=== PATIENT | female | born 1985 | race Caucasian/White ===

== ENCOUNTER 2022-12-10 06:38 | Day surgery (SDC) | payer MEDICAID, SELFPAY ==
[2022-12-10 07:00] VITALS: BMI 22.2
[2022-12-10 07:10] VITALS: BP 101/70; PULSE 63; RESP 16; TEMP 36.3; O2SAT 100
[2022-12-10] MEDS: 0.9 % SODIUM CHLORIDE 500 ML 50 ML IV (07:18)
--- NOTE | 2022-12-10 08:01 | W.PM.PROCNOT ---
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 Post lesioning injection of 2 mL each of 0.25% Marcaine and 2% lidocaine with Depo-Medrol 40mg. 0.5 to 1 mL injected at each site IV in place yes If Intravenous fluids: NS at KVO Anesthesia local 2% lidocaine Anesthesia Other: MAC Timeout process compliant After informed consent obtained. Patient brought to the procedure room placed in the prone position skin overlying the area was prepped and draped in a sterile fashion using betadine. 25 gauge needle was used to create a skin wheal over each of the targeted areas utilizing 2% lidocaine. A rhizotomy needle with a 10 mm active tip was inserted over each of the anesthetized areas and directed towards four different areas in the distribution of the lateral cutaneous branches of the iliohypogastric nerve, accomplished under fluoroscopic guidance. After encountering the same we had positive sensory stimulation, negative motor stimulation was noted. lesions were then created. Post lesioning, steroid solution was injected needles removed. Patient was transferred to recovery room in stable condition to be discharged home after meeting criteria. Anesthesia: MAC Surgeon: Sharona Thompson Condition: stable
[2022-12-10] MEDS: METHYLPREDNISOLONE ACETATE 40 MG/ML VIAL INJ (08:07)
[2022-12-10] MEDS: LIDOCAINE HCL 2% 400 MG/20 ML MDV 15 ML INJ (08:08)
[2022-12-10] MEDS: BUPIVACAINE HCL 0.25% PF 25 MG/10 ML VIAL INJ (08:09)
[2022-12-10 08:18] VITALS: BP 94/66; PULSE 65; RESP 20; TEMP 36.3; O2SAT 99
[2022-12-10 08:22] VITALS: BP 103/67; PULSE 54; RESP 20; O2SAT 100
== END 2022-12-10 08:54 | disposition home or self-care (01) ==
PROVIDERS: Visit Provider Anesthesiology Pain Medicine
DX: G57.81 Other specified mononeuropathies of right lower limb (principal)
CPT/HCPCS: 64640; 77002; J1030; J2704

== ENCOUNTER 2023-01-16 08:56 | Outpatient (OUT) | payer MEDICAID, SELFPAY ==
--- NOTE | 2023-01-16 09:41 | PM.CN ---
Consult Note: HPI Data of Consult Patient: known to practice within the last 3 years Consult date: 01/16/23 Requesting Physician: LOYD FORTUNE NP Primary Care Provider: Non-Staff Physician, MD Consult Narrative Narrative: Patient is here for f/u of right [facility] RFA done on 12/10/22. She had 80% relief of pain with increased fx for after procedure and continued through today. Pain is in SI area. Still has nerve pain right leg, but states it is much improved. No new sensorimotor sx or bowel or bladder issues. No adverse medication SE. Medications assist patient with better ability to perform ADLs. cc:: CC: LOYD FORTUNE NP Review of Systems ROS Status of ROS 10 or more systems reviewed and unremarkable except as noted in history and below Musculoskeletal Reports: back pain PFSH PFS Medical History (Updated 01/16/23 @ 09:57 by LOYD FORTUNE NP) Surgical History Meds Home Medications and Allergies Home Medications Medication Instructions Recorded Confirmed Type baclofen 10 mg tablet 10 mg PO BID 12/04/22 12/10/22 History erenumab-aooe 70 mg/mL mg subcut .MONTH 12/04/22 History subcutaneous auto-injector (Aimovig Autoinjector) gabapentin 600 mg tablet 600 mg PO TID 12/04/22 12/10/22 History oxcarbazepine 300 mg tablet 150 mg PO .HS 12/04/22 12/10/22 History tizanidine 4 mg tablet 4 mg PO .HS 12/04/22 12/10/22 History tramadol 50 mg tablet 50 mg PO TID PRN pain 12/04/22 12/10/22 History Allergies Allergy/AdvReac Type Severity Reaction Status Date / Time adhesive Allergy Verified 12/10/22 07:03 Exam Constitutional Documenting provider has reviewed patient's vital signs: yes Common normals: no apparent distress, average body habitus, oriented x3, no limitations, healthy appearing, alert and well nourished General appearance: cooperative, comfortable and well developed Orientation/consciousness: Yes awake, Yes oriented to person, Yes oriented to place and Yes oriented to time HENMT Common normals: normocephalic and moist oral mucous membranes Respiratory Common normals: normal respiratory effort, no retractions and no use of accessory muscles Effort & inspection: able to speak in complete sentences and symmetric chest movement Back & Pelvis Lumbar spine/lower back: ROM limited, paraspinal muscle tenderness and paraspinal muscle spasm Other: negative vinicio mild facet loading pain lumbar area muscle strength 4/5 bilat with intact sensation, right side sensation slightly decreased Assessment and Plan Assessment and Plan (1) Lumbar radiculopathy: (2) Muscle spasm: Plan f/u in 3 months refill gabapentin narcan rx
== END 2023-01-16 08:57 | disposition home or self-care (01) ==
LOC: PM 08:57
PROVIDERS: Visit Provider Nurse Practitioner
DX: M54.16 Radiculopathy, lumbar region (principal); M62.838 Other muscle spasm
CPT/HCPCS: G0463

== ENCOUNTER 2023-04-17 07:54 | Outpatient (OUT) | payer MEDICAID, SELFPAY ==
--- NOTE | 2023-04-17 08:16 | PM.CN ---
Consult Note: HPI Data of Consult Patient: known to practice within the last 3 years Requesting Physician: Randi Potts NP Primary Care Provider: Non-Staff Physician, MD Consult Narrative Reason for consult: F/u Narrative: Emily Valiente a pleasant 37 year old female presents for evaluation and management of chronic pain. Today neck pain is 5/10 and experiencing numbness/tingling/weakness in right arm. Patient has been following with Dr Arambula post lumbar fusion and has PT ordered through him, is going to try massage and dry needling. Patient has not been able to tolerate daytime 300mg gabapentin due to brain fog and it interferes with work. Patient follows with neurology. cc:: CC: Randi Potts NP Review of Systems ROS Status of ROS 10 or more systems reviewed and unremarkable except as noted in history and below Musculoskeletal Reports: back pain and neck pain PFSH PFSH Medical History Low back pain ?M54.50 - Low back pain, unspecified (ICD-10) Neck pain ?M54.2 - Cervicalgia (ICD-10) Numbness and tingling ?R20.0 - Anesthesia of skin (ICD-10) ?R20.2 - Paresthesia of skin (ICD-10) Surgical History H/O breast augmentation ?Z98.82 - Breast implant status (ICD-10) H/O: hysterectomy ?Z90.710 - Acquired absence of both cervix and uterus (ICD-10) Hx of laparoscopy ?Z98.890 - Other specified postprocedural states (ICD-10) S/P T&A (status post tonsillectomy and adenoidectomy) ?Z90.89 - Acquired absence of other organs (ICD-10) Status post lumbar surgery ?Z98.890 - Other specified postprocedural states (ICD-10) Meds Home Medications and Allergies Home Medications Medication Instructions Recorded Confirmed Type baclofen 10 mg tablet 10 mg PO BID 12/04/22 12/10/22 History erenumab-aooe 70 mg/mL mg subcut .MONTH 12/04/22 History subcutaneous auto-injector (Aimovig Autoinjector) gabapentin 600 mg tablet 600 mg PO TID 12/04/22 12/10/22 History oxcarbazepine 300 mg tablet 150 mg PO .HS 12/04/22 12/10/22 History tizanidine 4 mg tablet 4 mg PO .HS 12/04/22 12/10/22 History tramadol 50 mg tablet 50 mg PO TID PRN pain 12/04/22 12/10/22 History Allergies Allergy/AdvReac Type Severity Reaction Status Date / Time adhesive Allergy Verified 12/10/22 07:03 Exam Constitutional Documenting provider has reviewed patient's vital signs: yes Common normals: no apparent distress, oriented x3, healthy appearing, alert and well nourished General appearance: cooperative HENMT Common normals: normocephalic, hearing grossly normal bilaterally and moist oral mucous membranes Head and scalp: normocephalic Eye Common normals: PERRL Pupil: PERRL Neck & C-Spine Common normals: full ROM General: normal visual inspection Cervical spine: paracervical muscle tenderness and trapezius muscle tenderness Other: right arm intermittent radiculopathy and numbness tingling Chest Common normals: inspection of chest normal Respiratory Common normals: normal respiratory effort, no retractions and no use of accessory muscles Back & Pelvis Lumbar spine/lower back: ROM limited, pain with ROM and straight leg raise negative bilaterally Sacroiliac joints: SI joint(s) abnormal Extremity Common normals: normal to inspection and full ROM Other: negative bilateral fabers, gaenslens, thigh thrust Extremity image (back): 1. muscle tightness and pain 2. muscle tightness and pain Neuro Common normals: oriented x3, CN's II-XII intact bilaterally, moves all extremities, no focal motor deficits, no sensory deficits noted and deep tendon reflexes 2+ bilaterally Sensorium/orientation: alert Motor exam: strength 5/5 throughout and no movement abnormalities noted Psych Common normals: mental status grossly normal, thought process normal, cooperative, affect normal, speech normal and activity/motor behavior normal Speech: normal speech Thought process: normal thought process Results Additional Findings Additional findings: I have checked an [facility] report on this patient today and there are no aberrancies noted in the prescribing history.?? A drug screen was completed and reviewed within the last year, and if there has not been a drug screen completed we ordered one today to monitor higher risk, state monitored pain medication use. As part of providing excellent, safe, comprehensive care, the following was completed at our patient's visit: 1. A medication reconciliation and review to ensure accurate knowledge of current/active medications, including asking our patients to inform us about any [id number] medications or herbal remedies/nutritional supplements/alternative remedies. 2. A review to specifically ensure our patients have had annual screening for: elevated body mass index (BMI), tobacco use, screening for depression, and screening for unhealthy alcohol use. When screening is concerning, patients are provided with education and the specific recommendation to discuss the concerning health issue and treatment options with their primary care provider. Assessment and Plan Assessment and Plan (1) Cervical radiculopathy: (2) Cervical spondylosis: (3) Cervical paraspinal muscle spasm: (4) Lumbar radiculopathy: (5) Muscle spasm: (6) Numbness and tingling: Plan change gabapenting to 100-200mg during the day, 300mg causes brain fog continue gabapentin 600mg HS cervical xray ordered continue PT through Dr Arambula f/u with Dr Thompson for cervical TPIs and discuss cervical injection therapy
== END 2023-04-17 07:55 | disposition home or self-care (01) ==
PROVIDERS: Visit Provider Nurse Practitioner
DX: M47.22 Other spondylosis with radiculopathy, cervical region (principal); M62.838 Other muscle spasm; M54.16 Radiculopathy, lumbar region; R20.0 Anesthesia of skin; R20.2 Paresthesia of skin
CPT/HCPCS: G0463

== ENCOUNTER 2023-04-29 13:50 | Outpatient (OUT) | payer MEDICAID, SELFPAY ==
--- NOTE | 2023-04-29 | CONS_ITS ---
CONSULTATION DATE: ??04/29/2023 HISTORY:? She returns today complaining of severe pain in her neck and shoulder area on the right side with pain radiating to her right upper extremity.? She reports this occurred initially approximately six months, but it has gradually increased to the point where it has altered her quality life, level of functioning and, at times, her sleep pattern.? She describes at least 7/10 pain, sharp in character, increased with activities such as lifting maneuvers, pushing, pulling maneuvers.? She reports progressive weakness of her right upper extremity, difficulty in opening jars of food and describes pain that wakes her up at night frequently.? She denies any change in her bowel and bladder habits and does report progressive numbness in her right upper extremity. EXAM:? Her examination is notable for patient having 3/5 strength involving the right deltoid, biceps and brachioradialis.? She has diminished right side reflex.? She had a positive Spurling?s sign.? She has no signs consistent with myelopathy involving the upper extremities.? This is also associated with myofascial spasm of the right trapezius and cervical paravertebral muscles.? IMPRESSION:? Our impression is patient appears to have pain secondary to right C5-C6 radiculopathy, unclear etiology.? RECOMMENDATIONS:? I recommend she undergo a cervical ARSEN without contrast to determine if there is a mechanical source for her signs and symptoms consistent with radiculopathy. As part of providing excellent, safe, comprehensive care, the following was completed at our patient's visit: 1. A medication reconciliation and review to ensure accurate knowledge of current/active medications, including asking our patients to inform us about any [id number] medications or herbal remedies/nutritional supplements/alternative remedies. 2. A review to specifically ensure our patients have had annual screening for: elevated body mass index (BMI, see intake chart for exact total), tobacco use, screening for depression, and screening for unhealthy alcohol use.? When screening is concerning, patients are provided with education and the specific recommendation to discuss the concerning health issue and treatment options with their primary care provider. PATRICK
--- NOTE | 2023-04-29 | CONS_ITS ---
PROCEDURE DATE: ??04/29/2023 PROCEDURE:? Trigger point injection right trapezius C5 and 6 level, in the office. PREOPERATIVE DIAGNOSIS:? Pain secondary to spasm right trapezius. POSTOPERATIVE DIAGNOSIS:? ?Pain secondary to spasm right trapezius. SOLUTION USED FOR INJECTION:? 2 mL of 2% lidocaine, 2 mL of 0.25% Marcaine and 10 mg of Kenalog, total of 5 mL, and 2 mL used for the injection at the site. IMMEDIATE COMPLICATIONS:? None. PROCEDURE:? After informed consent was obtained from the patient, placed in the sitting position.? Skin overlying the area was prepped with alcohol.? A 25 gauge 1 ?? needle was inserted over the most tender area, partially helped being identified by the patient, coinciding with the area of most severe spasm, at approximately C5 and C6 level.? Needle was inserted in this area, directed toward the same.? After having a positive twitch response, we injected a total of 2 mL of solution.? No indication of intravascular or intraneural or intrathecal needle tip placement or injection was noted throughout the procedure.? Patient reports reduction in pain symptoms post procedurally, once the needle was removed.? Transferred and discharged after meeting criteria. PATRICK
== END 2023-04-29 13:51 | disposition home or self-care (01) ==
LOC: PM 13:50
PROVIDERS: Visit Provider Anesthesiology Pain Medicine
DX: M62.838 Other muscle spasm (principal); M54.89 Other dorsalgia
CPT/HCPCS: 20552

== ENCOUNTER 2023-07-01 14:06 | Outpatient (OUT) | payer MEDICAID, SELFPAY ==
--- NOTE | 2023-07-01 | CONS_ITS ---
CONSULTATION DATE: 07/01/2023 TO: Dr. Ruben Barrientos CHIEF COMPLAINT: Includes bilateral lower back pain, leg pain worse on the right side. HISTORY: She reports the pain as being 5-7/10 pain, sharp in character, with a deep aching component, increased with activities such as standing, walking and performing transitioning maneuvers. She feels most comfortable in the semi- recumbent position. CURRENT MEDICATION: Includes gabapentin 300 mg in the morning and 600 mg at h.s., tizanidine 4 mg at h.s., baclofen 10 mg b.i.d., tramadol 50 mg t.i.d. and Trileptal 150 at h.s. She reports these medicines do improve her quality of life, level of functioning and sleep pattern, and she denies any significant side effects with the use of the same. EXAM: Notable for patient having hypoesthesia along the right L5 dermatome, weakness of the right EHL. Straight leg raise was equivocally positive at approximately 90 degrees. No clinical signs consistent with myelopathy with no involvement of the lower extremities. IMPRESSION: Our impression is patient with chronic pain secondary to post laminectomy syndrome, lumbar area, with right L5 radiculopathy. RECOMMENDATIONS: I recommend lumbar spine films with flexion/extension views. Will see the patient back in the office after she undergoes the imaging study. May consider possibly a lumbar epidural steroid injection versus possible consideration for spinal column stimulation. As part of providing excellent, safe, comprehensive care, the following was completed at our patient's visit: 1. A medication reconciliation and review to ensure accurate knowledge of current/active medications, including asking our patients to inform us about any [id number] medications or herbal remedies/nutritional supplements/alternative remedies. 2. A review to specifically ensure our patients have had annual screening for: elevated body mass index (BMI, see intake chart for exact total), tobacco use, screening for depression, and screening for unhealthy alcohol use. When screening is concerning, patients are provided with education and the specific recommendation to discuss the concerning health issue and treatment options with their primary care provider. PATRICK
== END 2023-07-01 14:07 | disposition home or self-care (01) ==
LOC: PM 14:06
PROVIDERS: Visit Provider Anesthesiology Pain Medicine
DX: M54.50 Low back pain, unspecified (principal); Z98.1 Arthrodesis status; M96.1 Postlaminectomy syndrome, not elsewhere classified; M54.16 Radiculopathy, lumbar region
CPT/HCPCS: 72114; G0463

== ENCOUNTER 2023-07-01 15:18 | Outpatient (OUT) | payer MEDICAID, SELFPAY ==
--- OUTSIDE RECORDS SUMMARY | 2023-07-01 15:25 | XMS_ITS | CCD ---
Author Name Unknown Address [address] [place] [address] Organization [facility] Care Team Providers Care Engineering Faculty Name Role Phone UNKNOWN, PROVIDER Admitting Unavailable UNKNOWN, PROVIDER Attending Unavailable UNKNOWN, PHYSICIAN Referring Unavailable UNKNOWN, PHYSICIAN Primary Care Unavailable Nancy Barrientos Primary Care Provider KATHY GHOSH Attending Unavailable NANCY BARRIENTOS Primary Care Unavailable Nancy BARRIENTOS Primary Care Physician [phone] Ric Tinoco Unavailable JOSEFA ., DR HERB Melgar Attending Unavailable RIVERO ., DR HERB Melgar Admitting Unavailable RIVERO ., DR HERB Melgar Consulting Unavailable MISC, DR MURRIETA Primary Care Unavailable LAKSHMIPATHY ., SHARONA Consulting Fide vailable MISC, DR MURRIETA Primary Care Unavailable LAKSHMIPATHY ., SHARONA Admitting Fide vailable LAKSHMIPATHY ., SHARONA Attending Fide vailable HALKER .LOYD Consulting Unavailable KELLY ., ISAURA Consulting Unavailable RIVERO ., DR HERB Melgar Attending Unavailable MISC, DR MURRIETA Primary Care Unavailable RIVERO ., DR HERB Melgar Admitting Unavailable LAKSHMIPATHY ., SHARONA Consulting Fide vailable MISC, DR MURRIETA Primary Care Unavailable LAKSHMIPATHY ., NARAMAYAATH Admitting Fide vailable LAKSHMIPATHY ., NARSIERRA Attending Fide vailable LAKSHMIPATHY ., SHARONA Consulting Fide vailable RIVERO ., DR HERB Melgar Admitting Unavailable MISC, DR MURRIETA Primary Care Unavailable KELLY ., ISAURA Consulting Unavailable RIVERO ., DR HERB Melgar Attending Unavailable RIVERO ., DR HERB Melgar Attending Unavailable RIVERO ., DR HERB Melgar Admitting Unavailable MISC, DR MURRIETA Consulting Unavailable MISC, DR MURRIETA Primary Care Unavailable RIVERO ., DR HERB Melgar Consulting Unavailable JOSEFA ., DR HERB Melgar Attending Unavailable MISShantel, DR MURRIETA Primary Care Unavailable JOSEFA ., DR HERB Melgar Consulting Unavailable JOSEFA ., DR HERB Melgar Admitting Unavailable ROBIN .ISAURA Consulting Unavailable ALYSIA PARK Attending Unavailable Filiberto Cramer Attending Unavailable Gudimella, Matt Attending Unavailable Gurick, Matt Attending Unavailable Nancy BARRIENTOS Attending Unavailable Anitra BARRIENTOS Attending Unavailable Gudimella, Matt Admitting Unavailable Gudimella, Matt Attending Unavailable Gudimella, Matt Referring Unavailable LEONEL, EBER JOSE Admitting Unavailable LEONEL EBER JOSE Attending Unavailable Lakshmipathy, Narendranath Admitting Unava ilable Lakshmipathy, Narendranath Attending Unava ilable Lakshmipathy, Narendranath Referring Unava ilable Filiberto Cramer Admitting Unavailable Filiberto Cramer Attending Unavailable Allergies Allergy Classification Reported Allergen(s) Allergy Type Date of Onset Reaction(s) Facility (1 source) Adhesive agent; Translations: [Unknown] Propensity to adverse reactions (disorder) [address] [facility] Repository (9 sources) Adhesive Tape; Translations: [Tape] Drug allergy Eruption of skin (disorder) [facility] (12 sources) Latex; Translations: [Latex] Drug allergy Unknown [facility] [employer] Other (3 sources) adhesive bandages Propensity to adverse reactions rash [facility] [employer] Other (1 source) Adhesive agent Drug allergy (disorder) 6 [facility] Repository Medications Current Medications Medication Drug Class(es) Dates Sig (Normalized) Sig (Original) Aimovig 140 MG/ML (2 sources) Aimovig 140 MG/M L as directed Subcutaneous Active Aimovig SureClick 70 mg/mL subcutaneous solution (1 source) Start: 02-01-2019 inject 140 mg by subcutaneous injection every month Aimovig SureClick 70 mg/mL subcutaneous solution 140 mg, SubCutaneous, qMonth, Refills(s) 0 Start Date: 02/01/19 Status: Ordered baclofen 10 mg oral tablet (7 sources) gamma-Aminobutyr ic Acid-ergic Agonist Start: 10-18-2021 take 0.5-1 tablets by mouth once daily baclofen 10 mg Tab See Instructions, take 1/2 - 1 tab po during the day, Refills(s) 0 Start Date: 10/18/21 Status: Ordered bifidobacterium infantis 4 mg oral capsule (4 sources) Start: 07-11-2020 take 1 capsule by mouth once daily Align 4 mg oral capsule 4 mg = 1 cap(s), Oral, Daily, Take after completing the Antibiotics course, # 28 cap(s), Refills(s) 0, Pharmacy: [id number], 168, cm, 07/11/20 8:27:00 EST, Height/Length Dosing, 64.1, kg, 07/11/20 8:27:00 EST, Weight Dosing Start Date: 07/11/20 Status: Ordered cetirizine hydrochloride 10 mg oral tablet (4 sources) Histamine-1 Receptor Antagonist Start: 11-23-2020 take 1 tablet by mouth once daily cetirizine 10 mg Tab 10 mg = 1 tab(s), Oral, Daily, # 90 tab(s), Refills(s) 1, Pharmacy: [id number], 168, cm, 07/11/20 8:27:00 EST, Height/Length Dosing, 64.1, kg, 07/11/20 8:27:00 EST, Weight Dosing Start Date: 11/23/20 Status: Ordered cyclobenzaprine hydrochloride 10 mg oral tablet (2 sources) Muscle Relaxant Start: 06-19-2018 take 1 tablet by mouth three times daily as needed for muscle spasms cyclobenzaprine 10 mg Tab 10 mg = 1 tab(s), Oral, TID, PRN for spasm, # 30 tab(s), Refills(s) 0, Muscle pain Start Date: 06/19/18 Status: Ordered 1 ml erenumab-aooe 70 mg/ml auto-injector (8 sources) Start: 02-01-2019 inject 140 mg by subcutaneous injection every month Aimovig SureClick 70 mg/mL subcutaneous solution 140 mg, SubCutaneous, qMonth, Refills(s) 0 Start Date: 02/01/19 Status: Ordered Aimovig 140 MG/M L as directed Subcutaneous Active Erenumab-aooe (AIMOVIG) 140 MG/ML SOAJ (1 source) Erenumab-aooe (AIMOVIG) 140 MG/ML SOAJ every 30 days 0 Active estradiol 1 mg oral tablet (12 sources) Estrogen Start: 06-19-20 take 1 tablet by mouth once daily Estrace 1 mg Tab 1 mg = 1 tab(s), Oral, Daily Start Date: 06/19/18 Status: Ordered fluticasone propionate 0.05 mg/actuat metered dose nasal spray (3 sources) Corticosteroid Start: 06-20-20 End: 06-27-19 take 2 spray(s) nasal route once daily Flonase 0.05 mg/inh Capulin 2 spray(s), Nasal, Daily for 7 day(s), 16 gm, Refill(s) 0, each nostril, [facility], 168, cm, 06/20/23 18:45:00 EST, Height/Length Dosing, 58.4, kg, 06/20/23 18:45:00 EST, Weight Dosing Start Date: 06/20/23 Stop Date: 06/27/23 Status: Ordered gabapentin 600 mg oral tablet (12 sources) Anti-epileptic Agent Start: 11-09-19 gabapentin 600 mg Tab Refills(s) 0 Start Date: 11/08/21 Status: Ordered Gabapentin 600 m g TAKE 2 TABLETS THREE TIMES A DAY Active take 4 capsules by m outh three times daily gabapentin (NEURONTIN) 300 MG capsule Ta ke 1,200 mg by mouth 3 times daily. 0 Active lamoTRIgine 25 mg oral tablet (2 sources) Mood Stabilizer, Anti-epileptic Agent Start: 08-22-2020 take 1 tablet by mouth twice daily Lamictal 25 mg Tab 25 mg = 1 tab(s), Oral, BID, # 180 tab(s), Refills(s) 1, Pharmacy: [employer] [facility], 168, cm, 07/11/20 8:27:00 EST, Height/Length Dosing, 64.1, kg, 07/11/20 8:27:00 EST, Weight Dosing Start Date: 08/22/20 Status: Ordered Start: 11-30-2019 take 1 tablet by jaden once daily lamoTRIgine (LAMICTAL) 25 MG tablet Take 25 mg by mouth daily 0 11/30/2019 Active loratadine 10 mg oral tablet (2 sources) Start: 02-23-2020 take 1 tablet by mouth once daily loratadine 10 mg Tab 10 mg = 1 tab(s), Oral, Daily, # 90 tab(s), Refills(s) 1, Pharmacy: [facility], 168, cm, 02/23/20 10:40:00 EDT, Height/Length Dosing, 65, kg, 02/23/20 10:40:00 EDT, Weight Dosing Start Date: 02/23/20 Status: Ordered Start: 11-30-2019 take 1 capsule by mo [facility] once daily loratadine (CLARITIN) 10 MG capsule Take 10 mg by mouth daily 0 11/30/2019 Active omeprazole 20 mg delayed release oral capsule (3 sources) Proton Pump Inhibitor take 1 capsule by mouth every twenty-four hours Omeprazole 20 MG 1 capsule Orally Once a day Active ondansetron 4 mg oral tablet (1 source) Serotonin-3 Receptor Antagonist Start: 07-10-19 21 take 1 tablet by mouth every six hours as needed for nausea ondansetron 4 mg Tab 4 mg = 1 tab(s), Oral, q6hr, PRN Nausea/Vomiting, # 10 tab(s), Refills(s) 0, Pharmacy: [facility], 168, cm, 07/10/20 13:24:00 EST, Height/Length Dosing, 62.1, kg, 07/10/20 13:24:00 EST, Weight Dosing Start Date: 07/10/20 Status: Ordered OXcarbazepine 300 mg oral tablet (12 sources) Anti-epileptic Agent Start: 11-25-19 21 take 1-2 tablets by mouth once daily at bedtime Trileptal 300 mg Tab See Instructions, take 1-2 tabs po qhs, Refills(s) 0 Start Date: 11/24/20 Status: Ordered Start: 02-22-2020 take 2 tablets by [facility] every twelve hours Trileptal 300 MG 2 tablet Orally Twice a day for 14 day(s) Feb, Active take 300 mg by mouth twice daily OXcarbazepine (TRILEPTAL PO) Take 300 mg by mouth 2 times daily 0 Active oxybutynin chloride 5 mg oral tablet (8 sources) Cholinergic Muscarinic Antagonist Start: 05-26-2020 take 1 tablet by mouth twice daily as needed oxybutynin 5 mg Tab 5 mg = 1 tab(s), Oral, BID, PRN for urinary discomfort, # 60 tab(s), Refills(s) 2, Pharmacy: [facility], 168, cm, 05/26/20 16:32:00 EST, Height/Length Dosing, 64, kg, 05/26/20 16:32:00 EST, Weight Dosing Start Date: 05/26/20 Status: Ordered take 1 tablet by mouth once jayce y oxybutynin (DITROPAN-XL) 5 MG extended release tablet Take 5 mg by mouth daily 0 Active pantoprazole 40 mg delayed release oral tablet (1 source) Proton Pump Inhibitor Start: 02-06-2021 take 1 tablet by mouth once daily 30 minutes before breakfast Protonix 40 mg Tab-EC 40 mg = 1 tab(s), Oral, Daily, Take 30 minutes before breakfast, # 30 tab(s), Refills(s) 5, Pharmacy: [facility], 168, cm, 07/11/20 8:27:00 EST, Height/Length Dosing, 64.1, kg, 07/11/20 8:27:00 EST, Weight Dosing Start Date: 02/06/21 Status: Ordered pregabalin 150 mg oral capsule (1 source) Start: 11-24-2020 take 1 capsule by mouth three times daily Lyrica 150 mg Cap 150 mg = 1 cap(s), Oral, TID, # 60 cap(s), Refills(s) 0 Start Date: 11/24/20 Status: Ordered Protonix 40 mg Tab-EC (3 sources) Start: 02-06-2021 take 1 tablet by mouth once daily 30 minutes before breakfast Protonix 40 mg Tab-EC 40 mg = 1 tab(s), Oral, Daily, Take 30 minutes before breakfast, # 30 tab(s), Refills(s) 5, Pharmacy: [facility], 168, cm, 07/11/20 8:27:00 EST, Height/Length Dosing, 64.1, kg, 07/11/20 8:27:00 EST, Weight Dosing Start Date: 02/06/21 Status: Ordered rimegepant 75 mg disintegrating oral tablet (1 source) Start: 01-25-2021 take 1 tablet under the tongue every other day Nurtec ODT 75 mg oral tablet, disintegrating 75 mg = 1 tab(s), SubLingual, Every other day, Refills(s) 0 Start Date: 01/25/21 Status: Ordered SUMAtriptan 100 mg oral tablet (4 sources) Serotonin-1b and Serotonin-1d Receptor Agonist Start: 11-24-2020 Imitrex 100 mg Tab See Instructions, 1 tab(s) at onset of migraine, may repeat in 2hrs, no more than 2 times a day and 2 times a wk prn migraine, Refills(s) 0 Start Date: 11/24/20 Status: Ordered tiZANidine 4 mg oral capsule (7 sources) Central alpha-2 Adrenergic Agonist Start: 10-18-2021 take 0.5-1 tablets by mouth once daily at bedtime Zanaflex 4 mg oral capsule See Instructions, take 1/2 - 1 tab po qhs, Refills(s) 0 Start Date: 10/18/21 Status: Ordered traMADol hydrochloride 50 mg oral tablet (3 sources) Opioid Agonist Start: 06-24-2023 take 1 tablet by mouth three times daily traMADOL 50 mg Tab 50 mg = 1 tab(s), Oral, TID, Refills(s) 0 Start Date: 06/24/23 Status: Ordered take 1 tablet by mouth three nereyda es daily traMADol (ULTRAM) 50 MG tablet Take 50 mg by mouth 3 times daily. 0 Active Completed/Discontinued Medications Medication Drug Class(es) Dates Sig (Normalized) Sig (Original) valACYclovir 1000 mg oral tablet (4 sources) Herpesvirus Nucleoside Analog DNA Polymerase Inhibitor, Herpes Simplex Virus Nucleoside Analog DNA Polymerase Inhibitor, Herpes Zoster Virus Nucleoside Analog DNA Polymerase Inhibitor Start: 01-18-2022 take 1 tablet by mouth twice daily valacyclovir 1 g Tab 1 gram = 1 tab(s), Oral, BID, # 60 tab(s), Refills(s) 2, Pharmacy: [facility], 168, cm, 11/08/21 9:50:00 EDT, Height/Length Dosing, 65.4, kg, 11/08/21 9:50:00 EDT, Weight Dosing Start Date: 01/18/22 Status: Ordered Start: 11-23-2020 take 1 tablet by jaden th twice daily valacyclovir 1 g Tab 1 gram = 1 tab(s), Oral, BID, # 60 tab(s), Refills(s) 2, Pharmacy: [facility], 168, cm, 07/11/20 8:27:00 EST, Height/Length Dosing, 64.1, kg, 07/11/20 8:27:00 EST, Weight Dosing Start Date: 11/23/20 Status: Ordered Start: 11-23-2020 take 1 tablet by jaden th twice daily valacyclovir 1 g Tab 1 gram = 1 tab(s), Oral, BID, # 60 tab(s), Refills(s) 2, Pharmacy: [facility], 168, cm, 07/11/20 8:27:00 EST, Height/Length Dosing, 64.1, kg, 07/11/20 8:27:00 EST, Weight Dosing Start Date: 11/23/20 Status: Ordered Problems Active Problems Problem Classification Problem Date Documented Da te Episodic/Chronic Esophageal disorders (18 sources) Gastroesophageal reflux disease; Translations: [Gastroesophageal reflux disease without esophagitis] 02-01-2019 Chronic Headache; including migraine (16 sources) Migraine; Translations: [Migraine variants] 03-31-2020 Chronic Intestinal infection (8 sources) Bacterial overgrowth syndrome 08-07-2020 Episodic Miscellaneous mental health disorders (8 sources) Chronic insomnia 08-17-2019 Chronic Nausea and vomiting (2 sources) Nausea 07-10-2020 Episodic Nonmalignant breast conditions (3 sources) Fibrocystic disease of breast; Translations: [Diffuse cystic mastopathy of right breast] Chronic Nonspecific chest pain (9 sources) Chest wall pain; Translations: [Atypical chest pain] 07-06-2019 Episodic Other acquired deformities (3 sources) Spondylolisthesis L5/S1 level; Translations: [Spondylolisthesis, lumbosacral region] Episodic Other acquired deformities (3 sources) Lumbar spondylolisthesis; Translations: [Spondylolisthesis, lumbar region] Episodic Other diseases of bladder and urethra (8 sources) 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 Other female genital disorders (3 sources) Dyspareunia due to non-psychogenic cause in the female; Translations: [Other specified dyspareunia] Chronic Other gastrointestinal disorders (2 sources) Abdominal bloating 07-11-2020 Episodic Other gastrointestinal disorders (16 sources) Alteration in bowel elimination 06-27-2020 Episodic Other gastrointestinal disorders (8 sources) Chronic constipation with overflow 08-07-2020 Episodic Other gastrointestinal disorders (2 sources) Diarrhea 07-10-2020 Episodic Other gastrointestinal disorders (8 sources) Fecal soiling co-occurrent and due to fecal incontinence 06-27-2020 Episodic Other gastrointestinal disorders (2 sources) Incontinence of feces 07-11-2020 Episodic Other nervous system disorders (3 sources) Chronic pain; Translations: [Other chronic pain] Chronic Other nervous system disorders (4 sources) Other specified mononeuropathies of right lower limb; Translations: [OTH SPEC MONONEUROPATH RT LOW LIMB] Onset: 3 Chronic Other nervous system disorders (5 sources) Other chronic pain; Translations: [OTHER CHRONIC PAIN] Onset: 2 Chronic Other nervous system disorders (8 sources) Sensory disorder of smell and/or taste 03-31-2020 Episodic Other nutritional; endocrine; and metabolic disorders (8 sources) 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 Other screening for suspected conditions (not mental disorders or infectious disease) (5 sources) Thyroid function tests abnormal; Translations: [Abnormal results of thyroid function studies] Onset: 3 Episodic Other skin disorders (7 sources) Foot callus 11-08-2021 Episodic Other upper respiratory disease (3 sources) Allergic rhinitis; Translations: [Allergic rhinitis, unspecified] Onset: 4 Chronic Other upper respiratory infections (16 sources) Acute frontal sinusitis 05-26-2020 Episodic Otitis media and related conditions (1 source) Acute secretory otitis media; Translations: [Other acute nonsuppurative otitis media, left ear] Onset: 3 Episodic Prolapse of female genital organs (3 sources) Uterine prolapse; Translations: [Uterovaginal prolapse, unspecified] Chronic Residual codes; unclassified (3 sources) History of elective breast augmentation; Translations: [Breast implant status] Chronic Residual codes; unclassified (8 sources) Chill 03-31-2020 Episodic Residual codes; unclassified (3 sources) History of hysterectomy for benign disease; Translations: [Acquired absence of both cervix and uterus] Episodic Residual codes; unclassified (3 sources) Family history of breast cancer; Translations: [Family history of malignant neoplasm of breast] Episodic Residual codes; unclassified (3 sources) Family history of malignant neoplasm of gastrointestinal tract; Translations: [Family history of malignant neoplasm of digestive organs] Episodic Residual codes; unclassified (3 sources) History of lumbar discectomy; Translations: [Other specified postprocedural states] Episodic Residual codes; unclassified (1 source) Other specified postprocedural states; Translations: [OTH SPECIFIED POSTPROCEDURAL STATES] Onset: 3 Episodic Residual codes; unclassified (1 source) Patient encounter status; Translations: [Other specified health status] Onset: 4 Episodic Residual codes; unclassified (1 source) Body mass index 20-24 - normal; Translations: [Body mass index (BMI) 21.0-21.9, adult] Onset: 4 Episodic Spondylosis; intervertebral disc disorders; other back problems (20 sources) Displacement of lumbar intervertebral disc without myelopathy; Translations: [Degeneration of lumbosacral intervertebral disc] Onset: 2 06-27-2020 Chronic Spondylosis; intervertebral disc disorders; other back problems (20 sources) Lumbar disc prolapse with radiculopathy; Translations: [Spinal stenosis of lumbar region] Onset: 1 Resolved: 2 06-27-2020 Episodic Thyroid disorders (3 sources) Thyrotoxicosis, unspecified without thyrotoxic crisis or storm; Translations: [Hyperthyroidism] Onset: 4 Chronic Unclassified (6 sources) Body mass index 20-24 - normal 05-26-2020 Unclassified (4 sources) LOW BACK PAIN, UNSPECIFIED; Translations: [LOW BACK PAIN, UNSPECIFIED] Onset: 2 Unclassified (2 sources) Patient encounter status 06-24-2023 Urinary tract infections (8 sources) Urinary tract infectious disease 05-26-2020 Episodic Viral infection (8 sources) Herpes simplex 02-01-2019 Episodic Past or Other Problems Problem Classification Problem Date Documented Da te Episodic/Chronic Other acquired deformities (2 sources) Spondylolisthesis, lumbosacral region; Translations: [Spondylolisthesis at L5-S1 level M43.17] Onset: 04-17-2021 Resolved: 12-28-2021 Episodic Pathological fracture (1 source) Pathological fracture, other site, initial encounter for fracture; Translations: [PATH FX OTH SITE INITIAL ENCOUNTER] Onset: 03-10-2022 Episodic Unclassified (1 source) Exposure to 2019 novel coronavirus; Translations: [Contact with and (suspected) exposure to COVID19] Unclassified (8 sources) None (qualifier value) 12-11-2012 Unclassified (16 sources) Onset: 09-23-2004 Resolved: 03-09-2013 12-29-2014 Comment on above: pi Unclassified (1 source) LOW BACK PAIN, UNSPECIFIED; Translations: [LOW BACK PAIN, UNSPECIFIED] Onset: 06-11-2022 Results Test Name Value Interpretation Reference Range Facility Physician Referralon 024 Physician Referral [id number] [facility] Consent for Treatmenton Consent for Treatment [id number]#[id number] [facility] US Thyroidon 06-27-2023 US Thyroid Exam Date/Time: 06/27/2023 07:55 EST Reason for Exam: Thyrotoxicosis, unspecified without thyrotoxic crisis or storm;Hyperthyroidi sm Report IMPRESSION: 6 X 3 X 4 MM RIGHT LOBE ANTERIOR UPPER POLE NODULE. 3 X 2 X 4 MM RIGHT LOBE POSTERIOR UPPER POLE NODULE. 3.9 X 2.4 X 2.1 CM LEFT LOBE POLE NODULE. CLINICAL HISTORY: Hyperthyroidism, Thyrotoxicosis, unspecified without thyrotoxic crisis or storm COMPARISONS: None available. FINDINGS: Biplanar images were obtained. The right lobe measures 5.3 cm x 1.4 cm x 1.8 cm with a volume of 6.8 cm3. The left lobe measures 5.2 cm x 2.1 cm x 2.4 cm with a volume of 13.6 cm3. The isthmus measures 0.5 cm. In the right lobe, anterior lower pole, a 6 x 3 x 4 mm mixed cystic and solid, anechoic, wider than tall, smoothly marginated, noncalcified nodule is identified (TR 2). In the right lobe, posterior upper pole a 3 x 2 x 4 mm mixed cystic and solid, anechoic, wider than tall, smoothly marginated, noncalcified nodule is identified (TR 2). In the left lobe, mid pole, a 3.9 x 2.4 x 2.1 cm mixed cystic and solid, isoechoic, taller than wide, ill-defined, noncalcified nodule is identified (TR 4). Ordering Provider: Matt Bass FINAL REPORT Dictated: 06/27/2023 11:42 am Cassius Ernst MD Signed (Electronic Signature): 06/27/2023 11:42 am Signed by: Cassius Ernst MD Transcribed by: YAMINI Technologist: FAISAL Price [facility] Family Medicine Office/Clini c Noteon 06-24-2023 Family Medicine Office/Clinic Note Chief Complaint Discuss thyroid HPI Staff Patient here today to discuss thyroid. Patient seen in convenient care 06/20/2023 for feeling of lump in throat, ear pain and had a abnormal thyroid exam. TSH: 0.07 mcIU/mL Low (06/21/23 08:25:00) Concerns: no new concerns Health Maintenance: Colonoscopy: 07/21/2020 Pap: hx of hysterectomy, pelvic exam utd Last Labs: 06/21/2023 History of Present Illness Jessica Griffiths is a 37-year-old female presenting today to discuss her thyroid. She was seen in convenient care on 06/20/2023 for feeling a lump in the throat, also experiencing ear pain. She had an abnormal thyroid exam. Her TSH was low at 0.07 mIU/L. She has no new concerns. The patient reports an earache, sore throat, and dental pain. She went to the dentist to rule out a tooth infection on 06/17/2023 She had a cavity filled today. The sore throat has been intermittent for weeks. She feels pain when she swallows. The pain radiates to her neck and underneath her ear. She has post nasal drip and a constant cough throughout the day. She denies sinus congestion, ear congestion, fullness, or crackling in her ears. She has a history of seasonal allergies. She has itchy eyes, runny eyes, and runny nose when there is temperature change. She denies changes in her hearing. She denies pain on swallowing both solids and liquids. She denies mumbling in her voice. She denies fever or chills. She experiences being dizzy while driving. She has neck and back issues. The dizzy spell was a week ago. She has hot flashes. She denies diarrhea or loose stools. She denies excessive sweating. She has a history of anxiety. She has heart palpitations. She denies burning in her chest or deep to the breast bone or in the upper abdomen. She was taking a magnesium supplement to help with her anxiety. She only took it for a week because she started getting a metallic taste in her mouth. She is not on any medication for acid reflux. She has tried ibuprofen for her back but discontinued due to GI tract issues while taking it. She was prescribed Flonase at urgent care. Review of Systems PHQ Score Initial Depression Screen Score: 1 SCORE Negative except as stated in HPI. Physical Exam Vitals & Measurements HR: 89(Peripheral) BP: 98/72 SpO2: 97% HT: 66 in HT: 168 cm WT: 59.4 kg WT: 130.68 lb BMI: 21.05 General: Alert. Not in acute cardiopulmonary distress. Well hydrated, well developed, well nourished. Respiratory: Spontaneous non-labored respirations. Symmetric chest expansion. Equal bilateral aeration. Clear to auscultation. No wheezing, rales or rhonchi. Cardiovascular: Heart sounds normal. No thrills. Regular rate and rhythm, no murmurs, rubs or gallops. Radial pulse 2+ bilaterally. Posterior tibial pulse 2+ bilaterally. Dorsalis pedis pulse 2+ bilaterally. Ear, Nose and Throat: There is a lump noted in the left inferior portion of the neck and it is tender and soft. Skin: Hands are slightly depigmented. Assessment/Plan 1. Hyperthyroidism (E05.90: Thyrotoxicosis, unspecified without thyrotoxic crisis or storm) I have ordered an EKG, an ultrasound of the thyroid, and a lipid panel. 2. Screening for endocrine, nutritional, metabolic and immunity disorder (Z13.29: Encounter for screening for other suspected endocrine disorder) I have ordered urinalysis. 3. Allergic rhinitis (J30.9: Allergic rhinitis, unspecified) I advised the patient to use Flonase 1 spray each nostril, 2 times a day. I have educated her on the proper use. 4. Non-smoker (Z78.9: Other specified health status) I advised to continue to refrain from smoking. 5. BMI 21.0-21.9, adult (Z68.21: Body mass index [BMI] 21.0-21.9, adult) I advised to follow healthy nutrition and lifestyle practices. I encourage to hold on physical activity at this time. Encounter for screening for diseases of the blood and blood-forming organs and certain disorders involving the immune mechanism (Z13.0: Encounter for screening for diseases of the blood and blood-forming organs and certain disorders involving the immune mechanism) Encounter for screening for nutritional disorder (Z13.21: Encounter for screening for nutritional disorder) Encounter for screening for other metabolic disorders (Z13.228: Encounter for screening for other metabolic disorders) Palpitations (R00.2: Palpitations) 37 minutes were spent reviewing the chart, talking to patient, face to face, dictating a note, placing orders and reviewing the chart. Portions of this record may have been created with voice recognition artificial intelligence software, specifically [employer]Span, KOWN and or Im[employer]. Substitutions may have occurred due to the inherent limitations of voice recognition and artificial intelligence software. Documentation services were performed after patient or guardian consented to allow [employer] to record this visit. D (more content not included)... Normal [facility] Comment on above: Result Comment: Elec tronically Signed By: Matt Bass MD\.br\Date and Time Signed: 06/24/23 18:25 EST\.br\Electronically Co-Signed By: Jaja Alex\.br\Date and Time Co-Signed: 06/24/23 18:04 EST T3 Freeon 06-22-2023 Free T3 [Mass/Vol] 4.2 pg/mL Invalid Interpretation Code 2.0-4.4 [facility] Comment on above: Result Comment: Perf ormed at: [facility] [address] [id number] PhD Mahnaz Conklin Performed By: #### 2 484167, 13368438, 3233604, 5437029 ####[address] [place] [address] Auto Diffon 06-21-2023 Basophils/100 WBC (Bld) 0.3 % Normal 0.0-2.0 [facility] Comment on above: Order Comment: Order Added by Discern Expert. Performed By: #### 2 846984, 6549522, 1864955, 25747505, 7255963 ####[facility] [address] [place] [address] Basophils/Leukocytes Auto (Bld) [Pure # fraction] 0.0 E9/L Normal 0.0-0.2 [facility] Comment on above: Order Comment: Order Added by Discern Expert. Performed By: #### 2 067101, 6783748, 8284072, 19171886, 5823548 ####[address] [address] Eosinophils/100 WBC (Bld) 0.6 % Normal 0.0-8.0 [facility] Comment on above: Order Comment: Order Added by Jay Expert. Performed By: #### 2 226942, 8494303, 5790407, 43965080, 3302047 ####[address] [address] Eosinophils/Leukocytes Auto (Bld) [Pure # fraction] 0.0 E9/L Normal 0.0-0.5 [facility] Comment on above: Order Comment: Order Added by Discern Expert. Performed By: #### 2 540101, 5033984, 0379270, 87533954, 7949069 ####[address] [address] Lymphocytes/100 WBC (Bld) 20.6 % Normal 14.0-50.0 [facility] Comment on above: Order Comment: Order Added by Discern Expert. Performed By: #### 2 534710, 6048823, 1370643, 18940361, 8581046 ####[address] [address] Lymphocytes/Leukocytes Auto (Bld) [Pure # fraction] 1.7 E9/L Normal 1.0-4.0 [facility] Comment on above: Order Comment: Order Added by Discern Expert. Performed By: #### 2 084655, 8136334, 8222297, 54495368, 7358259 ####[facility] [address] [place] [address] Monocytes/100 WBC (Bld) 6.6 % Normal 4.0-14.0 [facility] Comment on above: Order Comment: Order Added by Discern Expert. Performed By: #### 2 009361, 9501346, 2432321, 38825615, 8330795 ####[address] [place] [address] Monocytes/Leukocytes Auto (Bld) [Pure # fraction] 0.5 E9/L Normal 0.2-1.0 [facility] Comment on above: Order Comment: Order Added by Discern Expert. Performed By: #### 2 464053, 8365570, 0382174, 67421834, 4867926 ####[address] [address] Neutrophils/100 WBC (Bld) 71.9 % Normal 36.0-75.0 [facility] Comment on above: Order Comment: Order Added by Discern Expert. Performed By: #### 2 071558, 5330987, 1833159, 38432870, 9478731 ####[address] [address] Neutrophils/Leukocytes Auto (Bld) [Pure # fraction] 5.8 E9/L Normal 2.0-7.5 [facility] Comment on above: Order Comment: Order Added by Discern Expert. Performed By: #### 2 402773, 2899310, 3114907, 14646904, 8124639 ####[address] [place] [address] CBC w/ Auto Diffon 3 Erythrocyte distribution width (RBC) [Ratio] 12.6 % Normal 10.9-14.2 [facility] Comment on above: Performed By: #### 2 444254, 6642527, 6315187, 78385001, 8519752 ####[address] [address] Hematocrit (Bld) [Volume fraction] 37.8 % Normal 34.0-46.0 [facility] Comment on above: Performed By: #### 2 059600, 9938811, 0982767, 59406848, 8892096 ####[facility] [address] [place] [address] Hemoglobin (Bld) [Mass/Vol] 12.7 g/dL Normal 12.0-16.0 [facility] Comment on above: Performed By: #### 2 717249, 3207689, 8434207, 52405699, 8175244 ####[address] [address] MCH (RBC) [Entitic mass] 32.2 pg Normal 27.0-34.0 [facility] Comment on above: Performed By: #### 2 657787, 5979669, 8488999, 87474881, 3102694 ####[address] MCHC (RBC) [Mass/Vol] 33.8 g/dL Normal 31.4-36.0 [facility] Comment on above: Performed By: #### 2 923239, 0606885, 4272307, 60259355, 3207657 ####[address] [address] MCV (RBC) [Entitic vol] 95.5 fL Normal 80.0-100.0 [facility] Comment on above: Performed By: #### 2 831309, 3185010, 0832814, 83474150, 0874773 ####[address] [place] [address] Platelet mean volume (Bld) [Entitic vol] 8.5 fL Normal 6.4-10.8 [facility] Comment on above: Performed By: #### 2 816721, 3068536, 8832359, 95167063, 5296396 ####[address] [address] Platelets (Bld) [#/Vol] 303.0 E9/L Normal 150.0-500.0 [facility] Comment on above: Performed By: #### 2 391424, 5077497, 1801144, 02483085, 9559171 ####[facility] [address] [place] [address] RBC (Bld) [#/Vol] 4.0 E12/L Low 4.3-5.9 [facility] Comment on above: Performed By: #### 2 601263, 5759906, 9912109, 35942522, 4485018 ####[facility] [address] [place] [address] WBC corrected for nucl RBC Auto (Bld) [#/Vol] 8.1 E9/L Normal 4.0-11.0 [facility] Comment on above: Performed By: #### 2 369922, 0103251, 5839590, 09145981, 7412244 ####[facility] [address] [place] [address] CHEMISTRYOrdered By: SYSTEM SYSTEM on 06-21-2023 Albumin [Mass/Vol] 3.8 g/dL Normal 3.3 - 5.0 gm/dL Remisol Chem Albumin/Globulin [Mass ratio] 1.3 {ratio} Normal 1.1 - 2.2 Remisol Chem Alk Phos 83 [iU]/d Normal 21 - 98 Int._Unit/L Remisol Chem ALT 10 [iU]/d Normal 6 - 46 Int._Unit/L Remisol Chem Anion gap [Moles/Vol] 10 mmol/L Normal 6 - 16 mEq/L R emisol Chem AST 15 [iU]/d Normal 5 - 43 Int._Unit/L Remisol Chem Bili Total 0.5 mg/dL Normal 0.0 - 1.1 mg/dL Remisol Chem Calcium [Mass/Vol] 8.7 mg/dL Low 8.9 - 11. 1 mg/dL Remisol Chem Chloride [Moles/Vol] 103 mmol/L Normal 101 - 1 11 mmol/L Remisol Chem CO2 [Moles/Vol] 29 mmol/L Normal 21 - 31 mmol/L Remisol Chem Creatinine [Mass/Vol] 0.6 mg/dL Normal 0.5 - 1.3 mg/dL Remisol Chem eGFR mL/min/1.73 m2 Normal >=59mL/min/1. 73 m2 Remisol Chem Free T4 [Mass/Vol] 1.37 ng/dL Normal 0.58 - 1. 64 ng/dL Remisol Chem Globulin (S) [Mass/Vol] 3.0 g/dL Normal 1.4 - 4.0 gm/dL Remisol Chem Glucose [Mass/Vol] 84 mg/dL Normal 55 - 199 mg/dL Remisol Chem Potassium [Moles/Vol] 3.9 mmol/L Normal 3.5 - 5.3 mmol/L Remisol Chem Protein [Mass/Vol] 6.8 g/dL Normal 6.0 - 7.8 gm/dL Remisol Chem Sodium [Moles/Vol] 138 mmol/L Normal 135 - 145 mmol/L Remisol Chem T3 Uptake 46.6 % Normal 32.0 - 48.4 % Remisol Cori m T4 [Mass/Vol] 18.8 ug/dL High 4.6 - 9.1 mcg/dL Remisol Chem TSH Qn 0.07 m[IU]/L Low 0.34 - 5.60 mcIU/mL Remisol Chem Urea nitrogen [Mass/Vol] 13 mg/dL Normal 5 - 21 mg/dL Remisol Chem Urea nitrogen/Creatinine [Mass ratio] 22 mg/mg High 10 - 20 Remisol Chem CMPon 06-21-2023 Albumin [Mass/Vol] 3.8 g/dL Normal 3.3-5.0 [facility] Comment on above: Performed By: #### 2 547400, 6253985, 5577402, 53525869, 2262601 ####[facility] [address] [place] [address] Albumin/Globulin [Mass ratio] 1.3 {ratio} Normal 1.1-2.2 [facility] Comment on above: Performed By: #### 2 041216, 3179862, 0920750, 88823012, 9568507 ####[facility] [address] [place] [address] Alk Phos 83 Int._Unit/L Normal 21-[address] [facility] Comment on above: Performed By: #### 2 372871, 5922466, 6696967, 96470942, 5083317 ####[facility] [address] [place] [address] ALT 10 Int._Unit/L Normal 6-[address] [facility] Comment on above: Performed By: #### 2 316618, 8405684, 9485954, 39469882, 1781336 ####[facility] [address] [place] [address] Anion gap [Moles/Vol] 10 mmol/L Normal 6-16 [facility] Comment on above: Performed By: #### 2 997648, 1999842, 9868542, 17883651, 5167739 ####[facility] [address] [place] [address] AST 15 Int._Unit/L Normal 5-[address] [facility] Comment on above: Performed By: #### 2 510145, 7906160, 4277982, 73641161, 7106698 ####[facility] [address] [place] [address] Bili Total 0.5 mg/dL Normal 0.0-1.1 [facility] Comment on above: Performed By: #### 2 857581, 0920744, 8389465, 44147488, 7249310 ####[facility] [address] [place] [address] BUN/Creat Ratio 22 No Units High 10-20 [facility] Comment on above: Performed By: #### 2 761282, 5219761, 8634005, 26183504, 9841290 ####[facility] [address] [place] [address] Calcium [Mass/Vol] 8.7 mg/dL Low 8.9-11.1 [facility] Comment on above: Performed By: #### 2 414583, 1971639, 0880513, 99627231, 5266372 ####[facility] [address] [place] [address] Chloride [Moles/Vol] 103 mmol/L Normal 101-111 [facility] Comment on above: Performed By: #### 2 973675, 6910310, 2494686, 90084002, 1581641 ####[facility] [address] [place] [address] CO2 [Moles/Vol] 29 mmol/L Normal 21-31 [facility] Comment on above: Performed By: #### 2 869417, 6226875, 5394409, 73554565, 0564520 ####[facility] [address] [place] [address] Creatinine [Mass/Vol] 0.6 mg/dL Normal 0.5-1.3 [facility] Comment on above: Performed By: #### 2 952239, 4770228, 2644723, 09515364, 0534693 ####[facility] [address] [place] [address] Globulin (S) [Mass/Vol] 3.0 g/dL Normal 1.4-4.0 [facility] Comment on above: Performed By: #### 2 282525, 5691701, 5160063, 30053904, 6041068 ####[facility] [address] [place] [address] Glucose [Mass/Vol] 84 mg/dL Normal 55-199 [facility] Comment on above: Performed By: #### 2 661564, 1181041, 8844357, 88741713, 7502767 ####[facility] [address] [place] [address] Potassium [Moles/Vol] 3.9 mmol/L Normal 3.5-5.3 [facility] Comment on above: Performed By: #### 2 686214, 2355803, 3110926, 14338956, 2028599 ####[facility] [address] [place] [address] Protein [Mass/Vol] 6.8 g/dL Normal 6.0-7.8 [facility] Comment on above: Performed By: #### 2 836956, 9797055, 6858655, 36703133, 7320980 ####[facility] [address] [place] [address] Sodium [Moles/Vol] 138 mmol/L Normal 135-145 [facility] Comment on above: Performed By: #### 2 803916, 1956999, 7385744, 85105589, 5140252 ####[facility] [address] [place] [address] Urea nitrogen [Mass/Vol] 13 mg/dL Normal 5-21 [facility] Comment on above: Performed By: #### 2 380288, 1122823, 7348415, 76024623, 0297112 ####[facility] [address] [place] [address] Consent for Treatmenton 05-25 Consent for Treatment [id number]#[id number] Normal [facility] Free T4on 06-21-2023 Free T4 [Mass/Vol] 1.37 ng/dL Normal 0.58-1.64 [facility] Comment on above: Performed By: #### 2 998058, 8215099, 3038866, 00141199, 9222171 ####[facility] [address] [place] [address] HEMATOLOGYOrdered By: SYSTEM SYSTEM on 06-21-2023 Basophils/100 WBC (Bld) 0.3 % Normal 0.0 - 2.0 % [facility] HemeAutoSS Basophils/Leukocytes Auto (Bld) [Pure # fraction] 0.0 E9/L Normal 0.0 - 0.2 E9/L [facility]eAuto[facility] Eosinophils/100 WBC (Bld) 0.6 % Normal 0.0 - 8.0 % [facility] HemeAuto[facility] Eosinophils/Leukocytes Auto (Bld) [Pure # fraction] 0.0 E9/L Normal 0.0 - 0.5 E9/L [facility] Lymphocytes/100 WBC (Bld) 20.6 % Normal 14.0 - 50.0 % [facility] HemeAutoSS Lymphocytes/Leukocytes Auto (Bld) [Pure # fraction] 1.7 E9/L Normal 1.0 - 4.0 E9/L [facility]eAuto[facility] Monocytes/100 WBC (Bld) 6.6 % Normal 4.0 - 14.0 % [facility] HemeAutoSS Monocytes/Leukocytes Auto (Bld) [Pure # fraction] 0.5 E9/L Normal 0.2 - 1.0 E9/L [facility] Neutrophils/100 WBC (Bld) 71.9 % Normal 36.0 - 75.0 % [facility]eAuto[facility] Neutrophils/Leukocytes Auto (Bld) [Pure # fraction] 5.8 E9/L Normal 2.0 - 7.5 E9/L [facility] Heme[facility] HEMATOLOGYOrdered By: Petra Rowan on 06-21-2023 Erythrocyte distribution width (RBC) [Ratio] 12.6 % Normal 10.9 - 14.2 % [facility] Hematocrit (Bld) [Volume fraction] 37.8 % Normal 34.0 - 46.0 % [facility] Hemoglobin (Bld) [Mass/Vol] 12.7 g/dL Normal 12.0 - 16.0 gm/dL [facility] MCH (RBC) [Entitic mass] 32.2 pg Normal 27.0 - 34.0 pg [facility] MCHC (RBC) [Mass/Vol] 33.8 g/dL Normal 31.4 - 36.0 gm/dL [facility] MCV (RBC) [Entitic vol] 95.5 fL Normal 80.0 - 100.0 fL [facility] Platelet mean volume (Bld) [Entitic vol] 8.5 fL Normal 6.4 - 10.8 fL [facility] Platelets (Bld) [#/Vol] 303.0 E9/L Normal 150.0 - 500.0 E9/L [facility] RBC (Bld) [#/Vol] 4.0 E12/L Low 4.3 - 5.9 E12/L [facility] WBC corrected for nucl RBC Auto (Bld) [#/Vol] 8.1 E9/L Normal 4.0 - 11.0 E9/L [facility] Physician Orderon 06-21-2023 Physician Order [id number]#1.00TIFF Normal [facility] T3 Uptakeon 06-21-2023 T3 Uptake 46.6 % Normal 32.0-48.4 [facility] Comment on above: Performed By: #### 2 157005, 11401341, 3058665, 8378716 ####[facility] [address] [place] [address] T4 Totalon 06-21-2023 T4 18.8 microgram/dL High 4.6-9.1 [facility] Comment on above: Performed By: #### 2 956195, 39362097, 0702466, 1248331 ####[facility] [address] [place] [address] TSHon 06-21-2023 TSH Qn 0.07 m[IU]/L Low 0.34-5.60 [facility] Comment on above: Performed By: #### 2 949495, 52788065, 8473530, 4673289 ####[facility] [address] [place] [address] eGFRon 06-21-2023 GFR/1.73 sq M.predicted among non-blacks MDRD (S/P/Bld) [Vol rate/Area] mL/min/{1.73_m2} Normal >=59 [facility] Comment on above: Order Comment: Order added by Discern Expert. Performed By: #### 2 306320, 2258303, 7317937, 70302374, 3713124 ####[facility] [address] [place] [address] Family Medicine Office/Clini c Noteon 06-20-2023 Family Medicine Office/Clinic Note Chief Complaint left ear pain, swollen cheeks, facial pain, sore throat, lump in throat HPI Staff Jessica is a 37 year old female here for left ear pain that radiates into jaw and lump in throat, sore throat, cheeks are swollen, dizzy symptoms for a few weeks, getting worse was seen at the dentist for a tooth infection and they did not find anything History of Present Illness I have reviewed and verified the staff HPI to be accurate for this encounter. Portions of this record have been created with voice recognition software. Occasional wrong-word or ?dwhej-j-sglt? substitutions may have occurred due to the inherent limitations of voice recognition software. 37 yo female presents today with cc of left-sided ear pain. Patient states she has had intermittent left-sided ear pain which will radiate into the left side of her jaw. States this has been intermittent and ongoing for about 1 month. States it has been at least a month. States on occasion her cheeks seem to be swollen. She does note that she has noticed also a lump of the left side of the anterior throat. She states she was seen by her dentist earlier this week and they did not find anything as she was concerned maybe she had a dental infection. States that everything checked out okay there. She states she has not follow-up with primary care provider in regards to the symptoms in the last month as she states has been very difficult to get into see her primary care provider. Patient does know she has been working with her [employer] in regards to blood test and lab work related to fluctuations in hormones in regards to seeing if she is premenopausal or postmenopausal. States she has not had any recent lab work otherwise. She denies any sore throat or throat pain but states the lump of the left anterior throat states the left-sided ear pain and discomfort which she states has been more constant especially more irritating in the last 4 days. She denies any drainage from the left ear denies any runny stuffy nose cough or cold-like symptoms or recent illness. She denies any abdominal pain nausea vomiting or diarrhea. She did note an episode of dizziness in which she was wondering if is related to her ear discomfort and she states she felt her equilibrium was off. States it felt like she was almost drunk with room spinning dizziness. States that it only lasted a few seconds and resolved she denies any chest pain shortness of breath or difficulty breathing with dizziness denies any blurred vision double vision change in vision slurred speech weakness numbness or tingling of the extremities. She denies any fluctuations in regards to hot cold or weight loss states maybe she has lost some weight. But again is seeing [employer] in regards to these fluctuations denies any history of thyroid disease and does not believe she has ever had her thyroid checked. Denies any fever or chills with her onset of symptoms in the last several weeks. She has no other concerns at this time Review of Systems PHQ Score Initial Depression Screen Score: 0 SCORE ROS negative unless otherwise stated in HPI. Physical Exam Vitals & Measurements T: 36.7 ?C(Oral) HR: 96(Peripheral) BP: 122/76 SpO2: 98% HT: 66 in HT: 168 cm WT: 58.4 kg WT: 128.48 lb BMI: 20.69 General: Well developed, well nourished, in no acute distress Eyes: Bilateral conjunctiva within normal limits no injection Ears: Bilateral TMs are within normal limits no erythema or bulging. There is clear fluid behind bilateral TMs. Bilateral external auditory canals are within normal limits no erythema or edema Nose: No deformity, discharge, inflammation, or lesions Mouth: Moist mucous membranes. Uvula is midline. No tonsillar erythema or exudate. No signs of peritonsillar abscess. No trismus or drooling. Neck: Neck is supple. No palpable cervical lymphadenopathy. Trachea is midline. Concern for thyroid nodule of the left anterior neck with palpation of the thyroid. No acute tenderness. Area of concern is soft to touch seems to be freely movable. No overlying redness no red streaking or concern for cellulitis or infection. Lungs: Lung sounds are clear bilaterally. No wheezing rhonchi or crackles on exam Cardio: S1, S2, regular rhythm. No murmurs gallops or rubs Abdomen: not assessed Musculoskeletal: not assessed Extremity: not assessed Neurologic: not assessed Skin: No rashes, ulcerations, or suspicious lesions Mental Status: Alert and oriented x3. Normal mood and affect Assessment/Plan 1. Acute effusion of left ear (H65.192: Other acute nonsuppurative otitis media, left ear) Discussed with patient that there is no acute infection in regards to appearance of left eardrum. There is clear fluid behind the left TM and which may try something such as Flonase twice daily over the next 7 days to see if this helps eustachian tube dysfunction and fluid within the ears. Patient not have any acute viral like syndrome recently which I would like for her to follow closely with prim (more content not included)... Normal [facility] Comment on above: Result Comment: Elec tronically Signed By: Shoaib BRADSHAW, Filiberto Pete.br\Date and Time Signed: 06/20/23 21:08 EST Patient Educationon 06-20-20 Patient Education ENT Otitis Media With Effusion, Adult Otitis media with effusion (OME) is inflammation and fluid (effusion) in the middle ear without having an ear infection. The middle ear is the space behind the eardrum. The middle ear is connected to the back of the throat by a narrow tube (eustachian tube). Normally the eustachian tube drains fluid out of the middle ear. A swollen eustachian tube can become blocked and cause fluid to collect in the middle ear. OME often goes away without treatment. Sometimes OME can lead to hearing problems and recurrent acute ear infections (acute otitis media). These conditions may require treatment. What are the causes? OME is caused by a blocked eustachian tube. This can result from: ? Allergies. ? Upper respiratory infections. ? Enlarged adenoids. The adenoids are areas of soft tissue located high in the back of the throat, behind the nose and the roof of the mouth. They are part of the body's natural defense system (immune system). ? Rapid changes in pressure, like when an airplane is descending or during scuba diving. In some cases, the cause of this condition is not known. What are the signs or symptoms? Common symptoms of this condition include: ? A feeling of fullness in your ear. ? Decreased hearing in the affected ear. ? Fluid draining into the ear canal. ? Pain in the ear. In some cases, there are no symptoms. How is this diagnosed? A health care provider can diagnose OME based on signs and symptoms of the condition. Your provider will also do a physical exam to check for fluid behind the eardrum. During the exam, your health care provider will use an instrument called an otoscope to look in your ear. Your health care provider may do other tests, such as: ? A hearing test. ? A tympanogram. This is a test that shows how well the eardrum moves in response to air pressure in the ear canal. It provides a graph for your health care provider to review. ? A pneumatic otoscopy. This is a test to check how your eardrum moves in response to changes in pressure. It is done by squeezing a small amount of air into the ear. How is this treated? Treatment for OME depends on the cause of the condition and the severity of symptoms. The first step is often waiting to see if the fluid drains on its own in a few weeks. Home care treatment may include: ? Wmog-yrd-wqwsznd pain relievers. ? A warm, moist cloth placed over the ear. Severe cases may require a procedure to insert tubes in the ears (tympanostomy tubes) to drain the fluid. Follow these instructions at home: ? Take jhhw-ppu-gofqxpk and prescription medicines only as told by your health care provider. ? Keep all follow-up visits. Contact a health care provider if: ? You have pain that gets worse. ? Hearing in your affected ear gets worse. ? You have fluid draining from your ear canal. ? You have dizziness. ? You develop a fever. Get help right away if: ? You develop a severe headache. ? You completely lose hearing in the affected ear. ? You have bleeding from your ear canal. ? You have sudden and severe pain in your ear. These symptoms may represent a serious problem that is an emergency. Do not wait to see if the symptoms will go away. Get medical help right away. Call your local emergency services (911 in the [place] Do not drive yourself to the hospital. Summary ? Otitis media with effusion (OME) is inflammation and fluid (effusion) in the middle ear without having an ear infection. ? A swollen eustachian tube can become blocked and cause fluid to collect in the middle ear. ? Treatment for OME depends on the cause of the condition and the severity of symptoms. ? Many times, treatment is not needed because the fluid drains on its own in a few weeks. ? Sometimes OME can lead to hearing problems and recurrent acute ear infections (acute otitis media), which may require treatment. This information is not intended to replace advice given to you by your health care provider. Make sure you discuss any questions you have with your health care provider. Document Revised: 10/04/2021 Document Reviewed: 10/04/2021 [employer] Patient Education ? 2022 [employer] Endocrinology Thyroid Nodule A thyroid nodule is an isolated growth of thyroid cells that forms a lump in the thyroid gland. The thyroid gland is a butterfly-shaped gland found in the lower front of the neck. It sends chemical messengers (hormones) through the blood to all parts of the body. These hormones are important in regulating body temperature and helping the body use energy. Thyroid nodules are common. Most are not cancerous (are benign). You may have one nodule or several nodules. There are different types of thyroid nodules. They include nodules that: ? Grow and fill with fluid (thyroid cysts). ? Produce too much thyroid hormone (hot nodules or hyperthy (more content not included)... Normal [facility] MRI Spine Cervical w/o Contr elvira 06-10-2023 MRI Spine Cervical w/o Contrast Exam Date/Time: 06/09/2023 08:41 EST Reason for Exam: CERVICAL RADICULOPATHY Report IMPRESSION: THERE ARE MILD DEGENERATIVE CHANGES OF THE CERVICAL SPINE. EXAM: MRI Spine Cervical w/o Contrast DATE: 06/09/2023 7:58 AM CLINICAL HISTORY: CERVICAL RADICULOPATHY. CERVICAL RADICULOPATHY TECHNIQUE: Multiplanar multisequence images of cervical spine were obtained without IV contrast. COMPARISON: Cervical spine x-rays from 04/28/2023 FINDINGS: There is straightening of the lordotic curvature of the cervical spine which may be secondary to positioning versus muscle spasm. There is no acute fracture. There is preservation of the vertebral body heights. There is intervertebral disc desiccation and disc space narrowing at every level. The bone marrow signal is within normal limits. The cervical cord is normal in course and caliber without signal abnormality. The visualized portions of the posterior fossa are within normal limits There is no prevertebral soft tissue swelling. C2-C3: There is no disc herniation, central canal narrowing or neural foraminal narrowing. C3-C4: There is no disc herniation, central canal narrowing or neural foraminal narrowing. C4-C5: There is no disc herniation, central canal narrowing or neural foraminal narrowing. C5-C6: There is a less than 2 mm disc bulge flattening the thecal sac without significant narrowing of central canal. There is no neural foraminal narrowing C6-C7: There is a 2 mm disc bulge flattening the thecal sac without central canal. There is mild bilateral facet arthrosis and mild bilateral neural foraminal narrowing. Report C7-T1: There is no disc herniation, central canal narrowing or neural foraminal narrowing. Ordering Provider: Sharona Vasquez FINAL REPORT Dictated: 06/10/2023 10:16 am Jose Tatum MD, V. Signed (Electronic Signature): 06/10/2023 10:16 am Signed by: Jose Tatum MD, V. Transcribed by: YAMINI Technologist: CAPRI Technical Comments None Normal [facility] Consent for Treatmenton 05-23 Consent for Treatment [id number] B3#1.00TIFF Normal [facility] RAD - MRI Screening Formon 1 08-10-2022 RAD - MRI Screening Form [id number] 607#1.00TIFF [facility] Physician Orderon 06-03-2023 Physician Order [id number] 97#1.00TIFF [facility] Consent for Treatmenton Consent for Treatment [id number] 29#1.00TIFF [facility] Physician Orderon 04-28-2023 Physician Order [id number] 45#1.00TIFF [facility] XR Spine Cervical 4 or 5 Vie wson 04-28-2023 XR Spine Cervical 4 or 5 Views Exam Date/Time: 04/28/2023 10:01 EST Reason for Exam: Neck pain Report IMPRESSION: Mild to moderate degenerative change, cervical spine. Loss of cervical lordosis May BE secondary to degenerative change, patient positioning, or muscle spasm. CLINICAL HISTORY: Neck pain COMPARISON: NONE AVAILABLE FINDINGS: Routine five views of the cervical spine spine. Loss cervical lordosis with mild reversal, apex at C4-C5. Diffuse disc space narrowing C6-C7. No prevertebral soft tissue swelling. Neuroforamina are maintained bilaterally. No fracture, dislocation, bone lesion. Ordering Provider: , FINAL REPORT Dictated: 04/28/2023 4:28 pm Signer Cassius REES Signed (Electronic Signature): 04/28/2023 4:28 pm Signed by: Cassius Ernst MD Transcribed by: YAMINI Technologist: DIPTI Technical Comments Radiation Dose: Ka,r in mGy = na DAP = na Normal [facility] EMG Electromyographyon 01-21 EMG Electromyography [id number] 629#1.00CD:127 Normal [facility] Consultation Noteon 01-16-20 Consultation Note [id number] 77#1.00CD:127 Normal [facility] Auth for Release of Medical Recordson 12-17-2022 Auth for Release of Medical Records [id number] EC#1.00CD:127 Normal [facility] Consultation Noteon 11-16-19 Consultation Note [id number] EB#1.00CD:127 Normal [facility] EMG Electromyographyon 10-17 EMG Electromyography [id number] 24#1.00CD:127 Normal [facility] Consultation Noteon 10-08-19 Consultation Note [id number] 45#1.00CD:127 Normal [facility] Consultation Noteon 07-31-19 Consultation Note [id number] D9#1.00CD:127 [facility] XR lumbar spine AP/LAT/FLX/E XTon 12-28-2021 XR lumbar spine AP/LAT/FLX/EXT [facility] [place] [address] XRay Report Signed Patient: Jessica Griffiths MR#: [id number] : 1985 Acct:[id number] Age/Sex: 36 / F ADM Date: 12/28/21 Loc: XD Room: Type: [facility] Attending Dr: Ric Tinoco MD Copies to: Ric Tinoco MD Ordering Provider: Ric Tinoco MD Date of Service: 12/28/21 XR/XR lumbar spine AP/LAT/FLX/EXT: M43.17 Lumbar spine 4 views Reason for exam: Low back pain with left-sided sciatica. COMPARISON: Lumbar spine 04/17/2021. FINDINGS: Hardware fixation involving the lumbosacral junction without change in alignment or hardware complication. Vertebral body and remaining disc space heights appear maintained. No pathological motion on flexion or extension views. XR/XR lumbar spine AP/LAT/FLX/EXT IMPRESSION: No evidence of hardware complication. Impression dictated by: Malik Jenkins Jr., D.OJanie12/28/2021 1:49 PM Dictation Location: [place] [address] Transcribed By: [facility] 12/28/21 1349 Dictated By: Malik Jenkins Jr, DO 12/28/21 1347 Signed By: 12/28/21 1349 [facility] CHEMISTRYOrdered By: SYSTEM SYSTEM on 12-03-2021 Free T4 [Mass/Vol] 0.66 ng/dL Normal 0.58 - 1. 64 ng/dL FT Remisol Glucose post fast [Mass/Vol] 90 mg/dL Normal 55 - 99 mg/dL [facility] Remisol TSH Qn 2.54 m[IU]/L Normal 0.34 - 5.60 mcIU/mL [facility] Remisol Reference Laboratory Testing Ordered By: Generated DomainUser on 07-13-2021 SARS-CoV-2 (COVID-19) RNA KEITH+probe Ql (Resp) Not detected Invalid Interpretation Code Not Detected [facility] [employer] Comment on above: Result Comment: This nucleic acid amplification test was developed and its performance characteristics determined by [employer]. Nucleic acid amplification tests include RT-PCR and TMA. This test has not been FDA cleared or approved. This test has been authorized by FDA under an Emergency Use Authorization (EUA). This test is only authorized for the duration of time the declaration that circumstances exist justifying the authorization of the emergency use of in vitro diagnostic tests for detection of SARS-CoV-2 virus and/or diagnosis of COVID-19 infection under section 564(b)(1) of the Act, 21 U.S.C. 360bbb-3(b) (1), unless the authorization is terminated or revoked sooner. When diagnostic testing is negative, the possibility of a false negative result should be considered in the context of a patient's recent exposures and the presence of clinical signs and symptoms consistent with COVID-19. An individual without symptoms of COVID-19 and who is not shedding SARS-CoV-2 virus would expect to have a negative (not detected) result in this assay. Performed at: [facility] [id number] PhD aMhnaz Conklin XR lumbar spine AP/LAT/FLX/E XTon 04-17-2021 XR lumbar spine AP/LAT/FLX/EXT [facility] [place] [address] [place] [address] XRay Report Signed Patient: Jessica Griffiths MR#: [id number] : 1985 Acct:[id number] Age/Sex: 35 / F ADM Date: 04/17/21 Loc: XD Room: Type: [facility] Attending Dr: Ric Tinoco MD Ordering Provider: Ric Tinoco MD Date of Service: 04/17/21 XR/XR lumbar spine AP/LAT/FLX/EXT: M43.16 Copies to: Ric Tinoco MD XR lumbar spine AP/LAT/FLX/EXT 04/17/2021 2:01 PM SIGNS AND SYMPTOMS: Follow-up lumbar fusion. Numbness in right foot. PROTOCOLS: Frontal, lateral, and flexion-extension views of the lumbar spine COMPARISON: 11/14/2020 FINDINGS: The alignment, development and bony structures are normal. There is posterior fusion hardware at L5-S1. There is no fracture or destructive lesion. Flexion and extension view show no pathologic movement. There is mild intervertebral disc height loss at T12-L1 and L1-L2. The sacrum and sacroiliac joints are normal. XR/XR lumbar spine AP/LAT/FLX/EXT IMPRESSION: Posterior fusion hardware is noted at L5-S1 without hardware complications or malalignment. Mild disc degenerative changes are noted at the thoracic lumbar junction. No fracture, subluxation, or pathologic movement. Impression dictated by: Low Payne M.D.04/17/2021 5:07 PM Dictation Location: [facility]IO[facility]-11 Transcribed By: ERIC 04/17/211706 Dictated By: Low Payne II, MD 04/17/211705 Signed By: 04/17/211706 [facility] Vital Signs Date Time Vital Sign Value Performing Clinician Facility 06-24-2023 13:49-0500 Blood Pressure Location Matt Gudimella [facility] 06-24-2023 13:49-0500 Diastolic blood pressure 72 mm[Hg] Matt Gudimella [facility] 06-24-2023 13:49-0500 Heart rate 89 /min Matt Gudimella [facility] 06-24-2023 13:49-0500 SaO2% (BldA) [Mass fraction] 97 % Matt Gudimella [facility] 06-24-2023 13:49-0500 Systolic blood pressure 98 mm[Hg] Matt Gudimella [facility] 06-20-2023 18:43-0500 Blood Pressure Location Filiberto Shoaib [facility] 06-20-2023 18:43-0500 Body temperature 98.06 [degF] Filiberto Cramer [facility] 06-20-2023 18:43-0500 Diastolic blood pressure 76 mm[Hg] Filiberto Cramer [facility] 06-20-2023 18:43-0500 Heart rate 96 /min Filiberto Cramer [facility] 06-20-2023 18:43-0500 SaO2% (BldA) [Mass fraction] 98 % Filiberto Cramer [facility] 06-20-2023 18:43-0500 Systolic blood pressure 122 mm[Hg] Filiberto Cramer [facility] 12-28-2021 11:20-0400 Body height 167.64 cm Ric Tinoco Other [employer] Other 12-28-2021 11:20-0400 Body mass index (BMI) [Ratio] 21.14 kg/m2 Ric Tinoco Other [employer] Other 12-28-2021 11:20-0400 Body weight 59.42 kg Ric Tinoco Other [employer] Other 04-17-2021 15:40-0400 Body height 167.64 cm Ric Tinoco Other [employer] Other 04-17-2021 15:40-0400 Body mass index (BMI) [Ratio] 21.14 kg/m2 Ric Tinoco Other [employer] Other 04-17-2021 15:40-0400 Body weight 59.42 kg Ric Tinoco Other [employer] Other 05-31-2020 15:50-0500 Body weight 63.96 kg [facility] [place] 05-31-2020 15:50-0500 BP Diastolic 79 mm[Hg] [facility] [place] 05-31-2020 15:50-0500 BP Systolic 107 mm[Hg] [facility] [place] 05-31-2020 15:50-0500 Pulse (Heart Rate) 67 /min [facility] [place] 05-31-2020 15:50-0500 Pulse Oximetry 100 % [facility] , [place] 05-31-2020 15:50-0500 Respiratory Rate 20 /min [facility] [place] Encounters Encounter Date Encounter Type Care Provider Facility Start: 07-29-2023 ambulatory Nancy BARRIENTOS Facil ity: [place] Start: 06-27-2023 ambulatory [facility] Start: 06-27-2023 End: 06-28-2023 ambulatory Matt Gudimella Facility[facility] Start: 06-27-2023 End: 06-27-2023 Patient encounter procedure Matt Gudimella [facility] Start: 06-24-2023 End: 06-25-2023 ambulatory Matt Gudimella Facility:[facility] Start: 06-24-2023 End: 06-24-2023 Patient encounter procedure Matt Gudimella [facility] Start: 06-21-2023 End: 06-22-2023 ambulatory Filiberto Cramer Facility[facility] Start: 06-21-2023 End: 06-21-2023 Patient encounter procedure Filiberto Cramer [facility] Start: 06-20-2023 End: 06-21-2023 ambulatory Filiberto Cramer Facility: [place] Start: 06-20-2023 End: 06-20-2023 Patient encounter procedure Filiberto Cramer [facility] Start: 06-09-2023 End: 06-10-2023 ambulatory Narendranath Lakshmipathy Facility:[facility] Start: 06-09-2023 End: 06-09-2023 Patient encounter procedure Narendranath Lakshmipathy [facility] Start: 05-07-2023 End: 05-07-2023 ambulatory ALYSIA PARK Not Available Start: 04-28-2023 ambulatory Anitra BARRIENTOS Facility: [facility] Start: 04-28-2023 End: 04-29-2023 ambulatory EBER CASTANEDA Facility:[facility] Start: 04-28-2023 End: 04-28-2023 Patient encounter procedure EBER BLACKWELLDerek CASTANEDA [facility] Start: 11-05-2022 End: 11-06-2022 ambulatory SHARONA VASQUEZ . Facility:[facility] Start: 10-22-2022 End: 10-22-[address] DOCTOR ALEJANDRE Facility:[facility] Start: 10-01-2022 End: 10-02-2022 ambulatory ISAURA KELLY . Facility:[facility] Start: 08-27-2022 End: 08-27-2022 ambulatory Ric Tinoco Other [facility] [employer] Other Start: 08-27-2022 Telephone encounter Ric Tinoco [facility] Start: 06-11-2022 End: 06-12-[address] HERB RIVERO . Facility:[facility] Start: 05-28-2022 End: 05-28-[address] HERB RIVERO . Facility:[facility] Start: 03-05-2022 End: 03-06-[address] HERB RIVERO . Facility:[facility] Start: 12-28-2021 End: 12-28-2021 ambulatory Ric Tinoco Other [employer] Other Start: 12-28-2021 Office outpatient visit 15 minutes Ric Tinoco [facility] Start: 12-03-2021 End: 12-03-2021 Patient encounter procedure Alysia Park [facility] Start: 11-08-2021 End: 11-09-[address] HERB RIVERO . Facility:[facility] Start: 07-13-2021 End: 10-11-2021 Patient encounter procedure Nancy BARRIENTOS [facility] Start: 04-17-2021 Office outpatient visit 15 minutes Ric GRIMES [facility] Start: 05-31-2020 End: 05-31-2020 Emergency department patient visit KATHY GHOSH [facility] Start: 05-31-2020 End: 05-31-2020 Emergency department patient visit Kathy Ghosh Work Phone: [facility] ED Comment on above: Chest wall pain (Brunilda michelet Dx) Start: 12-30-2018 End: 01-07-2019 Patient encounter procedure PROVIDER UNKNOWN Facility:[facility] Procedures Date Procedure Procedure Detail Performing Clinician Start: 06-12-2020 Local anesthetic sac ral epidural block Nancy BARRIENTOS Comment on above: @ [facility] per pain mgmt Start: 05-31-2020 Ecg routine ecg w/le ast 12 lds w/i&r KATHY GHOSH Start: 05-31-2020 Ecg routine ecg w/le ast 12 lds w/i&r Kathy Ghosh Work Phone: Start: 12-06-2019 Interbody fusion of lumbar spine by anterior approach Nancy BARRIENTOS Comment on above: [facility] Start: 06-19-2018 Removal of sebaceous cyst Nancy BARRIENTOS Comment on above: Right inner thigh Start: 06-23-2006 Augmentation mammoplasty Nancy BARRIENTOS laparoscopy 4 Nancy HYDE Comment on above: 2014 Dr. Redd- endo metriosis lumbar microdisectomy 5 Chrmaria c BARRIENTOS Comment on above: 10/2017 Dr. Barnes @ [facility] 6 Nancy BIRCH Comment on above: per Dr. Glez 8 wisdom teeth extracted Ruben BARRIENTOS Plan of Treatment Date Care Activity Detail Author Start: 02-22-2020 [facility]enza [facility] 12 Lead ECG STAT 05/31/2020 4:01 PM EST [facility] Immunizations Immunization Date Immunization Notes Care Provider Fa ciliravinder 10-28-2020 COVID-19, mRNA, LNP-S, PF, 30 mcg/0.3 mL dose; Translations: [Pfizer-BioNTech COVID-19 Vaccine] Nancy BARRIENTOS [facility] Comment on above: Reason for Medicatio n: Prophylaxis 10-07-2020 COVID-19, mRNA, LNP-S, PF, 30 mcg/0.3 mL dose; Translations: [Pfizer-BioNTech COVID-19 Vaccine] [employer] Alliance[employer] BARRIENTOS [facility] Comment on above: Reason for Medicatio n: Prophylaxis 04-15-2020 influenza, injectable, quadrivalent, contains preservative Nancy BARRIENTOS [facility] 03-23-2018 influenza virus vaccine, unspecified formulation Nancy BARRIENTOS [facility] 03-10-2013 tetanus toxoid, reduced diphtheria toxoid, and acellular pertussis vaccine, adsorbed [employer] Alliance[employer] BARRIENTOS [facility] Comment on above: Reason for Medicatio n: Other (see comment) 10-13-2007 tetanus toxoid, reduced diphtheria toxoid, and acellular pertussis vaccine, adsorbed Filiberto Cramer [facility] 10-24-1999 hepatitis A and hepatitis B vaccine Filiberto Cramer [facility] 01-25-1998 measles, mumps and rubella virus vaccine Filiberto Cramer [facility] NEGATED: Highlighted row has not occurred!06-20-2023 influenza virus vaccine, unspecified formulation Filiberto Cramer [facility] Care Payers Date Payer Category Payer Medicaid [id number] 2006 Private Health Insurance [id number] 1985 Unknown [id number] 2.16.8 40.1.283405.3.579.2.647 1985 Unknown [id number] 2.16.84 0.1.404922.3.579.2.174 1985 Unknown [id number] 2.16.84 0.1.690498.3.579.2.593 1985 Unknown [id number] 2.16.84 0.1.749472.3.579.2.593 1984 Unknown [id number] 2.16.84 0.1.438066.3.579.2.593 1984 Unknown [id number] 2.16.84 0.1.413441.3.579.2.593 1984 Unknown [id number] 2.16.84 0.1.935343.3.579.2.593 1984 Unknown [id number] 2.16.84 0.1.170127.3.579.2.593 1984 Unknown [id number] 2.16.84 0.1.604641.3.579.2.593 1984 Unknown [id number] 2.16.840 .1.418476.3.579.2.1259 1984 Unknown [id number] 2.16.8 40.1.167732.3.579.2.727 1984 Unknown [id number] 2.16.8 40.1.354237.3.579.2.727 1984 Unknown [id number] 2.16.8 40.1.752366.3.579.2.727 1984 Unknown [id number] 2.16.8 40.1.990376.3.579.2.727 1984 Unknown [id number] 2.16.8 40.1.326315.3.579.2.727 1984 Unknown [id number] 2.16.8 40.1.503674.3.579.2.727 1984 Unknown [id number] 2.16.8 40.1.452699.3.579.2.727 1984 Unknown [id number] 2.16.8 40.1.932460.3.579.2.727 1984 Unknown [id number] 2.16.8 40.1.107946.3.579.2.727 1959 Private Health Insurance [id number] Social History Date Type Detail Facility Start: 05-31-2020 End: 06-24-2023 Tobacco smoking status NHIS Never smoker [facility] [place] Start: 05-31-2020 Tobacco use and exposure Never used [facility] [place] [facility] [place] Sex Assigned At Not on file [place], [place] Exposure to SARS-CoV -2 (event) Not sure [place], [place] Tobacco smoking status Never [facility] Sex Assigned At Female [employer] Other Functional Status Date Assessment Result Facility 06-24-2023 Functional Status N/A [facility] [place] 06-20-2023 Functional Status N/A [facility] Care Clinical Notes 04-17-2021 to 06-21-2023 LaboratoryLaboratory Note Date & Type Note Facility 06-21-2023 Evaluation + Plan note Diagnostic Tests PendingT3 Free 06/21/23 Future Scheduled TestsCBC w/ Auto Diff 06/20/23Comprehensive Metabolic Panel 06/20/23Free T4 06/20/23 [facility] 06-20-2023 Hospital Discharge instructions Patient Education 06/20/2023 21:07:29 Otitis Media With Effusion, Adult Otitis Media With Effusion, Adult Otitis media with effusion (OME) is inflammation and fluid (effusion) in the middle ear without having an ear infection. The middle ear is the space behind the eardrum. The middle ear is connected to the back of the throat by a narrow tube (eustachian tube). Normally the eustachian tube drains fluid out of the middle ear. A swollen eustachian tube can become blocked and cause fluid to collect in the middle ear. OME often goes away without treatment. Sometimes OME can lead to hearing problems and recurrent acute ear infections (acute otitis media). These conditions may require treatment. What are the causes? OME is caused by a blocked eustachian tube. This can result from: Allergies. Upper respiratory infections. Enlarged adenoids. The adenoids are areas of soft tissue located high in the back of the throat, behind the nose and the roof of the mouth. They are part of the body's natural defense system (immune system). Rapid changes in pressure, like when an airplane is descending or during scuba diving. In some cases, the cause of this condition is not known. What are the signs or symptoms? Common symptoms of this condition include: A feeling of fullness in your ear. Decreased hearing in the affected ear. Fluid draining into the ear canal. Pain in the ear. In some cases, there are no symptoms. How is this diagnosed? A health care provider can diagnose OME based on signs and symptoms of the condition. Your provider will also do a physical exam to check for fluid behind the eardrum. During the exam, your health care provider will use an instrument called an otoscope to look in your ear. Your health care provider may do other tests, such as: A hearing test. A tympanogram. This is a test that shows how well the eardrum moves in response to air pressure in the ear canal. It provides a graph for your health care provider to review. A pneumatic otoscopy. This is a test to check how your eardrum moves in response to changes in pressure. It is done by squeezing a small amount of air into the ear. How is this treated? Treatment for OME depends on the cause of the condition and the severity of symptoms. The first step is often waiting to see if the fluid drains on its own in a few weeks. Home care treatment may include: Txul-rwx-srsnkzl pain relievers. A warm, moist cloth placed over the ear. Severe cases may require a procedure to insert tubes in the ears (tympanostomy tubes) to drain the fluid. Follow these instructions at home: Take dbuh-xaf-owhbcgc and prescription medicines only as told by your health care provider. Keep all follow-up visits. Contact a health care provider if: You have pain that gets worse. Hearing in your affected ear gets worse. You have fluid draining from your ear canal. You have dizziness. You develop a fever. Get help right away if: You develop a severe headache. You completely lose hearing in the affected ear. You have bleeding from your ear canal. You have sudden and severe pain in your ear. These symptoms may represent a serious problem that is an emergency. Do not wait to see if the symptoms will go away. Get medical help right away. Call your local emergency services (911 in the [place] Do not drive yourself to the hospital. Summary Otitis media with effusion (OME) is inflammation and fluid (effusion) in the middle ear without having an ear infection. A swollen eustachian tube can become blocked and cause fluid to collect in the middle ear. Treatment for OME depends on the cause of the condition and the severity of symptoms. Many times, treatment is not needed because the fluid drains on its own in a few weeks. Sometimes OME can lead to hearing problems and recurrent acute ear infections (acute otitis media), which may require treatment. This information is not intended to replace advice given to you by your health care provider. Make sure you discuss any questions you have with your health care provider. Document Revised: 10/04/2021 Document Reviewed: 10/04/2021 [employer] Patient Education 2022 [employer]. 06/20/2023 19:03:16 Thyroid Nodule Thyroid Nodule A thyroid nodule is an isolated growth of thyroid cells that forms a lump in the thyroid gland. The thyroid gland is a butterfly-shaped gland found in the lower front of the neck. It sends chemical messengers (hormones) through the blood to all parts of the body. These hormones are important in regulating body temperature and helping the body use energy. Thyroid nodules are common. Most are not cancerous (are benign). You may have one nodule or several nodules. There are different types of thyroid nodules. They include nodules that: Grow and fill with fluid (thyroid cysts). Produce too much thyroid hormone (hot nodules or hyperthyroid). Produce no thyroid hormone (cold nodules or hypothyroid). Form from cancer cells (thyroid cancers). What are the causes? In most cases, the cause of thyroid nodules is not known. What increases the risk? The following factors may make you more likely to develop thyroid nodules: Age. Thyroid nodules are more common in people who are older than 45 years. Female gender. A family history that includes: ?Thyroid nodules. ?Pheochromocytoma. ?Thyroid carcinoma. ?Hyperparathyroidism. Certain thyroid diseases, such as Apolinar's thyroiditis. Lack of iodine in your diet. A history of head and neck radiation, such as from cancer treatments. Type 2 diabetes. What are the signs or symptoms? In many cases, there are no symptoms. If you have symptoms, they may include: A lump in your lower neck. Feeling pressure, fullness, or a tickle in your throat. Pain in your neck, jaw, or ear. Having trouble swallowing or breathing. Hot nodules may cause: Weight loss. Warm, flushed skin. Feeling hot. Feeling nervous. A rapid or irregular heartbeat. Cold nodules may cause: Weight gain. Dry skin. Hair loss, brittle hair, or both. Feeling cold. Fatigue. Thyroid cancer nodules may cause: Hard nodules that can be felt along the thyroid gland. Hoarseness. Lumps in the tissue (lymph nodes) near your thyroid gland. How is this diagnosed? A thyroid nodule may be felt by your health care provider during a physical exam. This condition may also be diagnosed based on your symptoms. You may also have tests, including: Blood tests to check how well your thyroid is working. An ultrasound. This may be done to confirm the diagnosis. A biopsy. This involves taking a sample from the nodule and looking at it under a microscope. A thyroid scan. This test creates an image of the thyroid gland using a radioactive tracer. Imaging tests such as an MRI or CT scan. These may be done if: ?A nodule is large. ?A nodule is blocking your airway. ?Cancer is suspected. How is this treated? Treatment depends on the cause and size of your nodule or nodules. If a nodule is benign, treatment may not be necessary. Your health care provider may monitor the nodule to see if it goes away without treatment. If a nodule continues to grow, is cancerous, or does not go away, treatment may be needed. Treatment may include: Having a cystic nodule drained with a needle. Ablation therapy. In this treatment, alcohol is injected into the area of the nodule to destroy the cells. Ablation with heat may also be used. This is called thermal ablation. Radioactive iodine. In this treatment, radioactive iodine is given as a pill or liquid that you drink. This substance causes the thyroid nodule to shrink. Surgery to remove the nodule or nodules. Part or all of your thyroid gland may also need to be removed. Medicines to treat hyperthyroidism. Follow these instructions at home: Pay attention to any changes in your thyroid nodule or nodules. Take drba-vct-ngdcyse and prescription medicines only as told by your health care provider. Keep all follow-up visits. This is important. Contact a health care provider if: You have trouble sleeping. You have muscle weakness. You have significant weight loss without changing your eating habits. You feel nervous. You have trouble swallowing. You have increased swelling. You have a rapid or irregular heartbeat. Get help right away if: You have chest pain. You faint or lose consciousness. Your nodule makes it hard for you to breathe. These symptoms may be an emergency. Get help right away. Call 911. Do not wait to see if the symptoms will go away. Do not drive yourself to the hospital. Summary A thyroid nodule is an isolated growth of thyroid cells that forms a lump in your thyroid gland. Thyroid nodules are common. Most are not cancerous. Your health care provider may monitor the nodule to see if it goes away without treatment. If a nodule continues to grow, is cancerous, or does not go away, treatment may be needed. Treatment depends on the cause and size of your nodule or nodules. This information is not intended to replace advice given to you by your health care provider. Make sure you discuss any questions you have with your health care provider. Document Revised: 04/22/2022 Document Reviewed: 04/22/2022 [employer] Patient Education 2022 [employer]. Follow Up Care 06/20/2023 07:23:01 With:Nancy BARRIENTOS MD, FAM Address: [address] [place] [id number] When: Unknown [facility] 06-20-2023 Evaluation + Plan note Future Scheduled TestsT4 Total 06/20/23CBC w/ Auto Diff 06/20/23Comprehensive Metabolic Panel 06/20/23T3 Free 06/20/23T3 Uptake 06/20/23Thyroid Stimulating Hormone 06/20/23Free T4 06/20/23 [facility] 10-01-2022 Note CONSULTATION CONSULTATION DATE: 10/01/2022 TO: Ruben Barrientos M.D. HISTORY: Patient presents today complaining of pain in her right hip area, described as a burning, sharp pain, rated 5-7/10 in severity, increased with activity such as light touch. She also reports standing, walking and performing transitioning maneuvers are quite uncomfortable. She feels most comfortable in the semi-recumbent position. She denies any change in bowel and bladder habits or new sensorimotor changes in the lower extremities. EXAM: Her examination is notable for the patient having dysesthesia and hyperesthesia long the distribution of the lateral cutaneous branch of the iliohypogastric nerve on the right side. She has associated myofascial spasm of the right gluteus medius. IMPRESSION: Patient appears to have chronic pain status post successful lumbar decompression stabilization at L5-S1 with residual myofascial dysfunction involving the right gluteus medius and possible neuritis involving the lateral cutaneous branch of the iliohypogastric nerve on the right side. RECOMMENDATIONS: I have recommended she undergo an EMG nerve conduction velocity study of her lower extremities bilaterally. I have asked her to consider a diagnostic nerve injection on the right side of the lateral cutaneous branch of the iliohypogastric nerve under fluoroscopic guidance. We did discuss her use of gabapentin and Trileptal as well as baclofen and tizanidine. At some point in the future, we will and streamline some of these medications. She is in agreement with the plan. As part of providing excellent, safe, comprehensive care, the following was completed at our patient's visit: 1. A medication reconciliation and review to ensure accurate knowledge of current/active medications, including asking our patients to inform us about any nsoc-ckq-wuzmhec medications or herbal remedies/nutritional supplements/alternative remedies. 2. A review to specifically ensure our patients have had annual screening for: elevated body mass index (BMI, see intake chart for exact total), tobacco use, screening for depression, and screening for unhealthy alcohol use. When screening is concerning, patients are provided with education and the specific recommendation to discuss the concerning health issue and treatment options with their primary care provider. [facility] 06-11-2022 Note CONSULTATION CONSULTATION DATE: 06/11/2022 CHIEF COMPLAINT: Low back pain, right leg tingling/numbness. HISTORY OF PRESENT ILLNESS: This is a 36-year-old female who is known to the Pain Clinic. We performed a diagnostic lumbar medial branch block on the right hand side, at the level of L4, L5, S1, where the patient has had a fusion. The patient continued to have low back pain. Physical examination at that time was the patient was extremely tender. She rates the pain as a 5/10, a dull, throbbing ache. She also describes a numbness sensation in the anterior region of her right leg. Sitting mitigates the pain. Standing, walking, housework, activities, bending, ADLs aggravate the pain. The patient takes baclofen 10 mg b.i.d., tizanidine 2-4 mg q.h.s., gabapentin 600 mg b.i.d., tramadol 50 mg t.i.d., Trileptal 300 mg q.h.s. The patient has been getting increased baclofen and tizanidine from Dr. Ruben Barrientos. The patient's PAST MEDICAL HISTORY / SURGICAL HISTORY / REVIEW OF SYSTEMS are noted on the chart, along with the MEDICATION LIST / ALLERGIES and RADIOLOGICAL IMAGES. PHYSICAL EXAM: Upon physical examination, this is a pleasant, cooperative female, who does not appear to be in any acute distress. VITAL SIGNS: Stable at 114/77, with a heart rate of 82. At a height of 5'6 , the patient weighs 62 kg. FOCUSED EVALUATION - HEAD: Atraumatic, normocephalic.. NECK: No guarding is noted. HEART: Negative orthopnea. LUNGS: Negative dyspnea. ABDOMEN: Soft, non-distended. BACK: Improvement in the patient's lumbar lordosis was noted. Gentle palpation along the posterior elements at the level of L5-S1, L4-L5 were not algogenic in and of themselves, where the patient in the previous visit had a significant jump response. EXTREMITIES: No pedal edema. MUSCULOSKELETAL: Intact in the lower extremities at 5/5 bilaterally. NEUROLOGICALLY: Hypoesthesia along the L5 distribution. PSYCHIATRICALLY: Affect is appropriate. IMPRESSION: Chronic low back pain, status post lumbar fusion, post surgical lumbar neuritis, radiculitis along L5. No motor dysfunction noted. PLAN: Education was done with regards to the risks/benefits, including options were given where intervention along the scar tissue could be done; however, would not recommend this to the patient, given the risk/benefit ratio. In addition to this, the patient is not a good a candidate for a dorsal column stimulator at this time. The patient is functioning very well. We maintained that the patient maintain a gentle stretching methodology with an inversion table, approximately 10-15 degrees. The patient understands and concurs. CC: Nancy Barrientos M.D. [facility] 03-05-2022 Note PAIN MANAGEMENT CONS ULTATION CONSULTATION DATE: 03/05/2022 HISTORY OF PRESENT ILLNESS: This is a 36-year-old female who is known to the Pain Clinic. The patient had undergone a lumbar fusion for anterolisthesis of L5 on S1. The patient has L5-S1 fused with posterior hardware. The patient also, in the past, had a radiculopathy with a clear cut deficit along the nerve. The patient post surgically states that she continues to have pain along her right lower extremity along the L5 distribution. Of note is the fact that the patient had an MRI performed on 10/09/2020, which shows a mildly displaced fracture of the right S1 posterior articular process. However, no overt extreme edema was seen along the surgical site. The patient states activities such as twisting, pushing, riding in a car for any length of time aggravates the pain, as does housework, lifting, bending, climbing stairs. Lying down on her side or sitting in her recliner mitigates the patient's pain symptomatology. The patient takes baclofen 10 mg on a daily to b.i.d. basis and tizanidine 4 mg h.s., gabapentin 600 mg on a b.i.d. basis, tramadol 50 mg t.i.d. The patient also takes Trileptal 300 mg h.s. as prescribed by LISBETH. The patient's PAST MEDICAL HISTORY / SURGICAL HISTORY / REVIEW OF SYSTEMS are noted on the chart, along with the MEDICATION LIST, ALLERGIES and RADIOLOGICAL IMAGES, including the x-ray that was reviewed in office today. The MRI was not available. PHYSICAL EXAMINATION: GENERAL APPEARANCE: Upon physical examination, this is a pleasant, cooperative female, who does not appear to be in any acute distress. She is endomorphic in structure. VITAL SIGNS: 115/82 with a heart rate of 70. At a height of 5'6 , the patient weighs 141 kg. FOCUSED EVALUATION - EXTREMITIES: Decreased tonus of the muscles is present; however, this is to baseline. No pedal edema. MUSCULOSKELETAL: Intact in the lower extremities at 4+/5. NEUROLOGICALLY: Hypoesthesia is present along the L5 distribution on the right hand side. PSYCHIATRICALLY: Affect is appropriate; however, the patient appears to be tired of the chronicity of the pain. BACK: With regards to her low back, no overt paravertebral spasming is present; however, significant jump response was noted by the patient upon mild extension, compression and palpation along the L5-S1 articular process. IMPRESSION: Current working diagnosis on the patient is post surgical lumbar radiculitis, neuritis L5 on the right hand side, lumbar spondylosis. MRI defined mildly displaced fracture along the S1 superior articular process. PLAN: Given the chronicity of this pathology, I would like to perform a diagnostic lumbar posterior element block at the level of the L5-S1. To cover the complete region, I would like to include the medial branch of L4 on the right hand side. Once again, this would be for the diagnostic purposes. The architecture will have been modified, given the fact that the patient has had a lumbar fusion at this site. However, the patient's physical examination was severe and her focus was intense at that site. Should we find the diagnostic block helpful, the patient would be a candidate for a rhizotomy along this region. CC: Dr. Barrientos [facility] 12-28-2021 Evaluation note Encounter Date Diagnosis Assessment Notes Dec, Spinal stenosis of lumbar region with neurogenic claudication (ICD-10 - M48.062) Dec, Spondylolisthesis at L5-S1 level (ICD-10 - M43.17) This is a patient who initially presented with chronic low back and leg pain for several years with no benefit with microdiscectomy and had moderate degenerative disc disease and some narrowing and retrolisthesis at L5-S1. She underwent an anterior lumbar interbody fusion. Placement of the right L5 screw resulted in a possible injury to the L5 nerve. The patient woke with unusual numbness of the right foot and slight weakness; the weakness improved over time, but the numbness has persisted. Patient's been quite functional but unfortunately she still has bilateral leg symptoms and chronic low back pain. She is on gabapentin 600mg 3 times daily which tends to help with the symptomatology as well as Trileptal. I suggested to the patient today who remains quite stable that she #1 she get a back x-ray so we could review it and consider placement of a dorsal column stimulator for helping her chronic right radicular discomfort and some of her low back pain. Showed the patient on a cell phone how to look up information on this subject. I have given her a referral to Dr. Summers.for further discussion of this I will follow her up on an as-needed basis [employer] Other 06-13-2022 Evaluation + Plan note Diagnostic Tests Pending * Insulin Level Total 12/03/21 * T3 Free 12/03/21 * FSH Level 12/03/21 Future Scheduled Tests Laboratory* [place] [place] [facility]05-19[facility]2022 NoteCONSULTATION CONSULTATION DATE: 11/08/2021 This is a pleasant 36-year-old female who returns to the clinic for a 3-month follow-up for her chronic neck pain. She does see Dr. Arambula in [facility] and she did receive right-sided neck and trigger points three weeks ago. She stated she had some relief that was not long-lasting. She does have a history of chronic lower back pain as well which she does plan on seeing Dr. Damon in [place] for. Activities that aggravate her neck are twisting, pulling, sitting, lifting and housework. She does use heat which decreases the pain. Current medications are Baclofen 10 mg q.h.s., gabapentin 600 mg t.i.d., Tramadol and Trileptal. Today she is not in need of refills. Her neck pain is worse with lateral rotation. She does have radicular pain to right arm to the level of the thumb. REVIEW OF SYSTEMS, PAST MEDICAL HISTORY, ALLERGIES AND IMAGES: Have been reviewed and noted in the chart. PHYSICAL EXAM: VITAL SIGNS: Blood pressure 109/80, heart rate is 82, temperature is 97.5. Height is 170 cm, weighs 65 kg. GENERAL APPEARANCE: Pleasant, appropriate and in no acute distress sitting in the chair. FOCUSED EXAM: NECK: Range of motion is guarded in right lateral rotation. The patient is functional in flexion and extension but with increased pain symptomatology. Reproduction of spinoaxial pain to direct compression along the cervical facets of C3, C4 and C5, C6 that radiate to the right shoulder. MUSCULOSKELETAL: Motor is intact to upper extremities, 4 out of 5 bilaterally. Gross and fine motor movement is intact. NEUROLOGICAL: Patchy hypesthesia noted along the C6 dermatome to the right. Plus 1 brachioradialis bilaterally. DIAGNOSIS: Cervical degenerative, cervical spondylosis, cervicalgia, cervical neuritis. PLAN: We will gain authorization to move forward with #1 bilateral MBB to C3, C4 and C5, C6 pending insurance authorization. The patient has experienced insurance difficulties in the past and will only move forward if pain is confirmed. She was encouraged to add magnesium gluconate 400 mg q. day to her regimen as well as using a heat rub mixed with Voltaren gel. She will be followed in the office post injection. The patient agrees with plan of care and would like to proceed. [facility] Signed and Approved by: ISAURA KELLY . 11/12/2021 15:05:00[facility]01-21-2022 Evaluation + Plan note Future Scheduled Tests Laboratory* [place] [place]21 [facility]10-26-2021 Evaluation note* Encounter Date Diagnosis Assessment Notes Treatment Notes Treatment Clinical Notes Mar, Spondylolisthesis at L5-S1 level (ICD-10 - M43.17) I answered a number of questions for the patient. I think a transforaminal injection may be beneficial. I also believe that she could potentially benefit from a dorsal column stimulator. She is seeing a another neurologist at [facility] and I am interested in what medication changes are made. I will see the patient again in 3 months and review this with her. I looked at the picture of the spine today she has good bone formation and her SKYE hardware is intact. Because of the persistent back pain and some right leg pain I did bring up the possibility of removing hardware. I am ambivalent about the overall possibility of improvement; it may help but then again it may not. The patient will think it over and we will discuss it again in 3 months. Mar, Spinal stenosis of lumbar region with neurogenic claudication (ICD-10 - M48.062) [employer] Other evaluation + Plan note Future Appointments Appointment Date:06/27/2023 07:30:00 AM Scheduled Provider: [facility] Appointment Type:US Thyroid/Neck/Chest () Appointment Date:06/27/2023 08:00:00 AM Scheduled Provider: [facility] Appointment Type:CV EKG () Appointment Date:07/29/2023 12:40:00 PM Scheduled Provider:[facility]OS [facility]: Open Future Scheduled Tests Laboratory* UA With Cult Reflex 06/24/23 * CBC w/ Auto Diff 06/20/23 * Comprehensive Metabolic Panel 06/20/23 * Lipid Panel 06/24/23 * Free T4 06/20/23 Radiology* US Thyroid 06/27/23 [facility] Evaluation + Plan note Future Appointments Appointment Date:07/29/2023 12:40:00 PM Scheduled Provider:Nancy BARRIENTOS MD Location:[facility] Appointment Type: Open Future Scheduled Tests Laboratory* UA With Cult Reflex 06/24/23 * CBC w/ Auto Diff 06/20/23 * Comprehensive Metabolic Panel 06/20/23 * Lipid Panel 06/24/23 * Free T4 06/20/23 Radiology* US FNA w/ Guidance, first lesion 06/27/23 * NM Thyroid Imaging w/ Uptk Multiple [facility]27[facility]23 [facility] InformationNort [facility] Other History general Narrative - Reported* Type Description Date Medical History Breast augmentation Surgical History Laproscopic SAMAN removal of Endo metriosis Dr. Rosales 2014 Surgical History Laproscopic removal of endometr iosis 2014 Surgical History Cortisone injection and nerve a blations in back 2015 Surgical History steroid injection/nerve ablatio n (back) 2015 Surgical History breast augmentation Surgical History breast implants replaced 2016 Surgical History LAVH/BSO 09-11-17 Surgical History Micro discectomy L5-S1 2017 Surgical History Hysterectomy; total 08/2017 Surgical History Micro discectomy L5-S1 10/2017 Surgical History [facility] Hospitalization History see surgical hx [employer] Other Hospital course Narrative No data available for this section [facility] No data available for this section [facility] No data available for this section [facility] Summary Purpose Family History No Family History Records FoundNo Family History Records FoundNo Family History Records FoundNo Family History Records Found No data available for this section No Family History Records Found No data available for this section No data available for this section No data available for this section No data available for this section No data available for this section No Family History Records Found Advance Directives No Advanced Directives Records FoundDocuments on File Type Date Recorded 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 * Chest Pain: Musculoskeletal (Hungarian) documented in this encounter Assessments Diagnosis Chest wall pain Painful respiration Reason for Referral Reason Evaluate and Treat C onsider for Dorsal Column Stimulator Diagnosis 1 Spondylolisthesis at L5-S1 level (M43.17) Referral Organization [facility] urosurgery Referring Provider First Name Ric Referring Provider Last Name Alejandrina Referring Provider Specialty Neurologica l Surgery Referred Organization Unknown Facility Referred Provider Mansoor Summers Referred Provider Specialty Pain Medicin e Referral Priority Routine Additional Source Comments INFORMATION SOURCE (unrecogn ized section and content) DATE CREATED AUTHOR 01/14/2020 [facility] DATE CREATED AUTHOR AUTHOR'S ORGANIZ ATION 06/01/2020 [facility] DATE CREATED AUTHOR AUTHOR'S ORGANIZ ATION 01/11/2022 [facility] DATE CREATED AUTHOR AUTHOR'S ORGANIZ ATION 11/06/[address] [facility] DATE CREATED AUTHOR AUTHOR'S ORGANIZ ATION 05/09/2023 [facility] EPIC DATE CREATED AUTHOR AUTHOR'S ORGANIZ ATION 06/28/2023 [facility] Reason for Visit (unrecogniz ed section and content) Reason Comments Chest Pain intermittent chest p ain under left breast started last night, few episodes today, lasting approx 30 seconds, reports feeling more tired today Care Team (unrecognized sect ion and content) Personnel Name: Nancy BARRIENTOS MD Address: [address] [place] [address] Personnel Name: Nancy BARRIENTOS MD Address: Address: [address] [place] [address] Personnel Name: Nancy BARRIENTOS MD Address: Address: [address] [place] [address] Personnel Name: Nancy BARRIENTOS MD Address: Address: [address] [place] [address] Personnel Name: Nancy BARRIENTOS MD Address: Address: [address] [place] [address] Personnel Name: Nancy BARRIENTOS MD Address: Address: [address] [place] [address] Personnel Name: Nancy BARRIENTOS MD Address: Address: [address] [place] [address] FOR RECORDS PERTAINING TO PATIENTS WHO ARE OR HAVE BEEN ENROLLED IN A CHEMICAL DEPENDENCY/SUBSTANCEABUSE PROGRAM, SOME INFORMATION MAY BE OMITTED. This clinical summary was aggregated from multiple sources. Caution should be exercised in using it in the provision of clinical care. This summary normalizes information from multiple sources, and as a consequence, information in this document may materially change the coding, format and clinical context of patient data. In addition, data may be omitted in some cases. CLINICAL DECISIONS SHOULD BE BASED ON THE PRIMARY CLINICAL RECORDS. [facility] [employer] [facility]. provides no warranty or guarantee of the accuracy or completeness of information in this document.
--- NOTE | 2023-07-01 15:29 | XR_ITS ---
The [place] [id number] Patient Name: JESSICA GRIFFITHS MRN: [id number] date: 1985 Sex: F Assigned Patient Location: [facility] Current Patient Location: [facility] Accession/Order Number: [id number] Exam Date: 07/01/2023 15:40 Report Date: 07/01/2023 16:05 At the request of: MYRNA VASQUEZ Procedure: XR lumbar spine 6V w bending EXAMINATION: XR lumbar spine 6V w bending HISTORY: low sciatica pain COMPARISON: 12/28/21 FINDINGS: BONES: Normal alignment on neutral projection with no acute fracture or spondylolisthesis. Posterior decompression bilateral transpedicular fusion L5-S1. No mechanical failure DISC SPACES: Interbody spacer L5-S1 PARASPINOUS: Negative. No paraspinous abnormality is seen. OTHER: No transient spondylolisthesis with flexion or extension XR/XR lumbar spine 6V w bending IMPRESSION: Stable lumbosacral fusion with no dynamic instability Electronically authenticated by: GIOVANNA VASQUEZ Date: 07/01/2023 16:05
== END 2023-07-01 15:19 | disposition home or self-care (01) ==
PROVIDERS: Visit Provider Anesthesiology Pain Medicine
DX: M54.50 Low back pain, unspecified (principal); Z98.1 Arthrodesis status
CPT/HCPCS: 72114

== ENCOUNTER 2023-07-14 11:59 | Day surgery (SDC) | payer MEDICAID, SELFPAY ==
--- NOTE | 2023-07-14 | US_ITS ---
The [address] [address] Patient Name: JESSICA GRIFFITHS MRN: [id number] date: 1985 Sex: F Assigned Patient Location: [place] Current Patient Location: [place] Accession/Order Number: [id number] Exam Date: 07/14/2023 13:00 Report Date: 07/14/2023 13:34 At the request of: MARTA PUENTE Procedure: US biopsy thyroid EXAMINATION: US biopsy thyroid HISTORY: Left thyroid nodule COMPARISON: No relevant comparison available. TECHNIQUE: After obtaining informed consent, an ultrasound-guided biopsy was performed in the usual sterile manner. FINDINGS: IMAGING: Ultrasound BIOPSY NEEDLE: 25-gauge, 2 and SPECIMEN TYPE, #, LOCATION: 4 fine-needle aspirates, 3.8 cm left thyroid nodule MEDICATION: 3 cc 1% buffered lidocaine without epinephrine COMPLICATIONS: None. LABORATORY: Samples sent for pathology and genetic analysis OTHER: Negative. US/US biopsy thyroid IMPRESSION: Uneventful ultrasound guided biopsy. The patient was instructed to obtain follow up care and biopsy results from the referring physician. Electronically authenticated by: GIOVANNA VASQUEZ Date: 07/14/2023 13:34
--- OUTSIDE RECORDS SUMMARY | 2023-07-14 12:03 | XMS_ITS | CCD ---
Author Name Unknown Address [address] [place] [address] Organization [facility] Care Team Providers Care Script Developer Name Role Phone UNKNOWN, PROVIDER Admitting Unavailable UNKNOWN, PROVIDER Attending Unavailable UNKNOWN, PHYSICIAN Referring Unavailable UNKNOWN, PHYSICIAN Primary Care Unavailable Nancy Barrientos Primary Care Provider KATHY GHOSH Attending Unavailable NANCY BARRIENTOS Primary Care Unavailable Nancy BARRIENTOS Primary Care Physician Ric Tinoco Unavailable JOSEFA .DR HERB Attending Unavailable RIVERO ., DR HERB Melgar [...] DR MURRIETA Primary Care Unavailable LAKSHMIPATHY ., NARENDGINOATH Admitting Fide vailable LAKSHMIPATHY ., SHARONA Attending Fide vailable LAKSHMIPATHY ., SHARONA Consulting Fide vailable RIVERO ., DR HERB Melgar Admitting Unavailable MISC, DR MURRIETA Primary Care Unavailable KELLY ., ISAURA Consulting Unavailable RIVERO ., DR HERB Melgar Attending Unavailable RIVERO ., DR HERB Melgar Attending Unavailable RIVERO ., DR HERB Melgar Admitting Unavailable MISC, DR MURRIETA Consulting Unavailable MISC, DR MURRIETA Primary Care Unavailable JOSEFA ., DR HERB Melgar Consulting Unavailable JOSEFA ., DR HERB Melgar Attending Unavailable MISC, DR MURRIETA Primary Care Unavailable JOSEFA ., DR HERB Melgar Consulting Unavailable JOSEFA ., DR HERB Melgar Admitting Unavailable KELLY .ISAURA Consulting Unavailable Filiberto Cramer Attending Unavailable Gudimella, Paul Attending Unavailable Gudimella, Paul Attending Unavailable Nancy BARRIENTOS Attending Unavailable Anitra BARRIENTOS Attending Unavailable Gudimella, Paul Admitting Unavailable Gudimella, Paul Attending Unavailable Gudimella, Paul Referring Unavailable LEONEL, EBER JOSE Admitting Unavailable LEONEL, EBER JOSE Attending Unavailable Lakshmipathy, Narendranath Admitting Unava ilable Lakshmipathy, Narendranath Attending Unava ilable Lakshmipathy, Narendranath Referring Unava ilable Filiberto Cramer Admitting Unavailable Filiberto Cramer Attending Unavailable MARTA PUENTE Attending Unavailable GUDIMELLA, PAUL Referring Unavailable ALYSIA PARK Attending Unavailable Allergies Allergy Classification Reported Allergen(s) Allergy Type Date of Onset Reaction(s) Facility (1 source) Adhesive agent; Translations: [Unknown] Propensity to adverse reactions (disorder) 9 [facility] (9 sources) Adhesive Tape; Translations: [Tape] Drug allergy Eruption of skin (disorder) [facility] (12 sources) Latex; Translations: [Latex] Drug allergy Unknown [facility] Other (3 sources) adhesive bandages Propensity to adverse reactions rash [facility] Other (1 source) Adhesive agent Drug allergy (disorder) 6 [facility] Repository Medications Current Medications Medication Drug Class(es) [...] course, # 28 cap(s), Refills(s) 0, Pharmacy: [facility], 168, cm, 07/11/20 8:27:00 EST, Height/Length Dosing, 64.1, kg, 07/11/20 8:27:00 EST, Weight Dosing Start Date: 07/11/20 Status: Ordered cetirizine hydrochloride 10 mg oral tablet (4 sources) Histamine-1 Receptor Antagonist Start: 11-23-2020 take 1 tablet by mouth once daily cetirizine 10 mg Tab 10 mg = 1 tab(s), Oral, Daily, # 90 tab(s), Refills(s) 1, Pharmacy: [facility], 168, cm, 07/11/20 8:27:00 [...] nasal route once daily Flonase 0.05 mg/inh [place] 2 spray(s), Nasal, Daily for 7 day(s), 16 gm, Refill(s) 0, each nostril, [facility], 168, cm, 06/20/23 18:45:00 [...] BID, # 180 tab(s), Refills(s) 1, Pharmacy: [facility], 168, cm, 07/11/20 8:27:00 EST, Height/Length Dosing, 64.1, kg, 07/11/20 8:27:00 EST, Weight Dosing Start Date: 08/22/20 Status: Ordered Start: 11-30-2019 take 1 tablet by jaden th once daily lamoTRIgine (LAMICTAL) 25 MG tablet Take 25 mg by mouth daily 0 11/30/2019 Active loratadine 10 mg oral tablet (2 sources) Start: 02-23-2020 take 1 tablet by mouth once daily loratadine 10 mg Tab 10 mg = 1 tab(s), Oral, Daily, # 90 tab(s), Refills(s) 1, Pharmacy: [facility], 168, cm, 02/23/20 10:40:00 EDT, Height/Length Dosing, 65, kg, 02/23/20 10:40:00 EDT, Weight Dosing Start Date: 02/23/20 Status: Ordered Start: 11-30-2019 take 1 capsule by mo uth once daily loratadine (CLARITIN) 10 MG capsule [...] Nausea/Vomiting, # 10 tab(s), Refills(s) 0, Pharmacy: [facility], 168, cm, 07/10/20 [...] Ordered Start: 02-22-2020 take 2 tablets by mo ut every twelve hours Trileptal 300 MG 2 [...] discomfort, # 60 tab(s), Refills(s) 2, Pharmacy: [facility], 168, cm, 05/26/20 16:32:00 [...] breakfast, # 30 tab(s), Refills(s) 5, Pharmacy: [facility], 168, cm, 07/11/20 8:27:00 [...] breakfast, # 30 tab(s), Refills(s) 5, Pharmacy: [facility], 168, cm, 07/11/20 8:27:00 [...] BID, # 60 tab(s), Refills(s) 2, Pharmacy: [facility], 168, cm, 11/08/21 9:50:00 EDT, Height/Length Dosing, 65.4, kg, 11/08/21 9:50:00 EDT, Weight Dosing Start Date: 01/18/22 Status: Ordered Start: 11-23-2020 take 1 tablet by jaden th twice daily valacyclovir 1 g Tab 1 gram = 1 tab(s), Oral, BID, # 60 tab(s), Refills(s) 2, Pharmacy: [facility], 168, cm, 07/11/20 8:27:00 EST, Height/Length Dosing, 64.1, kg, 07/11/20 8:27:00 EST, Weight Dosing Start Date: 11/23/20 Status: Ordered Start: 11-23-2020 take 1 tablet by jaden th twice daily valacyclovir 1 g Tab 1 gram = 1 tab(s), Oral, BID, # 60 tab(s), Refills(s) 2, Pharmacy: [facility], 168, cm, 07/11/20 8:27:00 [...] Range Facility Physician Referralon 024 Physician Referral [id number] 593#1.00TIFF Normal [facility] Consent for Treatmenton Consent for Treatment [id number] 2F#1.00TIFF Normal [facility] US Thyroidon 06-27-2023 US Thyroid Exam Date/Time: 06/27/2023 07:55 EST Reason for Exam: Thyrotoxicosis, unspecified without thyrotoxic crisis or storm;Hyperthyroidi Report IMPRESSION: 6 X 3 X 4 [...] nodule is identified (TR 4). Ordering Provider: Paul Bass FINAL REPORT Dictated: 06/27/2023 11:42 am Cassius Ernst MD Signed (Electronic Signature): 06/27/2023 11:42 am Signed by: Cassius Ernst MD Transcribed by: YAMINI Technologist: FAISAL Price [facility] Family Medicine Office/Clini c Noteon 06-24-2023 Family [...] Last Labs: 06/21/2023 History of Present Illness Emily Valiente is a 37-year-old female presenting today to [...] with voice recognition artificial intelligence software, specifically [employer], [employer] and or [employer]. Substitutions may have occurred due to the inherent limitations of voice recognition and artificial intelligence software. Documentation services were performed after patient or guardian consented to allow [employer] to record this visit. D (more content not included)... Normal [facility] Comment on above: Result Comment: Elec tronically Signed By: Paul Bass MD\.br\Date and Time Signed: 06/24/23 18:25 EST\.br\Electronically Co-Signed By: Jaja Alex\.br\Date and Time Co-Signed: 06/24/23 18:04 EST T3 Freeon 06-22-2023 Free T3 [Mass/Vol] 4.2 pg/mL Invalid Interpretation Code 2.0-4.[address] [facility] Comment on above: Result Comment: Perf ormed at: [facility] [address] [id number] PhD Mahnaz Conklin Performed By: #### 2 918068, [id number], 5406449, 8195584 ####[address] [place] [address] Auto Diffon 06-21-2023 Basophils/100 WBC (Bld) 0.3 % Normal 0.0-2.[address] [facility] Comment on above: Order Comment: Order Added by Discern Expert. Performed By: #### 2 060975, 7586753, 0866528, 63558523, 8116131 ####[address] [address] Basophils/Leukocytes Auto (Bld) [Pure # fraction] 0.0 E9/L Normal 0.0-0.[address] [facility] Comment on above: Order Comment: Order Added by Jay Expert. Performed By: #### 2 455601, 5665567, 6978360, 60301814, 8613687 ####[address] [address] Eosinophils/100 WBC (Bld) 0.6 % Normal 0.0-8.[address] [facility] Comment on above: Order Comment: Order Added by Jay Expert. Performed By: #### 2 169329, 0152281, 8281337, 22930793, 9511849 ####[address] [address] Eosinophils/Leukocytes Auto (Bld) [Pure # fraction] 0.0 E9/L Normal 0.0-0.[address] [facility] Comment on above: Order Comment: Order Added by Jay Expert. Performed By: #### 2 740908, 2308668, 2316319, 59856797, 5848093 ####[address] [address] Lymphocytes/100 WBC (Bld) 20.6 % Normal 14.0-50.[address] [facility] Comment on above: Order Comment: Order Added by Jay Expert. Performed By: #### 2 686489, 5871436, 1853063, 90338327, 1765541 ####[address] [address] Lymphocytes/Leukocytes Auto (Bld) [Pure # fraction] 1.7 E9/L Normal 1.0-4.[address] [facility] Comment on above: Order Comment: Order Added by Discern Expert. Performed By: #### 2 697872, 9763539, 8811884, 36417378, 7136065 ####[address] [place] [address] Monocytes/100 WBC (Bld) 6.6 % Normal 4.0-14.[address] [facility] Comment on above: Order Comment: Order Added by Discern Expert. Performed By: #### 2 284549, 7265077, 7539245, 21296444, 6921904 ####[address] [place] [address] Monocytes/Leukocytes Auto (Bld) [Pure # fraction] 0.5 E9/L Normal 0.2-1.[address] [facility] Comment on above: Order Comment: Order Added by Jay Expert. Performed By: #### 2 178973, 8868688, 0592031, 16860734, 5878052 ####[address] [address] Neutrophils/100 WBC (Bld) 71.9 % Normal 36.0-75.[address] [facility] Comment on above: Order Comment: Order Added by Jay Expert. Performed By: #### 2 984705, 1730170, 8180511, 47215936, 5742014 ####[address] [address] Neutrophils/Leukocytes Auto (Bld) [Pure # fraction] 5.8 E9/L Normal 2.0-7.[address] [facility] Comment on above: Order Comment: Order Added by Discern Expert. Performed By: #### 2 024809, 7138164, 6330162, 27945428, 8388676 ####[address] [address] CBC w/ Auto Diffon 3 Erythrocyte distribution width (RBC) [Ratio] 12.6 % Normal 10.9-14.[address] [facility] Comment on above: Performed By: #### 2 187257, 4729199, 7125244, 34585284, 7046631 ####[facility] [address] [place] [address] Hematocrit (Bld) [Volume fraction] 37.8 % Normal 34.0-46.[address] [facility] Comment on above: Performed By: #### 2 319951, 4063422, 4515698, 35729692, 6686446 ####[address] [address] Hemoglobin (Bld) [Mass/Vol] 12.7 g/dL Normal 12.0-16.[address] [facility] Comment on above: Performed By: #### 2 058913, 6799349, 0406503, 08859608, 1221372 ####[address] [address] MCH (RBC) [Entitic mass] 32.2 pg Normal 27.0-34.[address] [facility] Comment on above: Performed By: #### 2 270326, 0794147, 7385589, 85223674, 8427338 ####[address] [address] MCHC (RBC) [Mass/Vol] 33.8 g/dL Normal 31.4-36.0 [facility] Comment on above: Performed By: #### 2 668785, 6269271, 0179215, 68058372, 1182854 ####[address] [address] MCV (RBC) [Entitic vol] 95.5 fL Normal 80.0-100.[address] [facility] Comment on above: Performed By: #### 2 091440, 5206379, 0315338, 82810678, 1432694 ####[address] [address] Platelet mean volume (Bld) [Entitic vol] 8.5 fL Normal 6.4-10.[address] [facility] Comment on above: Performed By: #### 2 394728, 4517908, 1059513, 97630591, 9034495 ####[facility] [address] [place] [address] Platelets (Bld) [#/Vol] 303.0 E9/L Normal 150.0-500.[address] [facility] Comment on above: Performed By: #### 2 048595, 5212963, 5119083, 92628002, 9635492 ####[facility] [address] [place] [address] RBC (Bld) [#/Vol] 4.0 E12/L Low 4.3-5.[address] [facility] Comment on above: Performed By: #### 2 657517, 2010501, 6308228, 67031332, 7302365 ####[facility] [address] [place] [address] WBC corrected for nucl RBC Auto (Bld) [#/Vol] 8.1 E9/L Normal 4.0-11.0 [facility] Comment on above: Performed By: #### 2 750441, 1366290, 0730173, 46509653, 9286275 ####[facility] [address] [place] [address] CHEMISTRYOrdered By: SYSTEM SYSTEM on 06-21-2023 Albumin [...] 06-21-2023 Albumin [Mass/Vol] 3.8 g/dL Normal 3.3-5.[address] [facility] Comment on above: Performed By: #### 2 413200, 4018026, 8788584, 29215132, 8997628 ####[facility] [address] [place] [address] Albumin/Globulin [Mass ratio] 1.3 {ratio} Normal 1.1-2.[address] [facility] Comment on above: Performed By: #### 2 527737, 6618242, 0905929, 46064473, 9081903 ####[facility] [address] [place] [address] Alk Phos 83 Int._Unit/L Normal 21-98 [facility] Comment on above: Performed By: #### 2 637785, 8826331, 2224504, 99455821, 8834832 ####[facility] [address] [place] [address] ALT 10 Int._Unit/L Normal 6-46 [facility] Comment on above: Performed By: #### 2 020928, 3895181, 1269668, 31489185, 3091162 ####[facility] [address] [place] [address] Anion gap [Moles/Vol] 10 mmol/L Normal 6-16 [facility] Comment on above: Performed By: #### 2 459842, 4352333, 3176535, 59421186, 8003013 ####[facility] [address] [place] [address] AST 15 Int._Unit/L Normal 5-43 [facility] Comment on above: Performed By: #### 2 915079, 1692175, 9492957, 26840880, 0170944 ####[facility] [address] [place] [address] Bili Total 0.5 mg/dL Normal 0.0-1.[address] [facility] Comment on above: Performed By: #### 2 436021, 3529066, 4732445, 42654454, 4838476 ####[facility] [address] [place] [address] BUN/Creat Ratio 22 No Units High 10-20 [facility] Comment on above: Performed By: #### 2 928152, 6861686, 6583260, 54196760, 0874297 ####[facility] [address] [place] [address] Calcium [Mass/Vol] 8.7 mg/dL Low 8.9-11.[address] [facility] Comment on above: Performed By: #### 2 507848, 8067379, 9052373, 59883426, 1074234 ####[facility] [address] [place] [address] Chloride [Moles/Vol] 103 mmol/L Normal 101-[address] [facility] Comment on above: Performed By: #### 2 153683, 2643840, 1766658, 21590274, 4010191 ####[facility] [address] [place] [address] CO2 [Moles/Vol] 29 mmol/L Normal 21-31 [facility] Comment on above: Performed By: #### 2 646428, 3656280, 0160180, 38976682, 0646729 ####[facility] [address] [place] [address] Creatinine [Mass/Vol] 0.6 mg/dL Normal 0.5-1.3 [facility] Comment on above: Performed By: #### 2 945788, 1068523, 6129782, 73362260, 2393589 ####[facility] [address] [facility] [place] [address] Globulin (S) [Mass/Vol] 3.0 g/dL Normal 1.4-4.[address] [facility] Comment on above: Performed By: #### 2 605032, 8485521, 6397338, 85361371, 4920130 ####[facility] [address] [place] [address] Glucose [Mass/Vol] 84 mg/dL Normal 55-[address] [facility] Comment on above: Performed By: #### 2 023751, 4924676, 5152198, 50252262, 0218763 ####[facility] [address] [place] [address] Potassium [Moles/Vol] 3.9 mmol/L Normal 3.5-5.3 [facility] Comment on above: Performed By: #### 2 453605, 2372854, 7159380, 45996577, 8568268 ####[facility] [address] [place] [address] Protein [Mass/Vol] 6.8 g/dL Normal 6.0-7.[address] [facility] Comment on above: Performed By: #### 2 581217, 2546787, 0053424, 70330217, 2125851 ####[facility] [address] [place] [address] Sodium [Moles/Vol] 138 mmol/L Normal 135-[address] [facility] Comment on above: Performed By: #### 2 500950, 6228250, 2047777, 29667501, 2462239 ####[address] [place] [address] Urea nitrogen [Mass/Vol] 13 mg/dL Normal 5-[address] [facility] Comment on above: Performed By: #### 2 133264, 0879734, 1065019, 84434122, 4698840 ####[address] [address] Consent for Treatmenton 05-25 Consent for Treatment [id number] E8#1.00TIFF Normal [facility] Free T4on 06-21-2023 Free T4 [Mass/Vol] 1.37 ng/dL Normal 0.58-1.[address] [facility] Comment on above: Performed By: #### 2 220070, 0571604, 0236606, 99461591, 3525487 ####[facility] [address] [place] [address] HEMATOLOGYOrdered By: SYSTEM SYSTEM on 06-21-2023 Basophils/100 [...] 8.1 E9/L Normal 4.0 - 11.0 E9/L [facility] Physician Orderon 06-21-2023 Physician Order [id number] 911#1.00TIFF Normal [facility] T3 Uptakeon 06-21-2023 T3 Uptake 46.6 % Normal 32.0-48.[address] [facility] Comment on above: Performed By: #### 2 449565, 81752118, 2873479, 4325514 ####[facility] [address] [place] [address] T4 Totalon 06-21-2023 T4 18.8 microgram/dL High 4.6-9.[address] [facility] Comment on above: Performed By: #### 2 316441, 65268666, 9191794, 8491186 ####[facility] [address] [place] [address] TSHon 06-21-2023 TSH Qn 0.07 m[IU]/L Low 0.34-5.[address] [facility] Comment on above: Performed By: #### 2 287326, 00498103, 5367569, 2970377 ####[facility] [address] [place] [address] eGFRon 06-21-2023 GFR/1.73 sq M.predicted among non-blacks MDRD (S/P/Bld) [Vol rate/Area] mL/min/{1.73_m2} Normal >=[address] [facility] Comment on above: Order Comment: Order added by Discern Expert. Performed By: #### 2 825142, 1185581, 6308399, 21420575, 6215325 ####[facility] [address] [place] [address] Family Medicine Office/Clini c Noteon 06-20-2023 Family Medicine Office/Clinic Note Chief Complaint left ear pain, swollen cheeks, facial pain, sore throat, lump in throat HPI Staff Emily is a 37 year old female here [...] with voice recognition software. Occasional wrong-word or ?fnbat-x-ootj? substitutions may have occurred due to the [...] know she has been working with her FINANCIAL REPORTING ADVISOR in regards to blood test and lab [...] lost some weight. But again is seeing FINANCIAL REPORTING ADVISOR in regards to these fluctuations denies any [...] with prim (more content not included)... Normal [facility] Comment on above: Result Comment: Elec tronically Signed By: Shoaib BRADSHAW, Filiberto Pulliam\.br\Date and Time Signed: 06/20/23 21:08 EST Patient [...] weeks. Home care treatment may include: ? Ajfj-ihf-fxbirgi pain relievers. ? A warm, moist cloth placed over the ear. Severe cases may require a procedure to insert tubes in the ears (tympanostomy tubes) to drain the fluid. Follow these instructions at home: ? Take cabo-jsw-nabqgwy and prescription medicines only as told by [...] provider. Document Revised: 10/04/2021 Document Reviewed: 10/04/2021 [employer] Patient Education ? 2022 [employer] Endocrinology Thyroid Nodule A thyroid nodule [...] hyperthy (more content not included)... Normal [facility] MRI Spine Cervical w/o Contr elvira 06-10-2023 [...] or neural foraminal narrowing. Ordering Provider: Sharona Thompson FINAL REPORT Dictated: 06/10/2023 10:16 am Jose Tatum MD, V. Signed (Electronic Signature): 06/10/2023 10:16 am Signed by: Jose Tatum MD, V. Transcribed by: YAMINI Technologist: CAPRI Technical Comments None Normal [facility] Consent for Treatmenton 05-23 Consent for Treatment [id number] B3#1.00TIFF Normal [facility] RAD - MRI Screening Formon 1 08-10-2022 RAD - MRI Screening Form [id number] 607#1.00TIFF Normal [facility] Physician Orderon 06-03-2023 Physician Order [id number] 97#1.00TIFF Normal [facility] Consent for Treatmenton 0 Consent for Treatment [id number] 29#1.00TIFF [facility] Physician Orderon 04-28-2023 Physician Order [id number] 45#1.00TIFF [facility] XR Spine Cervical 4 or 5 Vie [...] , FINAL REPORT Dictated: 04/28/2023 4:28 pm SignCassius pace MD Signed (Electronic Signature): 04/28/2023 4:28 pm Signed by: SignCassius pace MD Transcribed by: YAMINI Technologist: DIPTI Technical Comments Radiation Dose: Ka,r in mGy = na DAP = na Normal [facility] EMG Electromyographyon 01-21 EMG Electromyography [id number] 629#1.00CD:[address] [facility] Consultation Noteon 01-16-20 Consultation Note [id number] 77#1.00CD:[address] [facility] Auth for Release of Medical Recordson 12-17-2022 Auth for Release of Medical Records [id number] EC#1.00CD:[address] [facility] Consultation Noteon 11-16-19 Consultation Note [id number] EB#1.00CD:[address] [facility] EMG Electromyographyon 10-17 EMG Electromyography [id number] 24#1.00CD:[address] [facility] Consultation Noteon 10-08-19 Consultation Note [id number] 45#1.00CD:[address] [facility] Consultation Noteon 07-31-19 Consultation Note [id number] D9#1.00CD:[address] [facility] XR lumbar spine AP/LAT/FLX/E XTon 12-28-2021 XR lumbar spine AP/LAT/FLX/EXT [address] [address] XRay Report Signed Patient: Emily Valiente MR#: [id number] : 1985 Acct:[id number] Age/Sex: 36 / F ADM Date: 12/28/21 Loc: XD Room: Type: REG CLI Attending Dr: Ric Tinoco MD Copies to: [...] complication. Impression dictated by: Malik Jenkins Jr., D.O.12/28/2021 1:49 PM Dictation Location: [place] [address] Transcribed By: [facility] 12/28/21 1349 Dictated By: Malik Jenkins Jr, DO 12/28/21 1347 Signed By: 12/28/21 1349 [facility] CHEMISTRYOrdered By: SYSTEM SYSTEM on 12-03-2021 Free [...] Not detected Invalid Interpretation Code Not Detected [facility] SendOutsSS Comment on above: Result Comment: This nucleic acid amplification test was developed and its performance characteristics determined by [email or web address]. Nucleic acid amplification tests include RT-PCR and [...] detected) result in this assay. Performed at: [facility] [id number] PhD Mhanaz Conklin XR lumbar spine AP/LAT/FLX/E XTon 04-17-2021 XR lumbar spine AP/LAT/FLX/EXT [facility] Main Maria Stein [address] [place] [address] XRay Report Signed Patient: Emily Valiente MR#: [id number] : 1985 Acct:[id number] Age/Sex: 35 / F ADM Date: 04/17/21 Loc: XD Room: Type: [facility] Attending Dr: Ric Tinoco MD Ordering Provider: [...] Payne II, MD 04/17/211705 Signed By: 04/17/211706 [facility] Vital Signs Date Time Vital Sign Value Performing Clinician Facility 06-24-2023 13:49-0500 Blood Pressure Location Paul Gudimella [facility] 06-24-2023 13:49-0500 Diastolic blood pressure 72 mm[Hg] Paul Gudimella [facility] 06-24-2023 13:49-0500 Heart rate 89 /min Paul Gudimella [facility] 06-24-2023 13:49-0500 SaO2% (BldA) [Mass fraction] 97 % Paul Gudimella [facility] 06-24-2023 13:49-0500 Systolic blood pressure 98 mm[Hg] Paul Gudimella [facility] 06-20-2023 18:43-0500 Blood Pressure Location Filiberto Cramer [facility] 06-20-2023 18:43-0500 Body temperature 98.06 [degF] Filiberto Cramer [facility] 06-20-2023 18:43-0500 Diastolic blood pressure 76 mm[Hg] Filiberto Cramer [facility] 06-20-2023 18:43-0500 Heart rate 96 /min Filiberto Cramer [facility] 06-20-2023 18:43-0500 SaO2% (BldA) [Mass fraction] 98 % Filiberto Cramer [facility] 06-20-2023 18:43-0500 Systolic blood pressure 122 mm[Hg] Filiberto Cramer [facility] [facility] 12-28-2021 11:20-0400 Body height 167.64 cm Ric Tinoco Other [facility] Other 12-28-2021 11:20-0400 Body mass index (BMI) [Ratio] 21.14 kg/m2 Ric Tinoco Other [facility] Other 12-28-2021 11:20-0400 Body weight 59.42 kg Ric Tinoco Other [facility] Other 04-17-2021 15:40-0400 Body height 167.64 cm Ric Tinoco Other [facility] Other 04-17-2021 15:40-0400 Body mass index (BMI) [Ratio] 21.14 kg/m2 Ric Tinoco Other [facility] Other 04-17-2021 15:40-0400 Body weight 59.42 kg Ric Tinoco Other [facility] Other 05-31-2020 15:50-0500 Body weight 63.96 kg [facility] [place] 05-31-2020 15:50-0500 BP Diastolic 79 mm[Hg] [facility] [place] 05-31-2020 15:50-0500 BP Systolic 107 mm[Hg] [facility] [place] 05-31-2020 15:50-0500 Pulse (Heart Rate) 67 /min [facility] 05-31-2020 15:50-0500 Pulse Oximetry 100 % Kathy [facility] , [place] 05-31-2020 15:50-0500 Respiratory Rate 20 /min Kathy [facility] [place] Encounters Encounter Date Encounter Type Care Provider Facility Start: 07-29-2023 ambulatory Nancy Russell ity: [facility] Start: 07-04-2023 End: 07-04-2023 ambulatory MARTA PUENTE Not Available Start: 06-27-2023 ambulatory Paul Gudimella Facilit y:[facility] Start: 06-27-2023 End: 06-28-2023 ambulatory Paul Gudimella [place] Start: 06-27-2023 End: 06-27-2023 Patient encounter procedure Paul Gudimella [facility] Start: 06-24-2023 End: 06-25-2023 ambulatory Paul Gudimella Facility:[facility] Start: 06-24-2023 End: 06-24-2023 Patient encounter procedure Paul Gudimella [facility] Start: 06-21-2023 End: 06-22-2023 ambulatory Filiberto Cramer Facility[facility] Start: 06-21-2023 End: 06-21-2023 Patient encounter procedure Filiberto Cramer [facility] Start: 06-20-2023 End: 06-21-2023 ambulatory Filiberto Cramer Facility: [facility] Start: 06-20-2023 End: 06-20-2023 Patient encounter procedure Filiberto Cramer [facility] Start: 06-09-2023 End: 06-10-2023 ambulatory Narguerita Lakshmipathy Facility[facility] Start: 06-09-2023 End: 06-09-2023 Patient encounter procedure Narendranath Concepciónmipathy [facility] Start: 05-07-2023 End: 05-07-2023 ambulatory ALYSIA PARK Not Available Start: 04-28-2023 ambulatory Anitra BARRIENTOS Facility: [facility] Start: 04-28-2023 End: 04-29-2023 ambulatory EBER GARCIA LEONEL Facility[facility] Start: 04-28-2023 End: 04-28-2023 Patient encounter procedure EBER BLACKWELLDerek CASTANEDA [facility] Start: 11-05-2022 End: 11-06-2022 ambulatory SHARONA WILKINSMIPATHY . Facility: Start: 10-22-2022 End: 10-22-[address] DOCTOR ALEJANDRE Facility:[facility] Start: 10-01-2022 End: 10-02-2022 ambulatory ISAURA KELLY . Facility:[facility] Start: 08-27-2022 End: 08-27-2022 ambulatory Ric Tinoco Other [facility] Other Start: 08-27-2022 Telephone encounter Ric Tinoco [facility] Start: 06-11-2022 End: 06-12-[address] HERB RIVERO . Facility: Start: 05-28-2022 End: 05-28-[address] HERB RIVERO . Facility:[facility] Start: 03-05-2022 End: 03-06-[address] HERB RIVERO . Facility:[facility] Start: 12-28-2021 End: 12-28-2021 ambulatory Ric Tinoco Other [facility] Other Start: 12-28-2021 Office outpatient visit 15 minutes Ric Tinoco [facility] Start: 12-03-2021 End: 12-03-2021 Patient encounter procedure Alysia Park [facility] Start: 11-08-2021 End: 11-09-[address] HERB RIVERO . Facility: Start: 07-13-2021 End: 10-11-2021 Patient encounter procedure Nancy BARRIENTOS [facility] Start: 04-17-2021 Office outpatient visit 15 minutes Ric Tinoco [facility] Start: 05-31-2020 End: 05-31-2020 Emergency department patient visit KATHY GHOSH [facility] Start: 05-31-2020 End: 05-31-2020 [facility] ED Comment on above: Chest wall pain (Brunilda michelet Dx) Start: 12-30-2018 End: 01-07-2019 Patient encounter procedure PROVIDER UNKNOWN Facility:[facility] Procedures Date Procedure Procedure Detail Performing Clinician Start: 06-12-2020 Local anesthetic sac ral epidural block Nancy BARRIENTOS Comment on above: @ [facility] per [facility] mgmt Start: 05-31-2020 Ecg routine ecg w/le ast 12 lds w/i&r KATHY GHOSH Start: 05-31-2020 Ecg routine ecg w/le ast 12 lds w/i&r Kathy Ghosh Work Phone: Start: 12-06-2019 Interbody fusion of lumbar spine by anterior approach Nancy BARRIENTOS Comment on above: [facility] Start: 06-19-2018 Removal of sebaceous cyst Nancy BARRIENTOS Comment on above: Right inner thigh Start: 06-23-2006 Augmentation mammoplasty Nancy BARRIENTOS laparoscopy 4 Nancy HYDE Comment on above: 2014 Dr. Redd- endo metriosis lumbar microdisectomy 5 Rex BARRIENTOS Comment on above: 10/2017 Dr. Barnes @ [facility] 6 Nancy BIRCH Comment on above: per Dr. Glez 8 wisdom teeth extracted Ruben BARRIENTOS Plan of Treatment Date Care Activity Detail Author Start: 02-22-2020 Influenza vaccination Flu vaccine (# 1) [place], [place] EKG 12 Lead EKG 12 Lead ECG STAT 05/31/2020 4:01 PM EST [place] Immunizations Immunization Date Immunization Notes Care Provider Fa cility 10-28-2020 COVID-19, mRNA, LNP-S, PF, 30 mcg/0.3 mL dose; Translations: [Pfizer-BioNTech COVID-19 Vaccine] Nancy BARRIENTOS [facility] Comment on above: Reason for Medicatio n: Prophylaxis 10-07-2020 COVID-19, mRNA, LNP-S, PF, 30 mcg/0.3 mL dose; Translations: [Pfizer-BioNTech COVID-19 Vaccine] Nancy BARRIENTOS [facility] Comment on above: Reason for Medicatio n: Prophylaxis 04-15-2020 influenza, injectable, quadrivalent, contains preservative Nancy BARRIENTOS [facility] 03-23-2018 influenza virus vaccine, unspecified formulation Nancy BARRIENTOS [facility] 03-10-2013 tetanus toxoid, reduced diphtheria toxoid, and acellular pertussis vaccine, adsorbed Nancy BARRIENTOS [facility] Comment on above: Reason for Medicatio n: Other (see comment) 10-13-2007 tetanus toxoid, reduced diphtheria toxoid, and acellular pertussis vaccine, adsorbed Filiberto Cramer [facility] 10-24-1999 hepatitis A and hepatitis B vaccine Filiberto Cramer [facility] 01-25-1998 measles, mumps and rubella virus vaccine Filiberto Cramer [facility] NEGATED: Highlighted row has not occurred!06-20-2023 influenza virus vaccine, unspecified formulation Filiberto Cramer [facility] Payers Date Payer Category Payer Medicaid [id number] 2006 Private Health Insurance [id number] 1984 Unknown [id number] 2.16.8 [id number] 1984 Unknown [id number] 2.16.84 0.1.069387.3.579.2.174 1984 Unknown [id number] 2.16.84 0.1.629987.3.579.2.593 1984 Unknown [id number] 2.16.84 0.1.288488.3.579.2.593 1984 Unknown [id number] 2.16.84 0.1.333920.3.579.2.593 1984 Unknown [id number] 2.16.84 0.1.679449.3.579.2.593 1984 Unknown [id number] 2.16.84 0.1.695064.3.579.2.593 1984 Unknown [id number] 2.16.84 0.1.284834.3.579.2.593 1984 Unknown [id number] 2.16.84 0.1.067728.3.579.2.593 1984 Unknown [id number] 2.16.8 40.1.033269.3.579.2.727 1984 Unknown [id number] 2.16.8 40.1.758833.3.579.2.727 1984 Unknown [id number] 2.16.8 40.1.673897.3.579.2.727 1984 Unknown [id number] 2.16.8 40.1.281315.3.579.2.727 1984 Unknown [id number] 2.16.8 40.1.682288.3.579.2.727 1984 Unknown [id number] 2.16.8 40.1.071719.3.579.2.727 1984 Unknown [id number] 2.16.8 40.1.874895.3.579.2.727 1984 Unknown [id number] 2.16.8 40.1.932386.3.579.2.727 1984 Unknown [id number] 2.16.8 40.1.416661.3.579.2.727 1984 Unknown [id number] 2.16.84 0.1.991808.3.579.2.1259 1984 Unknown [id number] 2.16.840 .1.555641.3.579.2.1259 1959 Private Health Insurance [id number] Social History Date Type Detail Facility Start: 05-31-2020 End: 06-24-2023 Tobacco smoking status MEIS Never smoker [place] Start: 05-31-2020 Tobacco use and exposure Never used [place] Sex Assigned At Not on file [place] Exposure to SARS-CoV -2 (event) Not sure [place] Tobacco smoking status Never [facility] Sex Assigned At Female [facility] Other Functional Status Date Assessment Result Facility 06-24-2023 Functional Status N/A [facility] [place] 06-20-2023 Functional Status N/A [facility] Clinical Notes 04-17-2021 to 06-21-2023 LaboratoryLaboratory Note Date & Type Note Facility 06-21-2023 Evaluation + Plan note Diagnostic Tests PendingT3 Free 06/21/23 Future Scheduled TestsCBC w/ Auto Diff 06/20/23Comprehensive Metabolic Panel 06/20/23Free T4 06/20/23 [facility] 06-20-2023 Hospital Discharge instructions Patient Education 06/20/2023 [...] few weeks. Home care treatment may include: Tttb-yth-eehmgyc pain relievers. A warm, moist cloth placed over the ear. Severe cases may require a procedure to insert tubes in the ears (tympanostomy tubes) to drain the fluid. Follow these instructions at home: Take lmbg-qoj-pbcxapk and prescription medicines only as told by [...] provider. Document Revised: 10/04/2021 Document Reviewed: 10/04/2021 [employer] Patient Education 2022 [employer] 06/20/2023 19:03:16 Thyroid Nodule Thyroid Nodule A [...] in your thyroid nodule or nodules. Take ezcf-pmd-bhasxhz and prescription medicines only as told by [...] provider. Document Revised: 04/22/2022 Document Reviewed: 04/22/2022 [employer] Patient Education 2022 [employer] Follow Up Care 06/20/2023 07:23:01 With:JUAN LUIS REES, SAMIR [place] Address: [address] [place] [id number] When: Unknown [facility] 06-20-2023 Evaluation + Plan note Future Scheduled TestsT4 Total 06/20/23CBC w/ Auto Diff 06/20/23Comprehensive Metabolic Panel 06/20/23T3 Free 06/20/23T3 Uptake 06/20/23Thyroid Stimulating Hormone 06/20/23Free T4 06/20/23 [facility] 10-01-2022 Note CONSULTATION CONSULTATION [...] our patients to inform us about any umjt-prs-rqpdrdv medications or herbal remedies/nutritional supplements/alternative remedies. 2. [...] options with their primary care provider. [facility] 06-11-2022 Note CONSULTATION CONSULTATION DATE: 06/11/2022 [...] and concurs. CC: Nancy Barrientos M.D. [facility] 03-05-2022 Note PAIN MANAGEMENT CONS ULTATION [...] along this region. CC: Dr. Barrientos [facility] 12-28-2021 Evaluation note Encounter Date Diagnosis [...] follow her up on an as-needed basis [facility] Other 06-13-2022 Evaluation + Plan note Diagnostic Tests Pending * Insulin Level Total 12/03/21 * T3 Free 12/03/21 * FSH Level 12/03/21 Future Scheduled Tests Laboratory* COVID-19 [place] 07/13/21 [facility]05-19-2022 NoteCONSULTATION CONSULTATION DATE: 11/08/2021 This is a [...] does plan on seeing Dr. Damon in [place] for. Activities that aggravate her neck are [...] of care and would like to proceed. [facility] Signed and Approved by: ISAURA KELLY . 11/12/2021 15:05:00[facility]01-21-2022 Evaluation + Plan note Future Scheduled Tests Laboratory* COVID-19 ([facility] 07/13/21 [facility]10-26-2021 Evaluation note* Encounter Date Diagnosis Assessment Notes Treatment Notes Treatment Clinical Notes Mar, Spondylolisthesis at L5-S1 level (ICD-10 - M43.17) I answered a number of questions for the patient. I think a transforaminal injection may be beneficial. I also believe that she could potentially benefit from a dorsal column stimulator. She is seeing a another neurologist at [facility] and I am interested in what medication changes are made. I will see the patient again in 3 months and review this with her. I looked at the picture of the spine today she has good bone formation and her [employer]IV[employer] hardware is intact. Because of the persistent [...] region with neurogenic claudication (ICD-10 - M48.062) [facility] Other evaluation + Plan note Future Appointments Appointment Date:06/27/2023 07:30:00 AM Scheduled Provider: Location:.[facility] Appointment Type:US Thyroid/Neck/Chest () Appointment Date:06/27/2023 08:00:00 AM Scheduled Provider: Location:.CARDIO Appointment Type:CV EKG () Appointment Date:07/29/2023 12:40:00 PM Scheduled Provider:Nancy BARRIENTOS MD Location:[facility] Appointment Type: Open Future Scheduled Tests Laboratory* UA With Cult Reflex 06/24/23 * CBC w/ Auto Diff 06/20/23 * Comprehensive Metabolic Panel 06/20/23 * Lipid Panel 06/24/23 * Free T4 06/20/23 Radiology* US Thyroid 06/27/23 [facility] [place] Evaluation + Plan note Future Appointments Appointment Date:07/29/2023 12:40:00 PM Scheduled Provider:Nancy BARRIENTOS MD Location:[facility] Appointment Type: Open Future Scheduled Tests Laboratory* UA With Cult Reflex 06/24/23 * CBC w/ Auto Diff 06/20/23 * Comprehensive Metabolic Panel 06/20/23 * Lipid Panel 06/24/23 * Free T4 06/20/23 Radiology* US FNA w/ Guidance, first lesion 06/27/23 * NM Thyroid Imaging w/ Uptk Multiple 06/27/23 [facility] Other History general Narrative - Reported* Type Description Date Medical History Breast augmentation Surgical History Laproscopic SAMAN removal of Endo metriosis Dr. Rosales 2014 Surgical History Laproscopic removal of endometr iosis 2014 Surgical History Cortisone injection and nerve a blations in back 2016 Surgical History steroid injection/nerve ablatio n (back) 2015 Surgical History breast augmentation Surgical History breast implants replaced 2017 Surgical History LAVH/BSO 09-11-17 Surgical History Micro discectomy L5-S1 2017 Surgical History Hysterectomy; total 08/2017 Surgical History Micro discectomy L5-S1 10/2017 Surgical History ALIF-Doctor Alejandrina Hospitalization History see surgical hx [facility] Other Hospital course Narrative No data available for this section [facility] No data available for this section [facility] No data available for this section [facility] Summary Purpose Family History No Family History Records FoundNo Family History Records FoundNo Family History Records FoundNo Family History Records Found No data available for this section No data available for this section No data available for this section No data available for this section No data available for this section No data available for this section No Family History Records FoundNo Family History Records Found Advance Directives No Advanced Directives Records FoundDocuments on File Type Date Recorded 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 * Chest Pain: Musculoskeletal (Taiwanese) documented in this encounter Assessments Diagnosis Chest wall pain Painful respiration Reason for Referral Reason Evaluate and Treat C onsider for Dorsal Column Stimulator Diagnosis 1 Spondylolisthesis at L5-S1 level (M43.17) Referral Organization [facility] Ne urosurgery Referring Provider First Name Ric Referring Provider Last Name Alejandrina Referring Provider Specialty Neurologica l Surgery Referred Organization Unknown Facility Referred Provider Mansoor Summers Referred Provider Specialty Pain Medicin e Referral Priority Routine Additional Source Comments INFORMATION SOURCE (unrecogn ized section and content) DATE CREATED AUTHOR 01/14/2020 [facility] DATE CREATED AUTHOR AUTHOR'S ORGANIZ ATION 06/01/2020 Kelli rosales DATE CREATED AUTHOR AUTHOR'S ORGANIZ ATION 01/11/2022 [facility] DATE CREATED AUTHOR AUTHOR'S ORGANIZ ATION 11/06/2022 [facility] DATE CREATED AUTHOR AUTHOR'S ORGANIZ ATION 06/28/[address] [facility] DATE CREATED AUTHOR AUTHOR'S ORGANMARCIA ATION 07/05/2023 [facility] EPIC Reason for Visit (unrecogniz ed section and content) Reason Comments Chest Pain intermittent chest p ain under left breast started last night, few episodes today, lasting approx 30 seconds, reports feeling more tired today Care Team (unrecognized sect ion and content) Personnel Name: Nancy BARRIENTOS MD Address: [address] [place] [address] Personnel Name: Nancy BARRIENTOS MD Address: Address: [address] [place] [address] Personnel Name: Nancy BARRIENTOS MD Address: Address: [address] [place] [address] Personnel Name: Nancy BARRIENTOS MD Address: Address: [address] [place] [address] Personnel Name: Nancy BARRIENTOS MD Address: Address: [address] [place] [address] Personnel Name: Nancy BARRIENTOS MD Address: Address: [address] [place] [address] Personnel Name: Nancy BARRIENTOS MD Address: Address: [address] [place] [address] FOR RECORDS PERTAINING TO PATIENTS WHO ARE [...] BE BASED ON THE PRIMARY CLINICAL RECORDS. [employer] [facility]. provides no warranty or guarantee of the accuracy or completeness of information in this document.
[2023-07-14 12:30] VITALS: BP 95/66; PULSE 89; O2SAT 97
[2023-07-14] MEDS: LIDOCAINE HCL 10 ML, SODIUM BICARBONATE 1 MEQ INJ (13:10)
--- NOTE | 2023-07-14 14:19 | SUR.PREOP ---
07/10/23 Pt instructed on date, time, prep, and procedure.
== END 2023-07-14 13:30 | disposition home or self-care (01) ==
LOC: US 11:59
PROVIDERS: Radiology Diagnostic Radiology; Visit Provider Otolaryngology
DX: E04.1 Nontoxic single thyroid nodule (principal)
CPT/HCPCS: 10005; 88173

== ENCOUNTER 2023-07-29 10:36 | Outpatient (OUT) | payer MEDICAID, SELFPAY ==
--- NOTE | 2023-07-29 | CONS_ITS ---
CONSULTATION DATE: 07/29/2023 TO: Dr. Wanda Barrientos CHIEF COMPLAINT: Includes bilateral lower back pain, bilateral leg pain, mainly in the thigh area. HISTORY: She describes the pain above being 6/10, deep aching in character with an occasional sharp component. Seems to increase and decrease with activities such as standing, walking and performing transitioning maneuvers. She feels most comfortable in the semi-recumbent position. She denies any change in bowel and bladder habits or new sensorimotor change in the lower extremities. CURRENT MEDICATION: Includes ibuprofen 800 mg t.i.d. p.r.n., gabapentin she takes approximately 100-200 mg in the late morning and 600 mg at bedtime, baclofen 10 mg b.i.d. during the daytime, tizanidine 4 mg at h.s., tramadol 50 mg t.i.d. She reports the medicines do improve her quality of life, level of functioning and sleep pattern at times. She reports the tramadol is effective in controlling her pain symptoms, and she denies any side effects of the same. EXAMINATION: Patient has no clinical radiculopathy or myelopathy involving the lower extremities. Patient continues to have hypoesthesia along the right L5 dermatome with distal right extensor hallucis, straight leg raise equivocally positive at approximately 90 degrees, depressed right Achilles reflex. She had nothing on examination to suggest myelopathy involving her lower extremities. She does have dysesthesia and hyperesthesia along the distribution of the superior gluteal nerve, worse on the left than the right side, with associated myofascial spasm of the gluteus medius muscle bilaterally, worse on the left than the right as well. She appears to have generalized tenderness of multiple muscle groups, includes tenderness involving flexors and extensors of her upper extremities, trapezius, deltoid, erector spinae, quadriceps, gluteus sari and quadriceps and hamstrings. IMPRESSION: Our impression is: 1. 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 2. 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 3. General malaise and tenderness involving multiple muscle groups. Patient attributes this to her thyroid issues. RECOMMENDATIONS: I have recommended the patient continue with the gabapentin. We have refilled the gabapentin 100 mg pills. Two pills are taken in the late morning or early afternoon, and 600 mg are taken at bedtimes. We have also recommended aquatic therapy. She refuses to do the same. Thus, she will continue with the current regimen otherwise, and see the patient back in the office in six weeks? time or sooner if needed. As part of providing excellent, safe, comprehensive care, the following was completed at our patient's visit: 1. A medication reconciliation and review to ensure accurate knowledge of current/active medications, including asking our patients to inform us about any xpbi-ihk-uocutdz medications or herbal remedies/nutritional supplements/alternative remedies. 2. A review to specifically ensure our patients have had annual screening for: elevated body mass index (BMI, see intake chart for exact total), tobacco use, screening for depression, and screening for unhealthy alcohol use. When screening is concerning, patients are provided with education and the specific recommendation to discuss the concerning health issue and treatment options with their primary care provider. PATRICK
--- OUTSIDE RECORDS SUMMARY | 2023-07-29 10:40 | XMS_ITS | CCD ---
Author Name Unknown Address [address] [place] [address] Organization [facility] Care Team Providers Care Personal Consultant Name Role Phone UNKNOWN, PROVIDER Admitting Unavailable UNKNOWN, PROVIDER Attending Unavailable UNKNOWN, PHYSICIAN Referring Unavailable UNKNOWN, PHYSICIAN Primary Care Unavailable Nancy Barrientos Primary Care Provider KATHY GHOSH Attending Unavailable NANCY BARRIENTOS Primary Care Unavailable Nancy BARRIENTOS Primary Care Physician [phone] Ric Tinoco Unavailable JOSEFA ., DR HERB [...] JOSEFA ., DR HERB Melgar Attending Unavailable HILL, DR MURRIETA Primary Care Unavailable JOSEFA ., DR HERB Melgar Consulting Unavailable JOSEFA ., DR HERB Melgar Admitting Unavailable ROBIN .ISAURA Consulting Unavailable MARTA PUENTE Attending Unavailable KALI PAUL Referring Unavailable KRAIG PARK Attending Unavailable MD Ruben Barrientos Primary Care Provider [phone] MD Marta Puente Jr Attending Provider UnaMarta Killian Jr Attending Unavailable Marta Puente Jr Admitting Unavailable Ruben Barrientos Primary Care Unavailable Filiberto Cramer Admitting Unavailable Filiberto Cramer Attending Unavailable MD Kali Paul Attending Unavailable MD Kali Paul Admitting Unavailable MD Kali Paul Admitting Unavailable MD Kali Paul Attending Unavailable MD Kali Paul Referring Unavailable Filiberto Cramer Attending Unavailable MD Kali Paul Attending Unavailable MD Kali Paul Attending Unavailable MD Kali Paul Attending Unavailable Nancy BARRIENTOS Attending Unavailable Anitra BARRIENTOS Attending Unavailable Nancy BARRIENTOS Attending Unavailable MD Kali Paul Admitting Unavailable MD Kali Paul Attending Unavailable MD Kali Paul Referring Unavailable Lakshmipathy, Narendranath Admitting Unava ilable Lakshmipathy, Narendranath Attending Unava ilable Lakshmipathy, Narendranath Referring Unava ilable EBER CASTANEDA Admitting Unavailable EBER CASTANEDA Attending Unavailable Allergies Allergy Classification Reported Allergen(s) Allergy Type Date of Onset Reaction(s) Facility (1 source) Adhesive agent; Translations: [Unknown] Propensity to adverse reactions (disorder) 9 [facility]ository (12 sources) Adhesive Tape; Translations: [Tape] Drug allergy Eruption of skin (disorder) [facility] (15 sources) Latex; Translations: [Latex] Drug allergy Unknown [facility] Other (3 sources) adhesive bandages Propensity to adverse reactions rash Dynamighty Other (1 source) Adhesive agent Drug allergy (disorder) 6 [facility] Repository (1 source) Adhesive Tape Drug allergy (disorder) 0 [facility] Repository Medications Current Medications Medication Drug [...] Status: Ordered baclofen 10 mg oral tablet (10 sources) gamma-Aminobutyric Acid-ergic Agonist Start: 10-18-2021 take 0.5-1 tablets [...] course, # 28 cap(s), Refills(s) 0, Pharmacy: [id number], 168, cm, 07/11/20 8:27:00 EST, Height/Length Dosing, 64.1, kg, 07/11/20 8:27:00 EST, Weight Dosing Start Date: 07/11/20 Status: Ordered cephalexin 500 mg oral capsule (1 source) Cephalosporin Antibacterial Start: 12-08-2019 take 1 capsule by mouth every eight hours Cephalexin (Keflex) 500 mg capsule Active 500 MG PO Q8H December 07, 2019 11:00pm cetirizine hydrochloride 10 mg oral tablet (4 sources) Histamine-1 Receptor Antagonist Start: 11-23-2020 take 1 tablet by mouth once daily cetirizine 10 mg Tab 10 mg = 1 tab(s), Oral, Daily, # 90 tab(s), Refills(s) 1, Pharmacy: [id number], 168, cm, 07/11/20 8:27:00 EST, Height/Length Dosing, 64.1, kg, 07/11/20 8:27:00 EST, Weight Dosing Start Date: 11/23/20 Status: Ordered cyclobenzaprine hydrochloride 10 mg oral tablet (4 sources) Muscle Relaxant Start: 09-04-2017 End: 12-08-2019 take 10 mg by mouth three times daily Cyclobenzaprine Active 10 MG PO Three times daily 50 December 07, 2019 11:00pm 1 ml erenumab-aooe 140 mg/ml auto-injector (12 sources) Start: 11-30-2019 inject 140 mg by subcutaneous injection every month Erenumab-Aooe (Aimovig Autoinjector) 140 mg/mL Auto-Injector Active 140 MG SUBCUT every month November 29, 2019 11:00pm Start: 02-01-2019 inject 140 mg by sub cutaneous injection every month Aimovig SureClick 70 mg/mL subcutaneous solution 140 mg, SubCutaneous, qMonth, Refills(s) 0 Start Date: 02/01/19 Status: Ordered Erenumab-aooe (AIMOVIG) 140 MG/ML SOAJ (1 source) Erenumab-aooe (AIMOVIG) 140 MG/ML SOAJ every 30 days 0 Active estradiol 1 mg oral tablet (16 sources) Estrogen Start: 06-19-20 take 1 tablet by mouth once daily Estrace 1 mg Tab 1 mg = 1 tab(s), Oral, Daily Start Date: 06/19/18 Status: Ordered fluticasone propionate 0.05 mg/actuat metered dose nasal spray (3 sources) Corticosteroid Start: 06-20-20 End: 06-27-19 24 take 2 spray(s) nasal route once daily Flonase 0.05 mg/inh [place] 2 spray(s), Nasal, Daily for 7 day(s), 16 gm, Refill(s) 0, each nostril, [facility], 168, cm, 06/20/23 18:45:00 EST, Height/Length Dosing, 58.4, kg, 06/20/23 18:45:00 EST, Weight Dosing Start Date: 06/20/23 Stop Date: 06/27/23 Status: Ordered gabapentin 600 mg oral tablet (16 sources) Anti-epileptic Agent Start: 11-09-19 gabapentin 600 mg Tab Refills(s) 0 Start Date: 11/08/21 Status: Ordered Start: 09-04-2017 take 300 mg by mouth three times daily Gabapentin Active 300 MG PO Three times daily September 03, 2017 11:00pm Gabapentin 600 m g TAKE 2 TABLETS THREE TIMES A DAY Active take 4 capsules by m outh three times daily gabapentin (NEURONTIN) 300 MG capsule Take 1,200 mg by mouth 3 times daily. 0 Active lamoTRIgine 25 mg oral tablet (3 sources) Mood Stabilizer, Anti-epileptic Agent Start: 11-30-2019 take 1 tablet by mouth once daily lamoTRIgine (LAMICTAL) 25 MG tablet Take 25 mg by mouth daily 0 11/30/2019 Active Start: 11-30-2019 take 1 tablet by jaden twice daily Lamictal 25 mg Tab 25 mg = 1 tab(s), Oral, BID, # 180 tab(s), Refills(s) 1, Pharmacy: [facility], 168, cm, 07/11/20 8:27:00 EST, Height/Length Dosing, 64.1, kg, 07/11/20 8:27:00 EST, Weight Dosing Start Date: 08/22/20 Status: Ordered loratadine 10 mg oral tablet (3 sources) Start: 02-23-2020 take 1 tablet by mouth once daily loratadine 10 mg Tab 10 mg = 1 tab(s), Oral, Daily, # 90 tab(s), Refills(s) 1, Pharmacy: [facility], 168, cm, 02/23/20 10:40:00 EDT, Height/Length Dosing, 65, kg, 02/23/20 10:40:00 EDT, Weight Dosing Start Date: 02/23/20 Status: Ordered Start: 11-30-2019 take 1 capsule by mo wah once daily loratadine (CLARITIN) 10 MG capsule Take 10 mg by mouth daily 0 11/30/2019 Active omeprazole 20 mg delayed release oral capsule (3 sources) Proton Pump Inhibitor take 1 capsule by mouth every twenty-four hours Omeprazole 20 MG 1 capsule Orally Once a day Active ondansetron 4 mg oral tablet (1 source) Serotonin-3 Receptor Antagonist Start: 07-10-19 take 1 tablet by mouth every six hours as needed for nausea ondansetron 4 mg Tab 4 mg = 1 tab(s), Oral, q6hr, PRN Nausea/Vomiting, # 10 tab(s), Refills(s) 0, Pharmacy: [id number], 168, cm, 07/10/20 13:24:00 EST, Height/Length Dosing, 62.1, kg, 07/10/20 13:24:00 EST, Weight Dosing Start Date: 07/10/20 Status: Ordered OXcarbazepine 300 mg oral tablet (15 sources) Anti-epileptic Agent Start: 11-25-19 21 take 1-2 tablets by mouth once daily at bedtime Trileptal 300 mg Tab See Instructions, take 1-2 tabs po qhs, Refills(s) 0 Start Date: 11/24/20 Status: Ordered Start: 02-22-2020 take 2 tablets by mo uth every twelve hours Trileptal 300 MG 2 [...] discomfort, # 60 tab(s), Refills(s) 2, Pharmacy: [id number], 168, cm, 05/26/20 16:32:00 EST, Height/Length Dosing, 64, kg, 05/26/20 16:32:00 EST, Weight Dosing Start Date: 05/26/20 Status: Ordered take 1 tablet by mouth once jayce y oxybutynin (DITROPAN-XL) 5 MG extended release tablet Take 5 mg by mouth daily 0 Active oxyCODONE hydrochloride 5 mg oral capsule (1 source) Opioid Agonist Start: 12-08-2019 take 5-10 mg by mouth every six hours Oxycodone Active 5 - 10 MG PO Q6H 60 8 December 08, 2019 pantoprazole 40 mg delayed release oral tablet (1 source) Proton Pump Inhibitor Start: 02-06-2021 take 1 tablet by mouth once daily 30 minutes before breakfast Protonix 40 mg Tab-EC 40 mg = 1 tab(s), Oral, Daily, Take 30 minutes before breakfast, # 30 tab(s), Refills(s) 5, Pharmacy: [id number], 168, cm, 07/11/20 8:27:00 EST, Height/Length Dosing, 64.1, kg, 07/11/20 8:27:00 EST, Weight Dosing Start Date: 02/06/21 Status: Ordered Prednisone (1 source) Start: 12-08-2019 Prednisone Active 1 dose pk PO per package directions December 07, 2019 11:00pm take 4 tabs for 3 days then take 3 tabs for 3 days then take 2 tabs for 3 days then take 1 tab for 3 days pregabalin 150 mg oral capsule (1 source) Start: 11-24-2020 take 1 capsule by mouth three times daily Lyrica 150 mg Cap 150 mg = 1 cap(s), Oral, TID, # 60 cap(s), Refills(s) 0 Start Date: 11/24/20 Status: Ordered propranolol hydrochloride 10 mg oral tablet (1 source) beta-Adrenergic Nat Start: 07-24-2023 take 1 tablet by mouth once propranolol 10 mg Tab 10 mg = 1 tab(s), Oral, Once, # 1 tab(s), Refills(s) 0, Pharmacy: [id number], 168, cm, 07/24/23 13:48:00 EST, Height/Length Dosing, 61, kg, 07/24/23 13:48:00 EST, Weight Dosing Start Date: 07/24/23 Status: Ordered Protonix 40 mg Tab-EC (3 sources) Start: 02-06-2021 take 1 tablet by mouth once daily 30 minutes before breakfast Protonix 40 mg Tab-EC 40 mg = 1 tab(s), Oral, Daily, Take 30 minutes before breakfast, # 30 tab(s), Refills(s) 5, Pharmacy: [id number], 168, cm, 07/11/20 8:27:00 [...] Status: Ordered tiZANidine 4 mg oral capsule (10 sources) Central alpha-2 Adrenergic Agonist Start: 10-18-2021 take 0.5-1 tablets by mouth once daily at bedtime Zanaflex 4 mg oral capsule See Instructions, take 1/2 - 1 tab po qhs, Refills(s) 0 Start Date: 10/18/21 Status: Ordered traMADol hydrochloride 50 mg oral tablet (8 sources) Opioid Agonist Start: 06-24-2023 take 1 tablet by mouth three times daily traMADOL 50 mg Tab 50 mg = 1 tab(s), Oral, TID, Refills(s) 0 Start Date: 06/24/23 Status: Ordered Start: 11-30-2019 End: 12-08-2019 take 50 mg by mouth three times daily Tramadol Discontinued 50 MG PO Three times daily November 29, 2019 11:00pm December 08, 2019 1:35pm Start: 09-04-2017 End: 09-12-2017 take 50 mg by mouth once daily in the morning Tramadol Discontinued 50 MG PO Every morning September 03, 2017 11:00pm September 12, 2017 7:12am Completed/Discontinued Medications Medication Drug Class(es) Dates Sig (Normalized) Sig (Original) acetaminophen 325 mg / HYDROcodone bitartrate 5 mg oral tablet (2 sources) Opioid Agonist Start: 09-12-2017 End: 11-30-2019 take 1 tablet by mouth every four to six hours Hydrocodone-Acetami nophen (Higgins) 5-325 mg tablet Discontinued 1 TAB PO EVERY 4-6 HOURS September 12, 2017 November 30, 2019 9:37am Start: 09-04-2017 End: 09-12-2017 take 1 tablet by mouth once daily at bedtime Hydrocodone-Acetaminophen (Higgins) 5-325 mg Tablet Discontinued 1 TAB PO Daily at bedtime September 03, 2017 11:00pm September 12, 2017 7:11am docusate sodium 100 mg oral capsule (1 source) Start: 09-12-2017 End: 11-30-2019 take 1 capsule by mouth twice daily Docusate Sodium (Colace) 100 mg capsule Discontinued 100 MG PO Twice daily 60 September 12, 2017 7:12am November 30, 2019 9:37am Norethindrone-E. Estradiol-Iron (1 source) Estrogen Start: 09-04-2017 End: 09-12-2017 Norethindrone-E.Est radiol-Iron (Junel Fe 07/12 (28)) 1 mg-20 mcg (21)/75 mg (7) tablet Discontinued 1 TAB PO Daily September 03, 2017 11:00pm September 12, 2017 7:11am ibuprofen 800 mg oral tablet (3 sources) Nonsteroidal Anti-inflammatory Drug Start: 09-12-2017 End: 11-30-2019 take 600 mg by mouth every six hours Ibuprofen Discontinued 600 MG PO Q6H 30 September 11, 2017 11:00pm November 30, 2019 9:38am Start: 09-04-2017 End: 11-30-2019 Ibuprofen Discontinued TABLE T November 29, 2019 11:00pm November 30, 2019 10:39am Multivitamin (Multiple Vitamins) Tablet (1 source) Start: 09-04-2017 End: 11-30-2019 take 1 tablet by mouth once daily Multivitamin (Multiple Vitamins) Tablet Discontinued 1 TAB PO Daily September 03, 2017 11:00pm November 30, 2019 9:38am Uses a chewable form valACYclovir 1000 mg oral tablet (4 sources) Herpesvirus Nucleoside Analog DNA Polymerase Inhibitor, Herpes Simplex Virus Nucleoside Analog DNA Polymerase Inhibitor, Herpes Zoster Virus Nucleoside Analog DNA Polymerase Inhibitor Start: 01-18-2022 take 1 tablet by mouth twice daily valacyclovir 1 g Tab 1 gram = 1 tab(s), Oral, BID, # 60 tab(s), Refills(s) 2, Pharmacy: [id number], 168, cm, 11/08/21 9:50:00 EDT, Height/Length Dosing, 65.4, kg, 11/08/21 9:50:00 EDT, Weight Dosing Start Date: 01/18/22 Status: Ordered Start: 11-23-2020 take 1 tablet by jaden th twice daily valacyclovir 1 g Tab 1 gram = 1 tab(s), Oral, BID, # 60 tab(s), Refills(s) 2, Pharmacy: [facility], 168, cm, 07/11/20 8:27:00 EST, Height/Length Dosing, 64.1, kg, 07/11/20 8:27:00 EST, Weight Dosing Start Date: 11/23/20 Status: Ordered Start: 11-23-2020 take 1 tablet by jaden th twice daily valacyclovir 1 g Tab 1 gram = 1 tab(s), Oral, BID, # 60 tab(s), Refills(s) 2, Pharmacy: [id number], 168, cm, 07/11/20 8:27:00 EST, Height/Length Dosing, 64.1, kg, 07/11/20 8:27:00 EST, Weight Dosing Start Date: 11/23/20 Status: Ordered Problems Active Problems Problem Classification Problem Date Documented Da te Episodic/Chronic Cardiac dysrhythmias (2 sources) Palpitations; Translations: [Palpitations] Onset: 4 Episodic Esophageal disorders (20 sources) Gastroesophageal reflux disease; Translations: [Gastroesophageal reflux disease without esophagitis] Onset: 4 02-01-2019 Chronic Headache; including migraine (20 sources) Migraine; Translations: [Migraine variants] 03-31-2020 Chronic Heart valve disorders (2 sources) Heart murmur; Translations: [Cardiac murmur, unspecified] Onset: 4 Episodic Intestinal infection (11 sources) Bacterial overgrowth syndrome 08-07-2020 Episodic Miscellaneous mental health disorders (11 sources) Chronic insomnia 08-17-2019 Chronic Nausea and vomiting (2 sources) Nausea 07-10-2020 Episodic Nonmalignant breast conditions (3 sources) Fibrocystic disease of breast; Translations: [Diffuse cystic mastopathy of right breast] Chronic Nonspecific chest pain (12 sources) Chest wall pain; Translations: [Atypical chest pain] 07-06-2019 Episodic Other acquired deformities (3 sources) Spondylolisthesis L5/S1 level; Translations: [Spondylolisthesis, lumbosacral region] Episodic Other acquired deformities (4 sources) Lumbar spondylolisthesis; Translations: [Spondylolisthesis, lumbar region] 06-04-2023 Episodic Other diseases of bladder and urethra (11 sources) 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 Other female genital disorders (3 sources) Dyspareunia due to non-psychogenic cause in the female; Translations: [Other specified dyspareunia] Chronic Other gastrointestinal disorders (2 sources) Abdominal bloating 07-11-2020 Episodic Other gastrointestinal disorders (19 sources) Alteration in bowel elimination 06-27-2020 Episodic Other gastrointestinal disorders (11 sources) Chronic constipation with overflow 08-07-2020 Episodic Other gastrointestinal disorders (2 sources) Diarrhea 07-10-2020 Episodic Other gastrointestinal disorders (11 sources) Fecal soiling co-occurrent and due to fecal incontinence 06-27-2020 Episodic Other gastrointestinal disorders (2 sources) Incontinence of feces 07-11-2020 Episodic Other gastrointestinal disorders (1 source) Dysphagia; Translations: [Dysphagia, unspecified] Onset: 4 Episodic Other gastrointestinal disorders (3 sources) Swallowing painful 07-18-2023 Episodic Other nervous system disorders (3 sources) Chronic pain; Translations: [Other chronic pain] Chronic Other nervous system disorders (4 sources) Other specified mononeuropathies of right lower limb; Translations: [OTH SPEC MONONEUROPATH RT LOW LIMB] Onset: 3 Chronic Other nervous system disorders (5 sources) Other chronic pain; Translations: [OTHER CHRONIC PAIN] Onset: 2 Chronic Other nervous system disorders (11 sources) Sensory disorder of smell and/or taste 03-31-2020 Episodic Other nutritional; endocrine; and metabolic disorders (11 sources) 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 Other screening for suspected conditions (not mental disorders or infectious disease) (7 sources) Thyroid function tests abnormal; Translations: [Abnormal results of thyroid function studies] Onset: 3 Episodic Other skin disorders (7 sources) Foot callus 11-08-2021 Episodic Other upper respiratory disease (6 sources) Allergic rhinitis; Translations: [Allergic rhinitis, unspecified] Onset: 4 Chronic Other upper respiratory infections (20 sources) Acute frontal sinusitis 05-26-2020 Episodic Otitis media and related conditions (1 source) Acute secretory otitis media; Translations: [Other acute nonsuppurative otitis media, left ear] Onset: 3 Episodic Prolapse of female genital organs (3 sources) Uterine prolapse; Translations: [Uterovaginal prolapse, unspecified] Chronic Residual codes; unclassified (3 sources) History of elective breast augmentation; Translations: [Breast implant status] Chronic Residual codes; unclassified (11 sources) Chill 03-31-2020 Episodic Residual codes; unclassified [...] STATES] Onset: 3 Episodic Residual codes; unclassified (2 sources) Patient encounter status; Translations: [Other specified health status] Onset: 4 Episodic Residual codes; unclassified (2 sources) Body mass index 20-24 - normal; Translations: [...] 1 Resolved: 2 06-27-2020 Episodic Thyroid disorders (17 sources) Thyrotoxicosis, unspecified without thyrotoxic crisis or storm; Translations: [Hyperthyroidism] Onset: 4 Chronic Unclassified (8 sources) Body mass index 20-24 - normal 05-26-2020 Unclassified (4 sources) LOW BACK PAIN, UNSPECIFIED; Translations: [LOW BACK PAIN, UNSPECIFIED] Onset: 2 Unclassified (5 sources) Patient encounter status 06-24-2023 Urinary tract infections (11 sources) Urinary tract infectious disease 05-26-2020 Episodic Viral infection (11 sources) Herpes simplex 02-01-2019 Episodic Past or [...] with and (suspected) exposure to COVID19] Unclassified (11 sources) None (qualifier value) 12-11-2012 Unclassified (20 sources) Onset: 09-23-2004 Resolved: 03-09-2013 12-29-2014 Comment on above: pi Unclassified (1 source) LOW BACK PAIN, UNSPECIFIED; Translations: [LOW BACK PAIN, UNSPECIFIED] Onset: 06-11-2022 Results Test Name Value Interpretation Reference Range Facil ity Ambulatory Visit Summaryon 0 07-24-2023 Ambulatory Visit Summary JESSICA GRIFFITHS :1985 Visit Date:07/24/2023 Ambulatory Visit Instructions Your Diagnosis Palpitations Nodule of left lobe of thyroid gland Abnormal thyroid stimulating hormone level Thyroiditis, subacute Heart murmur BMI 21.0-21.9, adult Non-smoker Your Care Team Attending Physician - Paul Bass MD Primary Care Physician - Nancy BARRIENTOS MD This Is Your Medications List propranolol (propranolol 10 mg Tab) Contact prescribing physician if questions or concerns baclofen (baclofen 10 mg Tab) erenumab (Aimovig SureClick 70 mg/mL subcutaneous solution) estradiol (Estrace 1 mg Tab) gabapentin (gabapentin 600 mg Tab) oxcarbazepine (Trileptal 300 mg Tab) tizanidine (Zanaflex 4 mg oral capsule) tramadol (traMADOL 50 mg Tab) Procedures Performed Fine biopsy needle, device (07/14/2023), Caudal epidural (06/12/2020), ALIF - Anterior lumbar interbody fusion (12/06/2019), Removal of sebaceous cyst (06/19/2018), Breast augmentation (2006), laparoscopy, lumbar microdisectomy, wisdom teeth extracted. Discharge Vitals Heart Rate (Peripheral) 86 Blood Pressure 106/70 Height 168 cm Height 66 in Weight 61.0 kg Weight 134.2 lb BMI 21.61 What to do next You Need to Complete the Following Lab Miscellaneous-LC, Not Specified, Routine collect, Urine iodine, 07/24/23, Order for future visit, Lab Collect, Palpitations Normal Abnormal thyroid stimulating hormone level, Print Label By Order Location, [id number]\.br\ Echo Transthoracic Complete, 07/24/23, Routine, Order for future visit, Transport Mode: Ambulatory, Reason: Other (please specify), Reason: murmur, Heart murmur, pp_set_radiology_ subspecialty, [facility], [place] [facility] [place]\.br\ Medications\.br\ What How Much When Instructions\.br\ New propranolol (propranolol 10 mg Tab) 1 Tablets By Mouth Once Pickup at [facility]\.br\ Unchanged baclofen (baclofen 10 mg Tab) See instructions take 1/ 2 - 1 tab po during the day Contact prescribing physician if questions or concerns \.br\ Unchanged erenumab (Aimovig SureClick 70 mg/ mL subcutaneous solution) 140 Milligram Subcutaneous Once a month Contact prescribing physician if questions or concerns \.br\ Unchanged estradiol (Estrace 1 mg Tab) 1 Tablets By Mouth Every day Contact prescribing physician if questions or concerns \.br\ Unchanged gabapentin (gabapentin 600 mg Tab) Contact prescribing physician if questions or concerns \.br\ Unchanged oxcarbazepine (Trileptal 300 mg Tab) See instructions take 1-2 tabs po qhs Contact prescribing physician if questions or concerns \.br\ Unchanged tizanidine (Zanaflex 4 mg oral capsule) See instructions take 1/ 2 - 1 tab po qhs Contact prescribing physician if questions or concerns \.br\ Unchanged tramadol (traMADOL 50 mg Tab) 1 Tablets By Mouth 3 times a day Contact prescribing physician if questions or concerns \.br\ Pharmacy Information\.br\ [facility]: [id number] [id number] [phone]\.br\ Allergies\.br\ Latex\.br\ Tape (Rash)\.br\ Problems\.br\ Ongoing - Any problem that you are currently receiving treatment for.\.br\ Abnormal thyroid stimulating hormone level\.br\ Acid reflux\.br\ Allergic rhinitis\.br\ Chronic constipation with overflow\.br\ Chronic insomnia\.br\ Detrusor instability of bladder\.br\ Fecal soiling due to fecal incontinence\.br\ GERD without esophagitis\.br\ Heart murmur\.br\ HSV infection\.br\ Hyperthyroidism\. br\ Intestinal bacterial overgrowth\.br\ Lactose intolerance\.br\ Lumbar disc herniation with radiculopathy\.br \ Migraine headache\.br\ Nodule of left lobe of thyroid gland\.br\ Odynophagia\.br\ Palpitations\.br\ Prolapsed lumbosacral intervertebral disc\.br\ Screening for endocrine, nutritional, metabolic and immunity disorder\.br\ Thyroiditis, subacute\.br\ Variants of migraine\.br\ Historical - Any problem that you are no longer receiving treatment for.\.br\ Acute frontal sinusitis\.br\ Change in bowel habits\.br\ Chest pain, atypical\.br\ Chills\.br\ Disturbance of smell and taste\.br\ None\.br\ \.br\ \.br\ Sinusitis, acute frontal\.br\ Urinary tract infection\.br\ Patient Survey\.br\ You may receive a survey via text or e-mail asking about your office visit. Please share your experience with us by completing your survey. We appreciate your feedback and thank you for choosing us for your care.\.br\ \.br\ [facility] Ambulatory Visit Summaryon 0 07-18-2023 Ambulatory Visit Summary JESSICA GRIFFITHS :1985 Visit Date:07/18/2023 Ambulatory Visit Instructions Your Diagnosis Thyroiditis, subacute Nodule of left lobe of thyroid gland Hyperthyroidism Odynophagia Acid reflux Your Care Team Attending Physician - Nancy BARRIENTOS MD Primary Care Physician - Nancy BARRIENTOS MD This Is Your Medications List Contact prescribing physician if questions or concerns baclofen (baclofen 10 mg Tab) erenumab (Aimovig SureClick 70 mg/mL subcutaneous solution) estradiol (Estrace 1 mg Tab) gabapentin (gabapentin 600 mg Tab) oxcarbazepine (Trileptal 300 mg Tab) tizanidine (Zanaflex 4 mg oral capsule) tramadol (traMADOL 50 mg Tab) Procedures Performed Fine biopsy needle, device (07/14/2023), Caudal epidural (06/12/2020), ALIF - Anterior lumbar interbody fusion (12/06/2019), Removal of sebaceous cyst (06/19/2018), Breast augmentation (2006), laparoscopy, lumbar microdisectomy, wisdom teeth extracted. Discharge Vitals Heart Rate (Peripheral) 92 Respiratory Rate 16 Blood Pressure 90/60 Height 168 cm Height 66 in Weight 58.6 kg Weight 128.92 lb BMI 20.76 What to do next You Need to Schedule the Following Appointments Follow Up with Nancy BARRIENTOS MD, FAM When: Only if needed Where: Medications What How Much When Instructions Unchanged baclofen (baclofen 10 mg Tab) See instructions take 1/ 2 - 1 tab po during the day Contact prescribing physician if questions or concerns Unchanged erenumab (Aimovig SureClick 70 mg/ mL subcutaneous solution) 140 Milligram Subcutaneous Once a month Contact prescribing physician if questions or concerns Unchanged estradiol (Estrace 1 mg Tab) 1 Tablets By Mouth Every day Contact prescribing physician if questions or concerns Unchanged gabapentin (gabapentin 600 mg Tab) Contact prescribing physician if questions or concerns Unchanged oxcarbazepine (Trileptal 300 mg Tab) See instructions take 1-2 tabs po qhs Contact prescribing physician if questions or concerns Unchanged tizanidine (Zanaflex 4 mg oral capsule) See instructions take 1/ 2 - 1 tab po qhs Contact prescribing physician if questions or concerns Unchanged tramadol (traMADOL 50 mg Tab) 1 Tablets By Mouth 3 times a day Contact prescribing physician if questions or concerns Medications and Immunizations Administered Not Given influenza virus vaccine, inactivated, Postpone due to refusal Allergies Latex Tape (Rash) Problems Ongoing - Any problem that you are currently receiving treatment for. Acid reflux Allergic rhinitis BMI 20.0-20.9, adult Chronic constipation with overflow Chronic insomnia Detrusor instability of bladder Fecal soiling due to fecal incontinence GERD without esophagitis HSV infection Hyperthyroidism Intestinal bacterial overgrowth Lactose intolerance Lumbar disc herniation with radiculopathy Migraine headache Nodule of left lobe of thyroid gland Odynophagia Prolapsed lumbosacral intervertebral disc Screening for endocrine, nutritional, metabolic and immunity disorder Thyroiditis, subacute Variants of migraine Historical - Any problem that you are no longer receiving treatment for. Acute frontal sinusitis Change in bowel habits Chest pain, atypical Chills Disturbance of smell and taste None Sinusitis, acute frontal Urinary tract infection Patient Survey You may receive a survey via text or e-mail asking about your office visit. Please share your experience with us by completing your survey. We appreciate your feedback and thank you for choosing us for your care. Education Materials Hyperthyroidism Hyperthyroidism refers to a thyroid gland that is too active or overactive. The thyroid gland is a small gland located in the lower front part of the neck, just in front of the windpipe (trachea). This gland makes hormones that: ? Help control how the body uses food for energy (metabolism). ? Help the heart and brain work well. ? Keep your bones strong. When the thyroid is overactive, it produces too much of a hormone called thyroxine. What are the causes? This condition may be caused by: ? Graves' disease. This is a disorder in which the body's disease-fighting system (immune system) attacks the thyroid gland. This is the most common cause. ? Inflammation of the thyroid gland. ? A tumor in the thyroid gland. ? Use of certain medicines, including: ? Prescription thyroid hormone replacement. ? Herbal supplements that mimic thyroid hormones. ? Amiodarone therapy. ? Solid or fluid-filled lumps within your thyroid gland (thyroid nodules). ? Taking in a large amount of iodine from foods or medicines. What increases the risk? You are more likely to develop this condition if: ? You are female. ? You have a family history of thyroid conditions. ? You smoke (more content not included)... Normal [facility] CHEMISTRYOrdered By: SYSTEM SYSTEM on 07-18-2023 Free T4 [Mass/Vol] 2.22 ng/dL High 0.58 - 1.64 ng/dL Remisol Chem TSH Qn 0.01 m[IU]/L Low 0.34 - 5.60 mcIU/mL Remisol Chem Clipboard Summaryon 07-18-19 24 Clipboard Summary {[id number] -[id number]}XML Normal [facility] Consent for Treatmenton 06-24 Consent for Treatment [id number] Normal [facility] Family Medicine Office/Clini c Noteon 07-18-2023 Family Medicine Office/Clinic Note Chief Complaint pt presents today c/o neck swelling, pressure in throat and ears after needle bx of thyroid nodule 07/14/[address] puente orders, no rfs History of Present Illness The patient is here with concerns of hyperthyroidism. Extensive documentation in the chart has been reviewed as well as discussion with patient regarding recent consultations. She has seen Dr. Puente of ENT and had a biopsy on Friday at [facility], carried out by the radiology department interventional specialist. She reviewed documented pathology report with me which appears to be benign but there is question of whether adequate cellularity was obtained. She has a follow-up scheduled with Dr. Puente on 08/04/2023. She had a nuclear medicine thyroid test recently, which came back equivocal. Really was not showing any significant uptake versus the background. She asked Dr Paul Jeronimoif he could order a thyroid antibody test because the full panel was not done the first time. Apparently these were drawn today but she does not know exactly what was ordered. She has been reading a lot about Apolinar's and Graves' disease. Developing significant bilateral ear pressure and pain just this week on Friday night or Friday morning. Her whole R side is swollen and it is radiating up to her ear. It hurts to swallow. Interestingly biopsy was done on the left side. Over the past several months she has felt weak, her blood pressure has been low, sweating, and heart flutters. She has been getting them a lot this week. She has trouble swallowing but no outright choking.. Her right side is more tender than the left. She started getting issues on the left side when she first started with the earache in 04/2023. She takes tramadol 3 times a day for her back from pain management.. She has not taken any anti-inflammatorie s daily. She was put on amoxicillin 875/[address] Puente for an infection in the back of her nose/sinuses. This was started on the and should have been completed on the . Admittedly did not take it for a couple of days because it upset her stomach. Denies any redness on the neck. Has not had any measured fevers. Review of Systems PHQ Score Initial Depression Screen Score: 2 SCORE See HPI otherwise negative Physical Exam Vitals & Measurements HR: 92(Peripheral) RR: 16 BP: 90/60 SpO2: 98% HT: 66 in HT: 168 cm WT: 58.6 kg WT: 128.92 lb BMI: 20.76 The patient is adequately hydrated, reasonably groomed. She looks uncomfortable, very fatigued. Normocephalic, atraumatic. TMs are both retracted, but no erythema. Nares with pale yellow rhinorrhea. No septal deviation. Conjunctiva are clear. Nonicteric sclera. Oropharynx pink and moist. Adequate [place] dentition. Anterior neck, there is a fullness throughout both sides consistent with her thyromegaly. She is exquisitely tender on the right-hand side more so than the left where the biopsy was completed. I do not appreciate any adenopathy. She has no dysphonia or hoarseness to voice. Clear bilaterally. Regular rate and rhythm. No murmur, gallop, or rub. Abdomen is thin, nontender. Skin is warm and dry. I do not appreciate any jaundice or rash. She is somewhat diaphoretic. She has a bland affect, but cooperative. Assessment/Plan 1. Thyroiditis, subacute (E06.1: Subacute thyroiditis) Lengthy discussion had with patient. Her hyperthyroidism based on laboratories will be further evaluated through labs that have been sent out early this morning from the hospital hopefully thyroid peroxidase antibodies and thyroglobulin antibody. I am uncertain if her thyrotropin receptor antibody TRAb was drawn. She understands that these may take several days to come back and would expect Dr. Huynh to call her with these as he ordered them. I will also keep an eye out for it. She is just now finishing oral antibiotic for sinusitis that she is not taking consistently today but it is Augmentin and therefore I think it would be adequate coverage for potential bacterial infection of the thyroid although not likely. There certainly could be inflammatory change because of the hypothyroid activity or because of the fine-needle aspirate. She is instructed to begin ibuprofen 800 mg 3 times daily with meals warm compresses or cool and seek emergent care for any acute worsening. 2. Nodule of left lobe of thyroid gland (E04.1: Nontoxic single thyroid nodule) We did review the pathology report on her phone from [facility] which indicates benign cellularity although admittedly may be an adequate specimen. She should keep follow-up with Dr. Puente of ENT as planned for further discussion and management 3. Hyperthyroidism (E05.90: Thyrotoxicosis, unspecified without thyrotoxic crisis or storm) Problems #1 and 2. Awaiting thyroid antibodies to determine management. She does have an appointment scheduled to see Dr. Mcghee cardiology early July. He will determine if methimazole or radiation are necessary. 4. Odynophagia (R13.10: Dysphagia, unspecified) (more content not included)... Normal [facility] Comment on above: Result Comment: Elec tronically Signed By: JUAN LUIS REES, Nancy\.br\Date and Time Signed: 07/18/23 19:02 EST Free T4on 07-18-2023 Free T4 [Mass/Vol] 2.22 ng/dL High 0.58-1.64 [facility] Comment on above: Performed By: #### 2 [id number], [id number] #### [facility] [address] [place] [address] Patient Educationon 07-18-19 24 Patient Education Endocrinology Hyperthyroidism Hyperthyroidism refers to a thyroid gland that is too active or overactive. The thyroid gland is a small gland located in the lower front part of the neck, just in front of the windpipe (trachea). This gland makes hormones that: ? Help control how the body uses food for energy (metabolism). ? Help the heart and brain work well. ? Keep your bones strong. When the thyroid is overactive, it produces too much of a hormone called thyroxine. What are the causes? This condition may be caused by: ? Graves' disease. This is a disorder in which the body's disease-fighting system (immune system) attacks the thyroid gland. This is the most common cause. ? Inflammation of the thyroid gland. ? A tumor in the thyroid gland. ? Use of certain medicines, including: ? Prescription thyroid hormone replacement. ? Herbal supplements that mimic thyroid hormones. ? Amiodarone therapy. ? Solid or fluid-filled lumps within your thyroid gland (thyroid nodules). ? Taking in a large amount of iodine from foods or medicines. What increases the risk? You are more likely to develop this condition if: ? You are female. ? You have a family history of thyroid conditions. ? You smoke tobacco. ? You use a medicine called lithium. ? You take medicines that affect the immune system (immunosuppressant s). What are the signs or symptoms? Symptoms of this condition include: ? Nervousness. ? Inability to tolerate heat. ? Diarrhea. ? Rapid heart rate. ? Shaky hands. ? Restlessness. ? Sleep problems. Other symptoms may include: ? Heart skipping beats or making extra beats. ? Unexplained weight loss. ? Change in the texture of hair or skin. ? Loss of menstruation. ? Fatigue. ? Enlarged thyroid gland or a lump in the thyroid (nodule). You may also have symptoms of Graves' disease, which may include: ? Protruding eyes. ? Dry eyes. ? Red or swollen eyes. ? Problems with vision. How is this diagnosed? This condition may be diagnosed based on: ? Your symptoms and medical history. ? A physical exam. ? Blood tests. ? Thyroid ultrasound. This test involves using sound waves to produce images of the thyroid gland. ? A thyroid scan. A radioactive substance is injected into a vein, and images show how much iodine is present in the thyroid. ? Radioactive iodine uptake test (RAIU). A small amount of radioactive iodine is given by mouth to see how much iodine the thyroid absorbs after a certain amount of time. How is this treated? Treatment depends on the cause and severity of the condition. Treatment may include: ? Medicines to reduce the amount of thyroid hormone your body makes. ? Medicines to help manage your symptoms. ? Radioactive iodine treatment (radioiodine therapy). This involves swallowing a small dose of radioactive iodine, in capsule or liquid form, to kill thyroid cells. ? Surgery to remove part or all of your thyroid gland. You may need to take thyroid hormone replacement medicine for the rest of your life after thyroid surgery. Follow these instructions at home: ? Take ytxs-xdl-dcdmbfr and prescription medicines only as told by your health care provider. ? Do not use any products that contain nicotine or tobacco. These products include cigarettes, chewing tobacco, and vaping devices, such as e-cigarettes. If you need help quitting, ask your health care provider. ? Follow any instructions from your health care provider about diet. You may be instructed to limit foods that contain iodine. ? Keep all follow-up visits. You will need to have blood tests regularly so that your health care provider can monitor your condition. Where to find more information ? National [place] of Diabetes and Digestive and Kidney Diseases: niddk.nih.gov Contact a health care provider if: ? Your symptoms do not get better with treatment. ? You have a fever. ? You have abdominal pain. ? You feel dizzy. ? You are taking thyroid hormone replacement medicine and: ? You have symptoms of depression. ? You feel like you are tired all the time. ? You gain weight. Get help right away if: ? You have sudden, unexplained confusion or other mental changes. ? You have chest pain. ? You have fast or irregular heartbeats (palpitations). ? You have difficulty breathing. These symptoms may be an emergency. Get help right away. Call 911. ? Do not wait to see if the symptoms will go away. ? Do not drive yourself to the hospital. Summary ? The thyroid gland is a small gland located in the lower front part of the neck, just in front of the windpipe. ? Hyperthyroidism is when the thyroid gland is too active and produces too much of a hormone called thyroxine. ? The most common cause is Graves' disease, a disorder in which your immune system attacks the thyroid gland. ? Hyperthyroidism can cause various symptoms, such as u (more content not included)... Normal [facility] TSHon 07-18-2023 TSH Qn 0.01 m[IU]/L Low 0.34-5.60 [facility] Comment on above: Performed By: #### 2 [id number], [id number] #### [facility] [address] [place] [address] Mata 07-14-2023 L Specimen: [id number] Received: 07/15/23-1303 Status: DENA Sifuentes Num: [id number] Spec Type: Cytology Subm Dr: MARTA PUENTE MD Tissues: A FNA SLIDES NOPATH (LT THYROID NOD) Procedures: Cyto Int and Re, PAPSTN/5 Age/ Patient Sex Location Account Attending Physician Jessica Griffiths 37/F [place] [id number] MARTA PUENTE MD SPEC NUM: [id number] RECD: 07/15/23 STATUS: DENA REQ NUM: [id number] KANCHAN: 07/14/23- SUBM DR: MARTA PUENTE MD ENTERED: 07/15/[address] [facility] [address]: Richie,Lab SPEC TYPE: Cytology DEPT: [facility] ENTERED BY: [id number] RECV BY: [id number] ORDERED: Cyto Int and Re, PAPSTN/5 ORDERED: Cyto Int and Re, PAPSTN/5 Pathological Diagnosis Left thyroid mid lobe nodule, FNA cytology: - Adequate but slightly limited for assessment - The [facility] is category 2: Benign - A few but slightly dispersed follicular cells in at least 1 smear, otherwise also with mild smear artifact without adequate grouping - The ThinPrep smear showing a few tiny to small groups of follicular cells with uniform benign cytomorphology, compatible with sampling of the benign thyroid nodule, otherwise are also slightly limited for overall assessment due to the lack of adequate architectural arrangement for morphological assessment of these small obtained groups Gross Description Received is 16 ml very pale pink clear fixed fluid said to have been obtained as US Guided FNA. Thin prep is prepared for microscopic examination. Also received are 4 smeared slides for microscopic examination.(CC/nh ) -- Specimen: [id number] Received: 07/15/23 Status: DENA Req Num: [id number] Spec Type: Cytology Subm Dr: MARTA PUENTE MD Tissues: A FNA SLIDES NOPATH (LT THYROID NOD) Procedures: Cyto Int and Re, PAPSTN/5 -- Patient: Jessica Griffiths [id number] (Continued) -- Specimen: [id number] Received: 07/15/23 (Continued) Signed (signatu re on file) Alfonso Correa MD 07/16/231122 -- Specimen: [id number] Received: 07/15/23 Status: DENA Sifuentes Num: [id number] Spec Type: Cytology Subm Dr: MARTA PUENTE MD Tissues: A FNA SLIDES NOPATH (LT THYROID NOD) Procedures: Cyto Int and Re, PAPSTN/5 -- Patient: Jerald Griffithsra Holt [id number] (Continued) -- Specimen: [id number] Received: 07/15/23 (Continued) CPT Codes 42854 -- -- Specimen: [id number] Received: 07/15/23 Status: DENA Sifuentes Num: [id number] Spec Type: Cytology Subm Dr: MARTA PUENTE MD Tissues: A FNA SLIDES NOPATH (LT THYROID NOD) Procedures: Cyto Int and Re, PAPSTN/5 -- Patient: Jessica Griffiths [id number] (Continued) -- Signed (signatu re on file) Alfonso Correa MD 07/16/23 1[facility] [place] Thyroid Imaging w/ Uptk Angelito joaquinabigailla 07-09-2023 NM Thyroid Imaging w/ Uptk Multiple Exam Date/Time: 07/09/2023 09:00 EST Reason for Exam: Nodule Report IMPRESSION: 24 HOUR RAIU IS IN THE HYPOTHYROID RANGE. THYROID GLAND ACTIVITY IS BARELY GREATER THAN BACKGROUND ACTIVITY, LIMITING ASSESSMENT ON THE THYROID SCAN. CLINICAL HISTORY: Nodule. COMMENT: A total of 203.5 uCi of 123-Iodine in the capsule were administered orally. The 2 hour thyroid uptake is 1.8% (normal 1-9%) and the 24-hour thyroid uptake is 0.8% (normal is 10-30%). Thyroid 24 hour thyroid uptake value is in the hypothyroid range. For the thyroid scan, images were obtained at 24 hours post radionuclide injection. Faint activity is visualized in the right and left thyroid lobes, barely greater than background activity. Consequently, assessment of the thyroid is limited on the thyroid scan images. Ordering Provider: Paul Bass FINAL REPORT Dictated: 07/09/2023 3:40 pm Armen Royal M.D. Signed (Electronic Signature): 07/09/2023 3:40 pm Signed by: Armen Royal M.D. Transcribed by: YAMINI Technologist: MALCOLM Technical Comments 2 Hour Uptake (Normal 1 - 9%): 1.8 24 Hour Uptake (Normal 10 - 30%): 0.8 Radiopharmaceutica l Administration Dose (microcuries I-123 Diagnostic Capsule): 203.5 Imaging Post Administration (hrs): 24 Normal [facility] Consent for Treatmenton 06-23 Consent for Treatment [id number]#[id number] Normal [facility] Lipid Panelon 07-08-2023 Cholesterol [Mass/Vol] 145 mg/dL Normal 120-200 [facility] Comment on above: Performed By: #### 2 570369, [id number], 1260298, [id number], [id number] #### [facility] [address] [place] [address] Cholesterol in HDL [Mass/Vol] 62 mg/dL Invalid Interpretation Code [facility] Comment on above: Result Comment: '>= 60 LOW RISK' '<= 40 HIGH RISK' Performed By: #### 2 771869, 8283476, 6229039, 2843785, [id number] #### [facility] [address] [place] [address] Cholesterol in LDL [Mass/Vol] 76 mg/dL Normal <=129 [facility] Comment on above: Performed By: #### 2 613546, 4270899, 1808544, [id number], [id number] #### [facility] [address] [place] [address] Cholesterol in VLDL [Mass/Vol] 10 mg/dL Normal 7-40 [facility] Comment on above: Performed By: #### 2 721689, 6091831, 3809238, 1800612, [id number] #### [facility] [address] [place] [address] Triglyceride [Mass/Vol] 52 mg/dL Normal <=149 [facility] Comment on above: Performed By: #### 2 431958, [id number], 4149679, 0482353, [id number] #### [facility] [address] [place] [address] UA With Cult Reflexon 2023 Bacteria LM Ql (Urine sed) 1+ /HPF Abnormal Trace [facility] Comment on above: Performed By: #### 2 600394, [id number] #### [facility] [address] [place] [address] Bilirubin Ql (U) Negative Normal Negative [facility] Comment on above: Performed By: #### 2 467892, [id number] #### [facility] [address] [place] [address] Clarity (U) CLEAR Normal Clear [facility] Comment on above: Performed By: #### 2 621882, [id number] #### [facility] [address] [place] [address] Color (U) YELLOW Normal Yellow [facility] Comment on above: Performed By: #### 2 102882, [id number] #### [facility] [address] [place] [address] Epithelial cells.squamous LM.HPF (Urine sed) [#/Area] /[HPF] Normal 0-2 [facility] Comment on above: Performed By: #### 2 619532, [id number] #### [facility] [address] [place] [address] Glucose Test strip (U) [Mass/Vol] Negative Normal Negative [facility] Comment on above: Performed By: #### 2 362714, [id number] #### [facility] [address] [place] [address] Hemoglobin Ql (U) Negative Normal Negative [facility] Comment on above: Performed By: #### 2 303779, 4603611 #### [facility] [address] [place] [address] Ketones (U) [Mass/Vol] TRACE Abnormal Negative [facility] Comment on above: Performed By: #### 2 406414, [id number] #### [facility] [address] [place] [address] [place].plasma/Lithiu m.RBC (Bld) [Mass ratio] 0-3 Normal 0-3 [facility] Comment on above: Performed By: #### 2 420382, 6541132 #### [facility] [address] [place] [address] Mucus Ql (Urine sed) 2+ Normal Fish er [facility] Comment on above: Performed By: #### 2 789286, [id number] #### [facility] [address] [place] [address] Nitrite Ql (U) Negative Normal Negative [facility] Comment on above: Performed By: #### 2 061802, [id number] #### [facility] [address] [place] [address] pH (U) 6.5 [pH] Invalid Interpretation Code 5.0-9.0 [facility] Comment on above: Performed By: #### 2 181818, [id number] #### [facility] [address] [place] [address] Protein (U) [Mass/Vol] Negative Normal Negative [facility] Comment on above: Performed By: #### 2 563992, [id number] #### [facility] [address] [place] [address] Specific gravity (U) [Rel density] 1.015 Invalid Interpretation Code 1.005-1.030 [facility] Comment on above: Performed By: #### 2 141902, [id number] #### [facility] [address] [place] [address] Type of Urine collection method Clean Catch Normal [facility] Comment on above: Performed By: #### 2 766761, 8453492 #### [facility] [address] [place] [address] Urobilinogen Qn (U) 0.2 {Ydlan'U}/dL Normal 0.0-1.0 [facility] Comment on above: Performed By: #### 2 779600, 8596512 #### [facility] [address] [place] [address] WBC Auto Ql (U) Negative Normal Negative [facility] Comment on above: Performed By: #### 2 440997, 9538337 #### [facility] [address] [place] [address] WBC LM.HPF (Urine sed) [#/Area] 0-5 Normal 0-5 [facility] Comment on above: Performed By: #### 2 371222, [id number] #### [facility] [address] [place] [address] Insurance Correspondenceon 0 07-01-2023 Insurance Correspondence [id number]#1.00TIFF Normal [facility] Physician Referralon 024 Physician Referral [id number]#[id number] Normal [facility] Consent for Treatmenton Consent for Treatment [id number]#[id number] Normal [facility] [place] Thyroidon 06-27-2023 [place] Thyroid Exam Date/Time: 06/27/2023 07:55 EST Reason for Exam: Thyrotoxicosis, unspecified without thyrotoxic crisis or storm;Hyperthyroid ism Report IMPRESSION: 6 X 3 X 4 [...] MD Transcribed by: YAMINI Technologist: FAISAL Price [facility] [place] [facility] Noteon 06-24-2023 [facility] Medicine Office/Clinic Note Chief Complaint Discuss thyroid [...] with voice recognition artificial intelligence software, specifically [employer], [employer] and or [employer]. Substitutions may have occurred due to the inherent limitations of voice recognition and artificial intelligence software. Documentation services were performed after patient or guardian consented to allow [email or web address] to record this visit. D (more content not included)... Normal [facility] Comment on above: Result Comment: Elec tronically Signed By: Paul Bass MD\.br\Date and Time Signed: 06/24/23 18:25 EST\.br\Electronically Co-Signed By: Jaja Alex\.br\Date and Time Co-Signed: 06/24/23 18:04 EST T3 Freeon 06-22-2023 Free T3 [Mass/Vol] 4.2 pg/mL Invalid Interpretation Code 2.0-4.4 [facility] Comment on above: Result Comment: Perf ormed at: [facility] [address] [id number] PhD Mahnaz Conklin Performed By: #### 2 666730, 4999067, 0473681, 1674441, [id number] #### [facility] [address] [place] [address] 44992 Auto Diffon 06-21-2023 Basophils/100 WBC (Bld) 0.3 % Normal 0.0-2.0 [facility] Comment on above: Order Comment: Order Added by Discern Expert. Performed By: #### 2 815593, 4156652, 5934662, 0326629, 50227916 #### [facility] [address] [place] [address] 75082 Basophils/Leukocytes Auto (Bld) [Pure # fraction] 0.0 E9/L Normal 0.0-0.2 [facility] Comment on above: Order Comment: Order Added by Discern Expert. Performed By: #### 2 220007, 2018943, 7582388, 8769923, 33689697 #### [facility] [address] [place] [address] 17455 Eosinophils/100 WBC (Bld) 0.6 % Normal 0.0-8.0 [facility] Comment on above: Order Comment: Order Added by Discern Expert. Performed By: #### 2 776589, 1749693, 9051946, 7682753, 09368519 #### [facility] [address] [place] [address] 40765 Eosinophils/Leukocyte s Auto (Bld) [Pure # fraction] 0.0 E9/L Normal 0.0-0.5 [facility] Comment on above: Order Comment: Order Added by Discern Expert. Performed By: #### 2 609682, 7844874, 7967278, 9098735, 66358108 #### [facility] [address] [place] [address] 33171 Lymphocytes/100 WBC (Bld) 20.6 % Normal 14.0-50.0 [facility] Comment on above: Order Comment: Order Added by Discern Expert. Performed By: #### 2 941380, 7755095, 0612401, 8777910, 44644783 #### [facility] [address] [place] [address] 91965 Lymphocytes/Leukocyte s Auto (Bld) [Pure # fraction] 1.7 E9/L Normal 1.0-4.0 [facility] Comment on above: Order Comment: Order Added by Discern Expert. Performed By: #### 2 352182, 5060785, 8987813, 3633309, 05417406 #### [facility] [address] [place] [address] 87852 Monocytes/100 WBC (Bld) 6.6 % Normal 4.0-14.0 [facility] Comment on above: Order Comment: Order Added by Discern Expert. Performed By: #### 2 220384, 0568107, 2170409, 5041258, 15898550 #### [facility] [address] [place] [address] 96850 Monocytes/Leukocytes Auto (Bld) [Pure # fraction] 0.5 E9/L Normal 0.2-1.0 [facility] Comment on above: Order Comment: Order Added by Discern Expert. Performed By: #### 2 814019, 2023733, 6065924, 3347527, 07858204 #### [facility] [address] [place] [address] 40490 Neutrophils/100 WBC (Bld) 71.9 % Normal 36.0-75.0 [facility] Comment on above: Order Comment: Order Added by Discern Expert. Performed By: #### 2 482797, 4716655, 6407305, 0202124, 41663939 #### [facility] [address] [place] [address] 87539 Neutrophils/Leukocyte s Auto (Bld) [Pure # fraction] 5.8 E9/L Normal 2.0-7.5 [facility] Comment on above: Order Comment: Order Added by Discern Expert. Performed By: #### 2 279195, 3448069, 0289497, 3359109, 19574398 #### [facility] [address] [place] [address] 28796 CBC w/ Auto Diffon 3 Erythrocyte distribution width (RBC) [Ratio] 12.6 % Normal 10.9-14.2 [facility] Comment on above: Performed By: #### 2 796996, 8297429, 3792270, 1496582, 03780266 #### [facility] [address] [place] [address] 14695 Hematocrit (Bld) [Volume fraction] 37.8 % Normal 34.0-46.0 [facility] Comment on above: Performed By: #### 2 060130, 7307175, 1320858, 2932947, 45993944 #### [facility] [address] [place] [address] 81003 Hemoglobin (Bld) [Mass/Vol] 12.7 g/dL Normal 12.0-16.0 [facility] Comment on above: Performed By: #### 2 884558, 7412238, 3568692, 7447457, 93421767 #### [facility] [address] [place] [address] 80740 MCH (RBC) [Entitic mass] 32.2 pg Normal 27.0-34.0 [facility] Comment on above: Performed By: #### 2 570929, 2915960, 0130964, 4921235, 87167119 #### [facility] [address] [place] [address] 43992 MCHC (RBC) [Mass/Vol] 33.8 g/dL Normal 31.4-36.0 [facility] Comment on above: Performed By: #### 2 937082, 2839640, 1399082, 2599420, 64336306 #### [facility] [address] [place] [address] 58070 MCV (RBC) [Entitic vol] 95.5 fL Normal 80.0-100.0 [facility] Comment on above: Performed By: #### 2 979333, 9119029, 5268252, 7318186, 68616136 #### [facility] [address] [place] [address] 06177 Platelet mean volume (Bld) [Entitic vol] 8.5 fL Normal 6.4-10.8 [facility] Comment on above: Performed By: #### 2 936099, 6158574, 4048962, 9530611, 39769091 #### [facility] [address] [place] [address] 25857 Platelets (Bld) [#/Vol] 303.0 E9/L Normal 150.0-500.0 [facility] Comment on above: Performed By: #### 2 071989, 9126594, 3165856, 8261734, 47196919 #### [facility] [address] [place] [address] RBC (Bld) [#/Vol] 4.0 E12/L Low 4.3-5.9 [facility] Comment on above: Performed By: #### 2 805894, 9517137, 5831945, 3639834, 22408815 #### [facility] [address] [place] [address] WBC corrected for nucl RBC Auto (Bld) [#/Vol] 8.1 E9/L Normal 4.0-11.0 [facility] Comment on above: Performed By: #### 2 007286, 5508339, 8581027, 1386691, 50094903 #### [facility] [address] [place] [address] CHEMISTRYOrdered By: SYSTEM SYSTEM on 06-21-2023 Albumin [Mass/Vol] 3.8 g/dL Normal 3.3 - 5.0 gm/dL R emisol Chem Albumin/Globulin [Mass ratio] 1.3 {ratio} Normal [...] mg/dL Normal 0.0 - 1.1 mg/dL Remisol C hem Calcium [Mass/Vol] 8.7 mg/dL Low 8.9 - 11.1 mg/dL Remisol Chem Chloride [Moles/Vol] 103 mmol/L Normal 101 - 111 mmol/ L Remisol Chem CO2 [Moles/Vol] 29 mmol/L Normal 21 - 31 mmol/L Remis ol Chem Creatinine [Mass/Vol] 0.6 mg/dL Normal 0.5 - 1.3 mg/d L Remisol Chem eGFR mL/min/1.73 m2 Normal >=59mL/min/1. 73 m2 Remisol Chem Free T4 [Mass/Vol] 1.37 ng/dL Normal 0.58 - 1.64 ng/dL Remisol Chem Globulin (S) [Mass/Vol] 3.0 g/dL Normal 1.4 - 4.0 gm/dL Remisol Chem Glucose [Mass/Vol] 84 mg/dL Normal 55 - 199 mg/dL Re misol Chem Potassium [Moles/Vol] 3.9 mmol/L Normal 3.5 - 5.3 mmol /L Remisol Chem Protein [Mass/Vol] 6.8 g/dL Normal 6.0 - 7.8 gm/dL R emisol Chem Sodium [Moles/Vol] 138 mmol/L Normal 135 - 145 mmol/L Remisol Chem T3 Uptake 46.6 % Normal 32.0 - 48.4 % Remisol Cori m T4 [Mass/Vol] 18.8 ug/dL High 4.6 - 9.1 mcg/dL Remis ol Chem TSH Qn 0.07 m[IU]/L Low 0.34 - 5.60 mcIU/mL Remisol Chem Urea nitrogen [Mass/Vol] 13 mg/dL Normal 5 - 21 mg/dL Remisol Chem Urea nitrogen/Creatinine [Mass ratio] 22 mg/mg High 10 - 20 Remisol Chem CMPon 06-21-2023 Albumin [Mass/Vol] 3.8 g/dL Normal 3.3-5.0 [facility] Comment on above: Performed By: #### 2 920014, 1346935, 6542065, 0573652, 03115010 #### [facility] [address] [place] [address] Albumin/Globulin [Mass ratio] 1.3 {ratio} Normal 1.1-2.2 [facility] Comment on above: Performed By: #### 2 277456, 5570142, 2586037, 0620451, 89477012 #### [facility] [address] [place] [address] Alk Phos 83 Int._Unit/L Normal 21-98 [facility] Comment on above: Performed By: #### 2 900785, 1261683, 0120301, 6815655, 17537965 #### [facility] [address] [place] [address] ALT 10 Int._Unit/L Normal 6-46 [facility] Comment on above: Performed By: #### 2 102917, 7109525, 0593371, 4645340, 87175317 #### [facility] [address] [place] [address] Anion gap [Moles/Vol] 10 mmol/L Normal 6-16 [facility] Comment on above: Performed By: #### 2 143310, 2625585, 1857096, 3065481, 07832264 #### [facility] [address] [place] [address] AST 15 Int._Unit/L Normal 5-43 [facility] Comment on above: Performed By: #### 2 184537, 7961801, 0800177, 4020884, 13785572 #### [facility] [address] [place] [address] Bili Total 0.5 mg/dL Normal 0.0-1.1 [facility] Comment on above: Performed By: #### 2 082671, 9700137, 8457689, 0999307, 53943374 #### [facility] [address] [place] [address] BUN/Creat Ratio 22 No Units High 10-20 [facility] Comment on above: Performed By: #### 2 250733, 7865358, 4063617, 4507881, 95595661 #### [facility] [address] [place] [address] Calcium [Mass/Vol] 8.7 mg/dL Low 8.9-11.1 [facility] Comment on above: Performed By: #### 2 395977, 3059932, 2031459, 0642092, 02933725 #### [facility] [address] [place] [address] Chloride [Moles/Vol] 103 mmol/L Normal 101-111 [facility] Comment on above: Performed By: #### 2 873991, 9885986, 8531464, 4956400, 38847754 #### [facility] [address] [place] [address] CO2 [Moles/Vol] 29 mmol/L Normal 21-31 [facility] Comment on above: Performed By: #### 2 169262, 9231006, 8971464, 7241529, 29030379 #### [facility] [address] [place] [address] Creatinine [Mass/Vol] 0.6 mg/dL Normal 0.5-1.3 [facility] Comment on above: Performed By: #### 2 249528, 5611133, 7074998, 3238581, 73215236 #### [facility] [address] [place] [address] Globulin (S) [Mass/Vol] 3.0 g/dL Normal 1.4-4.0 [facility] Comment on above: Performed By: #### 2 269540, 9267608, 8848540, 9988313, 09499165 #### [facility] [address] [place] [address] Glucose [Mass/Vol] 84 mg/dL Normal 55-199 [facility] Comment on above: Performed By: #### 2 053550, 4839695, 0738889, 0233558, 15113023 #### [facility] [address] [place] [address] Potassium [Moles/Vol] 3.9 mmol/L Normal 3.5-5.3 [facility] Comment on above: Performed By: #### 2 889689, 6492054, 8368333, 8158046, 04015794 #### [facility] [address] [place] [address] Protein [Mass/Vol] 6.8 g/dL Normal 6.0-7.8 [facility] Comment on above: Performed By: #### 2 350059, 0999100, 5614377, 4095254, 22512598 #### [facility] [address] [place] [address] Sodium [Moles/Vol] 138 mmol/L Normal 135-145 [facility] Comment on above: Performed By: #### 2 751533, 2191401, 8694331, 9016186, 68115934 #### [facility] [address] [place] [address] Urea nitrogen [Mass/Vol] 13 mg/dL Normal 5-21 [facility] Comment on above: Performed By: #### 2 149092, 3397249, 0451420, 5564942, 04673990 #### [facility] [address] [place] [address] Consent for Treatmenton 05-25 Consent for Treatment [id number]#1.00TIFF Normal [facility] Free T4on 06-21-2023 Free T4 [Mass/Vol] 1.37 ng/dL Normal 0.58-1.64 [facility] Comment on above: Performed By: #### 2 402832, 3001768, 2751232, 4335298, 14760418 #### [facility] [address] [place] [address] HEMATOLOGYOrdered By: SYSTEM SYSTEM on 06-21-2023 Basophils/100 WBC (Bld) 0.3 % Normal 0.0 - 2.0 % [facility] Basophils/Leukocytes Auto (Bld) [Pure # fraction] 0.0 E9/L Normal 0.0 - 0.2 E9/L [facility] Eosinophils/100 WBC (Bld) 0.6 % Normal 0.0 - 8.0 % [facility] Eosinophils/Leukocyte s Auto (Bld) [Pure # fraction] 0.0 E9/L Normal 0.0 - 0.5 E9/L [facility] Lymphocytes/100 WBC (Bld) 20.6 % Normal 14.0 - 50.0 % [facility] Lymphocytes/Leukocyte s Auto (Bld) [Pure # fraction] 1.7 E9/L Normal 1.0 - 4.0 E9/L [facility] Monocytes/100 WBC (Bld) 6.6 % Normal 4.0 - 14.0 % [facility] Monocytes/Leukocytes Auto (Bld) [Pure # fraction] 0.5 E9/L Normal 0.2 - 1.0 E9/L [facility] Neutrophils/100 WBC (Bld) 71.9 % Normal 36.0 - 75.0 % [facility] Neutrophils/Leukocyte s Auto (Bld) [Pure # fraction] 5.8 E9/L [...] [Mass/Vol] 33.8 g/dL Normal 31.4 - 36.0 gm /dL [facility] MCV (RBC) [Entitic vol] 95.5 fL Normal 80.0 - 100.0 fL [facility] Platelet mean volume (Bld) [Entitic vol] 8.5 fL Normal 6.4 - 10.8 fL [facility] Platelets (Bld) [#/Vol] 303.0 E9/L Normal 150.0 - 500.0 E9/L [facility] RBC (Bld) [#/Vol] 4.0 E12/L Low 4.3 - 5.9 E12/L [facility] WBC corrected for nucl RBC Auto (Bld) [#/Vol] 8.1 E9/L Normal 4.0 - 11.0 E9/L [facility] Physician Orderon 06-21-2023 Physician Order [id number]#1.00TIFF Normal [facility] T3 Uptakeon 06-21-2023 T3 Uptake 46.6 % Normal 32.0-48.4 [facility] Comment on above: Performed By: #### 2 108331, 3493359 #### [facility] [address] [place] [address] T4 Totalon 06-21-2023 T4 18.8 microgram/dL High 4.6-9.1 [facility] Comment on above: Performed By: #### 2 686831, 0653534 #### [facility] [address] [place] [address] TSHon 06-21-2023 TSH Qn 0.07 m[IU]/L Low 0.34-5.60 [facility] Comment on above: Performed By: #### 2 460162, 0409391, 5867171, 3363575, 31016680 #### [facility] [address] [place] [address] eGFRon 06-21-2023 GFR/1.73 sq M.predicted among non-blacks MDRD (S/P/Bld) [Vol rate/Area] mL/min/{1.73_m2} Normal >=59 [facility] Comment on above: Order Comment: Order added by Discern Expert. Performed By: #### 2 544364, 9748292, 5172225, 5979951, 81248633 #### [facility] [address] [place] [address] Family Medicine Office/Clini c Noteon 06-20-2023 Family [...] with voice recognition software. Occasional wrong-word or ?cwfkz-p-khnx? substitutions may have occurred due to the [...] know she has been working with her RETAIL TRAINING MANAGER in regards to blood test and lab [...] lost some weight. But again is seeing RETAIL TRAINING MANAGER in regards to these fluctuations denies any [...] with prim (more content not included)... Normal [facility] Comment on above: Result Comment: Elec tronically Signed By: Shoaib BRADSHAW, Filiberto Pulliam\.br\Date and Time Signed: 06/20/23 21:08 EST Patient Educationon 06-20-20 23 Patient Education ENT Otitis Media With Effusion, [...] weeks. Home care treatment may include: ? Njaj-zhi-anuppni pain relievers. ? A warm, moist cloth placed over the ear. Severe cases may require a procedure to insert tubes in the ears (tympanostomy tubes) to drain the fluid. Follow these instructions at home: ? Take kceh-zdn-qfswjgs and prescription medicines only as told by [...] provider. Document Revised: 10/04/2021 Document Reviewed: 10/04/2021 [employer] Patient Education ? 2022 [employer] Endocrinology Thyroid Nodule A thyroid nodule [...] hyperthy (more content not included)... Normal [facility] MRI Spine Cervical w/o Contr elviar 06-10-2023 MRI Spine Cervical w/o Contrast Exam [...] Thompson FINAL REPORT Dictated: 06/10/2023 10:16 am Tatum MD, Jose V. Signed (Electronic Signature): 06/10/2023 10:16 am Signed by: Jose Tatum MD, V. Transcribed by: YAMINI Technologist: CAPRI Technical Comments None Normal [facility] Consent for Treatmenton 05-23 Consent for Treatment [id number]#1.00TIFF Normal [facility] RAD - MRI Screening Formon 1 08-10-2022 RAD - MRI Screening Form [id number]#1.00TIFF Normal [facility] Physician Orderon 06-03-2023 Physician Order [id number]#1.00TIFF [facility] Consent for Treatmenton Consent for Treatment [id number]#1.00TIFF [facility] Physician Orderon 04-28-2023 Physician Order [id number]#1.00TIFF Normal [facility] XR Spine Cervical 4 or 5 Vie [...] , FINAL REPORT Dictated: 04/28/2023 4:28 pm Cassius Ernst MD Signed (Electronic Signature): 04/28/2023 4:28 pm Signed by: Cassius Ernst MD Transcribed by: YAMINI Technologist: DIPTI Technical Comments Radiation Dose: Kar in mGy = na DAP = na Normal [facility] EMG Electromyographyon 01-21 EMG Electromyography [id number]#1.00CD:127 Normal [facility] Consultation Noteon 01-16-20 Consultation Note [id number]#1.00CD:127 Normal [facility] Auth for Release of Medical Recordson 12-17-2022 Auth for Release of Medical Records [id number]#1.00CD:127 Normal [facility] Consultation Noteon 11-16-19 Consultation Note [id number]#1.00CD:127 Normal [facility] EMG Electromyographyon 10-17 EMG Electromyography [id number]#1.00CD:127 Normal [facility] Consultation Noteon 10-08-19 Consultation Note [id number]#1.00CD:127 Normal [facility] Consultation Noteon 07-31-19 Consultation Note [id number]#1.00CD:127 Normal [facility] CHEMISTRYOrdered By: SYSTEM SYSTEM on 12-03-2021 Free T4 [Mass/Vol] 0.66 ng/dL Normal 0.58 - 1.64 ng/dL FT Remisol Glucose post fast [Mass/Vol] 90 mg/dL Normal 55 - 99 mg/dL FT Remisol TSH Qn 2.54 m[IU]/L Normal 0.34 - 5.60 mcIU/mL FT Remisol Reference Laboratory Testing Ordered By: Generated DomainUser on 07-13-2021 SARS-CoV-2 (COVID-19) RNA KEITH+probe Ql (Resp) Not detected Invalid Interpretation Code Not Detected [facility] Comment on above: Result Comment: This nucleic acid amplification test was developed and its performance characteristics determined by [facility]. Nucleic acid amplification tests include RT-PCR and [...] detected) result in this assay. Performed at: [address] [id number] PhD Mahnaz Conklin Vital Signs Date Time Vital Sign Value Performing Clinician Facility 07-24-2023 13:41-0500 [facility] 07-24-2023 13:41-0500 Diastolic blood pressure 70 mm[Hg] [facility] 07-24-2023 13:41-0500 Heart rate 86 /min [facility] 07-24-2023 13:41-0500 SaO2% (BldA) [Mass fraction] 98 % [facility] 07-24-2023 13:41-0500 Systolic blood pressure 106 mm[Hg] Paul itsDapperdimella [facility] 07-18-2023 16:16-0500 Blood Pressure Location Nancy BARRIENTOS [facility] 07-18-2023 16:16-0500 Diastolic blood pressure 60 mm[Hg] Nancy BARRIENTOS [facility] 07-18-2023 16:16-0500 Heart rate 92 /min Nancy BARRIENTOS [facility] 07-18-2023 16:16-0500 Respiratory rate 16 /min Nancy BARRIENTOS [facility] 07-18-2023 16:16-0500 SaO2% (BldA) [Mass fraction] 98 % Nancy BARRIENTOS [facility] 07-18-2023 16:16-0500 Systolic blood pressure 90 mm[Hg] Nancy BARRIENTOS [facility] 06-24-2023 13:49-0500 Blood Pressure Location Paul Gudimella [facility] 06-24-2023 13:49-0500 Diastolic blood pressure 72 mm[Hg] Paul Gudimella [facility] 06-24-2023 13:49-0500 Heart rate 89 /min Paul Gudimella [facility] 06-24-2023 13:49-0500 SaO2% (BldA) [Mass fraction] 97 % Paul Gudimella [facility] 06-24-2023 13:49-0500 Systolic blood pressure 98 mm[Hg] Paul Gudimella [facility] 06-20-2023 18:43-0500 Blood Pressure Location Filiberto Cramer [facility] 06-20-2023 18:43-0500 Body temperature 98.06 [degF] Filiberto Cramer [facility] 06-20-2023 18:43-0500 Diastolic blood pressure 76 mm[Hg] Filiberto Cramer [facility] 06-20-2023 18:43-0500 Heart rate 96 /min Filiberto Cramer [facility] 06-20-2023 18:43-0500 SaO2% (BldA) [Mass fraction] 98 % Filiberto Cramer [facility] 06-20-2023 18:43-0500 Systolic blood pressure 122 mm[Hg] Filiberto Cramer [facility] 12-28-2021 11:20-0400 Body height 167.64 cm Ric Tinoco Other [facility] Other 12-28-2021 11:20-0400 Body mass index (BMI) [Ratio] 21.14 kg/m2 Ric Tinoco Other [facility] Other 12-28-2021 11:20-0400 Body weight 59.42 kg Ric Tinoco Other [facility] Other 04-17-2021 15:40-0400 Body height 167.64 cm Ric Tinoco Other [facility] Other 04-17-2021 15:40-0400 Body mass index (BMI) [Ratio] 21.14 kg/m2 Ric Tinoco Other [facility] Other 04-17-2021 15:40-0400 Body weight 59.42 kg Ric Tinoco Other [facility] Other 05-31-2020 15:50-0500 Body weight 63.96 kg [facility] [place] [facility] [place] 05-31-2020 15:50-0500 BP Diastolic 79 mm[Hg] [facility] [place] [facility] [place] 05-31-2020 15:50-0500 BP Systolic 107 mm[Hg] [facility] [place] [facility] [place] 05-31-2020 15:50-0500 Pulse (Heart Rate) 67 /min [facility] [place] [place] 05-31-2020 15:50-0500 Pulse Oximetry 100 % [facility] [place] [facility] [place] 05-31-2020 15:50-0500 Respiratory Rate 20 /min [facility] [place] Encounters Encounter Date Encounter Type Care Provider Facility Start: 07-24-2023 End: 07-25-2023 ambulatory MD Paul Bass Facility:[facility] Start: 07-24-2023 End: 07-24-2023 Patient encounter procedure Paul Kali [facility] Start: 07-18-2023 End: 07-19-2023 ambulatory Nancy BARRIENTOS Facility:[facility] Start: 07-18-2023 End: 07-18-2023 Patient encounter procedure Nancy BARRIENTOS [facility] Start: 07-18-2023 End: 07-19-2023 ambulatory MD Paul Bass Facility:[facility] Start: 07-18-2023 End: 07-18-2023 Patient encounter procedure Paul Bass [facility] Start: 07-14-2023 End: 07-14-2023 ambulatory MD Ruben Barrientos Work Phone: [facility] Work Phone: Start: 07-14-2023 End: 07-14-2023 Departed Referred MD Ruben Barrientos Work Phone: [facility] Start: 07-08-2023 ambulatory MD Paul Oseguera lity:[facility] Start: 07-04-2023 End: 07-04-2023 ambulatory MARTA PUENTE Not Available Start: 06-27-2023 ambulatory MD Paul Oseguera lity:[facility] Start: 06-27-2023 End: 06-28-2023 ambulatory MD Paul Bass Facility:[facility] Start: 06-27-2023 End: 06-27-2023 Patient encounter procedure Paul Bass [facility] Start: 06-24-2023 End: 06-25-2023 ambulatory MD Paul Bass Facility:[facility] Start: 06-24-2023 End: 06-24-2023 Patient encounter procedure Paul Bass [facility] Start: 06-21-2023 End: 06-22-2023 ambulatory Filiberto Cramer Facility:[facility] Start: 06-21-2023 End: 06-21-2023 Patient encounter procedure Filiberto Cramer [facility] Start: 06-20-2023 End: 06-21-2023 ambulatory Filiberto Cramer Facility:[facility] Start: 06-20-2023 End: 06-20-2023 Patient encounter procedure Filiberto Cramer [facility] Start: 06-09-2023 End: 06-10-2023 ambulatory Narendranath Lakshmipathy Facility:[facility] Start: 06-09-2023 End: 06-09-2023 Patient encounter procedure Narendranath Lakshmipathy [facility] Start: 05-07-2023 End: 05-07-2023 ambulatory KRAIG PARK Not Available Start: 04-28-2023 ambulatory Anitra BARRIENTOS Facility: [facility] Start: 04-28-2023 End: 04-29-2023 ambulatory EBER CASTANEDA Facility:[facility] Start: 04-28-2023 End: 04-28-2023 Patient encounter procedure EBER CASTANEDA [facility] Start: 11-05-2022 End: 11-06-2022 ambulatory VOLODYMYRDOROTHEA CHRISTINA . Facility: Start: 10-22-2022 End: 10-22-[address] DOCTOR ALEJANDRE Facility: Start: 10-01-2022 End: 10-02-2022 ambulatory ISAURA KELLY . Facility:[facility] Start: 08-27-2022 End: 08-27-2022 ambulatory Ric Tinoco Other [facility] [employer] Other Start: 08-27-2022 Telephone encounter Ric Tinoco [facility] Start: 06-11-2022 End: 06-12-[address] HEBR RIVERO . Facility: Start: 05-28-2022 End: 05-28-[address] HERB RIVERO . Facility: Start: 03-05-2022 End: 03-06-[address] HERB RIVERO . Facility: Start: 12-28-2021 End: 12-28-2021 ambulatory Ric Tinoco Other [facility] [employer] Other Start: 12-28-2021 Office outpatient visit 15 minutes Ric Tinoco [facility] Start: 12-03-2021 End: 12-03-2021 Patient encounter procedure Kraig Park [facility] Start: 11-08-2021 End: 11-09-[address] HERB RIVERO . Facility: Start: 07-13-2021 End: 10-11-2021 Patient encounter procedure Nancy BARRIENTOS [facility] Start: 04-17-2021 Office outpatient visit 15 minutes Ric Tinoco CORNELIO [facility] Neurosurgery Start: 05-31-2020 End: 05-31-2020 Emergency department patient visit KATHY GHOSH [facility] Start: 05-31-2020 End: 05-31-2020 Emergency department patient visit Kathy Ghosh Work Phone: [facility] ED Comment on above: Chest wall pain (Brunilda michelet Dx) Start: 12-30-2018 End: 01-07-2019 Patient encounter procedure PROVIDER UNKNOWN Facility:[facility] Procedures Date Procedure Procedure Detail Performing Clinician Start: 07-14-2023 Fine biopsy needle, device (physical object) Nancy BARRIENTOS Comment on above: thyroid nodule Start: 06-12-2020 Local anesthetic sac ral epidural block Nancy BARRIENTOS Comment on above: [facility] per pain mgmt Start: 05-31-2020 Ecg routine ecg w/le ast 12 lds w/i&r KATHY GHOSH Start: 05-31-2020 Ecg routine ecg w/le ast 12 lds w/i&r Kathy Ghosh Work Phone: Start: 12-06-2019 Interbody fusion of lumbar spine by anterior approach Nancy BARRIENTOS Comment on above: [facility] Start: 06-19-2018 Removal of sebaceous cyst Nancy BARRIENTOS Comment on above: Right inner thigh Start: 06-23-2006 Augmentation mammoplasty Nancy BARRIENTOS H/O: hysterectomy S/P laparoscop ic hysterectomy MD Ruben Barrientos Work Phone: laparoscopy 4 Nancy [place] [facility] Comment on above: 2014 Dr. Redd- [place] metriosis laparoscopy 5 Christopher [facility] Comment on above: 2014 Dr. Chantel narvaez metriocliff lumbar microdisectomy 5 Rex BARRIENTOS Comment on above: 10/2017 Dr. Barnes @ [facility] lumbar microdisectomy 6 Rex BARRIENTOS Comment on above: 10/2017 Dr. Barnes @ [facility] 6 Rosendoeduardo GIUSEPPE BIRCH Comment on above: per Dr. Glez 8 wisdom teeth extracted Ruben BARRIENTOS Plan of Treatment Date Care Activity Detail Author Start: 07-29-2023 ambulatory Ambulatory Facility:[facility] Start: 02-22-2020 Influenza vaccination Flu vaccine (# 1) [place], [place] EKG 12 Lead EKG 12 Lead ECG STAT 05/31/2020 4:01 PM EST [place], [place] Immunizations Immunization Date Immunization Notes Care Provider Fa cility 10-28-2020 COVID-19, mRNA, LNP-S, PF, 30 mcg/0.3 mL dose; Translations: [Pfizer-BioNTech COVID-19 Vaccine] Nancy BARRIENTOS [facility] Comment on above: Reason for Medicatio n: Prophylaxis 10-07-2020 COVID-19, mRNA, LNP-S, PF, 30 mcg/0.3 mL dose; Translations: [Pfizer-BioNTech COVID-19 Vaccine] Nancy BARRIENTOS [facility] Comment on above: Reason for Medicatio n: Prophylaxis 04-15-2020 influenza, injectable, quadrivalent, contains preservative Nancy BARRIENTOS [facility] 03-23-2018 influenza virus vaccine, unspecified formulation Nancy BARRIENTOS [facility] 03-10-2013 tetanus toxoid, reduced diphtheria toxoid, and acellular pertussis vaccine, adsorbed Nancy BARRIENTOS [facility] Comment on above: Reason for Medicatio n: Other (see comment) 10-13-2007 tetanus toxoid, reduced diphtheria toxoid, and acellular pertussis vaccine, adsorbed Filiberto Cramer [facility] 10-24-1999 hepatitis A and hepatitis B vaccine Filiberto Cramer [facility] 01-25-1998 measles, mumps and rubella virus vaccine Filiberto Cramer [facility] NEGATED: Highlighted row has not occurred!07-18-2023 influenza virus vaccine, unspecified formulation Rosendodeandrasanjeev BARRIENTOS [facility] NEGATED: Highlighted row has not occurred!06-20-2023 influenza virus vaccine, unspecified formulation Filiberto Cramer [facility] Payers Date Payer Category Payer Self-pay [id number] 2022 Medicaid [id number] 2006 Private Health Insurance [id number] 1984 Unknown [id number] 2.16.8 40.1.846608.3.579.2.647 1984 Unknown [id number] 2.16.84 0.1.433445.3.579.2.174 1984 Unknown [id number] 2.16.84 0.1.823646.3.579.2.593 1984 Unknown [id number] 2.16.84 0.1.352323.3.579.2.593 1984 Unknown [id number] 2.16.84 0.1.663500.3.579.2.593 1984 Unknown [id number] 2.16.84 0.1.504662.3.579.2.593 1984 Unknown [id number] 2.16.84 0.1.863205.3.579.2.593 1984 Unknown [id number] 2.16.84 0.1.217281.3.579.2.593 1984 Unknown [id number] 2.16.84 0.1.995666.3.579.2.593 1984 Unknown [id number] 2.16.84 0.1.880309.3.579.2.1259 1984 Unknown [id number] 2.16.840 .1.678720.3.579.2.1259 1984 Unknown [id number] 2.16.8 40.1.586145.3.579.2 1984 Unknown [id number] 2.16.8 40.1.384795.3.579.272 1984 Unknown [id number] 2.16.8 40.1.146656.3.579.272 1984 Unknown [id number] 2.16.8 40.1.946465.3.579.272 1984 Unknown [id number] 2.16.8 40.1.406615.3.579.2 1984 Unknown [id number] 2.16.8 40.1.967354.3.579.2.727 1984 Unknown [id number] 2.16.8 40.1.083903.3.579.272 1984 Unknown [id number] 2.16.8 40.1.299487.3.579.2727 1984 Unknown [id number] 2.16.8 40.1.142054.3.579.272 1984 Unknown [id number] 2.16.8 40.1.036302.3.579.272 1984 Unknown [id number] 2.16.8 40.1.960491.3.579.272 1984 Unknown [id number] 2.16.8 40.1.572840.3.579.2.727 1984 Unknown [id number] 2.16.8 40.1.693069.3.579.2.727 1959 Private Health Insurance [id number] 1.2.840.6986[id number] Unknown [id number] 2.16.8 40.1.608938.3.579.2.531 Social History Date Type Detail Facility Start: 05-31-2020 End: 07-24-2023 Tobacco smoking status NHIS Never smoker Path.To Start: 05-31-2020 Tobacco use and exposure Never used Path.To Sex Assigned At [facility] [place] Exposure to SARS-CoV -2 (event) Not sure [facility] [place] Tobacco smoking status Never [facility] Sex Assigned At Female [employer] Other Start: 1985 Sex Assigned At Female F [facility] Medical Equipment Procedure Code Equipment Code Equipment Origin al Text Equipment Identifier Dates Anterior lumbar interbody fusion (ALIF) STRATOFUSE DBM [id number] FDA Start: 12-06-2019 Anterior lumbar interbody fusion (ALIF) Orthopaedic bone screw, non-bioabsorbable, non-sterile [id number] FDA Start: 12-06-2019 Anterior lumbar interbody fusion (ALIF) Orthopaedic bone screw, non-bioabsorbable, non-sterile [id number] FDA Start: 12-06-2019 Anterior lumbar interbody fusion (ALIF) Bone-screw internal spinal fixation system, non-sterile +[id number] FDA Start: 12-06-2019 Anterior lumbar interbody fusion (ALIF) Bone-screw internal spinal fixation system, non-sterile +[id number] FDA Start: 12-06-2019 Anterior lumbar interbody fusion (ALIF) Spinal fusion graft kit [id number] FDA Start: 12-06-2019 Anterior lumbar interbody fusion (ALIF) Spinal bone screw, non-bioabsorbable ()[id number] FDA Start: 12-06-2019 Anterior lumbar interbody fusion (ALIF) Metallic spinal fusion cage, non-sterile ()[id number] FDA Start: 12-06-2019 Anterior lumbar interbody fusion (ALIF) Bone-screw internal spinal fixation system, non-sterile [id number] FDA Start: 12-06-2019 Functional Status Date Assessment Result Facility 07-24-2023 Functional Status N/A [facility] 07-18-2023 Functional Status N/A [facility] 06-24-2023 Functional Status N/A [facility] 06-20-2023 Functional Status N/A [facility] Care Clinical Notes 04-17-2021 to 07-24-2023 LaboratoryRadiologyLaboratoryLaboratory Note Date & Type Note Facility 07-24-2023 Evaluation + Plan note Future Scheduled TestsLab Miscellaneous-LC 07/24/23Echo Transthoracic Complete 07/24/23 [facility] 07-18-2023 Evaluation + Plan note Diagnostic Tests PendingT3 Reverse, Serum 07/18/23Thyroid Perox.tpo Ab 07/18/23TgAb+Thyroglobulin,NIGEL or KELVIN 07/18/23 [facility] 07-18-2023 Hospital Discharge instructions Patient Education 07/18/2023 08:07:09 Hyperthyroidism Hyperthyroidism Hyperthyroidism refers to a thyroid gland that is too active or overactive. The thyroid gland is a small gland located in the lower front part of the neck, just in front of the windpipe (trachea). This gland makes hormones that: Help control how the body uses food for energy (metabolism). Help the heart and brain work well. Keep your bones strong. When the thyroid is overactive, it produces too much of a hormone called thyroxine. What are the causes? This condition may be caused by: Graves' disease. This is a disorder in which the body's disease-fighting system (immune system) attacks the thyroid gland. This is the most common cause. Inflammation of the thyroid gland. A tumor in the thyroid gland. Use of certain medicines, including: ?Prescription thyroid hormone replacement. ?Herbal supplements that mimic thyroid hormones. ?Amiodarone therapy. Solid or fluid-filled lumps within your thyroid gland (thyroid nodules). Taking in a large amount of iodine from foods or medicines. What increases the risk? You are more likely to develop this condition if: You are female. You have a family history of thyroid conditions. You smoke tobacco. You use a medicine called lithium. You take medicines that affect the immune system (immunosuppressants). What are the signs or symptoms? Symptoms of this condition include: Nervousness. Inability to tolerate heat. Diarrhea. Rapid heart rate. Shaky hands. Restlessness. Sleep problems. Other symptoms may include: Heart skipping beats or making extra beats. Unexplained weight loss. Change in the texture of hair or skin. Loss of menstruation. Fatigue. Enlarged thyroid gland or a lump in the thyroid (nodule). You may also have symptoms of Graves' disease, which may include: Protruding eyes. Dry eyes. Red or swollen eyes. Problems with vision. How is this diagnosed? This condition may be diagnosed based on: Your symptoms and medical history. A physical exam. Blood tests. Thyroid ultrasound. This test involves using sound waves to produce images of the thyroid gland. A thyroid scan. A radioactive substance is injected into a vein, and images show how much iodine is present in the thyroid. Radioactive iodine uptake test (RAIU). A small amount of radioactive iodine is given by mouth to see how much iodine the thyroid absorbs after a certain amount of time. How is this treated? Treatment depends on the cause and severity of the condition. Treatment may include: Medicines to reduce the amount of thyroid hormone your body makes. Medicines to help manage your symptoms. Radioactive iodine treatment (radioiodine therapy). This involves swallowing a small dose of radioactive iodine, in capsule or liquid form, to kill thyroid cells. Surgery to remove part or all of your thyroid gland. You may need to take thyroid hormone replacement medicine for the rest of your life after thyroid surgery. Follow these instructions at home: Take yjoo-oip-wxplcju and prescription medicines only as told by your health care provider. Do not use any products that contain nicotine or tobacco. These products include cigarettes, chewing tobacco, and vaping devices, such as e-cigarettes. If you need help quitting, ask your health care provider. Follow any instructions from your health care provider about diet. You may be instructed to limit foods that contain iodine. Keep all follow-up visits. You will need to have blood tests regularly so that your health care provider can monitor your condition. Where to find more information National [place] of Diabetes and Digestive and Kidney Diseases: niddk.nih.gov Contact a health care provider if: Your symptoms do not get better with treatment. You have a fever. You have abdominal pain. You feel dizzy. You are taking thyroid hormone replacement medicine and: ?You have symptoms of depression. ?You feel like you are tired all the time. ?You gain weight. Get help right away if: You have sudden, unexplained confusion or other mental changes. You have chest pain. You have fast or irregular heartbeats (palpitations). You have difficulty breathing. These symptoms may be an emergency. Get help right away. Call 911. Do not wait to see if the symptoms will go away. Do not drive yourself to the hospital. Summary The thyroid gland is a small gland located in the lower front part of the neck, just in front of the windpipe. Hyperthyroidism is when the thyroid gland is too active and produces too much of a hormone called thyroxine. The most common cause is Graves' disease, a disorder in which your immune system attacks the thyroid gland. Hyperthyroidism can cause various symptoms, such as unexplained weight loss, nervousness, inability to tolerate heat, or changes in your heartbeat. Treatment may include medicine to reduce the amount of thyroid hormone your body makes, radioiodine therapy, surgery, or medicines to manage symptoms. This information is not intended to replace advice given to you by your health care provider. Make sure you discuss any questions you have with your health care provider. Document Revised: 08/02/2022 Document Reviewed: 08/02/2022 [employer] Patient Education 2022 [employer]. Follow Up Care 07/18/2023 07:34:13 With:Nancy BARRIENTOS MD, FAM Address: When: only if needed [facility] 06-21-2023 Evaluation + Plan note Diagnostic Tests PendingT3 Free 06/21/23 Future Scheduled TestsCBC w/ Auto Diff 06/20/23Comprehensive Metabolic Panel 06/20/23Free T4 06/20/23 [facility] 06-20-2023 Hospital Discharge instructions Patient Education 06/20/2023 [...] few weeks. Home care treatment may include: Krwf-brn-mducfth pain relievers. A warm, moist cloth placed over the ear. Severe cases may require a procedure to insert tubes in the ears (tympanostomy tubes) to drain the fluid. Follow these instructions at home: Take xusn-xfp-mulfwco and prescription medicines only as told by [...] provider. Document Revised: 10/04/2021 Document Reviewed: 10/04/2021 [employer] Patient Education 2022 [employer] 06/20/2023 19:03:16 Thyroid Nodule Thyroid Nodule [...] in your thyroid nodule or nodules. Take nvxz-jry-nymcodi and prescription medicines only as told by [...] provider. Document Revised: 04/22/2022 Document Reviewed: 04/22/2022 [employer] Patient Education 2022 [employer] Follow Up Care 06/20/2023 07:23:01 With:Nancy BARRIENTOS MD, FAM Address: [address] [place], [place] [id number]- When: Unknown [facility] 06-20-2023 Evaluation + Plan note Future Scheduled TestsT4 Total 06/20/23CBC w/ Auto Diff 06/20/23Comprehensive Metabolic Panel 06/20/23T3 Free 06/20/23T3 Uptake 06/20/23Thyroid Stimulating Hormone 06/20/23Free T4 06/20/23 [facility] 10-01-2022 Note CONSULTATION CONSULTATION [...] our patients to inform us about any jksb-tqq-madysmk medications or herbal remedies/nutritional supplements/alternative remedies. 2. [...] options with their primary care provider. [facility] 06-11-2022 Note CONSULTATION CONSULTATION DATE: 06/11/2022 [...] and concurs. CC: Nancy Barrientos M.D. [facility] 03-05-2022 Note PAIN MANAGEMENT CONS ULTATION [...] along this region. CC: Dr. Barrientos [facility] 12-28-2021 Evaluation note Encounter Date Diagnosis [...] follow her up on an as-needed basis [employer] Other 06-13-2022 Evaluation + Plan note Diagnostic Tests Pending * Insulin Level Total 12/03/21 * T3 Free 12/03/21 * FSH Level 12/03/21 Future Scheduled Tests Laboratory* COVID-19 ([facility] 07/13/21 [facility]05-19-2022 NoteCONSULTATION CONSULTATION DATE: 11/08/2021 This is a [...] does plan on seeing Dr. Damon in [place] for. Activities that aggravate her neck are [...] of care and would like to proceed. [facility] Signed and Approved by: ISAURA KELLY . 11/12/2021 15:05:00[facility]01-21-2022 Evaluation + Plan note Future Scheduled Tests Laboratory* COVID-19 ([facility]) 07/13/21 [facility]10-26-2021 Evaluation note* Encounter Date Diagnosis Assessment Notes Treatment Notes Treatment Clinical Notes Mar, Spondylolisthesis at L5-S1 level (ICD-10 - M43.17) I answered a number of questions for the patient. I think a transforaminal injection may be beneficial. I also believe that she could potentially benefit from a dorsal column stimulator. She is seeing a another neurologist at [facility] and I am interested in what medication changes are made. I will see the patient again in 3 months and review this with her. I looked at the picture of the spine today she has good bone formation and her FPC hardware is intact. Because of the persistent [...] region with neurogenic claudication (ICD-10 - M48.062) [place] [employer] Other evaluation + Plan note Future Appointments Appointment Date:06/27/2023 07:30:00 AM Scheduled Provider: Location:.[facility] Appointment Type:US Thyroid/Neck/Chest () Appointment Date:06/27/2023 08:00:00 AM Scheduled Provider: Location:.CARDIO Appointment Type:CV EKG () Appointment Date:07/29/2023 12:40:00 PM Scheduled Provider:Nancy BARRIENTOS MD Location:[facility] Appointment Type: Open Future Scheduled Tests Laboratory* UA With Cult Reflex 06/24/23 * CBC w/ Auto Diff 06/20/23 * Comprehensive Metabolic Panel 06/20/23 * Lipid Panel 06/24/23 * Free T4 06/20/23 Radiology* US Thyroid 06/27/23 [facility] Evaluation + Plan note Future Appointments Appointment Date:07/29/2023 12:40:00 PM Scheduled Provider:Nancy BARRIENTOS [facility] Type: Open Future Scheduled Tests Laboratory* UA With Cult Reflex 06/24/23 * CBC w/ Auto Diff 06/20/23 * Comprehensive Metabolic Panel 06/20/23 * Lipid Panel 06/24/23 * Free T4 06/20/23 Radiology* US FNA w/ Guidance, first lesion 06/27/23 * NM Thyroid Imaging w/ Uptk Multiple [facility] [employer] Other evaluation noteNo assessment information available [facility] Work Phone: History general Narrative - Reported* Type Description Date Medical History Breast augmentation Surgical History Laproscopic SAMAN removal of Endo metriosis Dr. Rosales 2014 Surgical History Laproscopic removal of endometr iosis 2014 Surgical History Cortisone injection and nerve a blations in back 2016 Surgical History steroid injection/nerve ablatio n (back) 2016 Surgical History breast augmentation Surgical History breast implants replaced 2016 Surgical History LAVH/BSO 09-11-17 Surgical History Micro discectomy L5-S1 2017 Surgical History Hysterectomy; total 08/2017 Surgical History Micro discectomy L5-S1 10/2017 Surgical History ALIF-Doctor Alejandrina Hospitalization History see surgical hx [facility] [employer] Other Hospital course Narrative No data available for this section [facility] No data available for this section [facility] No data available for this section [facility] Summary Purpose Family History No Family History Records Found Relationship Condition Age at Onset Recorded Date/T rody Not Specified Healthy female adult Unknown father Osteoarthritis Unknown Degeneration of intervertebral disc Unkno wn Advance Directives No Advanced Directives Records FoundDocuments on File Type Date Recorded 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 * Chest Pain: Musculoskeletal (Belarusian) documented in this encounter Assessments Diagnosis Chest wall pain Painful respiration Reason for Referral Reason Evaluate and Treat C onsider for Dorsal Column Stimulator Diagnosis 1 Spondylolisthesis at L5-S1 level (M43.17) Referral Organization [facility] Ne urosurgery Referring Provider First Name Ric Referring Provider Last Name Alejandrina Referring Provider Specialty Neurologica l Surgery Referred Organization Unknown Facility Referred Provider Mansoor Summers Referred Provider Specialty Pain Medicin e Referral Priority Routine Additional Source Comments INFORMATION SOURCE (unrecogn ized section and content) DATE CREATED AUTHOR 01/14/2020 [facility] DATE CREATED AUTHOR AUTHOR'S ORGANIZ ATION 06/01/2020 [facility] DATE CREATED AUTHOR AUTHOR'S ORGANIZ ATION 11/06/2022 [facility] DATE CREATED AUTHOR AUTHOR'S ORGANIZ ATION 07/05/2023 [facility] DATE CREATED AUTHOR AUTHOR'S ORGANIZ ATION 07/17/2023 [facility] DATE CREATED AUTHOR AUTHOR'S ORGANMARCIA ATION 07/26/2023 [facility] Reason for Visit (unrecogniz ed section and content) Reason Comments Chest Pain intermittent chest p ain under left breast started last night, few episodes today, lasting approx 30 seconds, reports feeling more tired today Care Team (unrecognized sect ion and content) Team Status: Active Member Role Status Dates Ruben Barrientos MD Primary Care Provider Active Team Status: Inactive Member Role Status Dates Ruben Barrientos MD Primary Care Provider Active Start: July 14, 2023 End: July 14, 2023 Marta Puente Jr, MD Attending Provider Active Start: July 14, 2023 End: July 14, 2023 Goals (unrecognized section and content) Goals may be documented in a n alternate section FOR RECORDS PERTAINING TO PATIENTS WHO ARE [...] BE BASED ON THE PRIMARY CLINICAL RECORDS. [employer] provides no warranty or guarantee of the accuracy or completeness of information in this document.
== END 2023-07-29 10:37 | disposition home or self-care (01) ==
LOC: PM 10:36
PROVIDERS: Visit Provider Anesthesiology Pain Medicine
DX: M96.1 Postlaminectomy syndrome, not elsewhere classified (principal); M54.16 Radiculopathy, lumbar region; G58.8 Other specified mononeuropathies; R53.81 Other malaise
CPT/HCPCS: G0463

== ENCOUNTER 2023-09-03 10:05 | Outpatient (OUT) | payer MEDICAID, SELFPAY ==
--- OUTSIDE RECORDS SUMMARY | 2023-09-03 10:17 | XMS_ITS | CCD ---
Author Name Unknown Address [id number] [place] [address] Organization [facility] Care Team Providers Care Drafter Geological Name Role Phone UNKNOWN, PROVIDER Admitting Unavailable UNKNOWN, PROVIDER Attending Unavailable UNKNOWN, PHYSICIAN Referring Unavailable UNKNOWN, PHYSICIAN Primary Care Unavailable Nancy Barrientos Primary Care Provider [phone] KATHY GHOSH Attending Unavailable NANCY BARRIENTOS Primary Care Unavailable Nancy BARRIENTOS Primary Care Physician Ric Tinoco Unavailable JOSEFA .DR HERB Attending Unavailable RIVERO ., DR HERB Melgar Admitting Unavailable RIVERO ., DR HREB Melgar Consulting Unavailable MISC, DR MURRIETA Primary Care Unavailable LAKSHMIPATHY ., SHARONA Consulting Fide vailable MISC, DR MURRIETA Primary Care Unavailable LAKSHMIPATHY ., SHARONA Admitting Fide vailable LAKSHMIPATHY ., SHARONA Attending Fide vailable HALCHANDAN .LOYD Consulting Unavailable KELLY ., ISAURA Consulting Unavailable RIVERO ., DR HERB Melgar Attending Unavailable MISC, DR MURRIETA Primary Care Unavailable RIVERO ., DR HERB Melgar Admitting Unavailable LAKSHMIPATHY ., SHARONA Consulting Fide vailable MISC, DR MURRIETA Primary Care Unavailable LAKSHMIPATHY ., NARENDGINOATH Admitting Fide vailable LAKSHMIPATHY ., NARENDGINOATH Attending Fide vailable LAKSHMIPATHY ., SHARONA Consulting [...] RIVERO ., DR HERB Melgar Consulting Unavailable RIVERO ., DR HERB Melgar Attending Unavailable MISC, DR MURRIETA Primary Care Unavailable RIVERO ., DR HERB Melgar Consulting Unavailable RIVERO ., DR HERB Melgar Admitting Unavailable KELLY .ISAURA Consulting Unavailable MD Ruben Barrientos Primary Care Provider MD Marta Puente Jr Attending Provider Marta Duncan Jr Attending Unavailable Marta Puente Jr Admitting Unavailable Ruben Barrientos Primary Care Unavailable Nancy Barrientos MD Primary Care Provider MARTA PUENTE Attending Unavailable GUMYRAMELSAMANTHA, PAUL Referring Unavailable KRAIG PARK Attending Unavailable MARTA PUENTE Attending Unavailable NANCY BARRIENTOS Referring Unavailable Filiberto Cramer Admitting Unavailable Filiberto Cramer Attending Unavailable Gudimella, Paul Attending Unavailable Gudimella, Paul Admitting Unavailable Gudimella, Paul Admitting Unavailable Gudimella, Paul Attending Unavailable Gudimella, Paul Referring Unavailable Filiberto Cramer Attending Unavailable Andredimella, Paul Attending Unavailable Gudimella, Paul Attending Unavailable Gudimella, Paul Attending Unavailable Nancy BARRIENTOS Attending Unavailable Anitra BARRIENTOS Attending Unavailable Nancy BARRIENTOS Attending Unavailable Bethmella, Paul Admitting Unavailable Gudimella, Paul Attending Unavailable Gudimella, Paul Referring Unavailable Lakshmipathy, Narendranath Admitting Unava ilable Lakshmipathy, Narendranath Attending Unava ilable Lakshmipathy, Narendranath Referring Unava ilable LEONEL, EBER JOSE Admitting Unavailable LEONEL, EBER JOSE Attending Unavailable Allergies Allergy Classification Reported Allergen(s) Allergy Type Date of Onset Reaction(s) Facility (1 source) Adhesive agent; Translations: [Unknown] Propensity to adverse reactions (disorder) 9 [facility] Repository (12 sources) Adhesive Tape; Translations: [Tape] Drug allergy Eruption of skin (disorder) [facility] (19 sources) Latex; Translations: [Latex] Drug allergy 5 Rash [email or web address] Other (3 sources) adhesive bandages Propensity to adverse reactions rash [email or web address] Other (1 source) Adhesive agent Drug allergy (disorder) 6 [facility] Repository (1 source) Adhesive agent Drug allergy (disorder) 2 [facility] Repository (1 source) Adhesive Tape Drug allergy (disorder) 0 [facility] Repository (3 sources) Wound Dressing Adhesive Drug Allergy 5 Rash [facility] Medications Current Medications Medication Drug Class(es) Dates [...] Status: Ordered baclofen 10 mg oral tablet (13 sources) gamma-Aminobutyr ic Acid-ergic Agonist Start: 03-23-2023 take 0.5-1 tablets by mouth twice daily baclofen (Lioresal) 10 MG tablet TAKE 1/2 TO 1 (ONE-HALF TO ONE) TABLET BY MOUTH TWICE DAILY 0 03/23/2023 Active Start: 10-18-2021 take 0.5-1 tablets b y mouth once daily baclofen 10 mg Tab [...] course, # 28 cap(s), Refills(s) 0, Pharmacy: [facility], 168, cm, 07/11/20 8:27:00 EST, [...] Daily, # 90 tab(s), Refills(s) 1, Pharmacy: [facility], 168, cm, 07/11/20 8:27:00 EST, Height/Length Dosing, 64.1, kg, 07/11/20 8:27:00 EST, Weight Dosing Start Date: 11/23/20 Status: Ordered cyclobenzaprine hydrochloride 10 mg oral tablet (4 sources) Muscle Relaxant Start: 09-04-2017 End: 12-08-2019 take 10 mg by mouth three times daily Cyclobenzaprine Active 10 MG PO Three times daily December 07, 2019 11:00pm 1 ml erenumab-aooe 140 mg/ml auto-injector (15 sources) Start: 11-30-2019 Aimovig 140 MG/ML injection INJECT 1 SYRINGE SUBCUTANEOUSLY ONCE EVERY MONTH 0 06/21/2022 Active Start: 02-01-2019 inject 140 mg by sub cutaneous injection every month Aimovig SureClick 70 mg/mL subcutaneous solution 140 mg, SubCutaneous, qMonth, Refills(s) 0 Start Date: 02/01/19 Status: Ordered Erenumab-aooe (AIMOVIG) 140 MG/ML SOAJ (1 source) Erenumab-aooe (A IMOVIG) 140 MG/ML SOAJ every 30 days 0 Active estradiol 2 mg oral tablet (19 sources) Estrogen Start: 05-07-2023 End: 05-06-2024 take 1 tablet by mouth in the morning estradiol (Estrace) 2 MG tablet Indications: Menopausal symptoms Take 1 tablet (2 mg) by mouth in the morning. 30 tablet 11 05/07/2023 05/06/2024 Active Start: 06-19-2018 take 1 tablet by mouth once da rosibel Estrace 1 mg Tab 1 mg = 1 tab(s), Oral, Daily Start Date: 06/19/18 Status: Ordered fluticasone propionate 0.05 mg/actuat metered dose nasal spray (3 sources) Corticosteroid Start: 06-20-2023 End: 06-27-2023 take 2 spray(s) nasal route once daily Flonase 0.05 mg/inh Joice 2 spray(s), Nasal, Daily for 7 day(s), 16 gm, Refill(s) 0, each nostril, [facility], 168, cm, 06/20/23 18:45:00 EST, Height/Length Dosing, 58.4, kg, 06/20/23 18:45:00 EST, Weight Dosing Start Date: 06/20/23 Stop Date: 06/27/23 Status: Ordered gabapentin 600 mg oral tablet (19 sources) Anti-epileptic Agent Start: 11-08-2021 gabapentin 600 mg Tab Refills(s) 0 Start [...] BID, # 180 tab(s), Refills(s) 1, Pharmacy: [facility], 168, cm, 07/11/20 8:27:00 EST, Height/Length Dosing, 64.1, kg, 07/11/20 8:27:00 EST, Weight Dosing Start Date: 08/22/20 Status: Ordered loratadine 10 mg oral tablet (3 sources) Start: 02-23-2020 take 1 tablet by mouth once daily loratadine 10 mg Tab 10 mg = 1 tab(s), Oral, Daily, # 90 tab(s), Refills(s) 1, Pharmacy: [facility], 168, cm, 02/23/20 10:40:00 EDT, Height/Length Dosing, 65, kg, 02/23/20 10:40:00 EDT, Weight Dosing Start Date: 02/23/20 Status: Ordered Start: 11-30-2019 take 1 capsule by mo [facility] once daily loratadine (CLARITIN) 10 MG capsule Take 10 mg by mouth daily 0 11/30/2019 Active methIMAzole 10 mg oral tablet (2 sources) Thyroid Hormone Synthesis Inhibitor Start: 08-01-2023 methIMAzole (Tapazole) 10 MG tablet Take 10 mg by mouth 0 08/01/2023 Active omeprazole 20 mg delayed release oral capsule (3 sources) Proton Pump Inhibitor take 1 capsule by mouth every twenty-four hours Omeprazole 20 MG 1 capsule Orally Once a day Active ondansetron 4 mg oral tablet (1 source) Serotonin-3 Receptor Antagonist Start: 07-10-2020 take 1 tablet by mouth every six hours as needed for nausea ondansetron 4 mg Tab 4 mg = 1 tab(s), Oral, q6hr, PRN Nausea/Vomiting, # 10 tab(s), Refills(s) 0, Pharmacy: [facility], 168, cm, 07/10/20 13:24:00 EST, Height/Length Dosing, 62.1, kg, 07/10/20 13:24:00 EST, Weight Dosing Start Date: 07/10/20 Status: Ordered OXcarbazepine 300 mg oral tablet (18 sources) Anti-epileptic Agent Start: 03-10-2023 take 0.5 tablet by mouth in the morning, then take 1-2 tablets by mouth at bedtime OXcarbazepine (Trileptal) 300 MG tablet TAKE 1/2 (ONE-HALF) TABLET BY MOUTH IN THE MORNING AND 1 TO 2 TABLETS AT BEDTIME 0 03/10/2023 Active Start: 11-24-2020 take 1-2 tablets by mouth once daily at bedtime Trileptal 300 mg Tab See Instructions, take 1-2 tabs po qhs, Refills(s) 0 Start Date: 11/24/20 Status: Ordered Start: 02-22-2020 take 2 tablets by mo [facility] every twelve hours Trileptal 300 MG 2 tablet Orally Twice a day for 14 day(s) Feb, Active take 300 mg by mouth twice daily OXcarbazepine (TRILEPTAL PO) Take 300 mg by mouth 2 times daily 0 Active oxybutynin chloride 5 mg oral tablet (11 sources) Cholinergic Muscarinic Antagonist Start: 05-26-2020 take 1 tablet by mouth twice daily as needed oxybutynin 5 mg Tab 5 mg = 1 tab(s), Oral, BID, PRN for urinary discomfort, # 60 tab(s), Refills(s) 2, Pharmacy: [facility], 168, cm, 05/26/20 16:32:00 EST, Height/Length Dosing, 64, kg, 05/26/20 16:32:00 EST, Weight Dosing Start Date: 05/26/20 Status: Ordered take 1 tablet by [facility] every twenty-four hours in the morning oxybutynin XL (Ditropan-XL) 5 MG 24 hr tablet Take 5 mg by mouth in the morning. 0 Active take 1 tablet by mouth once jayce [...] breakfast, # 30 tab(s), Refills(s) 5, Pharmacy: [facility], 168, cm, 07/11/20 8:27:00 EST, Height/Length Dosing, 64.1, kg, 07/11/20 8:27:00 EST, Weight Dosing Start Date: 02/06/21 Status: Ordered predniSONE 20 mg oral tablet (3 sources) Start: 07-31-2023 take 1 tablet by mouth in the morning predniSONE (Deltasone) 20 MG tablet Take 20 mg by mouth in the morning. X 14 days. 0 07/31/2023 Active Start: 12-08-2019 Prednisone Act love 1 dose pk PO per package directions [...] Once, # 1 tab(s), Refills(s) 0, Pharmacy: [facility], 168, cm, 07/24/23 13:48:00 EST, Height/Length Dosing, 61, kg, 07/24/23 13:48:00 EST, Weight Dosing Start Date: 07/24/23 Status: Ordered Protonix 40 mg Tab-EC (3 sources) Start: 02-06-2021 take 1 tablet by mouth once daily 30 minutes before breakfast Protonix 40 mg Tab-EC 40 mg = 1 tab(s), Oral, Daily, Take 30 minutes before breakfast, # 30 tab(s), Refills(s) 5, Pharmacy: [facility], 168, cm, 07/11/20 8:27:00 EST, [...] 11/24/20 Status: Ordered tiZANidine 4 mg oral tablet (13 sources) Central alpha-2 Adrenergic Agonist Start: 03-24-2023 take 1 tablet by mouth once daily at bedtime tiZANidine (Zanaflex) 4 MG tablet TAKE 1/2 TO 1 (ONE-HALF TO ONE) TABLET BY MOUTH ONCE DAILY AT BEDTIME 0 03/24/2023 Active Start: 10-18-2021 take 0.5-1 tablets b y mouth once daily at bedtime Zanaflex 4 mg oral capsule See Instructions, take 1/2 - 1 tab po qhs, Refills(s) 0 Start Date: 10/18/21 Status: Ordered traMADol hydrochloride 50 mg oral tablet (11 sources) Opioid Agonist Start: 03-26-2023 take 1 tablet by mouth three times daily as needed traMADol (Ultram) 50 MG tablet TAKE 1 TABLET BY MOUTH THREE TIMES DAILY NEEDED. MUST LAST 30 DAYS. 0 03/26/2023 Active Start: 11-30-2019 End: 12-08-2019 take 50 mg by mouth three times daily Tramadol Discontinued 50 MG PO Three times daily November 29, 2019 11:00pm December 08, 2019 1:35pm Start: 09-04-2017 End: 09-12-2017 take 50 mg by mouth once daily in the morning Tramadol Discontinued 50 MG PO Every morning September 03, 2017 11:00pm September 12, 2017 7:12am valACYclovir 1000 mg oral tablet (7 sources) Herpesvirus Nucleoside Analog DNA Polymerase Inhibitor, Herpes Simplex Virus Nucleoside Analog DNA Polymerase Inhibitor, Herpes Zoster Virus Nucleoside Analog DNA Polymerase Inhibitor Start: 12-02-2022 valACYclovir (Valtr ex) 1 g tablet Take 1,000 mg by mouth in the morning and 1,000 mg before bedtime. 0 12/02/2022 Active Start: 01-18-2022 take 1 tablet by jaden th twice daily valacyclovir 1 g Tab 1 gram = 1 tab(s), Oral, BID, # 60 tab(s), Refills(s) 2, Pharmacy: [facility], 168, cm, 11/08/21 9:50:00 EDT, Height/Length Dosing, 65.4, kg, 11/08/21 9:50:00 EDT, Weight Dosing Start Date: 01/18/22 Status: Ordered Start: 11-23-2020 take 1 tablet by jaden th twice daily valacyclovir 1 g Tab 1 gram = 1 tab(s), Oral, BID, # 60 tab(s), Refills(s) 2, Pharmacy: [facility], 168, cm, 07/11/20 8:27:00 EST, Height/Length Dosing, 64.1, kg, 07/11/20 8:27:00 EST, Weight Dosing Start Date: 11/23/20 Status: Ordered Start: 11-23-2020 take 1 tablet by jaden twice daily valacyclovir 1 g Tab 1 gram = 1 tab(s), Oral, BID, # 60 tab(s), Refills(s) 2, Pharmacy: [facility], 168, cm, 07/11/20 8:27:00 EST, Height/Length Dosing, 64.1, kg, 07/11/20 8:27:00 EST, Weight Dosing Start Date: 11/23/20 Status: Ordered Completed/Discontinued Medications Medication Drug Class(es) Dates Sig (Normalized) Sig (Original) acetaminophen 325 mg / HYDROcodone bitartrate 5 mg oral tablet (2 sources) Opioid Agonist Start: 09-12-2017 End: 11-30-2019 take 1 tablet by mouth every four to six hours Hydrocodone-Acetami nophen ([place]) 5-325 mg tablet Discontinued 1 TAB PO EVERY 4-6 HOURS 30 September 12, 2017 November 30, 2019 9:37am Start: 09-04-2017 End: 09-12-2017 take 1 tablet by mouth once daily at bedtime Hydrocodone-Acetaminophen ([place]) 5-325 mg Tablet Discontinued 1 TAB PO [...] Estrogen Start: 09-04-2017 End: 09-12-2017 Norethindrone-E.Est radiol-Iron (June Fe 07/12 (28)) 1 mg-20 mcg (21)/75 [...] 30, 2019 9:38am Uses a chewable form Problems Active Problems Problem Classification Problem Date [...] (7 sources) Foot callus 11-08-2021 Episodic Other skin disorders (5 sources) Mass of neck; Translations: [Localized swelling, mass and lump, neck] Onset: 4 07-04-2023 Episodic Other upper respiratory disease (6 sources) Allergic rhinitis; Translations: [Allergic rhinitis, unspecified] Onset: 4 Chronic Other upper respiratory disease (3 sources) Chronic pharyngitis; Translations: [Chronic pharyngitis] Onset: 4 07-04-2023 Chronic Other upper respiratory infections (20 sources) [...] 1 Resolved: 2 06-27-2020 Episodic Thyroid disorders (20 sources) Thyrotoxicosis, unspecified without thyrotoxic crisis or [...] Name Value Interpretation Reference Range Facil ity Consultation Noteon 08-12-19 Consultation Note [id number]#[id number] Normal [facility] Insurance Correspondenceon 0 08-05-2023 Insurance Correspondence [id number]#[id number] Normal [facility] Consultation Noteon 08-04-19 Consultation Note [id number]#1.00TIFF Normal [facility] .Thyroglobulin by RIAon 07-24 Thyroglobulin [Mass/Vol] 159 ng/mL High [facility] Comment on above: Result Comment: Conf irmed by dilution. This test was developed and its performance characteristics determined by [facility]. It has not been cleared or approved by the Food and Drug Administration. Reference Range: Pubertal Children and Adults: <40 According to the National Academy of Clinical Biochemistry, the reference interval for Thyroglobulin (TG) should be related to euthyroid patients and not for patients who underwent thyroidectomy. TG reference intervals for these patients depend on the residual mass of the thyroid tissue left after surgery. Establishing a post-operative baseline is recommended. The assay quantitation limit is 2.0 ng/mL. Performed at: [facility] [address] [place] [address] [id number] MD Yadiel Cornell Performed By: #### 1 [id number] ####[facility] [address] [place] [address] T3 Reverseon 08-02-2023 T3.reverse [Mass/Vol] 31.2 ng/dL High 9.2-24.1 [facility] Comment on above: Result Comment: This test was developed and its performance characteristics determined by [facility]. It has not been cleared or approved by the Food and Drug Administration. Performed at: [address] [id number] MD Enrico Dean Performed By: #### 1 [id number] #### [facility] [address] [place] [address] TgAb+Thyroglobulinon 024 Thyroglobulin Ab Qn 2.7 International_Unit /mL High 0.0-0.9 [facility] Comment on above: Result Comment: Thyr oglobulin Antibody measured by [employer] Method[employer] Performed at: [address] [place] [id number] PhD Mahnaz Conklin Performed By: #### 1 [id number] #### [facility] [address] [place] [address] Thyroid Perox.tpo Abon 08-02 TPO Ab Qn [IU]/mL Invalid Interpretation Code 0-34 [facility] Comment on above: Result Comment: Perf ormed at: [facility] [address] [id number] PhD Mahnaz Conklin Performed By: #### 1 [id number] #### [facility] [address] [place] [address] Family Medicine Office/Clini c Noteon 07-29-2023 Family Medicine Office/Clinic Note Chief Complaint irregular heart rate HPI Staff Patient here today for irregular heart rate Onset: 2 weeks ago Characteristics: episodes of rapid heart rate Aggravated by: nothing patient can pinpoint Relieved by: Associated Symptoms:fatigue Health Maintenance: Colonoscopy: 07/21/2020 Mammo: Pap: hx hysterectomy, pelvic exam utd Last Labs: 06/21/2023 History of Present Illness Jessica Griffiths is a 37-year-old female presenting today for an irregular heart rate that started 2 weeks ago. She has a fast heart rate. She is unable to pinpoint what causes this. Nodule of left lobe of the thyroid gland The patient reported that on Friday07/16/2023 she had developed swelling on the side of her thyroid. The swelling radiated up her neck, into her jaw, and into her ear. The patient reported undergoing a fine needle aspiration biopsy on 07/14/2023. Dr. Funes, radiologist, ordered the aspiration. The patient did follow up with Dr. Funes, radiologist, on 07/16/2023. The patient mentioned that her next appointment with Dr. Puente is scheduled for 08/04/2023. The patient also added that the results came back inconclusive, indicating that they were sufficient and benign. Palpitations The patient mentioned experiencing extreme fatigue and getting easily winded even with simple activities like walking. The patient's heart rate is 86 bpm today. The patient reports fluctuations in her heart rate, with sudden increases and decreases. She will then develop a hard heartbeat. The patient experiences coughing episodes when her heart rat is irregular. The patient has had atrial fibrillation in the past. The patient is not currently taking any medication for this. The patient did have an EKG on 06/27/2023. The patient did not feel the funny sensation at that time. The patient's hair has been breaking more. The patient's stools have been more frequent and looser. The patient expressed experiencing internal sensations of melting several times during the day. She describes alternating between feeling of extremely cold and then suddenly experiencing a sensation of intense heat. The patient does sweat often. The patient's hands have been shaky. The patient's legs hurt in the morning and around supper time. The patient states her muscles hurt. The patient does experience dizziness and lightheadedness. The patient reports no recent exposure to contrast or use amiodarone Results: NM 24-hour DEXA scan is the same test. The labs show hyper elevated thyroid hormone and decreased TSH but low uptake of the thyroid on radio uptake scan. Review of Systems PHQ Score Initial Depression Screen Score: 5 SCORE Detailed Depression Screen Score: 12 Total Depression Screen Score: 17 Negative except as stated in HPI. Physical Exam Vitals & Measurements HR: 86(Peripheral) BP: 106/70 SpO2: 98% HT: 66 in HT: 168 cm WT: 61.0 kg WT: 134.2 lb BMI: 21.61 General: Alert. Not in acute cardiopulmonary distress. Well hydrated, well developed, well nourished. Mental Status: Awake and Oriented to person, place, time, and situation. Normal affect. Normal mood. Normal interaction. Good eye contact. Head: Normocephalic, atraumatic, the hair is a little thinner. Eyes: Conjunctiva pink. Sclera white. Pupils are equal, round and reactive to light. Extraocular muscles intact. Ear, Nose and Throat: Oropharynx clear, mucous membranes moist. Ears and nose without masses, lesions or deformities. Tympanic membranes clear bilaterally. Trachea midline. Neck: Supple, Full range of motion. Respiratory: Spontaneous non-labored respirations. Symmetric chest expansion. Equal bilateral aeration. Clear to auscultation. No wheezing, rales or rhonchi. Cardiovascular: She has a systolic murmur. No thrills. Regular rate and rhythm, no murmurs, rubs or gallops. Radial pulse 2+ bilaterally. Posterior tibial pulse 2+ bilaterally. Dorsalis pedis pulse 2+ bilaterally. Skin: Warm, not moist, no dry scaling. No rashes or lesions. No petechiae or purpura. No edema. She has no moistness of her skin at this time. Musculoskeletal: No cyanosis or clubbing. No gross deformities. Normal range of motion. Patient has no tremors at this moment Lymphatics: Palpation of neck reveals no swelling or tenderness of neck nodes. Assessment/Plan Patient's vitals are within normal limits. 1. Palpitations (R00.2: Palpitations) I have ordered an EKG in the clinic which had no abnormal findings and the rate slightly elevated at around 85 bpm. I have given her a prescription for her tremors, anxiety, and palpitations. I have given her propranolol low dose at 10 mg but only to take it if her blood pressure is over 110/70 mmHg. Her blood pressure presently was 90/60 mmHg. Repeat was 106/70 mmHg. 2. 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 She had a biopsy, fine needle aspiration done as well and imagi (more content not included)... [facility] Comment on above: Result Comment: Elec tronically Signed By: Paul Bass MD\.br\Date and Time Signed: 07/29/23 18:15 EST\.br\Electronically Co-Signed By: Jaja Alex\.br\Date and Time Co-Signed: 07/24/23 18:17 EST Interdisciplinary Note - Soc zenaida Marina 07-28-2023 Interdisciplinary Note - [employer] Manager This SW made a tc to patient today to discuss her positive depression screen. She states that her anxiety and depression are directly related to the issues she has going on with her thyroid at this time. She denies any need for resources related to these feelings. Patient will be seeing a specialist for her thyroid later this week and is hoping to get answers. ABDOULAYE encouraged her to contact the office should needs arise. SW will remain available. [facility] Ambulatory Visit Summaryon 0 07-24-2023 Ambulatory Visit [...] hormone level, Print Label By Order Location, [id number]\.br\ Echo Transthoracic Complete, 07/24/23, Routine, Order for future visit, Transport Mode: Ambulatory, Reason: Other (please specify), Reason: murmur, Heart murmur, pp_set_radiology_ subspecialty, [facility], [facility]\.br\ Medications\.br\ What How Much When Instructions\.br\ New propranolol (propranolol 10 mg Tab) 1 Tablets By Mouth Once Pickup at [facility]\.br\ Unchanged baclofen (baclofen 10 mg Tab) See [...] if questions or concerns \.br\ Pharmacy Information\.br\ [facility]: [id number] [phone]\.br\ Allergies\.br\ Latex\.br\ Tape (Rash)\.br\ Problems\.br\ Ongoing - [...] for choosing us for your care.\.br\ \.br\ [facility] Ambulatory Visit Summaryon 0 07-18-2023 Ambulatory Visit [...] You smoke (more content not included)... Normal [facility] CHEMISTRYOrdered By: SYSTEM SYSTEM on 07-18-2023 Free T4 [Mass/Vol] 2.22 ng/dL High 0.58 - 1.64 ng/dL Remisol Chem TSH Qn 0.01 m[IU]/L Low 0.34 - 5.60 mcIU/mL Remisol Chem Clipboard Summaryon 07-18-19 24 Clipboard Summary {[id number]}XML Normal [facility] Consent for Treatmenton 06-24 Consent for Treatment [id number]#[id number] Normal [facility] Family Medicine Office/Clini c Noteon 07-18-2023 Family [...] and had a biopsy on Friday at [place], carried out by the radiology department interventional [...] Nonicteric sclera. Oropharynx pink and moist. Adequate cherokee dentition. Anterior neck, there is a fullness [...] the pathology report on her phone from [facility] which indicates benign cellularity although admittedly may [...] Dysphagia, unspecified) (more content not included)... Normal [facility] Comment on above: Result Comment: Elec tronically Signed By: Nancy BARRIENTOS MD\.tarah\Date and Time Signed: 07/18/23 19:02 EST Free T4on 07-18-2023 Free T4 [Mass/Vol] 2.22 ng/dL High 0.58-1.64 [facility] Comment on above: Performed By: #### 1 [id number], 7626931, 726938221, 921937925, 13975367, 2840513 #### [facility] [address] [place] [address] Patient Educationon 07-18-19 Patient Education Endocrinology Hyperthyroidism Hyperthyroidism refers to [...] Follow these instructions at home: ? Take scva-pzd-nbmamml and prescription medicines only as told by [...] Where to find more information ? National [place] of Diabetes and Digestive and Kidney Diseases: [...] as u (more content not included)... Normal [facility] TSHon 07-18-2023 TSH Qn 0.01 m[IU]/L Low 0.34-5.60 [facility] Comment on above: Performed By: #### 1 8536883, 7727409, 401502268, 136974525, 18152570, 1661354 #### [facility] [address] [place] [address] Mata 07-14-2023 L Specimen: BC Received: 07/15/23 Status: DENA Sifuentes Num: [id number] Spec Type: Cytology Subm Dr: MARTA PUENTE MD Tissues: A FNA SLIDES NOPATH (LT THYROID NOD) Procedures: Cyto Int and Re, PAPSTN/5 Age/ Patient Sex Location Account Attending Physician Jessica Griffiths 37/F [facility]ELL [id number] MARTA PUENTE MD SPEC NUM: [id number] RECD: 07/15/23 STATUS: DENA SIFUENTES NUM: [id number] KANCHAN: 07/14/23- SUBM DR: MARTA PUENTE MD ENTERED: 07/15/[address] [facility] [address]: Neno Quiroz SPEC TYPE: Cytology DEPT: ROYER MDADRY ENTERED BY: [id number] RECV BY: [id number] ORDERED: Cyto Int and Re, PAPSTN/5 ORDERED: Cyto Int and Re, PAPSTN/5 Pathological Diagnosis Left thyroid mid lobe nodule, FNA cytology: - Adequate but slightly limited for assessment - The [place] system is category 2: Benign - A [...] slides for microscopic examination.(CC/nh ) -- Specimen: [id number] Received: 07/15/23 Status: ADELEJake Sifuentes Num: [id number] Spec Type: Cytology Subm Dr: MARTA PUENTE MD Tissues: A FNA SLIDES NOPATH (LT THYROID NOD) Procedures: Cyto Int and Re, PAPSTN/5 -- Patient: Jessica Griffiths [id number] (Continued) -- Specimen: [id number]- Received: 07/15/23 (Continued) Signed (signatu re on file) Alfonso Correa MD 07/16/231122 -- Specimen: [id number]- Received: 07/15/23 Status: DEAN Sifuentes Num: [id number] Spec Type: Cytology Subm Dr: MARTA PUENTE MD Tissues: A FNA SLIDES NOPATH (LT THYROID NOD) Procedures: Cyto Int and Re, PAPSTN/5 -- Patient: Jessica Griffiths [id number] (Continued) -- Specimen: [id number] Received: 07/15/23 (Continued) CPT Codes 47494 -- -- Specimen: [id number] Received: 07/15/23-1303 Status: DENA Sifuentes Num: [id number] Spec Type: Cytology Subm Dr: MARTA PUENTE MD Tissues: A FNA SLIDES NOPATH (LT THYROID NOD) Procedures: Cyto Int and Re, PAPSTN/5 -- Patient: Jessica Griffiths [id number] (Continued) -- Signed (signatu re on file) Alfonso Correa MD 07/16/23 1123 [facility] [place] Thyroid Imaging w/ Uptk Angelito ortega 07-09-2023 [place] Thyroid Imaging w/ Uptk Multiple [...] 203.5 Imaging Post Administration (hrs): 24 Normal [facility] Consent for Treatmenton 06-23 Consent for Treatment [id number]#1.00TIFF Normal [facility] Lipid Panelon 07-08-2023 Cholesterol [Mass/Vol] 145 mg/dL Normal 120-200 [facility] Comment on above: Performed By: #### 2 749982 ####[facility] [address] [place] [address] Cholesterol in HDL [Mass/Vol] 62 mg/dL Invalid Interpretation Code [facility] Comment on above: Result Comment: '>= 60 LOW RISK' '<= 40 HIGH RISK' Performed By: #### 2 416624 ####[facility] [address] [place] [address] Cholesterol in LDL [Mass/Vol] 76 mg/dL Normal <=129 [facility] Comment on above: Performed By: #### 2 123528 ####[facility] [address] [place] [address] Cholesterol in VLDL [Mass/Vol] 10 mg/dL Normal 7-40 [facility] Comment on above: Performed By: #### 2 508299 ####[facility] [address] [place] [address] Triglyceride [Mass/Vol] 52 mg/dL Normal <=149 [facility] Comment on above: Performed By: #### 2 636347 ####[facility] [address] [place] [address] UA With Cult Reflexon 2023 Bacteria LM Ql (Urine sed) 1+ /HPF Abnormal Trace [facility] Comment on above: Performed By: #### 1 5601708 ####[facility] [address] [place] [address] Bilirubin Ql (U) Negative Normal Negative [facility] Comment on above: Performed By: #### 1 9002251 ####[address] [address] Clarity (U) CLEAR Normal Clear [facility] Comment on above: Performed By: #### 1 3717166 ####[facility] [address] [place] [address] Color (U) YELLOW Normal Yellow [facility] Comment on above: Performed By: #### 1 1113237 ####[facility] [address] [place] [address] Epithelial cells.squamous LM.HPF (Urine sed) [#/Area] /[HPF] Normal 0-2 [facility] Comment on above: Performed By: #### 1 4343141 ####[facility] [address] [place] [address] Glucose Test strip (U) [Mass/Vol] Negative Normal Negative [facility] Comment on above: Performed By: #### 1 1534175 ####[facility] [address] [place] [address] Hemoglobin Ql (U) Negative Normal Negative [facility] Comment on above: Performed By: #### 1 4767021 ####[facility] [address] [place] [address] Ketones (U) [Mass/Vol] TRACE Abnormal Negative [facility] Comment on above: Performed By: #### 1 7542160 ####[address] [address] [place].plasma/Lithiu m.RBC (Bld) [Mass ratio] 0-3 Normal 0-3 [facility] Comment on above: Performed By: #### 1 6812090 ####[address] [address] Mucus Ql (Urine sed) 2+ Normal [facility] Comment on above: Performed By: #### 1 8922023 ####[address] [address] Nitrite Ql (U) Negative Normal Negative [facility] Comment on above: Performed By: #### 1 1082702 ####[address] [address] pH (U) 6.5 [pH] Invalid Interpretation Code 5.0-9.0 [facility] Comment on above: Performed By: #### 1 2983424 ####[address] [address] Protein (U) [Mass/Vol] Negative Normal Negative [facility] Comment on above: Performed By: #### 1 7450659 ####[address] [address] Specific gravity (U) [Rel density] 1.015 Invalid Interpretation Code 1.005-1.030 [facility] Comment on above: Performed By: #### 1 7350202 ####[address] [address] Type of Urine collection method Clean Catch Normal [facility] Comment on above: Performed By: #### 1 8847823 ####[address] [address] Urobilinogen Qn (U) 0.2 {Dylan'U}/dL Normal 0.0-1.0 [facility] Comment on above: Performed By: #### 1 4900275 ####[facility] [address] [place] [address] WBC Auto Ql (U) Negative Normal Negative [facility] Comment on above: Performed By: #### 1 5755736 ####[facility] [address] [place] [address] WBC LM.HPF (Urine sed) [#/Area] 0-5 Normal 0-5 [facility] Comment on above: Performed By: #### 1 4809537 ####[facility] [address] [place] [address] Insurance Correspondenceon 0 07-01-2023 Insurance Correspondence [id number]#1.00TIFF Normal [facility] Physician Referralon 024 Physician Referral [id number]#1.00TIFF Normal [facility] Consent for Treatmenton Consent for Treatment [id number]#1.00TIFF Normal [facility] US Thyroidon 06-27-2023 US Thyroid Exam [...] MD Transcribed by: YAMINI Technologist: FAISAL [facility] Office/Clini c Noteon 06-24-2023 Family [...] with voice recognition artificial intelligence software, specifically [employer], [employer] and or Anipipo. Substitutions may have occurred due to the inherent limitations of voice recognition and artificial intelligence software. Documentation services were performed after patient or guardian consented to allow [employer] to record this visit. D (more content not included)... Normal [facility] Comment on above: Result Comment: Elec tronically Signed By: Paul Bass MD\.br\Date and Time Signed: 06/24/23 18:25 EST\.br\Electronically Co-Signed By: Jaja Alex\.br\Date and Time Co-Signed: 06/24/23 18:04 EST T3 Freeon 06-22-2023 Free T3 [Mass/Vol] 4.2 pg/mL Invalid Interpretation Code 2.0-4.4 [facility] Comment on above: Result Comment: Perf ormed at: [facility] [address] [id number] PhD Mahnaz Conklin Performed By: #### 2 743570, 5346714, 51997230, 3858186 ####[facility] [address] [address] Auto Diffon 06-21-2023 Basophils/100 WBC (Bld) 0.3 % Normal 0.0-2.0 [facility] Comment on above: Order Comment: Order Added by Discern Expert. Performed By: #### 1 6087874, 5238881, 5594358, 8272762, 0613351 ####[address] [address] Basophils/Leukocytes Auto (Bld) [Pure # fraction] 0.0 E9/L Normal 0.0-0.2 [facility] Comment on above: Order Comment: Order Added by Discern Expert. Performed By: #### 1 9216857, 5061809, 7350586, 0431469, 4031116 ####[address] [address] Eosinophils/100 WBC (Bld) 0.6 % Normal 0.0-8.0 [facility] Comment on above: Order Comment: Order Added by Discern Expert. Performed By: #### 1 9190281, 2198415, 0697796, 0952991, 9471056 ####[address] [address] Eosinophils/Leukocyte s Auto (Bld) [Pure # fraction] 0.0 E9/L Normal 0.0-0.5 [facility] Comment on above: Order Comment: Order Added by Discern Expert. Performed By: #### 1 1214046, 3727030, 0563429, 3380077, 8216355 ####[address] [address] Lymphocytes/100 WBC (Bld) 20.6 % Normal 14.0-50.0 [facility] Comment on above: Order Comment: Order Added by Discern Expert. Performed By: #### 1 7067885, 4645650, 7195553, 4866002, 8676109 ####[address] [address] Lymphocytes/Leukocyte s Auto (Bld) [Pure # fraction] 1.7 E9/L Normal 1.0-4.0 [facility] Comment on above: Order Comment: Order Added by Discern Expert. Performed By: #### 1 2474798, 3561420, 2876631, 5304022, 0263716 ####[facility] [address] [place] [address] Monocytes/100 WBC (Bld) 6.6 % Normal 4.0-14.0 [facility] Comment on above: Order Comment: Order Added by Discern Expert. Performed By: #### 1 9591431, 7195632, 7354492, 8953990, 6517666 ####[address] [place] [address] Monocytes/Leukocytes Auto (Bld) [Pure # fraction] 0.5 E9/L Normal 0.2-1.0 [facility] Comment on above: Order Comment: Order Added by Jay Expert. Performed By: #### 1 9124218, 0890490, 4911577, 1977130, 2153014 ####[address] [address] Neutrophils/100 WBC (Bld) 71.9 % Normal 36.0-75.0 [facility] Comment on above: Order Comment: Order Added by Jay Expert. Performed By: #### 1 7582633, 6290721, 4591968, 6736464, 3163368 ####[address] [place] [address] Neutrophils/Leukocyte s Auto (Bld) [Pure # fraction] 5.8 E9/L Normal 2.0-7.5 [facility] Comment on above: Order Comment: Order Added by Jay Expert. Performed By: #### 1 0884056, 5899262, 2622554, 6393940, 1271953 ####[address] [place] [address] CBC w/ Auto Diffon 3 Erythrocyte distribution width (RBC) [Ratio] 12.6 % Normal 10.9-14.2 [facility] Comment on above: Performed By: #### 1 5026244, 6257957, 0854716, 5771057, 4442280 ####[facility] [address] [place] [address] Hematocrit (Bld) [Volume fraction] 37.8 % Normal 34.0-46.0 [facility] Comment on above: Performed By: #### 1 1647491, 9187767, 0912575, 7144844, 8666877 ####[address] [place] [address] Hemoglobin (Bld) [Mass/Vol] 12.7 g/dL Normal 12.0-16.0 [facility] Comment on above: Performed By: #### 1 7945205, 4483147, 9492985, 2785274, 7377780 ####[place] [address] MCH (RBC) [Entitic mass] 32.2 pg Normal 27.0-34.0 [facility] Comment on above: Performed By: #### 1 9034467, 2287241, 8718018, 2954468, 9497474 ####[address] [address] MCHC (RBC) [Mass/Vol] 33.8 g/dL Normal 31.4-36.0 [facility] Comment on above: Performed By: #### 1 8438594, 8769956, 6382269, 7189252, 9227983 ####[address] [address] MCV (RBC) [Entitic vol] 95.5 fL Normal 80.0-100.0 [facility] Comment on above: Performed By: #### 1 6458283, 7135818, 7765949, 6372126, 0201273 ####[address] [place] [address] Platelet mean volume (Bld) [Entitic vol] 8.5 fL Normal 6.4-10.8 [facility] Comment on above: Performed By: #### 1 9557031, 9781591, 2208018, 1070780, 8685963 ####[facility] [address] [place] [address] Platelets (Bld) [#/Vol] 303.0 E9/L Normal 150.0-500.0 [facility] Comment on above: Performed By: #### 1 3899357, 9928602, 8827710, 9800635, 7598197 ####[facility] [address] [place] [address] RBC (Bld) [#/Vol] 4.0 E12/L Low 4.3-5.9 [facility] Comment on above: Performed By: #### 1 0219342, 5121824, 9074970, 5434018, 7972764 ####[facility] [address] [place] [address] WBC corrected for nucl RBC Auto (Bld) [#/Vol] 8.1 E9/L Normal 4.0-11.0 [facility] Comment on above: Performed By: #### 1 6147001, 0715896, 4211466, 3091538, 1646158 ####[facility] [address] [place] [address] CHEMISTRYOrdered By: SYSTEM SYSTEM on 06-21-2023 Albumin [...] 06-21-2023 Albumin [Mass/Vol] 3.8 g/dL Normal 3.3-5.0 [facility] Comment on above: Performed By: #### 1 4780540, 9980605, 1735828, 5632725, 0519857 ####[facility] [address] [place] [address] Albumin/Globulin [Mass ratio] 1.3 {ratio} Normal 1.1-2.2 [facility] Comment on above: Performed By: #### 1 5045047, 9049356, 5299385, 1140194, 7149140 ####[facility] [address] [place] [address] Alk Phos 83 Int._Unit/L Normal 21-98 [facility] Comment on above: Performed By: #### 1 4839946, 5817164, 3930210, 3374108, 6573183 ####[facility] [address] [place] [address] ALT 10 Int._Unit/L Normal 6-46 [facility] Comment on above: Performed By: #### 1 1837580, 5120566, 7548083, 1470704, 1810483 ####[facility] [address] [place] [address] Anion gap [Moles/Vol] 10 mmol/L Normal 6-16 [facility] Comment on above: Performed By: #### 1 4928605, 6662747, 9400733, 5102824, 3339684 ####[facility] [address] [place] [address] AST 15 Int._Unit/L Normal 5-43 [facility] Comment on above: Performed By: #### 1 8862771, 7483484, 2753509, 9786657, 3196672 ####[facility] [address] [place] [address] Bili Total 0.5 mg/dL Normal 0.0-1.1 [facility] Comment on above: Performed By: #### 1 8674306, 3962909, 4813480, 9340734, 9913200 ####[facility] [address] [place] [address] BUN/Creat Ratio 22 No Units High 10-20 [facility] Comment on above: Performed By: #### 1 3788814, 4670989, 4948669, 9222742, 7483271 ####[facility] [address] [place] [address] Calcium [Mass/Vol] 8.7 mg/dL Low 8.9-11.1 [facility] Comment on above: Performed By: #### 1 9011324, 1661208, 2835186, 9608218, 9860276 ####[facility] [address] [place] [address] Chloride [Moles/Vol] 103 mmol/L Normal 101-111 [facility] Comment on above: Performed By: #### 1 2902384, 8522982, 4957747, 5667116, 7067933 ####[facility] [address] [place] [address] CO2 [Moles/Vol] 29 mmol/L Normal 21-[address] [facility] Comment on above: Performed By: #### 1 9187137, 0769786, 0139566, 0856644, 4069083 ####[facility] [address] [place] [address] Creatinine [Mass/Vol] 0.6 mg/dL Normal 0.5-1.3 [facility] Comment on above: Performed By: #### 1 1632128, 5580751, 9357691, 5224158, 2212750 ####[facility] [address] [place] [address] Globulin (S) [Mass/Vol] 3.0 g/dL Normal 1.4-4.0 [facility] Comment on above: Performed By: #### 1 5379781, 8748005, 5429284, 8571356, 9679102 ####[facility] [address] [place] [address] Glucose [Mass/Vol] 84 mg/dL Normal 55-199 [facility] Comment on above: Performed By: #### 1 7394928, 3843794, 2537234, 3864334, 4717656 ####[facility] [address] [place] [address] Potassium [Moles/Vol] 3.9 mmol/L Normal 3.5-5.3 [facility] Comment on above: Performed By: #### 1 7484670, 5413098, 0023284, 4595430, 8882428 ####[facility] [address] [place] [address] Protein [Mass/Vol] 6.8 g/dL Normal 6.0-7.8 [facility] Comment on above: Performed By: #### 1 9850110, 7199835, 3107747, 0139106, 8220312 ####[facility] [address] [place] [address] Sodium [Moles/Vol] 138 mmol/L Normal 135-145 [facility] Comment on above: Performed By: #### 1 3248922, 9414899, 6352034, 3432664, 5578401 ####[facility] [address] [place] [address] Urea nitrogen [Mass/Vol] 13 mg/dL Normal 5-21 [facility] Comment on above: Performed By: #### 1 5767258, 2332507, 5565076, 5490822, 8619043 ####[facility] [address] [place] [address] Consent for Treatmenton 05-25 Consent for Treatment [id number]#1.00TIFF Normal [facility] Free T4on 06-21-2023 Free T4 [Mass/Vol] 1.37 ng/dL Normal 0.58-1.64 [facility] Comment on above: Performed By: #### 1 8299053, 9760139, 5923629, 3301221, 9829617 ####[facility] [address] [place] [address] HEMATOLOGYOrdered By: SYSTEM SYSTEM on 06-21-2023 Basophils/100 [...] 5.8 E9/L Normal 2.0 - 7.5 E9/L FT HemeAutoSS HEMATOLOGYOrdered By: Petra Rowan on 06-21-2023 Erythrocyte distribution width (RBC) [Ratio] 12.6 % Normal 10.9 - 14.2 % [facility] HemeAutoSS Hematocrit (Bld) [Volume fraction] 37.8 % Normal 34.0 - 46.0 % [facility] HemeAutoSS Hemoglobin (Bld) [Mass/Vol] 12.7 g/dL Normal 12.0 - 16.0 gm/dL [facility] HemeAutoSS MCH (RBC) [Entitic mass] 32.2 pg [...] E12/L Low 4.3 - 5.9 E12/L [facility] HemeAutoSS WBC corrected for nucl RBC Auto (Bld) [#/Vol] 8.1 E9/L Normal 4.0 - 11.0 E9/L [facility] HemeAutoSS Physician Orderon 06-21-2023 Physician Order [id number]#1.00TIFF Normal [facility] T3 Uptakeon 06-21-2023 T3 Uptake 46.6 % Normal 32.0-48.4 [facility] Comment on above: Performed By: #### 2 397874, 5350641, 53847403, 4084157 ####[facility] [address] [place] [address] T4 Totalon 06-21-2023 T4 18.8 microgram/dL High 4.6-9.1 [facility] Comment on above: Performed By: #### 2 475584, 4816159, 54293042, 7898499 ####[facility] [address] [place] [address] TSHon 06-21-2023 TSH Qn 0.07 m[IU]/L Low 0.34-5.60 [facility] Comment on above: Performed By: #### 2 129983, 1496599, 80784552, 5952005 ####[facility] [address] [place] [address] eGFRon 06-21-2023 GFR/1.73 sq M.predicted among non-blacks MDRD (S/P/Bld) [Vol rate/Area] mL/min/{1.73_m2} Normal >=59 [facility] Comment on above: Order Comment: Order added by Discern Expert. Performed By: #### 1 7841940, 1165821, 5631596, 0858568, 8978281 ####[facility] [address] [place] [address] Family Medicine Office/Clini c Noteon 06-20-2023 Family [...] with voice recognition software. Occasional wrong-word or ?zopte-r-lltc? substitutions may have occurred due to the [...] know she has been working with her SENIOR CENTER DIRECTOR in regards to blood test and lab [...] lost some weight. But again is seeing SENIOR CENTER DIRECTOR in regards to these fluctuations denies any [...] with prim (more content not included)... Normal [facility] Comment on above: Result Comment: [...] weeks. Home care treatment may include: ? Jctp-ulm-veqkijs pain relievers. ? A warm, moist cloth placed over the ear. Severe cases may require a procedure to insert tubes in the ears (tympanostomy tubes) to drain the fluid. Follow these instructions at home: ? Take zznh-kxx-cldxtyg and prescription medicines only as told by [...] provider. Document Revised: 10/04/2021 Document Reviewed: 10/04/2021 [employer] Patient Education ? 2022 [employer] Endocrinology Thyroid Nodule A thyroid nodule [...] hyperthy (more content not included)... Normal [facility] MRI Spine Cervical w/o Contr elvira 06-10-2023 [...] YAMINI Technologist: CAPRI Technical Comments None Normal [facility] Consent for Treatmenton 05-23 Consent for Treatment [id number]#1.00TIFF Normal [facility] RAD - MRI Screening Formon 1 08-10-2022 RAD - MRI Screening Form [id number]#1.00TIFF Normal [facility] Physician Orderon 06-03-2023 Physician Order [id number]#1.00TIFF Normal [facility] Consent for Treatmenton Consent for Treatment [id number]#1.00TIFF Normal [facility] Physician Orderon 04-28-2023 Physician Order [id number]#1.00TIFF Normal [facility] XR Spine Cervical 4 or 5 [...] (Electronic Signature): 04/28/2023 4:28 pm Signed by: Signer Cassius REES Transcribed by: YAMINI Technologist: DIPTI Technical Comments Radiation Dose: Kar in mGy = na DAP = na Normal [facility] EMG Electromyographyon 01-21 EMG Electromyography [id number]#1.00CD:127 Normal [facility] Consultation Noteon 01-16-20 Consultation Note [id number]#1.00CD:127 Normal [facility] Auth for Release of Medical Recordson 12-17-2022 Auth for Release of Medical Records [id number] E2EC#1.00CD:127 Normal [facility] Consultation Noteon 11-16-19 Consultation Note [id number]#1.00CD:127 Normal [facility] EMG Electromyographyon 10-17 EMG Electromyography [id number]#1.00CD:127 Normal [facility] Consultation Noteon 10-08-19 Consultation Note [id number]#1.00CD:127 [facility] CHEMISTRYOrdered By: SYSTEM SYSTEM on 12-03-2021 Free [...] Not detected Invalid Interpretation Code Not Detected [facility] SendOutsSS Comment on above: Result Comment: This nucleic acid amplification test was developed and its performance characteristics determined by [facility]. Nucleic acid amplification tests include RT-PCR and [...] detected) result in this assay. Performed at: [address] [id number] PhD Mahnaz Conklin Vital Signs Date Time Vital Sign Value Performing Clinician Facility 08-04-2023 11:27-0500 Body height 167.6 cm Marta Puente MD Work Phone: [facility] 08-04-2023 11:27-0500 Body mass index (BMI) [Ratio] 21.14 kg/m2 Marta Puente MD Work Phone: [facility] 08-04-2023 11:27-0500 Body weight 59.42 kg Marta Puente MD Work Phone: [facility] 08-04-2023 11:27-0500 Diastolic blood pressure 81 mm[Hg] Marta Puente MD Work Phone: [facility] 08-04-2023 11:27-0500 Systolic blood pressure 111 mm[Hg] Marta Puente MD Work Phone: [facility] 07-24-2023 13:41-0500 Blood Pressure [facility] [place] 07-24-2023 13:41-0500 Diastolic blood pressure 70 mm[Hg] [facility] 07-24-2023 13:41-0500 Heart rate 86 /min Paul [facility] 07-24-2023 13:41-0500 SaO2% (BldA) [Mass fraction] 98 % Paul [facility] 07-24-2023 13:41-0500 Systolic blood pressure 106 mm[Hg] Paul [facility] 07-18-2023 16:16-0500 Blood Pressure Location [facility] 07-18-2023 16:16-0500 Diastolic blood pressure 60 mm[Hg] Christopher BROWN [facility] 07-18-2023 16:16-0500 Heart rate 92 /min Christopher BROWN [facility] 07-18-2023 16:16-0500 Respiratory rate 16 /min Christopher BROWN [facility] 07-18-2023 16:16-0500 SaO2% (BldA) [Mass fraction] 98 % Christopher BROWN [facility] 07-18-2023 16:16-0500 Systolic blood pressure 90 mm[Hg] Christopher BROWN [facility] 06-24-2023 13:49-0500 Blood Pressure Location Paul Gudimella [facility] 06-24-2023 13:49-0500 Diastolic blood pressure 72 mm[Hg] Paul Gudimella [facility] 06-24-2023 13:49-0500 Heart rate 89 /min Paul Gudimella [facility] 06-24-2023 13:49-0500 SaO2% (BldA) [Mass fraction] 97 % Paul Gudimella [facility] 06-24-2023 13:49-0500 Systolic blood pressure 98 mm[Hg] Paul Gudimella [facility] 06-20-2023 18:43-0500 Blood Pressure Location Filiberto Manuelpsey [facility] 06-20-2023 18:43-0500 Body temperature 98.06 [degF] Filiberto Manuelpsey [facility] 06-20-2023 18:43-0500 Diastolic blood pressure 76 mm[Hg] Filiberto Manuelpsey [facility] 06-20-2023 18:43-0500 Heart rate 96 /min Filiberto Cramer [facility] 06-20-2023 18:43-0500 SaO2% (BldA) [Mass fraction] 98 % Filiberto Cramer [facility] 06-20-2023 18:43-0500 Systolic blood pressure 122 mm[Hg] Filiberto Manuelpsey [facility] 12-28-2021 11:20-0400 Body height 167.64 cm Ric Tinoco Other [email or web address] Other 12-28-2021 11:20-0400 Body mass index (BMI) [Ratio] 21.14 kg/m2 Ric Tinoco Other [email or web address] Other 12-28-2021 11:20-0400 Body weight 59.42 kg Ric Tinoco Other [email or web address] Other 04-17-2021 15:40-0400 Body height 167.64 cm Ric Tinoco Other [email or web address] Other 04-17-2021 15:40-0400 Body mass index (BMI) [Ratio] 21.14 kg/m2 Ric Tinoco Other [email or web address] Other 04-17-2021 15:40-0400 Body weight 59.42 kg Ric Tinoco Other [email or web address] Other 05-31-2020 15:50-0500 Body weight 63.96 kg [facility] [place] 05-31-2020 15:50-0500 BP Diastolic 79 mm[Hg] [facility] [place] 05-31-2020 15:50-0500 BP Systolic 107 mm[Hg] Kathy Joongel [facility] [place] 05-31-2020 15:50-0500 Pulse (Heart Rate) 67 /min [facility] [place] 05-31-2020 15:50-0500 Pulse Oximetry 100 % [facility] [place] 05-31-2020 15:50-0500 Respiratory Rate 20 /min [facility] [place] Encounters Encounter Date Encounter Type Care Provider Facility Start: 08-04-2023 Bamboo godwin Carballo is Work Phone: [facility] Start: 08-04-2023 Bamboo flowsheet Marta Carballo is Work Phone: [facility] Start: 08-04-2023 End: 08-04-2023 ambulatory MARTA H TIMMIS Not Available Start: 08-04-2023 End: 08-04-2023 Office outpatient visit 15 minutes Marta Puente MD Work Phone: [facility] Comment on above: Mass of thyroid nadir on (Primary Dx); Hyperthyroidism (CMS/HCC) Start: 07-29-2023 ambulatory [facility] Facil ity:[facility] Start: 07-24-2023 End: 07-25-2023 ambulatory Paul Gudimella Facility:[facility] Start: 07-24-2023 End: 07-24-2023 Patient encounter procedure Paul Gudimella [facility] Start: 07-18-2023 End: 07-19-2023 ambulatory Nancy [facility] Facility:[facility] Start: 07-18-2023 End: 07-18-2023 Patient encounter procedure Nancy BARRIENTOS [facility] Start: 07-18-2023 End: 07-19-2023 ambulatory Paul Gudimella Facility:[facility] Start: 07-18-2023 End: 07-18-2023 Patient encounter procedure Paul Gudimella [facility] Start: 07-14-2023 End: 07-14-2023 ambulatory MD Ruben Barrientos Work Phone: [facility] Work Phone: Start: 07-14-2023 End: 07-14-2023 Departed Referred MD Ruben Barrientos Work Phone: [facility] Start: 07-08-2023 ambulatory Paul Gudimella Facilit y:[facility] Start: 07-04-2023 End: 07-04-2023 ambulatory MARTA PUENTE Not Available Start: 06-27-2023 ambulatory Paul Gudimella Facilit y:[facility] Start: 06-27-2023 End: 06-28-2023 ambulatory Paul Gudimella Facility:[facility] Start: 06-27-2023 End: 06-27-2023 Patient encounter procedure Paul Gudimella [facility] Start: 06-24-2023 End: 06-25-2023 ambulatory Paul Gudimella Facility:[facility] Start: 06-24-2023 End: 06-24-2023 Patient encounter procedure Paul Gudimella [facility] Start: 06-21-2023 End: 06-22-2023 ambulatory Filiberto Cramer Facility:[facility] Start: 06-21-2023 End: 06-21-2023 Patient encounter procedure Filiberto Cramer [facility] Start: 06-20-2023 End: 06-21-2023 ambulatory Filiberto Cramer Facility:[facility] Start: 06-20-2023 End: 06-20-2023 Patient encounter procedure Filiberto Cramer [facility] Start: 06-09-2023 End: 06-10-2023 ambulatory Narendranath Lakshmipathy Facility:[facility] Start: 06-09-2023 End: 06-09-2023 Patient encounter procedure Narendranath Lakshmipathy [facility] Start: 05-07-2023 End: 05-07-2023 ambulatory KRAIG PARK Not Available Start: 04-28-2023 ambulatory Anitra BARRIENTOS Facility: [facility] Start: 04-28-2023 End: 04-29-2023 ambulatory EBER CASTANEDA Facility:[facility] Start: 04-28-2023 End: 04-28-2023 Patient encounter procedure EBER GARCIA LEONEL [facility] Start: 11-05-2022 End: 11-06-2022 ambulatory VOLODYMYRDOROTHEA LEWISAMIRATRAYSERAY . Facility:[facility] Start: 10-22-2022 End: 10-22-[address] DOCTOR ALEJANDRE Facility:[facility] Start: 10-01-2022 End: 10-02-2022 ambulatory ISAURA KELLY . Facility:[facility] Start: 08-27-2022 End: 08-27-2022 ambulatory Ric Tinoco Other [facility] [employer] Other Start: 08-27-2022 Telephone encounter Ric Tinoco [facility] Start: 06-11-2022 End: 06-12-[address] HERB RIVERO . Facility:[facility] Start: 05-28-2022 End: 05-28-[address] HERB RIVERO . Facility:[facility] Start: 03-05-2022 End: 03-06-[address] HERB RIVERO . Facility:[facility] Start: 12-28-2021 End: 12-28-2021 ambulatory Ric Tinoco Other [email or web address] Other Start: 12-28-2021 Office outpatient visit 15 minutes Ric Tinoco [facility] Start: 12-03-2021 End: 12-03-2021 Patient encounter procedure Kraig Park [facility] Start: 11-08-2021 End: 11-09-[address] HERB RIVERO . Facility:[facility] Start: 07-13-2021 End: 10-11-2021 Patient encounter procedure Nancy BARRIENTOS [facility] Start: 04-17-2021 Office outpatient visit 15 minutes Ric Tinoco [facility] Start: 05-31-2020 End: 05-31-2020 Emergency department patient visit [facility] Start: 05-31-2020 End: 05-31-2020 Emergency department patient visit Kathy Ghosh Work Phone: [facility] Comment on above: Chest wall pain (Brunilda tafoya Dx) Start: 12-30-2018 End: 01-07-2019 Patient encounter procedure PROVIDER UNKNOWN Facility:[facility] Procedures Date Procedure Procedure Detail Performing [...] anterior approach Nancy BARRIENTOS Comment on above: [facility] Start: 06-19-2018 Removal of sebaceous cyst Nancy BARRIENTOS Comment on above: Right inner thigh Start: 06-23-2006 Augmentation mammoplasty Nacny BARRIENTOS H/O: hysterectomy S/P laparoscop ic hysterectomy MD Ruben Barrientos Work Phone: laparoscopy 4 Christopher TARAH [facility] Comment on above: 2014 Dr. Chantel narvaez metriosis laparoscopy 5 Christopher BR OWN Comment on above: 2014 Dr. Chantel narvaez metsofíasis lumbar microdisectomy 5 Rex BARRIENTOS Comment on above: 10/2017 Dr. Barnes @ [facility] lumbar microdisectomy 6 Rex BARRIENTOS Comment on above: 10/2017 Dr. Barnes @ [facility] TVH 6 Nancy CHIN [facility] Comment on above: per Dr. Glez 8 wisdom teeth extracted Ruben BARRIENTOS Plan of Treatment Date Care Activity Detail Author Start: 05-31-2026 Screening for malign ant neoplasm of cervix [facility] Start: 08-04-2023 End: 08-04-2023 Patient encounter procedure 08/04/2023 11:20 AM EST Office Visit [facility] [address] [facility] [address] [place] [address] Marta Puente MD [address] [facility] [address] [place] [address] Arrived [facility] Comment on above: Arrived Start: 02-21-2023 Influenza vaccination Influenza Vacc ine (#1) [facility] Start: 02-22-2020 Influenza vaccination Flu vaccine (# 1) [place] Start: 2005 Screening for malign ant neoplasm of cervix Pap Smear [facility] EKG 12 Lead EKG 12 Lead ECG STAT 05/31/2020 4:01 PM EST [place] Immunizations Immunization Date Immunization Notes Care Provider Fa cility 10-28-2020 COVID-19, mRNA, LNP-S, PF, 30 mcg/0.3 mL dose; Translations: [Pfizer-BioNTech COVID-19 Vaccine] Rosendoeduardo JUAN LUIS [facility] Comment on above: Reason for Medicatio n: Prophylaxis 10-07-2020 COVID-19, mRNA, LNP-S, PF, 30 mcg/0.3 mL dose; Translations: [Pfizer-BioNTech COVID-19 Vaccine] Rosendodeandrasanjeev BARRIENTOS [facility] Comment on above: Reason for Medicatio n: Prophylaxis 04-15-2020 influenza, injectable, quadrivalent, contains preservative Nancy BARRIENTOS [facility] 04-15-2020 influenza virus vaccine, unspecified formulation Marta Puente MD Work Phone: [facility] 03-23-2018 influenza virus vaccine, unspecified formulation Nancy BARRIENTOS [facility] 03-10-2013 tetanus toxoid, reduced diphtheria toxoid, and acellular pertussis vaccine, adsorbed Nancy BARRIENTOS [facility] Comment on above: Reason for Medicatio n: Other (see comment) 10-13-2007 tetanus toxoid, reduced diphtheria toxoid, and acellular pertussis vaccine, adsorbed Filiberto Cramer [facility] 10-24-1999 hepatitis A and hepatitis B vaccine Filiberto Cramer [facility] 01-25-1998 measles, mumps and rubella virus vaccine Filiberto Cramer [facility] NEGATED: Highlighted row has not occurred!07-18-2023 influenza virus vaccine, unspecified formulation Nancy BARRIENTOS [facility] NEGATED: Highlighted row has not occurred!06-20-2023 influenza virus vaccine, unspecified formulation Filiberto Cramer [facility] Payers Date Payer Category Payer Self-pay [id number] 2022 Medicaid [place] [id number] 2022-Present [address] [place] [address] [id number] 2022 Medicaid [id number] 2006 Private Health Insurance [id number] 1984 Unknown [id number] 2.16.840.1.209455.3.579.2.6 47 1984 Unknown [id number] 2.16.840.1.290442.3.579.2.1 74 1984 Unknown [id number] 2.16.840.1.028253.3.579.2.5 93 1984 Unknown [id number] 2.16.840.1.668048.3.579.2.5 93 1984 Unknown [id number] 2.16.840.1.455709.3.579.2.5 93 1984 Unknown [id number] 2.16.840.1.728293.3.579.2.5 93 1984 Unknown [id number] 2.16.840.1.613266.3.579.2.5 93 1984 Unknown [id number] 2.16.840.1.755662.3.579.2.5 93 1984 Unknown [id number] 2.16.840.1.939783.3.579.2.5 93 1984 Unknown [id number] 2.16.840.1.779649.3.579.2.1 259 1984 Unknown [id number] 2.16.840.1.931052.3.579.2.1 259 1984 Unknown [id number] 2.16.840.1.716225.3.579.2.1 259 1984 Unknown [id number] 2.16.840.1.149984.3.579.2.7 27 1984 Unknown [id number] 2.16.840.1.431632.3.579.2.7 27 1984 Unknown [id number] 2.16.840.1.809099.3.579.2.7 27 1984 Unknown [id number] 2.16.840.1.502781.3.579.2.7 27 1984 Unknown [id number] 2.16.840.1.071583.3.579.2.7 27 1984 Unknown [id number] 2.16.840.1.872942.3.579.2.7 27 1984 Unknown [id number] 2.16.840.1.380248.3.579.2.7 27 1984 Unknown [id number] 2.16.840.1.509832.3.579.2.7 27 1984 Unknown [id number] 2.16.840.1.277431.3.579.2.7 27 1984 Unknown [id number] 2.16.840.1.060568.3.579.2.7 27 1984 Unknown [id number] 2.16.840.1.135243.3.579.2.7 27 1984 Unknown [id number] 2.16.840.1.925317.3.579.2.7 27 1984 Unknown [id number] 2.16.840.1.762054.3.579.2.7 27 1959 Private Health Insurance [id number] 1.2.840.325441.1.13.239.2.7 .3.214451.315 Unknown [id number] 2.16.840.1.304037.3.579.2.5 31 Social History Date Type Detail Facility Start: 05-31-2020 End: 05-06-2023 Tobacco smoking status FLIS Never smoker [place] Start: 05-31-2020 End: 05-06-2023 Tobacco use and exposure Never used [place] Sex Assigned At Not on file [place] Exposure to SARS-CoV -2 (event) Not sure [place] Tobacco smoking status Never [facility] Start: 07-03-2023 End: 07-04-2023 Sex Assigned At Female [email or web address] Other Start: 1985 Sex Assigned At Female [facility] Start: 07-31-2023 End: 08-04-2023 Alcohol intake Ex-drinker (finding) [facility] Start: 07-03-2023 End: 07-04-2023 History of Social function [facility] How often to you hav e a drink containing alcohol? 2-3 time sa week [facility] How many standard drinks containing alcohol do you have on a typical day? 1 or 2 [facility] How often do you hav e 6 or more drinks on 1 occasion? Never [facility] Start: 07-03-2023 Alcohol Comment caffeine intake: 1-2 cups per day coffee [facility] Start: 05-06-2023 Gender identity Identifies as female gender (finding) [facility] Start: 05-06-2023 Sexual orientation Heterosexual (finding) [facility] Medical Equipment Procedure Code Equipment Code Equipment Origin al Text Equipment Identifier Dates Anterior lumbar interbody fusion (ALIF) STRATOFUSE [id number] FDA Start: 12-06-2019 Anterior lumbar interbody fusion (ALIF) Orthopaedic bone screw, non-bioabsorbable, non-sterile [id number] FDA Start: 12-06-2019 Anterior lumbar interbody fusion (ALIF) Orthopaedic bone screw, non-bioabsorbable, non-sterile +[id number] FDA Start: 12-06-2019 Anterior lumbar interbody fusion (ALIF) Bone-screw internal spinal fixation system, non-sterile +[id number] FDA Start: 12-06-2019 Anterior lumbar interbody fusion (ALIF) Bone-screw internal spinal fixation system, non-sterile +[id number] FDA Start: 12-06-2019 Anterior lumbar interbody fusion (ALIF) Spinal fusion graft kit [id number] FDA Start: 12-06-2019 Anterior lumbar interbody fusion (ALIF) Spinal bone screw, non-bioabsorbable ()[id number] FDA Start: 12-06-2019 Anterior lumbar interbody fusion (ALIF) Metallic spinal fusion cage, non-sterile ()[id number] FDA Start: 12-06-2019 Anterior lumbar interbody fusion (ALIF) Bone-screw internal spinal fixation system, non-sterile +[id number] FDA Start: 12-06-2019 Functional Status Date Assessment Result Facility 07-24-2023 Functional Status N/A [facility] 07-18-2023 Functional Status N/A [facility] 06-24-2023 Functional Status N/A [facility] [place] 06-20-2023 Functional Status N/A [facility] Care Clinical Notes 04-17-2021 to 08-04-2023 Marta Puente MD - 08/04/2023 11:20 AM ESTLaboratoryRadiologyLaboratoryLaboratory Note Date & Type Note Facility 08-04-2023 History of Present illness Narrative Subjective Patient ID: Jessica Griffiths is a 37 y.o. female who presents for Thyroid Nodule (Follow up biopsy 07/14/23). Pt saw Dr Mcghee and was started on methimazole. Getting repeat labs in 4 weeks. Thyroid FNA benign. Repeat TFTs c/w hyperthyroidism and anti-thyroid Ab elevated. No hot nodule on thyroid scan Review of Systems All other systems reviewed and are negative. Family History Problem Relation Name Age of Onset Breast cancer Maternal Grandmother Gerri Cancer Maternal Grandmother Gerri Colon cancer Maternal Grandfather Yoav Cancer Maternal Grandfather Yoav Migraines Paternal Grandmother Deanna Active Ambulatory Problems Diagnosis Date Noted Mass of thyroid region 07/04/2023 Hyperthyroidism (CMS/HCC) 07/04/2023 Chronic pharyngitis 07/04/2023 Resolved Ambulatory Problems Diagnosis Date Noted No Resolved Ambulatory Problems Past Medical History: Diagnosis Date Dizziness 05/15 Endometriosis Had in the past Fatigue 05/15 H/O breast augmentation 2006 Hormone disorder Unknown Menopause ovarian failure 2021 Migraine (CMS/HCC) 2016 Urinary tract infection Had in the past Past Surgical History: Procedure Laterality Date ABDOMINAL SURGERY 2020 back surgery ADENOIDECTOMY COSMETIC SURGERY FEMINIZING AUGMENTATION MAMMOPLASTY FNA W IMAGING GUIDANCE 07/14/2023 thyroid FNA HYSTERECTOMY LAV, BSO-2018 OTHER SURGICAL HISTORY Breast implant replacement OTHER SURGICAL HISTORY Micro discectomy PELVIC LAPAROSCOPY TONSILLECTOMY Allergies Allergen Reactions Latex Rash Latex gloves. Wound Dressing Adhesive Rash Rash from bandaids and tape. Current Outpatient Medications on File Prior to Visit Medication Sig Dispense Refill Aimovig 140 MG/ML injection INJECT 1 SYRINGE SUBCUTANEOUSLY ONCE EVERY MONTH baclofen (Lioresal) 10 MG tablet TAKE 1/2 TO 1 (ONE-HALF TO ONE) TABLET BY MOUTH TWICE DAILY estradiol (Estrace) 2 MG tablet Take 1 tablet (2 mg) by mouth in the morning. 30 tablet 11 gabapentin (Neurontin) 600 MG tablet 600 mg. methIMAzole (Tapazole) 10 MG tablet Take 10 mg by mouth OXcarbazepine (Trileptal) 300 MG tablet TAKE 1/2 (ONE-HALF) TABLET BY MOUTH IN THE MORNING AND 1 TO 2 TABLETS AT BEDTIME oxybutynin XL (Ditropan-XL) 5 MG 24 hr tablet Take 5 mg by mouth in the morning. predniSONE (Deltasone) 20 MG tablet Take 20 mg by mouth in the morning. X 14 days. tiZANidine (Zanaflex) 4 MG tablet TAKE 1/2 TO 1 (ONE-HALF TO ONE) TABLET BY MOUTH ONCE DAILY AT BEDTIME traMADol (Ultram) 50 MG tablet TAKE 1 TABLET BY MOUTH THREE TIMES DAILY NEEDED. MUST LAST 30 DAYS. valACYclovir (Valtrex) 1 g tablet Take 1,000 mg by mouth in the morning and 1,000 mg before bedtime. No current facility-administered medications on file prior to visit. Objective Last Recorded Vitals Vitals: 08/04/23 1127 BP: 111/81 ENT Physical Exam Constitutional Appearance: patient appears well-developed, well-nourished and well-groomed, Communication/Voice: communication appropriate for developmental age; vocal quality normal; Assessment/Plan Diagnoses and all orders for this visit: Mass of thyroid region Very reassuring FNA. Start periodic US starting in 5 mo Hyperthyroidism (CMS/HCC) Management per Dr Mcghee documented in this encounter [facility] 07-24-2023 Evaluation + Plan note Future Scheduled TestsLab Miscellaneous-LC 07/24/23Echo Transthoracic Complete 07/24/23 [facility] [place] 07-18-2023 Evaluation + Plan note Diagnostic Tests PendingT3 Reverse, Serum 07/18/23Thyroid Perox.tpo Ab 07/18/23TgAb+Thyroglobulin,NIGEL or KELVIN 07/18/23 [facility] 07-18-2023 Hospital Discharge instructions Patient Education 07/18/2023 [...] surgery. Follow these instructions at home: Take fpex-esy-jphxqgb and prescription medicines only as told by [...] condition. Where to find more information National [place] of Diabetes and Digestive and Kidney Diseases: [...] provider. Document Revised: 08/02/2022 Document Reviewed: 08/02/2022 Elsevier Patient Education 2022 [employer] Follow Up Care 07/18/2023 07:34:13 With:Nancy BARRINETOS MD, FAM Address: When: only if needed [facility] 06-21-2023 Evaluation + Plan note Diagnostic Tests PendingT3 Free 06/21/23 Future Scheduled TestsCBC w/ Auto Diff 06/20/23Comprehensive Metabolic Panel 06/20/23Free T4 06/20/23 [facility] 06-20-2023 Hospital Discharge instructions Patient Education 06/20/2023 [...] few weeks. Home care treatment may include: Sirx-mwm-wdrzhyc pain relievers. A warm, moist cloth placed over the ear. Severe cases may require a procedure to insert tubes in the ears (tympanostomy tubes) to drain the fluid. Follow these instructions at home: Take bdkv-sbd-vsriydo and prescription medicines only as told by [...] provider. Document Revised: 10/04/2021 Document Reviewed: 10/04/2021 [employer] Patient Education 2022 [employer] 06/20/2023 19:03:16 Thyroid Nodule Thyroid Nodule A [...] in your thyroid nodule or nodules. Take nmtd-jgo-btyokpd and prescription medicines only as told by [...] provider. Document Revised: 04/22/2022 Document Reviewed: 04/22/2022 [employer] Patient Education 2022 [employer] Follow Up Care 06/20/2023 07:23:01 With:Nancy BARRIENTOS MD, FAM Address: [address] [place], [place] [id number]- When: Unknown [facility] 06-20-2023 Evaluation + Plan note Future Scheduled TestsT4 Total 06/20/23CBC w/ Auto Diff 06/20/23Comprehensive Metabolic Panel 06/20/23T3 Free 06/20/23T3 Uptake 06/20/23Thyroid Stimulating Hormone 06/20/23Free T4 06/20/23 [facility] 10-01-2022 Note CONSULTATION CONSULTATION [...] our patients to inform us about any qqgm-gfv-ltkxpff medications or herbal remedies/nutritional supplements/alternative remedies. 2. [...] options with their primary care provider. [facility] 06-11-2022 Note CONSULTATION CONSULTATION DATE: 06/11/2022 CHIEF [...] and concurs. CC: Nancy Barrientos M.D. [facility] 03-05-2022 Note PAIN MANAGEMENT CONS ULTATION CONSULTATION [...] along this region. CC: Dr. Barrientos [facility] 12-28-2021 Evaluation note Encounter Date Diagnosis Assessment [...] follow her up on an as-needed basis [email or web address] Other 06-13-2022 Evaluation + Plan note Diagnostic Tests Pending * Insulin Level Total 12/03/21 * T3 Free 12/03/21 * FSH Level 12/03/21 Future Scheduled Tests Laboratory* COVID-19 ([facility]) 07/13/21 [facility]05-19-2022 NoteCONSULTATION CONSULTATION DATE: 11/08/2021 This is a [...] does plan on seeing Dr. Damon in [facility]. Activities that aggravate her neck are twisting, [...] of care and would like to proceed. [facility] Signed and Approved by: ISAURA KELLY . 11/12/2021 15:05:00[facility]01-21-2022 Evaluation + Plan note Future Scheduled Tests Laboratory* COVID-19 ([facility]) 07/13/21 [facility]10-26-2021 Evaluation note* Encounter Date Diagnosis Assessment Notes Treatment Notes Treatment Clinical Notes Mar, Spondylolisthesis at L5-S1 level (ICD-10 - M43.17) I answered a number of questions for the patient. I think a transforaminal injection may be beneficial. I also believe that she could potentially benefit from a dorsal column stimulator. She is seeing a another neurologist at [facility] and I am interested in what medication changes are made. I will see the patient again in 3 months and review this with her. I looked at the picture of the spine today she has good bone formation and her FDC hardware is intact. Because of the persistent [...] region with neurogenic claudication (ICD-10 - M48.062) [email or web address] Other evaluation + Plan note Future Appointments Appointment Date:06/27/2023 07:30:00 AM Scheduled Provider: Location:.[facility] Appointment Type:US Thyroid/Neck/Chest () Appointment Date:06/27/2023 08:00:00 AM Scheduled Provider: Location:.CARDIO Appointment Type:CV EKG () Appointment Date:07/29/2023 12:40:00 PM Scheduled Provider:Nancy BARRIENTOS MD Location:[facility] Appointment Type: Open Future Scheduled Tests Laboratory* UA With Cult Reflex 06/24/23 * CBC w/ Auto Diff 06/20/23 * Comprehensive Metabolic Panel 06/20/23 * Lipid Panel 06/24/23 * Free T4 06/20/23 Radiology* US Thyroid 06/27/23 [facility] [place] Evaluation + Plan note Future Appointments Appointment Date:07/29/2023 12:40:00 PM Scheduled Provider:Nancy BARRIENTOS MD Location:[facility] Po Appointment Type: Open Future Scheduled Tests Laboratory* UA With Cult Reflex 06/24/23 * CBC w/ Auto Diff 06/20/23 * Comprehensive Metabolic Panel 06/20/23 * Lipid Panel 06/24/23 * Free T4 06/20/23 Radiology* US FNA w/ Guidance, first lesion 06/27/23 * NM Thyroid Imaging w/ Uptk Multiple 06/27/23 [facility]No Information[facility] Gig[facility] Other evaluation noteNo assessment information available [facility] Work Phone: Evaluation note* Diagnosis Mass of thyroid region- Primary Hyperthyroidism (CMS/HCC) Thyrotoxicosis without mention of goiter or other cause, without mention of thyrotoxic crisis or storm documented in this encounter [facility] Narrative - Reported* Type Description Date [...] Micro discectomy L5-S1 10/2017 Surgical History ALIF-Doctor Tinoco Hospitalization History see surgical hx [facility] [employer] Other Hospital course Narrative No data available for this section [facility] Dis[facility] instructions No data available for this section [facility] HealthcareProgress note No data available for this section [facility] Summary Purpose Family History No Family History Records Found Relationship Condition Age at Onset Recorded Date/T rody Not Specified Healthy female adult Unknown father Osteoarthritis Unknown Degeneration of intervertebral disc Unkno wn Advance Directives No Advanced Directives Records FoundDocuments on File Type Date Recorded 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 * Chest Pain: Musculoskeletal (Uzbek) documented in this encounter Assessments Diagnosis Chest wall pain Painful respiration Reason for Referral Reason Evaluate and Treat C onsider for Dorsal Column Stimulator Diagnosis 1 Spondylolisthesis at L5-S1 level (M43.17) Referral Organization [facility] Ne urosurgery Referring Provider First Name Ric Referring Provider Last Name Tinoco Referring Provider Specialty Neurologica l Surgery Referred Organization Unknown Facility Referred Provider KristopherMansoor M Referred Provider Specialty Pain Medicin e Referral Priority Routine Additional Source Comments INFORMATION SOURCE (unrecogn ized section and content) DATE CREATED AUTHOR 01/14/2020 [facility] DATE CREATED AUTHOR AUTHOR'S ORGANIZ ATION 06/01/2020 [facility] DATE CREATED AUTHOR AUTHOR'S ORGANIZ ATION 11/06/2022 [facility] DATE CREATED AUTHOR AUTHOR'S ORGANIZ ATION 08/01/2023 [facility] DATE CREATED AUTHOR AUTHOR'S ORGANIZ ATION 08/05/2023 [facility] EPIC DATE CREATED AUTHOR AUTHOR'S ORGANIZ ATION 08/13/2023 [facility] Reason for Visit (unrecogniz ed section and content) Reason Comments Chest Pain intermittent chest p ain under left breast started last night, few episodes today, lasting approx 30 seconds, reports feeling more tired today Reason Comments Thyroid Nodule Follow up biopsy 06/24 08/16 Care Team (unrecognized sect ion and content) Team Status: Active Member Role Status Dates Ruben Barrientos MD Primary Care Provider Active Team Status: Inactive Member Role Status Dates Ruben Barrientos MD Primary Care Provider Active Start: July 14, 2023 End: July 14, 2023 Marta Puente Jr, MD Attending Provider Active Start: July 14, 2023 End: July 14, 2023 Drafter Geological Relationship Specialty Start Date End Date Nancy Barrientos MD [address] [place] [id number] PCP - General 05/07/23 Drafter Geological Relationship Specialty Start Date End Date Nancy Barrientos MD [address] [place] [id number] PCP - General 11/15/23 Goals (unrecognized section and content) Goals may [...] BE BASED ON THE PRIMARY CLINICAL RECORDS. [facility] [employer] [facility]. provides no warranty or guarantee of the accuracy or completeness of information in this document.
--- NOTE | 2023-09-03 10:33 | PM.CN ---
Consult Note: HPI Data of Consult Patient: known to practice within the last 3 years Requesting Physician: Randi Potts NP Primary Care Provider: Non-Staff Physician, MD Consult Narrative Reason for consult: F/u Narrative: Emily Valiente a pleasant 38 year old female presents for evaluation and management of chronic pain. Today neck pain is 4/10 and experiencing numbness/tingling/weakness in right arm. Pain increases with bending and activity. Patient reporting increase in right trapezius muscle pain and tightness, previously had significant benefit to TPI with Dr Thompson and would like to discuss repeating. Patient finds benefit with current medication regimen, no side effects. Active in HEP and aquatherapy. cc:: CC: Randi Potts NP Review of Systems ROS Status of ROS 10 or more systems reviewed and unremarkable except as noted in history and below Musculoskeletal Reports: back pain and neck pain [facility] Medical History (Updated 07/11/23 @ 08:42 by Consuelo Sweet) Migraines ?G43.909 - Migraine, unspecified, not intractable, without status migrainosus (ICD-10) Chronic pharyngitis ?J31.2 - Chronic pharyngitis (ICD-10) Endometriosis determined by laparoscopy ?N80.9 - Endometriosis, unspecified (ICD-10) Hyperthyroidism ?E05.90 - Thyrotoxicosis, unspecified without thyrotoxic crisis or storm (ICD-10) Neck pain ?M54.2 - Cervicalgia (ICD-10) Low back pain ?M54.50 - Low back pain, unspecified (ICD-10) Numbness and tingling ?R20.0 - Anesthesia of skin (ICD-10) ?R20.2 - Paresthesia of skin (ICD-10) Surgical History S/P fine needle aspiration ?Z98.890 - Other specified postprocedural states (ICD-10) History of lumbar fusion ?Z98.1 - Arthrodesis status (ICD-10) H/O breast implant ?Z98.82 - Breast implant status (ICD-10) Hx of breast implants, bilateral ?Z98.82 - Breast implant status (ICD-10) Status post lumbar surgery ?Z98.890 - Other specified postprocedural states (ICD-10) H/O: hysterectomy ?Z90.710 - Acquired absence of both cervix and uterus (ICD-10) S/P T&A (status post tonsillectomy and adenoidectomy) ?Z90.89 - Acquired absence of other organs (ICD-10) Hx of laparoscopy ?Z98.890 - Other specified postprocedural states (ICD-10) H/O breast augmentation ?Z98.82 - Breast implant status (ICD-10) Meds Home Medications and Allergies Home Medications Medication Instructions Recorded Confirmed Type baclofen 10 mg tablet 10 mg PO BID 12/04/22 07/14/23 History erenumab-aooe 70 mg/mL 140 mg subcut .MONTH 12/04/22 07/14/23 History subcutaneous auto-injector (Aimovig Autoinjector) oxcarbazepine 300 mg tablet 300 mg PO .HS 12/04/22 07/14/23 History tizanidine 4 mg tablet 4 mg PO .HS 12/04/22 07/14/23 History gabapentin 600 mg tablet 600 mg PO BEDTIME #30 tabs 04/17/23 07/14/23 Rx amoxicillin 875 mg-potassium 1 tab PO Q12H 07/11/23 07/14/23 History clavulanate 125 mg tablet biotin 1 tab PO DAILY 07/11/23 07/14/23 History collagen liquid 0.5 drp PO DAILY 07/11/23 07/14/23 History estradiol 2 mg tablet 2 mg PO DAILY 07/11/23 07/14/23 History gabapentin 100 mg capsule 150 mg PO .every morning 07/11/23 07/14/23 History oxcarbazepine 150 mg tablet 150 mg PO DAILY 07/11/23 07/14/23 History tramadol 50 mg tablet 50 mg PO TID PRN pain 07/14/23 07/14/23 History tramadol 50 mg tablet 50 mg PO TID PRN pain #90 tabs 07/23/23 Rx Allergies Allergy/AdvReac Type Severity Reaction Status Date / Time adhesive Allergy Rash Verified 07/14/23 13:50 latex Allergy Rash Uncoded 07/14/23 13:50 Exam Constitutional Documenting provider has reviewed patient's vital signs: yes Common normals: no apparent distress, oriented x3, healthy appearing, alert and well nourished General appearance: cooperative HENMT Common normals: normocephalic, hearing grossly normal bilaterally and moist oral mucous membranes Head and scalp: normocephalic Eye Common normals: PERRL Pupil: PERRL Neck & C-Spine Common normals: full ROM General: normal visual inspection Cervical spine: paracervical muscle tenderness and trapezius muscle tenderness Other: right arm intermittent radiculopathy and numbness tingling RUE 4/5 strength 4/5 in LUE Chest Common normals: inspection of chest normal Respiratory Common normals: normal respiratory effort, no retractions and no use of accessory muscles Back & Pelvis Lumbar spine/lower back: ROM limited, pain with ROM and straight leg raise negative bilaterally Extremity Common normals: normal to inspection and full ROM Other: negative bilateral fabers, gaenslens, thigh thrust Neuro Common normals: oriented x3, CN's II-XII intact bilaterally, moves all extremities, no focal motor deficits, no sensory deficits noted and deep tendon reflexes 2+ bilaterally Sensorium/orientation: alert Motor exam: strength 5/5 throughout and no movement abnormalities noted Psych Common normals: mental status grossly normal, thought process normal, cooperative, affect normal, speech normal and activity/motor behavior normal Speech: normal speech Thought process: normal thought process Results Additional Findings Additional findings: If on a controlled substance or opioids, I have checked an [place] report on this patient today and there are no aberrancies noted in the prescribing history.?? A drug screen was completed and reviewed within the last year, and if there has not been a drug screen completed we ordered one today to monitor higher risk, state monitored pain medication use. As part of providing excellent, safe, comprehensive care, the following was completed at our patient's visit: Reviewed patients? medication reconciliation. An annual review has been completed for the following: screening for depression, screening for tobacco use, and screening for unhealthy alcohol use. For concerning screenings had a discussion with the patient, provided patient education, and recommended follow-up with primary care provider when appropriate. If patient noted with a risk of falling, they received education on strength, gait, and balance training to prevent future risk of falling. Assessment and Plan Assessment and Plan (1) Cervical paraspinal muscle spasm: (2) Cervical spondylosis: (3) Cervical radiculopathy: (4) Muscle spasm: (5) Lumbar radiculopathy: Plan right trapezius TPI with Dr Thompson continue current medication regimen continue aquatherapy and HEP f/u with Dr Thompson
== END 2023-09-03 10:06 | disposition home or self-care (01) ==
LOC: PM 10:06
PROVIDERS: Visit Provider Nurse Practitioner
DX: M62.838 Other muscle spasm (principal); M47.812 Spondylosis without myelopathy or radiculopathy, cervical region; M54.12 Radiculopathy, cervical region; M54.16 Radiculopathy, lumbar region
CPT/HCPCS: G0463

== ENCOUNTER 2023-09-23 12:25 | Outpatient (OUT) | payer MEDICAID, SELFPAY ==
--- NOTE | 2023-09-23 | CONS_ITS ---
PROCEDURE DATE: 09/23/2023 PROCEDURE: Trigger point injection right trapezius at the C3 level. PREOPERATIVE DIAGNOSIS: 1. Pain secondary to myofascial spasm of the right trapezius. 2. Cervical spondylosis. POSTOPERATIVE DIAGNOSIS: 1. Pain secondary to myofascial spasm of the right trapezius. 2. Cervical spondylosis. SOLUTION USED FOR INJECTION: 2 mL of 2% lidocaine, 2 mL of 0.25% Marcaine and 10 mg of Kenalog, a total of 5 mL, and 3.5 mL used for injection at the site. IMMEDIATE COMPLICATIONS: None. PROCEDURE: After informed consent was obtained from the patient, placed in the sitting position. Skin overlying the area was prepped with alcohol. A 25 gauge, 1 ?? needle was inserted into the right trapezius at the level of C4. Needle tip was advanced until there was a mild twitch response. At which point we injected 3.5 mL of solution. No indication of intravascular or intraneural needle tip placement or injection. Patient reports reduction in pain post procedurally. She will be discharged after meeting criteria. PATRICK
--- OUTSIDE RECORDS SUMMARY | 2023-09-23 12:49 | XMS_ITS | CCD ---
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 Name Role Phone UNKNOWN, PROVIDER Admitting Unavailable UNKNOWN, PROVIDER Attending Unavailable UNKNOWN, PHYSICIAN Referring Unavailable UNKNOWN, PHYSICIAN Primary Care Unavailable Nancy Barrientos Primary Care Provider KATHY GHOSH Attending Unavailable NANCY BARRIENTOS Primary Care Unavailable Nancy BARRIENTOS Primary Care Physician [phone] Ric Tinoco Unavailable JOSEFA ., DR HERB Melgar Attending Unavailable RIVERO ., DR HERB Melgar Admitting Unavailable RIVERO ., DR HERB Melgar Consulting Unavailable MISC, DR MURRIETA Primary Care Unavailable LAKSHMIPATHY ., SHAORNA Consulting Fide vailable MISC, DR MURRIETA Primary [...] DR MURRIETA Primary Care Unavailable LAKSHMIPATHY ., NARENDRANATH Admitting Fide vailable LAKSHMIPATHY ., NARENDGINOATH Attending [...] RIVERO ., DR HERB Melgar Attending Unavailable HILL, DR MURRIETA Primary Care Unavailable JOSEFA ., DR HERB Melgar Consulting Unavailable JOSEFA ., DR HERB Melgar Admitting Unavailable ISAURA JADE Consulting Unavailable MD Ruben Barrientos Primary Care Provider MD Marta Puente Jr Attending Provider Marta Duncan Jr Attending Unavailable Matra Puente Jr Admitting Unavailable Ruben Barrientos Primary Care Unavailable Nancy Barrientos MD Primary Care Provider [phone] MARTA UPENTE Attending Unavailable KALI PAUL Referring Unavailable KRAIG PARK Attending Unavailable MARTA PUENTE Attending Unavailable NANCY BARRIENTOS Referring Unavailable Nancy BARRIENTOS Primary Care Physician MD Kali Paul Attending Unavailable MD Kali Paul Admitting Unavailable MD Kali Paul Referring Unavailable MD Kali Paul Admitting Unavailable MD Kali Paul Referring Unavailable MD Kali Paul Attending Unavailable Filiberto Cramer Attending Unavailable MD Kali Paul Attending Unavailable MD Kali Paul Attending Unavailable MD Kali Paul Attending Unavailable Nancy BARRIENTOS Attending Unavailable Anitra BARRIENTOS Attending Unavailable Nancy BARRIENTOS Attending Unavailable Lakshmipathy, Narendranath Referring Unava ilable Lakshmipathy, Narendranath Attending Unava ilable Lakshmipathy, Narendranath Admitting Unava ilable EBER CASTANEDA Attending Unavailable EBER CASTANEDA Admitting Unavailable Filiberto Cramer Attending Unavailable Filiberto Cramer Admitting Unavailable AMAIRANI JONAS Attending Unavailable AMAIRANI JONAS Admitting Unavailable MD Kali Paul Attending Unavailable MD Kali Paul Admitting Unavailable Allergies Allergy Classification Reported Allergen(s) Allergy Type Date of Onset Reaction(s) Facility (1 source) Adhesive agent; Translations: [Unknown] Propensity to adverse reactions (disorder) 9 [facility] Repository (13 sources) Adhesive Tape; Translations: [Tape] Drug allergy Eruption of skin (disorder) [facility] (20 sources) Latex; Translations: [Latex] Drug allergy 5 Rash [facility] Other (3 sources) adhesive bandages Propensity to adverse reactions rash [facility] Other (1 source) Adhesive agent Drug allergy (disorder) 6 [facility] Repository (1 source) Adhesive agent Drug allergy (disorder) 2 [facility] Repository (1 source) Adhesive Tape Drug allergy (disorder) 0 [facility] Repository (3 sources) Wound Dressing Adhesive Drug [...] Status: Ordered baclofen 10 mg oral tablet (14 sources) gamma-Aminobutyr ic Acid-ergic Agonist Start: 03-23-2023 [...] course, # 28 cap(s), Refills(s) 0, Pharmacy: [facility], 168, cm, 07/11/20 [...] Daily, # 90 tab(s), Refills(s) 1, Pharmacy: [facility], 168, cm, 07/11/20 8:27:00 EST, Height/Length Dosing, 64.1, kg, 07/11/20 8:27:00 EST, Weight Dosing Start Date: 11/23/20 Status: Ordered cyclobenzaprine hydrochloride 10 mg oral tablet (4 sources) Muscle Relaxant Start: 09-04-2017 End: 12-08-2019 take 10 mg by mouth three times daily Cyclobenzaprine Active 10 MG PO Three times daily December 07, 2019 11:00pm 1 ml erenumab-aooe 140 mg/ml auto-injector (16 sources) Start: 11-30-2019 Aimovig 140 MG/ML injection [...] 0 Active estradiol 2 mg oral tablet (20 sources) Estrogen Start: 05-07-2023 End: 05-06-2024 take [...] nasal route once daily Flonase 0.05 mg/inh [place] 2 spray(s), Nasal, Daily for 7 day(s), 16 gm, Refill(s) 0, each nostril, [facility], 168, cm, 06/20/23 18:45:00 EST, Height/Length Dosing, 58.4, kg, 06/20/23 18:45:00 EST, Weight Dosing Start Date: 06/20/23 Stop Date: 06/27/23 Status: Ordered gabapentin 600 mg oral tablet (20 sources) Anti-epileptic Agent Start: 11-08-2021 gabapentin 600 [...] 11-30-2019 take 1 tablet by jaden th twice daily Lamictal 25 mg Tab 25 mg = 1 tab(s), Oral, BID, # 180 tab(s), Refills(s) 1, Pharmacy: [facility], 168, cm, 07/11/20 8:27:00 EST, Height/Length Dosing, 64.1, kg, 07/11/20 8:27:00 EST, Weight Dosing Start Date: 08/22/20 Status: Ordered loratadine 10 mg oral tablet (3 sources) Start: 02-23-2020 take 1 tablet by mouth once daily loratadine 10 mg Tab 10 mg = 1 tab(s), Oral, Daily, # 90 tab(s), Refills(s) 1, Pharmacy: [facility], 168, cm, 02/23/20 10:40:00 EDT, Height/Length Dosing, 65, kg, 02/23/20 10:40:00 EDT, Weight Dosing Start Date: 02/23/20 Status: Ordered Start: 11-30-2019 take 1 capsule by [facility] once daily loratadine (CLARITIN) 10 [...] Nausea/Vomiting, # 10 tab(s), Refills(s) 0, Pharmacy: [facility], 168, cm, 07/10/20 13:24:00 EST, Height/Length Dosing, 62.1, kg, 07/10/20 13:24:00 EST, Weight Dosing Start Date: 07/10/20 Status: Ordered OXcarbazepine 300 mg oral tablet (19 sources) Anti-epileptic Agent Start: 03-10-2023 take 0.5 [...] Start: 02-22-2020 take 2 tablets by mo [facility] every twelve hours Trileptal 300 MG [...] discomfort, # 60 tab(s), Refills(s) 2, Pharmacy: [facility], 168, cm, 05/26/20 16:32:00 EST, Height/Length Dosing, 64, kg, 05/26/20 16:32:00 EST, Weight Dosing Start Date: 05/26/20 Status: Ordered take 1 tablet by [facility] every twenty-four hours in the morning oxybutynin [...] breakfast, # 30 tab(s), Refills(s) 5, Pharmacy: [facility], 168, cm, 07/11/20 [...] Ordered propranolol hydrochloride 10 mg oral tablet (2 sources) beta-Adrenergic Nat Start: 07-24-2023 take 1 tablet by mouth once propranolol 10 mg Tab 10 mg = 1 tab(s), Oral, Once, # 1 tab(s), Refills(s) 0, Pharmacy: [facility], 168, cm, 07/24/23 [...] breakfast, # 30 tab(s), Refills(s) 5, Pharmacy: [facility], 168, cm, 07/11/20 [...] Status: Ordered tiZANidine 4 mg oral tablet (14 sources) Central alpha-2 Adrenergic Agonist Start: 03-24-2023 [...] Ordered traMADol hydrochloride 50 mg oral tablet (12 sources) Opioid Agonist Start: 03-26-2023 take 1 [...] BID, # 60 tab(s), Refills(s) 2, Pharmacy: [facility], 168, cm, 11/08/21 9:50:00 EDT, Height/Length Dosing, 65.4, kg, 11/08/21 9:50:00 EDT, Weight Dosing Start Date: 01/18/22 Status: Ordered Start: 11-23-2020 take 1 tablet by jaden th twice daily valacyclovir 1 g Tab 1 gram = 1 tab(s), Oral, BID, # 60 tab(s), Refills(s) 2, Pharmacy: [facility], 168, cm, 07/11/20 8:27:00 EST, Height/Length Dosing, 64.1, kg, 07/11/20 8:27:00 EST, Weight Dosing Start Date: 11/23/20 Status: Ordered Start: 11-23-2020 take 1 tablet by jaden th twice daily valacyclovir 1 g Tab 1 gram = 1 tab(s), Oral, BID, # 60 tab(s), Refills(s) 2, Pharmacy: [facility], 168, cm, 07/11/20 8:27:00 EST, Height/Length Dosing, 64.1, kg, 07/11/20 8:27:00 EST, Weight Dosing Start Date: 11/23/20 Status: Ordered Completed/Discontinued Medications Medication Drug Class(es) Dates Sig (Normalized) Sig (Original) acetaminophen 325 mg / HYDROcodone bitartrate 5 mg oral tablet (2 sources) Opioid Agonist Start: 09-12-2017 End: 11-30-2019 take 1 tablet by mouth every four to six hours Hydrocodone-Acetami nophen ([place]) 5-325 mg tablet Discontinued 1 TAB PO EVERY 4-6 HOURS September 12, 2017 November 30, 2019 9:37am Start: 09-04-2017 End: 09-12-2017 take 1 tablet by mouth once daily at bedtime Hydrocodone-Acetaminophen ([place]) 5-325 mg Tablet Discontinued 1 TAB PO [...] Date Documented Da te Episodic/Chronic Cardiac dysrhythmias (3 sources) Palpitations; Translations: [Palpitations] Onset: 4 Episodic Esophageal disorders (20 sources) Gastroesophageal reflux disease; Translations: [Gastroesophageal reflux disease without esophagitis] Onset: 4 02-01-2019 Chronic Headache; including migraine (20 sources) Migraine; Translations: [Migraine variants] 03-31-2020 Chronic Heart valve disorders (3 sources) Heart murmur; Translations: [Cardiac murmur, unspecified] Onset: 4 Episodic Intestinal infection (12 sources) Bacterial overgrowth syndrome 08-07-2020 Episodic Miscellaneous mental health disorders (12 sources) Chronic insomnia 08-17-2019 Chronic Nausea and vomiting (2 sources) Nausea 07-10-2020 Episodic Nonmalignant breast conditions (3 sources) Fibrocystic disease of breast; Translations: [Diffuse cystic mastopathy of right breast] Chronic Nonspecific chest pain (13 sources) Chest wall pain; Translations: [Atypical chest pain] 07-06-2019 Episodic Other acquired deformities (3 sources) Spondylolisthesis L5/S1 level; Translations: [Spondylolisthesis, lumbosacral region] Episodic Other acquired deformities (4 sources) Lumbar spondylolisthesis; Translations: [Spondylolisthesis, lumbar region] 06-04-2023 Episodic Other diseases of bladder and urethra (12 sources) 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 Other female genital disorders (3 sources) Dyspareunia due to non-psychogenic cause in the female; Translations: [Other specified dyspareunia] Chronic Other gastrointestinal disorders (2 sources) Abdominal bloating 07-11-2020 Episodic Other gastrointestinal disorders (20 sources) Alteration in bowel elimination 06-27-2020 Episodic Other gastrointestinal disorders (12 sources) Chronic constipation with overflow 08-07-2020 Episodic Other gastrointestinal disorders (2 sources) Diarrhea 07-10-2020 Episodic Other gastrointestinal disorders (12 sources) Fecal soiling co-occurrent and due to fecal incontinence 06-27-2020 Episodic Other gastrointestinal disorders (2 sources) Incontinence of feces 07-11-2020 Episodic Other gastrointestinal disorders (1 source) Dysphagia; Translations: [Dysphagia, unspecified] Onset: 4 Episodic Other gastrointestinal disorders (4 sources) Swallowing painful 07-18-2023 Episodic Other nervous system disorders (3 sources) Chronic pain; Translations: [Other chronic pain] Chronic Other nervous system disorders (4 sources) Other specified mononeuropathies of right lower limb; Translations: [OTH SPEC MONONEUROPATH RT LOW LIMB] Onset: 3 Chronic Other nervous system disorders (5 sources) Other chronic pain; Translations: [OTHER CHRONIC PAIN] Onset: 2 Chronic Other nervous system disorders (12 sources) Sensory disorder of smell and/or taste 03-31-2020 Episodic Other nutritional; endocrine; and metabolic disorders (12 sources) 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 Other screening for suspected conditions (not mental disorders or infectious disease) (8 sources) Thyroid function tests abnormal; Translations: [Abnormal results of thyroid function studies] Onset: 3 Episodic Other skin disorders (7 sources) Foot callus 11-08-2021 Episodic Other skin disorders (5 sources) Mass of neck; Translations: [Localized swelling, mass and lump, neck] Onset: 4 07-04-2023 Episodic Other upper respiratory disease (7 sources) Allergic rhinitis; Translations: [Allergic rhinitis, unspecified] [...] [Breast implant status] Chronic Residual codes; unclassified (12 sources) Chill 03-31-2020 Episodic Residual codes; unclassified [...] [LOW BACK PAIN, UNSPECIFIED] Onset: 2 Unclassified (6 sources) Patient encounter status 06-24-2023 Urinary tract infections (12 sources) Urinary tract infectious disease 05-26-2020 Episodic Viral infection (12 sources) Herpes simplex 02-01-2019 Episodic Past or [...] with and (suspected) exposure to COVID19] Unclassified (12 sources) None (qualifier value) 12-11-2012 Unclassified (20 sources) Onset: 09-23-2004 Resolved: 03-09-2013 12-29-2014 Comment on above: pi Unclassified (1 source) LOW BACK PAIN, UNSPECIFIED; Translations: [LOW BACK PAIN, UNSPECIFIED] Onset: 06-11-2022 Results Test Name Value Interpretation Reference Range Facil ity T3 Freeon 09-13-2023 Free T3 [Mass/Vol] 1.5 pg/mL Low 2.0-4.4 [facility] Comment on above: Result Comment: Perf ormed at: [facility] [address] [id number] PhD Mahnaz Conklin Performed By: #### 2 321292, 4710365, 7629494, [id number], [id number] ####[facility] [address] [place] [address] Thyrotropin Receptor Antibod y, Serumon 09-13-2023 TSH receptor Ab Qn (S) <1.10 Invalid Interpretation Code 0.00-1.75 [facility] Comment on above: Result Comment: Perf ormed at: [facility] [address] [id number] MD Enrico Dean Performed By: #### 2 392009, 7065043, 5347548, [id number], [id number] ####[facility] [address] [place] [address] CHEMISTRYOrdered By: SYSTEM SYSTEM on 09-10-2023 Albumin [Mass/Vol] 4.2 g/dL Normal 3.3 - 5.0 gm/dL R emisol Chem Albumin/Globulin [Mass ratio] 1.4 {ratio} Normal 1.1 - 2.2 Remisol Chem ALP [Catalytic activity/Vol] 66 [iU]/d Normal 21 - 98 Int._Unit/L Remisol Chem ALT No additional P-5'-P [Catalytic activity/Vol] 14 [iU]/d Normal 6 - 46 Int._Unit/L Remisol Chem AST [Catalytic activity/Vol] 22 [iU]/d Normal 5 - 43 Int._Unit/L Remisol Chem Bilirubin [Mass/Vol] 0.5 mg/dL Normal 0.0 - 1.1 mg/dL Remisol Chem Bilirubin.direct [Mass/Vol] 0.1 mg/dL Normal 0.0 - 0.4 mg/dL Remisol Chem Bilirubin.indirect [Mass or moles/Vol] 0.4 mg/dL Normal 0.1 - 0.9 mg/dL Remisol Chem Free T4 [Mass/Vol] ng/dL Low 0.58 - 1.64 ng/dL Remisol Chem Globulin (S) [Mass/Vol] 3.0 g/dL Normal 1.4 - 4.0 gm/dL Remisol Chem Protein [Mass/Vol] 7.2 g/dL Normal 6.0 - 7.8 gm/dL R emisol Chem TSH Qn 68.80 m[IU]/L High 0.34 - 5.60 mcIU/mL Remisol Chem Consent for Treatmenton 08-22 Consent for Treatment [id number]#1.00TIFF Normal [facility] Free T4on 09-10-2023 Free T4 [Mass/Vol] ng/dL Low 0.58-1.64 [facility] Comment on above: Performed By: #### 2 987454, 9991801, 5672073, [id number], 0874965 ####[facility] [address] [place] [address] Hep Func Panelon 09-10-2023 Albumin [Mass/Vol] 4.2 g/dL Normal 3.3-5.0 [facility] Comment on above: Performed By: #### 2 210216, 0557344, 1300768, [id number], 0070633 ####[facility] [address] [place] [address] Albumin/Globulin (S) [Mass conc ratio] 1.4 Normal 1.1-2.2 [facility] Comment on above: Performed By: #### 2 845681, 4745571, 3699197, [id number], 8749567 ####[facility] [address] [place] [address] ALP [Catalytic activity/Vol] 66 Int._Unit/L Normal 21-98 [facility] Comment on above: Performed By: #### 2 068141, 5174578, 6057165, [id number], 9783586 ####[facility] [address] [place] [address] ALT No additional P-5'-P [Catalytic activity/Vol] 14 Int._Unit/L Normal 6-46 [facility] Comment on above: Performed By: #### 2 266951, 0712387, 6047308, [id number], 4049950 ####[facility] [address] [place] [address] AST [Catalytic activity/Vol] 22 Int._Unit/L Normal 5-43 [facility] Comment on above: Performed By: #### 2 008390, 7687953, 4931794, [id number], 1696069 ####[facility] [address] [place] [address] Bilirubin [Mass/Vol] 0.5 mg/dL Normal 0.0-1.1 [facility] Comment on above: Performed By: #### 2 947049, 4256981, 2463177, [id number], 6247023 ####[place] [address] Bilirubin.direct [Mass/Vol] 0.1 mg/dL Normal 0.0-0.4 [facility] Comment on above: Performed By: #### 2 076298, 6250611, 4090930, [id number], 3362338 ####[facility] [address] [place], [place] [address] Bilirubin.indirect [Mass or moles/Vol] 0.4 mg/dL Normal 0.1-0.9 [facility] Comment on above: Performed By: #### 2 003696, 5535889, 8942213, [id number], 9338936 ####[place] [address] [place] [address] Globulin (S) [Mass/Vol] 3.0 g/dL Normal 1.4-4.0 [facility] Comment on above: Performed By: #### 2 779557, 8617699, 7617068, 0150892649, 4888238 ####[facility] [address] [place] [address] Protein [Mass/Vol] 7.2 g/dL Normal 6.0-7.8 [facility] Comment on above: Performed By: #### 2 670972, 6075101, 8526548, [id number], 0285083 ####[address] [address] Physician Orderon 09-10-2023 Physician Order [id number]#1.00TIFF Normal [facility] TSHon 09-10-2023 TSH Qn 68.80 m[IU]/L High 0.34-5.60 [facility] Comment on above: Performed By: #### 2 424040, 4699310, 5773145, [id number], 6583582 ####[facility] [address] [place] [address] Consultation Noteon 08-12-19 Consultation Note [id number]#1.00TIFF Normal [facility] Insurance Correspondenceon 0 08-05-2023 Insurance Correspondence [id number]#1.00TIFF Normal [facility] Consultation Noteon 08-04-19 Consultation Note [id number]#1.00TIFF Normal [facility] .Thyroglobulin by RIAon 07-24 Thyroglobulin [Mass/Vol] 159 ng/mL High [facility] Comment on above: Result Comment: Conf irmed by dilution. This test was developed and its performance characteristics determined by [employer]. It has not been cleared or approved [...] quantitation limit is 2.0 ng/mL. Performed at: [facility] [address] [place] [id number] MD Yadiel Cornell Performed By: #### 2 816111, 8806516, 44483847, 83908851, 783772020, [id number] ####[facility] [address] [place] [address] T3 Reverseon 08-02-2023 T3.reverse [Mass/Vol] 31.2 ng/dL High 9.2-24.1 [facility] Comment on above: Result Comment: This test was developed and its performance characteristics determined by [facility]. It has not been cleared or approved by the Food and Drug Administration. Performed at: [address] [id number] MD Enrico Dean Performed By: #### 2 597155, 2887312, 03992010, 41847505, 457087531, [id number] ####[facility] [address] [place] [address] TgAb+Thyroglobulinon 024 Thyroglobulin Ab Qn 2.7 International_Unit /mL High 0.0-0.9 [facility] Comment on above: Result Comment: Thyr oglobulin Antibody measured by [employer] Performed at: [address] [id number] PhD Mahnaz Conklin Performed By: #### 2 254178, 7422724, 67555053, 41765269, 570483304, [id number] ####[address] [place] [address] Thyroid Perox.tpo Abon 08-02 TPO Ab Qn [IU]/mL Invalid Interpretation Code 0-34 [facility] Comment on above: Result Comment: Perf ormed at: [address] [id number] PhD Mahnaz Conklin Performed By: #### 2 660523, 3944399, 14380747, 14488431, [id number], [id number] ####[address] [place] [address] Family Medicine Office/Clini c Noteon 07-29-2023 Family [...] well and imagi (more content not included)... Normal [facility] Comment on above: Result Comment: Elec tronically Signed By: Paul Bass MD\.br\Date and Time Signed: 07/29/23 18:15 EST\.br\Electronically Co-Signed By: Jaja Alex\.br\Date and Time Co-Signed: 07/24/23 18:17 EST Interdisciplinary Note - Soc ial Workeron 07-28-2023 Interdisciplinary Note - Can Closing Machine Operator This SW made a tc to patient [...] week and is hoping to get answers. SW encouraged her to contact the office should needs arise. SW will remain available. Normal [facility] Ambulatory Visit Summaryon 0 07-24-2023 Ambulatory Visit [...] hormone level, Print Label By Order Location, 739189\.br\ Echo Transthoracic Complete, 07/24/23, Routine, Order for future visit, Transport Mode: Ambulatory, Reason: Other (please specify), Reason: murmur, Heart murmur, pp_set_radiology_ subspecialty, [facility], [place] [facility] [place]\.br\ Medications\.br\ What How Much When Instructions\.br\ New propranolol (propranolol 10 mg Tab) 1 Tablets By Mouth Once Pickup at [facility]\.br\ Unchanged baclofen (baclofen 10 mg Tab) See [...] if questions or concerns \.br\ Pharmacy Information\.br\ [facility]: [address] [phone]\.br\ Allergies\.br\ Latex\.br\ Tape (Rash)\.br\ Problems\.br\ Ongoing - [...] for choosing us for your care.\.br\ \.br\ [facility] Ambulatory Visit Summaryon 0 07-18-2023 Ambulatory [...] Schedule the Following Appointments Follow Up with JUAN LUIS REES, ASMIR [place] When: Only if needed Where: Medications What [...] You smoke (more content not included)... Normal [facility] CHEMISTRYOrdered By: SYSTEM SYSTEM on 07-18-2023 Free T4 [Mass/Vol] 2.22 ng/dL High 0.58 - 1.64 ng/dL Remisol Chem TSH Qn 0.01 m[IU]/L Low 0.34 - 5.60 mcIU/mL Remisol Chem Clipboard Summaryon 07-18-19 24 Clipboard Summary {[id number] -[id number] -[id number]}XML Normal [facility] Consent for Treatmenton 06-24 Consent for Treatment [id number]#1.00TIFF Normal [facility] Family Medicine Office/Clini c Noteon 07-18-2023 [...] and had a biopsy on Friday at [facility], carried out by the radiology department interventional [...] Nonicteric sclera. Oropharynx pink and moist. Adequate torres martinez dentition. Anterior neck, there is a fullness [...] the pathology report on her phone from [facility] which indicates benign cellularity although admittedly may be an adequate specimen. She should keep follow-up with Dr. Puente of ENT as planned for further discussion and management 3. Hyperthyroidism (E05.90: Thyrotoxicosis, unspecified without thyrotoxic crisis or storm) Problems #1 and 2. Awaiting thyroid antibodies to determine management. She does have an appointment scheduled to see Dr. Jonas cardiology early July. He will determine if methimazole or radiation are necessary. 4. Odynophagia (R13.10: Dysphagia, unspecified) (more content not included)... Normal [facility] Comment on above: Result Comment: Elec tronically Signed By: JUAN LUIS REES, Nancy\.br\Date and Time Signed: 07/18/23 19:02 EST Free T4on 07-18-2023 Free T4 [Mass/Vol] 2.22 ng/dL High 0.58-1.64 [facility] Comment on above: Performed By: #### 2 877799, 4136134, 12755366, 43636592, [id number], [id number] ####[facility] [address] [place] [address] Patient Educationon 07-18-19 Patient Education Endocrinology Hyperthyroidism [...] Follow these instructions at home: ? Take vurw-hin-ztwdcaf and prescription medicines only as told by [...] Where to find more information ? National [employer] of Diabetes and Digestive and Kidney Diseases: [...] as u (more content not included)... Normal [facility] TSHon 07-18-2023 TSH Qn 0.01 m[IU]/L Low 0.34-5.60 [facility] Comment on above: Performed By: #### 2 593296, 5699628, 69083696, 91133482, [id number], [id number] ####[facility] [address] [place] [address] Mata 07-14-2023 L Specimen: [id number] Received: 07/15/23-1303 Status: SOUT Req Num: [id number] Spec Type: Cytology Subm Dr: MARTA PUENTE MD Tissues: A FNA SLIDES NOPATH (LT THYROID NOD) Procedures: Cyto Int and Re, PAPSTN/5 Age/ Patient Sex Location Account Attending Physician Jessica Griffiths 37/F [facility] [id number] MARTA PUENTE MD SPEC NUM: [id number] RECD: 07/15/23 STATUS: DENA SIFUENTES NUM: [id number] KANCHAN: 07/14/23- SUBM DR: MARTA PUENTE MD ENTERED: 07/15/23 [facility] DR: Richie,Lab SPEC TYPE: Cytology DEPT: [facility] PENDING SALE TO [facility] ENTERED BY: [id number] RECV BY: [id number] ORDERED: Cyto Int and Re, PAPSTN/5 ORDERED: Cyto Int and Re, PAPSTN/5 Pathological Diagnosis Left thyroid mid lobe nodule, FNA cytology: - Adequate but slightly limited for assessment - The Barlow system is category 2: Benign - A [...] slides for microscopic examination.(CC/nh ) -- Specimen: Received: 07/15/23 Status: DENA Elliottgaurav Num: [id number] Spec Type: Cytology Subm Dr: MARTA PUENTE MD Tissues: A FNA SLIDES NOPATH (LT THYROID NOD) Procedures: Cyto Int and Re, PAPSTN/5 -- Patient: Jessica Griffiths [id number] (Continued) -- Specimen: [id number] Received: 07/15/23 (Continued) Signed (signatu re on file) Alfonso Correa MD 07/16/231122 -- Specimen: [id number] Received: 07/15/23 Status: DENA Sifuentes Num: [id number] Spec Type: Cytology Subm Dr: MARTA PUENTE MD Tissues: A FNA SLIDES NOPATH (LT THYROID NOD) Procedures: Cyto Int and Re, PAPSTN/5 -- Patient: Jessica Griffiths [id number] (Continued) -- Specimen: [id number] Received: 07/15/23 (Continued) CPT Codes 27524 -- -- Specimen: [id number] Received: 07/15/23 Status: DENA Sifuentes Num: [id number] Spec Type: Cytology Subm Dr: MARTA PUENTE MD Tissues: A FNA SLIDES NOPATH (LT THYROID NOD) Procedures: Cyto Int and Re, PAPSTN/5 -- Patient: Jessica Griffiths [id number] (Continued) -- Signed (signatu re on file) Alfonso Correa MD 07/16/23 1123 [facility] NM Thyroid Imaging w/ Uptk Angelito ortega [...] 203.5 Imaging Post Administration (hrs): 24 Normal [facility] Consent for Treatmenton 06-23 Consent for Treatment [id number]#1.00TIFF Normal [facility] Lipid Panelon 07-08-2023 Cholesterol [Mass/Vol] 145 mg/dL Normal 120-200 [facility] Comment on above: Performed By: #### 2 160889 ####[facility] [address] [place] [address] Cholesterol in HDL [Mass/Vol] 62 mg/dL Invalid Interpretation Code [facility] Comment on above: Result Comment: '>= 60 LOW RISK' '<= 40 HIGH RISK' Performed By: #### 2 981935 ####[facility] [address] [place] [address] Cholesterol in LDL [Mass/Vol] 76 mg/dL Normal <=129 [facility] Comment on above: Performed By: #### 2 402536 ####[facility] [address] [place] [address] Cholesterol in VLDL [Mass/Vol] 10 mg/dL Normal 7-40 [facility] Comment on above: Performed By: #### 2 426684 ####[facility] [address] [place] [address] Triglyceride [Mass/Vol] 52 mg/dL Normal <=149 [facility] Comment on above: Performed By: #### 2 629568 ####[facility] [address] [place] [address] UA With Cult Reflexon 2023 Bacteria LM Ql (Urine sed) 1+ /HPF Abnormal Trace [facility] Comment on above: Performed By: #### 1 9171933 ####[facility] [address] [place] [address] Bilirubin Ql (U) Negative Normal Negative [facility] Comment on above: Performed By: #### 1 3676178 ####[facility] [address] [place] [address] Clarity (U) CLEAR Normal Clear [facility] Comment on above: Performed By: #### 1 9410039 ####[facility] [address] [place] [address] Color (U) YELLOW Normal Yellow [facility] Comment on above: Performed By: #### 1 5316942 ####[facility] [address] [place] [address] Epithelial cells.squamous LM.HPF (Urine sed) [#/Area] /[HPF] Normal 0-2 [facility] Comment on above: Performed By: #### 1 9320619 ####[facility] [address] [place] [address] Glucose Test strip (U) [Mass/Vol] Negative Normal Negative [facility] Comment on above: Performed By: #### 1 8078724 ####[address] [address] Hemoglobin Ql (U) Negative Normal Negative [facility] Comment on above: Performed By: #### 1 5273895 ####[address] [address] Ketones (U) [Mass/Vol] TRACE Abnormal Negative [facility] Comment on above: Performed By: #### 1 3411669 ####[address] [address] Mccord.plasma/Lithiu m.RBC (Bld) [Mass ratio] 0-3 Normal 0-3 [facility] Comment on above: Performed By: #### 1 1427363 ####[address] [address] Mucus Ql (Urine sed) 2+ Normal [facility] Comment on above: Performed By: #### 1 4685857 ####[facility] [address] [place] [address] Nitrite Ql (U) Negative Normal Negative [facility] Comment on above: Performed By: #### 1 4834522 ####[address] [address] pH (U) 6.5 [pH] Invalid Interpretation Code 5.0-9.0 [facility] Comment on above: Performed By: #### 1 9877564 ####[facility] [address] [place] [address] Protein (U) [Mass/Vol] Negative Normal Negative [facility] Comment on above: Performed By: #### 1 5981955 ####[address] [address] Specific gravity (U) [Rel density] 1.015 Invalid Interpretation Code 1.005-1.030 [facility] Comment on above: Performed By: #### 1 9219553 ####[address] [address] Type of Urine collection method Clean Catch Normal [facility] Comment on above: Performed By: #### 1 1429452 ####[address] [address] Urobilinogen Qn (U) 0.2 {Dylan'U}/dL Normal 0.0-1.0 [facility] Comment on above: Performed By: #### 1 6574214 ####[address] [address] WBC Auto Ql (U) Negative Normal Negative [facility] Comment on above: Performed By: #### 1 4509867 ####[address] [address] WBC LM.HPF (Urine sed) [#/Area] 0-5 Normal 0-5 [facility] Comment on above: Performed By: #### 1 2950868 ####[address] [address] Insurance Correspondenceon 0 07-01-2023 Insurance Correspondence [id number]#1.00TIFF Normal [facility] Physician Referralon 024 Physician Referral [id number]#1.00TIFF Normal [facility] Consent for Treatmenton Consent for Treatment [id number]#1.00TIFF Normal [facility] US Thyroidon 06-27-2023 US Thyroid Exam [...] Ernst MD Transcribed by: YAMINI Technologist: FAISAL Normal [facility] Family Medicine Office/Clini c Noteon 06-24-2023 [...] discuss her thyroid. She was seen in [facility] on 06/20/2023 for feeling a lump [...] with voice recognition artificial intelligence software, specifically [employer], [employer] and or [employer]. Substitutions may have occurred due to the inherent limitations of voice recognition and artificial intelligence software. Documentation services were performed after patient or guardian consented to allow Jalen Producteev Isra to record this visit. D (more content not included)... Normal [facility] Comment on above: Result Comment: Elec tronically Signed By: Paul Bass MD\.br\Date and Time Signed: 06/24/23 18:25 EST\.br\Electronically Co-Signed By: Jaja Alex\.br\Date and Time Co-Signed: 06/24/23 18:04 EST T3 Freeon 06-22-2023 Free T3 [Mass/Vol] 4.2 pg/mL Invalid Interpretation Code 2.0-4.4 [facility] Comment on above: Result Comment: Perf ormed at: [facility] [address] [id number] PhD Mahnaz Conklin Performed By: #### 2 994042, 6389082, 32543121, 0531437 ####[facility] [address] [place] [address] Auto Diffon 06-21-2023 Basophils/100 WBC (Bld) 0.3 % Normal 0.0-2.0 [facility] Comment on above: Order Comment: Order Added by Discern Expert. Performed By: #### 2 173797, 8883506, 4353549, 5411622, 50830667 ####[facility] [address] [place] [address] Basophils/Leukocytes Auto (Bld) [Pure # fraction] 0.0 E9/L Normal 0.0-0.2 [facility] Comment on above: Order Comment: Order Added by Discern Expert. Performed By: #### 2 725345, 4569295, 9648167, 2259737, 13743714 ####[place] [place] [address] Eosinophils/100 WBC (Bld) 0.6 % Normal 0.0-8.0 [facility] Comment on above: Order Comment: Order Added by Discern Expert. Performed By: #### 2 505699, 9284565, 9337867, 6960186, 80918327 ####[address] [place] [address] Eosinophils/Leukocyte s Auto (Bld) [Pure # fraction] 0.0 E9/L Normal 0.0-0.5 [facility] Comment on above: Order Comment: Order Added by Discern Expert. Performed By: #### 2 738346, 8988156, 3936657, 7260058, 82649716 ####[address] [address] Lymphocytes/100 WBC (Bld) 20.6 % Normal 14.0-50.0 [facility] Comment on above: Order Comment: Order Added by Discern Expert. Performed By: #### 2 744273, 6692216, 8371583, 5474586, 10623297 ####[address] [address] Lymphocytes/Leukocyte s Auto (Bld) [Pure # fraction] 1.7 E9/L Normal 1.0-4.0 [facility] Comment on above: Order Comment: Order Added by Discern Expert. Performed By: #### 2 985686, 4399722, 3828667, 2225455, 32855047 ####[address] [address] Monocytes/100 WBC (Bld) 6.6 % Normal 4.0-14.0 [facility] Comment on above: Order Comment: Order Added by Discern Expert. Performed By: #### 2 670067, 9770353, 5167953, 8115321, 82073057 ####[address] [place] [address] Monocytes/Leukocytes Auto (Bld) [Pure # fraction] 0.5 E9/L Normal 0.2-1.0 [facility] Comment on above: Order Comment: Order Added by Discern Expert. Performed By: #### 2 979738, 6717514, 1915727, 9049692, 96033254 ####[address] [address] Neutrophils/100 WBC (Bld) 71.9 % Normal 36.0-75.0 [facility] Comment on above: Order Comment: Order Added by Discern Expert. Performed By: #### 2 072989, 7426518, 0687550, 9753037, 23295228 ####[address] [place] [address] Neutrophils/Leukocyte s Auto (Bld) [Pure # fraction] 5.8 E9/L Normal 2.0-7.5 [facility] Comment on above: Order Comment: Order Added by Discern Expert. Performed By: #### 2 814885, 2003413, 2234374, 7771892, 48704761 ####[address] [address] CBC w/ Auto Diffon Erythrocyte distribution width (RBC) [Ratio] 12.6 % Normal 10.9-14.2 [facility] Comment on above: Performed By: #### 2 495025, 2430689, 6011357, 1046900, 02693545 ####[address] [address] Hematocrit (Bld) [Volume fraction] 37.8 % Normal 34.0-46.0 [facility] Comment on above: Performed By: #### 2 917909, 0598135, 7636856, 5511857, 39382505 ####[address] [address] Hemoglobin (Bld) [Mass/Vol] 12.7 g/dL Normal 12.0-16.0 [facility] Comment on above: Performed By: #### 2 132345, 1035904, 6547472, 8852449, 20093481 ####[address] [address] MCH (RBC) [Entitic mass] 32.2 pg Normal 27.0-34.0 [facility] Comment on above: Performed By: #### 2 797100, 3951060, 5428465, 2847045, 73422431 ####[facility] [address] [place] [address] MCHC (RBC) [Mass/Vol] 33.8 g/dL Normal 31.4-36.0 [facility] Comment on above: Performed By: #### 2 731324, 9564438, 9138775, 7932553, 12204769 ####[place] [address] MCV (RBC) [Entitic vol] 95.5 fL Normal 80.0-100.0 [facility] Comment on above: Performed By: #### 2 430814, 6612677, 5648980, 0460089, 53145048 ####[place] [address] Platelet mean volume (Bld) [Entitic vol] 8.5 fL Normal 6.4-10.8 [facility] Comment on above: Performed By: #### 2 652536, 0902203, 5343801, 7658261, 85038710 ####[address] [address] Platelets (Bld) [#/Vol] 303.0 E9/L Normal 150.0-500.0 [facility] Comment on above: Performed By: #### 2 005685, 1419359, 6967674, 4093663, 33781732 ####[place] [address] RBC (Bld) [#/Vol] 4.0 E12/L Low 4.3-5.9 [facility] Comment on above: Performed By: #### 2 592060, 6504895, 3055699, 0840636, 81314504 ####[address] [address] WBC corrected for nucl RBC Auto (Bld) [#/Vol] 8.1 E9/L Normal 4.0-11.0 [facility] Comment on above: Performed By: #### 2 528184, 8823937, 5804803, 3172065, 38777739 ####[facility] [address] [place] [address] CHEMISTRYOrdered By: SYSTEM SYSTEM on 06-21-2023 Albumin [...] 06-21-2023 Albumin [Mass/Vol] 3.8 g/dL Normal 3.3-5.0 [facility] Comment on above: Performed By: #### 2 990755, 3519903, 3069045, 3851328, 76534083 ####[facility] [address] [place] [address] Albumin/Globulin [Mass ratio] 1.3 {ratio} Normal 1.1-2.2 [facility] Comment on above: Performed By: #### 2 166752, 0661830, 3117605, 4024491, 24790072 ####[facility] [address] [place] [address] Alk Phos 83 Int._Unit/L Normal 21-98 [facility] Comment on above: Performed By: #### 2 754456, 4946923, 6549989, 1115459, 66317225 ####[facility] [address] [place] [address] ALT 10 Int._Unit/L Normal 6-46 [facility] Comment on above: Performed By: #### 2 185697, 8806876, 3463501, 2138386, 01416019 ####[facility] [address] [place] [address] Anion gap [Moles/Vol] 10 mmol/L Normal 6-16 [facility] Comment on above: Performed By: #### 2 423681, 2851895, 9703242, 1445514, 74286269 ####[facility] [address] [place] [address] AST 15 Int._Unit/L Normal 5-43 [facility] Comment on above: Performed By: #### 2 471111, 8792793, 7077417, 4130037, 19977759 ####[facility] [address] [place] [address] Bili Total 0.5 mg/dL Normal 0.0-1.1 [facility] Comment on above: Performed By: #### 2 426886, 7934148, 3264894, 8253240, 39908413 ####[facility] [address] [place] [address] BUN/Creat Ratio 22 No Units High 10-20 [facility] Comment on above: Performed By: #### 2 737021, 8952383, 0416706, 7028232, 95207533 ####[facility] [address] [place] [address] Calcium [Mass/Vol] 8.7 mg/dL Low 8.9-11.1 [facility] Comment on above: Performed By: #### 2 450883, 9111405, 4975022, 4322981, 13997954 ####[facility] [address] [place] [address] Chloride [Moles/Vol] 103 mmol/L Normal 101-111 [facility] Comment on above: Performed By: #### 2 804719, 5237539, 1660451, 6343363, 31514620 ####[facility] [address] [place] [address] CO2 [Moles/Vol] 29 mmol/L Normal 21-31 [facility] Comment on above: Performed By: #### 2 015444, 5429284, 0822513, 9369215, 44922407 ####[facility] [address] [place] [address] Creatinine [Mass/Vol] 0.6 mg/dL Normal 0.5-1.3 [facility] Comment on above: Performed By: #### 2 591812, 2030816, 2811405, 7084479, 36790772 ####[facility] [address] [place] [address] Globulin (S) [Mass/Vol] 3.0 g/dL Normal 1.4-4.0 [facility] Comment on above: Performed By: #### 2 155272, 5879767, 1573581, 3209900, 42839989 ####[facility] [address] [place] [address] Glucose [Mass/Vol] 84 mg/dL Normal 55-199 [facility] Comment on above: Performed By: #### 2 206825, 1090969, 4469755, 7605677, 20547185 ####[facility] [address] [place] [address] Potassium [Moles/Vol] 3.9 mmol/L Normal 3.5-5.3 [facility] Comment on above: Performed By: #### 2 582131, 1636316, 9942462, 8374595, 85675537 ####[facility] [address] [place] [address] Protein [Mass/Vol] 6.8 g/dL Normal 6.0-7.8 [facility] Comment on above: Performed By: #### 2 241462, 5107622, 7352207, 8577198, 79129802 ####[facility] [address] [place] [address] Sodium [Moles/Vol] 138 mmol/L Normal 135-145 [facility] Comment on above: Performed By: #### 2 559534, 7932856, 4525483, 7002806, 46576519 ####[facility] [address] [place] [address] Urea nitrogen [Mass/Vol] 13 mg/dL Normal 5-21 [facility] Comment on above: Performed By: #### 2 152677, 4982160, 1692450, 1660939, 05401811 ####[facility] [address] [place] [address] Consent for Treatmenton 05-25 Consent for Treatment [id number]#1.00TIFF Normal [facility] Free T4on 06-21-2023 Free T4 [Mass/Vol] 1.37 ng/dL Normal 0.58-1.64 [facility] Comment on above: Performed By: #### 2 601436, 6976815, 8499107, 2879372, 02775670 ####[facility] [address] [place] [address] HEMATOLOGYOrdered By: SYSTEM SYSTEM on 06-21-2023 Basophils/100 [...] 12.6 % Normal 10.9 - 14.2 % FT HemeAutoSS Hematocrit (Bld) [Volume fraction] 37.8 % Normal 34.0 - 46.0 % FT HemeAutoSS Hemoglobin (Bld) [Mass/Vol] 12.7 g/dL Normal 12.0 - 16.0 gm/dL FT HemeAutoSS MCH (RBC) [Entitic mass] 32.2 pg Normal 27.0 - 34.0 pg FT HemeAutoSS MCHC (RBC) [Mass/Vol] 33.8 g/dL Normal 31.4 - 36.0 gm /dL FT HemeAutoSS MCV (RBC) [Entitic vol] 95.5 fL Normal 80.0 - 100.0 fL FT [facility]eAuto[facility] Platelet mean volume (Bld) [Entitic vol] 8.5 fL Normal 6.4 - 10.8 fL FT HemeAuto[facility] Platelets (Bld) [#/Vol] 303.0 E9/L Normal 150.0 - 500.0 E9/L FT [facility] RBC (Bld) [#/Vol] 4.0 E12/L Low 4.3 - 5.9 E12/L FT HemeAuto[facility] WBC corrected for nucl RBC Auto (Bld) [#/Vol] 8.1 E9/L Normal 4.0 - 11.0 E9/L [facility] Physician Orderon 06-21-2023 Physician Order [id number]#1.00TIFF Normal [facility] T3 Uptakeon 06-21-2023 T3 Uptake 46.6 % Normal 32.0-48.4 [facility] Comment on above: Performed By: #### 2 788382, 7823160, 19631537, 2784633 ####[facility] [address] [place] [address] T4 Totalon 06-21-2023 T4 18.8 microgram/dL High 4.6-9.1 [facility] Comment on above: Performed By: #### 2 748439, 6696764, 99662311, 1936662 ####[facility] [address] [place] [address] TSHon 06-21-2023 TSH Qn 0.07 m[IU]/L Low 0.34-5.60 [facility] Comment on above: Performed By: #### 2 438026, 8384880, 03685017, 5940910 ####[facility] [address] [place] [address] eGFRon 06-21-2023 GFR/1.73 sq M.predicted among non-blacks MDRD (S/P/Bld) [Vol rate/Area] mL/min/{1.73_m2} Normal >=59 [facility] Comment on above: Order Comment: Order added by Discern Expert. Performed By: #### 2 817519, 1198936, 9111981, 7137403, 00138625 ####[facility] [address] [place] [address] Family Medicine Office/Clini c Noteon 06-20-2023 Family [...] with voice recognition software. Occasional wrong-word or ?llowy-t-lpso? substitutions may have occurred due to the [...] know she has been working with her FIELD CONTRACTOR in regards to blood test and lab [...] lost some weight. But again is seeing FIELD CONTRACTOR in regards to these fluctuations denies any [...] with prim (more content not included)... Normal [facility] Comment on above: Result Comment: Elec [...] weeks. Home care treatment may include: ? Uhog-egb-lpjjlcz pain relievers. ? A warm, moist cloth placed over the ear. Severe cases may require a procedure to insert tubes in the ears (tympanostomy tubes) to drain the fluid. Follow these instructions at home: ? Take lulm-vhw-tvzqqbj and prescription medicines only as told by [...] provider. Document Revised: 10/04/2021 Document Reviewed: 10/04/2021 [employer] Patient Education ? 2022 [employer]. Endocrinology Thyroid Nodule A thyroid nodule is [...] not included)... Normal [facility] MRI Spine Cervical w/o Contr elvira [...] YAMINI Technologist: CAPRI Technical Comments None Normal [facility] Consent for Treatmenton 05-23 Consent for Treatment [id number]#1.00TIFF Normal [facility] RAD - MRI Screening Formon 1 08-10-2022 RAD - MRI Screening Form [id number]#1.00TIFF Normal [facility] Physician Orderon 06-03-2023 Physician Order [id number]#1.00TIFF [facility] Consent for Treatmenton Consent for Treatment [id number]#1.00TIFF [facility] Physician Orderon 04-28-2023 Physician Order [id number]#1.00TIFF [facility] XR Spine Cervical 4 or 5 [...] mGy = na DAP = na Normal [facility] EMG Electromyographyon 01-21 EMG Electromyography [id number]#1.00CD:127 Normal [facility] Consultation Noteon 01-16-20 Consultation Note [id number]#1.00CD:127 Normal [facility] Auth for Release of Medical Recordson 12-17-2022 Auth for Release of Medical Records [id number] [id number]#1.00CD:127 Normal [facility] Consultation Noteon 11-16-19 Consultation Note [id number]#1.00CD:127 Normal [facility] EMG Electromyographyon 10-17 EMG Electromyography [id number]#1.00CD:127 Normal [facility] Consultation Noteon 10-08-19 Consultation Note [id number]#1.00CD:127 Normal [facility] CHEMISTRYOrdered By: SYSTEM SYSTEM on 12-03-2021 Free T4 [Mass/Vol] 0.66 ng/dL Normal 0.58 - 1.64 ng/dL [facility] Remisol Glucose post fast [Mass/Vol] 90 mg/dL [...] developed and its performance characteristics determined by [employer]. Nucleic acid amplification tests include RT-PCR and [...] detected) result in this assay. Performed at: [address] [id number] PhD Mahnaz Conklin Vital Signs Date Time Vital Sign Value Performing Clinician Facility 08-04-2023 11:27-0500 Body height 167.6 cm Marta Puente MD Work Phone: [facility] 08-04-2023 11:27-0500 Body mass index (BMI) [Ratio] 21.14 kg/m2 Marta Puente MD Work Phone: [facility] 08-04-2023 11:27-0500 Body weight 59.42 kg Marta Puente MD Work Phone: [facility] 08-04-2023 11:27-0500 Diastolic blood pressure 81 mm[Hg] Marta Puente MD Work Phone: [facility] 08-04-2023 11:27-0500 Systolic blood pressure 111 mm[Hg] Marta Puente MD Work Phone: [facility] 07-24-2023 13:41-0500 Blood Pressure Location Paul Gudimella [facility] 07-24-2023 13:41-0500 Diastolic blood pressure 70 mm[Hg] Paul Gudimella [facility] 07-24-2023 13:41-0500 Heart rate 86 /min Paul Gudimella [facility] 07-24-2023 13:41-0500 SaO2% (BldA) [Mass fraction] 98 % Paul Gudimella [facility] 07-24-2023 13:41-0500 Systolic blood pressure 106 mm[Hg] Paul Gudimella [facility] 07-18-2023 16:16-0500 Blood Pressure Location Nancy BARRIENTOS [facility] 07-18-2023 16:16-0500 Diastolic blood pressure 60 mm[Hg] Nancy BARRIENTOS [facility] 07-18-2023 16:16-0500 Heart rate 92 /min Nancy BARRIENTOS [facility] 07-18-2023 16:16-0500 Respiratory rate 16 /min Nancy BARRIENTOS [facility] 07-18-2023 16:16-0500 SaO2% (BldA) [Mass fraction] 98 % Nancy [facility]ENT[facility] [facility] 07[facility]2023 16:16-0500 Systolic blood pressure 90 mm[Hg] Nancy BARRIENTOS [facility] 06-24-2023 13:49-0500 Blood Pressure Location Paul Gudimella [facility] 06-24-2023 13:49-0500 Diastolic blood pressure 72 mm[Hg] Paul Gudimella [facility] 06-24-2023 13:49-0500 Heart rate 89 /min Paul Gudimella [facility] 06-24-2023 13:49-0500 SaO2% (BldA) [Mass fraction] 97 % Paul Gudimella [facility] 06-24-2023 13:49-0500 Systolic blood pressure 98 mm[Hg] Paul Gudimella [facility] 06-20-2023 18:43-0500 Blood Pressure Location Filiberto Shoaib [facility] 12-29-2023 18:43-0500 Body temperature 98.06 [degF] Filiberto Cramer [facility] 06-20-2023 18:43-0500 Diastolic blood pressure 76 mm[Hg] Filiberto Cramer [facility] 06-20-2023 18:43-0500 Heart rate 96 /min Filiberto Cramer [facility] 06-20-2023 18:43-0500 SaO2% (BldA) [Mass fraction] 98 % Filiberto Cramer [facility] 06-20-2023 18:43-0500 Systolic blood pressure 122 mm[Hg] Filiberto Cramer [facility] 12-28-2021 11:20-0400 Body height 167.64 cm Ric Tnioco Other [employer] Other 12-28-2021 11:20-0400 Body mass index (BMI) [Ratio] 21.14 kg/m2 Ric Tinoco Other [employer] Other 12-28-2021 11:20-0400 Body weight 59.42 kg Ric Tinoco Other [employer] Other 04-17-2021 15:40-0400 Body height 167.64 cm Ric Tinoco Other [employer] Other 04-17-2021 15:40-0400 Body mass index (BMI) [Ratio] 21.14 kg/m2 Ric Tinoco Other [employer] Other 04-17-2021 15:40-0400 Body weight 59.42 kg Ric Tinoco Other [employer] Other 05-31-2020 15:50-0500 Body weight 63.96 kg [facility] [place] [facility] [place] 05-31-2020 15:50-0500 BP Diastolic 79 mm[Hg] [facility] [place] [facility] [place] 05-31-2020 15:50-0500 BP Systolic 107 mm[Hg] [facility] [place] [facility] [place] 05-31-2020 15:50-0500 Pulse (Heart Rate) 67 /min [facility] [place] 05-31-2020 15:50-0500 Pulse Oximetry 100 % [facility] [place] [facility] [place] 05-31-2020 15:50-0500 Respiratory Rate 20 /min [facility] [place] Encounters Encounter Date Encounter Type Care Provider Facility Start: 09-10-2023 End: 09-11-2023 ambulatory AMAIRANI JONAS Facility[facility] Start: 09-10-2023 End: 09-10-2023 Patient encounter procedure AMAIRANI JONAS [facility] Start: 08-04-2023 Bamboo flowsheet Marta rubio MD Work Phone: [facility] Start: 08-04-2023 Bamboo flowsheet Marta rubio MD Work Phone: [facility] Start: 08-04-2023 End: 08-04-2023 ambulatory MARTA PUENTE Not Available Start: 08-04-2023 End: 08-04-2023 Office outpatient visit 15 minutes Marta Puente MD Work Phone: [facility] Comment on above: Mass of thyroid nadir on (Primary Dx); Hyperthyroidism (CMS/HCC) Start: 07-29-2023 ambulatory Nancy Russell ity:HELEN [facility] Start: 07-24-2023 End: 07-25-2023 ambulatory MD Paul Bass Facility: [facility] Start: 07-24-2023 End: 07-24-2023 Patient encounter procedure Paul Bass [facility] Start: 07-18-2023 End: 07-19-2023 ambulatory Nancy BARRIENTOS Facility:[facility] Start: 07-18-2023 End: 07-18-2023 Patient encounter procedure Nancy BARRIENTOS [facility] Start: 07-18-2023 End: 07-19-2023 ambulatory MD Paul Bass Facility[facility] Start: 07-18-2023 End: 07-18-2023 Patient encounter procedure Paul Bass [facility] Start: 07-14-2023 End: 07-14-2023 ambulatory MD Ruben Barrientos Work Phone: [facility] Work Phone: Start: 07-14-2023 End: 07-14-2023 Departed Referred MD Ruben Barrientos Work Phone: [facility] Start: 07-08-2023 ambulatory MD Paul Oseguera lity:[facility] Start: 07-04-2023 End: 07-04-2023 ambulatory MARTA PUENTE Not Available Start: 06-27-2023 ambulatory MD Paul Oseguera lity:[facility] Start: 06-27-2023 End: 06-28-2023 ambulatory MD Paul Bass Facility:[facility] Start: 06-27-2023 End: 06-27-2023 Patient encounter procedure Paul Bass [facility] Start: 06-24-2023 End: 06-25-2023 ambulatory MD Paul Bass Facility:[facility] Start: 06-24-2023 End: 06-24-2023 Patient encounter procedure Paul Bass [facility] Start: 06-21-2023 End: 06-22-2023 ambulatory Filiberto Cramer Facility:[facility] Start: 06-21-2023 End: 06-21-2023 Patient encounter procedure Filiberto Cramer [facility] Start: 06-20-2023 End: 06-21-2023 ambulatory Filiberto Cramer Facility: [place] Start: 06-20-2023 End: 06-20-2023 Patient encounter procedure Filiberto Cramer [facility] Start: 06-09-2023 End: 06-10-2023 ambulatory Narendranath Lakshmipathy Facility[facility] Start: 06-09-2023 End: 06-09-2023 Patient encounter procedure Narendranath Lakshmipathy [facility] Start: 05-07-2023 End: 05-07-2023 ambulatory KRAIG PARK Not Available Start: 04-28-2023 ambulatory Anitra BARRIENTOS Facility: [place] Start: 04-28-2023 End: 04-29-2023 ambulatory EBER CASTANEDA Facility:[facility] Start: 04-28-2023 End: 04-28-2023 Patient encounter procedure EBER CASTANEDA [facility] Start: 11-05-2022 End: 11-06-2022 ambulatory NARENDRANATH LAKSHMIPATHY . Facility: Start: 10-22-2022 End: 10-22-[address] DOCTOR ALEJANDRE Facility: Start: 10-01-2022 End: 10-02-2022 ambulatory ISAURA Lima Facility:[facility] Start: 08-27-2022 End: 08-27-2022 ambulatory Ric Tinoco Other [employer] Other Start: 08-27-2022 Telephone encounter Ric Tinoco [facility] Start: 06-11-2022 End: 06-12-[address] HERB RIVERO . Facility:[facility] Start: 05-28-2022 End: 05-28-[address] HERB RIVERO . Facility:[facility] Start: 03-05-2022 End: 03-06-[address] HERB RIVERO . Facility:[facility] Start: 12-28-2021 End: 12-28-2021 ambulatory Ric Tinoco Other [employer] Other Start: 12-28-2021 Office outpatient visit 15 minutes Ric Tinoco [facility] Start: 12-03-2021 End: 12-03-2021 Patient encounter procedure Kraig Park [facility] Start: 11-08-2021 End: 11-09-[address] HERB RIVERO . Facility:[facility] Start: 07-13-2021 End: 10-11-2021 Patient encounter procedure Nancy BARRIENTOS [facility] Start: 04-17-2021 Office outpatient visit 15 minutes Ric Tinoco [facility] Start: 05-31-2020 End: 05-31-2020 [facility]: 05-31-2020 End: 05-31-2020 Emergency department patient visit Kathy Eaton [facility] Work Phone: [facility] Comment on above: Chest wall pain (Brunilda michelet Dx) Start: 12-30-2018 End: 01-07-2019 Patient encounter procedure PROVIDER UNKNOWN Facility:[facility] Procedures Date Procedure Procedure Detail Performing Clinician [...] anterior approach Nancy BARRIENTOS Comment on above: [facility] Start: 06-19-2018 Removal of sebaceous cyst Nancy BARRIENTOS Comment on above: Right inner thigh Start: 06-23-2006 Augmentation mammoplasty Nancy BARRIENTOS H/O: hysterectomy S/P laparoscop ic hysterectomy MD Ruben Barrientos Work Phone: laparoscopy 4 Umangsanjeev [facility] Comment on above: 2014 Dr. Chantel landeros laparoscopy 5 Rosendoeduardo [facility] Comment on above: 2014 Dr. Chantel landeros lumbar microdisectomy 5 Rex escobarher BARRIENTOS Comment on above: 10/2017 Dr. Barnes @ [facility] lumbar microdisectomy 6 Rex tejada JUAN LUIS Comment on above: 10/2017 Dr. Barnes @ [facility] 6 Nancy GIUSEPPE BIRCH Comment on above: per Dr. Glez 8 wisdom teeth extracted Ruben yonatan BARRIENTOS Plan of Treatment Date Care Activity Detail Author Start: 05-31-2026 [facility] Start: 08-04-2023 End: 08-04-2023 Patient encounter procedure 08/04/2023 11:20 AM EST Office Visit [facility] [address] [address] Marta Puente MD [address] [place] [address] [address] [place] [address] Arrived [facility] Comment on above: Arrived Start: 02-21-2023 Influenza vaccination Influenza Vacc ine (#1) [facility] Start: 02-22-2020 Influenza vaccination Flu vaccine (# 1) [place], [place] Start: 2005 Screening for malign ant neoplasm of cervix Pap Smear [facility] EKG 12 Lead EKG 12 Lead ECG STAT 05/31/2020 4:01 PM EST [place] Immunizations Immunization Date Immunization Notes Care Provider Fa cility 10-28-2020 COVID-19, mRNA, LNP-S, PF, 30 mcg/0.3 mL dose; Translations: [Pfizer-BioNTech COVID-19 Vaccine] Nancy BARRIENTOS [facility] Comment on above: Reason for Medicatio n: Prophylaxis 10-07-2020 COVID-19, mRNA, LNP-S, PF, 30 mcg/0.3 mL dose; Translations: [Pfizer-BioNTech COVID-19 Vaccine] Nancy BARRIENTOS [facility] Comment on above: Reason for Medicatio n: Prophylaxis 04-15-2020 influenza, injectable, quadrivalent, contains preservative Nancy BARRIENTOS [facility] 04-15-2020 influenza virus vaccine, unspecified formulation Marta Puente MD Work Phone: [facility] 03-23-2018 influenza virus vaccine, unspecified formulation Nancy BARRIENTOS [facility] 03-10-2013 tetanus toxoid, reduced diphtheria toxoid, and acellular pertussis vaccine, adsorbed Nancy BARRIENTOS [facility] Comment on above: Reason for Medicatio n: Other (see comment) 10-13-2007 tetanus toxoid, reduced diphtheria toxoid, and acellular pertussis vaccine, adsorbed Filiberto Cramer [facility] 10-24-1999 hepatitis A and hepatitis B vaccine Filiberto Cramer [facility] 01-25-1998 measles, mumps and rubella virus vaccine Filiberto Cramer [facility] NEGATED: Highlighted row has not occurred!07-18-2023 influenza virus vaccine, unspecified formulation Nancy BARRIENTOS [facility] [place] NEGATED: Highlighted row has not occurred!06-20-2023 influenza virus vaccine, unspecified formulation Filiberto Cramer [facility] Payers Date Payer Category Payer Self-pay [id number] 2022 Medicaid [place] [id number] 2022-Present [address] [place] [address] [id number] 2022 Medicaid [id number] 2006 Private Health Insurance [id number] 1984 Unknown [id number] 2.840.1.985651.3.579.2.6 47 1984 Unknown [id number] 2.840.1.829430.3.579.2.1 74 1984 Unknown [id number] 216.840.1.695205.3.579.2.5 93 1984 Unknown [id number] 216.840.1.770675.3.579.2.5 93 1984 Unknown [id number] 2.16.840.1.723182.3.579.2.5 93 1984 Unknown [id number] 2.16.840.1.252378.3.579.2.5 93 1984 Unknown [id number] 2.16.840.1.671688.3.579.2.5 93 1984 Unknown [id number] 2.16.840.1.614333.3.579.2.5 93 1984 Unknown [id number] 2.16.840.1.015691.3.579.2.5 93 1984 Unknown [id number] 2.16.840.1.702458.3.579.2.1 259 1984 Unknown [id number] 2.16.840.1.736805.3.579.2.1 259 1984 Unknown [id number] 2.16.840.1.880500.3.579.2.1 259 1984 Unknown [id number] 2.16.840.1.841586.3.579.2.7 27 1984 Unknown [id number] 2.16.840.1.019619.3.579.2.7 27 1984 Unknown [id number] 2.16.840.1.609242.3.579.2.7 27 1984 Unknown [id number] 2.16.840.1.101818.3.579.2.7 27 1984 Unknown [id number] 2.16.840.1.828510.3.579.2.7 27 1984 Unknown [id number] 2.16.840.1.178712.3.579.2.7 27 1984 Unknown [id number] 2.16.840.1.069158.3.579.2.7 27 1984 Unknown [id number] 2.16.840.1.410076.3.579.2.7 27 1984 Unknown [id number] 2.16.840.1.261274.3.579.2.7 27 1984 Unknown [id number] 2.16.840.1.184568.3.579.2.7 27 1984 Unknown [id number] 2.16.840.1.620928.3.579.2.7 27 1984 Unknown [id number] 2.16.840.1.926808.3.579.2.7 27 1984 Unknown [id number] 2.16.840.1.978131.3.579.2.7 27 1984 Unknown [id number] 2.16.840.1.855774.3.579.2.7 27 1959 Private Health Insurance [id number] 1.2.840.792803.1.13.239.2.7 .3.789040.315 Unknown [id number] 2.16.840.1.866554.3.579.2.5 31 Social History Date Type Detail Facility Start: 05-31-2020 End: 07-24-2023 Tobacco smoking status [facility] Never smoker [facility] Start: 05-31-2020 End: 05-06-2023 Tobacco use and exposure Never used [place] Sex Assigned At Not on file [employer] [facility] Exposure to SARS-CoV -2 (event) [facility] [place] Tobacco smoking status Never [facility] Start: 07-03-2023 End: 07-04-2023 Sex Assigned At Female [employer] Other Start: 1985 Sex Assigned At Female [facility] Start: 07-31-2023 End: 08-04-2023 Alcohol intake Ex-drinker (finding) [facility] Start: 07-03-2023 End: 07-04-2023 History of Social [...] Gender identity Identifies as female gender (finding) [facility] Start: 05-06-2023 Sexual orientation Heterosexual (finding) [facility] Medical Equipment Procedure Code Equipment Code Equipment Origin al Text Equipment Identifier Dates Anterior lumbar interbody fusion (ALIF) STRATOFUSE [id number] FDA Start: 12-06-2019 Anterior lumbar interbody fusion (ALIF) Orthopaedic bone screw, non-bioabsorbable, non-sterile +[id number] FDA Start: 12-06-2019 Anterior lumbar interbody fusion (ALIF) Orthopaedic bone screw, non-bioabsorbable, non-sterile +[id number] FDA Start: 12-06-2019 Anterior lumbar interbody fusion (ALIF) Bone-screw internal spinal fixation system, non-sterile +[id number] FDA Start: 12-06-2019 Anterior lumbar interbody fusion (ALIF) Bone-screw internal spinal fixation system, non-sterile +[id number] FDA Start: 12-06-2019 Anterior lumbar interbody fusion (ALIF) Spinal fusion graft kit ()[id number]( 15) [id number] FDA Start: 12-06-2019 Anterior lumbar interbody fusion (ALIF) Spinal bone screw, non-bioabsorbable ()[id number] FDA Start: 12-06-2019 Anterior lumbar interbody fusion (ALIF) Metallic spinal fusion cage, non-sterile ()[id number] FDA Start: 12-06-2019 Anterior lumbar interbody fusion (ALIF) Bone-screw internal spinal fixation system, non-sterile +[id number] FDA Start: 12-06-2019 Functional Status Date Assessment Result Facility 07-24-2023 Functional Status N/A [facility] 07-18-2023 [facility] Functional Status N/A [facility] 06-20-2023 Functional Status N/A [facility] Care Clinical Notes 04-17-2021 to 08-04-2023 Marta Puente MD - 08/04/2023 11:20 AM ESTLaboratoryRadiologyLaboratoryLaboratory Note Date & Type Note Facility 08-04-2023 History of Present illness Narrative Subjective Patient ID: Jessica Griffiths is a 37 y.o. female who presents for Thyroid Nodule (Follow up biopsy 07/14/23). Pt saw Dr Jonas and was started on methimazole. Getting repeat [...] 5 mo Hyperthyroidism (CMS/HCC) Management per Dr Jonas documented in this encounter [facility] 07-24-2023 Evaluation + Plan note Future Scheduled TestsLab Miscellaneous-LC 07/24/23Echo Transthoracic Complete 07/24/23 [facility] [place] 07-18-2023 Evaluation + Plan note Diagnostic Tests PendingT3 Reverse, Serum 07/18/23Thyroid Perox.tpo Ab 07/18/23TgAb+Thyroglobulin,NIGEL or KELVIN 07/18/23 [facility] 07-18-2023 Hospital Discharge instructions Patient Education 07/18/2023 [...] surgery. Follow these instructions at home: Take brnn-qic-hzimran and prescription medicines only as told by [...] condition. Where to find more information National [place] of Diabetes and Digestive and Kidney Diseases: [...] Document Reviewed: 08/02/2022 Elsevier Patient Education 2022 [employer] Follow Up Care 07/18/2023 07:34:13 With:Nancy BARRIENTOS MD, FAM Address: When: only if needed [facility] 06-21-2023 Evaluation + Plan note Diagnostic Tests PendingT3 Free 06/21/23 Future Scheduled TestsCBC w/ Auto Diff 06/20/23Comprehensive Metabolic Panel 06/20/23Free T4 06/20/23 [facility] 06-20-2023 Hospital Discharge instructions Patient [...] few weeks. Home care treatment may include: Whyt-zyj-hclmckk pain relievers. A warm, moist cloth placed over the ear. Severe cases may require a procedure to insert tubes in the ears (tympanostomy tubes) to drain the fluid. Follow these instructions at home: Take idqd-xnw-myjvpye and prescription medicines only as told by [...] provider. Document Revised: 10/04/2021 Document Reviewed: 10/04/2021 [employer] Patient Education 2022 [employer] 06/20/2023 19:03:16 Thyroid Nodule Thyroid Nodule [...] in your thyroid nodule or nodules. Take wcig-grr-jdzchlh and prescription medicines only as told by [...] provider. Document Revised: 04/22/2022 Document Reviewed: 04/22/2022 [employer] Patient Education 2022 [employer]. Follow Up Care 06/20/2023 07:23:01 With:Nancy BARRIENTOS MD, FAM Address: [address] [place], [place] [id number]- When: Unknown [facility] 06-20-2023 Evaluation + Plan note Future Scheduled TestsT4 Total 06/20/23CBC w/ Auto Diff 06/20/23Comprehensive Metabolic Panel 06/20/23T3 Free 06/20/23T3 Uptake 06/20/23Thyroid Stimulating Hormone 06/20/23Free T4 06/20/23 [facility] 10-01-2022 Note CONSULTATION CONSULTATION DATE: [...] our patients to inform us about any zegl-emr-dckanvh medications or herbal remedies/nutritional supplements/alternative remedies. 2. [...] options with their primary care provider. [facility] 06-11-2022 Note CONSULTATION CONSULTATION DATE: 06/11/2022 [...] and concurs. CC: Nancy Barrientos M.D. [facility] 03-05-2022 Note PAIN MANAGEMENT CONS ULTATION [...] along this region. CC: Dr. Barrientos [facility] 12-28-2021 Evaluation note Encounter Date Diagnosis [...] follow her up on an as-needed basis [employer] [facility] 06-13-2022 Evaluation + Plan note Diagnostic Tests Pending * Insulin Level Total 12/03/21 * T3 Free 12/03/21 * FSH Level 12/03/21 Future Scheduled Tests Laboratory* COVID-19 [facility] 07/13/21 [facility]05-19-2022 NoteCONSULTATION CONSULTATION DATE: 11/08/2021 This [...] does plan on seeing Dr. Damon in [place] for. Activities that aggravate her neck are [...] of care and would like to proceed. [facility] Signed and Approved by: ISAURA KELLY . 11/12/2021 15:05:00[facility]01-21-2022 Evaluation + Plan note Future Scheduled Tests Laboratory* COVID-19 ([facility] 07/13/21 [facility]10-26-2021 Evaluation note* Encounter Date Diagnosis Assessment Notes Treatment Notes Treatment Clinical Notes Mar, Spondylolisthesis at L5-S1 level (ICD-10 - M43.17) I answered a number of questions for the patient. I think a transforaminal injection may be beneficial. I also believe that she could potentially benefit from a dorsal column stimulator. She is seeing a another neurologist at [facility] and I am interested in what medication changes are made. I will see the patient again in 3 months and review this with her. I looked at the picture of the spine today she has good bone formation and her MCFP hardware is intact. Because of the persistent [...] region with neurogenic claudication (ICD-10 - M48.062) [employer] Other evaluation + Plan note Future Appointments Appointment Date:06/27/2023 07:30:00 AM Scheduled Provider: Location:.[facility] Appointment Type:US Thyroid/Neck/Chest (FT) Appointment Date:06/27/2023 08:00:00 AM Scheduled [facility]: [facility] Type:CV EKG (FT) Appointment Date:07/29/2023 12:40:00 PM Scheduled Provider:Nancy BAR[facility]ENTOS MD [facility] Type: Open Future Scheduled Tests Laboratory* UA With Cult Reflex 06/24/23 * CBC w/ Auto Diff 06/20/23 * Comprehensive Metabolic Panel 06/20/23 * Lipid Panel 06/24/23 * Free T4 06/20/23 Radiology* US Thyroid 06/27/23 [facility] [place] Evaluation + Plan note Future Appointments Appointment Date:07/29/2023 12:40:00 PM Scheduled Provider:Nancy BARRIENTOS MD [facility] Type: Open Future Scheduled Tests Laboratory* UA With Cult Reflex 06/24/23 * CBC w/ Auto Diff 06/20/23 * Comprehensive Metabolic Panel 06/20/23 * Lipid Panel 06/24/23 * Free T4 06/20/23 Radiology* US FNA w/ Guidance, first lesion 06/27/23 * NM Thyroid Imaging w/ Uptk Multiple 06/27/23 [facility] Future Appointments Appointment Date:09/11/2023 08:00:00 AM Scheduled Provider: Location:.[facility] Appointment Type:CV Echo (FT) Diagnostic Tests Pending * T3 Free 09/10/23 * Thyrotropin Receptor Antibody, Serum 09/10/23 Future Scheduled Tests Laboratory* Lab Miscellaneous-LC 07/24/23 Radiology* Echo Transthoracic Complete 09/11/23 [facility] noteNo InformationNortP[facility] Other evaluation noteNo assessment information available [facility] Work Phone: Evaluation note* [...] ALIF-Doctor Tinoco Hospitalization History see surgical hx [facility] Other Hospital course Narrative No data available for this section [facility] No data available for this section [facility] No data available for this section [facility] Summary Purpose Family History No Family History Records Found Relationship Condition Age at Onset Recorded Date/T rody Not Specified Healthy female adult Unknown father Osteoarthritis Unknown Degeneration of intervertebral disc Unkno wn Advance Directives No Advanced Directives Records FoundDocuments on File Type Date Recorded Patient Supervisor Correspondence Section Expl anation ACP-Advance Directive ACP-Power of Street And Building Decorator Advance Directive Response Recorded Date/ Time Advance Directives No September 02 018 11:39am Discharge Instructions * Instructions* Kathy Ghosh MD - 05/31/2020 Ibuprofen or Aleve as directed * Attachments The following attachments cannot be sent through Care Everywhere. * Chest Pain: Musculoskeletal (Monegasque) documented in this encounter Assessments Diagnosis Chest wall pain Painful respiration Reason for Referral Reason Evaluate and Treat C onsider for Dorsal Column Stimulator Diagnosis 1 Spondylolisthesis at L5-S1 level (M43.17) Referral Organization [facility] Ne urosurgery Referring Provider First Name Ric Referring Provider Last Name Tinoco Referring Provider Specialty Neurologica l Surgery Referred Organization Unknown Facility Referred Provider Mansoor Summers Referred Provider Specialty Pain Medicin e Referral Priority Routine Additional Source Comments INFORMATION SOURCE (unrecogn ized section and content) DATE CREATED AUTHOR 01/14/2020 [facility] DATE CREATED AUTHOR AUTHOR'S ORGANIZ ATION 06/01/2020 [facility] DATE CREATED AUTHOR AUTHOR'S ORGANIZ ATION 11/06/2022 [facility] DATE CREATED AUTHOR AUTHOR'S ORGANIZ ATION 08/01/2023 [facility] DATE CREATED AUTHOR AUTHOR'S ORGANIZ ATION 08/05/2023 [facility] EPIC DATE CREATED AUTHOR AUTHOR'S ORGANIZ ATION 09/14/2023 [facility] [place] Reason for Visit (unrecogniz ed section and [...] July 14, 2023 End: July 14, 2023 [employer] Relationship Specialty Start Date End Date Nancy Barrientos MD [address] [place] [address] PCP - General 05/07/23 [employer] Operator [employer] T[employer] Relationship Specialty Start Date End Date Nancy Barrientos MD [address] [place] [address] PCP - General 05/07/23 Goals (unrecognized section and content) Goals may [...] THE PRIMARY CLINICAL RECORDS. [facility] [place] [employer] [facility]. provides no warranty or guarantee of the accuracy or completeness of information in this document.
== END 2023-09-23 12:26 | disposition home or self-care (01) ==
LOC: PM 12:25
PROVIDERS: Visit Provider Anesthesiology Pain Medicine
DX: M47.812 Spondylosis without myelopathy or radiculopathy, cervical region (principal); M62.838 Other muscle spasm
CPT/HCPCS: 20552

== ENCOUNTER 2023-10-23 09:54 | Outpatient (OUT) | payer MEDICAID, SELFPAY ==
--- OUTSIDE RECORDS SUMMARY | 2023-10-23 10:08 | XMS_ITS | CCD ---
Author Organization [facility] Care Team Providers Care Proced Tech Name Role Phone UNKNOWN, PROVIDER Admitting Unavailable UNKNOWN, PROVIDER Attending Unavailable UNKNOWN, PHYSICIAN Referring Unavailable UNKNOWN, PHYSICIAN Primary Care Unavailable Nancy Barrientos Primary Care Provider [phone] KATHY GHOSH Attending Unavailable NANCY BARRIENTOS Primary Care Unavailable Nancy BARRIENTOS Primary Care Physician [phone] Ric Tinoco Unavailable JOSEFA ., DR HERB [...] RIVERO ., DR HERB Melgar Attending Unavailable MISShantel, DR MURRIETA Primary Care Unavailable JOSEFA ., DR HERB Melgar Consulting Unavailable JOSEFA ., DR HERB Melgar Admitting Unavailable ROBIN .ISAURA Consulting Unavailable MD Ruben Barrientos Primary Care Provider MD Marta Puente Jr Attending Provider UnaMarta Killian Jr Attending Unavailable Marta Puente Jr Admitting Unavailable Ruben Barrientos Primary Care Unavailable Nancy Barrientos MD Primary Care Provider Nancy BARRIENTOS Primary Care Physician MARTA PUENTE Attending Unavailable GUMYRAMELKEYSHA, PAUL Referring Unavailable KRAIG PARK Attending Unavailable MARTA PUENTE Attending Unavailable NANCY BARRIENTOS Referring Unavailable PETRA MORELAND Attending Unavailable Filiberto Cramer Attending Unavailable Gudimella, Paul Attending Unavailable Bethmelkeysha, Paul Attending Unavailable Bethmelkeysha, Paul Attending Unavailable Anitra BARRIENTOS Attending Unavailable Nancy BARRIENTOS Attending Unavailable aNncy BARRIENTOS Attending Unavailable Nancy BARRIENTOS Attending Unavailable EBER CASTANEDA JOSE Admitting Unavailable EBER CASTANEDA Attending Unavailable SUMI, AHMAD F Attending Unavailable SUMI, AHMAD F Admitting Unavailable Filiberto Cramer Admitting Unavailable Filiberto Cramer Attending Unavailable Andredimella, Paul Attending Unavailable Gudimella, Paul Admitting Unavailable SUMI, AHMAD F Admitting Unavailable SUMI, AHMAD F Attending Unavailable Gudimella, Paul Admitting Unavailable Gudimella, Paul Attending Unavailable Gudimella, Paul Referring Unavailable Lakshmipathy, Narendranath Admitting Unava ilable Lakshmipathy, Narendranath Attending Unava ilable Lakshmipathy, Narendranath Referring Unava ilable Gudimella, Paul Admitting Unavailable Gudimella, Paul Attending Unavailable Gudimella, Paul Referring Unavailable Allergies Allergy Classification Reported Allergen(s) Allergy Type Date of Onset Reaction(s) Facility (1 source) Adhesive agent; Translations: [Unknown] Propensity to adverse reactions (disorder) 9 [facility] Repository (16 sources) Adhesive Tape; Translations: [Tape] Drug allergy Eruption of skin (disorder) [facility] (20 sources) Latex; Translations: [Latex] Drug allergy 5 Rash [facility] Other (3 sources) adhesive bandages Propensity to adverse reactions rash [facility] Other (1 source) Adhesive agent Drug allergy (disorder) 6 [facility] Repository (1 source) Adhesive agent Drug allergy (disorder) 2 [facility] Repository (1 source) Adhesive Tape Drug allergy (disorder) 0 [facility] Repository (3 sources) Wound Dressing Adhesive Drug [...] Status: Ordered baclofen 10 mg oral tablet (17 sources) gamma-Aminobutyr ic Acid-ergic Agonist Start: 03-23-2023 [...] course, # 28 cap(s), Refills(s) 0, Pharmacy: [facility], 168, cm, 07/11/20 8:27:00 EST, [...] Daily, # 90 tab(s), Refills(s) 1, Pharmacy: [facility], 168, cm, 07/11/20 8:27:00 EST, Height/Length Dosing, 64.1, kg, 07/11/20 8:27:00 EST, Weight Dosing Start Date: 11/23/20 Status: Ordered cyclobenzaprine hydrochloride 10 mg oral tablet (4 sources) Muscle Relaxant Start: 09-04-2017 End: 12-08-2019 take 10 mg by mouth three times daily Cyclobenzaprine Active 10 MG PO Three times daily December 07, 2019 11:00pm 1 ml erenumab-aooe 140 mg/ml auto-injector (19 sources) Start: 11-30-2019 Aimovig 140 MG/ML injection [...] nasal route once daily Flonase 0.05 mg/inh Sweeny 2 spray(s), Nasal, Daily for 7 day(s), 16 gm, Refill(s) 0, each nostril, [facility], 168, cm, 06/20/23 18:45:00 EST, Height/Length Dosing, 58.4, kg, 06/20/23 18:45:00 EST, Weight Dosing Start Date: 06/20/23 Stop Date: 06/27/23 Status: Ordered gabapentin 100 mg oral capsule (20 sources) Anti-epileptic Agent Start: 10-07-2023 take 1 capsule by mouth once daily gabapentin 100 mg Cap 100 mg = 1 cap(s), Oral, Daily, Refills(s) 0 Start Date: 10/07/23 Status: Ordered Start: 11-08-2021 gabapentin 600 mg Tab Refills(s) [...] BID, # 180 tab(s), Refills(s) 1, Pharmacy: [facility], 168, cm, 07/11/20 8:27:00 EST, Height/Length Dosing, 64.1, kg, 07/11/20 8:27:00 EST, Weight Dosing Start Date: 08/22/20 Status: Ordered loratadine 10 mg oral tablet (3 sources) Start: 02-23-2020 take 1 tablet by mouth once daily loratadine 10 mg Tab 10 mg = 1 tab(s), Oral, Daily, # 90 tab(s), Refills(s) 1, Pharmacy: [facility], 168, cm, 02/23/20 10:40:00 EDT, Height/Length Dosing, 65, kg, 02/23/20 10:40:00 EDT, Weight Dosing Start Date: 02/23/20 Status: Ordered Start: 11-30-2019 take 1 capsule by [facility] once daily loratadine (CLARITIN) 10 MG [...] Nausea/Vomiting, # 10 tab(s), Refills(s) 0, Pharmacy: [facility], 168, cm, 07/10/20 13:24:00 EST, Height/Length Dosing, 62.1, kg, 07/10/20 13:24:00 EST, Weight Dosing Start Date: 07/10/20 Status: Ordered OXcarbazepine 300 mg oral tablet (20 sources) Anti-epileptic Agent Start: 03-10-2023 take 0.5 [...] Active oxybutynin chloride 5 mg oral tablet (14 sources) Cholinergic Muscarinic Antagonist Start: 10-07-2023 take 1 tablet by mouth three times daily as needed oxybutynin 5 mg Tab 5 mg = 1 tab(s), Oral, TID, PRN for urinary discomfort, for bladder symptoms, # 30 tab(s), Refills(s) 0, Pharmacy: [facility], 168, cm, 10/07/23 10:32:00 EDT, Height/Length Dosing, 61, kg, 10/07/23 10:32:00 EDT, Weight Dosing Start Date: 10/07/23 Status: Ordered Start: 05-26-2020 take 1 tablet by jaden th twice daily as needed oxybutynin 5 mg Tab 5 mg = 1 tab(s), Oral, BID, PRN for urinary discomfort, # 60 tab(s), Refills(s) 2, Pharmacy: [facility], 168, cm, 05/26/20 16:32:00 EST, Height/Length Dosing, 64, kg, 05/26/20 16:32:00 EST, Weight Dosing Start Date: 05/26/20 Status: Ordered take 1 tablet by jaden th every twenty-four hours in the morning oxybutynin XL (Ditropan-XL) 5 MG 24 hr tablet Take 5 mg by mouth in the morning. 0 Active take 1 tablet by jaden th once daily oxybutynin (DITROPAN-XL) 5 MG extended release tablet Take 5 mg by mouth daily 0 Active oxyCODONE hydrochloride 5 mg oral capsule (1 source) Opioid Agonist Start: 12-08-2019 take 5-10 mg by mouth every six hours Oxycodone Active 5 - 10 MG PO Q6H 60 December 08, 2019 pantoprazole 40 mg delayed release oral tablet (1 source) Proton Pump Inhibitor Start: 02-06-2021 take 1 tablet by mouth once daily 30 minutes before breakfast Protonix 40 mg Tab-EC 40 mg = 1 tab(s), Oral, Daily, Take 30 minutes before breakfast, # 30 tab(s), Refills(s) 5, Pharmacy: [facility], 168, cm, 07/11/20 8:27:00 [...] hydrochloride 10 mg oral tablet (2 sources) beta-Adrenerg ic Nat Start: 07-24-2023 take 1 tablet by mouth once propranolol 10 mg Tab 10 mg = 1 tab(s), Oral, Once, # 1 tab(s), Refills(s) 0, Pharmacy: [facility], 168, cm, 07/24/23 13:48:00 EST, Height/Length Dosing, 61, kg, 07/24/23 13:48:00 EST, Weight Dosing Start Date: 07/24/23 Status: Ordered Protonix 40 mg Tab-EC (3 sources) Start: 02-06-2021 take 1 tablet by mouth once daily 30 minutes before breakfast Protonix 40 mg Tab-EC 40 mg = 1 tab(s), Oral, Daily, Take 30 minutes before breakfast, # 30 tab(s), Refills(s) 5, Pharmacy: [facility], 168, cm, 07/11/20 8:27:00 EST, Height/Length Dosing, 64.1, kg, 07/11/20 8:27:00 EST, Weight Dosing Start Date: 02/06/21 Status: Ordered rimegepant 75 mg disintegrating oral tablet (4 sources) Start: 10-07-2023 take 1 tablet by mouth every week as needed Nurtec ODT 75 mg oral tablet, disintegrating TAKE ONE TABLET BY MOUTH NEEDED FOR MIGRAINE. MAX OF TWO DAYS PER WEEK. Start Date: 10/07/23 Status: Ordered Start: 01-25-2021 take 1 tablet under the [...] Status: Ordered tiZANidine 4 mg oral tablet (17 sources) Central alpha-2 Adrenergic Agonist Start: 03-24-2023 [...] Ordered traMADol hydrochloride 50 mg oral tablet (15 sources) Opioid Agonist Start: 03-26-2023 take 1 [...] Start: 01-18-2022 take 1 tablet by jaden twice daily valacyclovir 1 g Tab 1 gram = 1 tab(s), Oral, BID, # 60 tab(s), Refills(s) 2, Pharmacy: [facility], 168, cm, 11/08/21 9:50:00 EDT, Height/Length Dosing, 65.4, kg, 11/08/21 9:50:00 EDT, Weight Dosing Start Date: 01/18/22 Status: Ordered Start: 11-23-2020 take 1 tablet by jaden twice daily valacyclovir 1 g Tab 1 gram = 1 tab(s), Oral, BID, # 60 tab(s), Refills(s) 2, Pharmacy: [facility], 168, cm, 07/11/20 8:27:00 EST, Height/Length Dosing, 64.1, kg, 07/11/20 8:27:00 EST, Weight Dosing Start Date: 11/23/20 Status: Ordered Start: 11-23-2020 take 1 tablet by jaden twice daily valacyclovir 1 g Tab 1 gram = 1 tab(s), Oral, BID, # 60 tab(s), Refills(s) 2, Pharmacy: [facility], 168, cm, 07/11/20 8:27:00 EST, Height/Length Dosing, 64.1, kg, 07/11/20 8:27:00 EST, Weight Dosing Start Date: 11/23/20 Status: Ordered Completed/Discontinued Medications Medication Drug Class(es) Dates Sig (Normalized) Sig (Original) acetaminophen 325 mg / HYDROcodone bitartrate 5 mg oral tablet (2 sources) Opioid Agonist Start: 09-12-2017 End: 11-30-2019 take 1 tablet by mouth every four to six hours Hydrocodone-Acetami nophen ([place]) 5-325 mg tablet Discontinued 1 TAB PO EVERY 4-6 HOURS September 12, 2017 November 30, 2019 9:37am Start: 09-04-2017 End: 09-12-2017 take 1 tablet by mouth once daily at bedtime Hydrocodone-Acetaminophen ([place]) 5-325 mg Tablet Discontinued 1 TAB PO [...] hours Ibuprofen Discontinued 600 MG PO Q6H September 11, 2017 11:00pm November 30, 2019 [...] Date Documented Da te Episodic/Chronic Cardiac dysrhythmias (6 sources) Palpitations; Translations: [Palpitations] Onset: 4 Episodic Esophageal disorders (20 sources) Gastroesophageal reflux disease; Translations: [Gastroesophageal reflux disease without esophagitis] Onset: 4 02-01-2019 Chronic Headache; including migraine (20 sources) Migraine; Translations: [Migraine variants] 03-31-2020 Chronic Heart valve disorders (6 sources) Heart murmur; Translations: [Cardiac murmur, unspecified] Onset: 4 Episodic Intestinal infection (15 sources) Bacterial overgrowth syndrome 08-07-2020 Episodic Miscellaneous mental health disorders (15 sources) Chronic insomnia 08-17-2019 Chronic Nausea and vomiting (2 sources) Nausea 07-10-2020 Episodic Nonmalignant breast conditions (3 sources) Fibrocystic disease of breast; Translations: [Diffuse cystic mastopathy of right breast] Chronic Nonspecific chest pain (16 sources) Chest wall pain; Translations: [Atypical chest pain] 07-06-2019 Episodic Other acquired deformities (3 sources) Spondylolisthesis L5/S1 level; Translations: [Spondylolisthesis, lumbosacral region] Episodic Other acquired deformities (4 sources) Lumbar spondylolisthesis; Translations: [Spondylolisthesis, lumbar region] 06-04-2023 Episodic Other diseases of bladder and urethra (16 sources) Detrusor overactivity; Translations: [Overactive bladder] Onset: 4 07-10-2020 Chronic Other female genital disorders (3 sources) Dyspareunia due to non-psychogenic cause in the female; Translations: [Other specified dyspareunia] Chronic Other gastrointestinal disorders (2 sources) Abdominal bloating 07-11-2020 Episodic Other gastrointestinal disorders (20 sources) Alteration in bowel elimination 06-27-2020 Episodic Other gastrointestinal disorders (15 sources) Chronic constipation with overflow 08-07-2020 Episodic Other gastrointestinal disorders (2 sources) Diarrhea 07-10-2020 Episodic Other gastrointestinal disorders (15 sources) Fecal soiling co-occurrent and due to fecal incontinence 06-27-2020 Episodic Other gastrointestinal disorders (2 sources) Incontinence of feces 07-11-2020 Episodic Other gastrointestinal disorders (1 source) Dysphagia; Translations: [Dysphagia, unspecified] Onset: 4 Episodic Other gastrointestinal disorders (7 sources) Swallowing painful 07-18-2023 Episodic Other nervous system disorders (3 sources) Chronic pain; Translations: [Other chronic pain] Chronic Other nervous system disorders (4 sources) Other specified mononeuropathies of right lower limb; Translations: [OTH SPEC MONONEUROPATH RT LOW LIMB] Onset: 3 Chronic Other nervous system disorders (5 sources) Other chronic pain; Translations: [OTHER CHRONIC PAIN] Onset: 2 Chronic Other nervous system disorders (15 sources) Sensory disorder of smell and/or taste 03-31-2020 Episodic Other nutritional; endocrine; and metabolic disorders (15 sources) 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 Other screening for suspected conditions (not mental disorders or infectious disease) (15 sources) Thyroid function tests abnormal; Translations: [Abnormal results of thyroid function studies] Onset: 3 Episodic Other skin disorders (7 sources) Foot callus 11-08-2021 Episodic Other skin disorders (5 sources) Mass of neck; Translations: [Localized swelling, mass and lump, neck] Onset: 4 07-04-2023 Episodic Other upper respiratory disease (10 sources) Allergic rhinitis; Translations: [Allergic rhinitis, unspecified] [...] [Breast implant status] Chronic Residual codes; unclassified (15 sources) Chill 03-31-2020 Episodic Residual codes; unclassified [...] storm; Translations: [Hyperthyroidism] Onset: 4 Chronic Unclassified (11 sources) Body mass index 20-24 - normal 05-26-2020 Unclassified (4 sources) LOW BACK PAIN, UNSPECIFIED; Translations: [LOW BACK PAIN, UNSPECIFIED] Onset: 2 Unclassified (6 sources) Patient encounter status 06-24-2023 Urinary tract infections (15 sources) Urinary tract infectious disease 05-26-2020 Episodic Viral infection (15 sources) Herpes simplex 02-01-2019 Episodic Past or [...] with and (suspected) exposure to COVID19] Unclassified (15 sources) None (qualifier value) 12-11-2012 Unclassified (20 sources) Onset: 09-23-2004 Resolved: 03-09-2013 12-29-2014 Comment on above: pi Unclassified (1 source) LOW BACK PAIN, UNSPECIFIED; Translations: [LOW BACK PAIN, UNSPECIFIED] Onset: 06-11-2022 Results Test Name Value Interpretation Reference Range Facil ity T3 Freeon 10-22-2023 Free T3 [Mass/Vol] 2.9 pg/mL Invalid Interpretation Code 2.0-4.4 [facility] Comment on above: Result Comment: Perf ormed at: [facility] [address] [id number] PhD Mahnaz Conklin Performed By: #### 2 [id number] ####[facility] [id number] [place] [address] CHEMISTRYOrdered By: SYSTEM SYSTEM on 10-21-2023 Free T4 [Mass/Vol] 0.65 ng/dL Normal 0.58 - 1.64 ng/dL Remisol Chem TSH Qn 4.41 m[IU]/L Normal 0.34 - 5.60 mcIU/mL Remisol Chem Consent for Treatmenton 09-23 Consent for Treatment [id number] Normal [facility] Free T4on 10-21-2023 Free T4 [Mass/Vol] 0.65 ng/dL Normal 0.58-1.64 [facility] Comment on above: Performed By: #### 2 [id number] ####[facility] [id number] [place] [address] Physician Orderon 10-21-2023 Physician Order [id number] Normal [facility] TSHon 10-21-2023 TSH Qn 4.41 m[IU]/L Normal 0.34-5.60 [facility] Comment on above: Performed By: #### 2 [id number] ####[facility] [id number] [place] [address] Ambulatory Visit Summaryon 0 10-07-2023 Ambulatory Visit Summary JESSICA GRIFFITHS :1985 Visit Date:10/07/2023 Ambulatory Visit Instructions Your Diagnosis Detrusor instability of bladder Thyroiditis, subacute Your Care Team Attending Physician - Nancy BARRIENTOS MD Primary Care Physician - Nancy BARRIENTOS MD This Is Your Medications List oxybutynin (oxybutynin 5 mg Tab) Contact prescribing physician if questions or concerns baclofen (baclofen 10 mg Tab) erenumab (Aimovig SureClick 70 mg/mL subcutaneous solution) estradiol (Estrace 1 mg Tab) gabapentin (gabapentin 100 mg Cap) gabapentin (gabapentin 600 mg Tab) oxcarbazepine (Trileptal 300 mg Tab) rimegepant (Nurtec ODT 75 mg oral tablet, disintegrating) tizanidine (Zanaflex 4 mg oral capsule) tramadol (traMADOL 50 mg Tab) Procedures Performed Fine biopsy needle, device (07/14/2023), Caudal epidural (06/12/2020), ALIF - Anterior lumbar interbody fusion (12/06/2019), Removal of sebaceous cyst (06/19/2018), Breast augmentation (2006), laparoscopy, lumbar microdisectomy, wisdom teeth extracted. Discharge Vitals Temperature (Temporal Artery) 36.6 ?C Heart Rate (Peripheral) 66 Respiratory Rate 16 Blood Pressure 116/76 Height 168 cm Height 66 in Weight 61 kg Weight 134.2 lb BMI 21.61 What to do next You Need to Schedule the Following Appointments Follow Up with Nancy BARRIENTOS MD [facility] When: Only if needed Where: Medications What How Much When Instructions New oxybutynin (oxybutynin 5 mg Tab) 1 Tablets By Mouth 3 times a day as needed for for urinary discomfort for bladder symptoms Pickup at [facility] Unchanged baclofen (baclofen 10 mg Tab) See [...] if questions or concerns Unchanged gabapentin (gabapentin 100 mg Cap) 1 Capsules By Mouth Every day Contact prescribing physician if questions or concerns Unchanged gabapentin (gabapentin 600 mg Tab) Contact prescribing physician if questions or concerns Unchanged oxcarbazepine (Trileptal 300 mg Tab) See instructions take 1-2 tabs po qhs Contact prescribing physician if questions or concerns Unchanged rimegepant (Nurtec ODT 75 mg oral tablet, disintegrating) TAKE ONE TABLET BY MOUTH NEEDED FOR MIGRAINE. MAX OF TWO DAYS PER WEEK. Contact prescribing physician if questions or concerns Unchanged tizanidine (Zanaflex 4 mg oral capsule) See instructions take 1/ 2 - 1 tab po qhs Contact prescribing physician if questions or concerns Unchanged tramadol (traMADOL 50 mg Tab) 1 Tablets By Mouth 3 times a day Contact prescribing physician if questions or concerns Pharmacy Information [facility]: [id number] [phone] Allergies Latex Tape (Rash) Problems Ongoing - Any problem that you are currently receiving treatment for. Abnormal thyroid stimulating hormone level Acid reflux Allergic rhinitis BMI 21.0-21.9, adult Chronic constipation with overflow Chronic insomnia Detrusor instability of bladder Fecal soiling due to fecal incontinence GERD without esophagitis Heart murmur HSV infection Hyperthyroidism Intestinal bacterial overgrowth Lactose intolerance Lumbar disc herniation with radiculopathy Migraine headache Nodule of left lobe of thyroid gland Odynophagia Palpitations Prolapsed lumbosacral intervertebral disc Thyroiditis, subacute Variants of migraine Historical - [...] choosing us for your care. Education Materials Urinary Tract Infection, Adult A urinary tract infection (UTI) is an infection of any part of the urinary tract. The urinary tract includes the kidneys, ureters, bladder, and urethra. These organs make, store, and get rid of urine in the body. An upper UTI affects the ureters and kidneys. A lower UTI affects the bladder and urethra. What are the causes? Most urinary tract infections are caused by bacteria in your genital area around your urethra, where urine leaves your body. These bacteria grow and cause inflammation of your urinary tract. What increases the risk? You are more likely to develop this condition if: ? You have a (more content not included)... Normal [facility] Family Medicine Office/Clini c Noteon 10-07-2023 Family Medicine Office/Clinic Note Chief Complaint pt presents today c/o urinary urgency, frequency and dysuria x 1wk. denies fevers or n/v. needs tetanus History of Present Illness The patient is a 38-year-old female who is here with UTI symptomatology. The patient has been experiencing dysuria for approximately two weeks, accompanied by a persistent urge to urinate. She denies the presence of systemic symptoms such as fever or chills. Over the past two weeks, she has not utilized any wkmu-esu-jrrwpca or old antibiotics, nor has she utilized any prescription medications for bladder spasms or dysuria. Her caffeine intake is minimal, although she occasionally consumes an afternoon cup of coffee. She acknowledges a history of urinary tract infections (UTIs) with consumption of soda, although she does not consume it frequently. She has previously been prescribed oxybutynin. Currently, she reports no vaginal discharge or yeast infection, but describes a sensation of irritation. Supplemental Information With her hypothyroidism, she was taken off of methimazole because her levels went very low. She is due to have lab work in another week. She is seeing Dr. Jonas in [place] for her thyroid. She has been trying to get disability for her back and migraines, but her pain management doctor does not fill them out. She has multiple files from pain management. She has been having issues with her neck. Review of Systems PHQ Score Initial Depression Screen Score: 2 SCORE See HPI otherwise negative Physical Exam Vitals & Measurements T: 36.6 ?C(Temporal Artery) HR: 66(Peripheral) RR: 16 BP: 116/76 SpO2: 100% HT: 66 in HT: 168 cm WT: 61 kg WT: 134.2 lb BMI: 21.61 The patient appears well groomed and adequately hydrated. The patient's head is normocephalic and atraumatic. Her conjunctivae are clear. Her pupils are symmetric. The patient's neck is very thin. I do not appreciate any thyromegaly. The patient's abdomen is soft and flat with hyperactive bowel sounds. No organomegaly. A vaginal exam is deferred. Palpation of the paraspinal musculature, flank, and lumbar spine is mildly tender, but seems to be more related to her chronic low back issues. She is relatively stiff with her posture, but has a normal gait. No discrete limp. The patient's skin is warm, dry, and moderately tanned. The patient is cooperative with good insight. No psychomotor agitation. Assessment/Plan 1. Detrusor instability of bladder (N32.81: Overactive bladder) Reviewed that the urinalysis is unremarkable in the office. Offering patient oxybutynin reduction in caffeine scheduled voiding and avoid baths or excess soap/feminine deodorant sprays etc. If this does not improve would need to reassess urinalysis. Ordered: Urnls Dip Stick Auto w/o Microscopy POC [id number] 2. Thyroiditis, subacute (E06.1: Subacute thyroiditis) Continue following with Dr. Jonas in [place] for management of the methimazole. 3. Lumbar disc herniation with radiculopathy (M51.16: Intervertebral disc disorders with radiculopathy, lumbar region) Chronic history of low back disability. I do not feel confident filling out paperwork at this time as I have not been part of her management team for this. I encouraged her to discuss this further with her neurologist. Orders: oxybutynin, 5 mg = 1 tab(s), Oral, TID, PRN for urinary discomfort, for bladder symptoms, # 30 tab(s), Refills(s) 0, Pharmacy: [facility], 168, cm, 10/07/23 10:32:00 EDT, Height/Length Dosing, 61, kg, 10/07/23 10:32:00 EDT, Weight Dosing Portions of this record may have been created with voice recognition artificial intelligence software, specifically [employer] and or [employer]. Substitutions may have occurred due to the inherent limitations of voice recognition and artificial intelligence software. Follow-up With When Contact Information Nancy BARRIENTOS MD, [facility] Only if needed Additional Instructions: Patient Education Urinary Tract Infection, Adult Problem List/Past Medical History Ongoing Abnormal thyroid stimulating hormone level Acid reflux Allergic rhinitis BMI 21.0-21.9, adult Chronic constipation with overflow Chronic insomnia Detrusor instability of bladder Fecal soiling due to fecal incontinence GERD without esophagitis Heart murmur HSV infection Hyperthyroidism Intestinal bacterial overgrowth Lactose intolerance Lumbar disc herniation with radiculopathy Migraine headache Nodule of left lobe of thyroid gland Odynophagia Palpitations Prolapsed lumbosacral intervertebral disc Thyroiditis, subacute Variants of migraine Historical Acute frontal sinusitis Change in bowel habits Chest pain, atypical Chills Disturbance of smell and taste None Sinusitis, acute frontal Urinary tract infection Procedure/Surgical History Fine biopsy needle, device (07/14/2023), Caudal epidural (06/12/2020), ALIF - Anterior lumba (more content not included)... Normal [facility] Comment on above: Result Comment: Elec tronically Signed By: Nancy BARRIENTOS MD\.br\Date and Time Signed: 10/07/23 10:56 EDT Patient Educationon 10-07-19 Patient Education Obstetrics and Gynecology Urinary Tract Infection, Adult A urinary tract infection (UTI) is an infection of any part of the urinary tract. The urinary tract includes the kidneys, ureters, bladder, and urethra. These organs make, store, and get rid of urine in the body. An upper UTI affects the ureters and kidneys. A lower UTI affects the bladder and urethra. What are the causes? Most urinary tract infections are caused by bacteria in your genital area around your urethra, where urine leaves your body. These bacteria grow and cause inflammation of your urinary tract. What increases the risk? You are more likely to develop this condition if: ? You have a urinary catheter that stays in place. ? You are not able to control when you urinate or have a bowel movement (incontinence). ? You are female and you: ? Use a spermicide or diaphragm for control. ? Have low estrogen levels. ? Are . ? You have certain genes that increase your risk. ? You are sexually active. ? You take antibiotic medicines. ? You have a condition that causes your flow of urine to slow down, such as: ? An enlarged prostate, if you are male. ? Blockage in your urethra. ? A kidney stone. ? A nerve condition that affects your bladder control (neurogenic bladder). ? Not getting enough to drink, or not urinating often. ? You have certain medical conditions, such as: ? Diabetes. ? A weak disease-fighting system (immunesystem). ? Sickle cell disease. ? Gout. ? Spinal cord injury. What are the signs or symptoms? Symptoms of this condition include: ? Needing to urinate right away (urgency). ? Frequent urination. This may include small amounts of urine each time you urinate. ? Pain or burning with urination. ? Blood in the urine. ? Urine that smells bad or unusual. ? Trouble urinating. ? Cloudy urine. ? Vaginal discharge, if you are female. ? Pain in the abdomen or the lower back. You may also have: ? Vomiting or a decreased appetite. ? Confusion. ? Irritability or tiredness. ? A fever or chills. ? Diarrhea. The first symptom in older adults may be confusion. In some cases, they may not have any symptoms until the infection has worsened. How is this diagnosed? This condition is diagnosed based on your medical history and a physical exam. You may also have other tests, including: ? Urine tests. ? Blood tests. ? Tests for STIs (sexually transmitted infections). If you have had more than one UTI, a cystoscopy or imaging studies may be done to determine the cause of the infections. How is this treated? Treatment for this condition includes: ? Antibiotic medicine. ? Pafl-rwu-vvxywpf medicines to treat discomfort. ? Drinking enough water to stay hydrated. If you have frequent infections or have other conditions such as a kidney stone, you may need to see a health care provider who specializes in the urinary tract (urologist). In rare cases, urinary tract infections can cause sepsis. Sepsis is a life-threatening condition that occurs when the body responds to an infection. Sepsis is treated in the hospital with IV antibiotics, fluids, and other medicines. Follow these instructions at home: Medicines ? Take fvop-nve-cjosere and prescription medicines only as told by your health care provider. ? If you were prescribed an antibiotic medicine, take it as told by your health care provider. Do not stop using the antibiotic even if you start to feel better. General instructions ? Make sure you: ? Empty your bladder often and completely. Do not hold urine for long periods of time. ? Empty your bladder after sex. ? Wipe from front to back after urinating or having a bowel movement if you are female. Use each tissue only one time when you wipe. ? Drink enough fluid to keep your urine pale yellow. ? Keep all follow-up visits. This is important. Contact a health care provider if: ? Your symptoms do not get better after 1?2 days. ? Your symptoms go away and then return. Get help right away if: ? You have severe pain in your back or your lower abdomen. ? You have a fever or chills. ? You have nausea or vomiting. Summary ? A urinary tract infection (UTI) is an infection of any part of the urinary tract, which includes the kidneys, ureters, bladder, and urethra. ? Most urinary tract infections are caused by bacteria in your genital area. ? Treatment for this condition often includes antibiotic medicines. ? If you were prescribed an antibiotic medicine, take it as told by your health care provider. Do not stop using the antibiotic even if you start to feel better. ? Keep all follow-up visits. This is important. This information is not intended to replace advice given to you by your health care provider. Make sure you discuss any questions you have with your health care provider. Document Revised: 01/19/2021 Document Revie (more content not included)... Normal [facility] T3 Freeon 09-13-2023 Free T3 [Mass/Vol] 1.5 pg/mL Low 2.0-4.4 [facility] Comment on above: Result Comment: Perf ormed at: [facility] [place] [address] [place], [place] [id number] PhD Mahnaz Conklin Performed By: #### 2 530333, [id number], 8297140, 7844941, 3287854 ####[facility] [address] [place] [address] Thyrotropin Receptor Antibod y, Serumon 09-13-2023 TSH receptor Ab Qn (S) <1.10 Invalid Interpretation Code 0.00-1.75 [facility] Comment on above: Result Comment: Perf ormed at: [facility] [address] [id number] MD Enrico Dean Performed By: #### 2 318987, [id number], 6092743, 0794348, 8357143 ####[facility] [address] [place] [address] CHEMISTRYOrdered By: SYSTEM SYSTEM on 09-10-2023 Albumin [...] for Treatmenton 08-22 Consent for Treatment [id number]#1.00TIFF Normal [facility] Free T4on 09-10-2023 Free T4 [Mass/Vol] ng/dL Low 0.58-1.64 [facility] Comment on above: Performed By: #### 2 111188, [id number], 1053998, 0943295, 8263402 ####[facility] [address] [place] [address] Hep Func Panelon 09-10-2023 Albumin [Mass/Vol] 4.2 g/dL Normal 3.3-5.0 [facility] Comment on above: Performed By: #### 2 939006, [id number], 4745427, 5625894, 3761768 ####[facility] [address] [place] [address] Albumin/Globulin (S) [Mass conc ratio] 1.4 Normal 1.1-2.2 [facility] Comment on above: Performed By: #### 2 570357, [id number], 7873568, 1763874, 9872468 ####[facility] [address] [place] [address] ALP [Catalytic activity/Vol] 66 Int._Unit/L Normal 21-98 [facility] Comment on above: Performed By: #### 2 166004, [id number], 6753321, 0077613, 2199244 ####[facility] [address] [place] [address] ALT No additional P-5'-P [Catalytic activity/Vol] 14 Int._Unit/L Normal 6-46 [facility] Comment on above: Performed By: #### 2 439813, [id number], 0049346, 8782851, 1721707 ####[facility] [address] [place] [address] AST [Catalytic activity/Vol] 22 Int._Unit/L Normal 5-43 [facility] Comment on above: Performed By: #### 2 968905, [id number], 2299622, 2799729, 2868214 ####[facility] [address] [place] [address] Bilirubin [Mass/Vol] 0.5 mg/dL Normal 0.0-1.1 [facility] Comment on above: Performed By: #### 2 736133, [id number], 1771391, 5535835, 0632882 ####[address] [address] Bilirubin.direct [Mass/Vol] 0.1 mg/dL Normal 0.0-0.4 [facility] Comment on above: Performed By: #### 2 615953, [id number], 4516732, 0429376, 3321767 ####[address] [address] Bilirubin.indirect [Mass or moles/Vol] 0.4 mg/dL Normal 0.1-0.9 [facility] Comment on above: Performed By: #### 2 626331, 5106574904, 8559655, 3401221, 4725215 ####[address] [place] [address] Globulin (S) [Mass/Vol] 3.0 g/dL Normal 1.4-4.0 [facility] Comment on above: Performed By: #### 2 408244, 9857979920, 3291411, 1384403, 2435615 ####[address] [place] [address] Protein [Mass/Vol] 7.2 g/dL Normal 6.0-7.8 [facility] Comment on above: Performed By: #### 2 246065, 4966035738, 6042622, 3795678, 3842664 ####[address] [place] [address] Physician Orderon 09-10-2023 Physician Order [id number]#1.00TIFF Normal [facility] TSHon 09-10-2023 TSH Qn 68.80 m[IU]/L High 0.34-5.60 [facility] Comment on above: Performed By: #### 2 603690, 9619334472, 4522972, 8757685, 3145801 ####[facility] [address] [place] [address] Consultation Noteon 08-12-19 Consultation Note [id number]#1.00TIFF Normal [facility] Insurance Correspondenceon 0 08-05-2023 Insurance Correspondence [id number]#1.00TIFF Normal [facility] Consultation Noteon 08-04-19 Consultation Note [id number]#1.00TIFF Normal [facility] .Thyroglobulin by RIAon 07-24 Thyroglobulin [Mass/Vol] 159 ng/mL High [facility] Comment on above: Result Comment: Conf irmed by dilution. This test was developed and its performance characteristics determined by [employer]. It has not been cleared or approved [...] quantitation limit is 2.0 ng/mL. Performed at: [facility] [address] [place] [id number] MD Yadiel Cornell Performed By: #### 7 [id number], 6459424, 49529057, 2388704, 281602802, 70928489 ####[facility] [address] [place] [address] T3 Reverseon 08-02-2023 T3.reverse [Mass/Vol] 31.2 ng/dL High 9.2-24.1 [facility] Comment on above: Result Comment: This test was developed and its performance characteristics determined by [facility]. It has not been cleared or approved by the Food and Drug Administration. Performed at: [address] [id number] MD Enrico Dean Performed By: #### 7 [id number], 7337431, 70238597, 3339655, 119171098, 86152522 ####[facility] [address] [place] [address] TgAb+Thyroglobulinon 024 Thyroglobulin Ab Qn 2.7 International_Unit /mL High 0.0-0.9 [facility] Comment on above: Result Comment: Thyr oglobulin Antibody measured by [employer] Performed at: [address] [id number] PhD Mahnaz Conklin Performed By: #### 7 00317985, 9883521, 14550980, 9451309, 182284704, 48432592 ####[facility] [address] [place] [address] Thyroid Perox.tpo Abon 08-02 TPO Ab Qn [IU]/mL Invalid Interpretation Code 0-34 [facility] Comment on above: Result Comment: Perf ormed at: [address] [id number] PhD Mahnaz Conklin Performed By: #### 7 [id number], 2744638, 12646063, 3495662, 542193037, 70802909 ####[facility] [address] [place] [address] Family Medicine Office/Clini c Noteon 07-29-2023 Family [...] and imagi (more content not included)... Normal [facility] Comment on above: Result Comment: Elec tronically Signed By: Paul Bass MD\.br\Date and Time Signed: 07/29/23 18:15 EST\.br\Electronically Co-Signed By: Jaja Alex\.br\Date and Time Co-Signed: 07/24/23 18:17 EST Interdisciplinary Note - Soc ial Workeron 07-28-2023 Interdisciplinary Note - Processing Manager This SW made a tc to [...] needs arise. SW will remain available. Normal [facility] Ambulatory Visit Summaryon 0 07-24-2023 Ambulatory [...] hormone level, Print Label By Order Location, 982642\.br\ Echo Transthoracic Complete, 07/24/23, Routine, Order for future visit, Transport Mode: Ambulatory, Reason: Other (please specify), Reason: murmur, Heart murmur, pp_set_radiology_ subspecialty, [facility], [place] - [place]\.br\ Medications\.br\ What How Much When Instructions\.br\ New propranolol (propranolol 10 mg Tab) 1 Tablets By Mouth Once Pickup at [facility]\.br\ Unchanged baclofen (baclofen 10 mg Tab) See [...] if questions or concerns \.br\ Pharmacy Information\.br\ [facility]: [address] [phone]\.br\ Allergies\.br\ Latex\.br\ Tape (Rash)\.br\ Problems\.br\ Ongoing - [...] for choosing us for your care.\.br\ \.br\ [facility] Ambulatory Visit Summaryon 0 07-18-2023 Ambulatory [...] Appointments Follow Up with JUAN LUIS REES, SAMIR [place] When: Only if needed Where: Medications [...] You smoke (more content not included)... Normal [facility] CHEMISTRYOrdered By: SYSTEM SYSTEM on 07-18-2023 Free T4 [Mass/Vol] 2.22 ng/dL High 0.58 - 1.64 ng/dL Remisol Chem TSH Qn 0.01 m[IU]/L Low 0.34 - 5.60 mcIU/mL Remisol Chem Clipboard Summaryon 07-18-19 24 Clipboard Summary {79-hq-o0-2d-15-1c -35-1p-h3-9a-b9-6d -cb-25-c2-ac}XML Normal [facility] Consent for Treatmenton 06-24 Consent for Treatment [id number]#1.00TIFF Normal [facility] Family Medicine Office/Clini c Noteon [...] and had a biopsy on Friday at [place], carried out by the radiology department interventional [...] Nonicteric sclera. Oropharynx pink and moist. Adequate [place] dentition. Anterior neck, there is a fullness [...] the pathology report on her phone from [facility] which indicates benign cellularity although admittedly [...] Dysphagia, unspecified) (more content not included)... Normal [facility] Comment on above: Result Comment: Elec tronically Signed By: JUAN LUIS REES, Nancy\.br\Date and Time Signed: 07/18/23 19:02 EST Free T4on 07-18-2023 Free T4 [Mass/Vol] 2.22 ng/dL High 0.58-1.64 [facility] Comment on above: Performed By: #### 7 [id number], 1901553, 56937411, 2120034, 637639332, 48026406 #### [facility] [address] [place] [address] Patient Educationon 07-18-19 Patient Education Endocrinology Hyperthyroidism [...] Follow these instructions at home: ? Take zscx-bdq-baudjle and prescription medicines only as told by [...] Where to find more information ? National [place] of Diabetes and Digestive and Kidney Diseases: [...] as u (more content not included)... Normal [facility] TSHon 07-18-2023 TSH Qn 0.01 m[IU]/L Low 0.34-5.60 [facility] Comment on above: Performed By: #### 7 [id number], 9466914, 59291992, 9464533, 663423915, 27791401 #### [facility] [address] [place] [address] Mata 07-14-2023 L Specimen: [id number] Received: 07/15/23-1303 Status: DENA Bear Num: [id number] Spec Type: Cytology Subm Dr: MARTA PUENTE MD Tissues: A FNA SLIDES NOPATH (LT THYROID NOD) Procedures: Cyto Int and Re, PAPSTN/5 Age/ Patient Sex Location Account Attending Physician Jessica Griffiths 37/F [facility] [id number] MARTA PUENTE MD SPEC NUM: [id number] RECD: 07/15/23 STATUS: DENA REEDQ NUM: [id number] KANCHAN: 07/14/23- SUBM DR: MARTA PUENTE MD ENTERED: 07/15/23 [facility] DR: Richie,Lab SPEC TYPE: Cytology DEPT: [facility] ENTERED BY: [id number] RECV BY: [id number] ORDERED: Cyto Int and Re, PAPSTN/5 ORDERED: Cyto Int and Re, PAPSTN/5 Pathological Diagnosis Left thyroid mid lobe nodule, FNA cytology: - Adequate but slightly limited for assessment - The [place] system is category 2: Benign - A [...] ) -- Specimen: [id number] Received: 07/15/23 Status: DENA Sifuentes Num: [id number] Spec Type: Cytology Subm Dr: MARTA PUENTE MD Tissues: A FNA SLIDES NOPATH (LT THYROID NOD) Procedures: Cyto Int and Re, PAPSTN/5 -- Patient: Jessica Griffiths [id number] (Continued) -- Specimen: [id number] Received: 07/15/23 (Continued) Signed (signatu re on file) Alfonso Correa MD 07/16/231122 -- Specimen: [id number] Received: 07/15/23 Status: DENA Sifuentes Num: [id number] Spec Type: Cytology Subm Dr: MARTA PUENTE MD Tissues: A FNA SLIDES NOPATH (LT THYROID NOD) Procedures: Cyto Int and Re, PAPSTN/5 -- Patient: Jessica Griffiths [id number] (Continued) -- Specimen: [id number] Received: 07/15/23 (Continued) CPT Codes 38063 -- -- Specimen: [id number] Received: 07/15/23 Status: DENA Sifuentes Num: [id number] Spec Type: Cytology Subm Dr: MARTA PUENTE MD Tissues: A FNA SLIDES NOPATH (LT THYROID NOD) Procedures: Cyto Int and Re PAPN/5 -- Patient: Jessica Griffiths [id number] (Continued) -- Signed (signatu re on file) Alfonso Correa MD 07/16/23 1123 [facility] [place] Thyroid Imaging w/ Uptk Angelito [...] 203.5 Imaging Post Administration (hrs): 24 Normal [facility] CHEMISTRYOrdered By: SYSTEM SYSTEM on 07-08-2023 Cholesterol [Mass/Vol] 145 mg/dL Normal 120 - 200 mg/dL Remisol Chem Cholesterol in HDL [Mass/Vol] 62 mg/dL Invalid Interpretation Code Remisol Chem Comment on above: Result Comment: '>= 60 LOW RISK' '<= 40 HIGH RISK' Cholesterol in LDL [Mass/Vol] 76 mg/dL Normal <=129mg/dL [facility] Chem Cholesterol in VLDL [Mass/Vol] 10 mg/dL Normal 7 - 40 mg/dL [facility] Triglyceride [Mass/Vol] 52 mg/dL Normal <=149mg/dL Remisol Chem Consent for Treatmenton 06-23 Consent for Treatment [id number]#1.00TIFF Normal [facility] Lipid Panelon 07-08-2023 Cholesterol [Mass/Vol] 145 mg/dL Normal 120-200 [facility] Comment on above: Performed By: #### 2 779543 ####[facility] [address] [place] [address] Cholesterol in HDL [Mass/Vol] 62 mg/dL Invalid Interpretation Code [facility] Comment on above: Result Comment: '>= 60 LOW RISK' '<= 40 HIGH RISK' Performed By: #### 2 816624 ####[facility] [address] [place] [address] Cholesterol in LDL [Mass/Vol] 76 mg/dL Normal <=129 [facility] Comment on above: Performed By: #### 2 094946 ####[facility] [address] [facility] [place] [place] [address] Cholesterol in VLDL [Mass/Vol] 10 mg/dL Normal 7-40 [facility] Comment on above: Performed By: #### 2 708788 ####[facility] [address] [facility] [address] Triglyceride [Mass/Vol] 52 mg/dL Normal <=149 [facility] Comment on above: Performed By: #### 2 729129 ####[facility] [address] [place] [address] UA With Cult Reflexon 2023 Bacteria LM Ql (Urine sed) 1+ /HPF Abnormal Trace [facility] Comment on above: Performed By: #### 1 9267431 ####[facility] [address] [place] [address] Bilirubin Ql (U) Negative Normal Negative [facility] Comment on above: Performed By: #### 1 [id number] ####[facility] [address] [place] [address] Clarity (U) CLEAR Normal Clear [facility] Comment on above: Performed By: #### 1 4325300 ####[address] [place] [address] Color (U) YELLOW Normal Yellow [facility] Comment on above: Performed By: #### 1 1727978 ####[address] [place] [address] Epithelial cells.squamous LM.HPF (Urine sed) [#/Area] /[HPF] Normal 0-2 [facility] Comment on above: Performed By: #### 1 1271096 ####[address] [address] Glucose Test strip (U) [Mass/Vol] Negative Normal Negative [facility] Comment on above: Performed By: #### 1 6389562 ####[facility] [address] [place] [address] Hemoglobin Ql (U) Negative Normal Negative [facility] Comment on above: Performed By: #### 1 3406243 ####[address] [address] Ketones (U) [Mass/Vol] TRACE Abnormal Negative [facility] Comment on above: Performed By: #### 1 2211398 ####[facility] [address] [place] [address] [place].plasma/Lithiu m.RBC (Bld) [Mass ratio] 0-3 Normal 0-3 [facility] Comment on above: Performed By: #### 1 4664881 ####[facility] [address] [place] [address] Mucus Ql (Urine sed) 2+ Normal [facility] Comment on above: Performed By: #### 1 6076431 ####[address] [address] Nitrite Ql (U) Negative Normal Negative [facility] Comment on above: Performed By: #### 1 0099565 ####[address] [place] [address] pH (U) 6.5 [pH] Invalid Interpretation Code 5.0-9.0 [facility] Comment on above: Performed By: #### 1 9997447 ####[address] [address] Protein (U) [Mass/Vol] Negative Normal Negative [facility] Comment on above: Performed By: #### 1 2628355 ####[address] [address] Specific gravity (U) [Rel density] 1.015 Invalid Interpretation Code 1.005-1.030 [facility] Comment on above: Performed By: #### 1 2039771 ####[address] [address] Type of Urine collection method Clean Catch Normal [facility] Comment on above: Performed By: #### 1 6390891 ####[address] [address] Urobilinogen Qn (U) 0.2 {Dylan'U}/dL Normal 0.0-1.0 [facility] Comment on above: Performed By: #### 1 6860103 ####[address] [address] WBC Auto Ql (U) Negative Normal Negative [facility] Comment on above: Performed By: #### 1 2673514 ####[address] [address] WBC LM.HPF (Urine sed) [#/Area] 0-5 Normal 0-5 [facility] Comment on above: Performed By: #### 1 2133404 ####[address] [address] URINALYSISOrdered By: Jennifer morris on 07-08-2023 Bacteria LM Ql (Urine sed) 1+ /HPF Invalid Interpretation Code Trace/HPF [facility] UA Auto SS Bilirubin Ql (U) Negative (07/08/23 7:42 AM) Normal Negative [facility] UA Auto SS Clarity (U) Clear (07/08/23 7:42 AM) Normal Clear [facility] UA Auto SS Color (U) Yellow (07/08/23 7:42 AM) Normal Yellow [facility] UA Auto SS Epithelial cells.squamous LM.HPF (Urine sed) [#/Area] /[HPF] Normal 0-2/HPF [facility] UA Aut o SS Glucose Test strip (U) [Mass/Vol] Negative (07/08/23 7:42 AM) Normal Negative [facility] UA Auto SS Hemoglobin Ql (U) Negative (07/08/23 7:42 AM) Normal Negative [facility] UA Auto SS Ketones (U) [Mass/Vol] Trace *ABN* (07/08/23 7:42 AM) Invalid Interpretation Code Negative [facility] UA Auto SS [place].plasma/Lith[place] m.RBC (Bld) [Mass ratio] 0-3 /HPF Normal 0-3/HPF [facility] UA Auto SS Mucus Ql (Urine sed) 2+ (07/08/23 7:42 AM) Normal [facility] UA Auto SS Nitrite Ql (U) Negative (07/08/23 7:42 AM) Normal Negative [facility] UA Auto SS pH (U) 6.5 *NA* (07/08/23 7:42 AM) Invalid Interpretation Code 5.0 - 9.0 [facility] UA Auto SS Protein (U) [Mass/Vol] Negative (07/08/23 7:42 AM) Normal Negative [facility] UA Auto SS Specific gravity (U) [Rel density] 1.015 *NA* (07/08/23 7:42 AM) Invalid Interpretation Code 1.005 - 1.030 [facility] UA Auto SS UA Spec Desc Clean Catch (07/08/23 7:42 AM) Normal [facility] UA Auto SS Urobilinogen Qn (U) 0.5963955 {Dylan'U}/dL Normal 0.0 - 1.0 EU/dL [facility] UA Auto SS WBC Auto Ql (U) Negative (07/08/23 7:42 AM) Normal Negative [facility] UA Auto SS WBC LM.HPF (Urine sed) [#/Area] 0-5 /HPF Normal 0-5/HPF [facility] UA Auto SS Insurance Correspondenceon 0 07-01-2023 Insurance Correspondence [id number]#1.00TIFF Normal [facility] Physician Referralon 024 Physician Referral [id number]#1.00TIFF Normal [facility] Consent for Treatmenton Consent for Treatment [id number]#1.00TIFF Normal [facility] US Thyroidon 06-27-2023 US Thyroid Exam [...] MD Transcribed by: YAMINI Technologist: FAISAL [facility] Medicine Office/Clini c Noteon 06-24-2023 Family Medicine [...] with voice recognition artificial intelligence software, specifically [employer] and or [employer]. Substitutions may have occurred due to the inherent limitations of voice recognition and artificial intelligence software. Documentation services were performed after patient or guardian consented to allow [employer] to record this visit. D (more content not included)... Normal [facility] Comment on above: Result Comment: Elec tronically Signed By: Paul Bass MD\.br\Date and Time Signed: 06/24/23 18:25 EST\.br\Electronically Co-Signed By: Jaja Alex\.br\Date and Time Co-Signed: 06/24/23 18:04 EST T3 Freeon 06-22-2023 Free T3 [Mass/Vol] 4.2 pg/mL Invalid Interpretation Code 2.0-4.4 [facility] Comment on above: Result Comment: Perf ormed at: [facility] [address] [id number] PhD Mahnaz Conklin Performed By: #### 2 [id number], 7164958, 6370992, [id number] ####[facility] [address] [place] [address] Auto Diffon 06-21-2023 Basophils/100 WBC (Bld) 0.3 % Normal 0.0-2.0 [facility] Comment on above: Order Comment: Order Added by Discern Expert. Performed By: #### 1 [id number], 2087037, 0451377, 2318351, 6344433 #### [facility] Laboratory [address] [place] [address] Basophils/Leukocytes Auto (Bld) [Pure # fraction] 0.0 E9/L Normal 0.0-0.2 [facility] Comment on above: Order Comment: Order Added by Discern Expert. Performed By: #### 1 [id number], 0554572, 6406854, 2065176, 9856841 #### [facility] [address] [place] [address] Eosinophils/100 WBC (Bld) 0.6 % Normal 0.0-8.0 [facility] Comment on above: Order Comment: Order Added by Discern Expert. Performed By: #### 1 0227684, 5251801, 6978971, 7623913, 4590363 #### [facility] [address] [place] [address] Eosinophils/Leukocyte s Auto (Bld) [Pure # fraction] 0.0 E9/L Normal 0.0-0.5 [facility] Comment on above: Order Comment: Order Added by Jay Expert. Performed By: #### 1 3151798, 2800207, 6463320, 6341272, 4731735 #### [facility] [address] [place] [address] Lymphocytes/100 WBC (Bld) 20.6 % Normal 14.0-50.0 [facility] Comment on above: Order Comment: Order Added by Jay Expert. Performed By: #### 1 3041137, 5308289, 6833454, 5521099, 5441013 #### [facility] [address] [place] [address] Lymphocytes/Leukocyte s Auto (Bld) [Pure # fraction] 1.7 E9/L Normal 1.0-4.0 [facility] Comment on above: Order Comment: Order Added by Jay Expert. Performed By: #### 1 5449409, 5780466, 0101805, 5333730, 0551415 #### [facility] [address] [place] [address] Monocytes/100 WBC (Bld) 6.6 % Normal 4.0-14.0 [facility] Comment on above: Order Comment: Order Added by Jay Expert. Performed By: #### 1 6037222, 9742884, 7751470, 2544115, 1982099 #### [facility] [address] [place] [address] Monocytes/Leukocytes Auto (Bld) [Pure # fraction] 0.5 E9/L Normal 0.2-1.0 [facility] Comment on above: Order Comment: Order Added by Discern Expert. Performed By: #### 1 6761168, 6888285, 9989186, 8657647, 5582423 #### [facility] [address] [place] [address] Neutrophils/100 WBC (Bld) 71.9 % Normal 36.0-75.0 [facility] Comment on above: Order Comment: Order Added by Discern Expert. Performed By: #### 1 0714288, 7862043, 0365657, 4501977, 3186641 #### [facility] [address] [place] [address] Neutrophils/Leukocyte s Auto (Bld) [Pure # fraction] 5.8 E9/L Normal 2.0-7.5 [facility] Comment on above: Order Comment: Order Added by Discern Expert. Performed By: #### 1 0229397, 1390440, 8380258, 5424589, 3117085 #### [facility] [address] [place] [address] CBC w/ Auto Diffon 3 Erythrocyte distribution width (RBC) [Ratio] 12.6 % Normal 10.9-14.2 [facility] Comment on above: Performed By: #### 1 7699711, 2328686, 3366688, 7452256, 3957338 #### [facility] [address] [place] [address] Hematocrit (Bld) [Volume fraction] 37.8 % Normal 34.0-46.0 [facility] Comment on above: Performed By: #### 1 0999089, 1101932, 2086020, 3468357, 9044939 #### [facility] [address] [place] [address] Hemoglobin (Bld) [Mass/Vol] 12.7 g/dL Normal 12.0-16.0 [facility] Comment on above: Performed By: #### 1 1290599, 6196513, 6019321, 7413932, 0851034 #### [facility] [address] [place] [address] MCH (RBC) [Entitic mass] 32.2 pg Normal 27.0-34.0 [facility] Comment on above: Performed By: #### 1 2857790, 8026834, 3430488, 7286947, 9100698 #### [facility] [address] [place] [address] MCHC (RBC) [Mass/Vol] 33.8 g/dL Normal 31.4-36.0 [facility] Comment on above: Performed By: #### 1 2125865, 9436000, 9784502, 7070150, 3539643 #### [facility] [address] [place] [address] MCV (RBC) [Entitic vol] 95.5 fL Normal 80.0-100.0 [facility] Comment on above: Performed By: #### 1 1481096, 2935184, 6322776, 8533644, 1634624 #### [facility] [address] [place] [address] Platelet mean volume (Bld) [Entitic vol] 8.5 fL Normal 6.4-10.8 [facility] Comment on above: Performed By: #### 1 5609767, 2778961, 3133671, 1712151, 8025613 #### [facility] [address] [place] [address] Platelets (Bld) [#/Vol] 303.0 E9/L Normal 150.0-500.0 [facility] Comment on above: Performed By: #### 1 4168330, 6398048, 2971810, 7493306, 9937473 #### [facility] [address] [place] [address] RBC (Bld) [#/Vol] 4.0 E12/L Low 4.3-5.9 [facility] Comment on above: Performed By: #### 1 8536078, 3541379, 5942294, 5990891, 4895091 #### [facility] [address] [place] [address] WBC corrected for nucl RBC Auto (Bld) [#/Vol] 8.1 E9/L Normal 4.0-11.0 [facility] Comment on above: Performed By: #### 1 4164999, 4951356, 3010538, 5971597, 1362605 #### [facility] [address] [place] [address] CHEMISTRYOrdered By: SYSTEM SYSTEM on 06-21-2023 Albumin [...] 06-21-2023 Albumin [Mass/Vol] 3.8 g/dL Normal 3.3-5.0 [facility] Comment on above: Performed By: #### 1 3673817, 8374447, 7257230, 8941998, 1607601 #### [facility] [address] [place] [address] Albumin/Globulin [Mass ratio] 1.3 {ratio} Normal 1.1-2.2 [facility] Comment on above: Performed By: #### 1 8338313, 4606468, 2723019, 2016127, 5597289 #### [facility] [address] [place] [address] Alk Phos 83 Int._Unit/L Normal 21-98 [facility] Comment on above: Performed By: #### 1 0913890, 2614597, 5095418, 2332091, 0509301 #### [facility] [address] [place] [address] ALT 10 Int._Unit/L Normal 6-46 [facility] Comment on above: Performed By: #### 1 2104337, 7707434, 3686668, 3387586, 9249357 #### [facility] [address] [place] [address] Anion gap [Moles/Vol] 10 mmol/L Normal 6-16 [facility] Comment on above: Performed By: #### 1 5990626, 6413555, 9668231, 1254956, 2675151 #### [facility] [address] [place] [address] AST 15 Int._Unit/L Normal 5-43 [facility] Comment on above: Performed By: #### 1 3095759, 4262295, 2475037, 4535864, 7389956 #### [facility] [address] [place] [address] Bili Total 0.5 mg/dL Normal 0.0-1.1 [facility] Comment on above: Performed By: #### 1 1108762, 3075662, 7539953, 9761953, 7067898 #### [facility] [address] [place] [address] BUN/Creat Ratio 22 No Units High 10-20 [facility] Comment on above: Performed By: #### 1 8809218, 9627296, 1225838, 5403579, 7168115 #### [facility] [address] [place] [address] Calcium [Mass/Vol] 8.7 mg/dL Low 8.9-11.1 [facility] Comment on above: Performed By: #### 1 0810590, 6884624, 2903635, 2790220, 8654344 #### [facility] [address] [place] [address] Chloride [Moles/Vol] 103 mmol/L Normal 101-111 [facility] Comment on above: Performed By: #### 1 8882762, 1854133, 5833704, 7089648, 9159262 #### [facility] [address] [place] [address] CO2 [Moles/Vol] 29 mmol/L Normal 21-31 [facility] Comment on above: Performed By: #### 1 6741638, 0449997, 3433134, 5983023, 4731521 #### [facility] [address] [place] [address] Creatinine [Mass/Vol] 0.6 mg/dL Normal 0.5-1.3 [facility] Comment on above: Performed By: #### 1 7317010, 4545989, 9840604, 7463812, 9964864 #### [facility] [address] [place] [address] Globulin (S) [Mass/Vol] 3.0 g/dL Normal 1.4-4.0 [facility] Comment on above: Performed By: #### 1 3367520, 5997870, 7660443, 5387846, 5124045 #### [facility] [address] [place] [address] Glucose [Mass/Vol] 84 mg/dL Normal 55-199 [facility] Comment on above: Performed By: #### 1 7985938, 8291125, 4375481, 1141134, 2945718 #### [facility] [address] [place] [address] Potassium [Moles/Vol] 3.9 mmol/L Normal 3.5-5.3 [facility] Comment on above: Performed By: #### 1 1179550, 3596580, 0053947, 5203909, 5911812 #### [facility] [address] [place] [address] Protein [Mass/Vol] 6.8 g/dL Normal 6.0-7.8 [facility] Comment on above: Performed By: #### 1 2045608, 7854950, 3255699, 8128818, 2684794 #### [facility] [address] [place] [address] Sodium [Moles/Vol] 138 mmol/L Normal 135-145 [facility] Comment on above: Performed By: #### 1 3950065, 3032717, 9555014, 4903926, 9105470 #### [facility] [address] [place] [address] Urea nitrogen [Mass/Vol] 13 mg/dL Normal 5-21 [facility] Comment on above: Performed By: #### 1 4758214, 4945909, 5034360, 3253373, 5752987 #### [facility] [address] [place] [address] Consent for Treatmenton 05-25 Consent for Treatment [id number]#1.00TIFF Normal [facility] Free T4on 06-21-2023 Free T4 [Mass/Vol] 1.37 ng/dL Normal 0.58-1.64 [facility] Comment on above: Performed By: #### 1 7575607, 9522580, 3179730, 2819187, 9288173 #### [facility] [address] [place] [address] HEMATOLOGYOrdered By: SYSTEM SYSTEM on 06-21-2023 Basophils/100 [...] 71.9 % Normal 36.0 - 75.0 % [facility] HemeAutoSS Neutrophils/Leukocyte s Auto (Bld) [Pure # [...] 32.2 pg Normal 27.0 - 34.0 pg [facility] HemeAutoSS MCHC (RBC) [Mass/Vol] 33.8 g/dL Normal [...] 8.1 E9/L Normal 4.0 - 11.0 E9/L FT HemeAutoSS Physician Orderon 06-21-2023 Physician Order [id number]#1.00TIFF Normal [facility] T3 Uptakeon 06-21-2023 T3 Uptake 46.6 % Normal 32.0-48.4 [facility] Comment on above: Performed By: #### 2 014499, 3618344, 6224200, 95920371 ####[facility] [address] [place] [address] T4 Totalon 06-21-2023 T4 18.8 microgram/dL High 4.6-9.1 [facility] Comment on above: Performed By: #### 2 170502, 7596849, 7746767, 32882843 ####[facility] [address] [place] [address] TSHon 06-21-2023 TSH Qn 0.07 m[IU]/L Low 0.34-5.60 [facility] Comment on above: Performed By: #### 2 610003, 2475461, 2556281, 20789054 ####[facility] [address] [place] [address] eGFRon 06-21-2023 GFR/1.73 sq M.predicted among non-blacks MDRD (S/P/Bld) [Vol rate/Area] mL/min/{1.73_m2} Normal >=59 [facility] Comment on above: Order Comment: Order added by Discern Expert. Performed By: #### 1 2128383, 6208905, 1287493, 8868500, 9827566 #### [facility] [address] [place] [address] Family Medicine Office/Clini c Noteon 06-20-2023 Family [...] with voice recognition software. Occasional wrong-word or ?migkk-l-jaoc? substitutions may have occurred due to the [...] know she has been working with her [employer] TECHNICAL SALES CONSULTANT in regards to blood test and lab [...] lost some weight. But again is seeing [employer] TECH[employer]ICAL SALES CONSULTANT in regards to these fluctuations denies any [...] with prim (more content not included)... Normal [facility] Comment on above: Result Comment: Elec [...] weeks. Home care treatment may include: ? Arwn-cjb-nokfwvr pain relievers. ? A warm, moist cloth placed over the ear. Severe cases may require a procedure to insert tubes in the ears (tympanostomy tubes) to drain the fluid. Follow these instructions at home: ? Take bsty-wze-jmjmpgq and prescription medicines only as told by [...] provider. Document Revised: 10/04/2021 Document Reviewed: 10/04/2021 [employer] Patient Education ? 2022 [employer]. Endocrinology Thyroid Nodule A thyroid nodule is [...] or hyperthy (more content not included)... Normal [facility] MRI Spine Cervical w/o Contr elvira [...] YAMINI Technologist: CAPRI Technical Comments None Normal [facility] Consent for Treatmenton 05-23 Consent for Treatment [id number]#1.00TIFF Normal [facility] RAD - MRI Screening Formon 1 08-10-2022 RAD - MRI Screening Form [id number]#1.00TIFF Normal [facility] Physician Orderon 06-03-2023 Physician Order [id number]#1.00TIFF [facility] Consent for Treatmenton Consent for Treatment [id number]#1.00TIFF [facility] Physician Orderon 04-28-2023 Physician Order [id number]#1.00TIFF [facility] XR Spine Cervical 4 or 5 Vie [...] in mGy = na DAP = na [facility] EMG Electromyographyon 01-21 EMG Electromyography [id number]#1.00CD:127 Normal [facility] Consultation Noteon 01-16-20 Consultation Note [id number]#1.00CD:127 Normal [facility] Auth for Release of Medical Recordson 12-17-2022 Auth for Release of Medical Records [id number]#1.00CD:127 Normal [facility] Consultation Noteon 11-16-19 Consultation Note [id number]#1.00CD:127 Normal [facility] CHEMISTRYOrdered By: SYSTEM SYSTEM on 12-03-2021 [...] developed and its performance characteristics determined by [employer]. Nucleic acid amplification tests include RT-PCR and [...] detected) result in this assay. Performed at: [place] [id number] PhD Mahnaz Conklin Vital Signs Date Time Vital Sign Value Performing Clinician Facility 10-07-2023 10:22-0400 Blood Pressure Location Nancy JUAN LUIS [facility] 10-07-2023 10:22-0400 Body temperature 97.88 [degF] Nancy JUAN LUIS [facility] 10-07-2023 10:22-0400 Diastolic blood pressure 76 mm[Hg] Rosendoeduardo BARRIENTOS [facility] 10-07-2023 10:22-0400 Heart rate 66 /min Nancy JUAN LUIS [facility] 10-07-2023 10:22-0400 Respiratory rate 16 /min Nancy BARRIENTOS [facility] 10-07-2023 10:22-0400 SaO2% (BldA) [Mass fraction] 100 % Nancy JUAN LUIS [facility] 10-07-2023 10:22-0400 Systolic blood pressure 116 mm[Hg] Nancy JUAN LUIS [facility] 08-04-2023 11:27-0500 Body height 167.6 cm Marta Puente MD Work Phone: [facility] 08-04-2023 11:27-0500 Body mass index (BMI) [Ratio] 21.14 kg/m2 Marta Puente MD Work Phone: [facility] 08-04-2023 11:27-0500 Body weight 59.42 kg Marta Puente MD Work Phone: [facility] 08-04-2023 11:27-0500 Diastolic blood pressure 81 mm[Hg] Marta Puente MD Work Phone: [facility] 08-04-2023 11:27-0500 Systolic blood pressure 111 mm[Hg] Marta Puente MD Work Phone: [facility] 07-24-2023 13:41-0500 Blood Pressure Location Paul Gudimella [facility] 07-24-2023 13:41-0500 Diastolic blood pressure 70 mm[Hg] Paul Gudimella [facility] 07-24-2023 13:41-0500 Heart rate 86 /min Paul Gudimella [facility] 07-24-2023 13:41-0500 SaO2% (BldA) [Mass fraction] 98 % Paul Gudimella [facility] 07-24-2023 13:41-0500 Systolic blood pressure 106 mm[Hg] Paul Gudimella [facility] 07-18-2023 16:16-0500 Blood Pressure Location Christopher BROWN [facility] 07-18-2023 16:16-0500 Diastolic blood pressure 60 mm[Hg] Christopher BROWN [facility] 07-18-2023 16:16-0500 Heart rate 92 /min Christopher BROWN [facility] 07-18-2023 16:16-0500 Respiratory rate 16 /min Christopher BROWN [facility] 07-18-2023 16:16-0500 SaO2% (BldA) [Mass fraction] 98 % Christopher BROWN [facility] 07-18-2023 16:16-0500 Systolic blood pressure 90 mm[Hg] Nancy BARRIENTOS [facility] 06-24-2023 13:49-0500 Blood Pressure Location Paul Gudimella [facility] 06-24-2023 13:49-0500 Diastolic blood pressure 72 mm[Hg] Paul Gudimella [facility] 06-24-2023 13:49-0500 Heart rate 89 /min Paul Gudimella [facility] 06-24-2023 13:49-0500 SaO2% (BldA) [Mass fraction] 97 % Paul Gudimella [facility] 06-24-2023 13:49-0500 Systolic blood pressure 98 mm[Hg] Paul Gudimella [facility] 06-20-2023 18:43-0500 Blood Pressure Location Filiberto Shoaib [facility] 06-20-2023 18:43-0500 Body temperature 98.06 [degF] Filiberto Cramer [facility] 06-20-2023 18:43-0500 Diastolic blood pressure 76 mm[Hg] Filiberto Cramer [facility] 06-20-2023 18:43-0500 Heart rate 96 /min Filiberto Cramer [facility] 06-20-2023 18:43-0500 SaO2% (BldA) [Mass fraction] 98 % Filiberto Cramer [facility] 06-20-2023 18:43-0500 Systolic blood pressure 122 mm[Hg] Filiberto Cramer [facility] 12-28-2021 11:20-0400 Body height 167.64 cm Ric Tinoco Other [employer] Other 12-28-2021 11:20-0400 Body mass index (BMI) [Ratio] 21.14 kg/m2 Ric Tinoco Other [employer] Other 12-28-2021 11:20-0400 Body weight 59.42 kg Ric Tinoco Other [employer] Other 04-17-2021 15:40-0400 Body height 167.64 cm Ric Tinoco Other [employer] Other 04-17-2021 15:40-0400 Body mass index (BMI) [Ratio] 21.14 kg/m2 Ric Tinoco Other [employer] Other 04-17-2021 15:40-0400 Body weight 59.42 kg Ric Tinoco Other [employer] Other 05-31-2020 15:50-0500 Body weight 63.96 kg [facility] [place] [facility]-31-2020 15:50-0500 BP Diastolic 79 mm[Hg] [facility] [facility] [place] 05-31-2020 15:50-0500 BP Systolic 107 mm[Hg] [facility] [facility] [place] 05-31-2020 15:50-0500 Pulse (Heart Rate) 67 /min [facility] [place] 05-31-2020 15:50-0500 Pulse Oximetry 100 % [facility] [place] 05-31-2020 15:50-0500 Respiratory Rate 20 /min [facility] [place] [place] Encounters Encounter Date Encounter Type Care Provider Facility Start: 10-21-2023 End: 10-22-2023 ambulatory PETRA MORELAND Not Available Start: 10-21-2023 End: 10-21-2023 Patient encounter procedure AMAIRANI JONAS [facility] Start: 10-07-2023 End: 10-08-2023 ambulatory Nancy BARRIENTOS Facility:[facility] Start: 10-07-2023 End: 10-07-2023 Patient encounter procedure Umangsanjeev JUAN LUIS [facility] Start: 09-10-2023 End: 09-11-2023 ambulatory AMAIRANI JONAS Facility:[facility] Start: 09-10-2023 End: 09-10-2023 Patient encounter procedure AMAIRANI JONAS [facility] [facility] Start: 08-04-2023 Bamboo flowsheet Marta rubio MD Work Phone: [facility] Start: 08-04-2023 Bamcesar flowsalexandre rubio MD Work Phone: [facility] Start: 08-04-2023 End: 08-04-2023 ambulatory MARTA PUENTE Not Available Start: 08-04-2023 End: 08-04-2023 Office outpatient visit 15 minutes Marta Puente MD Work Phone: [facility] Comment on above: Mass of thyroid nadir on (Primary Dx); Hyperthyroidism (CMS/HCC) Start: 07-29-2023 ambulatory Umangsanjeev BARRIENTOS [facility] ity: Po Start: 07-24-2023 End: 07-25-2023 ambulatory Paul Kali Facility:[facility] Start: 07-24-2023 End: 07-24-2023 Patient encounter procedure Paul Kali [facility] Start: 07-18-2023 End: 07-19-2023 ambulatory Nancy BARRIENTOS Facility:[facility] Start: 07-18-2023 End: 07-18-2023 Patient encounter procedure Nancy BARRIENTOS [facility] Start: 07-18-2023 End: 07-19-2023 ambulatory Paul Gudimella Facility:[facility] Start: 07-18-2023 End: 07-18-2023 Patient encounter procedure Paul Gudimella [facility] Start: 07-14-2023 End: 07-14-2023 ambulatory MD Ruben Barrientos Work Phone: [facility] Work Phone: Start: 07-14-2023 End: 07-14-2023 Departed Referred MD Ruben Barrientos Work Phone: [facility] Start: 07-08-2023 End: 10-08-2023 ambulatory Paul Gudimella Facility:[facility] Start: 07-08-2023 End: 10-07-2023 Recurring Paul Gudimella [facility] Start: 07-04-2023 End: 07-04-2023 ambulatory MARTA PUENTE Not Available Start: 06-27-2023 ambulatory Paul Gudimella Facilit y:HELEN Pagan Start: 06-27-2023 End: 06-28-2023 ambulatory Paul Gudimella Facility:[facility] Start: 06-27-2023 End: 06-27-2023 Patient encounter procedure Paul Gudimella [facility] Start: 06-24-2023 End: 06-25-2023 ambulatory Paul Gudimella Facility:[facility] Start: 06-24-2023 End: 06-24-2023 Patient encounter procedure Paul Kali [facility] Start: 06-21-2023 End: 06-22-2023 ambulatory Filiberto Cramer Facility:[facility] Start: 06-21-2023 End: 06-21-2023 Patient encounter procedure Filiberto Manuelpsey [facility] Start: 06-20-2023 End: 06-21-2023 ambulatory Filiberto MJanie Henryey Facility: [place] Start: 06-20-2023 End: 06-20-2023 Patient encounter procedure Filiberto Cramer [facility] Start: 06-09-2023 End: 06-10-2023 ambulatory Narendranath Lakshmipathy Facility:[facility] Start: 06-09-2023 End: 06-09-2023 Patient encounter procedure Narendranath Lakshmipathy [facility] Start: 05-07-2023 End: 05-07-2023 ambulatory KRAIG PARK Not Available Start: 04-28-2023 ambulatory Anitra BARRIENTOS Facility: [facility] Start: 04-28-2023 End: 04-29-2023 ambulatory EBER CASTANEDA Facility:[facility] Start: 04-28-2023 End: 04-28-2023 Patient encounter procedure EBER CASTANEDA [facility] Start: 11-05-2022 End: 11-06-2022 ambulatory NARENDRANATH LAKSHMIPATHY . Facility: Start: 10-22-2022 End: 10-22-[address] DOCTOR ALEJANDRE Facility: Start: 10-01-2022 End: 10-02-2022 ambulatory ISAURA KELLY . Facility:[facility] Start: 08-27-2022 End: 08-27-2022 ambulatory Ric Alejandrina Other [employer] Other Start: 08-27-2022 Telephone encounter Ric Tinoco [facility] Start: 06-11-2022 End: 06-12-[address] HERB RIVERO . Facility:[facility] Start: 05-28-2022 End: 05-28-[address] HERB RIVERO . Facility:[facility] Start: 03-05-2022 End: 03-06-[address] HERB RIVERO . Facility:[facility] Start: 12-28-2021 End: 12-28-2021 ambulatory Ric Tinoco Other [employer] Other Start: 12-28-2021 Office outpatient visit 15 minutes Ric Tinoco [facility] Start: 12-03-2021 End: 12-03-2021 Patient encounter procedure Kraig [place] [facility] Start: 11-08-2021 End: 11-09-[address] HERB RIVERO . Facility:[facility] Start: 07-13-2021 End: 10-11-2021 Patient encounter procedure Nancy BARRIENTOS [facility] Start: 04-17-2021 Office outpatient visit 15 minutes Ric Tinoco [facility] Start: 05-31-2020 End: 05-31-2020 Emergency department patient visit KATHY GHOSH [facility] Start: 05-31-2020 End: 05-31-2020 Emergency department patient visit Kathy Ghosh Work Phone: [facility] ED Comment on above: Chest wall pain (Brunilda michelet Dx) Start: 12-30-2018 End: 01-07-2019 Patient encounter procedure PROVIDER UNKNOWN Facility:[facility] Procedures Date Procedure Procedure Detail Performing Clinician Start: 07-14-2023 Fine biopsy needle, device (physical object) Nancy BARRIENTOS Comment on above: thyroid nodule Start: 06-12-2020 Local anesthetic sac ral epidural block Nancy BARRIENTOS Comment on above: @ [facility] per [facility] mgmt Start: 05-31-2020 Ecg routine ecg w/le ast 12 lds w/i&r KATHY JAQUEZCHER Start: 05-31-2020 Ecg routine ecg w/le ast [...] [facility] Comment on above: 2014 Dr. Golden endo metriocliff laparoscopy 5 Rosendoeduardo [facility] Comment on above: 2014 Dr. Golden endo metriosis lumbar microdisectomy 5 Rex BARRIENTOS Comment on above: 10/2017 Dr. Barnes @ [facility] lumbar microdisectomy 6 Rex BARRIENTOS Comment on above: 10/2017 Dr. Barnes @ [facility] TV 6 Nancy BIRCH Comment on above: per Dr. Glez 8 wisdom teeth extracted Ruben BARRIENTOS Plan of Treatment Date Care Activity Detail Author Start: 05-31-2026 Screening for malign ant neoplasm of cervix [facility] Start: 08-04-2023 End: 08-04-2023 Patient encounter procedure 08/04/2023 11:20 AM EST Office Visit [facility] [address] [place] [address] Marta Puente MD [address] [facility] [address] [place] [address] [facility] Comment on above: Arrived Start: 02-21-2023 Influenza vaccination Influenza Vacc ine (#1) [facility] Start: 02-22-2020 Influenza vaccination Flu vaccine (# 1) [place], [place] Start: 2005 Screening for malign ant neoplasm of cervix Pap Smear [facility] EKG 12 Lead EKG 12 Lead ECG STAT 05/31/2020 4:01 PM EST [place] Immunizations Immunization Date Immunization Notes Care Provider Fa cility 10-28-2020 COVID-19, mRNA, LNP-S, PF, 30 mcg/0.3 mL dose; Translations: [Pfizer-BioNTech COVID-19 Vaccine] Nancy BARRIENTOS [facility] Comment on above: Reason for Medicatio n: Prophylaxis 10-07-2020 COVID-19, mRNA, LNP-S, PF, 30 mcg/0.3 mL dose; Translations: [Pfizer-BioNTech COVID-19 Vaccine] Nancy BARRIENTOS [facility] Comment on above: Reason for Medicatio n: Prophylaxis 04-15-2020 influenza, injectable, quadrivalent, contains preservative Nancy BARRIENTOS [facility] 04-15-2020 influenza virus vaccine, unspecified formulation Marta Puente MD Work Phone: [facility] 03-23-2018 influenza virus vaccine, unspecified formulation Nancy BARRIENTOS [facility] 03-10-2013 tetanus toxoid, reduced diphtheria toxoid, and acellular pertussis vaccine, adsorbed Nancy BARRIENTOS [facility] Comment on above: Reason for Medicatio n: Other (see comment) 10-13-2007 tetanus toxoid, reduced diphtheria toxoid, and acellular pertussis vaccine, adsorbed Filiberto Cramer [facility] 10-24-1999 hepatitis A and hepatitis B vaccine Filiberto Cramer [facility] 01-25-1998 measles, mumps and rubella virus vaccine Filiberto Cramer [facility] NEGATED: Highlighted row has not occurred!07-18-2023 influenza virus vaccine, unspecified formulation Nancy BARRIENTOS [facility] NEGATED: Highlighted row has not occurred!06-20-2023 influenza virus vaccine, unspecified formulation Filiberto Cramer [facility] Payers Date Payer Category Payer Self-pay [id number] 2022 Medicaid [place] [id number] 2022-Present [address] [place] [address] [id number] 2022 Medicaid [id number] 2006 Private Health Insurance [id number] 1984 Unknown [id number] 47 1984 Unknown [id number] 2.840.1.217644.3.579.2.1 74 1984 Unknown [id number] 216.840.1.890083.3.579.2.5 93 1984 Unknown [id number] 216.840.1.865077.3.579.2.5 93 1984 Unknown [id number] 216.840.1.023627.3.579.2.5 93 1984 Unknown [id number] 2.16.840.1.681590.3.579.2.5 93 1984 Unknown [id number] 2.16.840.1.117639.3.579.2.5 93 1984 Unknown [id number] 2.16.840.1.317191.3.579.2.5 93 1984 Unknown [id number] 2.16.840.1.450659.3.579.2.5 93 1984 Unknown [id number] 2.16.840.1.712101.3.579.2.1 259 1984 Unknown [id number] 2.16.840.1.318294.3.579.2.1 259 1984 Unknown [id number] 2.16.840.1.326743.3.579.2.1 259 1984 Unknown [id number] 2.16.840.1.005965.3.579.2.1 259 1984 Unknown [id number] 2.16.840.1.960519.3.579.2.7 27 1984 Unknown [id number] 2.16.840.1.570957.3.579.2.7 27 1984 Unknown [id number] 2.16.840.1.665582.3.579.2.7 27 1984 Unknown [id number] 2.16.840.1.771769.3.579.2.7 27 1984 Unknown [id number] 2.16.840.1.712411.3.579.2.7 27 1984 Unknown [id number] 2.16.840.1.176987.3.579.2.7 27 1984 Unknown [id number] 2.16.840.1.762136.3.579.2.7 27 1984 Unknown [id number] 2.16.840.1.686422.3.579.2.7 27 1984 Unknown [id number] 2.16.840.1.762516.3.579.2.7 27 1984 Unknown [id number] 2.16.840.1.613057.3.579.2.7 27 1984 Unknown [id number] 2.16.840.1.870521.3.579.2.7 27 1984 Unknown [id number] 2.16.840.1.866859.3.579.2.7 27 1984 Unknown [id number] 2.16.840.1.796635.3.579.2.7 27 1984 Unknown [id number] 2.16.840.1.689162.3.579.2.7 27 1984 Unknown [id number] 2.16.840.1.140737.3.579.2.7 27 1984 Unknown [id number] 2.16.840.1.758891.3.579.2.7 27 1959 Private Health Insurance [id number] 1.2.840.392637.1.13.239.2.7 .3.144190.315 Unknown [id number] 2.16.840.1.395190.3.579.2.5 31 Social History Date Type Detail Facility Start: 05-31-2020 End: 10-07-2023 Tobacco smoking status MDIS Never smoker [place] Start: 05-31-2020 End: 05-06-2023 Tobacco use and exposure Never used [place] Sex Assigned At Not on file [place] Exposure to SARS-CoV -2 (event) Not sure [place] Tobacco smoking status Never [facility] Start: 07-03-2023 End: 07-04-2023 Sex Assigned At Female [employer] Other Start: 1985 Sex Assigned At Female [facility] Start: 07-31-2023 End: 08-04-2023 Alcohol intake Ex-drinker [...] fusion (ALIF) Orthopaedic bone screw, non-bioabsorbable, non-sterile +[id number] FDA Start: 12-06-2019 Anterior lumbar interbody fusion (ALIF) Orthopaedic bone screw, non-bioabsorbable, non-sterile +[id number] FDA Start: 12-06-2019 Anterior lumbar interbody fusion (ALIF) Bone-screw internal spinal fixation system, non-sterile +[id number] FDA Start: 12-06-2019 Anterior lumbar interbody fusion (ALIF) Bone-screw internal spinal fixation system, non-sterile +[id number] FDA Start: 12-06-2019 Anterior lumbar interbody fusion (ALIF) Spinal fusion graft kit ()[id number] 13) [id number] FDA Start: 12-06-2019 Anterior lumbar interbody fusion (ALIF) Spinal bone screw, non-bioabsorbable ()[id number] FDA Start: 12-06-2019 Anterior lumbar interbody fusion (ALIF) Metallic spinal fusion cage, non-sterile ()[id number] FDA Start: 12-06-2019 Anterior lumbar interbody fusion (ALIF) Bone-screw internal spinal fixation system, non-sterile +[id number] FDA Start: 12-06-2019 Functional Status Date Assessment Result Facility 10-07-2023 Functional Status N/A [facility] 07-24-2023 Functional Status N/A [facility] 07-18-2023 Functional Status N/A [facility] 06-24-2023 Functional Status N/A [facility] 06-20-2023 Functional Status N/A [facility] Clinical Notes 04-17-2021 to 10-21-2023 LaboratoryHidenis Puente MD - 08/04/2023 11:20 AM ESTLaboratoryRadiologyLaboratoryLaboratoryLaboratory Note Date & Type Note Facility 10-21-2023 Evaluation + Plan note Diagnostic Tests PendingT3 Free 10/21/23 Future Scheduled TestsLab Miscellaneous-LC 07/24/23 [facility] 10-07-2023 Hospital Discharge instructions Patient Education 10/07/2023 08:01:29 Urinary Tract Infection, Adult Urinary Tract Infection, Adult A urinary tract infection (UTI) is an infection of any part of the urinary tract. The urinary tract includes the kidneys, ureters, bladder, and urethra. These organs make, store, and get rid of urine in the body. An upper UTI affects the ureters and kidneys. A lower UTI affects the bladder and urethra. What are the causes? Most urinary tract infections are caused by bacteria in your genital area around your urethra, where urine leaves your body. These bacteria grow and cause inflammation of your urinary tract. What increases the risk? You are more likely to develop this condition if: You have a urinary catheter that stays in place. You are not able to control when you urinate or have a bowel movement (incontinence). You are female and you: ?Use a spermicide or diaphragm for control. ?Have low estrogen levels. ?Are . You have certain genes that increase your risk. You are sexually active. You take antibiotic medicines. You have a condition that causes your flow of urine to slow down, such as: ?An enlarged prostate, if you are male. ?Blockage in your urethra. ?A kidney stone. ?A nerve condition that affects your bladder control (neurogenic bladder). ?Not getting enough to drink, or not urinating often. You have certain medical conditions, such as: ?Diabetes. ?A weak disease-fighting system (immunesystem). ?Sickle cell disease. ?Gout. ?Spinal cord injury. What are the signs or symptoms? Symptoms of this condition include: Needing to urinate right away (urgency). Frequent urination. This may include small amounts of urine each time you urinate. Pain or burning with urination. Blood in the urine. Urine that smells bad or unusual. Trouble urinating. Cloudy urine. Vaginal discharge, if you are female. Pain in the abdomen or the lower back. You may also have: Vomiting or a decreased appetite. Confusion. Irritability or tiredness. A fever or chills. Diarrhea. The first symptom in older adults may be confusion. In some cases, they may not have any symptoms until the infection has worsened. How is this diagnosed? This condition is diagnosed based on your medical history and a physical exam. You may also have other tests, including: Urine tests. Blood tests. Tests for STIs (sexually transmitted infections). If you have had more than one UTI, a cystoscopy or imaging studies may be done to determine the cause of the infections. How is this treated? Treatment for this condition includes: Antibiotic medicine. Fdwb-vrz-ucfbeum medicines to treat discomfort. Drinking enough water to stay hydrated. If you have frequent infections or have other conditions such as a kidney stone, you may need to see a health care provider who specializes in the urinary tract (urologist). In rare cases, urinary tract infections can cause sepsis. Sepsis is a life-threatening condition that occurs when the body responds to an infection. Sepsis is treated in the hospital with IV antibiotics, fluids, and other medicines. Follow these instructions at home: Medicines Take xiie-uen-tttpcsb and prescription medicines only as told by your health care provider. If you were prescribed an antibiotic medicine, take it as told by your health care provider. Do not stop using the antibiotic even if you start to feel better. General instructions Make sure you: ?Empty your bladder often and completely. Do not hold urine for long periods of time. ?Empty your bladder after sex. ?Wipe from front to back after urinating or having a bowel movement if you are female. Use each tissue only one time when you wipe. Drink enough fluid to keep your urine pale yellow. Keep all follow-up visits. This is important. Contact a health care provider if: Your symptoms do not get better after 1 2 days. Your symptoms go away and then return. Get help right away if: You have severe pain in your back or your lower abdomen. You have a fever or chills. You have nausea or vomiting. Summary A urinary tract infection (UTI) is an infection of any part of the urinary tract, which includes the kidneys, ureters, bladder, and urethra. Most urinary tract infections are caused by bacteria in your genital area. Treatment for this condition often includes antibiotic medicines. If you were prescribed an antibiotic medicine, take it as told by your health care provider. Do not stop using the antibiotic even if you start to feel better. Keep all follow-up visits. This is important. This information is not intended to replace advice given to you by your health care provider. Make sure you discuss any questions you have with your health care provider. Document Revised: 01/19/2021 Document Reviewed: 01/19/2021 [employer] Patient Education 2022 [employer]. Follow Up Care 10/07/2023 07:28:28 With:JUAN LUIS REES, SAMIR [place] Address: When: only if needed [facility] [place] 08-04-2023 History of Present illness Narrative Subjective [...] Unknown Menopause ovarian failure 2021 Migraine (CMS/HCC) 2017 Urinary tract infection Had in the past Past Surgical History: Procedure Laterality Date ABDOMINAL SURGERY 2020 back surgery ADENOIDECTOMY COSMETIC SURGERY FEMINIZING AUGMENTATION MAMMOPLASTY FNA W IMAGING GUIDANCE 07/14/2023 thyroid FNA HYSTERECTOMY [facility], [facility]-2018 OTHER SURGICAL HISTORY Breast implant replacement [...] periodic US starting in 5 mo Hyperthyroidism (CMS/[facility]) Management per Dr Jonas documented in this encounter [facility] 07-24-2023 Evaluation + Plan note Future Scheduled TestsLab Miscellaneous-LC 07/24/23Echo Transthoracic Complete 07/24/23 [facility] [place] 07-24-2023 Evaluation + Plan note Future Scheduled TestsLab Miscellaneous-LC 07/24/23 [facility] 07-18-2023 Evaluation + Plan note Diagnostic Tests PendingT3 Reverse, Serum 07/18/23Thyroid Perox.tpo Ab 07/18/23TgAb+Thyroglobulin,NIGEL or KELVIN 07/18/23 [facility] 07-18-2023 Hospital Discharge instructions Patient Education 07/18/2023 [...] surgery. Follow these instructions at home: Take qwpm-dxd-gpwvabi and prescription medicines only as told by [...] condition. Where to find more information National [place] of Diabetes and Digestive and Kidney Diseases: [...] provider. Document Revised: 08/02/2022 Document Reviewed: 08/02/2022 [employer] Patient Education 2022 [employer]. Follow Up Care 07/18/2023 07:34:13 With:Nancy BARRIENTOS MD, FAM Address: When: only if needed [facility] 06-21-2023 Evaluation + Plan note Diagnostic Tests PendingT3 Free 06/21/23 Future Scheduled TestsCBC w/ Auto Diff 06/20/23Comprehensive Metabolic Panel 06/20/23Free T4 06/20/23 [facility] 06-20-2023 Hospital Discharge instructions Patient Education 06/20/2023 [...] few weeks. Home care treatment may include: Lupv-yyp-icfgydm pain relievers. A warm, moist cloth placed over the ear. Severe cases may require a procedure to insert tubes in the ears (tympanostomy tubes) to drain the fluid. Follow these instructions at home: Take zmsd-kms-ljbrdhg and prescription medicines only as told by [...] provider. Document Revised: 10/04/2021 Document Reviewed: 10/04/2021 [employer] Patient Education 2022 [employer]. 06/20/2023 19:03:16 Thyroid Nodule Thyroid Nodule A [...] in your thyroid nodule or nodules. Take ttmd-wfo-xcuglxz and prescription medicines only as told by [...] provider. Document Revised: 04/22/2022 Document Reviewed: 04/22/2022 [employer] Patient Education 2022 [employer]. Follow Up Care 06/20/2023 07:23:01 With:Nancy BARRIENTOS MD [facility] Address: [address] [place], [place] [address]- When: Unknown [facility] 06-20-2023 Evaluation + Plan note Future Scheduled TestsT4 Total 06/20/23CBC w/ Auto Diff 06/20/23Comprehensive Metabolic Panel 06/20/23T3 Free 06/20/23T3 Uptake 06/20/23Thyroid Stimulating Hormone 06/20/23Free T4 06/20/23 [facility] 10-01-2022 Note CONSULTATION CONSULTATION [...] our patients to inform us about any ekaq-fkk-tlyuigc medications or herbal remedies/nutritional supplements/alternative remedies. 2. [...] options with their primary care provider. [facility] 06-11-2022 Note CONSULTATION CONSULTATION DATE: 06/11/2022 [...] and concurs. CC: Nancy Barrientos M.D. [facility] 03-05-2022 Note PAIN MANAGEMENT CONS ULTATION [...] along this region. CC: Dr. Barrientos [facility] 12-28-2021 Evaluation note Encounter Date Diagnosis [...] follow her up on an as-needed basis [employer] [facility] 06-13-2022 Evaluation + Plan note Diagnostic Tests Pending * Insulin Level Total 12/03/21 * T3 Free 12/03/21 * FSH Level 12/03/21 Future Scheduled Tests Laboratory* COVID-19 ([facility]) 07/13/21 [facility]05-19-2022 NoteCONSULTATION CONSULTATION DATE: 11/08/2021 This is a [...] does plan on seeing Dr. Damon in [facility]. Activities that aggravate her neck are [...] of care and would like to proceed. [facility] Signed and Approved by: ISAURA KELLY . 11/12/2021 15:05:00[facility]01-21-2022 Evaluation + Plan note Future Scheduled Tests Laboratory* COVID-19 ([facility]) 07/13/21 [facility]10-26-2021 Evaluation note* Encounter Date Diagnosis Assessment Notes Treatment Notes Treatment Clinical Notes Mar, Spondylolisthesis at L5-S1 level (ICD-10 - M43.17) I answered a number of questions for the patient. I think a transforaminal injection may be beneficial. I also believe that she could potentially benefit from a dorsal column stimulator. She is seeing a another neurologist at [facility] and I am interested in what medication [...] region with neurogenic claudication (ICD-10 - M48.062) [employer] Other evaluation + Plan note Future Appointments Appointment Date:06/27/2023 07:30:00 AM Scheduled Provider: Location:FT.ULTRASOUND Appointment Type:US Thyroid/Neck/Chest (FT) Appointment Date:06/27/2023 08:00:00 AM Scheduled Provider: Location:FT.CARDIO Appointment Type:CV EKG (FT) Appointment Date:07/29/2023 12:40:00 PM Scheduled Provider:Nancy BARRIENTOS MD Location:[facility] Appointment Type: Open Future Scheduled Tests Laboratory* UA With Cult Reflex 06/24/23 * CBC w/ Auto Diff 06/20/23 * Comprehensive Metabolic Panel 06/20/23 * Lipid Panel 06/24/23 * Free T4 06/20/23 Radiology* US Thyroid 06/27/23 [facility] [place] Evaluation + Plan note Future Appointments Appointment Date:07/29/2023 12:40:00 PM Scheduled Provider:[facility]OS [facility] Type: Open Future Scheduled Tests Laboratory* UA With Cult Reflex 06/24/23 * CBC w/ Auto Diff 06/20/23 * Comprehensive Metabolic Panel 06/20/23 * Lipid Panel 06/24/23 * Free T4 06/20/23 Radiology* US FNA w/ Guidance, first lesion 06/27/23 * NM Thyroid Imaging w/ Uptk Multiple [facility]27/23 [facility]ments Appointment Date:09/11/2023 08:00:00 AM Scheduled Provider: [facility] Type:CV Echo () Diagnostic Tests Pending * T3 Free 09/10/23 * Thyrotropin Receptor Antibody, Serum 09/10/23 Future Scheduled Tests Laboratory* Lab Miscellaneous-LC 07/24/23 Radiology* Echo Transthoracic Complete 09/11/23 [facility] note[facility] InformationNocox branson App Partner Other evaluation noteNo assessment information available [facility] Work Phone: Evaluation note* Diagnosis Mass of [...] ALIF-Doctor Alejandrina Hospitalization History see surgical hx [facility] Other Hospital course Narrative No data available for this section [facility] No data available for this section [facility] No data available for this section [facility] Summary Purpose Family History No Family History Records Found Relationship Condition Age at Onset Recorded Date/T rody Not Specified Healthy female adult Unknown father Osteoarthritis Unknown Degeneration of intervertebral disc Unkno wn Advance Directives No Advanced Directives Records FoundDocuments on File Type Date Recorded 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 * Chest Pain: Musculoskeletal (Sami) documented in this encounter Assessments Diagnosis Chest wall pain Painful respiration Reason for Referral Reason Evaluate and Treat C onsider for Dorsal Column Stimulator Diagnosis 1 Spondylolisthesis at L5-S1 level (M43.17) Referral Organization [facility] Referring Provider First Name Ric Referring Provider Last Name Alejandrina Referring Provider Specialty Neurologica l Surgery Referred Organization Unknown Facility Referred Provider Mansoor Summers Referred Provider Specialty Pain Medicin e Referral Priority Routine Additional Source Comments INFORMATION SOURCE (unrecogn ized section and content) DATE CREATED AUTHOR 01/14/2020 [facility] DATE CREATED AUTHOR AUTHOR'S ORGANIZ ATION 06/01/2020 [facility] DATE CREATED AUTHOR AUTHOR'S ORGANIZ ATION 11/06/2022 [facility] DATE CREATED AUTHOR AUTHOR'S ORGANIZ ATION 08/01/2023 [facility] DATE CREATED AUTHOR AUTHOR'S ORGANIZ ATION 10/22/2023 [facility] EPIC DATE CREATED AUTHOR AUTHOR'S ORGANIZ ATION 10/22/2023 [facility] Reason for Visit (unrecogniz ed section and [...] July 14, 2023 End: July 14, 2023 Proced Tech Relationship Specialty Start Date End Date Nancy Barrientos MD [address] [place] [id number] PCP - General 05/07/23 Proced Tech Relationship Specialty Start Date End Date Nancy Barrientos MD [address] [place] [id number] PCP - General 05/07/23 Goals (unrecognized section [...] BE BASED ON THE PRIMARY CLINICAL RECORDS. [facility] [employer] provides no warranty or guarantee of the accuracy or completeness of information in this document.
--- NOTE | 2023-10-23 10:19 | P.CN_ITS ---
Consult Note: HPI Data of Consult Patient: known to practice within the last 3 years Requesting Physician: Randi Potts NP Primary Care Provider: Non-Staff Physician, MD Consult Narrative Reason for consult: F/u Narrative: Emily Valiente a pleasant 38 year old female presents for evaluation and management of chronic pain. Today neck pain is 4/10 increasing to 8/10. Pain increases with bending and activity. Patient reporting increase in right trapezius muscle pain and tightness, previously had significant benefit to TPI with Dr Thompson for 2 weeks, no ongoing improvement. Patient finds benefit with current medication regimen, no side effects. Active in HEP and aquatherapy. cc:: CC: Randi Potts NP Review of Systems ROS Status of ROS 10 or more systems reviewed and unremark able except as noted in history and below Musculoskeletal Reports: neck pain PFSH PFSH Medical History Migraines ?G43.909 - Migraine, unspecified, not intractable, without status migrainosus (ICD-10) Chronic pharyngitis ?J31.2 - Chronic pharyngitis (ICD-10) Endometriosis determined by laparoscopy ?N80.9 - Endometriosis, unspecified (ICD-10) Hyperthyroidism ?E05.90 - Thyrotoxicosis, unspecified without thyrotoxic crisis or storm (ICD-10) Neck pain ?M54.2 - Cervicalgia (ICD-10) Low back pain ?M54.50 - Low back pain, unspecified (ICD-10) Numbness and tingling ?R20.0 - Anesthesia of skin (ICD-10) ?R20.2 - Paresthesia of skin (ICD-10) Surgical History S/P fine needle aspiration ?Z98.890 - Other specified postprocedural states (ICD-10) History of lumbar fusion ?Z98.1 - Arthrodesis status (ICD-10) H/O breast implant ?Z98.82 - Breast implant status (ICD-10) Hx of breast implants, bilateral ?Z98.82 - Breast implant status (ICD-10) Status post lumbar surgery ?Z98.890 - Other specified postprocedural states (ICD-10) H/O: hysterectomy ?Z90.710 - Acquired absence of both cervix and uterus (ICD-10) S/P T&A (status post tonsillectomy and adenoidectomy) ?Z90.89 - Acquired absence of other organs (ICD-10) Hx of laparoscopy ?Z98.890 - Other specified postprocedural states (ICD-10) H/O breast augmentation ?Z98.82 - Breast implant status (ICD-10) Meds Home Medications and Allergies Home Medications ?Medication ?Instructions ?Recorded ?Confirmed ?Type baclofen 10 mg tablet 10 mg PO BID 12/04/22 07/14/23 History erenumab-aooe 70 mg/mL 140 mg subcut .MONTH 12/04/22 07/14/23 History subcutaneous auto-injector (Aimovig Autoinjector) oxcarbazepine 300 mg tablet 300 mg PO .HS 12/04/22 07/14/23 History tizanidine 4 mg tablet 4 mg PO .HS 12/04/22 07/14/23 History gabapentin 600 mg tablet 600 mg PO BEDTIME #30 tabs 04/17/23 07/14/23 Rx amoxicillin 875 mg-potassium 1 tab PO Q12H 07/11/23 07/14/23 History clavulanate 125 mg tablet biotin 1 tab PO DAILY 07/11/23 07/14/23 History collagen liquid 0.5 drp PO DAILY 07/11/23 07/14/23 History estradiol 2 mg tablet 2 mg PO DAILY 07/11/23 07/14/23 History gabapentin 100 mg capsule 150 mg PO .every morning 07/11/23 07/14/23 History oxcarbazepine 150 mg tablet 150 mg PO DAILY 07/11/23 07/14/23 History tramadol 50 mg tablet 50 mg PO TID PRN pain 07/14/23 07/14/23 History tramadol 50 mg tablet 50 mg PO TID PRN pain #90 tabs 07/23/23 Rx Allergies Allergy/AdvReac Type Severity Reaction Status Date / Time adhesive Allergy Rash Verified 07/14/23 13:50 latex Allergy Rash Uncoded 07/14/23 13:50 Exam Constitutional Documenting provider has reviewed patient's vital signs: yes Common normals: no apparent distress, oriented x3, healthy appearing, alert and well nourished General appearance: cooperative HENMT Common normals: normocephalic, hearing grossly normal bilaterally and moist oral mucous membranes Head and scalp: normocephalic Eye Common normals: PERRL Pupil: PERRL Neck & C-Spine Common normals: full ROM General: normal visual inspection Cervical spine: cervical ROM abnormal, pain with cervical ROM, paracervical muscle tenderness and trapezius muscle tenderness Other: negative sprulings strength 4/5 in RUE 5/5 in LUE Chest Common normals: inspection of chest normal Respiratory Common normals: normal respiratory effort, no retractions and no use of accessory muscles Back & Pelvis Lumbar spine/lower back: ROM limited, pain with ROM and straight leg raise negative bilaterally Extremity Common normals: normal to inspection and full ROM Other: negative bilateral fabers, gaenslens, thigh thrust Neuro Common normals: oriented x3, CN's II-XII intact bilaterally, moves all extremit ies, no focal motor deficits, no sensory deficits noted and deep tendon reflexes 2+ bilaterally Sensorium/orientation: alert Motor exam: strength 5/5 throughout and no movement abnormalities noted Psych Common normals: mental status grossly normal, thought process normal, cooperative, affect normal, speech normal and activity/motor behavior normal Speech: normal speech Thought process: normal thought process Results Additional Findings Additional findings: If on a controlled substance or opioids, I have checked an [place] report on this patient and there are no aberrancies noted in the prescribing history.??If on a controlled substance or opioid a drug screen was completed and reviewed within the last year, and if there has not been a drug screen completed we ordered one today to monitor higher risk, state monitored pain medication use. As part of providing excellent, safe, comprehensive care, the following was completed at our patient's visit: 1. A medication reconciliation and review to ensure accurate knowledge of current/active medications, including asking our patients to inform us about any [id number] medications or herbal remedies/nutritional supplements/alternative remedies. 2. A review to specifically ensure our patients have had annual screening for screening for depression, screening for tobacco use, and screening for unhealthy alcohol use. For concerning screenings had a discussion with the patient, provided patient education, and recommended follow-up with primary care provider when appropriate. If patient noted with a risk of falling, they received education on strength, gait, and balance training to prevent future risk of falling. Assessment and Plan Assessment and Plan (1) Cervical spondylosis: Assessment and Plan: The patient has had over 3 months of moderate to severe cervical spine pain with functional impairment and inadequate response to conservative care including NSAIDS (unless there are contraindication such as concurrent blood thinners), multiple oral or topical pain medications, and home exercise program/physical therapy.? Patient has completed >6 weeks of guided home exercise program and/or formal physical therapy program without relief of their symptoms.? I have reviewed the imaging of the cervical spine and no red flags were identified.? We discussed the risks and benefits of the procedure with the patient, and we are NOT planning on using sedation as outlined in the guidelines from Medicare unless there is a documented reason that sedation would be strongly recommended.?? ?The procedure will be completed with fluoroscopic guidance.? (2) Muscle spasm: (3) Cervical paraspinal muscle spasm: Assessment and Plan: improvement from prior TPI for 2 weeks, no ongoing improvement Plan right C3-4 C4-5 medial branch block x2 working towards RFA continue current medication regimen continue HEP and aquatherapy f/u 1 week after each injection
== END 2023-10-23 09:55 | disposition home or self-care (01) ==
LOC: PM 09:55
PROVIDERS: Visit Provider Nurse Practitioner
DX: M47.816 Spondylosis without myelopathy or radiculopathy, lumbar region (principal); M62.838 Other muscle spasm
CPT/HCPCS: G0463

== ENCOUNTER 2023-11-25 08:06 | Day surgery (SDC) | payer MEDICAID, SELFPAY ==
--- OUTSIDE RECORDS SUMMARY | 2023-11-25 08:13 | XMS_ITS | CCD ---
Author Organization [facility] Care Team Providers Care Monotype Keyboard Operator Name Role Phone UNKNOWN, PROVIDER Admitting Unavailable UNKNOWN, PROVIDER Attending Unavailable UNKNOWN, PHYSICIAN Referring Unavailable UNKNOWN, PHYSICIAN Primary Care Unavailable Nancy Barrientos Primary Care Provider KATHY GHOSH Attending Unavailable NANCY BARRIENTOS Primary Care Unavailable Nancy BARRIENTOS Primary Care Physician [phone] Ric Tinoco Unavailable JOSEFA ., DR HERB Melgar Attending Unavailable RIVERO ., DR HERB Melgar Admitting Unavailable RIVERO ., DR HERB Melgar Consulting Unavailable MISC, DR MURRIETA Primary Care Unavailable LAKSHMIPATHY ., SHARONA Consulting Fide vailable MISC, DR MURRIETA Primary Care Unavailable LAKSHMIPATHY ., NARSIERRA Admitting Fide vailable LAKSHMIPATHY ., SHARONA Attending Fide vailable HALKER .LOYD Consulting Unavailable KELLY ., ISAURA Consulting Unavailable RIVERO ., DR HERB Melgar Attending Unavailable MISC, DR MURRIETA Primary Care Unavailable RIVERO ., DR HERB Melgar Admitting Unavailable LAKSHMIPATHY ., SHARONA Consulting Fide vailable MISC, DR MURRIETA Primary Care Unavailable LAKSHMIPATHY ., NARENDRANATH Admitting Fide vailable LAKSHMIPATHY ., NARAMAYAATH Attending Fide vailable LAKSHMIPATHY ., SHARONA Consulting [...] JOSEFA ., DR HERB Melgar Attending Unavailable MIS, DR MURRIETA Primary Care Unavailable JOSEFA ., DR HERB Melgar Consulting Unavailable JOSEFA ., DR HERB Melgar Admitting Unavailable KELLY .ISAURA Consulting Unavailable MD Ruben Barrientos Primary Care Provider [phone] MD Marta Puente Jr Attending Provider UnavaMarta Bhatia Jr Attending Unavailable Marta Puente Jr Admitting Unavailable Ruben Barrientos Primary Care Unavailable Nancy Barrientos MD Primary Care Provider Nancy BARRIENTOS Primary Care Physician [phone] MARTA PUENTE Attending Unavailable GUMYRAMELKEYSHA, PAUL Referring Unavailable KRAIG PARK Attending Unavailable MARTA PUENTE Attending Unavailable NANCY BARRIENTOS Referring Unavailable PETRA MORELAND Attending Unavailable Gudimella, Paul Attending Unavailable Gudimella, Paul Attending Unavailable Bethmella, Paul Attending Unavailable Nancy BARRIENTOS Attending Unavailable Nancy BARRIENTOS Attending Unavailable Nancy BARRIENTOS Attending Unavailable Anitra BARRIENTOS Attending Unavailable Lakshmipathy, Narendranath Admitting Unava ilable Lakshmipathy, Narendranath Attending Unava ilable Lakshmipathy, Narendranath Referring Unava ilable Filiberto Cramer Admitting Unavailable Filiberto Cramer Attending Unavailable Andredimella, Paul Attending Unavailable Gudimella, Paul Admitting Unavailable SUMI, AHMAD F Attending Unavailable SUIM, AHMAD F Admitting Unavailable SUMI, AHMAD F Attending Unavailable SUMI, AHMAD F Admitting Unavailable Gudimella, Paul Admitting Unavailable Gudimella, Paul Attending Unavailable Gudimella, Paul Referring Unavailable Gudimella, Paul Attending Unavailable Gudimella, Paul Referring Unavailable Gudimella, Paul Admitting Unavailable EBER CASTANEDA Admitting Unavailable EBER CASTANEDA Attending Unavailable Filiberto Cramer Attending Unavailable Gudimella, Paul Attending Unavailable Allergies Allergy Classification Reported Allergen(s) Allergy Type Date of Onset Reaction(s) Facility (1 source) Adhesive agent; Translations: [Unknown] Propensity to adverse reactions (disorder) 9 [facility] Repository (17 sources) Adhesive Tape; Translations: [Tape] Drug allergy Eruption of skin (disorder) [facility] (20 sources) Latex; Translations: [Latex] Drug allergy [address] [facility] Other (3 sources) adhesive bandages Propensity to adverse reactions rash [facility] Other (1 source) Adhesive agent Drug allergy (disorder) 6 [facility] Repository (1 source) Adhesive agent Drug allergy (disorder) 2 [facility] Repository (1 source) Adhesive Tape Drug allergy (disorder) 0 [facility] Repository (3 sources) Wound Dressing Adhesive [...] Status: Ordered baclofen 10 mg oral tablet (18 sources) gamma-Aminobutyr ic Acid-ergic Agonist Start: 03-23-2023 [...] course, # 28 cap(s), Refills(s) 0, Pharmacy: [facility], 168, cm, 07/11/20 8:27:00 EST, [...] Daily, # 90 tab(s), Refills(s) 1, Pharmacy: [facility], 168, cm, 07/11/20 8:27:00 EST, Height/Length Dosing, 64.1, kg, 07/11/20 8:27:00 EST, Weight Dosing Start Date: 11/23/20 Status: Ordered cyclobenzaprine hydrochloride 10 mg oral tablet (4 sources) Muscle Relaxant Start: 09-04-2017 End: 12-08-2019 take 10 mg by mouth three times daily Cyclobenzaprine Active 10 MG PO Three times daily December 07, 2019 11:00pm 1 ml erenumab-aooe 140 mg/ml auto-injector (20 sources) Start: 11-30-2019 Aimovig 140 MG/ML injection [...] nasal route once daily Flonase 0.05 mg/inh [place] 2 spray(s), Nasal, Daily for 7 day(s), 16 gm, Refill(s) 0, each nostril, [facility], 168, cm, 06/20/23 18:45:00 EST, [...] BID, # 180 tab(s), Refills(s) 1, Pharmacy: [email or web address], 168, cm, 07/11/20 8:27:00 EST, Height/Length Dosing, 64.1, kg, 07/11/20 8:27:00 EST, Weight Dosing Start Date: 08/22/20 Status: Ordered loratadine 10 mg oral tablet (3 sources) Start: 02-23-2020 take 1 tablet by mouth once daily loratadine 10 mg Tab 10 mg = 1 tab(s), Oral, Daily, # 90 tab(s), Refills(s) 1, Pharmacy: [facility], 168, cm, 02/23/20 10:40:00 EDT, Height/Length Dosing, 65, kg, 02/23/20 10:40:00 EDT, Weight Dosing Start Date: 02/23/20 Status: Ordered Start: 11-30-2019 take 1 capsule by [facility] once daily loratadine (CLARITIN) 10 MG [...] Nausea/Vomiting, # 10 tab(s), Refills(s) 0, Pharmacy: [facility], 168, cm, 07/10/20 13:24:00 EST, [...] Active oxybutynin chloride 5 mg oral tablet (15 sources) Cholinergic Muscarinic Antagonist Start: 10-07-2023 take 1 tablet by mouth three times daily as needed oxybutynin 5 mg Tab 5 mg = 1 tab(s), Oral, TID, PRN for urinary discomfort, for bladder symptoms, # 30 tab(s), Refills(s) 0, Pharmacy: [facility], 168, cm, 10/07/23 10:32:00 EDT, Height/Length Dosing, 61, kg, 10/07/23 10:32:00 EDT, Weight Dosing Start Date: 10/07/23 Status: Ordered Start: 05-26-2020 take 1 tablet by jaden th twice daily as needed oxybutynin 5 mg Tab 5 mg = 1 tab(s), Oral, BID, PRN for urinary discomfort, # 60 tab(s), Refills(s) 2, Pharmacy: [facility], 168, cm, 05/26/20 16:32:00 EST, [...] breakfast, # 30 tab(s), Refills(s) 5, Pharmacy: [facility], 168, cm, 07/11/20 8:27:00 EST, [...] Once, # 1 tab(s), Refills(s) 0, Pharmacy: [facility], 168, cm, 07/24/23 13:48:00 EST, Height/Length Dosing, 61, kg, 07/24/23 13:48:00 EST, Weight Dosing Start Date: 07/24/23 Status: Ordered Protonix 40 mg Tab-EC (3 sources) Start: 02-06-2021 take 1 tablet by mouth once daily 30 minutes before breakfast Protonix 40 mg Tab-EC 40 mg = 1 tab(s), Oral, Daily, Take 30 minutes before breakfast, # 30 tab(s), Refills(s) 5, Pharmacy: [facility], 168, cm, 07/11/20 8:27:00 EST, Height/Length Dosing, 64.1, kg, 07/11/20 8:27:00 EST, Weight Dosing Start Date: 02/06/21 Status: Ordered rimegepant 75 mg disintegrating oral tablet (5 sources) Start: 10-07-2023 take 1 tablet by [...] Status: Ordered tiZANidine 4 mg oral tablet (18 sources) Central alpha-2 Adrenergic Agonist Start: 03-24-2023 [...] Ordered traMADol hydrochloride 50 mg oral tablet (16 sources) Opioid Agonist Start: 03-26-2023 take 1 [...] BID, # 60 tab(s), Refills(s) 2, Pharmacy: [facility], 168, cm, 11/08/21 9:50:00 EDT, Height/Length Dosing, 65.4, kg, 11/08/21 9:50:00 EDT, Weight Dosing Start Date: 01/18/22 Status: Ordered Start: 11-23-2020 take 1 tablet by jaden twice daily valacyclovir 1 g Tab 1 gram = 1 tab(s), Oral, BID, # 60 tab(s), Refills(s) 2, Pharmacy: [facility], 168, cm, 07/11/20 8:27:00 EST, Height/Length Dosing, 64.1, kg, 07/11/20 8:27:00 EST, Weight Dosing Start Date: 11/23/20 Status: Ordered Start: 11-23-2020 take 1 tablet by jaden twice daily valacyclovir 1 g Tab 1 gram = 1 tab(s), Oral, BID, # 60 tab(s), Refills(s) 2, Pharmacy: [facility], 168, cm, 07/11/20 8:27:00 EST, Height/Length Dosing, 64.1, kg, 07/11/20 8:27:00 EST, Weight Dosing Start Date: 11/23/20 Status: Ordered Completed/Discontinued Medications Medication Drug Class(es) Dates Sig (Normalized) Sig (Original) acetaminophen 325 mg / HYDROcodone bitartrate 5 mg oral tablet (2 sources) Opioid Agonist Start: 09-12-2017 End: 11-30-2019 take 1 tablet by mouth every four to six hours Hydrocodone-Acetami nophen ([place]) 5-325 mg tablet Discontinued 1 TAB PO EVERY 4-6 HOURS September 12, 2017 November 30, 2019 9:37am Start: 09-04-2017 End: 09-12-2017 take 1 tablet by mouth once daily at bedtime Hydrocodone-Acetaminophen ([place]) 5-325 mg Tablet Discontinued 1 TAB PO [...] End: 09-12-2017 Norethindrone-E.Est radiol-Iron ([place] 07/12 ()) 1 mg-20 mcg (21)/75 mg (7) tablet [...] Date Documented Da te Episodic/Chronic Cardiac dysrhythmias (7 sources) Palpitations; Translations: [Palpitations] Onset: 4 Episodic Esophageal disorders (20 sources) Gastroesophageal reflux disease; Translations: [Gastroesophageal reflux disease without esophagitis] Onset: 4 02-01-2019 Chronic Headache; including migraine (20 sources) Migraine; Translations: [Migraine variants] 03-31-2020 Chronic Heart valve disorders (7 sources) Heart murmur; Translations: [Cardiac murmur, unspecified] Onset: 4 Episodic Intestinal infection (16 sources) Bacterial overgrowth syndrome 08-07-2020 Episodic Miscellaneous mental health disorders (16 sources) Chronic insomnia 08-17-2019 Chronic Nausea and vomiting (2 sources) Nausea 07-10-2020 Episodic Nonmalignant breast conditions (3 sources) Fibrocystic disease of breast; Translations: [Diffuse cystic mastopathy of right breast] Chronic Nonspecific chest pain (17 sources) Chest wall pain; Translations: [Atypical chest pain] 07-06-2019 Episodic Other acquired deformities (3 sources) Spondylolisthesis L5/S1 level; Translations: [Spondylolisthesis, lumbosacral region] Episodic Other acquired deformities (4 sources) Lumbar spondylolisthesis; Translations: [Spondylolisthesis, lumbar region] 06-04-2023 Episodic Other diseases of bladder and urethra (17 sources) Detrusor overactivity; Translations: [Overactive bladder] Onset: 4 07-10-2020 Chronic Other female genital disorders (3 sources) Dyspareunia due to non-psychogenic cause in the female; Translations: [Other specified dyspareunia] Chronic Other gastrointestinal disorders (2 sources) Abdominal bloating 07-11-2020 Episodic Other gastrointestinal disorders (20 sources) Alteration in bowel elimination 06-27-2020 Episodic Other gastrointestinal disorders (16 sources) Chronic constipation with overflow 08-07-2020 Episodic Other gastrointestinal disorders (2 sources) Diarrhea 07-10-2020 Episodic Other gastrointestinal disorders (16 sources) Fecal soiling co-occurrent and due to fecal incontinence 06-27-2020 Episodic Other gastrointestinal disorders (2 sources) Incontinence of feces 07-11-2020 Episodic Other gastrointestinal disorders (1 source) Dysphagia; Translations: [Dysphagia, unspecified] Onset: 4 Episodic Other gastrointestinal disorders (8 sources) Swallowing painful 07-18-2023 Episodic Other nervous system disorders (3 sources) Chronic pain; Translations: [Other chronic pain] Chronic Other nervous system disorders (4 sources) Other specified mononeuropathies of right lower limb; Translations: [OTH SPEC MONONEUROPATH RT LOW LIMB] Onset: 3 Chronic Other nervous system disorders (5 sources) Other chronic pain; Translations: [OTHER CHRONIC PAIN] Onset: 2 Chronic Other nervous system disorders (16 sources) Sensory disorder of smell and/or taste 03-31-2020 Episodic Other nutritional; endocrine; and metabolic disorders (16 sources) 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 Other screening for suspected conditions (not mental disorders or infectious disease) (16 sources) Thyroid function tests abnormal; Translations: [Abnormal results of thyroid function studies] Onset: 3 Episodic Other skin disorders (7 sources) Foot callus 11-08-2021 Episodic Other skin disorders (5 sources) Mass of neck; Translations: [Localized swelling, mass and lump, neck] Onset: 4 07-04-2023 Episodic Other skin disorders (2 sources) Eruption; Translations: [Rash and other nonspecific skin eruption] Onset: 4 Episodic Other upper respiratory disease (11 sources) Allergic rhinitis; Translations: [Allergic rhinitis, unspecified] [...] [Breast implant status] Chronic Residual codes; unclassified (16 sources) Chill 03-31-2020 Episodic Residual codes; unclassified [...] STATES] Onset: 3 Episodic Residual codes; unclassified (3 sources) Patient encounter status; Translations: [Other specified health status] Onset: 4 Episodic Residual codes; unclassified (3 sources) Body mass index 20-24 - normal; [...] storm; Translations: [Hyperthyroidism] Onset: 4 Chronic Unclassified (12 sources) Body mass index 20-24 - normal 05-26-2020 Unclassified (4 sources) LOW BACK PAIN, UNSPECIFIED; Translations: [LOW BACK PAIN, UNSPECIFIED] Onset: 2 Unclassified (6 sources) Patient encounter status 06-24-2023 Urinary tract infections (16 sources) Urinary tract infectious disease 05-26-2020 Episodic Viral infection (16 sources) Herpes simplex 02-01-2019 Episodic Past or [...] with and (suspected) exposure to COVID19] Unclassified (16 sources) None (qualifier value) 12-11-2012 Unclassified (20 sources) Onset: 09-23-2004 Resolved: 03-09-2013 12-29-2014 Comment on above: pi Unclassified (1 source) LOW BACK PAIN, UNSPECIFIED; Translations: [LOW BACK PAIN, UNSPECIFIED] Onset: 06-11-2022 Results Test Name Value Interpretation Reference Range Facil ity Consenton 11-12-2023 Consent [id number]#1.00TIFF Normal [facility] Consent [id number]#1.00TIFF Normal [facility] Family Medicine Office/Clini c Noteon 11-12-2023 Family Medicine Office/Clinic Note Chief Complaint rash HPI Staff Patient here today for hives. Onset: 2 days ago, patient believes related to using tecnu topical to skin to prevent getting poison eleni New or Recurrent: new Location: bilateral extremities, abdomen and neck Description: small red scattered lesions to the skin Rash symptoms: burning and itching Health Maintenance: Colonoscopy: 07/21/2020 Mammo: 06/18/2021 Pap: Last Labs: 09/10/2023 History of Present Illness Jessica Griffiths is a 38-year-old female who is presenting today for hives. Staff HPI reviewed. Hives: The patient has been experiencing hives approximately 2 days ago, which she attributes to the use of Tecnu topical. She has been utilizing to prevent exposure to poison eleni. In 2022 she used Tecnu once, during which she experienced minor bumps, which she attributed to grass exposure due to associated pruritus. The hives are localized to her arms, legs, and stomach. Review of Systems PHQ Score Initial Depression Screen Score: 0 SCORE Negative except as stated in HPI. Physical Exam Vitals & Measurements HR: 72(Peripheral) BP: 116/76 SpO2: 99% HT: 66 in HT: 168 cm WT: 60.3 kg WT: 132.66 lb BMI: 21.36 General: Alert and oriented x4. She answers all questions, maintains eye contact. Skin: A pinpoint rash over her abdomen, chest portion of her neck, arms, and the proximal portion of her legs. Assessment/Plan The patients vital signs are within normal limits. 1. Skin rash (R21: Rash and other nonspecific skin eruption) The patient can continue taking 1 to 2 tablets of Benadryl every 6 hours as needed. She may consider using Aveeno colloidal oatmeal 2 to 4 times daily with a few drops of water to help increase absorption. A Kenalog injection of 40 mg, 1 cc, was administered by the nurse. 2. Non-smoker (Z78.9: Other specified health status) The patient is advised to continue to refrain from smoking. 3. BMI 21.0-21.9, adult (Z68.21: Body mass index [BMI] 21.0-21.9, adult) The patient is advised to adhere to healthy physical activity, nutrition, and lifestyle practices. Portions of this record may have been created with voice recognition artificial intelligence software, specifically InformedDNA, Art.com and or Mint. Substitutions may have occurred due to the inherent limitations of voice recognition and artificial intelligence software. Documentation services were performed after patient or guardian consented to allow [employer] to record this visit. DEX service desk specialist Perlita Dominguez and provider reviewed before signing. Pasted by: Tyrone Garcia. Follow-up No qualifying data available Problem List/Past Medical History Ongoing Abnormal thyroid [...] gland Odynophagia Palpitations Prolapsed lumbosacral intervertebral disc Skin rash Thyroiditis, subacute Variants of migraine Historical Acute frontal sinusitis Change in bowel habits Chest pain, atypical Chills Disturbance of smell and taste None Sinusitis, acute frontal Urinary tract infection Procedure/Surgical History Fine biopsy needle, device (07/14/2023), Caudal epidural (06/12/2020), ALIF - Anterior lumbar interbody fusion (12/06/2019), Removal of sebaceous cyst (06/19/2018), Breast augmentation (2006), laparoscopy, lumbar microdisectomy, wisdom teeth extracted. Medications Aimovig SureClick 70 mg/mL subcutaneous solution, 140 mg, SubCutaneous, qMonth baclofen 10 mg Tab, See Instructions Estrace 1 mg Tab, 1 mg= 1 tab(s), Oral, Daily gabapentin 100 mg Cap, 100 mg= 1 cap(s), Oral, Daily gabapentin 600 mg Tab Nurtec ODT 75 mg oral tablet, disintegrating oxybutynin 5 mg Tab, 5 mg= 1 tab(s), Oral, TID, PRN traMADOL 50 mg Tab, 50 mg= 1 tab(s), Oral, TID Trileptal 300 mg Tab, See Instructions Zanaflex 4 mg oral capsule, See Instructions Allergies Latex Tape (Rash) Social History Alcohol 1-2 times per year, 06/24/2023 Employment/School Employed, Work/School description: [employer]., 02/01/2019 Home/Environment Lives with Children, Spouse., 02/01/2019 Substance Abuse - Denies Substance Abuse, 12/11/2012 Household substance abuse concerns: No., 06/24/2023 Tobacco - Denies Tobacco Use, 12/11/2012 Never (less than 100 in lifetime) Tobacco Use:. Never Smokeless Tobacco Use:. Household tobacco concerns: No., 11/12/2023 Family History Depression: Mother. Hepatitis C: Sister. Immunizations Vaccine Date Status Comments influenza viru (more content not included)... Normal [facility] Comment on above: Result Comment: Elec tronically Signed By: Paul Bass MD\.br\Date and Time Signed: 11/12/23 14:07 EDT\.br\Electronically Co-Signed By: Tyrone Garciabr\Date and Time Co-Signed: 11/12/23 13:40 EDT T3 Freeon 10-22-2023 Free T3 [Mass/Vol] 2.9 pg/mL Invalid Interpretation Code 2.0-4.4 [facility] Comment on above: Result Comment: Perf ormed at: [facility] [address] [id number] PhD Mahnaz Conklin Performed By: #### 2 [id number], [id number] ####[facility] [address] [place] [address] CHEMISTRYOrdered By: SYSTEM SYSTEM on 10-21-2023 Free T4 [Mass/Vol] 0.65 ng/dL Normal 0.58 - 1.64 ng/dL Remisol Chem TSH Qn 4.41 m[IU]/L Normal 0.34 - 5.60 mcIU/mL Remisol Chem Consent for Treatmenton 09-23 Consent for Treatment [id number]#1.00TIFF Normal [facility] Free T4on 10-21-2023 Free T4 [Mass/Vol] 0.65 ng/dL Normal 0.58-1.64 [facility] Comment on above: Performed By: #### 2 [id number], [id number], [id number] ####[facility] [address] [place] [address] Physician Orderon 10-21-2023 Physician Order [id number]#1.00TIFF Normal [facility] TSHon 10-21-2023 TSH Qn 4.41 m[IU]/L Normal 0.34-5.60 [facility] Comment on above: Performed By: #### 2 [id number], [id number] ####[facility] [address] [place] [address] Ambulatory Visit Summaryon 0 10-07-2023 Ambulatory Visit [...] urinary discomfort for bladder symptoms Pickup at [facility] 7980 Unchanged baclofen (baclofen 10 mg Tab) See [...] physician if questions or concerns Pharmacy Information [facility]: [id number] [phone] Allergies Latex Tape (Rash) Problems Ongoing - [...] have a (more content not included)... Normal [facility] Family Medicine Office/Clini c Noteon 10-07-2023 [...] two weeks, she has not utilized any apkj-akh-jyezbkq or old antibiotics, nor has she utilized [...] in another week. She is seeing Dr. Mcghee in [place] for her thyroid. She has been trying [...] Urnls Dip Stick Auto w/o Microscopy POC 36649 2. Thyroiditis, subacute (E06.1: Subacute thyroiditis) Continue following with Dr. Mcghee in [place] for management of the methimazole. 3. Lumbar [...] symptoms, # 30 tab(s), Refills(s) 0, Pharmacy: [facility], 168, cm, 10/07/23 10:32:00 EDT, Height/Length Dosing, 61, kg, 10/07/23 10:32:00 EDT, Weight Dosing Portions of this record may have been created with voice recognition artificial intelligence software, specifically InformedDNA, Art.com and or Mint. Substitutions may have occurred due to the inherent limitations of voice recognition and artificial intelligence software. Follow-up With When Contact Information Nancy BARRIENTOS MD, FAM Only if needed Additional Instructions: Patient Education [...] Anterior lumba (more content not included)... Normal [facility] Comment on above: Result Comment: Elec tronically Signed By: JUAN LUIS REES, Nancy\.br\Date and Time Signed: 10/07/23 10:56 EDT Patient [...] this condition includes: ? Antibiotic medicine. ? Gcbm-ner-chozske medicines to treat discomfort. ? Drinking enough [...] these instructions at home: Medicines ? Take ozpi-xsf-uimnnaw and prescription medicines only as told by [...] Document Revie (more content not included)... Normal [facility] T3 Freeon 09-13-2023 Free T3 [Mass/Vol] 1.5 pg/mL Low 2.0-4.4 [facility] Comment on above: Result Comment: Perf ormed at: [facility] [address] [id number] PhD Mahnaz Conklin Performed By: #### 2 [id number], [id number] ####[facility] [address] [place] [address] Thyrotropin Receptor Antibod y, Serumon 09-13-2023 TSH receptor Ab Qn (S) <1.10 Invalid Interpretation Code 0.00-1.75 [facility] Comment on above: Result Comment: Perf ormed at: [facility] [address] [id number] MD Enrico Dean Performed By: #### 2 [id number], [id number], [id number], [id number] ####[facility] [address] [place] [address] CHEMISTRYOrdered By: SYSTEM SYSTEM on 09-10-2023 Albumin [...] for Treatmenton 08-22 Consent for Treatment [id number] Normal [facility] Free T4on 09-10-2023 Free T4 [Mass/Vol] ng/dL Low 0.58-1.64 [facility] Comment on above: Performed By: #### 2 [id number], [id number], [id number], [id number] ####[facility] [address] [place] [address] Hep Func Panelon 09-10-2023 Albumin [Mass/Vol] 4.2 g/dL Normal 3.3-5.0 [facility] Comment on above: Performed By: #### 2 [id number], [id number], [id number] ####[facility] [address] [place] [address] Albumin/Globulin (S) [Mass conc ratio] 1.4 Normal 1.1-2.2 [facility] Comment on above: Performed By: #### 2 [id number], [id number], [id number], [id number], [id number] ####[facility] [address] [place] [address] ALP [Catalytic activity/Vol] 66 Int._Unit/L Normal 21-98 [facility] Comment on above: Performed By: #### 2 [id number], [id number], [id number], [id number], [id number] ####[facility] [address] [place] [address] ALT No additional P-5'-P [Catalytic activity/Vol] 14 Int._Unit/L Normal 6-46 [facility] Comment on above: Performed By: #### 2 621358, 5858134, 2360608, [id number], 5372455 ####[facility] [address] [place] [address] AST [Catalytic activity/Vol] 22 Int._Unit/L Normal 5-43 [facility] Comment on above: Performed By: #### 2 421545, 4855433, 3081386, [id number], 5648395 ####[facility] [address] [place] [address] Bilirubin [Mass/Vol] 0.5 mg/dL Normal 0.0-1.1 [facility] Comment on above: Performed By: #### 2 226513, 8265600, 8763202, 4714769159, 5244366 ####[facility] [address] [place] [address] Bilirubin.direct [Mass/Vol] 0.1 mg/dL Normal 0.0-0.4 [facility] Comment on above: Performed By: #### 2 922690, 2209327, 3862441, 7772518098, 4678731 ####[facility] [address] [place] [address] Bilirubin.indirect [Mass or moles/Vol] 0.4 mg/dL Normal 0.1-0.9 [facility] Comment on above: Performed By: #### 2 984212, 4103116, 9199748, 7833071228, 8083039 ####[facility] [address] [place] [address] Globulin (S) [Mass/Vol] 3.0 g/dL Normal 1.4-4.0 [facility] Comment on above: Performed By: #### 2 246809, 3272693, 5140263, 2815354072, 5636881 ####[address] [place] [address] Protein [Mass/Vol] 7.2 g/dL Normal 6.0-7.8 [facility] Comment on above: Performed By: #### 2 145770, 6635489, 2076346, 0422175984, 3218916 ####[address] [place] [address] Physician Orderon 09-10-2023 Physician Order [id number]#1.00TIFF Normal [facility] TSHon 09-10-2023 TSH Qn 68.80 m[IU]/L High 0.34-5.60 [facility] Comment on above: Performed By: #### 2 029446, 5089287, 6893242, 8727496643, 4028463 ####[address] [place] [address] Consultation Noteon 08-12-19 24 Consultation Note [id number]#1.00TIFF Normal [facility] Insurance Correspondenceon 0 08-05-2023 Insurance Correspondence [id number]#1.00TIFF Normal [facility] Consultation Noteon 08-04-19 Consultation Note [id number]#1.00TIFF Normal [facility] .Thyroglobulin by RIAon 07-24 Thyroglobulin [Mass/Vol] 159 ng/mL High [facility] Comment on above: Result Comment: Conf irmed by dilution. This test was developed and its performance characteristics determined by [facility]. It has not been cleared or approved [...] quantitation limit is 2.0 ng/mL. Performed at: [facility] [address] [place] [address] [id number] MD Yadiel Cornell Performed By: #### 2 753703, 9065122, 54743402, 80566872, 867729833, 046855089 ####[facility] [address] [place] [address] T3 Reverseon 08-02-2023 T3.reverse [Mass/Vol] 31.2 ng/dL High 9.2-24.1 [facility] Comment on above: Result Comment: This test was developed and its performance characteristics determined by [facility]. It has not been cleared or approved by the Food and Drug Administration. Performed at: [address] [id number] MD Enrico Dean Performed By: #### 2 046446, 7898275, 43352379, 52678447, 974788489, 966843608 ####[facility] [address] [place] [address] TgAb+Thyroglobulinon 024 Thyroglobulin Ab Qn 2.7 International_Unit /mL High 0.0-0.9 [facility] Comment on above: Result Comment: Thyr oglobulin Antibody measured by Nakul [place]on Methodology Performed at: [facility] [address] [place], [place] [id number] PhD Mahnaz Conklin Performed By: #### 2 465620, 6981043, 05148511, 29364977, 087820356, 279818129 ####[facility] [address] [place] [address] Thyroid Perox.tpo Abon 08-02 TPO Ab Qn [IU]/mL Invalid Interpretation Code 0-34 [facility] Comment on above: Result Comment: Perf ormed at: [facility] [address] [place], [place] [id number] PhD Mahnaz Conklin Performed By: #### 2 912128, 7749867, 51195184, 56011215, 931543414, 524736402 ####[facility] [address] [place] [address] Family Medicine Office/Clini c Noteon 07-29-2023 Family [...] and imagi (more content not included)... Normal [facility] Comment on above: Result Comment: Elec tronically Signed By: Paul Bass MD\.br\Date and Time Signed: 07/29/23 18:15 EST\.br\Electronically Co-Signed By: Jaja Alex\.br\Date and Time Co-Signed: 07/24/23 18:17 EST Interdisciplinary Note - Soc zenaida Marina 07-28-2023 Interdisciplinary Note - [place] This SW made a tc to patient [...] needs arise. SW will remain available. Normal [facility] Ambulatory Visit Summaryon 0 07-24-2023 Ambulatory [...] hormone level, Print Label By Order Location, 207039\.br\ Echo Transthoracic Complete, 07/24/23, Routine, Order for future visit, Transport Mode: Ambulatory, Reason: Other (please specify), Reason: murmur, Heart murmur, pp_set_radiology_ subspecialty, [facility]\.br\ Medications\.br\ What How Much When Instructions\.br\ New propranolol (propranolol 10 mg Tab) 1 Tablets By Mouth Once Pickup at [facility]\.br\ Unchanged baclofen (baclofen 10 mg Tab) See [...] if questions or concerns \.br\ Pharmacy Information\.br\ [facility]: [address] [phone]\.br\ Allergies\.br\ Latex\.br\ Tape (Rash)\.br\ Problems\.br\ Ongoing - [...] for choosing us for your care.\.br\ \.br\ [facility] Ambulatory Visit Summaryon 0 07-18-2023 Ambulatory [...] You smoke (more content not included)... Normal [facility] CHEMISTRYOrdered By: SYSTEM SYSTEM on 07-18-2023 Free T4 [Mass/Vol] 2.22 ng/dL High 0.58 - 1.64 ng/dL Remisol Chem TSH Qn 0.01 m[IU]/L Low 0.34 - 5.60 mcIU/mL Remisol Chem Clipboard Summaryon 07-18-19 24 Clipboard Summary {05-ta-e6-2d-15-1c -12-3a-f8-9a-b9-6d -cb-25-c2-ac}XML Normal [facility] Consent for Treatmenton 06-24 Consent for Treatment [id number]#1.00TIFF Normal [facility] Family Medicine Office/Clini c Noteon 07-18-2023 [...] and had a biopsy on Friday at [place], carried out by the radiology department interventional [...] Nonicteric sclera. Oropharynx pink and moist. Adequate ho-chunk dentition. Anterior neck, there is a fullness [...] the pathology report on her phone from [facility] which indicates benign cellularity although admittedly [...] Dysphagia, unspecified) (more content not included)... Normal [facility] Comment on above: Result Comment: Elec tronically Signed By: JUAN LUIS REES, Nancy\.tarah\Date and Time Signed: 07/18/23 19:02 EST Free T4on 07-18-2023 Free T4 [Mass/Vol] 2.22 ng/dL High 0.58-1.64 [facility] Comment on above: Performed By: #### 2 325754, 4339951, 72403731, 32209820, 766121568, 174064503 ####[facility] [address] [place] [address] Patient Educationon 07-18-19 Patient Education Endocrinology Hyperthyroidism [...] Follow these instructions at home: ? Take uenn-pys-ftqzvsv and prescription medicines only as told by [...] Where to find more information ? National [place] of Diabetes and Digestive and Kidney Diseases: [...] as u (more content not included)... Normal [facility] TSHon 07-18-2023 TSH Qn 0.01 m[IU]/L Low 0.34-5.60 [facility] Comment on above: Performed By: #### 2 316414, 6904311, 56629677, 37199782, 401137432, 261774013 ####[facility] [address] [place] [address] Mata 07-14-2023 L Specimen: Received: 07/15/23 Status: DENA Sifuentes Num: [id number] Spec Type: Cytology Subm Dr: MARTA PUENTE MD Tissues: A FNA SLIDES NOPATH (LT THYROID NOD) Procedures: Cyto Int and Re, PAPSTN/5 Age/ Patient Sex Location Account Attending Physician Jessica Griffiths 37/F [facility] [id number] MARTA PUENTE MD SPEC NUM: [id number] RECD: 07/15/23 STATUS: DENA REQ NUM: [id number] KANCHAN: 07/14/23- SUBM DR: MARTA PUENTE MD ENTERED: 07/15/23 [facility] DR: Neno Quiroz SPEC TYPE: Cytology DEPT: ROYER ENGEL ENTERED BY: [id number] RECV BY: [id number] ORDERED: Cyto Int and Re, PAPSTN/5 ORDERED: Cyto Int and Re, PAPSTN/5 Pathological Diagnosis Left thyroid mid lobe nodule, FNA cytology: - Adequate but slightly limited for assessment - The [facility] system is category 2: Benign - A [...] [id number] Received: 07/15/23 Status: DENA Sifuentes Num: [id number] Spec Type: Cytology Subm Dr: MARTA PUENTE MD Tissues: A FNA SLIDES NOPATH (LT THYROID NOD) Procedures: Cyto Int and Re, PAPSTN/5 -- Patient: Jessica Griffiths [id number] (Continued) -- Specimen: [id number] Received: 07/15/23 (Continued) Signed (signatu re on file) Alfonso Correa MD 07/16/23 1123 -- Specimen: [id number] Received: 07/15/23 Status: DENA Sifuentes Num: [id number] Spec Type: Cytology Subm Dr: MARTA PUENTE MD Tissues: A FNA SLIDES NOPATH (LT THYROID NOD) Procedures: Cyto Int and Re, PAPSTN/5 -- Patient: Jesscia Griffiths [id number] (Continued) -- Specimen: [id number] Received: 07/15/23 (Continued) CPT Codes 83213 -- -- Specimen: [id number] Received: 07/15/23-1303 Status: DENA Bear Num: [id number] Spec Type: Cytology Subm Dr: MARTA PUENTE MD Tissues: A FNA SLIDES NOPATH (LT THYROID NOD) Procedures: Cyto Int and Re, PAPSTN/5 -- Patient: Jessica Griffiths [id number] (Continued) -- Signed (signatu re on file) Alfonso Correa MD 07/16/23 1123 [facility] NM Thyroid Imaging w/ Uptsyed ortega 07-09-2023 NM Thyroid Imaging w/ Uptk [...] 203.5 Imaging Post Administration (hrs): 24 Normal [facility] CHEMISTRYOrdered By: SYSTEM SYSTEM on 07-08-2023 [...] for Treatmenton 06-23 Consent for Treatment [id number]#1.00TIFF Normal [facility] Lipid Panelon 07-08-2023 Cholesterol [Mass/Vol] 145 mg/dL Normal 120-200 [facility] Comment on above: Performed By: #### 2 216901 ####[facility] [address] [place] [address] Cholesterol in HDL [Mass/Vol] 62 mg/dL Invalid Interpretation Code [facility] Comment on above: Result Comment: '>= 60 LOW RISK' '<= 40 HIGH RISK' Performed By: #### 2 863520 ####[facility] [address] [place] [address] Cholesterol in LDL [Mass/Vol] 76 mg/dL Normal <=129 [facility] Comment on above: Performed By: #### 2 756288 ####[facility] [address] [place] [place] [address] Cholesterol in VLDL [Mass/Vol] 10 mg/dL Normal 7-40 [facility] Comment on above: Performed By: #### 2 200078 ####[facility] [address] [place] [place] [address] Triglyceride [Mass/Vol] 52 mg/dL Normal <=149 [facility] Comment on above: Performed By: #### 2 889181 ####[facility] [address] [place] [address] UA With Cult Reflexon 2023 Bacteria LM Ql (Urine sed) 1+ /HPF Abnormal Trace [facility] Comment on above: Performed By: #### 1 3461537 ####[facility] [address] [place] [place] [address] Bilirubin Ql (U) Negative Normal Negative [facility] Comment on above: Performed By: #### 1 0833913 ####[facility] [address] [place] [place] [address] Clarity (U) CLEAR Normal Clear [facility] Comment on above: Performed By: #### 1 5461589 ####[facility] [address] [place] [place] [address] Color (U) YELLOW Normal Yellow [facility] Comment on above: Performed By: #### 1 0866121 ####[facility] [address] [place] [address] Epithelial cells.squamous LM.HPF (Urine sed) [#/Area] /[HPF] Normal 0-2 [facility] Comment on above: Performed By: #### 1 9681873 ####[facility] [address] [place] [address] Glucose Test strip (U) [Mass/Vol] Negative Normal Negative [facility] Comment on above: Performed By: #### 1 2455442 ####[facility] [address] [place] [address] Hemoglobin Ql (U) Negative Normal Negative [facility] Comment on above: Performed By: #### 1 7138937 ####[address] [place] [address] Ketones (U) [Mass/Vol] TRACE Abnormal Negative [facility] Comment on above: Performed By: #### 1 4422949 ####[address] [address] Fleming.plasma/Lithiu m.RBC (Bld) [Mass ratio] 0-3 Normal 0-3 [facility] Comment on above: Performed By: #### 1 0984543 ####[facility] [address] [place] [address] Mucus Ql (Urine sed) 2+ Normal [facility] Comment on above: Performed By: #### 1 6737971 ####[address] [address] Nitrite Ql (U) Negative Normal Negative [facility] Comment on above: Performed By: #### 1 5845003 ####[facility] [address] [place] [address] pH (U) 6.5 [pH] Invalid Interpretation Code 5.0-9.0 [facility] Comment on above: Performed By: #### 1 9092112 ####[address] [place] [address] Protein (U) [Mass/Vol] Negative Normal Negative [facility] Comment on above: Performed By: #### 1 8549551 ####[address] [place] [address] Specific gravity (U) [Rel density] 1.015 Invalid Interpretation Code 1.005-1.030 [facility] Comment on above: Performed By: #### 1 6938551 ####[place] [address] Type of Urine collection method Clean Catch Normal [facility] Comment on above: Performed By: #### 1 7378434 ####[address] Urobilinogen Qn (U) 0.2 {Dylan'U}/dL Normal 0.0-1.0 [facility] Comment on above: Performed By: #### 1 4348789 ####[place] [address] WBC Auto Ql (U) Negative Normal Negative [facility] Comment on above: Performed By: #### 1 2517553 ####[address] WBC LM.HPF (Urine sed) [#/Area] 0-5 Normal 0-5 [facility] Comment on above: Performed By: #### 1 5893683 ####[place] [address] URINALYSISOrdered By: Jennifer morris on 07-08-2023 Bacteria LM Ql (Urine sed) 1+ /HPF Invalid Interpretation Code Trace/HPF FT UA Auto SS Bilirubin Ql (U) Negative (07/08/23 7:42 AM) Normal Negative [facility] UA Auto SS Clarity (U) Clear (07/08/23 7:42 AM) Normal Clear [facility] UA Auto SS Color (U) Yellow (07/08/23 7:42 AM) Normal Yellow [facility] UA Auto SS Epithelial cells.squamous LM.HPF (Urine sed) [#/Area] /[HPF] Normal 0-2/HPF [facility] UA Aut o SS Glucose Test strip (U) [Mass/Vol] Negative (07/08/23 7:42 AM) Normal Negative [facility] UA Auto SS Hemoglobin Ql (U) Negative (07/08/23 7:42 AM) Normal Negative [facility] UA Auto SS Ketones (U) [Mass/Vol] Trace *ABN* (07/08/23 7:42 AM) Invalid Interpretation Code Negative [facility] UA Auto SS Fleming.plasma/Lithiu m.RBC (Bld) [Mass ratio] 0-3 /HPF Normal [...] [facility] UA Auto SS Urobilinogen Qn (U) 0.9820298 {Dylan'U}/dL Normal 0.0 - 1.0 EU/dL [facility] UA Auto SS WBC Auto Ql (U) Negative (07/08/23 7:42 AM) Normal Negative [facility] UA Auto SS WBC LM.HPF (Urine sed) [#/Area] 0-5 /HPF Normal 0-5/HPF [facility] UA Auto SS Insurance Correspondenceon 0 07-01-2023 Insurance Correspondence [id number]#1.00TIFF Normal [facility] Physician Referralon 024 Physician Referral [id number]#1.00TIFF Normal [facility] Consent for Treatmenton Consent for Treatment [id number]#1.00TIFF Normal [facility] US Thyroidon 06-27-2023 US Thyroid Exam [...] Transcribed by: YAMINI Technologist: FAISAL Price [facility] Family Medicine Office/Clini c Noteon 06-24-2023 [...] Labs: 06/21/2023 History of Present Illness Jessica Rocco is a 37-year-old female presenting today to [...] with voice recognition artificial intelligence software, specifically Informed[employer], Art.com and or Mint. Substitutions may have occurred due to the inherent limitations of voice recognition and artificial intelligence software. Documentation services were performed after patient or guardian consented to allow [employer] to record this visit. D (more content not included)... Normal [facility] Comment on above: Result Comment: Elec tronically Signed By: Paul Bass MD\.br\Date and Time Signed: 06/24/23 18:25 EST\.br\Electronically Co-Signed By: Jaja Alex\.br\Date and Time Co-Signed: 06/24/23 18:04 EST T3 Freeon 06-22-2023 Free T3 [Mass/Vol] 4.2 pg/mL Invalid Interpretation Code 2.0-4.4 [facility] Comment on above: Result Comment: Perf ormed at: [facility] [address] [id number] PhD Mahnaz Conklin Performed By: #### 2 147658, 1163216, 14521919, 6106743 ####[facility] [address] [place] [address] Auto Diffon 06-21-2023 Basophils/100 WBC (Bld) 0.3 % Normal 0.0-2.0 [facility] Comment on above: Order Comment: Order Added by Discern Expert. Performed By: #### 2 710543, 0339581, 8463254, 2764802, 32492441 ####[facility] [address] [place] [address] Basophils/Leukocytes Auto (Bld) [Pure # fraction] 0.0 E9/L Normal 0.0-0.2 [facility] Comment on above: Order Comment: Order Added by Discern Expert. Performed By: #### 2 380594, 9803786, 6973972, 4398453, 02084019 ####[facility] [address] [place] [address] Eosinophils/100 WBC (Bld) 0.6 % Normal 0.0-8.0 [facility] Comment on above: Order Comment: Order Added by Discern Expert. Performed By: #### 2 041705, 0733224, 3482763, 5787381, 36962130 ####[facility] [address] [place] [address] Eosinophils/Leukocyte s Auto (Bld) [Pure # fraction] 0.0 E9/L Normal 0.0-0.5 [facility] Comment on above: Order Comment: Order Added by Discern Expert. Performed By: #### 2 262850, 7300898, 4200120, 7997441, 41624349 ####[address] [place] [address] Lymphocytes/100 WBC (Bld) 20.6 % Normal 14.0-50.0 [facility] Comment on above: Order Comment: Order Added by Discern Expert. Performed By: #### 2 005804, 0967341, 4257058, 8405443, 24949501 ####[address] [place] [address] Lymphocytes/Leukocyte s Auto (Bld) [Pure # fraction] 1.7 E9/L Normal 1.0-4.0 [facility] Comment on above: Order Comment: Order Added by Jay Expert. Performed By: #### 2 000786, 9540423, 0825197, 4038604, 48211791 ####[address] [address] Monocytes/100 WBC (Bld) 6.6 % Normal 4.0-14.0 [facility] Comment on above: Order Comment: Order Added by Jay Expert. Performed By: #### 2 627756, 9596572, 5573481, 5910035, 06798892 ####[address] [place] [address] Monocytes/Leukocytes Auto (Bld) [Pure # fraction] 0.5 E9/L Normal 0.2-1.0 [facility] Comment on above: Order Comment: Order Added by Jay Expert. Performed By: #### 2 223097, 7497049, 1501887, 7329999, 14304277 ####[address] [place] [address] Neutrophils/100 WBC (Bld) 71.9 % Normal 36.0-75.0 [facility] Comment on above: Order Comment: Order Added by Discern Expert. Performed By: #### 2 747539, 1042214, 8227699, 4748576, 25617885 ####[address] [place] [address] Neutrophils/Leukocyte s Auto (Bld) [Pure # fraction] 5.8 E9/L Normal 2.0-7.5 [facility] Comment on above: Order Comment: Order Added by Discern Expert. Performed By: #### 2 123881, 8785185, 2025495, 6046011, 24186532 ####[address] [address] CBC w/ Auto Diffon Erythrocyte distribution width (RBC) [Ratio] 12.6 % Normal 10.9-14.2 [facility] Comment on above: Performed By: #### 2 710273, 6713139, 6732971, 9236448, 21395274 ####[address] [address] Hematocrit (Bld) [Volume fraction] 37.8 % Normal 34.0-46.0 [facility] Comment on above: Performed By: #### 2 166061, 5900605, 3784158, 9835142, 89103463 ####[address] [address] Hemoglobin (Bld) [Mass/Vol] 12.7 g/dL Normal 12.0-16.0 [facility] Comment on above: Performed By: #### 2 334710, 4777006, 2368825, 3556801, 32046580 ####[address] [address] MCH (RBC) [Entitic mass] 32.2 pg Normal 27.0-34.0 [facility] Comment on above: Performed By: #### 2 036562, 0049784, 3955281, 0004685, 21237773 ####[address] [address] MCHC (RBC) [Mass/Vol] 33.8 g/dL Normal 31.4-36.0 [facility] Comment on above: Performed By: #### 2 328804, 1468568, 8794212, 0636460, 93514997 ####[facility] [address] [place] [address] MCV (RBC) [Entitic vol] 95.5 fL Normal 80.0-100.0 [facility] Comment on above: Performed By: #### 2 540327, 6745586, 2713968, 3486141, 05083055 ####[address] [address] Platelet mean volume (Bld) [Entitic vol] 8.5 fL Normal 6.4-10.8 [facility] Comment on above: Performed By: #### 2 750691, 3415052, 7671774, 2611396, 67144274 ####[address] [address] Platelets (Bld) [#/Vol] 303.0 E9/L Normal 150.0-500.0 [facility] Comment on above: Performed By: #### 2 005197, 4577622, 7193907, 2237562, 63136810 ####[address] [address] RBC (Bld) [#/Vol] 4.0 E12/L Low 4.3-5.9 [facility] Comment on above: Performed By: #### 2 605618, 3211270, 6829738, 5468730, 00369333 ####[address] [place] [address] WBC corrected for nucl RBC Auto (Bld) [#/Vol] 8.1 E9/L Normal 4.0-11.0 [facility] Comment on above: Performed By: #### 2 065702, 1119813, 6450062, 2625891, 98037767 ####[address] [address] CHEMISTRYOrdered By: SYSTEM SYSTEM on 06-21-2023 Albumin [...] 06-21-2023 Albumin [Mass/Vol] 3.8 g/dL Normal 3.3-5.0 [facility] Comment on above: Performed By: #### 2 768868, 7767361, 5861381, 2478465, 02472442 ####[facility] [address] [place] [address] Albumin/Globulin [Mass ratio] 1.3 {ratio} Normal 1.1-2.2 [facility] Comment on above: Performed By: #### 2 155704, 4232606, 0079983, 3248938, 36836857 ####[facility] [address] [place] [address] Alk Phos 83 Int._Unit/L Normal 21-98 [facility] Comment on above: Performed By: #### 2 723761, 2062461, 9515506, 1796518, 23177065 ####[facility] [address] [place] [address] ALT 10 Int._Unit/L Normal 6-46 [facility] Comment on above: Performed By: #### 2 801853, 5417516, 5934965, 5271337, 07166510 ####[facility] [address] [place] [address] Anion gap [Moles/Vol] 10 mmol/L Normal 6-16 [facility] Comment on above: Performed By: #### 2 465205, 8198200, 9174058, 9559921, 67342518 ####[facility] [address] [place] [address] AST 15 Int._Unit/L Normal 5-43 [facility] Comment on above: Performed By: #### 2 512921, 2069612, 2237670, 6056458, 87240806 ####[facility] [address] [place] [address] Bili Total 0.5 mg/dL Normal 0.0-1.1 [facility] Comment on above: Performed By: #### 2 770896, 9361509, 3373708, 3263154, 82599547 ####[facility] [address] [place] [address] BUN/Creat Ratio 22 No Units High 10-20 [facility] Comment on above: Performed By: #### 2 864075, 3109071, 7110796, 3683777, 76835735 ####[facility] [address] [place] [address] Calcium [Mass/Vol] 8.7 mg/dL Low 8.9-11.1 [facility] Comment on above: Performed By: #### 2 276725, 4198181, 7822227, 0981685, 18437152 ####[facility] [address] [place] [address] Chloride [Moles/Vol] 103 mmol/L Normal 101-111 [facility] Comment on above: Performed By: #### 2 758268, 6318430, 5782138, 2652663, 94175639 ####[facility] [address] [place] [address] CO2 [Moles/Vol] 29 mmol/L Normal 21-31 [facility] Comment on above: Performed By: #### 2 439174, 0550431, 9462841, 0383506, 27625828 ####[facility] [address] [place] [address] Creatinine [Mass/Vol] 0.6 mg/dL Normal 0.5-1.3 [facility] Comment on above: Performed By: #### 2 [id number], [id number], 4368737, [id number], [id number] ####[facility] [address] [place] [address] Globulin (S) [Mass/Vol] 3.0 g/dL Normal 1.4-4.0 [facility] Comment on above: Performed By: #### 2 [id number], 3834139, 5224681, 6128258, [id number] ####[facility] [address] [place] [address] Glucose [Mass/Vol] 84 mg/dL Normal 55-199 [facility] Comment on above: Performed By: #### 2 920324, 0713501, 0821907, 8378649, [id number] ####[facility] [address] [place] [address] Potassium [Moles/Vol] 3.9 mmol/L Normal 3.5-5.3 [facility] Comment on above: Performed By: #### 2 158308, 6106146, 5561627, 0413991, [id number] ####[facility] [address] [place] [address] Protein [Mass/Vol] 6.8 g/dL Normal 6.0-7.8 [facility] Comment on above: Performed By: #### 2 162054, 2382642, 1101073, 1929732, [id number] ####[facility] [address] [place] [address] Sodium [Moles/Vol] 138 mmol/L Normal 135-145 [facility] Comment on above: Performed By: #### 2 926274, 0569779, 1021317, 1519367, [id number] ####[facility] [address] [place] [address] Urea nitrogen [Mass/Vol] 13 mg/dL Normal 5-21 [facility] Comment on above: Performed By: #### 2 559265, 4991507, 0877333, 8270921, [id number] ####[facility] [address] [place] [address] Consent for Treatmenton 123 Consent for Treatment [id number]#1.00TIFF Normal [facility] Free T4on 06-21-2023 Free T4 [Mass/Vol] 1.37 ng/dL Normal 0.58-1.64 [facility] Comment on above: Performed By: #### 2 182176, 6944384, 8897566, 9542357, [id number] ####[facility] [address] [place] [address] HEMATOLOGYOrdered By: SYSTEM SYSTEM on 06-21-2023 Basophils/100 [...] 8.1 E9/L Normal 4.0 - 11.0 E9/L [facility] HemeAutoSS Physician Orderon 06-21-2023 Physician Order [id number]#1.00TIFF Normal [facility] T3 Uptakeon 06-21-2023 T3 Uptake 46.6 % Normal 32.0-48.4 [facility] Comment on above: Performed By: #### 2 802109, 6995412, [id number], [id number] ####[facility] [address] [place] [address] T4 Totalon 06-21-2023 T4 18.8 microgram/dL High 4.6-9.1 [facility] Comment on above: Performed By: #### 2 023141, 9947776, [id number], 0819658 ####[facility] [address] [place] [address] TSHon 06-21-2023 TSH Qn 0.07 m[IU]/L Low 0.34-5.60 [facility] Comment on above: Performed By: #### 2 698731, 1387716, 38045759, [id number] ####[facility] [address] [place] [address] eGFRon 06-21-2023 GFR/1.73 sq M.predicted among non-blacks MDRD (S/P/Bld) [Vol rate/Area] mL/min/{1.73_m2} Normal >=59 [facility] Comment on above: Order Comment: Order added by Discern Expert. Performed By: #### 2 920487, 7002592, 6427097, 9807112, [id number] ####[facility] [address] [place] [address] Family Medicine Office/Clini c Noteon 06-20-2023 Family [...] with voice recognition software. Occasional wrong-word or ?spnro-a-jvvi? substitutions may have occurred due to the [...] know she has been working with her AUTOMATED ACCESS SYSTEMS TECHNICIAN in regards to blood test and lab [...] lost some weight. 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 Normal [facility] Comment on above: Result Comment: Elec [...] weeks. Home care treatment may include: ? Hkfx-mzc-uspjtyg pain relievers. ? A warm, moist cloth placed over the ear. Severe cases may require a procedure to insert tubes in the ears (tympanostomy tubes) to drain the fluid. Follow these instructions at home: ? Take rmzx-grv-yfhohwj and prescription medicines only as told by [...] provider. Document Revised: 10/04/2021 Document Reviewed: 10/04/2021 [employer] Patient Education ? 2022 [employer]. Endocrinology Thyroid Nodule A thyroid nodule is [...] (more content not included)... Normal [facility] MRI Spine Cervical w/o Contr elvira [...] YAMINI Technologist: CAPRI Technical Comments None Normal [facility] Consent for Treatmenton 05-23 Consent for Treatment [id number]#1.00TIFF Normal [facility] RAD - MRI Screening Formon 1 08-10-2022 RAD - MRI Screening Form [id number]#1.00TIFF Normal [facility] Physician Orderon 06-03-2023 Physician Order [id number]#1.00TIFF Normal [facility] Consent for Treatmenton Consent for Treatment [id number]#1.00TIFF [facility] Physician Orderon 04-28-2023 Physician Order [id number]#1.00TIFF [facility] XR Spine Cervical 4 or [...] Signed by: Cassius Ernst MD Transcribed by: AYMINI Technologist: DIPTI Technical Comments Radiation Dose: Ka,r in mGy = na DAP = na [facility] EMG Electromyographyon 01-21 EMG Electromyography [id number]#1.00CD:127 Normal [facility] Consultation Noteon 01-16-20 Consultation Note [id number]#1.00CD:127 Normal [facility] Auth for Release of Medical Recordson 12-17-2022 Auth for Release of Medical Records [id number]#1.00CD:127 Normal [facility] CHEMISTRYOrdered By: SYSTEM SYSTEM on 12-03-2021 Free T4 [Mass/Vol] 0.66 ng/dL Normal 0.58 - 1.64 ng/dL [facility] Remisol Glucose post fast [Mass/Vol] 90 mg/dL Normal 55 - 99 mg/dL [facility] Remisol TSH Qn 2.54 m[IU]/L Normal 0.34 - 5.60 mcIU/mL FT Remisol Reference Laboratory Testing Ordered By: [facility] DomainUser on 07-13-2021 SARS-CoV-2 (COVID-19) RNA KEITH+probe Ql (Resp) Not detected Invalid Interpretation Code Not Detected [facility] [employer]OutsSS Comment on above: Result Comment: This nucleic acid amplification test was developed and its performance characteristics determined by [employer]. Nucleic acid amplification tests include RT-PCR and [...] detected) result in this assay. Performed at: [address] [id number] PhD Mahnaz Conklin Vital Signs Date Time Vital Sign Value Performing Clinician Facility 11-12-2023 12:45-0400 Blood Pressure Location [facility] Bethira [facility] 11-12-2023 12:45-0400 Diastolic blood pressure 76 mm[Hg] [facility] Andremyraira [facility] 11-12-2023 12:45-0400 Heart rate 72 /min [facility] 11-12-2023 12:45-0400 SaO2% (BldA) [Mass fraction] 99 % Paul Gudimella [facility] 11-12-2023 12:45-0400 Systolic blood pressure 116 mm[Hg] Paul Gudimella [facility] 10-07-2023 10:22-0400 Blood Pressure Location Nancy BARRIENTOS [facility] 10-07-2023 10:22-0400 Body temperature 97.88 [degF] Nancy BARRIENTOS [facility] 10-07-2023 10:22-0400 Diastolic blood pressure 76 mm[Hg] Umanger BROWN [facility] 10-07-2023 10:22-0400 Heart rate 66 /min Nancy BARRIENTOS [facility] 10-07-2023 10:22-0400 Respiratory rate 16 /min Nancy BARRIENTOS [facility] 10-07-2023 10:22-0400 SaO2% (BldA) [Mass fraction] 100 % Nancy BARRIENTOS [facility] 10-07-2023 10:22-0400 Systolic blood pressure 116 mm[Hg] Christdeandraer BROWN [facility] 08-04-2023 11:27-0500 Body height 167.6 cm Marta Puente MD Work Phone: [facility] 08-04-2023 11:27-0500 Body mass index (BMI) [Ratio] 21.14 kg/m2 Marta Peunte MD Work Phone: [facility] 08-04-2023 11:27-0500 Body weight 59.42 kg Marta Puente MD Work Phone: [facility] 08-04-2023 11:27-0500 Diastolic blood pressure 81 mm[Hg] Marta Puente MD Work Phone: [facility] 08-04-2023 11:27-0500 Systolic blood pressure 111 mm[Hg] Marta Puente MD Work Phone: [facility] 07-24-2023 13:41-0500 Blood Pressure Location Paul Gudimella [facility] 07-24-2023 13:41-0500 Diastolic blood pressure 70 mm[Hg] Paul Gudimella [facility] 07-24-2023 13:41-0500 Heart rate 86 /min Paul Gudimella [facility] 07-24-2023 13:41-0500 SaO2% (BldA) [Mass fraction] 98 % Paul Gudimella [facility] 07-24-2023 13:41-0500 Systolic blood pressure 106 mm[Hg] Paul Gudimella [facility] 07-18-2023 16:16-0500 Blood Pressure Location Christopher BROWN [facility] 07-18-2023 16:16-0500 Diastolic blood pressure 60 mm[Hg] Christopher BROWN [facility] 07-18-2023 16:16-0500 Heart rate 92 /min Christopher BROWN [facility] 07-18-2023 16:16-0500 Respiratory rate 16 /min Christopher BROWN [facility] 07-18-2023 16:16-0500 SaO2% (BldA) [Mass fraction] 98 % Nancy BARRIENTOS [facility] 07-18-2023 16:16-0500 Systolic blood pressure 90 mm[Hg] Nancy BARRIENTOS [facility] 06-24-2023 13:49-0500 Blood Pressure Location Paul Gudimella [facility] 06-24-2023 13:49-0500 Diastolic blood pressure 72 mm[Hg] Paul Gudimella [facility] 06-24-2023 13:49-0500 Heart rate 89 /min Paul Gudimella [facility] 06-24-2023 13:49-0500 SaO2% (BldA) [Mass fraction] 97 % Paul Gudimella [facility] 06-24-2023 13:49-0500 Systolic blood pressure 98 mm[Hg] Paul Gudimella [facility] 06-20-2023 18:43-0500 Blood Pressure Location Filiberto Cramer [facility] 06-20-2023 18:43-0500 Body temperature 98.06 [degF] Filiberto Cramer [facility] 06-20-2023 18:43-0500 Diastolic blood pressure 76 mm[Hg] Filiberto Cramer [facility] 06-20-2023 18:43-0500 Heart rate 96 /min Filiberto Cramer [facility] 06-20-2023 18:43-0500 SaO2% (BldA) [Mass fraction] 98 % Filiberto Cramer [facility] 06-20-2023 18:43-0500 Systolic blood pressure 122 mm[Hg] Filiberto Cramer [facility] 12-28-2021 11:20-0400 Body height 167.64 cm Ric Tinoco Other [facility] Other 12-28-2021 11:20-0400 Body mass index (BMI) [Ratio] 21.14 kg/m2 Ric Tinoco Other [facility] Other 12-28-2021 11:20-0400 Body weight 59.42 kg Ric Tinoco Other [facility] Other 04-17-2021 15:40-0400 Body height 167.64 cm Ric Tinoco Other [facility] Other 04-17-2021 15:40-0400 Body mass index (BMI) [Ratio] 21.14 kg/m2 Richalle Tinoco Other [facility] Other 04-17-2021 15:40-0400 Body weight 59.42 kg Ric Alejandrina Other [facility] Other 05-31-2020 15:50-0500 Body weight 63.96 kg [employer] , [place] 05-31-2020 15:50-0500 BP Diastolic 79 mm[Hg] [facility] [place] 05-31-2020 15:50-0500 BP Systolic 107 mm[Hg] [facility] [place] 05-31-2020 15:50-0500 Pulse (Heart Rate) 67 /min [facility] [place] 05-31-2020 15:50-0500 Pulse Oximetry 100 % [facility] , [place] 05-31-2020 15:50-0500 Respiratory Rate 20 /min Kathy Pereira [facility] [place] Encounters Encounter Date Encounter Type Care Provider Facility Start: 11-12-2023 End: 11-13-2023 ambulatory Paul Camposerikakeysha Facility:[facility] Start: 11-12-2023 End: 11-12-2023 Patient encounter procedure Paul Bass [facility] Start: 10-21-2023 End: 10-22-2023 ambulatory PETRA MORELAND Not Available Start: 10-21-2023 End: 10-21-2023 Patient encounter procedure AMAIRANI Charley SUMI [facility] Start: 10-07-2023 End: 10-08-2023 ambulatory Nancy BARRIENTOS Facility:[facility] Start: 10-07-2023 End: 10-07-2023 Patient encounter procedure Nancy BARRIENTOS [facility] Start: 09-10-2023 End: 09-11-2023 ambulatory AMAIRANI Charley SUMI Facility:[facility] Start: 09-10-2023 End: 09-10-2023 Patient encounter procedure JOSEFINATAMIKO Charley SUMI [facility] Start: 08-04-2023 Bamboo flowsheet Marta Carballo is Work Phone: [facility] Start: 08-04-2023 Scoobyo flowsheet Marta Carballo is Work Phone: [facility] Start: 08-04-2023 End: 08-04-2023 ambulatory MARTA WEBBS Not Available Start: 08-04-2023 End: 08-04-2023 Office outpatient visit 15 minutes Marta Puente MD Work Phone: [facility] Comment on above: Mass of thyroid nadir on (Primary Dx); Hyperthyroidism (CMS/HCC) Start: 07-29-2023 ambulatory Umangsanjeev BARRIENTOS [facility] ity:[facility] Start: 07-24-2023 End: 07-25-2023 ambulatory Paul Gudimella Facility:[facility] Start: 07-24-2023 End: 07-24-2023 Patient encounter procedure Paul Gudimella [facility] Start: 07-18-2023 End: 07-19-2023 ambulatory Rosendoeduardo [facility] Facility:[facility] Start: 07-18-2023 End: 07-18-2023 Patient encounter procedure Nancy BARRIENTOS [facility] Start: 07-18-2023 End: 07-19-2023 ambulatory Paul Gudimella Facility:[facility] Start: 07-18-2023 End: 07-18-2023 Patient encounter procedure Paul Gudimella [facility] Start: 07-14-2023 End: 07-14-2023 ambulatory MD Ruben Barrientos Work Phone: [facility] Work Phone: Start: 07-14-2023 End: 07-14-2023 Departed Referred MD Ruben Barrientos Work Phone: [facility] Start: 07-08-2023 End: 10-08-2023 ambulatory Paul Gudimella Facility:[facility] Start: 07-08-2023 End: 10-07-2023 Recurring Paul Gudimella [facility] Start: 07-04-2023 End: 07-04-2023 ambulatory MARTA PUENTE Not Available Start: 06-27-2023 ambulatory Paul Gudimella Facilit y:[facility] Start: 06-27-2023 End: 06-28-2023 ambulatory Paul Gudimella Facility:[facility] Start: 06-27-2023 End: 06-27-2023 Patient encounter procedure Paul Gudimella [facility] Start: 06-24-2023 End: 06-25-2023 ambulatory Apul Gudimella Facility:[facility] Start: 06-24-2023 End: 06-24-2023 Patient encounter procedure Paul Gudimella [facility] Start: 06-21-2023 End: 06-22-2023 ambulatory Filiberto Cramer Facility:[facility] Start: 06-21-2023 End: 06-21-2023 Patient encounter procedure Filiberto Cramer [facility] Start: 06-20-2023 End: 06-21-2023 ambulatory Filiberto Cramer Facility:[facility] Start: 06-20-2023 End: 06-20-2023 Patient encounter procedure Filiberto Cramer [facility] Start: 06-09-2023 End: 06-10-2023 ambulatory Narendranath Lakshmipathy Facility:[facility] Start: 06-09-2023 End: 06-09-2023 Patient encounter procedure Narendranath Lakshmipathy [facility] Start: 05-07-2023 End: 05-07-2023 ambulatory KRAIG PARK Not Available Start: 04-28-2023 ambulatory Anitra BARRIENTOS Facility: [facility] Start: 04-28-2023 End: 04-29-2023 ambulatory EBER CASTANEDA Facility:[facility] Start: 04-28-2023 End: 04-28-2023 Patient encounter procedure EBER CASTANEDA [facility] Start: 11-05-2022 End: 11-06-2022 ambulatory SHARONA WILKINSTRAYMICHELLE . Facility:[facility] Start: 10-22-2022 End: 10-22-[address] DOCTOR ALEJANDRE Facility:[facility] Start: 10-01-2022 End: 10-02-2022 ambulatory ISAURA KELLY . Facility:[facility] Start: 08-27-2022 End: 08-27-2022 ambulatory Ric Tinoco Other [place] [employer] Other Start: 08-27-2022 Telephone encounter Ric Tinoco [facility] Start: 06-11-2022 End: 06-12-[address] HERB RIVERO . Facility:[facility] Start: 05-28-2022 End: 05-28-[address] HERB RIVERO . Facility:[facility] Start: 03-05-2022 End: 03-06-[address] HERB RIVERO . Facility: Start: 12-28-2021 End: 12-28-2021 ambulatory Ric Tinoco Other [facility] Other Start: 12-28-2021 Office outpatient visit 15 minutes Ric Tinoco [facility] Start: 12-03-2021 End: 12-03-2021 Patient encounter procedure Kraig Park [facility] Start: 11-08-2021 End: 11-09-[address] HERB RIVERO . Facility: Start: 07-13-2021 End: 10-11-2021 Patient encounter procedure Nancy BARRIENTOS [facility] Start: 04-17-2021 Office outpatient visit [address] [facility] Start: 05-31-2020 End: 05-31-2020 Emergency department patient visit KATHY GHOSH [facility] Start: 05-31-2020 End: 05-31-2020 Emergency department patient visit Kathy Ghosh Work Phone: [facility] ED Comment on above: Chest wall pain (Brunilda michelet Dx) Start: 12-30-2018 End: 01-07-2019 Patient encounter procedure PROVIDER UNKNOWN Facility:[facility] Procedures Date Procedure Procedure Detail Performing [...] anterior approach Nancy BARRIENTOS Comment on above: [facility] Start: 06-19-2018 Removal of sebaceous cyst Nancy BARRIENTOS Comment on above: Right inner thigh Start: 06-23-2006 Augmentation mammoplasty Nancy BARRIENTOS H/O: hysterectomy S/P laparoscop ic hysterectomy MD Ruben Barrientos Work Phone: laparoscopy 4 Nancy [facility] Comment on above: 2014 Dr. Redd- endo metriosis laparoscopy 5 Christopher [facility] Comment on above: 2014 Dr. Chantel narvaez metriosis lumbar microdisectomy 5 Rex BARRIENTOS Comment on above: 10/2017 Dr. Barnes @ [facility] lumbar microdisectomy 6 Rex BARRIENTOS Comment on above: 10/2017 Dr. Barnes @ [facility] 6 Nancy BIRCH Comment on above: per Dr. Glez 8 wisdom teeth extracted Ruben BARRIENTOS Plan of Treatment Date Care Activity Detail Author Start: 05-31-2026 Screening for malign ant neoplasm of cervix [facility] Start: 08-04-2023 End: 08-04-2023 Patient encounter procedure 08/04/2023 11:20 AM EST Office Visit [facility] [address] [facility] [address] [place] [address] Marat Puente MD [address] [facility] [address] [place] [address] Arrived [facility] Comment on above: Arrived Start: 02-21-2023 Influenza vaccination Influenza Vacc ine (#1) [facility] Start: 02-22-2020 Influenza vaccination Flu vaccine (# 1) [place], [place] Start: 2005 Screening for malign ant neoplasm of cervix Pap Smear [facility] EKG 12 Lead EKG 12 Lead ECG STAT 05/31/2020 4:01 PM EST [place] Immunizations Immunization Date Immunization Notes Care Provider Fa cility 10-28-2020 COVID-19, mRNA, LNP-S, PF, 30 mcg/0.3 mL dose; Translations: [Pfizer-BioNTech COVID-19 Vaccine] Nancy BARRIENTOS [facility] Comment on above: Reason for Medicatio n: Prophylaxis 10-07-2020 COVID-19, mRNA, LNP-S, PF, 30 mcg/0.3 mL dose; Translations: [Pfizer-BioNTech COVID-19 Vaccine] Nancy BARRIENTOS [facility] Comment on above: Reason for Medicatio n: Prophylaxis 04-15-2020 influenza, injectable, quadrivalent, contains preservative Nancy BARRIENTOS [facility] 04-15-2020 influenza virus vaccine, unspecified formulation Marta Puente MD Work Phone: [facility] 03-23-2018 influenza virus vaccine, unspecified formulation Nancy BARRIENTOS [facility] 03-10-2013 tetanus toxoid, reduced diphtheria toxoid, and acellular pertussis vaccine, adsorbed Rosendoeduardo BARRIENTOS [facility] Comment on above: Reason for Medicatio n: Other (see comment) 10-13-2007 tetanus toxoid, reduced diphtheria toxoid, and acellular pertussis vaccine, adsorbed Filiberto Cramer [facility] 10-24-1999 hepatitis A and hepatitis B vaccine Filiberto Cramer [facility] 01-25-1998 measles, mumps and rubella virus vaccine Filiberto Cramer [facility] NEGATED: Highlighted row has not occurred!07-18-2023 influenza virus vaccine, unspecified formulation Rosendoeduardo BARRIENTOS [facility] [place] NEGATED: Highlighted row has not occurred!06-20-2023 influenza virus vaccine, unspecified formulation Filiberto Cramer [facility] Payers Date Payer Category Payer Self-pay [id number] 2022 Medicaid [place] [employer] [id number] 2022-Present [address] [place] [address] [id number] 2022 Medicaid [id number] 2006 Private Health Insurance [id number] 1984 Unknown [id number] 2.16.840.1.700421.3.579.2.6 47 1984 Unknown [id number] 2.16.840.1.475677.3.579.2.1 74 1984 Unknown [id number] 2.16.840.1.213963.3.579.2.5 93 1984 Unknown [id number] 2.16.840.1.896623.3.579.2.5 93 1984 Unknown [id number] 2.16.840.1.945255.3.579.2.5 93 1984 Unknown [id number] 2.16.840.1.778336.3.579.2.5 93 1984 Unknown [id number] 2.16.840.1.359443.3.579.2.5 93 1984 Unknown [id number] 2.840.1.529055.3.579.2.5 93 1984 Unknown [id number] 2.16.840.1.710583.3.579.2.5 93 1984 Unknown [id number] 2.16.840.1.079248.3.579.2.1 259 1984 Unknown [id number] 2.16.840.1.408689.3.579.2.1 259 1984 Unknown [id number] 2.16.840.1.209427.3.579.2.1 259 1984 Unknown [id number] 2.16.840.1.747609.3.579.2.1 259 1984 Unknown [id number] 2.16.840.1.381356.3.579.2.7 27 1984 Unknown [id number] 2.16.840.1.181070.3.579.2.7 27 1984 Unknown [id number] 2.16.840.1.580345.3.579.2.7 27 1984 Unknown [id number] 2.16.840.1.727308.3.579.2.7 1984 Unknown [id number] 2.16.840.1.468217.3.579.2.7 1984 Unknown [id number] 2.16.840.1.832189.3.579.2.7 1984 Unknown [id number] 2.16.840.1.379058.3.579.2.7 1984 Unknown [id number] 2.16.840.1.105333.3.579.2.7 1984 Unknown [id number] 2.16.840.1.284101.3.579.2.7 1984 Unknown [id number] 2.16.840.1.916552.3.579.2.7 1984 Unknown [id number] 2.16.840.1.870768.3.579.2.7 1984 Unknown [id number] 2.16.840.1.280669.3.579.2.7 1984 Unknown [id number] 2.16.840.1.355507.3.579.2.7 1984 Unknown [id number] 2.16.840.1.653431.3.579.2.7 1984 Unknown [id number] 2.16.840.1.532768.3.579.2.7 1984 Unknown [id number] 2.16.840.1.808065.3.579.2.7 1984 Unknown [id number] 2.16.840.1.935089.3.579.2.7 1959 Private Health Insurance [id number] 1.2.840.764016.1.13.239.2.7 .3.906400.315 Unknown [id number] 2.16.840.1.810074.3.579.2.5 31 Social History Date Type Detail Facility Start: 05-31-2020 End: 11-12-2023 Tobacco smoking status NHIS Never smoker [employer] Start: 05-31-2020 End: 05-06-2023 Tobacco use and exposure Never used Twitter, [place] Sex Assigned At Not [facility] file [facility] Exposure to SARS-CoV -2 (event) Not sure [facility] [place] Tobacco smoking status Never [facility] Start: 07-03-2023 End: 07-04-2023 Sex Assigned At Female [facility] Other Start: 1985 Sex Assigned At Female [facility] Start: 07-31-2023 End: 08-04-2023 Alcohol intake [...] Gender identity Identifies as female gender (finding) [facility] Start: 05-06-2023 Sexual orientation Heterosexual (finding) [facility] Medical Equipment Procedure Code Equipment Code Equipment Origin al Text Equipment Identifier Dates Anterior lumbar interbody fusion (ALIF) STRATOFUSE DBM [id number] FDA Start: 12-06-2019 Anterior lumbar interbody fusion (ALIF) Orthopaedic bone screw, non-bioabsorbable, non-sterile +[id number] FDA Start: 12-06-2019 Anterior lumbar interbody fusion (ALIF) Orthopaedic bone screw, non-bioabsorbable, non-sterile +[id number] FDA Start: 12-06-2019 Anterior lumbar interbody fusion (ALIF) Bone-screw internal spinal fixation system, non-sterile +[id number] FDA Start: 12-06-2019 Anterior lumbar interbody fusion (ALIF) Bone-screw internal spinal fixation system, non-sterile +[id number] FDA Start: 12-06-2019 Anterior lumbar interbody fusion (ALIF) Spinal fusion graft kit ()[id number] FDA Start: 12-06-2019 Anterior lumbar interbody fusion (ALIF) Spinal bone screw, non-bioabsorbable ()[id number] FDA Start: 12-06-2019 Anterior lumbar interbody fusion (ALIF) Metallic spinal fusion cage, non-sterile ()[id number] FDA Start: 12-06-2019 Anterior lumbar interbody fusion (ALIF) Bone-screw internal spinal fixation system, non-sterile +[id number] FDA Start: 12-06-2019 Functional Status Date Assessment Result Facility 11-12-2023 Functional Status N/A [facility] 10-07-2023 Functional Status N/A [facility] 07-24-2023 Functional Status N/A [facility] 07-18-2023 Functional Status N/A [facility] 06-24-2023 Functional Status N/A [facility] 06-20-2023 Functional Status N/A [facility] Clinical Notes 04-17-2021 to 10-21-2023 LaboratoryHidenis Puente MD - 08/04/2023 11:20 AM ESTLaboratoryRadiologyLaboratoryLaboratoryLaboratory Note Date & Type Note Facility 10-21-2023 Evaluation + Plan note Diagnostic Tests PendingT3 Free 10/21/23 Future Scheduled TestsLab Miscellaneous-LC 07/24/23 [facility] 10-07-2023 Hospital Discharge instructions Patient Education 10/07/2023 [...] Treatment for this condition includes: Antibiotic medicine. Hhsd-qdk-tsylota medicines to treat discomfort. Drinking enough water [...] Follow these instructions at home: Medicines Take dxyb-omk-hgjutwn and prescription medicines only as told by [...] provider. Document Revised: 01/19/2021 Document Reviewed: 01/19/2021 [employer] Patient Education 2022 [employer]. Follow Up Care 10/07/2023 07:28:28 With:Nancy BARRIENTOS MD, FAM Address: When: only if needed [facility] [place] 08-04-2023 History of Present illness Narrative Subjective [...] per Dr Mcghee documented in this encounter [facility] 07-24-2023 Evaluation + Plan note Future Scheduled TestsLab Miscellaneous-LC 07/24/23Echo Transthoracic Complete 07/24/23 [facility] [place] 07-24-2023 Evaluation + Plan note Future Scheduled TestsLab Miscellaneous-LC 07/24/23 [facility] 07-18-2023 Evaluation + Plan note Diagnostic Tests PendingT3 Reverse, Serum 07/18/23Thyroid Perox.tpo Ab 07/18/23TgAb+Thyroglobulin,NIGEL or KELVIN 07/18/23 [facility] 07-18-2023 Hospital Discharge instructions Patient Education [...] surgery. Follow these instructions at home: Take pizf-ric-wworook and prescription medicines only as told by [...] condition. Where to find more information [employer] [place] of Diabetes and Digestive and Kidney Diseases: [...] provider. Document Revised: 08/02/2022 Document Reviewed: 08/02/2022 [employer] Patient Education 2022 [employer] Follow Up Care 07/18/2023 07:34:13 With:Nancy BARRIENTOS MD, FAM Address: When: only if needed [facility] [place] 06-21-2023 Evaluation + Plan note Diagnostic Tests PendingT3 Free 06/21/23 Future Scheduled TestsCBC w/ Auto Diff 06/20/23Comprehensive Metabolic Panel 06/20/23Free T4 06/20/23 [facility] 06-20-2023 Hospital Discharge instructions Patient Education [...] few weeks. Home care treatment may include: Xmjj-rvd-khzdnlb pain relievers. A warm, moist cloth placed over the ear. Severe cases may require a procedure to insert tubes in the ears (tympanostomy tubes) to drain the fluid. Follow these instructions at home: Take gwyn-uis-lzrzfhx and prescription medicines only as told by [...] provider. Document Revised: 10/04/2021 Document Reviewed: 10/04/2021 [employer] Patient Education 2022 [employer] 06/20/2023 19:03:16 Thyroid Nodule Thyroid Nodule [...] in your thyroid nodule or nodules. Take rnwl-qpy-uqzgppq and prescription medicines only as told by [...] provider. Document Revised: 04/22/2022 Document Reviewed: 04/22/2022 [employer] Patient Education 2022 [employer]. Follow Up Care 06/20/2023 07:23:01 With:Nancy BARRIENTOS MD, FAM Address: [address] [place], [place] [id number]- When: Unknown [facility] 06-20-2023 Evaluation + Plan note Future Scheduled TestsT4 Total 06/20/23CBC w/ Auto Diff 06/20/23Comprehensive Metabolic Panel 06/20/23T3 Free 06/20/23T3 Uptake 06/20/23Thyroid Stimulating Hormone 06/20/23Free T4 06/20/23 [facility] 10-01-2022 Note CONSULTATION CONSULTATION [...] our patients to inform us about any gypj-ajc-srkyymy medications or herbal remedies/nutritional supplements/alternative remedies. 2. [...] options with their primary care provider. [facility] 06-11-2022 Note CONSULTATION CONSULTATION DATE: 06/11/2022 [...] and concurs. CC: Nancy Barrientos M.D. [facility] 03-05-2022 Note PAIN MANAGEMENT CONS ULTATION [...] along this region. CC: Dr. Barrientos [facility] 12-28-2021 Evaluation note Encounter Date Diagnosis Assessment Notes Dec, Spinal stenosis of lumbar region with neurogenic claudication (ICD-10 - M48.062) 08 Len, 2022 Spondylolisthesis at L5-S1 level (ICD-10 - M43.17) [...] follow her up on an as-needed basis [facility] 06-13-2022 Evaluation + Plan note Diagnostic Tests Pending * Insulin Level Total 12/03/21 * T3 Free 12/03/21 * FSH Level 12/03/21 Future Scheduled Tests Laboratory* COVID-19 ([facility]) 07/13/21 [facility]05-19-2022 NoteCONSULTATION CONSULTATION DATE: 11/08/2021 This is [...] does plan on seeing Dr. Damon in [place] for. Activities that aggravate her neck are [...] and would like to proceed. [facility] Signed and Approved by: ISAURA KELLY . 11/12/2021 15:05:00[facility]01-21-2022 Evaluation + Plan note Future Scheduled Tests Laboratory* COVID-19 ([facility]) 07/13/21 [facility]10-26-2021 Evaluation note* Encounter Date Diagnosis Assessment Notes Treatment Notes Treatment Clinical Notes Mar, Spondylolisthesis at L5-S1 level (ICD-10 - M43.17) I answered a number of questions for the patient. I think a transforaminal injection may be beneficial. I also believe that she could potentially benefit from a dorsal column stimulator. She is seeing a another neurologist at [facility] and I am interested in what [...] region with neurogenic claudication (ICD-10 - M48.062) [facility] Other evaluation + Plan note Future Appointments Appointment Date:06/27/2023 07:30:00 AM Scheduled Provider: [facility] Appointment Type:US Thyroid/Neck/Chest (FT) Appointment Date:06/27/2023 08:00:00 AM Scheduled Provider: [facility] Appointment Type:CV EKG () Appointment Date:07/29/2023 12:40:00 PM Scheduled Provider:Nancy BARRIENTOS MD Location:[facility] Appointment Type: Open Future Scheduled Tests Laboratory* UA With Cult Reflex 06/24/23 * CBC w/ Auto Diff 06/20/23 * Comprehensive Metabolic Panel 06/20/23 * Lipid Panel 06/24/23 * Free T4 06/20/23 Radiology* US Thyroid 06/27/23 [facility] [place] Evaluation + Plan note Future Appointments Appointment Date:07/29/2023 12:40:00 PM Scheduled Provider:Nancy BARRIENTOS MD Location:[facility] Appointment Type: Open Future Scheduled Tests Laboratory* UA With Cult Reflex 06/24/23 * CBC w/ Auto Diff 06/20/23 * Comprehensive Metabolic Panel 06/20/23 * Lipid Panel 06/24/23 * Free T4 06/20/23 Radiology* US FNA w/ Guidance, first lesion 06/27/23 * NM Thyroid Imaging w/ Uptk Multiple 06/27/23 [facility] Future Appointments Appointment Date:09/11/2023 08:00:00 AM Scheduled Provider: [facility] Appointment Type:CV Echo () Diagnostic Tests Pending * T3 Free 09/10/23 * Thyrotropin Receptor Antibody, Serum 09/10/23 Future Scheduled Tests Laboratory* Lab Miscellaneous-LC 07/24/23 Radiology* Echo Transthoracic Complete 09/11/23 [facility] noteNo InformationNortWV[facility] Other evaluation noteNo assessment information available [facility] Work Phone: Evaluation note* Diagnosis Mass of [...] ALIF-Doctor Tinoco Hospitalization History see surgical hx [facility] Other Hospital course Narrative No data available for this section [facility] No data available for this section [facility] No data available for this section [facility] Summary Purpose Family History No Family History Records Found Relationship Condition Age at Onset Recorded Date/T rody Not Specified Healthy female adult Unknown father Osteoarthritis Unknown Degeneration of intervertebral disc Unkno wn Advance Directives No Advanced Directives Records FoundDocuments on File Type Date Recorded Patient Precision Lens Technician Expl anation ACP-Advance Directive ACP-Power of Yarder Puncher Advance 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 * Chest Pain: Musculoskeletal (Divehi) documented in this encounter Assessments Diagnosis Chest wall pain Painful respiration Reason for Referral Reason Evaluate and Treat C onsider for Dorsal Column Stimulator Diagnosis 1 Spondylolisthesis at L5-S1 level (M43.17) Referral Organization [facility] Ne urosurgery Referring Provider First Name Ric Referring Provider Last Name Alejandrina Referring Provider Specialty Neurologica l Surgery Referred Organization Unknown Facility Referred Provider Mansoor Summers Referred Provider Specialty Pain Medicin e Referral Priority Routine Additional Source Comments INFORMATION SOURCE (unrecogn ized section and content) DATE CREATED AUTHOR 01/14/2020 [facility] DATE CREATED AUTHOR AUTHOR'S ORGANIZ ATION 06/01/2020 [facility] DATE CREATED AUTHOR AUTHOR'S ORGANIZ ATION 11/06/2022 [facility] DATE CREATED AUTHOR AUTHOR'S ORGANIZ ATION 08/01/2023 [facility] DATE CREATED AUTHOR AUTHOR'S ORGANIZ ATION 10/22/2023 [facility] EP[facility] DATE CREATED AUTHOR AUTHOR'S ORGANIZ ATION 11/14/2023 [facility] Reason for Visit (unrecogniz ed section and [...] July 14, 2023 End: July 14, 2023 Monotype Keyboard Operator Relationship Specialty Start Date End Date Nancy Barrientos MD [address] [place] [address] PCP - General 05/07/23 Monotype Keyboard Operator Relationship Specialty Start Date End Date Nancy Barrientos MD [address] [place] [id number] PCP - General 05/07/23 Goals (unrecognized section [...] BE BASED ON THE PRIMARY CLINICAL RECORDS. [facility] [employer] [facility]. provides no warranty or guarantee of the accuracy or completeness of information in this document.
[2023-11-25 08:16] VITALS: BP 103/79; PULSE 63; TEMP 36.6; O2SAT 98
[2023-11-25 09:18] VITALS: BP 105/73; PULSE 58; O2SAT 95
[2023-11-25] MEDS: BUPIVACAINE HCL 0.25% PF 25 MG/10 ML VIAL 4 ML INJ (09:19)
[2023-11-25 09:20] VITALS: BP 106/72; PULSE 57; O2SAT 95
--- NOTE | 2023-11-25 09:50 | P.ON_ITS ---
Date of procedure: 11/25/23 Pre-op diagnosis: cervical spondylosis Post-op diagnosis: same as pre-op Procedure: Right cervical 3/4, 4/5 medial branch block Under fluoroscopic guidance Solution injected: 2millilitersMarcaine 0.25% Anesthesia :none Immediate complications none Time out process compliant After informed consent obtained from the patient placed in the Prone proposition. area was prepped and draped in a sterile fashion using Cloraprep .25 gauge spinal needle inserted over each of the above mentioned target areas. [place] were directed towards the target under fluoroscopic guidance. after encountering each of the targets , no indication of intravascular intraneuronal or intrathecal needle tip placement. Then 0 .5 to 1 Milliliter was injected at each level. [place] removed postoperatively. patient transferred to recovery in stable condition to be discharged home after meeting criteria Anesthesia: Local Surgeon: Sharona Thompson Condition: stable Disposition: PACU
== END 2023-11-25 09:28 | disposition home or self-care (01) ==
PROVIDERS: Visit Provider Anesthesiology Pain Medicine
DX: M47.812 Spondylosis without myelopathy or radiculopathy, cervical region (principal)
CPT/HCPCS: 64490; 64491

== ENCOUNTER 2023-12-03 08:05 | Outpatient (OUT) | payer MEDICAID, SELFPAY ==
--- NOTE | 2023-12-03 08:02 | P.CN_ITS ---
Consult Note: HPI Data of Consult Patient: known to practice within the last 3 years Requesting Physician: Radni Potts NP Primary Care Provider: Non-Staff Physician, MD Consult Narrative Reason for consult: F/u Narrative: Emily Valiente a pleasant 38 year old female presents for evaluation and management of chronic pain. Today neck pain is 6/10 increasing to 8/10. Pain increases with bending and activity. Patient reporting increase in right trapezius muscle pain and tightness, previously had significant benefit to TPI with Dr Thompson for 2 weeks, no ongoing improvement. Patient finds benefit with current medication regimen, no side effects. Active in HEP and aquatherapy. Recently underwent right C3/4 C4/5 facet medial branch block #1 with >80% improvement in pain and functional ability greater than 2 hours. cc:: CC: Randi Potts NP Review of Systems 2 ROS0 Status of ROS 10 or more systems reviewed and unremark able except as noted in history and below Musculoskeletal Reports: neck pain PFSH PFSH Medical History Migraines ?G43.909 - Migraine, unspecified, not intractable, without status migrainosus (ICD-10) Chronic pharyngitis ?J31.2 - Chronic pharyngitis (ICD-10) Endometriosis determined by laparoscopy ?N80.9 - Endometriosis, unspecified (ICD-10) Hyperthyroidism ?E05.90 - Thyrotoxicosis, unspecified without thyrotoxic crisis or storm (ICD-10) Neck pain ?M54.2 - Cervicalgia (ICD-10) Low back pain ?M54.50 - Low back pain, unspecified (ICD-10) Numbness and tingling ?R20.0 - Anesthesia of skin (ICD-10) ?R20.2 - Paresthesia of skin (ICD-10) Surgical History S/P fine needle aspiration ?Z98.890 - Other specified postprocedural states (ICD-10) History of lumbar fusion ?Z98.1 - Arthrodesis status (ICD-10) H/O breast implant ?Z98.82 - Breast implant status (ICD-10) Hx of breast implants, bilateral ?Z98.82 - Breast implant status (ICD-10) Status post lumbar surgery ?Z98.890 - Other specified postprocedural states (ICD-10) H/O: hysterectomy ?Z90.710 - Acquired absence of both cervix and uterus (ICD-10) S/P T&A (status post tonsillectomy and adenoidectomy) ?Z90.89 - Acquired absence of other organs (ICD-10) Hx of laparoscopy ?Z98.890 - Other specified postprocedural states (ICD-10) H/O breast augmentation ?Z98.82 - Breast implant status (ICD-10) Meds Home Medications and Allergies Home Medications ?Medication ?Instructions ?Recorded ?Confirmed ?Type baclofen 10 mg tablet 10 mg PO BID 12/04/22 11/25/23 History erenumab-aooe 70 mg/mL 140 mg subcut .MONTH 12/04/22 11/25/23 History subcutaneous auto-injector (Aimovig Autoinjector) oxcarbazepine 300 mg tablet 300 mg PO . 12/04/22 11/25/23 History tizanidine 4 mg tablet 4 mg PO . 12/04/22 11/25/23 History gabapentin 600 mg tablet 600 mg PO BEDTIME #30 tabs 04/17/23 11/25/23 Rx biotin 1 tab PO DAILY 07/11/23 11/25/23 History collagen liquid 0.5 drp PO DAILY 07/11/23 11/25/23 History estradiol 2 mg tablet 2 mg PO DAILY 07/11/23 11/25/23 History gabapentin 100 mg capsule 150 mg PO .every morning 07/11/23 11/25/23 History oxcarbazepine 150 mg tablet 150 mg PO DAILY 07/11/23 11/25/23 History tramadol 50 mg tablet 50 mg PO TID PRN pain #90 tabs 10/27/23 11/25/23 Rx Allergies Allergy/AdvReac Type Severity Reaction Status Date / Time adhesive Allergy Rash Verified 11/25/23 08:20 latex Allergy Rash Verified 11/25/23 08:24 Exam Constitutional Documenting provider has reviewed patient's vital signs: yes Common normals: no apparent distress, oriented x3, healthy appearing, alert and well nourished General appearance: cooperative HENMT Common normals: normocephalic, hearing grossly normal bilaterally and moist oral mucous membranes Head and scalp: normocephalic Eye Common normals: PERRL Pupil: PERRL Neck & C-Spine Common normals: full ROM General: normal visual inspection Cervical spine: cervical ROM abnormal, pain with cervical ROM, paracervical muscle tenderness and trapezius muscle tenderness Other: negative spurlings, sensation intact BUE Chest Common normals: inspection of chest normal Respiratory Common normals: normal respiratory effort, no retractions and no use of accessory muscles Back & Pelvis Lumbar spine/lower back: ROM limited, pain with ROM and straight leg raise negative bilaterally Other: significant myofascial pain/tenderness and myofascial trigger points noted in below areas. no tenderness over suprascapular nerve and with deep palpation. Back image (female): 2 1. Extremity Common normals: normal to inspection and full ROM Right upper extremity: shoulder joint Other: right shoulder: strength 5/5, ROM intact, mild pain with overhead motions and posterior liftoff Extremity image (back): 2 1. Neuro Common normals: oriented x3, CN's II-XII intact bilaterally, moves all extremities, no focal motor deficits, no sensory deficits noted and deep tendon reflexes 2+ bilaterally Sensorium/orientation: alert Motor exam: strength 5/5 throughout and no movement abnormalities noted Psych Common normals: mental status grossly normal, thought process normal, cooperative, affect normal, speech normal and activity/motor behavior normal Speech: normal speech Thought process: normal thought process Results Additional Findings Additional findings: If on a controlled substance or opioids, I have checked an [place]AR[place] report on this patient and there are no aberrancies noted in the prescribing history.??If on a controlled substance or opioid a drug screen was completed and reviewed within the last year, and if there has not been a drug screen completed we ordered one today to monitor higher risk, state monitored pain medication use. As part of providing excellent, safe, comprehensive care, the following was completed at our patient's visit: 1. A medication reconciliation and review to ensure accurate knowledge of current/active medications, including asking our patients to inform us about any kvsd-fyw-lavadow medications or herbal remedies/nutritional supplements/alternative remedies. 2. A review to specifically ensure our patients have had annual screening for screening for depression, screening for tobacco use, and screening for unhealthy alcohol use. For concerning screenings had a discussion with the patient, provided patient education, and recommended follow-up with primary care provider when appropriate. If patient noted with a risk of falling, they received education on strength, gait, and balance training to prevent future risk of falling. Assessment and Plan Assessment and Plan (1) Cervical spondylosis: Assessment and Plan: The patient has had over 3 months of moderate to severe cervical spine pain with functional impairment and inadequate response to conservative care including NSAIDS (unless there are contraindication such as concurrent blood thinners), multiple oral or topical pain medications, and home exercise program/physical therapy.? Patient has completed >6 weeks of guided home exercise program and/or formal physical therapy program without relief of their symptoms.? I have reviewed the imaging of the cervical spine and no red flags were identified.? We discussed the risks and benefits of the procedure with the patient, and we are NOT planning on using sedation as outlined in the guidelines from Medicare unless there is a documented reason that sedation would be strongly recommended.?? ?The procedure will be completed with fluoroscopic guidance.? (2) Muscle spasm: (3) Cervical paraspinal muscle spasm: Assessment and Plan: improvement from prior TPI for 2 weeks, no ongoing improvement (4) Spasm of right trapezius muscle: (5) Chronic right shoulder pain: Plan right C3-4 C4-5 medial branch block x2 working towards RFA continue current medication regimen continue HEP and aquatherapy refer to Dr Thompson to assess and treat right trapezius muscle spasm and pain, likely myofascial and patient could benefit from series of TPI and PT. encouraged TENS use f/u 1 week after each injection
--- OUTSIDE RECORDS SUMMARY | 2023-12-03 08:15 | XMS_ITS | CCD ---
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] [Tape] Drug allergy Eruption of skin (disorder) [facility] (20 sources) Latex; Translations: [Latex] Drug allergy 5 Rash [facility] Other (3 sources) adhesive bandages Propensity to adverse reactions rash [facility] Other (1 source) Adhesive agent Drug allergy (disorder) 6 [facility]ository (1 source) Adhesive agent Drug allergy (disorder) 2 [facility] Repository (1 source) Adhesive Tape Drug allergy (disorder) 0 [facility] Repository (3 sources) Wound Dressing [...] course, # 28 cap(s), Refills(s) 0, Pharmacy: [facility], 168, cm, 07/11/20 8:27:00 EST, [...] Daily, # 90 tab(s), Refills(s) 1, Pharmacy: [facility], 168, cm, 07/11/20 8:27:00 EST, [...] nasal route once daily Flonase 0.05 mg/inh Clyde 2 spray(s), Nasal, Daily for 7 day(s), 16 gm, Refill(s) 0, each nostril, [facility], 168, cm, 06/20/23 18:45:00 EST, [...] BID, # 180 tab(s), Refills(s) 1, Pharmacy: [facility], 168, cm, 07/11/20 8:27:00 EST, Height/Length Dosing, 64.1, kg, 07/11/20 8:27:00 EST, Weight Dosing Start Date: 08/22/20 Status: Ordered loratadine 10 mg oral tablet (3 sources) Start: 02-23-2020 take 1 tablet by mouth once daily loratadine 10 mg Tab 10 mg = 1 tab(s), Oral, Daily, # 90 tab(s), Refills(s) 1, Pharmacy: [facility], 168, cm, 02/23/20 10:40:00 EDT, Height/Length Dosing, 65, kg, 02/23/20 10:40:00 EDT, Weight Dosing Start Date: 02/23/20 Status: Ordered Start: 11-30-2019 take 1 capsule by [facility] once daily loratadine (CLARITIN) 10 MG [...] Nausea/Vomiting, # 10 tab(s), Refills(s) 0, Pharmacy: [facility], 168, cm, 07/10/20 13:24:00 EST, [...] symptoms, # 30 tab(s), Refills(s) 0, Pharmacy: [facility], 168, cm, 10/07/23 10:32:00 EDT, Height/Length Dosing, 61, kg, 10/07/23 10:32:00 EDT, Weight Dosing Start Date: 10/07/23 Status: Ordered Start: 05-26-2020 take 1 tablet by jaden th twice daily as needed oxybutynin 5 mg Tab 5 mg = 1 tab(s), Oral, BID, PRN for urinary discomfort, # 60 tab(s), Refills(s) 2, Pharmacy: [facility], 168, cm, 05/26/20 16:32:00 EST, [...] breakfast, # 30 tab(s), Refills(s) 5, Pharmacy: [facility], 168, cm, 07/11/20 8:27:00 EST, [...] Once, # 1 tab(s), Refills(s) 0, Pharmacy: [facility], 168, cm, 07/24/23 13:48:00 EST, Height/Length Dosing, 61, kg, 07/24/23 13:48:00 EST, Weight Dosing Start Date: 07/24/23 Status: Ordered Protonix 40 mg Tab-EC (3 sources) Start: 02-06-2021 take 1 tablet by mouth once daily 30 minutes before breakfast Protonix 40 mg Tab-EC 40 mg = 1 tab(s), Oral, Daily, Take 30 minutes before breakfast, # 30 tab(s), Refills(s) 5, Pharmacy: [facility], 168, cm, 07/11/20 8:27:00 EST, [...] BID, # 60 tab(s), Refills(s) 2, Pharmacy: [facility], 168, cm, 11/08/21 9:50:00 EDT, Height/Length Dosing, 65.4, kg, 11/08/21 9:50:00 EDT, Weight Dosing Start Date: 01/18/22 Status: Ordered Start: 11-23-2020 take 1 tablet by jaden twice daily valacyclovir 1 g Tab 1 gram = 1 tab(s), Oral, BID, # 60 tab(s), Refills(s) 2, Pharmacy: [facility], 168, cm, 07/11/20 8:27:00 EST, Height/Length Dosing, 64.1, kg, 07/11/20 8:27:00 EST, Weight Dosing Start Date: 11/23/20 Status: Ordered Start: 11-23-2020 take 1 tablet by jaden twice daily valacyclovir 1 g Tab 1 gram = 1 tab(s), Oral, BID, # 60 tab(s), Refills(s) 2, Pharmacy: [facility], 168, cm, 07/11/20 8:27:00 EST, Height/Length Dosing, 64.1, kg, 07/11/20 8:27:00 EST, Weight Dosing Start Date: 11/23/20 Status: Ordered Completed/Discontinued Medications Medication Drug Class(es) Dates Sig (Normalized) Sig (Original) acetaminophen 325 mg / HYDROcodone bitartrate 5 mg oral tablet (2 sources) Opioid Agonist Start: 09-12-2017 End: 11-30-2019 take 1 tablet by mouth every four to six hours Hydrocodone-Acetami nophen ([place]) 5-325 mg tablet Discontinued 1 TAB PO EVERY 4-6 HOURS September 12, 2017 November 30, 2019 9:37am Start: 09-04-2017 End: 09-12-2017 take 1 tablet by mouth once daily at bedtime Hydrocodone-Acetaminophen ([place]) 5-325 mg Tablet Discontinued 1 TAB PO [...] Range Facil ity Consenton 11-12-2023 Consent [id number]#1.00TIFF Normal [facility] Consent [id number] E25#1.00TIFF Normal [facility] Family Medicine Office/Clini c Noteon 11-12-2023 [...] with voice recognition artificial intelligence software, specifically SimpliVT, ThinkSmart and or Silversky. Substitutions may have occurred due to the inherent limitations of voice recognition and artificial intelligence software. Documentation services were performed after patient or guardian consented to allow [employer] to record this visit. DEX patient resource specialist Perlita Dominguez and provider reviewed before [...] per year, 06/24/2023 Employment/School Employed, Work/School description: [employer]., 02/01/2019 Home/Environment Lives with Children, Spouse., [...] viru (more content not included)... Normal [facility] Comment on above: Result Comment: Elec tronically Signed By: Paul Bass MD\.br\Date and Time Signed: 11/12/23 14:07 EDT\.br\Electronically Co-Signed By: Tyrone Garciabr\Date and Time Co-Signed: 11/12/23 13:40 EDT T3 Freeon 10-22-2023 Free T3 [Mass/Vol] 2.9 pg/mL Invalid Interpretation Code 2.0-4.4 [facility] Comment on above: Result Comment: Perf ormed at: [facility] [address] [id number] PhD Mahnaz Conklin Performed By: #### 2 009320, [id number], [id number] ####[facility] [address] [place] [address] CHEMISTRYOrdered By: SYSTEM SYSTEM on 10-21-2023 Free T4 [Mass/Vol] 0.65 ng/dL Normal 0.58 - 1.64 ng/dL Remisol Chem TSH Qn 4.41 m[IU]/L Normal 0.34 - 5.60 mcIU/mL Remisol Chem Consent for Treatmenton 09-23 Consent for Treatment [id number]#1.00TIFF Normal [facility] Free T4on 10-21-2023 Free T4 [Mass/Vol] 0.65 ng/dL Normal 0.58-1.64 [facility] Comment on above: Performed By: #### 2 556078, 8864645, 0924875 ####[facility] [address] [place] [address] Physician Orderon 10-21-2023 Physician Order [id number]#1.00TIFF Normal [facility] TSHon 10-21-2023 TSH Qn 4.41 m[IU]/L Normal 0.34-5.60 [facility] Comment on above: Performed By: #### 2 994797, 5285485, 6646070 ####[facility] [address] [place] [address] Ambulatory Visit Summaryon 0 10-07-2023 Ambulatory Visit [...] urinary discomfort for bladder symptoms Pickup at [facility] 2452 Unchanged baclofen (baclofen 10 mg Tab) See [...] physician if questions or concerns Pharmacy Information [facility]: [id number] [phone] Allergies Latex Tape (Rash) Problems Ongoing - [...] a (more content not included)... Normal [facility] Family Medicine Office/Clini c Noteon 10-07-2023 [...] two weeks, she has not utilized any wqoc-yxp-jvrwuzt or old antibiotics, nor has she utilized [...] week. She is seeing Dr. Mcghee in [place] for her thyroid. She has been trying [...] Urnls Dip Stick Auto w/o Microscopy POC 96428 2. Thyroiditis, subacute (E06.1: Subacute thyroiditis) Continue following with Dr. Mcghee in [place] for management of the methimazole. 3. Lumbar [...] symptoms, # 30 tab(s), Refills(s) 0, Pharmacy: [facility], 168, cm, 10/07/23 10:32:00 EDT, Height/Length Dosing, 61, kg, 10/07/23 10:32:00 EDT, Weight Dosing Portions of this record may have been created with voice recognition artificial intelligence software, specifically SimpliVT, ThinkSmart and or Silversky. Substitutions may have occurred due to the [...] lumba (more content not included)... Normal [facility] Comment on above: Result Comment: Elec [...] this condition includes: ? Antibiotic medicine. ? Mfyf-bmf-oyorgmv medicines to treat discomfort. ? Drinking enough [...] these instructions at home: Medicines ? Take mrnt-rxb-cdzkona and prescription medicines only as told by [...] Document Revie (more content not included)... Normal [facility] T3 Freeon 09-13-2023 Free T3 [Mass/Vol] 1.5 pg/mL Low 2.0-4.4 [facility] Comment on above: Result Comment: Perf ormed at: [facility] [address] [id number] PhD Mahnaz Conklin Performed By: #### 2 277828, 5104668, 5752322, [id number], 6842176 ####[facility] [address] [place] [address] Thyrotropin Receptor Antibod y, Serumon 09-13-2023 TSH receptor Ab Qn (S) <1.10 Invalid Interpretation Code 0.00-1.75 [facility] Comment on above: Result Comment: Perf ormed at: [facility] [address] [id number] MD Enrico Dean Performed By: #### 2 193242, 4058970, 0533785, [id number], 3785826 ####[facility] [address] [place] [address] CHEMISTRYOrdered By: SYSTEM SYSTEM on 09-10-2023 Albumin [...] for Treatmenton 08-22 Consent for Treatment [id number]#1.00TIFF Normal [facility] Free T4on 09-10-2023 Free T4 [Mass/Vol] ng/dL Low 0.58-1.64 [facility] Comment on above: Performed By: #### 2 565894, 9043501, 4378178, 8157904391, 3693492 ####[facility] [address] [place] [place] [address] Hep Func Panelon 09-10-2023 Albumin [Mass/Vol] 4.2 g/dL Normal 3.3-5.0 [facility] Comment on above: Performed By: #### 2 701059, 5612510, 0390833, 0734989428, 1911402 ####[facility] [address] [place] [address] Albumin/Globulin (S) [Mass conc ratio] 1.4 Normal 1.1-2.2 [facility] Comment on above: Performed By: #### 2 244071, 3977597, 9571234, 1176803534, 7222300 ####[facility] [address] [place] [address] ALP [Catalytic activity/Vol] 66 Int._Unit/L Normal 21-98 [facility] Comment on above: Performed By: #### 2 574183, 0921060, 8287795, 6660884260, 4302586 ####[facility] [address] [place] [address] ALT No additional P-5'-P [Catalytic activity/Vol] 14 Int._Unit/L Normal 6-46 [facility] Comment on above: Performed By: #### 2 551290, 4760868, 3985593, 7095263224, 5906019 ####[facility] [address] [place] [address] AST [Catalytic activity/Vol] 22 Int._Unit/L Normal 5-43 [facility] Comment on above: Performed By: #### 2 810800, 3457275, 1579839, 2911423991, 2659257 ####[facility] [address] [place] [address] Bilirubin [Mass/Vol] 0.5 mg/dL Normal 0.0-1.1 [facility] Comment on above: Performed By: #### 2 406925, 3250362, 9013551, 2791759601, 5168593 ####[facility] [address] [place] [address] Bilirubin.direct [Mass/Vol] 0.1 mg/dL Normal 0.0-0.4 [facility] Comment on above: Performed By: #### 2 832793, 2784059, 6533229, 5237046355, 4821585 ####[facility] [address] [place] [address] Bilirubin.indirect [Mass or moles/Vol] 0.4 mg/dL Normal 0.1-0.9 [facility] Comment on above: Performed By: #### 2 405764, 5145678, 8938676, 6094688458, 8440843 ####[facility] [address] [place] [address] Globulin (S) [Mass/Vol] 3.0 g/dL Normal 1.4-4.0 [facility] Comment on above: Performed By: #### 2 348961, 4412950, 1933194, 4595414186, 7086489 ####[address] [place] [address] Protein [Mass/Vol] 7.2 g/dL Normal 6.0-7.8 [facility] Comment on above: Performed By: #### 2 316200, 4487998, 8617267, 6270720450, 0562425 ####[address] [place] [address] Physician Orderon 09-10-2023 Physician Order [id number]#1.00TIFF Normal [facility] TSHon 09-10-2023 TSH Qn 68.80 m[IU]/L High 0.34-5.60 [facility] Comment on above: Performed By: #### 2 523048, 2832383, 9283443, 8658523659, 6827920 ####[address] [place] [address] Consultation Noteon 08-12-19 24 Consultation Note [id number]#1.00TIFF Normal [facility] Insurance Correspondenceon 0 08-05-2023 Insurance Correspondence [id number]#1.00TIFF Normal [facility] Consultation Noteon 08-04-19 Consultation Note [id number]#1.00TIFF Normal [facility] .Thyroglobulin by RIAon 07-24 Thyroglobulin [Mass/Vol] 159 ng/mL High [facility] Comment on above: Result Comment: Conf irmed by dilution. This test was developed and its performance characteristics determined by [employer]. It has not been cleared or approved [...] quantitation limit is 2.0 ng/mL. Performed at: [facility] [address] [place] [address] [id number] MD Yadiel Cornell Performed By: #### 2 946059, 0876575, 02971271, 81499278, 328233841, 711158897 ####[facility] [address] [place] [address] T3 Reverseon 08-02-2023 T3.reverse [Mass/Vol] 31.2 ng/dL High 9.2-24.1 [facility] Comment on above: Result Comment: This test was developed and its performance characteristics determined by [facility]. It has not been cleared or approved by the Food and Drug Administration. Performed at: [address] [id number] MD Enrico Dean Performed By: #### 2 588564, 5751678, 71323729, 62591621, 624875891, 886674245 ####[facility] [address] [place] [address] TgAb+Thyroglobulinon 024 Thyroglobulin Ab Qn 2.7 International_Unit /mL High 0.0-0.9 [facility] Comment on above: Result Comment: Thyr oglobulin Antibody measured by Nakul Leslie Methodology Performed at: [facility] [address] [place], [place] [id number] PhD Mahnaz Conklin Performed By: #### 2 283215, 2931117, 51357069, 34584530, 796040868, 314284226 ####[facility] [address] [place] [address] Thyroid Perox.tpo Abon 08-02 TPO Ab Qn [IU]/mL Invalid Interpretation Code 0-34 [facility] Comment on above: Result Comment: Perf ormed at: [facility] [address] [place], [place] [id number] PhD Mahnaz Conklin Performed By: #### 2 966874, 7169669, 56099967, 65396314, 095790967, 339895021 ####[facility] [address] [place] [address] Family Medicine Office/Clini c Noteon 07-29-2023 Family [...] and imagi (more content not included)... Normal 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 SW will remain available. Normal [facility] Ambulatory Visit Summaryon 0 07-24-2023 Ambulatory [...] hormone level, Print Label By Order Location, [id number]\.br\ Echo Transthoracic Complete, 07/24/23, Routine, Order for future visit, Transport Mode: Ambulatory, Reason: Other (please specify), Reason: murmur, Heart murmur, pp_set_radiology_ subspecialty, [facility], [facility]\.br\ Medications\.br\ What How Much When Instructions\.br\ New propranolol (propranolol 10 mg Tab) 1 Tablets By Mouth Once Pickup at [facility]\.br\ Unchanged baclofen (baclofen 10 mg [...] if questions or concerns \.br\ Pharmacy Information\.br\ [facility]: [address] [phone]\.br\ Allergies\.br\ Latex\.br\ Tape (Rash)\.br\ Problems\.br\ Ongoing - [...] for choosing us for your care.\.br\ \.br\ [facility] Ambulatory Visit Summaryon 0 07-18-2023 Ambulatory [...] You smoke (more content not included)... Normal [facility] CHEMISTRYOrdered By: SYSTEM SYSTEM on 07-18-2023 Free T4 [Mass/Vol] 2.22 ng/dL High 0.58 - 1.64 ng/dL Remisol Chem TSH Qn 0.01 m[IU]/L Low 0.34 - 5.60 mcIU/mL Remisol Chem Clipboard Summaryon 07-18-19 24 Clipboard Summary {69-dr-o8-2d-15-1c -97-6d-p7-9a-b9-6d -cb-25-c2-ac}XML Normal [facility] Consent for Treatmenton 06-24 Consent for Treatment [id number]#1.00TIFF Normal [facility] Family Medicine Office/Clini c Noteon 07-18-2023 [...] and had a biopsy on Friday at [facility], carried out by the radiology department interventional [...] Nonicteric sclera. Oropharynx pink and moist. Adequate chemehuevi dentition. Anterior neck, there is a fullness [...] the pathology report on her phone from [facility] which indicates benign cellularity although admittedly [...] Dysphagia, unspecified) (more content not included)... Normal [facility] Comment on above: Result Comment: Elec tronically Signed By: JUAN LUIS REES, Nancy\.tarah\Date and Time Signed: 07/18/23 19:02 EST Free T4on 07-18-2023 Free T4 [Mass/Vol] 2.22 ng/dL High 0.58-1.64 [facility] Comment on above: Performed By: #### 2 373031, 8619551, 45134919, 46899857, 532116317, 541368005 ####[facility] [address] [place] [address] Patient Educationon 07-18-19 Patient Education Endocrinology Hyperthyroidism [...] Follow these instructions at home: ? Take xzfi-bww-ccehjjv and prescription medicines only as told by [...] Where to find more information ? National [employer] of Diabetes and Digestive and Kidney Diseases: [...] as u (more content not included)... Normal [facility] TSHon 07-18-2023 TSH Qn 0.01 m[IU]/L Low 0.34-5.60 [facility] Comment on above: Performed By: #### 2 674884, 0190733, 15644208, 19622881, 243216212, 024418294 ####[facility] [address] [place] [address] Mata 07-14-2023 L Specimen: Received: 07/15/23 Status: DENA Sifuentes Num: [id number] Spec Type: Cytology Subm Dr: MARTA PUENTE MD Tissues: A FNA SLIDES NOPATH (LT THYROID NOD) Procedures: Cyto Int and Re, PAPSTN/5 Age/ Patient Sex Location Account Attending Physician Jessica Griffiths 37/F [facility] [id number] MARTA PUENTE MD SPEC NUM: [id number] RECD: 07/15/23 STATUS: DENA REQ NUM: [id number] KANCHAN: 07/14/23- SUBM DR: MARTA PUENTE MD ENTERED: 07/15/[address]: Neno Quiroz SPEC TYPE: Cytology DEPT: ROYER ENGEL ENTERED BY: [id number] RECV BY: [id number] ORDERED: Cyto Int and Re, PAPSTN/5 ORDERED: Cyto Int and Re, PAPSTN/5 Pathological Diagnosis Left thyroid mid lobe nodule, FNA cytology: - Adequate but slightly limited for assessment - The Dolliver system is category 2: Benign - A [...] [id number] Received: 07/15/23 Status: DENA Sifuentes Num: [id number] Spec Type: Cytology Subm Dr: MARTA PUENTE MD Tissues: A FNA SLIDES NOPATH (LT THYROID NOD) Procedures: Cyto Int and Re, PAPSTN/5 -- Patient: Jessica Griffiths [id number] (Continued) -- Specimen: [id number] Received: 07/15/23 (Continued) Signed (signatu re on file) Alfonso Correa MD 07/16/23 1123 -- Specimen: [id number] Received: 07/15/23 Status: DENA Sifuentes Num: [id number] Spec Type: Cytology Subm Dr: MARTA PUENTE MD Tissues: A FNA SLIDES NOPATH (LT THYROID NOD) Procedures: Cyto Int and Re, PAPSTN/5 -- Patient: Jessica Griffiths [id number] (Continued) -- Specimen: [id number] Received: 07/15/23 (Continued) CPT Codes 94400 -- -- Specimen: [id number] Received: 07/15/23-1303 Status: DENA Bear Num: [id number] Spec Type: Cytology Subm Dr: MARTA PUENTE MD Tissues: A FNA SLIDES NOPATH (LT THYROID NOD) Procedures: Cyto Int and Re, PAPSTN/5 -- Patient: Jessica Griffiths [id number] (Continued) -- Signed (signatu re on file) Alfonso Correa MD 07/16/23 1123 [facility] [place] Thyroid Imaging w/ Uptsyed ortega 07-09-2023 [...] 203.5 Imaging Post Administration (hrs): [address] [facility] CHEMISTRYOrdered By: SYSTEM SYSTEM on 07-08-2023 [...] for Treatmenton 06-23 Consent for Treatment [id number]#1.00TIFF Normal [facility] Lipid Panelon 07-08-2023 Cholesterol [Mass/Vol] 145 mg/dL Normal 120-200 [facility] Comment on above: Performed By: #### 2 216181 ####[facility] [address] [place] [address] Cholesterol in HDL [Mass/Vol] 62 mg/dL Invalid Interpretation Code [facility] Comment on above: Result Comment: '>= 60 LOW RISK' '<= 40 HIGH RISK' Performed By: #### 2 193874 ####[facility] [address] [place] [address] Cholesterol in LDL [Mass/Vol] 76 mg/dL Normal <=129 [facility] Comment on above: Performed By: #### 2 382011 ####[facility] [address] [place] [address] Cholesterol in VLDL [Mass/Vol] 10 mg/dL Normal 7-40 [facility] Comment on above: Performed By: #### 2 250320 ####[facility] [address] [place] [address] Triglyceride [Mass/Vol] 52 mg/dL Normal <=149 [facility] Comment on above: Performed By: #### 2 212231 ####[facility] [address] [place] [address] UA With Cult Reflexon 2023 Bacteria LM Ql (Urine sed) 1+ /HPF Abnormal Trace [facility] Comment on above: Performed By: #### 1 6773307 ####[facility] [address] [place] [address] Bilirubin Ql (U) Negative Normal Negative [facility] Comment on above: Performed By: #### 1 6790325 ####[facility] [address] [place] [address] Clarity (U) CLEAR Normal Clear [facility] Comment on above: Performed By: #### 1 7679856 ####[facility] [address] [place] [address] Color (U) YELLOW Normal Yellow [facility] Comment on above: Performed By: #### 1 6366758 ####[facility] [address] [place] [address] Epithelial cells.squamous LM.HPF (Urine sed) [#/Area] /[HPF] Normal 0-2 [facility] Comment on above: Performed By: #### 1 2440142 ####[facility] [address] [place] [address] Glucose Test strip (U) [Mass/Vol] Negative Normal Negative [facility] Comment on above: Performed By: #### 1 5268050 ####[facility] [address] [place] [address] Hemoglobin Ql (U) Negative Normal Negative [facility] Comment on above: Performed By: #### 1 8049098 ####[address] [place] [address] Ketones (U) [Mass/Vol] TRACE Abnormal Negative [facility] Comment on above: Performed By: #### 1 0302123 ####[address] [address] [place].plasma/Lithiu m.RBC (Bld) [Mass ratio] 0-3 Normal 0-3 [facility] Comment on above: Performed By: #### 1 9019724 ####[facility] [address] [place] [address] Mucus Ql (Urine sed) 2+ Normal Fish [facility] Comment on above: Performed By: #### 1 9865452 ####[address] [address] Nitrite Ql (U) Negative Normal Negative [facility] Comment on above: Performed By: #### 1 3812865 ####[facility] [address] [place] [address] pH (U) 6.5 [pH] Invalid Interpretation Code 5.0-9.0 [facility] Comment on above: Performed By: #### 1 7588759 ####[address] [place] [id number] Protein (U) [Mass/Vol] Negative Normal Negative [facility] Comment on above: Performed By: #### 1 [id number] ####[address] [place] [address] Specific gravity (U) [Rel density] 1.015 Invalid Interpretation Code 1.005-1.030 [facility] Comment on above: Performed By: #### 1 [id number] ####[place] [address] Type of Urine collection method Clean Catch Normal [facility] Comment on above: Performed By: #### 1 [id number] ####[place] [id number] Urobilinogen Qn (U) 0.2 {Dylan'U}/dL Normal 0.0-1.0 [facility] Comment on above: Performed By: #### 1 [id number] ####[place] [address] WBC Auto Ql (U) Negative Normal Negative [facility] Comment on above: Performed By: #### 1 [id number] ####[place] [id number] WBC LM.HPF (Urine sed) [#/Area] 0-5 Normal 0-5 [facility] Comment on above: Performed By: #### 1 [id number] ####[place] [address] URINALYSISOrdered By: Jennifer morris on 07-08-2023 Bacteria [...] Interpretation Code Negative [facility] UA Auto SS [place].plasma/Lithiu m.RBC (Bld) [Mass ratio] 0-3 /HPF Normal [...] [facility] UA Auto SS Urobilinogen Qn (U) 0.5981159 {Dylan'U}/dL Normal 0.0 - 1.0 EU/dL [facility] UA Auto SS WBC Auto Ql (U) Negative (07/08/23 7:42 AM) Normal Negative [facility] UA Auto SS WBC LM.HPF (Urine sed) [#/Area] 0-5 /HPF Normal 0-5/HPF [facility] UA Auto SS Insurance Correspondenceon 0 07-01-2023 Insurance Correspondence [id number]#1.00TIFF Normal [facility] Physician Referralon 024 Physician Referral [id number]#1.00TIFF Normal [facility] Consent for Treatmenton Consent for Treatment [id number]#1.00TIFF Normal [facility] US Thyroidon 06-27-2023 US Thyroid Exam [...] MD Transcribed by: YAMINI Technologist: FAISAL [facility] Family Medicine Office/Clini c Noteon 06-24-2023 [...] with voice recognition artificial intelligence software, specifically SimpliVT, ThinkSmart and or Silversky. Substitutions may have occurred due to the inherent limitations of voice recognition and artificial intelligence software. Documentation services were performed after patient or guardian consented to allow [employer] to record this visit. D (more content not included)... Normal [facility] Comment on above: Result Comment: Elec tronically Signed By: Paul Bass MD\.br\Date and Time Signed: 06/24/23 18:25 EST\.br\Electronically Co-Signed By: Jaja Alex\.br\Date and Time Co-Signed: 06/24/23 18:04 EST T3 Freeon 06-22-2023 Free T3 [Mass/Vol] 4.2 pg/mL Invalid Interpretation Code 2.0-4.4 [facility] Comment on above: Result Comment: Perf ormed at: [facility] [address] [id number] PhD Mahnaz Conklin Performed By: #### 2 118291, 8539644, [id number], [id number] ####[facility] [address] [place] [address] Auto Diffon 06-21-2023 Basophils/100 WBC (Bld) 0.3 % Normal 0.0-2.0 [facility] Comment on above: Order Comment: Order Added by Discern Expert. Performed By: #### 2 106106, 9093465, 8077821, 2846474, 87666885 ####[facility] [address] [place] [address] Basophils/Leukocytes Auto (Bld) [Pure # fraction] 0.0 E9/L Normal 0.0-0.2 [facility] Comment on above: Order Comment: Order Added by Discern Expert. Performed By: #### 2 704634, 5686939, 0856617, 0101385, 29782548 ####[facility] [address] [place] [address] Eosinophils/100 WBC (Bld) 0.6 % Normal 0.0-8.0 [facility] Comment on above: Order Comment: Order Added by Discern Expert. Performed By: #### 2 475652, 1002095, 4394941, 1554695, 99221990 ####[facility] [address] [place] [address] Eosinophils/Leukocyte s Auto (Bld) [Pure # fraction] 0.0 E9/L Normal 0.0-0.5 [facility] Comment on above: Order Comment: Order Added by Discern Expert. Performed By: #### 2 644938, 6866106, 5882703, 8190330, 87451040 ####[place] [address] [place] [address] Lymphocytes/100 WBC (Bld) 20.6 % Normal 14.0-50.0 [facility] Comment on above: Order Comment: Order Added by Discern Expert. Performed By: #### 2 458934, 3524804, 8452151, 7133707, 18282536 ####[place] [address] [place] [address] Lymphocytes/Leukocyte s Auto (Bld) [Pure # fraction] 1.7 E9/L Normal 1.0-4.0 [facility] Comment on above: Order Comment: Order Added by Jay Expert. Performed By: #### 2 297177, 3654191, 4358273, 7978983, 83600256 ####[address] [address] Monocytes/100 WBC (Bld) 6.6 % Normal 4.0-14.0 [facility] Comment on above: Order Comment: Order Added by Jay Expert. Performed By: #### 2 544827, 1195939, 4632013, 1310778, 74857853 ####[place] [address] [place] [address] Monocytes/Leukocytes Auto (Bld) [Pure # fraction] 0.5 E9/L Normal 0.2-1.0 [facility] Comment on above: Order Comment: Order Added by Jay Expert. Performed By: #### 2 026046, 1958070, 9164771, 9039709, 91777040 ####[place] [address] [place] [address] Neutrophils/100 WBC (Bld) 71.9 % Normal 36.0-75.0 [facility] Comment on above: Order Comment: Order Added by Discern Expert. Performed By: #### 2 815329, 5761478, 1781568, 1520339, 71849880 ####[place] [address] [place] [address] Neutrophils/Leukocyte s Auto (Bld) [Pure # fraction] 5.8 E9/L Normal 2.0-7.5 [facility] Comment on above: Order Comment: Order Added by Discern Expert. Performed By: #### 2 946145, 7943300, 6455870, 2320385, 55055400 ####[address] [address] CBC w/ Auto Diffon Erythrocyte distribution width (RBC) [Ratio] 12.6 % Normal 10.9-14.2 [facility] Comment on above: Performed By: #### 2 505099, 7220499, 9934155, 2627216, 07017807 ####[address] [address] Hematocrit (Bld) [Volume fraction] 37.8 % Normal 34.0-46.0 [facility] Comment on above: Performed By: #### 2 451438, 9825208, 2082033, 3671678, 39678491 ####[address] [address] Hemoglobin (Bld) [Mass/Vol] 12.7 g/dL Normal 12.0-16.0 [facility] Comment on above: Performed By: #### 2 177715, 3979617, 8281679, 9970077, 57130681 ####[address] [address] MCH (RBC) [Entitic mass] 32.2 pg Normal 27.0-34.0 [facility] Comment on above: Performed By: #### 2 860423, 5380836, 5177583, 0434596, 74974110 ####[address] [address] MCHC (RBC) [Mass/Vol] 33.8 g/dL Normal 31.4-36.0 [facility] Comment on above: Performed By: #### 2 496085, 7544713, 6040082, 1034919, 75542595 ####[facility] [address] [place] [address] MCV (RBC) [Entitic vol] 95.5 fL Normal 80.0-100.0 [facility] Comment on above: Performed By: #### 2 787653, 2860346, 2068608, 4598280, 14770461 ####[address] [address] Platelet mean volume (Bld) [Entitic vol] 8.5 fL Normal 6.4-10.8 [facility] Comment on above: Performed By: #### 2 940575, 9133050, 2452769, 7455950, 91686949 ####[address] [address] Platelets (Bld) [#/Vol] 303.0 E9/L Normal 150.0-500.0 [facility] Comment on above: Performed By: #### 2 963402, 5925756, 8744193, 2125571, 54704756 ####[address] [address] RBC (Bld) [#/Vol] 4.0 E12/L Low 4.3-5.9 [facility] Comment on above: Performed By: #### 2 625639, 5613475, 4759967, 7266968, 54734086 ####[place] [address] [place] [address] WBC corrected for nucl RBC Auto (Bld) [#/Vol] 8.1 E9/L Normal 4.0-11.0 [facility] Comment on above: Performed By: #### 2 086369, 2172586, 4708648, 6059630, 81119721 ####[address] [address] CHEMISTRYOrdered By: SYSTEM SYSTEM on 06-21-2023 Albumin [...] 06-21-2023 Albumin [Mass/Vol] 3.8 g/dL Normal 3.3-5.0 [facility] Comment on above: Performed By: #### 2 025001, 3735587, 5055035, 2275388, 02675465 ####[facility] [address] [place] [address] Albumin/Globulin [Mass ratio] 1.3 {ratio} Normal 1.1-2.2 [facility] Comment on above: Performed By: #### 2 711700, 5792351, 5402118, 3170157, 49032732 ####[facility] [address] [place] [address] Alk Phos 83 Int._Unit/L Normal 21-98 [facility] Comment on above: Performed By: #### 2 133346, 8590680, 0903036, 2124678, 04695791 ####[facility] [address] [place] [address] ALT 10 Int._Unit/L Normal 6-46 [facility] Comment on above: Performed By: #### 2 278723, 7818669, 8713009, 3691674, 04171545 ####[facility] [address] [place] [address] Anion gap [Moles/Vol] 10 mmol/L Normal 6-16 [facility] Comment on above: Performed By: #### 2 985707, 5414873, 6800004, 4319873, 29176468 ####[facility] [address] [place] [address] AST 15 Int._Unit/L Normal 5-43 [facility] Comment on above: Performed By: #### 2 221533, 7868403, 7642143, 6324951, 28152871 ####[facility] [address] [place] [address] Bili Total 0.5 mg/dL Normal 0.0-1.1 [facility] Comment on above: Performed By: #### 2 230355, 3210664, 3759183, 3573051, 44869626 ####[facility] [address] [place] [address] BUN/Creat Ratio 22 No Units High 10-20 [facility] Comment on above: Performed By: #### 2 068433, 9443451, 3827686, 7044671, 39329918 ####[facility] [address] [place] [address] Calcium [Mass/Vol] 8.7 mg/dL Low 8.9-11.1 [facility] Comment on above: Performed By: #### 2 779249, 7278466, 9709615, 9932717, 93475317 ####[facility] [address] [place] [address] Chloride [Moles/Vol] 103 mmol/L Normal 101-111 [facility] Comment on above: Performed By: #### 2 786701, 1731939, 0074294, 3701680, 45632590 ####[facility] [address] [place] [address] CO2 [Moles/Vol] 29 mmol/L Normal 21-31 [facility] Comment on above: Performed By: #### 2 316284, 5221085, 4157369, 6005006, 75922830 ####[facility] [address] [place] [address] Creatinine [Mass/Vol] 0.6 mg/dL Normal 0.5-1.3 [facility] Comment on above: Performed By: #### 2 116833, 4899464, 0918437, 0000983, 77605200 ####[facility] [address] [place] [address] Globulin (S) [Mass/Vol] 3.0 g/dL Normal 1.4-4.0 [facility] Comment on above: Performed By: #### 2 273912, 4565506, 0972170, 0559734, 31664040 ####[facility] [address] [place] [address] Glucose [Mass/Vol] 84 mg/dL Normal 55-199 [facility] Comment on above: Performed By: #### 2 064859, 7227806, 5431803, 9926886, 83935390 ####[facility] [address] [place] [address] Potassium [Moles/Vol] 3.9 mmol/L Normal 3.5-5.3 [facility] Comment on above: Performed By: #### 2 731963, 3966447, 5509006, 3801893, 53592800 ####[facility] [address] [place] [address] Protein [Mass/Vol] 6.8 g/dL Normal 6.0-7.8 [facility] Comment on above: Performed By: #### 2 269716, 3403024, 9847427, 2579384, 94650098 ####[facility] [address] [place] [address] Sodium [Moles/Vol] 138 mmol/L Normal 135-145 [facility] Comment on above: Performed By: #### 2 910914, 6700781, 7134391, 3930278, 04024771 ####[facility] [address] [place] [address] Urea nitrogen [Mass/Vol] 13 mg/dL Normal 5-21 [facility] Comment on above: Performed By: #### 2 539938, 4364015, 2302400, 2475293, 52518295 ####[facility] [address] [place] [address] Consent for Treatmenton 123 Consent for Treatment [id number]#1.00TIFF Normal [facility] Free T4on 06-21-2023 Free T4 [Mass/Vol] 1.37 ng/dL Normal 0.58-1.64 [facility] Comment on above: Performed By: #### 2 766927, 7832762, 3579670, 3760317, 76726706 ####[facility] [address] [place] [address] HEMATOLOGYOrdered By: SYSTEM SYSTEM on 06-21-2023 Basophils/100 [...] 8.1 E9/L Normal 4.0 - 11.0 E9/L [facility] HemeAutoSS Physician Orderon 06-21-2023 Physician Order [id number]#1.00TIFF Normal [facility] T3 Uptakeon 06-21-2023 T3 Uptake 46.6 % Normal 32.0-48.4 [facility] Comment on above: Performed By: #### 2 544142, 8279228, 85258379, 3717317 ####[facility] [address] [place] [address] T4 Totalon 06-21-2023 T4 18.8 microgram/dL High 4.6-9.1 [facility] Comment on above: Performed By: #### 2 134161, 0936342, 59872372, 0652705 ####[facility] [address] [place] [address] TSHon 06-21-2023 TSH Qn 0.07 m[IU]/L Low 0.34-5.60 [facility] Comment on above: Performed By: #### 2 479530, 5221215, 83533992, 2526196 ####[facility] [address] [place] [address] eGFRon 06-21-2023 GFR/1.73 sq M.predicted among non-blacks MDRD (S/P/Bld) [Vol rate/Area] mL/min/{1.73_m2} Normal >=59 [facility] Comment on above: Order Comment: Order added by Discern Expert. Performed By: #### 2 071804, 1777552, 3348223, 4463670, 91689818 ####[facility] [address] [place] [address] Family Medicine Office/Clini c Noteon 06-20-2023 Family [...] with voice recognition software. Occasional wrong-word or ?ipdnz-v-hdnj? substitutions may have occurred due to the [...] know she has been working with her BID MANAGER in regards to blood test and [...] lost some weight. But again is seeing BID MANAGER in regards to these fluctuations denies [...] with prim (more content not included)... Normal [facility] Comment on above: Result Comment: Elec [...] weeks. Home care treatment may include: ? Rmao-xlg-uljntih pain relievers. ? A warm, moist cloth placed over the ear. Severe cases may require a procedure to insert tubes in the ears (tympanostomy tubes) to drain the fluid. Follow these instructions at home: ? Take okzj-rgt-lhjndkl and prescription medicines only as told by [...] provider. Document Revised: 10/04/2021 Document Reviewed: 10/04/2021 [employer] Patient Education ? 2022 [employer]. Endocrinology Thyroid Nodule A thyroid nodule is [...] hyperthy (more content not included)... Normal [facility] MRI Spine Cervical w/o Contr elvira [...] YAMINI Technologist: CAPRI Technical Comments None Normal [facility] Consent for Treatmenton 05-23 Consent for Treatment [id number]#1.00TIFF Normal [facility] RAD - MRI Screening Formon 1 08-10-2022 RAD - MRI Screening Form [id number]#1.00TIFF Normal [facility] Physician Orderon 06-03-2023 Physician Order [id number]#1.00TIFF Normal [facility] Consent for Treatmenton Consent for Treatment [id number]#1.00TIFF [facility] Physician Orderon 04-28-2023 Physician Order [id number]#1.00TIFF [facility] XR Spine Cervical 4 or [...] Signature): 04/28/2023 4:28 pm Signed by: Cassius Ersnt MD Transcribed by: YAMINI Technologist: DIPTI Technical Comments Radiation Dose: Ka,r in mGy = na DAP = na [facility] EMG Electromyographyon 01-21 EMG Electromyography [id number]#1.00CD:[address] [facility] Consultation Noteon 01-16-20 Consultation Note [id number]#1.00CD:[address] [facility] Auth for Release of Medical Recordson 12-17-2022 Auth for Release of Medical Records [id number]#1.00CD:[address] [facility] CHEMISTRYOrdered By: SYSTEM SYSTEM on 12-03-2021 Free T4 [Mass/Vol] 0.66 ng/dL Normal 0.58 - 1.64 ng/dL [facility] Remisol Glucose post fast [Mass/Vol] 90 mg/dL Normal 55 - 99 mg/dL [facility] Remisol TSH Qn 2.54 m[IU]/L Normal 0.34 - 5.60 mcIU/mL FT Remisol Reference Laboratory Testing Ordered By: [facility] DomainUser on 07-13-2021 SARS-CoV-2 (COVID-19) RNA KEITH+probe Ql (Resp) Not detected Invalid Interpretation Code Not Detected [facility] [employer] Comment on above: Result Comment: This nucleic acid amplification test was developed and its performance characteristics determined by [employer]. Nucleic acid amplification tests include RT-PCR and [...] detected) result in this assay. Performed at: [address] [id number] PhD Mahnaz Conklin Vital Signs Date Time Vital Sign Value Performing Clinician Facility 11-12-2023 12:45-0400 Blood Pressure Location [facility] 11-12-2023 12:45-0400 Diastolic blood pressure 76 mm[Hg] [facility] 11-12-2023 12:45-0400 Heart rate 72 /min [facility] 11-12-2023 12:45-0400 SaO2% (BldA) [Mass fraction] 99 % Paul Gudimella [facility] 11-12-2023 12:45-0400 Systolic blood pressure 116 mm[Hg] Paul Gudimella [facility] 10-07-2023 10:22-0400 Blood Pressure Location Nancy BARRIENTOS [facility] 10-07-2023 10:22-0400 Body temperature 97.88 [degF] Nancy BARRIENTOS [facility] 10-07-2023 10:22-0400 Diastolic blood pressure 76 mm[Hg] Umanger BROWN [facility] 10-07-2023 10:22-0400 Heart rate 66 /min Nancy BARIRENTOS [facility] 10-07-2023 10:22-0400 Respiratory rate 16 /min Nancy BARRIENTOS [facility] 10-07-2023 10:22-0400 SaO2% (BldA) [Mass fraction] 100 % Nancy BARRIENTOS [facility] 10-07-2023 10:22-0400 Systolic blood pressure 116 mm[Hg] Christdeandraer BROWN [facility] 08-04-2023 11:27-0500 Body height 167.6 cm Marta Puente MD Work Phone: [facility] 08-04-2023 11:27-0500 Body mass index (BMI) [Ratio] 21.14 kg/m2 Marta Puente MD Work Phone: [facility] 08-04-2023 11:27-0500 Body weight 59.42 kg Marta Puente MD Work Phone: [facility] 08-04-2023 11:27-0500 Diastolic blood pressure 81 mm[Hg] Marta Puente MD Work Phone: [facility] 08-04-2023 11:27-0500 Systolic blood pressure 111 mm[Hg] Marta Puente MD Work Phone: [facility] 07-24-2023 13:41-0500 Blood Pressure Location Paul Gudimella [facility] 07-24-2023 13:41-0500 Diastolic blood pressure 70 mm[Hg] Paul Gudimella [facility] 07-24-2023 13:41-0500 Heart rate 86 /min Paul Gudimella [facility] 07-24-2023 13:41-0500 SaO2% (BldA) [Mass fraction] 98 % Paul Gudimella [facility] 07-24-2023 13:41-0500 Systolic blood pressure 106 mm[Hg] Paul Gudimella [facility] 07-18-2023 16:16-0500 Blood Pressure Location Christopher BROWN [facility] 07-18-2023 16:16-0500 Diastolic blood pressure 60 mm[Hg] Christopher BROWN [facility] 07-18-2023 16:16-0500 Heart rate 92 /min Christopher BROWN [facility] 07-18-2023 16:16-0500 Respiratory rate 16 /min Christopher BROWN [facility] 07-18-2023 16:16-0500 SaO2% (BldA) [Mass fraction] 98 % Nancy BARRIENTOS [facility] 07-18-2023 16:16-0500 Systolic blood pressure 90 mm[Hg] Nancy BARRIENTOS [facility] 06-24-2023 13:49-0500 Blood Pressure Location Paul Gudimella [facility] 06-24-2023 13:49-0500 Diastolic blood pressure 72 mm[Hg] Paul Gudimella [facility] 06-24-2023 13:49-0500 Heart rate 89 /min Paul Gudimella [facility] 06-24-2023 13:49-0500 SaO2% (BldA) [Mass fraction] 97 % Paul Gudimella [facility] 06-24-2023 13:49-0500 Systolic blood pressure 98 mm[Hg] Paul Gudimella [facility] 06-20-2023 18:43-0500 Blood Pressure Location Filiberto Cramer [facility] 06-20-2023 18:43-0500 Body temperature 98.06 [degF] Filiberto C[facility] 06-20-2023 18:43-0500 Diastolic blood pressure 76 mm[Hg] Filiberto Cramer [facility] 06-20-2023 18:43-0500 Heart rate 96 /min Filiberto Cramer [facility] 06-20-2023 18:43-0500 SaO2% (BldA) [Mass fraction] 98 % Filiberto Cramer [facility] 06-20-2023 18:43-0500 Systolic blood pressure 122 mm[Hg] Filiberto Cramer [facility] 12-28-2021 11:20-0400 Body height 167.64 cm Ric Tinoco Other [employer] Other 12-28-2021 11:20-0400 Body mass index (BMI) [Ratio] 21.14 kg/m2 Ric Tinoco Other [employer] Other 12-28-2021 11:20-0400 Body weight 59.42 kg Ric Tinoco Other [employer] Other 04-17-2021 15:40-0400 Body height 167.64 cm Ric Tinoco Other [employer] Other 04-17-2021 15:40-0400 Body mass index (BMI) [Ratio] 21.14 kg/m2 Richalle Tinoco Other [employer] Other 04-17-2021 15:40-0400 Body weight 59.42 kg Ric Alejandrina Other [employer] Other 05-31-2020 15:50-0500 Body weight 63.96 kg [employer] , [place] 05-31-2020 15:50-0500 BP Diastolic 79 mm[Hg] [facility] [place] 05-31-2020 15:50-0500 BP Systolic 107 mm[Hg] [facility] [place] 05-31-2020 15:50-0500 Pulse (Heart Rate) 67 /min [facility] [place] 05-31-2020 15:50-0500 Pulse Oximetry 100 % [facility] , [place] 05-31-2020 15:50-0500 Respiratory Rate 20 /min Kathy Pereira [facility] [place] Encounters Encounter Date Encounter Type Care Provider Facility Start: 11-12-2023 End: 11-13-2023 ambulatory Paul Camposerikakeysha Facility:[facility] Start: 11-12-2023 End: 11-12-2023 Patient encounter procedure Paul Bass [facility] Start: 10-21-2023 End: 10-22-2023 ambulatory PETRA MORELAND Not Available Start: 10-21-2023 End: 10-21-2023 Patient encounter procedure AMAIRANI Charley [facility] Start: 10-07-2023 End: 10-08-2023 ambulatory Nancy BARRIENTOS Facility:[facility] Start: 10-07-2023 End: 10-07-2023 Patient encounter procedure Nancy BARRIENTOS [facility] Start: 09-10-2023 End: 09-11-2023 ambulatory AMAIRANI Charley SUMI Facility[facility] Start: 09-10-2023 End: 09-10-2023 Patient encounter procedure JOSEFINATAMIKO Charley [facility] Start: 08-04-2023 Bamboo flowsheet Marta Carballo [...] Hyperthyroidism (CMS/HCC) Start: 07-29-2023 ambulatory Umangsanjeev BARRIENTOS [facility] ity:[facility] Start: 07-24-2023 End: 07-25-2023 ambulatory Paul Gudimella Facility:[facility] Start: 07-24-2023 End: 07-24-2023 Patient encounter procedure Paul Gudimella [facility] Start: 07-18-2023 End: 07-19-2023 ambulatory Rosendoeduardo [facility] Facility:[facility] Start: 07-18-2023 End: 07-18-2023 Patient encounter procedure Nancy BARRIENTOS [facility] Start: 07-18-2023 End: 07-19-2023 ambulatory Paul Gudimella Facility:[facility] Start: 07-18-2023 End: 07-18-2023 Patient encounter procedure Paul Gudimella [facility] Start: 07-14-2023 End: 07-14-2023 ambulatory MD Ruben Barrientos Work Phone: [facility] Work Phone: Start: 07-14-2023 End: 07-14-2023 Departed Referred MD Ruben Barrientos Work Phone: [facility] Start: 07-08-2023 End: 10-08-2023 ambulatory Paul Gudimella Facility:[facility] Start: 07-08-2023 End: 10-07-2023 Recurring Paul Gudimella [facility] Start: 07-04-2023 End: 07-04-2023 ambulatory MARTA PUENTE Not Available Start: 06-27-2023 ambulatory Paul Gudimella Facilit y:[facility] Start: 06-27-2023 End: 06-28-2023 ambulatory Paul Gudimella Facility:[facility] Start: 06-27-2023 End: 06-27-2023 Patient encounter procedure Paul Gudimella [facility] Start: 06-24-2023 End: 06-25-2023 ambulatory Paul Gudimella Facility:[facility] Start: 06-24-2023 End: 06-24-2023 Patient encounter procedure Paul Gudimella [facility] Start: 06-21-2023 End: 06-22-2023 ambulatory Filiberto Cramer [facility] Start: 06-21-2023 End: 06-21-2023 Patient encounter procedure Filiberto Cramer [facility] Start: 06-20-2023 End: 06-21-2023 ambulatory Filiberto Cramer Facility:[facility] Start: 06-20-2023 End: 06-20-2023 Patient encounter procedure Filiberto Cramer [facility] Start: 06-09-2023 End: 06-10-2023 ambulatory Narendranath Lakshmipathy Facility[facility] Start: 06-09-2023 End: 06-09-2023 Patient encounter procedure Narendranath Lakshmipathy [facility] Start: 05-07-2023 End: 05-07-2023 ambulatory KRAIG PARK Not Available Start: 04-28-2023 ambulatory Anitra BARRIENTOS Facility: [facility] Start: 04-28-2023 End: 04-29-2023 ambulatory EBER CASTANEDA Facility[facility] Start: 04-28-2023 End: 04-28-2023 Patient encounter procedure EBER CASTANEDA [facility] Start: 11-05-2022 End: 11-06-2022 ambulatory SHARONA WILKINSTRAYMICHELLE . Facility:[facility] Start: 10-22-2022 End: 10-22-[address] DOCTOR ALEJANDRE Facility:[facility] Start: 10-01-2022 End: 10-02-2022 ambulatory ISAURA KELLY . Facility:[facility] Start: 08-27-2022 End: 08-27-2022 ambulatory Ric Tinoco Other [facility] Other Start: 08-27-2022 Telephone encounter Ric Tinoco [facility] Start: 06-11-2022 End: 06-12-[address] HERB RIVERO . Facility:[facility] Start: 05-28-2022 End: 05-28-[address] HERB RIVERO . Facility:[facility] Start: 03-05-2022 End: 03-06-[address] HERB RIVERO . Facility: Start: 12-28-2021 End: 12-28-2021 ambulatory Ric Tinoco Other [employer] Other Start: 12-28-2021 Office outpatient visit 15 minutes Ric Tinoco [facility] Start: 12-03-2021 End: 12-03-2021 Patient encounter procedure Kraig Park [facility] Start: 11-08-2021 End: 11-09-[address] HERB RIVERO . Facility: Start: 07-13-2021 End: 10-11-2021 Patient encounter procedure Nancy BARRIENTOS [facility] Start: 04-17-2021 Office outpatient visit 15 minutes Ric GRIMES [facility] Start: 05-31-2020 End: 05-31-2020 Emergency department patient visit KATHY GHOSH [facility] Start: 05-31-2020 End: 05-31-2020 Emergency department patient visit Kathy Ghosh Work Phone: [facility] ED Comment on above: Chest wall pain (Brunilda michelet Dx) Start: 12-30-2018 End: 01-07-2019 Patient encounter procedure PROVIDER UNKNOWN Facility:[facility] Procedures Date Procedure Procedure Detail Performing Clinician [...] anterior approach Nancy BARRIENTOS Comment on above: [facility] Start: 06-19-2018 Removal of sebaceous cyst Nancy [...] Comment on above: 10/2017 Dr. Barnes @ [facility] lumbar microdisectomy 6 Rex BARRIENTOS Comment on above: 10/2017 Dr. Barnes @ [facility] 6 Nancy BIRCH Comment on above: per Dr. Glez 8 wisdom teeth extracted Ruben BARRIENTOS Plan of Treatment Date Care Activity Detail Author Start: 05-31-2026 Screening for malign ant neoplasm of cervix [facility] Start: 08-04-2023 End: 08-04-2023 Patient encounter procedure 08/04/2023 11:20 AM EST Office Visit [facility] [address] [facility] [address] [place] [address] Mrata Puente MD [address] [facility] [address] [place] [address] Arrived [facility] Comment on above: Arrived Start: 02-21-2023 Influenza vaccination Influenza Vacc ine (#1) [facility] Start: 02-22-2020 Influenza vaccination Flu vaccine (# 1) [place], [place] Start: 2005 Screening for malign ant neoplasm of cervix Pap Smear [facility] EKG 12 Lead EKG 12 Lead ECG STAT 05/31/2020 4:01 PM EST [place], [place] Immunizations Immunization Date Immunization Notes Care Provider Fa cility 10-28-2020 COVID-19, mRNA, LNP-S, PF, 30 mcg/0.3 mL dose; Translations: [Pfizer-BioNTech COVID-19 Vaccine] Nancy BARRIENTOS [facility] Comment on above: Reason for Medicatio n: Prophylaxis 10-07-2020 COVID-19, mRNA, LNP-S, PF, 30 mcg/0.3 mL dose; Translations: [Pfizer-BioNTech COVID-19 Vaccine] Nancy BARRIENTOS [facility] Comment on above: Reason for Medicatio n: Prophylaxis 04-15-2020 influenza, injectable, quadrivalent, contains preservative Nancy BARRIENTOS [facility] 04-15-2020 influenza virus vaccine, unspecified formulation Marta Puente MD Work Phone: [facility] 03-23-2018 influenza virus vaccine, unspecified formulation Nancy BARRIENTOS [facility] 03-10-2013 tetanus toxoid, reduced diphtheria toxoid, and acellular pertussis vaccine, adsorbed Rosendoeduardo BARRIENTOS [facility] Comment on above: Reason for Medicatio n: Other (see comment) 10-13-2007 tetanus toxoid, reduced diphtheria toxoid, and acellular pertussis vaccine, adsorbed Filiberto Cramer [facility] 10-24-1999 hepatitis A and hepatitis B vaccine Filiberto Cramer [facility] 01-25-1998 measles, mumps and rubella virus vaccine Filiberto Cramer [facility] NEGATED: Highlighted row has not occurred!07-18-2023 influenza virus vaccine, unspecified formulation Rosendoeduardo BARRIENTOS [facility] NEGATED: Highlighted row has not occurred!06-20-2023 influenza virus vaccine, unspecified formulation Filiberto Cramer [facility] Payers Date Payer Category Payer Self-pay [id number] 2022 Medicaid [place] [id number] 2022-Present [address] [place] [address] [id number] 2022 Medicaid [id number] 2006 Private Health Insurance [id number] 1984 Unknown [id number] 2.16.840.1.037735.3.579.2.6 47 1984 Unknown [id number] 2.16.840.1.440423.3.579.2.1 74 1984 Unknown [id number] 2.16.840.1.188155.3.579.2.5 93 1984 Unknown [id number] 2.16.840.1.991613.3.579.2.5 93 1984 Unknown [id number] 2.16.840.1.528244.3.579.2.5 93 1984 Unknown [id number] 2.16.840.1.594613.3.579.2.5 93 1984 Unknown [id number] 2.16.840.1.531940.3.579.2.5 93 1984 Unknown [id number] 2.840.1.279616.3.579.2.5 93 1984 Unknown [id number] 2.16.840.1.812377.3.579.2.5 93 1984 Unknown [id number] 2.16.840.1.785490.3.579.2.1 259 1984 Unknown [id number] 2.16.840.1.680853.3.579.2.1 259 1984 Unknown [id number] 2.16.840.1.850876.3.579.2.1 259 1984 Unknown [id number] 2.16.840.1.742808.3.579.2.1 259 1984 Unknown [id number] 2.16.840.1.554158.3.579.2.7 27 1984 Unknown [id number] 2.16.840.1.311234.3.579.2.7 27 1984 Unknown [id number] 2.16.840.1.820890.3.579.2.7 27 1984 Unknown [id number] 2.16.840.1.544260.3.579.2.7 1984 Unknown [id number] 2.16.840.1.232373.3.579.2.7 1984 Unknown [id number] 2.16.840.1.453371.3.579.2.7 1984 Unknown [id number] 2.16.840.1.668519.3.579.2.7 1984 Unknown [id number] 2.16.840.1.129139.3.579.2.7 1984 Unknown [id number] 2.16.840.1.434043.3.579.2.7 1984 Unknown [id number] 2.16.840.1.098277.3.579.2.7 1984 Unknown [id number] 2.16.840.1.087815.3.579.2.7 1984 Unknown [id number] 2.16.840.1.511377.3.579.2.7 1984 Unknown [id number] 2.16.840.1.549592.3.579.2.7 1984 Unknown [id number] 2.16.840.1.732464.3.579.2.7 1984 Unknown [id number] 2.16.840.1.787900.3.579.2.7 1984 Unknown [id number] 2.16.840.1.101614.3.579.2.7 1984 Unknown [id number] 2.16.840.1.581189.3.579.2.7 1959 Private Health Insurance [id number] 1.2.840.815160.1.13.239.2.7 .3.106946.315 Unknown [id number] 2.16.840.1.169130.3.579.2.5 31 Social History Date Type Detail Facility Start: 05-31-2020 End: 11-12-2023 Tobacco smoking status NHIS Never smoker [facility] Start: 05-31-2020 End: 05-06-2023 Tobacco use and exposure Never used [employer] Sex Assigned At Not on file [facility] [employer] Exposure to SARS-CoV -2 (event) Not sure [facility] [employer] Tobacco smoking status Never [facility] Start: 07-03-2023 End: 07-04-2023 Sex Assigned At Female [employer] Other Start: 1985 Sex Assigned At Female [facility] Start: 07-31-2023 End: 08-04-2023 Alcohol [...] Gender identity Identifies as female gender (finding) [facility] Start: 05-06-2023 Sexual orientation Heterosexual (finding) [facility] Medical Equipment Procedure Code Equipment Code Equipment Origin al Text Equipment Identifier Dates Anterior lumbar interbody fusion (ALIF) STRATOFUSE [id number] FDA Start: 12-06-2019 Anterior lumbar interbody fusion (ALIF) Orthopaedic bone screw, non-bioabsorbable, non-sterile +[id number] FDA Start: 12-06-2019 Anterior lumbar interbody fusion (ALIF) Orthopaedic bone screw, non-bioabsorbable, non-sterile +[id number] FDA Start: 12-06-2019 Anterior lumbar interbody fusion (ALIF) Bone-screw internal spinal fixation system, non-sterile +[id number] FDA Start: 12-06-2019 Anterior lumbar interbody fusion (ALIF) Bone-screw internal spinal fixation system, non-sterile +[id number] FDA Start: 12-06-2019 Anterior lumbar interbody fusion (ALIF) Spinal fusion graft kit ()[id number] FDA Start: 12-06-2019 Anterior lumbar interbody fusion (ALIF) Spinal bone screw, non-bioabsorbable ()[id number] FDA Start: 12-06-2019 Anterior lumbar interbody fusion (ALIF) Metallic spinal fusion cage, non-sterile ()[id number] FDA Start: 12-06-2019 Anterior lumbar interbody fusion (ALIF) Bone-screw internal spinal fixation system, non-sterile +[id number] FDA Start: 12-06-2019 Functional Status Date Assessment Result Facility 11-12-2023 Functional Status N/A [facility] 10-07-2023 Functional Status N/A [facility] 07-24-2023 Functional Status N/A [facility] 07-18-2023 Functional Status N/A [facility] 06-24-2023 Functional Status N/A [facility] 06-20-2023 Functional Status N/A [facility] Clinical Notes 04-17-2021 to 10-21-2023 LaboratoryHidenis Puente MD - 08/04/2023 11:20 AM ESTLaboratoryRadiologyLaboratoryLaboratoryLaboratory Note Date & Type Note Facility 10-21-2023 Evaluation + Plan note Diagnostic Tests PendingT3 Free 10/21/23 Future Scheduled TestsLab Miscellaneous-LC 07/24/23 [facility] 10-07-2023 Hospital Discharge instructions Patient Education [...] Treatment for this condition includes: Antibiotic medicine. Oyge-rfv-nijxwih medicines to treat discomfort. Drinking enough water [...] Follow these instructions at home: Medicines Take uilq-glw-moxduwf and prescription medicines only as told by [...] provider. Document Revised: 01/19/2021 Document Reviewed: 01/19/2021 [employer] Patient Education 2022 [employer]. Follow Up Care 10/07/2023 07:28:28 With:Nancy BARRIENTOS MD, FAM Address: When: only if needed [facility] [place] 08-04-2023 History of Present illness Narrative Subjective [...] per Dr Mcghee documented in this encounter [facility] 07-24-2023 Evaluation + Plan note Future Scheduled TestsLab Miscellaneous-LC 07/24/23Echo Transthoracic Complete 07/24/23 [facility] [place] 07-24-2023 Evaluation + Plan note Future Scheduled TestsLab Miscellaneous-LC 07/24/23 [facility] 07-18-2023 Evaluation + Plan note Diagnostic Tests PendingT3 Reverse, Serum 07/18/23Thyroid Perox.tpo Ab 07/18/23TgAb+Thyroglobulin,NIGEL or KELVIN 07/18/23 [facility] 07-18-2023 Hospital Discharge instructions Patient Education [...] surgery. Follow these instructions at home: Take indu-okj-merrxrc and prescription medicines only as told by [...] condition. Where to find more information National [employer] of Diabetes and Digestive and Kidney Diseases: [...] provider. Document Revised: 08/02/2022 Document Reviewed: 08/02/2022 [employer] Patient Education 2022 [employer] Follow Up Care 07/18/2023 07:34:13 With:Nancy BARRIENTOS MD, FAM Address: When: only if needed [facility] 06-21-2023 Evaluation + Plan note Diagnostic Tests PendingT3 Free 06/21/23 Future Scheduled TestsCBC w/ Auto Diff 06/20/23Comprehensive Metabolic Panel 06/20/23Free T4 06/20/23 [facility] 06-20-2023 Hospital Discharge instructions Patient Education [...] few weeks. Home care treatment may include: Naic-etg-igfxkoc pain relievers. A warm, moist cloth placed over the ear. Severe cases may require a procedure to insert tubes in the ears (tympanostomy tubes) to drain the fluid. Follow these instructions at home: Take qpex-ftf-fravzpu and prescription medicines only as told by [...] provider. Document Revised: 10/04/2021 Document Reviewed: 10/04/2021 [employer] Patient Education 2022 [employer] 06/20/2023 19:03:16 Thyroid Nodule Thyroid Nodule [...] in your thyroid nodule or nodules. Take qffh-psa-kgqsbqr and prescription medicines only as told by [...] provider. Document Revised: 04/22/2022 Document Reviewed: 04/22/2022 [employer] Patient Education 2022 [employer]. Follow Up Care 06/20/2023 07:23:01 With:Nancy BARRIENTOS MD, FAM Address: [address] [place], [place] [id number]- When: Unknown [facility] 06-20-2023 Evaluation + Plan note Future Scheduled TestsT4 Total 06/20/23CBC w/ Auto Diff 06/20/23Comprehensive Metabolic Panel 06/20/23T3 Free 06/20/23T3 Uptake 06/20/23Thyroid Stimulating Hormone 06/20/23Free T4 06/20/23 [facility] 10-01-2022 Note CONSULTATION CONSULTATION [...] our patients to inform us about any clqh-rad-ngexrly medications or herbal remedies/nutritional supplements/alternative remedies. 2. [...] options with their primary care provider. [facility] 06-11-2022 Note CONSULTATION CONSULTATION DATE: [...] and concurs. CC: Nancy Barrientos M.D. [facility] 03-05-2022 Note PAIN MANAGEMENT CONS [...] along this region. CC: Dr. Barrientos [facility] 12-28-2021 Evaluation note Encounter Date [...] follow her up on an as-needed basis [employer] Other 06-13-2022 Evaluation + Plan note Diagnostic Tests Pending * Insulin Level Total 12/03/21 * T3 Free 12/03/21 * FSH Level 12/03/21 Future Scheduled Tests Laboratory* COVID-19 ([facility] 07/13/21 [facility]05-19-2022 NoteCONSULTATION CONSULTATION DATE: 11/08/2021 This is [...] does plan on seeing Dr. Damon in [place] for. Activities that aggravate her neck are [...] of care and would like to proceed. [facility] Signed and Approved by: ISAURA KELLY . 11/12/2021 15:05:00[facility]01-21-2022 Evaluation + Plan note Future Scheduled Tests Laboratory* COVID-19 ([facility] 07/13/21 [facility]10-26-2021 Evaluation note* Encounter Date Diagnosis Assessment Notes Treatment Notes Treatment Clinical Notes Mar, Spondylolisthesis at L5-S1 level (ICD-10 - M43.17) I answered a number of questions for the patient. I think a transforaminal injection may be beneficial. I also believe that she could potentially benefit from a dorsal column stimulator. She is seeing a another neurologist at [facility] and I am interested in [...] region with neurogenic claudication (ICD-10 - M48.062) [employer] Other evaluation + Plan note Future Appointments Appointment Date:06/27/2023 07:30:00 AM Scheduled Provider: [facility] Appointment Type:US Thyroid/Neck/Chest (FT) Appointment Date:06/27/2023 08:00:00 AM Scheduled Provider: [facility] Appointment Type:CV EKG () Appointment Date:07/29/2023 12:40:00 PM Scheduled Provider:Nancy BARRIENTOS MD Location:[facility] Appointment Type: Open Future Scheduled Tests Laboratory* UA With Cult Reflex 06/24/23 * CBC w/ Auto Diff 06/20/23 * Comprehensive Metabolic Panel 06/20/23 * Lipid Panel 06/24/23 * Free T4 06/20/23 Radiology* US Thyroid 06/27/23 [facility] [place] Evaluation + Plan note Future Appointments Appointment Date:07/29/2023 12:40:00 PM Scheduled Provider:Nancy BARRIENTOS MD Location:[facility] Appointment Type: Open Future Scheduled Tests Laboratory* UA With Cult Reflex 06/24/23 * CBC w/ Auto Diff 06/20/23 * Comprehensive Metabolic Panel 06/20/23 * Lipid Panel 06/24/23 * Free T4 06/20/23 Radiology* US FNA w/ Guidance, first lesion 06/27/23 * NM Thyroid Imaging w/ Uptk Multiple 06/27/23 [facility] Future Appointments Appointment Date:09/11/2023 08:00:00 AM Scheduled Provider: [facility] Appointment Type:CV Echo () Diagnostic Tests Pending * T3 Free 09/10/23 * Thyrotropin Receptor Antibody, Serum 09/10/23 Future Scheduled Tests Laboratory* Lab Miscellaneous-LC 07/24/23 Radiology* Echo Transthoracic Complete 09/11/23 [facility] [employer] Other evaluation noteNo assessment information available [facility] Work Phone: Evaluation note* Diagnosis Mass of [...] ALIF-Doctor Tinoco Hospitalization History see surgical hx [facility] [employer] Other Hospital course Narrative No data available for this section [facility] No data available for this section [facility] No data available for this section [facility] Summary Purpose Family History No Family History Records Found Relationship Condition Age at Onset Recorded Date/T rody Not Specified Healthy female adult Unknown father Osteoarthritis Unknown Degeneration of intervertebral disc Unkno wn Advance Directives No Advanced Directives Records FoundDocuments on File Type Date Recorded Patient Blood Bank Credit Clerk Expl anation ACP-Advance Directive 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 * Chest Pain: Musculoskeletal (Urdu) documented in this encounter Assessments Diagnosis Chest [...] section and content) DATE CREATED AUTHOR 01/14/2020 [facility] DATE CREATED AUTHOR AUTHOR'S ORGANIZ ATION 06/01/2020 [facility] DATE CREATED AUTHOR AUTHOR'S ORGANIZ ATION 11/06/2022 [facility] DATE CREATED AUTHOR AUTHOR'S ORGANIZ ATION 08/01/2023 [facility] DATE CREATED AUTHOR AUTHOR'S ORGANIZ ATION 10/22/2023 [facility] EPIC DATE CREATED AUTHOR AUTHOR'S ORGANIZ ATION 11/14/2023 [facility] Reason for Visit (unrecogniz ed [...] July 14, 2023 End: July 14, 2023 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 [facility]. provides no warranty or guarantee of the accuracy or completeness of information in this document.
== END 2023-12-03 08:06 | disposition home or self-care (01) ==
LOC: PM 08:06
PROVIDERS: Visit Provider Nurse Practitioner
DX: M25.511 Pain in right shoulder (principal); M47.812 Spondylosis without myelopathy or radiculopathy, cervical region; M62.838 Other muscle spasm
CPT/HCPCS: 73030; G0463

== ENCOUNTER 2023-12-03 08:43 | Outpatient (OUT) | payer MEDICAID, SELFPAY ==
--- NOTE | 2023-12-03 08:54 | XR_ITS ---
The [address] [address] Patient Name: JESSICA GRIFFITHS MRN: [id number] date: 1985 Sex: F Assigned Patient Location: [facility] Current Patient Location: [facility] Accession/Order Number: [id number] Exam Date: 12/03/2023 08:58 Report Date: 12/03/2023 13:06 At the request of: EBER CASTANEDA Procedure: XR shoulder RT min 2V PROCEDURE: XR shoulder RT min 2V COMPARISON: None. HISTORY: Right Shoulder Pain FINDINGS: BONES:No fracture, acute abnormality, or significant arthropathy. SOFT TISSUES:Negative. No visible soft tissue swelling. EFFUSION:None visible. OTHER: Negative. XR/XR shoulder RT min 2V IMPRESSION: No acute radiographic abnormality Electronically authenticated by: GIOVANNA VASQUEZ Date: 12/03/2023 13:06
--- OUTSIDE RECORDS SUMMARY | 2023-12-03 08:58 | XMS_ITS | CCD ---
Author Organization [facility] Care Team Providers Care Sweetbread Trimmer Name Role Phone UNKNOWN, PROVIDER Admitting Unavailable [...] DR HERB Melgar Attending Unavailable MISC, DR MURIRETA Primary Care Unavailable RIVERO ., DR HERB [...] Provider MD Marta Puente Jr Attending Provider UnavaMarta Bhatia Jr Attending Unavailable Marta Puente Jr Admitting Unavailable Ruben Barrientos Primary Care Unavailable Nancy Barrientos MD Primary Care Provider Nancy BARRIENTOS Primary Care Physician [phone] MARTA PUENTE Attending Unavailable GUMYRAMELKEYSHA, PAUL Referring [...] Propensity to adverse reactions (disorder) 9 [facility] Repository (17 sources) Adhesive Tape; Translations: [Tape] Drug allergy Eruption of skin (disorder) [facility] (20 sources) Latex; Translations: [Latex] Drug allergy 5 Rash [facility] [employer] Other (3 sources) adhesive bandages Propensity to adverse reactions rash [facility] [employer] Other (1 source) Adhesive agent Drug allergy (disorder) 6 [facility] Repository (1 source) Adhesive agent Drug allergy (disorder) 2 [facility] Repository (1 source) Adhesive Tape Drug allergy (disorder) 0 [facility] Repository (3 sources) Wound Dressing Adhesive Drug [...] course, # 28 cap(s), Refills(s) 0, Pharmacy: [facility], 168, cm, 07/11/20 8:27:00 [...] Daily, # 90 tab(s), Refills(s) 1, Pharmacy: [facility], 168, cm, 07/11/20 8:27:00 [...] nasal route once daily Flonase 0.05 mg/inh [place] 2 spray(s), Nasal, Daily for 7 day(s), 16 gm, Refill(s) 0, each nostril, [facility], 168, cm, 06/20/23 18:45:00 [...] BID, # 180 tab(s), Refills(s) 1, Pharmacy: [facility], 168, cm, 07/11/20 8:27:00 EST, Height/Length Dosing, 64.1, kg, 07/11/20 8:27:00 EST, Weight Dosing Start Date: 08/22/20 Status: Ordered loratadine 10 mg oral tablet (3 sources) Start: 02-23-2020 take 1 tablet by mouth once daily loratadine 10 mg Tab 10 mg = 1 tab(s), Oral, Daily, # 90 tab(s), Refills(s) 1, Pharmacy: [facility], 168, cm, 02/23/20 10:40:00 EDT, Height/Length Dosing, 65, kg, 02/23/20 10:40:00 EDT, Weight Dosing Start Date: 02/23/20 Status: Ordered Start: 11-30-2019 take 1 capsule by [facility] once daily loratadine (CLARITIN) 10 MG [...] Nausea/Vomiting, # 10 tab(s), Refills(s) 0, Pharmacy: [facility], 168, cm, 07/10/20 13:24:00 [...] symptoms, # 30 tab(s), Refills(s) 0, Pharmacy: [facility], 168, cm, 10/07/23 10:32:00 EDT, Height/Length Dosing, 61, kg, 10/07/23 10:32:00 EDT, Weight Dosing Start Date: 10/07/23 Status: Ordered Start: 05-26-2020 take 1 tablet by jaden th twice daily as needed oxybutynin 5 mg Tab 5 mg = 1 tab(s), Oral, BID, PRN for urinary discomfort, # 60 tab(s), Refills(s) 2, Pharmacy: [facility], 168, cm, 05/26/20 16:32:00 [...] breakfast, # 30 tab(s), Refills(s) 5, Pharmacy: [facility], 168, cm, 07/11/20 8:27:00 [...] Once, # 1 tab(s), Refills(s) 0, Pharmacy: [facility], 168, cm, 07/24/23 13:48:00 EST, Height/Length Dosing, 61, kg, 07/24/23 13:48:00 EST, Weight Dosing Start Date: 07/24/23 Status: Ordered Protonix 40 mg Tab-EC (3 sources) Start: 02-06-2021 take 1 tablet by mouth once daily 30 minutes before breakfast Protonix 40 mg Tab-EC 40 mg = 1 tab(s), Oral, Daily, Take 30 minutes before breakfast, # 30 tab(s), Refills(s) 5, Pharmacy: [facility], 168, cm, 07/11/20 8:27:00 [...] BID, # 60 tab(s), Refills(s) 2, Pharmacy: [facility], 168, cm, 11/08/21 9:50:00 EDT, Height/Length Dosing, 65.4, kg, 11/08/21 9:50:00 EDT, Weight Dosing Start Date: 01/18/22 Status: Ordered Start: 11-23-2020 take 1 tablet by jaden twice daily valacyclovir 1 g Tab 1 gram = 1 tab(s), Oral, BID, # 60 tab(s), Refills(s) 2, Pharmacy: [facility], 168, cm, 07/11/20 8:27:00 EST, Height/Length Dosing, 64.1, kg, 07/11/20 8:27:00 EST, Weight Dosing Start Date: 11/23/20 Status: Ordered Start: 11-23-2020 take 1 tablet by jaden twice daily valacyclovir 1 g Tab 1 gram = 1 tab(s), Oral, BID, # 60 tab(s), Refills(s) 2, Pharmacy: [facility], 168, cm, 07/11/20 8:27:00 EST, Height/Length Dosing, 64.1, kg, 07/11/20 8:27:00 EST, Weight Dosing Start Date: 11/23/20 Status: Ordered Completed/Discontinued Medications Medication Drug Class(es) Dates Sig (Normalized) Sig (Original) acetaminophen 325 mg / HYDROcodone bitartrate 5 mg oral tablet (2 sources) Opioid Agonist Start: 09-12-2017 End: 11-30-2019 take 1 tablet by mouth every four to six hours Hydrocodone-Acetami nophen (Cal[place]) 5-325 mg tablet Discontinued 1 TAB PO EVERY 4-6 HOURS September 12, 2017 November 30, 2019 9:37am Start: 09-04-2017 End: 09-12-2017 take 1 tablet by mouth once daily at bedtime Hydrocodone-Acetaminophen (Cal[place]) 5-325 mg Tablet Discontinued 1 TAB PO [...] Range Facil ity Consenton 11-12-2023 Consent [id number]#1.00TIFF Normal [facility] Consent [id number]#1.00TIFF Normal [facility] Family Medicine Office/Clini c Noteon 11-12-2023 Family [...] with voice recognition artificial intelligence software, specifically [employer]ist, [employer] and or [employer]. Substitutions may have occurred due to the inherent limitations of voice recognition and artificial intelligence software. Documentation services were performed after patient or guardian consented to allow [employer] to record this visit. DEX body specialist Perlita Dominguez and provider reviewed before [...] per year, 06/24/2023 Employment/School Employed, Work/School description: [employer]., 02/01/2019 Home/Environment Lives with Children, Spouse., 02/01/2019 Substance Abuse - Denies Substance Abuse, 12/11/2012 Household substance abuse concerns: No., 06/24/2023 Tobacco - Denies Tobacco Use, 12/11/2012 Never (less than 100 in lifetime) Tobacco Use:. Never Smokeless Tobacco Use:. Household tobacco concerns: No., 11/12/2023 Family History Depression: Mother. Hepatitis C: Sister. Immunizations Vaccine Date Status Comments influenza viru (more content not included)... Normal [facility] Comment on above: Result Comment: Elec tronically Signed By: Paul Bass MD\.br\Date and Time Signed: 11/12/23 14:07 EDT\.br\Electronically Co-Signed By: Tyrone Garciabr\Date and Time Co-Signed: 11/12/23 13:40 EDT T3 Freeon 10-22-2023 Free T3 [Mass/Vol] 2.9 pg/mL Invalid Interpretation Code 2.0-4.4 [facility] Comment on above: Result Comment: Perf ormed at: [facility] [address] [id number] PhD Mahnaz Conklin Performed By: #### 2 673127, 6970571, [id number] ####[facility] [address] [place] [address] CHEMISTRYOrdered By: SYSTEM SYSTEM on 10-21-2023 Free T4 [Mass/Vol] 0.65 ng/dL Normal 0.58 - 1.64 ng/dL Remisol Chem TSH Qn 4.41 m[IU]/L Normal 0.34 - 5.60 mcIU/mL Remisol Chem Consent for Treatmenton 09-23 Consent for Treatment [id number]#1.00TIFF Normal [facility] Free T4on 10-21-2023 Free T4 [Mass/Vol] 0.65 ng/dL Normal 0.58-1.64 [facility] Comment on above: Performed By: #### 2 188283, 4013538, [id number] ####[facility] [address] [place] [address] Physician Orderon 10-21-2023 Physician Order [id number]#1.00TIFF Normal [facility] TSHon 10-21-2023 TSH Qn 4.41 m[IU]/L Normal 0.34-5.60 [facility] Comment on above: Performed By: #### 2 860876, 9558114, [id number] ####[facility] [address] [place] [address] Ambulatory Visit Summaryon 0 10-07-2023 Ambulatory Visit [...] urinary discomfort for bladder symptoms Pickup at [facility] 6076 Unchanged baclofen (baclofen 10 mg Tab) See [...] physician if questions or concerns Pharmacy Information [facility]: [address] [phone] Allergies Latex Tape (Rash) Problems Ongoing - [...] a (more content not included)... Normal [facility] Family Medicine Office/Clini c Noteon 10-07-2023 Family [...] two weeks, she has not utilized any elcw-ewr-qfkehzu or old antibiotics, nor has she utilized [...] week. She is seeing Dr. Mcghee in [place] for her thyroid. She has been trying [...] Urnls Dip Stick Auto w/o Microscopy POC 09005 2. Thyroiditis, subacute (E06.1: Subacute thyroiditis) Continue following with Dr. Mcghee in [place] for management of the methimazole. 3. Lumbar [...] symptoms, # 30 tab(s), Refills(s) 0, Pharmacy: [facility], 168, cm, 10/07/23 10:32:00 EDT, Height/Length Dosing, 61, kg, 10/07/23 10:32:00 EDT, Weight Dosing Portions of this record may have been created with voice recognition artificial intelligence software, specifically [employer], [employer] and or [employer]. Substitutions may have occurred due to the [...] lumba (more content not included)... Normal [facility] Comment on above: Result Comment: Elec tronically [...] this condition includes: ? Antibiotic medicine. ? Fsac-xht-tzdedfr medicines to treat discomfort. ? Drinking enough [...] these instructions at home: Medicines ? Take itdq-gpx-nbovdgx and prescription medicines only as told by [...] Document Revie (more content not included)... Normal [facility] T3 Freeon 09-13-2023 Free T3 [Mass/Vol] 1.5 pg/mL Low 2.0-4.4 [facility] Comment on above: Result Comment: Perf ormed at: [facility] [address] [id number] PhD Mahnaz Conklin Performed By: #### 2 604899, 7420850, 0767885, [id number], 9496410 ####[facility] [address] [place] [address] Thyrotropin Receptor Antibod y, Serumon 09-13-2023 TSH receptor Ab Qn (S) <1.10 Invalid Interpretation Code 0.00-1.75 [facility] Comment on above: Result Comment: Perf ormed at: [facility] [address] [id number] MD Enrico Dean Performed By: #### 2 641425, 0671969, 0484669, [id number], [id number] ####[facility] [address] [place] [address] CHEMISTRYOrdered By: SYSTEM SYSTEM on 09-10-2023 Albumin [...] for Treatmenton 08-22 Consent for Treatment [id number]#1.00TIFF Normal [facility] Free T4on 09-10-2023 Free T4 [Mass/Vol] ng/dL Low 0.58-1.64 [facility] Comment on above: Performed By: #### 2 310989, 1013297, 9971206, [id number], 8152549 ####[facility] [address] [facility] [place] [address] Hep Func Panelon 09-10-2023 Albumin [Mass/Vol] 4.2 g/dL Normal 3.3-5.0 [facility] Comment on above: Performed By: #### 2 488323, 6958580, 7984730, [id number], 7288431 ####[facility] [address] [place] [address] Albumin/Globulin (S) [Mass conc ratio] 1.4 Normal 1.1-2.2 [facility] Comment on above: Performed By: #### 2 808896, 6281286, 2111921, [id number], 3136033 ####[facility] [address] [place] [address] ALP [Catalytic activity/Vol] 66 Int._Unit/L Normal 21-98 [facility] Comment on above: Performed By: #### 2 768626, 8590152, 0979766, [id number], 2621351 ####[facility] [address] [place] [address] ALT No additional P-5'-P [Catalytic activity/Vol] 14 Int._Unit/L Normal 6-46 [facility] Comment on above: Performed By: #### 2 189960, 1054885, 5616411, [id number], 8518872 ####[facility] [address] [place] [address] AST [Catalytic activity/Vol] 22 Int._Unit/L Normal 5-43 [facility] Comment on above: Performed By: #### 2 320623, 4306142, 4881007, [id number], 8110340 ####[facility] [address] [place] [address] Bilirubin [Mass/Vol] 0.5 mg/dL Normal 0.0-1.1 [facility] Comment on above: Performed By: #### 2 612966, 1243628, 5292545, 3985072485, 1568457 ####[facility] [address] [place] [address] Bilirubin.direct [Mass/Vol] 0.1 mg/dL Normal 0.0-0.4 [facility] Comment on above: Performed By: #### 2 821158, 2365594, 0881522, 5469206554, 8247453 ####[facility] [address] [place] [address] Bilirubin.indirect [Mass or moles/Vol] 0.4 mg/dL Normal 0.1-0.9 [facility] Comment on above: Performed By: #### 2 143781, 0762579, 5367078, 4168794852, 9850222 ####[facility] [address] [place] [address] Globulin (S) [Mass/Vol] 3.0 g/dL Normal 1.4-4.0 [facility] Comment on above: Performed By: #### 2 381466, 0977169, 7288624, 3836335152, 1093488 ####[address] [place] [address] Protein [Mass/Vol] 7.2 g/dL Normal 6.0-7.8 [facility] Comment on above: Performed By: #### 2 963144, 7633100, 0781849, 5174017822, 1752495 ####[address] [place] [address] Physician Orderon 09-10-2023 Physician Order [id number]#1.00TIFF Normal [facility] TSHon 09-10-2023 TSH Qn 68.80 m[IU]/L High 0.34-5.60 [facility] Comment on above: Performed By: #### 2 640625, 1769742, 2252214, [id number], 7385924 ####[address] [place] [address] Consultation Noteon 08-12-19 24 Consultation Note [id number] 7858#1.00TIFF Normal [facility] Insurance Correspondenceon 0 08-05-2023 Insurance Correspondence [id number]#1.00TIFF Normal [facility] Consultation Noteon 08-04-19 Consultation Note [id number]#1.00TIFF Normal [facility] .Thyroglobulin by RIAon 07-24 Thyroglobulin [Mass/Vol] 159 ng/mL High [facility] Comment on above: Result Comment: Conf irmed by dilution. This test was developed and its performance characteristics determined by [employer]. It has not been cleared or approved [...] quantitation limit is 2.0 ng/mL. Performed at: [facility] [address] [place] [address] [id number] MD Yadiel Cornell Performed By: #### 2 598978, 2783189, 57274364, 66517519, 617032034, [id number] ####[facility] [address] [place] [address] T3 Reverseon 08-02-2023 T3.reverse [Mass/Vol] 31.2 ng/dL High 9.2-24.1 [facility] Comment on above: Result Comment: This test was developed and its performance characteristics determined by [facility]. It has not been cleared or approved by the Food and Drug Administration. Performed at: [address] [id number] MD Enrico Dean Performed By: #### 2 911231, 0754578, 24150468, 58270137, 785551371, [id number] ####[facility] [address] [place] [address] TgAb+Thyroglobulinon 024 Thyroglobulin Ab Qn 2.7 International_Unit /mL High 0.0-0.9 [facility] Comment on above: Result Comment: Thyr oglobulin Antibody measured by Nakul Leslie Methodology Performed at: [facility] [address] [place], [place] [id number] PhD Mahnaz Conklin Performed By: #### 2 361066, 4818513, 68071197, 66578405, 880049419, [id number] ####[facility] [address] [place] [address] Thyroid Perox.tpo Abon 08-02 TPO Ab Qn [IU]/mL Invalid Interpretation Code 0-34 [facility] Comment on above: Result Comment: Perf ormed at: [facility] [address] [place], [place] [id number] PhD Mahnaz Conklin Performed By: #### 2 507613, 3704102, 23554943, 56361269, [id number], [id number] ####[facility] [address] [place] [address] Family Medicine Office/Clini c Noteon 07-29-2023 Family [...] and imagi (more content not included)... Normal [facility] Comment on above: Result Comment: Elec tronically Signed By: Paul Bass MD\.br\Date and Time Signed: 07/29/23 18:15 EST\.br\Electronically Co-Signed By: Jaja Alex\.br\Date and Time Co-Signed: 07/24/23 18:17 EST Interdisciplinary Note - Soc zenaida Marina 07-28-2023 Interdisciplinary Note - Shiftman This SW made a tc to patient [...] needs arise. SW will remain available. Normal [facility] Ambulatory Visit Summaryon 0 07-24-2023 Ambulatory Visit [...] hormone level, Print Label By Order Location, [id number]\.br\ Echo Transthoracic Complete, 07/24/23, Routine, Order for future visit, Transport Mode: Ambulatory, Reason: Other (please specify), Reason: murmur, Heart murmur, pp_set_radiology_ subspecialty, [facility], [facility]\.br\ Medications\.br\ What How Much When Instructions\.br\ New propranolol (propranolol 10 mg Tab) 1 Tablets By Mouth Once Pickup at [facility]\.br\ Unchanged baclofen (baclofen 10 mg [...] if questions or concerns \.br\ Pharmacy Information\.br\ [facility]: [address] [phone]\.br\ Allergies\.br\ Latex\.br\ Tape (Rash)\.br\ Problems\.br\ Ongoing - [...] for choosing us for your care.\.br\ \.br\ [facility] Ambulatory Visit Summaryon 0 07-18-2023 Ambulatory Visit [...] You smoke (more content not included)... Normal [facility] CHEMISTRYOrdered By: SYSTEM SYSTEM on 07-18-2023 Free T4 [Mass/Vol] 2.22 ng/dL High 0.58 - 1.64 ng/dL Remisol Chem TSH Qn 0.01 m[IU]/L Low 0.34 - 5.60 mcIU/mL Remisol Chem Clipboard Summaryon 07-18-19 24 Clipboard Summary {52-ut-h8-2d-15-1c -30-1r-e9-9a-b9-6d -cb-25-c2-ac}XML Normal [facility] Consent for Treatmenton 06-24 Consent for Treatment [id number]#1.00TIFF Normal [facility] Family Medicine Office/Clini c Noteon 07-18-2023 Family [...] and had a biopsy on Friday at [place], carried out by the radiology department interventional [...] Nonicteric sclera. Oropharynx pink and moist. Adequate [place] dentition. Anterior neck, there is a fullness [...] the pathology report on her phone from [facility] which indicates benign cellularity although admittedly may [...] Dysphagia, unspecified) (more content not included)... Normal [facility] Comment on above: Result Comment: Elec tronically Signed By: JUAN LUIS REES, Nancy\.tarah\Date and Time Signed: 07/18/23 19:02 EST Free T4on 07-18-2023 Free T4 [Mass/Vol] 2.22 ng/dL High 0.58-1.64 [facility] Comment on above: Performed By: #### 2 480169, 6351795, 31208805, 55109109, 626479268, [id number] ####[facility] [address] [place] [address] Patient Educationon 07-18-19 Patient Education Endocrinology Hyperthyroidism [...] Follow these instructions at home: ? Take dfyi-xhk-xddyxrj and prescription medicines only as told by [...] Where to find more information ? National [place] of Diabetes and Digestive and Kidney Diseases: [...] as u (more content not included)... Normal [facility] TSHon 07-18-2023 TSH Qn 0.01 m[IU]/L Low 0.34-5.60 [facility] Comment on above: Performed By: #### 2 949412, 8209553, 18156769, 13120067, 045647940, 545161296 ####[facility] [address] [place] [address] Mata 07-14-2023 L Specimen: Received: 07/15/23 Status: DENA Sifuentes Num: [id number] Spec Type: Cytology Subm Dr: MARTA PUENTE MD Tissues: A FNA SLIDES NOPATH (LT THYROID NOD) Procedures: Cyto Int and Re, PAPSTN/5 Age/ Patient Sex Location Account Attending Physician Jessica Griffiths 37/F [facility] [id number] MARTA PUENTE MD SPEC NUM: [id number] RECD: 07/15/23 STATUS: DENA REQ NUM: [id number] KANCHAN: 07/14/23- SUBM DR: MARTA PUENTE MD ENTERED: 07/15/[address] [facility] [address]: Neno Quiroz SPEC TYPE: Cytology DEPT: ROYER ENGEL ENTERED BY: [id number] RECV BY: [id number] ORDERED: Cyto Int and Re, PAPSTN/5 ORDERED: Cyto Int and Re, PAPSTN/5 Pathological Diagnosis Left thyroid mid lobe nodule, FNA cytology: - Adequate but slightly limited for assessment - The [place] system is category 2: Benign - A [...] [id number] Received: 07/15/23 Status: DENA Sifuentes Num: [id number] Spec Type: Cytology Subm Dr: MARTA PUENTE MD Tissues: A FNA SLIDES NOPATH (LT THYROID NOD) Procedures: Cyto Int and Re, PAPSTN/5 -- Patient: Jessica Griffiths [id number] (Continued) -- Specimen: [id number] Received: 07/15/23 (Continued) Signed (signatu re on file) Alfonso Correa MD 07/16/23 1123 -- Specimen: [id number] Received: 07/15/23 Status: DENA Sifuentes Num: [id number] Spec Type: Cytology Subm Dr: MARTA PUENTE MD Tissues: A FNA SLIDES NOPATH (LT THYROID NOD) Procedures: Cyto Int and Re, PAPSTN/5 -- Patient: Jessica Griffiths [id number] (Continued) -- Specimen: [id number] Received: 07/15/23 (Continued) CPT Codes 47782 -- -- Specimen: [id number] Received: 07/15/23-1303 Status: DENA Bear Num: [id number] Spec Type: Cytology Subm Dr: MARTA PUENTE MD Tissues: A FNA SLIDES NOPATH (LT THYROID NOD) Procedures: Cyto Int and Re, PAPSTN/5 -- Patient: Jessica Griffiths [id number] (Continued) -- Signed (signatu re on file) Alfonso Correa MD 07/16/23 1123 [facility] [place] Thyroid Imaging w/ Uptsyed ortega 07-09-2023 [...] 203.5 Imaging Post Administration (hrs): 24 Normal [facility] CHEMISTRYOrdered By: SYSTEM SYSTEM on 07-08-2023 Cholesterol [...] for Treatmenton 06-23 Consent for Treatment [id number]#1.00TIFF Normal [facility] Lipid Panelon 07-08-2023 Cholesterol [Mass/Vol] 145 mg/dL Normal 120-200 [facility] Comment on above: Performed By: #### 2 441505 ####[facility] [address] [place] [address] Cholesterol in HDL [Mass/Vol] 62 mg/dL Invalid Interpretation Code [facility] Comment on above: Result Comment: '>= 60 LOW RISK' '<= 40 HIGH RISK' Performed By: #### 2 068176 ####[facility] [address] [place] [address] Cholesterol in LDL [Mass/Vol] 76 mg/dL Normal <=129 [facility] Comment on above: Performed By: #### 2 860933 ####[facility] [address] [address] Cholesterol in VLDL [Mass/Vol] 10 mg/dL Normal 7-40 [facility] Comment on above: Performed By: #### 2 251683 ####[facility] [address] [address] Triglyceride [Mass/Vol] 52 mg/dL Normal <=149 [facility] Comment on above: Performed By: #### 2 969826 ####[facility] [address] [place] [address] UA With Cult Reflexon 2023 Bacteria LM Ql (Urine sed) 1+ /HPF Abnormal Trace [facility] Comment on above: Performed By: #### 1 1709129 ####[facility] [address] [address] Bilirubin Ql (U) Negative Normal Negative [facility] Comment on above: Performed By: #### 1 7522140 ####[facility] [address] [address] Clarity (U) CLEAR Normal Clear [facility] Comment on above: Performed By: #### 1 1570986 ####[facility] [address] [address] Color (U) YELLOW Normal Yellow [facility] Comment on above: Performed By: #### 1 [id number] ####[facility] [address] [address] Epithelial cells.squamous LM.HPF (Urine sed) [#/Area] /[HPF] Normal 0-2 [facility] Comment on above: Performed By: #### 1 [id number] ####[facility] [address] [place] [address] Glucose Test strip (U) [Mass/Vol] Negative Normal Negative [facility] Comment on above: Performed By: #### 1 [id number] ####[facility] [address] [place] [address] Hemoglobin Ql (U) Negative Normal Negative [facility] Comment on above: Performed By: #### 1 [id number] ####[address] [place] [address] Ketones (U) [Mass/Vol] TRACE Abnormal Negative [facility] Comment on above: Performed By: #### 1 [id number] ####[address] [address] [place].plasma/Lithiu m.RBC (Bld) [Mass ratio] 0-3 Normal 0-3 [facility] Comment on above: Performed By: #### 1 [id number] ####[facility] [address] [place] [address] Mucus Ql (Urine sed) 2+ Normal [facility] Comment on above: Performed By: #### 1 [id number] ####[address] [address] Nitrite Ql (U) Negative Normal Negative [facility] Comment on above: Performed By: #### 1 [id number] ####[facility] [address] [place] [address] pH (U) 6.5 [pH] Invalid Interpretation Code 5.0-9.0 [facility] Comment on above: Performed By: #### 1 [id number] ####[address] [place] [address] Protein (U) [Mass/Vol] Negative Normal Negative [facility] Comment on above: Performed By: #### 1 [id number] ####[address] [place] [address] Specific gravity (U) [Rel density] 1.015 Invalid Interpretation Code 1.005-1.030 [facility] Comment on above: Performed By: #### 1 [id number] ####[place] [address] Type of Urine collection method Clean Catch Normal [facility] Comment on above: Performed By: #### 1 [id number] ####[address] Urobilinogen Qn (U) 0.2 {Dylan'U}/dL Normal 0.0-1.0 [facility] Comment on above: Performed By: #### 1 4995092 ####[place] [address] WBC Auto Ql (U) Negative Normal Negative [facility] Comment on above: Performed By: #### 1 [id number] ####[address] WBC LM.HPF (Urine sed) [#/Area] 0-5 Normal 0-5 [facility] Comment on above: Performed By: #### 1 [id number] ####[place] [address] URINALYSISOrdered By: Jennifer morris on 07-08-2023 Bacteria [...] Interpretation Code Negative [facility] UA Auto SS [place].plasma/Lithiu m.RBC (Bld) [Mass ratio] 0-3 /HPF [...] [facility] UA Auto SS Urobilinogen Qn (U) 0.5461432 {Dylan'U}/dL Normal 0.0 - 1.0 EU/dL [facility] UA Auto SS WBC Auto Ql (U) Negative (07/08/23 7:42 AM) Normal Negative [facility] UA Auto SS WBC LM.HPF (Urine sed) [#/Area] 0-5 /HPF Normal 0-5/HPF [facility] UA Auto SS Insurance Correspondenceon 0 07-01-2023 Insurance Correspondence [id number]#1.00TIFF Normal [facility] Physician Referralon 024 Physician Referral [id number]#1.00TIFF Normal [facility] Consent for Treatmenton Consent for Treatment [id number]#1.00TIFF Normal [facility] US Thyroidon 06-27-2023 US Thyroid Exam Date/Time: [...] with voice recognition artificial intelligence software, specifically [employer], [employer] and or [employer]. Substitutions may have occurred due to the inherent limitations of voice recognition and artificial intelligence software. Documentation services were performed after patient or guardian consented to allow [employer] to record this visit. D (more content not included)... Normal [facility] Comment on above: Result Comment: Elec tronically Signed By: Paul Bass MD\.br\Date and Time Signed: 06/24/23 18:25 EST\.br\Electronically Co-Signed By: Jaja Alex\.br\Date and Time Co-Signed: 06/24/23 18:04 EST T3 Freeon 06-22-2023 Free T3 [Mass/Vol] 4.2 pg/mL Invalid Interpretation Code 2.0-4.4 [facility] Comment on above: Result Comment: Perf ormed at: [facility] [address] [id number] PhD Mahnaz Conklin Performed By: #### 2 373170, 3772429, [id number], 9800926 ####[facility] [address] [place] [address] Auto Diffon 06-21-2023 Basophils/100 WBC (Bld) 0.3 % Normal 0.0-2.0 [facility] Comment on above: Order Comment: Order Added by Discern Expert. Performed By: #### 2 122576, 0474198, 8918264, 9199475, 50616956 ####[facility] [address] [place] [address] Basophils/Leukocytes Auto (Bld) [Pure # fraction] 0.0 E9/L Normal 0.0-0.2 [facility] Comment on above: Order Comment: Order Added by Discern Expert. Performed By: #### 2 987342, 8091079, 7776618, 0071200, 20238427 ####[facility] [address] [place] [address] Eosinophils/100 WBC (Bld) 0.6 % Normal 0.0-8.0 [facility] Comment on above: Order Comment: Order Added by Discern Expert. Performed By: #### 2 297098, 9085115, 0989741, 2979068, 26087090 ####[facility] [address] [place] [address] Eosinophils/Leukocyte s Auto (Bld) [Pure # fraction] 0.0 E9/L Normal 0.0-0.5 [facility] Comment on above: Order Comment: Order Added by Discern Expert. Performed By: #### 2 149176, 0346658, 9257623, 4102600, 97436376 ####[address] [place] [address] Lymphocytes/100 WBC (Bld) 20.6 % Normal 14.0-50.0 [facility] Comment on above: Order Comment: Order Added by Discern Expert. Performed By: #### 2 354250, 9474815, 2468825, 8578303, 59128463 ####[address] [place] [address] Lymphocytes/Leukocyte s Auto (Bld) [Pure # fraction] 1.7 E9/L Normal 1.0-4.0 [facility] Comment on above: Order Comment: Order Added by Jay Expert. Performed By: #### 2 752294, 1986168, 0319154, 9217880, 98330084 ####[address] [address] Monocytes/100 WBC (Bld) 6.6 % Normal 4.0-14.0 [facility] Comment on above: Order Comment: Order Added by Jay Expert. Performed By: #### 2 177628, 7190554, 5244893, 8213600, 47280793 ####[address] [place] [address] Monocytes/Leukocytes Auto (Bld) [Pure # fraction] 0.5 E9/L Normal 0.2-1.0 [facility] Comment on above: Order Comment: Order Added by Jay Expert. Performed By: #### 2 503864, 4786107, 1580310, 2828095, 55476938 ####[address] [place] [address] Neutrophils/100 WBC (Bld) 71.9 % Normal 36.0-75.0 [facility] Comment on above: Order Comment: Order Added by Discern Expert. Performed By: #### 2 431833, 9269355, 5430072, 4329526, 47963325 ####[address] [place] [address] Neutrophils/Leukocyte s Auto (Bld) [Pure # fraction] 5.8 E9/L Normal 2.0-7.5 [facility] Comment on above: Order Comment: Order Added by Discern Expert. Performed By: #### 2 899538, 3211297, 6018067, 2832327, 15141929 ####[address] [address] CBC w/ Auto Diffon Erythrocyte distribution width (RBC) [Ratio] 12.6 % Normal 10.9-14.2 [facility] Comment on above: Performed By: #### 2 281008, 0636128, 8564576, 2216624, 09986919 ####[address] [address] Hematocrit (Bld) [Volume fraction] 37.8 % Normal 34.0-46.0 [facility] Comment on above: Performed By: #### 2 008874, 6632973, 8382669, 6753120, 73574587 ####[address] [address] Hemoglobin (Bld) [Mass/Vol] 12.7 g/dL Normal 12.0-16.0 [facility] Comment on above: Performed By: #### 2 509432, 9651604, 9453530, 9795193, 09307763 ####[address] [address] MCH (RBC) [Entitic mass] 32.2 pg Normal 27.0-34.0 [facility] Comment on above: Performed By: #### 2 135700, 9679599, 3439213, 4272076, 63980889 ####[address] [address] MCHC (RBC) [Mass/Vol] 33.8 g/dL Normal 31.4-36.0 [facility] Comment on above: Performed By: #### 2 763125, 7651200, 5123286, 8375050, 11994966 ####[facility] [address] [place] [address] MCV (RBC) [Entitic vol] 95.5 fL Normal 80.0-100.0 [facility] Comment on above: Performed By: #### 2 256865, 7705390, 2404925, 3901564, 90007892 ####[address] [address] Platelet mean volume (Bld) [Entitic vol] 8.5 fL Normal 6.4-10.8 [facility] Comment on above: Performed By: #### 2 645597, 9898513, 2338030, 0355606, 96161903 ####[address] [address] Platelets (Bld) [#/Vol] 303.0 E9/L Normal 150.0-500.0 [facility] Comment on above: Performed By: #### 2 302361, 2928754, 4607116, 7527554, 88454873 ####[address] [address] RBC (Bld) [#/Vol] 4.0 E12/L Low 4.3-5.9 [facility] Comment on above: Performed By: #### 2 447038, 3513522, 2521621, 9741216, 76797380 ####[address] [place] [address] WBC corrected for nucl RBC Auto (Bld) [#/Vol] 8.1 E9/L Normal 4.0-11.0 [facility] Comment on above: Performed By: #### 2 759389, 2102761, 1043409, 4369138, 05655346 ####[address] [address] CHEMISTRYOrdered By: SYSTEM SYSTEM on 06-21-2023 Albumin [...] 06-21-2023 Albumin [Mass/Vol] 3.8 g/dL Normal 3.3-5.0 [facility] Comment on above: Performed By: #### 2 988866, 0362447, 6985739, 5783121, 38561640 ####[facility] [address] [place] [address] Albumin/Globulin [Mass ratio] 1.3 {ratio} Normal 1.1-2.2 [facility] Comment on above: Performed By: #### 2 506407, 7354118, 3142019, 0147249, 93213818 ####[facility] [address] [place] [address] Alk Phos 83 Int._Unit/L Normal 21-98 [facility] Comment on above: Performed By: #### 2 841230, 7472202, 8585271, 1046433, 04808747 ####[facility] [address] [place] [address] ALT 10 Int._Unit/L Normal 6-46 [facility] Comment on above: Performed By: #### 2 544333, 3221035, 8881955, 0976041, 16286509 ####[facility] [address] [place] [address] Anion gap [Moles/Vol] 10 mmol/L Normal 6-16 [facility] Comment on above: Performed By: #### 2 863001, 7341035, 1052302, 2433222, 02691161 ####[facility] [address] [place] [address] AST 15 Int._Unit/L Normal 5-43 [facility] Comment on above: Performed By: #### 2 098652, 9042690, 2808244, 2641048, 02838215 ####[facility] [address] [place] [address] Bili Total 0.5 mg/dL Normal 0.0-1.1 [facility] Comment on above: Performed By: #### 2 168275, 4374243, 1827638, 5091303, 35979001 ####[facility] [address] [place] [address] BUN/Creat Ratio 22 No Units High 10-20 [facility] Comment on above: Performed By: #### 2 312677, 1193146, 1075199, 2773861, 18083393 ####[facility] [address] [place] [address] Calcium [Mass/Vol] 8.7 mg/dL Low 8.9-11.1 [facility] Comment on above: Performed By: #### 2 075543, 9825659, 3807592, 6705409, 79321336 ####[facility] [address] [place] [address] Chloride [Moles/Vol] 103 mmol/L Normal 101-111 [facility] Comment on above: Performed By: #### 2 304553, 0702371, 2948152, 7627232, 37006348 ####[facility] [address] [place] [address] CO2 [Moles/Vol] 29 mmol/L Normal 21-31 [facility] Comment on above: Performed By: #### 2 665517, 0503644, 7889228, 8557721, 54414896 ####[facility] [address] [place] [address] Creatinine [Mass/Vol] 0.6 mg/dL Normal 0.5-1.3 [facility] Comment on above: Performed By: #### 2 624564, 4665815, 8866241, 5782467, 46971689 ####[facility] [address] [place] [address] Globulin (S) [Mass/Vol] 3.0 g/dL Normal 1.4-4.0 [facility] Comment on above: Performed By: #### 2 893095, 0078876, 7594770, 8813900, 85831018 ####[facility] [address] [place] [address] Glucose [Mass/Vol] 84 mg/dL Normal 55-199 [facility] Comment on above: Performed By: #### 2 858000, 6919638, 4936173, 9056234, 16637825 ####[facility] [address] [place] [address] Potassium [Moles/Vol] 3.9 mmol/L Normal 3.5-5.3 [facility] Comment on above: Performed By: #### 2 727936, 5908314, 8395020, 2282204, 68500899 ####[facility] [address] [place] [address] Protein [Mass/Vol] 6.8 g/dL Normal 6.0-7.8 [facility] Comment on above: Performed By: #### 2 697835, 5007568, 3727032, 3400795, 87848110 ####[facility] [address] [place] [address] Sodium [Moles/Vol] 138 mmol/L Normal 135-145 [facility] Comment on above: Performed By: #### 2 865746, 7457559, 7221210, 7183556, 74367615 ####[facility] [address] [place] [address] Urea nitrogen [Mass/Vol] 13 mg/dL Normal 5-21 [facility] Comment on above: Performed By: #### 2 744881, 6219462, 2008128, 1587271, 09599913 ####[facility] [address] [place] [address] Consent for Treatmenton 123 Consent for Treatment [id number]#1.00TIFF Normal [facility] Free T4on 06-21-2023 Free T4 [Mass/Vol] 1.37 ng/dL Normal 0.58-1.64 [facility] Comment on above: Performed By: #### 2 411321, 8379305, 2737388, 4370837, 25757906 ####[facility] [address] [place] [address] HEMATOLOGYOrdered By: SYSTEM SYSTEM on 06-21-2023 Basophils/100 [...] 8.1 E9/L Normal 4.0 - 11.0 E9/L [facility] HemeAutoSS Physician Orderon 06-21-2023 Physician Order [id number]#1.00TIFF Normal [facility] T3 Uptakeon 06-21-2023 T3 Uptake 46.6 % Normal 32.0-48.4 [facility] Comment on above: Performed By: #### 2 178693, 1022232, 06383283, 1763694 ####[facility] [address] [place] [address] T4 Totalon 06-21-2023 T4 18.8 microgram/dL High 4.6-9.1 [facility] Comment on above: Performed By: #### 2 889140, 4016326, 15106555, 3324705 ####[facility] [address] [place] [address] TSHon 06-21-2023 TSH Qn 0.07 m[IU]/L Low 0.34-5.60 [facility] Comment on above: Performed By: #### 2 830209, 5727652, 25409907, 7267526 ####[facility] [address] [place] [address] eGFRon 06-21-2023 GFR/1.73 sq M.predicted among non-blacks MDRD (S/P/Bld) [Vol rate/Area] mL/min/{1.73_m2} Normal >=59 [facility] Comment on above: Order Comment: Order added by Discern Expert. Performed By: #### 2 312147, 5566112, 0988036, 5228389, 54752165 ####[facility] [address] [place] [address] Family Medicine Office/Clini c Noteon 06-20-2023 Family [...] with voice recognition software. Occasional wrong-word or ?rtawf-x-iejm? substitutions may have occurred due to the [...] know she has been working with her TEXTILE SCR[employer] SALVAGER in regards to blood test and lab [...] lost some weight. But again is seeing TEXTILE SCRAP SALVAGER in regards to these fluctuations denies any [...] with prim (more content not included)... Normal [facility] Comment on above: Result Comment: Elec tronically [...] weeks. Home care treatment may include: ? Wkeq-ige-zafogju pain relievers. ? A warm, moist cloth placed over the ear. Severe cases may require a procedure to insert tubes in the ears (tympanostomy tubes) to drain the fluid. Follow these instructions at home: ? Take nqwe-emv-plujpag and prescription medicines only as told by [...] provider. Document Revised: 10/04/2021 Document Reviewed: 10/04/2021 [employer] Patient Education ? 2022 ItsOn. Endocrinology Thyroid Nodule A thyroid nodule is [...] YAMINI Technologist: CAPRI Technical Comments None Normal [facility] Consent for Treatmenton 05-23 Consent for Treatment [id number]#1.00TIFF Normal [facility] RAD - MRI Screening Formon 1 08-10-2022 RAD - MRI Screening Form [id number]#1.00TIFF Normal [facility] Physician Orderon 06-03-2023 Physician Order [id number]#1.00TIFF Normal [facility] Consent for Treatmenton Consent for Treatment [id number]#1.00TIFF [facility] Physician Orderon 04-28-2023 Physician Order [id number]#1.00TIFF [facility] XR Spine Cervical 4 or 5 Vie [...] in mGy = na DAP = na [facility] EMG Electromyographyon 01-21 EMG Electromyography [id number]#1.00CD:127 Normal [facility] Consultation Noteon 01-16-20 Consultation Note [id number]#1.00CD:127 Normal [facility] Auth for Release of Medical Recordson 12-17-2022 Auth for Release of Medical Records [id number]#1.00CD:127 Normal [facility] CHEMISTRYOrdered By: SYSTEM SYSTEM on 12-03-2021 Free T4 [Mass/Vol] 0.66 ng/dL Normal 0.58 - 1.64 ng/dL [facility] Remisol Glucose post fast [Mass/Vol] 90 mg/dL Normal 55 - 99 mg/dL [facility] Remisol TSH Qn 2.54 m[IU]/L Normal 0.34 - 5.60 mcIU/mL FT Remisol Reference Laboratory Testing Ordered By: [facility] DomainUser on 07-13-2021 SARS-CoV-2 (COVID-19) RNA KEITH+probe Ql (Resp) Not detected Invalid Interpretation Code Not Detected [facility] SendOutsSS Comment on above: Result Comment: This nucleic acid amplification test was developed and its performance characteristics determined by [employer]. Nucleic acid amplification tests include RT-PCR and [...] detected) result in this assay. Performed at: [address] [id number] PhD Mahnaz Conklin Vital Signs Date Time Vital Sign Value Performing Clinician Facility 11-12-2023 12:45-0400 Blood Pressure Location [facility] 11-12-2023 12:45-0400 Diastolic blood pressure 76 mm[Hg] [facility] 11-12-2023 12:45-0400 Heart rate 72 /min [facility] 11-12-2023 12:45-0400 SaO2% (BldA) [Mass fraction] 99 % Paul Gudimella [facility] 11-12-2023 12:45-0400 Systolic blood pressure 116 mm[Hg] Paul Gudimella [facility] 10-07-2023 10:22-0400 Blood Pressure Location Nancy BARRIENTOS [facility] 10-07-2023 10:22-0400 Body temperature 97.88 [degF] Nancy BARRIENTOS [facility] 10-07-2023 10:22-0400 Diastolic blood pressure 76 mm[Hg] Umanger BROWN [facility] 10-07-2023 10:22-0400 Heart rate 66 /min Nancy BARRIENTOS [facility] 10-07-2023 10:22-0400 Respiratory rate 16 /min Nancy BARRIENTOS [facility] 10-07-2023 10:22-0400 SaO2% (BldA) [Mass fraction] 100 % Nancy BARRIENTOS [facility] 10-07-2023 10:22-0400 Systolic blood pressure 116 mm[Hg] Christdeandraer BROWN [facility] 08-04-2023 11:27-0500 Body height 167.6 cm Marta Puente MD Work Phone: [facility] 08-04-2023 11:27-0500 Body mass index (BMI) [Ratio] 21.14 kg/m2 Marta Puente MD Work Phone: [facility] 08-04-2023 11:27-0500 Body weight 59.42 kg Marta Puente MD Work Phone: [facility] 08-04-2023 11:27-0500 Diastolic blood pressure 81 mm[Hg] Marta Puente MD Work Phone: [facility] 08-04-2023 11:27-0500 Systolic blood pressure 111 mm[Hg] Marta Puente MD Work Phone: [facility] 07-24-2023 13:41-0500 Blood Pressure Location Paul Gudimella [facility] 07-24-2023 13:41-0500 Diastolic blood pressure 70 mm[Hg] Paul Gudimella [facility] 07-24-2023 13:41-0500 Heart rate 86 /min Paul Gudimella [facility] 07-24-2023 13:41-0500 SaO2% (BldA) [Mass fraction] 98 % Paul Gudimella [facility] 07-24-2023 13:41-0500 Systolic blood pressure 106 mm[Hg] Paul Gudimella [facility] 07-18-2023 16:16-0500 Blood Pressure Location Christopher BROWN [facility] 07-18-2023 16:16-0500 Diastolic blood pressure 60 mm[Hg] Christopher BROWN [facility] 07-18-2023 16:16-0500 Heart rate 92 /min Christopher BROWN [facility] 07-18-2023 16:16-0500 Respiratory rate 16 /min Christopher BROWN [facility] 07-18-2023 16:16-0500 SaO2% (BldA) [Mass fraction] 98 % Nancy BARRIENTOS [facility] 07-18-2023 16:16-0500 Systolic blood pressure 90 mm[Hg] Nancy BARRIENTOS [facility] 06-24-2023 13:49-0500 Blood Pressure Location Paul Gudimella [facility] 06-24-2023 13:49-0500 Diastolic blood pressure 72 mm[Hg] Paul Gudimella [facility] 06-24-2023 13:49-0500 Heart rate 89 /min Paul Gudimella [facility] 06-24-2023 13:49-0500 SaO2% (BldA) [Mass fraction] 97 % Paul Gudimella [facility] 06-24-2023 13:49-0500 Systolic blood pressure 98 mm[Hg] Paul Gudimella [facility] 06-20-2023 18:43-0500 Blood Pressure Location Filiberto Cramer [facility] 06-20-2023 18:43-0500 Body temperature 98.06 [degF] Filiberto Cramer [facility] 06-20-2023 18:43-0500 Diastolic blood pressure 76 mm[Hg] Filiberto Cramer [facility] 06-20-2023 18:43-0500 Heart rate 96 /min Filiberto Cramer [facility] 06-20-2023 18:43-0500 SaO2% (BldA) [Mass fraction] 98 % Filiberto Cramer [facility] 06-20-2023 18:43-0500 Systolic blood pressure 122 mm[Hg] Filiberto Cramer [facility] 12-28-2021 11:20-0400 Body height 167.64 cm Ric Tinoco Other [employer] Other 12-28-2021 11:20-0400 Body mass index (BMI) [Ratio] 21.14 kg/m2 Ric Tinoco Other [employer] Other 12-28-2021 11:20-0400 Body weight 59.42 kg Ric Tinoco Other [employer] Other 04-17-2021 15:40-0400 Body height 167.64 cm Ric Tinoco Other [employer] Other 04-17-2021 15:40-0400 Body mass index (BMI) [Ratio] 21.14 kg/m2 Richalle Tinoco Other [employer] Other 04-17-2021 15:40-0400 Body weight 59.42 kg Ric Alejandrina Other [employer] Other 05-31-2020 15:50-0500 Body weight 63.96 kg [employer] [place] [facility] [place] 05-31-2020 15:50-0500 BP Diastolic 79 mm[Hg] [facility] [place] 05-31-2020 15:50-0500 BP Systolic 107 mm[Hg] [facility] [place] 05-31-2020 15:50-0500 Pulse (Heart Rate) 67 /min [facility] [place] 05-31-2020 15:50-0500 Pulse Oximetry 100 % Kathy Ghosh [facility] , [place] 05-31-2020 15:50-0500 Respiratory Rate 20 /min Kathy Pereira [facility] [place] Encounters Encounter Date Encounter Type Care Provider Facility Start: 11-12-2023 End: 11-13-2023 ambulatory Paul Camposerikakeysha Facility:[facility] Start: 11-12-2023 End: 11-12-2023 Patient encounter procedure Paul Bass [facility] Start: 10-21-2023 End: 10-22-2023 ambulatory PETRA MORELAND Not Available Start: 10-21-2023 End: 10-21-2023 Patient encounter procedure AMAIRANI Charley SUMI [facility] Start: 10-07-2023 End: 10-08-2023 ambulatory Nancy BARRIENTOS Facility:[facility] Start: 10-07-2023 End: 10-07-2023 Patient encounter procedure Nancy BARRIENTOS [facility] Start: 09-10-2023 End: 09-11-2023 ambulatory AMAIRANI Charley SUMI Facility:[facility] Start: 09-10-2023 End: 09-10-2023 Patient encounter procedure JOSEFINATAMIKO Charley SUMI [facility] Start: 08-04-2023 Bamboo flowsheet Marta Carballo [...] Hyperthyroidism (CMS/HCC) Start: 07-29-2023 ambulatory Umangsanjeev BARRIENTOS [facility] ity:[facility] Start: 07-24-2023 End: 07-25-2023 ambulatory Paul Gudimella Facility:[facility] Start: 07-24-2023 End: 07-24-2023 Patient encounter procedure Paul Gudimella [facility] Start: 07-18-2023 End: 07-19-2023 ambulatory Rosendoeduardo [facility] Facility:[facility] Start: 07-18-2023 End: 07-18-2023 Patient encounter procedure Nancy BARRIENTOS [facility] Start: 07-18-2023 End: 07-19-2023 ambulatory Paul Gudimella Facility:[facility] Start: 07-18-2023 End: 07-18-2023 Patient encounter procedure Paul Gudimella [facility] Start: 07-14-2023 End: 07-14-2023 ambulatory MD Ruben Barrientos Work Phone: [facility] Work Phone: Start: 07-14-2023 End: 07-14-2023 Departed Referred MD Ruben Barrientos Work Phone: [facility] Start: 07-08-2023 End: 10-08-2023 ambulatory Paul Gudimella Facility:[facility] Start: 07-08-2023 End: 10-07-2023 Recurring Paul Gudimella [facility] Start: 07-04-2023 End: 07-04-2023 ambulatory MARTA PUENTE Not Available Start: 06-27-2023 ambulatory Paul Gudimella Facilit y:[facility] Start: 06-27-2023 End: 06-28-2023 ambulatory Paul Gudimella Facility:[facility] Start: 06-27-2023 End: 06-27-2023 Patient encounter procedure Paul Gudimella [facility] Start: 06-24-2023 End: 06-25-2023 ambulatory Paul Gudimella Facility:[facility] Start: 06-24-2023 End: 06-24-2023 Patient encounter procedure Paul Gudimella [facility] Start: 06-21-2023 End: 06-22-2023 ambulatory Filiberto Cramer Facility:[facility] Start: 06-21-2023 End: 06-21-2023 Patient encounter procedure Filiberto Cramer [facility] Start: 06-20-2023 End: 06-21-2023 ambulatory Filiberto Cramer Facility:[facility] Start: 06-20-2023 End: 06-20-2023 Patient encounter procedure Filiberto Cramer [facility] Start: 06-09-2023 End: 06-10-2023 ambulatory Narendranath Lakshmipathy Facility:[facility] Start: 06-09-2023 End: 06-09-2023 Patient encounter procedure Narendranath Lakshmipathy [facility] Start: 05-07-2023 End: 05-07-2023 ambulatory KRAIG PARK Not Available Start: 04-28-2023 ambulatory Anitra BARRIENTOS Facility: [facility] Start: 04-28-2023 End: 04-29-2023 ambulatory EBER CASTANEDA Facility:[facility] Start: 04-28-2023 End: 04-28-2023 Patient encounter procedure EBER CASTANEDA [facility] Start: 11-05-2022 End: 11-06-2022 ambulatory SHARONA WILKINSTRAYMICHELLE . Facility:[facility] Start: 10-22-2022 End: 10-22-[address] DOCTOR ALEJANDRE Facility:[facility] Start: 10-01-2022 End: 10-02-2022 ambulatory ISAURA KELLY . Facility:[facility] Start: 08-27-2022 End: 08-27-2022 ambulatory Ric Tinoco Other [place] [employer] Other Start: 08-27-2022 Telephone encounter Ric Tinoco [facility] Start: 06-11-2022 End: 06-12-[address] HERB RIVERO . Facility:[facility] Start: 05-28-2022 End: 05-28-[address] HERB RIVERO . Facility:[facility] Start: 03-05-2022 End: 03-06-[address] HERB RIVERO . Facility: Start: 12-28-2021 End: 12-28-2021 ambulatory Ric Tinoco Other [employer] Other Start: 12-28-2021 Office outpatient visit 15 minutes Ric Tinoco [facility] Start: 12-03-2021 End: 12-03-2021 Patient encounter procedure [place] [facility] Start: 11-08-2021 End: 11-09-[address] HERB RIVERO . Facility: Start: 07-13-2021 End: 10-11-2021 Patient encounter procedure Nancy BARRIENTOS [facility] Start: 04-17-2021 Office outpatient visit 15 minutes Ric GRIMES [facility] Start: 05-31-2020 End: 05-31-2020 Emergency department patient visit KATHY GHOSH [facility] Start: 05-31-2020 End: 05-31-2020 Emergency department patient visit Kathy Ghosh Work Phone: [facility] ED Comment on above: Chest wall pain (Brunilda michelet Dx) Start: 12-30-2018 End: 01-07-2019 Patient encounter procedure PROVIDER UNKNOWN Facility:[facility] Procedures Date Procedure Procedure Detail [...] anterior approach Nancy BARRIENTOS Comment on above: [facility] Start: 06-19-2018 Removal of sebaceous cyst Nancy BARRIENTOS Comment on above: Right inner thigh Start: 06-23-2006 Augmentation mammoplasty Nancy BARRIENTOS H/O: hysterectomy S/P laparoscop ic hysterectomy MD Ruben Barrientos Work Phone: laparoscopy 4 [facility] Comment on above: 2014 Dr. Redd- endo metriosis laparoscopy 5 Christopher [facility] Comment on above: 2014 Dr. Chantel narvaez metriosis lumbar microdisectomy 5 Rex BARRIENTOS Comment on above: 10/2017 Dr. Barnes @ [facility] lumbar microdisectomy 6 Rex BARRIENTOS Comment on above: 10/2017 Dr. Barnes @ [facility] 6 Nancy BIRCH Comment on above: per Dr. Glez 8 wisdom teeth extracted Ruben BARRIENTOS Plan of Treatment Date Care Activity Detail Author Start: 05-31-2026 Screening for malign ant neoplasm of cervix [facility] Start: 08-04-2023 End: 08-04-2023 Patient encounter procedure 08/04/2023 11:20 AM EST Office Visit [facility] [address] [facility] [address] [place] [address] Marta Puente MD [address] [facility] [address] [place] [address] Arrived [facility] Comment on above: Arrived Start: 02-21-2023 Influenza vaccination Influenza Vacc ine (#1) [facility] Start: 02-22-2020 Influenza vaccination Flu vaccine (# 1) [place], [place] Start: 2005 Screening for malign ant neoplasm of cervix Pap Smear [facility] EKG 12 Lead EKG 12 Lead ECG STAT 05/31/2020 4:01 PM EST [place], [place] Immunizations Immunization Date Immunization Notes Care Provider Fa cility 10-28-2020 COVID-19, mRNA, LNP-S, PF, 30 mcg/0.3 mL dose; Translations: [Pfizer-BioNTech COVID-19 Vaccine] Nancy BARRIENTOS [facility] Comment on above: Reason for Medicatio n: Prophylaxis 10-07-2020 COVID-19, mRNA, LNP-S, PF, 30 mcg/0.3 mL dose; Translations: [Pfizer-BioNTech COVID-19 Vaccine] Nancy BARRIENTOS [facility] Comment on above: Reason for Medicatio n: Prophylaxis 04-15-2020 influenza, injectable, quadrivalent, contains preservative Nancy BARRIENTOS [facility] 04-15-2020 influenza virus vaccine, unspecified formulation Marta Puente MD Work Phone: [facility] 03-23-2018 influenza virus vaccine, unspecified formulation Nancy BARRIENTOS [facility] 03-10-2013 tetanus toxoid, reduced diphtheria toxoid, and acellular pertussis vaccine, adsorbed Rosendoeduardo BARRIENTOS [facility] Comment on above: Reason for Medicatio n: Other (see comment) 10-13-2007 tetanus toxoid, reduced diphtheria toxoid, and acellular pertussis vaccine, adsorbed Filiberto Cramer [facility] 10-24-1999 hepatitis A and hepatitis B vaccine Filiberto Cramer [facility] 01-25-1998 measles, mumps and rubella virus vaccine Filiberto Cramer [facility] NEGATED: Highlighted row has not occurred!07-18-2023 influenza virus vaccine, unspecified formulation Rosendoeduardo BARRIENTOS [facility] NEGATED: Highlighted row has not occurred!06-20-2023 influenza virus vaccine, unspecified formulation Filiberto Cramer [facility] Payers Date Payer Category Payer Self-pay [id number] 2022 Medicaid [place] [id number] 2022-Present [address] [place] [address] [id number] 2022 Medicaid [id number] 2006 Private Health Insurance [id number] 1984 Unknown [id number] 2.16.840.1.483077.3.579.2.6 47 1984 Unknown [id number] 2.16.840.1.568614.3.579.2.1 74 1984 Unknown [id number] 2.16.840.1.869459.3.579.2.5 93 1984 Unknown [id number] 2.16.840.1.275733.3.579.2.5 93 1984 Unknown [id number] 2.16.840.1.496416.3.579.2.5 93 1984 Unknown [id number] 2.16.840.1.920404.3.579.2.5 93 1984 Unknown [id number] 2.16.840.1.181277.3.579.2.5 93 1984 Unknown [id number] 2.840.1.693943.3.579.2.5 93 1984 Unknown [id number] 2.16.840.1.875693.3.579.2.5 93 1984 Unknown [id number] 2.16.840.1.929803.3.579.2.1 259 1984 Unknown [id number] 2.16.840.1.545975.3.579.2.1 259 1984 Unknown [id number] 2.16.840.1.250950.3.579.2.1 259 1984 Unknown [id number] 2.16.840.1.420482.3.579.2.1 259 1984 Unknown [id number] 2.16.840.1.917618.3.579.2.7 27 1984 Unknown [id number] 2.16.840.1.728731.3.579.2.7 27 1984 Unknown [id number] 2.16.840.1.188589.3.579.2.7 27 1984 Unknown [id number] 2.16.840.1.488703.3.579.2.7 1984 Unknown [id number] 2.16.840.1.536363.3.579.2.7 1984 Unknown [id number] 2.16.840.1.753380.3.579.2.7 1984 Unknown [id number] 2.16.840.1.825227.3.579.2.7 1984 Unknown [id number] 2.16.840.1.047301.3.579.2.7 1984 Unknown [id number] 2.16.840.1.167346.3.579.2.7 1984 Unknown [id number] 2.16.840.1.427776.3.579.2.7 1984 Unknown [id number] 2.16.840.1.103732.3.579.2.7 1984 Unknown [id number] 2.16.840.1.786246.3.579.2.7 1984 Unknown [id number] 2.16.840.1.980059.3.579.2.7 1984 Unknown [id number] 2.16.840.1.286180.3.579.2.7 1984 Unknown [id number] 2.16.840.1.901465.3.579.2.7 1984 Unknown [id number] 2.16.840.1.730317.3.579.2.7 1984 Unknown [id number] 2.16.840.1.573329.3.579.2.7 1959 Private Health Insurance [id number] 1.2.840.136831.1.13.239.2.7 .3.656512.315 Unknown [id number] 2.16.840.1.951021.3.579.2.5 31 Social History Date Type Detail Facility Start: 05-31-2020 End: 11-12-2023 Tobacco smoking status NHIS Never smoker [employer] Start: 05-31-2020 End: 05-06-2023 Tobacco use and exposure Never used [employer], [facility] Sex Assigned At [facility] on file [facility] Exposure to SARS-CoV -2 (event) Not sure [facility] Tobacco smoking status Never [facility] Start: 07-03-2023 End: 07-04-2023 Sex Assigned At Female [employer] Other Start: 1985 Sex Assigned At Female [facility] Start: 07-31-2023 End: 08-04-2023 Alcohol intake Ex-drinker [...] Gender identity Identifies as female gender (finding) [facility] Start: 05-06-2023 Sexual orientation Heterosexual (finding) [facility] Medical Equipment Procedure Code Equipment Code Equipment Origin al Text Equipment Identifier Dates Anterior lumbar interbody fusion (ALIF) STRATOFUSE [id number] FDA Start: 12-06-2019 Anterior lumbar interbody fusion (ALIF) Orthopaedic bone screw, non-bioabsorbable, non-sterile +[id number] FDA Start: 12-06-2019 Anterior lumbar interbody fusion (ALIF) Orthopaedic bone screw, non-bioabsorbable, non-sterile +[id number] FDA Start: 12-06-2019 Anterior lumbar interbody fusion (ALIF) Bone-screw internal spinal fixation system, non-sterile +[id number] FDA Start: 12-06-2019 Anterior lumbar interbody fusion (ALIF) Bone-screw internal spinal fixation system, non-sterile +[id number] FDA Start: 12-06-2019 Anterior lumbar interbody fusion (ALIF) Spinal fusion graft kit ()[id number] FDA Start: 12-06-2019 Anterior lumbar interbody fusion (ALIF) Spinal bone screw, non-bioabsorbable ()[id number] FDA Start: 12-06-2019 Anterior lumbar interbody fusion (ALIF) Metallic spinal fusion cage, non-sterile ()[id number] FDA Start: 12-06-2019 Anterior lumbar interbody fusion (ALIF) Bone-screw internal spinal fixation system, non-sterile +[id number] FDA Start: 12-06-2019 Functional Status Date Assessment Result Facility 11-12-2023 Functional Status N/A [facility] 10-07-2023 Functional Status N/A [facility] 07-24-2023 Functional Status N/A [facility] 07-18-2023 Functional Status N/A [facility] 06-24-2023 Functional Status N/A [facility] 06-20-2023 Functional Status N/A [facility] Clinical Notes 04-17-2021 to 10-21-2023 LaboratoryHiednis Puente MD - 08/04/2023 11:20 AM ESTLaboratoryRadiologyLaboratoryLaboratoryLaboratory Note Date & Type Note Facility 10-21-2023 Evaluation + Plan note Diagnostic Tests PendingT3 Free 10/21/23 Future Scheduled TestsLab Miscellaneous-LC 07/24/23 [facility] 10-07-2023 Hospital Discharge instructions Patient Education [...] Treatment for this condition includes: Antibiotic medicine. Hjny-xhy-orxobls medicines to treat discomfort. Drinking enough water [...] Follow these instructions at home: Medicines Take bxys-ofn-mfivmlt and prescription medicines only as told by [...] provider. Document Revised: 01/19/2021 Document Reviewed: 01/19/2021 [employer] Patient Education 2022 [employer]. Follow Up Care 10/07/2023 07:28:28 With:Nancy BARRIENTOS MD, FAM Address: When: only if needed [facility] [place] 08-04-2023 History of Present illness Narrative Subjective [...] per Dr Mcghee documented in this encounter [facility] 07-24-2023 Evaluation + Plan note Future Scheduled TestsLab Miscellaneous-LC 07/24/23Echo Transthoracic Complete 07/24/23 [facility] [place] 07-24-2023 Evaluation + Plan note Future Scheduled TestsLab Miscellaneous-LC 07/24/23 [facility] 07-18-2023 Evaluation + Plan note Diagnostic Tests PendingT3 Reverse, Serum 07/18/23Thyroid Perox.tpo Ab 07/18/23TgAb+Thyroglobulin,NIGEL or KELVIN 07/18/23 [facility] 07-18-2023 Hospital Discharge instructions Patient [...] surgery. Follow these instructions at home: Take urgf-ydg-vyfowcr and prescription medicines only as told by [...] condition. Where to find more information [employer] [place] of Diabetes and Digestive and Kidney Diseases: [...] provider. Document Revised: 08/02/2022 Document Reviewed: 08/02/2022 [employer] Patient Education 2022 [employer] Follow Up Care 07/18/2023 07:34:13 With:Nancy BARRIENTOS MD, FAM Address: When: only if needed [facility] [place] 06-21-2023 Evaluation + Plan note Diagnostic Tests PendingT3 Free 06/21/23 Future Scheduled TestsCBC w/ Auto Diff 06/20/23Comprehensive Metabolic Panel 06/20/23Free T4 06/20/23 [facility] 06-20-2023 Hospital Discharge instructions Patient [...] few weeks. Home care treatment may include: Xxsv-glp-talvctt pain relievers. A warm, moist cloth placed over the ear. Severe cases may require a procedure to insert tubes in the ears (tympanostomy tubes) to drain the fluid. Follow these instructions at home: Take iuhl-pie-wukshaa and prescription medicines only as told by [...] provider. Document Revised: 10/04/2021 Document Reviewed: 10/04/2021 [employer] Patient Education 2022 [employer] 06/20/2023 19:03:16 Thyroid Nodule Thyroid Nodule [...] in your thyroid nodule or nodules. Take anwm-wyv-ahhieyv and prescription medicines only as told by [...] provider. Document Revised: 04/22/2022 Document Reviewed: 04/22/2022 [employer] Patient Education 2022 [employer]. Follow Up Care 06/20/2023 07:23:01 With:Nancy BARRIENTOS MD, FAM Address: [address] [place], [place] [address]- When: Unknown [facility] 06-20-2023 Evaluation + Plan note Future Scheduled TestsT4 Total 06/20/23CBC w/ Auto Diff 06/20/23Comprehensive Metabolic Panel 06/20/23T3 Free 06/20/23T3 Uptake 06/20/23Thyroid Stimulating Hormone 06/20/23Free T4 06/20/23 [facility] 10-01-2022 Note CONSULTATION CONSULTATION [...] our patients to inform us about any cina-fgn-yqxubtb medications or herbal remedies/nutritional supplements/alternative remedies. 2. [...] options with their primary care provider. [facility] 06-11-2022 Note CONSULTATION CONSULTATION DATE: 06/11/2022 CHIEF [...] and concurs. CC: Nancy Barrientos M.D. [facility] 03-05-2022 Note PAIN MANAGEMENT CONS ULTATION CONSULTATION [...] along this region. CC: Dr. Barrientos [facility] 12-28-2021 Evaluation note Encounter Date Diagnosis Assessment [...] follow her up on an as-needed basis [employer] Other 06-13-2022 Evaluation + Plan note Diagnostic Tests Pending * Insulin Level Total 12/03/21 * T3 Free 12/03/21 * FSH Level 12/03/21 Future Scheduled Tests Laboratory* COVID-19 ([facility]) 07/13/21 [facility]05-19-2022 NoteCONSULTATION CONSULTATION DATE: 11/08/2021 This [...] does plan on seeing Dr. Damon in [place] for. Activities that aggravate her neck are [...] of care and would like to proceed. [facility] Signed and Approved by: ISAURA KELLY . 11/12/2021 15:05:00[facility]01-21-2022 Evaluation + Plan note Future Scheduled Tests Laboratory* COVID-19 ([facility]) 07/13/21 [facility]10-26-2021 Evaluation note* Encounter Date Diagnosis Assessment Notes Treatment Notes Treatment Clinical Notes Mar, Spondylolisthesis at L5-S1 level (ICD-10 - M43.17) I answered a number of questions for the patient. I think a transforaminal injection may be beneficial. I also believe that she could potentially benefit from a dorsal column stimulator. She is seeing a another neurologist at [facility] and I am interested in [...] region with neurogenic claudication (ICD-10 - M48.062) [employer] Other evaluation + Plan note Future Appointments Appointment Date:06/27/2023 07:30:00 AM Scheduled Provider: [facility] Appointment Type:US Thyroid/Neck/Chest (FT) Appointment Date:06/27/2023 08:00:00 AM Scheduled Provider: [facility] Appointment Type:CV EKG () Appointment Date:07/29/2023 12:40:00 PM Scheduled Provider:Nancy BARRIENTOS MD Location:[facility] Appointment Type: Open Future Scheduled Tests Laboratory* UA With Cult Reflex 06/24/23 * CBC w/ Auto Diff 06/20/23 * Comprehensive Metabolic Panel 06/20/23 * Lipid Panel 06/24/23 * Free T4 06/20/23 Radiology* US Thyroid 06/27/23 [facility] [place] Evaluation + Plan note Future Appointments Appointment Date:07/29/2023 12:40:00 PM Scheduled Provider:Nancy BARRIENTOS MD Location:[facility] Appointment Type: Open Future Scheduled Tests Laboratory* UA With Cult Reflex 06/24/23 * CBC w/ Auto Diff 06/20/23 * Comprehensive Metabolic Panel 06/20/23 * Lipid Panel 06/24/23 * Free T4 06/20/23 Radiology* US FNA w/ Guidance, first lesion 06/27/23 * NM Thyroid Imaging w/ Uptk Multiple 06/27/23 [facility] Future Appointments Appointment Date:09/11/2023 08:00:00 AM Scheduled Provider: [facility] Appointment Type:CV Echo () Diagnostic Tests Pending * T3 Free 09/10/23 * Thyrotropin Receptor Antibody, Serum 09/10/23 Future Scheduled Tests Laboratory* Lab Miscellaneous-LC 07/24/23 Radiology* Echo Transthoracic Complete 09/11/23 [facility] noteNo InformationNortEn[facility] [employer] Other evaluation noteNo assessment information available [facility] Work Phone: Evaluation note* Diagnosis Mass [...] ALIF-Doctor Tinoco Hospitalization History see surgical hx [facility] [employer] Other Hospital course Narrative No data available for this section [facility] No data available for this section [facility] No data available for this section [facility] Summary Purpose Family History No Family History Records Found Relationship Condition Age at Onset Recorded Date/T rody Not Specified Healthy female adult Unknown father Osteoarthritis Unknown Degeneration of intervertebral disc Unkno wn Advance Directives No Advanced Directives Records FoundDocuments on File Type Date Recorded Patient Certified Family Mediator Expl anation ACP-Advance Directive ACP-Power of Beautician Apprentice Advance 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 * Chest Pain: Musculoskeletal (French) documented in this encounter Assessments Diagnosis Chest wall pain Painful respiration Reason for Referral Reason Evaluate and Treat C onsider for Dorsal Column Stimulator Diagnosis 1 Spondylolisthesis at L5-S1 level (M43.17) Referral Organization [facility] Ne urosurgery Referring Provider First Name Ric Referring Provider Last Name Alejandrina Referring Provider Specialty Neurologica l Surgery Referred Organization Unknown Facility Referred Provider Mansoor Summers Referred Provider Specialty Pain Medicin e Referral Priority Routine Additional Source Comments INFORMATION SOURCE (unrecogn ized section and content) DATE CREATED AUTHOR 01/14/2020 [facility] DATE CREATED AUTHOR AUTHOR'S ORGANIZ ATION 06/01/2020 [facility] DATE CREATED AUTHOR AUTHOR'S ORGANIZ ATION 11/06/2022 [facility] DATE CREATED AUTHOR AUTHOR'S ORGANIZ ATION 08/01/2023 [facility] DATE CREATED AUTHOR AUTHOR'S ORGANIZ ATION 10/22/2023 [facility] EPIC DATE CREATED AUTHOR AUTHOR'S ORGANIZ ATION 11/14/2023 [facility] Reason for Visit (unrecogniz ed section [...] July 14, 2023 End: July 14, 2023 [employer] Relationship Specialty Start Date End Date Nancy Barrientos MD [address] [place] [address] PCP - General 05/07/23 [employer] Relationship Specialty Start Date End Date Nancy Barrientos MD [address] [place] [id number] PCP - General 05/07/23 Goals (unrecognized section [...] BE BASED ON THE PRIMARY CLINICAL RECORDS. [facility]. provides no warranty or guarantee of the accuracy or completeness of information in this document.
== END 2023-12-03 08:44 | disposition home or self-care (01) ==
LOC: RAD 08:46
PROVIDERS: Visit Provider Nurse Practitioner
DX: M25.511 Pain in right shoulder (principal)
CPT/HCPCS: 73030

== ENCOUNTER 2024-01-14 14:12 | Outpatient (OUT) | payer MEDICAID, SELFPAY ==
--- NOTE | 2024-01-14 14:52 | PM.CN ---
Consult Note: HPI Data of Consult Patient: known to practice within the last 3 years Requesting Physician: Randi Potts NP Primary Care Provider: Non-Staff Physician, MD Consult Narrative Reason for consult: back pain Narrative: Emily Valiente a pleasant 38 year old female presents for evaluation and management of chronic low back pain and lumbar radiculopathy, hx of lumbar fusion. Patient reporting pain 7/10 increasing to 10/10 with standing walking bending twisting car rides. improved with heat and lying down. Patient has failed PT/HEP greater than 6 weeks. mild relief from baclofen, tizanidine, tramadol, gabapentin. VANI 64% today. Increase in pelvic pressure, denies loss of bowel/bladder. Pain radiating into bilateral thighs, right leg pain radiating in right foot. cc:: CC: Randi Potts NP Review of Systems ROS Status of ROS 10 or more systems reviewed and unremarkable except as noted in history and below Musculoskeletal Reports: back pain PFSH PFSH Medical History Migraines ?G43.909 - Migraine, unspecified, not intractable, without status migrainosus (ICD-10) Chronic pharyngitis ?J31.2 - Chronic pharyngitis (ICD-10) Endometriosis determined by laparoscopy ?N80.9 - Endometriosis, unspecified (ICD-10) Hyperthyroidism ?E05.90 - Thyrotoxicosis, unspecified without thyrotoxic crisis or storm (ICD-10) Neck pain ?M54.2 - Cervicalgia (ICD-10) Low back pain ?M54.50 - Low back pain, unspecified (ICD-10) Numbness and tingling ?R20.0 - Anesthesia of skin (ICD-10) ?R20.2 - Paresthesia of skin (ICD-10) Surgical History S/P fine needle aspiration ?Z98.890 - Other specified postprocedural states (ICD-10) History of lumbar fusion ?Z98.1 - Arthrodesis status (ICD-10) H/O breast implant ?Z98.82 - Breast implant status (ICD-10) Hx of breast implants, bilateral ?Z98.82 - Breast implant status (ICD-10) Status post lumbar surgery ?Z98.890 - Other specified postprocedural states (ICD-10) H/O: hysterectomy ?Z90.710 - Acquired absence of both cervix and uterus (ICD-10) S/P T&A (status post tonsillectomy and adenoidectomy) ?Z90.89 - Acquired absence of other organs (ICD-10) Hx of laparoscopy ?Z98.890 - Other specified postprocedural states (ICD-10) H/O breast augmentation ?Z98.82 - Breast implant status (ICD-10) Meds Home Medications and Allergies Home Medications ?Medication ?Instructions ?Recorded ?Confirmed ?Type baclofen 10 mg tablet 10 mg PO BID 12/04/22 11/25/23 History erenumab-aooe 70 mg/mL 140 mg subcut .MONTH 12/04/22 11/25/23 History subcutaneous auto-injector (Aimovig Autoinjector) oxcarbazepine 300 mg tablet 300 mg PO .HS 12/04/22 11/25/23 History tizanidine 4 mg tablet 4 mg PO . 12/04/22 11/25/23 History gabapentin 600 mg tablet 600 mg PO BEDTIME #30 tabs 04/17/23 11/25/23 Rx biotin 1 tab PO DAILY 07/11/23 11/25/23 History collagen liquid 0.5 drp PO DAILY 07/11/23 11/25/23 History estradiol 2 mg tablet 2 mg PO DAILY 07/11/23 11/25/23 History gabapentin 100 mg capsule 150 mg PO .every morning 07/11/23 11/25/23 History oxcarbazepine 150 mg tablet 150 mg PO DAILY 07/11/23 11/25/23 History tramadol 50 mg tablet 50 mg PO TID PRN pain #90 tabs 10/27/23 11/25/23 Rx tramadol 50 mg tablet 50 mg PO TID PRN pain #90 tabs 12/08/23 Rx tramadol 50 mg tablet 50 mg PO TID PRN pain #90 tabs 01/14/24 Rx Allergies Allergy/AdvReac Type Severity Reaction Status Date / Time adhesive Allergy Rash Verified 11/25/23 08:20 latex Allergy Rash Verified 11/25/23 08:24 Exam Constitutional Documenting provider has reviewed patient's vital signs: yes Common normals: no apparent distress, oriented x3, healthy appearing, alert and well nourished General appearance: cooperative HENMT Common normals: normocephalic, hearing grossly normal bilaterally and moist oral mucous membranes Head and scalp: normocephalic Eye Common normals: PERRL Pupil: PERRL Neck & C-Spine Common normals: full ROM General: normal visual inspection Chest Common normals: inspection of chest normal Respiratory Common normals: normal respiratory effort, no retractions and no use of accessory muscles Back & Pelvis Lumbar spine/lower back: ROM limited, pain with ROM and straight leg raise positive right Sacroiliac joints: SI joints normal Other: decreased sensation following right L3,4,5,S1 pattern strength in RLE 4/5, 5/5 in LLE Extremity Common normals: normal to inspection and full ROM Neuro Common normals: oriented x3, CN's II-XII intact bilaterally, moves all extremities, no focal motor deficits, no sensory deficits noted and deep tendon reflexes 2+ bilaterally Sensorium/orientation: alert Gait (neuro): antalgic Motor exam: no movement abnormalities noted and strength abnormal Psych Common normals: mental status grossly normal, thought process normal, cooperative, affect normal, speech normal and activity/motor behavior normal Speech: normal speech Thought process: normal thought process Results Additional Findings Additional findings: If on a controlled substance or opioids, I have checked an [place] report on this patient and there are no aberrancies noted in the prescribing history.??If on a controlled substance or opioid a drug screen was completed and reviewed within the last year, and if there has not been a drug screen completed we ordered one today to monitor higher risk, state monitored pain medication use. As part of providing excellent, safe, comprehensive care, the following was completed at our patient's visit: 1. A medication reconciliation and review to ensure accurate knowledge of current/active medications, including asking our patients to inform us about any [id number] medications or herbal remedies/nutritional supplements/alternative remedies. 2. A review to specifically ensure our patients have had annual screening for screening for depression, screening for tobacco use, and screening for unhealthy alcohol use. For concerning screenings had a discussion with the patient, provided patient education, and recommended follow-up with primary care provider when appropriate. If patient noted with a risk of falling, they received education on strength, gait, and balance training to prevent future risk of falling. Assessment and Plan Assessment and Plan (1) Lumbar radiculopathy: (2) Failed back syndrome: (3) Chronic prescription opiate use: Assessment and Plan: I feel these medications are improving the patient's quality of life and allow them to tolerate activities of daily living as well as participate in recreational activity.? The patient does not report intolerable side effects. The patient is NOT opioid naive and non-pharmacologic and non-opioid treatment has failed to significantly relieve the patient's pain and improve functionality. The patient has a diagnosis that is related to a somatic or visceral pain etiology. ? ?? I reviewed with the patient the potential risks and side effects with the use of? opioid medications including but not limited to respiratory depression,? sedation, and even . I verified the patient has access to naloxone should? these effects occur. I advised the patient to avoid the use of any other? sedation substances including alcohol, THC, and benzodiazepines while? taking opioid medications due to the risk of compounding side effects and? detrimental outcomes. I reviewed the [employer], pain treatment agreement, urine? drug screen, and opioid start talking forms. The patient was advised to let? their family know they had Naloxone in case they would need to administer? the medication.? ?? A drug screen was completed within the last year, and no aberrancies were noted regarding their use of controlled substances. The patient understands they are subject to the terms and conditions of the pain contract that they have signed. ? ?? I have checked an [place] report on this patient today and there are no aberrancies noted in the prescribing history.? (4) Muscle spasm: Plan medrol dose pack for severe acute on chronic low back pain update lumbar xray with flexion and extension update lumbar MRI without contrast to evaluate lumbar radiculopathy and chronic low back pain unresponsive to above listed therapies in consideration of interventional therapy vs NS referral increase gabapentin 300mg AM 300mg afternoon 600mg HS continue other medications as tolerated f/u to review imaging
== END 2024-01-14 14:13 | disposition home or self-care (01) ==
PROVIDERS: Visit Provider Nurse Practitioner
DX: M54.16 Radiculopathy, lumbar region (principal); M96.1 Postlaminectomy syndrome, not elsewhere classified; Z79.891 Long term (current) use of opiate analgesic; M62.838 Other muscle spasm
CPT/HCPCS: G0463

== ENCOUNTER 2024-02-10 07:46 | Day surgery (SDC) | payer MEDICAID, SELFPAY ==
--- OUTSIDE RECORDS SUMMARY | 2024-02-10 07:51 | XMS_ITS | CCD ---
Author Organization [facility] Care Team Providers Care Key Operator Name Role Phone UNKNOWN, PROVIDER Admitting Unavailable UNKNOWN, PROVIDER Attending Unavailable UNKNOWN, PHYSICIAN Referring Unavailable UNKNOWN, PHYSICIAN Primary Care Unavailable Nancy Barrientos Primary Care Provider [phone] KATHY GHOSH Attending Unavailable NANCY BARRIENTOS Primary [...] ., NARENDRANATH Admitting Fide vailable LAKSHMIPATHY ., NARSIERRA Attending Fide vailable HALKER .LOYD Consulting Unavailable KELLY ., ISAURA Consulting Unavailable RIVERO ., DR HERB Melgar Attending Unavailable MISC, DR MURRIETA Primary Care Unavailable RIVERO ., DR HERB Melgar Admitting Unavailable LAKSHMIPATHY ., SHARONA Consulting Fide vailable MISC, DR MURRIETA Primary Care Unavailable LAKSHMIPATHY ., NARENDRANATH Admitting Fide vailable LAKSHMIPATHY ., NARENDRANATH Attending Fide vailable LAKSHMIPATHY ., SHARONA Consulting [...] DR HERB Melgar Attending Unavailable MISC, DR DOCTOR Primary Care Unavailable JOSEFA ., DR HERB Melgar Consulting Unavailable JOSEFA ., DR HERB Melgar Admitting Unavailable ROBIN .ISAURA Consulting Unavailable MD Ruben Barrientos Primary Care Provider [phone] MD Marta Puente Jr Attending Provider Marta Duncan Jr Attending Unavailable Marta Puente Jr H Admitting Unavailable Ruben Barrientos Primary Care Unavailable Nancy Barrientos MD Primary Care Provider Nancy BARRIENTOS Primary Care Physician MARTA PUENTE Attending Unavailable PAUL CROOK Referring Unavailable KRAIG PARK Attending Unavailable MARTA PUENTE Attending Unavailable NANCY BARRIENTOS Referring Unavailable PETRA MORELAND Attending Unavailable MD Kali Paul Attending Unavailable MD Kali Paul Attending Unavailable Nancy BARRIENTOS Attending Unavailable Nancy BARRIENTOS Attending Unavailable Nancy BARRIENTOS Attending Unavailable Anitra BARRIENTOS Attending Unavailable EBER CASTANEDA Admitting Unavailable EBER CASTANEDA Attending Unavailable MD Kali Paul Attending Unavailable MD Kali Paul Admitting Unavailable SUMI, AHMAD F Attending Unavailable SUMI AHMAD F Admitting Unavailable SUMI AHMAD F Attending Unavailable SUMI, AHMAD F Admitting Unavailable Filiberto Cramer Admitting Unavailable Filiberto Cramer Attending Unavailable Lakshmipathy, Narendranath Admitting Unava ilable Lakshmipathy, Narendranath Attending Unava ilable Lakshmipathy, Narendranath Referring Unava ilable MD Kali Paul Admitting Unavailable MD Kali Paul Attending Unavailable MD Kali Paul Referring Unavailable Marta Puente Admitting Unavailable Marta Puente Attending Unavailable Marta Puente H Referring Unavailable MD Kali Paul Attending Unavailable MD Kali Paul Referring Unavailable MD Kali Paul Admitting Unavailable Filiberto Cramer Attending Unavailable MD Kali Paul Attending Unavailable MD Kali Paul Attending Unavailable Allergies Allergy Classification Reported Allergen(s) Allergy Type Date of Onset Reaction(s) Facility (1 source) Adhesive agent; Translations: [Unknown] Propensity to adverse reactions (disorder) 9 [facility] (18 sources) Adhesive Tape; Translations: [Tape] Drug allergy Eruption of skin (disorder) [place] (20 sources) Latex; Translations: [Latex] Drug allergy 5 Rash [facility] Other (3 sources) adhesive bandages Propensity to adverse reactions rash [facility] Other (1 source) Adhesive agent Drug allergy (disorder) 6 [facility]ository (1 source) Adhesive agent Drug allergy (disorder) 2 [facility] Repository (1 source) Adhesive Tape Drug allergy (disorder) 0 [facility] Repository (3 sources) Wound Dressing Adhesive [...] Status: Ordered baclofen 10 mg oral tablet (19 sources) gamma-Aminobutyr ic Acid-ergic Agonist Start: 03-23-2023 [...] course, # 28 cap(s), Refills(s) 0, Pharmacy: [facility], 168, cm, 07/11/20 8:27:00 [...] Daily, # 90 tab(s), Refills(s) 1, Pharmacy: [facility], 168, cm, 07/11/20 8:27:00 [...] nasal route once daily Flonase 0.05 mg/inh [place] 2 spray(s), Nasal, Daily for 7 day(s), 16 gm, Refill(s) 0, each nostril, [facility], 168, cm, 06/20/23 18:45:00 [...] BID, # 180 tab(s), Refills(s) 1, Pharmacy: [facility], 168, cm, 07/11/20 8:27:00 EST, Height/Length Dosing, 64.1, kg, 07/11/20 8:27:00 EST, Weight Dosing Start Date: 08/22/20 Status: Ordered loratadine 10 mg oral tablet (3 sources) Start: 02-23-2020 take 1 tablet by mouth once daily loratadine 10 mg Tab 10 mg = 1 tab(s), Oral, Daily, # 90 tab(s), Refills(s) 1, Pharmacy: [facility], 168, cm, 02/23/20 10:40:00 EDT, Height/Length Dosing, 65, kg, 02/23/20 10:40:00 EDT, Weight Dosing Start Date: 02/23/20 Status: Ordered Start: 11-30-2019 take 1 capsule by [facility] once daily loratadine (CLARITIN) 10 [...] Nausea/Vomiting, # 10 tab(s), Refills(s) 0, Pharmacy: [facility], 168, cm, 07/10/20 13:24:00 [...] Active oxybutynin chloride 5 mg oral tablet (16 sources) Cholinergic Muscarinic Antagonist Start: 10-07-2023 take 1 tablet by mouth three times daily as needed oxybutynin 5 mg Tab 5 mg = 1 tab(s), Oral, TID, PRN for urinary discomfort, for bladder symptoms, # 30 tab(s), Refills(s) 0, Pharmacy: [facility], 168, cm, 10/07/23 10:32:00 EDT, Height/Length Dosing, 61, kg, 10/07/23 10:32:00 EDT, Weight Dosing Start Date: 10/07/23 Status: Ordered Start: 05-26-2020 take 1 tablet by jaden th twice daily as needed oxybutynin 5 mg Tab 5 mg = 1 tab(s), Oral, BID, PRN for urinary discomfort, # 60 tab(s), Refills(s) 2, Pharmacy: [facility], 168, cm, 05/26/20 16:32:00 EST, Height/Length Dosing, 64, kg, 05/26/20 16:32:00 EST, Weight Dosing Start Date: 05/26/20 Status: Ordered take 1 tablet by jaden every twenty-four hours in the morning oxybutynin [...] breakfast, # 30 tab(s), Refills(s) 5, Pharmacy: [facility], 168, cm, 07/11/20 8:27:00 [...] Once, # 1 tab(s), Refills(s) 0, Pharmacy: [facility], 168, cm, 07/24/23 13:48:00 EST, Height/Length Dosing, 61, kg, 07/24/23 13:48:00 EST, Weight Dosing Start Date: 07/24/23 Status: Ordered Protonix 40 mg Tab-EC (3 sources) Start: 02-06-2021 take 1 tablet by mouth once daily 30 minutes before breakfast Protonix 40 mg Tab-EC 40 mg = 1 tab(s), Oral, Daily, Take 30 minutes before breakfast, # 30 tab(s), Refills(s) 5, Pharmacy: [facility], 168, cm, 07/11/20 8:27:00 EST, Height/Length Dosing, 64.1, kg, 07/11/20 8:27:00 EST, Weight Dosing Start Date: 02/06/21 Status: Ordered rimegepant 75 mg disintegrating oral tablet (6 sources) Start: 10-07-2023 take 1 tablet by [...] Status: Ordered tiZANidine 4 mg oral tablet (19 sources) Central alpha-2 Adrenergic Agonist Start: 03-24-2023 [...] Ordered traMADol hydrochloride 50 mg oral tablet (17 sources) Opioid Agonist Start: 03-26-2023 take 1 [...] BID, # 60 tab(s), Refills(s) 2, Pharmacy: [facility], 168, cm, 11/08/21 9:50:00 EDT, Height/Length Dosing, 65.4, kg, 11/08/21 9:50:00 EDT, Weight Dosing Start Date: 01/18/22 Status: Ordered Start: 11-23-2020 take 1 tablet by jaden th twice daily valacyclovir 1 g Tab 1 gram = 1 tab(s), Oral, BID, # 60 tab(s), Refills(s) 2, Pharmacy: [facility], 168, cm, 07/11/20 8:27:00 EST, Height/Length Dosing, 64.1, kg, 07/11/20 8:27:00 EST, Weight Dosing Start Date: 11/23/20 Status: Ordered Start: 11-23-2020 take 1 tablet by jaden th twice daily valacyclovir 1 g Tab 1 gram = 1 tab(s), Oral, BID, # 60 tab(s), Refills(s) 2, Pharmacy: [facility], 168, cm, 07/11/20 8:27:00 EST, Height/Length Dosing, 64.1, kg, 07/11/20 8:27:00 EST, Weight Dosing Start Date: 11/23/20 Status: Ordered Completed/Discontinued Medications Medication Drug Class(es) Dates Sig (Normalized) Sig (Original) acetaminophen 325 mg / HYDROcodone bitartrate 5 mg oral tablet (2 sources) Opioid Agonist Start: 09-12-2017 End: 11-30-2019 take 1 tablet by mouth every four to six hours Hydrocodone-Acetami nophen ([place]) 5-325 mg tablet Discontinued 1 TAB PO EVERY 4-6 HOURS September 12, 2017 November 30, 2019 9:37am Start: 09-04-2017 End: 09-12-2017 take 1 tablet by mouth once daily at bedtime Hydrocodone-Acetaminophen ([place]) 5-325 mg Tablet Discontinued 1 TAB PO [...] Estrogen Start: 09-04-2017 End: 09-12-2017 Norethindrone-E.Est radiol-Iron (07/12 ()) 1 mg-20 mcg (21)/75 mg (7) [...] Date Documented Da te Episodic/Chronic Cardiac dysrhythmias (8 sources) Palpitations; Translations: [Palpitations] Onset: 4 Episodic Esophageal disorders (20 sources) Gastroesophageal reflux disease; Translations: [Gastroesophageal reflux disease without esophagitis] Onset: 4 02-01-2019 Chronic Headache; including migraine (20 sources) Migraine; Translations: [Migraine variants] 03-31-2020 Chronic Heart valve disorders (8 sources) Heart murmur; Translations: [Cardiac murmur, unspecified] Onset: 4 Episodic Intestinal infection (17 sources) Bacterial overgrowth syndrome 08-07-2020 Episodic Miscellaneous mental health disorders (17 sources) Chronic insomnia 08-17-2019 Chronic Nausea and vomiting (2 sources) Nausea 07-10-2020 Episodic Nonmalignant breast conditions (3 sources) Fibrocystic disease of breast; Translations: [Diffuse cystic mastopathy of right breast] Chronic Nonspecific chest pain (18 sources) Chest wall pain; Translations: [Atypical chest pain] 07-06-2019 Episodic Other acquired deformities (3 sources) Spondylolisthesis L5/S1 level; Translations: [Spondylolisthesis, lumbosacral region] Episodic Other acquired deformities (4 sources) Lumbar spondylolisthesis; Translations: [Spondylolisthesis, lumbar region] 06-04-2023 Episodic Other diseases of bladder and urethra (18 sources) Detrusor overactivity; Translations: [Overactive bladder] Onset: 4 07-10-2020 Chronic Other female genital disorders (3 sources) Dyspareunia due to non-psychogenic cause in the female; Translations: [Other specified dyspareunia] Chronic Other gastrointestinal disorders (2 sources) Abdominal bloating 07-11-2020 Episodic Other gastrointestinal disorders (20 sources) Alteration in bowel elimination 06-27-2020 Episodic Other gastrointestinal disorders (17 sources) Chronic constipation with overflow 08-07-2020 Episodic Other gastrointestinal disorders (2 sources) Diarrhea 07-10-2020 Episodic Other gastrointestinal disorders (17 sources) Fecal soiling co-occurrent and due to fecal incontinence 06-27-2020 Episodic Other gastrointestinal disorders (2 sources) Incontinence of feces 07-11-2020 Episodic Other gastrointestinal disorders (1 source) Dysphagia; Translations: [Dysphagia, unspecified] Onset: 4 Episodic Other gastrointestinal disorders (9 sources) Swallowing painful 07-18-2023 Episodic Other nervous system disorders (3 sources) Chronic pain; Translations: [Other chronic pain] Chronic Other nervous system disorders (4 sources) Other specified mononeuropathies of right lower limb; Translations: [OTH SPEC MONONEUROPATH RT LOW LIMB] Onset: 3 Chronic Other nervous system disorders (5 sources) Other chronic pain; Translations: [OTHER CHRONIC PAIN] Onset: 2 Chronic Other nervous system disorders (17 sources) Sensory disorder of smell and/or taste 03-31-2020 Episodic Other nutritional; endocrine; and metabolic disorders (17 sources) 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 Other screening for suspected conditions (not mental disorders or infectious disease) (17 sources) Thyroid function tests abnormal; Translations: [Abnormal results of thyroid function studies] Onset: 3 Episodic Other skin disorders (7 sources) Foot callus 11-08-2021 Episodic Other skin disorders (5 sources) Mass of neck; Translations: [Localized swelling, mass and lump, neck] Onset: 4 07-04-2023 Episodic Other skin disorders (3 sources) Eruption; Translations: [Rash and other nonspecific skin eruption] Onset: 4 Episodic Other upper respiratory disease (12 sources) Allergic rhinitis; Translations: [Allergic rhinitis, unspecified] [...] [Breast implant status] Chronic Residual codes; unclassified (17 sources) Chill 03-31-2020 Episodic Residual codes; unclassified [...] storm; Translations: [Hyperthyroidism] Onset: 4 Chronic Unclassified (13 sources) Body mass index 20-24 - normal 05-26-2020 Unclassified (4 sources) LOW BACK PAIN, UNSPECIFIED; Translations: [LOW BACK PAIN, UNSPECIFIED] Onset: 2 Unclassified (6 sources) Patient encounter status 06-24-2023 Urinary tract infections (17 sources) Urinary tract infectious disease 05-26-2020 Episodic Viral infection (17 sources) Herpes simplex 02-01-2019 Episodic Past or [...] with and (suspected) exposure to COVID19] Unclassified (17 sources) None (qualifier value) 12-11-2012 Unclassified (20 sources) Onset: 09-23-2004 Resolved: 03-09-2013 12-29-2014 Comment on above: pi Unclassified (1 source) LOW BACK PAIN, UNSPECIFIED; Translations: [LOW BACK PAIN, UNSPECIFIED] Onset: 06-11-2022 Results Test Name Value Interpretation Reference Range Facil ity US Thyroidon 01-16-2024 US Thyroid Exam Date/Time: 01/13/2024 17:22 EDT Reason for Exam: R22.1 Report IMPRESSION: NO NODULES IDENTIFIED. CLINICAL HISTORY: R22.1 COMPARISONS: None available. FINDINGS: Biplanar images were obtained. The right lobe measures 4.7 cm x 1.1 cm x 1.6 cm with a volume of 4.2 cm3. The left lobe measures 4.0 cm x 1.2 cm x 0.9 cm with a volume of 2.3 cm3. The isthmus measures 0.2 cm. The thyroid gland is normal in size. Right Lobe: Unremarkable. Left Lobe: Unremarkable. Previously seen nodules are not identified. Ordering Provider: Marta Puente FINAL REPORT Dictated: 01/16/2024 5:15 pm Landen Christian DO Signed (Electronic Signature): 01/16/2024 5:15 pm Signed by: Landen Christian DO Transcribed by: YAMINI Technologist: KYS Normal [facility] [place]enton 11-12-2023 Consent [id number]#1.00TIFF Normal [facility] Consent [id number]#1.00TIFF Normal [facility] Medicine Office/Clini c Noteon 11-12-2023 Family Medicine [...] with voice recognition artificial intelligence software, specifically Andel, [employer] and or Snupps. Substitutions may have occurred due to the inherent limitations of voice recognition and artificial intelligence software. Documentation services were performed after patient or guardian consented to allow [employer] to record this visit. DEX lubricating specialist Perlita Dominguez and provider reviewed before [...] per year, 06/24/2023 Employment/School Employed, Work/School description: [employer]., 02/01/2019 Home/Environment Lives with Children, Spouse., 02/01/2019 Substance Abuse - Denies Substance Abuse, 12/11/2012 Household substance abuse concerns: No., 06/24/2023 Tobacco - Denies Tobacco Use, 12/11/2012 Never (less than 100 in lifetime) Tobacco Use:. Never Smokeless Tobacco Use:. Household tobacco concerns: No., 11/12/2023 Family History Depression: Mother. Hepatitis C: Sister. Immunizations Vaccine Date Status Comments influenza viru (more content not included)... Normal [facility] Comment on above: Result Comment: Elec tronically Signed By: Paul Crook MD\.br\Date and Time Signed: 11/12/23 14:07 EDT\.br\Electronically Co-Signed By: Tyrone Garcia\.br\Date and Time Co-Signed: 11/12/23 13:40 EDT T3 Freeon 10-22-2023 Free T3 [Mass/Vol] 2.9 pg/mL Invalid Interpretation Code 2.0-4.4 [facility] Comment on above: Result Comment: Perf ormed at: [facility] [id number] PhD Mahnaz Conklin Performed By: #### 2 [id number], [id number], [id number] ####[facility] [address] [place] [address] CHEMISTRYOrdered By: SYSTEM SYSTEM on 10-21-2023 Free T4 [Mass/Vol] 0.65 ng/dL Normal 0.58 - 1.64 ng/dL Remisol Chem TSH Qn 4.41 m[IU]/L Normal 0.34 - 5.60 mcIU/mL Remisol Chem Consent for Treatmenton 09-23 Consent for Treatment [id number]#1.00TIFF Normal [facility] Free T4on 10-21-2023 Free T4 [Mass/Vol] 0.65 ng/dL Normal 0.58-1.64 [facility] Comment on above: Performed By: #### 2 [id number], [id number], [id number] ####[facility] [address] [place] [address] Physician Orderon 10-21-2023 Physician Order [id number]#1.00TIFF Normal [facility] TSHon 10-21-2023 TSH Qn 4.41 m[IU]/L Normal 0.34-5.60 [facility] Comment on above: Performed By: #### 2 169046, [id number], [id number] ####[facility] [address] [place] [address] Ambulatory Visit Summaryon 0 10-07-2023 Ambulatory Visit Summary JESSICA GRIFFITHS Jonathon :1985 Visit Date:10/07/2023 Ambulatory Visit Instructions Your Diagnosis Detrusor instability of bladder Thyroiditis, subacute Your Care Team Attending Physician - JUAN LUIS REES, Nancy Primary Care Physician - Nancy BARRIENTOS MD [...] urinary discomfort for bladder symptoms Pickup at [facility] Unchanged baclofen (baclofen 10 mg Tab) See [...] physician if questions or concerns Pharmacy Information [facility]: [address] [phone] Allergies Latex Tape (Rash) Problems Ongoing - [...] have a (more content not included)... Normal [facility] Family Medicine Office/Clini c Noteon 10-07-2023 Family [...] two weeks, she has not utilized any vaxz-nbv-xhnsrcu or old antibiotics, nor has she utilized [...] week. She is seeing Dr. Jonas in [place] for her thyroid. She has been trying [...] Urnls Dip Stick Auto w/o Microscopy POC 59150 2. Thyroiditis, subacute (E06.1: Subacute thyroiditis) Continue following with Dr. Jonas in [place] for management of the methimazole. 3. Lumbar [...] symptoms, # 30 tab(s), Refills(s) 0, Pharmacy: [facility], 168, cm, 10/07/23 10:32:00 EDT, Height/Length Dosing, 61, kg, 10/07/23 10:32:00 EDT, Weight Dosing Portions of this record may have been created with voice recognition artificial intelligence software, specifically Andel, [employer] and or [employer]. Substitutions may have occurred due to the inherent limitations of voice recognition and artificial intelligence software. Follow-up With When Contact Information Nancy BARRIENTOS MD, [facility] Only if needed Additional Instructions: Patient [...] Anterior lumba (more content not included)... Normal [facility] Comment on above: Result Comment: [...] this condition includes: ? Antibiotic medicine. ? Fdpj-lfa-zfsksnu medicines to treat discomfort. ? Drinking enough [...] these instructions at home: Medicines ? Take qtqh-vys-yaujifv and prescription medicines only as told by [...] Document Revie (more content not included)... Normal [facility] T3 Freeon 09-13-2023 Free T3 [Mass/Vol] 1.5 pg/mL Low 2.0-4.4 [facility] Comment on above: Result Comment: Perf ormed at: [facility] [address] [place], [place] [id number] PhD Mahnaz Conklin Performed By: #### 2 512321, [id number], 6742336, [id number], [id number] ####[facility] [address] [place] [address] Thyrotropin Receptor Antibod y, Serumon 09-13-2023 TSH receptor Ab Qn (S) <1.10 Invalid Interpretation Code 0.00-1.75 [facility] Comment on above: Result Comment: Perf ormed at: [facility] [address] [id number] MD Enrico Dean Performed By: #### 2 133302, [id number], [id number], 1396807, [id number] ####[facility] [address] [place] [address] CHEMISTRYOrdered By: SYSTEM SYSTEM on 09-10-2023 Albumin [...] for Treatmenton 08-22 Consent for Treatment [id number]#1.00TIFF Normal [facility] Free T4on 09-10-2023 Free T4 [Mass/Vol] ng/dL Low 0.58-1.64 [facility] Comment on above: Performed By: #### 2 564956, [id number], [id number], 3608352, 3741221 ####[facility] [address] [place] [address] Hep Func Panelon 09-10-2023 Albumin [Mass/Vol] 4.2 g/dL Normal 3.3-5.0 [facility] Comment on above: Performed By: #### 2 566118, [id number], [id number], 0870841, 2086361 ####[facility] [address] [place] [address] Albumin/Globulin (S) [Mass conc ratio] 1.4 Normal 1.1-2.2 [facility] Comment on above: Performed By: #### 2 312514, [id number], 7212505, 8762815, 2044838 ####[facility] [address] [place] [address] ALP [Catalytic activity/Vol] 66 Int._Unit/L Normal 21-98 [facility] Comment on above: Performed By: #### 2 154762, [id number], 6135452, 8357181, 1619524 ####[facility] [address] [place] [address] ALT No additional P-5'-P [Catalytic activity/Vol] 14 Int._Unit/L Normal 6-46 [facility] Comment on above: Performed By: #### 2 493216, [id number], 0561997, 3398735, 3668763 ####[facility] [address] [place] [address] AST [Catalytic activity/Vol] 22 Int._Unit/L Normal 5-43 [facility] Comment on above: Performed By: #### 2 629981, [id number], 9616372, 6158922, 6507465 ####[facility] [address] [place] [address] Bilirubin [Mass/Vol] 0.5 mg/dL Normal 0.0-1.1 [facility] Comment on above: Performed By: #### 2 943390, [id number], 0972868, 3551688, 1178651 ####[place] [id number] Bilirubin.direct [Mass/Vol] 0.1 mg/dL Normal 0.0-0.4 [facility] Comment on above: Performed By: #### 2 998461, [id number], 0056784, 9242863, 8310785 ####[facility] [address] [place] [address] Bilirubin.indirect [Mass or moles/Vol] 0.4 mg/dL Normal 0.1-0.9 [facility] Comment on above: Performed By: #### 2 098968, [id number], 8171826, 9235678, 4021554 ####[facility] [address] [place] [address] Globulin (S) [Mass/Vol] 3.0 g/dL Normal 1.4-4.0 [facility] Comment on above: Performed By: #### 2 300136, [id number], 8604123, 5765577, 6166478 ####[place] [address] [place] [address] Protein [Mass/Vol] 7.2 g/dL Normal 6.0-7.8 [facility] Comment on above: Performed By: #### 2 982958, [id number], 6939028, 3369768, 7416197 ####[facility] [address] [place] [address] Physician Orderon 09-10-2023 Physician Order [id number]#1.00TIFF Normal [facility] TSHon 09-10-2023 TSH Qn 68.80 m[IU]/L High 0.34-5.60 [facility] Comment on above: Performed By: #### 2 079513, [id number], 9373124, 6506101, 3419946 ####[facility] [address] [place] [address] Consultation Noteon 08-12-19 Consultation Note [id number]#1.00TIFF [facility] Insurance Correspondenceon 0 08-05-2023 Insurance Correspondence [id number]#1.00TIFF [facility] Consultation Noteon 08-04-19 Consultation Note [id number]#1.00TIFF [facility] .Thyroglobulin by RIAon 07-24 Thyroglobulin [Mass/Vol] 159 ng/mL High [facility] Comment on above: Result Comment: Conf irmed by dilution. This test was developed and its performance characteristics determined by [employer]. It has not been cleared or approved [...] quantitation limit is 2.0 ng/mL. Performed at: [facility] [address] [place] [address] [id number] MD Yadiel Cornell Performed By: #### 7 [id number], 3821582, 68556317, 3984577, [id number], [id number] ####[facility] [address] [place] [address] T3 Reverseon 08-02-2023 T3.reverse [Mass/Vol] 31.2 ng/dL High 9.2-24.1 Fis her [facility] Comment on above: Result Comment: This test was developed and its performance characteristics determined by [employer]. It has not been cleared or approved by the Food and Drug Administration. Performed at: [address] [place], [place] [id number] MD Enrico Dean Performed By: #### 7 [id number], 9430208, 91405443, 0297597, [id number], [id number] ####[facility] [address] [place] [address] TgAb+Thyroglobulinon 024 Thyroglobulin Ab Qn 2.7 International_Unit /mL High 0.0-0.9 [facility] Comment on above: Result Comment: Thyr oglobulin Antibody measured by Nakul Leslie Methodology Performed at: [address] [id number] PhD Mahnaz [facility] Performed By: #### 7 [id number], 8175901, 38415391, 5882222, 148522309, 08877582 ####[facility] [address] [place] [address] Thyroid Perox.tpo Abon 08-02 TPO Ab Qn [IU]/mL Invalid Interpretation Code 0-34 [facility] Comment on above: Result Comment: Perf ormed at: [address] [id number] PhD Mahnaz [facility] Performed By: #### 7 [id number], 6521104, 01918795, 6548116, [id number], 47821828 ####[address] [place] [address] Family Medicine Office/Clini c Noteon 07-29-2023 Family [...] and imagi (more content not included)... Normal [facility] Comment on above: Result Comment: Elec tronically Signed By: Paul Crook MD\.br\Date and Time Signed: 07/29/23 18:15 EST\.br\Electronically Co-Signed By: Jaja Alex\.br\Date and Time Co-Signed: 07/24/23 18:17 EST Interdisciplinary Note - Soc ial Workeron 07-28-2023 Interdisciplinary Note - Solutions Sales Executive This SW made a tc to patient [...] needs arise. SW will remain available. Normal [facility] Ambulatory Visit Summaryon 0 07-24-2023 Ambulatory Visit Summary JESSICA GRIFFITHS :1985 Visit Date:07/24/2023 Ambulatory Visit Instructions Your Diagnosis Palpitations Nodule of left lobe of thyroid gland Abnormal thyroid stimulating hormone level Thyroiditis, subacute Heart murmur BMI 21.0-21.9, adult Non-smoker Your Care Team Attending Physician - Paul Crook MD Primary Care Physician - Nancy BARRIENTOS [...] hormone level, Print Label By Order Location, [address]\.br\ Echo Transthoracic Complete, 07/24/23, Routine, Order for future visit, Transport Mode: Ambulatory, Reason: Other (please specify), Reason: murmur, Heart murmur, pp_set_radiology_ subspecialty, [facility], [facility]\.br\ Medications\.br\ What How Much When Instructions\.br\ New propranolol (propranolol 10 mg Tab) 1 Tablets By Mouth Once Pickup at [facility]\.br\ Unchanged baclofen (baclofen 10 mg Tab) See [...] if questions or concerns \.br\ Pharmacy Information\.br\ [facility] 5309: [address] [phone]\.br\ Allergies\.br\ Latex\.br\ Tape (Rash)\.br\ Problems\.br\ Ongoing - [...] for choosing us for your care.\.br\ \.br\ [facility] Ambulatory Visit Summaryon 0 07-18-2023 Ambulatory Visit Summary JESSICA GRIFFITHS :1985 Visit Date:07/18/2023 Ambulatory Visit Instructions Your Diagnosis Thyroiditis, subacute Nodule of left lobe of thyroid gland Hyperthyroidism Odynophagia Acid reflux Your Care Team Attending Physician - JUAN LUIS REES, Nancy Primary Care Physician - Nancy BARRIENTOS MD [...] Appointments Follow Up with Nancy BAR[facility]ENTOS MD [facility] When: Only if needed Where: Medications [...] You smoke (more content not included)... Normal [facility] CHEMISTRYOrdered By: SYSTEM SYSTEM on 07-18-2023 Free T4 [Mass/Vol] 2.22 ng/dL High 0.58 - 1.64 ng/dL Remisol Chem TSH Qn 0.01 m[IU]/L Low 0.34 - 5.60 mcIU/mL Remisol Chem Clipboard Summaryon 07-18-19 24 Clipboard Summary {23-tn-o1-2d-15-1c -82-8m-w2-9a-b9-6d -cb-25-c2-ac}XML Normal [facility] Consent for Treatmenton 06-24 Consent for Treatment [id number]#1.00TIFF Normal [facility] Family Medicine Office/Clini c Noteon [...] and had a biopsy on Friday at [facility], carried out by the radiology department interventional [...] Nonicteric sclera. Oropharynx pink and moist. Adequate cachil dehe dentition. Anterior neck, there is a fullness [...] the pathology report on her phone from [facility] which indicates benign cellularity although admittedly [...] Dysphagia, unspecified) (more content not included)... Normal [facility] Comment on above: Result Comment: Elec tronically Signed By: JUAN LUIS REES, Nancy\.br\Date and Time Signed: 07/18/23 19:02 EST Free T4on 07-18-2023 Free T4 [Mass/Vol] 2.22 ng/dL High 0.58-1.64 [facility] Comment on above: Performed By: #### 7 [id number], 1525427, 26860486, 9459792, [id number], 56654786 #### [facility] Laboratory [address] [place] [address] Patient Educationon 07-18-19 24 Patient Education Endocrinology [...] Follow these instructions at home: ? Take scqu-rcc-ufadsrc and prescription medicines only as told by [...] Where to find more information ? National [place] of Diabetes and Digestive and Kidney Diseases: [...] as u (more content not included)... Normal [facility] TSHon 07-18-2023 TSH Qn 0.01 m[IU]/L Low 0.34-5.60 [facility] Comment on above: Performed By: #### 7 [id number], 4634661, 22347210, 8857957, 109872009, 06874501 #### [facility] [address] [place] [address] Mata 07-14-2023 L Specimen: [id number] Received: 07/15/23 Status: DENA Sifuentes Num: [id number] Spec Type: Cytology Subm Dr: MARTA PUENTE MD Tissues: A FNA SLIDES NOPATH (LT THYROID NOD) Procedures: Cyto Int and Re, PAPSTN/5 Age/ Patient Sex Location Account Attending Physician RoccoJessica Jonathon 37/F LABELL [id number] MARTA PUENTE MD SPEC NUM: [id number] RECD: 07/15/23 STATUS: DENA SIFUENTES NUM: [id number] KANCHAN: 07/14/23- SUBM DR: MARTA PUENTE MD ENTERED: 07/15/[address] [facility] DR: Neno Quiroz SPEC TYPE: Cytology DEPT: ROYER OHADRY ENTERED BY: [id number] RECV BY: [id number] ORDERED: Cyto Int and Re, PAPSTN/5 ORDERED: Cyto Int and Re, PAPSTN/5 Pathological Diagnosis Left thyroid mid lobe nodule, FNA cytology: - Adequate but slightly limited for assessment - The [place] system is category 2: Benign - A [...] slides for microscopic examination.(CC/nh ) -- Specimen: BC Received: 07/15/23 Status: DENA Sifuentes Num: [id number] Spec Type: Cytology Subm Dr: MARTA PUENTE MD Tissues: A FNA SLIDES NOPATH (LT THYROID NOD) Procedures: Cyto Int and Re, PAPSTN/5 -- Patient: Jessica Griffiths [id number] (Continued) -- Specimen: [id number] Received: 07/15/23 (Continued) Signed (signatu re on file) Alfonso Correa MD 07/16/231122 -- Specimen: [id number] Received: 07/15/23 Status: DENA Sifuentes Num: [id number] Spec Type: Cytology Subm Dr: MARTA PUENTE MD Tissues: A FNA SLIDES NOPATH (LT THYROID NOD) Procedures: Cyto Int and Re, PAPSTN/5 -- Patient: Jessica Griffiths [id number] (Continued) -- Specimen: BC Received: 07/15/23 (Continued) CPT Codes 99943 -- -- Specimen: BC Received: 07/15/23 Status: DENA Sifuentes Num: [id number] Spec Type: Cytology Subm Dr: MARTA PUENTE MD Tissues: A FNA SLIDES NOPATH (LT THYROID NOD) Procedures: Cyto Int and Re, PAPSTN/5 -- Patient: Jessica Griffiths [id number] (Continued) -- Signed (signatu re on file) Alfonso Correa MD 07/16/23 1123 [facility] Thyroid Imaging w/ Uptk Angelito ortega 07-09-2023 OR Thyroid Imaging w/ Uptk Multiple Exam Date/Time: [...] the thyroid scan images. Ordering Provider: Paul Crook FINAL REPORT Dictated: 07/09/2023 3:40 pm Armen Royal M.D. Signed (Electronic Signature): 07/09/2023 3:40 pm Signed by: Armen Royal M.D. Transcribed by: YAMINI Technologist: MALCOLM Technical Comments 2 Hour Uptake (Normal 1 - 9%): 1.8 24 Hour Uptake (Normal 10 - 30%): 0.8 Radiopharmaceutica l Administration Dose (microcuries I-123 Diagnostic Capsule): 203.5 Imaging Post Administration (hrs): 24 Normal [facility] CHEMISTRYOrdered By: SYSTEM SYSTEM on 07-08-2023 Cholesterol [...] for Treatmenton 06-23 Consent for Treatment [id number]#1.00TIFF Normal [facility] Lipid Panelon 07-08-2023 Cholesterol [Mass/Vol] 145 mg/dL Normal 120-200 [facility] Comment on above: Performed By: #### 2 762309 ####[facility] [address] [place] [address] Cholesterol in HDL [Mass/Vol] 62 mg/dL Invalid Interpretation Code [facility] Comment on above: Result Comment: '>= 60 LOW RISK' '<= 40 HIGH RISK' Performed By: #### 2 763425 ####[facility] [address] [place] [address] Cholesterol in LDL [Mass/Vol] 76 mg/dL Normal <=129 [facility] Comment on above: Performed By: #### 2 554825 ####[facility] [address] [place] [address] Cholesterol in VLDL [Mass/Vol] 10 mg/dL Normal 7-40 [facility] Comment on above: Performed By: #### 2 022140 ####[facility] [address] [place] [address] Triglyceride [Mass/Vol] 52 mg/dL Normal <=149 [facility] Comment on above: Performed By: #### 2 560597 ####[facility] [address] [place] [address] UA With Cult Reflexon 2023 Bacteria LM Ql (Urine sed) 1+ /HPF Abnormal Trace [facility] Comment on above: Performed By: #### 1 5759623 ####[facility] [address] [facility] [place] [address] Bilirubin Ql (U) Negative Normal Negative [facility] Comment on above: Performed By: #### 1 0056002 ####[address] [address] Clarity (U) CLEAR Normal Clear [facility] Comment on above: Performed By: #### 1 3381734 ####[address] [address] Color (U) YELLOW Normal Yellow [facility] Comment on above: Performed By: #### 1 5655283 ####[address] [address] Epithelial cells.squamous LM.HPF (Urine sed) [#/Area] /[HPF] Normal 0-2 [facility] Comment on above: Performed By: #### 1 4831523 ####[facility] [address] [place] [address] Glucose Test strip (U) [Mass/Vol] Negative Normal Negative [facility] Comment on above: Performed By: #### 1 4845022 ####[facility] [address] [place] [address] Hemoglobin Ql (U) Negative Normal Negative [facility] Comment on above: Performed By: #### 1 7536627 ####[facility] [address] [place] [address] Ketones (U) [Mass/Vol] TRACE Abnormal Negative [facility] Comment on above: Performed By: #### 1 8289401 ####[address] [place] [address] Seth Ward.plasma/Lithiu m.RBC (Bld) [Mass ratio] 0-3 Normal 0-3 [facility] Comment on above: Performed By: #### 1 5452071 ####[facility] [address] [place] [address] Mucus Ql (Urine sed) 2+ Normal Fish er [facility] Comment on above: Performed By: #### 1 7316027 ####[address] [address] Nitrite Ql (U) Negative Normal Negative [facility] Comment on above: Performed By: #### 1 3784040 ####[address] [address] pH (U) 6.5 [pH] Invalid Interpretation Code 5.0-9.0 [facility] Comment on above: Performed By: #### 1 0838799 ####[address] [address] Protein (U) [Mass/Vol] Negative Normal Negative [facility] Comment on above: Performed By: #### 1 4135689 ####[address] [address] Specific gravity (U) [Rel density] 1.015 Invalid Interpretation Code 1.005-1.030 [facility] Comment on above: Performed By: #### 1 1739409 ####[address] [address] Type of Urine collection method Clean Catch Normal [facility] Comment on above: Performed By: #### 1 7233825 ####[address] [address] Urobilinogen Qn (U) 0.2 {Dylan'U}/dL Normal 0.0-1.0 [facility] Comment on above: Performed By: #### 1 1298820 ####[address] [address] WBC Auto Ql (U) Negative Normal Negative [facility] Comment on above: Performed By: #### 1 5775101 ####[address] [address] WBC LM.HPF (Urine sed) [#/Area] 0-5 Normal 0-5 [facility] Comment on above: Performed By: #### 1 6163767 ####[facility] [address] [place] [address] URINALYSISOrdered By: Jennifer morris on 07-08-2023 Bacteria [...] Interpretation Code Negative [facility] UA Auto SS Seth Ward.plasma/Lithiu m.RBC (Bld) [Mass ratio] 0-3 /HPF Normal [...] [facility] UA Auto SS Urobilinogen Qn (U) 0.7005164 {Dylan'U}/dL Normal 0.0 - 1.0 EU/dL [facility] [place] Auto SS WBC Auto Ql (U) Negative (07/08/23 7:42 AM) Normal Negative [facility] [place] Auto SS WBC LM.HPF (Urine sed) [#/Area] 0-5 /HPF Normal 0-5/HPF [facility] UA Auto SS Insurance Correspondenceon 0 07-01-2023 Insurance Correspondence [id number]#1.00TIFF Normal [facility] Physician Referralon 024 Physician Referral [id number]#1.00TIFF Normal [facility] Consent for Treatmenton Consent for Treatment [id number]#1.00TIFF Normal [facility] US Thyroidon 06-27-2023 US Thyroid [...] is identified (TR 4). Ordering Provider: Paul Crook FINAL REPORT Dictated: 06/27/2023 11:42 am Cassius Ernst MD Signed (Electronic Signature): 06/27/2023 11:42 am Signed by: Cassius Ernst MD Transcribed by: YAMINI Technologist: FAISAL Price [facility] Family Medicine Office/Clini c Noteon 06-24-2023 Family [...] with voice recognition artificial intelligence software, specifically [employer] and or [employer]. Substitutions may have occurred due to the inherent limitations of voice recognition and artificial intelligence software. Documentation services were performed after patient or guardian consented to allow [employer] to record this visit. D (more content not included)... Normal [facility] Comment on above: Result Comment: Elec tronically Signed By: Paul Crook MD\.br\Date and Time Signed: 06/24/23 18:25 EST\.br\Electronically Co-Signed By: Jaja Alex\.br\Date and Time Co-Signed: 06/24/23 18:04 EST T3 Freeon 06-22-2023 Free T3 [Mass/Vol] 4.2 pg/mL Invalid Interpretation Code 2.0-4.4 [facility] Comment on above: Result Comment: Perf ormed at: [facility] [address] [id number] PhD Mahnaz [facility] Performed By: #### 2 263312, 0734454, 2672326, 28852858 ####[address] [place] [address] Auto Diffon 06-21-2023 Basophils/100 WBC (Bld) 0.3 % Normal 0.0-2.0 [facility] Comment on above: Order Comment: Order Added by Jay Expert. Performed By: #### 1 9434946, 6463670, 6891334, 6825356, 1778844 #### [facility] [address] [place] [address] Basophils/Leukocytes Auto (Bld) [Pure # fraction] 0.0 E9/L Normal 0.0-0.2 [facility] Comment on above: Order Comment: Order Added by Discern Expert. Performed By: #### 1 3378657, 3207330, 4889255, 5346530, 0850930 #### [facility] [address] [place] [address] Eosinophils/100 WBC (Bld) 0.6 % Normal 0.0-8.0 [facility] Comment on above: Order Comment: Order Added by Jay Expert. Performed By: #### 1 0717840, 3985241, 4291399, 8223644, 3940831 #### [facility] [address] [place] [address] Eosinophils/Leukocyte s Auto (Bld) [Pure # fraction] 0.0 E9/L Normal 0.0-0.5 [facility] Comment on above: Order Comment: Order Added by Jay Expert. Performed By: #### 1 6962824, 3303917, 2763865, 0914305, 9024367 #### [facility] [address] [place] [address] Lymphocytes/100 WBC (Bld) 20.6 % Normal 14.0-50.0 [facility] Comment on above: Order Comment: Order Added by Jay Expert. Performed By: #### 1 4231740, 9873628, 7308261, 5628418, 6711634 #### [facility] [address] [place] [address] Lymphocytes/Leukocyte s Auto (Bld) [Pure # fraction] 1.7 E9/L Normal 1.0-4.0 [facility] Comment on above: Order Comment: Order Added by Jay Expert. Performed By: #### 1 4089358, 7412689, 2533749, 4616728, 9179929 #### [facility] [address] [place] [address] Monocytes/100 WBC (Bld) 6.6 % Normal 4.0-14.0 [facility] Comment on above: Order Comment: Order Added by Discern Expert. Performed By: #### 1 9572715, 1193575, 4001842, 9218935, 4773753 #### [facility] [address] [place] [address] Monocytes/Leukocytes Auto (Bld) [Pure # fraction] 0.5 E9/L Normal 0.2-1.0 [facility] Comment on above: Order Comment: Order Added by Discern Expert. Performed By: #### 1 3784564, 0487004, 7797906, 2409593, 5892780 #### [facility] [address] [place] [address] Neutrophils/100 WBC (Bld) 71.9 % Normal 36.0-75.0 [facility] Comment on above: Order Comment: Order Added by Discern Expert. Performed By: #### 1 1225691, 2141390, 2556677, 4555313, 0732413 #### [facility] [address] [place] [address] Neutrophils/Leukocyte s Auto (Bld) [Pure # fraction] 5.8 E9/L Normal 2.0-7.5 [facility] Comment on above: Order Comment: Order Added by Discern Expert. Performed By: #### 1 3341952, 6100542, 0735668, 5434054, 2339787 #### [facility] [address] [place] [address] CBC w/ Auto Diffon 3 Erythrocyte distribution width (RBC) [Ratio] 12.6 % Normal 10.9-14.2 [facility] Comment on above: Performed By: #### 1 2713264, 9098583, 7828044, 2329359, 4856897 #### [facility] [address] [place] [address] Hematocrit (Bld) [Volume fraction] 37.8 % Normal 34.0-46.0 [facility] Comment on above: Performed By: #### 1 0594520, 1090609, 5618082, 8018395, 2111060 #### [facility] [address] [place] [address] Hemoglobin (Bld) [Mass/Vol] 12.7 g/dL Normal 12.0-16.0 [facility] Comment on above: Performed By: #### 1 3956561, 8773453, 2955658, 5502592, 4548534 #### [facility] [address] [place] [address] MCH (RBC) [Entitic mass] 32.2 pg Normal 27.0-34.0 [facility] Comment on above: Performed By: #### 1 2914231, 2555615, 2716542, 4626796, 6176345 #### [facility] [address] [place] [address] MCHC (RBC) [Mass/Vol] 33.8 g/dL Normal 31.4-36.0 [facility] Comment on above: Performed By: #### 1 6647745, 9730195, 8967715, 9168478, 8187647 #### [facility] [address] [place] [address] MCV (RBC) [Entitic vol] 95.5 fL Normal 80.0-100.0 [facility] Comment on above: Performed By: #### 1 0899803, 8006224, 7871507, 2057030, 4495068 #### [facility] [address] [place] [address] Platelet mean volume (Bld) [Entitic vol] 8.5 fL Normal 6.4-10.8 [facility] Comment on above: Performed By: #### 1 9435004, 9632804, 2316479, 9310519, 8120039 #### [facility] [address] [place] [address] Platelets (Bld) [#/Vol] 303.0 E9/L Normal 150.0-500.0 [facility] Comment on above: Performed By: #### 1 7527116, 5587361, 2429411, 2439307, 8107925 #### [facility] [address] [place] [address] RBC (Bld) [#/Vol] 4.0 E12/L Low 4.3-5.9 [facility] Comment on above: Performed By: #### 1 4471587, 0161245, 9747608, 4312233, 8948188 #### [facility] [address] [place] [address] WBC corrected for nucl RBC Auto (Bld) [#/Vol] 8.1 E9/L Normal 4.0-11.0 [facility] Comment on above: Performed By: #### 1 9912176, 2020900, 5544940, 5490697, 4335781 #### [facility] [address] [place] [address] CHEMISTRYOrdered By: SYSTEM SYSTEM on 06-21-2023 Albumin [...] 06-21-2023 Albumin [Mass/Vol] 3.8 g/dL Normal 3.3-5.0 [facility] Comment on above: Performed By: #### 1 9287785, 6320770, 4177918, 0798819, 2588959 #### [facility] [address] [place] [address] Albumin/Globulin [Mass ratio] 1.3 {ratio} Normal 1.1-2.2 [facility] Comment on above: Performed By: #### 1 4029981, 7799668, 5703987, 8906571, 0159680 #### [facility] [address] [place] [address] Alk Phos 83 Int._Unit/L Normal 21-98 [facility] Comment on above: Performed By: #### 1 8090390, 7468207, 8398832, 9060289, 7588185 #### [facility] [address] [place] [address] ALT 10 Int._Unit/L Normal 6-46 [facility] Comment on above: Performed By: #### 1 7496380, 5738389, 1820918, 9641566, 3264251 #### [facility] [address] [place] [address] Anion gap [Moles/Vol] 10 mmol/L Normal 6-16 [facility] Comment on above: Performed By: #### 1 9126549, [id number], [id number], [id number], [id number] #### [facility] [address] [place] [address] AST 15 Int._Unit/L Normal 5-43 [facility] Comment on above: Performed By: #### 1 [id number], 4348398, 4690207, 2820337, 9666062 #### [facility] [address] [place] [address] Bili Total 0.5 mg/dL Normal 0.0-1.1 [facility] Comment on above: Performed By: #### 1 [id number], 1997170, 2987642, 3918692, 1870063 #### [facility] [address] [place] [address] BUN/Creat Ratio 22 No Units High 10-20 [facility] Comment on above: Performed By: #### 1 [id number], 9920429, 2995173, 1348686, 9974192 #### [facility] [address] [place] [address] Calcium [Mass/Vol] 8.7 mg/dL Low 8.9-11.1 [facility] Comment on above: Performed By: #### 1 0284104, 5880889, 2179726, 8138090, 2229011 #### [facility] [address] [place] [address] Chloride [Moles/Vol] 103 mmol/L Normal 101-111 [facility] Comment on above: Performed By: #### 1 [id number], 7633693, 9726244, 8875789, 3299712 #### [facility] [address] [place] [address] CO2 [Moles/Vol] 29 mmol/L Normal 21-31 [facility] Comment on above: Performed By: #### 1 9354208, 1922820, 0297272, 3231418, 2315726 #### [facility] [address] [place] [address] Creatinine [Mass/Vol] 0.6 mg/dL Normal 0.5-1.3 [facility] Comment on above: Performed By: #### 1 7983862, 3984756, 9241359, 4129359, 3212317 #### [facility] [address] [place] [address] Globulin (S) [Mass/Vol] 3.0 g/dL Normal 1.4-4.0 [facility] Comment on above: Performed By: #### 1 4387776, 8123114, 2411605, 7330502, 4661061 #### [facility] [address] [place] [address] Glucose [Mass/Vol] 84 mg/dL Normal 55-199 [facility] Comment on above: Performed By: #### 1 1444978, 0900264, 5942318, 6775901, 4978671 #### [facility] [address] [place] [address] Potassium [Moles/Vol] 3.9 mmol/L Normal 3.5-5.3 [facility] Comment on above: Performed By: #### 1 4114533, 7290312, 9461391, 5268197, 2079507 #### [facility] [address] [place] [address] Protein [Mass/Vol] 6.8 g/dL Normal 6.0-7.8 [facility] Comment on above: Performed By: #### 1 5136549, 3920284, 0317476, 2684527, 6768117 #### [facility] [address] [id number] Sodium [Moles/Vol] 138 mmol/L Normal 135-145 [facility] Comment on above: Performed By: #### 1 3613841, 5702405, 5022583, 8313722, 5617783 #### [facility] [address] [place] [id number] Urea nitrogen [Mass/Vol] 13 mg/dL Normal 5-21 [facility] Comment on above: Performed By: #### 1 1426849, 2424056, 9792645, 1487241, 8351575 #### [facility] [address] [place] [id number] Consent for Treatmenton 05-25 Consent for Treatment [id number] Normal [facility] Free T4on 06-21-2023 Free T4 [Mass/Vol] 1.37 ng/dL Normal 0.58-1.64 [facility] Comment on above: Performed By: #### 1 3999253, 4413249, 0099486, 8421805, 7100777 #### [facility] [address] [place] [address] HEMATOLOGYOrdered By: SYSTEM SYSTEM on 06-21-2023 Basophils/100 [...] HemeAutoSS Physician Orderon 06-21-2023 Physician Order [id number] Normal [facility] T3 Uptakeon 06-21-2023 T3 Uptake 46.6 % Normal 32.0-48.4 [facility] Comment on above: Performed By: #### 2 429886, 5602317, 7808643, 14295783 ####[facility] [address] [place] [address] T4 Totalon 06-21-2023 T4 18.8 microgram/dL High 4.6-9.1 [facility] Comment on above: Performed By: #### 2 960039, 7147607, 9937425, 83673966 ####[facility] [address] [place] [address] TSHon 06-21-2023 TSH Qn 0.07 m[IU]/L Low 0.34-5.60 [facility] Comment on above: Performed By: #### 2 586257, 0889780, 8008313, 62136268 ####[facility] [address] [place] [address] eGFRon 06-21-2023 GFR/1.73 sq M.predicted among non-blacks MDRD (S/P/Bld) [Vol rate/Area] mL/min/{1.73_m2} Normal >=59 [facility] Comment on above: Order Comment: Order added by Discern Expert. Performed By: #### 1 8047699, 6547118, 9824038, 3385574, 7500633 #### [facility] [address] [place] [address] Family Medicine Office/Clini c Noteon 06-20-2023 Family [...] with voice recognition software. Occasional wrong-word or ?abist-e-wzbk? substitutions may have occurred due to the [...] know she has been working with her [employer] SUPERVISOR in regards to blood test and lab [...] lost some weight. But again is seeing [employer]INTENAN[employer] SUPERVISOR in regards to these fluctuations denies any [...] with prim (more content not included)... Normal [facility] Comment on above: Result Comment: [...] weeks. Home care treatment may include: ? Hwob-qnn-cdxrwaw pain relievers. ? A warm, moist cloth placed over the ear. Severe cases may require a procedure to insert tubes in the ears (tympanostomy tubes) to drain the fluid. Follow these instructions at home: ? Take dbzv-iuq-nqshksl and prescription medicines only as told by [...] provider. Document Revised: 10/04/2021 Document Reviewed: 10/04/2021 [employer] Patient Education ? 2022 [employer] Endocrinology Thyroid Nodule A thyroid nodule [...] not included)... Normal [facility] MRI Spine Cervical w/o Contr elvira 06-10-2023 [...] (Electronic Signature): 06/10/2023 10:16 am Signed by: oJse Tatum MD, V. Transcribed by: YAMINI Technologist: CAPRI Technical Comments None Normal [facility] Consent for Treatmenton 05-23 Consent for Treatment [id number]#[id number] Normal [facility] RAD - MRI Screening Formon 1 08-10-2022 RAD - MRI Screening Form [id number]#1.00TIFF Normal [facility] Physician Orderon 06-03-2023 Physician Order [id number] Normal [facility] Consent for Treatmenton Consent for Treatment [id number]#1.00TIFF Normal [facility] Physician Orderon 04-28-2023 Physician Order [id number]#1.00TIFF [facility] XR Spine Cervical 4 or 5 [...] mGy = na DAP = na Normal [facility] EMG Electromyographyon 01-21 EMG Electromyography [id number]#1.00CD:127 Normal [facility] CHEMISTRYOrdered By: SYSTEM SYSTEM on [...] developed and its performance characteristics determined by [employer]. Nucleic acid amplification tests include RT-PCR and [...] detected) result in this assay. Performed at: [address] [id number] PhD Mahnaz Conklin Vital Signs Date Time Vital Sign Value Performing Clinician Facility 11-12-2023 12:45-0400 Blood Pressure Location Paul Gudimella [facility] 11-12-2023 12:45-0400 Diastolic blood pressure 76 mm[Hg] Paul Gudimella [facility] 11-12-2023 12:45-0400 Heart rate 72 /min Paul Gudimella [facility] 11-12-2023 12:45-0400 SaO2% (BldA) [Mass fraction] 99 % Paul Gudimella [facility] 11-12-2023 12:45-0400 Systolic blood pressure 116 mm[Hg] Paul Gudimella [facility] 10-07-2023 10:22-0400 Blood Pressure Location Christopher BROWN [facility] 10-07-2023 10:22-0400 Body temperature 97.88 [degF] Christopher BROWN [facility] 10-07-2023 10:22-0400 Diastolic blood pressure 76 mm[Hg] Christopher BROWN [facility] 10-07-2023 10:22-0400 Heart rate 66 /min Christopher BROWN [facility] 10-07-2023 10:22-0400 Respiratory rate 16 /min Christopher BROWN [facility] 10-07-2023 10:22-0400 SaO2% (BldA) [Mass fraction] 100 % Christopher BROWN [facility] 10-07-2023 10:22-0400 Systolic blood pressure 116 mm[Hg] Christopher BROWN [facility] 08-04-2023 11:27-0500 Body height 167.6 cm Marta Puente MD Work Phone: [facility] 08-04-2023 11:27-0500 Body mass index (BMI) [Ratio] 21.14 kg/m2 Marta Puente MD Work Phone: [facility] 08-04-2023 11:27-0500 Body weight 59.42 kg Marta Puente MD Work Phone: [facility] 08-04-2023 11:27-0500 Diastolic blood pressure 81 mm[Hg] Marta Puente MD Work Phone: [facility] 08-04-2023 11:27-0500 Systolic blood pressure 111 mm[Hg] Marta Puente MD Work Phone: [facility] 07-24-2023 13:41-0500 Blood Pressure Location Paul Gudimella [facility] 07-24-2023 13:41-0500 Diastolic blood pressure 70 mm[Hg] Paul Gudimella [facility] 07-24-2023 13:41-0500 Heart rate 86 /min Paul Gudimella [facility] 07-24-2023 13:41-0500 SaO2% (BldA) [Mass fraction] 98 % Paul Gudimella [facility] 07-24-2023 13:41-0500 Systolic blood pressure 106 mm[Hg] Paul Gudimella [facility] 07-18-2023 16:16-0500 Blood Pressure Location Nancy BARRIENTOS [facility] 07-18-2023 16:16-0500 Diastolic blood pressure 60 mm[Hg] Nancy BARRIENTOS [facility] 07-18-2023 16:16-0500 Heart rate 92 /min Nancy BARRIENTOS [facility] 07-18-2023 16:16-0500 Respiratory rate 16 /min Nancy BARRIENTOS [facility] 07-18-2023 16:16-0500 SaO2% (BldA) [Mass fraction] 98 % Nancy BARRIENTOS [facility] 07-18-2023 16:16-0500 Systolic blood pressure 90 mm[Hg] Nancy BARRIENTOS [facility] 06-24-2023 13:49-0500 Blood Pressure Location Paul Gudimella [facility] 06-24-2023 13:49-0500 Diastolic blood pressure 72 mm[Hg] Paul Gudimella [facility] 06-24-2023 13:49-0500 Heart rate 89 /min Paul Gudimella [facility] 06-24-2023 13:49-0500 SaO2% (BldA) [Mass fraction] 97 % Paul Gudimella [facility] 06-24-2023 13:49-0500 Systolic blood pressure 98 mm[Hg] Paul Gudimella [facility] 06-20-2023 18:43-0500 Blood Pressure Location Filiberto Shoaib [facility] 06-20-2023 18:43-0500 Body temperature 98.06 [degF] Filiberto Cramer [facility] 06-20-2023 18:43-0500 Diastolic blood pressure 76 mm[Hg] Filiberto Cramer [facility] 06-20-2023 18:43-0500 Heart rate 96 /min Filiberto Cramer [facility] 06-20-2023 18:43-0500 SaO2% (BldA) [Mass fraction] 98 % Filiberto Cramer [facility] 06-20-2023 18:43-0500 Systolic blood pressure 122 mm[Hg] Filiberto Cramer [facility] 12-28-2021 11:20-0400 Body height 167.64 cm Ric Tinoco Other [employer] Other 12-28-2021 11:20-0400 Body mass index (BMI) [Ratio] 21.14 kg/m2 Ric Tinoco Other [employer] Other 12-28-2021 11:20-0400 Body weight 59.42 kg Ric Tinoco Other [employer] Other 04-17-2021 15:40-0400 Body height 167.64 cm Ric Tinoco Other [employer] Other 04-17-2021 15:40-0400 Body mass index (BMI) [Ratio] 21.14 kg/m2 Ric Tinoco Other [employer] Other 04-17-2021 15:40-0400 Body weight 59.42 kg Ric Tinoco Other [employer] Other 05-31-2020 15:50-0500 Body weight 63.96 kg Kathy Pereira [facility] [place] , [place] 05-31-2020 15:50-0500 BP Diastolic 79 mm[Hg] Kathy Pereira [facility] [place] [facility] [place] 05-31-2020 15:50-0500 BP Systolic 107 mm[Hg] Kathy Pereira [facility] [place] [facility] [place] 05-31-2020 15:50-0500 Pulse (Heart Rate) 67 /min Kathy Pereira [facility] [place] 05-31-2020 15:50-0500 Pulse Oximetry 100 % Kathy Pereira [facility] [place] [facility] [place] 05-31-2020 15:50-0500 Respiratory Rate 20 /min Kathy Pereira [facility] [place] Encounters Encounter Date Encounter Type Care Provider Facility Start: 01-13-2024 End: 01-13-2024 ambulatory Marta Puente [place] Start: 01-13-2024 End: 01-13-2024 Patient encounter procedure Marta Puente [place] Start: 11-12-2023 End: 11-12-2023 ambulatory MD Paul Crook Facility:[facility] Start: 11-12-2023 End: 11-12-2023 Patient encounter procedure Paul Crook [facility] [place] Start: 10-21-2023 End: 10-21-2023 ambulatory PETRA MORELAND Not Available Start: 10-21-2023 End: 10-21-2023 ambulatory AMAIRANI JONAS [place] Start: 10-21-2023 End: 10-21-2023 Patient encounter procedure AMAIRANI JONAS [place] Start: 10-07-2023 End: 10-07-2023 ambulatory Nancy BARRIENTOS Facility:[facility] Start: 10-07-2023 End: 10-07-2023 Patient encounter procedure Nancy BARRIENTOS [facility] Start: 09-10-2023 End: 09-10-2023 ambulatory AMAIRANI JONAS [place] Start: 09-10-2023 End: 09-10-2023 Patient encounter procedure AMAIRANI JONAS [place] Start: 08-04-2023 Bamboo flowsheet Marta rubio MD Work Phone: [facility] Start: 08-04-2023 Bamboo flowsheet Marta rubio MD Work Phone: [facility] Start: 08-04-2023 End: 08-04-2023 ambulatory MARTA PUENTE Not Available Start: 08-04-2023 End: 08-04-2023 Office outpatient visit 15 minutes Marta Puente MD [facility] Comment on above: Mass of thyroid nadir on (Primary Dx); Hyperthyroidism (CMS/HCC) Start: 07-29-2023 ambulatory Nancy BARRIENTOS [facility] ity:[facility] Start: 07-24-2023 End: 07-24-2023 ambulatory MD Paul Crook Facility:[facility] Start: 07-24-2023 End: 07-24-2023 Patient encounter procedure Paul Crook [facility] Start: 07-18-2023 End: 07-18-2023 ambulatory Nancy BARRIENTOS Facility: [facility] Start: 07-18-2023 End: 07-18-2023 Patient encounter procedure Nancy BARRIENTOS [facility] Start: 07-18-2023 End: 07-18-2023 ambulatory MD Paul Crook [place] Start: 07-18-2023 End: 07-18-2023 Patient encounter procedure Paul Kali [place] Start: 07-14-2023 End: 07-14-2023 ambulatory MD Ruben Barrientos Work Phone: [facility] Work Phone: Start: 07-14-2023 End: 07-14-2023 Departed Referred MD Ruben Barrientos Work Phone: [facility] Start: 07-08-2023 End: 10-07-2023 ambulatory MD Paul Crook [place] Start: 07-08-2023 End: 10-07-2023 Recurring Paul Crook [place] Start: 07-04-2023 End: 07-04-2023 ambulatory MARTA PUENTE Not Available Start: 06-27-2023 ambulatory MD Paul Oseguera lity:[facility] Start: 06-27-2023 End: 06-27-2023 ambulatory MD Paul Crook [place] Start: 06-27-2023 End: 06-27-2023 Patient encounter procedure Paul Crook [place] Start: 06-24-2023 End: 06-24-2023 ambulatory MD Paul Crook Facility:[facility] Start: 06-24-2023 End: 06-24-2023 Patient encounter procedure Paul Crook [facility] Start: 06-21-2023 End: 06-21-2023 ambulatory Filiberto Cramer [place] Start: 06-21-2023 End: 06-21-2023 Patient encounter procedure Filiberto Cramer [place] Start: 06-20-2023 End: 06-20-2023 ambulatory Filiberto AngelitoJanie Henryey Facility: [facility] Start: 06-20-2023 End: 06-20-2023 Patient encounter procedure Filiberto Manuelpsey [facility] Start: 06-09-2023 End: 06-09-2023 ambulatory Narendranath Lakshmipathy [place] Start: 06-09-2023 End: 06-09-2023 Patient encounter procedure Narendranath Lakshmipathy [place] Start: 05-07-2023 End: 05-07-2023 ambulatory KRAIG PARK Not Available Start: 04-28-2023 ambulatory Anitra BARRIENTOS Facility: [facility] Start: 04-28-2023 End: 04-28-2023 ambulatory EBER CASTANEDA [place] Start: 04-28-2023 End: 04-28-2023 Patient encounter procedure EBER CASTANEDA [place] Start: 11-05-2022 End: 11-06-2022 ambulatory NARENDRANATH LAKSHMIPATHY . Facility: Start: 10-22-2022 End: 10-22-[address] DOCTOR ALEJANDRE Facility:[facility] Start: 10-01-2022 End: 10-02-2022 ambulatory ISAURA KELLY . Facility:[facility] Start: 08-27-2022 End: 08-27-2022 ambulatory Ric Tinoco Other [facility] Other Start: 08-27-2022 Telephone encounter Ric Tinoco [facility] Start: 06-11-2022 End: 06-12-[address] HERB RIVERO . Facility:[facility] Start: 05-28-2022 End: 12-06-[address] HERB RIVERO . Facility:[facility] Start: 03-05-2022 End: 03-06-[address] HERB RIVERO . Facility:[facility] Start: 12-28-2021 End: 12-28-2021 ambulatory Ric Tinoco Other [facility] Other Start: 12-28-2021 Office outpatient visit 15 minutes Ric Tinoco [facility] Start: 12-03-2021 End: 12-03-2021 Patient encounter procedure Kraig Park [place] Start: 11-08-2021 End: 11-09-[address] HERB RIVERO . Facility:[facility] Start: 07-13-2021 End: 10-11-2021 Patient encounter procedure Nancy BARRIENTOS [place] Start: 04-17-2021 Office outpatient visit 15 minutes Irc Alejandrina [facility] Start: 05-31-2020 End: 05-31-2020 Emergency department patient visit KATHY [facility] Start: 05-31-2020 End: 05-31-2020 Emergency department patient visit Kathy [facility] Work Phone: [facility] Comment on above: Chest wall pain (Brunilda michelet Dx) Start: 12-30-2018 End: 01-07-2019 Patient encounter procedure PROVIDER UNKNOWN Facility:[facility] Procedures Date Procedure Procedure Detail [...] anterior approach Nancy BARRIENTOS Comment on above: [facility] Start: 06-19-2018 Removal of sebaceous cyst Nancy BARRIENTOS Comment on above: Right inner thigh Start: 06-23-2006 Augmentation mammoplasty Nancy BARRIENTOS H/O: hysterectomy S/P laparoscop ic hysterectomy MD Ruben Barrientos Work Phone: laparoscopy 4 Nancy NAYLA OWN Comment on above: 2014 Dr. Redd- endo metriocliff laparoscopy 5 Nancy NAYLA OWN Comment on above: 2014 Dr. Golden endo metriocliff lumbar microdisectomy 5 Rex BARRIENTOS Comment on above: 10/2017 Dr. Barnes @ [facility] lumbar microdisectomy 6 Rex BARRIENTOS Comment on above: 10/2017 Dr. Barnes @ [facility] TVH 6 Nancy CHIN WN Comment on above: per Dr. Glez 8 wisdom teeth extracted Ruben BARRIENTOS Plan of Treatment Date Care Activity Detail Author Start: 05-31-2026 Screening for malign ant neoplasm of cervix [facility] Start: 08-04-2023 End: 08-04-2023 Patient encounter procedure 08/04/2023 11:20 AM EST Office Visit [facility] [address] [facility] [address] [place] [address] Marta Puente MD [address] [facility] [address] [place] [address] Arrived [facility] Comment on above: Arrived Start: 02-21-2023 Influenza vaccination Influenza Vacc ine (#1) [facility] Start: 02-22-2020 Influenza vaccination Flu vaccine (# 1) [facility] [place] Start: 2005 Screening for malign ant neoplasm of cervix Pap Smear [facility] EKG 12 Lead EKG 12 Lead ECG STAT 05/31/2020 4:[address] [facility] [place], [place] Immunizations Immunization Date Immunization Notes Care Provider Joey jimenez 10-28-2020 COVID-19, mRNA, LNP-S, PF, 30 mcg/0.3 mL dose; Translations: [Pfizer-BioNTech COVID-19 Vaccine] Nancy BARRIENTOS [place] Comment on above: Reason for Medicatio n: Prophylaxis 10-07-2020 COVID-19, mRNA, LNP-S, PF, 30 mcg/0.3 mL dose; Translations: [Pfizer-BioNTech COVID-19 Vaccine] Nancy BARRIENTOS [place] Comment on above: Reason for Medicatio n: Prophylaxis 04-15-2020 influenza, injectable, quadrivalent, contains preservative Nancy BARRIENTOS [place] 04-15-2020 influenza virus vaccine, unspecified formulation Marta Puente MD Work Phone: [facility] 03-23-2018 influenza virus vaccine, unspecified formulation Nancy BARRIENTOS [place] 03-10-2013 tetanus toxoid, reduced diphtheria toxoid, and acellular pertussis vaccine, adsorbed Nancy BARRIENTOS [place] Comment on above: Reason for Medicatio n: Other (see comment) 10-13-2007 tetanus toxoid, reduced diphtheria toxoid, and acellular pertussis vaccine, adsorbed Filiberto Cramer [facility] 10-24-1999 hepatitis A and hepatitis B vaccine Filiberto Cramer [facility] 01-25-1998 measles, mumps and rubella virus vaccine Filiberto Cramer [facility] NEGATED: Highlighted row has not occurred!07-18-2023 influenza virus vaccine, unspecified formulation Nancy BARRIENTOS [facility] NEGATED: Highlighted row has not occurred!06-20-2023 influenza virus vaccine, unspecified formulation Filiberto Cramer [facility] Payers Date Payer Category Payer Self-pay [id number] 2022 Medicaid [facility] [employer] [employer] [place] [id number] 2022-Present [address] [place] [address] [id number] 2022 Medicaid [id number] 2006 Private Health Insurance [id number] 1984 Unknown [id number] 2.16.840.1.121012.3.579.2.6 47 1984 Unknown [id number] 2.16.840.1.038126.3.579.2.1 74 1984 Unknown [id number] 2.16.840.1.729984.3.579.2.5 93 1984 Unknown [id number] 2.16.840.1.825838.3.579.2.5 93 1984 Unknown [id number] 2.16.840.1.292649.3.579.2.5 93 1984 Unknown [id number] 2.16.840.1.221245.3.579.2.5 93 1984 Unknown [id number] 2.16.840.1.738758.3.579.2.5 93 1984 Unknown [id number] 2.16.840.1.355124.3.579.2.5 93 1984 Unknown [id number] 2.16.840.1.630395.3.579.2.5 93 1984 Unknown [id number] 2.16.840.1.428055.3.579.2.1 259 1984 Unknown [id number] 2.16.840.1.448217.3.579.2.1 259 1984 Unknown [id number] 2.16.840.1.869701.3.579.2.1 259 1984 Unknown [id number] 2.16.840.1.485509.3.579.2.1 259 1984 Unknown [id number] 2.16.840.1.690162.3.579.2.7 27 1984 Unknown [id number] 2.16.840.1.203623.3.579.2.7 27 1984 Unknown [id number] 2.16.840.1.690687.3.579.2.7 27 1984 Unknown [id number] 2.16.840.1.210590.3.579.2.7 27 1984 Unknown [id number] 2.16.840.1.747642.3.579.2.7 27 1984 Unknown [id number] 2.16.840.1.692273.3.579.2.7 27 1984 Unknown [id number] 2.16.840.1.885417.3.579.2.7 27 1984 Unknown [id number] 2.16.840.1.813804.3.579.2.7 27 1984 Unknown [id number] 2.16.840.1.217321.3.579.2.7 27 1984 Unknown [id number] 2.16.840.1.597487.3.579.2.7 27 1984 Unknown [id number] 2.16.840.1.749256.3.579.2.7 27 1984 Unknown [id number] 2.16.840.1.805413.3.579.2.7 27 1984 Unknown [id number] 27 1984 Unknown [id number] 27 1984 Unknown [id number] 27 1984 Unknown [id number] 27 1984 Unknown [id number] 27 1984 Unknown [id number] 27 1959 Private Health Insurance [id number] Unknown [id number] 31 Social History Date Type Detail Facility Start: 05-31-2020 End: 11-12-2023 Tobacco smoking status OHIS Never smoker [place] Start: 05-31-2020 End: 05-06-2023 Tobacco use and exposure Never used [place] Sex Assigned At Not on file [place] Exposure to SARS-CoV -2 (event) Not sure [place] Tobacco smoking status Never [facility] Start: 07-03-2023 End: 07-04-2023 Sex Assigned At Female [employer] Other Start: 1985 Sex Assigned At Female [facility] Start: 07-31-2023 End: 08-04-2023 Alcohol intake [...] Gender identity Identifies as female gender (finding) [facility] Start: 05-06-2023 Sexual orientation Heterosexual (finding) [facility] Medical Equipment Procedure Code Equipment Code Equipment Origin al Text Equipment Identifier Dates Anterior lumbar interbody fusion (ALIF) STRATOFUSE DBM [id number] FDA Start: 12-06-2019 Anterior lumbar interbody fusion (ALIF) Orthopaedic bone screw, non-bioabsorbable, non-sterile +[id number] FDA Start: 12-06-2019 Anterior lumbar interbody fusion (ALIF) Orthopaedic bone screw, non-bioabsorbable, non-sterile +[id number] FDA Start: 12-06-2019 Anterior lumbar interbody fusion (ALIF) Bone-screw internal spinal fixation system, non-sterile +[id number] FDA Start: 12-06-2019 Anterior lumbar interbody fusion (ALIF) Bone-screw internal spinal fixation system, non-sterile +[id number] FDA Start: 12-06-2019 Anterior lumbar interbody fusion (ALIF) Spinal fusion graft kit ()[id number] FDA Start: 12-06-2019 Anterior lumbar interbody fusion (ALIF) Spinal bone screw, non-bioabsorbable ()[id number] FDA Start: 12-06-2019 Anterior lumbar interbody fusion (ALIF) Metallic spinal fusion cage, non-sterile ()[id number] FDA Start: 12-06-2019 Anterior lumbar interbody fusion (ALIF) Bone-screw internal spinal fixation system, non-sterile +[id number] FDA Start: 12-06-2019 Functional Status Date Assessment Result Facility 11-12-2023 Functional Status N/A [facility] 10-07-2023 Functional Status N/A [facility] 07-24-2023 Functional Status N/A [facility] 07-18-2023 Functional Status N/A [facility] [place] 06-24-2023 Functional Status N/A [facility] [place] 06-20-2023 Functional Status N/A [facility] Clinical Notes 04-17-2021 to 10-21-2023 LaboratoryHidenis Puente MD - 08/04/2023 11:20 AM ESTLaboratoryRadiologyLaboratoryLaboratoryLaboratory Note Date & Type Note Facility 10-21-2023 Evaluation + Plan note Diagnostic Tests PendingT3 Free 10/21/23 Future Scheduled TestsLab Miscellaneous-LC 07/24/23 [place] 10-07-2023 Hospital Discharge instructions Patient Education 10/07/2023 [...] Treatment for this condition includes: Antibiotic medicine. Luxl-mdj-ioyvpap medicines to treat discomfort. Drinking enough water [...] Follow these instructions at home: Medicines Take hjjk-tpx-xwenxcw and prescription medicines only as told by [...] provider. Document Revised: 01/19/2021 Document Reviewed: 01/19/2021 Cash Check Card Patient Education 2022 [employer]. Follow Up Care 10/07/2023 07:28:28 With:JUAN LUIS REES, SAMIR [place] Address: When: only if needed [facility] [place] 08-04-2023 History of Present illness Narrative Subjective [...] Age of Onset Breast cancer Maternal Grandmother Greri Cancer Maternal Grandmother Gerri Colon cancer Maternal [...] W IMAGING GUIDANCE 07/14/2023 thyroid FNA HYSTERECTOMY LAVH, BSO-2018 OTHER SURGICAL HISTORY Breast implant replacement [...] per Dr Jonas documented in this encounter [facility] 07-24-2023 Evaluation + Plan note Future Scheduled TestsLab Miscellaneous-LC 2/1/24Echo Transthoracic Complete 07/24/23 [facility] [place] 07-24-2023 Evaluation + Plan note Future Scheduled TestsLab Miscellaneous-LC 07/24/23 [place] 07-18-2023 Evaluation + Plan note Diagnostic Tests PendingT3 Reverse, Serum 07/18/23Thyroid Perox.tpo Ab 07/18/23TgAb+Thyroglobulin,NIGEL or KELVIN 07/18/23 [place] 07-18-2023 Hospital Discharge instructions Patient Education 07/18/2023 [...] surgery. Follow these instructions at home: Take ilgh-ulp-xduwnfj and prescription medicines only as told by [...] condition. Where to find more information [employer] [place] of Diabetes and Digestive and Kidney Diseases: [...] provider. Document Revised: 08/02/2022 Document Reviewed: 08/02/2022 [employer] Patient Education 2022 [employer]. Follow Up Care 07/18/2023 07:34:13 With:Nancy BARRIENTOS MD, FAM Address: When: only if needed [facility] [place] 06-21-2023 Evaluation + Plan note Diagnostic Tests PendingT3 Free 06/21/23 Future Scheduled TestsCBC w/ Auto Diff 06/20/23Comprehensive Metabolic Panel 06/20/23Free T4 06/20/23 [place] 06-20-2023 Hospital Discharge instructions Patient Education 06/20/2023 [...] few weeks. Home care treatment may include: Lxln-zkv-lszgebk pain relievers. A warm, moist cloth placed over the ear. Severe cases may require a procedure to insert tubes in the ears (tympanostomy tubes) to drain the fluid. Follow these instructions at home: Take bnzd-fff-xgbpyeh and prescription medicines only as told by [...] provider. Document Revised: 10/04/2021 Document Reviewed: 10/04/2021 Cash Check Card Patient Education 2022 [employer]. 06/20/2023 19:03:16 Thyroid Nodule Thyroid Nodule A [...] in your thyroid nodule or nodules. Take pbmf-iax-opbodwr and prescription medicines only as told by [...] provider. Document Revised: 04/22/2022 Document Reviewed: 04/22/2022 Cash Check Card Patient Education 2022 [employer]. Follow Up Care 06/20/2023 07:23:01 With:JUAN LUIS REES, [facility] Address: [address] [place] [phone] When: Unknown [facility] 06-20-2023 Evaluation + Plan note Future Scheduled TestsT4 Total 06/20/23CBC w/ Auto Diff 06/20/23Comprehensive Metabolic Panel 06/20/23T3 Free 06/20/23T3 Uptake 06/20/23Thyroid Stimulating Hormone 06/20/23Free T4 06/20/23 [facility] 10-01-2022 Note CONSULTATION CONSULTATION [...] our patients to inform us about any zhqi-txn-rwhdvsf medications or herbal remedies/nutritional supplements/alternative remedies. 2. [...] options with their primary care provider. [facility] 06-11-2022 Note CONSULTATION CONSULTATION DATE: 06/11/2022 [...] and concurs. CC: Nancy Barrientos M.D. [facility] 03-05-2022 Note PAIN MANAGEMENT CONS ULTATION [...] along this region. CC: Dr. Barrientos [facility] 12-28-2021 Evaluation note Encounter Date Diagnosis [...] follow her up on an as-needed basis [employer] Other 06-13-2022 Evaluation + Plan note Diagnostic Tests Pending * Insulin Level Total 12/03/21 * T3 Free 12/03/21 * FSH Level 12/03/21 Future Scheduled Tests Laboratory* [place]/13/21 [place]05-19-2022 NoteCONSULTATION CONSULTATION DATE: 11/08/2021 This is a [...] does plan on seeing Dr. Damon in [facility]. Activities that aggravate her neck are [...] of care and would like to proceed. [facility] Signed and Approved by: ISAURA KELLY . 11/12/2021 15:05:00[facility]01-21-2022 Evaluation + Plan note Future Scheduled Tests Laboratory* [place]/13/21 [place]10-26-2021 Evaluation note* Encounter Date Diagnosis Assessment Notes Treatment Notes Treatment Clinical Notes Mar, Spondylolisthesis at L5-S1 level (ICD-10 - M43.17) I answered a number of questions for the patient. I think a transforaminal injection may be beneficial. I also believe that she could potentially benefit from a dorsal column stimulator. She is seeing a another neurologist at [facility] and I am interested in what medication changes are made. I will see the patient again in 3 months and review this with her. I looked at the picture of the spine today she has good bone formation and her CORRECTION hardware is intact. Because of the persistent [...] region with neurogenic claudication (ICD-10 - M48.062) [email or web address] Other evaluation + Plan note Future Appointments Appointment Date:06/27/2023 07:30:00 AM Scheduled Provider: Location:.[facility] Appointment Type:US Thyroid/Neck/Chest () Appointment Date:06/27/2023 08:00:00 AM Scheduled [facility] Type:CV EKG () Appointment Date:07/29/2023 12:40:00 PM Scheduled Provider:Nancy BARRIENTOS MD Location:[facility] Appointment Type:FM Open Future Scheduled Tests Laboratory* UA With Cult Reflex 06/24/23 * CBC w/ Auto Diff 06/20/23 * Comprehensive Metabolic Panel 06/20/23 * Lipid Panel 06/24/23 * Free T4 06/20/23 Radiology* US Thyroid 06/27/23 [facility] [place] Evaluation + Plan note Future Appointments Appointment Date:07/29/2023 12:40:00 PM Scheduled Provider:Nancy BARRIENTOS MD Location:[facility] Appointment Type: Open Future Scheduled Tests Laboratory* UA With Cult Reflex 06/24/23 * CBC w/ Auto Diff 06/20/23 * Comprehensive Metabolic Panel 06/20/23 * Lipid Panel 06/24/23 * Free T4 06/20/23 Radiology* US FNA w/ Guidance, first lesion 06/27/23 * NM Thyroid Imaging w/ Uptk Multiple 06/27/23 [place] Future Appointments Appointment Date:09/11/2023 08:00:00 AM Scheduled Provider: [facility] Type:CV Echo (FT) Diagnostic Tests Pending * T3 Free 09/10/23 * Thyrotropin Receptor Antibody, Serum 09/10/23 Future Scheduled Tests Laboratory* Lab Miscellaneous-LC 07/24/23 Radiology* Echo Transthoracic Complete 09/11/23 [place] note[place] InformationNort [employer] Other evaluation noteNo assessment information available [facility] Work Phone: Evaluation note* Diagnosis Mass [...] ALIF-Doctor Alejandrina Hospitalization History see surgical hx [facility] Other Hospital course Narrative No data available for this section [facility] No data available for this section [facility] No data available for this section [place] Summary Purpose Family History No Family History Records Found Relationship Condition Age at Onset Recorded Date/T rody Not Specified Healthy female adult Unknown father Osteoarthritis Unknown Degeneration of intervertebral disc Unkno wn Advance Directives No Advanced Directives Records FoundDocuments on File Type Date Recorded 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 * Chest Pain: Musculoskeletal (Maltese) documented in this encounter Assessments Diagnosis Chest wall pain Painful respiration Reason for Referral Reason Evaluate and Treat C onsider for Dorsal Column Stimulator Diagnosis 1 Spondylolisthesis at L5-S1 level (M43.17) Referral Organization [facility] urosurgery Referring Provider First Name Ric Referring Provider Last Name Alejandrina Referring Provider Specialty Neurologica l Surgery Referred Organization Unknown Facility Referred Provider Mansoor Summers Referred Provider Specialty Pain Medicin e Referral Priority Routine Additional Source Comments INFORMATION SOURCE (unrecogn ized section and content) DATE CREATED AUTHOR 01/14/2020 [facility] DATE CREATED AUTHOR AUTHOR'S ORGANIZ ATION 06/01/2020 [facility] DATE CREATED AUTHOR AUTHOR'S ORGANIZ ATION 11/06/2022 [facility] DATE CREATED AUTHOR AUTHOR'S ORGANIZ ATION 08/01/2023 [facility] DATE CREATED AUTHOR AUTHOR'S ORGANIZ ATION 10/22/2023 [facility] EPIC DATE CREATED AUTHOR AUTHOR'S ORGANIZ ATION 01/17/2024 [facility] Reason for Visit (unrecogniz ed [...] July 14, 2023 End: July 14, 2023 Key Operator Relationship Specialty Start Date End Date Nancy Barrientos MD [address] [place] [id number] PCP - General 05/07/23 Key Operator Relationship Specialty Start Date End Date Nancy Barrientos MD [address] [place] [id number] PCP - General 05/07/23 Goals (unrecognized section [...] BE BASED ON THE PRIMARY CLINICAL RECORDS. [facility]. provides no warranty or guarantee of the accuracy or completeness of information in this document.
[2024-02-10 08:02] VITALS: BP 116/78; PULSE 66; TEMP 36.3; O2SAT 100
--- NOTE | 2024-02-10 08:26 | PC.NURSE ---
Procedure cancelled by Dr. Thompson due to patient not having any pain at present time. Will reschedule
== END 2024-02-10 08:27 | disposition home or self-care (01) ==
LOC: SURGOUT 07:46
PROVIDERS: Visit Provider Anesthesiology Pain Medicine
PROC: (CPT 64490; principal; 2024-02-10 08:50)
DX: Z53.8 Procedure and treatment not carried out for other reasons (principal)
CPT/HCPCS: 64490

== ENCOUNTER 2024-02-11 06:47 | Outpatient (OUT) | payer MEDICAID, SELFPAY ==
--- OUTSIDE RECORDS SUMMARY | 2024-02-11 06:49 | XMS_ITS | CCD ---
Author Organization [facility] Care Team Providers Care Broach Setter Name Role Phone UNKNOWN, PROVIDER Admitting Unavailable [...] Unavailable Nancy Barrientos MD Primary Care Provider [phone] Nancy BARRIENTOS Primary Care Physician [phone] MARTA PUENTE Attending Unavailable PAUL CROOK Referring [...] Propensity to adverse reactions (disorder) 9 [facility] Repository (18 sources) Adhesive Tape; Translations: [Tape] Drug allergy Eruption of skin (disorder) [facility] (20 sources) Latex; Translations: [Latex] Drug allergy 5 Rash [facility] Other (3 sources) adhesive bandages Propensity to adverse reactions rash [facility] Other (1 source) Adhesive agent Drug allergy (disorder) 6 [facility] Repository (1 source) Adhesive agent Drug allergy (disorder) 2 [facility] Repository (1 source) Adhesive Tape Drug allergy (disorder) 0 [facility] Repository (3 sources) Wound Dressing Adhesive Drug [...] nasal route once daily Flonase 0.05 mg/inh [place] 2 spray(s), Nasal, Daily for 7 day(s), [...] BID, # 180 tab(s), Refills(s) 1, Pharmacy: [facility], 168, cm, 07/11/20 8:27:00 EST, Height/Length Dosing, 64.1, kg, 07/11/20 8:27:00 EST, Weight Dosing Start Date: 08/22/20 Status: Ordered loratadine 10 mg oral tablet (3 sources) Start: 02-23-2020 take 1 tablet by mouth once daily loratadine 10 mg Tab 10 mg = 1 tab(s), Oral, Daily, # 90 tab(s), Refills(s) 1, Pharmacy: [facility], 168, cm, 02/23/20 10:40:00 EDT, Height/Length Dosing, 65, kg, 02/23/20 10:40:00 EDT, Weight Dosing Start Date: 02/23/20 Status: Ordered Start: 11-30-2019 take 1 capsule by [facility] once daily loratadine (CLARITIN) 10 MG [...] 05/26/20 Status: Ordered take 1 tablet by jdaen every twenty-four hours in the morning oxybutynin [...] every four to six hours Hydrocodone-Acetami nophen ([place]) 5-325 mg tablet Discontinued 1 TAB PO EVERY 4-6 HOURS September 12, 2017 November 30, 2019 9:37am Start: 09-04-2017 End: 09-12-2017 take 1 tablet by mouth once daily at bedtime Hydrocodone-Acetaminophen ([place]) 5-325 mg Tablet Discontinued 1 TAB PO [...] DO Transcribed by: YAMINI Technologist: KYS Normal [facility] Consenton 11-12-2023 Consent [id number]#1.00TIFF Normal [facility] Consent [id number]#1.00TIFF Normal [facility] Medicine Office/Clini c Noteon 11-12-2023 Family Medicine [...] with voice recognition artificial intelligence software, specifically [employer], [employer] and or [employer]. Substitutions may have occurred due to the inherent limitations of voice recognition and artificial intelligence software. Documentation services were performed after patient or guardian consented to allow [employer] to record this visit. DEX helicopter specialist Perlita Dominguez and provider reviewed before [...] per year, 06/24/2023 Employment/School Employed, Work/School description: [employer]., 02/01/2019 Home/Environment Lives with Children, Spouse., 02/01/2019 Substance Abuse - Denies Substance Abuse, 12/11/2012 Household substance abuse concerns: No., 06/24/2023 Tobacco - Denies Tobacco Use, 12/11/2012 Never (less than 100 in lifetime) Tobacco Use:. Never Smokeless Tobacco Use:. Household tobacco concerns: No., 11/12/2023 Family History Depression: Mother. Hepatitis C: Sister. Immunizations Vaccine Date Status Comments influenza viru (more content not included)... [facility] Comment on above: Result Comment: Elec tronically Signed By: Paul Crook MD\.br\Date and Time Signed: 11/12/23 14:07 EDT\.br\Electronically Co-Signed By: Tyrone Garcia\.br\Date and Time Co-Signed: 11/12/23 13:40 EDT T3 Freeon 10-22-2023 Free T3 [Mass/Vol] 2.9 pg/mL Invalid Interpretation Code 2.0-4.4 [facility] Comment on above: Result Comment: Perf ormed at: [facility] [id number] PhD Mahnaz Conklin Performed By: #### 2 188888, [id number], [id number] ####[facility] [address] [place] [address] CHEMISTRYOrdered By: SYSTEM SYSTEM on 10-21-2023 Free T4 [Mass/Vol] 0.65 ng/dL Normal 0.58 - 1.64 ng/dL Remisol Chem TSH Qn 4.41 m[IU]/L Normal 0.34 - 5.60 mcIU/mL Remisol Chem Consent for Treatmenton 09-23 Consent for Treatment [id number]#1.00TIFF Normal [facility] Free T4on 10-21-2023 Free T4 [Mass/Vol] 0.65 ng/dL Normal 0.58-1.64 [facility] Comment on above: Performed By: #### 2 006423, [id number], 6655969 ####[facility] [address] [place] [address] Physician Orderon 10-21-2023 Physician Order [id number]#1.00TIFF Normal [facility] TSHon 10-21-2023 TSH Qn 4.41 m[IU]/L Normal 0.34-5.60 [facility] Comment on above: Performed By: #### 2 183501, [id number], 5523039 ####[facility] [address] [place] [address] Ambulatory Visit Summaryon 0 10-07-2023 Ambulatory Visit [...] urinary discomfort for bladder symptoms Pickup at [facility]302 Unchanged baclofen (baclofen 10 mg Tab) See [...] Pharmacy Information [facility] 5309: [address] [phone] Allergies Latex Tape (Rash) Problems Ongoing - [...] have a (more content not included)... Normal [facility] Family Medicine Office/Clini c Noteon [...] two weeks, she has not utilized any yseb-hvy-flrahqg or old antibiotics, nor has she utilized [...] week. She is seeing Dr. Jonas in [place] for her thyroid. She has been trying [...] Urnls Dip Stick Auto w/o Microscopy POC 76899 2. Thyroiditis, subacute (E06.1: Subacute thyroiditis) Continue following with Dr. Jonas in [place] for management of the methimazole. 3. Lumbar [...] with voice recognition artificial intelligence software, specifically [employer], [employer] and or [employer]. Substitutions may have occurred due to the inherent limitations of voice recognition and artificial intelligence software. Follow-up With When Contact Information Nancy BARRIENTOS MD, [facility] Only if needed Additional Instructions: Patient Education [...] Anterior lumba (more content not included)... Normal [facility] Comment on above: Result Comment: [...] this condition includes: ? Antibiotic medicine. ? Qqne-zma-gkoqtmm medicines to treat discomfort. ? Drinking enough [...] these instructions at home: Medicines ? Take pcwc-czi-jtftxjl and prescription medicines only as told by [...] Document Revie (more content not included)... Normal [facility] T3 Freeon 09-13-2023 Free T3 [Mass/Vol] 1.5 pg/mL Low 2.0-4.4 [facility] Comment on above: Result Comment: Perf ormed at: [facility] [address] [place], [place] [id number] PhD Mahnaz Conklin Performed By: #### 2 619388, [id number], 1328758, 7396181, 5486485 ####[facility] [address] [place] [address] Thyrotropin Receptor Antibod y, Serumon 09-13-2023 TSH receptor Ab Qn (S) <1.10 Invalid Interpretation Code 0.00-1.75 [facility] Comment on above: Result Comment: Perf ormed at: [facility] [address] [id number] MD Enrico Dean Performed By: #### 2 916072, [id number], 5907014, 4030402, 1654581 ####[facility] [address] [place] [address] CHEMISTRYOrdered By: SYSTEM SYSTEM on 09-10-2023 Albumin [...] for Treatmenton 08-22 Consent for Treatment [id number]#1.00TIFF Normal [facility] Free T4on 09-10-2023 Free T4 [Mass/Vol] ng/dL Low 0.58-1.64 [facility] Comment on above: Performed By: #### 2 279994, [id number], 8677114, 0670556, 1931359 ####[facility] [address] [place] [address] Hep Func Panelon 09-10-2023 Albumin [Mass/Vol] 4.2 g/dL Normal 3.3-5.0 [facility] Comment on above: Performed By: #### 2 356197, [id number], 6226623, 6981070, 0616014 ####[facility] [address] [place] [address] Albumin/Globulin (S) [Mass conc ratio] 1.4 Normal 1.1-2.2 [facility] Comment on above: Performed By: #### 2 208704, [id number], 0145493, 6701820, 3120851 ####[facility] [address] [place] [address] ALP [Catalytic activity/Vol] 66 Int._Unit/L Normal 21-98 [facility] Comment on above: Performed By: #### 2 631226, [id number], 6680068, 9348161, 5714034 ####[facility] [address] [place] [address] ALT No additional P-5'-P [Catalytic activity/Vol] 14 Int._Unit/L Normal 6-46 [facility] Comment on above: Performed By: #### 2 134105, 9304101996, 4123185, 3455683, 0430596 ####[facility] [address] [place] [address] AST [Catalytic activity/Vol] 22 Int._Unit/L Normal 5-43 [facility] Comment on above: Performed By: #### 2 512716, 6356543307, 6302434, 9751543, 3173077 ####[facility] [address] [place] [address] Bilirubin [Mass/Vol] 0.5 mg/dL Normal 0.0-1.1 [facility] Comment on above: Performed By: #### 2 379467, 9821657232, 2822426, 8343113, 6033683 ####[place] [address] Bilirubin.direct [Mass/Vol] 0.1 mg/dL Normal 0.0-0.4 [facility] Comment on above: Performed By: #### 2 204862, 8559575814, 8727261, 0080930, 0723113 ####[facility] [address] [place] [address] Bilirubin.indirect [Mass or moles/Vol] 0.4 mg/dL Normal 0.1-0.9 [facility] Comment on above: Performed By: #### 2 520217, 5979052943, 7310166, 5081390, 3663775 ####[facility] [address] [place] [address] Globulin (S) [Mass/Vol] 3.0 g/dL Normal 1.4-4.0 [facility] Comment on above: Performed By: #### 2 477671, 7248547903, 3433057, 8872920, 9639741 ####[place] [address] [place] [address] Protein [Mass/Vol] 7.2 g/dL Normal 6.0-7.8 [facility] Comment on above: Performed By: #### 2 449574, 0036322074, 5544366, 6779807, 4484220 ####[facility] [address] [place] [address] Physician Orderon 09-10-2023 Physician Order [id number]#1.00TIFF Normal [facility] TSHon 09-10-2023 TSH Qn 68.80 m[IU]/L High 0.34-5.60 [facility] Comment on above: Performed By: #### 2 331759, 7477387939, 2354728, 1620287, 3119682 ####[facility] [address] [place] [address] Consultation Noteon 08-12-19 Consultation Note [id number]#1.00TIFF [facility] Insurance Correspondenceon 0 08-05-2023 Insurance Correspondence [id number]#1.00TIFF [facility] Consultation Noteon 08-04-19 Consultation Note [id number]#1.00TIFF [facility] .Thyroglobulin by RIAon 07-24 Thyroglobulin [Mass/Vol] 159 ng/mL High [facility] Comment on above: Result Comment: Conf irmed by dilution. This test was developed and its performance characteristics determined by [employer]. It has not been cleared or approved [...] quantitation limit is 2.0 ng/mL. Performed at: [email or web address] [address] [place] [address] [id number] MD Yadiel Cornell Performed By: #### 7 [id number], 5832924, 47495886, 6846998, 415840466, 30758085 ####[facility] [address] [place] [address] T3 Reverseon 08-02-2023 T3.reverse [Mass/Vol] 31.2 ng/dL High 9.2-24.1 Fis her [facility] Comment on above: Result Comment: This test was developed and its performance characteristics determined by [employer]. It has not been cleared or approved by the Food and Drug Administration. Performed at: [place] [address] [place], [place] [id number] MD Enrico Dean Performed By: #### 7 [id number], 3001672, 41324420, 7017848, 427190072, 89792991 ####[facility] [address] [place] [address] TgAb+Thyroglobulinon 024 Thyroglobulin Ab Qn 2.7 International_Unit /mL High 0.0-0.9 [facility] Comment on above: Result Comment: Thyr oglobulin Antibody measured by Nakul Leslie Methodology Performed at: [address] [id number] PhD Mahnaz Conklin Performed By: #### 7 78663461, 2947913, 54910625, 7874716, 411434266, 95885322 ####[facility] [address] [place] [address] Thyroid Perox.tpo Abon 08-02 TPO Ab Qn [IU]/mL Invalid Interpretation Code 0-34 [facility] Comment on above: Result Comment: Perf ormed at: [address] [id number] PhD Mahnaz Conklin Performed By: #### 7 [id number], 0058287, 82423855, 9584515, 203075367, 58002555 ####[place] [address] [place] [address] Family Medicine Office/Clini c Noteon 07-29-2023 Family [...] and imagi (more content not included)... Normal [facility] Comment on above: Result Comment: Elec tronically Signed By: Paul Crook MD\.br\Date and Time Signed: 07/29/23 18:15 EST\.br\Electronically Co-Signed By: Jaja Alex\.br\Date and Time Co-Signed: 07/24/23 18:17 EST Interdisciplinary Note - Soc ial Workeron 07-28-2023 Interdisciplinary Note - Director Search Marketing Strategies This SW made a tc to patient [...] needs arise. SW will remain available. Normal [facility] Ambulatory Visit Summaryon 0 07-24-2023 Ambulatory [...] hormone level, Print Label By Order Location, [id number]\.br\ Echo Transthoracic Complete, 07/24/23, Routine, Order for future visit, Transport Mode: Ambulatory, Reason: Other (please specify), Reason: murmur, Heart murmur, pp_set_radiology_ subspecialty, [facility], [facility] [place]\.br\ Medications\.br\ What How Much When Instructions\.br\ New propranolol (propranolol 10 mg Tab) 1 Tablets By Mouth Once Pickup at [facility] 4126\.br\ Unchanged baclofen (baclofen 10 mg Tab) See [...] Pharmacy Information\.br\ [facility] 5309: [address] [phone]\.br\ Allergies\.br\ Latex\.br\ Tape (Rash)\.br\ Problems\.br\ Ongoing - [...] for choosing us for your care.\.br\ \.br\ [facility] Ambulatory Visit Summaryon 0 07-18-2023 Ambulatory [...] Appointments Follow Up with Nancy BARRIENTOS MD [facility] When: Only if needed Where: Medications What [...] You smoke (more content not included)... Normal [facility] CHEMISTRYOrdered By: SYSTEM SYSTEM on 07-18-2023 Free T4 [Mass/Vol] 2.22 ng/dL High 0.58 - 1.64 ng/dL Remisol Chem TSH Qn 0.01 m[IU]/L Low 0.34 - 5.60 mcIU/mL Remisol Chem Clipboard Summaryon 07-18-19 24 Clipboard Summary {30-vv-o7-2d-15-1c -38-3n-o0-9a-b9-6d -cb-25-c2-ac}XML Normal [facility] Consent for Treatmenton 06-24 Consent for Treatment [id number]#1.00TIFF Normal [facility] Family Medicine Office/Clini c Noteon 07-18-2023 [...] and had a biopsy on Friday at [facility], carried out by the radiology department interventional [...] Nonicteric sclera. Oropharynx pink and moist. Adequate marshall dentition. Anterior neck, there is a fullness [...] the pathology report on her phone from [facility] which indicates benign cellularity although admittedly may [...] Dysphagia, unspecified) (more content not included)... Normal [facility] Comment on above: Result Comment: Elec tronically Signed By: JUAN LUIS REES, Nancy\.br\Date and Time Signed: 07/18/23 19:02 EST Free T4on 07-18-2023 Free T4 [Mass/Vol] 2.22 ng/dL High 0.58-1.64 [facility] Comment on above: Performed By: #### 7 [id number], 2338831, 90737087, 3676464, 147535803, 74318405 #### [facility] [address] [place] [address] Patient Educationon 07-18-19 24 Patient Education Endocrinology [...] Follow these instructions at home: ? Take zegy-lmu-mrkoxbx and prescription medicines only as told by [...] Where to find more information ? National [place] of Diabetes and Digestive and Kidney Diseases: [...] as u (more content not included)... Normal [facility] TSHon 07-18-2023 TSH Qn 0.01 m[IU]/L Low 0.34-5.60 [facility] Comment on above: Performed By: #### 7 [id number], 9419095, 39064220, 3043812, 678927678, 09619417 #### [facility] [address] [place] [address] Mata 07-14-2023 L Specimen: [id number] Received: 07/15/23 Status: DENA Sifuentes Num: [id number] Spec Type: Cytology Subm Dr: MARTA PUENTE MD Tissues: A FNA SLIDES NOPATH (LT THYROID NOD) Procedures: Cyto Int and Re, PAPSTN/5 Age/ Patient Sex Location Account Attending Physician RoccoJessica Jonathon 37/F [facility] [id number] MARTA PUENTE MD SPEC NUM: [id number] RECD: 07/15/23 STATUS: DENA SIFUENTES NUM: [id number] KANCHAN: 07/14/23- SUBM DR: MARTA PUENTE MD ENTERED: 07/15/[address] [facility] DR: Neno Quiroz SPEC TYPE: Cytology DEPT: ROYER GAADRY ENTERED BY: [id number] RECV BY: [id number] ORDERED: Cyto Int and Re, PAPSTN/5 ORDERED: Cyto Int and Re, PAPSTN/5 Pathological Diagnosis Left thyroid mid lobe nodule, FNA cytology: - Adequate but slightly limited for assessment - The [place] system is category 2: Benign - A [...] BC Received: 07/15/23 Status: DENA Sifuentes Num: [id number] Spec Type: Cytology Subm Dr: MARTA PUENTE MD Tissues: A FNA SLIDES NOPATH (LT THYROID NOD) Procedures: Cyto Int and Re, PAPSTN/5 -- Patient: Jessica Griffiths [id number] (Continued) -- Specimen: [id number] Received: 07/15/23 (Continued) Signed (signatu re on file) Alfonso Correa MD 07/16/231122 -- Specimen: [id number] Received: 07/15/23 Status: DENA Sifuentes Num: [id number] Spec Type: Cytology Subm Dr: MARTA PUENTE MD Tissues: A FNA SLIDES NOPATH (LT THYROID NOD) Procedures: Cyto Int and Re, PAPSTN/5 -- Patient: Jessica Griffiths [id number] (Continued) -- Specimen: BC Received: 07/15/23 (Continued) CPT Codes 57031 -- -- Specimen: BC Received: 07/15/23 Status: DENA Sifuentes Num: [id number] Spec Type: Cytology Subm Dr: MARTA PUENTE MD Tissues: A FNA SLIDES NOPATH (LT THYROID NOD) Procedures: Cyto Int and Re, PAPSTN/5 -- Patient: Jessica Griffiths [id number] (Continued) -- Signed (signatu re on file) Alofnso Correa MD 07/16/23 1123 [facility] Thyroid Imaging w/ [facility] Angelito ortega 07-09-2023 [place] Thyroid Imaging w/ [facility] Multiple Exam Date/Time: [...] 203.5 Imaging Post Administration (hrs): 24 Normal [facility] CHEMISTRYOrdered By: SYSTEM SYSTEM on 07-08-2023 [...] for Treatmenton 06-23 Consent for Treatment [id number]#1.00TIFF Normal [facility] Lipid Panelon 07-08-2023 Cholesterol [Mass/Vol] 145 mg/dL Normal 120-200 [facility] Comment on above: Performed By: #### 2 748264 ####[facility] [address] [place] [address] Cholesterol in HDL [Mass/Vol] 62 mg/dL Invalid Interpretation Code [facility] Comment on above: Result Comment: '>= 60 LOW RISK' '<= 40 HIGH RISK' Performed By: #### 2 166151 ####[facility] [address] [place] [address] Cholesterol in LDL [Mass/Vol] 76 mg/dL Normal <=129 [facility] Comment on above: Performed By: #### 2 081977 ####[facility] [address] [place] [address] Cholesterol in VLDL [Mass/Vol] 10 mg/dL Normal 7-40 [facility] Comment on above: Performed By: #### 2 060402 ####[facility] [address] [place] [address] Triglyceride [Mass/Vol] 52 mg/dL Normal <=149 [facility] Comment on above: Performed By: #### 2 445870 ####[facility] [address] [place] [address] UA With Cult Reflexon 2023 Bacteria LM Ql (Urine sed) 1+ /HPF Abnormal Trace [facility] Comment on above: Performed By: #### 1 4598081 ####[facility] [address] [facility] [place] [address] Bilirubin Ql (U) Negative Normal Negative [facility] Comment on above: Performed By: #### 1 5042776 ####[address] [address] Clarity (U) CLEAR Normal Clear [facility] Comment on above: Performed By: #### 1 0640150 ####[address] [address] Color (U) YELLOW Normal Yellow [facility] Comment on above: Performed By: #### 1 3525566 ####[address] [address] Epithelial cells.squamous LM.HPF (Urine sed) [#/Area] /[HPF] Normal 0-2 [facility] Comment on above: Performed By: #### 1 4977613 ####[facility] [address] [place] [address] Glucose Test strip (U) [Mass/Vol] Negative Normal Negative [facility] Comment on above: Performed By: #### 1 5822606 ####[facility] [address] [place] [address] Hemoglobin Ql (U) Negative Normal Negative [facility] Comment on above: Performed By: #### 1 6791336 ####[facility] [address] [place] [address] Ketones (U) [Mass/Vol] TRACE Abnormal Negative [facility] Comment on above: Performed By: #### 1 4904789 ####[place] [address] [place] [address] [place].plasma/Lithiu m.RBC (Bld) [Mass ratio] 0-3 Normal 0-3 [facility] Comment on above: Performed By: #### 1 6856305 ####[facility] [address] [place] [address] Mucus Ql (Urine sed) 2+ Normal Fish er [facility] Comment on above: Performed By: #### 1 5159867 ####[address] [address] Nitrite Ql (U) Negative Normal Negative [facility] Comment on above: Performed By: #### 1 1413744 ####[address] [address] pH (U) 6.5 [pH] Invalid Interpretation Code 5.0-9.0 [facility] Comment on above: Performed By: #### 1 7741960 ####[address] [address] Protein (U) [Mass/Vol] Negative Normal Negative [facility] Comment on above: Performed By: #### 1 8422063 ####[address] [address] Specific gravity (U) [Rel density] 1.015 Invalid Interpretation Code 1.005-1.030 [facility] Comment on above: Performed By: #### 1 9763988 ####[address] [address] Type of Urine collection method Clean Catch Normal [facility] Comment on above: Performed By: #### 1 4462750 ####[address] [address] Urobilinogen Qn (U) 0.2 {Dylan'U}/dL Normal 0.0-1.0 [facility] Comment on above: Performed By: #### 1 2715606 ####[address] [address] WBC Auto Ql (U) Negative Normal Negative [facility] Comment on above: Performed By: #### 1 7472312 ####[address] [address] WBC LM.HPF (Urine sed) [#/Area] 0-5 Normal 0-5 [facility] Comment on above: Performed By: #### 1 6455047 ####[facility] [address] [place] [address] URINALYSISOrdered By: Jennifer morris on 07-08-2023 Bacteria [...] Interpretation Code Negative [facility] UA Auto SS [place].plasma/Lithiu m.RBC (Bld) [Mass ratio] 0-3 /HPF [...] [facility] UA Auto SS Urobilinogen Qn (U) 0.1881028 {Dylan'U}/dL Normal 0.0 - 1.0 EU/dL [facility] UA Auto SS WBC Auto Ql (U) Negative (07/08/23 7:42 AM) Normal Negative [facility] UA Auto SS WBC LM.HPF (Urine sed) [#/Area] 0-5 /HPF Normal 0-5/HPF [facility] UA Auto SS Insurance Correspondenceon 0 07-01-2023 Insurance Correspondence [id number]#1.00TIFF Normal [facility] Physician Referralon 024 Physician Referral [id number]#1.00TIFF Normal [facility] Consent for Treatmenton Consent for Treatment [id number]#1.00TIFF Normal [facility] US Thyroidon 06-27-2023 US Thyroid Exam [...] (Electronic Signature): 06/27/2023 11:42 am Signed by: Cassisu Ernst MD Transcribed by: YAMINI Technologist: FAISAL [...] with voice recognition artificial intelligence software, specifically [employer], [employer] and or [employer]. Substitutions may have occurred due to the inherent limitations of voice recognition and artificial intelligence software. Documentation services were performed after patient or guardian consented to allow [employer] to record this visit. D (more content not included)... Normal [facility] Comment on above: Result Comment: Elec tronically Signed By: Paul Crook MD\.br\Date and Time Signed: 06/24/23 18:25 EST\.br\Electronically Co-Signed By: Jaja Alex\.br\Date and Time Co-Signed: 06/24/23 18:04 EST T3 Freeon 06-22-2023 Free T3 [Mass/Vol] 4.2 pg/mL Invalid Interpretation Code 2.0-4.4 [facility] Comment on above: Result Comment: Perf ormed at: [facility] [address] [id number] PhD Mahnaz Conklin Performed By: #### 2 [id number], 0349536, 1850933, [id number] ####[address] [place] [address] Auto Diffon 06-21-2023 Basophils/100 WBC (Bld) 0.3 % Normal 0.0-2.0 [facility] Comment on above: Order Comment: Order Added by Jay Expert. Performed By: #### 1 [id number], 6982440, 5461756, 4522658, 0952593 #### [facility] [address] [place] [address] Basophils/Leukocytes Auto (Bld) [Pure # fraction] 0.0 E9/L Normal 0.0-0.2 [facility] Comment on above: Order Comment: Order Added by Discern Expert. Performed By: #### 1 3441146, 3283131, 2980017, 5920957, 5569886 #### [facility] [address] [place] [address] Eosinophils/100 WBC (Bld) 0.6 % Normal 0.0-8.0 [facility] Comment on above: Order Comment: Order Added by Jay Expert. Performed By: #### 1 5584213, 4449750, 5996967, 2116921, 7396035 #### [facility] [address] [place] [address]7597 Eosinophils/Leukocyte s Auto (Bld) [Pure # fraction] 0.0 E9/L Normal 0.0-0.5 [facility] Comment on above: Order Comment: Order Added by Jay Expert. Performed By: #### 1 9462414, 7962606, 1029735, 3880571, 3249944 #### [facility] [address] [place] [address] Lymphocytes/100 WBC (Bld) 20.6 % Normal 14.0-50.0 [facility] Comment on above: Order Comment: Order Added by Jay Expert. Performed By: #### 1 [id number], 9428136, 3195306, 6719707, 3429193 #### [facility] [address] [place] [address] Lymphocytes/Leukocyte s Auto (Bld) [Pure # fraction] 1.7 E9/L Normal 1.0-4.0 [facility] Comment on above: Order Comment: Order Added by Jay Expert. Performed By: #### 1 4649340, 4598530, 0245074, 4061260, 9097678 #### [facility] [address] [place] [address]227 Monocytes/100 WBC (Bld) 6.6 % Normal 4.0-14.0 [facility] Comment on above: Order Comment: Order Added by Discern Expert. Performed By: #### 1 6554681, 1056757, 4273041, 9913651, 6102631 #### [facility] [address] [place] [address] 79666 Monocytes/Leukocytes Auto (Bld) [Pure # fraction] 0.5 E9/L Normal 0.2-1.0 [facility] Comment on above: Order Comment: Order Added by Discern Expert. Performed By: #### 1 4235896, 6740799, 0087017, 7661986, 3636684 #### [facility] [address] [place] [address] 92369 Neutrophils/100 WBC (Bld) 71.9 % Normal 36.0-75.0 [facility] Comment on above: Order Comment: Order Added by Discern Expert. Performed By: #### 1 7285578, 3299263, 6742140, 1782927, 4814836 #### [facility] [address] [place] [address] Neutrophils/Leukocyte s Auto (Bld) [Pure # fraction] 5.8 E9/L Normal 2.0-7.5 [facility] Comment on above: Order Comment: Order Added by Discern Expert. Performed By: #### 1 2324277, 7869766, 6299426, 9298897, 7324204 #### [facility] [address] [place] [address]45 CBC w/ Auto Diffon 3 Erythrocyte distribution width (RBC) [Ratio] 12.6 % Normal 10.9-14.2 [facility] Comment on above: Performed By: #### 1 0323446, 4845428, 5828120, 7785002, 3954902 #### [facility] [address] [place] [address] 52423 Hematocrit (Bld) [Volume fraction] 37.8 % Normal 34.0-46.0 [facility] Comment on above: Performed By: #### 1 7204321, 7714868, 7243361, 5353471, 7385411 #### [facility] [address] [place] [address] Hemoglobin (Bld) [Mass/Vol] 12.7 g/dL Normal 12.0-16.0 [facility] Comment on above: Performed By: #### 1 7784888, 1136189, 9927009, 4001907, 0260223 #### [facility] [address] [place] [address] MCH (RBC) [Entitic mass] 32.2 pg Normal 27.0-34.0 [facility] Comment on above: Performed By: #### 1 5078974, 1451606, 1012572, 6588040, 1889993 #### [facility] [address] [place] [address] MCHC (RBC) [Mass/Vol] 33.8 g/dL Normal 31.4-36.0 [facility] Comment on above: Performed By: #### 1 9418753, 7171141, 0076502, 0635606, 9900361 #### [facility] [address] [place] [address] MCV (RBC) [Entitic vol] 95.5 fL Normal 80.0-100.0 [facility] Comment on above: Performed By: #### 1 8223797, 9903815, 4148088, 0582401, 3802268 #### [facility] [address] [place] [address] Platelet mean volume (Bld) [Entitic vol] 8.5 fL Normal 6.4-10.8 [facility] Comment on above: Performed By: #### 1 1937934, 9348200, 5363786, 0723136, 7916503 #### [facility] [address] [place] [address] Platelets (Bld) [#/Vol] 303.0 E9/L Normal 150.0-500.0 [facility] Comment on above: Performed By: #### 1 9075980, 0141615, 8730787, 6298670, 0522234 #### [facility] [address] [place] [address] RBC (Bld) [#/Vol] 4.0 E12/L Low 4.3-5.9 [facility] Comment on above: Performed By: #### 1 1732050, 4322929, 7263780, 0288207, 4279399 #### [facility] [address] [place] [address] WBC corrected for nucl RBC Auto (Bld) [#/Vol] 8.1 E9/L Normal 4.0-11.0 [facility] Comment on above: Performed By: #### 1 0028367, 0438698, 0753178, 9605322, 4510924 #### [facility] [address] [place] [address] CHEMISTRYOrdered By: SYSTEM SYSTEM on 06-21-2023 Albumin [...] 06-21-2023 Albumin [Mass/Vol] 3.8 g/dL Normal 3.3-5.0 [facility] Comment on above: Performed By: #### 1 9645034, 8008565, 2760371, 7805087, 9165480 #### [facility] [address] [place] [address] Albumin/Globulin [Mass ratio] 1.3 {ratio} Normal 1.1-2.2 [facility] Comment on above: Performed By: #### 1 4966387, 6533037, 9802032, 1632587, 6676004 #### [facility] [address] [place] [address] Alk Phos 83 Int._Unit/L Normal 21-98 [facility] Comment on above: Performed By: #### 1 1004269, 2477460, 3116412, 5688461, 0702649 #### [facility] [address] [place] [address] ALT 10 Int._Unit/L Normal 6-46 [facility] Comment on above: Performed By: #### 1 2314407, 8763187, 1102290, 1169216, 9702696 #### [facility] [address] [place] [address] Anion gap [Moles/Vol] 10 mmol/L Normal 6-16 [facility] Comment on above: Performed By: #### 1 1316196, 2560713, 2327276, 7376788, 9448784 #### [facility] [address] [place] [address] AST 15 Int._Unit/L Normal 5-43 [facility] Comment on above: Performed By: #### 1 4438502, 8920967, 1679570, 7680730, 4750217 #### [facility] [address] [place] [address] Bili Total 0.5 mg/dL Normal 0.0-1.1 [facility] Comment on above: Performed By: #### 1 7168829, 2679942, 8450791, 7415160, 1122773 #### [facility] [address] [place] [address] BUN/Creat Ratio 22 No Units High 10-20 [facility] Comment on above: Performed By: #### 1 0799638, 0270823, 3850342, 1047090, 1996800 #### [facility] [address] [place] [address] Calcium [Mass/Vol] 8.7 mg/dL Low 8.9-11.1 [facility] Comment on above: Performed By: #### 1 5102493, 5068502, 2589779, 4637575, 0954712 #### [facility] [address] [place] [address] Chloride [Moles/Vol] 103 mmol/L Normal 101-111 [facility] Comment on above: Performed By: #### 1 4998785, 9345355, 9524857, 9611886, 7826944 #### [facility] [address] [place] [address] CO2 [Moles/Vol] 29 mmol/L Normal 21-31 [facility] Comment on above: Performed By: #### 1 1558138, 5808691, 5761957, 0431057, 1899612 #### [facility] [address] [place] [address] Creatinine [Mass/Vol] 0.6 mg/dL Normal 0.5-1.3 [facility] Comment on above: Performed By: #### 1 9807644, 6732587, 1982928, 8814648, 4607552 #### [facility] [address] [place] [address] Globulin (S) [Mass/Vol] 3.0 g/dL Normal 1.4-4.0 [facility] Comment on above: Performed By: #### 1 1667201, 8341247, 8679242, 8438826, 6109681 #### [facility] [address] [place] [address] Glucose [Mass/Vol] 84 mg/dL Normal 55-199 [facility] Comment on above: Performed By: #### 1 5819131, 4087683, 3774941, 5428732, 8277865 #### [facility] [address] [place] [address] Potassium [Moles/Vol] 3.9 mmol/L Normal 3.5-5.3 [facility] Comment on above: Performed By: #### 1 3061350, 5621698, 1170914, 8872745, 4306113 #### [facility] [address] [place] [address] Protein [Mass/Vol] 6.8 g/dL Normal 6.0-7.8 [facility] Comment on above: Performed By: #### 1 3621853, 1812953, 9610410, 7850026, 3148415 #### [facility] [address] [address] Sodium [Moles/Vol] 138 mmol/L Normal 135-145 [facility] Comment on above: Performed By: #### 1 3696931, 5168242, 3779357, 3865197, 5114502 #### [facility] [address] [address] Urea nitrogen [Mass/Vol] 13 mg/dL Normal 5-21 [facility] Comment on above: Performed By: #### 1 9797986, 2507402, 3801716, 2762326, 8564038 #### [facility] [address] [address] Consent for Treatmenton 05-25 Consent for Treatment [id number]#1.00TIFF Normal [facility] Free T4on 06-21-2023 Free T4 [Mass/Vol] 1.37 ng/dL Normal 0.58-1.64 [facility] Comment on above: Performed By: #### 1 2170555, 7277082, 2209948, 1583246, 3596526 #### [facility] [address] [place] [address] HEMATOLOGYOrdered By: SYSTEM SYSTEM on 06-21-2023 Basophils/100 [...] HemeAutoSS Physician Orderon 06-21-2023 Physician Order [id number]#1.00TIFF Normal [facility] T3 Uptakeon 06-21-2023 T3 Uptake 46.6 % Normal 32.0-48.4 [facility] Comment on above: Performed By: #### 2 728893, 0050884, 9957345, 67656456 ####[facility] [address] [place] [address] T4 Totalon 06-21-2023 T4 18.8 microgram/dL High 4.6-9.1 [facility] Comment on above: Performed By: #### 2 265981, 9968293, 8646638, 65064292 ####[facility] [address] [place] [address] TSHon 06-21-2023 TSH Qn 0.07 m[IU]/L Low 0.34-5.60 [facility] Comment on above: Performed By: #### 2 206649, 0729762, 5265061, 73131678 ####[facility] [address] [place] [address] eGFRon 06-21-2023 GFR/1.73 sq M.predicted among non-blacks MDRD (S/P/Bld) [Vol rate/Area] mL/min/{1.73_m2} Normal >=59 [facility] Comment on above: Order Comment: Order added by Discern Expert. Performed By: #### 1 0503369, 5130281, 1368927, 9926309, 4567589 #### [facility] [address] [place] [address] Family Medicine Office/Clini c Noteon 06-20-2023 Family [...] with voice recognition software. Occasional wrong-word or ?apnsh-q-mhbq? 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 But again is seeing COFFEE SUPERVISOR in regards to these fluctuations denies [...] with prim (more content not included)... Normal [facility] Comment on above: Result Comment: [...] weeks. Home care treatment may include: ? Niec-kfu-frgqlzv pain relievers. ? A warm, moist cloth placed over the ear. Severe cases may require a procedure to insert tubes in the ears (tympanostomy tubes) to drain the fluid. Follow these instructions at home: ? Take vhuc-fcz-oxctepl and prescription medicines only as told by [...] provider. Document Revised: 10/04/2021 Document Reviewed: 10/04/2021 [employer] Patient Education ? 2022 [employer] Endocrinology Thyroid Nodule A thyroid nodule [...] FINAL REPORT Dictated: 06/10/2023 10:16 am Jose Tautm MD, V. Signed (Electronic Signature): 06/10/2023 10:16 am Signed by: Jose Tatum MD, V. Transcribed by: YAMINI Technologist: CAPRI Technical Comments None Normal [facility] Consent for Treatmenton 05-23 Consent for Treatment [id number]#1.00TIFF Normal [facility] RAD - MRI Screening Formon 1 08-10-2022 RAD - MRI Screening Form [id number]#1.00TIFF Normal [facility] Physician Orderon 06-03-2023 Physician Order [id number]#1.00TIFF Normal [facility] Consent for Treatmenton Consent for Treatment [id number]#1.00TIFF Normal [facility] Physician Orderon 04-28-2023 Physician Order [id number]#1.00TIFF [facility] XR Spine Cervical 4 or 5 [...] mGy = na DAP = na Normal [facility] EMG Electromyographyon 01-21 EMG Electromyography [id number]#1.00CD:127 Normal [facility] CHEMISTRYOrdered By: SYSTEM SYSTEM on 12-03-2021 [...] developed and its performance characteristics determined by [employer]. Nucleic acid amplification tests include RT-PCR and [...] detected) result in this assay. Performed at: [address] [id number] PhD Mahnaz Conklin Vital Signs Date Time Vital Sign Value Performing Clinician Facility 11-12-2023 12:45-0400 Blood Pressure Location Paul Gudimella [facility] 11-12-2023 12:45-0400 Diastolic blood pressure 76 mm[Hg] Paul Gudimella [facility] 11-12-2023 12:45-0400 Heart rate 72 /min Paul Gudimella [facility] 11-12-2023 12:45-0400 SaO2% (BldA) [Mass fraction] 99 % Paul Gudimella [facility] 11-12-2023 12:45-0400 Systolic blood pressure 116 mm[Hg] Paul Gudimella [facility] 10-07-2023 10:22-0400 Blood Pressure Location Christopher BROWN [facility] 10-07-2023 10:22-0400 Body temperature 97.88 [degF] Christopher BROWN [facility] 10-07-2023 10:22-0400 Diastolic blood pressure 76 mm[Hg] Christopher BROWN [facility] 10-07-2023 10:22-0400 Heart rate 66 /min Christopher BROWN [facility] 10-07-2023 10:22-0400 Respiratory rate 16 /min Christopher BROWN [facility] 10-07-2023 10:22-0400 SaO2% (BldA) [Mass fraction] 100 % Christopher BROWN [facility] 10-07-2023 10:22-0400 Systolic blood pressure 116 mm[Hg] Christopher BROWN [facility] 08-04-2023 11:27-0500 Body height 167.6 cm Matra Puente MD Work Phone: [facility] 08-04-2023 11:27-0500 Body mass index (BMI) [Ratio] 21.14 kg/m2 Marta Puente MD Work Phone: [facility] 08-04-2023 11:27-0500 Body weight 59.42 kg Marta Puente MD Work Phone: [facility] 08-04-2023 11:27-0500 Diastolic blood pressure 81 mm[Hg] Marta Puente MD Work Phone: [facility] 08-04-2023 11:27-0500 Systolic blood pressure 111 mm[Hg] Marta Puente MD Work Phone: [facility] 07-24-2023 13:41-0500 Blood Pressure Location Paul Gudimella [facility] 07-24-2023 13:41-0500 Diastolic blood pressure 70 mm[Hg] Paul Gudimella [facility] 07-24-2023 13:41-0500 Heart rate 86 /min Paul Gudimella [facility] 07-24-2023 13:41-0500 SaO2% (BldA) [Mass fraction] 98 % Paul Gudimella [facility] 07-24-2023 13:41-0500 Systolic blood pressure 106 mm[Hg] Paul Gudimella [facility] 07-18-2023 16:16-0500 Blood Pressure Location Nancy BARRIENTOS [facility] 07-18-2023 16:16-0500 Diastolic blood pressure 60 mm[Hg] Nancy BARRIENTOS [facility] 07-18-2023 16:16-0500 Heart rate 92 /min Nancy BARRIENTOS [facility] 07-18-2023 16:16-0500 Respiratory rate 16 /min Nancy BARRIENTOS [facility] 07-18-2023 16:16-0500 SaO2% (BldA) [Mass fraction] 98 % Nancy BARRIENTOS [facility] 07-18-2023 16:16-0500 Systolic blood pressure 90 mm[Hg] Nancy BARRIENTOS [facility] 06-24-2023 13:49-0500 Blood Pressure Location Paul Gudimella [facility] 06-24-2023 13:49-0500 Diastolic blood pressure 72 mm[Hg] Paul Gudimella [facility] 06-24-2023 13:49-0500 Heart rate 89 /min Paul Gudimella [facility] 06-24-2023 13:49-0500 SaO2% (BldA) [Mass fraction] 97 % Paul Gudimella [facility] 06-24-2023 13:49-0500 Systolic blood pressure 98 mm[Hg] Paul Gudimella [facility] 06-20-2023 18:43-0500 Blood Pressure Location Filiberto Shoaib [facility] 06-20-2023 18:43-0500 Body temperature 98.06 [degF] Filiberto Cramer [facility] 06-20-2023 18:43-0500 Diastolic blood pressure 76 mm[Hg] Filiberot Cramer [facility] 06-20-2023 18:43-0500 Heart rate 96 /min Filiberto Crmaer [facility] 06-20-2023 18:43-0500 SaO2% (BldA) [Mass fraction] 98 % Filiberto Cramer [facility] 06-20-2023 18:43-0500 Systolic blood pressure 122 mm[Hg] Filiberto Cramer [facility] 12-28-2021 11:20-0400 Body height 167.64 cm Ric Tinoco Other [employer] Other 12-28-2021 11:20-0400 Body mass index (BMI) [Ratio] 21.14 kg/m2 Ric Tinoco Other [employer] Other 12-28-2021 11:20-0400 Body weight 59.42 kg Ric Tinoco Other [employer] Other 04-17-2021 15:40-0400 Body height 167.64 cm Ric Tinoco Other [employer] Other 04-17-2021 15:40-0400 Body mass index (BMI) [Ratio] 21.14 kg/m2 Ric Tinoco Other [employer] Other 04-17-2021 15:40-0400 Body weight 59.42 kg Ric Tinoco Other [employer] Other 05-31-2020 15:50-0500 Body weight 63.96 kg Kathy Pereira [facility] [place] [facility] [place] 05-31-2020 15:50-0500 BP Diastolic 79 mm[Hg] Kathy Pereira [facility] [place] [facility] [place] 05-31-2020 15:50-0500 BP Systolic 107 mm[Hg] Kathy Pereira [facility] [place] [facility] [place] 05-31-2020 15:50-0500 Pulse (Heart Rate) 67 /min Kathy Pereira [facility] [place] 05-31-2020 15:50-0500 Pulse Oximetry 100 % Kathy Pereira [facility] [place] [facility] [place] 05-31-2020 15:50-0500 Respiratory Rate 20 /min Kathy Pereira [facility] [place] Encounters Encounter Date Encounter Type Care Provider Facility Start: 01-13-2024 End: 01-13-2024 ambulatory Marta Puente Facility:[facility] Start: 01-13-2024 End: 01-13-2024 Patient encounter procedure Marta Puente [facility] Start: 11-12-2023 End: 11-12-2023 ambulatory MD Paul Crook Facility:[facility] Start: 11-12-2023 End: 11-12-2023 Patient encounter procedure Paul Crook [facility] Start: 10-21-2023 End: 10-21-2023 ambulatory PETRA MORELAND Not Available Start: 10-21-2023 End: 10-21-2023 ambulatory AMAIRANI JONAS Facility:[facility] Start: 10-21-2023 End: 10-21-2023 Patient encounter procedure AMAIRANI JONAS [facility] Start: 10-07-2023 End: 10-07-2023 ambulatory Nancy BARRIENTOS Facility:[facility] Start: 10-07-2023 End: 10-07-2023 Patient encounter procedure Nancy BARRIENTOS [facility] Start: 09-10-2023 End: 09-10-2023 ambulatory AMAIRANI JONAS Facility:[facility] Start: 09-10-2023 End: 09-10-2023 Patient encounter procedure AMAIRANI JONAS [facility] Start: 08-04-2023 Bamboo flowsheet Marta rubio MD Work Phone: [facility] Start: 08-04-2023 Bamboo flowsheet Marta rubio MD Work Phone: [facility] Start: 08-04-2023 End: 08-04-2023 ambulatory MARTA PUENTE Not Available Start: 08-04-2023 End: 08-04-2023 Office outpatient visit 15 minutes Mart[facility]ente MD [facility] Comment on above: Mass of thyroid nadir on (Primary Dx); Hyperthyroidism (CMS/HCC) Start: 07-29-2023 ambulatory Nancy BARRIENTOS [facility] ity:HELEN [facility] Start: 07-24-2023 End: 07-24-2023 ambulatory MD Paul Crook Facility:[facility] Start: 07-24-2023 End: 07-24-2023 Patient encounter procedure Paul Crook [facility] Start: 07-18-2023 End: 07-18-2023 ambulatory Nancy BARRIENTOS Facility: [facility] Start: 07-18-2023 End: 07-18-2023 Patient encounter procedure Nancy BARRIENTOS [facility] Start: 07-18-2023 End: 07-18-2023 ambulatory MD Paul Crook Facility:[facility] Start: 07-18-2023 End: 07-18-2023 Patient encounter procedure Paul Kali [facility] Start: 07-14-2023 End: 07-14-2023 ambulatory MD Ruben Barrientos Work Phone: [facility] Work Phone: Start: 07-14-2023 End: 07-14-2023 Departed Referred MD Ruben Barrientos Work Phone: [facility] Start: 07-08-2023 End: 10-07-2023 ambulatory MD Paul Crook Facility:[facility] Start: 07-08-2023 End: 10-07-[address] [facility] Start: 07-04-2023 End: 07-04-2023 ambulatory MARTA PUENTE Not Available Start: 06-27-2023 ambulatory MD Paul Oseguera lity:[facility] Start: 06-27-2023 End: 06-27-2023 ambulatory MD Paul Crook Facility:[facility] Start: 06-27-2023 End: 06-27-2023 Patient encounter procedure Paul Crook [facility] Start: 06-24-2023 End: 06-24-2023 ambulatory MD Paul Crook Facility:[facility] Start: 06-24-2023 End: 06-24-2023 Patient encounter procedure Paul Crook [facility] Start: 06-21-2023 End: 06-21-2023 ambulatory Filiberto Cramer Facility:[facility] Start: 06-21-2023 End: 06-21-2023 Patient encounter procedure Filiberto Cramer [facility] Start: 06-20-2023 End: 06-20-2023 ambulatory Filiberto AngelitoJanie Henryey Facility: [facility] Start: 06-20-2023 End: 06-20-2023 Patient encounter procedure Filiberto Manuelpsey [facility] Start: 06-09-2023 End: 06-09-2023 ambulatory Narendranath Lakshmipathy Facility:[facility] Start: 06-09-2023 End: 06-09-2023 Patient encounter procedure Narendranath Lakshmipathy [facility] Start: 05-07-2023 End: 05-07-2023 ambulatory KRAIG PARK Not Available Start: 04-28-2023 ambulatory Anitra BARRIENTOS Facility: [facility] Start: 04-28-2023 End: 04-28-2023 ambulatory EBER CASTANEDA Facility:[facility] Start: 04-28-2023 End: 04-28-2023 Patient encounter procedure EBER CASTANEDA [facility] Start: 11-05-2022 End: 11-06-2022 ambulatory NARENDRANATH LAKSHMIPATHY . Facility: Start: 10-22-2022 End: 10-22-[address] DOCTOR ALEJANDRE Facility:[facility] Start: 10-01-2022 End: 10-02-2022 ambulatory ISAURA KELLY . Facility:[facility] Start: 08-27-2022 End: 08-27-2022 ambulatory Ric Tinoco Other [facility] Other Start: 08-27-2022 Telephone encounter Ric Tinoco [facility] Start: 06-11-2022 End: 06-12-[address] HERB RIVERO . Facility:[facility] Start: 05-28-2022 End: 12-06-[address] HERB RIVERO . Facility:[facility] Start: 03-05-2022 End: 03-06-[address] HERB RIVERO . Facility:[facility] Start: 12-28-2021 End: 12-28-2021 ambulatory Ric Tinoco Other [facility] Other Start: 12-28-2021 Office outpatient visit 15 minutes Ric Tinoco [facility] [facility] Start: 12-03-2021 End: 12-03-2021 Patient encounter procedure [facility] Start: 11-08-2021 End: 11-09-[address] HERB RIVERO . Facility:[facility]1 Start: 07-13-2021 End: 10-11-2021 Patient encounter procedure Nancy BARRIENTOS [facility] Start: 04-17-2021 Office outpatient visit 15 minutes Ric Alejandrina [facility] Neurosurgery Start: 05-31-2020 End: 05-31-2020 Emergency department patient visit [facility] Start: 05-31-2020 End: 05-31-2020 Emergency department patient visit Kathy M [facility] Work Phone: [facility] ED Comment on above: Chest wall pain (Brunilda michelet Dx) Start: 12-30-2018 End: 01-07-2019 Patient encounter procedure PROVIDER UNKNOWN Facility:[facility] Procedures Date Procedure Procedure Detail [...] anterior approach Nancy BARRIENTOS Comment on above: [facility] Start: 06-19-2018 Removal of [...] on above: 10/2017 Dr. Barnes @ [facility] lumbar microdisectomy 6 Rex BARRIENTOS Comment on above: 10/2017 Dr. Barnes @ [facility] TVH 6 Nancy CHIN WN Comment on above: per Dr. Glez 8 wisdom teeth extracted Ruben BARRIENTOS Plan of Treatment Date Care Activity Detail Author Start: 05-31-2026 Screening for malign ant neoplasm of cervix [facility] Start: 08-04-2023 End: 08-04-2023 Patient encounter procedure 08/04/2023 11:20 AM EST Office Visit [facility] [address] [facility] [address] [place] [address] Marta Puente MD [address] [facility] [address] [place] [address] Arrived [facility] Comment on above: Arrived Start: 02-21-2023 Influenza vaccination Influenza Vacc ine (#1) [facility] Start: 02-22-2020 Influenza vaccination Flu vaccine (# 1) [facility] [place] Start: 2005 Screening for malign ant neoplasm of cervix Pap Smear [facility] EKG 12 Lead EKG 12 Lead ECG STAT 05/31/2020 4:01 PM [facility] [place], [place] Immunizations Immunization Date Immunization Notes Care Provider Joey jimenez 10-28-2020 COVID-19, mRNA, LNP-S, PF, 30 mcg/0.3 mL dose; Translations: [Pfizer-BioNTech COVID-19 Vaccine] Nancy BARRIENTOS [facility] Comment on above: Reason for Medicatio n: Prophylaxis 10-07-2020 COVID-19, mRNA, LNP-S, PF, 30 mcg/0.3 mL dose; Translations: [Pfizer-BioNTech COVID-19 Vaccine] Nancy BARRIENTOS [facility] Comment on above: Reason for Medicatio n: Prophylaxis 04-15-2020 influenza, injectable, quadrivalent, contains preservative Nancy BARRIENTOS [facility] 04-15-2020 influenza virus vaccine, unspecified formulation Marta Puente MD Work Phone: [facility] 03-23-2018 influenza virus vaccine, unspecified formulation Nancy BARRIENTOS [facility] 03-10-2013 tetanus toxoid, reduced diphtheria toxoid, and acellular pertussis vaccine, adsorbed Nancy BARRIENTOS [facility] Comment on above: Reason for Medicatio n: Other (see comment) 10-13-2007 tetanus toxoid, reduced diphtheria toxoid, and acellular pertussis vaccine, adsorbed Filiberto Cramer [facility] 10-24-1999 hepatitis A and hepatitis B vaccine Filiberto Cramer [facility] 01-25-1998 measles, mumps and rubella virus vaccine Filiberto Cramer [facility] NEGATED: Highlighted row has not occurred!07-18-2023 influenza virus vaccine, unspecified formulation Nancy BARRIENTOS [facility] NEGATED: Highlighted row has not occurred!06-20-2023 influenza virus vaccine, unspecified formulation Filiberto Cramer [facility] Payers Date Payer Category Payer Self-pay [id number] 2022 Medicaid [facility] [employer] [place] [id number] 2022-Present [address] [place] [address] [id number] 2022 Medicaid [id number] 2006 Private Health Insurance [id number] 1984 Unknown [id number] 2.16.840.1.765647.3.579.2.6 47 1984 Unknown [id number] 2.16.840.1.047672.3.579.2.1 74 1984 Unknown [id number] 2.16.840.1.307786.3.579.2.5 93 1984 Unknown [id number] 2.16.840.1.423939.3.579.2.5 93 1984 Unknown [id number] 2.16.840.1.411648.3.579.2.5 93 1984 Unknown [id number] 2.16.840.1.117627.3.579.2.5 93 1984 Unknown [id number] 2.16.840.1.699879.3.579.2.5 93 1984 Unknown [id number] 2.16.840.1.631312.3.579.2.5 93 1984 Unknown [id number] 2.16.840.1.541302.3.579.2.5 93 1984 Unknown [id number] 2.16.840.1.329646.3.579.2.1 259 1984 Unknown [id number] 2.16.840.1.149804.3.579.2.1 259 1984 Unknown [id number] 2.16.840.1.831085.3.579.2.1 259 1984 Unknown [id number] 2.16.840.1.644342.3.579.2.1 259 1984 Unknown [id number] 2.16.840.1.378901.3.579.2.7 27 1984 Unknown [id number] 2.16.840.1.270011.3.579.2.7 27 1984 Unknown [id number] 2.16.840.1.825892.3.579.2.7 27 1984 Unknown [id number] 2.16.840.1.016951.3.579.2.7 27 1984 Unknown [id number] 2.16.840.1.705305.3.579.2.7 27 1984 Unknown [id number] 2.16.840.1.579357.3.579.2.7 27 1984 Unknown [id number] 2.16.840.1.828882.3.579.2.7 27 1984 Unknown [id number] 2.16.840.1.821222.3.579.2.7 27 1984 Unknown [id number] 2.16.840.1.494662.3.579.2.7 27 1984 Unknown [id number] 2.16.840.1.715838.3.579.2.7 27 1984 Unknown [id number] 2.16.840.1.122744.3.579.2.7 27 1984 Unknown [id number] 2.16.840.1.526823.3.579.2.7 27 1984 Unknown [id number] 2.16.840.1.793673.3.579.2.7 27 1984 Unknown [id number] 2.16.840.1.710021.3.579.2.7 27 1984 Unknown [id number] 2.16.840.1.067047.3.579.2.7 27 1984 Unknown [id number] 2.16.840.1.243476.3.579.2.7 27 1984 Unknown [id number] 2.16.840.1.502477.3.579.2.7 27 1984 Unknown [id number] 2.16.840.1.403036.3.579.2.7 27 1959 Private Health Insurance [id number] 1.2.840.002798.1.13.239.2.7 .3.268537.315 Unknown [id number] 2.16.840.1.272691.3.579.2.5 31 Social History Date Type Detail Facility Start: 05-31-2020 End: 11-12-2023 Tobacco smoking status INIS Never smoker [place] Start: 05-31-2020 End: 05-06-2023 Tobacco use and exposure Never used [place] Sex Assigned At Not on file [place] Exposure to SARS-CoV -2 (event) Not sure [place] Tobacco smoking status Never [facility] Start: 07-03-2023 End: 07-04-2023 Sex Assigned At Female [employer] Other Start: 1985 Sex Assigned At Female [facility] Start: 07-31-2023 End: 08-04-2023 Alcohol intake Ex-drinker [...] Gender identity Identifies as female gender (finding) [facility] Start: 05-06-2023 Sexual orientation Heterosexual (finding) [facility] Medical Equipment Procedure Code Equipment Code Equipment Origin al Text Equipment Identifier Dates Anterior lumbar interbody fusion (ALIF) STRATOFUSE [id number] FDA Start: 12-06-2019 Anterior lumbar interbody fusion (ALIF) Orthopaedic bone screw, non-bioabsorbable, non-sterile +[id number] FDA Start: 12-06-2019 Anterior lumbar interbody fusion (ALIF) Orthopaedic bone screw, non-bioabsorbable, non-sterile +[id number] FDA Start: 12-06-2019 Anterior lumbar interbody fusion (ALIF) Bone-screw internal spinal fixation system, non-sterile +[id number] FDA Start: 12-06-2019 Anterior lumbar interbody fusion (ALIF) Bone-screw internal spinal fixation system, non-sterile +[id number] FDA Start: 12-06-2019 Anterior lumbar interbody fusion (ALIF) Spinal fusion graft kit ()[id number] FDA Start: 12-06-2019 Anterior lumbar interbody fusion (ALIF) Spinal bone screw, non-bioabsorbable ()[id number] FDA Start: 12-06-2019 Anterior lumbar interbody fusion (ALIF) Metallic spinal fusion cage, non-sterile ()[id number] FDA Start: 12-06-2019 Anterior lumbar interbody fusion (ALIF) Bone-screw internal spinal fixation system, non-sterile +[id number] FDA Start: 12-06-2019 Functional Status Date Assessment Result Facility 11-12-2023 Functional Status N/A [facility] 10-07-2023 Functional Status N/A [facility] 07-24-2023 Functional Status N/A [facility] 07-18-2023 Functional Status N/A [facility] [place] 06-24-2023 Functional Status N/A [facility] [place] 06-20-2023 Functional Status N/A [facility] Clinical Notes 04-17-2021 to 10-21-2023 LaboratoryHidenis Puente MD - 08/04/2023 11:20 AM ESTLaboratoryRadiologyLaboratoryLaboratoryLaboratory Note Date & Type Note Facility 10-21-2023 Evaluation + Plan note Diagnostic Tests PendingT3 Free 10/21/23 Future Scheduled TestsLab Miscellaneous-LC 07/24/23 [facility] 10-07-2023 Hospital Discharge instructions Patient Education [...] Treatment for this condition includes: Antibiotic medicine. Mvut-gdj-vyhtpwc medicines to treat discomfort. Drinking enough water [...] Follow these instructions at home: Medicines Take ugvx-hux-zarjfyh and prescription medicines only as told by [...] provider. Document Revised: 01/19/2021 Document Reviewed: 01/19/2021 [employer] Patient Education 2022 INBEP. Follow Up Care 10/07/2023 07:28:28 With:JUAN LUIS REES, SAMIR [place] Address: When: only if needed [facility] [place] 08-04-2023 History of Present illness Narrative Subjective [...] per Dr Jonas documented in this encounter [facility] 07-24-2023 Evaluation + Plan note Future Scheduled TestsLab Miscellaneous-LC 2/1/24Echo Transthoracic Complete 07/24/23 [facility] [place] 07-24-2023 Evaluation + Plan note Future Scheduled TestsLab Miscellaneous-LC 07/24/23 [facility] 07-18-2023 Evaluation + Plan note Diagnostic Tests PendingT3 Reverse, Serum 07/18/23Thyroid Perox.tpo Ab 07/18/23TgAb+Thyroglobulin,NIGEL or KELVIN 07/18/23 [facility] 07-18-2023 Hospital Discharge instructions Patient Education [...] surgery. Follow these instructions at home: Take ydto-kfj-bkqgswi and prescription medicines only as told by [...] condition. Where to find more information [employer] [place] of Diabetes and Digestive and Kidney Diseases: [...] provider. Document Revised: 08/02/2022 Document Reviewed: 08/02/2022 [employer] Patient Education 2022 INBEP. Follow Up Care 07/18/2023 07:34:13 With:Nancy BARRIENTOS MD, FAM Address: When: only if needed [facility] [place] 06-21-2023 Evaluation + Plan note Diagnostic Tests PendingT3 Free 06/21/23 Future Scheduled TestsCBC w/ Auto Diff 06/20/23Comprehensive Metabolic Panel 06/20/23Free T4 06/20/23 [facility] 06-20-2023 Hospital Discharge instructions Patient Education [...] few weeks. Home care treatment may include: Mbrj-pkf-joftpsw pain relievers. A warm, moist cloth placed over the ear. Severe cases may require a procedure to insert tubes in the ears (tympanostomy tubes) to drain the fluid. Follow these instructions at home: Take ffzd-gdy-vtwufqb and prescription medicines only as told by [...] provider. Document Revised: 10/04/2021 Document Reviewed: 10/04/2021 [employer] Patient Education 2022 INBEP. 06/20/2023 19:03:16 Thyroid Nodule Thyroid Nodule A [...] in your thyroid nodule or nodules. Take dzwz-bok-lcteypz and prescription medicines only as told by [...] provider. Document Revised: 04/22/2022 Document Reviewed: 04/22/2022 [employer] Patient Education 2022 INBEP. Follow Up Care 06/20/2023 07:23:01 With:JUAN LUIS REES, Nancy [facility] Address: [address] [place] [address]- When: Unknown [facility] 06-20-2023 Evaluation + Plan note Future Scheduled TestsT4 Total 06/20/23CBC w/ Auto Diff 06/20/23Comprehensive Metabolic Panel 06/20/23T3 Free 06/20/23T3 Uptake 06/20/23Thyroid Stimulating Hormone 06/20/23Free T4 06/20/23 [facility] 10-01-2022 Note CONSULTATION [...] our patients to inform us about any ftuf-lvd-vnuapzo medications or herbal remedies/nutritional supplements/alternative remedies. 2. [...] options with their primary care provider. [facility] 06-11-2022 Note CONSULTATION CONSULTATION DATE: 06/11/2022 CHIEF [...] and concurs. CC: Nancy Barrientos M.D. [facility] 03-05-2022 Note PAIN MANAGEMENT CONS ULTATION CONSULTATION [...] along this region. CC: Dr. Barrientos [facility] 12-28-2021 Evaluation note Encounter Date Diagnosis Assessment [...] follow her up on an as-needed basis [employer] [facility] 06-13-2022 Evaluation + Plan note Diagnostic Tests Pending * Insulin Level Total 12/03/21 * T3 Free 12/03/21 * FSH Level 12/03/21 Future Scheduled Tests Laboratory* COVID-19 ([facility]) 07/13/21 [facility]05-19-2022 NoteCONSULTATION CONSULTATION DATE: 11/08/2021 This is [...] does plan on seeing Dr. Damon in [facility]. Activities that aggravate her neck are twisting, [...] of care and would like to proceed. [facility] Signed and Approved by: ISAURA KELLY . 11/12/2021 15:05:00[facility]01-21-2022 Evaluation + Plan note Future Scheduled Tests Laboratory* COVID-19 ([facility]) 07/13/21 [facility]10-26-2021 Evaluation note* Encounter Date Diagnosis Assessment Notes Treatment Notes Treatment Clinical Notes Mar, Spondylolisthesis at L5-S1 level (ICD-10 - M43.17) I answered a number of questions for the patient. I think a transforaminal injection may be beneficial. I also believe that she could potentially benefit from a dorsal column stimulator. She is seeing a another neurologist at [facility] and I am interested in what medication changes are made. I will see the patient again in 3 months and review this with her. I looked at the picture of the spine today she has good bone formation and her LONG TERM hardware is intact. Because of the persistent [...] region with neurogenic claudication (ICD-10 - M48.062) [employer] Other evaluation + Plan note Future Appointments Appointment Date:06/27/2023 07:30:00 AM Scheduled Provider: Location:.[facility] Appointment Type:US Thyroid/Neck/Chest () Appointment Date:06/27/2023 08:00:00 AM Scheduled [facility] Type:CV EKG () Appointment Date:07/29/2023 12:40:00 PM Scheduled Provider:Nancy BARRIENTOS MD Location:[facility] Appointment Type:FM Open Future Scheduled Tests Laboratory* UA With Cult Reflex 06/24/23 * CBC w/ Auto Diff 06/20/23 * Comprehensive Metabolic Panel 06/20/23 * Lipid Panel 06/24/23 * Free T4 06/20/23 Radiology* US Thyroid 06/27/23 [facility] [place] Evaluation + Plan note Future Appointments Appointment Date:07/29/2023 12:40:00 PM Scheduled Provider:Nancy BARRIENTOS MD Location:[facility] Appointment Type: Open Future Scheduled Tests Laboratory* UA With Cult Reflex 06/24/23 * CBC w/ Auto Diff 06/20/23 * Comprehensive Metabolic Panel 06/20/23 * Lipid Panel 06/24/23 * Free T4 06/20/23 Radiology* US FNA w/ Guidance, first lesion 06/27/23 * NM Thyroid Imaging w/ Uptk Multiple [facility] Future Appointments Appointment Date:09/11/2023 08:00:00 AM Scheduled Provider: [facility] Appoint[facility] Type:CV Echo (FT) Diagnostic Tests Pending * T3 Free 09/10/23 * Thyrotropin Receptor Antibody, Serum 09/10/23 Future Scheduled Tests Laboratory* Lab Miscellaneous-LC 07/24/23 Radiology* Echo Transthoracic Complete [facility]23 [facility] note[facility] InformationNort [employer] Other evaluation noteNo assessment information available [facility] Work Phone: Evaluation note* Diagnosis Mass of [...] ALIF-Doctor Alejandrina Hospitalization History see surgical hx [facility] Other Hospital course Narrative No data available [facility] this section [facility] No data available for this section [facility] No data available for this section [facility] Summary Purpose Family History No Family History Records Found Relationship Condition Age at Onset Recorded Date/T rody Not Specified Healthy female adult Unknown father Osteoarthritis Unknown Degeneration of intervertebral disc Unkno wn Advance Directives No Advanced Directives Records FoundDocuments on File Type Date Recorded Patient Speech Professor Expl anation ACP-Advance Directive ACP-Power of Operations Expert Advance 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 * Chest Pain: Musculoskeletal (Swedish) documented in this encounter Assessments Diagnosis Chest wall pain Painful respiration Reason for Referral Reason Evaluate and Treat C onsider for Dorsal Column Stimulator Diagnosis 1 Spondylolisthesis at L5-S1 level (M43.17) Referral Organization [facility] urosurgery Referring Provider First Name Ric Referring Provider Last Name Alejandrina Referring Provider Specialty Neurologica l Surgery Referred Organization Unknown Facility Referred Provider Mansoor Summers Referred Provider Specialty Pain Medicin e Referral Priority Routine Additional Source Comments INFORMATION SOURCE (unrecogn ized section and content) DATE CREATED AUTHOR 01/14/2020 [facility] DATE CREATED AUTHOR AUTHOR'S ORGANIZ ATION 06/01/2020 [facility] DATE CREATED AUTHOR AUTHOR'S ORGANIZ ATION 11/06/2022 [facility] DATE CREATED AUTHOR AUTHOR'S ORGANIZ ATION 08/01/2023 [facility] DATE CREATED AUTHOR AUTHOR'S ORGANIZ ATION 10/22/2023 [facility] EPIC DATE CREATED AUTHOR AUTHOR'S ORGANIZ ATION 01/17/2024 [facility] Reason for Visit (unrecogniz ed section and [...] July 14, 2023 End: July 14, 2023 Broach Setter Relationship Specialty Start Date End Date Nancy Barrientos MD [address] [place] [phone] PCP - General 05/07/23 Broach Setter Relationship Specialty Start Date End Date Nancy Barrientos MD [address] [place] [phone] PCP - General 05/07/23 Goals (unrecognized section [...] BE BASED ON THE PRIMARY CLINICAL RECORDS. [facility]. provides no warranty or guarantee of the accuracy or completeness of information in this document.
--- NOTE | 2024-02-11 06:59 | MR_ITS ---
[address] [address] Patient Name: JESSICA GRIFFITHS MRN: [id number] date: 1985 Sex: F Assigned Patient Location: MRI Current Patient Location: MRI Accession/Order Number: [id number] Exam Date: 02/11/2024 06:59 Report Date: 02/11/2024 16:48 At the request of: EBER CASTANEDA Procedure: MR lumbar spine wo/w con MRI LUMBAR SPINE WITH AND WITHOUT CONTRAST, 02/11/2024. HISTORY: Chronic low back pain. Bilateral leg pain. COMPARISON: MRI lumbar spine, 10/09/2020. TECHNIQUE: Multiplanar, multisequence MRI imaging of the lumbar spine with and without contrast. FINDINGS: There are postoperative changes from previous interbody fusion and pedicle screw and frieda fixation at L5-S1. These findings are stable. The alignment is normal. No acute compression fracture. Signal within the bone marrow spaces is normal. No bone marrow edema or suspicious osseous lesions. L5-S1, postoperative changes at this level are stable. No spinal canal stenosis. No neural foraminal narrowing. This level is stable. L4-L5, the disc space is normal in height and normal in signal. No spinal stenosis. No foraminal narrowing. L3-L4, no significant degenerative changes. No spinal stenosis. No foraminal narrowing. This level is stable. L2-L3, no significant degenerative changes. No spinal stenosis. No foraminal narrowing. L1-L2, no degenerative changes. No spinal stenosis or foraminal narrowing. No abnormal signal or pathologic enhancement in the conus medullaris. No pathologic enhancement of the cauda equina. No paraspinal mass. MR/MR lumbar spine wo/w con IMPRESSION: 1. Stable MRI of the lumbar spine. 2. There are postoperative changes from prior interbody fusion, laminectomy and pedicle screw and frieda fixation at L5-S1. These findings are stable. No spinal stenosis or foraminal narrowing at this level. 3. No significant degenerative changes at the remainder of the lumbar levels or foraminal narrowing. Electronically authenticated by: ANA ROSA WOOD Date: 02/11/2024 16:48
--- NOTE | 2024-02-11 08:10 | XR_ITS ---
[facility] [place] [id number] Patient Name: JESSICA GRIFFITHS MRN: [id number] date: 1985 Sex: F Assigned Patient Location: MRI Current Patient Location: MRI Accession/Order Number: [id number] Exam Date: 02/11/2024 08:20 Report Date: 02/11/2024 12:06 At the request of: EBER CASTANEDA Procedure: XR lumbar spine 6V w bending EXAMINATION: XR lumbar spine 6V w bending HISTORY: Lumbar Stenosis With Neuroclaudication COMPARISON: No relevant comparison available. FINDINGS: BONES: Posterior mechanical fusion L5-S1 without evidence of hardware fracture loosening. Normal height and alignment of the vertebral bodies; no fracture, spondylolisthesis or change in alignment during flexion and extension. No significant facet arthropathy. DISC SPACES: Intervertebral disc spacer L5-S1. Normal height and alignment at remaining levels. PARASPINOUS: Negative. No paraspinous abnormality is seen. OTHER: Negative. XR/XR lumbar spine 6V w bending IMPRESSION: 1. Stable surgical changes at the L5-S1 level without evidence of hardware failure. 2. Otherwise unremarkable lumbar spine. Electronically authenticated by: MIKAYLA HEDRICK Date: 02/11/2024 12:06
== END 2024-02-11 06:48 | disposition home or self-care (01) ==
LOC: MRI 06:47
PROVIDERS: Visit Provider Nurse Practitioner
DX: M48.062 Spinal stenosis, lumbar region with neurogenic claudication (principal); M43.27 Fusion of spine, lumbosacral region
CPT/HCPCS: 72114; 72158; A9575

== ENCOUNTER 2024-02-19 07:43 | Outpatient (OUT) | payer MEDICAID, SELFPAY ==
--- OUTSIDE RECORDS SUMMARY | 2024-02-19 07:46 | XMS_ITS | CCD ---
Author Organization [facility] [place] [facility] Care Team Providers Care Senior Tableau Developer Name Role Phone UNKNOWN, PROVIDER Admitting Unavailable UNKNOWN, PROVIDER Attending Unavailable UNKNOWN, PHYSICIAN Referring Unavailable UNKNOWN, PHYSICIAN Primary Care Unavailable Nancy Barrientos Primary Care Provider KATHY GHOSH Attending Unavailable NANCY BARRIENTOS Primary Care Unavailable Nancy BARRIENTOS Primary Care Physician [phone] Ric Tinoco Unavailable JOSEFA ., DR HERB [...] Propensity to adverse reactions (disorder) 9 [facility] Repository (18 sources) Adhesive Tape; Translations: [Tape] Drug allergy Eruption of skin (disorder) [facility] (20 sources) Latex; Translations: [Latex] Drug allergy 5 Rash [facility] Other (3 sources) adhesive bandages Propensity to adverse reactions rash [facility] Other (1 source) Adhesive agent Drug allergy (disorder) 6 [facility] Repository (1 source) Adhesive agent Drug allergy (disorder) 2 [facility] Repository (1 source) Adhesive Tape Drug allergy (disorder) 0 [facility] Repository (3 sources) Wound Dressing Adhesive [...] course, # 28 cap(s), Refills(s) 0, Pharmacy: [facility], 168, cm, 07/11/20 8:27:00 [...] Daily, # 90 tab(s), Refills(s) 1, Pharmacy: [facility], 168, cm, 07/11/20 8:27:00 [...] nasal route once daily Flonase 0.05 mg/inh [place] 2 spray(s), Nasal, Daily for 7 day(s), 16 gm, Refill(s) 0, each nostril, [facility], 168, cm, 06/20/23 18:45:00 [...] BID, # 180 tab(s), Refills(s) 1, Pharmacy: [facility], 168, cm, 07/11/20 8:27:00 EST, Height/Length Dosing, 64.1, kg, 07/11/20 8:27:00 EST, Weight Dosing Start Date: 08/22/20 Status: Ordered loratadine 10 mg oral tablet (3 sources) Start: 02-23-2020 take 1 tablet by mouth once daily loratadine 10 mg Tab 10 mg = 1 tab(s), Oral, Daily, # 90 tab(s), Refills(s) 1, Pharmacy: [facility], 168, cm, 02/23/20 10:40:00 EDT, Height/Length Dosing, 65, kg, 02/23/20 10:40:00 EDT, Weight Dosing Start Date: 02/23/20 Status: Ordered Start: 11-30-2019 take 1 capsule by [facility] once daily loratadine (CLARITIN) 10 MG [...] Nausea/Vomiting, # 10 tab(s), Refills(s) 0, Pharmacy: [facility], 168, cm, 07/10/20 13:24:00 [...] symptoms, # 30 tab(s), Refills(s) 0, Pharmacy: [facility], 168, cm, 10/07/23 10:32:00 EDT, Height/Length Dosing, 61, kg, 10/07/23 10:32:00 EDT, Weight Dosing Start Date: 10/07/23 Status: Ordered Start: 05-26-2020 take 1 tablet by jaden th twice daily as needed oxybutynin 5 mg Tab 5 mg = 1 tab(s), Oral, BID, PRN for urinary discomfort, # 60 tab(s), Refills(s) 2, Pharmacy: [facility], 168, cm, 05/26/20 16:32:00 [...] breakfast, # 30 tab(s), Refills(s) 5, Pharmacy: [facility], 168, cm, 07/11/20 8:27:00 [...] Once, # 1 tab(s), Refills(s) 0, Pharmacy: [facility], 168, cm, 07/24/23 13:48:00 EST, Height/Length Dosing, 61, kg, 07/24/23 13:48:00 EST, Weight Dosing Start Date: 07/24/23 Status: Ordered Protonix 40 mg Tab-EC (3 sources) Start: 02-06-2021 take 1 tablet by mouth once daily 30 minutes before breakfast Protonix 40 mg Tab-EC 40 mg = 1 tab(s), Oral, Daily, Take 30 minutes before breakfast, # 30 tab(s), Refills(s) 5, Pharmacy: [facility], 168, cm, 07/11/20 8:27:00 [...] BID, # 60 tab(s), Refills(s) 2, Pharmacy: [facility], 168, cm, 11/08/21 9:50:00 EDT, Height/Length Dosing, 65.4, kg, 11/08/21 9:50:00 EDT, Weight Dosing Start Date: 01/18/22 Status: Ordered Start: 11-23-2020 take 1 tablet by jaden th twice daily valacyclovir 1 g Tab 1 gram = 1 tab(s), Oral, BID, # 60 tab(s), Refills(s) 2, Pharmacy: [facility], 168, cm, 07/11/20 8:27:00 EST, Height/Length Dosing, 64.1, kg, 07/11/20 8:27:00 EST, Weight Dosing Start Date: 11/23/20 Status: Ordered Start: 11-23-2020 take 1 tablet by jaden th twice daily valacyclovir 1 g Tab 1 gram = 1 tab(s), Oral, BID, # 60 tab(s), Refills(s) 2, Pharmacy: [facility], 168, cm, 07/11/20 8:27:00 EST, Height/Length Dosing, 64.1, kg, 07/11/20 8:27:00 EST, Weight Dosing Start Date: 11/23/20 Status: Ordered Completed/Discontinued Medications Medication Drug Class(es) Dates Sig (Normalized) Sig (Original) acetaminophen 325 mg / HYDROcodone bitartrate 5 mg oral tablet (2 sources) Opioid Agonist Start: 09-12-2017 End: 11-30-2019 take 1 tablet by mouth every four to six hours Hydrocodone-Acetami nophen ([place]) 5-325 mg tablet Discontinued 1 TAB PO EVERY 4-6 HOURS September 12, 2017 November 30, 2019 9:37am Start: 09-04-2017 End: 09-12-2017 take 1 tablet by mouth once daily at bedtime Hydrocodone-Acetaminophen ([place]) 5-325 mg Tablet Discontinued 1 TAB PO [...] DO Transcribed by: YAMINI Technologist: KYS Normal [facility] Consenton 11-12-2023 Consent [id number]#1.00TIFF Normal [facility] Consent [id number] E25#1.00TIFF Normal [facility] Medicine Office/Clini c Noteon 11-12-2023 Family [...] with voice recognition artificial intelligence software, specifically Muse, [employer] and or [employer]. Substitutions may have occurred due to the inherent limitations of voice recognition and artificial intelligence software. Documentation services were performed after patient or guardian consented to allow [employer] to record this visit. DEX small engine specialist Perlita Dominguez and provider reviewed before [...] per year, 06/24/2023 Employment/School Employed, Work/School description: [employer]., 02/01/2019 Home/Environment Lives with Children, [...] influenza viru (more content not included)... Normal [facility] Comment on above: Result Comment: Elec tronically Signed By: Paul Crook MD\.br\Date and Time Signed: 11/12/23 14:07 EDT\.br\Electronically Co-Signed By: Tyrone Garcia\.br\Date and Time Co-Signed: 11/12/23 13:40 EDT T3 Freeon 10-22-2023 Free T3 [Mass/Vol] 2.9 pg/mL Invalid Interpretation Code 2.0-4.4 [facility] Comment on above: Result Comment: Perf ormed at: [facility] [id number] PhD Mahnaz Conklin Performed By: #### 2 341653, [id number], [id number] ####[facility] [address] [place] [address] CHEMISTRYOrdered By: SYSTEM SYSTEM on 10-21-2023 Free T4 [Mass/Vol] 0.65 ng/dL Normal 0.58 - 1.64 ng/dL Remisol Chem TSH Qn 4.41 m[IU]/L Normal 0.34 - 5.60 mcIU/mL Remisol Chem Consent for Treatmenton 09-23 Consent for Treatment [id number]#1.00TIFF Normal [facility] Free T4on 10-21-2023 Free T4 [Mass/Vol] 0.65 ng/dL Normal 0.58-1.64 [facility] Comment on above: Performed By: #### 2 623756, 4348013, 8500389 ####[facility] [address] [place] [address] Physician Orderon 10-21-2023 Physician Order [id number]#1.00TIFF Normal [facility] TSHon 10-21-2023 TSH Qn 4.41 m[IU]/L Normal 0.34-5.60 [facility] Comment on above: Performed By: #### 2 783370, [id number], 7928374 ####[facility] [address] [place] [address] Ambulatory Visit Summaryon 0 10-07-2023 Ambulatory Visit [...] urinary discomfort for bladder symptoms Pickup at [facility] Unchanged baclofen (baclofen 10 mg Tab) See [...] physician if questions or concerns Pharmacy Information [facility]: [address] [phone] Allergies Latex Tape (Rash) Problems Ongoing - [...] have a (more content not included)... Normal [facility] Family Medicine Office/Clini c Noteon 10-07-2023 [...] two weeks, she has not utilized any hlxp-lhr-muomjpj or old antibiotics, nor has she utilized [...] week. She is seeing Dr. Jonas in [place] for her thyroid. She has been trying [...] Urnls Dip Stick Auto w/o Microscopy POC 12088 2. Thyroiditis, subacute (E06.1: Subacute thyroiditis) Continue following with Dr. Jonas in [place] for management of the methimazole. 3. Lumbar [...] symptoms, # 30 tab(s), Refills(s) 0, Pharmacy: [facility], 168, cm, 10/07/23 10:32:00 EDT, Height/Length Dosing, 61, kg, 10/07/23 10:32:00 EDT, Weight Dosing Portions of this record may have been created with voice recognition artificial intelligence software, specifically Muse, [employer] and or [employer]. Substitutions may have occurred due to the inherent limitations of voice recognition and artificial intelligence software. Follow-up With When Contact Information Nancy BARRIENTOS MD, [facility] Only if needed Additional Instructions: Patient [...] Anterior lumba (more content not included)... Normal [facility] Comment on above: Result Comment: Elec [...] this condition includes: ? Antibiotic medicine. ? Rirw-djr-hxqvhyu medicines to treat discomfort. ? Drinking enough [...] these instructions at home: Medicines ? Take uxqp-nwu-akeiefh and prescription medicines only as told by [...] Document Revie (more content not included)... Normal [facility] T3 Freeon 09-13-2023 Free T3 [Mass/Vol] 1.5 pg/mL Low 2.0-4.4 [facility] Comment on above: Result Comment: Perf ormed at: [facility] [place] [address] [place], [place] [id number] PhD Mahnaz Conklin Performed By: #### 2 819070, [id number], 8315065, 2473240, 4582995 ####[facility] [address] [place] [address] Thyrotropin Receptor Antibod y, Serumon 09-13-2023 TSH receptor Ab Qn (S) <1.10 Invalid Interpretation Code 0.00-1.75 [facility] Comment on above: Result Comment: Perf ormed at: [facility] [address] [id number] MD Enrico Dean Performed By: #### 2 705832, [id number], 5845435, 4209275, 5906970 ####[facility] [address] [place] [address] CHEMISTRYOrdered By: SYSTEM SYSTEM on 09-10-2023 Albumin [...] for Treatmenton 08-22 Consent for Treatment [id number]#1.00TIFF Normal [facility] Free T4on 09-10-2023 Free T4 [Mass/Vol] ng/dL Low 0.58-1.64 [facility] Comment on above: Performed By: #### 2 981237, [id number], 5351212, 6802767, 0652382 ####[facility] [address] [place] [address] Hep Func Panelon 09-10-2023 Albumin [Mass/Vol] 4.2 g/dL Normal 3.3-5.0 [facility] Comment on above: Performed By: #### 2 418888, [id number], 5512784, 4720270, 5318730 ####[facility] [address] [place] [address] Albumin/Globulin (S) [Mass conc ratio] 1.4 Normal 1.1-2.2 [facility] Comment on above: Performed By: #### 2 890332, [id number], 3457657, 6175881, 9538889 ####[facility] [address] [place] [address] ALP [Catalytic activity/Vol] 66 Int._Unit/L Normal 21-98 [facility] Comment on above: Performed By: #### 2 558957, 1209504412, 9568776, 2410518, 6658391 ####[facility] [address] [place] [address] ALT No additional P-5'-P [Catalytic activity/Vol] 14 Int._Unit/L Normal 6-46 [facility] Comment on above: Performed By: #### 2 677432, [id number], 2086221, 4427629, 1261767 ####[facility] [address] [place] [address] AST [Catalytic activity/Vol] 22 Int._Unit/L Normal 5-43 [facility] Comment on above: Performed By: #### 2 601452, 2244085238, 2952859, 5193326, 8583079 ####[facility] [address] [place] [address] Bilirubin [Mass/Vol] 0.5 mg/dL Normal 0.0-1.1 [facility] Comment on above: Performed By: #### 2 154920, 0438215935, 4011551, 0208521, 9480177 ####[place] [address] Bilirubin.direct [Mass/Vol] 0.1 mg/dL Normal 0.0-0.4 [facility] Comment on above: Performed By: #### 2 934096, 6426310590, 4345993, 7778108, 2129708 ####[facility] [address] [place] [address] Bilirubin.indirect [Mass or moles/Vol] 0.4 mg/dL Normal 0.1-0.9 [facility] Comment on above: Performed By: #### 2 093483, 7115865947, 2083386, 2988421, 5599338 ####[facility] [address] [place] [address] Globulin (S) [Mass/Vol] 3.0 g/dL Normal 1.4-4.0 [facility] Comment on above: Performed By: #### 2 887111, 3548475791, 0870350, 5341849, 5073049 ####[place] [address] [place] [address] Protein [Mass/Vol] 7.2 g/dL Normal 6.0-7.8 [facility] Comment on above: Performed By: #### 2 124839, 2673326766, 7546822, 4673675, 1530406 ####[facility] [address] [place] [address] Physician Orderon 09-10-2023 Physician Order [id number]#1.00TIFF Normal [facility] TSHon 09-10-2023 TSH Qn 68.80 m[IU]/L High 0.34-5.60 [facility] Comment on above: Performed By: #### 2 193989, 0168091141, 3642806, 1818933, 7599968 ####[facility] [address] [place] [address] Consultation Noteon 08-12-19 Consultation Note [id number]#1.00TIFF [facility] Insurance Correspondenceon 0 08-05-2023 Insurance Correspondence [id number]#1.00TIFF [facility] Consultation Noteon 08-04-19 Consultation Note [id number]#1.00TIFF [facility] .Thyroglobulin by RIAon 07-24 Thyroglobulin [Mass/Vol] 159 ng/mL High [facility] Comment on above: Result Comment: Conf irmed by dilution. This test was developed and its performance characteristics determined by [employer]. It has not been cleared or approved [...] quantitation limit is 2.0 ng/mL. Performed at: [facility] [address] [place] [id number] MD Yadiel Cornell Performed By: #### 7 [id number], 5193903, 46094078, 6078635, 838088694, 17290462 ####[facility] [address] [place] [address] T3 Reverseon 08-02-2023 T3.reverse [Mass/Vol] 31.2 ng/dL High 9.2-24.1 [facility] Comment on above: Result Comment: This test was developed and its performance characteristics determined by [employer]. It has not been cleared or approved by the Food and Drug Administration. Performed at: [place] [address] [place], [place] [id number] MD Enrico Dean Performed By: #### 7 [id number], 2133364, 31555035, 0108231, 259058149, 37186837 ####[facility] [address] [place] [address] TgAb+Thyroglobulinon 024 Thyroglobulin Ab Qn 2.7 International_Unit /mL High 0.0-0.9 [facility] Comment on above: Result Comment: Thyr oglobulin Antibody measured by Nakul Leslie Methodology Performed at: [address] [id number] PhD Mahnaz Conklin Performed By: #### 7 [id number], 9046582, 49021487, 0178501, 278447476, 94077757 ####[facility] [address] [place] [address] Thyroid Perox.tpo Abon 08-02 TPO Ab Qn [IU]/mL Invalid Interpretation Code 0-34 [facility] Comment on above: Result Comment: Perf ormed at: [address] [id number] PhD Mahnaz Conklin Performed By: #### 7 [id number], 1124696, 19604995, 8795775, 935082373, 84980676 ####[place] [address] [place] [address] Family Medicine Office/Clini c Noteon 07-29-2023 Family [...] and imagi (more content not included)... 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 SW will remain available. Normal [facility] Ambulatory Visit Summaryon 0 07-24-2023 Ambulatory [...] hormone level, Print Label By Order Location, [id number]\.br\ Echo Transthoracic Complete, 07/24/23, Routine, Order for future visit, Transport Mode: Ambulatory, Reason: Other (please specify), Reason: murmur, Heart murmur, pp_set_radiology_ subspecialty, [facility], [facility] [place]\.br\ Medications\.br\ What How Much When Instructions\.br\ New propranolol (propranolol 10 mg Tab) 1 Tablets By Mouth Once Pickup at [facility]\.br\ Unchanged baclofen (baclofen 10 mg Tab) See [...] if questions or concerns \.br\ Pharmacy Information\.br\ [facility]: [address] [phone]\.br\ Allergies\.br\ Latex\.br\ Tape (Rash)\.br\ Problems\.br\ Ongoing - [...] for choosing us for your care.\.br\ \.br\ [facility] Ambulatory Visit Summaryon 0 07-18-2023 Ambulatory [...] Appointments Follow Up with Nancy BARRIENTOS MD [facility] When: Only if needed Where: Medications [...] You smoke (more content not included)... Normal [facility] CHEMISTRYOrdered By: SYSTEM SYSTEM on 07-18-2023 Free T4 [Mass/Vol] 2.22 ng/dL High 0.58 - 1.64 ng/dL Remisol Chem TSH Qn 0.01 m[IU]/L Low 0.34 - 5.60 mcIU/mL Remisol Chem Clipboard Summaryon 07-18-19 24 Clipboard Summary {36-mq-n5-2d-15-1c -91-5n-i8-9a-b9-6d -cb-25-c2-ac}XML Normal [facility] Consent for Treatmenton 06-24 Consent for Treatment [id number]#1.00TIFF Normal [facility] Family Medicine Office/Clini c Noteon 07-18-2023 [...] and had a biopsy on Friday at [facility], carried out by the radiology department interventional [...] Nonicteric sclera. Oropharynx pink and moist. Adequate nondalton dentition. Anterior neck, there is a fullness [...] the pathology report on her phone from [facility] which indicates benign cellularity although [...] Dysphagia, unspecified) (more content not included)... Normal [facility] Comment on above: Result Comment: Elec tronically Signed By: JUAN LUIS REES, Nancy\.br\Date and Time Signed: 07/18/23 19:02 EST Free T4on 07-18-2023 Free T4 [Mass/Vol] 2.22 ng/dL High 0.58-1.64 [facility] Comment on above: Performed By: #### 7 [id number], 6935394, 32023404, 5074997, 360194202, 12668366 #### [facility] [address] [place] [address] Patient Educationon 07-18-19 24 Patient Education Endocrinology [...] Follow these instructions at home: ? Take puik-rbn-sezczvd and prescription medicines only as told by [...] Where to find more information ? National [place] of Diabetes and Digestive and Kidney Diseases: [...] as u (more content not included)... Normal [facility] TSHon 07-18-2023 TSH Qn 0.01 m[IU]/L Low 0.34-5.60 [facility] Comment on above: Performed By: #### 7 [id number], 2555291, 24793205, 6140566, 643521706, 50557059 #### [facility] [address] [place] [address] Mata 07-14-2023 L Specimen: [id number] Received: 07/15/23 Status: DENA Sifuentes Num: [id number] Spec Type: Cytology Subm Dr: MARTA PUENTE MD Tissues: A FNA SLIDES NOPATH (LT THYROID NOD) Procedures: Cyto Int and Re, PAPSTN/5 Age/ Patient Sex Location Account Attending Physician RoccoJessica Jonathon 37/F [facility] [id number] MARTA PUENTE MD SPEC NUM: [id number] RECD: 07/15/23 STATUS: DENA SIFUENTES NUM: [id number] KANCHAN: 07/14/23- SUBM DR: MARTA PUENTE MD ENTERED: 07/15/[address] [facility] DR: Neno Quiroz SPEC TYPE: Cytology DEPT: [facility] IDADRY ENTERED BY: [id number] RECV BY: [id number] ORDERED: Cyto Int and Re, PAPSTN/5 ORDERED: Cyto Int and Re, PAPSTN/5 Pathological Diagnosis Left thyroid mid lobe nodule, FNA cytology: - Adequate but slightly limited for assessment - The [place] system is category 2: Benign - A [...] BC Received: 07/15/23 Status: DENA Sifuentes Num: [id number] Spec Type: Cytology Subm Dr: MARTA PUENTE MD Tissues: A FNA SLIDES NOPATH (LT THYROID NOD) Procedures: Cyto Int and Re, PAPSTN/5 -- Patient: Jessica Griffiths [id number] (Continued) -- Specimen: [id number] Received: 07/15/23 (Continued) Signed (signatu re on file) Alfonso Correa MD 07/16/231122 -- Specimen: [id number] Received: 07/15/23 Status: DENA Sifuentes Num: [id number] Spec Type: Cytology Subm Dr: MARTA PUENTE MD Tissues: A FNA SLIDES NOPATH (LT THYROID NOD) Procedures: Cyto Int and Re, PAPSTN/5 -- Patient: Jessica Griffiths [id number] (Continued) -- Specimen: BC Received: 07/15/23 (Continued) CPT Codes 63131 -- -- Specimen: BC Received: 07/15/23 Status: DENA Sifuentes Num: [id number] Spec Type: Cytology Subm Dr: MARTA PUENTE MD Tissues: A FNA SLIDES NOPATH (LT THYROID NOD) Procedures: Cyto Int and Re, PAPSTN/5 -- Patient: Jessica Griffiths [id number] (Continued) -- Signed (signatu re on file) Alfonso Correa MD 07/16/23 1123 [facility] Thyroid Imaging w/ Uptk Angelito ortega 07-09-2023 [place] Thyroid Imaging w/ Uptk Multiple Exam Date/Time: [...] 203.5 Imaging Post Administration (hrs): 24 Normal [facility] CHEMISTRYOrdered By: SYSTEM SYSTEM on 07-08-2023 [...] for Treatmenton 06-23 Consent for Treatment [id number]#1.00TIFF Normal [facility] Lipid Panelon 07-08-2023 Cholesterol [Mass/Vol] 145 mg/dL Normal 120-200 [facility] Comment on above: Performed By: #### 2 227202 ####[facility] [address] [place] [address] Cholesterol in HDL [Mass/Vol] 62 mg/dL Invalid Interpretation Code [facility] Comment on above: Result Comment: '>= 60 LOW RISK' '<= 40 HIGH RISK' Performed By: #### 2 647712 ####[facility] [address] [place] [address] Cholesterol in LDL [Mass/Vol] 76 mg/dL Normal <=129 [facility] Comment on above: Performed By: #### 2 694218 ####[facility] [address] [place] [address] Cholesterol in VLDL [Mass/Vol] 10 mg/dL Normal 7-40 [facility] Comment on above: Performed By: #### 2 155490 ####[facility] [address] [place] [address] Triglyceride [Mass/Vol] 52 mg/dL Normal <=149 [facility] Comment on above: Performed By: #### 2 514484 ####[facility] [address] [place] [address] UA With Cult Reflexon 2023 Bacteria LM Ql (Urine sed) 1+ /HPF Abnormal Trace [facility] Comment on above: Performed By: #### 1 5766623 ####[facility] [address] [place] [address] Bilirubin Ql (U) Negative Normal Negative [facility] Comment on above: Performed By: #### 1 9606603 ####[address] [address] Clarity (U) CLEAR Normal Clear [facility] Comment on above: Performed By: #### 1 0362148 ####[address] [address] Color (U) YELLOW Normal Yellow [facility] Comment on above: Performed By: #### 1 0639588 ####[address] [address] Epithelial cells.squamous LM.HPF (Urine sed) [#/Area] /[HPF] Normal 0-2 [facility] Comment on above: Performed By: #### 1 5199432 ####[facility] [address] [place] [address] Glucose Test strip (U) [Mass/Vol] Negative Normal Negative [facility] Comment on above: Performed By: #### 1 9188502 ####[facility] [address] [place] [address] Hemoglobin Ql (U) Negative Normal Negative [facility] Comment on above: Performed By: #### 1 4499506 ####[facility] [address] [place] [address] Ketones (U) [Mass/Vol] TRACE Abnormal Negative [facility] Comment on above: Performed By: #### 1 6288888 ####[place] [address] [place] [address] [place].plasma/Lithiu m.RBC (Bld) [Mass ratio] 0-3 Normal 0-3 [facility] Comment on above: Performed By: #### 1 7904045 ####[facility] [address] [place] [address] Mucus Ql (Urine sed) 2+ Normal [facility] Comment on above: Performed By: #### 1 [id number] ####[address] [address] Nitrite Ql (U) Negative Normal Negative [facility] Comment on above: Performed By: #### 1 [id number] ####[address] [address] pH (U) 6.5 [pH] Invalid Interpretation Code 5.0-9.0 [facility] Comment on above: Performed By: #### 1 [id number] ####[address] [address] Protein (U) [Mass/Vol] Negative Normal Negative [facility] Comment on above: Performed By: #### 1 [id number] ####[address] [address] Specific gravity (U) [Rel density] 1.015 Invalid Interpretation Code 1.005-1.030 [facility] Comment on above: Performed By: #### 1 [id number] ####[address] [address] Type of Urine collection method Clean Catch Normal [facility] Comment on above: Performed By: #### 1 [id number] ####[address] [address] Urobilinogen Qn (U) 0.2 {Dylan'U}/dL Normal 0.0-1.0 [facility] Comment on above: Performed By: #### 1 [id number] ####[address] [address] WBC Auto Ql (U) Negative Normal Negative [facility] Comment on above: Performed By: #### 1 [id number] ####[address] [address] WBC LM.HPF (Urine sed) [#/Area] 0-5 Normal 0-5 [facility] Comment on above: Performed By: #### 1 [id number] ####[facility] [address] [place] [address] URINALYSISOrdered By: Jennifer morris on 07-08-2023 Bacteria [...] Interpretation Code Negative [facility] UA Auto SS [place].plasma/Lith[place] m.RBC (Bld) [Mass ratio] 0-3 /HPF [...] [facility] UA Auto SS Urobilinogen Qn (U) 0.3506718 {Dylan'U}/dL Normal 0.0 - 1.0 EU/dL [facility] [place] Auto SS WBC Auto Ql (U) Negative (07/08/23 7:42 AM) Normal Negative [facility] [place] Auto SS WBC LM.HPF (Urine sed) [#/Area] 0-5 /HPF Normal 0-5/HPF [facility] [place] Auto SS Insurance Correspondenceon 0 07-01-2023 Insurance Correspondence [id number]#1.00TIFF Normal [facility] Physician Referralon 024 Physician Referral [id number]#1.00TIFF Normal [facility] Consent for Treatmenton Consent for Treatment [id number]#1.00TIFF Normal [facility] US Thyroidon 06-27-2023 US Thyroid Exam [...] Transcribed by: YAMINI Technologist: FAISAL Price [facility] Family Medicine Office/Clini c Noteon 06-24-2023 [...] with voice recognition artificial intelligence software, specifically [employer], [employer] and or [employer]. Substitutions may have occurred due to the inherent limitations of voice recognition and artificial intelligence software. Documentation services were performed after patient or guardian consented to allow [employer] to record this visit. D (more content not included)... Normal [facility] Comment on above: Result Comment: Elec tronically Signed By: Paul Crook MD\.br\Date and Time Signed: 06/24/23 18:25 EST\.br\Electronically Co-Signed By: Jaja Alex\.br\Date and Time Co-Signed: 06/24/23 18:04 EST T3 Freeon 06-22-2023 Free T3 [Mass/Vol] 4.2 pg/mL Invalid Interpretation Code 2.0-4.4 [facility] Comment on above: Result Comment: Perf ormed at: [facility] [address] [id number] PhD Mahnaz Conklin Performed By: #### 2 [id number], 8643448, [id number], [id number] ####[address] [place] [address] Auto Diffon 06-21-2023 Basophils/100 WBC (Bld) 0.3 % Normal 0.0-2.0 [facility] Comment on above: Order Comment: Order Added by Jay Expert. Performed By: #### 1 [id number], 4394010, 4916501, 2148347, 2746573 #### [facility] [address] [place] [address] Basophils/Leukocytes Auto (Bld) [Pure # fraction] 0.0 E9/L Normal 0.0-0.2 [facility] Comment on above: Order Comment: Order Added by Discern Expert. Performed By: #### 1 5382798, 7961750, 2177991, 5115075, 6160439 #### [facility] [address] [place] [address] Eosinophils/100 WBC (Bld) 0.6 % Normal 0.0-8.0 [facility] Comment on above: Order Comment: Order Added by Jay Expert. Performed By: #### 1 7811298, 5470226, 0835390, 5710081, 5842043 #### [facility] [address] [place] [address] Eosinophils/Leukocyte s Auto (Bld) [Pure # fraction] 0.0 E9/L Normal 0.0-0.5 [facility] Comment on above: Order Comment: Order Added by Jay Expert. Performed By: #### 1 5762120, 9204039, 8866746, 2624317, 0578521 #### [facility] [address] [place] [address] Lymphocytes/100 WBC (Bld) 20.6 % Normal 14.0-50.0 [facility] Comment on above: Order Comment: Order Added by Jay Expert. Performed By: #### 1 6651160, 2824748, 6136600, 3769539, 0539611 #### [facility] [address] [place] [address] Lymphocytes/Leukocyte s Auto (Bld) [Pure # fraction] 1.7 E9/L Normal 1.0-4.0 [facility] Comment on above: Order Comment: Order Added by Jay Expert. Performed By: #### 1 7119392, 5767712, 8393077, 5190574, 9319932 #### [facility] [address] [place] [address] Monocytes/100 WBC (Bld) 6.6 % Normal 4.0-14.0 [facility] Comment on above: Order Comment: Order Added by Discern Expert. Performed By: #### 1 0300912, 9089830, 3703827, 2248628, 7095394 #### [facility] [address] [place] [address] Monocytes/Leukocytes Auto (Bld) [Pure # fraction] 0.5 E9/L Normal 0.2-1.0 [facility] Comment on above: Order Comment: Order Added by Discern Expert. Performed By: #### 1 1689138, 0204765, 0176976, 5350008, 7660390 #### [facility] [address] [place] [address] Neutrophils/100 WBC (Bld) 71.9 % Normal 36.0-75.0 [facility] Comment on above: Order Comment: Order Added by Discern Expert. Performed By: #### 1 1359248, 0381679, 6513639, 1284386, 3204799 #### [facility] [address] [place] [address] Neutrophils/Leukocyte s Auto (Bld) [Pure # fraction] 5.8 E9/L Normal 2.0-7.5 [facility] Comment on above: Order Comment: Order Added by Discern Expert. Performed By: #### 1 0623642, 4534038, 5522799, 1041326, 3841340 #### [facility] [address] [place] [address] CBC w/ Auto Diffon 3 Erythrocyte distribution width (RBC) [Ratio] 12.6 % Normal 10.9-14.2 [facility] Comment on above: Performed By: #### 1 1227614, 0167034, 7039529, 6540302, 4474269 #### [facility] [address] [place] [address] Hematocrit (Bld) [Volume fraction] 37.8 % Normal 34.0-46.0 [facility] Comment on above: Performed By: #### 1 1494675, 1899388, 0788865, 0949740, 6664899 #### [facility] [address] [place] [address] Hemoglobin (Bld) [Mass/Vol] 12.7 g/dL Normal 12.0-16.0 [facility] Comment on above: Performed By: #### 1 1314709, 9778323, 1478930, 9739333, 5654050 #### [facility] [address] [place] [address] MCH (RBC) [Entitic mass] 32.2 pg Normal 27.0-34.0 [facility] Comment on above: Performed By: #### 1 1998811, 0805689, 0180557, 0286683, 4308158 #### [facility] [address] [place] [address] MCHC (RBC) [Mass/Vol] 33.8 g/dL Normal 31.4-36.0 [facility] Comment on above: Performed By: #### 1 1035737, 2985371, 1778701, 8996421, 7838384 #### [facility] [address] [place] [address] MCV (RBC) [Entitic vol] 95.5 fL Normal 80.0-100.0 [facility] Comment on above: Performed By: #### 1 4340919, 1996727, 9280311, 1061158, 4619252 #### [facility] [address] [place] [address] Platelet mean volume (Bld) [Entitic vol] 8.5 fL Normal 6.4-10.8 [facility] Comment on above: Performed By: #### 1 8447057, 0617022, 3158782, 4927091, 7012692 #### [facility] [address] [place] [address] Platelets (Bld) [#/Vol] 303.0 E9/L Normal 150.0-500.0 [facility] Comment on above: Performed By: #### 1 3501460, 9065773, 8543032, 8151365, 9454308 #### [facility] [address] [place] [address] RBC (Bld) [#/Vol] 4.0 E12/L Low 4.3-5.9 [facility] Comment on above: Performed By: #### 1 2971510, 3149569, 5300693, 4887126, 6886101 #### [facility] [address] [place] [address] WBC corrected for nucl RBC Auto (Bld) [#/Vol] 8.1 E9/L Normal 4.0-11.0 [facility] Comment on above: Performed By: #### 1 2096669, 5041884, 7604878, 0870973, 2060466 #### [facility] [address] [place] [address] CHEMISTRYOrdered By: SYSTEM SYSTEM on 06-21-2023 Albumin [...] 06-21-2023 Albumin [Mass/Vol] 3.8 g/dL Normal 3.3-5.0 [facility] Comment on above: Performed By: #### 1 4237080, 2448997, 8210358, 5580958, 8874320 #### [facility] [address] [place] [address] Albumin/Globulin [Mass ratio] 1.3 {ratio} Normal 1.1-2.2 [facility] Comment on above: Performed By: #### 1 4706147, 6405560, 5851870, 2308658, 5379352 #### [facility] [address] [place] [address] Alk Phos 83 Int._Unit/L Normal 21-98 [facility] Comment on above: Performed By: #### 1 1215779, 3937857, 3802375, 1035631, 3371297 #### [facility] [address] [place] [address] ALT 10 Int._Unit/L Normal 6-46 [facility] Comment on above: Performed By: #### 1 9535393, 4346043, 1341338, 6370983, 0835897 #### [facility] [address] [place] [address] Anion gap [Moles/Vol] 10 mmol/L Normal 6-16 [facility] Comment on above: Performed By: #### 1 1464028, 2883371, 5663418, 1401239, 3968420 #### [facility] [address] [place] [address] AST 15 Int._Unit/L Normal 5-43 [facility] Comment on above: Performed By: #### 1 5415178, 9436887, 7033222, 5313380, 4624478 #### [facility] [address] [place] [address] Bili Total 0.5 mg/dL Normal 0.0-1.1 [facility] Comment on above: Performed By: #### 1 7767192, 2931876, 7922333, 2472514, 3963710 #### [facility] [address] [place] [address] BUN/Creat Ratio 22 No Units High 10-20 [facility] Comment on above: Performed By: #### 1 8225580, 2430596, 1369816, 4233348, 5699613 #### [facility] [address] [place] [address] Calcium [Mass/Vol] 8.7 mg/dL Low 8.9-11.1 [facility] Comment on above: Performed By: #### 1 5821319, 7627045, 9985627, 4557141, 2606940 #### [facility] [address] [place] [address] Chloride [Moles/Vol] 103 mmol/L Normal 101-111 [facility] Comment on above: Performed By: #### 1 6893095, 7753530, 5800709, 5863445, 9470278 #### [facility] [address] [place] [address] CO2 [Moles/Vol] 29 mmol/L Normal 21-31 [facility] Comment on above: Performed By: #### 1 8704647, 9713452, 2195661, 7528736, 3903767 #### [facility] [address] [place] [address] Creatinine [Mass/Vol] 0.6 mg/dL Normal 0.5-1.3 [facility] Comment on above: Performed By: #### 1 9422395, 3179920, 5727669, 2073793, 8223763 #### [facility] [address] [place] [address] Globulin (S) [Mass/Vol] 3.0 g/dL Normal 1.4-4.0 [facility] Comment on above: Performed By: #### 1 6978585, 6695909, 6576915, 4354700, 9780091 #### [facility] [address] [place] [address] Glucose [Mass/Vol] 84 mg/dL Normal 55-199 [facility] Comment on above: Performed By: #### 1 6915546, 6670429, 6925794, 8345275, 9124682 #### [facility] [address] [place] [address] Potassium [Moles/Vol] 3.9 mmol/L Normal 3.5-5.3 [facility] Comment on above: Performed By: #### 1 2081025, 9802553, 7271408, 6879504, 0150577 #### [facility] [address] [place] [address] Protein [Mass/Vol] 6.8 g/dL Normal 6.0-7.8 [facility] Comment on above: Performed By: #### 1 7238997, 8412855, 3840998, 5465191, 4424994 #### [facility] [address] Sodium [Moles/Vol] 138 mmol/L Normal 135-145 [facility] Comment on above: Performed By: #### 1 4949040, 0369948, 3021942, 4087966, 6348139 #### [facility] [address] Urea nitrogen [Mass/Vol] 13 mg/dL Normal 5-21 [facility] Comment on above: Performed By: #### 1 8652895, 4269975, 6830383, 3100526, 6118330 #### [facility] [address] Consent for Treatmenton 05-25 Consent for Treatment [id number]#1.00TIFF Normal [facility] Free T4on 06-21-2023 Free T4 [Mass/Vol] 1.37 ng/dL Normal 0.58-1.64 [facility] Comment on above: Performed By: #### 1 2975482, 5185208, 3774039, 9200080, 7453464 #### [facility] [address] [place] [address] HEMATOLOGYOrdered By: SYSTEM SYSTEM on 06-21-2023 Basophils/100 [...] HemeAutoSS Physician Orderon 06-21-2023 Physician Order [id number]#1.00TIFF Normal [facility] T3 Uptakeon 06-21-2023 T3 Uptake 46.6 % Normal 32.0-48.4 [facility] Comment on above: Performed By: #### 2 614024, 3876598, 5480712, 78450024 ####[facility] [address] [place] [address] T4 Totalon 06-21-2023 T4 18.8 microgram/dL High 4.6-9.1 [facility] Comment on above: Performed By: #### 2 832040, 4258515, 8411729, 35329736 ####[facility] [address] [place] [address] TSHon 06-21-2023 TSH Qn 0.07 m[IU]/L Low 0.34-5.60 [facility] Comment on above: Performed By: #### 2 730556, 0615238, 4182440, 51778966 ####[facility] [address] [place] [address] eGFRon 06-21-2023 GFR/1.73 sq M.predicted among non-blacks MDRD (S/P/Bld) [Vol rate/Area] mL/min/{1.73_m2} Normal >=59 [facility] Comment on above: Order Comment: Order added by Discern Expert. Performed By: #### 1 6164997, 5826035, 0148249, 5611919, 7800601 #### [facility] [address] [place] [address] Family Medicine Office/Clini c Noteon 06-20-2023 Family [...] with voice recognition software. Occasional wrong-word or ?xundj-v-tjcy? substitutions may have occurred due to the [...] know she has been working with her SCHOOL PROGRAM DIRECTOR in regards to blood test and [...] lost some weight. But again is seeing SCHOOL PROGRAM DIRECTOR in regards to these fluctuations denies [...] with prim (more content not included)... Normal [facility] Comment on above: Result Comment: Elec [...] weeks. Home care treatment may include: ? Ajuj-hgi-zysxlbd pain relievers. ? A warm, moist cloth placed over the ear. Severe cases may require a procedure to insert tubes in the ears (tympanostomy tubes) to drain the fluid. Follow these instructions at home: ? Take kdml-reg-lkenjyw and prescription medicines only as told by [...] provider. Document Revised: 10/04/2021 Document Reviewed: 10/04/2021 [employer] Patient Education ? 2022 [employer] Endocrinology Thyroid Nodule A thyroid nodule [...] (more content not included)... Normal [facility] MRI Spine Cervical w/o Contr elvira [...] YAMINI Technologist: CAPRI Technical Comments None Normal [facility] Consent for Treatmenton 05-23 Consent for Treatment [id number]#1.00TIFF Normal [facility] RAD - MRI Screening Formon 1 08-10-2022 RAD - MRI Screening Form [id number]#1.00TIFF Normal [facility] Physician Orderon 06-03-2023 Physician Order [id number]#1.00TIFF Normal [facility] Consent for Treatmenton Consent for Treatment [id number]#1.00TIFF Normal [facility] Physician Orderon 04-28-2023 Physician Order [id number]#1.00TIFF [facility] XR Spine Cervical 4 or 5 [...] mGy = na DAP = na Normal [facility] EMG Electromyographyon 01-21 EMG Electromyography [id number]#1.00CD:127 Normal [facility] CHEMISTRYOrdered By: SYSTEM SYSTEM on 12-03-2021 [...] developed and its performance characteristics determined by [employer]. Nucleic acid amplification tests include RT-PCR and [...] detected) result in this assay. Performed at: [address] [id number] PhD Mahnaz Conklin Vital Signs Date Time Vital Sign Value Performing Clinician Facility 11-12-2023 12:45-0400 Blood Pressure Location Paul Gudimella [facility] 11-12-2023 12:45-0400 Diastolic blood pressure 76 mm[Hg] Paul Gudimella [facility] 11-12-2023 12:45-0400 Heart rate 72 /min Paul Gudimella [facility] 11-12-2023 12:45-0400 SaO2% (BldA) [Mass fraction] 99 % Paul Gudimella [facility] 11-12-2023 12:45-0400 Systolic blood pressure 116 mm[Hg] Paul Gudimella [facility] 10-07-2023 10:22-0400 Blood Pressure Location Christopher BROWN [facility] 10-07-2023 10:22-0400 Body temperature 97.88 [degF] Christopher BROWN [facility] 10-07-2023 10:22-0400 Diastolic blood pressure 76 mm[Hg] Christopher BROWN [facility] 10-07-2023 10:22-0400 Heart rate 66 /min Christopher BROWN [facility] 10-07-2023 10:22-0400 Respiratory rate 16 /min Christopher BROWN [facility] 10-07-2023 10:22-0400 SaO2% (BldA) [Mass fraction] 100 % Christopher BROWN [facility] 10-07-2023 10:22-0400 Systolic blood pressure 116 mm[Hg] Christopher BROWN [facility] 08-04-2023 11:27-0500 Body height 167.6 cm Marta Puente MD Work Phone: [facility] 08-04-2023 11:27-0500 Body mass index (BMI) [Ratio] 21.14 kg/m2 Marta Puente MD Work Phone: [facility] 08-04-2023 11:27-0500 Body weight 59.42 kg Marta Puente MD Work Phone: [facility] 08-04-2023 11:27-0500 Diastolic blood pressure 81 mm[Hg] Marta Puente MD Work Phone: [facility] 08-04-2023 11:27-0500 Systolic blood pressure 111 mm[Hg] Marta Puente MD Work Phone: [facility] 07-24-2023 13:41-0500 Blood Pressure Location Paul Gudimella [facility] 07-24-2023 13:41-0500 Diastolic blood pressure 70 mm[Hg] Paul Gudimella [facility] 07-24-2023 13:41-0500 Heart rate 86 /min Paul Gudimella [facility] 07-24-2023 13:41-0500 SaO2% (BldA) [Mass fraction] 98 % Paul Gudimella [facility] 07-24-2023 13:41-0500 Systolic blood pressure 106 mm[Hg] Paul Gudimella [facility] 07-18-2023 16:16-0500 Blood Pressure Location Nancy BARRIENTOS [facility] 07-18-2023 16:16-0500 Diastolic blood pressure 60 mm[Hg] Nancy BARRIENTOS [facility] 07-18-2023 16:16-0500 Heart rate 92 /min Nancy BARRIENTOS [facility] 07-18-2023 16:16-0500 Respiratory rate 16 /min Nancy BARRIENTOS [facility] 07-18-2023 16:16-0500 SaO2% (BldA) [Mass fraction] 98 % Nancy BARRIENTOS [facility] 07-18-2023 16:16-0500 Systolic blood pressure 90 mm[Hg] Nancy BARRIENTOS [facility] 06-24-2023 13:49-0500 Blood Pressure Location Paul Gudimella [facility] 06-24-2023 13:49-0500 Diastolic blood pressure 72 mm[Hg] Paul Gudimella [facility] 06-24-2023 13:49-0500 Heart rate 89 /min Paul Gudimella [facility] 06-24-2023 13:49-0500 SaO2% (BldA) [Mass fraction] 97 % Paul Gudimella [facility] 06-24-2023 13:49-0500 Systolic blood pressure 98 mm[Hg] Paul Gudimella [facility] 06-20-2023 18:43-0500 Blood Pressure Location Filiberto Shoaib [facility] 06-20-2023 18:43-0500 Body temperature 98.06 [degF] Filiberto Cramer [facility] 06-20-2023 18:43-0500 Diastolic blood pressure 76 mm[Hg] Filiberto Cramer [facility] 06-20-2023 18:43-0500 Heart rate 96 /min Filiberto Cramer [facility] 06-20-2023 18:43-0500 SaO2% (BldA) [Mass fraction] 98 % Filiberto Cramer [facility] 06-20-2023 18:43-0500 Systolic blood pressure 122 mm[Hg] Filiberto Cramer [facility] 12-28-2021 11:20-0400 Body height 167.64 cm Ric Tinoco Other [employer] Other 12-28-2021 11:20-0400 Body mass index (BMI) [Ratio] 21.14 kg/m2 Ric Tinoco Other [facility] Other 12-28-2021 11:20-0400 Body weight 59.42 kg Ric Tinoco Other [facility] Other 04-17-2021 15:40-0400 Body height 167.64 cm Ric Tinoco Other [employer] Other 04-17-2021 15:40-0400 Body mass index (BMI) [Ratio] 21.14 kg/m2 Ric Tinoco Other [facility] Other 04-17-2021 15:40-0400 Body weight 59.42 kg Ric Tinoco Other [employer] Other 05-31-2020 15:50-0500 Body weight 63.96 kg Kathy Pereira [facility] [place] , [place] 05-31-2020 15:50-0500 BP Diastolic 79 mm[Hg] Kathy Pereira [facility] [place] [facility] [place] 05-31-2020 15:50-0500 BP Systolic 107 mm[Hg] Kathy Pereira [facility] [place] [facility] [place] 05-31-2020 15:50-0500 Pulse (Heart Rate) 67 /min Kathy Pereira [facility] [place] 05-31-2020 15:50-0500 Pulse Oximetry 100 % Kathy Pereira [facility] [place] [facility] [place] 05-31-2020 15:50-0500 Respiratory Rate 20 /min Kathy Pereira [facility] [place] Encounters Encounter Date Encounter Type Care Provider Facility Start: 01-13-2024 End: 01-13-2024 ambulatory Marta Puente [place] Start: 01-13-2024 End: 01-13-2024 Patient encounter procedure Marta Puente [facility] Start: 11-12-2023 End: 11-12-2023 ambulatory MD Pual Crook Facility:[facility] Start: 11-12-2023 End: 11-12-2023 Patient encounter procedure Paul Crook [facility] [place] Start: 10-21-2023 End: 10-21-2023 ambulatory PETRA MORELAND Not Available Start: 10-21-2023 End: 10-21-2023 ambulatory AMAIRANI JONAS [place] Start: 10-21-2023 End: 10-21-2023 Patient encounter procedure AMAIRANI JONAS [facility] Start: 10-07-2023 End: 10-07-2023 ambulatory Nancy BARRIENTOS Facility:[facility] Start: 10-07-2023 End: 10-07-2023 Patient encounter procedure Nancy BARRIENTOS [facility] Start: 09-10-2023 End: 09-10-2023 ambulatory AMAIRANI JONAS [place] Start: 09-10-2023 End: 09-10-2023 Patient encounter procedure AMAIRANI JONAS [facility] Start: 08-04-2023 Bamboo flowsheet Marta rubio MD Work Phone: [facility] Start: 08-04-2023 Bamboo flowsheet Marta rubio MD Work Phone: [facility] Start: 08-04-2023 End: 08-04-2023 ambulatory MARTA PUENTE Not Available Start: 08-04-2023 End: 08-04-2023 Office outpatient visit 15 minutes Marta Puente MD [facility] Comment on above: Mass of thyroid nadir on (Primary Dx); Hyperthyroidism (CMS/HCC) Start: 07-29-[address] [facility] ity:HE[facility] Start: 07-24-2023 End: 07-24-2023 ambulatory MD Paul Crook Facility:[facility] Start: 07-24-2023 End: 07-24-2023 Patient encounter procedure Paul Crook [facility] Start: 07-18-2023 End: 07-18-2023 ambulatory Nancy BARRIENTOS Facility: [facility] Start: 07-18-2023 End: 07-18-2023 Patient encounter procedure Nancy BARIRENTOS [facility] Start: 07-18-2023 End: 07-18-2023 ambulatory MD Paul Crook [place] Start: 07-18-2023 End: 07-18-2023 Patient encounter procedure Paul Kali [facility] Start: 07-14-2023 End: 07-14-2023 ambulatory MD Ruben Barrientos Work Phone: [facility] Work Phone: Start: 07-14-2023 End: 07-14-2023 Departed Referred MD Ruben Barrientos Work Phone: [facility] Start: 07-08-2023 End: 10-07-2023 ambulatory MD Paul Crook [place] Start: 07-08-2023 End: 10-07-2023 Recurring Paul Crook [facility] Start: 07-04-2023 End: 07-04-2023 ambulatory MARTA PUENTE Not Available Start: 06-27-2023 ambulatory MD Paul Oseguera lity:[facility] Start: 06-27-2023 End: 06-27-2023 ambulatory MD Paul Crook [place] Start: 06-27-2023 End: 06-27-2023 Patient encounter procedure Paul Crook [facility] Start: 06-24-2023 End: 06-24-2023 ambulatory MD Paul Crook Facility:[facility] Start: 06-24-2023 End: 06-24-2023 Patient encounter procedure Paul Crook [facility] Start: 06-21-2023 End: 06-21-2023 ambulatory Filiberto Cramer [place] Start: 06-21-2023 End: 06-21-2023 Patient encounter procedure Filiberto Cramer [facility] Start: 06-20-2023 End: 06-20-2023 ambulatory Filiberto AngelitoJanie Henryey Facility: [facility] Start: 06-20-2023 End: 06-20-2023 Patient encounter procedure Filiberto Manuelpsey [facility] Start: 06-09-2023 End: 06-09-2023 ambulatory Narendranath Lakshmipathy [place] Start: 06-09-2023 End: 06-09-2023 Patient encounter procedure Narendranath Lakshmipathy [facility] Start: 05-07-2023 End: 05-07-2023 ambulatory KRAIG PARK Not Available Start: 04-28-2023 ambulatory Anitra BARRIENTOS Facility: [facility] Start: 04-28-2023 End: 04-28-2023 ambulatory EBER CASTANEDA [place] Start: 04-28-2023 End: 04-28-2023 Patient encounter procedure EBER CASTANEDA [facility] Start: 11-05-2022 End: 11-06-2022 ambulatory NARENDRANATH LAKSHMIPATHY . Facility: Start: 10-22-2022 End: 10-22-[address] DOCTOR ALEJANDRE Facility:[facility] Start: 10-01-2022 End: 10-02-2022 ambulatory ISAURA KELLY . Facility:[facility] Start: 08-27-2022 End: 08-27-2022 ambulatory Ric Tinoco Other [facility] Other Start: 08-27-2022 Telephone encounter Ric Tinoco [facility] Start: 06-11-2022 End: 06-12-[address] HERB RIVERO . Facility:[facility] Start: 05-28-2022 End: 12-06-[address] HERB RIVERO . Facility:[facility] Start: 03-05-2022 End: 03-06-[address] HERB RIVERO . Facility:[facility] Start: 12-28-2021 End: 12-28-2021 ambulatory Ric Tinoco Other [facility] Other Start: 12-28-2021 Office outpatient visit 15 minutes Ric Tinoco [facility] Start: 12-03-2021 End: 12-03-2021 Patient encounter procedure Kraig Park [facility] Start: 11-08-2021 End: 11-09-[address] HERB RIVERO . Facility:[facility] Start: 07-13-2021 End: 10-11-2021 Patient encounter procedure Nancy BARRIENTOS [facility] Start: 04-17-2021 Office outpatient visit 15 minutes Ric Alejandrina [facility] Neuro[facility] Start: 05-31-2020 End: 05-31-2020 Emergency department patient visit KATHY M [facility] Start: 05-31-2020 End: 05-31-2020 Emergency department patient visit Kathy M [facility] Work Phone: [facility] ED Comment on above: Chest wall pain (Brunilda michelet Dx) Start: 12-30-2018 End: 01-07-2019 Patient encounter procedure PROVIDER UNKNOWN Facility:[facility] Procedures Date Procedure Procedure Detail [...] anterior approach Nancy BARRIENTOS Comment on above: [facility] Start: 06-19-2018 Removal of sebaceous cyst Nancy [...] Comment on above: 10/2017 Dr. Barnes @ [facility] lumbar microdisectomy 6 Rex BARRIENTOS Comment on above: 10/2017 Dr. Barnes @ [facility] TVH 6 Nancy CHIN WN Comment on above: per Dr. Glez 8 wisdom teeth extracted Ruben BARRIENTOS Plan of Treatment Date Care Activity Detail Author Start: 05-31-2026 Screening for malign ant neoplasm of cervix [facility] Start: 08-04-2023 End: 08-04-2023 Patient encounter procedure 08/04/2023 11:20 AM EST Office Visit [facility] [address] [facility] [address] [place] [address] Marta Puente MD [address] [facility] [address] [place] [address] Arrived [facility] Comment on above: Arrived Start: 02-21-2023 Influenza vaccination Influenza Vacc ine (#1) [facility] Start: 02-22-2020 Influenza vaccination Flu vaccine (# 1) [facility] [place] Start: 2005 Screening for malign ant neoplasm of cervix Pap Smear [facility] EKG 12 Lead EKG 12 Lead ECG STAT 05/31/2020 4:01 PM [facility] [place], [place] Immunizations Immunization Date Immunization Notes Care Provider Joey jimenez 10-28-2020 COVID-19, mRNA, LNP-S, PF, 30 mcg/0.3 mL dose; Translations: [Pfizer-BioNTech COVID-19 Vaccine] Nancy BARRIENTOS [facility] Comment on above: Reason for Medicatio n: Prophylaxis 10-07-2020 COVID-19, mRNA, LNP-S, PF, 30 mcg/0.3 mL dose; Translations: [Pfizer-BioNTech COVID-19 Vaccine] Nancy BARRIENTOS [facility] Comment on above: Reason for Medicatio n: Prophylaxis 04-15-2020 influenza, injectable, quadrivalent, contains preservative Nancy BARRIENTOS [facility] 04-15-2020 influenza virus vaccine, unspecified formulation Marta Puente MD Work Phone: [facility] 03-23-2018 influenza virus vaccine, unspecified formulation Nancy BARRIENTOS [facility] 03-10-2013 tetanus toxoid, reduced diphtheria toxoid, and acellular pertussis vaccine, adsorbed Nancy BARRIENTOS [facility] Comment on above: Reason for Medicatio n: Other (see comment) 10-13-2007 tetanus toxoid, reduced diphtheria toxoid, and acellular pertussis vaccine, adsorbed Filiberto Cramer [facility] 10-24-1999 hepatitis A and hepatitis B vaccine Filiberto Cramer [facility] 01-25-1998 measles, mumps and rubella virus vaccine Filiberto Cramer [facility] NEGATED: Highlighted row has not occurred!07-18-2023 influenza virus vaccine, unspecified formulation Nancy BARRIENTOS [facility] NEGATED: Highlighted row has not occurred!06-20-2023 influenza virus vaccine, unspecified formulation Filiberto Cramer [facility] Payers Date Payer Category Payer Self-pay [id number] 2022 Medicaid [facility] AN[employer]M BCBS [place]ICA[place] [id number] 2022-Present [address] [place] [address] [id number] 2022 Medicaid [id number] 2006 Private Health Insurance [id number] 1984 Unknown [id number] 2.16.840.1.840024.3.579.2.6 47 1984 Unknown [id number] 2.16.840.1.326068.3.579.2.1 74 1984 Unknown [id number] 2.16.840.1.367772.3.579.2.5 93 1984 Unknown [id number] 2.16.840.1.237783.3.579.2.5 93 1984 Unknown [id number] 2.16.840.1.547284.3.579.2.5 93 1984 Unknown [id number] 2.16.840.1.140941.3.579.2.5 93 1984 Unknown [id number] 2.16.840.1.034137.3.579.2.5 93 1984 Unknown [id number] 2.16.840.1.924809.3.579.2.5 93 1984 Unknown [id number] 2.16.840.1.108219.3.579.2.5 93 1984 Unknown [id number] 2.16.840.1.736533.3.579.2.1 259 1984 Unknown [id number] 2.16.840.1.332317.3.579.2.1 259 1984 Unknown [id number] 2.16.840.1.813954.3.579.2.1 259 1984 Unknown [id number] 2.16.840.1.737860.3.579.2.1 259 1984 Unknown [id number] 2.16.840.1.175656.3.579.2.7 27 1984 Unknown [id number] 2.16.840.1.553480.3.579.2.7 27 1984 Unknown [id number] 2.16.840.1.259340.3.579.2.7 27 1984 Unknown [id number] 2.16.840.1.058721.3.579.2.7 27 1984 Unknown [id number] 2.16.840.1.975218.3.579.2.7 27 1984 Unknown [id number] 2.16.840.1.101847.3.579.2.7 27 1984 Unknown [id number] 2.16.840.1.176862.3.579.2.7 27 1984 Unknown [id number] 2.16.840.1.439429.3.579.2.7 27 1984 Unknown [id number] 2.16.840.1.085410.3.579.2.7 27 1984 Unknown [id number] 2.16.840.1.161367.3.579.2.7 27 1984 Unknown [id number] 2.16.840.1.054494.3.579.2.7 27 1984 Unknown [id number] 2.16.840.1.623546.3.579.2.7 27 1984 Unknown [id number] 2.16.840.1.482246.3.579.2.7 27 1984 Unknown [id number] 2.16.840.1.232286.3.579.2.7 27 1984 Unknown [id number] 2.16.840.1.332394.3.579.2.7 27 1984 Unknown [id number] 2.16.840.1.041181.3.579.2.7 27 1984 Unknown [id number] 2.16.840.1.464313.3.579.2.7 27 1984 Unknown [id number] 2.16.840.1.521776.3.579.2.7 27 1959 Private Health Insurance [id number] 1.2.840.451527.1.13.239.2.7 .3.790068.315 Unknown [id number] 2.16.840.1.892647.3.579.2.5 31 Social History Date Type Detail Facility Start: 05-31-2020 End: 11-12-2023 Tobacco smoking status NYIS Never smoker [place] Start: 05-31-2020 End: 05-06-2023 Tobacco use and exposure Never used [place] Sex Assigned At Not on file [place] Exposure to SARS-CoV -2 (event) Not sure [place] Tobacco smoking status Never [facility] Start: 07-03-2023 End: 07-04-2023 Sex Assigned At Female [employer] Other Start: 1985 Sex Assigned At Female [facility] Start: 07-31-2023 End: 08-04-2023 Alcohol intake [...] Gender identity Identifies as female gender (finding) [facility] Start: 05-06-2023 Sexual orientation Heterosexual (finding) [facility] Medical Equipment Procedure Code Equipment Code Equipment Origin al Text Equipment Identifier Dates Anterior lumbar interbody fusion (ALIF) STRATOFUSE [id number] FDA Start: 12-06-2019 Anterior lumbar interbody fusion (ALIF) Orthopaedic bone screw, non-bioabsorbable, non-sterile +[id number] FDA Start: 12-06-2019 Anterior lumbar interbody fusion (ALIF) Orthopaedic bone screw, non-bioabsorbable, non-sterile [id number] FDA Start: 12-06-2019 Anterior lumbar interbody fusion (ALIF) Bone-screw internal spinal fixation system, non-sterile +[id number] FDA Start: 12-06-2019 Anterior lumbar interbody fusion (ALIF) Bone-screw internal spinal fixation system, non-sterile +[id number] FDA Start: 12-06-2019 Anterior lumbar interbody fusion (ALIF) Spinal fusion graft kit ()[id number] FDA Start: 12-06-2019 Anterior lumbar interbody fusion (ALIF) Spinal bone screw, non-bioabsorbable ()[id number] FDA Start: 12-06-2019 Anterior lumbar interbody fusion (ALIF) Metallic spinal fusion cage, non-sterile ()[id number] FDA Start: 12-06-2019 Anterior lumbar interbody fusion (ALIF) Bone-screw internal spinal fixation system, non-sterile +[id number] FDA Start: 12-06-2019 Functional Status Date Assessment Result Facility 11-12-2023 Functional Status N/A [facility] 10-07-2023 Functional Status N/A [facility] 07-24-2023 Functional Status N/A [facility] 07-18-2023 Functional Status N/A [facility] [place] 06-24-2023 Functional Status N/A [facility] [place] 06-20-2023 Functional Status N/A [facility] Clinical Notes 04-17-2021 to 10-21-2023 LaboratoryHidenis Puente MD - 08/04/2023 11:20 AM ESTLaboratoryRadiologyLaboratoryLaboratoryLaboratory Note Date & Type Note Facility 10-21-2023 Evaluation + Plan note Diagnostic Tests PendingT3 Free 10/21/23 Future Scheduled TestsLab Miscellaneous-LC 07/24/23 [facility] 10-07-2023 Hospital Discharge instructions Patient Education [...] Treatment for this condition includes: Antibiotic medicine. Znce-iqj-yyazlsj medicines to treat discomfort. Drinking enough water [...] Follow these instructions at home: Medicines Take biuo-por-tphqsnh and prescription medicines only as told by [...] provider. Document Revised: 01/19/2021 Document Reviewed: 01/19/2021 [employer] Patient Education 2022 [employer]. Follow Up Care 10/07/2023 07:28:28 With:JUAN LUIS REES, SAMIR [place] Address: When: only if needed [facility] [place] 08-04-2023 History of Present illness Narrative Subjective [...] per Dr Jonas documented in this encounter [facility] 07-24-2023 Evaluation + Plan note Future Scheduled TestsLab Miscellaneous-LC 2/1/24Echo Transthoracic Complete 07/24/23 [facility] [place] 07-24-2023 Evaluation + Plan note Future Scheduled TestsLab Miscellaneous-LC 07/24/23 [facility] 07-18-2023 Evaluation + Plan note Diagnostic Tests PendingT3 Reverse, Serum 07/18/23Thyroid Perox.tpo Ab 07/18/23TgAb+Thyroglobulin,NIGEL or KELVIN 07/18/23 [facility] 07-18-2023 Hospital Discharge instructions Patient Education [...] surgery. Follow these instructions at home: Take lfjp-gfy-axvikgt and prescription medicines only as told by [...] condition. Where to find more information National [place] of Diabetes and Digestive and Kidney Diseases: [...] provider. Document Revised: 08/02/2022 Document Reviewed: 08/02/2022 [employer] Patient Education 2022 [employer]. Follow Up Care 07/18/2023 07:34:13 With:Nancy BARRIENTOS MD, FAM Address: When: only if needed [facility] [place] 06-21-2023 Evaluation + Plan note Diagnostic Tests PendingT3 Free 06/21/23 Future Scheduled TestsCBC w/ Auto Diff 06/20/23Comprehensive Metabolic Panel 06/20/23Free T4 06/20/23 [facility] 06-20-2023 Hospital Discharge instructions Patient Education [...] few weeks. Home care treatment may include: Xeil-vys-xecfbsm pain relievers. A warm, moist cloth placed over the ear. Severe cases may require a procedure to insert tubes in the ears (tympanostomy tubes) to drain the fluid. Follow these instructions at home: Take curi-kik-laqqrfh and prescription medicines only as told by [...] provider. Document Revised: 10/04/2021 Document Reviewed: 10/04/2021 [employer] Patient Education 2022 [employer]. 06/20/2023 19:03:16 Thyroid Nodule Thyroid Nodule A [...] in your thyroid nodule or nodules. Take jsqt-gup-rebqoet and prescription medicines only as told by [...] provider. Document Revised: 04/22/2022 Document Reviewed: 04/22/2022 [employer] Patient Education 2022 [employer]. Follow Up Care 06/20/2023 07:23:01 With:JUAN LUIS REES, Nancy [facility] Address: [address] [place] [address]- When: Unknown [facility] 06-20-2023 Evaluation + Plan note Future Scheduled TestsT4 Total 06/20/23CBC w/ Auto Diff 06/20/23Comprehensive Metabolic Panel 06/20/23T3 Free 06/20/23T3 Uptake 06/20/23Thyroid Stimulating Hormone 06/20/23Free T4 06/20/23 [facility] 10-01-2022 Note CONSULTATION [...] our patients to inform us about any uzml-tzi-etiyatp medications or herbal remedies/nutritional supplements/alternative remedies. 2. [...] options with their primary care provider. [facility] 06-11-2022 Note CONSULTATION CONSULTATION DATE: [...] and concurs. CC: Nancy Barrientos M.D. [facility] 03-05-2022 Note PAIN MANAGEMENT CONS [...] along this region. CC: Dr. Barrientos [facility] 12-28-2021 Evaluation note Encounter Date [...] follow her up on an as-needed basis [employer] [facility] 06-13-2022 Evaluation + Plan note Diagnostic Tests Pending * Insulin Level Total 12/03/21 * T3 Free 12/03/21 * FSH Level 12/03/21 Future Scheduled Tests Laboratory* [place]21 [facility]05-19-2022 NoteCONSULTATION CONSULTATION DATE: 11/08/2021 This is [...] plan on seeing Dr. Damon in [facility]. Activities that aggravate her neck are [...] of care and would like to proceed. [facility] Signed and Approved by: ISAURA KELLY . 11/12/2021 15:05:00[facility]01-21-2022 Evaluation + Plan note Future Scheduled Tests Laboratory* [place]21 [facility]10-26-2021 Evaluation note* Encounter Date Diagnosis Assessment Notes Treatment Notes Treatment Clinical Notes Mar, Spondylolisthesis at L5-S1 level (ICD-10 - M43.17) I answered a number of questions for the patient. I think a transforaminal injection may be beneficial. I also believe that she could potentially benefit from a dorsal column stimulator. She is seeing a another neurologist at [facility] and I am interested in what medication changes are made. I will see the patient again in 3 months and review this with her. I looked at the picture of the spine today she has good bone formation and her INTERMEDIATE hardware is intact. Because of the persistent [...] region with neurogenic claudication (ICD-10 - M48.062) [employer] Other evaluation + Plan note Future Appointments Appointment Date:06/27/2023 07:30:00 AM Scheduled Provider: Location:.[facility] Appointment Type:US Thyroid/Neck/Chest () Appointment Date:06/27/2023 08:00:00 AM Scheduled Provider: [facility] Appoint[facility] Type:CV EKG () Appointment Date:07/29/2023 12:40:00 PM Scheduled Provider:Nancy BARRIENTOS MD Location:[facility] Appointment Type:FM Open Future Scheduled Tests Laboratory* UA With Cult Reflex 06/24/23 * CBC w/ Auto Diff 06/20/23 * Comprehensive Metabolic Panel 06/20/23 * Lipid Panel 06/24/23 * Free T4 06/20/23 Radiology* US Thyroid 06/27/23 [facility] [place] Evaluation + Plan note Future Appointments Appointment Date:07/29/2023 12:40:00 PM Scheduled Provider:Nancy BARRIENTOS MD Location:[facility] Appointment Type: Open Future Scheduled Tests Laboratory* UA With Cult Reflex 06/24/23 * CBC w/ Auto Diff 06/20/23 * Comprehensive Metabolic Panel 06/20/23 * Lipid Panel 06/24/23 * Free T4 06/20/23 Radiology* US FNA w/ Guidance, first lesion 06/27/23 * NM Thyroid Imaging w/ Uptk Multiple [facility]27[facility]23 [facility] Future Appointments Appointment Date:09/11/2023 08:00:00 AM Scheduled Provider: [facility] Appointment Type:CV Echo (FT) Diagnostic Tests Pending * T3 Free 09/10/23 * Thyrotropin Receptor Antibody, Serum 09/10/23 Future Scheduled Tests Laboratory* Lab Miscellaneous-LC 07/24/23 Radiology* Echo Transthoracic Complete 09/11/23 [facility] note[facility] InformationNort Social Strategy 1 Other evaluation noteNo assessment information available [facility] Work Phone: Evaluation note* Diagnosis Mass [...] ALIF-Doctor Alejandrina Hospitalization History see surgical hx [facility] Other Hospital course Narrative No data available for this section [facility] No data available for this section [facility] No data available for this section [facility] Summary Purpose Family History No Family History Records Found Relationship Condition Age at Onset Recorded Date/T rody Not Specified Healthy female adult Unknown father Osteoarthritis Unknown Degeneration of intervertebral disc Unkno wn Advance Directives No Advanced Directives Records FoundDocuments on File Type Date Recorded 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 * Chest Pain: Musculoskeletal (Occitan) documented in this encounter Assessments Diagnosis Chest wall pain Painful respiration Reason for Referral Reason Evaluate and Treat C onsider for Dorsal Column Stimulator Diagnosis 1 Spondylolisthesis at L5-S1 level (M43.17) Referral Organization [facility] urosurgery Referring Provider First Name Ric Referring Provider Last Name Alejandrina Referring Provider Specialty Neurologica l Surgery Referred Organization Unknown Facility Referred Provider Mansoor Summers Referred Provider Specialty Pain Medicin e Referral Priority Routine Additional Source Comments INFORMATION SOURCE (unrecogn ized section and content) DATE CREATED AUTHOR 01/14/2020 [facility] DATE CREATED AUTHOR AUTHOR'S ORGANIZ ATION 06/01/2020 [facility] DATE CREATED AUTHOR AUTHOR'S ORGANIZ ATION 11/06/2022 [facility] DATE CREATED AUTHOR AUTHOR'S ORGANIZ ATION 08/01/2023 [facility] DATE CREATED AUTHOR AUTHOR'S ORGANIZ ATION 10/22/2023 [facility] Specialists EPIC DATE CREATED AUTHOR AUTHOR'S ORGANIZ ATION 01/17/2024 [facility] Reason for Visit (unrecogniz ed [...] July 14, 2023 End: July 14, 2023 Senior Tableau Developer Relationship Specialty Start Date End Date Nancy Barrientos MD [address] [place] [id number] PCP - General 05/07/23 Senior Tableau Developer Relationship Specialty Start Date End Date Nancy Barrientos MD [address] [place] [phone] PCP - General 05/07/23 Goals (unrecognized section [...] BE BASED ON THE PRIMARY CLINICAL RECORDS. [facility]. provides no warranty or guarantee of the accuracy or completeness of information in this document.
--- NOTE | 2024-02-19 07:57 | P.CN_ITS ---
Consult Note: HPI Data of Consult Patient: known to practice within the last 3 years Requesting Physician: Randi Potts NP Primary Care Provider: Non-Staff Physician, MD Consult Narrative Reason for consult: back pain Narrative: Emily Valiente a pleasant 38 year old female presents for evaluation and management of chronic low back pain and lumbar radiculopathy, hx of lumbar fusion. Patient reporting pain 7/10 increasing to 10/10 with standing walking bending twisting car rides. improved with nothing. Patient has failed PT/HEP greater than 6 weeks. mild relief from baclofen, tizanidine, tramadol, gabapentin. VANI 67% today. Increase in pelvic pressure, denies loss of bowel/bladder. Pain radiating into bilateral thighs, right leg pain radiating in right foot. Patient reporting no relief from medrol dose pack, mild relief from increase in gabapentin but noticing daytime drowsiness. Pain increasing at this time and constant. Lumbar xray and MRI completed which are unremarkable, stable post op changes. cc:: CC: Randi Potts NP Review of Systems ROS Status of ROS 10 or more systems reviewed and unremark able except as noted in history and below Musculoskeletal Reports: back pain and extremity pain; Denies: extremity swelling or joint pain PFSH PFSH Medical History Migraines ?G43.909 - Migraine, unspecified, not intractable, without status migrainosus (ICD-10) Chronic pharyngitis ?J31.2 - Chronic pharyngitis (ICD-10) Endometriosis determined by laparoscopy ?N80.9 - Endometriosis, unspecified (ICD-10) Hyperthyroidism ?E05.90 - Thyrotoxicosis, unspecified without thyrotoxic crisis or storm (ICD-10) Neck pain ?M54.2 - Cervicalgia (ICD-10) Low back pain ?M54.50 - Low back pain, unspecified (ICD-10) Numbness and tingling ?R20.0 - Anesthesia of skin (ICD-10) ?R20.2 - Paresthesia of skin (ICD-10) Surgical History S/P fine needle aspiration ?Z98.890 - Other specified postprocedural states (ICD-10) History of lumbar fusion ?Z98.1 - Arthrodesis status (ICD-10) H/O breast implant ?Z98.82 - Breast implant status (ICD-10) Hx of breast implants, bilateral ?Z98.82 - Breast implant status (ICD-10) Status post lumbar surgery ?Z98.890 - Other specified postprocedural states (ICD-10) H/O: hysterectomy ?Z90.710 - Acquired absence of both cervix and uterus (ICD-10) S/P T&A (status post tonsillectomy and adenoidectomy) ?Z90.89 - Acquired absence of other organs (ICD-10) Hx of laparoscopy ?Z98.890 - Other specified postprocedural states (ICD-10) H/O breast augmentation ?Z98.82 - Breast implant status (ICD-10) Meds Home Medications and Allergies Home Medications ?Medication ?Instructions ?Recorded ?Confirmed ?Type baclofen 10 mg tablet 10 mg PO BID 12/04/22 02/10/24 History oxcarbazepine 300 mg tablet 300 mg PO .HS 12/04/22 02/10/24 History tizanidine 4 mg tablet 4 mg PO .HS 12/04/22 02/10/24 History gabapentin 600 mg tablet 600 mg PO BEDTIME #30 tabs 04/17/23 02/10/24 Rx biotin 1 tab PO DAILY 07/11/23 02/10/24 History estradiol 2 mg tablet 2 mg PO DAILY 07/11/23 02/10/24 History oxcarbazepine 150 mg tablet 150 mg PO DAILY 07/11/23 02/10/24 History tramadol 50 mg tablet 50 mg PO TID PRN pain #90 tabs 12/08/23 02/10/24 Rx gabapentin 300 mg tablet 300 mg PO BID 01/14/24 02/10/24 History rimegepant 75 mg disintegrating 75 mg QDAY PRN migraine headache 01/14/24 History tablet (Nurtec ODT) gabapentin 300 mg capsule 300 mg PO BID #60 caps 02/04/24 02/10/24 Rx amitriptyline 10 mg tablet 10 mg PO DAILY #30 tabs 02/19/24 Rx Allergies Allergy/AdvReac Type Severity Reaction Status Date / Time adhesive Allergy Rash Verified 02/10/24 08:00 latex Allergy Rash Verified 02/10/24 08:00 Exam Constitutional Documenting provider has reviewed patient's vital signs: yes Common normals: no apparent distress, oriented x3, healthy appearing, alert and well nourished General appearance: cooperative HENMT Common normals: normocephalic, hearing grossly normal bilaterally and moist oral mucous membranes Head and scalp: normocephalic Eye Common normals: PERRL Pupil: PERRL Neck & C-Spine Common normals: full ROM General: normal visual inspection Chest Common normals: inspection of chest normal Respiratory Common normals: normal respiratory effort, no retractions and no use of accessory muscles Back & Pelvis Lumbar spine/lower back: ROM limited, pain with ROM and straight leg raise positive right; straight leg raise negative left Sacroiliac joints: SI joints normal Other: decreased sensation following right L4,5,S1 pattern strength in RLE 4/5, 5/5 in LLE Extremity Common normals: normal to inspection and full ROM Neuro Common normals: oriented x3, CN's II-XII intact bilaterally, moves all extremities, no focal motor deficits, no sensory deficits noted and deep tendon reflexes 2+ bilaterally Sensorium/orientation: alert Gait (neuro): antalgic Motor exam: no movement abnormalities noted and strength abnormal Psych Common normals: mental status grossly normal, thought process normal, cooperative, affect normal, speech normal and activity/motor behavior normal Speech: normal speech Thought process: normal thought process Results Additional Findings Additional findings: If on a controlled substance or opioids, I have checked an [place] report on this patient and there are no aberrancies noted in the prescribing history.??If on a controlled substance or opioid a drug screen was completed and reviewed within the last year, and if there has not been a drug screen completed we ordered one today to monitor higher risk, state monitored pain medication use. As part of providing excellent, safe, comprehensive care, the following was completed at our patient's visit: 1. A medication reconciliation and review to ensure accurate knowledge of current/active medications, including asking our patients to inform us about any [id number] medications or herbal remedies/nutritional supplements/alternative remedies. 2. A review to specifically ensure our patients have had annual screening for screening for depression, screening for tobacco use, and screening for unhealthy alcohol use. For concerning screenings had a discussion with the patient, provided patient education, and recommended follow-up with primary care provider when appropriate. If patient noted with a risk of falling, they received education on strength, gait, and balance training to prevent future risk of falling. Assessment and Plan Assessment and Plan (1) Lumbar radiculopathy: (2) Failed back syndrome: (3) Chronic prescription opiate use: Assessment and Plan: I feel these medications are improving the patient's quality of life and allow them to tolerate activities of daily living as well as participate in recreational activity.? The patient does not report intolerable side effects. The patient is NOT opioid naive and non-pharmacologic and non-opioid treatment has failed to significantly relieve the patient's pain and improve functionality. The patient has a diagnosis that is related to a somatic or visceral pain etiology. ? ?? I reviewed with the patient the potential risks and side effects with the use of? opioid medications including but not limited to respiratory depression,? sedation, and even . I verified the patient has access to naloxone should? these effects occur. I advised the patient to avoid the use of any other? sedation substances including alcohol, THC, and benzodiazepines while? taking opioid medications due to the risk of compounding side effects and? detrimental outcomes. I reviewed the SUSTAINABLE DEVELOPMENT POLICY ANALYST, pain treatment agreement, urine? drug screen, and opioid start talking forms. The patient was advised to let? their family know they had Naloxone in case they would need to administer? the medication.? ?? A drug screen was completed within the last year, and no aberrancies were noted regarding their use of controlled substances. The patient understands they are subject to the terms and conditions of the pain contract that they have signed. ? ?? I have checked an [place] report on this patient today and there are no aberrancies noted in the prescribing history.? (4) Muscle spasm: Plan caudal NICO under fluoroscopy for lumbar radiculopathy and failed back syndrome, risks vs benefits reviewed not interested in spinal cord stimulation start amitriptyline 10mg AM decrease gabapentin 300mg once mid day and continue gabapentin 600mg HS continue tramadol 50mg TID PRN moderate to severe pain EMG NCV of BLE, refer to neurology based on results. currently following with Dr Arambula f/u after NICO
== END 2024-02-19 07:44 | disposition home or self-care (01) ==
PROVIDERS: Visit Provider Nurse Practitioner
DX: M54.16 Radiculopathy, lumbar region (principal); M96.1 Postlaminectomy syndrome, not elsewhere classified; Z79.891 Long term (current) use of opiate analgesic; M62.838 Other muscle spasm
CPT/HCPCS: G0463

== ENCOUNTER 2024-03-09 09:07 | Day surgery (SDC) | payer MEDICAID, SELFPAY ==
[2024-03-09 09:44] VITALS: BP 104/75; PULSE 66; TEMP 36.6; O2SAT 100
[2024-03-09 10:18] VITALS: BP 117/69; PULSE 60; O2SAT 96
[2024-03-09 10:20] VITALS: BP 115/73; PULSE 62; O2SAT 96
[2024-03-09] MEDS: IOHEXOL 240 MG/ML - 10 ML VIAL 24 MG IV (10:26)
[2024-03-09] MEDS: BUPIVACAINE HCL 0.25% PF 25 MG/10 ML VIAL 2 ML INJ (10:26)
[2024-03-09] MEDS: LIDOCAINE HCL 2% 400 MG/20 ML MDV INJ (10:26)
[2024-03-09] MEDS: 0.9 % SODIUM CHLORIDE 10 ML SYRINGE - SALINE FLUSH 2 ML INJ (10:26)
[2024-03-09] MEDS: METHYLPREDNISOLONE ACETATE 80 MG/ML VIAL INJ (10:27)
--- NOTE | 2024-03-09 10:45 | W.PM.PROCNOT ---
Date of procedure: 03/09/24 Pre-op diagnosis: Lumbar radiculopathy Post-op diagnosis: same as pre-op Procedure: Caudal Epidural Steroid Injection With catheter advancement Pre-operative diagnosis includes Radiculopathy, Postoperative diagnosis same, Under fluoroscopic guidance Solution used for the injection is Marcaine 0.25% Depo-Medrol 80 mg total of 5ml Omnipaque 3cc,3ml total, 1ml was used for injection to confirm needle tip placement and catheter tip placement within the epidural space. catheter was removed with the tip intact. Anesthesia: local anesthesia using 2% lidocaine, total no more than 5 mL. Timeout process compliant After obtaining informed consent .the patient was brought to the procedure room .placed in the prone position . the area was prepped and draped in a sterile fashion utilizing betadine. 25 gauge needle was used to create a skin wheal over the sacral hiatus identified under fluoroscopy. 17 gauge touhy needle was inserted over the anesthetized area and directed to the [place] hiatus under fluoroscopic guidance. after piercing the sacrococcygeal ligament. Confirmation of needle tip placement within the epidural space was accomplished with injection of contrast solution in AP and Lateral views. Epidural catheter was advanced to the L5 level .catheter placement confirmed with injection of contrast solution . the steroid solution was then injected .needle and catheter was removed post procedurally. patient transferred to recovery area in stable condition. Discharged home after meeting criteria. Anesthesia: Local Surgeon: Sharona Thompson Condition: stable
== END 2024-03-09 10:29 | disposition home or self-care (01) ==
PROVIDERS: Visit Provider Anesthesiology Pain Medicine
DX: M54.16 Radiculopathy, lumbar region (principal)
CPT/HCPCS: 62323; J0665; J1010; Q9966

== ENCOUNTER 2024-03-18 07:53 | Outpatient (OUT) | payer MEDICAID, SELFPAY ==
--- NOTE | 2024-03-18 08:07 | P.CN_ITS ---
Consult Note: HPI Data of Consult Patient: known to practice within the last 3 years Requesting Physician: Randi Potts NP Primary Care Provider: Non-Staff Physician, MD Consult Narrative Reason for consult: back pain Narrative: Emily Valiente a pleasant 38 year old female presents for evaluation and management of chronic low back pain and lumbar radiculopathy, hx of lumbar fusion. Patient reporting pain 6/10 increasing to 10/10 with standing walking bending twisting car rides. improved with nothing. Patient has failed PT/HEP greater than 6 weeks. mild relief from baclofen, tizanidine, tramadol, gabapentin. failed amitriptyline 10mg daily due to severe drowsiness. VANI 60% today. Pain increasing at this time and constant. Lumbar xray and MRI completed which are unremarkable, stable post op changes. EMG consistent with chronic right s1/2 radiculopathy. recent caudal NICO, patient reporting 50% improvement but pain still 6/10 increasing to 10/10 and VANI 60%. cc:: CC: Randi Potts NP Review of Systems ROS Status of ROS 10 or more systems reviewed and unremark able except as noted in history and below Musculoskeletal Reports: back pain, extremity pain and joint pain PFSH PFSH Medical History Migraines ?G43.909 - Migraine, unspecified, not intractable, without status migrainosus (ICD-10) Chronic pharyngitis ?J31.2 - Chronic pharyngitis (ICD-10) Endometriosis determined by laparoscopy ?N80.9 - Endometriosis, unspecified (ICD-10) Hyperthyroidism ?E05.90 - Thyrotoxicosis, unspecified without thyrotoxic crisis or storm (ICD-10) Neck pain ?M54.2 - Cervicalgia (ICD-10) Low back pain ?M54.50 - Low back pain, unspecified (ICD-10) Numbness and tingling ?R20.0 - Anesthesia of skin (ICD-10) ?R20.2 - Paresthesia of skin (ICD-10) Surgical History S/P fine needle aspiration ?Z98.890 - Other specified postprocedural states (ICD-10) History of lumbar fusion ?Z98.1 - Arthrodesis status (ICD-10) H/O breast implant ?Z98.82 - Breast implant status (ICD-10) Hx of breast implants, bilateral ?Z98.82 - Breast implant status (ICD-10) Status post lumbar surgery ?Z98.890 - Other specified postprocedural states (ICD-10) H/O: hysterectomy ?Z90.710 - Acquired absence of both cervix and uterus (ICD-10) S/P T&A (status post tonsillectomy and adenoidectomy) ?Z90.89 - Acquired absence of other organs (ICD-10) Hx of laparoscopy ?Z98.890 - Other specified postprocedural states (ICD-10) H/O breast augmentation ?Z98.82 - Breast implant status (ICD-10) Meds Home Medications and Allergies Home Medications ?Medication ?Instructions ?Recorded ?Confirmed ?Type baclofen 10 mg tablet 10 mg PO BID 12/04/22 03/09/24 History oxcarbazepine 300 mg tablet 300 mg PO .HS 12/04/22 03/09/24 History tizanidine 4 mg tablet 4 mg PO .HS 12/04/22 03/09/24 History gabapentin 600 mg tablet 600 mg PO BEDTIME #30 tabs 04/17/23 03/09/24 Rx estradiol 2 mg tablet 2 mg PO DAILY 07/11/23 03/09/24 History oxcarbazepine 150 mg tablet 150 mg PO DAILY 07/11/23 03/09/24 History tramadol 50 mg tablet 50 mg PO TID PRN pain #90 tabs 12/08/23 03/09/24 Rx rimegepant 75 mg disintegrating 75 mg QDAY PRN migraine headache 01/14/24 History tablet (Nurtec ODT) gabapentin 300 mg capsule 300 mg PO BID #60 caps 02/04/24 03/09/24 Rx Allergies Allergy/AdvReac Type Severity Reaction Status Date / Time adhesive Allergy Rash Verified 03/09/24 09:45 latex Allergy Rash Verified 03/09/24 09:45 Exam Constitutional Documenting provider has reviewed patient's vital signs: yes Common normals: no apparent distress, oriented x3, healthy appearing, alert and well nourished General appearance: cooperative HENMT Common normals: normocephalic, hearing grossly normal bilaterally and moist oral mucous membranes Head and scalp: normocephalic Eye Common normals: PERRL Pupil: PERRL Neck & C-Spine Common normals: full ROM General: normal visual inspection Chest Common normals: inspection of chest normal Respiratory Common normals: normal respiratory effort, no retractions and no use of accessory muscles Back & Pelvis Lumbar spine/lower back: ROM limited, pain with ROM and straight leg raise positive right; straight leg raise negative left Sacroiliac joints: SI joint(s) abnormal Other: bilateral sij positive vinicio(patricks), gaenslens, thigh thrust, compression test, left greater than right strength in RLE 4/5, 5/5 in LLE Extremity Common normals: normal to inspection and full ROM Neuro Common normals: oriented x3, CN's II-XII intact bilaterally, moves all extremities, no focal motor deficits, no sensory deficits noted and deep tendon reflexes 2+ bilaterally Sensorium/orientation: alert Gait (neuro): antalgic Motor exam: no movement abnormalities noted and strength abnormal Psych Common normals: mental status grossly normal, thought process normal, cooperative, affect normal, speech normal and activity/motor behavior normal Speech: normal speech Thought process: normal thought process Assessment and Plan Assessment and Plan (1) Sacroiliitis: (2) Lumbar radiculopathy: (3) Failed back syndrome: (4) Muscle spasm: (5) Chronic right shoulder pain: (6) Cervical paraspinal muscle spasm: (7) Cervical spondylosis: (8) Cervical radiculopathy: (9) Chronic prescription opiate use: Assessment and Plan: I feel these medications are improving the patient's quality of life and allow them to tolerate activities of daily living as well as participate in recreational activity.? The patient does not report intolerable side effects. The patient is *OT opioid naive and non-pharmacologic and non-opioid treatment has failed to significantly relieve the patient's pain and improve functionality. The patient has a diagnosis that is related to a somatic or visceral pain etiology. ? ?? I reviewed with the patient the potential risks and side effects with the use of? opioid medications including but not limited to respiratory depression,? sedation, and even . I verified the patient has access to naloxone should? these effects occur. I advised the patient to avoid the use of any other? sedation substances including alcohol, THC, and benzodiazepines while? taking opioid medications due to the risk of compounding side effects and? detrimental outcomes. 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 drug screen, and opioid start talking forms. The patient was advised to let? their family know they had Naloxone in case they would need to administer? the medication.? ?? A drug screen was completed within the last year, and no aberrancies were noted regarding their use of controlled substances. The patient understands they are subject to the terms and conditions of the pain contract that they have signed. ? ?? I have checked an [place] report on this patient today and there are no aberrancies noted in the prescribing history.? Plan proceed with bilateral SIJ injection under fluoroscopy for sacroilitis with Dr Alegria i would like pt to f/u with Dr Alegria to evaluate possibility of sacral TFESIs, patient has no interest in spinal cord stimulator trial or implant difficult medication management due to drowsiness and side effects with medications, at this time continue baclofen 10mg BID PRN Daytime, tizanidine 4mg HS PRN, tramadol 50mg TID, gabapentin 300mg AM 300mg midday and 600mg HS cannot tolerate higher doses. discontinue amitriptyline unfortunately limited options going forward f/u 2 weeks after SIJ injection with Dr Alegria
== END 2024-03-18 07:54 | disposition home or self-care (01) ==
LOC: PM 07:53
PROVIDERS: Visit Provider Nurse Practitioner
DX: M46.1 Sacroiliitis, not elsewhere classified (principal); M54.16 Radiculopathy, lumbar region; M96.1 Postlaminectomy syndrome, not elsewhere classified; M62.838 Other muscle spasm; M25.511 Pain in right shoulder; M47.812 Spondylosis without myelopathy or radiculopathy, cervical region; M54.12 Radiculopathy, cervical region; Z79.891 Long term (current) use of opiate analgesic
CPT/HCPCS: G0463

== ENCOUNTER 2024-03-29 08:02 | Day surgery (SDC) | payer MEDICAID, SELFPAY ==
--- OUTSIDE RECORDS SUMMARY | 2024-03-29 08:08 | XMS_ITS | CCD ---
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 Name Role Phone UNKNOWN, PROVIDER Admitting Unavailable UNKNOWN, PROVIDER Attending Unavailable UNKNOWN, PHYSICIAN Referring Unavailable UNKNOWN, PHYSICIAN Primary Care Unavailable Nancy Barrientos Primary Care Provider KATHY GHOSH Attending Unavailable NANCY BARRIENTOS Primary Care Unavailable Nancy BARRIENTOS Primary Care Physician [phone] Ric Tinoco Unavailable JOSEFA ., DR HERB [...] Puente Jr Attending Provider UnaMarta Killian Jr H Attending Unavailable Marta Puente Jr H Admitting Unavailable Ruben Barrientos Primary Care Unavailable Nancy Barrientos MD Primary Care Provider Nancy BARRIENTOS Primary Care Physician [phone] MD Kali Paul Attending Unavailable MD Kali [...] Attending Unavailable MD Kali Paul Referring Unavailable Timmis, Marta H Admitting Unavailable Timmis Marta H Attending Unavailable Ray, Marta H Referring Unavailable MD Kali Paul Attending Unavailable MD Kali Paul Referring Unavailable MD Kali Paul Admitting Unavailable Filiberto Cramer Attending Unavailable MD Kali Paul Attending Unavailable MD Kali Paul Attending Unavailable TIMMIS, MARTA H Attending Unavailable KALI PAUL Referring Unavailable KRAIG PARK Attending Unavailable TIMMIS, MARTA H Attending Unavailable NANCY BARRIENTOS Referring Unavailable PETRA MORELAND Attending Unavailable MARTA PUENTE Attending Unavailable EDWIN BISWAS Attending Unavailable EBER CASTANEDA Referring Unavailable Allergies Allergy Classification Reported Allergen(s) Allergy Type Date of Onset Reaction(s) Facility (1 source) Adhesive agent; Translations: [Unknown] Propensity to adverse reactions (disorder) 9 [facility] Repository (18 sources) Adhesive Tape; Translations: [Tape] Drug allergy Eruption of skin (disorder) [facility] (20 sources) Latex; Translations: [Latex] Drug allergy [address] [facility] Other (3 sources) adhesive bandages Propensity to adverse reactions [facility] Other (1 source) Adhesive agent Drug allergy (disorder) 6 [facility] Repository (1 source) Adhesive agent Drug allergy (disorder) 2 [facility] Repository (1 source) Adhesive Tape Drug allergy (disorder) 0 [facility] Repository (3 sources) Wound Dressing Adhesive Drug Allergy 5 Rash [facility] Healthcare Medications Current Medications Medication Drug Class(es) [...] cap(s), Refills(s) 0, Pharmacy: [facility], 168, cm, 07/11/20 8:27:00 EST, [...] tab(s), Refills(s) 1, Pharmacy: [facility], 168, cm, 07/11/20 8:27:00 EST, [...] nasal route once daily Flonase 0.05 mg/inh Devens 2 spray(s), Nasal, Daily for 7 day(s), 16 gm, Refill(s) 0, each nostril, [facility], 168, cm, 06/20/23 18:45:00 EST, [...] BID, # 180 tab(s), Refills(s) 1, Pharmacy: [facility], 168, cm, 07/11/20 8:27:00 EST, Height/Length Dosing, 64.1, kg, 07/11/20 8:27:00 EST, Weight Dosing Start Date: 08/22/20 Status: Ordered loratadine 10 mg oral tablet (3 sources) Start: 02-23-2020 take 1 tablet by mouth once daily loratadine 10 mg Tab 10 mg = 1 tab(s), Oral, Daily, # 90 tab(s), Refills(s) 1, Pharmacy: [facility], 168, cm, 02/23/20 10:40:00 EDT, Height/Length Dosing, 65, kg, 02/23/20 10:40:00 EDT, Weight Dosing Start Date: 02/23/20 Status: Ordered Start: 11-30-2019 take 1 capsule by [facility] once daily loratadine (CLARITIN) [...] Nausea/Vomiting, # 10 tab(s), Refills(s) 0, Pharmacy: [facility], 168, cm, 07/10/20 13:24:00 EST, [...] symptoms, # 30 tab(s), Refills(s) 0, Pharmacy: [facility], 168, cm, 10/07/23 10:32:00 EDT, Height/Length Dosing, 61, kg, 10/07/23 10:32:00 EDT, Weight Dosing Start Date: 10/07/23 Status: Ordered Start: 05-26-2020 take 1 tablet by jaden th twice daily as needed oxybutynin 5 mg Tab 5 mg = 1 tab(s), Oral, BID, PRN for urinary discomfort, # 60 tab(s), Refills(s) 2, Pharmacy: [facility], 168, cm, 05/26/20 16:32:00 EST, Height/Length Dosing, 64, kg, 05/26/20 16:32:00 EST, Weight Dosing Start Date: 05/26/20 Status: Ordered take 1 tablet by jaden th every twenty-four hours in the morning oxybutynin XL (Ditropan-XL) 5 MG 24 hr tablet Take 5 mg by mouth in the morning. 0 Active take 1 tablet by once daily oxybutynin (DITROPAN-XL) 5 MG extended [...] tab(s), Refills(s) 5, Pharmacy: [facility], 168, cm, 07/11/20 8:27:00 EST, [...] tab(s), Refills(s) 0, Pharmacy: [facility], 168, cm, 07/24/23 13:48:00 EST, [...] tab(s), Refills(s) 5, Pharmacy: [facility], 168, cm, 07/11/20 8:27:00 EST, [...] tab(s), Refills(s) 2, Pharmacy: [facility], 168, cm, 11/08/21 9:50:00 EDT, Height/Length Dosing, 65.4, kg, 11/08/21 9:50:00 EDT, Weight Dosing Start Date: 01/18/22 Status: Ordered Start: 11-23-2020 take 1 tablet by jaden twice daily valacyclovir 1 g Tab 1 gram = 1 tab(s), Oral, BID, # 60 tab(s), Refills(s) 2, Pharmacy: [facility], 168, cm, 07/11/20 8:27:00 EST, Height/Length Dosing, 64.1, kg, 07/11/20 8:27:00 EST, Weight Dosing Start Date: 11/23/20 Status: Ordered Start: 11-23-2020 take 1 tablet by jaden th twice daily valacyclovir 1 g Tab 1 gram = 1 tab(s), Oral, BID, # 60 tab(s), Refills(s) 2, Pharmacy: [facility], 168, cm, 07/11/20 8:27:00 EST, Height/Length Dosing, 64.1, kg, 07/11/20 8:27:00 EST, Weight Dosing Start Date: 11/23/20 Status: Ordered Completed/Discontinued Medications Medication Drug Class(es) Dates Sig (Normalized) Sig (Original) acetaminophen 325 mg / HYDROcodone bitartrate 5 mg oral tablet (2 sources) Opioid Agonist Start: 09-12-2017 End: 11-30-2019 take 1 tablet by mouth every four to six hours Hydrocodone-Acetami nophen (Altmar) 5-325 mg tablet Discontinued 1 TAB PO EVERY 4-6 HOURS 30 September 12, 2017 November 30, 2019 9:37am Start: 09-04-2017 End: 09-12-2017 take 1 tablet by mouth once daily at bedtime Hydrocodone-Acetaminophen (Altmar) 5-325 mg Tablet Discontinued 1 TAB PO [...] Landen Christian DO Transcribed by: YAMINI Technologist: KELSI Desirae [facility]enton 11-12-2023 Consent [id number]#1.00TIFF Normal [facility] Consent [id number]#1.00TIFF [facility] Family Medicine Office/Clini c Noteon 11-12-2023 [...] with voice recognition artificial intelligence software, specifically DZZOM, Miroi and or Bocandy. Substitutions may have occurred due to the inherent limitations of voice recognition and artificial intelligence software. Documentation services were performed after patient or guardian consented to allow [employer] to record this visit. Memory[employer]ist[employer] information specialist Perlita Dominguez and provider reviewed before [...] per year, 06/24/2023 Employment/School Employed, Work/School description: [employer] 02/01/2019 Home/Environment Lives with Children, Spouse., 02/01/2019 Substance Abuse - Denies Substance Abuse, 12/11/2012 Household substance abuse concerns: No., 06/24/2023 Tobacco - Denies Tobacco Use, 12/11/2012 Never (less than 100 in lifetime) Tobacco Use:. Never Smokeless Tobacco Use:. Household tobacco concerns: No., 11/12/2023 Family History Depression: Mother. Hepatitis C: Sister. Immunizations Vaccine Date Status Comments influenza viru (more content not included)... Normal [facility] Comment on above: Result Comment: Elec tronically Signed By: Paul Bass MD\.br\Date and Time Signed: 11/12/23 14:07 EDT\.br\Electronically Co-Signed By: Tyrone Garcia\.br\Date and Time Co-Signed: 11/12/23 13:40 EDT T3 Freeon 10-22-2023 Free T3 [Mass/Vol] 2.9 pg/mL Invalid Interpretation Code 2.0-4.4 [facility] Comment on above: Result Comment: Perf ormed at: [facility] [id number] [place], [place] [id number] PhD Mahnaz Conklin Performed By: #### 2 714113, 3092605, [id number] ####[address] [place] [address] CHEMISTRYOrdered By: SYSTEM SYSTEM on 10-21-2023 Free T4 [Mass/Vol] 0.65 ng/dL Normal 0.58 - 1.64 ng/dL Remisol Chem TSH Qn 4.41 m[IU]/L Normal 0.34 - 5.60 mcIU/mL Remisol Chem Consent for Treatmenton 09-23 Consent for Treatment [id number]#1.00TIFF Normal [facility] Free T4on 10-21-2023 Free T4 [Mass/Vol] 0.65 ng/dL Normal 0.58-1.64 [facility] Comment on above: Performed By: #### 2 795903, 9863867, 1648930 ####[facility] [address] [place] [address] Physician Orderon 10-21-2023 Physician Order [id number]#1.00TIFF Normal [facility] TSHon 10-21-2023 TSH Qn 4.41 m[IU]/L Normal 0.34-5.60 [facility] Comment on above: Performed By: #### 2 149268, 6147963, 6076297 ####[facility] [address] [place] [address] Ambulatory Visit Summaryon 0 10-07-2023 Ambulatory Visit [...] Removal of sebaceous cyst (06/19/2018), Breast augmentation (2007), laparoscopy, lumbar microdisectomy, wisdom teeth extracted. Discharge [...] urinary discomfort for bladder symptoms Pickup at [facility] Unchanged baclofen (baclofen 10 mg Tab) See [...] physician if questions or concerns Pharmacy Information [facility]: [address] [phone] Allergies Latex Tape (Rash) Problems Ongoing - [...] have a (more content not included)... Normal [facility] Family Medicine Office/Clini c Noteon 10-07-2023 [...] two weeks, she has not utilized any zzbp-icw-kjfhmri or old antibiotics, nor has she utilized [...] week. She is seeing Dr. Jonas in [place] for her thyroid. She has been trying [...] Urnls Dip Stick Auto w/o Microscopy POC 51358 2. Thyroiditis, subacute (E06.1: Subacute thyroiditis) Continue following with Dr. Jonas in [place] for management of the methimazole. 3. Lumbar [...] symptoms, # 30 tab(s), Refills(s) 0, Pharmacy: [facility], 168, cm, 10/07/23 10:32:00 EDT, Height/Length Dosing, 61, kg, 10/07/23 10:32:00 EDT, Weight Dosing Portions of this record may have been created with voice recognition artificial intelligence software, specifically DZZOM, Miroi and or Bocandy. Substitutions may have occurred due to the inherent limitations of voice recognition and artificial intelligence software. Follow-up With When Contact Information Nancy BARRIENTOS MD, [facility] Only if needed Additional Instructions: Patient Education [...] Anterior lumba (more content not included)... Normal [facility] Comment on above: Result Comment: Elec [...] this condition includes: ? Antibiotic medicine. ? Uhdi-xyx-qdndiwo medicines to treat discomfort. ? Drinking enough [...] these instructions at home: Medicines ? Take kuxb-gwu-vludixd and prescription medicines only as told by [...] Document Revie (more content not included)... Normal [facility] T3 Freeon 09-13-2023 Free T3 [Mass/Vol] 1.5 pg/mL Low 2.0-4.4 [facility] Comment on above: Result Comment: Perf ormed at: [facility] [id number] [place], [place] [id number] PhD Mahnaz Conklin Performed By: #### 2 357225, [id number], 9232460, 9104711, 3702981 ####[facility] [address] [place] [address] Thyrotropin Receptor Antibod y, Serumon 09-13-2023 TSH receptor Ab Qn (S) <1.10 Invalid Interpretation Code 0.00-1.75 [facility] Comment on above: Result Comment: Perf ormed at: [facility] [address] [id number] MD Enrico Dean Performed By: #### 2 894280, [id number], 2104177, 5175721, 3014902 ####[facility] [address] [place] [address] CHEMISTRYOrdered By: SYSTEM SYSTEM on 09-10-2023 Albumin [...] for Treatmenton 08-22 Consent for Treatment [id number]#1.00TIFF Normal [facility] Free T4on 09-10-2023 Free T4 [Mass/Vol] ng/dL Low 0.58-1.64 [facility] Comment on above: Performed By: #### 2 084991, [id number], 4349039, 6036156, 5251324 ####[facility] [address] [place] [address] Hep Func Panelon 09-10-2023 Albumin [Mass/Vol] 4.2 g/dL Normal 3.3-5.0 [facility] Comment on above: Performed By: #### 2 788455, 7198145585, 5489868, 3072565, 1538682 ####[facility] [address] [place] [address] Albumin/Globulin (S) [Mass conc ratio] 1.4 Normal 1.1-2.2 [facility] Comment on above: Performed By: #### 2 585039, 0814190284, 1305998, 2317167, 3089695 ####[facility] [address] [place] [address] ALP [Catalytic activity/Vol] 66 Int._Unit/L Normal 21-98 [facility] Comment on above: Performed By: #### 2 882222, 6480503327, 9764397, 3288240, 8003076 ####[facility] [address] [place] [address] ALT No additional P-5'-P [Catalytic activity/Vol] 14 Int._Unit/L Normal 6-46 [facility] Comment on above: Performed By: #### 2 756844, 5292734845, 5228829, 2206946, 6486790 ####[facility] [address] [place] [address] AST [Catalytic activity/Vol] 22 Int._Unit/L Normal 5-43 [facility] Comment on above: Performed By: #### 2 246062, 7142748439, 9352975, 3869180, 1550750 ####[place] [address] Bilirubin [Mass/Vol] 0.5 mg/dL Normal 0.0-1.1 [facility] Comment on above: Performed By: #### 2 088800, 6204378739, 3719125, 2982979, 8075522 ####[place] [address] [address] Bilirubin.direct [Mass/Vol] 0.1 mg/dL Normal 0.0-0.4 [facility] Comment on above: Performed By: #### 2 353420, 6222686618, 0754290, 1481455, 3515966 ####[place] Bilirubin.indirect [Mass or moles/Vol] 0.4 mg/dL Normal 0.1-0.9 [facility] Comment on above: Performed By: #### 2 408962, 9502869061, 0094500, 1506969, 7784074 ####[place] [address] Globulin (S) [Mass/Vol] 3.0 g/dL Normal 1.4-4.0 [facility] Comment on above: Performed By: #### 2 988019, 2312342107, 0913580, 3449104, 6907852 ####[place] Protein [Mass/Vol] 7.2 g/dL Normal 6.0-7.8 [facility] Comment on above: Performed By: #### 2 939380, 4788251105, 7065632, 4260481, 0529290 ####[facility] [address] [place] [address] Physician Orderon 09-10-2023 Physician Order [id number]#1.00TIFF Normal [facility] TSHon 09-10-2023 TSH Qn 68.80 m[IU]/L High 0.34-5.60 [facility] Comment on above: Performed By: #### 2 462856, 0340285713, 6863958, 8939781, 4061437 ####[facility] [address] [place] [address] Consultation Noteon 08-12-19 Consultation Note [id number]#1.00TIFF Normal [facility] Insurance Correspondenceon 0 08-05-2023 Insurance Correspondence [id number]#1.00TIFF Normal [facility] Consultation Noteon 08-04-19 Consultation Note [id number]#1.00TIFF Normal [facility] .Thyroglobulin by RIAon 07-24 Thyroglobulin [Mass/Vol] 159 ng/mL High [facility] Comment on above: Result Comment: Conf irmed by dilution. This test was developed and its performance characteristics determined by [employer]. It has not been cleared or [...] quantitation limit is 2.0 ng/mL. Performed at: [address] [place], [place] [id number] MD Yadiel Cornell Performed By: #### 7 26557644, 8416897, 36587448, 3171814, 861665182, 07247612 ####[facility] [address] [place] [address] T3 Reverseon 08-02-2023 T3.reverse [Mass/Vol] 31.2 ng/dL High 9.2-24.1 [facility] Comment on above: Result Comment: This test was developed and its performance characteristics determined by [facility]. It has not been cleared or approved by the Food and Drug Administration. Performed at: [address] [id number] MD Enrico Dean Performed By: #### 7 [id number], 7997673, 42970019, 4805171, 887864791, 94848759 ####[facility] [address] [place] [address] TgAb+Thyroglobulinon 024 Thyroglobulin Ab Qn 2.7 International_Unit /mL High 0.0-0.9 [facility] Comment on above: Result Comment: Thyr oglobulin Antibody measured by Nakul Leslie Methodology Performed at: [address] [id number] PhD Mahnaz Conklin Performed By: #### 7 50727828, 6909954, 99062676, 7978796, 670302597, 16412725 ####[facility] [address] [place] [address] Thyroid Perox.tpo Abon 08-02 TPO Ab Qn [IU]/mL Invalid Interpretation Code 0-34 [facility] Comment on above: Result Comment: Perf ormed at: [address] [id number] PhD Mahnaz Conklin Performed By: #### 7 [id number], 0542076, 69630070, 7097722, 386383166, 17754231 ####[facility] [address] [place] [address] Family Medicine Office/Clini c Noteon 07-29-2023 Family [...] and imagi (more content not included)... Normal [facility] Comment on above: Result Comment: Elec tronically Signed By: Paul Bass MD\.br\Date and Time Signed: 07/29/23 18:15 EST\.br\Electronically Co-Signed By: Jaja Alex\.br\Date and Time Co-Signed: 07/24/23 18:17 EST Interdisciplinary Note - Soc ial Workeron 07-28-2023 Interdisciplinary Note - Park Guide This SW made a tc to patient [...] needs arise. SW will remain available. Normal [facility] Ambulatory Visit Summaryon 0 07-24-2023 Ambulatory Visit Summary AYE JESSICA L :1985 Visit Date:07/24/2023 Ambulatory Visit Instructions Your [...] hormone level, Print Label By Order Location, 848611\.br\ Echo Transthoracic Complete, 07/24/23, Routine, Order for future visit, Transport Mode: Ambulatory, Reason: Other (please specify), Reason: murmur, Heart murmur, pp_set_radiology_ subspecialty, [facility]\.br\ Medications\.br\ What How Much When Instructions\.br\ New propranolol (propranolol 10 mg Tab) 1 Tablets By Mouth Once Pickup at [facility]\.br\ Unchanged baclofen (baclofen 10 mg Tab) See [...] if questions or concerns \.br\ Pharmacy Information\.br\ [facility]: [address] [phone]\.br\ Allergies\.br\ Latex\.br\ Tape (Rash)\.br\ Problems\.br\ Ongoing - [...] for choosing us for your care.\.br\ \.br\ [facility] Ambulatory Visit Summaryon 0 07-18-2023 Ambulatory Visit Summary ANNE MARIE GRIFFITHSANDRA Holt :1985 Visit Date:07/18/2023 Ambulatory Visit Instructions Your [...] Appointments Follow Up with Nancy BARRIENTOS MD, [facility] When: Only if needed Where: Medications What [...] You smoke (more content not included)... Normal [facility] CHEMISTRYOrdered By: SYSTEM SYSTEM on 07-18-2023 Free T4 [Mass/Vol] 2.22 ng/dL High 0.58 - 1.64 ng/dL Remisol Chem TSH Qn 0.01 m[IU]/L Low 0.34 - 5.60 mcIU/mL Remisol Chem Clipboard Summaryon 07-18-19 Clipboard Summary {40-di-b5-2d-15-1c -71-4j-a5-9a-b9-6d -cb-25-c2-ac}XML Normal [facility] Consent for Treatmenton 06-24 Consent for Treatment [id number]#1.00TIFF Normal [facility] Family Medicine Office/Clini c Noteon 07-18-2023 [...] and had a biopsy on Friday at [facility], carried out by the radiology department interventional [...] Nonicteric sclera. Oropharynx pink and moist. Adequate [place] dentition. Anterior neck, there is a fullness [...] the pathology report on her phone from [facility] which indicates benign cellularity although admittedly [...] Dysphagia, unspecified) (more content not included)... Normal [facility] Comment on above: Result Comment: Elec tronically Signed By: JUAN LUIS ERES, Nancy\.br\Date and Time Signed: 07/18/23 19:02 EST Free T4on 07-18-2023 Free T4 [Mass/Vol] 2.22 ng/dL High 0.58-1.64 [facility] Comment on above: Performed By: #### 7 [id number], 3724405, 36598879, 0577119, 931963122, 36439045 #### [facility] [address] [place] [address] Patient Educationon 07-18-19 24 Patient Education Endocrinology [...] Follow these instructions at home: ? Take qcjv-cex-cscquwu and prescription medicines only as told by [...] Where to find more information ? National [place] of Diabetes and Digestive and Kidney Diseases: [...] as u (more content not included)... Normal [facility] TSHon 07-18-2023 TSH Qn 0.01 m[IU]/L Low 0.34-5.60 [facility] Comment on above: Performed By: #### 7 [id number], 5493317, 05015911, 2099080, 310847036, 66476226 #### [facility] [address] [place] [address] Mata 07-14-2023 L Specimen: BC- Received: 07/15/23 Status: DENA Sifuentes Num: [id number] Spec Type: Cytology Subm Dr: MARTA PUENTE MD Tissues: A FNA SLIDES NOPATH (LT THYROID NOD) Procedures: Cyto Int and Re, PAPSTN/5 Age/ Patient Sex Location Account Attending Physician Jessica Griffiths 37/F LABELL [id number] MARTA PUENTE MD SPEC NUM: [id number] RECD: 07/15/23 STATUS: DENA SIFUENTES NUM: [id number] KANCHAN: 07/14/23 DR: MARTA PUENTE MD ENTERED: 07/15/23 [facility] DR: Richie,Lab SPEC TYPE: Cytology DEPT: [facility] ENTERED BY: [id number] RECV BY: [id number] ORDERED: Cyto Int and Re, PAPSTN/5 ORDERED: Cyto Int and Re, PAPSTN/5 Pathological Diagnosis Left thyroid mid lobe nodule, FNA cytology: - Adequate but slightly limited for assessment - The [place] system is category 2: Benign - A [...] ) -- Specimen: [id number] Received: 07/15/23 Status: SOUJake Sifuentes Num: [id number] Spec Type: Cytology Subm Dr: MARTA PUENTE MD Tissues: A FNA SLIDES NOPATH (LT THYROID NOD) Procedures: Cyto Int and Re, PAPSTN/5 -- Patient: Jerald Griffithsra Holt [id number] (Continued) -- Specimen: [id number] Received: 07/15/23 (Continued) Signed (signatu re on file) Alfonso Correa MD 07/16/231122 -- Specimen: [id number]- Received: 07/15/23 Status: ADELEJake Sifuentes Num: [id number] Spec Type: Cytology Subm Dr: MARTA PUENTE MD Tissues: A FNA SLIDES NOPATH (LT THYROID NOD) Procedures: Cyto Int and Re, PAPSTN/5 -- Patient: Jessica Griffiths [id number] (Continued) -- Specimen: [id number] Received: 07/15/23 (Continued) CPT Codes 88329 -- -- Specimen: BC Received: 07/15/23 Status: DENA Sifuentes Num: [id number] Spec Type: Cytology Subm Dr: MARTA PUENTE MD Tissues: A FNA SLIDES NOPATH (LT THYROID NOD) Procedures: Cyto Int and Re, PAPSTN/5 -- Patient: Jessica Griffiths [id number] (Continued) -- Signed (signatu re on file) Alfonso Correa MD 07/16/23 1123 [facility] [place] Thyroid Imaging w/ Uptk Angelito [...] 203.5 Imaging Post Administration (hrs): 24 Normal [facility] CHEMISTRYOrdered By: SYSTEM SYSTEM on 07-08-2023 [...] for Treatmenton 06-23 Consent for Treatment [id number]#1.00TIFF Normal [facility] Lipid Panelon 07-08-2023 Cholesterol [Mass/Vol] 145 mg/dL Normal 120-200 [facility] Comment on above: Performed By: #### 2 199942 ####[facility] [address] [place] [address] Cholesterol in HDL [Mass/Vol] 62 mg/dL Invalid Interpretation Code [facility] Comment on above: Result Comment: '>= 60 LOW RISK' '<= 40 HIGH RISK' Performed By: #### 2 694468 ####[facility] [address] [place] [address] Cholesterol in LDL [Mass/Vol] 76 mg/dL Normal <=129 [facility] Comment on above: Performed By: #### 2 964149 ####[facility] [address] [place] [address] Cholesterol in VLDL [Mass/Vol] 10 mg/dL Normal 7-40 [facility] Comment on above: Performed By: #### 2 375408 ####[facility] [address] [place] [address] Triglyceride [Mass/Vol] 52 mg/dL Normal <=149 [facility] Comment on above: Performed By: #### 2 656551 ####[facility] [address] [place] [address] UA With Cult Reflexon 2023 Bacteria LM Ql (Urine sed) 1+ /HPF Abnormal Trace [facility] Comment on above: Performed By: #### 1 5002905 ####[facility] [address] [place] [address] Bilirubin Ql (U) Negative Normal Negative [facility] Comment on above: Performed By: #### 1 [id number] ####[facility] [address] [place] [address] Clarity (U) CLEAR Normal Clear [facility] Comment on above: Performed By: #### 1 [id number] ####[address] [address] Color (U) YELLOW Normal Yellow [facility] Comment on above: Performed By: #### 1 [id number] ####[facility] [address] [place] [address] Epithelial cells.squamous LM.HPF (Urine sed) [#/Area] /[HPF] Normal 0-2 [facility] Comment on above: Performed By: #### 1 [id number] ####[facility] [address] [place] [address] Glucose Test strip (U) [Mass/Vol] Negative Normal Negative [facility] Comment on above: Performed By: #### 1 [id number] ####[facility] [address] [place] [address] Hemoglobin Ql (U) Negative Normal Negative [facility] Comment on above: Performed By: #### 1 [id number] ####[facility] [address] [place] [address] Ketones (U) [Mass/Vol] TRACE Abnormal Negative [facility] Comment on above: Performed By: #### 1 8147470 ####[facility] [address] [place] [address] [place].plasma/Lithiu m.RBC (Bld) [Mass ratio] 0-3 Normal 0-3 [facility] Comment on above: Performed By: #### 1 [id number] ####[address] [address] Mucus Ql (Urine sed) 2+ Normal [facility] Comment on above: Performed By: #### 1 [id number] ####[address] [address] Nitrite Ql (U) Negative Normal Negative [facility] Comment on above: Performed By: #### 1 [id number] ####[address] [address] pH (U) 6.5 [pH] Invalid Interpretation Code 5.0-9.0 [facility] Comment on above: Performed By: #### 1 [id number] ####[address] [address] Protein (U) [Mass/Vol] Negative Normal Negative [facility] Comment on above: Performed By: #### 1 9658748 ####[address] [address] Specific gravity (U) [Rel density] 1.015 Invalid Interpretation Code 1.005-1.030 [facility] Comment on above: Performed By: #### 1 [id number] ####[address] [address] Type of Urine collection method Clean Catch Normal [facility] Comment on above: Performed By: #### 1 9061337 ####[address] [address] Urobilinogen Qn (U) 0.2 {Dylan'U}/dL Normal 0.0-1.0 [facility] Comment on above: Performed By: #### 1 2728620 ####[address] [address] WBC Auto Ql (U) Negative Normal Negative [facility] Comment on above: Performed By: #### 1 9722054 ####[facility] [address] [place] [address] WBC LM.HPF (Urine sed) [#/Area] 0-5 Normal 0-5 [facility] Comment on above: Performed By: #### 1 1670865 ####[facility] [address] [place] [address] URINALYSISOrdered By: Jennifer morris on 07-08-2023 Bacteria [...] Interpretation Code Negative [facility] UA Auto SS [place].plasma/Lithiu m.RBC (Bld) [Mass ratio] 0-3 /HPF Normal [...] AM) Invalid Interpretation Code 1.005 - 1.030 [facility] UA Auto SS UA Spec Desc Clean Catch (07/08/23 7:42 AM) Normal [facility] UA Auto SS Urobilinogen Qn (U) 0.3075189 {Dylan'U}/dL Normal 0.0 - 1.0 EU/dL [facility] UA Auto SS WBC Auto Ql (U) Negative (07/08/23 7:42 AM) Normal Negative [facility] UA Auto SS WBC LM.HPF (Urine sed) [#/Area] 0-5 /HPF Normal 0-5/HPF [facility] UA Auto SS Insurance Correspondenceon 0 07-01-2023 Insurance Correspondence [id number]#1.00TIFF Normal [facility] Physician Referralon 024 Physician Referral [id number]#1.00TIFF Normal [facility] Consent for Treatmenton Consent for Treatment [id number]#1.00TIFF Normal [facility] US Thyroidon 06-27-2023 US Thyroid Exam [...] with voice recognition artificial intelligence software, specifically DZZOM, Miroi and or Bocandy. Substitutions may have occurred due to the inherent limitations of voice recognition and artificial intelligence software. Documentation services were performed after patient or guardian consented to allow [employer] to record this visit. D (more content not included)... Normal [facility] Comment on above: Result Comment: Elec tronically Signed By: Paul Bass MD\.br\Date and Time Signed: 06/24/23 18:25 EST\.br\Electronically Co-Signed By: Jaja Alex\.br\Date and Time Co-Signed: 06/24/23 18:04 EST T3 Freeon 06-22-2023 Free T3 [Mass/Vol] 4.2 pg/mL Invalid Interpretation Code 2.0-4.4 [facility] Comment on above: Result Comment: Perf ormed at: [facility] [address] [id number] PhD Mahnaz Conklin Performed By: #### 2 [id number], 5007943, 4205649, [id number] ####[place] [address] Auto Diffon 06-21-2023 Basophils/100 WBC (Bld) 0.3 % Normal 0.0-2.0 [facility] Comment on above: Order Comment: Order Added by Discern Expert. Performed By: #### 1 5775239, 4310524, 4249014, 7942044, 8627960 #### [facility] [address] [place] [address] Basophils/Leukocytes Auto (Bld) [Pure # fraction] 0.0 E9/L Normal 0.0-0.2 [facility] Comment on above: Order Comment: Order Added by Discern Expert. Performed By: #### 1 3031566, 0190260, 1606776, 7973909, 9303242 #### [facility] [address] [place] [address] Eosinophils/100 WBC (Bld) 0.6 % Normal 0.0-8.0 [facility] Comment on above: Order Comment: Order Added by Discern Expert. Performed By: #### 1 3199515, 3866980, 3231592, 0987554, 6144248 #### [facility] [address] [place] [address] Eosinophils/Leukocyte s Auto (Bld) [Pure # fraction] 0.0 E9/L Normal 0.0-0.5 [facility] Comment on above: Order Comment: Order Added by Discern Expert. Performed By: #### 1 6993818, 9276115, 0810645, 8653839, 6150772 #### [facility] [address] [place] [address] Lymphocytes/100 WBC (Bld) 20.6 % Normal 14.0-50.0 [facility] Comment on above: Order Comment: Order Added by Discern Expert. Performed By: #### 1 3741993, 4572666, 3072017, 7452256, 8705665 #### [facility] [address] [place] [address] Lymphocytes/Leukocyte s Auto (Bld) [Pure # fraction] 1.7 E9/L Normal 1.0-4.0 [facility] Comment on above: Order Comment: Order Added by Discern Expert. Performed By: #### 1 1361747, 1680529, 7791311, 1428566, 7338450 #### [facility] [address] [place] [address] Monocytes/100 WBC (Bld) 6.6 % Normal 4.0-14.0 [facility] Comment on above: Order Comment: Order Added by Discern Expert. Performed By: #### 1 6897998, 6360882, 2559350, 4872395, 1532790 #### [facility] [address] [place] [address] Monocytes/Leukocytes Auto (Bld) [Pure # fraction] 0.5 E9/L Normal 0.2-1.0 [facility] Comment on above: Order Comment: Order Added by Jay Expert. Performed By: #### 1 3176381, 9429730, 0755538, 8737215, 2832050 #### [facility] [address] [place] [address] Neutrophils/100 WBC (Bld) 71.9 % Normal 36.0-75.0 [facility] Comment on above: Order Comment: Order Added by Jay Expert. Performed By: #### 1 6181090, 2104549, 2779734, 0626233, 3819337 #### [facility] [address] [place] [address] Neutrophils/Leukocyte s Auto (Bld) [Pure # fraction] 5.8 E9/L Normal 2.0-7.5 [facility] Comment on above: Order Comment: Order Added by Discern Expert. Performed By: #### 1 1194847, 7348973, 3040499, 8237316, 4362642 #### [facility] [address] [place] [address] CBC w/ Auto Diffon 3 Erythrocyte distribution width (RBC) [Ratio] 12.6 % Normal 10.9-14.2 [facility] Comment on above: Performed By: #### 1 0473805, 9484990, 8794179, 5468690, 3687180 #### [facility] [address] [place] [address] Hematocrit (Bld) [Volume fraction] 37.8 % Normal 34.0-46.0 [facility] Comment on above: Performed By: #### 1 7506340, 6683273, 8622440, 2362833, 9336617 #### [facility] [address] [place] [address] Hemoglobin (Bld) [Mass/Vol] 12.7 g/dL Normal 12.0-16.0 [facility] Comment on above: Performed By: #### 1 9631293, 5142340, 7327462, 6624774, 4246662 #### [facility] [address] [place] [address] MCH (RBC) [Entitic mass] 32.2 pg Normal 27.0-34.0 [facility] Comment on above: Performed By: #### 1 7070037, 6781129, 9269857, 4315830, 2881254 #### [facility] [address] [place] [address] MCHC (RBC) [Mass/Vol] 33.8 g/dL Normal 31.4-36.0 [facility] Comment on above: Performed By: #### 1 2903014, 1012297, 3766869, 8803209, 6141773 #### [facility] [address] [place] [address] MCV (RBC) [Entitic vol] 95.5 fL Normal 80.0-100.0 [facility] Comment on above: Performed By: #### 1 7576917, 5549476, 0630462, 6653955, 6623974 #### [facility] [address] [place] [address] Platelet mean volume (Bld) [Entitic vol] 8.5 fL Normal 6.4-10.8 [facility] Comment on above: Performed By: #### 1 7718394, 4854761, 6673030, 0806492, 7577540 #### [facility] [address] [place] [address] Platelets (Bld) [#/Vol] 303.0 E9/L Normal 150.0-500.0 [facility] Comment on above: Performed By: #### 1 9226878, 3586783, 8115775, 9389198, 0110751 #### [facility] [address] [place] [address] RBC (Bld) [#/Vol] 4.0 E12/L Low 4.3-5.9 [facility] Comment on above: Performed By: #### 1 8490432, 8682924, 5487058, 6228375, 5549570 #### [facility] [address] [place] [address] WBC corrected for nucl RBC Auto (Bld) [#/Vol] 8.1 E9/L Normal 4.0-11.0 [facility] Comment on above: Performed By: #### 1 1129493, 5260701, 8127444, 6117448, 7588600 #### [facility] [address] [place] [address] CHEMISTRYOrdered By: SYSTEM SYSTEM on 06-21-2023 Albumin [...] 06-21-2023 Albumin [Mass/Vol] 3.8 g/dL Normal 3.3-5.0 [facility] Comment on above: Performed By: #### 1 6170120, 3677708, 8284453, 9547482, 8010280 #### [facility] [address] [place] [address] Albumin/Globulin [Mass ratio] 1.3 {ratio} Normal 1.1-2.2 [facility] Comment on above: Performed By: #### 1 3857228, 7488040, 3282917, 1816880, 6626061 #### [facility] [address] [place] [address] Alk Phos 83 Int._Unit/L Normal 21-98 [facility] Comment on above: Performed By: #### 1 7074475, 2393042, 6114124, 9635271, 3282470 #### [facility] [address] [place] [address] ALT 10 Int._Unit/L Normal 6-46 [facility] Comment on above: Performed By: #### 1 9391963, 3501858, 3787394, 5037907, 8687344 #### [facility] [address] [place] [address] Anion gap [Moles/Vol] 10 mmol/L Normal 6-16 [facility] Comment on above: Performed By: #### 1 7678335, 6287882, 4743873, 7105098, 5221271 #### [facility] [address] [place] [address] AST 15 Int._Unit/L Normal 5-43 [facility] Comment on above: Performed By: #### 1 1607790, 0537250, 1677776, 6683797, 5934398 #### [facility] [address] [place] [address] Bili Total 0.5 mg/dL Normal 0.0-1.1 [facility] Comment on above: Performed By: #### 1 6133528, 0668530, 4193945, 0780897, 9574067 #### [facility] [address] [place] [address] BUN/Creat Ratio 22 No Units High 10-20 [facility] Comment on above: Performed By: #### 1 3262747, 3310400, 1353880, 3776398, 9798378 #### [facility] [address] [place] [address] Calcium [Mass/Vol] 8.7 mg/dL Low 8.9-11.1 [facility] Comment on above: Performed By: #### 1 6616228, 1845488, 8207871, 7771571, 4994341 #### [facility] [address] [place] [address] Chloride [Moles/Vol] 103 mmol/L Normal 101-111 [facility] Comment on above: Performed By: #### 1 1735770, 4614625, 2304549, 4134386, 3608376 #### [facility] [address] [place] [address] CO2 [Moles/Vol] 29 mmol/L Normal 21-31 [facility] Comment on above: Performed By: #### 1 9123496, 1143361, 1799301, 8736214, 5663956 #### [facility] [address] [place] [address] Creatinine [Mass/Vol] 0.6 mg/dL Normal 0.5-1.3 [facility] Comment on above: Performed By: #### 1 0030922, 0411176, 2721899, 9949090, 4279372 #### [facility] [address] [place] [address] Globulin (S) [Mass/Vol] 3.0 g/dL Normal 1.4-4.0 [facility] Comment on above: Performed By: #### 1 4747283, 7722221, 7236449, 4222460, 4360859 #### [facility] [address] [place] [address] Glucose [Mass/Vol] 84 mg/dL Normal 55-199 [facility] Comment on above: Performed By: #### 1 9901685, 4270444, 2162274, 0615543, 7355087 #### [facility] [address] [place] [address] Potassium [Moles/Vol] 3.9 mmol/L Normal 3.5-5.3 [facility] Comment on above: Performed By: #### 1 7279724, 1729122, 8583598, 4739802, 0596182 #### [facility] [address] [place] [address] Protein [Mass/Vol] 6.8 g/dL Normal 6.0-7.8 [facility] Comment on above: Performed By: #### 1 3816788, 7216124, 1909046, 6537248, 4354439 #### [facility] [address] [place] [address] Sodium [Moles/Vol] 138 mmol/L Normal 135-145 [facility] Comment on above: Performed By: #### 1 4845879, 8284826, 6272511, 0286451, 9396003 #### [facility] [address] [place] [address] Urea nitrogen [Mass/Vol] 13 mg/dL Normal 5-21 [facility] Comment on above: Performed By: #### 1 0149895, 7750602, 9576452, 5628235, 5177063 #### [facility] [address] [place] [address] Consent for Treatmenton 05-25 Consent for Treatment [id number]#1.00TIFF Normal [facility] Free T4on 06-21-2023 Free T4 [Mass/Vol] 1.37 ng/dL Normal 0.58-1.64 [facility] Comment on above: Performed By: #### 1 4037716, 0982740, 8739457, 4439769, 1356996 #### [facility] [address] [place] [address] HEMATOLOGYOrdered By: SYSTEM SYSTEM on 06-21-2023 Basophils/100 [...] 20.6 % Normal 14.0 - 50.0 % FT HemeAutoSS Lymphocytes/Leukocyte s Auto (Bld) [Pure # fraction] 1.7 E9/L Normal 1.0 - 4.0 E9/L [facility] HemeAutoSS Monocytes/100 WBC (Bld) 6.6 % Normal 4.0 - 14.0 % FT HemeAutoSS Monocytes/Leukocytes Auto (Bld) [Pure # fraction] 0.5 E9/L Normal 0.2 - 1.0 E9/L [facility] HemeAutoSS Neutrophils/100 WBC (Bld) 71.9 % Normal [...] HemeAutoSS Physician Orderon 06-21-2023 Physician Order [id number]#1.00TIFF Normal [facility] T3 Uptakeon 06-21-2023 T3 Uptake 46.6 % Normal 32.0-48.4 [facility] Comment on above: Performed By: #### 2 635853, 3300392, 2525259, 51124101 ####[facility] [address] [place] [address] T4 Totalon 06-21-2023 T4 18.8 microgram/dL High 4.6-9.1 [facility] Comment on above: Performed By: #### 2 058499, 7787840, 8288442, 36388152 ####[facility] [address] [place] [address] TSHon 06-21-2023 TSH Qn 0.07 m[IU]/L Low 0.34-5.60 [facility] Comment on above: Performed By: #### 2 220523, 7972355, 9394656, 30995674 ####[facility] [address] [place] [address] eGFRon 06-21-2023 GFR/1.73 sq M.predicted among non-blacks MDRD (S/P/Bld) [Vol rate/Area] mL/min/{1.73_m2} Normal >=59 [facility] Comment on above: Order Comment: Order added by Discern Expert. Performed By: #### 1 7711966, 6364557, 6320583, 0725280, 7722616 #### [facility] [address] [place] [address] Family Medicine Office/Clini c Noteon 06-20-2023 Family [...] with voice recognition software. Occasional wrong-word or ?lkfij-c-mwdt? substitutions may have occurred due to the [...] know she has been working with her BROOM MAN in regards to blood test and lab [...] lost some weight. But again is seeing [employer] in regards to these fluctuations denies any [...] with prim (more content not included)... Normal [facility] Comment on above: Result Comment: Elec tronically Signed By: Filiberto Cramer PA-C\.br\Date and Time Signed: 06/20/23 21:08 EST Patient [...] weeks. Home care treatment may include: ? Ncje-diu-cciwdqc pain relievers. ? A warm, moist cloth placed over the ear. Severe cases may require a procedure to insert tubes in the ears (tympanostomy tubes) to drain the fluid. Follow these instructions at home: ? Take levb-bno-xlfwbfg and prescription medicines only as told by [...] provider. Document Revised: 10/04/2021 Document Reviewed: 10/04/2021 [employer] Patient Education ? 2022 [employer] Endocrinology Thyroid Nodule A thyroid nodule [...] YAMINI Technologist: CAPRI Technical Comments None Normal [facility] Consent for Treatmenton 05-23 Consent for Treatment [id number]#1.00TIFF Normal [facility] RAD - MRI Screening Formon 1 08-10-2022 RAD - MRI Screening Form [id number]#1.00TIFF [facility] Physician Orderon 06-03-2023 Physician Order [id number]#1.00TIFF [facility] Consent for Treatmenton Consent for Treatment [id number]#1.00TIFF [facility] Physician Orderon 04-28-2023 Physician Order [id number]#1.00TIFF [facility] XR Spine Cervical 4 or 5 [...] mGy = na DAP = na Normal [facility] EMG Electromyographyon 01-21 EMG Electromyography [id number]#[id number]:127 Normal [facility] CHEMISTRYOrdered By: SYSTEM SYSTEM on 12-03-2021 [...] Not detected Invalid Interpretation Code Not Detected [facility] [employer] Comment on above: Result Comment: This nucleic acid amplification test was developed and its performance characteristics determined by [employer]. Nucleic acid amplification tests include RT-PCR and [...] detected) result in this assay. Performed at: [address] [id number] PhD Mahnaz Conklin Vital Signs Date Time Vital Sign Value Performing Clinician Facility 11-12-2023 12:45-0400 Blood Pressure Location Paul Gudimella [facility] 11-12-2023 12:45-0400 Diastolic blood pressure 76 mm[Hg] Paul Gudimella [facility] 11-12-2023 12:45-0400 Heart rate 72 /min Paul Gudimella [facility] 11-12-2023 12:45-0400 SaO2% (BldA) [Mass fraction] 99 % Paul Gudimella [facility] 11-12-2023 12:45-0400 Systolic blood pressure 116 mm[Hg] Paul Gudimella [facility] 10-07-2023 10:22-0400 Blood Pressure Location Nancy BARRIENTOS [facility] 10-07-2023 10:22-0400 Body temperature 97.88 [degF] Christopher BROWN [facility] 10-07-2023 10:22-0400 Diastolic blood pressure 76 mm[Hg] Christopher BROWN [facility] 10-07-2023 10:22-0400 Heart rate 66 /min Christopher BROWN [facility] 10-07-2023 10:22-0400 Respiratory rate 16 /min Christopher BROWN [facility] 10-07-2023 10:22-0400 SaO2% (BldA) [Mass fraction] 100 % Christdeandraer BROWN [facility] 10-07-2023 10:22-0400 Systolic blood pressure 116 mm[Hg] Nancy BARRIENTOS [facility] 08-04-2023 11:27-0500 Body height 167.6 cm Marta Puente MD Work Phone: [facility] 08-04-2023 11:27-0500 Body mass index (BMI) [Ratio] 21.14 kg/m2 Marta Puente MD Work Phone: [facility] 08-04-2023 11:27-0500 Body weight 59.42 kg Marta Puente MD Work Phone: [facility] 08-04-2023 11:27-0500 Diastolic blood pressure 81 mm[Hg] Marta Puente MD Work Phone: [facility] 08-04-2023 11:27-0500 Systolic blood pressure 111 mm[Hg] Marta Puente MD Work Phone: [facility] 07-24-2023 13:41-0500 Blood Pressure Location Paul Gudimella [facility] 07-24-2023 13:41-0500 Diastolic blood pressure 70 mm[Hg] Paul Gudimella [facility] 07-24-2023 13:41-0500 Heart rate 86 /min Paul Gudimella [facility] 07-24-2023 13:41-0500 SaO2% (BldA) [Mass fraction] 98 % Paul Gudimella [facility] 07-24-2023 13:41-0500 Systolic blood pressure 106 mm[Hg] Paul Gudimella [facility] 07-18-2023 16:16-0500 Blood Pressure Location Nancy BARRIENTOS [facility] 07-18-2023 16:16-0500 Diastolic blood pressure 60 mm[Hg] Nancy BARRIENTOS [facility] 07-18-2023 16:16-0500 Heart rate 92 /min Nancy BARRIENTOS [facility] 07-18-2023 16:16-0500 Respiratory rate 16 /min Nancy BARRIENTOS [facility] 07-18-2023 16:16-0500 SaO2% (BldA) [Mass fraction] 98 % Nancy BARRIENTOS [facility] 07-18-2023 16:16-0500 Systolic blood pressure 90 mm[Hg] Nancy BARRIENTOS [facility] 06-24-2023 13:49-0500 Blood Pressure Location Paul Gudimella [facility] 06-24-2023 13:49-0500 Diastolic blood pressure 72 mm[Hg] Paul Gudimella [facility] 06-24-2023 13:49-0500 Heart rate 89 /min Paul Gudimella [facility] 06-24-2023 13:49-0500 SaO2% (BldA) [Mass fraction] 97 % Paul Gudimella [facility] 06-24-2023 13:49-0500 Systolic blood pressure 98 mm[Hg] Paul Gudimella [facility] 06-20-2023 18:43-0500 Blood Pressure Location Filiberto Cramer [facility] 06-20-2023 18:43-0500 Body temperature 98.06 [degF] Filiberto Cramer [facility] 06-20-2023 18:43-0500 Diastolic blood pressure 76 mm[Hg] Filiberto Cramer [facility] 06-20-2023 18:43-0500 Heart rate 96 /min Filiberto Cramer [facility] 06-20-2023 18:43-0500 SaO2% (BldA) [Mass fraction] 98 % Filiberto Cramer [facility] 06-20-2023 18:43-0500 Systolic blood pressure 122 mm[Hg] Filiberto Cramer [facility] 12-28-2021 11:20-0400 Body height 167.64 cm Ric Tinoco Other [facility] [employer] Other 12-28-2021 11:20-0400 Body mass index (BMI) [Ratio] 21.14 kg/m2 Ric Tinoco Other [facility] [employer] Other 12-28-2021 11:20-0400 Body weight 59.42 kg Ric Tinoco Other [employer] Other 04-17-2021 15:40-0400 Body height 167.64 cm Ric Tinoco Other [employer] Other 04-17-2021 15:40-0400 Body mass index (BMI) [Ratio] 21.14 kg/m2 Ric Tinoco Other [employer] Other 04-17-2021 15:40-0400 Body weight 59.42 kg Ric Tinoco Other [employer] Other 05-31-2020 15:50-0500 Body weight 63.96 kg Kathycornelius [facility] [place] [facility] [place] 05-31-2020 15:50-0500 BP Diastolic 79 mm[Hg] Kathy Augie [facility] [place] [facility] [place] 05-31-2020 15:50-0500 BP Systolic 107 mm[Hg] Kathy Augie [facility] [place] [facility] [place] 05-31-2020 15:50-0500 Pulse (Heart Rate) 67 /min Kathy [facility] [place] [place] 05-31-2020 15:50-0500 Pulse Oximetry 100 % [facility] [place] [facility] [place] 05-31-2020 15:50-0500 Respiratory Rate 20 /min [facility] [place] Encounters Encounter Date Encounter Type Care Provider Facility Start: 03-08-2024 End: 03-08-2024 ambulatory EDWIN BISWAS Not Available Start: 03-01-2024 End: 03-01-2024 ambulatory MARTA H TIMMIS Not Available Start: 01-13-2024 End: 01-13-2024 ambulatory Marta H Timmis Facility:[facility] Start: 01-13-2024 End: 01-13-2024 Patient encounter procedure Marta H Timmis [facility] Start: 11-12-2023 End: 11-12-2023 ambulatory MD Paul Bass Facility:[facility] Start: 11-12-2023 End: 11-12-2023 Patient encounter procedure Paul Bass [facility] [place] Start: 10-21-2023 End: 10-21-2023 Patient encounter procedure AMAIRANI JONAS [facility] Start: 10-21-2023 End: 10-21-2023 ambulatory AMAIRANI JONAS Facility:[facility] Start: 10-07-2023 End: 10-07-2023 ambulatory Nancy BARRIENTOS Facility:[facility] Start: 10-07-2023 End: 10-07-2023 Patient encounter procedure Nancy BARRIENTOS [facility] Start: 09-10-2023 End: 09-10-2023 ambulatory AMAIRANI JONAS Facility:[facility] [facility] Start: 09-10-2023 End: 09-10-2023 Patient encounter procedure AMAIRANI JONAS [facility] Start: 08-04-2023 Bamboo flowsheet Marta rubio MD Work Phone: [facility] Start: 08-04-2023 Bamboo flowsheet Marta rubio MD Work Phone: [facility] Start: 08-04-2023 End: 08-04-2023 Office outpatient visit 15 minutes Marta Puente MD Work Phone: [facility] Comment on above: Mass of thyroid nadir on (Primary Dx); Hyperthyroidism (CMS/HCC) Start: 08-04-2023 End: 08-04-2023 ambulatory MARTA PUENTE Not Available Start: 07-29-2023 ambulatory Nancy BARRIENTOS [facility] ity: Po Start: 07-24-2023 End: 07-24-2023 ambulatory MD Paul Bass Facility:[facility] Start: 07-24-2023 End: 07-24-2023 Patient encounter procedure Paul Bass [facility] Start: 07-18-2023 End: 07-18-2023 ambulatory Nancy BARRIENTOS Facility:[facility] Start: 07-18-2023 End: 07-18-2023 Patient encounter procedure Nancy BARRIENTOS [facility] Start: 07-18-2023 End: 07-18-2023 ambulatory MD Paul Bass Facility:[facility] Start: 07-18-2023 End: 07-18-2023 Patient encounter procedure Paul Kali [facility] Start: 07-14-2023 End: 07-14-2023 ambulatory MD Ruben Barrientos Work Phone: [facility] Work Phone: Start: 07-14-2023 End: 07-14-2023 Departed Referred MD Ruben Barrientos Work Phone: [facility] Start: 07-08-2023 End: 10-07-2023 ambulatory MD Paul Bass Facility:[facility] Start: 07-08-2023 End: 10-07-2023 Recurring Paul Bass [facility] Start: 07-04-2023 End: 07-04-2023 ambulatory MARTA PUENTE Not Available Start: 06-27-2023 ambulatory MD Paul Oseguera lity:[facility] Start: 06-27-2023 End: 06-27-2023 ambulatory MD Paul Bass Facility:[facility] Start: 06-27-2023 End: 06-27-2023 Patient encounter procedure Paul Bass [facility] Start: 06-24-2023 End: 06-24-2023 ambulatory MD Paul Bass Facility:[facility] Start: 06-24-2023 End: 06-24-2023 Patient encounter procedure Paul Bass [facility] Start: 06-21-2023 End: 06-21-2023 ambulatory Filiberto Cramer Facility:[facility] Start: 06-21-2023 End: 06-21-2023 Patient encounter procedure Filiberto Cramer [facility] Start: 06-20-2023 End: 06-20-2023 ambulatory Filiberto Cramer Facility: [place] Start: 06-20-2023 End: 06-20-2023 Patient encounter procedure Filiberto Cramer [facility] Start: 06-09-2023 End: 06-09-2023 ambulatory Narendranath Lakshmipathy Facility:[facility] Start: 06-09-2023 End: 06-09-2023 Patient encounter procedure Narendranath Lakshmipathy [facility] Start: 05-07-2023 End: 05-07-2023 ambulatory KRAIG PARK Not Available Start: 04-28-2023 ambulatory Anitra BARRIENTOS Facility: [facility] Start: 04-28-2023 End: 04-28-2023 ambulatory EBER CASTANEDA Facility:[facility] Start: 04-28-2023 End: 04-28-2023 Patient encounter procedure EBER CASTANEDA [facility] Start: 11-05-2022 End: 11-06-2022 ambulatory NARENDRANATH LAKSHMIPATHY . Facility: Start: 10-22-2022 End: 10-22-[address] DOCTOR ALEJANDRE Facility: Start: 10-01-2022 End: 10-02-2022 ambulatory ISAURA KELLY . Facility: Start: 08-27-2022 End: 08-27-2022 ambulatory Ric Tinoco Other [employer] Other Start: 08-27-2022 Telephone encounter Ric Tinoco [facility] Start: 06-11-2022 End: 06-12-[address] HERB RIVERO . Facility:[facility] Start: 05-28-2022 End: 05-28-[address] HERB RIVERO . Facility:[facility] Start: 03-05-2022 End: 03-06-[address] HERB RIVERO . Facility:[facility] Start: 12-28-2021 End: 12-28-2021 ambulatory Ric Tinoco Other [facility] [employer] Other Start: 12-28-2021 Office outpatient visit 15 minutes Ric Tinoco [facility] Start: 12-03-2021 End: 12-03-2021 Patient encounter procedure Kraig Park [facility] Start: 11-08-2021 End: 11-09-[address] HERB RIVERO . Facility:[facility] Start: 07-13-2021 End: 10-11-2021 Patient encounter procedure Nancy BARRIENTOS [facility] Start: 04-17-2021 Office outpatient visit 15 minutes Ric Tinoco [facility] Start: 05-31-2020 End: 05-31-2020 Emergency department patient visit [facility] Start: 05-31-2020 End: 05-31-2020 Emergency department patient visit [facility] Angelito [facility] Work Phone: [facility] Comment on above: Chest wall pain (Brunilda michelet Dx) Start: 12-30-2018 End: 01-07-2019 Patient encounter procedure PROVIDER UNKNOWN Facility:[facility] Procedures Date Procedure Procedure Detail [...] anterior approach Nancy BARRIENTOS Comment on above: [facility] Start: 06-19-2018 Removal of sebaceous cyst Nancy BARRIENTOS Comment on above: Right inner thigh Start: 06-23-2006 Augmentation mammoplasty Rosendodeandrasanjeev BARRIENTOS H/O: hysterectomy S/P laparoscop ic hysterectomy MD Ruben Barrientos Work Phone: laparoscopy 4 Nancy NAYLA OWN Comment on above: 2014 Dr. Chantel landeros laparoscopy 5 Nancy NAYLA OWN Comment on above: 2014 Dr. Chantel landeros lumbar microdisectomy 5 Rex BARRIENTOS Comment on above: 10/2017 Dr. Barnes @ [facility] lumbar microdisectomy 6 Rex BARRIENTOS Comment on above: 10/2017 Dr. Barnes @ [facility] TV 6 Nancy CHIN QUETA Comment on above: per Dr. Glez 8 wisdom teeth extracted Ruben yonatan JUAN LUIS Plan of Treatment Date Care Activity Detail Author Start: 05-31-2026 [facility] Start: 08-04-2023 End: 08-04-2023 Patient encounter procedure 08/04/2023 11:20 AM EST Office Visit [facility] [address] [facility] [address] [place] [address] Marta Puente MD [address] [facility] [address] [place] [address] Arrived [facility] Comment on above: Arrived Start: 02-21-2023 Influenza vaccination Influenza Vacc ine (#1) [facility] Start: 02-22-2020 Influenza vaccination Flu vaccine (# 1) [place], [place] Start: 2005 Screening for malign ant neoplasm of cervix Pap Smear [facility] EKG 12 Lead EKG 12 Lead ECG STAT 05/31/2020 4:01 PM EST [place] Immunizations Immunization Date Immunization Notes Care Provider Fa cility 10-28-2020 COVID-19, mRNA, LNP-S, PF, 30 mcg/0.3 mL dose; Translations: [Pfizer-BioNTech COVID-19 Vaccine] Nancy BARRIENTOS [facility] Comment on above: Reason for Medicatio n: Prophylaxis 10-07-2020 COVID-19, mRNA, LNP-S, PF, 30 mcg/0.3 mL dose; Translations: [Pfizer-BioNTech COVID-19 Vaccine] Nancy BARRIENTOS [facility] Comment on above: Reason for Medicatio n: Prophylaxis 04-15-2020 influenza, injectable, quadrivalent, contains preservative Nancy BARRIENTOS [facility] 04-15-2020 influenza virus vaccine, unspecified formulation Marta Puente MD Work Phone: [facility] 03-23-2018 influenza virus vaccine, unspecified formulation Nancy BARRIENTOS [facility] 03-10-2013 tetanus toxoid, reduced diphtheria toxoid, and acellular pertussis vaccine, adsorbed Nancy BARRIENTOS [facility] Comment on above: Reason for Medicatio n: Other (see comment) 10-13-2007 tetanus toxoid, reduced diphtheria toxoid, and acellular pertussis vaccine, adsorbed Filiberto Cramer [facility] 10-24-1999 hepatitis A and hepatitis B vaccine Filiberto Cramer [facility] 01-25-1998 measles, mumps and rubella virus vaccine Filiberto Cramer [facility] NEGATED: Highlighted row has not occurred!07-18-2023 influenza virus vaccine, unspecified formulation Nancy BARRIENTOS [facility] NEGATED: Highlighted row has not occurred!06-20-2023 influenza virus vaccine, unspecified formulation Filiberto Cramer [facility] Payers Date Payer Category Payer Self-pay [id number] 2022 Medicaid [place] [id number] 2022-Present [address] [place] [address] [id number] 2022 Medicaid [id number] 2006 Private Health Insurance [id number] 1984 Unknown [id number] 2.840.1.574538.3.579.2.6 47 1984 Unknown [id number] 2.840.1.702706.3.579.2.1 74 1984 Unknown [id number] 2.840.1.215587.3.579.2.5 93 1984 Unknown [id number] 216.840.1.340034.3.579.2.5 93 1984 Unknown [id number] 216.840.1.909614.3.579.2.5 93 1984 Unknown [id number] 216.840.1.896605.3.579.2.5 93 1984 Unknown [id number] 216.840.1.799580.3.579.2.5 93 1984 Unknown [id number] 2.16.840.1.339799.3.579.2.5 93 1984 Unknown [id number] 2.16.840.1.912333.3.579.2.5 1984 Unknown [id number] 2.16.840.1.031738.3.579.2.7 27 1984 Unknown [id number] 2.16.840.1.154009.3.579.2.7 27 1984 Unknown [id number] 2.16.840.1.924320.3.579.2.7 27 1984 Unknown [id number] 2.16.840.1.092082.3.579.2.7 27 1984 Unknown [id number] 2.16.840.1.563811.3.579.2.7 27 1984 Unknown [id number] 2.16.840.1.252865.3.579.2.7 27 1984 Unknown [id number] 2.16.840.1.346181.3.579.2.7 27 1984 Unknown [id number] 2.16.840.1.694544.3.579.2.7 1984 Unknown [id number] 2.16.840.1.597904.3.579.2.7 1984 Unknown [id number] 2.16.840.1.078871.3.579.2.7 27 1984 Unknown [id number] 2.16.840.1.607090.3.579.2.7 27 1984 Unknown [id number] 2.16.840.1.493308.3.579.2.7 1984 Unknown [id number] 2.16.840.1.611559.3.579.2.7 27 1984 Unknown [id number] 2.16.840.1.073233.3.579.2.7 27 1984 Unknown [id number] 2.16.840.1.158879.3.579.2.7 27 1984 Unknown [id number] 2.16.840.1.530247.3.579.2.7 27 1984 Unknown [id number] 2.16.840.1.010870.3.579.2.7 27 1984 Unknown [id number] 2.16.840.1.094670.3.579.2.7 27 1984 Unknown [id number] 2.16.840.1.747995.3.579.2.1 259 1984 Unknown [id number] 2.16.840.1.090297.3.579.2.1 259 1984 Unknown [id number] 2.16.840.1.108633.3.579.2.1 259 1984 Unknown [id number] 2.16.840.1.638688.3.579.2.1 259 1984 Unknown [id number] 2.16.840.1.834746.3.579.2.1 259 1984 Unknown [id number] 2.16.840.1.683043.3.579.2.1 259 1959 Private Health Insurance [id number] 1.2.840.548706.1.13.239.2.7 .3.177083.315 Unknown [id number] 2.16.840.1.885914.3.579.2.5 31 Social History Date Type Detail Facility Start: 05-31-2020 End: 11-12-2023 Tobacco smoking status NHIS Never smoker [facility] [place] Start: 05-31-2020 End: 05-06-2023 Tobacco use and exposure Never used [place], [place] Sex Assigned At Not on file [place] Exposure to SARS-CoV -2 (event) Not sure [place] Tobacco smoking status Never [facility] Start: 07-03-2023 End: 07-04-2023 Sex Assigned At Female [place] [employer] Other Start: 1985 Sex Assigned At Female [facility] Start: 07-31-2023 End: 08-04-2023 Alcohol intake [...] fusion (ALIF) Orthopaedic bone screw, non-bioabsorbable, non-sterile +[id number] FDA Start: 12-06-2019 Anterior lumbar interbody fusion (ALIF) Orthopaedic bone screw, non-bioabsorbable, non-sterile +[id number] FDA Start: 12-06-2019 Anterior lumbar interbody fusion (ALIF) Bone-screw internal spinal fixation system, non-sterile +[id number] FDA Start: 12-06-2019 Anterior lumbar interbody fusion (ALIF) Bone-screw internal spinal fixation system, non-sterile +[id number] FDA Start: 12-06-2019 Anterior lumbar interbody fusion (ALIF) Spinal fusion graft kit ()[id number]) [id number] FDA Start: 12-06-2019 Anterior lumbar interbody fusion (ALIF) Spinal bone screw, non-bioabsorbable ()[id number] FDA Start: 12-06-2019 Anterior lumbar interbody fusion (ALIF) Metallic spinal fusion cage, non-sterile ()[id number] FDA Start: 12-06-2019 Anterior lumbar interbody fusion (ALIF) Bone-screw internal spinal fixation system, non-sterile +[id number] FDA Start: 12-06-2019 Functional Status Date Assessment Result Facility 11-12-2023 Functional Status N[facility]A [facility] 10-07-2023 Functional Status N/A [place] 07-24-2023 Functional Status N/A [facility] 07-18-2023 Functional Status N/A [place] 06-24-2023 Functional Status N/A [facility] 06-20-2023 Functional Status N/A [facility] Care Clinical Notes 04-17-2021 to 10-21-2023 LaboratoryHilacornelius Puente MD - 08/04/2023 11:20 AM ESTLaboratoryRadiologyLaboratoryLaboratoryLaboratory Note Date & Type Note Facility 10-21-2023 Evaluation + Plan note Diagnostic Tests PendingT3 Free 10/21/23 Future Scheduled TestsLab Miscellaneous-LC 07/24/23 [facility] 10-07-2023 Hospital Discharge instructions Patient [...] Treatment for this condition includes: Antibiotic medicine. Mkjr-tae-boysdfw medicines to treat discomfort. Drinking enough water [...] Follow these instructions at home: Medicines Take hrey-cgt-ntodobp and prescription medicines only as told by [...] provider. Document Revised: 01/19/2021 Document Reviewed: 01/19/2021 [employer] Patient Education 2022 [employer]. Follow Up Care 10/07/2023 07:28:28 With:Nancy BARRIENTOS MD, FAM Address: When: only if needed [facility] 08-04-2023 History of Present illness Narrative Subjective [...] per Dr Jonas documented in this encounter [facility] 07-24-2023 Evaluation + Plan note Future Scheduled TestsLab Miscellaneous-LC 07/24/23Echo Transthoracic Complete 07/24/23 [facility] 07-24-2023 Evaluation + Plan note Future Scheduled TestsLab Miscellaneous-LC 07/24/23 [facility] 07-18-2023 Evaluation + Plan note Diagnostic Tests PendingT3 Reverse, Serum 07/18/23Thyroid Perox.tpo Ab 07/18/23TgAb+Thyroglobulin,NIGEL or KELVIN 07/18/23 [facility] 07-18-2023 Hospital Discharge instructions Patient [...] surgery. Follow these instructions at home: Take libj-fgk-cjjdtvz and prescription medicines only as told by [...] condition. Where to find more information [employer] [place] of Diabetes and Digestive and Kidney Diseases: [...] Document Reviewed: 08/02/2022 Elsevier Patient Education 2022 [employer]. Follow Up Care 07/18/2023 07:34:13 With:Nancy BARRIENTOS MD, FAM Address: When: only if needed [facility] 06-21-2023 Evaluation + Plan note Diagnostic Tests PendingT3 Free 06/21/23 Future Scheduled TestsCBC w/ Auto Diff 06/20/23Comprehensive Metabolic Panel 06/20/23Free T4 06/20/23 [facility] 06-20-2023 Hospital Discharge instructions Patient [...] few weeks. Home care treatment may include: Qivd-vsq-qenhfmv pain relievers. A warm, moist cloth placed over the ear. Severe cases may require a procedure to insert tubes in the ears (tympanostomy tubes) to drain the fluid. Follow these instructions at home: Take elsv-lxa-pvxubdg and prescription medicines only as told by [...] provider. Document Revised: 10/04/2021 Document Reviewed: 10/04/2021 [employer] Patient Education 2022 [employer]. 06/20/2023 19:03:16 Thyroid Nodule Thyroid Nodule A [...] in your thyroid nodule or nodules. Take uigt-xnm-ypwdfqv and prescription medicines only as told by [...] provider. Document Revised: 04/22/2022 Document Reviewed: 04/22/2022 [employer] Patient Education 2022 [employer]. Follow Up Care 06/20/2023 07:23:01 With:Nancy BARRIENTOS MD, FAM Address: [address] [place] [address]- When: Unknown [facility] 06-20-2023 Evaluation + Plan note Future Scheduled TestsT4 Total 06/20/23CBC w/ Auto Diff 06/20/23Comprehensive Metabolic Panel 06/20/23T3 Free 06/20/23T3 Uptake 06/20/23Thyroid Stimulating Hormone 06/20/23Free T4 06/20/23 [facility] 10-01-2022 Note CONSULTATION CONSULTATION [...] our patients to inform us about any ecdi-ldo-bhobqpa medications or herbal remedies/nutritional supplements/alternative remedies. 2. [...] options with their primary care provider. [facility] 06-11-2022 Note CONSULTATION CONSULTATION DATE: 06/11/2022 [...] and concurs. CC: Nancy Barrientos M.D. [facility] 03-05-2022 Note PAIN MANAGEMENT CONS ULTATION [...] along this region. CC: Dr. Barrientos [facility] 12-28-2021 Evaluation note Encounter Date Diagnosis [...] follow her up on an as-needed basis [employer] Other 06-13-2022 Evaluation + Plan note Diagnostic Tests Pending * Insulin Level Total 12/03/21 * T3 Free 12/03/21 * FSH Level 12/03/21 Future Scheduled Tests Laboratory* COVID-19 ([facility]) 07/13/21 [facility]05-19-2022 NoteCONSULTATION CONSULTATION DATE: 11/08/2021 This is a pleasant 36-year-old female who returns to the clinic for a 3-month follow-up for her chronic neck pain. She does see Dr. Biswas in [facility] and she did receive right-sided neck and trigger points three weeks ago. She stated she had some relief that was not long-lasting. She does have a history of chronic lower back pain as well which she does plan on seeing Dr. Damon in [facility]. Activities that aggravate her neck are twisting, [...] of care and would like to proceed. [facility] Signed and Approved by: ISAURA KELLY . 11/12/2021 15:05:00[facility]01-21-2022 Evaluation + Plan note Future Scheduled Tests Laboratory* COVID-19 ([facility]) 07/13/21 [facility]10-26-2021 Evaluation note* Encounter Date Diagnosis Assessment Notes Treatment Notes Treatment Clinical Notes Mar, Spondylolisthesis at L5-S1 level (ICD-10 - M43.17) I answered a number of questions for the patient. I think a transforaminal injection may be beneficial. I also believe that she could potentially benefit from a dorsal column stimulator. She is seeing a another neurologist at [facility] and I am interested [...] region with neurogenic claudication (ICD-10 - M48.062) [employer] Other evaluation + Plan note Future Appointments Appointment Date:06/27/2023 07:30:00 AM Scheduled Provider: Location:.[facility] Appointment Type:US Thyroid/Neck/Chest (FT) Appointment Date:06/27/2023 08:00:00 AM Scheduled [facility]: [facility] Type:CV EKG (FT) Appointment Date:07/29/2023 12:40:00 PM Scheduled Provider:Nancy BARRIENTOS MD [facility] Type: Open Future Scheduled Tests Laboratory* UA With Cult Reflex 06/24/23 * CBC w/ Auto Diff 06/20/23 * Comprehensive Metabolic Panel 06/20/23 * Lipid Panel 06/24/23 * Free T4 06/20/23 Radiology* US Thyroid 06/27/23 [facility] Evaluation + Plan note Future Appointments Appointment Date:07/29/2023 12:40:00 PM Scheduled Provider:Nancy BARRIENTOS MD Location:[facility] Appointment Type: Open Future Scheduled Tests Laboratory* UA With Cult Reflex 06/24/23 * CBC w/ Auto Diff 06/20/23 * Comprehensive Metabolic Panel 06/20/23 * Lipid Panel 06/24/23 * Free T4 06/20/23 Radiology* US FNA w/ Guidance, first lesion 06/27/23 * NM Thyroid Imaging w/ Uptk Multiple 06/27/23 [facility] Future Appointments Appointment Date:09/11/2023 08:00:00 AM Scheduled Provider: Location:.[facility] Appointment Type:CV Echo () Diagnostic Tests Pending * T3 Free 09/10/23 * Thyrotropin Receptor Antibody, Serum 09/10/23 Future Scheduled Tests Laboratory* Lab Miscellaneous-LC 07/24/23 Radiology* Echo Transthoracic Complete 09/11/23 [facility] noteNo InformationNortPenn [facility] [employer] Other evaldmppnl noteNo assessment information available [facility] Work Phone: Evaluation note* Diagnosis Mass [...] ALIF-Doctor Alejandrina Hospitalization History see surgical hx [facility] [employer] Other Hospital course Narrative No data available for this section [facility] No data available for this section [facility] No data available for this section 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 * Chest Pain: Musculoskeletal (Czech) documented in this encounter Assessments Diagnosis Chest wall pain Painful respiration Reason for Referral Reason Evaluate and Treat C onsider for Dorsal Column Stimulator Diagnosis 1 Spondylolisthesis at L5-S1 level (M43.17) Referral Organization [facility] Ne urosurgery Referring Provider First Name Ric Referring Provider Last Name Alejadnrina Referring Provider Specialty Neurologica l Surgery Referred Organization Unknown Facility Referred Provider Mansoor Summers Referred Provider Specialty Pain Medicin e Referral Priority Routine Additional Source Comments INFORMATION SOURCE (unrecogn ized section and content) DATE CREATED AUTHOR 01/14/2020 [facility] DATE CREATED AUTHOR AUTHOR'S ORGANIZ ATION 06/01/2020 [facility] DATE CREATED AUTHOR AUTHOR'S ORGANIZ ATION 11/06/2022 [facility] DATE CREATED AUTHOR AUTHOR'S ORGANIZ ATION 08/01/2023 [facility] DATE CREATED AUTHOR AUTHOR'S ORGANIZ ATION 01/17/2024 [facility] DATE CREATED AUTHOR AUTHOR'S ORGANIZ ATION 03/09/2024 [facility] d[facility] Specialists EPIC Reason for Visit [...] July 14, 2023 End: July 14, 2023 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 [employer] [facility]. provides no warranty or guarantee of the accuracy or completeness of information in this document.
[2024-03-29 08:29] VITALS: BP 104/72; PULSE 76; TEMP 36.8; O2SAT 99
[2024-03-29] MEDS: BUPIVACAINE HCL 0.25% PF 25 MG/10 ML VIAL 5 ML INJ (09:20)
[2024-03-29] MEDS: TRIAMCINOLONE ACETONIDE 40 MG/ML VIAL INJ (09:20)
[2024-03-29] MEDS: LIDOCAINE HCL 2% 400 MG/20 ML MDV 15 ML INJ (09:20)
[2024-03-29] MEDS: IOHEXOL 240 MG/ML - 10 ML VIAL INJ (09:21)
[2024-03-29 09:22] VITALS: BP 106/72; BP 109/72; PULSE 64; PULSE 67; O2SAT 18; O2SAT 95
--- NOTE | 2024-03-29 09:22 | W.PM.PROCNOT ---
Date of procedure: 03/29/24 Pre-op diagnosis: Pain due to bilateral sacroiliitis Post-op diagnosis: same as pre-op Procedure: Procedure: Bilateral sacroiliac joint injection Medications: Bupivacaine 0.25% 3cc, kenalog 40mg x2 After informed consent was obtained, the patient was brought to the medical procedure unit and placed in the prone position, when a timeout was completed verifying correct patient, procedure, site, positioning, implant, and/or special equipment.? The skin overlying the area was prepped and draped in standard sterile fashion using alcohol.? A 25-gauge needle was inserted towards the left sacroiliac joint under direct fluoroscopic imaging.? Needle tip was advanced until the joint was encountered.? We instilled a total of 2 mL of solution.? The same procedure was then completed on the right side.? Postoperatively needles were removed.? The patient tolerated the procedure well without complication.? The patient reported reduction in pain symptoms postoperatively. Anesthesia: Local Surgeon: Suzie Alegria Pathology: none sent Condition: stable Disposition: no change
== END 2024-03-29 09:25 | disposition home or self-care (01) ==
LOC: SURGOUT 08:03
PROVIDERS: Visit Provider Anesthesiology
DX: M46.1 Sacroiliitis, not elsewhere classified (principal)
CPT/HCPCS: 27096; J0665; J3301; Q9966

== ENCOUNTER 2024-04-05 12:55 | Outpatient (OUT) | payer MEDICAID, SELFPAY ==
--- NOTE | 2024-04-05 14:04 | PM.CN ---
Consult Note: HPI Data of Consult Patient: known to practice within the last 3 years Consult date: 04/05/24 Requesting Physician: Suzie Alegria MD Primary Care Provider: Non-Staff Physician, Consult Narrative Reason for consult: low back pain Narrative: 38yof who presents for assessment. recently had caudal elroy and bilateral sij injection, but continues to have low back pain. is fused from l5-s1. has had several interventional modalities in the past, with limited benefit. continues in a series of provider directed home exercises >6 weeks, without lasting benefit. uses tramadol and gabapentin. denies adverse med side effects. cc:: CC: Suzie Alegria MD Review of Systems ROS Status of ROS 10 or more systems reviewed and unremarkable except as noted in history and below [facility] Medical History Migraines ?G43.909 - Migraine, unspecified, not intractable, without status migrainosus (ICD-10) Chronic pharyngitis ?J31.2 - Chronic pharyngitis (ICD-10) Endometriosis determined by laparoscopy ?N80.9 - Endometriosis, unspecified (ICD-10) Hyperthyroidism ?E05.90 - Thyrotoxicosis, unspecified without thyrotoxic crisis or storm (ICD-10) Neck pain ?M54.2 - Cervicalgia (ICD-10) Low back pain ?M54.50 - Low back pain, unspecified (ICD-10) Numbness and tingling ?R20.0 - Anesthesia of skin (ICD-10) ?R20.2 - Paresthesia of skin (ICD-10) Surgical History S/P fine needle aspiration ?Z98.890 - Other specified postprocedural states (ICD-10) History of lumbar fusion ?Z98.1 - Arthrodesis status (ICD-10) H/O breast implant ?Z98.82 - Breast implant status (ICD-10) Hx of breast implants, bilateral ?Z98.82 - Breast implant status (ICD-10) Status post lumbar surgery ?Z98.890 - Other specified postprocedural states (ICD-10) H/O: hysterectomy ?Z90.710 - Acquired absence of both cervix and uterus (ICD-10) S/P T&A (status post tonsillectomy and adenoidectomy) ?Z90.89 - Acquired absence of other organs (ICD-10) Hx of laparoscopy ?Z98.890 - Other specified postprocedural states (ICD-10) H/O breast augmentation ?Z98.82 - Breast implant status (ICD-10) Meds Home Medications and Allergies Home Medications ?Medication ?Instructions ?Recorded ?Confirmed ?Type baclofen 10 mg tablet 10 mg PO BID 12/04/22 03/29/24 History oxcarbazepine 300 mg tablet 300 mg PO .HS 12/04/22 03/29/24 History tizanidine 4 mg tablet 4 mg PO .HS 12/04/22 03/29/24 History gabapentin 600 mg tablet 600 mg PO BEDTIME #30 tabs 04/17/23 03/29/24 Rx estradiol 2 mg tablet 2 mg PO DAILY 07/11/23 03/29/24 History oxcarbazepine 150 mg tablet 150 mg PO DAILY 07/11/23 03/29/24 History tramadol 50 mg tablet 50 mg PO TID PRN pain #90 tabs 12/08/23 03/29/24 Rx rimegepant 75 mg disintegrating 75 mg QDAY PRN migraine headache 01/14/24 History tablet (Nurtec ODT) gabapentin 300 mg capsule 300 mg PO BID #60 caps 02/04/24 03/29/24 Rx tramadol 50 mg tablet 50 mg PO TID PRN pain #90 tabs 04/05/24 Rx Allergies Allergy/AdvReac Type Severity Reaction Status Date / Time adhesive Allergy Rash Verified 03/29/24 08:31 latex Allergy Rash Verified 03/29/24 08:31 Exam Narrative Exam Narrative: Psych-alert and oriented x 3. Attentive and appropriate, constitutionally normal, displays normal mood and affect per situation. There are no obvious deficits in memory, reasoning, or intellect.? Skin-no obvious rashes, bruising, erythema noted to the patient's area of pain.? Extremities- extremities are warm with minimal edema and palpable pulses. Lumbar-tenderness to palpation noted in the lumbar spine and paraspinal musculature. Pain is elicited with flexion, extension, and lateral rotation of the lumbar spine. Range of motion is diminished with these motions. Facet loading maneuvers are positive.? Strength-noted to be unremarkable Sensory-no notable sensory deficits in the bilateral lower extremities to touch or pinprick in all dermatomal distributions with the exception to decreased sensation to the bilateral L4, 5 dermatomal distribution Coordination remains intact.? Gait remains non-antalgic. Assessment and Plan Assessment and Plan (1) Failed back syndrome: (2) Lumbar radiculopathy: Plan 38yof who presents for assessment. failed conservative measures, as noted. discussed that given her surgical history and multitude of interventional modalities attempted before, she may be a good candidate for spinal cord stimulation. i provided her with information about this. medications reviewed, no changes. she will follow up in 3 months or sooner, if needed.
== END 2024-04-05 12:56 | disposition home or self-care (01) ==
PROVIDERS: Visit Provider Anesthesiology
DX: M54.16 Radiculopathy, lumbar region (principal); M96.1 Postlaminectomy syndrome, not elsewhere classified
CPT/HCPCS: G0463

== ENCOUNTER 2024-07-07 08:07 | Outpatient (OUT) | payer MEDICAID, SELFPAY ==
--- NOTE | 2024-07-07 08:31 | P.CN_ITS ---
Consult Note: HPI Data of Consult Patient: known to practice within the last 3 years Requesting Physician: Randi Potts NP Primary Care Provider: Non-Staff Physician, MD Consult Narrative Reason for consult: F/u Narrative: Emily Valiente a pleasant 38 year old female presents for evaluation and management of chronic pain. Today neck pain and low back pain is 6/10 increasing to 8/10. Pain increases with bending and activity. Patient reporting increase in right trapezius muscle pain and tightness, previously had significant benefit to TPI with Dr Thompson for 2 weeks, no ongoing improvement. Patient finds benefit with current medication regimen, no side effects. Active in HEP and aquatherapy, has completed 6 weeks of PT without benefit. 12/14 underwent right C3/4 C4/5 facet medial branch block #1 with >80% improvement in pain and functional ability greater than 2 hours. Is not interested in spinal cord stimulation for low back pain unresponsive to numerous interventional therapies. VANI 29% with moderate pain impacting ability to sit, stand, walk and sleep. cc:: CC: Randi Potts NP Review of Systems ROS Status of ROS 10 or more systems reviewed and unremark able except as noted in history and below Musculoskeletal Reports: back pain, neck pain and extremity pain PFSH PFSH Medical History Migraines ?G43.909 - Migraine, unspecified, not intractable, without status migrainosus (ICD-10) Chronic pharyngitis ?J31.2 - Chronic pharyngitis (ICD-10) Endometriosis determined by laparoscopy ?N80.9 - Endometriosis, unspecified (ICD-10) Hyperthyroidism ?E05.90 - Thyrotoxicosis, unspecified without thyrotoxic crisis or storm (ICD-10) Neck pain ?M54.2 - Cervicalgia (ICD-10) Low back pain ?M54.50 - Low back pain, unspecified (ICD-10) Numbness and tingling ?R20.0 - Anesthesia of skin (ICD-10) ?R20.2 - Paresthesia of skin (ICD-10) Surgical History S/P fine needle aspiration ?Z98.890 - Other specified postprocedural states (ICD-10) History of lumbar fusion ?Z98.1 - Arthrodesis status (ICD-10) H/O breast implant ?Z98.82 - Breast implant status (ICD-10) Hx of breast implants, bilateral ?Z98.82 - Breast implant status (ICD-10) Status post lumbar surgery ?Z98.890 - Other specified postprocedural states (ICD-10) H/O: hysterectomy ?Z90.710 - Acquired absence of both cervix and uterus (ICD-10) S/P T&A (status post tonsillectomy and adenoidectomy) ?Z90.89 - Acquired absence of other organs (ICD-10) Hx of laparoscopy ?Z98.890 - Other specified postprocedural states (ICD-10) H/O breast augmentation ?Z98.82 - Breast implant status (ICD-10) Meds Home Medications and Allergies Home Medications ?Medication ?Instructions ?Recorded ?Confirmed ?Type baclofen 10 mg tablet 10 mg PO BID 12/04/22 03/29/24 History oxcarbazepine 300 mg tablet 300 mg PO .HS 12/04/22 03/29/24 History tizanidine 4 mg tablet 4 mg PO .HS 12/04/22 03/29/24 History gabapentin 600 mg tablet 600 mg PO BEDTIME #30 tabs 04/17/23 03/29/24 Rx estradiol 2 mg tablet 2 mg PO DAILY 07/11/23 03/29/24 History oxcarbazepine 150 mg tablet 150 mg PO DAILY 07/11/23 03/29/24 History tramadol 50 mg tablet 50 mg PO TID PRN pain #90 tabs 12/08/23 03/29/24 Rx rimegepant 75 mg disintegrating 75 mg QDAY PRN migraine headache 01/14/24 [facility] gabapentin 300 mg capsule 300 mg PO BID #60 caps 02/04/24 03/29/24 Rx tramadol 50 mg tablet 50 mg PO TID PRN pain #90 tabs 04/05/24 Rx tramadol 50 mg tablet 50 mg PO TID PRN pain #90 tabs 06/08/24 Rx Allergies Allergy/AdvReac Type Severity Reaction Status Date / Time adhesive Allergy Rash Verified 03/29/24 08:31 latex Allergy Rash Verified 03/29/24 08:31 Exam Constitutional Documenting provider has reviewed patient's vital signs: yes Common normals: no apparent distress, oriented x3, healthy appearing, alert and well nourished General appearance: cooperative HENMT Common normals: normocephalic, hearing grossly normal bilaterally and moist oral mucous membranes Head and scalp: normocephalic Eye Common normals: PERRL Pupil: PERRL Neck & C-Spine Common normals: full ROM General: normal visual inspection Cervical spine: cervical ROM abnormal, pain with cervical ROM, paracervical muscle tenderness and trapezius muscle tenderness Other: negative spurlings, sensation intact BUE Chest Common normals: inspection of chest normal Respiratory Common normals: normal respiratory effort, no retractions and no use of accessory muscles Back & Pelvis Lumbar spine/lower back: ROM limited and pain with ROM Extremity Common normals: normal to inspection and full ROM Right upper extremity: shoulder joint Other: right shoulder: strength 5/5, ROM intact, mild pain with overhead motions and posterior liftoff Neuro Common normals: oriented x3, CN's II-XII intact bilaterally, moves all extremities, no focal motor deficits, no sensory deficits noted and deep tendon reflexes 2+ bilaterally Sensorium/orientation: alert Motor exam: strength 5/5 throughout and no movement abnormalities noted Psych Common normals: mental status grossly normal, thought process normal, cooperative, affect normal, speech normal and activity/motor behavior normal Speech: normal speech Thought process: normal thought process Results Additional Findings Additional findings: If on a controlled substance or opioids, I have checked an [place] report on this patient and there are no aberrancies noted in the prescribing history.??If on a controlled substance or opioid a drug screen was completed and reviewed within the last year, and if there has not been a drug screen completed we ordered one today to monitor higher risk, state monitored pain medication use. As part of providing excellent, safe, comprehensive care, the following was completed at our patient's visit: 1. A medication reconciliation and review to ensure accurate knowledge of current/active medications, including asking our patients to inform us about any [id number] medications or herbal remedies/nutritional supplements/alternative remedies. 2. A review to specifically ensure our patients have had annual screening for screening for depression, screening for tobacco use, and screening for unhealthy alcohol use. For concerning screenings had a discussion with the patient, provided patient education, and recommended follow-up with primary care provider when appropriate. If patient noted with a risk of falling, they received education on strength, gait, and balance training to prevent future risk of falling. Assessment and Plan Assessment and Plan (1) Cervical spondylosis: Assessment and Plan: The patient has had over 3 months of moderate to severe cervical spine pain with functional impairment and inadequate response to conservative care including NSAIDS (unless there are contraindication such as concurrent blood thinners), multiple oral or topical pain medications, and home exercise program/physical therapy.? Patient has completed >6 weeks of guided home exercise program and/or formal physical therapy program without relief of their symptoms.? I have reviewed the imaging of the cervical spine and no red flags were identified.? We discussed the risks and benefits of the procedure with the patient, and we are NOT planning on using sedation as outlined in the guidelines from Medicare unless there is a documented reason that sedation would be strongly re commended.?? ?The procedure will be completed with fluoroscopic guidance.? (2) Muscle spasm: (3) Failed back syndrome: (4) Chronic prescription opiate use: Plan right C3-4 C4-5 medial branch block #2 working towards RFA continue current medication regimen, risks vs benefits reviewed continue HEP and aquatherapy update UDS f/u after injection
--- OUTSIDE RECORDS SUMMARY | 2024-07-07 08:32 | XMS_ITS | CCD ---
Author Organization [facility] Care Team Providers Care Welder Gun Name Role Phone UNKNOWN, PROVIDER Admitting Unavailable UNKNOWN, PROVIDER Attending Unavailable UNKNOWN, PHYSICIAN Referring Unavailable UNKNOWN, PHYSICIAN Primary Care Unavailable Nancy Barrientos Primary Care Provider [phone] KATHY GHOSH Attending Unavailable NANCY BARRIENTOS Primary Care Unavailable Nancy BARRIENTOS Primary Care Physician [phone] Ric Tinoco Unavailable JOSEFA ., DR HERB [...] ., DR HERB Melgar Admitting Unavailable KELLY ., ISAURA Consulting Unavailable MD Ruben Barrientos Primary Care Provider MD Marta Puente Jr Attending Provider Kathy Webbs Jr Marta H Attending Unavailable Timmis Jr, Marta H Admitting Unavailable Ruben Barrientos Primary Care Unavailable Nancy Barrientos MD Primary Care Provider Nancy BARRIENTOS Primary Care Physician Airam REES, Suzie Greer Attending Unavailable TIMMIS, MARTA H Attending Unavailable GUDIMELLA, PAUL Referring Unavailable KRAIG PARK Attending Unavailable APPLEMIS, MARTA H Attending Unavailable NANCY BARRIENTOS Referring Unavailable PETRA CALLE Attending Unavailable TIMMIS, MARTA H Attending Unavailable EDWIN BISWAS Attending Unavailable EBER POTTS Referring Unavailable PETRA CALLE Attending Unavailable Gudimella, Paul Attending Unavailable Gudimella, Paul Attending Unavailable Gudimella, Paul Attending Unavailable Nancy BARRIENTOS Attending Unavailable Nancy BARRIENTOS Attending Unavailable Nancy BARRIENTOS Attending Unavailable SUMI, AHMAD F Attending Unavailable SUMI, AHMAD F Admitting Unavailable Filiberto Cramer Admitting Unavailable Filiberto Cramer Attending Unavailable Gudimella, Paul Admitting Unavailable Gudimella, Paul Attending Unavailable SUMI, AHMAD F Attending Unavailable SUMI, AHMAD F Admitting Unavailable SUMI, AHMAD F Attending Unavailable SUMI, AHMAD F Admitting Unavailable Lakshmipathy, Narendranath Admitting Unava ilable Lakshmipathy, Narendranath Attending Unava ilable Lakshmipathy, Narendranath Referring Unava ilable Timmis, Marta H Referring Unavailable Timmis, Marta H Admitting Unavailable Timmis, Marta H Attending Unavailable Gudimella, Paul Admitting Unavailable Gudimella, Paul Attending Unavailable Gudimella, Paul Referring Unavailable Gudimella, Paul Admitting Unavailable Gudimella, Paul Attending Unavailable Gudimella, Paul Referring Unavailable Filiberto Cramer Attending Unavailable Paul Bass Attending Unavailable SUHAS JONAS Attending Unavailable SUHAS JONAS Admitting Unavailable Allergies Allergy Classification Reported Allergen(s) Allergy Type Date of Onset Reaction(s) Facility (1 source) Adhesive agent; Translations: [Unknown] Propensity to adverse reactions (disorder) 9 [facility] Repository (19 sources) Adhesive Tape; Translations: [Tape] Drug allergy Eruption of skin (disorder) [facility] (20 sources) Latex; Translations: [Latex] Drug allergy 5 Rash [employer] Other (3 sources) adhesive bandages Propensity to adverse reactions rash [facility] [employer] Other (1 source) Adhesive agent Drug allergy (disorder) 6 [facility] Repository (1 source) Adhesive agent Drug allergy (disorder) 2 [facility] Repository (1 source) Adhesive Tape Drug allergy (disorder) 0 [facility] Repository (11 sources) Wound Dressing Adhesive Drug Allergy 5 [...] Status: Ordered baclofen 10 mg oral tablet (20 sources) gamma-Aminobutyr ic Acid-ergic Agonist Start: 02-02-2024 End: 05-02-2024 take 0.5-1 tablets by mouth twice daily as needed for muscle spasms baclofen (Lioresal) 10 MG tablet Indications: Neck pain TAKE 1/2 TO 1 (ONE-HALF TO ONE) TABLET BY MOUTH TWICE DAILY NEEDED FOR MUSCLE SPASM 60 tablet 2 02/02/2024 05/02/2024 Active Start: 03-23-2023 take 0.5-1 tablets b y mouth twice daily baclofen (Lioresal) 10 MG [...] course, # 28 cap(s), Refills(s) 0, Pharmacy: [id number], 168, cm, 07/11/20 8:27:00 [...] Daily, # 90 tab(s), Refills(s) 1, Pharmacy: [id number], 168, cm, 07/11/20 8:27:00 [...] erenumab-aooe 140 mg/ml auto-injector (20 sources) Start: 10-21-2023 End: 04-06-2024 erenumab (Aimovig) 140 MG/ML injection Indications: Migraine without aura and without status migrainosus, not intractable (CMS/HCC) INJECT 1 SYRINGE SUBCUTANEOUSLY ONCE EVERY MONTH 1.12 mL 5 04/06/2024 Active Start: 11-30-2019 Aimovig 140 MG /ML injection INJECT 1 SYRINGE SUBCUTANEOUSLY ONCE EVERY [...] nasal route once daily Flonase 0.05 mg/inh [place] 2 spray(s), Nasal, Daily for 7 day(s), 16 gm, Refill(s) 0, each nostril, [id number], 168, cm, 06/20/23 18:45:00 [...] Three times daily September 03, 2017 11:00pm take 1 tablet by mouth once jayce y gabapentin (Neurontin) 600 MG tablet Take 1 tablet by mouth Daily Active Gabapentin 600 m g TAKE 2 TABLETS THREE TIMES A DAY Active take 4 capsules by m outh three times daily gabapentin (NEURONTIN) 300 MG capsule Take 1,200 mg by mouth 3 times daily. 0 Active lamoTRIgine 25 mg oral tablet (6 sources) Mood Stabilizer, Anti-epileptic Agent Start: 11-30-2019 End: 03-01-2024 take 1 tablet by mouth once daily lamoTRIgine (LAMICTAL) 25 MG tablet Take 25 mg by mouth daily 0 11/30/2019 Active Start: 11-30-2019 take 1 tablet by jaden twice daily Lamictal 25 mg Tab 25 mg = 1 tab(s), Oral, BID, # 180 tab(s), Refills(s) 1, Pharmacy: [facility], 168, cm, 07/11/20 8:27:00 EST, Height/Length Dosing, 64.1, kg, 07/11/20 8:27:00 EST, Weight Dosing Start Date: 08/22/20 Status: Ordered loratadine 10 mg oral tablet (3 sources) Start: 02-23-2020 take 1 tablet by mouth once daily loratadine 10 mg Tab 10 mg = 1 tab(s), Oral, Daily, # 90 tab(s), Refills(s) 1, Pharmacy: [facility], 168, cm, 02/23/20 10:40:00 EDT, Height/Length Dosing, 65, kg, 02/23/20 10:40:00 EDT, Weight Dosing Start Date: 02/23/20 Status: Ordered Start: 11-30-2019 take 1 capsule by mo [facility] once daily loratadine (CLARITIN) 10 MG capsule Take 10 mg by mouth daily 0 11/30/2019 Active methIMAzole 10 mg oral tablet (10 sources) Thyroid Hormone Synthesis Inhibitor Start: 08-01-2023 methIMAzole (Tapazole) 10 MG tablet Take 10 mg by mouth 08/01/2023 Active omeprazole 20 mg delayed release [...] Nausea/Vomiting, # 10 tab(s), Refills(s) 0, Pharmacy: [facility], 168, cm, 07/10/20 13:24:00 EST, Height/Length Dosing, 62.1, kg, 07/10/20 13:24:00 EST, Weight Dosing Start Date: 07/10/20 Status: Ordered OXcarbazepine 300 mg oral tablet (20 sources) Anti-epileptic Agent Start: 05-17-2024 take 0.5 tablet by mouth in the morning, then take 1-2 tablets by mouth at bedtime OXcarbazepine (Trileptal) 300 MG tablet Indications: Paresthesias TAKE 1/2 (ONE-HALF) TABLET BY MOUTH IN THE MORNING AND 1 TO 2 TABLETS AT BEDTIME 75 tablet 05/17/2024 Active Start: 03-10-2023 take 0.5 tablet by m outh in the morning, then take 1-2 tablets by mouth at bedtime OXcarbazepine (Trileptal) 300 MG tablet TAKE 1/2 (ONE-HALF) TABLET BY MOUTH IN THE MORNING AND 1 TO 2 TABLETS AT BEDTIME 03/10/2023 Active Start: 11-24-2020 take 1-2 tablets [...] Active oxybutynin chloride 5 mg oral tablet (20 sources) Cholinergic Muscarinic Antagonist Start: 10-07-2023 take 1 tablet by mouth three times daily as needed oxybutynin 5 mg Tab 5 mg = 1 tab(s), Oral, TID, PRN for urinary discomfort, for bladder symptoms, # 30 tab(s), Refills(s) 0, Pharmacy: [facility], 168, cm, 10/07/23 10:32:00 EDT, Height/Length Dosing, 61, kg, 10/07/23 10:32:00 EDT, Weight Dosing Start Date: 10/07/23 Status: Ordered Start: 05-26-2020 take 1 tablet by jaden th twice daily as needed oxybutynin 5 mg Tab 5 mg = 1 tab(s), Oral, BID, PRN for urinary discomfort, # 60 tab(s), Refills(s) 2, Pharmacy: [facility], 168, cm, 05/26/20 16:32:00 EST, Height/Length Dosing, 64, kg, 05/26/20 16:32:00 EST, Weight Dosing Start Date: 05/26/20 Status: Ordered take 1 tablet by jaden th every twenty-four hours in the morning oxybutynin XL (Ditropan-XL) 5 MG 24 hr tablet Take 5 mg by mouth in the morning. Active take 1 tablet by jaden th [...] pantoprazole 40 mg delayed release oral tablet (4 sources) Proton Pump Inhibitor Start: 02-06-2021 take 1 tablet by mouth once daily 30 minutes before breakfast Protonix 40 mg Tab-EC 40 mg = 1 tab(s), Oral, Daily, Take 30 minutes before breakfast, # 30 tab(s), Refills(s) 5, Pharmacy: [facility], 168, cm, 07/11/20 8:27:00 EST, Height/Length Dosing, 64.1, kg, 07/11/20 8:27:00 EST, Weight Dosing Start Date: 02/06/21 Status: Ordered End: 03-01-2024 take 1 tablet by mouth once daily pantoprazole (ProtoNix) 40 MG packet Delayed release. Take 1 tablet by mouth once daily 30 minutes before breakfast. 03/01/2024 Discontinued (Therapy completed) predniSONE 20 mg oral tablet (6 sources) Start: 07-31-2023 End: 03-01-2024 take 1 tablet by mouth in the morning predniSONE (Deltasone) 20 MG tablet Take 20 mg by mouth in the morning. X 14 days. 07/31/2023 03/01/2024 Discontinued (Therapy completed) Start: 12-08-2019 Prednisone Act love 1 dose pk PO per package directions December 07, 2019 11:00pm take 4 tabs for 3 days then take 3 tabs for 3 days then take 2 tabs for 3 days then take 1 tab for 3 days pregabalin 150 mg oral capsule (4 sources) Start: 11-24-2020 End: 03-01-2024 take 1 capsule by mouth three times daily Lyrica 150 mg Cap 150 mg = 1 cap(s), Oral, TID, # 60 cap(s), Refills(s) 0 Start Date: 11/24/20 Status: Ordered propranolol hydrochloride 10 mg oral tablet (2 sources) beta-Adrenergi c Nat Start: 07-24-2023 take 1 tablet by mouth once propranolol 10 mg Tab 10 mg = 1 tab(s), Oral, Once, # 1 tab(s), Refills(s) 0, Pharmacy: [facility], 168, cm, 07/24/23 13:48:00 EST, Height/Length Dosing, 61, kg, 07/24/23 13:48:00 EST, Weight Dosing Start Date: 07/24/23 Status: Ordered Protonix 40 mg Tab-EC (3 sources) Start: 02-06-2021 take 1 tablet by mouth once daily 30 minutes before breakfast Protonix 40 mg Tab-EC 40 mg = 1 tab(s), Oral, Daily, Take 30 minutes before breakfast, # 30 tab(s), Refills(s) 5, Pharmacy: [facility], 168, cm, 07/11/20 8:27:00 EST, Height/Length Dosing, 64.1, kg, 07/11/20 8:27:00 EST, Weight Dosing Start Date: 02/06/21 Status: Ordered rimegepant 75 mg disintegrating oral tablet (17 sources) Start: 04-06-2024 End: 04-06-2024 take 1 tablet by mouth once daily as needed, then take 1 tablet by mouth every other week as needed Rimegepant Sulfate (Nurtec) 75 MG tablet dispersible Indications: Migraine without aura and without status migrainosus, not intractable (CMS/HCC) Take 1 tablet by mouth Daily as needed (1 tablet at the onset of a migraine. do not repeat. no more than 2 days/week) 8 tablet 5 04/06/2024 Active Start: 10-07-2023 take 1 tablet by jaden th every week as needed Nurtec ODT 75 [...] Refills(s) 0 Start Date: 01/25/21 Status: Ordered take 1 tablet by jaden th every twenty-four hours as needed Nurtec 75 MG tablet dispersible Take 1 tablet by mouth Daily as needed (Migraine) Max 2 days a week Active rizatriptan 10 mg oral tablet (3 sources) Serotonin-1b and Serotonin-1d Receptor Agonist End: 03-01-2024 rizatriptan (Maxalt) 10 MG tablet Take 1 tablet by mouth 1 (one) time if needed (Onset of migraine) And may repeat with 1 po after 2 hours prn, max 2 per day, 2 days per wk 03/01/2024 Discontinued (Therapy completed) SUMAtriptan 100 mg oral tablet (4 sources) Serotonin-1b and Serotonin-1d Receptor Agonist Start: 11-24-2020 Imitrex 100 mg Tab See Instructions, 1 tab(s) at onset of migraine, may repeat in 2hrs, no more than 2 times a day and 2 times a wk prn migraine, Refills(s) 0 Start Date: 11/24/20 Status: Ordered tiZANidine 4 mg oral tablet (20 sources) Central alpha-2 Adrenergic Agonist Start: 03-02-2024 take 1 tablet by mouth at bedtime tiZANidine (Zanaflex) 4 MG tablet Indications: Neck pain Take 1 tablet (4 mg) by mouth at bedtime 30 tablet 2 03/02/2024 Active Start: 11-18-2023 take 1 tablet by jaden th once daily at bedtime tiZANidine (Zanaflex) 4 MG tablet Indications: Neck pain TAKE 1/2 TO 1 (ONE-HALF TO ONE) TABLET BY MOUTH ONCE DAILY AT BEDTIME 30 tablet 2 11/18/2023 Active Start: 03-24-2023 take 1 tablet by jaden th once daily at bedtime tiZANidine (Zanaflex) 4 [...] Ordered traMADol hydrochloride 50 mg oral tablet (20 sources) Opioid Agonist Start: 03-26-2023 take 1 tablet by mouth three times daily as needed traMADol (Ultram) 50 MG tablet TAKE 1 TABLET BY MOUTH THREE TIMES DAILY NEEDED. MUST LAST 30 DAYS. 03/26/2023 Active Start: 11-30-2019 End: 12-08-2019 take [...] 2017 7:12am valACYclovir 1000 mg oral tablet (11 sources) Herpesvirus Nucleoside Analog DNA Polymerase Inhibitor, Herpes Simplex Virus Nucleoside Analog DNA Polymerase Inhibitor, Herpes Zoster Virus Nucleoside Analog DNA Polymerase Inhibitor Start: 12-02-2022 End: 03-01-2024 valACYclovir (Valtrex) 1 g tablet Take 1,000 mg by mouth in the morning and 1,000 mg before bedtime. 12/02/2022 03/01/2024 Discontinued (Therapy completed) Start: 01-18-2022 take 1 tablet by jaden twice daily valacyclovir 1 g Tab 1 gram = 1 tab(s), Oral, BID, # 60 tab(s), Refills(s) 2, Pharmacy: [facility], 168, cm, 11/08/21 9:50:00 EDT, Height/Length Dosing, 65.4, kg, 11/08/21 9:50:00 EDT, Weight Dosing Start Date: 01/18/22 Status: Ordered Start: 11-23-2020 take 1 tablet by [facility] twice daily valacyclovir 1 g Tab 1 gram = 1 tab(s), Oral, BID, # 60 tab(s), Refills(s) 2, Pharmacy: [facility], 168, cm, 07/11/20 8:27:00 EST, Height/Length Dosing, 64.1, kg, 07/11/20 8:27:00 EST, Weight Dosing Start Date: 11/23/20 Status: Ordered Start: 11-23-2020 take 1 tablet by [facility] twice daily valacyclovir 1 g Tab 1 gram = 1 tab(s), Oral, BID, # 60 tab(s), Refills(s) 2, Pharmacy: [facility], 168, cm, 07/11/20 8:27:00 EST, Height/Length Dosing, 64.1, kg, 07/11/20 8:27:00 EST, Weight Dosing Start Date: 11/23/20 Status: Ordered Completed/Discontinued Medications Medication Drug Class(es) Dates Sig (Normalized) Sig (Original) acetaminophen 325 mg / HYDROcodone bitartrate 5 mg oral tablet (2 sources) Opioid Agonist Start: 09-12-2017 End: 11-30-2019 take 1 tablet by mouth every four to six hours Hydrocodone-Acetami nophen (Orono) 5-325 mg tablet Discontinued 1 TAB PO EVERY 4-6 HOURS September 12, 2017 November 30, 2019 9:37am Start: 09-04-2017 End: 09-12-2017 take 1 tablet by mouth once daily at bedtime Hydrocodone-Acetaminophen ([place]rono) 5-325 mg Tablet Discontinued 1 TAB PO [...] Estrogen Start: 09-04-2017 End: 09-12-2017 Norethindrone-E.Est radiol-Iron ( Fe 07/12 (28)) 1 mg-20 mcg (21)/75 [...] Date Documented Da te Episodic/Chronic Cardiac dysrhythmias (9 sources) Palpitations; Translations: [Palpitations] Onset: 4 Episodic Esophageal disorders (20 sources) Gastroesophageal reflux disease; Translations: [Gastroesophageal reflux disease without esophagitis] Onset: 4 02-01-2019 Chronic Headache; including migraine (20 sources) Migraine; Translations: [Migraine variants] Onset: 7 03-31-2020 Chronic Heart valve disorders (9 sources) Heart murmur; Translations: [Cardiac murmur, unspecified] Onset: 4 Episodic Intestinal infection (18 sources) Bacterial overgrowth syndrome 08-07-2020 Episodic Menopausal disorders (1 source) Menopausal symptom; Translations: [Menopausal and female climacteric states] 05-22-2024 Chronic Miscellaneous mental health disorders (18 sources) Chronic insomnia 08-17-2019 Chronic Nausea and vomiting (2 sources) Nausea 07-10-2020 Episodic Nonmalignant breast conditions (3 sources) Fibrocystic disease of breast; Translations: [Diffuse cystic mastopathy of right breast] Chronic Nonspecific chest pain (19 sources) Chest wall pain; Translations: [Atypical chest pain] 07-06-2019 Episodic Other acquired deformities (3 sources) Spondylolisthesis L5/S1 level; Translations: [Spondylolisthesis, lumbosacral region] Episodic Other acquired deformities (4 sources) Lumbar spondylolisthesis; Translations: [Spondylolisthesis, lumbar region] 06-04-2023 Episodic Other diseases of bladder and urethra (19 sources) Detrusor overactivity; Translations: [Overactive bladder] Onset: 4 07-10-2020 Chronic Other female genital disorders (3 sources) Dyspareunia due to non-psychogenic cause in the female; Translations: [Other specified dyspareunia] Chronic Other gastrointestinal disorders (2 sources) Abdominal bloating 07-11-2020 Episodic Other gastrointestinal disorders (20 sources) Alteration in bowel elimination 06-27-2020 Episodic Other gastrointestinal disorders (18 sources) Chronic constipation with overflow 08-07-2020 Episodic Other gastrointestinal disorders (2 sources) Diarrhea 07-10-2020 Episodic Other gastrointestinal disorders (18 sources) Fecal soiling co-occurrent and due to fecal incontinence 06-27-2020 Episodic Other gastrointestinal disorders (2 sources) Incontinence of feces 07-11-2020 Episodic Other gastrointestinal disorders (1 source) Dysphagia; Translations: [Dysphagia, unspecified] Onset: 4 Episodic Other gastrointestinal disorders (10 sources) Swallowing painful 07-18-2023 Episodic Other nervous system disorders (11 sources) Chronic pain; Translations: [Other chronic pain] 10-08-2023 Chronic Other nervous system disorders (4 sources) Other specified mononeuropathies of right lower limb; Translations: [OTH SPEC MONONEUROPATH RT LOW LIMB] Onset: 3 Chronic Other nervous system disorders (5 sources) Other chronic pain; Translations: [OTHER CHRONIC PAIN] Onset: 2 Chronic Other nervous system disorders (18 sources) Sensory disorder of smell and/or taste 03-31-2020 Episodic Other nervous system disorders (11 sources) Paresthesia; Translations: [Paresthesia of skin] 04-06-2024 Episodic Other nutritional; endocrine; and metabolic disorders (18 sources) 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 Other screening for suspected conditions (not mental disorders or infectious disease) (18 sources) Thyroid function tests abnormal; Translations: [Abnormal results of thyroid function studies] Onset: 3 Episodic Other skin disorders (7 sources) Foot callus 11-08-2021 Episodic Other skin disorders (4 sources) Eruption; Translations: [Rash and other nonspecific skin eruption] Onset: 4 Episodic Other upper respiratory disease (13 sources) Allergic rhinitis; Translations: [Allergic rhinitis, unspecified] Onset: 4 Chronic Other upper respiratory disease (11 sources) Chronic pharyngitis; Translations: [Chronic pharyngitis] Onset: [...] [Breast implant status] Chronic Residual codes; unclassified (18 sources) Chill 03-31-2020 Episodic Residual codes; unclassified [...] Translations: [Degeneration of lumbosacral intervertebral disc] Onset: 9 06-27-2020 Chronic Spondylosis; intervertebral disc disorders; other back problems (20 sources) Lumbar disc prolapse with radiculopathy; Translations: [Spinal stenosis of lumbar region] Onset: 9 Resolved: 2 06-27-2020 Episodic Thyroid disorders (20 sources) Thyrotoxicosis, unspecified without thyrotoxic crisis or storm; Translations: [Hyperthyroidism] Onset: 4 Chronic Unclassified (14 sources) Body mass index 20-24 - normal 05-26-2020 Unclassified (4 sources) LOW BACK PAIN, UNSPECIFIED; Translations: [LOW BACK PAIN, UNSPECIFIED] Onset: 2 Unclassified (6 sources) Patient encounter status 06-24-2023 Urinary tract infections (18 sources) Urinary tract infectious disease 05-26-2020 Episodic Viral infection (18 sources) Herpes simplex 02-01-2019 Episodic Past or Other Problems Problem Classification Problem Date Documented Date Episodic/Chronic Blindness and vision defects (8 sources) Diplopia; Translations: [Diplopia] Onset: 12-01-2018 10-08-2023 Episodic Malaise and fatigue (8 sources) Asthenia; Translations: [Weakness] Onset: 10-21-2023 10-21-2023 Episodic Other acquired deformities (2 sources) Spondylolisthesis, lumbosacral region; Translations: [Spondylolisthesis at L5-S1 level M43.17] Onset: 04-17-2021 Resolved: 12-28-2021 Episodic Other connective tissue disease (10 sources) Muscle pain; Translations: [Myalgia, unspecified site] Onset: 10-21-2023 04-06-2024 Episodic Other connective tissue disease (8 sources) Other symptoms and signs involving the musculoskeletal system; Translations: [Other musculoskeletal symptoms referable to limbs] Onset: 10-08-2023 10-08-2023 Episodic Other nervous system disorders (8 sources) Paresthesia of right upper limb; Translations: [Paresthesia of skin] Onset: 12-01-2018 10-08-2023 Episodic Other skin disorders (15 sources) Mass of neck; Translations: [Localized swelling, mass and lump, neck] Onset: 07-04-2023 07-04-2023 Episodic Pathological fracture (1 source) Pathological fracture, other site, initial encounter for fracture; Translations: [PATH FX OTH SITE INITIAL ENCOUNTER] Onset: 03-10-2022 Episodic Unclassified (1 source) Exposure to 2019 novel coronavirus; Translations: [Contact with and (suspected) exposure to COVID19] Unclassified (18 sources) None (qualifier value) 12-11-2012 Unclassified (20 sources) Onset: 09-23-2004 Resolved: 03-09-2013 12-29-2014 Comment on above: pi Unclassified (1 source) LOW BACK PAIN, UNSPECIFIED; Translations: [LOW BACK PAIN, UNSPECIFIED] Onset: 06-11-2022 Results Test Name Value Interpretation Reference Range Facil ity T3 Freeon 05-11-2024 Free T3 [Mass/Vol] 2.3 pg/mL Invalid Interpretation Code 2.0-4.4 [facility] Comment on above: Result Comment: Perf ormed at: [facility] [address] [id number] PhD Mahnaz Conklin Performed By: #### [id number] #### [facility] [address] [place] [id number] CHEMISTRYOrdered By: SYSTEM SYSTEM on 05-10-2024 Free T4 [Mass/Vol] 0.72 ng/dL Normal 0.58 - 1.64 ng/dL Remisol Chem TSH Qn 2.58 m[IU]/L Normal 0.34 - 5.60 mcIU/mL Remisol Chem Free T4on 05-10-2024 Free T4 [Mass/Vol] 0.72 ng/dL Normal 0.58-1.64 [facility] Comment on above: Performed By: #### [id number] #### [facility] [address] [place] [address] TSHon 05-10-2024 TSH Qn 2.58 m[IU]/L Normal 0.34-5.60 [facility] Comment on above: Performed By: #### [id number] #### [facility] [address] [place] [address] EMG 2 Extremitieson 03-08-20 EMG/ NCS BLE Mild right S1/S2 radiculopathy versus tibial motor neuropathy that is less likely [facility] NVC 9-10 Nerveson 03-08-2024 EMG/ NCS BLE Mild right S1/S2 radiculopathy versus tibial motor neuropathy that is less likely [facility] US Thyroidon 01-16-2024 US Thyroid Exam Date/Time: [...] Christian DO Transcribed by: YAMINI Technologist: KELSI Merrill [facility] Consenton 11-12-2023 Consent [id number]#[id number] Normal [facility] Consent [id number]#[id number] Normal [facility] Medicine Office/Clini c Noteon 11-12-2023 Family [...] with voice recognition artificial intelligence software, specifically [employer]oo, [employer] and or [employer]. Substitutions may have occurred due to the inherent limitations of voice recognition and artificial intelligence software. Documentation services were performed after patient or guardian consented to allow [employer] to record this visit. DEX print support specialist Perlita Dominguez and provider reviewed before [...] per year, 06/24/2023 Employment/School Employed, Work/School description: [employer] 02/01/2019 Home/Environment Lives with Children, Spouse., 02/01/2019 Substance Abuse - Denies Substance Abuse, 12/11/2012 Household substance abuse concerns: No., 06/24/2023 Tobacco - Denies Tobacco Use, 12/11/2012 Never (less than 100 in lifetime) Tobacco Use:. Never Smokeless Tobacco Use:. Household tobacco concerns: No., 11/12/2023 Family History Depression: Mother. Hepatitis C: Sister. Immunizations Vaccine Date Status Comments influenza viru (more content not included)... Normal [facility] Comment on above: Result Comment: Elec tronically Signed By: Paul Bass MD\.br\Date and Time Signed: 11/12/23 14:07 EDT\.br\Electronically Co-Signed By: Tyrone Garcia\.br\Date and Time Co-Signed: 11/12/23 13:40 EDT T3 Freeon 10-22-2023 Free T3 [Mass/Vol] 2.9 pg/mL Invalid Interpretation Code 2.0-4.4 [facility] Comment on above: Result Comment: Perf ormed at: [facility] [address] [id number] PhD Mahnaz Conklin Performed By: #### 2 503612, 6390048, 3087220 ####[facility] [address] [place] [address] CHEMISTRYOrdered By: SYSTEM SYSTEM on 10-21-2023 Free T4 [Mass/Vol] 0.65 ng/dL Normal 0.58 - 1.64 ng/dL Remisol Chem TSH Qn 4.41 m[IU]/L Normal 0.34 - 5.60 mcIU/mL Remisol Chem Consent for Treatmenton 09-23 Consent for Treatment [id number]#1.00TIFF Normal [facility] Free T4on 10-21-2023 Free T4 [Mass/Vol] 0.65 ng/dL Normal 0.58-1.64 [facility] Comment on above: Performed By: #### 2 288922, 6346639, 0035363 ####[facility] [address] [place] [address] Physician Orderon 10-21-2023 Physician Order [id number]#1.00TIFF Normal [facility] TSHon 10-21-2023 TSH Qn 4.41 m[IU]/L Normal 0.34-5.60 [facility] Comment on above: Performed By: #### 2 859009, 6507336, 3991749 ####[facility] [address] [place] [address] Ambulatory Visit Summaryon 0 10-07-2023 Ambulatory Visit [...] Follow Up with JUAN LUIS REES, SAMIR Madsion When: Only if needed Where: Medications What How Much When Instructions New oxybutynin (oxybutynin 5 mg Tab) 1 Tablets By Mouth 3 times a day as needed for for urinary discomfort for bladder symptoms Pickup at [facility] Unchanged baclofen (baclofen 10 [...] physician if questions or concerns Pharmacy Information [facility]: [id number] [phone] Allergies Latex Tape (Rash) Problems Ongoing - [...] have a (more content not included)... Normal [facility] Family Medicine Office/Clini c Noteon 10-07-2023 [...] two weeks, she has not utilized any ajkr-gbe-hgkwojd or old antibiotics, nor has she utilized [...] week. She is seeing Dr. Jonas in [place] for her thyroid. She has been trying [...] Urnls Dip Stick Auto w/o Microscopy POC 67118 2. Thyroiditis, subacute (E06.1: Subacute thyroiditis) Continue following with Dr. Jonas in [place] for management of the methimazole. 3. Lumbar [...] symptoms, # 30 tab(s), Refills(s) 0, Pharmacy: [facility], 168, cm, 10/07/23 10:32:00 EDT, Height/Length Dosing, 61, kg, 10/07/23 10:32:00 EDT, Weight Dosing Portions of this record may have been created with voice recognition artificial intelligence software, specifically eriQoo, Dokkankom and or Mumart. Substitutions may have occurred due to the inherent limitations of voice recognition and artificial intelligence software. Follow-up With When Contact Information Nancy BARRIENTOS MD, [facility] Only if needed Additional Instructions: Patient Education [...] Anterior lumba (more content not included)... Normal [facility] Comment on above: Result Comment: Elec tronically Signed By: Nancy BARRIENTOS MD\.br\Date and Time Signed: 10/07/23 10:56 EDT Patient Educationon 10-07-19 24 Patient Education Obstetrics and Gynecology Urinary Tract [...] this condition includes: ? Antibiotic medicine. ? Qwhc-geh-witvlrf medicines to treat discomfort. ? Drinking enough [...] these instructions at home: Medicines ? Take txrb-fpq-mizmanf and prescription medicines only as told by [...] Document Revie (more content not included)... Normal [facility] T3 Freeon 09-13-2023 Free T3 [Mass/Vol] 1.5 pg/mL Low 2.0-4.4 [facility] Comment on above: Result Comment: Perf ormed at: [facility] [address] [phone] [id number] PhD Mahnaz Conklin Performed By: #### 2 605478, [id number], 0105222, 7107780, 3088186 ####[facility] [address] [place] [address] Thyrotropin Receptor Antibod y, Serumon 09-13-2023 TSH receptor Ab Qn (S) <1.10 Invalid Interpretation Code 0.00-1.75 [facility] Comment on above: Result Comment: Perf ormed at: [facility] [address] [id number] MD Enrico Dean Performed By: #### 2 643267, [id number], 9974378, 5894585, 9725552 ####[facility] [address] [place] [address] CHEMISTRYOrdered By: SYSTEM SYSTEM on 09-10-2023 Albumin [...] for Treatmenton 08-22 Consent for Treatment [id number]#1.00TIFF Normal [facility] Free T4on 09-10-2023 Free T4 [Mass/Vol] ng/dL Low 0.58-1.64 [facility] Comment on above: Performed By: #### 2 559058, [id number], 5280013, 9649776, 9896505 ####[facility] [address] [place] [address] Hep Func Panelon 09-10-2023 Albumin [Mass/Vol] 4.2 g/dL Normal 3.3-5.0 [facility] Comment on above: Performed By: #### 2 975189, [id number], 7644889, 1022063, 5127551 ####[facility] [address] [place] [address] Albumin/Globulin (S) [Mass conc ratio] 1.4 Normal 1.1-2.2 [facility] Comment on above: Performed By: #### 2 871078, 8318843072, 9010525, 6169971, 9655581 ####[facility] [address] [place] [address] ALP [Catalytic activity/Vol] 66 Int._Unit/L Normal 21-98 [facility] Comment on above: Performed By: #### 2 880791, 1079777118, 5784749, 2525524, 8878885 ####[facility] [address] [place] [address] ALT No additional P-5'-P [Catalytic activity/Vol] 14 Int._Unit/L Normal 6-46 [facility] Comment on above: Performed By: #### 2 403254, 4951159006, 0254801, 0778275, 1279506 ####[facility] [address] [place] [address] AST [Catalytic activity/Vol] 22 Int._Unit/L Normal 5-43 [facility] Comment on above: Performed By: #### 2 018588, 7756264788, 5982636, 0948917, 2073516 ####[facility] [address] [place] [address] Bilirubin [Mass/Vol] 0.5 mg/dL Normal 0.0-1.1 [facility] Comment on above: Performed By: #### 2 639001, 1212264002, 8172381, 1332514, 1694425 ####[facility] [address] [place] [address] Bilirubin.direct [Mass/Vol] 0.1 mg/dL Normal 0.0-0.4 [facility] Comment on above: Performed By: #### 2 177576, 1704780489, 1729411, 8483760, 8737176 ####[address] [address] Bilirubin.indirect [Mass or moles/Vol] 0.4 mg/dL Normal 0.1-0.9 [facility] Comment on above: Performed By: #### 2 897411, 0294780236, 3089936, 1202357, 3203700 ####[facility] [address] [place] [address] Globulin (S) [Mass/Vol] 3.0 g/dL Normal 1.4-4.0 [facility] Comment on above: Performed By: #### 2 279498, 5979690354, 1099577, 7218595, 1940335 ####[address] [place] [address] Protein [Mass/Vol] 7.2 g/dL Normal 6.0-7.8 [facility] Comment on above: Performed By: #### 2 567092, 9518561217, 3684554, 1282656, 8346753 ####[address] [place] [address] Physician Orderon 09-10-2023 Physician Order [id number]#1.00TIFF Normal [facility] TSHon 09-10-2023 TSH Qn 68.80 m[IU]/L High 0.34-5.[address] [facility] Comment on above: Performed By: #### 2 938283, 5165484808, 8868581, 8000791, 3532171 ####[facility] [address] [place] [address] Consultation Noteon 08-12-19 Consultation Note [id number]#1.00TIFF Normal [facility] Insurance Correspondenceon 08-05-2023 Insurance Correspondence [id number]#1.00TIFF Normal [facility] Consultation Noteon 08-04-19 Consultation Note [id number]#1.00TIFF Normal [facility] .Thyroglobulin by RIAon 07-24 Thyroglobulin [Mass/Vol] 159 ng/mL High [facility] Comment on above: Result Comment: Conf irmed by dilution. This test was developed and its performance characteristics determined by [facility]. It has not been cleared or approved [...] quantitation limit is 2.0 ng/mL. Performed at: [facility] [address] [place] [address] [id number] MD Yadiel Cornell Performed By: #### 7 00797436, 3556271, 31798109, 4771983, 059497139, 32284909 ####[facility] [address] [place] [address] T3 Reverseon 08-02-2023 T3.reverse [Mass/Vol] 31.2 ng/dL High 9.2-24.1 [facility] Comment on above: Result Comment: This test was developed and its performance characteristics determined by [facility]. It has not been cleared or approved by the Food and Drug Administration. Performed at: [address] [id number] MD Enrico Dean Performed By: #### 7 98587767, 7964441, 54265171, 6950265, 432300052, 53858411 ####[facility] [address] [place] [address] TgAb+Thyroglobulinon Thyroglobulin Ab Qn 2.7 International_Unit /mL High 0.0-0.9 [facility] Comment on above: Result Comment: Thyr oglobulin Antibody measured by [employer] Performed at: [address] [id number] PhD Mahnaz Conklin Performed By: #### 7 57049257, 6945868, 54784598, 9743966, 661819157, 66350446 ####[facility] [address] [place] [address] Thyroid Perox.tpo Abon 08-02 TPO Ab Qn [IU]/mL Invalid Interpretation Code 0-34 [facility] Comment on above: Result Comment: Perf ormed at: [address] [id number] PhD Mahnaz Conklin Performed By: #### 7 60813415, 1866616, 62025881, 4480740, 131093245, 48515046 ####[facility] [address] [place] [address] Family Medicine Office/Clini c Noteon 07-29-2023 Family [...] and imagi (more content not included)... Normal [facility] Comment on above: Result Comment: Elec tronically Signed By: Paul Bass MD\.br\Date and Time Signed: 07/29/23 18:15 EST\.br\Electronically Co-Signed By: Jaja Alex\.br\Date and Time Co-Signed: 07/24/23 18:17 EST Interdisciplinary Note - Soc ial Workeron 07-28-2023 Interdisciplinary Note - Interventional Radiology Tech This SW made a tc to patient [...] needs arise. SW will remain available. Normal [facility] Ambulatory Visit Summaryon 0 07-24-2023 Ambulatory [...] hormone level, Print Label By Order Location, 346654\.br\ Echo Transthoracic Complete, 07/24/23, Routine, Order for future visit, Transport Mode: Ambulatory, Reason: Other (please specify), Reason: murmur, Heart murmur, pp_set_radiology_ subspecialty, [facility], [facility] [place]\.br\ Medications\.br\ What How Much When Instructions\.br\ New propranolol (propranolol 10 mg Tab) 1 Tablets By Mouth Once Pickup at [facility]\.br\ Unchanged baclofen (baclofen 10 mg Tab) See [...] if questions or concerns \.br\ Pharmacy Information\.br\ [facility]: [address] [phone]\.br\ Allergies\.br\ Latex\.br\ Tape (Rash)\.br\ Problems\.br\ Ongoing - [...] for choosing us for your care.\.br\ \.br\ [facility] Ambulatory Visit Summaryon 0 07-18-2023 [...] You smoke (more content not included)... Normal [facility] CHEMISTRYOrdered By: SYSTEM SYSTEM on 07-18-2023 Free T4 [Mass/Vol] 2.22 ng/dL High 0.58 - 1.64 ng/dL Remisol Chem TSH Qn 0.01 m[IU]/L Low 0.34 - 5.60 mcIU/mL Remisol Chem Clipboard Summaryon 07-18-19 Clipboard Summary {81-jk-s7-2d-15-1c -46-1z-w4-9a-b9-6d -cb-25-c2-ac}XML Normal [facility] Consent for Treatmenton 06-24 Consent for Treatment [id number]#1.00TIFF Normal [facility] Family Medicine Office/Clini c Noteon 07-18-2023 [...] and had a biopsy on Friday at [facility], carried out by the radiology department interventional [...] Nonicteric sclera. Oropharynx pink and moist. Adequate [place] dentition. Anterior neck, there is a fullness [...] the pathology report on her phone from [facility] which indicates benign cellularity although admittedly [...] Dysphagia, unspecified) (more content not included)... Normal [facility] Comment on above: Result Comment: Elec tronically Signed By: JUAN LUIS REES, Nancy\.br\Date and Time Signed: 07/18/23 19:02 EST Free T4on 07-18-2023 Free T4 [Mass/Vol] 2.22 ng/dL High 0.58-1.64 [facility] Comment on above: Performed By: #### 7 [id number], 3266042, 25334282, 3343513, 549303511, 74191627 #### [facility] [address] [place] [address] Patient Educationon 07-18-19 Patient Education Endocrinology Hyperthyroidism [...] Follow these instructions at home: ? Take bzqh-pyi-eurzrzu and prescription medicines only as told by [...] Where to find more information ? National [place] of Diabetes and Digestive and Kidney Diseases: [...] as u (more content not included)... Normal [facility] TSHon 07-18-2023 TSH Qn 0.01 m[IU]/L Low 0.34-5.60 [facility] Comment on above: Performed By: #### 7 25605582, 4598760, 68301212, 1264097, 019431920, 51170056 #### [facility] [address] [place] [address] Mata 07-14-2023 L Specimen: [id number] Received: 07/15/23-1303 Status: DENA Sifuentes Num: [id number] Spec Type: Cytology Subm Dr: MARTA PUENTE MD Tissues: A FNA SLIDES NOPATH (LT THYROID NOD) Procedures: Cyto Int and Re, PAPSTN/5 Age/ Patient Sex Location Account Attending Physician Jessica Griffiths 37/F [facility] [id number] MARTA PUENTE MD SPEC NUM: [id number] RECD: 07/15/23 STATUS: DENA BRYANT NUM: [id number] KANCHAN: 07/14/23- SUBM DR: MARTA PUENTE MD ENTERED: 07/15/23 [facility] DR: Richie,Lab SPEC TYPE: Cytology DEPT: [facility] ENTERED BY: [id number] RECV BY: [id number] ORDERED: Cyto Int and Re, PAPSTN/5 ORDERED: Cyto Int and Re, PAPSTN/5 Pathological Diagnosis Left thyroid mid lobe nodule, FNA cytology: - Adequate but slightly limited for assessment - The [place] system is category 2: Benign - A [...] [id number] Received: 07/15/23 Status: ADELEJake Sifuentes Num: [id number] Spec Type: Cytology Subm Dr: MARTA PUENTE MD Tissues: A FNA SLIDES NOPATH (LT THYROID NOD) Procedures: Cyto Int and Re, PAPSTN/5 -- Patient: Jessica Griffiths [id number] (Continued) -- Specimen: [id number] Received: 07/15/23 (Continued) Signed (signatu re on file) ChinRon Correa MD 07/16/231122 -- Specimen: [id number] Received: 07/15/23 Status: DENA Sifuentes Num: [id number] Spec Type: Cytology Subm Dr: MARTA PUENTE MD Tissues: A FNA SLIDES NOPATH (LT THYROID NOD) Procedures: Cyto Int and Re, PAPSTN/5 -- Patient: Jessica Griffiths [id number] (Continued) -- Specimen: [id number] Received: 07/15/23 (Continued) CPT Codes 27112 -- -- Specimen: [id number] Received: 07/15/23 Status: DENA Sifuentes Num: [id number] Spec Type: Cytology Subm Dr: MARTA PUENTE MD Tissues: A FNA SLIDES NOPATH (LT THYROID NOD) Procedures: Cyto Int and Lexi PAPSTN/5 -- Patient: Jessica Griffiths [id number] (Continued) -- Signed (signatu re on file) Alfonso Correa MD 07/16/23 1123 Normal [facility] [place] Thyroid Imaging w/ Uptk Angelito [...] 203.5 Imaging Post Administration (hrs): 24 Normal [facility] CHEMISTRYOrdered By: SYSTEM SYSTEM on 07-08-2023 [...] for Treatmenton 06-23 Consent for Treatment [id number]#1.00TIFF Normal [facility] Lipid Panelon 07-08-2023 Cholesterol [Mass/Vol] 145 mg/dL Normal 120-200 [facility] Comment on above: Performed By: #### 2 818939 ####[facility] [address] [place] [address] Cholesterol in HDL [Mass/Vol] 62 mg/dL Invalid Interpretation Code [facility] Comment on above: Result Comment: '>= 60 LOW RISK' '<= 40 HIGH RISK' Performed By: #### 2 473065 ####[facility] [address] [place] [address] Cholesterol in LDL [Mass/Vol] 76 mg/dL Normal <=129 [facility] Comment on above: Performed By: #### 2 714174 ####[facility] [address] [place] [address] Cholesterol in VLDL [Mass/Vol] 10 mg/dL Normal 7-40 [facility] Comment on above: Performed By: #### 2 640791 ####[facility] [address] [place] [address] Triglyceride [Mass/Vol] 52 mg/dL Normal <=149 [facility] Comment on above: Performed By: #### 2 236728 ####[facility] [address] [place] [address] UA With Cult Reflexon 2023 Bacteria LM Ql (Urine sed) 1+ /HPF Abnormal Trace [facility] Comment on above: Performed By: #### 1 8020791 ####[facility] [address] [place] [address] Bilirubin Ql (U) Negative Normal Negative [facility] Comment on above: Performed By: #### 1 6760167 ####[facility] [address] [place] [address] Clarity (U) CLEAR Normal Clear [facility] Comment on above: Performed By: #### 1 3285527 ####[address] [address] Color (U) YELLOW Normal Yellow [facility] Comment on above: Performed By: #### 1 5121628 ####[address] [address] Epithelial cells.squamous LM.HPF (Urine sed) [#/Area] /[HPF] Normal 0-2 [facility] Comment on above: Performed By: #### 1 6047949 ####[address] [address] Glucose Test strip (U) [Mass/Vol] Negative Normal Negative [facility] Comment on above: Performed By: #### 1 8437473 ####[facility] [address] [place] [address] Hemoglobin Ql (U) Negative Normal Negative [facility] Comment on above: Performed By: #### 1 6871411 ####[facility] [address] [place] [address] Ketones (U) [Mass/Vol] TRACE Abnormal Negative [facility] Comment on above: Performed By: #### 1 2713768 ####[facility] [address] [place] [address] [place].plasma/Lithi um.RBC (Bld) [Mass ratio] 0-3 Normal 0-3 [facility] Comment on above: Performed By: #### 1 3950454 ####[facility] [address] [place] [address] Mucus Ql (Urine sed) 2+ Normal [facility] Comment on above: Performed By: #### 1 0909194 ####[address] [address] Nitrite Ql (U) Negative Normal Negative [facility] Comment on above: Performed By: #### 1 0763759 ####[address] [address] pH (U) 6.5 [pH] Invalid Interpretation Code 5.0-9.0 [facility] Comment on above: Performed By: #### 1 5177703 ####[address] [address] Protein (U) [Mass/Vol] Negative Normal Negative [facility] Comment on above: Performed By: #### 1 4675732 ####[address] [address] Specific gravity (U) [Rel density] 1.015 Invalid Interpretation Code 1.005-1.030 [facility] Comment on above: Performed By: #### 1 2172538 ####[address] [address] Type of Urine collection method Clean Catch Normal [facility] Comment on above: Performed By: #### 1 3910178 ####[address] [address] Urobilinogen Qn (U) 0.2 {Dylan'U}/dL Normal 0.0-1.0 [facility] Comment on above: Performed By: #### 1 9784690 ####[address] [address] WBC Auto Ql (U) Negative Normal Negative [facility] Comment on above: Performed By: #### 1 5445943 ####[address] [address] WBC LM.HPF (Urine sed) [#/Area] 0-5 Normal 0-5 [facility] Comment on above: Performed By: #### 1 5203417 ####[address] [address] URINALYSISOrdered By: Jennifer morris on 07-08-2023 Bacteria [...] sed) [#/Area] /[HPF] Normal 0-2/HPF [facility] UA Auto SS Glucose Test strip (U) [Mass/Vol] Negative (07/08/23 7:42 AM) Normal Negative [facility] UA Auto SS Hemoglobin Ql (U) Negative (07/08/23 7:42 AM) Normal Negative [facility] UA Auto SS Ketones (U) [Mass/Vol] Trace *ABN* (07/08/23 7:42 AM) Invalid Interpretation Code Negative [facility] UA Auto SS [place].plasma/Lithi um.RBC (Bld) [Mass ratio] 0-3 /HPF Normal 0-3/HPF [...] [facility] UA Auto SS Urobilinogen Qn (U) 0.4698652 {Dylan'U}/dL Normal 0.0 - 1.0 EU/dL [facility] UA Auto SS WBC Auto Ql (U) Negative (07/08/23 7:42 AM) Normal Negative [facility] UA Auto SS WBC LM.HPF (Urine sed) [#/Area] 0-5 /HPF Normal 0-5/HPF [facility] UA Auto SS Insurance Correspondenceon 0 07-01-2023 Insurance Correspondence [id number]#1.00TIFF Normal [facility] Physician Referralon 024 Physician Referral [id number]#1.00TIFF Normal [facility] Consent for Treatmenton Consent for Treatment [id number]#1.00TIFF Normal [facility] US Thyroidon 06-27-2023 [place] Thyroid [...] YAMINI Technologist: FAISAL Price [facility] Medicine Office/Clini c Noteon 06-24-2023 [facility] Medicine Office/Clinic Note Chief Complaint Discuss thyroid [...] with voice recognition artificial intelligence software, specifically eriQoo, Dokkankom and or Mumart. Substitutions may have occurred due to the inherent limitations of voice recognition and artificial intelligence software. Documentation services were performed after patient or guardian consented to allow [facility] to record this visit. D (more content not included)... Normal [facility] Comment on above: Result Comment: Elec tronically Signed By: Paul Bass MD\.br\Date and Time Signed: 06/24/23 18:25 EST\.br\Electronically Co-Signed By: Jaja Alex\.br\Date and Time Co-Signed: 06/24/23 18:04 EST T3 Freeon 06-22-2023 Free T3 [Mass/Vol] 4.2 pg/mL Invalid Interpretation Code 2.0-4.4 [facility] Comment on above: Result Comment: Perf ormed at: [facility] [address] [id number] PhD Mahnaz Conklin Performed By: #### 2 004349, 9772322, 4809053, 65301757 ####[facility] [address] [place] [address] Auto Diffon 06-21-2023 Basophils/100 WBC (Bld) 0.3 % Normal 0.0-2.0 [facility] Comment on above: Order Comment: Order Added by Discern Expert. Performed By: #### 1 4388256, 3879985, 9392764, 3794759, 5866811 #### [facility] [address] [place] [address] Basophils/Leukocytes Auto (Bld) [Pure # fraction] 0.0 E9/L Normal 0.0-0.2 [facility] Comment on above: Order Comment: Order Added by Discern Expert. Performed By: #### 1 6383264, 7715197, 3651689, 6545706, 5617698 #### [facility] [address] [place] [address] Eosinophils/100 WBC (Bld) 0.6 % Normal 0.0-8.0 [facility] Comment on above: Order Comment: Order Added by Discern Expert. Performed By: #### 1 7213928, 9570057, 5087580, 3954450, 1523500 #### [facility] [address] [place] [address] Eosinophils/Leukocyt es Auto (Bld) [Pure # fraction] 0.0 E9/L Normal 0.0-0.5 [facility] Comment on above: Order Comment: Order Added by Discern Expert. Performed By: #### 1 2653784, 4944289, 3544034, 8757309, 6629866 #### [facility] [address] [place] [address] Lymphocytes/100 WBC (Bld) 20.6 % Normal 14.0-50.0 [facility] Comment on above: Order Comment: Order Added by Jay Expert. Performed By: #### 1 9481046, 2079376, 7722048, 7539870, 8982622 #### [facility] [address] [place] [address] Lymphocytes/Leukocyt es Auto (Bld) [Pure # fraction] 1.7 E9/L Normal 1.0-4.0 [facility] Comment on above: Order Comment: Order Added by Jay Expert. Performed By: #### 1 2231540, 9304360, 9406862, 7433173, 5055115 #### [facility] [address] [place] [address] Monocytes/100 WBC (Bld) 6.6 % Normal 4.0-14.0 [facility] [facility] Comment on above: Order Comment: Order Added by Discern Expert. Performed By: #### 1 [id number], 2847903, 6668359, 4443624, [id number] #### [facility] [address] [place] [address] Monocytes/Leukocytes Auto (Bld) [Pure # fraction] 0.5 E9/L Normal 0.2-1.0 [facility] Comment on above: Order Comment: Order Added by Discern Expert. Performed By: #### 1 [id number], 1808990, 3403152, 2792658, [id number] #### [facility] [address] [place] [address]141 Neutrophils/100 WBC (Bld) 71.9 % Normal 36.0-75.0 [facility] Comment on above: Order Comment: Order Added by Discern Expert. Performed By: #### 1 [id number], 0844537, 5452607, 0952024, 9391311 #### [facility] [address] [place] [address] 12956 Neutrophils/Leukocyt es Auto (Bld) [Pure # fraction] 5.8 E9/L Normal 2.0-7.5 [facility] Comment on above: Order Comment: Order Added by Discern Expert. Performed By: #### 1 [id number], 7644119, 4863227, 0633835, 9383167 #### [facility] [address] [place] [address] 67769 CBC w/ Auto Diffon 3 Erythrocyte distribution width (RBC) [Ratio] 12.6 % Normal 10.9-14.2 [facility] Comment on above: Performed By: #### 1 [id number], 1198933, 5612749, 6697541, 6775238 #### [facility] [address] [place] [address]609 Hematocrit (Bld) [Volume fraction] 37.8 % Normal 34.0-46.0 [facility] Comment on above: Performed By: #### 1 2308932, 9600908, 5779387, 3582773, 5205204 #### [facility] [address] [place] [address] 36311 Hemoglobin (Bld) [Mass/Vol] 12.7 g/dL Normal 12.0-16.0 [facility] Comment on above: Performed By: #### 1 4973863, 3177428, 5617690, 5102173, 6958161 #### [facility] [address] [place] [address] MCH (RBC) [Entitic mass] 32.2 pg Normal 27.0-34.0 [facility] Comment on above: Performed By: #### 1 9309497, 4847630, 1950671, 3089835, 2173580 #### [facility] [address] [place] [address] MCHC (RBC) [Mass/Vol] 33.8 g/dL Normal 31.4-36.0 [facility] Comment on above: Performed By: #### 1 8856736, 2868753, 6390926, 1181203, 1955565 #### [facility] [address] [place] [address] 62983 MCV (RBC) [Entitic vol] 95.5 fL Normal 80.0-100.0 [facility] Comment on above: Performed By: #### 1 7981687, 9803831, 4673657, 3268882, 2167496 #### [facility] [address] [place] [address] 77832 Platelet mean volume (Bld) [Entitic vol] 8.5 fL Normal 6.4-10.8 [facility] Comment on above: Performed By: #### 1 2712579, 6690544, 6468124, 0756208, 7403828 #### [facility] [address] [place] [address] Platelets (Bld) [#/Vol] 303.0 E9/L Normal 150.0-500.0 [facility] Comment on above: Performed By: #### 1 5076301, 6875221, 5716693, 0786575, 5014805 #### [facility] [address] [place] [address] 36891 RBC (Bld) [#/Vol] 4.0 E12/L Low 4.3-5.9 [facility] Comment on above: Performed By: #### 1 8851840, 8376551, 8620993, 2070502, 0234412 #### [facility] [address] [place] [address] WBC corrected for nucl RBC Auto (Bld) [#/Vol] 8.1 E9/L Normal 4.0-11.0 [facility] Comment on above: Performed By: #### 1 6605887, 6393497, 3311694, 4017440, 7984502 #### [facility] [address] [place] [address] CHEMISTRYOrdered By: SYSTEM SYSTEM on 06-21-2023 Albumin [Mass/Vol] 3.8 g/dL Normal 3.3 - 5.0 gm/dL R emisol Chem Albumin/Globulin [Mass ratio] 1.3 {ratio} Normal 1.1 - 2.2 Remisol Chem Alk Phos 83 [iU]/d Normal 21 - 98 Int._Unit/L Remisol Chem ALT 10 [iU]/d Normal 6 - 46 Int._Unit/L Remisol Chem Anion gap [Moles/Vol] 10 mmol/L Normal 6 - 16 mEq/L Remisol Chem AST 15 [iU]/d Normal 5 - [...] 06-21-2023 Albumin [Mass/Vol] 3.8 g/dL Normal 3.3-5.0 [facility] Comment on above: Performed By: #### 1 8367977, 0162515, 1336056, 9988718, 4477947 #### [facility] [address] [place] [address] Albumin/Globulin [Mass ratio] 1.3 {ratio} Normal 1.1-2.2 [facility] Comment on above: Performed By: #### 1 7932872, 8176633, 9444046, 0749467, 6142082 #### [facility] [address] [place] [address] Alk Phos 83 Int._Unit/L Normal 21-98 [facility] Comment on above: Performed By: #### 1 7339727, 1708047, 0467978, 3713125, 8258460 #### [facility] [address] [place] [address] ALT 10 Int._Unit/L Normal 6-46 [facility] Comment on above: Performed By: #### 1 5176570, 0778602, 8887300, 2970865, 2222788 #### [facility] [address] [place] [address] Anion gap [Moles/Vol] 10 mmol/L Normal 6-16 [facility] Comment on above: Performed By: #### 1 8886439, 6448887, 9612768, 3083053, 9010916 #### [facility] [address] [place] [address] AST 15 Int._Unit/L Normal 5-43 [facility] Comment on above: Performed By: #### 1 0147665, 1399548, 4597530, 1161398, 6392939 #### [facility] [address] [place] [address] Bili Total 0.5 mg/dL Normal 0.0-1.1 [facility] Comment on above: Performed By: #### 1 2536019, 9876917, 3958800, 6185494, 9352149 #### [facility] [address] [place] [address] BUN/Creat Ratio 22 No Units High 10-20 [facility] Comment on above: Performed By: #### 1 9519991, 8085289, 2120139, 7097393, 4766844 #### [facility] [address] [place] [address] Calcium [Mass/Vol] 8.7 mg/dL Low 8.9-11.1 [facility] Comment on above: Performed By: #### 1 2283049, 7685392, 3617892, 9469579, 4538570 #### [facility] [address] [place] [address] Chloride [Moles/Vol] 103 mmol/L Normal 101-111 [facility] Comment on above: Performed By: #### 1 4147098, 6559308, 1679064, 2575995, 1000595 #### [facility] [address] [place] [address] CO2 [Moles/Vol] 29 mmol/L Normal 21-31 [facility] Comment on above: Performed By: #### 1 8043385, 5863414, 5322316, 9578341, 6793182 #### [facility] [address] [place] [address] Creatinine [Mass/Vol] 0.6 mg/dL Normal 0.5-1.3 [facility] Comment on above: Performed By: #### 1 6197007, 9879745, 2763125, 2146918, 5048767 #### [facility] [address] [place] [address] Globulin (S) [Mass/Vol] 3.0 g/dL Normal 1.4-4.0 [facility] Comment on above: Performed By: #### 1 6240025, 5589513, 0148065, 8287116, 6625511 #### [facility] [address] [place] [address] Glucose [Mass/Vol] 84 mg/dL Normal 55-199 [facility] Comment on above: Performed By: #### 1 5975663, 7139100, 0215343, 6056792, 4732525 #### [facility] [address] [place] [address] Potassium [Moles/Vol] 3.9 mmol/L Normal 3.5-5.3 [facility] Comment on above: Performed By: #### 1 5329402, 0501127, 6872367, 0441965, 2407390 #### [facility] [address] [place] [address] Protein [Mass/Vol] 6.8 g/dL Normal 6.0-7.8 [facility] Comment on above: Performed By: #### 1 0447343, 7653300, 8137174, 9216038, 6019671 #### [facility] [address] [place] [address] Sodium [Moles/Vol] 138 mmol/L Normal 135-145 [facility] Comment on above: Performed By: #### 1 9635204, 8535514, 8588981, 4679697, 3384980 #### [facility] [address] [place] [address] Urea nitrogen [Mass/Vol] 13 mg/dL Normal 5-21 [facility] Comment on above: Performed By: #### 1 4421211, 8650898, 9194981, 8149003, 7125258 #### [facility] [address] [id number] Consent for Treatmenton 05-25 Consent for Treatment [id number]#[id number] Normal [facility] Free T4on 06-21-2023 Free T4 [Mass/Vol] 1.37 ng/dL Normal 0.58-1.64 [facility] Comment on above: Performed By: #### 1 0500735, 9868804, 8074643, 8415395, 8802677 #### [facility] [address] [place] [address] HEMATOLOGYOrdered By: SYSTEM SYSTEM on 06-21-2023 Basophils/100 WBC (Bld) 0.3 % Normal 0.0 - 2.0 % [facility]eAutoSS Basophils/Leukocytes Auto (Bld) [Pure # fraction] 0.0 E9/L Normal 0.0 - 0.2 E9/L [facility] Eosinophils/100 WBC (Bld) 0.6 % Normal 0.0 - 8.0 % [facility] Eosinophils/Leukocyt es Auto (Bld) [Pure # fraction] 0.0 E9/L Normal 0.0 - 0.5 E9/L [facility]Auto[facility] Lymphocytes/100 WBC (Bld) 20.6 % Normal 14.0 - 50.0 % [facility] Lymphocytes/Leukocyt es Auto (Bld) [Pure # fraction] 1.7 E9/L Normal 1.0 - 4.0 E9/L [facility]Auto[facility] Monocytes/100 WBC (Bld) 6.6 % Normal 4.0 - 14.0 % [facility] Monocytes/Leukocytes Auto (Bld) [Pure # fraction] 0.5 E9/L Normal 0.2 - 1.0 E9/L [facility] Neutrophils/100 WBC (Bld) 71.9 % Normal 36.0 - 75.0 % [facility]Auto[facility] Neutrophils/Leukocyt es Auto (Bld) [Pure # fraction] 5.8 E9/L [...] 33.8 g/dL Normal 31.4 - 36.0 gm/dL [facility] HemeAuto[facility] MCV (RBC) [Entitic vol] 95.5 [...] [facility] Physician Orderon 06-21-2023 Physician Order [id number]#[id number] Normal [facility] T3 Uptakeon 06-21-2023 T3 Uptake 46.6 % Normal 32.0-48.4 [facility] Comment on above: Performed By: #### 2 867400, 0582957, 8384985, 12216781 ####[facility] [address] [place] [address] T4 Totalon 06-21-2023 T4 18.8 microgram/dL High 4.6-9.1 [facility] Comment on above: Performed By: #### 2 975755, 8904134, 3959192, 29822731 ####[facility] [address] [place] [address] TSHon 06-21-2023 TSH Qn 0.07 m[IU]/L Low 0.34-5.60 [facility] Comment on above: Performed By: #### 2 610839, 6434621, 1100940, 45180367 ####[facility] [address] [place] [address] eGFRon 06-21-2023 GFR/1.73 sq M.predicted among non-blacks MDRD (S/P/Bld) [Vol rate/Area] mL/min/{1.73_m2} Normal >=59 [facility] Comment on above: Order Comment: Order added by Discern Expert. Performed By: #### 1 0584376, 9483483, 7970244, 7486781, 9378857 #### [facility] [address] [place] [address] Family Medicine Office/Clini c Noteon 06-20-2023 Family [...] with voice recognition software. Occasional wrong-word or ?ecmgx-z-hizq? substitutions may have occurred due to the [...] know she has been working with her PARA MACHINE OPERATOR in regards to blood test and lab [...] lost some weight. But again is seeing PARA MACHINE OPERATOR in regards to these fluctuations denies any [...] with prim (more content not included)... Normal [facility] Comment on above: Result Comment: [...] weeks. Home care treatment may include: ? Eukv-ljm-vfgqmgu pain relievers. ? A warm, moist cloth placed over the ear. Severe cases may require a procedure to insert tubes in the ears (tympanostomy tubes) to drain the fluid. Follow these instructions at home: ? Take vbcc-knu-npibkam and prescription medicines only as told by [...] provider. Document Revised: 10/04/2021 Document Reviewed: 10/04/2021 [employer] Patient Education ? 2022 [employer]. Endocrinology Thyroid Nodule A thyroid nodule is [...] or hyperthy (more content not included)... Normal [facility] MRI Spine Cervical w/o Contr [...] YAMINI Technologist: CAPRI Technical Comments None Normal [facility] Consent for Treatmenton 12-1 8-2023 Consent for Treatment [id number]#1.00TIFF Normal [facility] RAD - MRI Screening Formon 1 08-10-2022 RAD - MRI Screening Form [id number]#1.00TIFF Normal [facility] Physician Orderon 06-03-2023 Physician Order [id number]#1.00TIFF Normal [facility] CHEMISTRYOrdered By: SYSTEM SYSTEM on 12-03-2021 Free T4 [Mass/Vol] 0.66 ng/dL Normal 0.58 - 1.64 ng/dL [facility] Remisol Glucose post fast [Mass/Vol] 90 mg/dL Normal 55 - 99 mg/dL [facility] Remisol TSH Qn 2.54 m[IU]/L Normal 0.34 - 5.60 mcIU/mL [facility] Remisol Reference Laboratory Testing Ordered By: Kyp DomainUser on 07-13-2021 SARS-CoV-2 (COVID-19) RNA KEITH+probe Ql (Resp) Not detected Invalid Interpretation Code Not Detected [facility] SendOutsSS Comment on above: Result Comment: This nucleic acid amplification test was developed and its performance characteristics determined by [employer]. Nucleic acid amplification tests include RT-PCR and [...] detected) result in this assay. Performed at: [address] [id number] PhD Mahnaz Conklin Vital Signs Date Time Vital Sign Value Performing Clinician Facility 04-06-2024 08:21-0400 Body height 167.6 cm Petra Calle LAW REPORTER Work Phone: [facility] 04-06-2024 08:21-0400 Body mass index (BMI) [Ratio] 21.63 kg/m2 Petra Pillair LAW REPORTER Work Phone: [facility] 04-06-2024 08:21-0400 Body weight 60.78 kg Petra Jennifermor LAW REPORTER Work Phone: [facility] 04-06-2024 08:21-0400 Diastolic blood pressure 76 mm[Hg] Petra Calle LAW REPORTER Work Phone: [facility] 04-06-2024 08:21-0400 Heart rate 76 /min Petra Calle LAW REPORTER Work Phone: [facility] 04-06-2024 08:21-0400 SaO2% (BldA) [Mass fraction] 98 % Petra Rosasr LAW REPORTER Work Phone: [facility] 04-06-2024 08:21-0400 Systolic blood pressure 118 mm[Hg] Petra Calle LAW REPORTER Work Phone: [facility] 03-01-2024 08:30-0400 Body height 167.6 cm Marta Puente MD Work Phone: [facility] 03-01-2024 08:30-0400 Body mass index (BMI) [Ratio] 21.79 kg/m2 Marta Puente MD Work Phone: [facility] 03-01-2024 08:30-0400 Body weight 61.24 kg Marta Puente MD Work Phone: [facility] 03-01-2024 08:30-0400 Diastolic blood pressure 69 mm[Hg] Marta Puente MD Work Phone: [facility] 03-01-2024 08:30-0400 Systolic blood pressure 100 mm[Hg] Marta Puente MD Work Phone: [facility] 11-12-2023 12:45-0400 Blood Pressure Location Paul Gudimella [facility] 11-12-2023 12:45-0400 Diastolic blood pressure 76 mm[Hg] Paul Gudimella [facility] 11-12-2023 12:45-0400 Heart rate 72 /min Paul Gudimella [facility] 11-12-2023 12:45-0400 SaO2% (BldA) [Mass fraction] 99 % Paul Gudimella [facility] 11-12-2023 12:45-0400 Systolic blood pressure 116 mm[Hg] Paul Gudimella [facility] 10-07-2023 10:22-0400 Blood Pressure Location Rosendoeduardo JUAN LUIS [facility] 10-07-2023 10:22-0400 Body temperature 97.88 [degF] Rosendodeandrasanjeev BROWN [facility] 10-07-2023 10:22-0400 Diastolic blood pressure 76 mm[Hg] Christopher BROWN [facility] 10-07-2023 10:22-0400 Heart rate 66 /min Rosendoopher BROWN [facility] 10-07-2023 10:22-0400 Respiratory rate 16 /min Rosendoopher BROWN [facility] 10-07-2023 10:22-0400 SaO2% (BldA) [Mass fraction] 100 % Christopher BROWN [facility] 10-07-2023 10:22-0400 Systolic blood pressure 116 mm[Hg] Nancy BARRIENTOS [facility] 08-04-2023 11:27-0500 Body height 167.6 cm Marta Puente MD Work Phone: [facility] 08-04-2023 11:27-0500 Body mass index (BMI) [Ratio] 21.14 kg/m2 Marta Puente MD Work Phone: [facility] 08-04-2023 11:27-0500 Body weight 59.42 kg Marta Puente MD Work Phone: [facility] 08-04-2023 11:27-0500 Diastolic blood pressure 81 mm[Hg] Marta Puente MD Work Phone: [facility] 08-04-2023 11:27-0500 Systolic blood pressure 111 mm[Hg] Marta Puente MD Work Phone: [facility] 07-24-2023 13:41-0500 Blood Pressure Location Paul Gudimella [facility] 07-24-2023 13:41-0500 Diastolic blood pressure 70 mm[Hg] Paul Gudimella [facility] 07-24-2023 13:41-0500 Heart rate 86 /min Paul Gudimella [facility] 07-24-2023 13:41-0500 SaO2% (BldA) [Mass fraction] 98 % Paul Gudimella [facility] 07-24-2023 13:41-0500 Systolic blood pressure 106 mm[Hg] Paul Gudimella [facility] 07-18-2023 16:16-0500 Blood Pressure Location Christdeandraer BROWN [facility] 07-18-2023 16:16-0500 Diastolic blood pressure 60 mm[Hg] Christopher BROWN [facility] 07-18-2023 16:16-0500 Heart rate 92 /min Christopher BROWN [facility] 07-18-2023 16:16-0500 Respiratory rate 16 /min Christdeandraer BROWN [facility] 07-18-2023 16:16-0500 SaO2% (BldA) [Mass fraction] 98 % Christdeandraer BROWN [facility] 07-18-2023 16:16-0500 Systolic blood pressure 90 mm[Hg] Christdeandraer BROWN [facility] 06-24-2023 13:49-0500 Blood Pressure Location Paul Gudimella [facility] 06-24-2023 13:49-0500 Diastolic blood pressure 72 mm[Hg] Paul Gudimella [facility] 06-24-2023 13:49-0500 Heart rate 89 /min Paul Gudimella [facility] 06-24-2023 13:49-0500 SaO2% (BldA) [Mass fraction] 97 % Paul Gudimella [facility] 06-24-2023 13:49-0500 Systolic blood pressure 98 mm[Hg] Paul Gudimella [facility] 06-20-2023 18:43-0500 Blood Pressure Location Filiberto Cramer [facility] 06-20-2023 18:43-0500 Body temperature 98.06 [degF] Filiberto Cramer [facility] 06-20-2023 18:43-0500 Diastolic blood pressure 76 mm[Hg] Filiberto Cramer [facility] 06-20-2023 18:43-0500 Heart rate 96 /min Filiberto Cramer [facility] 06-20-2023 18:43-0500 SaO2% (BldA) [Mass fraction] 98 % Filiberto Cramer [facility] 06-20-2023 18:43-0500 Systolic blood pressure 122 mm[Hg] Filiberto Cramer [facility] 12-28-2021 11:20-0400 Body height 167.64 cm Ric Tinoco Other [employer] Other 12-28-2021 11:20-0400 Body mass index (BMI) [Ratio] 21.14 kg/m2 Ric Tinoco Other [employer] Other 12-28-2021 11:20-0400 Body weight 59.42 kg Ric Tinoco Other [employer] Other 04-17-2021 15:40-0400 Body height 167.64 cm Ric Tinoco Other [employer] Other 04-17-2021 15:40-0400 Body mass index (BMI) [Ratio] 21.14 kg/m2 Ric Tinoco Other [employer] Other 04-17-2021 15:40-0400 Body weight 59.42 kg Ric Tinoco Other [facility] [employer] Other 05-31-2020 15:50-0500 Body weight 63.96 kg Kathycornelius Ghosh [facility] [place] , [place] 05-31-2020 15:50-0500 BP Diastolic 79 mm[Hg] Kathy [facility] [place] [facility] [place] 05-31-2020 15:50-0500 BP Systolic 107 mm[Hg] Kathy [facility] [place] [facility] [place] 05-31-2020 15:50-0500 Pulse (Heart Rate) 67 /min Kathy [facility] [place] [place] 05-31-2020 15:50-0500 Pulse Oximetry 100 % Kathy CastañedaBureo [facility] [place] , [place] 05-31-2020 15:50-0500 Respiratory Rate 20 /min [facility] [place] Encounters Encounter Date Encounter Type Care Provider Facility Start: 05-22-2024 End: 05-24-2024 Alyx Park MD Work Phone: [facility] Comment on above: Menopausal symptoms Start: 05-10-2024 End: 05-10-2024 ambulatory SUHAS Whitehead SUMI Facility:[facility] Start: 05-10-2024 End: 05-10-2024 Patient encounter procedure SUHAS JONAS [facility] Start: 04-06-2024 End: 04-06-2024 ambulatory PETRA CALLE Not Available Start: 04-06-2024 End: 04-06-2024 Office outpatient visit 15 minutes Petra Calle NP Work Phone: [facility] Comment on above: Cervical radiculopat hy (Primary Dx); Lumbosacral radiculopathy; Paresthesias; Migraine without aura and without status migrainosus, not intractable (CMS/HCC); Myalgia Start: 03-29-2024 End: 03-29-2024 ambulatory Suzie Alegria MD Facility: [facility] Start: 03-08-2024 End: 03-08-2024 Bamboo flowsheet Edwin Biswas DO Work Phone: [facility] Start: 03-08-2024 End: 03-08-2024 Bamboo flowsheet Edwin Biswas DO Work Phone: [facility] Start: 03-08-2024 End: 03-08-2024 Patient encounter procedure Edwin Biswas DO Work Phone: [facility] Comment on above: Lumbosacral radiculo shira (Primary Dx); Low back pain at multiple sites; Paresthesia; Sacral radiculopathy Start: 03-08-2024 End: 03-08-2024 ambulatory EDWINDAKOTA BISWAS Not Available Start: 03-01-2024 End: 03-01-2024 Bamboo flowsheet Marta Puente MD Work Phone: [facility] Start: 03-01-2024 End: 03-01-2024 Bamboo flowsalexandre Puente MD Work Phone: [facility] Start: 03-01-2024 End: 03-01-2024 Office outpatient visit 15 minutes Marta Puente MD Work Phone: [facility] Comment on above: Mass of thyroid nadir on (Primary Dx) Start: 03-01-2024 End: 03-01-2024 ambulatory MARTA PUENTE Not Available Start: 01-13-2024 End: 01-13-2024 ambulatory Marta Puente Facility:[facility] Start: 01-13-2024 End: 01-13-2024 Patient encounter procedure Marta Puente [facility] Start: 11-12-2023 End: 11-12-2023 ambulatory Paul Gudimella Facility:[facility] Start: 11-12-2023 End: 11-12-2023 Patient encounter procedure Paul Gudimella [facility] Start: 10-21-2023 End: 10-21-2023 Patient encounter procedure SUHAS JONAS [facility] Start: 10-21-2023 End: 10-21-2023 ambulatory PETRA CALLE Not Available Start: 10-07-2023 End: 10-07-2023 [facility]ulatory [facility] Start: 10-07-2023 End: 10-07-2023 Patient encounter procedure Nancy BARRIENTOS [facility] Start: 09-10-2023 End: 09-10-2023 ambulatory SUHAS JONAS Facility:[facility] Start: 09-10-2023 End: 09-10-2023 Patient encounter procedure SUHAS JONAS [facility] Start: 08-04-2023 Bamboo flowsheet Marta rubio MD Work Phone: [facility] Start: 08-04-2023 Bamboo flowsheet Marta rubio MD Work Phone: [facility] Start: 08-04-2023 End: 08-04-2023 Office outpatient visit 15 minutes Marta Puente MD Work Phone: [facility] Comment on above: Mass of thyroid nadir on (Primary Dx); Hyperthyroidism (CMS/HCC) Start: 08-04-2023 End: 08-04-2023 ambulatory MARTA PUENTE Not Available Start: 07-29-2023 ambulatory Nancy BARRIENTOS Facil ity:[facility] Start: 07-24-2023 End: 07-24-2023 ambulatory Paul Bethmelkeysha Facility:[facility] Start: 07-24-2023 End: 07-24-2023 Patient encounter procedure Paul Gudimella [facility] Start: 07-18-2023 End: 07-18-2023 ambulatory Nancy BARRIENTOS Facility:[facility] Start: 07-18-2023 End: 07-18-2023 Patient encounter procedure Nancy JUAN LUIS [facility] Start: 07-18-2023 End: 07-18-2023 ambulatory Paul Gudimella Facility:[facility] Start: 07-18-2023 End: 07-18-2023 Patient encounter procedure Paul Gudimella [facility] Start: 07-14-2023 End: 07-14-2023 ambulatory MD Ruben Barrientos Work Phone: [facility] Work Phone: Start: 07-14-2023 End: 07-14-2023 Departed Referred MD Ruben Barrientos Work Phone: [facility] Start: 07-08-2023 End: 10-07-2023 ambulatory Paul Gudimella Facility:[facility] Start: 07-08-2023 End: 10-07-2023 Recurring Paul Gudimella [facility] Start: 07-04-2023 End: 07-04-2023 ambulatory MARTA WEBBRamón Not Available Start: 06-27-2023 ambulatory Paul Gudimella Facilit y:[facility] Start: 06-27-2023 End: 06-27-2023 ambulatory Paul Gudimella Facility:[facility] Start: 06-27-2023 End: 06-27-2023 Patient encounter procedure Paul Gudimella [facility] Start: 06-24-2023 End: 06-24-2023 ambulatory Paul Gudimella Facility:[facility] Start: 06-24-2023 End: 06-24-2023 Patient encounter procedure Paul Guannamella [facility] Start: 06-21-2023 End: 06-21-2023 ambulatory Filiberto Cramer Facility:[facility] Start: 06-21-2023 End: 06-21-2023 Patient encounter procedure Filiberto Cramer [facility] Start: 06-20-2023 End: 06-20-2023 ambulatory Filiberto Cramer Facility:[facility] Start: 06-20-2023 End: 06-20-2023 Patient encounter procedure Filiberto Cramer [facility] Start: 06-09-2023 End: 06-09-2023 ambulatory Narendranath Lakshmipathy Facility:[facility] Start: 06-09-2023 End: 06-09-2023 Patient encounter procedure Narendranath Lakshmipathy [facility] Start: 05-07-2023 End: 05-07-2023 ambulatory KRAIG PARK Not Available Start: 04-28-2023 End: 04-28-2023 Patient encounter procedure EBER POTTS [facility] Start: 11-05-2022 End: 11-06-2022 ambulatory NARENDRANATH LAKSHMIPATHY . Facility:[facility] Start: 10-22-2022 End: 10-22-[address] DOCTOR ALEJANDRE Facility:[facility] Start: 10-01-2022 End: 10-02-2022 ambulatory ISAURA KELLY . Facility:[facility] Start: 08-27-2022 End: 08-27-2022 ambulatory Ric Tinoco Other [employer] Other Start: 08-27-2022 Telephone encounter Ric Tinoco [facility] Start: 06-11-2022 End: 06-12-[address] HERB RIVERO . Facility:[facility] Start: 05-28-2022 End: 05-28-[address] HERB RIVERO . Facility:[facility] Start: 03-05-2022 End: 03-06-[address] HERB RIVERO . Facility:[facility] Start: 12-28-2021 End: 12-28-2021 ambulatory Ric Tinoco Other [employer] Other Start: 12-28-2021 Office outpatient vi sit 15 minutes Ric Tinoco [facility] Neurosurgery Start: 12-03-2021 End: 12-03-2021 Patient encounter procedure Kraig Park [facility] Start: 11-08-2021 End: 11-09-[address] HERB RIVERO . Facility: Start: 07-13-2021 End: 10-11-2021 Patient encounter procedure Nancy BARRIENTOS [facility] Start: 04-17-2021 Office outpatient vi sit 15 minutes Ric Tinoco [facility] Start: 05-31-2020 End: 05-31-2020 Emergency department patient visit KATHY GHOSH [facility] Start: 05-31-2020 End: 05-31-2020 Emergency department patient visit Kathy Ghosh Work Phone: [facility] ED Comment on above: Chest wall pain (Brunilda michelet Dx) Start: 12-30-2018 End: 01-07-2019 Patient encounter procedure PROVIDER UNKNOWN Facility:[facility] Procedures Date Procedure Procedure Detail Performing Clinician Start: 03-08-2024 End: 03-08-2024 Needle emg ea extremty w/paraspinl area complete Edwin Biswas DO Work Phone: Start: 07-14-2023 Fine biopsy needle, device (physical [...] anterior approach Nancy BARRIENTOS Comment on above: [facility] Start: 06-19-2018 Removal of sebaceous cyst Nancy BARRIENTOS Comment on above: Right inner thigh Start: 06-23-2006 Augmentation mammoplasty Nancy BARRIENTOS H/O: hysterectomy S/P laparoscop ic hysterectomy MD Ruben Barrientos Work Phone: laparoscopy 4 Nancy [facility] Comment on above: 2014 Dr. Chantel narvaez metatilio laparoscopy 5 Nancy [facility] Comment on above: 2014 Dr. Chantel narvaez metatilio lumbar microdisectomy 5 Rex BARRIENTOS Comment on above: 10/2017 Dr. Barnes @ [facility] lumbar microdisectomy 6 Rex BARRIENTOS Comment on above: 10/2017 Dr. Barnes @ [facility] 6 Rosendoeduardo BIRCH Comment on above: per Dr. Glez 8 wisdom teeth extracted Ruben BARRIENTOS Plan of Treatment Date Care Activity Detail Author Start: 05-31-2026 Screening for malignant neoplasm of cervix [facility] Start: 09-20-2024 End: 09-20-2024 Patient encounter procedure 09/20/2024 8:40 AM EDT Office Visit [facility] [address] [place] [phone] Petra Calle, LAW REPORTER [address] [place] [address] [facility] Start: 04-28-2024 End: 04-28-2024 Patient encounter procedure 04/28/2024 9:40 AM EST Office Visit [facility] [address] [place] [phone] Suhas Jonas MD [address] [place] [address] [facility] Start: 04-06-2024 End: 04-06-2024 Patient encounter procedure 04/06/2024 8:20 AM EDT Office Visit [facility] [address] [place] [id number] Petra Calle NP [address] [place] [address] [facility] Start: 03-08-2024 End: 03-08-2024 Patient encounter procedure [facility] Comment on above: Arrived Start: 03-01-2024 End: 03-01-2024 Patient encounter procedure 03/01/2024 8:30 AM EDT Office Visit [facility] [address] [place] [phone] Marta Puente MD [address] [facility] [address] [place] [address] Arrived [facility] Comment on above: Arrived Start: 02-22-2024 Influenza vaccination Influenza Vacc ine (#1) [facility] Start: 08-04-2023 End: 08-04-2023 Patient encounter procedure 08/04/2023 11:20 AM EST Office Visit [facility] [address] [place] [address] Marta Puente MD [address] [facility] [address] [place] [address] Arrived [facility] Comment on above: Arrived Start: 02-21-2023 Influenza vaccination Influenza Vacc ine (#1) [facility] Start: 02-22-2020 Influenza vaccination Flu vaccine (# 1) [place], [place] Start: 2005 Screening for malignant neoplasm of cervix Pap Smear [facility] EKG 12 Lead EKG 12 Lead ECG STAT 05/31/2020 4:01 PM EST [place], [place] Immunizations Immunization Date Immunization Notes Care Provider Fa cility 10-28-2020 COVID-19, mRNA, LNP-S, PF, 30 mcg/0.3 mL dose; Translations: [Pfizer-BioNTech COVID-19 Vaccine] Nancy BARRIENTOS [facility] Comment on above: Reason for Medicatio n: Prophylaxis 10-07-2020 COVID-19, mRNA, LNP-S, PF, 30 mcg/0.3 mL dose; Translations: [Pfizer-BioNTech COVID-19 Vaccine] Nancy BARRIENTOS [facility] Comment on above: Reason for Medicatio n: Prophylaxis 04-15-2020 influenza, injectable, quadrivalent, contains preservative Nancy BARRIENTOS [facility] 04-15-2020 influenza virus vaccine, unspecified formulation Marta Puente MD Work Phone: [facility] 03-23-2018 influenza virus vaccine, unspecified formulation Nancy BARRIENTOS [facility] 03-23-2017 influenza, injectable, quadrivalent, contains preservative Marta Puente MD Work Phone: [facility] 03-10-2013 tetanus toxoid, reduced diphtheria toxoid, and acellular pertussis vaccine, adsorbed Nancy BARRIENTOS [facility] Comment on above: Reason for Medicatio n: Other (see comment) 10-13-2007 tetanus toxoid, reduced diphtheria toxoid, and acellular pertussis vaccine, adsorbed Filiberto Cramer [facility] 10-24-1999 hepatitis A and hepatitis B vaccine Filiberto Cramer [facility] 01-25-1998 measles, mumps and rubella virus vaccine Filiberto Cramer [facility] NEGATED: Highlighted row has not occurred!07-18-2023 influenza virus vaccine, unspecified formulation Rosendodeandrasanjeev BARRIENTOS [facility] NEGATED: Highlighted row has not occurred!06-20-2023 influenza virus vaccine, unspecified formulation Filiberto Cramer [facility] Payers Date Payer Category Payer Self-pay [id number] 2023 Unknown 2022 Medicaid [id number] 2022 Medicaid [id number] 2006 Private Health Insurance [id number] 1984 Unknown [id number] 2.16.8 40.1.238013.3.579.2.647 1984 Unknown [id number] 2.16.84 0.1.057607.3.579.2.174 1984 Unknown [id number] 2.16.84 0.1.692773.3.579.2.593 1984 Unknown [id number] 2.16.84 0.1.788107.3.579.2.593 1984 Unknown [id number] 2.16.84 0.1.876808.3.579.2.593 1984 Unknown [id number] 2.16.84 0.1.875242.3.579.2.593 1984 Unknown [id number] 2.16.84 0.1.415161.3.579.2.593 1984 Unknown [id number] 2.16.84 0.1.473432.3.579.2.593 1984 Unknown [id number] 2.16.84 0.1.341583.3.579.2.593 1984 Unknown [id number] 2.16. 840.1.983184.3.579.2.196 1984 Unknown [id number] 2.16.84 0.1.566558.3.579.2.1259 1984 Unknown [id number] 2.16.84 0.1.983980.3.579.2.1259 1984 Unknown [id number] 2.16.84 0.1.157393.3.579.2.1259 1984 Unknown [id number] 2.16.84 0.1.374642.3.579.2.1259 1984 Unknown [id number] 2.16.84 0.1.884615.3.579.2.1259 1984 Unknown [id number] 2.16.84 0.1.663766.3.579.2.1259 1984 Unknown [id number] 2.16.840 .1.707892.3.579.2.1259 1984 Unknown [id number] 2.16.8 40.1.544137.3.579.2.727 1984 Unknown [id number] 2.16.8 40.1.123829.3.579.2.727 1984 Unknown [id number] 2.16.8 40.1.810487.3.579.2.727 1984 Unknown [id number] 2.16.8 40.1.954791.3.579.2.727 1984 Unknown [id number] 2.16.8 40.1.417038.3.579.2.727 1984 Unknown [id number] 2.16.8 40.1.735288.3.579.2.727 1984 Unknown [id number] 2.16.8 40.1.233631.3.579.2.727 1984 Unknown [id number] 2.16.8 40.1.205765.3.579.2.72 1984 Unknown [id number] 2.16.8 40.1.121709.3.579.2.72 1984 Unknown [id number] 2.16.8 40.1.324852.3.579.2 1984 Unknown [id number] 2.16.8 40.1.684129.3.579.2 1984 Unknown [id number] 2.16.8 40.1.675121.3.579.2 1984 Unknown [id number] 2.16.8 40.1.699258.3.579.27 1984 Unknown [id number] 2.16.8 40.1.637708.3.579.2 1984 Unknown [id number] 2.16.8 40.1.533310.3.579.2727 1984 Unknown [id number] 2.16.8 40.1.696891.3.579.2727 1984 Unknown [id number] 2.16.8 40.1.497486.3.579.2.727 1959 Private Health Insurance [id number] 1.2.840.738891.1.13.239.2.7.3.936681.315 Unknown [id number] 2.16.8 40.1.643958.3.579.2.531 Social History Date Type Detail Facility Start: 05-31-2020 End: 05-06-2023 Tobacco smoking status NHIS Never smoker [employer] Start: 05-31-2020 End: 05-06-2023 Tobacco use and exposure Never used [employer] Sex Assigned At Not on file [employer] Exposure to SARS-CoV -2 (event) Not sure [employer] Tobacco smoking status Never [facility] Start: 07-03-2023 End: 10-21-2023 Sex Assigned At Female [employer] Other Start: 1985 Sex Assigned At Female [facility] Start: 07-31-2023 End: 10-21-2023 Alcohol intake Ex-drinker (finding) [facility] Start: 07-03-2023 End: 10-21-2023 History of Social function [facility] How [...] fusion (ALIF) Orthopaedic bone screw, non-bioabsorbable, non-sterile +[id number] FDA Start: 12-06-2019 Anterior lumbar interbody fusion (ALIF) Orthopaedic bone screw, non-bioabsorbable, non-sterile +[id number] FDA Start: 12-06-2019 Anterior lumbar interbody fusion (ALIF) Bone-screw internal spinal fixation system, non-sterile +[id number] FDA Start: 12-06-2019 Anterior lumbar interbody fusion (ALIF) Bone-screw internal spinal fixation system, non-sterile +[id number] FDA Start: 12-06-2019 Anterior lumbar interbody fusion (ALIF) Spinal fusion graft kit ()[id number] FDA Start: 12-06-2019 Anterior lumbar interbody fusion (ALIF) Spinal bone screw, non-bioabsorbable ()[id number] FDA Start: 12-06-2019 Anterior lumbar interbody fusion (ALIF) Metallic spinal fusion cage, non-sterile ()[id number] FDA Start: 12-06-2019 Anterior lumbar interbody fusion (ALIF) Bone-screw internal spinal fixation system, non-sterile +[id number] FDA Start: 12-06-2019 Functional Status Date Assessment Result Facility 11-12-2023 Functional Status N/A [facility] 10-07-2023 Functional Status N/A [facility] 07-24-2023 Functional Status N/A [facility] 07-18-2023 Functional Status N/A [facility] 06-24-2023 Functional Status N/A [facility] 06-20-2023 Functional Status N/A [facility] Clinical Notes 04-17-2021 to 05-10-2024 Kennedy Mcnulty MA - 03/08/2024 10:00 AM Bryant Puente MD - 03/01/2024 8:30 AM Alicia Puente MD - 08/04/2023 11:20 AM ESTLaboratoryRadiologyLaboratoryLaboratory Note Date & Type Note Facility 05-10-2024 Evaluation + Plan note Diagnostic Tests PendingT3 Free 05/10/24 Future Scheduled TestsLab Miscellaneous-LC 07/24/23 [facility] 03-08-2024 History of Present illness Narrative Images from the original note were not included. 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 Back pain. Radiates in the hips, shooting pains down the legs. Hx of back surgery. No Hx of DM, not taking blood thinners. Comments: Procedure explained to the patient who expressed understanding. documented in this encounter [facility] 03-01-2024 History of Present illness Narrative Subjective Patient ID: Jessica Griffiths is a 38 y.o. female who presents for Thyroid Nodule (Follow up ultrasound) Thyroid US shows no thyroid nodules, and the thyroid overall is smaller than it had been Family History Problem Relation Name Age of Onset Breast cancer Maternal Grandmother Gerri Cancer Maternal Grandmother Gerri Colon cancer Maternal Grandfather Yoav Cancer Maternal Grandfather Yoav Migraines Paternal Grandmother Deanna Depression Other Active Ambulatory Problems Diagnosis Date Noted Mass of thyroid region 07/04/2023 Hyperthyroidism (CMS/HCC) 07/04/2023 Chronic pharyngitis 07/04/2023 Diplopia 12/01/2018 Occipital neuralgia 07/30/2018 Migraine (CMS/HCC) 2017 Tingling of right upper extremity 12/01/2018 Weakness of right arm 10/08/2023 Cervical radiculopathy 04/14/2019 Degenerative disc disease, cervical 07/16/2018 Neck pain 07/30/2018 Migraine without aura and without status migrainosus, not intractable (CMS/HCC) 04/26/2021 Tension type headache 04/26/2021 Lumbar radiculopathy Other chronic pain Lumbago with sciatica, right side Paresthesias Myalgia 10/21/2023 Weakness 10/21/2023 Lumbosacral radiculopathy 10/21/2023 Lumbar back pain 10/21/2023 Resolved Ambulatory Problems Diagnosis Date Noted No Resolved Ambulatory Problems Past Medical History: Diagnosis Date Dizziness 04/2023 Endometriosis Facial numbness Fatigue 04/2023 H/O breast augmentation 2006 Hormone disorder IBS (irritable bowel syndrome) Lumbar herniated disc Menopause ovarian failure 2021 Urinary tract infection Past Surgical History: Procedure Laterality Date ADENOIDECTOMY BREAST SURGERY 2006 Breast augmentation BREAST SURGERY 2016 Breast implant replacement COSMETIC SURGERY FNA W IMAGING GUIDANCE 07/14/2023 thyroid FNA HYSTERECTOMY 2018 [facility], BSO LUMBAR FUSION 12/06/2019 L5-S1 anterior lumbar interbody fusion MICRODISCECTOMY LUMBAR 10/2017 Micro discectomy L5-S1 PELVIC LAPAROSCOPY 2014 Laparoscopic SAMAN removal of endometriosis - Dr. Rosales TONSILLECTOMY Allergies Allergen Reactions Latex Rash Latex gloves. Wound Dressing Adhesive Rash Rash from bandaids and tape. Current Outpatient Medications on File Prior to Visit Medication Sig Dispense Refill baclofen (Lioresal) 10 MG tablet TAKE 1/2 TO 1 (ONE-HALF TO ONE) TABLET BY MOUTH TWICE DAILY NEEDED FOR MUSCLE SPASM 60 tablet 2 erenumab (Aimovig) 140 MG/ML injection INJECT 1 SYRINGE SUBCUTANEOUSLY ONCE EVERY MONTH 1.12 mL 5 estradiol (Estrace) 2 MG tablet Take 1 tablet (2 mg) by mouth in the morning. 30 tablet 11 gabapentin (Neurontin) 600 MG tablet Take 1 tablet by mouth Daily methIMAzole (Tapazole) 10 MG tablet Take 10 mg by mouth Nurtec 75 MG tablet dispersible Take 1 tablet by mouth Daily as needed (Migraine) Max 2 days a week OXcarbazepine (Trileptal) 300 MG tablet TAKE 1/2 (ONE-HALF) TABLET BY MOUTH IN THE MORNING AND 1 TO 2 TABLETS AT BEDTIME oxybutynin XL (Ditropan-XL) 5 MG 24 hr tablet Take 5 mg by mouth in the morning. tiZANidine (Zanaflex) 4 MG tablet TAKE 1/2 TO 1 (ONE-HALF TO ONE) TABLET BY MOUTH ONCE DAILY AT BEDTIME 30 tablet 2 traMADol (Ultram) 50 MG tablet TAKE 1 TABLET BY MOUTH THREE TIMES DAILY NEEDED. MUST LAST 30 DAYS. [DISCONTINUED] lamoTRIgine (LaMICtal) 25 MG tablet Take by mouth (As directed) [DISCONTINUED] pantoprazole (ProtoNix) 40 MG packet Delayed release. Take 1 tablet by mouth once daily 30 minutes before breakfast. [DISCONTINUED] predniSONE (Deltasone) 20 MG tablet Take 20 mg by mouth in the morning. X 14 days. [DISCONTINUED] pregabalin (Lyrica) 150 MG capsule Take 1 capsule by mouth in the morning and 1 capsule before bedtime. Due 02/03/2021. [DISCONTINUED] rizatriptan (Maxalt) 10 MG tablet Take 1 tablet by mouth 1 (one) time if needed (Onset of migraine) And may repeat with 1 po after 2 hours prn, max 2 per day, 2 days per wk [DISCONTINUED] valACYclovir (Valtrex) 1 g tablet Take 1,000 mg by mouth in the morning and 1,000 mg before bedtime. No current facility-administered medications on file prior to visit. Objective Last Recorded Vitals Vitals: 03/01/24 0830 BP: 100/69 ENT Physical Exam Constitutional Appearance: patient appears well-developed, well-nourished and well-groomed, Communication/Voice: communication appropriate for developmental age; vocal quality normal; Assessment/Plan Diagnoses and all orders for this visit: Mass of thyroid region Pt's thyroid mass has resolved and her thyroid is decreased in size c/w management of her thyroiditis. No need for further routine US documented in this encounter [facility] 10-21-2023 Evaluation + Plan note Diagnostic Tests PendingT3 Free 10/21/23 Future Scheduled TestsLab Miscellaneous-LC 07/24/23 [facility] 10-07-2023 Hospital Discharge instructions Patient Education [...] Treatment for this condition includes: Antibiotic medicine. Jclx-wrl-ckkmeae medicines to treat discomfort. Drinking enough water [...] Follow these instructions at home: Medicines Take tcjv-ars-gckgwxf and prescription medicines only as told by [...] provider. Document Revised: 01/19/2021 Document Reviewed: 01/19/2021 [employer] Patient Education 2022 [employer]. Follow Up Care 10/07/2023 07:28:28 With:JUAN LUIS REES, SAMIR [place] Address: When: only if needed [facility] 08-04-2023 History of Present illness Narrative Subjective [...] W IMAGING GUIDANCE 07/14/2023 thyroid FNA HYSTERECTOMY [facility], BSO-2018 OTHER SURGICAL HISTORY Breast implant replacement [...] per Dr Jonas documented in this encounter [facility] 07-24-2023 Evaluation + Plan note Future Scheduled TestsLab Miscellaneous-LC 07/24/23Echo Transthoracic Complete 07/24/23 [facility] [place] 07-24-2023 Evaluation + Plan note Future Scheduled TestsLab Miscellaneous-LC 07/24/23 [facility] 07-18-2023 Evaluation + Plan note Diagnostic Tests PendingT3 Reverse, Serum 07/18/23Thyroid Perox.tpo Ab 07/18/23TgAb+Thyroglobulin,NIGEL or KELVIN 07/18/23 [facility] 07-18-2023 Hospital Discharge instructions Patient Education [...] surgery. Follow these instructions at home: Take yhbt-oqj-dphuaen and prescription medicines only as told by [...] condition. Where to find more information [employer] of [employer] and [employer]estive and Kidney Diseases: [...] provider. Document Revised: 08/02/2022 Document Reviewed: 08/02/2022 [employer] Patient Education 2022 [employer]. Follow Up Care 07/18/2023 07:34:13 With:Nancy BARRIENTOS MD, FAM Address: When: only if needed [facility] 06-21-2023 Evaluation + Plan note Diagnostic Tests PendingT3 Free 06/21/23 Future Scheduled TestsCBC w/ Auto Diff 06/20/23Comprehensive Metabolic Panel 06/20/23Free T4 06/20/23 [facility] 06-20-2023 Hospital Discharge instructions Patient Education [...] few weeks. Home care treatment may include: Vcfq-uls-xsnujlk pain relievers. A warm, moist cloth placed over the ear. Severe cases may require a procedure to insert tubes in the ears (tympanostomy tubes) to drain the fluid. Follow these instructions at home: Take qdun-tkv-nqxxyve and prescription medicines only as told by [...] provider. Document Revised: 10/04/2021 Document Reviewed: 10/04/2021 [employer] Patient Education 2022 [employer] 06/20/2023 19:03:16 Thyroid Nodule Thyroid Nodule [...] carcinoma. ?Hyperparathyroidism. Certain thyroid diseases, such as Aploinar's thyroiditis. Lack of iodine in your diet. [...] in your thyroid nodule or nodules. Take kihb-rqb-phgmtol and prescription medicines only as told by [...] provider. Document Revised: 04/22/2022 Document Reviewed: 04/22/2022 [employer] Patient Education 2022 [employer]. Follow Up Care 06/20/2023 07:23:01 With:Nancy BARRIENTOS MD, FAM Address: [address] [place] [address]- When: Unknown [facility] 06-20-2023 Evaluation + Plan note Future Scheduled TestsT4 Total 06/20/23CBC w/ Auto Diff 06/20/23Comprehensive Metabolic Panel 06/20/23T3 Free 06/20/23T3 Uptake 06/20/23Thyroid Stimulating Hormone 06/20/23Free T4 06/20/23 [facility] 10-01-2022 Note CONSULTATION CONSULTATION [...] our patients to inform us about any ztrw-qde-jjejvhe medications or herbal remedies/nutritional supplements/alternative remedies. 2. [...] options with their primary care provider. [facility] 06-11-2022 Note CONSULTATION CONSULTATION DATE: 06/11/2022 [...] and concurs. CC: Nancy Barrientos M.D. [facility] 03-05-2022 Note PAIN MANAGEMENT CONS ULTATION [...] along this region. CC: Dr. Barrientos [facility] 12-28-2021 Evaluation note Encounter Date Diagnosis [...] follow her up on an as-needed basis [employer] [facility] 06-13-2022 Evaluation + Plan note Diagnostic Tests Pending * Insulin Level Total 12/03/21 * T3 Free 12/03/21 * FSH Level 12/03/21 Future Scheduled Tests Laboratory* COVID-19 ([facility]) 07/13/21 [facility]05-19-2022 NoteCONSULTATION CONSULTATION DATE: 11/08/2021 This is [...] does plan on seeing Dr. Damon in [place] for. Activities that aggravate her neck are [...] [facility] Signed and Approved by: ISAURA EKLLY . 11/12/2021 15:05:00[facility]01-21-2022 Evaluation + Plan note Future Scheduled Tests Laboratory* COVID-19 ([facility]) 07/13/21 [facility]10-26-2021 Evaluation note* Encounter Date Diagnosis Assessment Notes Treatment Notes Treatment Clinical Notes Mar, Spondylolisthesis at L5-S1 level (ICD-10 - M43.17) I answered a number of questions for the patient. I think a transforaminal injection may be beneficial. I also believe that she could potentially benefit from a dorsal column stimulator. She is seeing a another neurologist at [facility] and I am interested in [...] region with neurogenic claudication (ICD-10 - M48.062) [employer] Other evaluation + Plan note Future Appointments Appointment Date:06/27/2023 07:30:00 AM Scheduled Provider: Location:.[facility] Appointment Type:US Thyroid/Neck/Chest (FT) Appointment Date:06/27/2023 08:00:00 AM Scheduled Provider: Location:.[facility]IO Appointment Type:CV EKG (FT) Appointment Date:07/29/2023 12:40:00 PM Scheduled Provider:Nancy BARRIENTOS MD Location:[facility] Appointment Type: Open Future Scheduled Tests Laboratory* UA With Cult Reflex 06/24/23 * CBC w/ Auto Diff 06/20/23 * Comprehensive Metabolic Panel 06/20/23 * Lipid Panel 06/24/23 * Free T4 06/20/23 Radiology* US Thyroid 06/27/23 [facility] [place] Evaluation + Plan note Future Appointments Appointment Date:07/29/2023 12:40:00 PM Scheduled Provider:Nancy BARRIENTOS MD Location:[facility] Appointment Type: Open Future Scheduled Tests Laboratory* UA With Cult Reflex 06/24/23 * CBC w/ Auto Diff 06/20/23 * Comprehensive Metabolic Panel 06/20/23 * Lipid Panel 06/24/23 * Free T4 06/20/23 Radiology* US FNA w/ Guidance, first lesion 06/27/23 * NM Thyroid Imaging w/ Uptk Multiple [facility]27/23 [facility] Future Appointments Appointment Date:09/11/2023 08:00:00 AM Scheduled Provider: Location:.[facility]ARD[facility] Appointment Type:CV Echo () Diagnostic Tests Pending * T3 Free 09/10/23 * Thyrotropin Receptor Antibody, Serum 09/10/23 Future Scheduled Tests Laboratory* Lab Miscellaneous-LC 07/24/23 Radiology* Echo Transthoracic Complete 09/11/23 [facility] note[facility] InformationN[employer] Other evaluation noteNo assessment information available [facility] Work Phone: Evaluation note* Diagnosis Mass of thyroid region- Primary Hyperthyroidism (CMS/HCC) Thyrotoxicosis without mention of goiter or other cause, without mention of thyrotoxic crisis or storm [facility] Diagnosis Cervical radiculopathy- Primary Brachial neuritis or radiculitis nos Lumbosacral radiculopathy Thoracic or lumbosacral neuritis or radiculitis, unspecified Paresthesias Disturbance of skin sensation Migraine without aura and without status migrainosus, not intractable (CMS/HCC) Myalgia Unspecified myalgia and myositis [facility]* Diagnosis Menopausal symptoms Symptomatic menopausal or female climacteric states [facility] Diagnosis Lumbosacral radiculopathy- Primary Thoracic or lumbosacral neuritis or radiculitis, unspecified Low back pain at multiple sites Paresthesia Disturbance of skin sensation Sacral radiculopathy [facility]* Diagnosis Mass of thyroid region- Primary documented in this encounter [facility] general [...] [facility] Hospitalization History see surgical hx Educreations Other Hospital course Narrative No data available for this section [facility] No data available for this section [facility] No data available for this section [facility] Summary Purpose Family History Relationship Condition Age at Onset Recorded Date/T rody Not Specified Healthy female adult Unknown father Osteoarthritis Unknown Degeneration of intervertebral disc Unkno wn Advance Directives Documents on File Type Date Recorded 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 * Chest Pain: Musculoskeletal (Danish) documented in this encounter Assessments Diagnosis Chest wall pain Painful respiration Reason for Referral Reason Evaluate and Treat C onsider for Dorsal Column Stimulator Diagnosis 1 Spondylolisthesis at L5-S1 level (M43.17) Referral Organization [facility] urosurgery Referring Provider First Name Ric Referring Provider Last Name Alejandrina Referring Provider Specialty Neurologica l Surgery Referred Organization Unknown Facility Referred Provider Mansoor Summers Referred Provider Specialty Pain Medicin e Referral Priority Routine Additional Source Comments INFORMATION SOURCE (unrecogn ized section and content) DATE CREATED AUTHOR 01/14/2020 [facility] DATE CREATED AUTHOR AUTHOR'S ORGANIZ ATION 06/01/2020 [facility] DATE CREATED AUTHOR AUTHOR'S ORGANIZ ATION [facility]/06/2022 [facility] DATE CREATED AUTHOR AUTHOR'S ORGANIZ ATION 08/01/2023 [facility] DATE CREATED AUTHOR AUTHOR'S ORGANIZ ATION 04/07/2024 [facility] DATE CREATED AUTHOR AUTHOR'S ORGANIZ ATION 04/08/2024 [facility] EPIC DATE CREATED AUTHOR AUTHOR'S ORGANIZ ATION 05/12/2024 [facility] DATE CREATED AUTHOR AUTHOR'S ORGANIZ ATION 05/17/2024 [facility] Reason for Visit (unrecogniz ed section and content) Reason Comments Chest Pain intermittent chest p ain under left breast started last night, few episodes today, lasting approx 30 seconds, reports feeling more tired today Reason Comments Thyroid Nodule Follow up biopsy 06/24 08/16 Reason Comments Migraine Cervical Radiculopathy Reason Comments Med Refill Reason Comments Thyroid Nodule Follow up ultrasound Care Team (unrecognized sect ion and content) Team Status: Active Member Role Status Dates Ruben Barrientos MD Primary Care Provider Active Team Status: Inactive Member Role Status Dates Ruben Barrientos MD Primary Care Provider Active Start: July 14, 2023 End: July 14, 2023 Marta Puente Jr, MD Attending Provider Active Start: July 14, 2023 End: July 14, 2023 [employer]der [employer] Relationship Specialty Start Date End Date Nancy Barrientos MD [address] [place] [address] [place] [phone] PCP - General 05/07/23 [employer]der Gun Relationship Specialty Start Date End Date Nancy Barrientos MD [address] [phone] PCP - General 05/07/23 [employer]der Gun Relationship Specialty Start Date End Date Nancy Barrientos MD [address] [place] [id number] PCP - General 05/07/23 Welder 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 Relationship Specialty Start Date End Date Nancy Barrientos MD [address] [place] [id number] [facility] - General 05/07/23 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 Relationship Specialty Start Date End Date Nancy Barrientos MD [address] [place] [phone] [facility] - General 05/07/23 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 [facility] [employer] [facility]. provides no warranty or guarantee of the accuracy or completeness of information in this document.
== END 2024-07-07 08:08 | disposition home or self-care (01) ==
LOC: PM 08:09
PROVIDERS: Visit Provider Nurse Practitioner
DX: M47.812 Spondylosis without myelopathy or radiculopathy, cervical region (principal); M62.838 Other muscle spasm; M96.1 Postlaminectomy syndrome, not elsewhere classified; Z79.891 Long term (current) use of opiate analgesic
CPT/HCPCS: G0463

== ENCOUNTER 2024-08-02 09:00 | Day surgery (SDC) | payer MEDICAID, SELFPAY ==
--- OUTSIDE RECORDS SUMMARY | 2024-08-02 09:05 | XMS_ITS | CCD ---
Author Organization [facility] Care Team Providers Care Pilates Coordinator Name Role Phone UNKNOWN, PROVIDER Admitting Unavailable UNKNOWN, PROVIDER Attending Unavailable UNKNOWN, PHYSICIAN Referring Unavailable UNKNOWN, PHYSICIAN Primary Care Unavailable Nancy Mcknight Primary Care Provider KATHY GHOSH Attending Unavailable NANCY MCKNIGHT Primary Care Unavailable Nancy MCKNIGHT Primary Care Physician [phone] Ric Tinoco Unavailable JOSEFA ., DR HERB [...] KELLY ., ISAURA Consulting Unavailable MD Ruben Mcknight Primary Care Provider [phone] MD Marta Puente Jr Attending Provider Kathy Lincolns Jr Marta H Attending Unavailable Timmis Jr, Marta H Admitting Unavailable Ruben Mcknight Primary Care Unavailable Nancy Mcknight MD Primary Care Provider [phone] Nancy MCKNIGHT Primary Care Physician Airam REES, Suzie Greer Attending Unavailable TIMMIS, MARTA H Attending Unavailable GUDIMELLA, PAUL Referring Unavailable KRAIG GOODMAN Attending Unavailable APPLEMIS, MARTA H Attending Unavailable NANCY MCKNIGHT Referring Unavailable PETRA CALLE Attending Unavailable TIMMIS, MARTA H Attending Unavailable EDWIN ARAMBULA Attending Unavailable EBER POTTS Referring Unavailable PETRA CALLE Attending Unavailable Gudimella, Paul Attending Unavailable Gudimella, Paul Attending Unavailable Gudimella, Paul Attending Unavailable Nancy MCKNIGHT Attending Unavailable Nancy MCKNIGHT Attending Unavailable Nancy MCKNIGHT Attending Unavailable SUMI, AHMAD F Attending Unavailable SUMI, AHMAD F Admitting Unavailable Filiberto Crmaer Admitting Unavailable Filiberto Cramer Attending Unavailable Gudimella, [...] Attending Unavailable Paul Bass Attending Unavailable SUHAS MCGHEE Attending Unavailable SUHAS MCGHEE Admitting Unavailable Allergies Allergy Classification Reported Allergen(s) Allergy Type Date of Onset Reaction(s) Facility (1 source) Adhesive agent; Translations: [Unknown] Propensity to adverse reactions (disorder) 9 [facility] Repository (19 sources) Adhesive Tape; Translations: [Tape] Drug allergy Eruption of skin (disorder) [facility] (20 sources) Latex; Translations: [Latex] Drug allergy 5 Rash [employer] Other (3 sources) adhesive bandages Propensity to adverse reactions rash [facility] Other (1 source) Adhesive agent Drug allergy (disorder) 6 [facility] Repository (1 source) Adhesive agent Drug allergy (disorder) 2 [facility] Repository (1 source) Adhesive Tape Drug allergy (disorder) 0 [facility] Repository (12 sources) Wound Dressing Adhesive Drug Allergy 5 [...] (20 sources) gamma-Aminobutyr ic Acid-ergic Agonist Start: 07-13-2024 take 1 tablet by mouth twice daily at bedtime baclofen (Lioresal) 10 MG tablet Indications: Neck pain TAKE 1 TABLET BY MOUTH TWICE DAILY (IN THE MORNING AND BEFORE BEDTIME) 60 tablet 07/13/2024 Active Start: 02-02-2024 End: 05-02-2024 take 0.5-1 tablets [...] course, # 28 cap(s), Refills(s) 0, Pharmacy: [facility], 168, cm, 07/11/20 8:27:00 [...] Daily, # 90 tab(s), Refills(s) 1, Pharmacy: [facility], 168, cm, 07/11/20 8:27:00 [...] mg oral tablet (20 sources) Estrogen Start: 06-21-2024 End: 06-21-2025 take 1 tablet by mouth once daily estradiol (Estrace) 2 MG tablet Indications: Menopausal symptoms Take 1 tablet (2 mg) by mouth Daily 30 tablet 06/21/2024 06/21/2025 Active Start: 05-07-2023 End: 05-06-2024 take 1 tablet by mouth in the morning estradiol (Estrace) 2 MG tablet Indications: Menopausal symptoms Take 1 tablet (2 mg) by mouth in the morning. 30 tablet 11 05/07/2023 05/06/2024 Active Start: 06-19-2018 take 1 tablet by jaden th once daily Estrace 1 mg Tab 1 mg = 1 tab(s), Oral, Daily Start Date: 06/19/18 Status: Ordered fluticasone propionate 0.05 mg/actuat metered dose nasal spray (3 sources) Corticosteroid Start: 06-20-2023 End: 06-27-2023 take 2 spray(s) nasal route once daily Flonase 0.05 mg/inh [place] 2 spray(s), Nasal, Daily for 7 day(s), 16 gm, Refill(s) 0, each nostril, [facility], 168, cm, 06/20/23 18:45:00 EST, [...] BID, # 180 tab(s), Refills(s) 1, Pharmacy: [facility], 168, cm, 07/11/20 8:27:00 EST, Height/Length Dosing, 64.1, kg, 07/11/20 8:27:00 EST, Weight Dosing Start Date: 08/22/20 Status: Ordered loratadine 10 mg oral tablet (3 sources) Start: 02-23-2020 take 1 tablet by mouth once daily loratadine 10 mg Tab 10 mg = 1 tab(s), Oral, Daily, # 90 tab(s), Refills(s) 1, Pharmacy: [facility], 168, cm, 02/23/20 10:40:00 EDT, Height/Length Dosing, 65, kg, 02/23/20 10:40:00 EDT, Weight Dosing Start Date: 02/23/20 Status: Ordered Start: 11-30-2019 take 1 capsule by mo uth once daily loratadine (CLARITIN) 10 MG capsule Take 10 mg by mouth daily 0 11/30/2019 Active methIMAzole 10 mg oral tablet (11 sources) Thyroid Hormone Synthesis Inhibitor Start: 08-01-2023 [...] Nausea/Vomiting, # 10 tab(s), Refills(s) 0, Pharmacy: [facility], 168, cm, 07/10/20 13:24:00 EST, Height/Length Dosing, 62.1, kg, 07/10/20 13:24:00 EST, Weight Dosing Start Date: 07/10/20 Status: Ordered OXcarbazepine 300 mg oral tablet (20 sources) Anti-epileptic Agent Start: 07-05-2024 take 0.5 tablet by mouth in the morning, then take 1-2 tablets by mouth at bedtime OXcarbazepine (Trileptal) 300 MG tablet Indications: Paresthesias TAKE 1/2 (ONE-HALF) TABLET BY MOUTH IN THE MORNING AND 1 TO 2 TABLETS AT BEDTIME 75 tablet 07/05/2024 Active Start: 05-17-2024 take 0.5 tablet by m outh in [...] symptoms, # 30 tab(s), Refills(s) 0, Pharmacy: [facility], 168, cm, 10/07/23 10:32:00 EDT, Height/Length Dosing, 61, kg, 10/07/23 10:32:00 EDT, Weight Dosing Start Date: 10/07/23 Status: Ordered Start: 05-26-2020 take 1 tablet by jaden th twice daily as needed oxybutynin 5 mg Tab 5 mg = 1 tab(s), Oral, BID, PRN for urinary discomfort, # 60 tab(s), Refills(s) 2, Pharmacy: [facility], 168, cm, 05/26/20 16:32:00 EST, Height/Length Dosing, 64, kg, 05/26/20 16:32:00 EST, Weight Dosing Start Date: 05/26/20 Status: Ordered take 1 tablet by jaden th every twenty-four hours in the morning oxybutynin XL (Ditropan-XL) 5 MG 24 hr tablet Take 5 mg by mouth in the morning. Active take 1 tablet by once daily [...] breakfast, # 30 tab(s), Refills(s) 5, Pharmacy: [facility], 168, cm, 07/11/20 8:27:00 EST, [...] Once, # 1 tab(s), Refills(s) 0, Pharmacy: [facility], 168, cm, 07/24/23 13:48:00 EST, Height/Length Dosing, 61, kg, 07/24/23 13:48:00 EST, Weight Dosing Start Date: 07/24/23 Status: Ordered Protonix 40 mg Tab-EC (3 sources) Start: 02-06-2021 take 1 tablet by mouth once daily 30 minutes before breakfast Protonix 40 mg Tab-EC 40 mg = 1 tab(s), Oral, Daily, Take 30 minutes before breakfast, # 30 tab(s), Refills(s) 5, Pharmacy: [facility], 168, cm, 07/11/20 8:27:00 EST, Height/Length Dosing, 64.1, kg, 07/11/20 8:27:00 EST, Weight Dosing Start Date: 02/06/21 Status: Ordered rimegepant 75 mg disintegrating oral tablet (18 sources) Start: 04-06-2024 End: 04-06-2024 take 1 [...] (20 sources) Central alpha-2 Adrenergic Agonist Start: 06-14-2024 take 1 tablet by mouth at bedtime tiZANidine (Zanaflex) 4 MG tablet Indications: Neck pain Take 1 tablet (4 mg) by mouth at bedtime 30 tablet 2 06/14/2024 Active Start: 03-02-2024 take 1 tablet by jaden th at bedtime tiZANidine (Zanaflex) 4 MG tablet Indications: Neck pain Take 1 tablet (4 mg) by mouth at bedtime 30 tablet 2 03/02/2024 Active Start: 11-18-2023 take 1 tablet by jaden once daily at bedtime tiZANidine (Zanaflex) 4 MG tablet Indications: Neck pain TAKE 1/2 TO 1 (ONE-HALF TO ONE) TABLET BY MOUTH ONCE DAILY AT BEDTIME 30 tablet 2 11/18/2023 Active Start: 03-24-2023 take 1 tablet by jaden once daily at bedtime tiZANidine (Zanaflex) 4 MG tablet TAKE 1/2 TO 1 (ONE-HALF TO ONE) TABLET BY MOUTH ONCE DAILY AT BEDTIME 0 03/24/2023 Active Start: 10-18-2021 take 0.5-1 tablets b y mouth once daily at bedtime Zanaflex 4 mg oral capsule See Instructions, take /2 - 1 tab po qhs, Refills(s) 0 [...] 2017 7:12am valACYclovir 1000 mg oral tablet (12 sources) Herpesvirus Nucleoside Analog DNA Polymerase Inhibitor, [...] BID, # 60 tab(s), Refills(s) 2, Pharmacy: [facility], 168, cm, 11/08/21 9:50:00 EDT, Height/Length Dosing, 65.4, kg, 11/08/21 9:50:00 EDT, Weight Dosing Start Date: 01/18/22 Status: Ordered Start: 11-23-2020 take 1 tablet by jaden th twice daily valacyclovir 1 g Tab 1 gram = 1 tab(s), Oral, BID, # 60 tab(s), Refills(s) 2, Pharmacy: [facility], 168, cm, 07/11/20 8:27:00 EST, Height/Length Dosing, 64.1, kg, 07/11/20 8:27:00 EST, Weight Dosing Start Date: 11/23/20 Status: Ordered Start: 11-23-2020 take 1 tablet by jaden th twice daily valacyclovir 1 g Tab 1 gram = 1 tab(s), Oral, BID, # 60 tab(s), Refills(s) 2, Pharmacy: [facility], 168, cm, 07/11/20 8:27:00 EST, Height/Length Dosing, 64.1, kg, 07/11/20 8:27:00 EST, Weight Dosing Start Date: 11/23/20 Status: Ordered Completed/Discontinued Medications Medication Drug Class(es) Dates Sig (Normalized) Sig (Original) acetaminophen 325 mg / HYDROcodone bitartrate 5 mg oral tablet (2 sources) Opioid Agonist Start: 09-12-2017 End: 11-30-2019 take 1 tablet by mouth every four to six hours Hydrocodone-Acetami nophen ([place]) 5-325 mg tablet Discontinued 1 TAB PO EVERY 4-6 HOURS 30 September 12, 2017 November 30, 2019 9:37am Start: 09-04-2017 End: 09-12-2017 take 1 tablet by mouth once daily at bedtime Hydrocodone-Acetaminophen ([place]) 5-325 mg Tablet Discontinued 1 TAB PO [...] painful 07-18-2023 Episodic Other nervous system disorders (12 sources) Chronic pain; Translations: [Other chronic pain] [...] taste 03-31-2020 Episodic Other nervous system disorders (12 sources) Paresthesia; Translations: [Paresthesia of skin] 04-06-2024 [...] Onset: 4 Chronic Other upper respiratory disease (12 sources) Chronic pharyngitis; Translations: [Chronic pharyngitis] Onset: [...] Documented Date Episodic/Chronic Blindness and vision defects (9 sources) Diplopia; Translations: [Diplopia] Onset: 12-01-2018 10-08-2023 Episodic Malaise and fatigue (9 sources) Asthenia; Translations: [Weakness] Onset: 10-21-2023 10-21-2023 Episodic Other acquired deformities (2 sources) Spondylolisthesis, lumbosacral region; Translations: [Spondylolisthesis at L5-S1 level M43.17] Onset: 04-17-2021 Resolved: 12-28-2021 Episodic Other connective tissue disease (11 sources) Muscle pain; Translations: [Myalgia, unspecified site] Onset: 10-21-2023 04-06-2024 Episodic Other connective tissue disease (9 sources) Other symptoms and signs involving the musculoskeletal system; Translations: [Other musculoskeletal symptoms referable to limbs] Onset: 10-08-2023 10-08-2023 Episodic Other nervous system disorders (9 sources) Paresthesia of right upper limb; Translations: [Paresthesia of skin] Onset: 12-01-2018 10-08-2023 Episodic Other skin disorders (16 sources) Mass of neck; Translations: [Localized swelling, [...] [Mass/Vol] 2.3 pg/mL Invalid Interpretation Code 2.0-4.4 [facility] Comment on above: Result Comment: Perf ormed at: [facility] [address] [id number] PhD Mahnaz Conklin Performed By: #### 2 [id number] #### [facility] [address] [place] [address] CHEMISTRYOrdered By: SYSTEM SYSTEM on 05-10-2024 Free T4 [Mass/Vol] 0.72 ng/dL Normal 0.58 - 1.64 ng/dL Remisol Chem TSH Qn 2.58 m[IU]/L Normal 0.34 - 5.60 mcIU/mL Remisol Chem Free T4on 05-10-2024 Free T4 [Mass/Vol] 0.72 ng/dL Normal 0.58-1.64 [facility] Comment on above: Performed By: #### 2 [id number] #### [facility] [address] [place] [address] TSHon 05-10-2024 TSH Qn 2.58 m[IU]/L Normal 0.34-5.60 [facility] Comment on above: Performed By: #### 2 [id number] #### [facility] [address] [id number] EMG 2 Extremitieson 03-08-20 EMG/ NCS BLE Mild right S1/S2 radiculopathy versus tibial motor neuropathy that is less likely [facility] NVC 9-10 Nerveson 03-08-2024 EMG/ NCS BLE Mild right S1/S2 radiculopathy versus tibial motor neuropathy that is less likely [facility] US Thyroidon 01-16-2024 US Thyroid Exam Date/Time: [...] DO Transcribed by: YAMINI Technologist: KELSI Merrill [facility] Consenton 11-12-2023 Consent [id number]#1.00TIFF [facility] Consent [id number]#1.00TIFF [facility] Family Medicine Office/Clini c Noteon 11-12-2023 Family [...] with voice recognition artificial intelligence software, specifically McPhy, Impulcity and or Innovega. Substitutions may have occurred due to the inherent limitations of voice recognition and artificial intelligence software. Documentation services were performed after patient or guardian consented to allow [employer] to record this visit. DEX medical program specialist Perlita Dominguez and provider reviewed before [...] per year, 06/24/2023 Employment/School Employed, Work/School description: [employer] 02/01/2019 Home/Environment Lives with Children, [...] influenza viru (more content not included)... Normal [facility] Comment on above: Result Comment: Elec tronically Signed By: Paul Bass MD\.br\Date and Time Signed: 11/12/23 14:07 EDT\.br\Electronically Co-Signed By: Tyrone Garcia\.br\Date and Time Co-Signed: 11/12/23 13:40 EDT T3 Freeon 10-22-2023 Free T3 [Mass/Vol] 2.9 pg/mL Invalid Interpretation Code 2.0-4.4 [facility] Comment on above: Result Comment: Perf ormed at: [facility] [id number] PhD Mahnaz Conklin Performed By: #### 2 908027, [id number], [id number] ####[facility] [address] [place] [address] CHEMISTRYOrdered By: SYSTEM SYSTEM on 10-21-2023 Free T4 [Mass/Vol] 0.65 ng/dL Normal 0.58 - 1.64 ng/dL Remisol Chem TSH Qn 4.41 m[IU]/L Normal 0.34 - 5.60 mcIU/mL Remisol Chem Consent for Treatmenton 09-23 Consent for Treatment [id number]#1.00TIFF Normal [facility] Free T4on 10-21-2023 Free T4 [Mass/Vol] 0.65 ng/dL Normal 0.58-1.64 [facility] Comment on above: Performed By: #### 2 740452, [id number], [id number] ####[facility] [address] [place] [address] Physician Orderon 10-21-2023 Physician Order [id number]#1.00TIFF Normal [facility] TSHon 10-21-2023 TSH Qn 4.41 m[IU]/L Normal 0.34-5.60 [facility] Comment on above: Performed By: #### 2 286026, [id number], [id number] ####[facility] [address] [place] [address] Ambulatory Visit Summaryon 0 10-07-2023 Ambulatory Visit Summary JESSICA GRIFFIHTS :1985 Visit Date:10/07/2023 Ambulatory Visit Instructions Your Diagnosis Detrusor instability of bladder Thyroiditis, subacute Your Care Team Attending Physician - Nancy MCKNIGHT MD Primary Care Physician - Nancy MCKNIGHT MD This Is Your Medications List oxybutynin [...] urinary discomfort for bladder symptoms Pickup at [facility] Unchanged baclofen (baclofen 10 mg Tab) See [...] physician if questions or concerns Pharmacy Information [facility]: [address] [phone] Allergies Latex Tape (Rash) Problems Ongoing - [...] have a (more content not included)... Normal [facility] Family Medicine Office/Clini c Noteon 10-07-2023 [...] two weeks, she has not utilized any cvez-ipb-uiyescg or old antibiotics, nor has she utilized [...] week. She is seeing Dr. Mcghee in [place] for her thyroid. She has been trying [...] Urnls Dip Stick Auto w/o Microscopy POC 01462 2. Thyroiditis, subacute (E06.1: Subacute thyroiditis) Continue following with Dr. Mcghee in [place] for management of the methimazole. 3. Lumbar [...] symptoms, # 30 tab(s), Refills(s) 0, Pharmacy: [facility], 168, cm, 10/07/23 10:32:00 EDT, Height/Length Dosing, 61, kg, 10/07/23 10:32:00 EDT, Weight Dosing Portions of this record may have been created with voice recognition artificial intelligence software, specifically McPhy, Impulcity and or Innovega. Substitutions may have occurred due to the inherent limitations of voice recognition and artificial intelligence software. Follow-up With When Contact Information Nancy MCKNIGHT MD [facility] Only if needed Additional Instructions: Patient Education [...] lumba (more content not included)... Normal [facility] Comment on above: Result Comment: Elec [...] this condition includes: ? Antibiotic medicine. ? Bdge-zxc-fksjomb medicines to treat discomfort. ? Drinking enough [...] these instructions at home: Medicines ? Take yipf-jlq-lusykqg and prescription medicines only as told by [...] Document Revie (more content not included)... Normal [facility] T3 Freeon 09-13-2023 Free T3 [Mass/Vol] 1.5 pg/mL Low 2.0-4.4 [facility] Comment on above: Result Comment: Perf ormed at: [facility] [id number] PhD Mahnaz Conklin Performed By: #### 2 437206, [id number], 1159251, 6291518, 3130561 ####[facility] [address] [place] [address] Thyrotropin Receptor Antibod y, Serumon 09-13-2023 TSH receptor Ab Qn (S) <1.10 Invalid Interpretation Code 0.00-1.75 [facility] Comment on above: Result Comment: Perf ormed at: [facility] [id number] MD Enrico Dean Performed By: #### 2 069876, [id number], 0550349, 2753057, 2219632 ####[facility] [address] [place] [address] CHEMISTRYOrdered By: SYSTEM SYSTEM on 09-10-2023 Albumin [...] for Treatmenton 08-22 Consent for Treatment [id number]#1.00TIFF Normal [facility] Free T4on 09-10-2023 Free T4 [Mass/Vol] ng/dL Low 0.58-1.64 [facility] Comment on above: Performed By: #### 2 610356, [id number], 6045716, 9782538, 4937719 ####[facility] [address] [place] [address] Hep Func Panelon 09-10-2023 Albumin [Mass/Vol] 4.2 g/dL Normal 3.3-5.0 [facility] Comment on above: Performed By: #### 2 835902, [id number], 8598240, 1050986, 4929414 ####[facility] [address] [place] [address] Albumin/Globulin (S) [Mass conc ratio] 1.4 Normal 1.1-2.2 [facility] Comment on above: Performed By: #### 2 723007, [id number], 1653595, 0881964, 7638985 ####[facility] [address] [place] [address] ALP [Catalytic activity/Vol] 66 Int._Unit/L Normal 21-98 [facility] Comment on above: Performed By: #### 2 000871, [id number], 5081101, 2844634, 7701894 ####[address] [place] [address] ALT No additional P-5'-P [Catalytic activity/Vol] 14 Int._Unit/L Normal 6-46 [facility] Comment on above: Performed By: #### 2 210646, [id number], 1345969, 9038635, 2902990 ####[address] [place] [address] AST [Catalytic activity/Vol] 22 Int._Unit/L Normal 5-43 [facility] Comment on above: Performed By: #### 2 384683, [id number], 0690852, 3358971, 5208629 ####[address] [address] Bilirubin [Mass/Vol] 0.5 mg/dL Normal 0.0-1.1 [facility] Comment on above: Performed By: #### 2 080690, [id number], 4111924, 8310752, 4995367 ####[facility] [address] [place] [address] Bilirubin.direct [Mass/Vol] 0.1 mg/dL Normal 0.0-0.4 [facility] Comment on above: Performed By: #### 2 802004, [id number], 5866386, 3935115, 6846792 ####[facility] [address] [place] [address] Bilirubin.indirect [Mass or moles/Vol] 0.4 mg/dL Normal 0.1-0.9 [facility] Comment on above: Performed By: #### 2 741772, [id number], 0487593, 4212264, 0557593 ####[facility] [address] [place] [address] Globulin (S) [Mass/Vol] 3.0 g/dL Normal 1.4-4.0 [facility] Comment on above: Performed By: #### 2 150623, [id number], 5967447, 1109798, 9123186 ####[facility] [address] [place] [address] Protein [Mass/Vol] 7.2 g/dL Normal 6.0-7.8 [facility] Comment on above: Performed By: #### 2 537686, [id number], 5358535, 3010704, 5459662 ####[facility] [address] [place] [address] Physician Orderon 09-10-2023 Physician Order [id number]#1.00TIFF Normal [facility] TSHon 09-10-2023 TSH Qn 68.80 m[IU]/L High 0.34-5.60 [facility] Comment on above: Performed By: #### 2 572171, [id number], 2570270, 7096804, 8130530 ####[facility] [address] [place] [address] Consultation Noteon 08-12-19 Consultation Note [id number]#1.00TIFF Normal [facility] Insurance Correspondenceon 0 08-05-2023 Insurance Correspondence [id number]#1.00TIFF Normal [facility] Consultation Noteon 08-04-19 Consultation Note [id number]#1.00TIFF Normal [facility] .Thyroglobulin by RIAon 07-24 Thyroglobulin [Mass/Vol] 159 ng/mL High [facility] Comment on above: Result Comment: Conf irmed by dilution. This test was developed and its performance characteristics determined by [facility]. It has not been cleared or approved [...] quantitation limit is 2.0 ng/mL. Performed at: [employer] [address] [place] [id number] MD Yadiel Cornell Performed By: #### 7 [id number], 8113945, 37521057, 2185810, [id number], [id number] ####[facility] [address] [place] [address] T3 Reverseon 08-02-2023 T3.reverse [Mass/Vol] 31.2 ng/dL High 9.2-24.1 [facility] Comment on above: Result Comment: This test was developed and its performance characteristics determined by [facility]. It has not been cleared or approved by the Food and Drug Administration. Performed at: [address] [id number] MD Enrico Dean Performed By: #### 7 [id number], 9315056, 63591274, 1670788, [id number], [id number] ####[facility] [address] [place] [address] TgAb+Thyroglobulinon 024 Thyroglobulin Ab Qn 2.7 International_Unit /mL High 0.0-0.9 [facility] Comment on above: Result Comment: Thyr oglobulin Antibody measured by [employer] Methodology Performed at: [facility] [id number] PhD Mahnaz Conklin Performed By: #### 7 [id number], 5369353, 72833566, 3265747, [id number], [id number] ####[facility] [address] [place] [address] Thyroid Perox.tpo Abon 08-02 TPO Ab Qn [IU]/mL Invalid Interpretation Code 0-34 [facility] Comment on above: Result Comment: Perf ormed at: [facility] [address] [id number] PhD Mahnaz Conklin Performed By: #### 7 [id number], 2468681, 03683644, 4393704, [id number], [id number] ####[facility] [address] [place] [address] Family Medicine Office/Clini c Noteon 07-29-2023 Family [...] and imagi (more content not included)... Normal [facility] Comment on above: Result Comment: Elec tronically Signed By: Paul Bass MD\.br\Date and Time Signed: 07/29/23 18:15 EST\.br\Electronically Co-Signed By: Jaja Alex\.br\Date and Time Co-Signed: 07/24/23 18:17 EST Interdisciplinary Note - Soc ial Workeron 07-28-2023 Interdisciplinary Note - Intake Clinician This SW made a tc to patient [...] needs arise. SW will remain available. Normal [facility] Ambulatory Visit Summaryon 0 07-24-2023 Ambulatory Visit Summary JESSICA GRIFFITHS :1985 Visit Date:07/24/2023 Ambulatory Visit Instructions Your Diagnosis Palpitations Nodule of left lobe of thyroid gland Abnormal thyroid stimulating hormone level Thyroiditis, subacute Heart murmur BMI 21.0-21.9, adult Non-smoker Your Care Team Attending Physician - Paul Bass MD Primary Care Physician - Nancy MCKNIGHT MD This Is Your Medications List propranolol [...] hormone level, Print Label By Order Location, 648309\.br\ Echo Transthoracic Complete, 07/24/23, Routine, Order for future visit, Transport Mode: Ambulatory, Reason: Other (please specify), Reason: murmur, Heart murmur, pp_set_radiology_ subspecialty, [facility]\.br\ Medications\.br\ What How Much When Instructions\.br\ New propranolol (propranolol 10 mg Tab) 1 Tablets By Mouth Once Pickup at [facility]\.br\ Unchanged baclofen (baclofen 10 [...] if questions or concerns \.br\ Pharmacy Information\.br\ [facility]: [address] [phone]\.br\ Allergies\.br\ Latex\.br\ Tape (Rash)\.br\ Problems\.br\ Ongoing - [...] for choosing us for your care.\.br\ \.br\ [facility] Ambulatory Visit Summaryon 0 07-18-2023 Ambulatory Visit Summary JESSICA GRIFFITHS :1985 Visit Date:07/18/2023 Ambulatory Visit Instructions Your Diagnosis Thyroiditis, subacute Nodule of left lobe of thyroid gland Hyperthyroidism Odynophagia Acid reflux Your Care Team Attending Physician - Nancy MCKNIGHT MD Primary Care Physician - Nancy MCKNIGHT MD This Is Your Medications List Contact [...] the Following Appointments Follow Up with Nancy MCKNIGHT MD, FAM When: Only if needed Where: [...] You smoke (more content not included)... Normal [facility] CHEMISTRYOrdered By: SYSTEM SYSTEM on 07-18-2023 Free T4 [Mass/Vol] 2.22 ng/dL High 0.58 - 1.64 ng/dL Remisol Chem TSH Qn 0.01 m[IU]/L Low 0.34 - 5.60 mcIU/mL Remisol Chem Clipboard Summaryon 07-18-19 24 Clipboard Summary {98-hu-a5-2d-15-1c -62-4n-n3-9a-b9-6d -cb-25-c2-ac}XML Normal [facility] Consent for Treatmenton 06-24 Consent for Treatment [id number]#1.00TIFF Normal [facility] Family Medicine Office/Clini c Noteon 07-18-2023 [...] and had a biopsy on Friday at [place], carried out by the radiology department interventional [...] Nonicteric sclera. Oropharynx pink and moist. Adequate tazlina dentition. Anterior neck, there is a fullness [...] the pathology report on her phone from [facility] which indicates benign cellularity although [...] Dysphagia, unspecified) (more content not included)... Normal [facility] Comment on above: Result Comment: Elec tronically Signed By: Nancy MCKNIGHT MD\.tarah\Date and Time Signed: 07/18/23 19:02 EST Free T4on 07-18-2023 Free T4 [Mass/Vol] 2.22 ng/dL High 0.58-1.64 [facility] Comment on above: Performed By: #### 7 [id number], 3297039, 33340951, 0451635, 135783880, 68146185 #### [facility] [address] [place] [address] Patient Educationon 07-18-19 Patient Education Endocrinology Hyperthyroidism [...] Follow these instructions at home: ? Take yhfn-kzy-wzikiyy and prescription medicines only as told by [...] Where to find more information ? National [place] of Diabetes and Digestive and Kidney Diseases: [...] as u (more content not included)... Normal [facility] TSHon 07-18-2023 TSH Qn 0.01 m[IU]/L Low 0.34-5.60 [facility] Comment on above: Performed By: #### 7 [id number], 4626416, 27893044, 8972717, 702564300, 60411582 #### [facility] [address] [place] [address] Mata 07-14-2023 L Specimen: [id number] Received: 07/15/23 Status: DENA Hurtado Num: [id number] Spec Type: Cytology Subm Dr: MARTA PUENTE MD Tissues: A FNA SLIDES NOPATH (LT THYROID NOD) Procedures: Cyto Int and Re, PAPSTN/5 Age/ Patient Sex Location Account Attending Physician Jessica Griffiths 37/F LABELL [id number] MARTA PUENTE MD SPEC NUM: [id number] RECD: 07/15/23 STATUS: DENA HURTADO NUM: [id number] KANCHAN: 07/14/23- SUBM DR: MARTA PUENTE MD ENTERED: 07/15/[address] [facility] DR: Neno Quiroz SPEC TYPE: Cytology DEPT: ROYER ENGEL ENTERED BY: [id number] RECV BY: [id number] ORDERED: Cyto Int and Re, PAPSTN/5 ORDERED: Cyto Int and Re, PAPSTN/5 Pathological Diagnosis Left thyroid mid lobe nodule, FNA cytology: - Adequate but slightly limited for assessment - The [place] system is category 2: Benign - A [...] -- Specimen: [id number] Received: 07/15/23 Status: DENA Bear Num: [id number] Spec Type: Cytology Subm Dr: MARTA PUENTE MD Tissues: A FNA SLIDES NOPATH (LT THYROID NOD) Procedures: Cyto Int and Re, PAPSTN/5 -- Patient: Jessica Griffiths [id number] (Continued) -- Specimen: [id number] Received: 07/15/23 (Continued) Signed (signatu re on file) Alfonso Correa MD 07/16/23 1123 -- Specimen: [id number] Received: 07/15/23 Status: DENA Hurtado Num: [id number] Spec Type: Cytology Subm Dr: MARTA PUENTE MD Tissues: A FNA SLIDES NOPATH (LT THYROID NOD) Procedures: Cyto Int and Re, PAPSTN/5 -- Patient: Jessica Griffiths [id number] (Continued) -- Specimen: [id number] Received: 07/15/23 (Continued) CPT Codes 41184 -- -- Specimen: [id number] Received: 07/15/23-1303 Status: DENA Hurtado Num: [id number] Spec Type: Cytology Subm Dr: MARTA PUENTE MD Tissues: A FNA SLIDES NOPATH (LT THYROID NOD) Procedures: Cyto Int and Re, PAPSTN/5 -- Patient: Jessica Griffiths [id number] (Continued) -- Signed (signatu re on file) Alfonso Correa MD 07/16/23 1123 [facility] Thyroid Imaging w/ Uptk Angelito ortega 07-09-2023 [...] 203.5 Imaging Post Administration (hrs): 24 Normal [facility] CHEMISTRYOrdered By: SYSTEM SYSTEM on 07-08-2023 [...] for Treatmenton 06-23 Consent for Treatment [id number]#1.00TIFF Normal [facility] Lipid Panelon 07-08-2023 Cholesterol [Mass/Vol] 145 mg/dL Normal 120-200 [facility] Comment on above: Performed By: #### 2 700930 ####[facility] [address] [place] [address] Cholesterol in HDL [Mass/Vol] 62 mg/dL Invalid Interpretation Code [facility] Comment on above: Result Comment: '>= 60 LOW RISK' '<= 40 HIGH RISK' Performed By: #### 2 229367 ####[facility] [address] [place] [address] Cholesterol in LDL [Mass/Vol] 76 mg/dL Normal <=129 [facility] Comment on above: Performed By: #### 2 584557 ####[facility] [address] [place] [address] Cholesterol in VLDL [Mass/Vol] 10 mg/dL Normal 7-40 [facility] Comment on above: Performed By: #### 2 415353 ####[facility] [address] [place] [address] Triglyceride [Mass/Vol] 52 mg/dL Normal <=149 [facility] Comment on above: Performed By: #### 2 782396 ####[facility] [address] [place] [address] UA With Cult Reflexon 2023 Bacteria LM Ql (Urine sed) 1+ /HPF Abnormal Trace [facility] Comment on above: Performed By: #### 1 6561020 ####[facility] [address] [place] [address] Bilirubin Ql (U) Negative Normal Negative [facility] Comment on above: Performed By: #### 1 7989612 ####[facility] [address] [place] [address] Clarity (U) CLEAR Normal Clear [facility] Comment on above: Performed By: #### 1 3501707 ####[facility] [address] [place] [address] Color (U) YELLOW Normal Yellow [facility] Comment on above: Performed By: #### 1 7683179 ####[facility] [address] [place] [address] Epithelial cells.squamous LM.HPF (Urine sed) [#/Area] /[HPF] Normal 0-2 [facility] Comment on above: Performed By: #### 1 9476272 ####[facility] [address] [place] [address] Glucose Test strip (U) [Mass/Vol] Negative Normal Negative [facility] Comment on above: Performed By: #### 1 1866652 ####[facility] [address] [place] [address] Hemoglobin Ql (U) Negative Normal Negative [facility] Comment on above: Performed By: #### 1 8675225 ####[address] [address] Ketones (U) [Mass/Vol] TRACE Abnormal Negative [facility] Comment on above: Performed By: #### 1 4023693 ####[address] [address] Pigeon.plasma/Lithi um.RBC (Bld) [Mass ratio] 0-3 Normal 0-3 [facility] Comment on above: Performed By: #### 1 6356011 ####[address] [address] Mucus Ql (Urine sed) 2+ Normal [facility] Comment on above: Performed By: #### 1 1532695 ####[address] [address] Nitrite Ql (U) Negative Normal Negative [facility] Comment on above: Performed By: #### 1 9296676 ####[address] [address] pH (U) 6.5 [pH] Invalid Interpretation Code 5.0-9.0 [facility] Comment on above: Performed By: #### 1 8093335 ####[address] [address] Protein (U) [Mass/Vol] Negative Normal Negative [facility] Comment on above: Performed By: #### 1 3367277 ####[address] [address] Specific gravity (U) [Rel density] 1.015 Invalid Interpretation Code 1.005-1.030 [facility] Comment on above: Performed By: #### 1 5145509 ####[facility] [address] [address] Type of Urine collection method Clean Catch Normal [facility] Comment on above: Performed By: #### 1 7536183 ####[facility] [address] [address] Urobilinogen Qn (U) 0.2 {Dylan'U}/dL Normal 0.0-1.0 [facility] Comment on above: Performed By: #### 1 3307236 ####[facility] [address] [place] [address] WBC Auto Ql (U) Negative Normal Negative [facility] Comment on above: Performed By: #### 1 5421584 ####[address] [address] WBC LM.HPF (Urine sed) [#/Area] 0-5 Normal 0-5 [facility] Comment on above: Performed By: #### 1 6390734 ####[facility] [address] [place], [place] [address] URINALYSISOrdered By: Jennifer morris on 07-08-2023 Bacteria [...] Interpretation Code Negative [facility] UA Auto SS Pigeon.plasma/Lithi um.RBC (Bld) [Mass ratio] 0-3 /HPF Normal [...] AM) Invalid Interpretation Code 1.005 - 1.030 [facility] UA Auto SS UA Spec Desc Clean Catch (07/08/23 7:42 AM) Normal [facility] UA Auto SS Urobilinogen Qn (U) 0.5091278 {Dylan'U}/dL Normal 0.0 - 1.0 EU/dL [facility] UA Auto SS WBC Auto Ql (U) Negative (07/08/23 7:42 AM) Normal Negative [facility] UA Auto SS WBC LM.HPF (Urine sed) [#/Area] 0-5 /HPF Normal 0-5/HPF [facility] [place]A Auto SS Insurance Correspondenceon 0 07-01-2023 Insurance Correspondence [id number]#1.00TIFF [facility] Physician Referralon 024 Physician Referral [id number]#1.00TIFF [facility] Consent for Treatmenton Consent for Treatment [id number]#1.00TIFF [facility] US Thyroidon 06-27-2023 US Thyroid Exam Date/Time: [...] Technologist: FAISAL [facility] Medicine Office/Clini c Noteon 06-24-2023 Family Medicine [...] with voice recognition artificial intelligence software, specifically McPhy, Impulcity and or Innovega. Substitutions may have occurred due to the inherent limitations of voice recognition and artificial intelligence software. Documentation services were performed after patient or guardian consented to allow textPlus to record this visit. D (more content not included)... Normal [facility] Comment on above: Result Comment: Elec tronically Signed By: Paul Bass MD\.br\Date and Time Signed: 06/24/23 18:25 EST\.br\Electronically Co-Signed By: Jaja Alex\Date and Time Co-Signed: 06/24/23 18:04 EST T3 Freeon 06-22-2023 Free T3 [Mass/Vol] 4.2 pg/mL Invalid Interpretation Code 2.0-4.4 [facility] Comment on above: Result Comment: Perf ormed at: [facility] [address] [id number] PhD Mahnaz Conklin Performed By: #### 2 612422, 9190597, 8372302, 72554270 ####[facility] [address] [place] [address] Auto Diffon 06-21-2023 Basophils/100 WBC (Bld) 0.3 % Normal 0.0-2.0 [facility] Comment on above: Order Comment: Order Added by Discern Expert. Performed By: #### 1 7003185, 9516684, 3018028, 3355472, 5210058 #### [facility] [address] [place] [address] Basophils/Leukocytes Auto (Bld) [Pure # fraction] 0.0 E9/L Normal 0.0-0.2 [facility] Comment on above: Order Comment: Order Added by Discern Expert. Performed By: #### 1 2406000, 5932915, 4712326, 4654771, 4577300 #### [facility] [address] [place] [address] Eosinophils/100 WBC (Bld) 0.6 % Normal 0.0-8.0 [facility] Comment on above: Order Comment: Order Added by Discern Expert. Performed By: #### 1 3395216, 9083696, 1255710, 3603647, 1329039 #### [facility] [address] [place] [address] Eosinophils/Leukocyt es Auto (Bld) [Pure # fraction] 0.0 E9/L Normal 0.0-0.5 [facility] Comment on above: Order Comment: Order Added by Discern Expert. Performed By: #### 1 6107611, 0761853, 5227052, 7962006, 0055078 #### [facility] [address] [place] [address] Lymphocytes/100 WBC (Bld) 20.6 % Normal 14.0-50.0 [facility] Comment on above: Order Comment: Order Added by Discern Expert. Performed By: #### 1 6377018, 2196130, 9462757, 9621419, 9303484 #### [facility] [address] [place] [address] Lymphocytes/Leukocyt es Auto (Bld) [Pure # fraction] 1.7 E9/L Normal 1.0-4.0 [facility] Comment on above: Order Comment: Order Added by Discern Expert. Performed By: #### 1 6493359, 4787981, 6394023, 4822133, 3503292 #### [facility] [address] [place] [address] Monocytes/100 WBC (Bld) 6.6 % Normal 4.0-14.0 [facility] Comment on above: Order Comment: Order Added by Discern Expert. Performed By: #### 1 5311625, 6370881, 1226392, 8982627, 0138823 #### [facility] [address] [place] [address] Monocytes/Leukocytes Auto (Bld) [Pure # fraction] 0.5 E9/L Normal 0.2-1.0 [facility] Comment on above: Order Comment: Order Added by Discern Expert. Performed By: #### 1 5776912, 3839561, 0830067, 8488248, 0301123 #### [facility] [address] [place] [address] Neutrophils/100 WBC (Bld) 71.9 % Normal 36.0-75.0 [facility] Comment on above: Order Comment: Order Added by Discern Expert. Performed By: #### 1 1865547, 1031412, 6417330, 1393808, 4270766 #### [facility] [address] [place] [address] Neutrophils/Leukocyt es Auto (Bld) [Pure # fraction] 5.8 E9/L Normal 2.0-7.5 [facility] Comment on above: Order Comment: Order Added by Discern Expert. Performed By: #### 1 9339630, 3381909, 0434397, 3895676, 5334906 #### [facility] [address] [place] [address] CBC w/ Auto Diffon Erythrocyte distribution width (RBC) [Ratio] 12.6 % Normal 10.9-14.2 [facility] Comment on above: Performed By: #### 1 1564827, 0587664, 9455171, 3151741, 0802013 #### [facility] [address] [place] [address] Hematocrit (Bld) [Volume fraction] 37.8 % Normal 34.0-46.0 [facility] Comment on above: Performed By: #### 1 6662950, 0092066, 5725803, 2043083, 0863761 #### [facility] [address] [place] [address] Hemoglobin (Bld) [Mass/Vol] 12.7 g/dL Normal 12.0-16.0 [facility] Comment on above: Performed By: #### 1 7396415, 2472926, 4211679, 8978423, 7170855 #### [facility] [address] [place] [address] MCH (RBC) [Entitic mass] 32.2 pg Normal 27.0-34.0 [facility] Comment on above: Performed By: #### 1 3770439, 6467712, 2411633, 8162437, 6955158 #### [facility] [address] [place] [address] MCHC (RBC) [Mass/Vol] 33.8 g/dL Normal 31.4-36.0 [facility] Comment on above: Performed By: #### 1 9405565, 0896045, 9554481, 4919295, 0558179 #### [facility] [address] [place] [address] MCV (RBC) [Entitic vol] 95.5 fL Normal 80.0-100.0 [facility] Comment on above: Performed By: #### 1 7449351, 3211259, 8287284, 9265830, 7316303 #### [facility] [address] [place] [address] Platelet mean volume (Bld) [Entitic vol] 8.5 fL Normal 6.4-10.8 [facility] Comment on above: Performed By: #### 1 1706781, 4818559, 2539179, 9977313, 1979222 #### [facility] [address] [place] [address] Platelets (Bld) [#/Vol] 303.0 E9/L Normal 150.0-500.0 [facility] Comment on above: Performed By: #### 1 3522854, 9662323, 7753695, 4639382, 2791023 #### [facility] [address] [place] [address] RBC (Bld) [#/Vol] 4.0 E12/L Low 4.3-5.9 [facility] Comment on above: Performed By: #### 1 2233335, 1913164, 7074913, 6600102, 8755122 #### [facility] [address] [place] [address] WBC corrected for nucl RBC Auto (Bld) [#/Vol] 8.1 E9/L Normal 4.0-11.0 [facility] Comment on above: Performed By: #### 1 3176148, 1009376, 2163250, 0350937, 2722153 #### [facility] [address] [place] [address] CHEMISTRYOrdered By: SYSTEM SYSTEM on 06-21-2023 Albumin [...] High 10 - 20 Remisol Chem CMPon 12-30-2023 Albumin [Mass/Vol] 3.8 g/dL Normal 3.3-5.0 [facility] Comment on above: Performed By: #### 1 7000136, 4615015, 4450937, 6060756, 4466291 #### [facility] [address] [place] [address] Albumin/Globulin [Mass ratio] 1.3 {ratio} Normal 1.1-2.2 [facility] Comment on above: Performed By: #### 1 5861342, 6505152, 0941549, 4665782, 4473415 #### [facility] [address] [place] [address] Alk Phos 83 Int._Unit/L Normal 21-98 [facility] Comment on above: Performed By: #### 1 9403932, 4983579, 2620692, 0529731, 4991680 #### [facility] [address] [place] [address] ALT 10 Int._Unit/L Normal 6-46 [facility] Comment on above: Performed By: #### 1 6519700, 7978000, 2907359, 4219651, 8936766 #### [facility] [address] [place] [address] Anion gap [Moles/Vol] 10 mmol/L Normal 6-16 [facility] Comment on above: Performed By: #### 1 8105496, 0630846, 9279878, 2310835, 2985596 #### [facility] [address] [place] [address] AST 15 Int._Unit/L Normal 5-43 [facility] Comment on above: Performed By: #### 1 7172056, 4259762, 6185262, 9148586, 8912884 #### [facility] [address] [place] [address] Bili Total 0.5 mg/dL Normal 0.0-1.1 [facility] Comment on above: Performed By: #### 1 0946887, 9048493, 1572698, 6694378, 3814793 #### [facility] [address] [place] [address] BUN/Creat Ratio 22 No Units High 10-20 [facility] Comment on above: Performed By: #### 1 1443945, 3157120, 9232230, 1803692, 8149145 #### [facility] [address] [place] [address] Calcium [Mass/Vol] 8.7 mg/dL Low 8.9-11.1 [facility] Comment on above: Performed By: #### 1 4852572, 0200616, 5925489, 9714345, 4556528 #### [facility] [address] [place] [address] Chloride [Moles/Vol] 103 mmol/L Normal 101-111 [facility] Comment on above: Performed By: #### 1 0602660, 3357013, 4208304, 4001079, 4811516 #### [facility] [address] [place] [address] CO2 [Moles/Vol] 29 mmol/L Normal 21-31 [facility] Comment on above: Performed By: #### 1 9142511, 1693044, 4613606, 6093868, 3854836 #### [facility] [address] [place] [address] Creatinine [Mass/Vol] 0.6 mg/dL Normal 0.5-1.3 [facility] Comment on above: Performed By: #### 1 4240385, 7814275, 2442211, 4520270, 5300534 #### [facility] [address] [place] [address] Globulin (S) [Mass/Vol] 3.0 g/dL Normal 1.4-4.0 [facility] Comment on above: Performed By: #### 1 2768293, 5911858, 9291295, 8100968, 3657003 #### [facility] [address] [place] [address] Glucose [Mass/Vol] 84 mg/dL Normal 55-199 [facility] Comment on above: Performed By: #### 1 2171294, 6790649, 7501975, 1941232, 5103715 #### [facility] [address] [place] [address] Potassium [Moles/Vol] 3.9 mmol/L Normal 3.5-5.3 [facility] Comment on above: Performed By: #### 1 2899202, 6828277, 3917967, 1145216, 1641046 #### [facility] [address] [place] [address] Protein [Mass/Vol] 6.8 g/dL Normal 6.0-7.8 [facility] Comment on above: Performed By: #### 1 2060233, 2797880, 2083005, 1655869, 6595670 #### [facility] [address] [place] [address] Sodium [Moles/Vol] 138 mmol/L Normal 135-145 [facility] Comment on above: Performed By: #### 1 3280549, 2845975, 4455030, 0735370, 3251453 #### [facility] [address] [place] [address] Urea nitrogen [Mass/Vol] 13 mg/dL Normal 5-21 [facility] Comment on above: Performed By: #### 1 2626758, 7161008, 8353574, 5051425, 0465494 #### [facility] [address] [place] [address] Consent for Treatmenton 05-25 Consent for Treatment [id number]#1.00TIFF Normal [facility] Free T4on 06-21-2023 Free T4 [Mass/Vol] 1.37 ng/dL Normal 0.58-1.64 [facility] Comment on above: Performed By: #### 1 3620671, 3672474, 1804474, 0513527, 9559789 #### [facility] [address] [place] [address] HEMATOLOGYOrdered By: SYSTEM SYSTEM on 06-21-2023 Basophils/100 [...] 95.5 fL Normal 80.0 - 100.0 fL [facility] HemeAutoSS Platelet mean volume (Bld) [Entitic vol] 8.5 fL Normal 6.4 - 10.8 fL [facility] HemeAutoSS Platelets (Bld) [#/Vol] 303.0 E9/L Normal 150.0 - 500.0 E9/L [facility] HemeAutoSS RBC (Bld) [#/Vol] 4.0 E12/L Low 4.3 - 5.9 E12/L [facility] HemeAutoSS WBC corrected for nucl RBC Auto (Bld) [#/Vol] 8.1 E9/L Normal 4.0 - 11.0 E9/L [facility] HemeAutoSS Physician Orderon 06-21-2023 Physician Order [id number]#1.00TIFF Normal [facility] T3 Uptakeon 06-21-2023 T3 Uptake 46.6 % Normal 32.0-48.4 [facility] Comment on above: Performed By: #### 2 448664, 8351410, 3192707, 06940986 ####[facility] [address] [place] [address] T4 Totalon 06-21-2023 T4 18.8 microgram/dL High 4.6-9.1 [facility] Comment on above: Performed By: #### 2 025508, 7220556, 4818604, 43397495 ####[facility] [address] [place] [address] TSHon 06-21-2023 TSH Qn 0.07 m[IU]/L Low 0.34-5.60 [facility] Comment on above: Performed By: #### 2 189628, 6592282, 1902645, 29592917 ####[facility] [address] [place] [address] eGFRon 06-21-2023 GFR/1.73 sq M.predicted among non-blacks MDRD (S/P/Bld) [Vol rate/Area] mL/min/{1.73_m2} Normal >=59 [facility] Comment on above: Order Comment: Order added by Discern Expert. Performed By: #### 1 9660065, 0951620, 7522263, 7505915, 6253853 #### [facility] [address] [place] [address] Family Medicine Office/Clini c Noteon 06-20-2023 Family [...] with voice recognition software. Occasional wrong-word or ?awodu-m-xowp? substitutions may have occurred due to the [...] know she has been working with her [employer]EL[employer] in regards to blood test and lab [...] lost some weight. But again is seeing [employer]EL[employer] in regards to these fluctuations denies any [...] with prim (more content not included)... Normal [facility] Comment on above: Result Comment: Elec [...] weeks. Home care treatment may include: ? Usvk-ejd-yezzcxf pain relievers. ? A warm, moist cloth placed over the ear. Severe cases may require a procedure to insert tubes in the ears (tympanostomy tubes) to drain the fluid. Follow these instructions at home: ? Take sbdo-nmv-bjrftdi and prescription medicines only as told by [...] provider. Document Revised: 10/04/2021 Document Reviewed: 10/04/2021 [employer]) Patient Education ? 2022 [employer]. Endocrinology Thyroid Nodule A thyroid nodule is [...] or hyperthy (more content not included)... Normal [facility] MRI Spine Cervical w/o Contr elvira [...] YAMINI Technologist: CAPRI Technical Comments None Normal [facility] Consent for Treatmenton 05-23 Consent for Treatment [id number]#1.00TIFF Normal [facility] RAD - MRI Screening Formon 1 08-10-2022 RAD - MRI Screening Form [id number]#1.00TIFF Normal [facility] Physician Orderon 06-03-2023 Physician Order [id number]#1.00TIFF Normal [facility] CHEMISTRYOrdered By: SYSTEM SYSTEM on 12-03-2021 [...] Invalid Interpretation Code Not Detected [facility] [employer] Comment on above: Result Comment: This nucleic acid amplification test was developed and its performance characteristics determined by [employer]. Nucleic acid amplification tests include RT-PCR and [...] detected) result in this assay. Performed at: [address] [id number] PhD Mahnaz Conklin Vital Signs Date Time Vital Sign Value Performing Clinician Facility 04-06-2024 08:21-0400 Body height 167.6 cm Petra Calle CENTRAL SUPPLY CLERK Work Phone: [facility] 04-06-2024 08:21-0400 Body mass index (BMI) [Ratio] 21.63 kg/m2 Petra Calle CENTRAL SUPPLY CLERK Work Phone: [facility] 04-06-2024 08:21-0400 Body weight 60.78 kg Petra Calle CENTRAL SUPPLY CLERK Work Phone: [facility] 04-06-2024 08:21-0400 Diastolic blood pressure 76 mm[Hg] Petra Calle CENTRAL SUPPLY CLERK Work Phone: [facility] 04-06-2024 08:21-0400 Heart rate 76 /min Petra Calle CENTRAL SUPPLY CLERK Work Phone: [facility] 04-06-2024 08:21-0400 SaO2% (BldA) [Mass fraction] 98 % Petra Calle CENTRAL SUPPLY CLERK Work Phone: [facility] 04-06-2024 08:21-0400 Systolic blood pressure 118 mm[Hg] Petra Calle CENTRAL SUPPLY CLERK Work Phone: [facility] 03-01-2024 08:30-0400 Body height 167.6 cm Marta Puente MD Work Phone: [facility] 03-01-2024 08:30-0400 Body mass index (BMI) [Ratio] 21.79 kg/m2 Marta Puente MD Work Phone: [facility] 03-01-2024 08:30-0400 Body weight 61.24 kg Marta Puente MD Work Phone: [facility] 03-01-2024 08:30-0400 Diastolic blood pressure 69 mm[Hg] Marta Puente MD Work Phone: [facility] 03-01-2024 08:30-0400 Systolic blood pressure 100 mm[Hg] Marta Puente MD Work Phone: [facility] 11-12-2023 12:45-0400 Blood Pressure Location Paul Gudimella [facility] 11-12-2023 12:45-0400 Diastolic blood pressure 76 mm[Hg] Paul Gudimella [facility] 11-12-2023 12:45-0400 Heart rate 72 /min Paul Gudimella [facility] 11-12-2023 12:45-0400 SaO2% (BldA) [Mass fraction] 99 % Paul Gudimella [facility] 11-12-2023 12:45-0400 Systolic blood pressure 116 mm[Hg] Paul Gudimella [facility] 10-07-2023 10:22-0400 Blood Pressure Location Nancy MCKNIGHT [facility] 10-07-2023 10:22-0400 Body temperature 97.88 [degF] Nancy MCKNIGHT [facility] 10-07-2023 10:22-0400 Diastolic blood pressure 76 mm[Hg] Nancy MCKNIGHT [facility] 10-07-2023 10:22-0400 Heart rate 66 /min Nancy MCKNIGHT [facility] 10-07-2023 10:22-0400 Respiratory rate 16 /min Nancy MCKNIGHT [facility] 10-07-2023 10:22-0400 SaO2% (BldA) [Mass fraction] 100 % Nancy MCKNIGHT [facility] 10-07-2023 10:22-0400 Systolic blood pressure 116 mm[Hg] Nancy MCKNIGHT [facility] 08-04-2023 11:27-0500 Body height 167.6 cm Marta Puente MD Work Phone: [facility] 08-04-2023 11:27-0500 Body mass index (BMI) [Ratio] 21.14 kg/m2 Marta Puente MD Work Phone: [facility] 08-04-2023 11:27-0500 Body weight 59.42 kg Marta Puente MD Work Phone: [facility] 08-04-2023 11:27-0500 Diastolic blood pressure 81 mm[Hg] Marta Puente MD Work Phone: [facility] 08-04-2023 11:27-0500 Systolic blood pressure 111 mm[Hg] Marta Puente MD Work Phone: [facility] 07-24-2023 13:41-0500 Blood Pressure Location Paul Gudimella [facility] 07-24-2023 13:41-0500 Diastolic blood pressure 70 mm[Hg] Paul Gudimella [facility] 07-24-2023 13:41-0500 Heart rate 86 /min Paul Gudimella [facility] 07-24-2023 13:41-0500 SaO2% (BldA) [Mass fraction] 98 % Paul Gudimella [facility] 07-24-2023 13:41-0500 Systolic blood pressure 106 mm[Hg] Paul Gudimella [facility] 07-18-2023 16:16-0500 Blood Pressure Location Christeduardo BROWN [facility] 07-18-2023 16:16-0500 Diastolic blood pressure 60 mm[Hg] Christopher BROWN [facility] 07-18-2023 16:16-0500 Heart rate 92 /min Christopher BROWN [facility] 07-18-2023 16:16-0500 Respiratory rate 16 /min Christopher BROWN [facility] 07-18-2023 16:16-0500 SaO2% (BldA) [Mass fraction] 98 % Christopher BROWN [facility] 07-18-2023 16:16-0500 Systolic blood pressure 90 mm[Hg] Christopher BROWN [facility] 06-24-2023 13:49-0500 Blood Pressure Location Paul Gudimella [facility] 06-24-2023 13:49-0500 Diastolic blood pressure 72 mm[Hg] Paul Gudimella [facility] 06-24-2023 13:49-0500 Heart rate 89 /min Paul Gudimella [facility] 06-24-2023 13:49-0500 SaO2% (BldA) [Mass fraction] 97 % Paul Gudimella [facility] 06-24-2023 13:49-0500 Systolic blood pressure 98 mm[Hg] Paul Gudimella [facility] 06-20-2023 18:43-0500 Blood Pressure Location Filiberto Shoaib [facility] 06-20-2023 18:43-0500 Body temperature 98.06 [degF] Filiberto Cramer [facility] 06-20-2023 18:43-0500 Diastolic blood pressure 76 mm[Hg] Filiberto Cramer [facility] 06-20-2023 18:43-0500 Heart rate 96 /min Filiberto Cramer [facility] 06-20-2023 18:43-0500 SaO2% (BldA) [Mass fraction] 98 % Filiberto Cramer [facility] 06-20-2023 18:43-0500 Systolic blood pressure 122 mm[Hg] Filiberto Cramer [facility] 12-28-2021 11:20-0400 Body height 167.64 cm Ric Alejandrina Other [employer] Other 12-28-2021 11:20-0400 Body mass index (BMI) [Ratio] 21.14 kg/m2 Ric Alejandrina Other [employer] Other 12-28-2021 11:20-0400 Body weight 59.42 kg Ric Alejandrina Other [employer] Other 04-17-2021 15:40-0400 Body height 167.64 cm Ric Alejandrina Other [employer] Other 04-17-2021 15:40-0400 Body mass index (BMI) [Ratio] 21.14 kg/m2 Ric Alejandrina Other [employer] Other 04-17-2021 15:40-0400 Body weight 59.42 kg Ric Alejandrina Other [employer] Other 05-31-2020 15:50-0500 Body weight 63.96 kg [employer] [facility] , [place] 05-31-2020 15:50-0500 BP Diastolic 79 mm[Hg] [facility] [place] 05-31-2020 15:50-0500 BP Systolic 107 mm[Hg] KathyPreisbock [place] , [place] 05-31-2020 15:50-0500 Pulse (Heart Rate) 67 /min Kathy [employer] [facility] [place] 05-31-2020 15:50-0500 Pulse Oximetry 100 % [employer] [facility] , [place] 05-31-2020 15:50-0500 Respiratory Rate 20 /min Kathy[facility]is[place]ock- [place] Encounters Encounter Date Encounter Type Care Provider Facility Start: 07-21-2024 End: 07-21-2024 Telephone encounter Kraig Goodman MD Work Phone: [facility] Start: 05-22-2024 End: 05-24-2024 Refill Kraig Goodman MD Work Phone: [facility] Comment on above: Menopausal symptoms Start: 05-10-2024 End: 05-10-2024 ambulatory SUHAS MCGHEE Facility[facility] Start: 05-10-2024 End: 05-10-2024 [facility] Start: 04-06-2024 End: 04-06-2024 ambulatory PETRA CALLE Not Available Start: 04-06-2024 End: 04-06-2024 Office outpatient visit 15 minutes Petra Calle CENTRAL SUPPLY CLERK Work Phone: [facility] Comment on above: Cervical radiculopat hy (Primary Dx); Lumbosacral radiculopathy; Paresthesias; Migraine without aura and without status migrainosus, not intractable (CMS/HCC); Myalgia Start: 03-29-2024 End: 03-29-2024 ambulatory Suzie Alegria MD Facility:[facility] Start: 03-08-2024 End: 03-08-2024 Bamboo flowsheet Edwin Ralf DO Work Phone: [facility] Start: 03-08-2024 End: 03-08-2024 Bamboo flowsheet Edwin Ralf DO Work Phone: [facility] Start: 03-08-2024 End: 03-08-2024 Patient encounter procedure Edwin Ralf DO Work Phone: [facility] Comment on above: Lumbosacral radiculo shira (Primary Dx); Low back pain at multiple sites; Paresthesia; Sacral radiculopathy Start: 03-08-2024 End: 03-08-2024 ambulatory EDWIN RALF Not Available Start: 03-01-2024 End: 03-01-2024 Bamboo flowsheet Marta Puente MD Work Phone: [facility] Start: 03-01-2024 End: 03-01-2024 Bamboo flowsheet Marta Puente MD Work Phone: [facility] Start: 03-01-2024 End: 03-01-2024 Office outpatient visit 15 minutes Marta Puente MD Work Phone: [facility] Comment on above: Mass of thyroid nadir on (Primary Dx) Start: 03-01-2024 End: 03-01-2024 ambulatory MARTA CHIUMIS Not Available Start: 01-13-2024 End: 01-13-2024 ambulatory Marta Puente Facility[facility] Start: 01-13-2024 End: 01-13-2024 Patient encounter procedure Marta Puente [facility] Start: 11-12-2023 End: 11-12-2023 ambulatory Paul Kali Facility:[facility] Start: 11-12-2023 End: 11-12-2023 Patient encounter procedure Pauldinesh Bass [facility] Start: 10-21-2023 End: 10-21-2023 Patient encounter procedure SUHAS MCGHEE [facility] Start: 10-21-2023 End: 10-21-2023 ambulatory PETRA CALLE Not Available Start: 10-07-2023 End: 10-07-2023 ambulatory Nancy MCKNIGHT Facility: [facility] Start: 10-07-2023 End: 10-07-2023 Patient encounter procedure Nancy MCKNIGHT [facility] Start: 09-10-2023 End: 09-10-2023 ambulatory SUHAS MCGHEE Facility:[facility] Start: 09-10-2023 End: 09-10-2023 Patient encounter procedure SUHAS MCGHEE [facility] Start: 08-04-2023 Bamboo flowsheet Marta rubio MD Work Phone: [facility] Start: 08-04-2023 Bamboo flowsheet Marta rubio MD Work Phone: [facility] Start: 08-04-2023 End: 08-04-2023 Office outpatient visit 15 minutes Marta Puente MD Work Phone: [facility] Comment on above: Mass of thyroid nadir on (Primary Dx); Hyperthyroidism (CMS/HCC) Start: 08-04-2023 End: 08-04-2023 ambulatory MARTA PUENTE Not Available Start: 07-29-2023 ambulatory Nancy MCKNIGHT [facility] ity: [facility] Start: 07-24-2023 End: 07-24-2023 ambulatory Paul Kali Facility:[facility] Start: 07-24-2023 End: 07-24-2023 Patient encounter procedure Paul Gudimelkeysha [facility] Start: 07-18-2023 End: 07-18-2023 ambulatory Nancy [facility] Facility:[facility] Start: 07-18-2023 End: 07-18-2023 Patient encounter procedure Nancy MCKNIGHT [facility] Start: 07-18-2023 End: 07-18-2023 ambulatory Paul Swapnaky Facility:[facility] Start: 07-18-2023 End: 07-18-2023 Patient encounter procedure Paul Gudimella [facility] Start: 07-14-2023 End: 07-14-2023 ambulatory MD Ruben Mcknight Work Phone: [facility] Work Phone: Start: 07-14-2023 End: 07-14-2023 Departed Referred MD Ruben Mcknight Work Phone: [facility] Start: 07-08-2023 End: 10-07-2023 ambulatory Paul Gudimella Facility:[facility] Start: 07-08-2023 End: 10-07-2023 Recurring Paul Gudimella [facility] Start: 07-04-2023 End: 07-04-2023 ambulatory MARTA PUENTE Not Available Start: 06-27-2023 ambulatory Paul Gudimella Facilit y:[facility] Start: 06-27-2023 End: 06-27-2023 ambulatory Paul Gudimella Facility:[facility] Start: 06-27-2023 End: 06-27-2023 Patient encounter procedure Paul Gudimella [facility] Start: 06-24-2023 End: 06-24-2023 ambulatory Paul Gudimella Facility:[facility] Start: 06-24-2023 End: 06-24-2023 Patient encounter procedure Paul Gudimella [facility] Start: 06-21-2023 End: 06-21-2023 ambulatory Filiberto Cramer Facility:[facility] Start: 06-21-2023 End: 06-21-2023 Patient encounter procedure Filiberto Cramer [facility] Start: 06-20-2023 End: 06-20-2023 ambulatory Filiberto Cramer Facility: [place] Start: 06-20-2023 End: 06-20-2023 Patient encounter procedure Filiberto Cramer [facility] Start: 06-09-2023 End: 06-09-2023 ambulatory Narendranath Lakshmipathy Facility:[facility] Start: 06-09-2023 End: 06-09-2023 Patient encounter procedure Narendranath Lakshmipathy [facility] Start: 05-07-2023 End: 05-07-2023 ambulatory KRAIG Londono MAXINE Not Available Start: 04-28-2023 End: 04-28-2023 Patient encounter procedure EBER JOSEDerek POTTS [facility] Start: 11-05-2022 End: 11-06-2022 ambulatory NARENDRANATH LAKSHMIPATHY . Facility:[facility] Start: 10-22-2022 End: 10-22-[address] DOCTOR ALEJANDRE Facility:[facility] Start: 10-01-2022 End: 10-02-2022 ambulatory ISAURA KELLY . Facility:[facility] Start: 08-27-2022 End: 08-27-2022 ambulatory Ric Tinoco Other [facility] Other Start: 08-27-2022 Telephone encounter Ric Tinoco [facility] Start: 06-11-2022 End: 06-12-[address] HERB RIVERO . Facility:[facility] Start: 05-28-2022 End: 05-28-[address] HERB RIVERO . Facility:[facility] Start: 03-05-2022 End: 03-06-[address] HERB RIVERO . Facility:[facility] Start: 12-28-2021 End: 12-28-2021 ambulatory Ric Tinoco Other [facility] Other Start: 12-28-2021 Office outpatient vi sit 15 minutes Ric Tinoco [facility] Start: 12-03-2021 End: 12-03-2021 Patient encounter procedure Kraig J Maxine [facility] Start: 11-08-2021 End: 11-09-[address] HERB RIVERO . Facility: Start: 07-13-2021 End: 10-11-2021 Patient encounter procedure Nancy MCKNIGHT [facility] Start: 04-17-2021 Office outpatient vi sit 15 minutes Ric GRIMES [facility] Start: 05-31-2020 End: 05-31-2020 Emergency department [facility] Start: 05-31-2020 End: 05-31-2020 Emergency department patient visit Kathy Ghosh Work Phone: [facility] ED Comment on above: Chest wall pain (Brunilda michelet Dx) Start: 12-30-2018 End: 01-07-2019 Patient encounter procedure PROVIDER UNKNOWN Facility:[facility] Procedures Date Procedure Procedure Detail Performing Clinician Start: 03-08-2024 End: 03-08-2024 Needle emg ea extremty w/paraspinl area complete Edwin Arambula DO Work Phone: Start: 07-14-2023 Fine biopsy needle, device (physical object) Nancy MCKNIGHT Comment on above: thyroid nodule Start: 06-12-2020 Local anesthetic sac ral epidural block Nancy MCKNIGHT Comment on above: @ [facility] per pain mgmt Start: 05-31-2020 Ecg routine ecg w/le ast 12 lds w/i&r KATHYCORNELIUS GHOSH Start: 05-31-2020 Ecg routine ecg w/le ast 12 lds w/i&r Kathycornelius Ghosh Work Phone: Start: 12-06-2019 Interbody fusion of lumbar spine by anterior approach Nancy MCKNIGHT Comment on above: [facility] Start: 06-19-2018 Removal of sebaceous cyst Nancy MCKNIGHT Comment on above: Right inner thigh Start: 06-23-2006 Augmentation mammoplasty Nancy MCKNIGHT H/O: hysterectomy S/P laparoscop ic hysterectomy MD Ruben Mcknight Work Phone: laparoscopy 4 [facility] Comment on above: 2014 Dr. Redd- endo metriocliff laparoscopy 5 Nancy [facility] Comment on above: 2014 Dr. Chantel narvaez metatilio lumbar microdisectomy 5 Rex MCKNIGHT Comment on above: 10/2017 Dr. Barnes @ [facility] lumbar microdisectomy 6 Rex MCKNIGHT Comment on above: 10/2017 Dr. Barnes @ [facility] TV 6 Nancy [facility]IR[facility] Comment on above: per Dr. Glez 8 wisdom teeth extracted Ruben MCKNIGHT Plan of Treatment Date Care Activity Detail Author Start: 05-31-2026 Screening for malignant neoplasm of cervix [facility] Start: 09-20-2024 End: 09-20-2024 Patient encounter procedure [facility] Start: 08-02-2024 End: 08-02-2024 Patient encounter procedure 08/02/2024 3:00 PM EST Office Visit [facility] [address] [place] [address] Kraig Goodman MD [address] [place] [address] [facility] Start: 04-28-2024 End: 04-28-2024 Patient encounter procedure 04/28/2024 9:40 AM EST Office Visit [facility] [address] [place] [id number] Suhas Mcghee MD [address] [place] [address] [facility] Start: 04-06-2024 End: 04-06-2024 Patient encounter procedure 04/06/2024 8:20 AM EDT Office Visit [facility] [address] [place] [id number] Petra Calle, CENTRAL SUPPLY CLERK [address] [place] [address] [facility] Start: 03-08-2024 End: 03-08-2024 Patient encounter procedure [facility] Comment on above: Arrived Start: 03-01-2024 End: 03-01-2024 Patient encounter procedure 03/01/2024 8:30 AM EDT Office Visit [facility] [address] [place] [address] Marta Puente MD [address] [facility] [address] [place] [address] Arrived [facility] Comment on above: Arrived Start: 02-22-2024 Influenza vaccination Influenza Vacc ine (#1) [facility] Start: 08-04-2023 End: 08-04-2023 Patient encounter procedure 08/04/2023 11:20 AM EST Office Visit [facility] [address] [place] [address] Marta Puente MD [address] [facility] [address] [place] [address] Arrived [facility] Comment on above: Arrived Start: 02-21-2023 Influenza vaccination Influenza Vacc ine (#1) [facility] Start: 02-22-2020 Influenza vaccination Flu vaccine (# 1) [place] Start: 2005 Screening for malignant neoplasm of cervix Pap Smear [facility] EKG 12 Lead EKG 12 Lead ECG STAT 05/31/2020 4:01 PM EST [place] Immunizations Immunization Date Immunization Notes Care Provider Fa tony 10-28-2020 COVID-19, mRNA, LNP-S, PF, 30 mcg/0.3 mL dose; Translations: [Pfizer-BioNTech COVID-19 Vaccine] Nancy MCKNIGHT [facility] Comment on above: Reason for Medicatio n: Prophylaxis 10-07-2020 COVID-19, mRNA, LNP-S, PF, 30 mcg/0.3 mL dose; Translations: [Pfizer-BioNTech COVID-19 Vaccine] Nancy MCKNIGHT [facility] Comment on above: Reason for Medicatio n: Prophylaxis 04-15-2020 influenza, injectable, quadrivalent, contains preservative Nancy MCKNIGHT [facility] 04-15-2020 influenza virus vaccine, unspecified formulation Marta Puente MD Work Phone: [facility] 03-23-2018 influenza virus vaccine, unspecified formulation Nancy JUAN LUIS [facility] 03-23-2017 influenza, injectable, quadrivalent, contains preservative Marta Puente MD Work Phone: [facility] 03-10-2013 tetanus toxoid, reduced diphtheria toxoid, and acellular pertussis vaccine, adsorbed Nancy MCKNIGHT [facility] Comment on above: Reason for Medicatio n: Other (see comment) 10-13-2007 tetanus toxoid, reduced diphtheria toxoid, and acellular pertussis vaccine, adsorbed Filiberto Cramer [facility] 10-24-1999 hepatitis A and hepatitis B vaccine Filiberto Cramer [facility] 01-25-1998 measles, mumps and rubella virus vaccine Filiberto Cramer [facility] NEGATED: Highlighted row has not occurred!07-18-2023 influenza virus vaccine, unspecified formulation Nancy MCKNIGHT [facility] [place] NEGATED: Highlighted row has not occurred!06-20-2023 influenza virus vaccine, unspecified formulation Filiberto Cramer [facility] Care Payers Date Payer Category Payer Self-pay [id number] 2023 Unknown 2022 Medicaid [id number] 2022 Medicaid [id number] 2006 Private Health Insurance [id number] 1984 Unknown [id number] 2.16.8 40.1.222035.3.579.2.647 1984 Unknown [id number] 2.16.84 0.1.312195.3.579.2.174 1984 Unknown [id number] 2.16.84 0.1.988881.3.579.2.593 1984 Unknown [id number] 2.16.84 0.1.054101.3.579.2.593 1984 Unknown [id number] 2.16.84 0.1.022617.3.579.2.593 1984 Unknown [id number] 2.16.84 0.1.544247.3.579.2.593 1984 Unknown [id number] 2.16.84 0.1.633931.3.579.2.593 1984 Unknown [id number] 2.16.84 0.1.138679.3.579.2.593 1984 Unknown [id number] 2.16.84 0.1.376396.3.579.2.593 1984 Unknown [id number] 2.16. 840.1.245249.3.579.2.196 1984 Unknown [id number] 2.16.84 0.1.514074.3.579.2.9 1984 Unknown [id number] 2.16.84 0.1.041245.3.579.2.1258 1984 Unknown [id number] 2.16.84 0.1.452406.3.579.2.9 1984 Unknown [id number] 2.16.84 0.1.670188.3.579.2.1258 1984 Unknown [id number] 2.16.84 0.1.764028.3.579.2.1258 1984 Unknown [id number] 2.16.84 0.1.492944.3.579.2.1258 1984 Unknown [id number] 2.16.840 .1.582041.3.579.2.1258 1984 Unknown [id number] 2.16.8 40.1.665749.3.579.2 1984 Unknown [id number] 2.16.8 40.1.701759.3.579.2 1984 Unknown [id number] 2.16.8 40.1.413651.3.579.2 1984 Unknown [id number] 2.16.8 40.1.510248.3.579.2 1984 Unknown [id number] 2.16.8 40.1.074566.3.579.2 1984 Unknown [id number] 2.16.8 40.1.127277.3.579.2 1984 Unknown [id number] 2.16.8 40.1.764192.3.579.2 1984 Unknown [id number] 2.16.8 40.1.640169.3.579.2 1984 Unknown [id number] 2.16.8 40.1.225768.3.579.2 1984 Unknown [id number] 2.16.8 40.1.820460.3.579.2.727 1984 Unknown [id number] 2.16.8 40.1.371015.3.579.2.727 1984 Unknown [id number] 2.16.8 40.1.629288.3.579.2.727 1984 Unknown [id number] 2.16.8 40.1.820135.3.579.2.727 1984 Unknown [id number] 2.16.8 40.1.312789.3.579.2.727 1984 Unknown [id number] 2.16.8 40.1.013387.3.579.2.727 1984 Unknown [id number] 2.16.8 40.1.891595.3.579.2.727 1984 Unknown [id number] 2.16.8 40.1.248107.3.579.2.727 1959 Private Health Insurance [id number] 1.2.840.278596.1.13.239.2.7.3.609624.315 Unknown [id number] 2.16.8 40.1.714983.3.579.2.531 Social History Date Type Detail Facility Start: 05-31-2020 End: 05-06-2023 Tobacco smoking status IAIS Never smoker [place] Start: 05-31-2020 End: 05-06-2023 Tobacco use and exposure Never used [place] Sex Assigned At Not on file [place] Exposure to SARS-CoV -2 (event) Not sure [place] Tobacco smoking status Never [facility] Start: 07-03-2023 End: 04-06-2024 Sex Assigned At Female [employer] Other Start: 1985 Sex Assigned At Female [facility] Start: 07-31-2023 End: 04-10-2024 Alcohol intake Ex-drinker (finding) [facility] Start: 07-03-2023 End: 04-06-2024 History of Social function [facility] How [...] fusion (ALIF) Orthopaedic bone screw, non-bioabsorbable, non-sterile +[id number] FDA Start: 12-06-2019 Anterior lumbar interbody fusion (ALIF) Orthopaedic bone screw, non-bioabsorbable, non-sterile +[id number] FDA Start: 12-06-2019 Anterior lumbar interbody fusion (ALIF) Bone-screw internal spinal fixation system, non-sterile +[id number] FDA Start: 12-06-2019 Anterior lumbar interbody fusion (ALIF) Bone-screw internal spinal fixation system, non-sterile +[id number] FDA Start: 12-06-2019 Anterior lumbar interbody fusion (ALIF) Spinal fusion graft kit [id number] FDA Start: 12-06-2019 Anterior lumbar interbody fusion (ALIF) Spinal bone screw, non-bioabsorbable ()[id number] FDA Start: 12-06-2019 Anterior lumbar interbody fusion (ALIF) Metallic spinal fusion cage, non-sterile [id number] FDA Start: 12-06-2019 Anterior lumbar interbody fusion (ALIF) Bone-screw internal spinal fixation system, non-sterile +[id number] FDA Start: 12-06-2019 Functional Status Date Assessment Result Facility 11-12-2023 Functional Status N/A [facility] 10-07-2023 Functional Status N/A [facility] 07-24-2023 Functional Status N/A [facility] 07-18-2023 Functional Status N/A [facility] 06-24-2023 Functional Status N/A [facility] 06-20-2023 Functional Status N/A [facility] Clinical Notes 04-17-2021 to 07-21-2024 Telephone Encounter - Shayy Phillips - 07/21/2024 1:33 PM ESTTelephone Encounter - Shayy Phillips - 07/21/2024 1:33 PM ESTLabJeffry Mcnulty MA - 03/08/2024 10:00 AM EDTLaboratoryLaboratoryRadiology Note Date & Type Note Facility 07-21-2024 Telephone encounter Note error [facility] 07-21-2024 Miscellaneous Notes error documented in this encounter [facility] 05-10-2024 Evaluation + Plan note Diagnostic Tests PendingT3 Free 05/10/24 Future Scheduled TestsLab Miscellaneous-LC 07/24/23 [facility] 03-08-2024 History of Presen t illness Narrative Images from the original note were not included. Reason for Appointment: EMG Patient: Jessica Griffiths : 1985 EMG Computer: [employer] Referring Physician: Eber Potts NP EMG: LIONEL inoculator: Deya Mcnulty CMA Office Location: [place] Reason for EMG: c/o leg pain and pressure. Back pain. Radiates in the hips, shooting pains down the legs. Hx of back surgery. No Hx of DM, not taking blood thinners. Comments: Procedure explained to the patient who expressed understanding. documented in this encounter [facility] 03-01-2024 History of Presen t illness Narrative Subjective Patient ID: Jessica Griffiths [...] Facial numbness Fatigue 04/2023 H/O breast augmentation 2007 Hormone disorder IBS (irritable bowel syndrome) Lumbar herniated disc Menopause ovarian failure 2021 Urinary tract infection Past Surgical History: Procedure Laterality Date ADENOIDECTOMY BREAST SURGERY 2007 Breast augmentation BREAST SURGERY 2017 Breast implant replacement COSMETIC SURGERY FNA W IMAGING GUIDANCE 07/14/2023 thyroid FNA HYSTERECTOMY 2018 LAVH, BSO LUMBAR FUSION 12/06/2019 L5-S1 anterior lumbar interbody fusion MICRODISCECTOMY LUMBAR 10/2017 Micro discectomy L5-S1 PELVIC LAPAROSCOPY 2015 Laparoscopic SAMAN removal of endometriosis - Dr. [...] further routine US documented in this encounter [facility] 10-21-2023 Evaluation + Plan note Diagnostic Tests PendingT3 Free 10/21/23 Future Scheduled TestsLab Miscellaneous-LC 07/24/23 [facility] 10-07-2023 Hospital Discharg e instructions Patient Education 10/07/2023 08:01:29 Urinary Tract [...] Treatment for this condition includes: Antibiotic medicine. Jafj-jok-tazxgaz medicines to treat discomfort. Drinking enough water [...] Follow these instructions at home: Medicines Take iiuw-vhp-zzbibju and prescription medicines only as told by [...] provider. Document Revised: 01/19/2021 Document Reviewed: 01/19/2021 [employer] Patient Education 2022 [employer]. Follow Up Care 10/07/2023 07:28:28 With:Nancy MCKNIGHT MD, FAM Address: When: only if needed [facility] [place] 08-04-2023 History of Presen t illness Narrative Subjective Patient ID: Jessica Griffiths [...] per Dr Mcghee documented in this encounter [facility] 07-24-2023 Evaluation + Plan note Future Scheduled TestsLab Miscellaneous-LC 07/24/23Echo Transthoracic Complete 07/24/23 [facility] [place] 07-24-2023 Evaluation + Plan note Future Scheduled TestsLab Miscellaneous-LC 07/24/23 [facility] 07-18-2023 Evaluation + Plan note Diagnostic Tests PendingT3 Reverse, Serum 07/18/23Thyroid Perox.tpo Ab 07/18/23TgAb+Thyroglobulin,NIGEL or KELVIN 07/18/23 [facility] 07-18-2023 Hospital Discharg e instructions Patient Education 07/18/2023 08:07:09 Hyperthyroidism Hyperthyroidism [...] surgery. Follow these instructions at home: Take lvcx-ttm-eldzccy and prescription medicines only as told by [...] condition. Where to find more information National [place] of Diabetes and Digestive and Kidney Diseases: [...] provider. Document Revised: 08/02/2022 Document Reviewed: 08/02/2022 [employer]) Patient Education 2022 [employer]. Follow Up Care 07/18/2023 07:34:13 With:JUAN LUIS REES, SAMIR [place] Address: When: only if needed [facility] [place] 06-21-2023 Evaluation + Plan note Diagnostic Tests PendingT3 Free 06/21/23 Future Scheduled TestsCBC w/ Auto Diff 06/20/23Comprehensive Metabolic Panel 06/20/23Free T4 06/20/23 [facility] 06-20-2023 Hospital Discharg e instructions Patient Education 06/20/2023 21:07:29 Otitis Media [...] few weeks. Home care treatment may include: Hjlj-vbp-ubisszi pain relievers. A warm, moist cloth placed over the ear. Severe cases may require a procedure to insert tubes in the ears (tympanostomy tubes) to drain the fluid. Follow these instructions at home: Take xlqb-vvz-ffxxoin and prescription medicines only as told by [...] provider. Document Revised: 10/04/2021 Document Reviewed: 10/04/2021 [employer] Patient Education 2022 [employer]. 06/20/2023 19:03:16 Thyroid Nodule Thyroid Nodule A [...] in your thyroid nodule or nodules. Take zdgh-gzv-wociorj and prescription medicines only as told by [...] provider. Document Revised: 04/22/2022 Document Reviewed: 04/22/2022 [employer] Patient Education 2022 [employer]. Follow Up Care 06/20/2023 07:23:01 With:Nancy MCKNIGHT MD [facility] Address: [address] [place], [place] [id number]- When: Unknown [facility] 06-20-2023 Evaluation + Plan note Future Scheduled TestsT4 Total 06/20/23CBC w/ Auto Diff 06/20/23Comprehensive Metabolic Panel 06/20/23T3 Free 06/20/23T3 Uptake 06/20/23Thyroid Stimulating Hormone 06/20/23Free T4 06/20/23 [facility] 10-01-2022 Note CONSULTATION CONSULTATION DATE: 10/01/2022 TO: Ruben Mcknight M.D. HISTORY: Patient presents today complaining of [...] our patients to inform us about any zzsf-cwt-ysgfclm medications or herbal remedies/nutritional supplements/alternative remedies. 2. [...] options with their primary care provider. [facility] 06-11-2022 Note CONSULTATION CONSULTATION DATE: [...] increased baclofen and tizanidine from Dr. Ruben Mcknight. The patient's PAST MEDICAL HISTORY / SURGICAL [...] The patient understands and concurs. CC: Nancy Mcknight M.D. [facility] 03-05-2022 Note PAIN MANAGEMENT CONS [...] a rhizotomy along this region. CC: Dr. Mcknight [facility] 12-28-2021 Evaluation note Encounter Date [...] follow her up on an as-needed basis [employer] Other 06-13-2022 Evaluation + Plan note Diagnostic Tests Pending * Insulin Level Total 12/03/21 * T3 Free 12/03/21 * FSH Level 12/03/21 Future Scheduled Tests Laboratory* [place]21 [facility]05-19-2022 NoteCONSULTATION CONSULTATION DATE: 11/08/2021 This [...] [facility] Activities that aggravate her neck are [...] of care and would like to proceed. [facility] Signed and Approved by: ISAURA KELLY . 11/12/2021 15:05:00[facility]01-21-2022 Evaluation + Plan note Future Scheduled Tests Laboratory* [place]-19 [place] 07/13/21 [facility]10-26-2021 Evaluation note* Encounter Date Diagnosis Assessment Notes Treatment Notes Treatment Clinical Notes Mar, Spondylolisthesis at L5-S1 level (ICD-10 - M43.17) I answered a number of questions for the patient. I think a transforaminal injection may be beneficial. I also believe that she could potentially benefit from a dorsal column stimulator. She is seeing a another neurologist at [facility] and I am interested in what medication changes are made. I will see the patient again in 3 months and review this with her. I looked at the picture of the spine today she has good bone formation and her RETIREMENT hardware is intact. Because of the persistent [...] region with neurogenic claudication (ICD-10 - M48.062) [employer] Other evaluation + Plan note Future Appointments Appointment Date:06/27/2023 07:30:00 AM Scheduled Provider: Location:FT.ULTRASOUND Appointment Type:US Thyroid/Neck/Chest (FT) Appointment Date:06/27/2023 08:00:00 AM Scheduled Provider: Location:FT.CARDIO Appointment Type:CV EKG (FT) Appointment Date:07/29/2023 12:40:00 PM Scheduled Provider:Nancy MCKNIGHT MD Location:[facility] Appointment Type: Open Future Scheduled Tests Laboratory* UA With Cult Reflex 06/24/23 * CBC w/ Auto Diff 06/20/23 * Comprehensive Metabolic Panel 06/20/23 * Lipid Panel 06/24/23 * Free T4 06/20/23 Radiology* US Thyroid 06/27/23 [facility] [place] Evaluation + Plan note Future Appointments Appointment Date:07/29/2023 12:40:00 PM Scheduled Provider:[facility]: Open Future Scheduled Tests Laboratory* UA With Cult Reflex 06/24/23 * CBC w/ Auto Diff 06/20/23 * Comprehensive Metabolic Panel 06/20/23 * Lipid Panel 06/24/23 * Free T4 06/20/23 Radiology* US FNA w/ Guidance, first lesion 06/27/23 * NM Thyroid Imaging w/ Uptk Multiple 06/27/23 [facility] Future Appointments Appointment Date:09/11/2023 08:00:00 AM Scheduled Provider: [facility] Type:CV Echo (FT) Diagnostic Tests Pending * T3 Free 09/10/23 * Thyrotropin Receptor Antibody, Serum 09/10/23 Future Scheduled Tests Laboratory* Lab Miscellaneous-LC 07/24/23 Radiology* Echo Transthoracic Complete 09/11/23 [facility] noteNo InformationNort RedDrummer Other evaluation noteNo assessment information available [facility] Work Phone: Evaluation note* Diagnosis [...] History Micro discectomy L5-S1 10/2017 Surgical History ALICharley-Doctor Alejandrina Hospitalization History see surgical hx [facility] Other Hospital course Narrative No data available for this section [facility] No data available for this section [facility] No data available for this section [facility] Summary Purpose Family History Relationship Condition Age at Onset Recorded Date/T rody Not Specified Healthy female adult Unknown father Osteoarthritis Unknown Degeneration of intervertebral disc Unkno wn Advance Directives Documents on File Type Date Recorded 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 * Chest Pain: Musculoskeletal (Malaysian) documented in this encounter Assessments Diagnosis Chest wall pain Painful respiration Reason for Referral Reason Evaluate and Treat C onsider for Dorsal Column Stimulator Diagnosis 1 Spondylolisthesis at L5-S1 level (M43.17) Referral Organization [facility] Ne urosurgery Referring Provider First Name Ric Referring Provider Last Name Alejandrina Referring Provider Specialty Neurologica l Surgery Referred Organization Unknown Facility Referred Provider Zumbar,Mansoor M Referred Provider Specialty Pain Medicin e Referral Priority Routine Additional Source Comments INFORMATION SOURCE (unrecogn ized section and content) DATE CREATED AUTHOR 01/14/2020 [facility] DATE CREATED AUTHOR AUTHOR'S ORGANIZ ATION 06/01/2020 [facility] DATE CREATED AUTHOR AUTHOR'S ORGANIZ ATION 11/06/2022 [facility] DATE CREATED AUTHOR AUTHOR'S ORGANIZ ATION 08/01/2023 [facility] DATE CREATED AUTHOR AUTHOR'S ORGANIZ ATION 04/07/2024 [facility] DATE CREATED AUTHOR AUTHOR'S ORGANIZ ATION 04/08/2024 [facility] EPIC DATE CREATED AUTHOR AUTHOR'S ORGANIZ ATION 05/12/2024 [facility] DATE CREATED AUTHOR AUTHOR'S ORGANIZ ATION 05/17/2024 [facility] Reason for Visit (unrecogniz [...] Status: Active Member Role Status Dates Ruben Mcknight MD Primary Care Provider Active Team Status: Inactive Member Role Status Dates Ruben Mcknight MD Primary Care Provider Active Start: July 14, 2023 End: July 14, 2023 Marta Puente Jr, MD Attending Provider Active Start: July 14, 2023 End: July 14, 2023 Pilates Coordinator Relationship Specialty Start Date End Date Nancy Mcknight MD [address] [place] [address] PCP - General 05/07/23 Pilates Coordinator Relationship Specialty Start Date End Date Nancy Mcknight [place] [address] [place] [address] PCP - General 05/07/23 Pilates Coordinator Relationship Specialty Start Date End Date Nancy Mcknight MD [address] [place] [address] [facility] - General 05/07/23 Pilates Coordinator Relationship Specialty Start Date End Date Nancy Mcknight MD [address] [place] [address] [facility] - General 05/07/23 Pilates Coordinator Relationship Specialty Start Date End Date Nancy Mcknight MD [address] [place] [address] [facility] - General 05/07/23 Pilates Coordinator Relationship Specialty Start Date End Date Nancy Mcknight MD [address] [place] [phone] [facility] 05/07/23 Pilates Coordinator Relationship Specialty Start Date End Date Nancy Mcknight MD [address] [place] [address] [facility] 05/07/23 Pilates Coordinator Relationship Specialty Start Date End Date Nancy Mcknight MD [address] [place] [phone] [facility] General 05/07/23 Goals (unrecognized section and content) [...] BE BASED ON THE PRIMARY CLINICAL RECORDS. [facility] [employer] [facility]. provides no warranty or guarantee of the accuracy or completeness of information in this document.
[2024-08-02 09:07] VITALS: BP 107/73; PULSE 77; TEMP 36.4; O2SAT 100
[2024-08-02 09:37] VITALS: BP 103/69; PULSE 70; PULSE 72; O2SAT 100; O2SAT 99
--- NOTE | 2024-08-02 09:41 | W.PM.PROCNOT ---
Date of procedure: 08/02/24 Pre-op diagnosis: Pain due to cervical spondylosis without myelopathy Post-op diagnosis: same as pre-op Procedure: Procedure: Right C3-4, 4-5 medial branch block Medications: Bupivacaine 0.25% 3cc The patient was seen and examined in the preoperative holding area.? The informed consent was obtained and placed on the chart.? The patient was brought to the medical procedure unit and placed in the prone position.? A timeout was completed verifying correct patient, procedure site, positioning, plan, and special equipment.? Using aseptic technique, the needle is placed at right C3. Under direct fluoroscopic visualization, a Quincke tip needle was advanced to the midpoint of the waist of the articular pillar at the respective medial branch segment. The above-mentioned injectate was placed in a 1 mL aliquot proceeded by negative aspiration.? The needle was removed.? The procedure was completed at right C4, 5. Insertion site was covered.? Patient was taken to the postprocedural recovery area and monitored for an appropriate length of time before found suitable for discharge in the accompaniment of a responsible adult. Anesthesia: Local Surgeon: Suzie Alegria Pathology: none sent Condition: stable Disposition: no change
[2024-08-02] MEDS: BUPIVACAINE HCL 0.25% PF 25 MG/10 ML VIAL 3 ML INJ (09:42)
[2024-08-02] MEDS: LIDOCAINE HCL 2% 400 MG/20 ML MDV INJ (09:42)
== END 2024-08-02 09:45 | disposition home or self-care (01) ==
LOC: SURGOUT 09:00
PROVIDERS: Visit Provider Anesthesiology
DX: M47.812 Spondylosis without myelopathy or radiculopathy, cervical region (principal); M54.2 Cervicalgia
CPT/HCPCS: 64490; 64491; J0665

== ENCOUNTER 2024-08-23 14:33 | Outpatient (OUT) | payer MEDICAID, SELFPAY ==
--- OUTSIDE RECORDS SUMMARY | 2024-08-23 14:42 | XMS_ITS | CCD ---
Author Organization [facility] Care Team Providers Care Photo Specialist Name Role Phone UNKNOWN, PROVIDER Admitting Unavailable UNKNOWN, PROVIDER Attending Unavailable UNKNOWN, PHYSICIAN Referring Unavailable UNKNOWN, PHYSICIAN Primary Care Unavailable Nancy Mcknight Primary Care Provider KATHY GHOSH Attending Unavailable NANCY MCKNIGHT Primary Care Unavailable Nancy MCKNIGHT Primary Care Physician [phone] Ric Tinoco Unavailable JOSEFA ., DR HERB Melgar Attending Unavailable RIVERO ., DR HERB Melgar Admitting Unavailable RIVERO ., DR HERB Melgar Consulting Unavailable MISC, DR MURRIETA Primary Care Unavailable LAKSHMIPATHY ., SHARONA Consulting Fide vailable MISC, DR MURRIETA Primary Care Unavailable LAKSHMIPATHY ., NARENDRANATH Admitting Fide vailable LAKSHMIPATHY ., NARENDGINOATH Attending Fide vailable HALKER .LOYD Consulting Unavailable [...] Unavailable ROBIN .ISAURA Consulting Unavailable MD Ruben Mcknight Primary Care Provider [phone] MD Marta Puente Jr Attending Provider Unacurt Lincolns Marta Abreu H Attending Unavailable Ray Abreu, Marta H Admitting Unavailable Ruben Mcknight Primary Care Unavailable Nancy Mcknight MD Primary Care Provider Nancy MCKNIGHT Primary Care Physician Gudimella, Matt Attending Unavailable Gudimella, Matt Attending Unavailable Swapnala, Matt Attending Unavailable Nancy MCKNIGHT Attending Unavailable Nancy MCKNIGHT Attending Unavailable Nancy MCKNIGHT Attending Unavailable SUMI, AHMARd Whitehead Attending Unavailable SUMI, AHMAD F Admitting Unavailable Filiberto Cramer Admitting Unavailable Filiberto Cramer Attending Unavailable Gudimella, Matt Admitting Unavailable Gudimella, Matt Attending Unavailable SUMI, AHMAD F Attending Unavailable SUMI, AHMAD F Admitting Unavailable SUMI, AHMAD F Attending Unavailable SUMI, AHMAD F Admitting Unavailable Lakshmipathy, Narendranath Admitting Unava ilable Lakshmipathy, Narendranath Attending Unava ilable Lakshmipathy, Narendranath Referring Unava ilable Roldanmis, Marta H Referring Unavailable Roldanmis Marta H Admitting Unavailable Timmis, Marta H Attending Unavailable Gudimella, Matt Admitting Unavailable Gudimella, Matt Attending Unavailable Gudimella, Matt Referring Unavailable Gudimella, Matt Admitting Unavailable Gudimella, Matt Attending Unavailable Gudimella, Matt Referring Unavailable Filiberto Cramer Attending Unavailable Gudimella, Matt Attending Unavailable SUMI, AHMAD F Attending Unavailable SUMI, AHMAD F Admitting Unavailable KRAIG GOODMAN Attending Unavailable TIMMIS, MARTA H Attending Unavailable NANCY MCKNIGHT Referring Unavailable PETRA CALLE Attending Unavailable TIMMIS, MARTA H Attending Unavailable EDWIN ARAMBULA Attending Unavailable EBER POTTS Referring Unavailable PETRA CALLE Attending Unavailable Airam REES, Suzie Greer Attending Unavailable Airam REES, Suzie Greer Attending Unavailable Airam REES, Suzie Greer Attending Unavailable Allergies Allergy Classification Reported Allergen(s) Allergy Type Date of Onset Reaction(s) Facility (1 source) Adhesive agent; Translations: [Unknown] Propensity to adverse reactions (disorder) 9 [facility] Repository (19 sources) Adhesive Tape; Translations: [Tape] Drug allergy Eruption of skin (disorder) [facility] (20 sources) Latex; Translations: [Latex] Drug allergy 5 Rash [employer] Other (3 sources) adhesive bandages Propensity to adverse reactions rash [facility] [employer] Other (1 source) Adhesive agent Drug allergy (disorder) 6 [facility] Repository (1 source) Adhesive agent Drug allergy (disorder) 2 [facility] Repository (1 source) Adhesive Tape Drug allergy (disorder) 0 [facility] Repository (15 sources) Wound Dressing Adhesive Drug Allergy 5 [...] course, # 28 cap(s), Refills(s) 0, Pharmacy: [facility], 168, cm, 07/11/20 8:27:00 [...] Daily, # 90 tab(s), Refills(s) 1, Pharmacy: [facility], 168, cm, 07/11/20 8:27:00 [...] mg oral tablet (20 sources) Estrogen Start: 08-02-2024 take 1 tablet by mouth once daily estradiol (Estrace) 2 MG tablet Indications: Menopausal symptoms Take 1 tablet (2 mg) by mouth Daily 30 tablet 11 08/02/2024 Active Start: 08-02-2024 take 1 tablet by jaden th once daily estradiol (Estrace) 2 MG tablet Indications: Menopausal symptoms Take 1 tablet (2 mg) by mouth Daily 30 tablet 08/02/2024 Active Start: 06-21-2024 End: 06-21-2025 take 1 tablet by mouth once daily estradiol (Estrace) 2 MG tablet Indications: Menopausal symptoms Take 1 tablet (2 mg) by mouth Daily 30 tablet 06/21/2024 08/02/2024 Discontinued (Reorder) Start: 05-07-2023 End: 05-06-2024 take 1 tablet by mouth in the morning estradiol (Estrace) 2 MG tablet Indications: Menopausal symptoms Take 1 tablet (2 mg) by mouth in the morning. 30 tablet 05/07/2023 05/06/2024 Active Start: 06-19-2018 take 1 tablet by jaden th once daily Estrace 1 mg Tab 1 mg = 1 tab(s), Oral, Daily Start Date: 06/19/18 Status: Ordered fluticasone propionate 0.05 mg/actuat metered dose nasal spray (3 sources) Corticosteroid Start: 06-20-2023 End: 06-27-2023 take 2 spray(s) nasal route once daily Flonase 0.05 mg/inh Lyerly 2 spray(s), Nasal, Daily for 7 day(s), 16 gm, Refill(s) 0, each nostril, [facility], 168, cm, 06/20/23 18:45:00 [...] BID, # 180 tab(s), Refills(s) 1, Pharmacy: [facility], 168, cm, 07/11/20 8:27:00 EST, Height/Length Dosing, 64.1, kg, 07/11/20 8:27:00 EST, Weight Dosing Start Date: 08/22/20 Status: Ordered loratadine 10 mg oral tablet (3 sources) Start: 02-23-2020 take 1 tablet by mouth once daily loratadine 10 mg Tab 10 mg = 1 tab(s), Oral, Daily, # 90 tab(s), Refills(s) 1, Pharmacy: [facility], 168, cm, 02/23/20 10:40:00 EDT, Height/Length Dosing, 65, kg, 02/23/20 10:40:00 EDT, Weight Dosing Start Date: 02/23/20 Status: Ordered Start: 11-30-2019 take 1 capsule by mo [facility] once daily loratadine (CLARITIN) 10 MG capsule Take 10 mg by mouth daily 0 11/30/2019 Active methIMAzole 10 mg oral tablet (14 sources) Thyroid Hormone Synthesis Inhibitor Start: 08-01-2023 [...] Nausea/Vomiting, # 10 tab(s), Refills(s) 0, Pharmacy: [facility], 168, cm, 07/10/20 13:24:00 [...] symptoms, # 30 tab(s), Refills(s) 0, Pharmacy: [facility], 168, cm, 10/07/23 10:32:00 EDT, Height/Length Dosing, 61, kg, 10/07/23 10:32:00 EDT, Weight Dosing Start Date: 10/07/23 Status: Ordered Start: 05-26-2020 take 1 tablet by jaden twice daily as needed oxybutynin 5 mg Tab 5 mg = 1 tab(s), Oral, BID, PRN for urinary discomfort, # 60 tab(s), Refills(s) 2, Pharmacy: [facility], 168, cm, 05/26/20 16:32:00 EST, Height/Length Dosing, 64, kg, 05/26/20 16:32:00 EST, Weight Dosing Start Date: 05/26/20 Status: Ordered End: 08-02-2024 take 1 tablet by mouth every twenty-four hours in the morning oxybutynin XL (Ditropan-XL) 5 MG 24 hr tablet Take 5 mg by mouth in the morning. 08/02/2024 Discontinued (Ineffective) take 1 tablet by jaden th once [...] breakfast, # 30 tab(s), Refills(s) 5, Pharmacy: [facility], 168, cm, 07/11/20 8:27:00 [...] Once, # 1 tab(s), Refills(s) 0, Pharmacy: [facility], 168, cm, 07/24/23 13:48:00 EST, Height/Length Dosing, 61, kg, 07/24/23 13:48:00 EST, Weight Dosing Start Date: 07/24/23 Status: Ordered Protonix 40 mg Tab-EC (3 sources) Start: 02-06-2021 take 1 tablet by mouth once daily 30 minutes before breakfast Protonix 40 mg Tab-EC 40 mg = 1 tab(s), Oral, Daily, Take 30 minutes before breakfast, # 30 tab(s), Refills(s) 5, Pharmacy: [facility], 168, cm, 07/11/20 8:27:00 EST, Height/Length Dosing, 64.1, kg, 07/11/20 8:27:00 EST, Weight Dosing Start Date: 02/06/21 Status: Ordered rimegepant 75 mg disintegrating oral tablet (20 sources) Start: 04-06-2024 End: 04-06-2024 take 1 [...] 2017 7:12am valACYclovir 1000 mg oral tablet (15 sources) Herpesvirus Nucleoside Analog DNA Polymerase Inhibitor, [...] BID, # 60 tab(s), Refills(s) 2, Pharmacy: [facility], 168, cm, 11/08/21 9:50:00 EDT, Height/Length Dosing, 65.4, kg, 11/08/21 9:50:00 EDT, Weight Dosing Start Date: 01/18/22 Status: Ordered Start: 11-23-2020 End: 08-02-2024 take 1 tablet by mouth twice daily valacyclovir 1 g Tab 1 gram = 1 tab(s), Oral, BID, # 60 tab(s), Refills(s) 2, Pharmacy: [facility], 168, cm, 07/11/20 8:27:00 EST, Height/Length Dosing, 64.1, kg, 07/11/20 8:27:00 EST, Weight Dosing Start Date: 11/23/20 Status: Ordered Start: 11-23-2020 take 1 tablet by jaden th twice daily valacyclovir 1 g Tab 1 gram = 1 tab(s), Oral, BID, # 60 tab(s), Refills(s) 2, Pharmacy: [facility], 168, cm, 07/11/20 8:27:00 EST, Height/Length Dosing, 64.1, kg, 07/11/20 8:27:00 EST, Weight Dosing Start Date: 11/23/20 Status: Ordered Completed/Discontinued Medications Medication Drug Class(es) Dates Sig (Normalized) Sig (Original) acetaminophen 325 mg / HYDROcodone bitartrate 5 mg oral tablet (2 sources) Opioid Agonist Start: 09-12-2017 End: 11-30-2019 take 1 tablet by mouth every four to six hours Hydrocodone-Acetami nophen ([place]) 5-325 mg tablet Discontinued 1 TAB PO EVERY 4-6 HOURS 30 September 12, 2017 November 30, 2019 9:37am Start: 09-04-2017 End: 09-12-2017 take 1 tablet by mouth once daily at bedtime Hydrocodone-Acetaminophen ([place]) 5-325 mg Tablet Discontinued 1 TAB PO [...] Bacterial overgrowth syndrome 08-07-2020 Episodic Menopausal disorders (3 sources) Menopausal symptom; Translations: [Menopausal and female climacteric [...] painful 07-18-2023 Episodic Other nervous system disorders (15 sources) Chronic pain; Translations: [Other chronic pain] [...] taste 03-31-2020 Episodic Other nervous system disorders (15 sources) Paresthesia; Translations: [Paresthesia of skin] 04-06-2024 Episodic Other nutritional; endocrine; and metabolic disorders (18 sources) 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 Other screening for suspected conditions (not mental disorders or infectious disease) (20 sources) Thyroid function tests abnormal; Translations: [Abnormal results of thyroid function studies] Onset: 3 Episodic Other skin disorders (7 sources) Foot callus 11-08-2021 Episodic Other skin disorders (4 sources) Eruption; Translations: [Rash and other nonspecific skin eruption] Onset: 4 Episodic Other upper respiratory disease (13 sources) Allergic rhinitis; Translations: [Allergic rhinitis, unspecified] Onset: 4 Chronic Other upper respiratory disease (15 sources) Chronic pharyngitis; Translations: [Chronic pharyngitis] Onset: [...] STATES] Onset: 3 Episodic Residual codes; unclassified (5 sources) Patient encounter status; Translations: [Other specified [...] Documented Date Episodic/Chronic Blindness and vision defects (12 sources) Diplopia; Translations: [Diplopia] Onset: 12-01-2018 10-08-2023 Episodic Malaise and fatigue (12 sources) Asthenia; Translations: [Weakness] Onset: 10-21-2023 10-21-2023 Episodic Other acquired deformities (2 sources) Spondylolisthesis, lumbosacral region; Translations: [Spondylolisthesis at L5-S1 level M43.17] Onset: 04-17-2021 Resolved: 12-28-2021 Episodic Other connective tissue disease (14 sources) Muscle pain; Translations: [Myalgia, unspecified site] Onset: 10-21-2023 04-06-2024 Episodic Other connective tissue disease (12 sources) Other symptoms and signs involving the musculoskeletal system; Translations: [Other musculoskeletal symptoms referable to limbs] Onset: 10-08-2023 10-08-2023 Episodic Other nervous system disorders (12 sources) Paresthesia of right upper limb; Translations: [Paresthesia of skin] Onset: 12-01-2018 10-08-2023 Episodic Other skin disorders (19 sources) Mass of neck; Translations: [Localized swelling, [...] [Mass/Vol] 2.3 pg/mL Invalid Interpretation Code 2.0-4.4 [facility] Comment on above: Result Comment: Perf ormed at: [facility] [address] [id number] PhD Mahnaz Conklin Performed By: #### 2 [id number] #### [facility] [address] [place] [address] CHEMISTRYOrdered By: SYSTEM SYSTEM on 05-10-2024 Free T4 [Mass/Vol] 0.72 ng/dL Normal 0.58 - 1.64 ng/dL Remisol Chem TSH Qn 2.58 m[IU]/L Normal 0.34 - 5.60 mcIU/mL Remisol Chem Free T4on 05-10-2024 Free T4 [Mass/Vol] 0.72 ng/dL Normal 0.58-1.64 [facility] Comment on above: Performed By: #### 2 [id number] #### [facility] [address] [place] [address] TSHon 05-10-2024 TSH Qn 2.58 m[IU]/L Normal 0.34-5.60 [facility] Comment on above: Performed By: #### 2 [id number] #### [facility] [address] [place] [address] EMG 2 Extremitieson 03-08-20 EMG/ NCS BLE Mild right S1/S2 radiculopathy versus tibial motor neuropathy that is less likely [facility] NVC 9-10 Nerveson 03-08-2024 EMG/ NCS BLE Mild right S1/S2 radiculopathy versus tibial motor neuropathy that is less likely [facility] US Thyroidon 01-16-2024 US Thyroid Exam [...] DO Transcribed by: YAMINI Technologist: KELSI Merrill [facility] Consenton 11-12-2023 Consent [id number]#1.00TIFF Normal [facility] Consent [id number]#1.00TIFF Normal [facility] Family Medicine Office/Clini c Noteon 11-12-2023 [...] with voice recognition artificial intelligence software, specifically [employer], [employer] and or [employer]. Substitutions may have occurred due to the inherent limitations of voice recognition and artificial intelligence software. Documentation services were performed after patient or guardian consented to allow [employer] to record this visit. DEX optimization specialist Perlita Dominguez and provider reviewed before [...] per year, 06/24/2023 Employment/School Employed, Work/School description: [employer] 02/01/2019 Home/Environment Lives with Children, Spouse., 02/01/2019 Substance Abuse - Denies Substance Abuse, 12/11/2012 Household substance abuse concerns: No., 06/24/2023 Tobacco - Denies Tobacco Use, 12/11/2012 Never (less than 100 in lifetime) Tobacco Use:. Never Smokeless Tobacco Use:. Household tobacco concerns: No., 11/12/2023 Family History Depression: Mother. Hepatitis C: Sister. Immunizations Vaccine Date Status Comments influenza viru (more content not included)... Normal [facility] Comment on above: Result Comment: Elec tronically Signed By: Matt Bass MD\.br\Date and Time Signed: 11/12/23 14:07 EDT\.br\Electronically Co-Signed By: Tyrone Garcia\.br\Date and Time Co-Signed: 11/12/23 13:40 EDT T3 Freeon 10-22-2023 Free T3 [Mass/Vol] 2.9 pg/mL Invalid Interpretation Code 2.0-4.4 [facility] Comment on above: Result Comment: Perf ormed at: [facility] [address] [id number] PhD Mahnaz Conklin Performed By: #### 2 [id number], [id number], [id number] ####[facility] [address] [place] [address] CHEMISTRYOrdered By: SYSTEM SYSTEM on 10-21-2023 Free T4 [Mass/Vol] 0.65 ng/dL Normal 0.58 - 1.64 ng/dL Remisol Chem TSH Qn 4.41 m[IU]/L Normal 0.34 - 5.60 mcIU/mL Remisol Chem Consent for Treatmenton 09-23 Consent for Treatment [id number]#1.00TIFF Normal [facility] Free T4on 10-21-2023 Free T4 [Mass/Vol] 0.65 ng/dL Normal 0.58-1.64 [facility] Comment on above: Performed By: #### 2 497128, [id number], [id number] ####[facility] [address] [place] [address] Physician Orderon 10-21-2023 Physician Order [id number]#1.00TIFF Normal [facility] TSHon 10-21-2023 TSH Qn 4.41 m[IU]/L Normal 0.34-5.60 [facility] Comment on above: Performed By: #### 2 494997, [id number], [id number] ####[facility] [address] [place] [address] Ambulatory Visit Summaryon 0 10-07-2023 Ambulatory Visit [...] urinary discomfort for bladder symptoms Pickup at [facility] Unchanged baclofen (baclofen 10 mg Tab) See [...] physician if questions or concerns Pharmacy Information [facility]: [address] [phone] Allergies Latex Tape (Rash) Problems Ongoing - [...] a (more content not included)... Normal [facility] Family Medicine Office/Clini c Noteon 10-07-2023 [...] two weeks, she has not utilized any ozhi-nyz-uouvzny or old antibiotics, nor has she utilized [...] week. She is seeing Dr. Mcghee in [place] for her thyroid. She has been trying [...] Urnls Dip Stick Auto w/o Microscopy POC [id number] 2. Thyroiditis, subacute (E06.1: Subacute thyroiditis) Continue following with Dr. Mcghee in [place] for management of the methimazole. 3. Lumbar [...] symptoms, # 30 tab(s), Refills(s) 0, Pharmacy: [facility], 168, cm, 10/07/23 10:32:00 EDT, Height/Length Dosing, 61, kg, 10/07/23 10:32:00 EDT, Weight Dosing Portions of this record may have been created with voice recognition artificial intelligence software, specifically [employer], [employer] and or [employer]. Substitutions may have occurred due to the inherent limitations of voice recognition and artificial intelligence software. Follow-up With When Contact Information Nancy MCKNIGHT MD, [facility] Only if needed Additional Instructions: [...] Anterior lumba (more content not included)... Normal [facility] Comment on above: Result Comment: Elec tronically Signed By: Nancy MCKNIGHT MD\.br\Date and Time Signed: 10/07/23 10:56 EDT [...] this condition includes: ? Antibiotic medicine. ? Bppi-uss-aurwuev medicines to treat discomfort. ? Drinking enough [...] these instructions at home: Medicines ? Take gwfv-yfs-qtphebt and prescription medicines only as told by [...] Document Revie (more content not included)... Normal [facility] T3 Freeon 09-13-2023 Free T3 [Mass/Vol] 1.5 pg/mL Low 2.0-4.4 [facility] Comment on above: Result Comment: Perf ormed at: [facility] [id number] [place], [place] [id number] PhD Mahnaz Conklin Performed By: #### 2 131135, [id number], 8638904, 7265562, [id number] ####[address] [place] [address] Thyrotropin Receptor Antibod y, Serumon 09-13-2023 TSH receptor Ab Qn (S) <1.10 Invalid Interpretation Code 0.00-1.75 [facility] Comment on above: Result Comment: Perf ormed at: [facility] [address] [id number] MD Enrico Dean Performed By: #### 2 398349, [id number], 0548157, 0286972, 4298525 ####[facility] [address] [place] [address] CHEMISTRYOrdered By: SYSTEM SYSTEM on 09-10-2023 Albumin [...] for Treatmenton 08-22 Consent for Treatment [id number]#1.00TIFF Normal [facility] Free T4on 09-10-2023 Free T4 [Mass/Vol] ng/dL Low 0.58-1.64 [facility] Comment on above: Performed By: #### 2 789569, [id number], 1645694, 3304023, 0820889 ####[facility] [address] [place] [address] Hep Func Panelon 09-10-2023 Albumin [Mass/Vol] 4.2 g/dL Normal 3.3-5.0 [facility] Comment on above: Performed By: #### 2 765904, [id number], 7922618, 8803435, 5863764 ####[facility] [address] [place] [address] Albumin/Globulin (S) [Mass conc ratio] 1.4 Normal 1.1-2.2 [facility] Comment on above: Performed By: #### 2 601483, [id number], 0511343, 0489970, 6454953 ####[address] [place] [address] ALP [Catalytic activity/Vol] 66 Int._Unit/L Normal 21-98 [facility] Comment on above: Performed By: #### 2 443470, [id number], 1271735, 2472366, 8515437 ####[facility] [address] [place] [address] ALT No additional P-5'-P [Catalytic activity/Vol] 14 Int._Unit/L Normal 6-46 [facility] Comment on above: Performed By: #### 2 571370, [id number], 8754589, 5168081, 5241306 ####[facility] [address] [place] [address] AST [Catalytic activity/Vol] 22 Int._Unit/L Normal 5-43 [facility] Comment on above: Performed By: #### 2 268418, [id number], 2068370, 9889645, 9638865 ####[facility] [address] [place] [address] Bilirubin [Mass/Vol] 0.5 mg/dL Normal 0.0-1.1 [facility] Comment on above: Performed By: #### 2 205635, [id number], 3206308, 2882812, 5461499 ####[facility] [address] [place] [address] Bilirubin.direct [Mass/Vol] 0.1 mg/dL Normal 0.0-0.4 [facility] Comment on above: Performed By: #### 2 476124, [id number], 0463666, 3975810, 4783302 ####[address] [place] [address] Bilirubin.indirect [Mass or moles/Vol] 0.4 mg/dL Normal 0.1-0.9 [facility] Comment on above: Performed By: #### 2 940200, [id number], 3630031, 9094630, 9521956 ####[address] [address] Globulin (S) [Mass/Vol] 3.0 g/dL Normal 1.4-4.0 [facility] Comment on above: Performed By: #### 2 167228, [id number], 1153978, 4436427, 5462387 ####[address] [address] Protein [Mass/Vol] 7.2 g/dL Normal 6.0-7.8 [facility] Comment on above: Performed By: #### 2 751632, [id number], 4503264, 0886250, 5119149 ####[address] [place] [address] Physician Orderon 09-10-2023 Physician Order [id number]#1.00TIFF Normal [facility] TSHon 09-10-2023 TSH Qn 68.80 m[IU]/L High 0.34-5.60 [facility] Comment on above: Performed By: #### 2 812270, [id number], 7582949, 1034920, 9038822 ####[address] [place] [address] Consultation Noteon 08-12-19 Consultation Note [id number]#1.00TIFF Normal [facility] Insurance Correspondenceon 0 08-05-2023 Insurance Correspondence [id number]#1.00TIFF Normal [facility] Consultation Noteon 08-04-19 Consultation Note [id number]#1.00TIFF Normal [facility] .Thyroglobulin by RIAon 07-24 Thyroglobulin [Mass/Vol] 159 ng/mL High [facility] Comment on above: Result Comment: Conf irmed by dilution. This test was developed and its performance characteristics determined by [employer]. It has not been cleared or approved [...] quantitation limit is 2.0 ng/mL. Performed at: [facility] [address] [place] [id number] MD Yadiel Cornell Performed By: #### 7 [id number], 1458965, 15314132, 2974649, [id number], [id number] ####[facility] [address] [place] [address] T3 Reverseon 08-02-2023 T3.reverse [Mass/Vol] 31.2 ng/dL [facility] 9.2-24.1 [facility] Comment on above: Result Comment: This test was developed and its performance characteristics determined by [employer]. It has not been cleared or approved by the Food and Drug Administration. Performed at: [address] [id number] MD Enrico Dean Performed By: #### 7 [id number], 8553965, 05220257, 9552149, [id number], [id number] ####[facility] [address] [place] [address] TgAb+Thyroglobulinon 024 Thyroglobulin Ab Qn 2.7 International_Unit /mL High 0.0-0.9 [facility] Comment on above: Result Comment: Thyr oglobulin Antibody measured by [employer] Performed at: [address] [id number] PhD Mahnaz Conklin Performed By: #### 7 [id number], 2782523, 33935327, 9124593, [id number], [id number] ####[facility] [address] [place] [address] Thyroid Perox.tpo Abon 08-02 TPO Ab Qn [IU]/mL Invalid Interpretation Code 0-34 [facility] Comment on above: Result Comment: Perf ormed at: [facility] [address] [place] [id number] PhD Mahnaz Conklin Performed By: #### 7 [id number], 5179236, 76171766, 9005334, [id number], [id number] ####[facility] [address] [place] [address] Family Medicine Office/Clini c Noteon 07-29-2023 Family [...] and imagi (more content not included)... Normal [facility] Comment on above: Result Comment: Elec tronically Signed By: Matt Bass MD\.br\Date and Time Signed: 07/29/23 18:15 EST\.br\Electronically Co-Signed By: Jaja Alex\.br\Date and Time Co-Signed: 07/24/23 18:17 EST Interdisciplinary Note - Soc ial Workeron 07-28-2023 Interdisciplinary Note - Dish Person This SW made a tc to patient [...] needs arise. SW will remain available. Normal [facility] Ambulatory Visit Summaryon 0 07-24-2023 Ambulatory Visit Summary JESSICA GRIFFITHS :1985 Visit Date:07/24/2023 Ambulatory Visit Instructions Your Diagnosis Palpitations Nodule of left lobe of thyroid gland Abnormal thyroid stimulating hormone level Thyroiditis, subacute Heart murmur BMI 21.0-21.9, adult Non-smoker Your Care Team Attending Physician - Matt Bass MD Primary Care Physician - Nancy [...] hormone level, Print Label By Order Location, [id number]\.br\ Echo Transthoracic Complete, 07/24/23, Routine, Order for future visit, Transport Mode: Ambulatory, Reason: Other (please specify), Reason: murmur, Heart murmur, pp_set_radiology_ subspecialty, [facility], [place] - [place]\.br\ Medications\.br\ What How Much When Instructions\.br\ New propranolol (propranolol 10 mg Tab) 1 Tablets By Mouth Once Pickup at [facility]\.br\ Unchanged baclofen (baclofen 10 [...] if questions or concerns \.br\ Pharmacy Information\.br\ [facility]: [address] [phone]\.br\ Allergies\.br\ Latex\.br\ Tape (Rash)\.br\ Problems\.br\ Ongoing - [...] for choosing us for your care.\.br\ \.br\ [facility] Ambulatory Visit Summaryon 0 07-18-2023 Ambulatory Visit Summary JORDYN GRIFFITHSRA Holt :1985 Visit Date:07/18/2023 Ambulatory Visit Instructions [...] You smoke (more content not included)... Normal [facility] CHEMISTRYOrdered By: SYSTEM SYSTEM on 07-18-2023 Free T4 [Mass/Vol] 2.22 ng/dL High 0.58 - 1.64 ng/dL Remisol Chem TSH Qn 0.01 m[IU]/L Low 0.34 - 5.60 mcIU/mL Remisol Chem Clipboard Summaryon 07-18-19 24 Clipboard Summary {[id number]-gi-[id number]-15-1c -[id number]-f8-9a-b9-6d -cb-25-c2-ac}XML Normal [facility] Consent for Treatmenton 06-24 Consent for Treatment [id number]#1.00TIFF Normal [facility] Family Medicine Office/Clini c Noteon [...] and had a biopsy on Friday at [facility], carried out by the radiology department interventional [...] uptake versus the background. She asked Dr Matt Jeronimoif he could order a thyroid antibody [...] the pathology report on her phone from [facility] which indicates benign cellularity although admittedly [...] Dysphagia, unspecified) (more content not included)... Normal [facility] Comment on above: Result Comment: Elec tronically Signed By: JUAN LUIS REES, Nancy\.tarah\Date and Time Signed: 07/18/23 19:02 EST Free T4on 07-18-2023 Free T4 [Mass/Vol] 2.22 ng/dL High 0.58-1.64 [facility] Comment on above: Performed By: #### 7 [id number], 1990281, 23082777, 0952034, 021945327, 69914352 #### [facility] [address] [place] [address] Patient Educationon 07-18-19 Patient Education Endocrinology Hyperthyroidism [...] Follow these instructions at home: ? Take kcgp-vqh-nqbqwmo and prescription medicines only as told by [...] Where to find more information ? National [place] of Diabetes and Digestive and Kidney Diseases: [...] as u (more content not included)... Normal [facility] TSHon 07-18-2023 TSH Qn 0.01 m[IU]/L Low 0.34-5.60 [facility] Comment on above: Performed By: #### 7 [id number], 0689322, 10015599, 2076929, 308129053, 34243972 #### [facility] [address] [place] [address] [facility] 07-14-2023 L Specimen: Received: 07/15/23 Status: DENA Req Num: [id number] Spec Type: Cytology Subm Dr: MARTA PUENTE MD Tissues: A FNA SLIDES NOPATH (LT THYROID NOD) Procedures: Cyto Int and Re, PAPSTN/5 Age/ Patient Sex Location Account Attending Physician Jessica Griffiths 37/F [place]E[facility] [id number] MARTA PUENTE MD SPEC NUM: [id number] RECD: 07/15/23 STATUS: DENA REQ NUM: [id number] KANCHAN: 07/14/23- SUBM DR: MARTA PUENTE MD ENTERED: 07/15/[address]: RcihieLab SPEC TYPE: Cytology DEPT: ROYER ENGEL ENTERED BY: [id number] RECV BY: [id number] ORDERED: Cyto Int and Re, PAPSTN/5 ORDERED: Cyto Int and Re, PAPSTN/5 Pathological Diagnosis Left thyroid mid lobe nodule, FNA cytology: - Adequate but slightly limited for assessment - The [place] system is category 2: Benign - A [...] [id number] Received: 07/15/23 Status: DENA Sifuentes Num: [id number] Spec Type: Cytology Subm Dr: MARTA PUENTE MD Tissues: A FNA SLIDES NOPATH (LT THYROID NOD) Procedures: Cyto Int and Re, PAPSTN/5 -- Patient: Jessica Griffiths [id number] (Continued) -- Specimen: [id number] Received: 07/15/23 (Continued) Signed (signatu re on file) Alfonso Correa MD 07/16/23 112 -- Specimen: [id number] Received: 07/15/23 Status: DENA Sifuentes Num: [id number] Spec Type: Cytology Subm Dr: MARTA PUENTE MD Tissues: A FNA SLIDES NOPATH (LT THYROID NOD) Procedures: Cyto Int and Re, PAPSTN/5 -- Patient: Jessica Griffiths [id number] (Continued) -- Specimen: [id number] Received: 07/15/23 (Continued) CPT Codes 68570 -- -- Specimen: [id number] Received: 07/15/23130 Status: DENA Sifuentes Num: [id number] Spec Type: Cytology Subm Dr: MARTA PUENTE MD Tissues: A FNA SLIDES NOPATH (LT THYROID NOD) Procedures: Cyto Int and Re, PAPSTN/5 -- Patient: Jessica Griffiths [id number] (Continued) -- Signed (signatu re on file) Alfonso Correa MD 07/16/[address] [facility] [place] Thyroid Imaging w/ Gloria ortega 07-09-2023 NM Thyroid Imaging w/ Uptk [...] on the thyroid scan images. Ordering Provider: Matt Bass FINAL REPORT Dictated: 07/09/2023 3:40 pm Armen Royal M.D. Signed (Electronic Signature): 07/09/2023 3:40 pm Signed by: Armen Royal M.D. Transcribed by: YAMINI Technologist: MALCOLM Technical Comments 2 Hour Uptake (Normal 1 - 9%): 1.8 24 Hour Uptake (Normal 10 - 30%): 0.8 Radiopharmaceutica l Administration Dose (microcuries I-123 Diagnostic Capsule): 203.5 Imaging Post Administration (hrs): 24 Normal [facility] CHEMISTRYOrdered By: SYSTEM SYSTEM on [...] for Treatmenton 06-23 Consent for Treatment [id number]#1.00TIFF Normal [facility] Lipid Panelon 07-08-2023 Cholesterol [Mass/Vol] 145 mg/dL Normal 120-200 [facility] Comment on above: Performed By: #### 2 463259 ####[facility] [address] [place] [address] Cholesterol in HDL [Mass/Vol] 62 mg/dL Invalid Interpretation Code [facility] Comment on above: Result Comment: '>= 60 LOW RISK' '<= 40 HIGH RISK' Performed By: #### 2 827661 ####[facility] [address] [place] [address] Cholesterol in LDL [Mass/Vol] 76 mg/dL Normal <=129 [facility] Comment on above: Performed By: #### 2 665860 ####[facility] [address] [place] [address] Cholesterol in VLDL [Mass/Vol] 10 mg/dL Normal 7-40 [facility] Comment on above: Performed By: #### 2 937600 ####[facility] [address] [place] [address] Triglyceride [Mass/Vol] 52 mg/dL Normal <=149 [facility] Comment on above: Performed By: #### 2 818386 ####[facility] [address] [place] [address] UA With Cult Reflexon 2023 Bacteria LM Ql (Urine sed) 1+ /HPF Abnormal Trace [facility] Comment on above: Performed By: #### 1 0443159 ####[facility] [address] [place] [address] Bilirubin Ql (U) Negative Normal Negative [facility] Comment on above: Performed By: #### 1 4920843 ####[facility] [address] [place] [address] Clarity (U) CLEAR Normal Clear [facility] Comment on above: Performed By: #### 1 6442848 ####[address] [address] Color (U) YELLOW Normal Yellow [facility] Comment on above: Performed By: #### 1 2613970 ####[address] [address] Epithelial cells.squamous LM.HPF (Urine sed) [#/Area] /[HPF] Normal 0-2 [facility] Comment on above: Performed By: #### 1 9208332 ####[address] [address] Glucose Test strip (U) [Mass/Vol] Negative Normal Negative [facility] Comment on above: Performed By: #### 1 4065948 ####[address] [address] Hemoglobin Ql (U) Negative Normal Negative [facility] Comment on above: Performed By: #### 1 1221291 ####[address] [address] Ketones (U) [Mass/Vol] TRACE Abnormal Negative [facility] Comment on above: Performed By: #### 1 0793635 ####[address] [address] [place].plasma/Lithi um.RBC (Bld) [Mass ratio] 0-3 Normal 0-3 [facility] Comment on above: Performed By: #### 1 4256584 ####[address] [address] Mucus Ql (Urine sed) 2+ Normal [facility] Comment on above: Performed By: #### 1 5138682 ####[address] [address] Nitrite Ql (U) Negative Normal Negative [facility] Comment on above: Performed By: #### 1 8029603 ####[address] [address] pH (U) 6.5 [pH] Invalid Interpretation Code 5.0-9.0 [facility] Comment on above: Performed By: #### 1 3791190 ####[facility] [address] [place] [address] Protein (U) [Mass/Vol] Negative Normal Negative [facility] Comment on above: Performed By: #### 1 3569255 ####[address] [address] Specific gravity (U) [Rel density] 1.015 Invalid Interpretation Code 1.005-1.030 [facility] Comment on above: Performed By: #### 1 2654875 ####[address] [address] Type of Urine collection method Clean Catch Normal [facility] Comment on above: Performed By: #### 1 3905024 ####[address] [address] Urobilinogen Qn (U) 0.2 {Dylan'U}/dL Normal 0.0-1.0 [facility] Comment on above: Performed By: #### 1 4256730 ####[address] [address] WBC Auto Ql (U) Negative Normal Negative [facility] Comment on above: Performed By: #### 1 8019508 ####[address] [address] WBC LM.HPF (Urine sed) [#/Area] 0-5 Normal 0-5 [facility] Comment on above: Performed By: #### 1 3248925 ####[address] [address] URINALYSISOrdered By: Jennifer morris on 07-08-2023 Bacteria [...] sed) [#/Area] /[HPF] Normal 0-2/HPF FT UA Auto SS Glucose Test strip (U) [Mass/Vol] Negative (07/08/23 7:42 AM) Normal Negative FT UA Auto SS Hemoglobin Ql (U) Negative (07/08/23 7:42 AM) Normal Negative FT UA Auto SS Ketones (U) [Mass/Vol] Trace *ABN* (07/08/23 7:42 AM) Invalid Interpretation Code Negative [facility] [place] [place] UA Auto SS [place].plasma/Lithi um.RBC (Bld) [Mass ratio] 0-3 /HPF Normal 0-3/HPF FT UA Auto SS Mucus Ql (Urine sed) 2+ (07/08/23 7:42 AM) Normal [facility] [place] [place] UA Auto SS Nitrite Ql (U) Negative (07/08/23 7:42 AM) Normal Negative [facility] [place] [place] UA Auto SS pH (U) 6.5 *NA* (07/08/23 7:42 AM) Invalid Interpretation Code 5.0 - 9.0 [facility] [place] [place] UA Auto SS Protein (U) [Mass/Vol] Negative (07/08/23 7:42 AM) Normal Negative [facility] [place] [place] UA Auto SS Specific gravity (U) [Rel density] 1.015 *NA* (07/08/23 7:42 AM) Invalid Interpretation Code 1.005 - 1.030 [facility] [place] [place] UA Auto SS UA Spec Desc Clean Catch (07/08/23 7:42 AM) Normal [facility] [place] [place] UA Auto SS Urobilinogen Qn (U) 0.8104466 {Dylan'U}/dL Normal 0.0 - 1.0 EU/dL [facility] [place] [place] UA Auto SS WBC Auto Ql (U) Negative (07/08/23 7:42 AM) Normal Negative [facility] [place] [place] UA Auto SS WBC LM.HPF (Urine sed) [#/Area] 0-5 /HPF Normal 0-5/HPF FT UA Auto SS Insurance Correspondenceon 0 07-01-2023 Insurance Correspondence [id number]#1.00TIFF Normal [facility] Physician Referralon 024 Physician Referral [id number]#1.00TIFF Normal [facility] Consent for Treatmenton Consent for Treatment [id number]#1.00TIFF Normal [facility] US Thyroidon 06-27-2023 US Thyroid [...] MD Transcribed by: YAMINI Technologist: FAISAL Normal [facility] Family Medicine Office/Clini c Noteon 06-24-2023 [...] discuss her thyroid. She was seen in on [facility] of [facility] care on 06/20/2023 for feeling a lump [...] with voice recognition artificial intelligence software, specifically [employer], [employer] and or [employer]. Substitutions may have occurred due to the inherent limitations of voice recognition and artificial intelligence software. Documentation services were performed after patient or guardian consented to allow [employer] to record this visit. D (more content not included)... Normal [facility] Comment on above: Result Comment: Elec tronically Signed By: Matt Bass MD\.br\Date and Time Signed: 06/24/23 18:25 EST\.br\Electronically Co-Signed By: Jaja Alex\.br\Date and Time Co-Signed: 06/24/23 18:04 EST T3 Freeon 06-22-2023 Free T3 [Mass/Vol] 4.2 pg/mL Invalid Interpretation Code 2.0-4.4 [facility] Comment on above: Result Comment: Perf ormed at: [facility] [address] [id number] PhD Mahnaz Conklin Performed By: #### 2 375144, 2031095, 5357982, 39262643 ####[facility] [address] [place] [address] Auto Diffon 06-21-2023 Basophils/100 WBC (Bld) 0.3 % Normal 0.0-2.0 [facility] Comment on above: Order Comment: Order Added by Discern Expert. Performed By: #### 1 8290183, 6258726, 1815563, 1178295, 6319168 #### [facility] [address] [place] [address] Basophils/Leukocytes Auto (Bld) [Pure # fraction] 0.0 E9/L Normal 0.0-0.2 [facility] Comment on above: Order Comment: Order Added by Discern Expert. Performed By: #### 1 7441115, 7027977, 6707686, 1275580, 7432928 #### [facility] [address] [place] [address] Eosinophils/100 WBC (Bld) 0.6 % Normal 0.0-8.0 [facility] Comment on above: Order Comment: Order Added by Discern Expert. Performed By: #### 1 5611577, 2771869, 5394809, 6526585, 0026495 #### [facility] [address] [place] [address] Eosinophils/Leukocyt es Auto (Bld) [Pure # fraction] 0.0 E9/L Normal 0.0-0.5 [facility] Comment on above: Order Comment: Order Added by Discern Expert. Performed By: #### 1 8046751, 9442921, 4332824, 1092558, 9786748 #### [facility] [address] [place] [address] Lymphocytes/100 WBC (Bld) 20.6 % Normal 14.0-50.0 [facility] Comment on above: Order Comment: Order Added by Jay Expert. Performed By: #### 1 2243304, 4199102, 4435176, 3118723, 8310177 #### [facility] [address] [place] [address] Lymphocytes/Leukocyt es Auto (Bld) [Pure # fraction] 1.7 E9/L Normal 1.0-4.0 [facility] Comment on above: Order Comment: Order Added by Jay Expert. Performed By: #### 1 0544268, 2187267, 4205004, 5786222, 6009237 #### [facility] [address] [place] [address] Monocytes/100 WBC (Bld) 6.6 % Normal 4.0-14.0 [facility] Comment on above: Order Comment: Order Added by Jay Expert. Performed By: #### 1 3688142, 2672344, 0499448, 8045149, 9953555 #### [facility] [address] [place] [address] Monocytes/Leukocytes Auto (Bld) [Pure # fraction] 0.5 E9/L Normal 0.2-1.0 [facility] Comment on above: Order Comment: Order Added by Jay Expert. Performed By: #### 1 8815933, 9774781, 3380367, 7968510, 5805430 #### [facility] [address] [place] [address] Neutrophils/100 WBC (Bld) 71.9 % Normal 36.0-75.0 [facility] Comment on above: Order Comment: Order Added by Discern Expert. Performed By: #### 1 8259222, 0396563, 5073270, 7170728, 2541121 #### [facility] [address] [place] [address] Neutrophils/Leukocyt es Auto (Bld) [Pure # fraction] 5.8 E9/L Normal 2.0-7.5 [facility] Comment on above: Order Comment: Order Added by Discern Expert. Performed By: #### 1 7348050, 9480715, 2826062, 5978891, 7448656 #### [facility] [address] [place] [address] CBC w/ Auto Diffon Erythrocyte distribution width (RBC) [Ratio] 12.6 % Normal 10.9-14.2 [facility] Comment on above: Performed By: #### 1 2582192, 9919259, 5294637, 6834915, 5205978 #### [facility] [address] [place] [address] Hematocrit (Bld) [Volume fraction] 37.8 % Normal 34.0-46.0 [facility] Comment on above: Performed By: #### 1 8464858, 5575952, 6439052, 9683254, 6398024 #### [facility] [address] [place] [address] Hemoglobin (Bld) [Mass/Vol] 12.7 g/dL Normal 12.0-16.0 [facility] Comment on above: Performed By: #### 1 7378266, 6992200, 7809741, 1764005, 6896365 #### [facility] [address] [place] [address] MCH (RBC) [Entitic mass] 32.2 pg Normal 27.0-34.0 [facility] Comment on above: Performed By: #### 1 5035262, 6062821, 3436135, 8721530, 6681991 #### [facility] [address] [place] [address] MCHC (RBC) [Mass/Vol] 33.8 g/dL Normal 31.4-36.0 [facility] Comment on above: Performed By: #### 1 2539111, 4741539, 4806859, 0683316, 1058431 #### [facility] [address] [place] [address] MCV (RBC) [Entitic vol] 95.5 fL Normal 80.0-100.0 [facility] Comment on above: Performed By: #### 1 4764223, 0022770, 4725306, 5309345, 9142354 #### [facility] [address] [place] [address] Platelet mean volume (Bld) [Entitic vol] 8.5 fL Normal 6.4-10.8 [facility] Comment on above: Performed By: #### 1 7937063, 9957980, 0948682, 5758459, 1394501 #### [facility] [address] [place] [address] Platelets (Bld) [#/Vol] 303.0 E9/L Normal 150.0-500.0 [facility] Comment on above: Performed By: #### 1 1184965, 9519926, 0837285, 7207151, 7411886 #### [facility] [address] [place] [address] RBC (Bld) [#/Vol] 4.0 E12/L Low 4.3-5.9 [facility] Comment on above: Performed By: #### 1 5149502, 5671213, 7662339, 8055520, 7345839 #### [facility] [address] [place] [address] WBC corrected for nucl RBC Auto (Bld) [#/Vol] 8.1 E9/L Normal 4.0-11.0 [facility] Comment on above: Performed By: #### 1 4435754, 7180471, 1660887, 3474409, 6064790 #### [facility] [address] [place] [address] CHEMISTRYOrdered By: SYSTEM SYSTEM on 06-21-2023 Albumin [...] 06-21-2023 Albumin [Mass/Vol] 3.8 g/dL Normal 3.3-5.0 [facility] Comment on above: Performed By: #### 1 4254612, 0598555, 2168837, 2049702, 4242026 #### [facility] [address] [place] [address] Albumin/Globulin [Mass ratio] 1.3 {ratio} Normal 1.1-2.2 [facility] Comment on above: Performed By: #### 1 5591431, 5478816, 2575316, 9361525, 2530429 #### [facility] [address] [place] [address] Alk Phos 83 Int._Unit/L Normal 21-98 [facility] Comment on above: Performed By: #### 1 5842926, 3714694, 4364483, 7055979, 8717479 #### [facility] [address] [place] [address] ALT 10 Int._Unit/L Normal 6-46 [facility] Comment on above: Performed By: #### 1 1607679, 8410663, 8598223, 8324607, 3453087 #### [facility] [address] [place] [address] Anion gap [Moles/Vol] 10 mmol/L Normal 6-16 [facility] Comment on above: Performed By: #### 1 3543044, 3525257, 6912292, 1223800, 6177091 #### [facility] [address] [place] [address] AST 15 Int._Unit/L Normal 5-43 [facility] Comment on above: Performed By: #### 1 0544177, 0142594, 4794694, 0612653, 8725297 #### [facility] [address] [place] [address] Bili Total 0.5 mg/dL Normal 0.0-1.1 [facility] Comment on above: Performed By: #### 1 5835198, 5679032, 4851023, 1817472, 5308608 #### [facility] [address] [place] [address] BUN/Creat Ratio 22 No Units High 10-20 [facility] Comment on above: Performed By: #### 1 5817633, 5882328, 6066959, 7185550, 7687460 #### [facility] [address] [place] [address] Calcium [Mass/Vol] 8.7 mg/dL Low 8.9-11.1 [facility] Comment on above: Performed By: #### 1 3022954, 8350041, 2221613, 9316586, 4443339 #### [facility] [address] [place] [address] Chloride [Moles/Vol] 103 mmol/L Normal 101-111 [facility] Comment on above: Performed By: #### 1 9939764, 4880955, 2838507, 9288584, 5248980 #### [facility] [address] [place] [address] CO2 [Moles/Vol] 29 mmol/L Normal 21-31 [facility] Comment on above: Performed By: #### 1 1066489, 5612872, 4187967, 8311311, 0728953 #### [facility] [address] [place] [address] Creatinine [Mass/Vol] 0.6 mg/dL Normal 0.5-1.3 [facility] Comment on above: Performed By: #### 1 6805598, 8994911, 6434606, 0223914, 2253759 #### [facility] [address] [place] [address] Globulin (S) [Mass/Vol] 3.0 g/dL Normal 1.4-4.0 [facility] Comment on above: Performed By: #### 1 1993362, 0487540, 4334070, 2304849, 9265589 #### [facility] [address] [place] [address] Glucose [Mass/Vol] 84 mg/dL Normal 55-199 [facility] Comment on above: Performed By: #### 1 1030877, 4345419, 7292407, 8064014, 2290981 #### [facility] [address] [place] [address] Potassium [Moles/Vol] 3.9 mmol/L Normal 3.5-5.3 [facility] Comment on above: Performed By: #### 1 1718410, 5675763, 7767668, 5109800, 4312678 #### [facility] [address] [place] [address] Protein [Mass/Vol] 6.8 g/dL Normal 6.0-7.8 [facility] Comment on above: Performed By: #### 1 6606373, 2981410, 9607138, 2877116, 6759978 #### [facility] [address] [place] [address] Sodium [Moles/Vol] 138 mmol/L Normal 135-145 [facility] Comment on above: Performed By: #### 1 7670335, 7641865, 7433991, 7939158, 1355421 #### [facility] [address] [place] [address] Urea nitrogen [Mass/Vol] 13 mg/dL Normal 5-21 [facility] Comment on above: Performed By: #### 1 7574693, 2345679, 4178202, 9430621, 1570526 #### [facility] [address] [place] [address] Consent for Treatmenton 05-25 Consent for Treatment [id number]#1.00TIFF Normal [facility] Free T4on 06-21-2023 Free T4 [Mass/Vol] 1.37 ng/dL Normal 0.58-1.64 [facility] Comment on above: Performed By: #### 1 7303292, 2353841, 8350076, 6098151, 0461980 #### [facility] [address] [place] [address] HEMATOLOGYOrdered By: SYSTEM SYSTEM on 06-21-2023 Basophils/100 [...] HemeAutoSS Physician Orderon 06-21-2023 Physician Order [id number]#1.00TIFF Normal [facility] T3 Uptakeon 06-21-2023 T3 Uptake 46.6 % Normal 32.0-48.4 [facility] Comment on above: Performed By: #### 2 552722, 3989100, 4221375, [id number] ####[facility] [address] [place] [address] T4 Totalon 06-21-2023 T4 18.8 microgram/dL High 4.6-9.1 [facility] Comment on above: Performed By: #### 2 [id number] ####[facility] [address] [place] [address] TSHon 06-21-2023 TSH Qn 0.07 m[IU]/L Low 0.34-5.60 [facility] Comment on above: Performed By: #### 2 [id number] ####[facility] [address] [place] [address] eGFRon 06-21-2023 GFR/1.73 sq M.predicted among non-blacks MDRD (S/P/Bld) [Vol rate/Area] mL/min/{1.73_m2} Normal >=59 [facility] Comment on above: Order Comment: Order added by Discern Expert. Performed By: #### 1 [id number] #### [facility] [address] [place] [address] Family Medicine Office/Clini c Noteon 06-20-2023 Family [...] with voice recognition software. Occasional wrong-word or ?abxti-o-iyoz? substitutions may have occurred due to the [...] know she has been working with her [employer]ANDW[employer] PEDDLER in regards to blood test and lab [...] lost some weight. But again is seeing [employer] PEDDLER in regards to these fluctuations denies any [...] with prim (more content not included)... Normal [facility] Comment on above: Result Comment: [...] weeks. Home care treatment may include: ? Gxln-uus-qgisqth pain relievers. ? A warm, moist cloth placed over the ear. Severe cases may require a procedure to insert tubes in the ears (tympanostomy tubes) to drain the fluid. Follow these instructions at home: ? Take ghfz-rfd-wtzxpbc and prescription medicines only as told by [...] provider. Document Revised: 10/04/2021 Document Reviewed: 10/04/2021 [employer] Patient Education ? 2022 [employer]. Endocrinology Thyroid Nodule A thyroid nodule is [...] hyperthy (more content not included)... Normal [facility] MRI Spine Cervical w/o Contr elvira [...] YAMINI Technologist: CAPRI Technical Comments None Normal [facility] Consent for Treatmenton 05-23 Consent for Treatment [id number] Normal [facility] RAD - MRI Screening Formon 1 08-10-2022 RAD - MRI Screening Form [id number] Normal [facility] Physician Orderon 06-03-2023 Physician Order [id number] Normal [facility] CHEMISTRYOrdered By: SYSTEM SYSTEM on [...] developed and its performance characteristics determined by [employer]. Nucleic acid amplification tests include RT-PCR and [...] result in this assay. Performed at: [address] [id number] PhD Mahnaz Conklin Vital Signs Date Time Vital Sign Value Performing Clinician Facility 08-02-2024 11:32-0500 Body mass index (BMI) [Ratio] 21.47 kg/m2 Kraig Goodman MD Work Phone: [facility] 08-02-2024 11:32-0500 Body weight 60.33 kg Kraig Goodman MD Work Phone: [facility] 08-02-2024 11:32-0500 Diastolic blood pressure 68 mm[Hg] Kraig Goodman MD Work Phone: [facility] 08-02-2024 11:32-0500 Systolic blood pressure 102 mm[Hg] Kraig Goodman MD Work Phone: [facility] 04-06-2024 08:21-0400 Body height 167.6 cm Petra Gillmor [employer] Work Phone: [facility] 04-06-2024 08:21-0400 Body mass index (BMI) [Ratio] 21.63 kg/m2 Petra Gillmor [employer] Work Phone: [facility] 04-06-2024 08:21-0400 Body weight 60.78 kg Petra Gillmor [employer] Work Phone: [facility] 04-06-2024 08:21-0400 Diastolic blood pressure 76 mm[Hg] Petra Gillmor [employer] Work Phone: [facility] 04-06-2024 08:21-0400 Heart rate 76 /min Petra Gillmor [employer] Work Phone: [facility] 04-06-2024 08:21-0400 SaO2% (BldA) [Mass fraction] 98 % Petra Gillmor [employer] Work Phone: [facility] 04-06-2024 08:21-0400 Systolic blood pressure 118 mm[Hg] Petra Gillmor [employer] Work Phone: [facility] 03-01-2024 08:30-0400 Body height 167.6 cm Marta Puente MD Work Phone: [facility] 03-01-2024 08:30-0400 Body mass index (BMI) [Ratio] 21.79 kg/m2 Marta Puente MD Work Phone: [facility] 03-01-2024 08:30-0400 Body weight 61.24 kg Marta Puente MD Work Phone: [facility] 03-01-2024 08:30-0400 Diastolic blood pressure 69 mm[Hg] Marta Puente MD Work Phone: [facility] 03-01-2024 08:30-0400 Systolic blood pressure 100 mm[Hg] Marta Puente MD Work Phone: [facility] 11-12-2023 12:45-0400 Blood Pressure Location Matt Gudimella [facility] 11-12-2023 12:45-0400 Diastolic blood pressure 76 mm[Hg] Matt Gudimella [facility] 11-12-2023 12:45-0400 Heart rate 72 /min Matt Gudimella [facility] 11-12-2023 12:45-0400 SaO2% (BldA) [Mass fraction] 99 % Matt Gudimella [facility] 11-12-2023 12:45-0400 Systolic blood pressure 116 mm[Hg] Matt Gudimella [facility] 10-07-2023 10:22-0400 Blood Pressure Location Nancy MCKNIGHT [facility] 10-07-2023 10:22-0400 Body temperature 97.88 [degF] Nancy BROWN [facility] 10-07-2023 10:22-0400 Diastolic blood pressure 76 mm[Hg] Rosendoopher BROWN [facility] 10-07-2023 10:22-0400 Heart rate 66 /min Nancy BROWN [facility] 10-07-2023 10:22-0400 Respiratory rate 16 /min Nancy MCKNIGHT [facility] 10-07-2023 10:22-0400 SaO2% (BldA) [Mass fraction] 100 % Nancy MCKNIGHT [facility] 10-07-2023 10:22-0400 Systolic blood pressure 116 mm[Hg] Nancy MCKNIGHT [facility] 08-04-2023 11:27-0500 Body height 167.6 cm Marta Puente MD Work Phone: [facility] 08-04-2023 11:27-0500 Body mass index (BMI) [Ratio] 21.14 kg/m2 Marta Puente MD Work Phone: [facility] 08-04-2023 11:27-0500 Body weight 59.42 kg Marta Puente MD Work Phone: [facility] 08-04-2023 11:27-0500 Diastolic blood pressure 81 mm[Hg] Marta Puente MD Work Phone: [facility] 08-04-2023 11:27-0500 Systolic blood pressure 111 mm[Hg] Marta Puente MD Work Phone: [facility] 07-24-2023 13:41-0500 Blood Pressure Location Matt Gudimella [facility] 07-24-2023 13:41-0500 Diastolic blood pressure 70 mm[Hg] Matt Gudimella [facility] 07-24-2023 13:41-0500 Heart rate 86 /min Matt Gudimella [facility] 07-24-2023 13:41-0500 SaO2% (BldA) [Mass fraction] 98 % Matt Gudimella [facility] 07-24-2023 13:41-0500 Systolic blood pressure 106 mm[Hg] Matt Gudimella [facility] 07-18-2023 16:16-0500 Blood Pressure Location Christeduardo MCKNIGHT [facility] 07-18-2023 16:16-0500 Diastolic blood pressure 60 mm[Hg] Christopher BROWN [facility] 07-18-2023 16:16-0500 Heart rate 92 /min Christopher BROWN [facility] 07-18-2023 16:16-0500 Respiratory rate 16 /min Christdeandraer BROWN [facility] 07-18-2023 16:16-0500 SaO2% (BldA) [Mass fraction] 98 % Christopher BROWN [facility] 07-18-2023 16:16-0500 Systolic blood pressure 90 mm[Hg] Christopher BROWN [facility] 06-24-2023 13:49-0500 Blood Pressure Location Matt Gudimella [facility] 06-24-2023 13:49-0500 Diastolic blood pressure 72 mm[Hg] Matt Gud[facility]ella [facility] 06-24-2023 13:49-0500 Heart rate 89 /min Matt Gudimella [facility] 06-24-2023 13:49-0500 SaO2% (BldA) [Mass fraction] 97 % Matt Gudimella [facility] 06-24-2023 13:49-0500 Systolic blood pressure 98 mm[Hg] Matt Bass [facility] 06-20-2023 18:43-0500 Blood Pressure Location Filiberto Cramer [facility] 06-20-2023 18:43-0500 Body temperature 98.06 [degF] Filiberto Cramer [facility] 06-20-2023 18:43-0500 Diastolic blood pressure 76 mm[Hg] Filiberto Cramer [facility] 06-20-2023 18:43-0500 Heart rate 96 /min Filiberto Cramer [facility] 06-20-2023 18:43-0500 SaO2% (BldA) [Mass fraction] 98 % Filiberto Cramer [facility] 06-20-2023 18:43-0500 Systolic blood pressure 122 mm[Hg] Filiberto Cramer [facility] 12-28-2021 11:20-0400 Body height 167.64 cm Ric Tinoco Other [employer] Other 12-28-2021 11:20-0400 Body mass index (BMI) [Ratio] 21.14 kg/m2 Ric Tinoco Other [employer] Other 12-28-2021 11:20-0400 Body weight 59.42 kg Ric Tinoco Other [employer] Other 04-17-2021 15:40-0400 Body height 167.64 cm Ric Tinoco Other [employer] Other 04-17-2021 15:40-0400 Body mass index (BMI) [Ratio] 21.14 kg/m2 Ric Tinoco Other [employer] Other 04-17-2021 15:40-0400 Body weight 59.42 kg Ric Tinoco Other [employer] Other 05-31-2020 15:50-0500 Body weight 63.96 kg [employer] [facility] [place] 05-31-2020 15:50-0500 BP Diastolic 79 mm[Hg] [facility] [place] 05-31-2020 15:50-0500 BP Systolic 107 mm[Hg] [employer] [facility] [place] 05-31-2020 15:50-0500 Pulse (Heart Rate) 67 /min [facility] [place] 05-31-2020 15:50-0500 Pulse Oximetry 100 % [facility] [place] 05-31-2020 15:50-0500 Respiratory Rate 20 /min [employer]- [place], [place] Encounters Encounter Date Encounter Type Care Provider Facility Start: 08-02-2024 End: 08-02-2024 Monae Goodman MD Work Phone: [facility] Start: 08-02-2024 End: 08-02-2024 Monae Goodman MD Work Phone: [facility] Start: 08-02-2024 End: 08-02-2024 Office outpatient visit 25 minutes Kraig Goodman MD Work Phone: [facility] Comment on above: Menopausal symptoms; Vaginal Pap smear; Screening for HPV (human papillomavirus); Other screening mammogram Start: 08-02-2024 End: 08-02-2024 ambulatory KRAIG GOODMAN Not Available Start: 08-02-2024 End: 08-02-2024 ambulatory Suzie Alegria MD Facility:[facility] Start: 07-21-2024 End: 07-21-2024 Telephone encounter Kraig Goodman MD Work Phone: [facility] Start: 05-22-2024 End: 05-24-2024 Refill Kraig Goodman MD Work Phone: [facility] Comment on above: Menopausal symptoms Start: 05-10-2024 End: 05-10-2024 ambulatory SUHAS MCGHEE Facility:[facility] [place] [place] Start: 05-10-2024 End: 05-10-2024 [facility] Start: 04-06-2024 End: 04-06-2024 ambulatory PETRA CALLE Not Available Start: 04-06-2024 End: 04-06-2024 Office outpatient visit 15 minutes Petra Calle NP Work Phone: [facility] Comment on above: Cervical radiculopat hy (Primary Dx); Lumbosacral radiculopathy; Paresthesias; Migraine without aura and without status migrainosus, not intractable (CMS/HCC); Myalgia Start: 04-05-2024 End: 04-05-2024 ambulatory Su[facility] Start: 03-29-2024 End: 03-29-2024 ambulatory Suzie Alegria MD [facility]: [facility] Start: 03-08-2024 End: 03-08-2024 Bamboo flowsheet Edwin Arambula DO Work Phone: [facility] Start: 03-08-2024 End: 03-08-2024 Bamboo flowsheet Edwin Arambula DO Work Phone: [facility] Start: 03-08-2024 End: 03-08-2024 Patient encounter procedure Edwin Arambula DO Work Phone: [facility] Comment on above: Lumbosacral radiculo shira (Primary Dx); Low back pain at multiple sites; Paresthesia; Sacral radiculopathy Start: 03-08-2024 End: 03-08-2024 ambulatory EDWIN ARAMBULA Not Available Start: 03-01-2024 End: 03-01-2024 Bamboo flowsheet Marta Puente MD Work Phone: [facility] Start: 03-01-2024 End: 03-01-2024 Bamboo flowsheet Marta Puente MD Work Phone: [facility] Start: 03-01-2024 End: 03-01-2024 Office outpatient visit 15 minutes [facility] Comment on above: Mass of thyroid nadir on (Primary Dx) Start: 03-01-2024 End: 03-01-2024 ambulatory MARTA PUENTE Not Available Start: 01-13-2024 End: 01-13-2024 ambulatory Marta Puente Facility:[facility] [place] [place] Start: 01-13-2024 End: 01-13-2024 Patient encounter procedure Marta Puente [facility] Start: 11-12-2023 End: 11-12-2023 ambulatory Matt Bass Facility:[facility] Start: 11-12-2023 End: 11-12-2023 Patient encounter procedure Matt Bass [facility] Start: 10-21-2023 End: 10-21-2023 Patient encounter procedure SUHAS MCGHEE [facility] Start: 10-21-2023 End: 10-21-2023 ambulatory SUHAS MCGHEE Facility:[facility] [place] [place] Start: 10-07-2023 End: 10-07-2023 ambulatory Nancy MCKNIGHT Facility:[facility] Start: 10-07-2023 End: 10-07-2023 Patient encounter procedure Nancy MCKNIGHT [facility] Start: 09-10-2023 End: 09-10-2023 ambulatory SUHAS MCGHEE Facility:[facility] [place] [place] Start: 09-10-2023 End: 09-10-2023 Patient encounter procedure SUHAS MCGHEE [facility] Start: 08-04-2023 Bamboo flowsheet Marta rubio MD Work Phone: [facility] Start: 08-04-2023 Bamboo flowsheet Marta rubio MD Work Phone: [facility] Start: 08-04-2023 End: 08-04-2023 Office outpatient visit 15 minutes Marta Puente MD Work Phone: [facility] Comment on above: Mass of thyroid nadir on (Primary Dx); Hyperthyroidism (CMS/HCC) Start: 08-04-2023 End: 08-04-2023 ambulatory MARTA PUENTE Not Available Start: 07-29-2023 ambulatory Nancy MCKNIGHT [facility]: [facility] Start: 07-24-2023 End: 07-24-2023 ambulatory Matt Gudimella Facility:[facility] Start: 07-24-2023 End: 07-24-2023 Patient encounter procedure Matt [facility] Start: 07-18-2023 End: 07-18-2023 ambulatory Nancy MCKNIGHT Facility:[facility] Start: 07-18-2023 End: 07-18-2023 Patient encounter procedure Nancy MCKNIGHT [facility] Start: 07-18-2023 End: 07-18-2023 ambulatory Matt Bethmelkeysha Facility:[facility] [place] [place] Start: 07-18-2023 End: 07-18-2023 Patient encounter procedure Matt Gudimella [facility] Start: 07-14-2023 End: 07-14-2023 ambulatory MD Ruben Mcknight Work Phone: [facility] Work Phone: Start: 07-14-2023 End: 07-14-2023 Departed Referred MD Ruben Mcknight Work Phone: [facility] Start: 07-08-2023 End: 10-07-2023 ambulatory Matt Gudimella Facility:[facility] [place] [place] Start: 07-08-2023 End: 10-07-2023 Recurring Matt Gudimella [facility] Start: 06-27-2023 ambulatory Matt Gudimella Facilit y:[facility] Start: 06-27-2023 End: 06-27-2023 ambulatory Matt Gudimella Facility:[facility] [place] [place] Start: 06-27-2023 End: 06-27-2023 Patient encounter procedure Matt Gudimella [facility] Start: 06-24-2023 End: 06-24-2023 ambulatory Matt Gudimella Facility:[facility] Start: 06-24-2023 End: 06-24-2023 Patient encounter procedure Matt Gud[facility] Start: 06-21-2023 End: 06-21-2023 ambulatory Filiberto Cramer Facility:[facility] [place] [place] Start: 06-21-2023 End: 06-21-2023 Patient encounter procedure Filiberto Cramer [facility] Start: 06-20-2023 End: 06-20-2023 ambulatory Filiberto Cramer Facility:[facility] Start: 06-20-2023 End: 06-20-2023 Patient encounter procedure Filiberto Cramer [facility] Start: 06-09-2023 End: 06-09-2023 ambulatory Narendranath Lakshmipathy Facility:[facility] [place] [place] Start: 06-09-2023 End: 06-09-2023 Patient encounter procedure Narendranath Lakshmipathy [facility] Start: 04-28-2023 End: 04-28-2023 Patient encounter procedure EBER POTTS [facility] Start: 11-05-2022 End: 11-06-2022 ambulatory NARENDRANATH LAKSHMIPATHY . Facility:[facility] Start: 10-22-2022 End: 10-22-[address] DOCTOR ALEJANDRE Facility:[facility] Start: 10-01-2022 End: 10-02-2022 ambulatory ISAURA KELLY . Facility:[facility] Start: 08-27-2022 End: 08-27-2022 ambulatory Ric Tinoco Other [facility] [employer] Other Start: 08-27-2022 Telephone encounter Ric Tinoco [facility] Start: 06-11-2022 End: 06-12-[address] HERB RIVERO . Facility:[facility] Start: 05-28-2022 End: 05-28-[address] HERB RIVERO . Facility:[facility] Start: 03-05-2022 End: 03-06-[address] HERB RIVERO . Facility:[facility] Start: 12-28-2021 End: 12-28-2021 ambulatory Ric Tinoco Other [facility] [employer] Other Start: 12-28-2021 Office outpatient vi sit 15 minutes Ric Tinoco [facility] Start: 12-03-2021 End: 12-03-2021 Patient encounter procedure Kraig J Xavier [facility] Start: 11-08-2021 End: 11-09-[address] HERB RIVERO . Facility: Start: 07-13-2021 End: 10-11-2021 Patient encounter procedure Nancy MCKNIGHT [facility] Start: 04-17-2021 Office outpatient vi sit 15 minutes Ric GRIMES [facility] Start: 05-31-2020 End: 05-31-2020 [facility] Start: 05-31-2020 End: 05-31-2020 Emergency department patient visit Kathy Ghosh Work Phone: [facility] ED Comment on above: Chest wall pain (Brunilda michelet Dx) Start: 12-30-2018 End: 01-07-2019 Patient encounter procedure PROVIDER UNKNOWN Facility:[facility] [[email or web address] Procedures Date Procedure Procedure Detail Performing Clinician Start: 03-08-2024 End: 03-08-2024 Needle emg ea extremty w/paraspinl area complete Edwin Arambula DO Work Phone: Start: 07-14-2023 Fine biopsy needle, device (physical object) Nancy MCKNIGHT Comment on above: thyroid nodule Start: 06-12-2020 Local anesthetic sac ral epidural block Nancy MCKNIGHT Comment on above: @ [facility] per pain mgmt Start: 05-31-2020 Ecg routine ecg w/le ast 12 lds w/i&r KATHYCORNELIUS GHOSH Start: 05-31-2020 Ecg routine ecg w/le ast 12 lds w/i&r Kathycornelius Ghosh Work Phone: Start: 12-06-2019 Interbody fusion of lumbar spine by anterior approach Nancy MCKNIGHT Comment on above: [facility] [place] [facility] Start: 06-19-2018 Removal of sebaceous cyst Nancy MCKNIGHT Comment on above: Right inner thigh Start: 06-23-2006 Augmentation mammoplasty Nancy MCKNIGHT H/O: hysterectomy S/P laparoscop ic hysterectomy MD Ruben Mcknight Work Phone: laparoscopy 4 [facility] Comment on above: 2014 Dr. Golden endo metriocliff laparoscopy 5 Nancy [facility] Comment on above: 2014 Dr. Chantel narveaz metriocliff lumbar microdisectomy 5 Rex MCKNIGHT Comment on above: 10/2017 Dr. Barnes @ [facility] [[email or web address]] lumbar microdisectomy 6 Rex MCKNIGHT Comment on above: 10/2017 Dr. Barnes @ [facility] [[email or web address]] TVH 6 Nancy [facility] Comment on above: per Dr. Glez 8 wisdom teeth extracted Ruben haasher MCKNIGHT Plan of Treatment Date Care Activity Detail Author Start: 05-31-2026 Screening for malignant neoplasm of cervix [facility] Start: 07-15-2025 End: 09-30-2025 DBT Breast - bilateral screening Bilateral screening mammogram with tomosynthesis Imaging Routine Other screening mammogram Expected: 07/15/2025, Expires: 09/30/2025 [facility] Comment on above: Expected: 07/15/2025 , Expires: 09/30/2025 Start: 09-20-2024 End: 09-20-2024 Patient encounter procedure [facility] Start: 08-02-2024 End: 08-02-2024 Patient encounter procedure [facility] Comment on above: Arrived Start: 04-28-2024 End: 04-28-2024 Patient encounter procedure 04/28/2024 9:40 AM EST Office Visit [facility] [address] [place] [address] Suhas Mcghee MD [address] [place] [address] [facility] Start: 04-06-2024 End: 04-06-2024 Patient encounter procedure 04/06/2024 8:20 AM EDT Office Visit [facility] [address] [place] [address] Petra Calle, [employer] [address] [place] [address] [facility] Start: 03-08-2024 End: 03-08-2024 Patient encounter procedure [facility] Comment on above: Arrived Start: 03-01-2024 End: 03-01-2024 Patient encounter procedure 03/01/2024 8:30 AM EDT Office Visit [facility] [address] [facility] [address] [place] [address] Marta Puente MD [address] [facility] [address] [place] [address] Arrived [facility] Comment on above: Arrived Start: 02-22-2024 Influenza vaccination Influenza Vacc ine (#1) [facility] Start: 08-04-2023 End: 08-04-2023 Patient encounter procedure 08/04/2023 11:20 AM EST Office Visit [facility] [address] [place] [address] Marta Puente MD [address] [facility] [address] [place] [address] Arrived [facility] Comment on above: Arrived Start: 02-21-2023 Influenza vaccination Influenza Vacc ine (#1) [facility] Start: 02-22-2020 Influenza vaccination Flu vaccine (# 1) [place], [place] Start: 2005 Screening for malignant neoplasm of cervix Pap Smear [facility] EKG 12 Lead EKG 12 Lead ECG STAT 05/31/2020 4:01 PM EST [place], [place] IGP, APT HPV,RFX 16/18,45 IGP, APT HPV,RFX 16/18,45 Lab Routine Vaginal Pap smear Screening for HPV (human papillomavirus) Ordered: 08/02/2024 [facility] Work Phone: Comment on above: Ordered: 08/02/2024 Immunizations Immunization Date Immunization Notes Care Provider Joey jimenez 10-28-2020 COVID-19, mRNA, LNP-S, PF, 30 mcg/0.3 mL dose; Translations: [Pfizer-BioNTech COVID-19 Vaccine] Nancy Chance (app) [facility] Comment on above: Reason for Medicatio n: Prophylaxis 10-07-2020 COVID-19, mRNA, LNP-S, PF, 30 mcg/0.3 mL dose; Translations: [Pfizer-BioNTech COVID-19 Vaccine] Nancy Chance (app) [facility] Comment on above: Reason for Medicatio n: Prophylaxis 04-15-2020 influenza, injectable, quadrivalent, contains preservative Nancy MCKNIGHT [facility] 04-15-2020 influenza virus vaccine, unspecified formulation Marta Puente MD Work Phone: [facility] 03-23-2018 influenza virus vaccine, unspecified formulation Nancy MCKNIGHT [facility] 03-23-2017 influenza, injectable, quadrivalent, contains preservative Marta Puente MD Work Phone: [facility] 03-10-2013 tetanus toxoid, reduced diphtheria toxoid, and acellular pertussis vaccine, adsorbed Nancy MCKNIGHT [facility] Comment on above: Reason for Medicatio n: Other (see comment) 10-13-2007 tetanus toxoid, reduced diphtheria toxoid, and acellular pertussis vaccine, adsorbed Filiberto Cramer [facility] 10-24-1999 hepatitis A and hepatitis B vaccine Filiberto Cramer [facility] 01-25-1998 measles, mumps and rubella virus vaccine Filiberto Cramer [facility] NEGATED: Highlighted row has not occurred!07-18-2023 influenza virus vaccine, unspecified formulation Nancy MCKNIGHT [facility] NEGATED: Highlighted row has not occurred!06-20-2023 influenza virus vaccine, unspecified formulation Filiberto Cramer [facility] Payers Date Payer Category Payer Self-pay [id number] 2023 Unknown 2022 Medicaid [id number] 2022 Medicaid [id number] 2006 Private Health Insurance [id number] 1984 Unknown [id number] 2.16.8 [id number] 1984 Unknown [id number] 2.16.84 [id number] 1984 Unknown [id number] 2.16.84 [id number] 1984 Unknown [id number] 2.16.84 [id number] 1984 Unknown [id number] 2.16.84 [id number] 1984 Unknown [id number] 2.16.84 [id number] 1984 Unknown [id number] 2.16.84 [id number] 1984 Unknown [id number] 2.16.84 [id number] 1985 Unknown [id number] 2.16.84 0.1.314168.3.579.2.593 1985 Unknown [id number] 2.16.8 40.1.383944.3.579.2 1985 Unknown [id number] 2.16.8 40.1.542979.3.579.2. 1984 Unknown [id number] 2.16.8 40.1.528616.3.579.2 1984 Unknown [id number] 2.16.8 40.1.239555.3.579.2 1984 Unknown [id number] 2.16.8 40.1.974440.3.579.2 1984 Unknown [id number] 2.16.8 40.1.464846.3.579.2 1984 Unknown [id number] 2.16.8 40.1.478973.3.579.2 1984 Unknown [id number] 2.16.8 40.1.459997.3.579.2 1984 Unknown [id number] 2.16.8 40.1.294175.3.579.2 1984 Unknown [id number] 2.16.8 40.1.141820.3.579.2 1984 Unknown [id number] 2.16.8 40.1.878039.3.579.2 1984 Unknown [id number] 2.16.8 40.1.175772.3.579.2 1984 Unknown [id number] 2.16.8 40.1.100462.3.579.2 1984 Unknown [id number] 2.16.8 40.1.699728.3.579.2 1984 Unknown [id number] 2.16.8 40.1.286679.3.579.2 1984 Unknown [id number] 2.16.8 40.1.435732.3.579.2.727 1984 Unknown [id number] 2.16.8 40.1.383238.3.579.2.727 1984 Unknown [id number] 2.16.84 0.1.773314.3.579.2.1259 1984 Unknown [id number] 2.16.84 0.1.810036.3.579.2.1259 1984 Unknown [id number] 2.16.84 0.1.498604.3.579.2.1259 1984 Unknown [id number] 2.16.84 0.1.985145.3.579.2.9 1984 Unknown [id number] 2.16.84 0.1.383811.3.579.2.1259 1984 Unknown [id number] 2.16.84 0.1.236104.3.579.2.1259 1984 Unknown [id number] 2.16. 840.1.103338.3.579.2.196 1984 Unknown [id number] 2.16. 840.1.236472.3.579.2.196 1984 Unknown [id number] 2.16. 840.1.423900.3.579.2.196 1959 Private Health Insurance [id number] 1.2.840.645685.1.13.239.2.7.3.851444.315 Unknown [id number] 2.16.8 40.1.292108.3.579.2.531 Social History Date Type Detail Facility Start: 05-31-2020 End: 05-06-2023 Tobacco smoking status KYIS Never smoker [place] Start: 05-31-2020 End: 05-06-2023 Tobacco use and exposure Never used [place] Sex Assigned At Not on file [place] Exposure to SARS-CoV -2 (event) Not sure [place] Tobacco smoking status Never [facility] Start: 07-03-2023 End: 04-06-2024 Sex Assigned At Female [employer] Other Start: 1985 Sex Assigned At Female [facility] Start: 07-31-2023 End: 04-10-2024 Alcohol intake Ex-drinker (finding) [facility] Start: 07-03-2023 End: 04-06-2024 History of Social [...] fusion (ALIF) Orthopaedic bone screw, non-bioabsorbable, non-sterile +[id number] FDA Start: 12-06-2019 Anterior lumbar interbody fusion (ALIF) Orthopaedic bone screw, non-bioabsorbable, non-sterile +[id number] FDA Start: 12-06-2019 Anterior lumbar interbody fusion (ALIF) Bone-screw internal spinal fixation system, non-sterile +[id number] FDA Start: 12-06-2019 Anterior lumbar interbody fusion (ALIF) Bone-screw internal spinal fixation system, non-sterile +[id number] FDA Start: 12-06-2019 Anterior lumbar interbody fusion (ALIF) Spinal fusion graft kit ()[id number]( [id number]) 1AAT FDA Start: 12-06-2019 Anterior lumbar interbody fusion (ALIF) Spinal bone screw, non-bioabsorbable ()[id number] FDA Start: 12-06-2019 Anterior lumbar interbody fusion (ALIF) Metallic spinal fusion cage, non-sterile ()[id number] FDA Start: 12-06-2019 Anterior lumbar interbody fusion (ALIF) Bone-screw internal spinal fixation system, non-sterile +[id number] FDA Start: 12-06-2019 Functional Status Date Assessment Result Facility 11-12-2023 Functional Status N/A [facility] 10-07-2023 Functional Status N/A [facility] 07-24-2023 Functional Status N/A [facility] 07-18-2023 Functional Status N/A [facility] 06-24-2023 Functional Status N/A [facility] 06-20-2023 Functional Status N/A [facility] Care Clinical Notes 04-17-2021 to 08-02-2024 Kraig Goodman MD - 08/02/2024 11:30 AM ESTTelephone Encounter - Shayy Phillips - 07/21/2024 1:33 PM ESTTelephone Encounter - Shayy Phillips - 07/21/2024 1:33 PM ESTLaboratoryLaboratoryLaboratoryRadiology Note Date & Type Note Facility 08-02-2024 History of Presen t illness Narrative Images from the original note were not included. Kraig Goodman MD Obstetrics and Gynecology Patient: Jessica Holt Rocco, : 1985 (38 y.o.) DOS 08/02/24 Exam Date: 08/02/2024 HPI: Foloowup of menopausal symptoms. Needs refill of ERT. She is due for PAP Visit Vitals BP 102/68 Wt 133 lb BMI 21.47 kg/m OB Status Hysterectomy Smoking Status Never BSA 1.68 m OB History Para Term AB Living 2 2 2 0 0 2 SAB IAB Ectopic Multiple Live Births 0 0 0 0 2 # Outcome Date GA Lbr Ector/2nd Weight Sex Type Anes PTL Lv 2 Term 1 Term Obstetric Comments Pap: 06/12-Neg CALEB Hysterectomy Medication and Allergies Medication Documentation Review Audit Reviewed by Helen Shaver MA ([employer] Machine Tender) on 08/02/24 at 1134 Medication Order Taking? Sig Documenting Provider Last Dose Status baclofen (Lioresal) 10 MG tablet [id number] TAKE 1 TABLET BY MOUTH TWICE DAILY (IN THE MORNING AND BEFORE BEDTIME) Petra Calle NP Active erenumab (Aimovig) 140 MG/ML injection [id number] INJECT 1 SYRINGE SUBCUTANEOUSLY ONCE EVERY MONTH Petra Calle NP Active estradiol (Estrace) 2 MG tablet [id number] Take 1 tablet (2 mg) by mouth Daily Kraig Goodman MD Active gabapentin (Neurontin) 600 MG tablet [id number] No Take 1 tablet by mouth Daily Kraig Goodman MD Taking Active methIMAzole (Tapazole) 10 MG tablet [id number] No Take 10 mg by mouth Marta Puente MD Taking Active OXcarbazepine (Trileptal) 300 MG tablet [id number] TAKE 1/2 (ONE-HALF) TABLET BY MOUTH IN THE MORNING AND 1 TO 2 TABLETS AT BEDTIME Petra Calle NP Active Discontinued 08/02/24 1134 Rimegepant Sulfate (Nurtec) 75 MG tablet dispersible [id number] Take 1 tablet by mouth Daily as needed (1 tablet at the onset of a migraine. do not repeat. no more than 2 days/week) Petra Calle NP Active tiZANidine (Zanaflex) 4 MG tablet [id number] Take 1 tablet (4 mg) by mouth at bedtime Petra Calle NP Active traMADol (Ultram) 50 MG tablet [id number] No TAKE 1 TABLET BY MOUTH THREE TIMES DAILY NEEDED. MUST LAST 30 DAYS. Kraig Goodman MD Taking Active Discontinued 08/02/24 1134 Allergies Allergen Reactions Latex Rash Latex gloves. Wound Dressing Adhesive Rash Rash from bandaids and tape. Past Medical History: Diagnosis Date Cervical radiculopathy 04/14/2019 Degenerative disc disease, cervical 07/16/2018 Diplopia 12/01/2018 Dizziness 04/2023 Endometriosis Had in the past Facial numbness Fatigue 04/2023 H/O breast augmentation 2007 Hormone disorder Unknown date IBS (irritable bowel syndrome) Lumbar herniated disc Lumbar radiculopathy Menopause ovarian failure 2021 Migraine (CMS/HCC) 2017 Neck pain 07/30/2018 Nontoxic single thyroid nodule (CMS/HCC) Occipital neuralgia 07/30/2018 Thyroiditis (CMS/HCC) Thyrotoxicosis, unspecified without thyrotoxic crisis or storm (CMS/HCC) Tingling of right upper extremity 12/01/2018 Urinary tract infection Had in the past Weakness of right arm Past Surgical History: Procedure Laterality Date ABDOMINAL SURGERY ADENOIDECTOMY BREAST SURGERY 2006 Breast augmentation BREAST SURGERY 2017 Breast implant replacement COSMETIC SURGERY FNA W IMAGING GUIDANCE 07/14/2023 thyroid FNA HYSTERECTOMY 2018 LAVH, BSO LUMBAR FUSION 12/06/2019 L5-S1 anterior lumbar interbody fusion MICRODISCECTOMY LUMBAR 10/2017 Micro discectomy L5-S1 PELVIC LAPAROSCOPY 2015 Laparoscopic SAMAN removal of endometriosis - Dr. Rosales TONSILLECTOMY Physical Exam: Objective Physical Exam Constitutional: Appearance: Normal appearance. Genitourinary: Vulva normal. Vaginal cuff intact. Right Adnexa: not palpable. Left Adnexa: not palpable. Cervix is absent. Uterus is absent. Breasts: Right: Normal. Left: Normal. Pulmonary: Effort: Pulmonary effort is normal. Abdominal: General: Abdomen is flat. Palpations: Abdomen is soft. Neurological: Mental Status: She is alert. Associated Treatments and Results - ICD-10-CM 1. Menopausal symptoms N95.1 2. Vaginal Pap smear Z12.72 IGP, APT HPV,RFX 16/18,45 3. Screening for HPV (human papillomavirus) Z11.51 IGP, APT HPV,RFX 16/18,45 4. Other screening mammogram Z12.31 Bilateral screening mammogram with tomosynthesis Assessment/Plan Orders Placed This Encounter Procedures Bilateral screening mammogram with tomosynthesis U/S and spot compression if indicated Standing Status: Future Standing Expiration Date: 09/30/2025 Order Specific Question: Reason for exam: Answer: screen Order Specific Question: Is the patient ? Answer: No IGP, APT HPV,RFX 16/18,45 Order Specific Question: Print requisition? Answer: Yes documented in this encounter [facility] 07-21-2024 Telephone encounter Note error [facility] 07-21-2024 Miscellaneous Notes error documented in this encounter [facility] 05-10-2024 Evaluation + Plan note Diagnostic Tests PendingT3 Free 05/10/24 Future Scheduled TestsLab Miscellaneous-LC 07/24/23 [facility] 03-08-2024 History of Presen t illness Narrative Images from the original note were not included. Reason for Appointment: EMG Patient: Jessica Griffiths : 1985 EMG Computer: [employer] Referring Physician: Eber Potts NP EMG: LIONEL tapping machine operator: Deya Mcnulty CMA Office Location: [place] Reason for EMG: c/o leg pain and pressure. Back pain. Radiates in the hips, shooting pains down the legs. Hx of back surgery. No Hx of DM, not taking blood thinners. Comments: Procedure explained to the patient who expressed understanding. documented in this encounter [facility] 03-01-2024 History of Presen t illness [...] further routine US documented in this encounter [facility] 10-21-2023 Evaluation + Plan note Diagnostic Tests PendingT3 Free 10/21/23 Future Scheduled TestsLab Miscellaneous-LC 07/24/23 [facility] 10-07-2023 Hospital Discharg e instructions Patient Education [...] Treatment for this condition includes: Antibiotic medicine. Ifxi-hxp-invqzjr medicines to treat discomfort. Drinking enough water [...] Follow these instructions at home: Medicines Take wlwu-uum-xlmlsfc and prescription medicines only as told by [...] provider. Document Revised: 01/19/2021 Document Reviewed: 01/19/2021 [employer] Patient Education 2022 [employer]. Follow Up Care 10/07/2023 07:28:28 With:Nancy MCKNIGHT MD, FAM Address: When: only if needed [facility] 08-04-2023 History of Presen t illness Narrative [...] W IMAGING GUIDANCE 07/14/2023 thyroid FNA [facility]STERECTOMY [facility]-2018 OTHER SURGICAL HISTORY Breast implant replacement OTHER [...] per Dr Mcghee documented in this encounter [facility] 07-24-2023 Evaluation + Plan note Future Scheduled TestsLab Miscellaneous-LC 07/24/23Echo Transthoracic Complete 07/24/23 [facility] [place] 07-24-2023 Evaluation + Plan note Future Scheduled TestsLab Miscellaneous-LC 07/24/23 [facility] 07-18-2023 Evaluation + Plan note Diagnostic Tests PendingT3 Reverse, Serum 07/18/23Thyroid Perox.tpo Ab 07/18/23TgAb+Thyroglobulin,NIGEL or KELVIN 07/18/23 [facility] 07-18-2023 Hospital Discharg e instructions Patient Education [...] surgery. Follow these instructions at home: Take byxj-pfh-ttgbfiv and prescription medicines only as told by [...] condition. Where to find more information [employer] [place] of Diabetes and [employer]estive and Kidney Diseases: [...] provider. Document Revised: 08/02/2022 Document Reviewed: 08/02/2022 [employer] Patient Education 2022 [employer]. Follow Up Care 07/18/2023 07:34:13 With:JUAN LUIS REES, SAMIR [place] Address: When: only if needed [facility] 06-21-2023 Evaluation + Plan note Diagnostic Tests PendingT3 Free 06/21/23 Future Scheduled TestsCBC w/ Auto Diff 06/20/23Comprehensive Metabolic Panel 06/20/23Free T4 06/20/23 [facility] 06-20-2023 Hospital Discharg e instructions Patient Education [...] few weeks. Home care treatment may include: Ojdy-civ-kjzkszd pain relievers. A warm, moist cloth placed over the ear. Severe cases may require a procedure to insert tubes in the ears (tympanostomy tubes) to drain the fluid. Follow these instructions at home: Take yhyl-rmo-lwhbajs and prescription medicines only as told by [...] provider. Document Revised: 10/04/2021 Document Reviewed: 10/04/2021 [employer] Patient Education 2022 [employer]. 06/20/2023 19:03:16 Thyroid Nodule Thyroid Nodule A [...] in your thyroid nodule or nodules. Take osiq-psp-uvxltla and prescription medicines only as told by [...] provider. Document Revised: 04/22/2022 Document Reviewed: 04/22/2022 [employer] Patient Education 2022 [employer]. Follow Up Care 06/20/2023 07:23:01 With:Nancy MCKNIGHT MD [facility] Address: [address] [place] [address]- When: Unknown [facility] 06-20-2023 Evaluation + Plan note Future Scheduled TestsT4 Total 06/20/23CBC w/ Auto Diff 06/20/23Comprehensive Metabolic Panel 06/20/23T3 Free 06/20/23T3 Uptake 06/20/23Thyroid Stimulating Hormone 06/20/23Free T4 06/20/23 [facility] 10-01-2022 Note CONSULTATION [...] our patients to inform us about any qrno-wbe-vggoypv medications or herbal remedies/nutritional supplements/alternative remedies. 2. [...] options with their primary care provider. [facility] 06-11-2022 Note CONSULTATION CONSULTATION DATE: 06/11/2022 [...] and concurs. CC: Nancy Mcknight M.D. [facility] 03-05-2022 Note PAIN MANAGEMENT CONS ULTATION [...] along this region. CC: Dr. Mcknight [facility] 12-28-2021 Evaluation note Encounter Date Diagnosis [...] follow her up on an as-needed basis [employer] [facility] 06-13-2022 Evaluation + Plan note Diagnostic Tests Pending * Insulin Level Total 12/03/21 * T3 Free 12/03/21 * FSH Level 12/03/21 Future Scheduled Tests Laboratory* COVID-19 ([facility] [place] [place]) 07/13/21 [facility]05-19-2022 NoteCONSULTATION CONSULTATION DATE: 11/08/2021 This is [...] does plan on seeing Dr. Damon in [facility]. Activities that aggravate her neck are [...] and would like to proceed. [facility] Signed and Approved by: ISAURA KELLY . 11/12/2021 15:05:00[facility]01-21-2022 Evaluation + Plan note Future Scheduled Tests Laboratory* COVID-19 ([facility] [place] [place]) 07/13/21 [facility]10-26-2021 Evaluation note* Encounter Date Diagnosis Assessment Notes Treatment Notes Treatment Clinical Notes Mar, Spondylolisthesis at L5-S1 level (ICD-10 - M43.17) I answered a number of questions for the patient. I think a transforaminal injection may be beneficial. I also believe that she could potentially benefit from a dorsal column stimulator. She is seeing a another neurologist at [facility] and I am interested in what medication changes are made. I will see the patient again in 3 months and review this with her. I looked at the picture of the spine today she has good bone formation and her [facility] hardware is intact. Because of the persistent [...] region with neurogenic claudication (ICD-10 - M48.062) [employer] Other evaluation + Plan note Future Appointments Appointment Date:06/27/2023 07:30:00 AM Scheduled Provider: Location:.[facility] Appointment Type:US Thyroid/Neck/Chest () Appointment Date:06/27/2023 08:00:00 AM Scheduled Provider: Location:.CARDIO Appointment Type:CV EKG () Appointment Date:07/29/2023 12:40:00 PM Scheduled Provider:Nancy MCKNIGHT MD Location:[facility] Po Appointment Type: Open Future Scheduled Tests Laboratory* UA With Cult Reflex 06/24/23 * CBC w/ Auto Diff 06/20/23 * Comprehensive Metabolic Panel 06/20/23 * Lipid Panel 06/24/23 * Free T4 06/20/23 Radiology* US Thyroid 06/27/23 [facility] [place] Evaluation + Plan note Future Appointments Appointment Date:07/29/2023 12:40:00 PM Scheduled Provider:Nancy MCKNIGHT MD Location:[facility] Po Appointment Type: Open Future Scheduled Tests Laboratory* UA With Cult Reflex 06/24/23 * CBC w/ Auto Diff 06/20/23 * Comprehensive Metabolic Panel 06/20/23 * Lipid Panel 06/24/23 * Free T4 06/20/23 Radiology* US FNA w/ Guidance, first lesion 06/27/23 * NM Thyroid Imaging w/ Uptk Multiple 06/27/23 [facility] Future Appointments Appointment Date:09/11/2023 08:00:00 AM Scheduled Provider: Location:FT.CARDIO Appointment Type:CV Echo (FT) Diagnostic Tests Pending * T3 Free 09/10/23 * Thyrotropin Receptor Antibody, Serum 09/10/23 Future Scheduled Tests Laboratory* Lab Miscellaneous-LC 07/24/23 Radiology* Echo Transthoracic Complete 09/11/23 [facility] note[facility] InformationNort [email or web address] Other evaluation noteNo assessment information available [facility] [...] region- Primary [facility] Diagnosis Menopausal symptoms Symptomatic menopausal or female climacteric states Vaginal Pap smear Special screening for malignant neoplasms, vagina Screening for HPV (human papillomavirus) Special screening examination for human papillomavirus (HPV) Other screening mammogram documented in this encounter [facility] general [...] ALIF-Doctor Alejandrina Hospitalization History see surgical hx [facility] [employer] Other Hospital course Narrative No data available for this section [facility] No data available for this section [facility] No data available for this section [facility] Summary Purpose Family History No Family History Records Found Relationship Condition Age at Onset Recorded Date/T rody Not Specified Healthy female adult Unknown father Osteoarthritis Unknown Degeneration of intervertebral disc Unkno wn Advance Directives No Advanced Directives Records FoundDocuments on File Type Date Recorded 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 * Chest Pain: Musculoskeletal (Tajik) documented in this encounter Assessments Diagnosis Chest wall pain Painful respiration Reason for Referral Reason Evaluate and Treat C onsider for Dorsal Column Stimulator Diagnosis 1 Spondylolisthesis at L5-S1 level (M43.17) Referral Organization [facility] u[facility]gery Referring Provider First Name Ric Referring Provider Last Name Alejandrina Referring Provider Specialty Neurologica l Surgery Referred Organization Unknown Facility Referred Provider Mansoor Summers Referred Provider Specialty Pain Medicin e Referral Priority Routine Additional Source Comments INFORMATION SOURCE (unrecogn ized section and content) DATE CREATED AUTHOR 01/14/2020 [facility] DATE CREATED AUTHOR AUTHOR'S ORGANIZ ATION 06/01/2020 Garryrenée HooperDeckerviridiana rosales DATE CREATED AUTHOR AUTHOR'S ORGANIZ ATION 11/06/2022 [facility] DATE CREATED AUTHOR AUTHOR'S ORGANIZ ATION 08/01/2023 [facility] DATE CREATED AUTHOR AUTHOR'S ORGANIZ ATION 05/12/2024 [facility] DATE CREATED AUTHOR AUTHOR'S ORGANIZ ATION 05/17/2024 [facility] DATE CREATED AUTHOR AUTHOR'S ORGANIZ ATION 08/03/2024 [facility] EPIC DATE CREATED AUTHOR AUTHOR'S ORGANIZ ATION 08/10/2024 [facility] Reason for Visit (unrecogniz ed section and [...] July 14, 2023 End: July 14, 2023 Photo Specialist Relationship Specialty Start Date End Date Nancy Mcknight MD [address] [place] [address] PCP - General 05/07/23 Photo Specialist Relationship Specialty Start Date End Date Nancy Mcknight MD [address] [place] [address] PCP - General 05/07/23 Photo Specialist Relationship Specialty Start Date End Date Nancy Mcknight MD [facility] [address] [place] [address] PCP - General 05/07/23 Photo Specialist Relationship Specialty Start Date End Date Nancy Mcknight MD [address] [address] PCP - General 05/07/23 Photo Specialist Relationship Specialty Start Date End Date Nancy Mcknight MD [address] [place] [address] PCP - General 05/07/23 Photo Specialist Relationship Specialty Start Date End Date Nancy Mcknight MD [address] [place] [address] PCP - General 05/07/23 Photo Specialist Relationship Specialty Start Date End Date Nancy Mcknight MD [address] [place] [address] PCP - General 05/07/23 Photo Specialist Relationship Specialty Start Date End Date Nancy Mcknight MD [address] [place] [address] PCP - General 05/07/23 Photo Specialist Relationship Specialty Start Date End Date Nancy Mcknight MD [address] [place] [address] PCP - General 05/07/23 Goals (unrecognized section [...] BE BASED ON THE PRIMARY CLINICAL RECORDS. [facility] [employer] provides no warranty or guarantee of the accuracy or completeness of information in this document.
--- NOTE | 2024-08-23 15:38 | P.CN_ITS ---
Consult Note: HPI Data of Consult Patient: known to practice within the last 3 years Consult date: 08/23/24 Requesting Physician: Suzie Alegria MD Primary Care Provider: Non-Staff Physician, Consult Narrative Reason for consult: right neck, shoulder, arm pain Narrative: 39yof who presents for assessment. continues to have pain that radiates from neck into right shoulder and arm. imaging reviewed, significant for stenosis at c6-7. has continued in a series of provider directed home exercises >6 weeks, w ithout lasting benefit. uses pain meds as needed. denies adverse med side effects. cc:: CC: Suzie Alegria MD Review of Systems ROS Status of ROS 10 or more systems reviewed and unremark able except as noted in history and below [facility] Medical History Migraines ?G43.909 - Migraine, unspecified, not intractable, without status migrainosus (ICD-10) Chronic pharyngitis ?J31.2 - Chronic pharyngitis (ICD-10) Endometriosis determined by laparoscopy ?N80.9 - Endometriosis, unspecified (ICD-10) Hyperthyroidism ?E05.90 - Thyrotoxicosis, unspecified without thyrotoxic crisis or storm (ICD-10) Neck pain ?M54.2 - Cervicalgia (ICD-10) Low back pain ?M54.50 - Low back pain, unspecified (ICD-10) Numbness and tingling ?R20.0 - Anesthesia of skin (ICD-10) ?R20.2 - Paresthesia of skin (ICD-10) Surgical History S/P fine needle aspiration ?Z98.890 - Other specified postprocedural states (ICD-10) History of lumbar fusion ?Z98.1 - Arthrodesis status (ICD-10) H/O breast implant ?Z98.82 - Breast implant status (ICD-10) Hx of breast implants, bilateral ?Z98.82 - Breast implant status (ICD-10) Status post lumbar surgery ?Z98.890 - Other specified postprocedural states (ICD-10) H/O: hysterectomy ?Z90.710 - Acquired absence of both cervix and uterus (ICD-10) S/P T&A (status post tonsillectomy and adenoidectomy) ?Z90.89 - Acquired absence of other organs (ICD-10) Hx of laparoscopy ?Z98.890 - Other specified postprocedural states (ICD-10) H/O breast augmentation ?Z98.82 - Breast implant status (ICD-10) Meds Home Medications and Allergies Home Medications ?Medication ?Instructions ?Recorded ?Confirmed ?Type baclofen 10 mg tablet 10 mg PO BID 12/04/22 08/02/24 History tizanidine 4 mg tablet 4 mg PO .HS 12/04/22 08/02/24 History estradiol 2 mg tablet 2 mg PO DAILY 07/11/23 08/02/24 History oxcarbazepine 150 mg tablet 150 mg PO DAILY 07/11/23 08/02/24 History rimegepant 75 mg disintegrating 75 mg PO QDAY PRN migraine headache 01/14/24 08/02/24 History tablet (Nurtec ODT) gabapentin 300 mg capsule 300 mg PO BID #60 caps 02/04/24 08/02/24 Rx tramadol 50 mg tablet 50 mg PO TID PRN pain #90 tabs 06/08/24 08/02/24 Rx Allergies Allergy/AdvReac Type Severity Reaction Status Date / Time adhesive Allergy Rash Verified 08/02/24 09:09 latex Allergy Rash Verified 08/02/24 09:09 Exam Narrative Exam Narrative: Psych-alert and oriented x 3.? Attentive and appropriate, constitutionally normal, displays normal mood and affect per situation.? There are no obvious deficits in memory, reasoning, or intellect.? Skin-no obvious rashes, bruising, or erythema noted to the patient's area of pain.? Extremities-upper extremities are warm with minimal edema and palpable pulses. Cervical- tenderness to palpation noted in the cervical spine and paraspinal mus culature.? Pain is elicited with flexion, extension, and lateral rotation of the cervical spine.? Range of motion is diminished due to pain. Facet loading maneuvers are negative.? Strength-unremarkable and within normal limits Sensory-no notable sensory deficits in the bilateral upper extremities to touch or pinprick with the exception to decreased sensation to the right C6, 7 dermatomal distribution.? Coordination remains intact.? Gait remains non-antalgic. Assessment and Plan Assessment and Plan (1) Cervical radiculopathy: (2) Cervical stenosis of spinal canal: Plan 39yof who presents for assessment. failed conservative measures, as noted. imaging reviewed, as noted. given symptoms and imaging, prudent to attempt right C6-7 tfesi under fluoroscopic guidance. she is in agreement. meds reviewed, no changes. follow up after procedure.
== END 2024-08-23 14:34 | disposition home or self-care (01) ==
LOC: PM 14:35
PROVIDERS: Visit Provider Anesthesiology
DX: M54.12 Radiculopathy, cervical region (principal); M48.02 Spinal stenosis, cervical region
CPT/HCPCS: G0463

== ENCOUNTER 2024-09-20 09:17 | Day surgery (SDC) | payer MEDICAID, SELFPAY ==
--- OUTSIDE RECORDS SUMMARY | 2024-09-20 09:35 | XMS_ITS | CCD ---
Author Organization [facility] Care Team Providers Care Best Worker Name Role Phone UNKNOWN, PROVIDER Admitting Unavailable UNKNOWN, PROVIDER Attending Unavailable UNKNOWN, PHYSICIAN Referring Unavailable UNKNOWN, PHYSICIAN Primary Care Unavailable Nancy Mcknight Primary Care Provider KATHY GHOSH Attending Unavailable NANCY MCKNIGHT Primary Care Unavailable Nancy MCKNIGHT Primary Care Physician [phone] Ric Tinoco Unavailable JOSEFA ., DR HERB Melgar Attending Unavailable RIVERO ., DR HERB Melgar Admitting Unavailable RIVERO ., DR HERB Melgar Consulting Unavailable MISC, DR MURRIETA Primary Care Unavailable LAKSHMIPATHY ., SHARONA Consulting Fied vailable MISC, DR MURRIETA Primary Care Unavailable [...] Unavailable MD Ruben Mcknight Primary Care Provider [phone] MD Marta Puente Jr Attending Provider Marta Duncan Jr Attending Unavailable Marta Puente Jr H Admitting Unavailable Ruben Mcknight Primary Care Unavailable Nancy Mcknight MD Primary Care Provider Nancy MCKNIGHT Primary Care Physician [phone] Gudimella, Matt Attending Unavailable Gudimella, Matt Attending Unavailable Swapnala, Matt Attending Unavailable Nancy MCKNIGHT Attending Unavailable Nancy MCKNIGHT Attending Unavailable Nancy MCKNIGHT Attending Unavailable SUMI, AHMARd F Attending Unavailable SUMI, AHMAD F Admitting [...] Unava ilable Timmis, Marta H Referring Unavailable Roldanmis, Marta H Admitting Unavailable Timmis, Marta H [...] Unavailable Airam REES, Suzie Greer Attending Unavailable Alva CANOE INSPECTOR FINAL, Petra Unavailable Edwin Arambula DO Unavailable Allergies Allergy Classification Reported Allergen(s) Allergy Type Date of Onset Reaction(s) Facility (1 source) Adhesive agent; Translations: [Unknown] Propensity to adverse reactions (disorder) 9 [facility] Repository (19 sources) Adhesive Tape; Translations: [Tape] Drug allergy Eruption of skin (disorder) [facility] (20 sources) Latex; Translations: [Latex] Drug allergy 5 [facility] Seen Other (3 sources) adhesive bandages Propensity to adverse reactions [facility] Seen Other (1 source) Adhesive agent Drug allergy (disorder) 6 [facility] Repository (1 source) Adhesive agent Drug allergy (disorder) 2 [facility] Repository (1 source) Adhesive Tape Drug allergy (disorder) 0 [facility] Repository (18 sources) Wound Dressing Adhesive Drug Allergy 5 [...] (20 sources) gamma-Aminobutyr ic Acid-ergic Agonist Start: 09-20-2024 take 1 tablet by mouth twice daily at bedtime baclofen (Lioresal) 10 MG tablet Indications: Neck pain TAKE 1 TABLET BY MOUTH TWICE DAILY (IN THE MORNING AND BEFORE BEDTIME) 60 tablet 5 09/20/2024 Active Start: 09-20-2024 take 1 tablet by jaden twice daily at bedtime baclofen (Lioresal) 10 MG tablet Indications: Neck pain TAKE 1 TABLET BY MOUTH TWICE DAILY (IN THE MORNING AND BEFORE BEDTIME) 60 tablet 5 09/20/2024 Active Start: 07-13-2024 End: 09-20-2024 take 1 tablet by mouth twice daily at bedtime baclofen (Lioresal) 10 MG tablet Indications: Neck pain TAKE 1 TABLET BY MOUTH TWICE DAILY (IN THE MORNING AND BEFORE BEDTIME) 60 tablet 07/13/2024 09/20/2024 Discontinued (Reorder) Start: 02-02-2024 End: 05-02-2024 take 0.5-1 tablets [...] course, # 28 cap(s), Refills(s) 0, Pharmacy: [facility], 168, cm, 07/11/20 8:27:00 EST, Height/Length [...] Daily, # 90 tab(s), Refills(s) 1, Pharmacy: [facility], 168, cm, 07/11/20 8:27:00 EST, Height/Length [...] Daily 30 tablet 11 08/02/2024 Active Start: 05-07-2023 End: 05-06-2024 take 1 tablet by mouth in the morning estradiol (Estrace) 2 MG tablet Indications: Menopausal symptoms Take 1 tablet (2 mg) by mouth in the morning. 30 tablet 05/07/2023 05/06/2024 Active Start: 06-19-2018 take 1 tablet by jaden once daily Estrace 1 mg Tab 1 mg = 1 tab(s), Oral, Daily Start Date: 06/19/18 Status: Ordered fluticasone propionate 0.05 mg/actuat metered dose nasal spray (3 sources) Corticosteroid Start: 06-20-2023 End: 06-27-2023 take 2 spray(s) nasal route once daily Flonase 0.05 mg/inh Rowley 2 spray(s), Nasal, Daily for 7 day(s), 16 gm, Refill(s) 0, each nostril, [facility], 168, cm, 06/20/23 18:45:00 [...] Active Start: 11-30-2019 [facility] Lamictal 25 mg Tab 25 mg = 1 tab(s), Oral, BID, # 180 tab(s), Refills(s) 1, Pharmacy: [facility], 168, cm, 07/11/20 8:27:00 EST, Height/Length Dosing, 64.1, kg, 07/11/20 8:27:00 EST, Weight Dosing Start Date: 08/22/20 Status: Ordered loratadine 10 mg oral tablet (3 sources) Start: 02-23-2020 take 1 tablet by mouth once daily loratadine 10 mg Tab 10 mg = 1 tab(s), Oral, Daily, # 90 tab(s), Refills(s) 1, Pharmacy: [facility], 168, cm, 02/23/20 10:40:00 EDT, Height/Length Dosing, 65, kg, 02/23/20 10:40:00 EDT, Weight Dosing Start Date: 02/23/20 Status: Ordered Start: 11-30-2019 take 1 [facility] by [facility] daily loratadine (CLARITIN) 10 MG capsule Take 10 mg by mouth daily 0 11/30/2019 Active methIMAzole 10 mg oral tablet (17 sources) Thyroid Hormone Synthesis Inhibitor Start: 08-01-2023 [...] Nausea/Vomiting, # 10 tab(s), Refills(s) 0, Pharmacy: [facility], 168, cm, 07/10/20 13:24:00 EST, Height/Length Dosing, 62.1, kg, 07/10/20 13:24:00 EST, Weight Dosing Start Date: 07/10/20 Status: Ordered OXcarbazepine 300 mg oral tablet (20 sources) Anti-epileptic Agent Start: 09-20-2024 take 0.5 tablet by mouth in the morning, then take 1-2 tablets by mouth at bedtime OXcarbazepine (Trileptal) 300 MG tablet Indications: Paresthesias TAKE 1/2 (ONE-HALF) TABLET BY MOUTH IN THE MORNING AND 1 TO 2 TABLETS AT BEDTIME 75 tablet 5 09/20/2024 Active Start: 09-20-2024 take 0.5 tablet by m outh in the morning, then take 1-2 tablets by mouth at bedtime OXcarbazepine (Trileptal) 300 MG tablet Indications: Paresthesias TAKE 1/2 (ONE-HALF) TABLET BY MOUTH IN THE MORNING AND 1 TO 2 TABLETS AT BEDTIME 75 tablet 5 09/20/2024 Active Start: 07-05-2024 End: 09-20-2024 take 0.5 tablet by mouth in the morning, then take 1-2 tablets by mouth at bedtime OXcarbazepine (Trileptal) 300 MG tablet Indications: Paresthesias TAKE 1/2 (ONE-HALF) TABLET BY MOUTH IN THE MORNING AND 1 TO 2 TABLETS AT BEDTIME 75 tablet 07/05/2024 09/20/2024 Discontinued (Reorder) Start: 05-17-2024 take 0.5 tablet by m [...] symptoms, # 30 tab(s), Refills(s) 0, Pharmacy: [facility], 168, cm, 10/07/23 10:32:00 EDT, Height/Length Dosing, 61, kg, 10/07/23 10:32:00 EDT, Weight Dosing Start Date: 10/07/23 Status: Ordered Start: 05-26-2020 take 1 tablet by jaden th twice daily as needed oxybutynin 5 mg Tab 5 mg = 1 tab(s), Oral, BID, PRN for urinary discomfort, # 60 tab(s), Refills(s) 2, Pharmacy: [facility], 168, cm, 05/26/20 16:32:00 [...] breakfast, # 30 tab(s), Refills(s) 5, Pharmacy: [facility], 168, cm, 07/11/20 8:27:00 [...] Once, # 1 tab(s), Refills(s) 0, Pharmacy: [facility], 168, cm, 07/24/23 13:48:00 EST, Height/Length Dosing, 61, kg, 07/24/23 13:48:00 EST, Weight Dosing Start Date: 07/24/23 Status: Ordered Protonix 40 mg Tab-EC (3 sources) Start: 02-06-2021 take 1 tablet by mouth once daily 30 minutes before breakfast Protonix 40 mg Tab-EC 40 mg = 1 tab(s), Oral, Daily, Take 30 minutes before breakfast, # 30 tab(s), Refills(s) 5, Pharmacy: [facility], 168, cm, 07/11/20 8:27:00 [...] (20 sources) Central alpha-2 Adrenergic Agonist Start: 09-20-2024 take 1 tablet by mouth at bedtime tiZANidine (Zanaflex) 4 MG tablet Indications: Neck pain Take 1 tablet (4 mg) by mouth at bedtime 30 tablet 5 09/20/2024 Active Start: 09-20-2024 take 1 tablet by jaden th at bedtime tiZANidine (Zanaflex) 4 MG tablet Indications: Neck pain Take 1 tablet (4 mg) by mouth at bedtime 30 tablet 5 09/20/2024 Active Start: 06-14-2024 End: 09-20-2024 take 1 tablet by mouth at bedtime tiZANidine (Zanaflex) 4 MG tablet Indications: Neck pain Take 1 tablet (4 mg) by mouth at bedtime 30 tablet 2 06/14/2024 09/20/2024 Discontinued (Reorder) Start: 03-02-2024 take 1 tablet by jaden [...] BID, # 60 tab(s), Refills(s) 2, Pharmacy: [facility], 168, cm, 11/08/21 9:50:00 EDT, Height/Length Dosing, 65.4, kg, 11/08/21 9:50:00 EDT, Weight Dosing Start Date: 01/18/22 Status: Ordered Start: 11-23-2020 End: 08-02-2024 take 1 tablet by mouth twice daily valacyclovir 1 g Tab 1 gram = 1 tab(s), Oral, BID, # 60 tab(s), Refills(s) 2, Pharmacy: [facility], 168, cm, 07/11/20 8:27:00 EST, Height/Length Dosing, 64.1, kg, 07/11/20 8:27:00 EST, Weight Dosing Start Date: 11/23/20 Status: Ordered Start: 11-23-2020 take 1 tablet by jaden th twice daily valacyclovir 1 g Tab 1 gram = 1 tab(s), Oral, BID, # 60 tab(s), Refills(s) 2, Pharmacy: [facility] 5309, 168, cm, 07/11/20 8:27:00 EST, Height/Length Dosing, 64.1, kg, 07/11/20 8:27:00 EST, Weight Dosing Start Date: 11/23/20 Status: Ordered Completed/Discontinued Medications Medication Drug Class(es) Dates Sig (Normalized) Sig (Original) acetaminophen 325 mg / HYDROcodone bitartrate 5 mg oral tablet (2 sources) Opioid Agonist Start: 09-12-2017 End: 11-30-2019 take 1 tablet by mouth every four to six hours Hydrocodone-Acetami nophen ([place]) 5-325 mg tablet Discontinued 1 TAB PO EVERY 4-6 HOURS 30 September 12, 2017 November 30, 2019 9:37am Start: 09-04-2017 End: 09-12-2017 take 1 tablet by mouth once daily at bedtime Hydrocodone-Acetaminophen ([place]) 5-325 mg Tablet Discontinued 1 TAB PO [...] painful 07-18-2023 Episodic Other nervous system disorders (18 sources) Chronic pain; Translations: [Other chronic pain] [...] taste 03-31-2020 Episodic Other nervous system disorders (20 sources) Paresthesia; Translations: [Paresthesia of skin] 04-06-2024 [...] Onset: 4 Chronic Other upper respiratory disease (18 sources) Chronic pharyngitis; Translations: [Chronic pharyngitis] Onset: [...] Documented Date Episodic/Chronic Blindness and vision defects (15 sources) Diplopia; Translations: [Diplopia] Onset: 12-01-2018 10-08-2023 Episodic Malaise and fatigue (15 sources) Asthenia; Translations: [Weakness] Onset: 10-21-2023 10-21-2023 Episodic Other acquired deformities (2 sources) Spondylolisthesis, lumbosacral region; Translations: [Spondylolisthesis at L5-S1 level M43.17] Onset: 04-17-2021 Resolved: 12-28-2021 Episodic Other connective tissue disease (17 sources) Muscle pain; Translations: [Myalgia, unspecified site] Onset: 10-21-2023 04-06-2024 Episodic Other connective tissue disease (15 sources) Other symptoms and signs involving the musculoskeletal system; Translations: [Other musculoskeletal symptoms referable to limbs] Onset: 10-08-2023 10-08-2023 Episodic Other nervous system disorders (15 sources) Paresthesia of right upper limb; Translations: [Paresthesia of skin] Onset: 12-01-2018 10-08-2023 Episodic Other skin disorders (20 sources) Mass of neck; Translations: [Localized swelling, [...] Result Comment: Perf ormed at: [facility] [address] [id number] PhD Mahnaz Conklin Performed By: #### 2 [id number] #### [facility] [address] [place] [address] CHEMISTRYOrdered By: SYSTEM SYSTEM on 05-10-2024 Free T4 [Mass/Vol] 0.72 ng/dL Normal 0.58 - 1.64 ng/dL Remisol Chem TSH Qn 2.58 m[IU]/L Normal 0.34 - 5.60 mcIU/mL Remisol Chem Free T4on 05-10-2024 Free T4 [Mass/Vol] 0.72 ng/dL Normal 0.58-1.64 [facility] Comment on above: Performed By: #### 2 [id number] #### [facility] [address] [place] [address] TSHon 05-10-2024 TSH Qn 2.58 m[IU]/L Normal 0.34-5.60 [facility] Comment on above: Performed By: #### 2 [id number] #### [facility] [address] [place] [address] EMG 2 Extremitieson 03-08-20 EMG/ NCS BLE Mild right S1/S2 radiculopathy versus tibial motor neuropathy that is less likely [facility] NVC 9-10 Nerveson 03-08-2024 EMG/ NCS BLE Mild right S1/S2 radiculopathy versus tibial motor neuropathy that is less likely [facility] US Thyroidon 01-16-2024 US Thyroid Exam Date/Time: [...] Merrill [facility] Consenton 11-12-2023 Consent [id number]#1.00TIFF Normal [facility] Consent [id number]#1.00TIFF [facility] Family Medicine Office/Clini c Noteon 11-12-2023 [...] with voice recognition artificial intelligence software, specifically Brickstream, [employer] and or Sportmaniacs. Substitutions may have occurred due to the inherent limitations of voice recognition and artificial intelligence software. Documentation services were performed after patient or guardian consented to allow [employer] to record this visit. DEX deaf/hard of hearing specialist Perlita Dominguez and provider reviewed before [...] per year, 06/24/2023 Employment/School Employed, Work/School description: [employer] 02/01/2019 Home/Environment Lives with Children, Spouse., [...] on above: Result Comment: Perf ormed at: [facility] [id number] PhD Mahnaz Conklin Performed By: #### 2 643665, [id number], [id number] ####[facility] [address] [place] [address] CHEMISTRYOrdered By: SYSTEM SYSTEM on 10-21-2023 Free T4 [Mass/Vol] 0.65 ng/dL Normal 0.58 - 1.64 ng/dL Remisol Chem TSH Qn 4.41 m[IU]/L Normal 0.34 - 5.60 mcIU/mL Remisol Chem Consent for Treatmenton 09-23 Consent for Treatment [id number]#1.00TIFF Normal [facility] Free T4on 10-21-2023 Free T4 [Mass/Vol] 0.65 ng/dL Normal 0.58-1.64 [facility] Comment on above: Performed By: #### 2 121854, 1940599, [id number] ####[facility] [address] [place] [address] Physician Orderon 10-21-2023 Physician Order [id number]#1.00TIFF Normal [facility] TSHon 10-21-2023 TSH Qn 4.41 m[IU]/L Normal 0.34-5.60 [facility] Comment on above: Performed By: #### 2 651062, [id number], [id number] ####[facility] [address] [place] [address] Ambulatory Visit Summaryon 0 10-07-2023 Ambulatory Visit [...] urinary discomfort for bladder symptoms Pickup at [facility] Unchanged baclofen (baclofen 10 mg Tab) See [...] physician if questions or concerns Pharmacy Information [facility]: [address] [phone] Allergies Latex Tape (Rash) Problems Ongoing - [...] have a (more content not included)... Normal [facility] Family Medicine Office/Clini [...] two weeks, she has not utilized any rauk-zge-yihixsv or old antibiotics, nor has she utilized [...] week. She is seeing Dr. Mcghee in [place] for her thyroid. She has been trying [...] Urnls Dip Stick Auto w/o Microscopy POC 71407 2. Thyroiditis, subacute (E06.1: Subacute thyroiditis) Continue following with Dr. Mcghee in [place] for management of the methimazole. 3. Lumbar [...] symptoms, # 30 tab(s), Refills(s) 0, Pharmacy: [facility], 168, cm, 10/07/23 10:32:00 EDT, Height/Length Dosing, 61, kg, 10/07/23 10:32:00 EDT, Weight Dosing Portions of this record may have been created with voice recognition artificial intelligence software, specifically Brickstream, [employer] and or Sportmaniacs. Substitutions may have occurred due to the inherent limitations of voice recognition and artificial intelligence software. Follow-up With When Contact Information Nancy MCKNIGHT MD, FAM Only if needed Additional Instructions: [...] this condition includes: ? Antibiotic medicine. ? Zajz-dot-kquchyn medicines to treat discomfort. ? Drinking enough [...] these instructions at home: Medicines ? Take bgim-edg-dspvmfa and prescription medicines only as told by [...] above: Result Comment: Perf ormed at: [facility] [address] [id number] PhD Mahnaz Conklin Performed By: #### 2 744484, [id number], 4334426, 7500895, 3012121 ####[facility] [address] [place] [address] Thyrotropin Receptor Antibod y, Serumon 09-13-2023 TSH receptor Ab Qn (S) <1.10 Invalid Interpretation Code 0.00-1.75 [facility] Comment on above: Result Comment: Perf ormed at: [facility] [address] [id number] MD Enrico Dean Performed By: #### 2 146552, [id number], 1767840, 1056254, 9253842 ####[facility] [address] [place] [address] CHEMISTRYOrdered By: SYSTEM SYSTEM on 09-10-2023 Albumin [...] for Treatmenton 08-22 Consent for Treatment [id number]#1.00TIFF Normal [facility] Free T4on 09-10-2023 Free T4 [Mass/Vol] ng/dL Low 0.58-1.64 [facility] Comment on above: Performed By: #### 2 014643, [id number], 5899206, 2388332, 0696803 ####[facility] [address] [place] [address] Hep Func Panelon 09-10-2023 Albumin [Mass/Vol] 4.2 g/dL Normal 3.3-5.0 [facility] Comment on above: Performed By: #### 2 153444, [id number], 7327806, 3201480, 6960981 ####[facility] [address] [place] [address] Albumin/Globulin (S) [Mass conc ratio] 1.4 Normal 1.1-2.2 [facility] Comment on above: Performed By: #### 2 824786, [id number], 8158579, 3663320, 2592882 ####[address] [address] ALP [Catalytic activity/Vol] 66 Int._Unit/L Normal 21-98 [facility] Comment on above: Performed By: #### 2 917712, [id number], 1920450, 9273905, 8546686 ####[address] [address] ALT No additional P-5'-P [Catalytic activity/Vol] 14 Int._Unit/L Normal 6-46 [facility] Comment on above: Performed By: #### 2 346886, [id number], 6987709, 0392183, 7012475 ####[address] [address] AST [Catalytic activity/Vol] 22 Int._Unit/L Normal 5-43 [facility] Comment on above: Performed By: #### 2 210543, 1710168655, 0515628, 2468528, 9631430 ####[address] [address] Bilirubin [Mass/Vol] 0.5 mg/dL Normal 0.0-1.1 [facility] Comment on above: Performed By: #### 2 228259, 0560226981, 6083865, 0487439, 4932850 ####[address] [address] Bilirubin.direct [Mass/Vol] 0.1 mg/dL Normal 0.0-0.4 [facility] Comment on above: Performed By: #### 2 493190, [id number], 9513807, 3318715, 8925768 ####[facility] [address] [place] [address] Bilirubin.indirect [Mass or moles/Vol] 0.4 mg/dL Normal 0.1-0.9 [facility] Comment on above: Performed By: #### 2 936650, [id number], 7597691, 2640012, 3658798 ####[facility] [address] [place] [address] Globulin (S) [Mass/Vol] 3.0 g/dL Normal 1.4-4.0 [facility] Comment on above: Performed By: #### 2 425799, [id number], 0588133, 7061814, 2048415 ####[address] [place] [address] Protein [Mass/Vol] 7.2 g/dL Normal 6.0-7.8 [facility] Comment on above: Performed By: #### 2 993933, 1117663473, 3389348, 3695858, 2892901 ####[address] [place] [address] Physician Orderon 09-10-2023 Physician Order [id number]#1.00TIFF Normal [facility] TSHon 09-10-2023 TSH Qn 68.80 m[IU]/L High 0.34-5.60 [facility] Comment on above: Performed By: #### 2 865423, [id number], 2852616, 4092119, 7251894 ####[address] [place] [address] Consultation Noteon 08-12-19 Consultation Note [id number]#1.00TIFF Normal [facility] Insurance Correspondenceon 0 08-05-2023 Insurance Correspondence [id number]#1.00TIFF Normal [facility] Consultation Noteon 08-04-19 Consultation Note [id number]#1.00TIFF Normal [facility] .Thyroglobulin by RIAon 07-24 Thyroglobulin [Mass/Vol] 159 ng/mL High [facility] Comment on above: Result Comment: Conf irmed by dilution. This test was developed and its performance characteristics determined by [employer]. It has not been cleared or approved [...] quantitation limit is 2.0 ng/mL. Performed at: [facility] [address] [place] [id number] MD Yadiel Cornell Performed By: #### 7 [id number], 3169233, 39038149, 8479995, [id number], [id number] ####[facility] [address] [place] [address] T3 Reverseon 08-02-2023 T3.reverse [Mass/Vol] 31.2 ng/dL High 9.2-24.1 [facility] Comment on above: Result Comment: This test was developed and its performance characteristics determined by [facility]. It has not been cleared or approved by the Food and Drug Administration. Performed at: [address] [id number] MD Enrico Dean Performed By: #### 7 [id number], 0067834, 83759850, 3583987, [id number], [id number] ####[facility] [address] [place] [address] TgAb+Thyroglobulinon 024 Thyroglobulin Ab Qn 2.7 International_Unit /mL High 0.0-0.9 [facility] Comment on above: Result Comment: Thyr oglobulin Antibody measured by [employer] Performed at: [facility] [id number] PhD Mahnaz Conklin Performed By: #### 7 [id number], 8147466, 11779607, 9509161, 212014483, 81687981 ####[facility] [address] [place] [address] Thyroid Perox.tpo Abon 08-02 TPO Ab Qn [IU]/mL Invalid Interpretation Code 0-34 [facility] Comment on above: Result Comment: Perf ormed at: [facility] [address] [place], [place] [id number] PhD Mahnaz Conklin Performed By: #### 7 [id number], 7225878, 81314984, 5336747, [id number], [id number] ####[facility] [address] [place] [address] Family Medicine Office/Clini c Noteon 07-29-2023 Family [...] Soc zenaida Marina 07-28-2023 Interdisciplinary Note - [employer] Consultant This SW made a tc to patient [...] to contact the office should needs arise. ABDOULAYE will remain available. Normal [facility] [...] hormone level, Print Label By Order Location, [id number]\.br\ Echo Transthoracic Complete, 07/24/23, Routine, Order for future visit, Transport Mode: Ambulatory, Reason: Other (please specify), Reason: murmur, Heart murmur, pp_set_radiology_ subspecialty, [facility], [facility]\.br\ Medications\.br\ What How Much When Instructions\.br\ New propranolol (propranolol 10 mg Tab) 1 Tablets By Mouth Once Pickup at [facility]\.br\ Unchanged baclofen (baclofen 10 mg Tab) See [...] if questions or concerns \.br\ Pharmacy Information\.br\ [facility]: [address] [phone]\.br\ Allergies\.br\ Latex\.br\ Tape (Rash)\.br\ Problems\.br\ Ongoing - [...] Chem Clipboard Summaryon 07-18-19 24 Clipboard Summary {[id number] -[id number]}XML Normal [facility] Consent for Treatmenton 06-24 Consent for Treatment [id number]#1.00TIFF Normal [facility] Family Medicine [...] and had a biopsy on Friday at [facility], carried out by the radiology department interventional [...] Nonicteric sclera. Oropharynx pink and moist. Adequate quileute dentition. Anterior neck, there is a fullness [...] the pathology report on her phone from [facility] which indicates benign cellularity although admittedly [...] Comment on above: Performed By: #### 7 [id number], 6963519, 47036687, 1321266, [id number], [id number] #### [facility] [address] [place] [address] Patient Educationon 07-18-19 Patient Education Endocrinology Hyperthyroidism [...] Follow these instructions at home: ? Take wzzd-nnl-ruewmac and prescription medicines only as told by [...] Where to find more information ? National [place] of Diabetes and Digestive and Kidney Diseases: [...] Comment on above: Performed By: #### 7 [id number], 9020753, 93839562, 6064833, [id number], [id number] #### [facility] [address] [place] [address] Mata 07-14-2023 L Specimen: Received: 07/15/23 Status: DENA Hurtado Num: [id number] Spec Type: Cytology Subm Dr: MARTA PUENTE MD Tissues: A FNA SLIDES NOPATH (LT THYROID NOD) Procedures: Cyto Int and Re, PAPSTN/5 Age/ Patient Sex Location Account Attending Physician Jessica Griffiths 37/F [place] [id number] MARTA PUENTE MD SPEC NUM: [id number] RECD: 07/15/23 STATUS: DENA HURTADO NUM: [id number] KANCHAN: 07/14/23- SUBM DR: MARTA PUENTE MD ENTERED: 07/15/[address] [facility] [address]: Neno Lemons SPEC TYPE: Cytology DEPT: [facility] ENTERED BY: [id number] RECV BY: [id number] ORDERED: Cyto Int and Re, PAPSTN/5 ORDERED: Cyto Int and Re, PAPSTN/5 Pathological Diagnosis Left thyroid mid lobe nodule, FNA cytology: - Adequate but slightly limited for assessment - The [place] system is category 2: Benign - A [...] [id number] Received: 07/15/23 Status: DENA Bear Num: [id number] Spec Type: Cytology Subm Dr: MARTA PUENTE MD Tissues: A FNA SLIDES NOPATH (LT THYROID NOD) Procedures: Cyto Int and Re, PAPSTN/5 -- Patient: Jessica Griffiths [id number] (Continued) -- Specimen: [id number] Received: 07/15/23 (Continued) Signed (signatu re on file) Alfonso Correa MD 07/16/231122 -- Specimen: [id number]- Received: 07/15/23 Status: DENA Hurtado Num: [id number] Spec Type: Cytology Subm Dr: MARTA PUENTE MD Tissues: A FNA SLIDES NOPATH (LT THYROID NOD) Procedures: Cyto Int and Re, PAPSTN/5 -- Patient: Jessica Griffiths [id number] (Continued) -- Specimen: [id number]- Received: 07/15/23 (Continued) CPT Codes 71758 -- -- Specimen: [id number] Received: 07/15/23-1303 Status: DENA Hurtado Num: [id number] Spec Type: Cytology Subm Dr: MARTA PUENTE MD Tissues: A FNA SLIDES NOPATH (LT THYROID NOD) Procedures: Cyto Int and Re, PAPSTN/5 -- Patient: Jessica Griffiths [id number] (Continued) -- Signed (signatu re on file) Alfonso Correa MD 07/16/23 1123 [facility] [place] Thyroid Imaging w/ Uptk Angelito ortega [...] for Treatmenton 06-23 Consent for Treatment [id number]#1.00TIFF Normal [facility] Lipid Panelon 07-08-2023 Cholesterol [Mass/Vol] 145 mg/dL Normal 120-200 [facility] Comment on above: Performed By: #### 2 966361 ####[facility] [address] [place] [address] Cholesterol in HDL [Mass/Vol] 62 mg/dL Invalid Interpretation Code [facility] Comment on above: Result Comment: '>= 60 LOW RISK' '<= 40 HIGH RISK' Performed By: #### 2 279041 ####[facility] [address] [place] [address] Cholesterol in LDL [Mass/Vol] 76 mg/dL Normal <=129 [facility] Comment on above: Performed By: #### 2 509062 ####[facility] [address] [place] [address] Cholesterol in VLDL [Mass/Vol] 10 mg/dL Normal 7-40 [facility] Comment on above: Performed By: #### 2 729997 ####[facility] [address] [place] [address] Triglyceride [Mass/Vol] 52 mg/dL Normal <=149 [facility] Comment on above: Performed By: #### 2 253457 ####[facility] [address] [place] [address] UA With Cult Reflexon 2023 Bacteria LM Ql (Urine sed) 1+ /HPF Abnormal Trace [facility] Comment on above: Performed By: #### 1 0021929 ####[facility] [address] [place] [address] Bilirubin Ql (U) Negative Normal Negative [facility] Comment on above: Performed By: #### 1 6550878 ####[facility] [address] [place] [address] Clarity (U) CLEAR Normal Clear [facility] Comment on above: Performed By: #### 1 9991893 ####[facility] [address] [place] [address] Color (U) YELLOW Normal Yellow [facility] Comment on above: Performed By: #### 1 8793814 ####[facility] [address] [place] [address] Epithelial cells.squamous LM.HPF (Urine sed) [#/Area] /[HPF] Normal 0-2 [facility] Comment on above: Performed By: #### 1 6877456 ####[facility] [address] [place] [address] Glucose Test strip (U) [Mass/Vol] Negative Normal Negative [facility] Comment on above: Performed By: #### 1 9623921 ####[address] [address] Hemoglobin Ql (U) Negative Normal Negative [facility] Comment on above: Performed By: #### 1 6885442 ####[address] [address] Ketones (U) [Mass/Vol] TRACE Abnormal Negative [facility] Comment on above: Performed By: #### 1 9287995 ####[address] [address] Heeney.plasma/Lithi um.RBC (Bld) [Mass ratio] 0-3 Normal 0-3 [facility] Comment on above: Performed By: #### 1 2022772 ####[address] [address] Mucus Ql (Urine sed) 2+ Normal [facility] Comment on above: Performed By: #### 1 3918599 ####[address] [address] Nitrite Ql (U) Negative Normal Negative [facility] Comment on above: Performed By: #### 1 5436003 ####[address] [address] pH (U) 6.5 [pH] Invalid Interpretation Code 5.0-9.0 [facility] Comment on above: Performed By: #### 1 9979440 ####[address] [address] Protein (U) [Mass/Vol] Negative Normal Negative [facility] Comment on above: Performed By: #### 1 3536828 ####[address] [address] Specific gravity (U) [Rel density] 1.015 Invalid Interpretation Code 1.005-1.030 [facility] Comment on above: Performed By: #### 1 5445605 ####[facility] [address] [place] [address] Type of Urine collection method Clean Catch Normal [facility] Comment on above: Performed By: #### 1 8676363 ####[facility] [address] [place] [address] Urobilinogen Qn (U) 0.2 {Dylan'U}/dL Normal 0.0-1.0 [facility] Comment on above: Performed By: #### 1 3268593 ####[facility] [address] [place] [address] WBC Auto Ql (U) Negative Normal Negative [facility] Comment on above: Performed By: #### 1 6554822 ####[facility] [address] [place] [address] WBC LM.HPF (Urine sed) [#/Area] 0-5 Normal 0-5 [facility] Comment on above: Performed By: #### 1 2756239 ####[facility] [address] [place] [address] URINALYSISOrdered By: Jennifer morris on 07-08-2023 Bacteria [...] Interpretation Code Negative [facility] UA Auto SS Heeney.plasma/Lithi um.RBC (Bld) [Mass ratio] 0-3 /HPF Normal [...] FT UA Auto SS Urobilinogen Qn (U) 0.4720035 {Dylan'U}/dL Normal 0.0 - 1.0 EU/dL [facility] UA Auto SS WBC Auto Ql (U) Negative (07/08/23 7:42 AM) Normal Negative [facility] UA Auto SS WBC LM.HPF (Urine sed) [#/Area] 0-5 /HPF Normal 0-5/HPF [facility] UA Auto SS Insurance Correspondenceon 0 07-01-2023 Insurance Correspondence [id number]#1.00TIFF Normal [facility] Physician Referralon 024 Physician Referral [id number]#1.00TIFF [facility] Consent for Treatmenton Consent for Treatment [id number]#1.00TIFF [facility] US Thyroidon 06-27-2023 US Thyroid Exam [...] with voice recognition artificial intelligence software, specifically [employer], [employer] and or [employer]. Substitutions may have occurred due to the inherent limitations of voice recognition and artificial intelligence software. Documentation services were performed after patient or guardian consented to allow [employer] to record this visit. D (more content not included)... Normal [facility] Comment on above: Result Comment: Elec tronically Signed By: Matt Bass MD\.br\Date and Time Signed: 06/24/23 18:25 EST\.br\Electronically Co-Signed By: Jaja Alex\Janiebr\Date and Time Co-Signed: 06/24/23 18:04 EST T3 Freeon 06-22-2023 Free T3 [Mass/Vol] 4.2 pg/mL Invalid Interpretation Code 2.0-4.4 [facility] Comment on above: Result Comment: Perf ormed at: [facility] [address] [id number] PhD Mahnaz Conklin Performed By: #### 2 312583, 8111265, 1334471, 55243200 ####[facility] [address] [place] [address] Auto Diffon 06-21-2023 Basophils/100 WBC (Bld) 0.3 % Normal 0.0-2.0 [facility] Comment on above: Order Comment: Order Added by Discern Expert. Performed By: #### 1 6800495, 4317469, 9373688, 2397089, 7757564 #### [facility] [address] [place] [address] Basophils/Leukocytes Auto (Bld) [Pure # fraction] 0.0 E9/L Normal 0.0-0.2 [facility] Comment on above: Order Comment: Order Added by Discern Expert. Performed By: #### 1 4235750, 6839087, 9983403, 8654050, 2938175 #### [facility] [address] [place] [address] Eosinophils/100 WBC (Bld) 0.6 % Normal 0.0-8.0 [facility] Comment on above: Order Comment: Order Added by Discern Expert. Performed By: #### 1 2846340, 1381780, 8063127, 0731004, 7016204 #### [facility] [address] [place] [address] Eosinophils/Leukocyt es Auto (Bld) [Pure # fraction] 0.0 E9/L Normal 0.0-0.5 [facility] Comment on above: Order Comment: Order Added by Discern Expert. Performed By: #### 1 9060021, 5420006, 3870580, 9011090, 0659953 #### [facility] [address] [place] [address] Lymphocytes/100 WBC (Bld) 20.6 % Normal 14.0-50.0 [facility] Comment on above: Order Comment: Order Added by Discern Expert. Performed By: #### 1 1055580, 2183186, 1659167, 9227960, 6214037 #### [facility] [address] [place] [address] Lymphocytes/Leukocyt es Auto (Bld) [Pure # fraction] 1.7 E9/L Normal 1.0-4.0 [facility] Comment on above: Order Comment: Order Added by Jay Expert. Performed By: #### 1 8731769, 4053736, 4775557, 7761340, 6322053 #### [facility] [address] [place] [address] Monocytes/100 WBC (Bld) 6.6 % Normal 4.0-14.0 [facility] Comment on above: Order Comment: Order Added by Jay Expert. Performed By: #### 1 9602751, 5417594, 2066796, 7391658, 6546203 #### [facility] [address] [place] [address] Monocytes/Leukocytes Auto (Bld) [Pure # fraction] 0.5 E9/L Normal 0.2-1.0 [facility] Comment on above: Order Comment: Order Added by Discern Expert. Performed By: #### 1 0743418, 5281671, 7258848, 0574093, 7700633 #### [facility] [address] [place] [address] Neutrophils/100 WBC (Bld) 71.9 % Normal 36.0-75.0 [facility] Comment on above: Order Comment: Order Added by Jay Expert. Performed By: #### 1 0440125, 2071010, 6852921, 5647097, 4599466 #### [facility] [address] [place] [address] Neutrophils/Leukocyt es Auto (Bld) [Pure # fraction] 5.8 E9/L Normal 2.0-7.5 [facility] Comment on above: Order Comment: Order Added by Discern Expert. Performed By: #### 1 3178472, 6427784, 2625470, 0577913, 1594042 #### [facility] [address] [place] [address] CBC w/ Auto Diffon 3 Erythrocyte distribution width (RBC) [Ratio] 12.6 % Normal 10.9-14.2 [facility] Comment on above: Performed By: #### 1 0908308, 7035484, 6599101, 4210874, 9877229 #### [facility] [address] [place] [address] Hematocrit (Bld) [Volume fraction] 37.8 % Normal 34.0-46.0 [facility] Comment on above: Performed By: #### 1 7473417, 9266753, 4797013, 2210816, 9283194 #### [facility] [address] [place] [address] Hemoglobin (Bld) [Mass/Vol] 12.7 g/dL Normal 12.0-16.0 [facility] Comment on above: Performed By: #### 1 3929424, 6785613, 4394485, 1569486, 0158534 #### [facility] [address] [place] [address] MCH (RBC) [Entitic mass] 32.2 pg Normal 27.0-34.0 [facility] Comment on above: Performed By: #### 1 6176005, 5366010, 0439548, 6896005, 5024688 #### [facility] [address] [place] [address] MCHC (RBC) [Mass/Vol] 33.8 g/dL Normal 31.4-36.0 [facility] Comment on above: Performed By: #### 1 1648642, 2147419, 6516493, 3299086, 0779209 #### [facility] [address] [place] [address] MCV (RBC) [Entitic vol] 95.5 fL Normal 80.0-100.0 [facility] Comment on above: Performed By: #### 1 4796997, 5784192, 1203627, 3716542, 8772413 #### [facility] [address] [place] [address] Platelet mean volume (Bld) [Entitic vol] 8.5 fL Normal 6.4-10.8 [facility] Comment on above: Performed By: #### 1 5076692, 9817994, 1444711, 1905601, 8108358 #### [facility] [address] [place] [address] Platelets (Bld) [#/Vol] 303.0 E9/L Normal 150.0-500.0 [facility] Comment on above: Performed By: #### 1 5039610, 5414426, 9669201, 0040741, 0060610 #### [facility] [address] [place] [address] RBC (Bld) [#/Vol] 4.0 E12/L Low 4.3-5.9 [facility] Comment on above: Performed By: #### 1 7530040, 2496540, 3585265, 9023386, 9142392 #### [facility] [address] [place] [address] WBC corrected for nucl RBC Auto (Bld) [#/Vol] 8.1 E9/L Normal 4.0-11.0 [facility] Comment on above: Performed By: #### 1 8995587, 5287812, 9502530, 5457053, 1151660 #### [facility] [address] [place] [address] CHEMISTRYOrdered By: SYSTEM SYSTEM on 06-21-2023 Albumin [...] Comment on above: Performed By: #### 1 1855924, 6025156, 0413221, 0736197, 3243112 #### [facility] [address] [place] [address] Albumin/Globulin [Mass ratio] 1.3 {ratio} Normal 1.1-2.2 [facility] Comment on above: Performed By: #### 1 7365601, 7152655, 9567355, 7916772, 8670221 #### [facility] [address] [place] [address] Alk Phos 83 Int._Unit/L Normal 21-98 [facility] Comment on above: Performed By: #### 1 2363830, 7248371, 6084440, 6909200, 4703494 #### [facility] [address] [place] [address] ALT 10 Int._Unit/L Normal 6-46 [facility] Comment on above: Performed By: #### 1 0752959, 7134655, 0120449, 6323739, 2798372 #### [facility] [address] [place] [address] Anion gap [Moles/Vol] 10 mmol/L Normal 6-16 [facility] Comment on above: Performed By: #### 1 1682406, 2814189, 5210561, 0500678, 1464944 #### [facility] [address] [place] [address] AST 15 Int._Unit/L Normal 5-43 [facility] Comment on above: Performed By: #### 1 2339624, 4561688, 6717149, 9397146, 7307318 #### [facility] [address] [place] [address] Bili Total 0.5 mg/dL Normal 0.0-1.1 [facility] Comment on above: Performed By: #### 1 2223516, 8165798, 4146290, 2666057, 7196175 #### [facility] [address] [place] [address] BUN/Creat Ratio 22 No Units High 10-20 [facility] Comment on above: Performed By: #### 1 2302639, 9957386, 6303824, 9153720, 1016413 #### [facility] [address] [place] [address] Calcium [Mass/Vol] 8.7 mg/dL Low 8.9-11.1 [facility] Comment on above: Performed By: #### 1 6763182, 9590988, 3464949, 4079081, 6237810 #### [facility] [address] [place] [address] Chloride [Moles/Vol] 103 mmol/L Normal 101-111 [facility] Comment on above: Performed By: #### 1 7254536, 7289976, 9297631, 8544664, 8570519 #### [facility] [address] [place] [address] CO2 [Moles/Vol] 29 mmol/L Normal 21-31 [facility] Comment on above: Performed By: #### 1 8742535, 7913942, 8420550, 6118932, 1427504 #### [facility] [address] [place] [address] Creatinine [Mass/Vol] 0.6 mg/dL Normal 0.5-1.3 [facility] Comment on above: Performed By: #### 1 6559479, 4296415, 6435768, 2950016, 3702863 #### [facility] [address] [place] [address] Globulin (S) [Mass/Vol] 3.0 g/dL Normal 1.4-4.0 [facility] Comment on above: Performed By: #### 1 7200332, 5430668, 8625341, 0650377, 9219508 #### [facility] [address] [place] [address] Glucose [Mass/Vol] 84 mg/dL Normal 55-199 [facility] Comment on above: Performed By: #### 1 0798472, 5419798, 3349579, 9378514, 0409236 #### [facility] [address] [place] [address] Potassium [Moles/Vol] 3.9 mmol/L Normal 3.5-5.3 [facility] Comment on above: Performed By: #### 1 5491567, 0193502, 8994444, 9966579, 8072235 #### [facility] [address] [place] [address] Protein [Mass/Vol] 6.8 g/dL Normal 6.0-7.8 [facility] Comment on above: Performed By: #### 1 2216887, 4138507, 2893498, 3837046, 3708373 #### [facility] [address] [place] [address] Sodium [Moles/Vol] 138 mmol/L Normal 135-145 [facility] Comment on above: Performed By: #### 1 2936308, 9197731, 3050604, 6264528, 4217946 #### [facility] [address] [place] [address] Urea nitrogen [Mass/Vol] 13 mg/dL Normal 5-21 [facility] Comment on above: Performed By: #### 1 0658333, 4352273, 1951246, 9178656, 2084749 #### [facility] [address] [place] [address] Consent for Treatmenton 05-25 Consent for Treatment [id number]#1.00TIFF Normal [facility] Free T4on 06-21-2023 Free T4 [Mass/Vol] 1.37 ng/dL Normal 0.58-1.64 [facility] Comment on above: Performed By: #### 1 7608710, 4048306, 8075880, 5430184, 6655833 #### [facility] [address] [place] [address] HEMATOLOGYOrdered By: SYSTEM SYSTEM on 06-21-2023 Basophils/100 [...] 8.1 E9/L Normal 4.0 - 11.0 E9/L [facility] HemeAutoSS Physician Orderon 06-21-2023 Physician Order [id number]#1.00TIFF Normal [facility] T3 Uptakeon 06-21-2023 T3 Uptake 46.6 % Normal 32.0-48.4 [facility] Comment on above: Performed By: #### 2 322989, 8604449, 6661740, 57316834 ####[facility] [address] [place] [address] T4 Totalon 06-21-2023 T4 18.8 microgram/dL High 4.6-9.1 [facility] Comment on above: Performed By: #### 2 263440, 8127084, 8781405, 54224036 ####[facility] [address] [place] [address] TSHon 06-21-2023 TSH Qn 0.07 m[IU]/L Low 0.34-5.60 [facility] Comment on above: Performed By: #### 2 954764, 1825260, 9149305, 98918981 ####[facility] [address] [place] [address] eGFRon 06-21-2023 GFR/1.73 sq M.predicted among non-blacks MDRD (S/P/Bld) [Vol rate/Area] mL/min/{1.73_m2} Normal >=59 [facility] Comment on above: Order Comment: Order added by Discern Expert. Performed By: #### 1 8516467, 3499393, 9106707, 8716357, 7144977 #### [facility] [address] [place] [address] Family Medicine Office/Clini c Noteon 06-20-2023 Family [...] with voice recognition software. Occasional wrong-word or ?fgtke-x-bbjx? substitutions may have occurred due to the [...] know she has been working with her BAROMETERS CALIBRATOR in regards to blood test and lab [...] lost some weight. But again is seeing BAROMETERS CALIBRATOR in regards to these fluctuations denies any [...] weeks. Home care treatment may include: ? Vomr-bnc-locdmvs pain relievers. ? A warm, moist cloth placed over the ear. Severe cases may require a procedure to insert tubes in the ears (tympanostomy tubes) to drain the fluid. Follow these instructions at home: ? Take cyqi-pna-mmmoreq and prescription medicines only as told by [...] provider. Document Revised: 10/04/2021 Document Reviewed: 10/04/2021 [employer] Patient Education ? 2022 [employer]. Endocrinology Thyroid Nodule A thyroid nodule is [...] or hyperthy (more content not included)... Normal [facility] MRI Spine Cervical w/o Contr elvira [...] for Treatmenton 05-23 Consent for Treatment [id number]#1.00TIFF Normal [facility] RAD - MRI Screening Formon 1 08-10-2022 RAD - MRI Screening Form [id number]#1.00TIFF Normal [facility] Physician Orderon 06-03-2023 Physician Order [id number]#1.00TIFF Normal [facility] CHEMISTRYOrdered By: [...] Not detected Invalid Interpretation Code Not Detected [facility] [employer] Comment on above: Result Comment: This nucleic acid amplification test was developed and its performance characteristics determined by [employer]. Nucleic acid amplification tests include RT-PCR and [...] result in this assay. Performed at: [address] [id number] PhD Mahnaz Conklin Vital Signs Date Time Vital Sign Value Performing Clinician Facility 09-20-2024 08:29-0400 Body height 167.6 cm Petra Calle CANOE INSPECTOR FINAL Work Phone: [facility] 09-20-2024 08:29-0400 Body mass index (BMI) [Ratio] 21.63 kg/m2 Petra Calle CANOE INSPECTOR FINAL Work Phone: [facility] 09-20-2024 08:29-0400 Body weight 60.78 kg Petra Calle CANOE INSPECTOR FINAL Work Phone: [facility] 09-20-2024 08:29-0400 Diastolic blood pressure 78 mm[Hg] Petra Calle CANOE INSPECTOR FINAL Work Phone: [facility] 09-20-2024 08:29-0400 Heart rate 65 /min Petra Gillmor CANOE INSPECTOR FINAL Work Phone: [facility] 09-20-2024 08:29-0400 SaO2% (BldA) [Mass fraction] 96 % Petra Gillmor CANOE INSPECTOR FINAL Work Phone: [facility] 09-20-2024 08:29-0400 Systolic blood pressure 122 mm[Hg] Petra Jennifermor CANOE INSPECTOR FINAL Work Phone: [facility] 08-02-2024 11:32-0500 Body mass index (BMI) [Ratio] 21.47 kg/m2 Kraig Goodman MD Work Phone: [facility] 08-02-2024 11:32-0500 Body weight 60.33 kg Kraig Goodman MD Work Phone: [facility] 08-02-2024 11:32-0500 Diastolic blood pressure 68 mm[Hg] Kraig Goodman MD Work Phone: [facility] 08-02-2024 11:32-0500 Systolic blood pressure 102 mm[Hg] Kraig Goodman MD Work Phone: [facility] 04-06-2024 08:21-0400 Body height 167.6 cm Petra Pillair CANOE INSPECTOR FINAL Work Phone: [facility] 04-06-2024 08:21-0400 Body mass index (BMI) [Ratio] 21.63 kg/m2 Petra Jennifermor CANOE INSPECTOR FINAL Work Phone: [facility] 04-06-2024 08:21-0400 Body weight 60.78 kg Petra Gillmor CANOE INSPECTOR FINAL Work Phone: [facility] 04-06-2024 08:21-0400 Diastolic blood pressure 76 mm[Hg] Petra Jennifermor CANOE INSPECTOR FINAL Work Phone: [facility] 04-06-2024 08:21-0400 Heart rate 76 /min Petra Jennifermor CANOE INSPECTOR FINAL Work Phone: [facility] 04-06-2024 08:21-0400 SaO2% (BldA) [Mass fraction] 98 % Petra Jennifermor CANOE INSPECTOR FINAL Work Phone: [facility] 04-06-2024 08:21-0400 Systolic blood pressure 118 mm[Hg] Petra Alva CANOE INSPECTOR FINAL Work Phone: [facility] 03-01-2024 08:30-0400 Body height 167.6 cm Marta Puente MD Work Phone: [facility] 03-01-2024 08:30-0400 Body mass index (BMI) [Ratio] 21.79 kg/m2 Marta Puente MD Work Phone: [facility] 03-01-2024 08:30-0400 Body weight 61.24 kg Marta Puente MD Work Phone: [facility] 03-01-2024 08:30-0400 Diastolic blood pressure 69 mm[Hg] Marta Puente MD Work Phone: [facility] 03-01-2024 08:30-0400 Systolic blood pressure 100 mm[Hg] Marta Puente MD Work Phone: [facility] 11-12-2023 12:45-0400 Blood Pressure Location Matt Gudimella [facility] 11-12-2023 12:45-0400 Diastolic blood pressure 76 mm[Hg] Mtat Gudimella [facility] 11-12-2023 12:45-0400 Heart rate 72 /min Matt Gudimella [facility] 11-12-2023 12:45-0400 SaO2% (BldA) [Mass fraction] 99 % Matt Gudimella [facility] 11-12-2023 12:45-0400 Systolic blood pressure 116 mm[Hg] Matt Gudimella [facility] 10-07-2023 10:22-0400 Blood Pressure Location Nancy MCKNIGHT [facility] 10-07-2023 10:22-0400 Body temperature 97.88 [degF] Nancy MCKNIGHT [facility] 10-07-2023 10:22-0400 Diastolic blood pressure 76 mm[Hg] Nancy MCKNIGHT [facility] 10-07-2023 10:22-0400 Heart rate 66 /min Nancy MCKNIGHT [facility] 10-07-2023 10:22-0400 Respiratory rate 16 /min Nancy MCKNIGHT [facility] 10-07-2023 10:22-0400 SaO2% (BldA) [Mass fraction] 100 % Nancy MCKNIGHT [facility] 10-07-2023 10:22-0400 Systolic blood pressure 116 mm[Hg] Nancy MCKNIGHT [facility] 08-04-2023 11:27-0500 Body height 167.6 cm Marta Punete MD Work Phone: [facility] 08-04-2023 11:27-0500 Body mass index (BMI) [Ratio] 21.14 kg/m2 Marta Puente MD Work Phone: [facility] 08-04-2023 11:27-0500 Body weight 59.42 kg aMrta Puente MD Work Phone: [facility] 08-04-2023 11:27-0500 Diastolic blood pressure 81 mm[Hg] Marta Puente MD Work Phone: [facility] 08-04-2023 11:27-0500 Systolic blood pressure 111 mm[Hg] Marta Puente MD Work Phone: [phone] [place] [address] 07-24-2023 13:41-0500 Blood Pressure Location Matt Gudimella [facility] 07-24-2023 13:41-0500 Diastolic blood pressure 70 mm[Hg] Matt Gudimella [facility] 07-24-2023 13:41-0500 Heart rate 86 /min Matt Gudimella [facility] 07-24-2023 13:41-0500 SaO2% (BldA) [Mass fraction] 98 % Matt Gudimella [facility] 07-24-2023 13:41-0500 Systolic blood pressure 106 mm[Hg] Matt Gudimella [facility] 07-18-2023 16:16-0500 Blood Pressure Location Christopher BROWN [facility] 07-18-2023 16:16-0500 Diastolic blood pressure 60 mm[Hg] Christopher BROWN [facility] 07-18-2023 16:16-0500 Heart rate 92 /min Christopher BROWN [facility] 07-18-2023 16:16-0500 Respiratory rate 16 /min Christopher BROWN [facility] 07-18-2023 16:16-0500 SaO2% (BldA) [Mass fraction] 98 % Christopher BROWN [facility] 07-18-2023 16:16-0500 Systolic blood pressure 90 mm[Hg] Christopher BROWN [facility] 06-24-2023 13:49-0500 Blood Pressure Location Matt Gudimella [facility] 06-24-2023 13:49-0500 Diastolic blood pressure 72 mm[Hg] Matt Gudimella [facility] 06-24-2023 13:49-0500 Heart rate 89 /min Matt Gudimella [facility] 06-24-2023 13:49-0500 SaO2% (BldA) [Mass fraction] 97 % Matt Gudimella [facility] 06-24-2023 13:49-0500 Systolic blood pressure 98 mm[Hg] Matt Gudimella [facility] 06-20-2023 18:43-0500 Blood Pressure Location Filiberto Cramer [facility] 06-20-2023 18:43-0500 Body temperature 98.06 [degF] Filiberto Manuelpsey [facility] 06-20-2023 18:43-0500 Diastolic blood pressure 76 mm[Hg] Filiberto Manuelpsey [facility] 06-20-2023 18:43-0500 Heart rate 96 /min Filiberto Manuelpsey [facility] 06-20-2023 18:43-0500 SaO2% (BldA) [Mass fraction] 98 % Filiberto Manuelpsey [facility] 06-20-2023 18:43-0500 Systolic blood pressure 122 mm[Hg] Filiberto Manuelpsey [facility] 12-28-2021 11:20-0400 Body height 167.64 cm Ric Tinoco Other [facility] Other 12-28-2021 11:20-0400 Body mass index (BMI) [Ratio] 21.14 kg/m2 Ric Tinoco Other [facility] Other 12-28-2021 11:20-0400 Body weight 59.42 kg Ric Tinoco Other [facility] Other 04-17-2021 15:40-0400 Body height 167.64 cm Ric Tinoco Other [facility] Other 04-17-2021 15:40-0400 Body mass index (BMI) [Ratio] 21.14 kg/m2 Ric Tinoco Other [facility] Other 04-17-2021 15:40-0400 Body weight 59.42 kg Ric Tinoco Other [facility] Other 05-31-2020 15:50-0500 Body weight 63.96 kg [facility] [place] [facility]-31-2020 15:50-0500 BP Diastolic 79 mm[Hg] [facility] [place] 05-31-2020 15:50-0500 BP Systolic 107 mm[Hg] [facility] [place] 05-31-2020 15:50-0500 Pulse (Heart Rate) 67 /min [facility] [place] 05-31-2020 15:50-0500 Pulse Oximetry 100 % [facility] , [place] 05-31-2020 15:50-0500 Respiratory Rate 20 /min [employer] [place], [place] Encounters Encounter Date Encounter Type Care Provider Facility Start: 09-20-2024 End: 09-20-2024 Monae Calle NP Work Phone: [facility] Start: 09-20-2024 End: 09-20-2024 Bamboo flowsheet Petra Calle [employer] Work Phone: [facility] Start: 09-20-2024 End: 09-20-2024 Office outpatient visit 15 minutes Petra Calle [employer] Work Phone: [facility] Comment on above: Migraine without aur a and without status migrainosus, not intractable (CMS/HCC) (Primary Dx); Neck pain; Paresthesias Start: 08-23-2024 End: 08-23-2024 ambulatory Suzie Alegria MD Facility: [facility] Start: 08-02-2024 End: 08-02-2024 Bamboo flowsheet Kraig Goodman MD Work Phone: [facility] Start: 08-02-2024 End: 08-02-2024 Bamboo flowsheet Kraig Goodman MD Work Phone: [facility] Start: 08-02-2024 End: 08-02-2024 Office outpatient visit 25 minutes Kraig Goodman MD Work Phone: [facility] Comment on above: Menopausal symptoms; Vaginal Pap smear; Screening for HPV (human papillomavirus); Other screening mammogram Start: 08-02-2024 End: 08-02-2024 ambulatory KRAIG GOODMAN Not Available Start: 08-02-2024 End: 08-02-2024 ambulatory Suzie Alegria MD Facility: [facility] Start: 07-21-2024 End: 07-21-2024 Telephone encounter Kraig Goodman MD Work Phone: [facility] Start: 05-22-2024 End: 05-24-2024 Refill Kraig Goodman MD Work Phone: [facility] Comment on above: Menopausal symptoms Start: 05-10-2024 End: 05-10-2024 ambulatory SUHAS MCGHEE Facility:[facility] Start: 05-10-2024 End: 05-10-2024 Patient encounter procedure SUHAS MCGHEE [facility] Start: 04-06-2024 End: 04-06-2024 ambulatory PETRA GILLJAYLA Not Available Start: 04-06-2024 End: 04-06-2024 Office outpatient visit 15 minutes Petra Calle [employer] Work Phone: [facility] Comment on above: Cervical radiculopat hy (Primary Dx); Lumbosacral radiculopathy; Paresthesias; Migraine without aura and without status migrainosus, not intractable ([facility]); Myalgia Start: 04-05-2024 End: 04-05-2024 ambulatory Suzie Alegria MD Facility:[facility] Start: 03-29-2024 End: 03-29-2024 ambulatory Suzie Alegria MD Facility:[facility] Start: 03-08-2024 End: 03-08-2024 Bamboo flowsheet Edwin [...] Bamboo flowsheet Marta Puente MD Work Phone: [facility] Start: 03-01-2024 End: 03-01-2024 Bamboo flowsheet Marta Puente MD Work Phone: [facility] Start: 03-01-2024 End: 03-01-2024 Office outpatient visit 15 minutes Marta Puente MD Work Phone: [facility] Comment on above: Mass of thyroid nadir on (Primary Dx) Start: 03-01-2024 End: 03-01-2024 ambulatory MARTA Michele CINDI Not Available Start: 01-13-2024 End: 01-13-2024 ambulatory Marta H Roldanlamjuan pablo Facility:[facility] Start: 01-13-2024 End: 01-13-2024 Patient encounter procedure Marta Puente [facility] Start: 11-12-2023 End: 11-12-2023 ambulatory Matt Kali Facility:[facility] Start: 11-12-2023 End: 11-12-2023 [facility] Start: 10-21-2023 End: 10-21-2023 Patient encounter procedure CLARKD Charley SUMI [facility] Start: 10-21-2023 End: 10-21-2023 ambulatory MARIELENAD Charley SUMI Facility:[facility] Start: 10-07-2023 End: 10-07-2023 ambulatory Nancy MCKNIGHT Facility:[facility] Start: 10-07-2023 End: 10-07-2023 Patient encounter procedure Nancy MCKNIGHT [facility] Start: 09-10-2023 End: 09-10-2023 [facility] Start: 09-10-2023 End: 09-10-2023 Patient encounter procedure AHMAD F SUMI [facility] Start: 08-04-2023 Bamboo flowsheet Marta rubio MD Work Phone: [facility] Start: 08-04-2023 Bamboo flowsheet [facility]io MD [facility] Start: 08-04-2023 End: 08-04-2023 Office outpatient visit 15 minutes Marta Puente MD [facility] Comment on above: Mass of thyroid nadir on (Primary Dx); Hyperthyroidism (CMS/HCC) Start: 08-04-2023 End: 08-04-2023 ambulatory MARTA PUENTE Not Available Start: 07-29-2023 ambulatory [facility] ity:[facility] Start: 07-24-2023 End: 07-24-2023 ambulatory Matt Gudimelnd Facility:[facility] Start: 07-24-2023 End: 07-24-2023 Patient encounter procedure Matt Gudimella [facility] Start: 07-18-2023 End: 07-18-2023 ambulatory Nancy [facility] Facility:[facility] Start: 07-18-2023 End: 07-18-2023 Patient encounter procedure Nancy MCKNIGHT [facility] Start: 07-18-2023 End: 07-18-2023 ambulatory Matt Swapnand Facility:[facility] Start: 07-18-2023 End: 07-18-2023 Patient encounter procedure Matt Gudimella [facility] Start: 07-14-2023 End: 07-14-2023 ambulatory MD Ruben Mcknight Work Phone: [facility] Work Phone: Start: 07-14-2023 End: 07-14-2023 Departed Referred MD Ruben Mcknight Work Phone: [facility] Start: 07-08-2023 End: 10-07-2023 ambulatory Matt Gudimella Facility:[facility] Start: 07-08-2023 End: 10-07-2023 Recurring Matt Gudimella [facility] Start: 06-27-2023 ambulatory Matt Gudimella Facilit y:[facility] Start: 06-27-2023 End: 06-27-2023 ambulatory Matt Gudimella Facility:[facility] Start: 06-27-2023 End: 06-27-2023 Patient encounter procedure Matt Gudimella [facility] Start: 06-24-2023 End: 06-24-2023 ambulatory Matt Gudimella Facility:[facility] Start: 06-24-2023 End: 06-24-2023 Patient encounter procedure Matt Gudimella [facility] Start: 06-21-2023 End: 06-21-2023 ambulatory Filiberto Cramer Facility:[facility] Start: 06-21-2023 End: 06-21-2023 Patient encounter procedure Filiberto Cramer [facility] Start: 06-20-2023 End: 06-20-2023 ambulatory Filiberto Cramer Facility:[facility] Start: 06-20-2023 End: 06-20-2023 Patient encounter procedure Filiberto Cramer [facility] Start: 06-09-2023 End: 06-09-2023 ambulatory Narendranath Lakshmipathy Facility:[facility] Start: 06-09-2023 End: 06-09-2023 Patient encounter procedure Narendranath Lakshmipathy [facility] Start: 04-28-2023 End: 04-28-2023 Patient encounter procedure EBER POTTS [facility] Start: 11-05-2022 End: 11-06-2022 ambulatory SHARONA VASQUEZ . Facility:[facility] Start: 10-22-2022 End: 10-22-[address] DOCTOR ALEJANDRE Facility:[facility] Start: 10-01-2022 End: 10-02-2022 ambulatory ISAURA KELLY . Facility:[facility] Start: 08-27-2022 End: 08-27-2022 ambulatory Ric Tinoco [facility] Other Start: 08-27-2022 Telephone encounter Ric Tinoco [facility] Start: 06-11-2022 End: 06-12-[address] HERB RIVERO . Facility:[facility] Start: 05-28-2022 End: 05-28-[address] HERB RIVERO . Facility:[facility] Start: 03-05-2022 End: 03-06-[address] HERB RIVERO . Facility:[facility] Start: 12-28-2021 End: 12-28-2021 ambulatory Ric Tinoco [facility] Other Start: 12-28-2021 Office outpatient vi sit 15 minutes Ric Tinoco [facility] Start: 12-03-2021 End: 12-03-2021 Patient encounter procedure Kraig Goodman [facility] Start: 11-08-2021 End: 11-09-[address] HERB RIVERO . Facility:[facility] Start: 07-13-2021 End: 10-11-2021 Patient encounter procedure Nancy MCKNIGHT [facility] Start: 04-17-2021 Office outpatient vi sit 15 minutes Ric Tinoco [facility] Start: 05-31-2020 End: 05-31-2020 Emergency department patient visit KATHY GHOSH [facility] Start: 05-31-2020 End: 05-31-2020 Emergency department patient visit Kathy Ghosh Work Phone: [facility] ED Comment on above: Chest wall pain (Brunilda michelet Dx) Start: 12-30-2018 End: 01-07-2019 Patient encounter procedure PROVIDER UNKNOWN Facility:[facility] Procedures Date Procedure Procedure Detail Performing Clinician Start: 03-08-2024 End: 03-08-2024 Needle emg ea extremty w/paraspinl area complete Edwin Ralf DO Work Phone: Start: 07-14-2023 Fine biopsy needle, device (physical object) Nancy MCKNIGHT Comment on above: thyroid nodule Start: 06-18-2021 Mammography Petra cardoza [employer]OE INSPECTOR FINAL Work Phone: Start: 06-12-2020 Local anesthetic sac ral epidural block Nancy MCKNIGHT Comment on above: @ [facility] per pain mgmt Start: 05-31-2020 Ecg routine ecg w/le ast 12 lds w/i&r KATHY GHOSH Start: 05-31-2020 Ecg routine ecg w/le ast 12 lds w/i&r Kathy Ghosh Work Phone: Start: 12-06-2019 Interbody fusion of lumbar spine by anterior approach Nancy MCKNIGHT Comment on above[place] [facility] Start: 06-19-2018 Removal of sebaceous cyst Nancy MCKNIGHT Comment on above: Right inner thigh Start: 06-23-2006 Augmentation mammoplasty Nancy MCKNIGHT H/O: hysterectomy S/P laparoscop ic hysterectomy MD Ruben Mcknight Work Phone: laparoscopy 4 [facility] Comment on above: 2014 Dr. Redd- endo metriosis laparoscopy 5 Nancy [facility] Comment on above: 2014 Dr. Redd- endo metriosis lumbar microdisectomy 5 Rex MCKNIGHT Comment on above: 10/2017 Dr. Barnes @ [facility] lumbar microdisectomy 6 Rex MCKNIGHT Comment on above: 10/2017 Dr. Barnes @ [facility] 6 Nancy [facility] Comment on above: [...] above: Expected: 07/15/2025 , Expires: 09/30/2025 Start: 03-21-2025 End: 03-21-2025 Patient encounter procedure 03/21/2025 8:20 AM EDT Office Visit [facility] [address] [place] [address] Petra Calle NP [address] [place] [address] [facility] Start: 09-20-2024 End: 09-20-2024 Patient encounter procedure [facility] Start: 2024 Screening for malignant neoplasm of breast Mammogram [facility] Start: 08-02-2024 End: 08-02-2024 Patient encounter procedure [facility] Comment on above: Arrived Start: 04-28-2024 End: 04-28-2024 Patient encounter procedure 04/28/2024 9:40 AM EST Office Visit [facility] [address] [place] [address] Suhas Mcghee MD [address] [place] [address] [facility] Start: 04-06-2024 End: 04-06-2024 Patient encounter procedure 04/06/2024 8:20 AM EDT Office Visit [facility] [address] [place] [id number] Petra Calle, CANOE INSPECTOR FINAL [address] [place] [address] [facility] Start: 03-08-2024 End: 03-08-2024 Patient encounter procedure [facility] Comment on above: Arrived Start: 03-01-2024 End: 03-01-2024 Patient encounter procedure 03/01/2024 8:30 AM EDT Office Visit [facility] [address] [place] [address] Marta Puente MD [address] [facility] [address] [place], [place] [id number] Arrived [facility] Comment on above: Arrived Start: 02-22-2024 Influenza vaccination Influenza Vacc ine (#1) [facility] Start: 08-04-2023 End: 08-04-2023 Patient encounter procedure 08/04/2023 11:20 AM EST Office Visit [facility] [address] [place] [address] Marta Puente MD [address] [facility] [address] [place] [address] Arrived [facility] Comment on above: Arrived Start: 02-21-2023 Influenza vaccination Influenza Vacc ine (#1) [facility] Start: 02-22-2020 Influenza vaccination Flu vaccine (# 1) [place], [place] Start: 2005 Screening for malignant neoplasm of cervix Pap Smear [facility] EKG 12 Lead EKG 12 Lead ECG STAT 05/31/2020 4:01 PM EST [place], [place] IGP, APT HPV,RFX 16/18,45 IGP, APT HPV,RFX 16/18,45 Lab Routine Vaginal Pap smear Screening for HPV (human papillomavirus) Ordered: 08/02/2024 [facility] Work Phone: Comment on above: Ordered: 08/02/2024 Immunizations Immunization Date Immunization Notes Care Provider Fa lauriety 10-28-2020 COVID-19, mRNA, LNP-S, PF, 30 mcg/0.3 mL dose; Translations: [Pfizer-BioNTech COVID-19 Vaccine] Nancy Optiant [facility] Comment on above: Reason for Medicatio n: Prophylaxis 10-07-2020 COVID-19, mRNA, LNP-S, PF, 30 mcg/0.3 mL dose; Translations: [Pfizer-BioNTech COVID-19 Vaccine] Nancy [facility]iant [facility] Comment on above: Reason for Medicatio n: Prophylaxis 04-15-2020 influenza, injectable, quadrivalent, contains preservative Nancy MCKNIGHT [facility] 04-15-2020 influenza virus vaccine, unspecified formulation Marta Puente MD Work Phone: [facility] 03-23-2018 influenza virus vaccine, unspecified formulation Nancy MCKNIGHT [facility] 03-23-2017 influenza, injectable, quadrivalent, contains preservative Marta Puente MD Work Phone: [facility] 03-10-2013 tetanus toxoid, reduced diphtheria toxoid, and acellular pertussis vaccine, adsorbed Nancy MCKNIGHT [facility] Comment on above: Reason for Medicatio n: Other (see comment) 10-13-2007 tetanus toxoid, reduced diphtheria toxoid, and acellular pertussis vaccine, adsorbed Filiberto Cramer [facility] 10-24-1999 hepatitis A and hepatitis B vaccine Filiberto Cramer [facility] 01-25-1998 measles, mumps and rubella virus vaccine Filiberto Cramer [facility] NEGATED: Highlighted row has not occurred!07-18-2023 influenza virus vaccine, unspecified formulation Nancy MCKNIGHT [facility] NEGATED: Highlighted row has not occurred!06-20-2023 influenza virus vaccine, unspecified formulation Filiberto Cramer [facility] Payers Date Payer Category Payer Self-pay [id number] 2023 Unknown 2022 Medicaid [id number] 2022 Medicaid [id number] 2006 Private Health Insurance [id number] 1984 Unknown [id number] 2.16.8 40.1.755315.3.579.2.647 1984 Unknown [id number] 2.16.84 0.1.277398.3.579.2.174 1984 Unknown [id number] 2.16.84 0.1.211448.3.579.2.593 1984 Unknown [id number] 2.16.84 0.1.078292.3.579.2.593 1984 Unknown [id number] 2.16.84 0.1.988018.3.579.2.593 1984 Unknown [id number] 2.16.84 0.1.666825.3.579.2.593 1984 Unknown [id number] 2.16.84 0.1.885378.3.579.2.593 1984 Unknown [id number] 2.16.84 0.1.173322.3.579.2.593 1984 Unknown [id number] 2.16.84 0.1.397518.3.579.2.593 1984 Unknown [id number] 2.16.8 40.1.376351.3.579.2. 1984 Unknown [id number] 2.16.8 40.1.970556.3.579.2 1984 Unknown [id number] 2.16.8 40.1.360249.3.579.2 1984 Unknown [id number] 2.16.8 40.1.021552.3.579.2 1984 Unknown [id number] 2.16.8 40.1.438190.3.579.2 1984 Unknown [id number] 2.16.8 40.1.088875.3.579.2 1984 Unknown [id number] 2.16.8 40.1.901197.3.579.2 1984 Unknown [id number] 2.16.8 40.1.064670.3.579.2 1984 Unknown [id number] 2.16.8 40.1.563975.3.579.2 1984 Unknown [id number] 2.16.8 40.1.820003.3.579.2 1984 Unknown [id number] 2.16.8 40.1.811808.3.579.2 1984 Unknown [id number] 2.16.8 40.1.716066.3.579.2 1984 Unknown [id number] 2.16.8 40.1.090581.3.579.2 1984 Unknown [id number] 2.16.8 40.1.707545.3.579.2 1984 Unknown [id number] 2.16.8 40.1.219148.3.579.2 1984 Unknown [id number] 2.16.8 40.1.554671.3.579.2.727 1984 Unknown [id number] 2.16.8 40.1.527999.3.579.2.727 1984 Unknown [id number] 2.16.84 0.1.071734.3.579.2.1259 1984 Unknown [id number] 2.16.84 0.1.254227.3.579.2.9 1984 Unknown [id number] 2.16.84 0.1.948746.3.579.2.1259 1984 Unknown [id number] 2.16.84 0.1.194502.3.579.2.9 1984 Unknown [id number] 2.16.84 0.1.219711.3.579.2.9 1984 Unknown [id number] 2.16.84 0.1.272318.3.579.2.9 1984 Unknown [id number] 2.16. 840.1.801752.3.579.2.196 1984 Unknown [id number] 2.16. 840.1.103609.3.579.2.196 1984 Unknown [id number] 2.16. 840.1.330928.3.579.2.196 1984 Unknown [id number] 2.16. 840.1.404213.3.579.2.196 1959 Private Health Insurance [id number] 1.2.840.613207.1.13.239.2.7.3.280110.315 Unknown [id number] 2.16.8 40.1.425812.3.579.2.531 Social History Date Type Detail Facility Start: 05-31-2020 End: 05-06-2023 Tobacco smoking status NHIS Never smoker [place] Start: 05-31-2020 End: 05-06-2023 Tobacco use and exposure Never used [employer] Sex Assigned At Not on file [employer] Exposure to SARS-CoV -2 (event) Not sure [employer] Tobacco smoking status Never [facility] Start: 07-03-2023 End: 09-20-2024 Sex Assigned At Female [facility] Other Start: 1985 Sex Assigned At Female [facility] Start: 07-31-2023 End: 09-20-2024 Alcohol intake Ex-drinker (finding) [facility] Start: 07-03-2023 End: 09-20-2024 History of Social function [facility] How [...] Healthcare Start: 05-06-2023 Sexual orientation Heterosexual (finding) [facility] Medical Equipment Procedure Code Equipment Code Equipment Origin al Text Equipment Identifier Dates Anterior lumbar interbody fusion (ALIF) STRATOFUSE [id number] FDA Start: 12-06-2019 Anterior lumbar interbody fusion (ALIF) Orthopaedic bone screw, non-bioabsorbable, non-sterile [id number] FDA Start: 12-06-2019 Anterior lumbar interbody fusion (ALIF) Orthopaedic bone screw, non-bioabsorbable, non-sterile [id number] FDA Start: 12-06-2019 Anterior lumbar interbody fusion (ALIF) Bone-screw internal spinal fixation system, non-sterile +[id number] FDA Start: 12-06-2019 Anterior lumbar interbody fusion (ALIF) Bone-screw internal spinal fixation system, non-sterile +[id number] FDA Start: 12-06-2019 Anterior lumbar interbody fusion (ALIF) Spinal fusion graft kit [id number] FDA Start: 12-06-2019 Anterior lumbar interbody fusion (ALIF) Spinal bone screw, non-bioabsorbable [id number] FDA Start: 12-06-2019 Anterior lumbar interbody fusion (ALIF) Metallic spinal fusion cage, non-sterile [id number] FDA Start: 12-06-2019 Anterior lumbar interbody fusion (ALIF) Bone-screw internal spinal fixation system, non-sterile [id number] FDA Start: 12-06-2019 Functional Status Date Assessment Result Facility 11-12-2023 Functional Status N/A [facility] 10-07-2023 Functional Status N/A [facility] 07-24-2023 Functional Status N/A [facility] 07-18-2023 Functional Status N/A [facility] 06-24-2023 Functional Status N/A [facility] 06-20-2023 Functional Status N/A [facility] Clinical Notes 04-17-2021 to 09-20-2024 Petra Calle NP - 09/20/2024 8:20 AM Rosina Goodman MD - 08/02/2024 11:30 AM ESTTelephone Bashir - Shayy Phillips - 07/21/2024 1:33 PM Roxanne Mcnulty MA - 03/08/2024 10:00 AM EDT Note Date & Type Note Facility 09-20-2024 History of Presen t illness Narrative Images from the original note were not included. Chief Complaint Patient presents with Migraine Neck Pain Patient is here today for follow-up of migraines. I am following the plan of care established by the physician who is present in the office today. Subjective Jessica states she has had a slight increase in her migraines. She is getting 2-4 migraines per month. She has not been able to take aimovig due to insurance not covering it. Nurtec does still help to abort the migraines. She does need refills of Baclofen, tizanidine, and trileptal. Past Medical History: Diagnosis Date Cervical radiculopathy 04/14/2019 Degenerative disc disease, cervical 07/16/2018 Diplopia 12/01/2018 Dizziness 04/2023 Endometriosis Had in the past Facial numbness Fatigue 04/2023 H/O breast augmentation 2006 Hormone disorder Unknown date IBS (irritable bowel syndrome) Lumbar herniated disc Lumbar radiculopathy Menopause ovarian failure 2021 Migraine 2016 Neck pain 07/30/2018 Nontoxic single thyroid nodule (CMS/HCC) Occipital neuralgia 07/30/2018 Thyroiditis Thyrotoxicosis, unspecified without thyrotoxic crisis or storm [...] removal of endometriosis - Dr. Rosales TONSILLECTOMY Family History Problem Relation Name Age of Onset Breast cancer Maternal Grandmother Gerri Cancer Maternal Grandmother Gerri Colon cancer Maternal Grandfather Yoav Cancer Maternal Grandfather Yoav Migraines Paternal Grandmother Deanna Depression Other Social History Tobacco Use Smoking status: Never Smokeless tobacco: Never Substance Use Topics Alcohol use: Not Currently Comment: caffeine intake: 1-2 cups per day coffee Allergies: Latex and Wound dressing adhesive Vitals: 09/20/24 0829 BP: 122/78 Pulse: 65 SpO2: 96% Body mass index is 21.63 kg/m . weight: 134 lb Neurologic exam: Mental status: Awake, alert to person, place and time. Recent and remote memory are intact. Attention and concentration are normal. Fund of knowledge is appropriate for level of education. HEENT: NC/AT Cranial nerves: CN II: Visual acuity is normal. Visual romano full to confrontation. CN III, IV, : pupils equal round and reactive to light. Extraocular movements intact. No ptosis present. CN V: Facial sensation is normal. CN VII: Full and symmetric facial movement. CN VIII: Hearing is normal to finger rub bilaterally: CN IX and X: Palate elevates symmetrically. Normal gag reflex. CN XI: Shoulder shrug is normal bilaterally. CN XII: Tongue is midline without atrophy or fasciculation. Speech: Clear and fluent no aphasia or dysarthria Pronator drift: Negative bilateral upper extremity Coordination: Intact, no signs of dysmetria Good finger to nose and rapid alternating movements Sensory: Sensation is intact to light, temperature and vibratory touch throughout four extremities. Pinprick intact in all four extremities. Motor: LUE 5/5 RUE 5/5 LLE 5/5 RLE 5/5 Tone: Physiologic, no tremor, bradykinesia or rigidity Decreased cervical ROM in all directions DTR: Biceps, BR 2/4 Patellar 2/4 No spasticity Gait: Normal to casual gait Romberg's Negative Review and summary of old records: Assessment/Plan Diagnoses and all orders for this visit: Migraine without aura and without status migrainosus, not intractable (CMS/HCC) Neck pain - tiZANidine (Zanaflex) 4 MG tablet; Take 1 tablet (4 mg) by mouth at bedtime - baclofen (Lioresal) 10 MG tablet; TAKE 1 TABLET BY MOUTH TWICE DAILY (IN THE MORNING AND BEFORE BEDTIME) Paresthesias - OXcarbazepine (Trileptal) 300 MG tablet; TAKE 1/2 (ONE-HALF) TABLET BY MOUTH IN THE MORNING AND 1 TO 2 TABLETS AT BEDTIME 39 year old female with continued neck pain due to underlying C6-T1 DDD. There is reversal of normal curvature which can cause muscle spasm/myalgia. There is underlying right C6/7 radiculopathy. She has neck pain and paresthesias on the right and very mild weakness into her right hand. This does remain stable. EMG BUE was normal 12/2022. We did send her to PT and she did not go. She would benefit from a deep tissue massage and she should use other conservative therapies. She was having injections with pain mgt. They were considering an RFA. She states she had some relieve with a test injection as her pain went down to a 1 and then she did not qualify. Unfortunately, the pain relief did not last. They were discussing a pain stimulator. She is seeing Dr Cottrell also for her LBP. She had an EMG BLE that showed a right chronic S1 radic likely from her previous surgery. Showed a right anterior tibial focal trauma. She has numbness and tingling going down her right leg with some decreased sensation on the lateral side that remains stable with the S`1 chronic radic. This is likely just transient. She is getting injections. She is trying to wean down on her medication and really has not been able to. She remains on her muscle relaxers. . She does have migraines and these are doing better as she is getting 2-4 a month. Unfortunately, her insurance will not cover the aimovig. She can use the Nurtec and this does work well for her as long as she catches the migraine in time. She does feel these come from her neck and we will leave our meds as they are and let her continue to work with pain mgt. Her back and neck pain interrupt her sleep and this is what worsens her migraines. She does not want to add any meds at this time. . She experienced side effects to Imitrex with sedation, and has been on Maxalt, trileptal, aimovig, Neurontin, LYrica. baclofen, zanaflex, nurtec, OTC analgesics. . She is having difficulty sleeping and heart palpitations likely related to hyperthyroidism. She does see edi programmer for this. . TESTING AND RECORDS: We sent her to Dr. Claudia Gama who agreed that hardware should not be removed in lumbar area. Dr. Gama thought it would cause more harm than good to remove it. She has history of lumbar discectomy and fusion at L4/5. EMG BLE 07/02/2020 with evidence of bilateral S1 radiculopathy and greater on right. This would be level below fusion. Updated lumbar MRI 10/09/2020 with evidence of L5/S1 left laminectomy. There is post surgical changes. There is no significant change from prior CT scan. There is noted mildly displaced fracture to right S1 superior articular process. Dr. Tinoco suggested a dorsal column stimualtor but she did not want to proceed with this. . . . Plan continue with edi programmer for thyroid Continue with Dr. Cottrell, pain mgt for back and neck Make sure she is doing regular exercises good posture and keeping her neck up May need a repeat MRI of the cervical spine pending her course Wear right foot splint as needed Continue Baclofen 10mg 1/2-1 twice a day prn and Zanaflex 4mg 1/2-1 po q hs (may trial 1 1/2 prn at bedtime) On hold- aimovig 140 mg subcutaneous every 30 days-due to insurance will not cover, she does not want to add another preventative continue Nurtec 75 mg as needed for migraine abortive, one in 24 hours continue trileptal 300mg 1/2 tab in the am, continue 300 mg 1-2 po hs get a massage, use heat/ice, OTC muscle relaxer cream/ointment to neck This was discussed with the patient, all questions were answered and they agreed with the treatment plan. The patient is to call with any worsening of the condition or new symptoms. Return to clinic: 6 months documented in this encounter [facility] 08-02-2024 History of Presen t illness Narrative Images from the original note were not included. Kraig Goodman MD Obstetrics and Gynecology Patient: Jessica Griffiths, : 1985 (38 y.o.) DOS 08/02/24 Exam [...] Review Audit Reviewed by Helen Shaver MA (Restaurant Crew Person) on 08/02/24 at 1134 Medication Order Taking? Sig Documenting Provider Last Dose Status baclofen (Lioresal) 10 MG tablet [id number] TAKE 1 TABLET BY MOUTH TWICE DAILY (IN THE MORNING AND BEFORE BEDTIME) Petra Calle NP Active erenumab (Aimovig) 140 MG/ML injection [id number] INJECT 1 SYRINGE SUBCUTANEOUSLY ONCE EVERY MONTH Petra Calle NP Active estradiol (Estrace) 2 MG tablet [id number] Take 1 tablet (2 mg) by mouth Daily Kraig Goodman MD Active gabapentin (Neurontin) 600 MG tablet [id number] No Take 1 tablet by mouth Daily Kraig Goodman MD Taking Active methIMAzole (Tapazole) 10 MG tablet [id number] No Take 10 mg by mouth Marta Punete MD Taking Active OXcarbazepine (Trileptal) 300 MG tablet [id number] TAKE 1/2 (ONE-HALF) TABLET BY MOUTH IN THE MORNING AND 1 TO 2 TABLETS AT BEDTIME Petra Calle NP Active Discontinued 08/02/24 1134 Rimegepant Sulfate (Nurtec) 75 MG tablet dispersible [id number] Take 1 tablet by mouth Daily as needed (1 tablet at the onset of a migraine. do not repeat. no more than 2 days/week) Petra Calle NP Active tiZANidine (Zanaflex) 4 MG tablet [id number] Take 1 tablet (4 mg) by mouth at bedtime Petra Calle NP Active traMADol (Ultram) 50 MG tablet [id number] No TAKE 1 TABLET BY MOUTH THREE [...] 04/2023 H/O breast augmentation 2006 Hormone disorder Unknown date IBS (irritable bowel [...] requisition? Answer: Yes documented in this encounter [facility] 07-21-2024 Telephone encounter Note error [facility] 07-21-2024 Miscellaneous Notes error documented in this encounter [facility] 05-10-2024 Evaluation + Plan note Diagnostic Tests PendingT3 Free 05/10/24 Future Scheduled TestsLab Miscellaneous-LC 07/24/23 [facility] 03-08-2024 History of Presen t illness Narrative Images from the original note were not included. Reason for Appointment: EMG Patient: Jessica Griffiths : 1985 EMG Computer: [employer] Referring Physician: Eber Potts NP EMG: LIONEL parking lot attendant: Deya Mcnulty CMA Office Location: [place] Reason for EMG: c/o leg pain and pressure. Back pain. Radiates in the hips, shooting pains down the legs. Hx of back surgery. No Hx of DM, not taking blood thinners. Comments: Procedure explained to the patient who expressed understanding. documented in this encounter [facility] 03-01-2024 History of Presen t illness Narrative [...] further routine US documented in this encounter [facility] 10-21-2023 Evaluation + Plan note Diagnostic Tests PendingT3 Free 10/21/23 Future Scheduled TestsLab Miscellaneous-LC 07/24/23 [facility] 10-07-2023 Hospital Discharg e instructions Patient [...] Treatment for this condition includes: Antibiotic medicine. Rfio-mny-pvtitto medicines to treat discomfort. Drinking enough water [...] Follow these instructions at home: Medicines Take mthw-zdp-orcfmba and prescription medicines only as told by [...] provider. Document Revised: 01/19/2021 Document Reviewed: 01/19/2021 [employer] Patient Education 2022 Qian Xiao'er. Follow Up Care 10/07/2023 07:28:28 With:Nancy MCKNIGHT MD, FAM Address: When: only if needed [facility] [place] 08-04-2023 History of Presen t illness Narrative Subjective Patient ID: eJssica Griffiths is a 37 y.o. female who [...] per Dr Mcghee documented in this encounter [facility] 07-24-2023 Evaluation + Plan note Future Scheduled TestsLab Miscellaneous-LC 07/24/23Echo Transthoracic Complete 07/24/23 [facility] [place] 07-24-2023 Evaluation + Plan note Future Scheduled TestsLab Miscellaneous-LC 07/24/23 [facility] 07-18-2023 Evaluation + Plan note Diagnostic Tests PendingT3 Reverse, Serum 07/18/23Thyroid Perox.tpo Ab 07/18/23TgAb+Thyroglobulin,NIGEL or KELVIN 07/18/23 [facility] 07-18-2023 Hospital Discharg e instructions Patient [...] surgery. Follow these instructions at home: Take dfku-vmy-ipjurll and prescription medicines only as told by [...] condition. Where to find more information National [place] of Diabetes and Digestive and Kidney Diseases: [...] provider. Document Revised: 08/02/2022 Document Reviewed: 08/02/2022 [employer] Patient Education 2022 Qian Xiao'er. Follow Up Care 07/18/2023 07:34:13 With:Nancy MCKNIGHT MD, FAM Address: When: only if needed [facility] [place] 06-21-2023 Evaluation + Plan note Diagnostic Tests PendingT3 Free 06/21/23 Future Scheduled TestsCBC w/ Auto Diff 06/20/23Comprehensive Metabolic Panel 06/20/23Free T4 06/20/23 [facility] 06-20-2023 Hospital Discharg e instructions Patient [...] few weeks. Home care treatment may include: Ebze-pvk-woqbzkv pain relievers. A warm, moist cloth placed over the ear. Severe cases may require a procedure to insert tubes in the ears (tympanostomy tubes) to drain the fluid. Follow these instructions at home: Take ihoq-ynx-wxsbkpv and prescription medicines only as told by [...] provider. Document Revised: 10/04/2021 Document Reviewed: 10/04/2021 [employer] Patient Education 2022 Qian Xiao'er. 06/20/2023 19:03:16 Thyroid Nodule Thyroid Nodule A [...] in your thyroid nodule or nodules. Take cmbv-bmd-inhkdhn and prescription medicines only as told by [...] provider. Document Revised: 04/22/2022 Document Reviewed: 04/22/2022 [employer] Patient Education 2022 Qian Xiao'er. Follow Up Care 06/20/2023 07:23:01 With:Nancy MCKNIGHT MD, FAM Address: [address] [place] [address]- When: Unknown [facility] 06-20-2023 Evaluation + Plan note Future Scheduled TestsT4 Total 06/20/23CBC w/ Auto Diff 06/20/23Comprehensive Metabolic Panel 06/20/23T3 Free 06/20/23T3 Uptake 06/20/23Thyroid Stimulating Hormone 06/20/23Free T4 06/20/23 [facility] 10-01-2022 Note CONSULTATION [...] our patients to inform us about any uzeb-est-sarrwku medications or herbal remedies/nutritional supplements/alternative remedies. 2. [...] options with their primary care provider. [facility] 06-11-2022 Note CONSULTATION CONSULTATION DATE: 06/11/2022 [...] and concurs. CC: Nancy Mcknight M.D. [facility] 03-05-2022 Note PAIN MANAGEMENT CONS ULTATION [...] along this region. CC: Dr. Mcknight [facility] 12-28-2021 Evaluation note Encounter Date Diagnosis [...] follow her up on an as-needed basis [facility] Other 06-13-2022 Evaluation + Plan note Diagnostic Tests Pending * Insulin Level Total 12/03/21 * T3 Free 12/03/21 * FSH Level 12/03/21 Future Scheduled Tests Laboratory* COVID-19 ([facility]) 07/13/21 [facility]05-19-2022 NoteCONSULTATION CONSULTATION DATE: 11/08/2021 This is [...] does plan on seeing Dr. Damon in [place] for. Activities that aggravate her neck are [...] of care and would like to proceed. [facility] Signed and Approved by: ISAURA KELLY . 11/12/2021 15:05:00[facility]01-21-2022 Evaluation + Plan note Future Scheduled Tests Laboratory* COVID-19 ([facility]) 07/13/21 [facility]10-26-2021 Evaluation note* Encounter Date Diagnosis Assessment [...] she has good bone formation and her CUSTODIAL hardware is intact. Because of the persistent [...] region with neurogenic claudication (ICD-10 - M48.062) [facility] Other evaluation + Plan note Future Appointments Appointment Date:06/27/2023 07:30:00 AM Scheduled Provider: Location:.[facility] Appointment Type:US Thyroid/Neck/Chest (FT) Appointment Date:06/27/2023 08:00:00 AM Scheduled Provider: Location:.[facility] Appointment Type:CV EKG (FT) Appointment Date:07/29/2023 12:40:00 PM Scheduled Provider:Nancy MCKNIGHT MD Location:[facility] Appointment Type: Open Future Scheduled Tests Laboratory* UA With Cult Reflex 06/24/23 * CBC w/ Auto Diff 06/20/23 * Comprehensive Metabolic Panel 06/20/23 * Lipid Panel 06/24/23 * Free T4 06/20/23 Radiology* US Thyroid 06/27/23 [facility] [place] Evaluation + Plan note Future Appointments Appointment Date:07/29/2023 12:40:00 PM Scheduled Provider:Nancy MCKNIGHT MD Location:[facility] Appointment Type: Open Future Scheduled Tests Laboratory* UA With Cult Reflex 06/24/23 * CBC w/ Auto Diff 06/20/23 * Comprehensive Metabolic Panel 06/20/23 * Lipid Panel 06/24/23 * Free T4 06/20/23 Radiology* US FNA w/ Guidance, first lesion 06/27/23 * NM Thyroid Imaging w/ Uptk Multiple 06/27/23 [facility] Future Appointments Appointment Date:09/11/2023 08:00:00 AM Scheduled Provider: Location:.[facility] Appointment Type:CV Echo (FT) Diagnostic Tests Pending * T3 Free 09/10/23 * Thyrotropin Receptor Antibody, Serum 09/10/23 Future Scheduled Tests Laboratory* Lab Miscellaneous-LC 07/24/23 Radiology* Echo Transthoracic Complete 09/11/23 [facility] Seen Other evaluation noteNo assessment information available [facility] Work Phone: Evaluation note* Diagnosis Mass [...] screening mammogram [facility] Diagnosis Migraine without aura and without status migrainosus, not intractable (CMS/HCC)- Primary Neck pain Cervicalgia Paresthesias Disturbance of skin sensation documented in this encounter [facility] general [...] CHIARA-Doctor Tinoco Hospitalization History see surgical hx [facility] Other Hospital course Narrative No data available for this section [facility] No data available for this section [facility] No data available for this section [facility] Summary Purpose Family History Relationship Condition Age at Onset Recorded Date/T rody Not Specified Healthy female adult Unknown father Osteoarthritis Unknown Degeneration of intervertebral disc Unkno wn Advance Directives Documents on File Type Date Recorded 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 * Chest Pain: Musculoskeletal (Yi) documented in this encounter Assessments Diagnosis Chest wall pain Painful respiration Reason for Referral Reason Evaluate and Treat C onsider for Dorsal Column Stimulator Diagnosis 1 Spondylolisthesis at L5-S1 level (M43.17) Referral Organization [facility] urosurgery Referring Provider First Name Ric Referring Provider Last Name Alejandrina Referring Provider Specialty Neurologica l Surgery Referred Organization Unknown Facility Referred Provider Mansoor Summers Referred Provider Specialty Pain Medicin e Referral Priority Routine Additional Source Comments INFORMATION SOURCE (unrecogn ized section and content) DATE CREATED AUTHOR 01/14/[address] [facility] DATE CREATED AUTHOR AUTHOR'S ORGANIZ ATION 06/01/2020 [facility] DATE CREATED AUTHOR AUTHOR'S ORGANIZ ATION 11/06/2022 [facility] DATE CREATED AUTHOR AUTHOR'S ORGANIZ ATION 08/01/2023 [facility] DATE CREATED AUTHOR AUTHOR'S ORGANIZ ATION 05/12/2024 [facility] DATE CREATED AUTHOR AUTHOR'S ORGANIZ ATION 05/17/2024 [facility] DATE CREATED AUTHOR AUTHOR'S ORGANIZ ATION 08/03/2024 [facility] DATE CREATED AUTHOR AUTHOR'S ORGANIZ ATION 08/27/2024 [facility] Reason for Visit (unrecogniz ed section and content) Reason Comments Chest Pain intermittent chest p ain under left breast started last night, few episodes today, lasting approx 30 seconds, reports feeling more tired today Reason Comments Thyroid Nodule Follow up biopsy 06/24 08/16 Reason Comments Migraine Cervical Radiculopathy Reason Comments Med Refill Reason Comments Thyroid Nodule Follow up ultrasound Reason Comments Migraine Neck Pain Care Team (unrecognized sect ion and content) Team Status: Active Member Role Status Dates Ruben Mcknight MD Primary Care Provider Active Team Status: Inactive Member Role Status Dates Ruben Mcknight MD Primary Care Provider Active Start: July 14, 2023 End: July 14, 2023 Marta Puente Jr, MD Attending Provider Active Start: July 14, 2023 End: July 14, 2023 Best Worker Relationship Specialty Start Date End Date Nancy Mcknight MD [address] [place] [address] PCP - General 05/07/23 Best Worker Relationship Specialty Start Date End Date Nancy Mcknight MD [address] [place] [address] PCP - General 05/07/23 Best Worker Relationship Specialty Start Date End Date Nancy Mcknight MD [address] [place] [address] PCP - General 05/07/23 Best Worker Relationship Specialty Start Date End Date Nancy Mcknight MD [address] [place] [address] PCP - General 05/07/23 Best Worker Relationship Specialty Start Date End Date Nancy Mcknight MD [address] [place] [address] PCP - General 05/07/23 Best Worker Relationship Specialty Start Date End Date Nancy Mcknight MD [address] [place] [address] PCP - General 05/07/23 Best Worker Relationship Specialty Start Date End Date Nancy Mcknight MD [address] [place] [address] PCP - General 05/07/23 Best Worker Relationship Specialty Start Date End Date Nancy Mcknight MD [address] [place] [id number] PCP - General 05/07/23 Best Worker Relationship Specialty Start Date End Date Nancy Mcknight MD [address] [place] [address] PCP - General 05/07/23 Best Worker Relationship Specialty Start Date End Date Nancy Mcknight MD [address] [place] [address] PCP - General 05/07/23 Petra Calle NP [address] Nurse Practitioner Neurology 09/20/24 Best Worker Relationship Specialty Start Date End Date Nancy Mcknight MD [address] [place] [address] PCP - General 05/07/23 Petra Calle, CAROLYN [address] Nurse Practitioner Neurology 09/20/24 Edwin Arambula DO [address] [id number] Referring Physician Neurology 09/20/24 Goals (unrecognized section and content) Goals may [...] BE BASED ON THE PRIMARY CLINICAL RECORDS. [facility] [employer] [facility]. provides no warranty or guarantee of the accuracy or completeness of information in this document.
[2024-09-20 10:23] VITALS: BP 111/72; PULSE 68; TEMP 36.7; O2SAT 100
[2024-09-20 10:38] VITALS: BP 114/73; BP 120/78; PULSE 60; PULSE 66; O2SAT 100; O2SAT 98
[2024-09-20] MEDS: LIDOCAINE HCL 2% 400 MG/20 ML MDV INJ (10:41)
[2024-09-20] MEDS: IOHEXOL 240 MG/ML - 10 ML VIAL 24 MG INJ (10:41)
[2024-09-20] MEDS: BUPIVACAINE HCL 0.25% PF 25 MG/10 ML VIAL INJ (10:41)
[2024-09-20] MEDS: DEXAMETHASONE SOD PHOS 10 MG/ML VIAL INJ (10:41)
--- NOTE | 2024-09-20 10:41 | P.ON_ITS ---
Date of procedure: 09/20/24 Pre-op diagnosis: M54.12 Post-op diagnosis: same as pre-op Procedure: Procedure: Right C6-7 transforaminal epidural steroid injection Medications: Bupivacaine 0.25% 1cc, lidocaine 2% 1cc, dexamethasone 10mg The patient was seen and examined in the preoperative holding area.? Informed consent was obtained and placed on the chart.? Patient was brought to the medical procedure unit and placed in the prone position where a timeout was completed verifying the correct patient, procedure site, position, and planned special equipment using sterile aseptic technique.? Under direct fluoroscopic visualization a 25-gauge Quincke tipped spinal needle was advanced to the designated neural foramen where contrast dye was injected to show adequate spread.? The needle was inserted at level right C6-7. There was no evidence of vascular or adverse uptake.? Epidural spread was appreciated.? The above- mentioned injectate was then placed in a 1.5 mL aliquot preceded by negative aspiration.? The needle was removed. The surgery site was covered.? Patient was taken to the postprocedural recovery area and monitored for an appropriate length of time before found suitable for discharge in the accompaniment of a responsible adult. Anesthesia: Local Surgeon: Suzie Alegria Pathology: none sent Condition: stable Disposition: no change
== END 2024-09-20 10:46 | disposition home or self-care (01) ==
LOC: SURGOUT 09:18
PROVIDERS: Visit Provider Anesthesiology
DX: M54.12 Radiculopathy, cervical region (principal)
CPT/HCPCS: 64479; J0665; J1100; Q9966

== ENCOUNTER 2024-12-20 13:20 | Outpatient (OUT) | payer SELFPAY ==
--- OUTSIDE RECORDS SUMMARY | 2024-12-20 13:35 | XMS_ITS | CCD ---
Author Organization [facility]ini[facility] Care Team Providers Care Manager Business Name Role Phone UNKNOWN, PROVIDER Admitting Unavailable UNKNOWN, PROVIDER Attending Unavailable UNKNOWN, PHYSICIAN Referring Unavailable UNKNOWN, PHYSICIAN Primary Care Unavailable Nancy Mcknight Primary Care Provider KATHY GHOSH Attending Unavailable NANCY MCKNIGHT Primary Care Unavailable Nancy MCKNIGHT Primary Care Physician [phone] Ric Tinoco Unavailable JOSEFA ., DR HERB Melgar Attending Unavailable RIVERO ., DR HERB Melgar Admitting Unavailable RIVERO ., DR HERB Melgar Consulting Unavailable MISC, DR MURRIETA Primary Care Unavailable LAKSHMIPATHY ., NARAMAYAATH Consulting Fide vailable MISC, DR MURRIETA Primary Care Unavailable LAKSHMIPATHY ., NARENDRANATH Admitting Fide vailable LAKSHMIPATHY ., SHARONA Attending [...] ., NARENDGINOATH Attending Fide vailable LAKSHMIPATHY ., VOLODYMYRATH Consulting Fide vailable RIVERO ., DR HERB [...] Unavailable ISAURA JADE Consulting Unavailable MD Ruben Mcknight Primary Care Provider MD Marta Puente Jr Attending Provider Kathy Lincolns Marta Abreu H Attending Unavailable Latonias , Marta H Admitting Unavailable Ruben Mcknight Primary Care Unavailable Nancy Mcknight MD Primary Care Provider Nancy MCKNIGHT Primary Care Physician [phone] Gudimella, Matt Attending Unavailable Gudimella, Matt Attending [...] Attending Unavailable SUMI, AHMAD F Admitting Unavailable Petra Calle NP Unavailable Edwin Arambula DO Unavailable KRAIG GOODMAN Attending Unavailable PETRA CALLE Attending Unavailable PETRA CALLE Attending Unavailable MARTA PUENTE Attending Unavailable EDWIN ARAMBULA Attending Unavailable EBER [...] Propensity to adverse reactions (disorder) 9 [facility] Repository (19 sources) Adhesive Tape; Translations: [Tape] Drug allergy Eruption of skin (disorder) [facility] (20 sources) Latex; Translations: [Latex] Drug allergy 5 Rash [email or web address] [facility] [employer] Other (3 sources) adhesive bandages Propensity to adverse reactions rash [facility] [employer] Other (1 source) Adhesive agent Drug allergy (disorder) 6 [facility] Repository (1 source) Adhesive agent Drug allergy (disorder) 2 [facility] Repository (1 source) Adhesive Tape Drug allergy (disorder) 0 [facility] Repository (18 sources) Wound Dressing Adhesive Drug [...] course, # 28 cap(s), Refills(s) 0, Pharmacy: [facility], 168, cm, 07/11/20 8:27:00 EST, [...] Daily, # 90 tab(s), Refills(s) 1, Pharmacy: [facility], 168, cm, 07/11/20 8:27:00 EST, [...] nasal route once daily Flonase 0.05 mg/inh [place] 2 spray(s), Nasal, Daily for 7 day(s), 16 gm, Refill(s) 0, each nostril, [facility], 168, cm, 06/20/23 [...] BID, # 180 tab(s), Refills(s) 1, Pharmacy: [facility], 168, cm, 07/11/20 8:27:00 EST, Height/Length Dosing, 64.1, kg, 07/11/20 8:27:00 EST, Weight Dosing Start Date: 08/22/20 Status: Ordered loratadine 10 mg oral tablet (3 sources) Start: 02-23-2020 take 1 tablet by mouth once daily loratadine 10 mg Tab 10 mg = 1 tab(s), Oral, Daily, # 90 tab(s), Refills(s) 1, Pharmacy: [facility], 168, cm, 02/23/20 10:40:00 EDT, Height/Length Dosing, 65, kg, 02/23/20 10:40:00 EDT, Weight Dosing Start Date: 02/23/20 Status: Ordered Start: 11-30-2019 take 1 capsule by [facility] once daily loratadine (CLARITIN) 10 [...] Nausea/Vomiting, # 10 tab(s), Refills(s) 0, Pharmacy: [facility], 168, cm, 07/10/20 [...] symptoms, # 30 tab(s), Refills(s) 0, Pharmacy: [facility], 168, cm, 10/07/23 10:32:00 EDT, Height/Length Dosing, 61, kg, 10/07/23 10:32:00 EDT, Weight Dosing Start Date: 10/07/23 Status: Ordered Start: 05-26-2020 take 1 tablet by jaden th twice daily as needed oxybutynin 5 mg Tab 5 mg = 1 tab(s), Oral, BID, PRN for urinary discomfort, # 60 tab(s), Refills(s) 2, Pharmacy: [facility], 168, cm, 05/26/20 [...] breakfast, # 30 tab(s), Refills(s) 5, Pharmacy: [facility], 168, cm, 07/11/20 [...] Once, # 1 tab(s), Refills(s) 0, Pharmacy: [facility], 168, cm, 07/24/23 [...] breakfast, # 30 tab(s), Refills(s) 5, Pharmacy: [facility], 168, cm, 07/11/20 8:27:00 EST, [...] BID, # 60 tab(s), Refills(s) 2, Pharmacy: [facility], 168, cm, 11/08/21 9:50:00 EDT, Height/Length Dosing, 65.4, kg, 11/08/21 9:50:00 EDT, Weight Dosing Start Date: 01/18/22 Status: Ordered Start: 11-23-2020 End: 08-02-2024 take 1 tablet by mouth twice daily valacyclovir 1 g Tab 1 gram = 1 tab(s), Oral, BID, # 60 tab(s), Refills(s) 2, Pharmacy: [facility], 168, cm, 07/11/20 8:27:00 EST, Height/Length Dosing, 64.1, kg, 07/11/20 8:27:00 EST, Weight Dosing Start Date: 11/23/20 Status: Ordered Start: 11-23-2020 take 1 tablet by jaden th twice daily valacyclovir 1 g Tab 1 gram = 1 tab(s), Oral, BID, # 60 tab(s), Refills(s) 2, Pharmacy: [facility], 168, cm, 07/11/20 8:27:00 EST, Height/Length Dosing, 64.1, kg, 07/11/20 8:27:00 EST, Weight Dosing Start Date: 11/23/20 Status: Ordered Completed/Discontinued Medications Medication Drug Class(es) Dates Sig (Normalized) Sig (Original) acetaminophen 325 mg / HYDROcodone bitartrate 5 mg oral tablet (2 sources) Opioid Agonist Start: 09-12-2017 End: 11-30-2019 take 1 tablet by mouth every four to six hours Hydrocodone-Acetami nophen ([place]) 5-325 mg tablet Discontinued 1 TAB PO EVERY 4-6 HOURS 30 September 12, 2017 November 30, 2019 9:37am Start: 09-04-2017 End: 09-12-2017 take 1 tablet by mouth once daily at bedtime Hydrocodone-Acetaminophen ([place]) 5-325 mg Tablet Discontinued 1 TAB PO [...] [Mass/Vol] 2.3 pg/mL Invalid Interpretation Code 2.0-4.4 [facility] Comment on above: Result Comment: Perf ormed at: CB [facility] [address] [id number] PhD Mahnaz Conklin Performed By: #### 2 [id number] #### [facility] [address] [place] [address] CHEMISTRYOrdered By: SYSTEM SYSTEM on 05-10-2024 Free T4 [Mass/Vol] 0.72 ng/dL Normal 0.58 - 1.64 ng/dL Remisol Chem TSH Qn 2.58 m[IU]/L Normal 0.34 - 5.60 mcIU/mL Remisol Chem Free T4on 05-10-2024 Free T4 [Mass/Vol] 0.72 ng/dL Normal 0.58-1.64 [facility] Comment on above: Performed By: #### 2 [id number] #### [facility] [address] [place] [address] TSHon 05-10-2024 TSH Qn 2.58 m[IU]/L Normal 0.34-5.60 [facility] Comment on above: Performed By: #### 2 070208 #### [facility] [address] [place] [address] EMG 2 Extremitieson 03-08-20 EMG/ NCS BLE Mild right S1/S2 radiculopathy versus tibial motor neuropathy that is less likely [facility] NVC 9-10 Nerveson 03-08-2024 EMG/ NCS BLE Mild right S1/S2 radiculopathy versus tibial motor neuropathy that is less likely [facility] US Thyroidon 01-16-2024 US Thyroid Exam [...] DO Transcribed by: YAMINI Technologist: KELSI Merrill [facility] Consenton 11-12-2023 Consent [id number]#1.00TIFF Normal [facility] Consent [id number]#1.00TIFF [facility] Family Medicine Office/Clini c Noteon [...] with voice recognition artificial intelligence software, specifically [employer], [employer] and or [employer]. Substitutions may have occurred due to the inherent limitations of voice recognition and artificial intelligence software. Documentation services were performed after patient or guardian consented to allow [employer] to record this visit. DEX affirmative action specialist Perlita Dominguez and provider reviewed before [...] per year, 06/24/2023 Employment/School Employed, Work/School description: [employer]., 02/01/2019 Home/Environment Lives with Children, Spouse., 02/01/2019 Substance Abuse - Denies Substance Abuse, 12/11/2012 Household substance abuse concerns: No., 06/24/2023 Tobacco - Denies Tobacco Use, 12/11/2012 Never (less than 100 in lifetime) Tobacco Use:. Never Smokeless Tobacco Use:. Household tobacco concerns: No., 11/12/2023 Family History Depression: Mother. Hepatitis C: Sister. Immunizations Vaccine Date Status Comments influenza viru (more content not included)... Normal [facility] Comment on above: Result Comment: Elec tronically Signed By: Matt Bass MD\.br\Date and Time Signed: 11/12/23 14:07 EDT\.br\Electronically Co-Signed By: Tyrone Garcia\.br\Date and Time Co-Signed: 11/12/23 13:40 EDT T3 Freeon 10-22-2023 Free T3 [Mass/Vol] 2.9 pg/mL Invalid Interpretation Code 2.0-4.4 [facility] Comment on above: Result Comment: Perf ormed at: [facility] [id number] PhD Mahnaz Conklin Performed By: #### 2 204070, 3155789, 3488184 ####[facility] [address] [place] [address] CHEMISTRYOrdered By: SYSTEM SYSTEM on 10-21-2023 Free T4 [Mass/Vol] 0.65 ng/dL Normal 0.58 - 1.64 ng/dL Remisol Chem TSH Qn 4.41 m[IU]/L Normal 0.34 - 5.60 mcIU/mL Remisol Chem Consent for Treatmenton 09-23 Consent for Treatment [id number]#1.00TIFF Normal [facility] Free T4on 10-21-2023 Free T4 [Mass/Vol] 0.65 ng/dL Normal 0.58-1.64 [facility] Comment on above: Performed By: #### 2 956503, 6044862, 9934000 ####[facility] [address] [place] [address] Physician Orderon 10-21-2023 Physician Order [id number]#1.00TIFF Normal [facility] TSHon 10-21-2023 TSH Qn 4.41 m[IU]/L Normal 0.34-5.60 [facility] Comment on above: Performed By: #### 2 979456, 4599774, 5113114 ####[facility] [address] [place] [address] Ambulatory Visit Summaryon 0 10-07-2023 Ambulatory Visit [...] urinary discomfort for bladder symptoms Pickup at [facility] 1045 Unchanged baclofen (baclofen 10 mg Tab) See [...] physician if questions or concerns Pharmacy Information [facility] 5309: [address] [phone] Allergies Latex Tape (Rash) Problems Ongoing - [...] have a (more content not included)... Normal [facility] Family Medicine Office/Clini c Noteon 10-07-2023 [...] two weeks, she has not utilized any ctet-aui-uhpegti or old antibiotics, nor has she utilized [...] week. She is seeing Dr. Mcghee in [place] for her thyroid. She has been trying [...] Urnls Dip Stick Auto w/o Microscopy POC 19982 2. Thyroiditis, subacute (E06.1: Subacute thyroiditis) Continue following with Dr. Mcghee in [place] for management of the methimazole. 3. Lumbar [...] symptoms, # 30 tab(s), Refills(s) 0, Pharmacy: [facility], 168, cm, 10/07/23 10:32:00 EDT, Height/Length Dosing, 61, kg, 10/07/23 10:32:00 EDT, Weight Dosing Portions of this record may have been created with voice recognition artificial intelligence software, specifically [employer], [employer] and or [employer]. Substitutions may have occurred due to the inherent limitations of voice recognition and artificial intelligence software. Follow-up With When Contact Information JUAN LUIS REES, SAMIR [place] Only if needed Additional Instructions: Patient Education [...] Anterior lumba (more content not included)... Normal [facility] [...] this condition includes: ? Antibiotic medicine. ? Mvvu-ntk-qpmwyiq medicines to treat discomfort. ? Drinking enough [...] these instructions at home: Medicines ? Take xyfz-nsq-ozwrxyj and prescription medicines only as told by [...] Result Comment: Perf ormed at: [facility] [address] [id number] PhD Mahnaz Conklin Performed By: #### 2 336695, [id number], 0926067, 7353945, 4114061 ####[facility] [address] [place] [address] Thyrotropin Receptor Antibod y, Serumon 09-13-2023 TSH receptor Ab Qn (S) <1.10 Invalid Interpretation Code 0.00-1.75 [facility] Comment on above: Result Comment: Perf ormed at: [facility] [address] [id number] MD Enrico Dean Performed By: #### 2 731056, [id number], 9468778, 3315772, 7049607 ####[facility] [address] [place] [address] CHEMISTRYOrdered By: SYSTEM SYSTEM on 09-10-2023 Albumin [...] for Treatmenton 08-22 Consent for Treatment [id number]#1.00TIFF Normal [facility] Free T4on 09-10-2023 Free T4 [Mass/Vol] ng/dL Low 0.58-1.64 [facility] Comment on above: Performed By: #### 2 544034, [id number], 1640409, 5660839, 1909778 ####[facility] [address] [place] [address] Hep Func Panelon 09-10-2023 Albumin [Mass/Vol] 4.2 g/dL Normal 3.3-5.0 [facility] Comment on above: Performed By: #### 2 751226, [id number], 1693772, 9767822, 2305267 ####[facility] [address] [place] [address] Albumin/Globulin (S) [Mass conc ratio] 1.4 Normal 1.1-2.2 [facility] Comment on above: Performed By: #### 2 475618, [id number], 1524189, 0408157, 2272328 ####[address] [address] ALP [Catalytic activity/Vol] 66 Int._Unit/L Normal 21-98 [facility] Comment on above: Performed By: #### 2 597697, 1215681827, 0416247, 7046241, 8757875 ####[address] [address] ALT No additional P-5'-P [Catalytic activity/Vol] 14 Int._Unit/L Normal 6-46 [facility] Comment on above: Performed By: #### 2 764525, 1050263884, 4350578, 9702809, 8666260 ####[address] [address] AST [Catalytic activity/Vol] 22 Int._Unit/L Normal 5-43 [facility] Comment on above: Performed By: #### 2 363234, 8370279465, 3771231, 3843531, 1813595 ####[address] [address] Bilirubin [Mass/Vol] 0.5 mg/dL Normal 0.0-1.1 [facility] Comment on above: Performed By: #### 2 676764, 7170914517, 1991497, 2500424, 9086522 ####[address] [address] Bilirubin.direct [Mass/Vol] 0.1 mg/dL Normal 0.0-0.4 [facility] Comment on above: Performed By: #### 2 750136, 9791809917, 7580240, 6017186, 5171448 ####[address] [place] [address] Bilirubin.indirect [Mass or moles/Vol] 0.4 mg/dL Normal 0.1-0.9 [facility] Comment on above: Performed By: #### 2 464786, 7393117419, 9075764, 8784444, 9992809 ####[facility] [address] [place] [address] Globulin (S) [Mass/Vol] 3.0 g/dL Normal 1.4-4.0 [facility] Comment on above: Performed By: #### 2 874743, 3353458759, 7146344, 0610971, 7619448 ####[address] [place] [address] Protein [Mass/Vol] 7.2 g/dL Normal 6.0-7.8 [facility] Comment on above: Performed By: #### 2 600156, 4142657550, 4789120, 3542294, 0822719 ####[address] [place] [address] Physician Orderon 09-10-2023 Physician Order [id number]#1.00TIFF Normal [facility] TSHon 09-10-2023 TSH Qn 68.80 m[IU]/L High 0.34-5.60 [facility] Comment on above: Performed By: #### 2 653740, 7682903161, 6777172, 9400814, 6078956 ####[address] [place] [address] Consultation Noteon 08-12-19 Consultation Note [id number]#1.00TIFF Normal [facility] Insurance Correspondenceon 0 08-05-2023 Insurance Correspondence [id number]#1.00TIFF Normal [facility] Consultation Noteon 08-04-19 Consultation Note [id number]#1.00TIFF Normal [facility] .Thyroglobulin by RIAon 07-24 Thyroglobulin [Mass/Vol] 159 ng/mL High [facility] Comment on above: Result Comment: Conf irmed by dilution. This test was developed and its performance characteristics determined by [employer]. It has not been cleared or approved [...] quantitation limit is 2.0 ng/mL. Performed at: [facility] [address] [place] [address] [id number] MD Yadiel Cornell Performed By: #### 7 39408093, 8077961, 01170360, 8548274, 437613601, 46746727 ####[facility] [address] [place] [address] T3 Reverseon 08-02-2023 T3.reverse [Mass/Vol] 31.2 ng/dL High 9.2-24.1 [facility] Comment on above: Result Comment: This test was developed and its performance characteristics determined by [facility]. It has not been cleared or approved by the Food and Drug Administration. Performed at: [address] [id number] MD Enrico Dean Performed By: #### 7 [id number], 5504153, 76534327, 0630155, 886880546, 25500145 ####[facility] [address] [place] [address] TgAb+Thyroglobulinon 024 Thyroglobulin Ab Qn 2.7 International_Unit /mL High 0.0-0.9 [facility] Comment on above: Result Comment: Thyr oglobulin Antibody measured by [employer] Performed at: [facility] [id number] [place], [place] [id number] PhD Mahnaz Conklin Performed By: #### 7 42367491, 3877532, 35321794, 1565076, 935021870, 19262516 ####[facility] [address] [place] [address] Thyroid Perox.tpo Abon 08-02 TPO Ab Qn [IU]/mL Invalid Interpretation Code 0-34 [facility] Comment on above: Result Comment: Perf ormed at: [facility] [place] [address] [place], [place] [id number] PhD Mahnaz Conklin Performed By: #### 7 72113414, 8002922, 62883544, 8066562, 526279334, 13949542 ####[facility] [address] [place] [address] Family Medicine Office/Clini c Noteon 07-29-2023 Family [...] well and imagi (more content not included)... [facility] Comment on above: Result Comment: Elec tronically Signed By: Matt Bass MD\.br\Date and Time Signed: 07/29/23 18:15 EST\.br\Electronically Co-Signed By: Jaja Alex\.br\Date and Time Co-Signed: 07/24/23 18:17 EST Interdisciplinary Note - Soc zenaida Marina 07-28-2023 Interdisciplinary Note - A Operator This SW made a tc to [...] hormone level, Print Label By Order Location, [id number]\.br\ Echo Transthoracic Complete, 07/24/23, Routine, Order for future visit, Transport Mode: Ambulatory, Reason: Other (please specify), Reason: murmur, Heart murmur, pp_set_radiology_ subspecialty, [facility], [facility]\.br\ Medications\.br\ What How Much When Instructions\.br\ New propranolol (propranolol 10 mg Tab) 1 Tablets By Mouth Once Pickup at [facility]\.br\ Unchanged baclofen (baclofen 10 mg Tab) See [...] if questions or concerns \.br\ Pharmacy Information\.br\ [facility] 8796: [address] [phone]\.br\ Allergies\.br\ Latex\.br\ Tape (Rash)\.br\ Problems\.br\ Ongoing - [...] Chem Clipboard Summaryon 07-18-19 24 Clipboard Summary {15-xq-n6-2d-15-1c -12-3p-z2-9a-b9-6d -cb-25-c2-ac}XML Normal [facility] Consent for Treatmenton 06-24 Consent for Treatment [id number]#1.00TIFF Normal [facility] Family Medicine [...] and had a biopsy on Friday at [place], carried out by the radiology department interventional [...] Nonicteric sclera. Oropharynx pink and moist. Adequate [place] dentition. Anterior neck, there is a fullness [...] the pathology report on her phone from [facility] which indicates benign cellularity although admittedly may [...] Comment on above: Performed By: #### 7 [id number], 3882156, 17805239, 0388922, 340313096, 80152132 #### [facility] [address] [place] [address] Patient Educationon 07-18-19 Patient Education Endocrinology Hyperthyroidism [...] Follow these instructions at home: ? Take memh-cip-gsdtfhk and prescription medicines only as told by [...] Where to find more information ? [place] of Diabetes and Digestive and Kidney Diseases: [...] Comment on above: Performed By: #### 7 [id number], 9270006, 87259435, 2381376, 057435322, 61108764 #### [facility] [address] [place] [address] Mata 07-14-2023 L Specimen: [id number] Received: 07/15/23 Status: DENA Hurtado Num: [id number] Spec Type: Cytology Subm Dr: MARTA PUENTE MD Tissues: A FNA SLIDES NOPATH (LT THYROID NOD) Procedures: Cyto Int and Re, PAPSTN/5 Age/ Patient Sex Location Account Attending Physician Jessica Griffiths 37/F [facility] [id number] MARTA PUENTE MD SPEC NUM: [id number] RECD: 07/15/23 STATUS: DENA HURTADO NUM: [id number] KANCHAN: 07/14/23- SUBM DR: MARTA PUENTE MD ENTERED: 07/15/[address] [facility] [address]: Neno Lemons SPEC TYPE: Cytology DEPT: [facility] ENTERED BY: [id number] RECV BY: [id number] ORDERED: Cyto Int and Re, PAPSTN/5 ORDERED: Cyto Int and Re, PAPSTN/5 Pathological Diagnosis Left thyroid mid lobe nodule, FNA cytology: - Adequate but slightly limited for assessment - The [place] system is category 2: Benign - A [...] [id number] Received: 07/15/23 Status: DENA Bear Num: [id number] Spec Type: Cytology Subm Dr: MARTA PUENTE MD Tissues: A FNA SLIDES NOPATH (LT THYROID NOD) Procedures: Cyto Int and Re, PAPSTN/5 -- Patient: Jessica Griffiths [id number] (Continued) -- Specimen: [id number] Received: 07/15/23 (Continued) Signed (signatu re on file) Alfonso Correa MD 07/16/231122 -- Specimen: [id number]- Received: 07/15/23 Status: DENA Hurtado Num: [id number] Spec Type: Cytology Subm Dr: MARTA PUENTE MD Tissues: A FNA SLIDES NOPATH (LT THYROID NOD) Procedures: Cyto Int and Re, PAPSTN/5 -- Patient: Jessica Griffiths [id number] (Continued) -- Specimen: [id number] Received: 07/15/23 (Continued) CPT Codes 67295 -- -- Specimen: [id number] Received: 07/15/23-1303 Status: DENA Hurtado Num: [id number] Spec Type: Cytology Subm Dr: MARTA PUENTE MD Tissues: A FNA SLIDES NOPATH (LT THYROID NOD) Procedures: Cyto Int and Re, PAPSTN/5 -- Patient: Jessica Griffiths [id number] (Continued) -- Signed (signatu re on file) Alfonso Correa MD 07/16/23 1123 [facility] [place] Thyroid Imaging w/ Uptk Angelito ortega [...] for Treatmenton 06-23 Consent for Treatment [id number]#1.00TIFF Normal [facility] Lipid Panelon 07-08-2023 Cholesterol [Mass/Vol] 145 mg/dL Normal 120-200 [facility] Comment on above: Performed By: #### 2 500098 ####[facility] [address] [place] [address] Cholesterol in HDL [Mass/Vol] 62 mg/dL Invalid Interpretation Code [facility] Comment on above: Result Comment: '>= 60 LOW RISK' '<= 40 HIGH RISK' Performed By: #### 2 366287 ####[facility] [address] [place] [address] Cholesterol in LDL [Mass/Vol] 76 mg/dL Normal <=129 [facility] Comment on above: Performed By: #### 2 120553 ####[facility] [address] [place] [address] Cholesterol in VLDL [Mass/Vol] 10 mg/dL Normal 7-40 [facility] Comment on above: Performed By: #### 2 766455 ####[facility] [address] [place] [address] Triglyceride [Mass/Vol] 52 mg/dL Normal <=149 [facility] Comment on above: Performed By: #### 2 039555 ####[facility] [address] [place] [address] UA With Cult Reflexon 2023 Bacteria LM Ql (Urine sed) 1+ /HPF Abnormal Trace [facility] Comment on above: Performed By: #### 1 0454014 ####[facility] [address] [place] [address] Bilirubin Ql (U) Negative Normal Negative [facility] Comment on above: Performed By: #### 1 7330448 ####[facility] [address] [place] [address] Clarity (U) CLEAR Normal Clear [facility] Comment on above: Performed By: #### 1 1051165 ####[facility] [address] [place] [address] Color (U) YELLOW Normal Yellow [facility] Comment on above: Performed By: #### 1 7574761 ####[facility] [address] [place] [address] Epithelial cells.squamous LM.HPF (Urine sed) [#/Area] /[HPF] Normal 0-2 [facility] Comment on above: Performed By: #### 1 6842073 ####[facility] [address] [place] [address] Glucose Test strip (U) [Mass/Vol] Negative Normal Negative [facility] Comment on above: Performed By: #### 1 0890084 ####[address] [address] Hemoglobin Ql (U) Negative Normal Negative [facility] Comment on above: Performed By: #### 1 [id number] ####[address] [address] Ketones (U) [Mass/Vol] TRACE Abnormal Negative [facility] Comment on above: Performed By: #### 1 [id number] ####[address] [address] [place].plasma/Lithi um.RBC (Bld) [Mass ratio] 0-3 Normal 0-3 [facility] Comment on above: Performed By: #### 1 [id number] ####[address] [address] Mucus Ql (Urine sed) 2+ Normal [facility] Comment on above: Performed By: #### 1 [id number] ####[address] [address] Nitrite Ql (U) Negative Normal Negative [facility] Comment on above: Performed By: #### 1 [id number] ####[address] [address] pH (U) 6.5 [pH] Invalid Interpretation Code 5.0-9.0 [facility] Comment on above: Performed By: #### 1 6685091 ####[address] [address] Protein (U) [Mass/Vol] Negative Normal Negative [facility] Comment on above: Performed By: #### 1 [id number] ####[address] [address] Specific gravity (U) [Rel density] 1.015 Invalid Interpretation Code 1.005-1.030 [facility] Comment on above: Performed By: #### 1 [id number] ####[facility] [address] [place] [address] Type of Urine collection method Clean Catch Normal [facility] Comment on above: Performed By: #### 1 [id number] ####[facility] [address] [place] [address] Urobilinogen Qn (U) 0.2 {Dylan'U}/dL Normal 0.0-1.0 [facility] Comment on above: Performed By: #### 1 7853721 ####[facility] [address] [place] [address] WBC Auto Ql (U) Negative Normal Negative [facility] Comment on above: Performed By: #### 1 [id number] ####[facility] [address] [place] [address] WBC LM.HPF (Urine sed) [#/Area] 0-5 Normal 0-5 [facility] Comment on above: Performed By: #### 1 [id number] ####[facility] [address] [place] [address] URINALYSISOrdered By: Jennifer morris on 07-08-2023 Bacteria [...] Interpretation Code Negative [facility] UA Auto SS [place].plasma/Lithi um.RBC (Bld) [Mass ratio] 0-3 /HPF Normal [...] FT UA Auto SS Urobilinogen Qn (U) 0.7683529 {Dylan'U}/dL Normal 0.0 - 1.0 EU/dL [facility] UA Auto SS WBC Auto Ql (U) Negative (07/08/23 7:42 AM) Normal Negative [facility] UA Auto SS WBC LM.HPF (Urine sed) [#/Area] 0-5 /HPF Normal 0-5/HPF [facility] UA Auto SS Insurance Correspondenceon 0 07-01-2023 Insurance Correspondence [id number]#1.00TIFF [facility] Physician Referralon 024 Physician Referral [id number]#1.00TIFF [facility] Consent for Treatmenton Consent for Treatment [id number]#1.00TIFF [facility] US Thyroidon 06-27-2023 US Thyroid [...] with voice recognition artificial intelligence software, specifically [employer], [employer] and or [employer]. Substitutions may have occurred due to the inherent limitations of voice recognition and artificial intelligence software. Documentation services were performed after patient or guardian consented to allow [employer] to record this visit. D (more content [...] Result Comment: Perf ormed at: [facility] [address] [id number] PhD Mahnaz Conklin Performed By: #### 2 958118, 6493192, 3933017, [id number] ####[facility] [address] [place] [address] Auto Diffon 06-21-2023 Basophils/100 WBC (Bld) 0.3 % Normal 0.0-2.0 [facility] Comment on above: Order Comment: Order Added by Discern Expert. Performed By: #### 1 [id number], 0958770, 3162806, 0795782, 2797833 #### [facility] [address] [place] [address] Basophils/Leukocytes Auto (Bld) [Pure # fraction] 0.0 E9/L Normal 0.0-0.2 [facility] Comment on above: Order Comment: Order Added by Discern Expert. Performed By: #### 1 6576398, 4254966, 3663292, 9064013, 5298413 #### [facility] [address] [place] [address] Eosinophils/100 WBC (Bld) 0.6 % Normal 0.0-8.0 [facility] Comment on above: Order Comment: Order Added by Discern Expert. Performed By: #### 1 7350507, 5305772, 7866228, 9618086, 2651445 #### [facility] [address] [place] [address] Eosinophils/Leukocyt es Auto (Bld) [Pure # fraction] 0.0 E9/L Normal 0.0-0.5 [facility] Comment on above: Order Comment: Order Added by Discern Expert. Performed By: #### 1 0112171, 5483488, 8490158, 2804572, 0210071 #### [facility] [address] [place] [address] Lymphocytes/100 WBC (Bld) 20.6 % Normal 14.0-50.0 [facility] Comment on above: Order Comment: Order Added by Discern Expert. Performed By: #### 1 2425462, 4404267, 7542116, 0783838, 1102603 #### [facility] [address] [place] [address] Lymphocytes/Leukocyt es Auto (Bld) [Pure # fraction] 1.7 E9/L Normal 1.0-4.0 [facility] Comment on above: Order Comment: Order Added by Jay Expert. Performed By: #### 1 9686925, 4012535, 9162780, 1702742, 9436660 #### [facility] [address] [place] [address] Monocytes/100 WBC (Bld) 6.6 % Normal 4.0-14.0 [facility] Comment on above: Order Comment: Order Added by Jay Expert. Performed By: #### 1 5008726, 7866686, 5282394, 4656822, 7759207 #### [facility] [address] [place] [address] Monocytes/Leukocytes Auto (Bld) [Pure # fraction] 0.5 E9/L Normal 0.2-1.0 [facility] Comment on above: Order Comment: Order Added by Discern Expert. Performed By: #### 1 5572721, 3197499, 4653499, 1194534, 8104221 #### [facility] [address] [place] [address] Neutrophils/100 WBC (Bld) 71.9 % Normal 36.0-75.0 [facility] Comment on above: Order Comment: Order Added by Jay Expert. Performed By: #### 1 3373056, 9489704, 4671448, 6624971, 8251391 #### [facility] [address] [place] [address] Neutrophils/Leukocyt es Auto (Bld) [Pure # fraction] 5.8 E9/L Normal 2.0-7.5 [facility] Comment on above: Order Comment: Order Added by Discern Expert. Performed By: #### 1 8558482, 8916173, 6685178, 8235121, 8875963 #### [facility] [address] [place] [address] CBC w/ Auto Diffon 3 Erythrocyte distribution width (RBC) [Ratio] 12.6 % Normal 10.9-14.2 [facility] Comment on above: Performed By: #### 1 1663560, 2976929, 1369692, 7748983, 7234027 #### [facility] [address] [place] [address] Hematocrit (Bld) [Volume fraction] 37.8 % Normal 34.0-46.0 [facility] Comment on above: Performed By: #### 1 8723099, 7621672, 2417344, 1124706, 0910254 #### [facility] [address] [place] [address] Hemoglobin (Bld) [Mass/Vol] 12.7 g/dL Normal 12.0-16.0 [facility] Comment on above: Performed By: #### 1 0122036, 1638424, 5622332, 3586235, 8036017 #### [facility] [address] [place] [address] MCH (RBC) [Entitic mass] 32.2 pg Normal 27.0-34.0 [facility] Comment on above: Performed By: #### 1 6437028, 8894767, 0777259, 2816944, 6995427 #### [facility] [address] [place] [address] MCHC (RBC) [Mass/Vol] 33.8 g/dL Normal 31.4-36.0 [facility] Comment on above: Performed By: #### 1 5804546, 3287597, 5143227, 0229776, 7763258 #### [facility] [address] [place] [address] MCV (RBC) [Entitic vol] 95.5 fL Normal 80.0-100.0 [facility] Comment on above: Performed By: #### 1 2635068, 7793566, 6027505, 0974731, 1140020 #### [facility] [address] [place] [address] Platelet mean volume (Bld) [Entitic vol] 8.5 fL Normal 6.4-10.8 [facility] Comment on above: Performed By: #### 1 0530596, 0226069, 4420021, 6835488, 9633496 #### [facility] [address] [place] [address] Platelets (Bld) [#/Vol] 303.0 E9/L Normal 150.0-500.0 [facility] Comment on above: Performed By: #### 1 6968751, 3252113, 5658978, 2672970, 0927776 #### [facility] [address] [place] [address] RBC (Bld) [#/Vol] 4.0 E12/L Low 4.3-5.9 [facility] Comment on above: Performed By: #### 1 0514244, 7567683, 4692120, 8054670, 4463869 #### [facility] [address] [place] [address] WBC corrected for nucl RBC Auto (Bld) [#/Vol] 8.1 E9/L Normal 4.0-11.0 [facility] Comment on above: Performed By: #### 1 6554548, 6499645, 2035537, 1890065, 7432864 #### [facility] [address] [place] [address] CHEMISTRYOrdered By: SYSTEM SYSTEM on 06-21-2023 Albumin [...] Comment on above: Performed By: #### 1 4516399, 0463258, 2874625, 0367250, 1328364 #### [facility] [address] [place] [address] Albumin/Globulin [Mass ratio] 1.3 {ratio} Normal 1.1-2.2 [facility] Comment on above: Performed By: #### 1 8776276, 6509747, 5720137, 4159164, 6075801 #### [facility] [address] [place] [address] Alk Phos 83 Int._Unit/L Normal 21-98 [facility] Comment on above: Performed By: #### 1 5031606, 4211645, 8194671, 9986569, 0605853 #### [facility] [address] [place] [address] ALT 10 Int._Unit/L Normal 6-46 [facility] Comment on above: Performed By: #### 1 7738563, 7747621, 1088646, 9756405, 6647177 #### [facility] [address] [place] [address] Anion gap [Moles/Vol] 10 mmol/L Normal 6-16 [facility] Comment on above: Performed By: #### 1 0640334, 9640844, 9118758, 9659238, 2263919 #### [facility] [address] [place] [address] AST 15 Int._Unit/L Normal 5-43 [facility] Comment on above: Performed By: #### 1 6155860, 9890161, 3423482, 8874424, 4175976 #### [facility] [address] [place] [address] Bili Total 0.5 mg/dL Normal 0.0-1.1 [facility] Comment on above: Performed By: #### 1 2422056, 5047306, 1347714, 8505918, 0571463 #### [facility] [address] [place] [address] BUN/Creat Ratio 22 No Units High 10-20 [facility] Comment on above: Performed By: #### 1 5607481, 2883040, 3890961, 1829348, 0907474 #### [facility] [address] [place] [address] Calcium [Mass/Vol] 8.7 mg/dL Low 8.9-11.1 [facility] Comment on above: Performed By: #### 1 4767489, 2184406, 1628869, 0932356, 5019055 #### [facility] [address] [place] [address] Chloride [Moles/Vol] 103 mmol/L Normal 101-111 [facility] Comment on above: Performed By: #### 1 0589091, 8520263, 5733075, 1932553, 1664566 #### [facility] [address] [place] [address] CO2 [Moles/Vol] 29 mmol/L Normal 21-31 [facility] Comment on above: Performed By: #### 1 6532964, 4272045, 3620930, 8247241, 5498031 #### [facility] [address] [place] [address] Creatinine [Mass/Vol] 0.6 mg/dL Normal 0.5-1.3 [facility] Comment on above: Performed By: #### 1 3782870, 5157708, 4303913, 3093025, 4545388 #### [facility] [address] [place] [address] Globulin (S) [Mass/Vol] 3.0 g/dL Normal 1.4-4.0 [facility] Comment on above: Performed By: #### 1 0044352, 1972843, 6228741, 4289365, 6431044 #### [facility] [address] [place] [address] Glucose [Mass/Vol] 84 mg/dL Normal 55-199 [facility] Comment on above: Performed By: #### 1 2191725, 4633382, 4651745, 1032226, 4639367 #### [facility] [address] [place] [address] Potassium [Moles/Vol] 3.9 mmol/L Normal 3.5-5.3 [facility] Comment on above: Performed By: #### 1 0762024, 9073523, 2265349, 1988630, 2280839 #### [facility] [address] [place] [address] Protein [Mass/Vol] 6.8 g/dL Normal 6.0-7.8 [facility] Comment on above: Performed By: #### 1 6951934, 6734038, 9986997, 2039344, 3469510 #### [facility] [address] [place] [address] Sodium [Moles/Vol] 138 mmol/L Normal 135-145 [facility] Comment on above: Performed By: #### 1 7981938, 5542168, 0261674, 9003337, 7806562 #### [facility] [address] [place] [address] Urea nitrogen [Mass/Vol] 13 mg/dL Normal 5-21 [facility] Comment on above: Performed By: #### 1 0113575, 5904712, 1779932, 8247222, 8385224 #### [facility] [address] [place] [address] Consent for Treatmenton 05-25 Consent for Treatment [id number]#1.00TIFF Normal [facility] Free T4on 06-21-2023 Free T4 [Mass/Vol] 1.37 ng/dL Normal 0.58-1.64 [facility] Comment on above: Performed By: #### 1 6246347, 0992903, 8350274, 1485908, 5210141 #### [facility] [address] [place] [address] HEMATOLOGYOrdered By: SYSTEM SYSTEM on 06-21-2023 Basophils/100 [...] 8.1 E9/L Normal 4.0 - 11.0 E9/L [facility]eAuto[facility] Physician Orderon 06-21-2023 Physician Order [id number]#1.00TIFF Normal [facility] T3 Uptakeon 06-21-2023 T3 Uptake 46.6 % Normal 32.0-48.4 [facility] Comment on above: Performed By: #### 2 174000, 2758541, 3474677, 85767604 ####[facility] [address] [place] [address] T4 Totalon 06-21-2023 T4 18.8 microgram/dL High 4.6-9.1 [facility] Comment on above: Performed By: #### 2 069289, 8983304, 2168191, 38279625 ####[facility] [address] [place] [address] TSHon 06-21-2023 TSH Qn 0.07 m[IU]/L Low 0.34-5.60 [facility] Comment on above: Performed By: #### 2 174609, 2955133, 2128272, 22390731 ####[facility] [address] [place] [address] eGFRon 06-21-2023 GFR/1.73 sq M.predicted among non-blacks MDRD (S/P/Bld) [Vol rate/Area] mL/min/{1.73_m2} Normal >=59 [facility] Comment on above: Order Comment: Order added by Discern Expert. Performed By: #### 1 3478823, 9078665, 3127731, 6926539, 8240449 #### [facility] [address] [place] [address] Family Medicine Office/Clini c Noteon 06-20-2023 Family [...] with voice recognition software. Occasional wrong-word or ?ufdti-f-fjca? substitutions may have occurred due to the [...] know she has been working with her ADVERTISING INSERTER in regards to blood test and lab [...] lost some weight. But again is seeing ADVERTISING INSERTER in regards to these fluctuations denies any [...] weeks. Home care treatment may include: ? Wbki-hlt-rlrrgaq pain relievers. ? A warm, moist cloth placed over the ear. Severe cases may require a procedure to insert tubes in the ears (tympanostomy tubes) to drain the fluid. Follow these instructions at home: ? Take dbkq-xtx-xwvyrcd and prescription medicines only as told by [...] provider. Document Revised: 10/04/2021 Document Reviewed: 10/04/2021 [employer] Patient Education ? 2022 [place]. Endocrinology Thyroid Nodule A thyroid nodule is [...] or hyperthy (more content not included)... Normal [facility] MRI Spine Cervical w/o Contr elvira [...] for Treatmenton 05-23 Consent for Treatment [id number]#1.00TIFF Normal [facility] RAD - MRI Screening Formon 1 08-10-2022 RAD - MRI Screening Form [id number]#1.00TIFF Normal [facility] Physician Orderon 06-03-2023 Physician Order [id number]#1.00TIFF Normal [facility] CHEMISTRYOrdered By: SYSTEM [...] Not detected Invalid Interpretation Code Not Detected [facility] SendOutsSS Comment on above: Result Comment: This nucleic acid amplification test was developed and its performance characteristics determined by [employer]. Nucleic acid amplification tests include RT-PCR and [...] detected) result in this assay. Performed at: [address] [id number] PhD Mahnaz Conklin Vital Signs Date Time Vital Sign Value Performing Clinician Facility 09-20-2024 08:29-0400 Body height 167.6 cm Petra Calle MENTAL HEALTH PROFESSIONAL Work Phone: [facility] 09-20-2024 08:29-0400 Body mass index (BMI) [Ratio] 21.63 kg/m2 Petra Calle MENTAL HEALTH PROFESSIONAL Work Phone: [facility] 09-20-2024 08:29-0400 Body weight 60.78 kg Petra Calle MENTAL HEALTH PROFESSIONAL Work Phone: [facility] 09-20-2024 08:29-0400 Diastolic blood pressure 78 mm[Hg] Petra Calle MENTAL HEALTH PROFESSIONAL Work Phone: [facility] 09-20-2024 08:29-0400 Heart rate 65 /min Petra Gillmor MENTAL HEALTH PROFESSIONAL Work Phone: [facility] 09-20-2024 08:29-0400 SaO2% (BldA) [Mass fraction] 96 % Petra Jennifermor MENTAL HEALTH PROFESSIONAL Work Phone: [facility] 09-20-2024 08:29-0400 Systolic blood pressure 122 mm[Hg] Petra Jennifermor MENTAL HEALTH PROFESSIONAL Work Phone: [facility] 08-02-2024 11:32-0500 Body mass index (BMI) [Ratio] 21.47 kg/m2 Kraig Goodman MD Work Phone: [facility] 08-02-2024 11:32-0500 Body weight 60.33 kg Kraig Goodman MD Work Phone: [facility] 08-02-2024 11:32-0500 Diastolic blood pressure 68 mm[Hg] Kraig Goodman MD Work Phone: [facility] 08-02-2024 11:32-0500 Systolic blood pressure 102 mm[Hg] Kraig Goodman MD Work Phone: [facility] 04-06-2024 08:21-0400 Body height 167.6 cm Petra Jenniferlur MENTAL HEALTH PROFESSIONAL Work Phone: [facility] 04-06-2024 08:21-0400 Body mass index (BMI) [Ratio] 21.63 kg/m2 Petra Jennifermor MENTAL HEALTH PROFESSIONAL Work Phone: [facility] 04-06-2024 08:21-0400 Body weight 60.78 kg Petra Jennifermor MENTAL HEALTH PROFESSIONAL Work Phone: [facility] 04-06-2024 08:21-0400 Diastolic blood pressure 76 mm[Hg] Petra Jennifermor MENTAL HEALTH PROFESSIONAL Work Phone: [facility] 04-06-2024 08:21-0400 Heart rate 76 /min Petra Jennifermor MENTAL HEALTH PROFESSIONAL Work Phone: [facility] 04-06-2024 08:21-0400 SaO2% (BldA) [Mass fraction] 98 % Petra Jennifermor MENTAL HEALTH PROFESSIONAL Work Phone: [facility] 04-06-2024 08:21-0400 Systolic blood pressure 118 mm[Hg] Petra Alva MENTAL HEALTH PROFESSIONAL Work Phone: [facility] 03-01-2024 08:30-0400 Body height 167.6 cm Marta Puente MD Work Phone: [facility] 03-01-2024 08:30-0400 Body mass index (BMI) [Ratio] 21.79 kg/m2 Marta Puente MD Work Phone: [facility] 03-01-2024 08:30-0400 Body weight 61.24 kg Marta Puente MD Work Phone: [facility] 03-01-2024 08:30-0400 Diastolic blood pressure 69 mm[Hg] Marta Puente MD Work Phone: [facility] 03-01-2024 08:30-0400 Systolic blood pressure 100 mm[Hg] Marta Puente MD Work Phone: [facility] 11-12-2023 12:45-0400 Blood Pressure Location Matt Gudimella [facility] 11-12-2023 12:45-0400 Diastolic blood pressure 76 mm[Hg] Matt Gudimella [facility] 11-12-2023 12:45-0400 Heart rate 72 /min Matt Gudimella [facility] 11-12-2023 12:45-0400 SaO2% (BldA) [Mass fraction] 99 % Matt Gudimella [facility] 11-12-2023 12:45-0400 Systolic blood pressure 116 mm[Hg] Matt Gudimella [facility] 10-07-2023 10:22-0400 Blood Pressure Location [facility] 10-07-2023 10:22-0400 Body temperature 97.88 [degF] [facility] 10-07-2023 10:22-0400 Diastolic blood pressure 76 mm[Hg] [facility] 10-07-2023 10:22-0400 Heart rate 66 /min [facility] 10-07-2023 10:22-0400 Respiratory rate 16 /min [facility] 10-07-2023 10:22-0400 SaO2% (BldA) [Mass fraction] 100 % [facility] 10-07-2023 10:22-0400 Systolic blood pressure 116 mm[Hg] [facility] 08-04-2023 11:27-0500 Body height 167.6 cm Marta Puente MD Work Phone: [facility] 08-04-2023 11:27-0500 Body mass index (BMI) [Ratio] 21.14 kg/m2 Marta Puente MD Work Phone: [facility] 08-04-2023 11:27-0500 Body weight 59.42 kg Marta Puente MD Work Phone: [facility] 08-04-2023 11:27-0500 Diastolic blood pressure 81 mm[Hg] Marta Puente MD Work Phone: [facility] 08-04-2023 11:27-0500 Systolic blood pressure 111 mm[Hg] Marta Puente MD Work Phone: [facility] 07-24-2023 13:41-0500 Blood Pressure Location Matt Gudimella [facility] 07-24-2023 13:41-0500 Diastolic blood pressure 70 mm[Hg] Matt Gudimella [facility] 07-24-2023 13:41-0500 Heart rate 86 /min Matt Gudimella [facility] 07-24-2023 13:41-0500 SaO2% (BldA) [Mass fraction] 98 % Matt Gudimella [facility] 07-24-2023 13:41-0500 Systolic blood pressure 106 mm[Hg] Matt Gudimella [facility] 07-18-2023 16:16-0500 Blood Pressure Location [facility] 07-18-2023 16:16-0500 Diastolic blood pressure 60 mm[Hg] [facility] 07-18-2023 16:16-0500 Heart rate 92 /min [facility] 07-18-2023 16:16-0500 Respiratory rate 16 /min [facility] 07-18-2023 16:16-0500 SaO2% (BldA) [Mass fraction] 98 % [facility] 07-18-2023 16:16-0500 Systolic blood pressure 90 mm[Hg] [facility] 06-24-2023 13:49-0500 Blood Pressure Location Matt Gudimella [facility] 06-24-2023 13:49-0500 Diastolic blood pressure 72 mm[Hg] Matt Gudimella [facility] 06-24-2023 13:49-0500 Heart rate 89 /min Matt Gudimella [facility] 06-24-2023 13:49-0500 SaO2% (BldA) [Mass fraction] 97 % Matt Gudimella [facility] 06-24-2023 13:49-0500 Systolic blood pressure 98 mm[Hg] Matt Gudimella [facility] 06-20-2023 18:43-0500 Blood Pressure Location Filiberto Shoaib [facility] 06-20-2023 18:43-0500 Body temperature 98.06 [degF] Filiberto Shoaib [facility] 06-20-2023 18:43-0500 Diastolic blood pressure 76 mm[Hg] Filiberto Shoaib [facility] 06-20-2023 18:43-0500 Heart rate 96 /min Filiberto Shoaib [facility] 06-20-2023 18:43-0500 SaO2% (BldA) [Mass fraction] 98 % Filiberto Shoaib [facility] 06-20-2023 18:43-0500 Systolic blood pressure 122 mm[Hg] Filiberto Shoaib [facility] 12-28-2021 11:20-0400 Body height 167.64 cm Ric Tinoco Other [facility] Other 12-28-2021 11:20-0400 Body mass index (BMI) [Ratio] 21.14 kg/m2 Ric Tinoco Other [facility] Other 12-28-2021 11:20-0400 Body weight 59.42 kg Ric Tinoco Other [facility] Other 04-17-2021 15:40-0400 Body height 167.64 cm Ric Tinoco Other [facility] Other 04-17-2021 15:40-0400 Body mass index (BMI) [Ratio] 21.14 kg/m2 Ric Tinoco Other [facility] Other 04-17-2021 15:40-0400 Body weight 59.42 kg Ric Tinoco Other [facility] Other 05-31-2020 15:50-0500 [facility] [place] 05-31-2020 15:50-0500 BP Diastolic 79 mm[Hg] [facility] , [place] 05-31-2020 15:50-0500 BP Systolic 107 mm[Hg] [facility] [place] 05-31-2020 15:50-0500 Pulse (Heart Rate) 67 /min [facility] [place] 05-31-2020 15:50-0500 Pulse Oximetry 100 % [facility] , [place] 05-31-2020 15:50-0500 Respiratory Rate 20 /min [facility] [place] Encounters Encounter Date Encounter Type Care Provider Facility Start: 09-20-2024 End: 09-20-2024 Monae Calle NP Work Phone: [facility] Start: 09-20-2024 End: 09-20-2024 Bamboo flowsheet Petra Calle MENTAL HEALTH PROFESSIONAL Work Phone: [facility] Start: 09-20-2024 End: 09-20-2024 ambulatory PETRA RODRIGUEZJAYLA Not Available Start: 09-20-2024 End: 09-20-2024 Office outpatient visit 15 minutes Petra Rodriguezjayla MENTAL HEALTH PROFESSIONAL Work Phone: [facility] Comment on above: Migraine without aur a and without status migrainosus, not intractable (CMS/HCC) (Primary Dx); Neck pain; Paresthesias Start: 09-20-2024 End: 09-20-2024 ambulatory Suzie Alegria MD Facility: [facility] Start: 08-23-2024 End: 08-23-2024 ambulatory Suzie Alegria [...] End: 08-02-2024 ambulatory Suzie Alegria MD Facility: [facility] Start: 07-21-2024 End: 07-21-2024 Telephone encounter Kraig Goodman MD Work Phone: [facility] Start: 05-22-2024 End: 05-24-2024 Refill Kraig Goodman MD Work Phone: [facility] Comment on above: Menopausal symptoms Start: 05-10-2024 End: 05-10-2024 ambulatory SUHAS MCGHEE [facility] Start: 05-10-2024 End: 05-10-2024 Patient encounter procedure SUHAS MCGHEE [facility] Start: 04-06-2024 End: 04-06-2024 ambulatory PETRA CALLE Not Available Start: 04-06-2024 End: 04-06-2024 Office outpatient visit 15 minutes Petra Calle MENTAL HEALTH PROFESSIONAL Work Phone: [facility] Comment on above: Cervical radiculopat hy (Primary Dx); Lumbosacral radiculopathy; Paresthesias; Migraine without aura and without status migrainosus, not intractable (CMS/HCC); Myalgia Start: 04-05-2024 End: 04-05-2024 ambulatory [facility] Start: 03-29-2024 End: 03-29-2024 ambulatory Suzie [facility] Start: 03-08-2024 End: 03-08-2024 Bamboo flowsheet Edwin [...] [facility] Start: 03-01-2024 End: 03-01-2024 Bamboo flowsheet Marta Puente MD Work Phone: [facility] Start: 03-01-2024 End: 03-01-2024 Office outpatient visit 15 minutes Marta Puente MD Work Phone: [facility] Comment on above: Mass of thyroid nadir on (Primary Dx) Start: 03-01-2024 End: 03-01-2024 ambulatory MARTA PUENTE Not Available Start: 01-13-2024 End: 01-13-2024 ambulatory Marta Michele Ray Facility:[facility] Start: 01-13-2024 End: 01-13-2024 Patient encounter procedure Marta Puente [facility] Start: 11-12-2023 End: 11-12-2023 ambulatory Matt Gurick Facility:[facility] Start: 11-12-2023 End: 11-12-2023 Patient encounter procedure Matt Swapnala [facility] Start: 10-21-2023 End: 10-21-2023 Patient encounter procedure SUHAS MCGHEE [facility] Start: 10-21-2023 End: 10-21-2023 ambulatory CLARKD F SUMI Facility:[facility] Start: 10-07-2023 End: 10-07-2023 ambulatory Nancy MCKNIGHT Facility:[facility] Start: 10-07-2023 End: 10-07-2023 Patient encounter procedure Nancy MCKNIGHT [facility] Start: 09-10-2023 End: 09-10-2023 ambulatory CLARKD F SUMI Facility:[facility] Start: 09-10-2023 End: 09-10-2023 Patient encounter procedure AHMARIELENAD F SUMI [facility] Start: 08-04-2023 Bamboo flowsalexandre rubio MD [facility] Start: 08-04-2023 Bamboo flowsheet Marta rubio MD Work Phone: [facility] Start: 08-04-2023 End: 08-04-2023 Office outpatient visit 15 minutes Marta Puente MD Work Phone: [facility] Comment on above: Mass of thyroid nadir on (Primary Dx); Hyperthyroidism (CMS/HCC) Start: 07-29-2023 ambulatory Nancy MCKNIGHT [facility] ity: Po Start: 07-24-2023 End: 07-24-2023 ambulatory Matt Kali Facility:[facility] Start: 07-24-2023 End: 07-24-2023 Patient encounter procedure Matt Guannamelkeysha [facility] Start: 07-18-2023 End: 07-18-2023 ambulatory Nancy MCKNIGHT Facility:[facility] Start: 07-18-2023 End: 07-18-2023 Patient encounter procedure Nancy MCKNIGHT [facility] Start: 07-18-2023 End: 07-18-2023 ambulatory Matt Bethmelsc Facility:[facility] Start: 07-18-2023 End: 07-18-2023 Patient encounter procedure Matt Gudimella [facility] Start: 07-14-2023 End: 07-14-2023 ambulatory MD Ruben Mcknight Work Phone: [facility] Work Phone: Start: 07-14-2023 End: 07-14-2023 Departed Referred MD Ruben Mcknight Work Phone: [facility] Start: 07-08-2023 End: 10-07-2023 ambulatory Matt Gudimella Facility:[facility] Start: 07-08-2023 End: 10-07-2023 Recurring Matt Gudimella [facility] Start: 06-27-2023 ambulatory Matt Gudimella Facilit y:[facility] Start: 06-27-2023 End: 06-27-2023 ambulatory Matt Gudimella Facility[facility] Start: 06-27-2023 End: 06-27-2023 Patient encounter procedure Matt Gudimella [facility] Start: 06-24-2023 End: 06-24-2023 ambulatory Matt Gudimella Facility:[facility] Start: 06-24-2023 End: 06-24-2023 Patient encounter procedure Matt [facility]udimella [facility] Start: 06-21-2023 End: 06-21-2023 ambulatory Filiberto Cramer Facility:[facility] Start: 06-21-2023 End: 06-21-2023 Patient encounter procedure Filiberto Cramer [facility] Start: 06-20-2023 End: 06-20-2023 ambulatory Filiberto Cramer Facility:[facility] Start: 06-20-2023 End: 06-20-2023 Patient encounter procedure Filiberto Cramer [facility] Start: 06-09-2023 End: 06-09-2023 ambulatory Narendranath Lakshmipathy Facility:[facility] Start: 06-09-2023 End: 06-09-2023 Patient encounter procedure Sharona Oviedopathy [facility] Start: 04-28-2023 End: 04-28-2023 Patient encounter procedure EBER POTTS [facility] Start: 11-05-2022 End: 11-06-2022 ambulatory ERICRANDOROTHEA OVIEDOPATHY . Facility:[facility] Start: 10-22-2022 End: 10-22-[address] DOCTOR ALEJANDRE Facility:[facility] Start: 10-01-2022 End: 10-02-2022 ambulatory ISAURA KELLY . Facility:[facility] Start: 08-27-2022 End: 08-27-2022 ambulatory Ric Tinoco Other [facility] Other Start: 08-27-2022 Telephone encounter Ric Tinoco [facility] Start: 06-11-2022 End: 06-12-[address] HERB RIVERO . Facility:[facility] Start: 05-28-2022 End: 05-28-[address] HERB RIVERO . Facility:[facility] Start: 03-05-2022 End: 03-06-[address] HERB RIVERO . Facility:[facility] Start: 12-28-2021 End: 12-28-2021 ambulatory Ric Tinoco Other [facility] Other Start: 12-28-2021 Office outpatient vi sit 15 minutes Ric Tinoco [facility] Start: 12-03-2021 End: 12-03-2021 Patient encounter procedure Kraig Goodman [facility] Start: 11-08-2021 End: 11-09-[address] HERB RIVERO . Facility:[facility] Start: 07-13-2021 End: 10-11-2021 Patient encounter procedure Nancy MCKNIGHT [facility] Start: 04-17-2021 Office outpatient vi sit 15 minutes Ric GR[facility] Start: 05-31-2020 End: 05-31-2020 Emergency department patient visit KATHY GHOSH [facility] Start: 05-31-2020 End: 05-31-2020 Emergency department patient visit Kathy Ghosh Work Phone: [facility] ED Comment on above: Chest wall [...] thyroid nodule Start: 06-18-2021 Mammography Petra cardoza MENTAL HEALTH PROFESSIONAL Work Phone: Start: 06-12-2020 Local anesthetic sac ral epidural block Nancy MCKNIGHT Comment on above: @ [facility] per pain mgmt Start: 05-31-2020 Ecg routine ecg w/le ast 12 lds w/i&r KATHYSRIKANTH JAQUEZCHER Start: 05-31-2020 Ecg routine ecg w/le ast 12 lds w/i&r Kathy Ghosh Work Phone: Start: 12-06-2019 Interbody fusion of lumbar spine by anterior approach Nancy MCKNIGHT Comment on above: [facility] Start: 06-19-2018 Removal of sebaceous cyst Nancy MCKNIGHT Comment on above: Right inner thigh Start: 06-23-2006 Augmentation mammoplasty Nancy MCKNIGHT H/O: hysterectomy S/P laparoscop ic hysterectomy MD Ruben Mcknight Work Phone: laparoscopy 4 Nancy HYDE Comment on above: 2014 Dr. Golden endo metriosis laparoscopy 5 Nancy HYDE Comment on above: 2014 Dr. Golden endo metriosis lumbar microdisectomy 5 Rex MCKNIGHT Comment on above: 10/2017 Dr. Barnes @ [facility] lumbar microdisectomy 6 Rex MCKNIGHT Comment [...] 8:20 AM EDT Office Visit LISBETH LEMONS [address] [place] [phone] Petra Calle NP [address] [place] [address] L[facility] LEMONS Start: 09-20-2024 End: 09-20-2024 Patient encounter procedure [facility] Start: 2024 Screening for malignant neoplasm of breast Mammogram [facility] Start: 08-02-2024 End: 08-02-2024 Patient encounter procedure [facility] Comment on above: Arrived Start: 04-28-2024 End: 04-28-2024 Patient encounter procedure 04/28/2024 9:40 AM EST Office Visit [facility] [address] [place] [id number] Suhas Mcghee MD [address] [place] [address] [facility] Start: 04-06-2024 End: 04-06-2024 Patient encounter procedure 04/06/2024 8:20 AM EDT Office Visit [facility] [address] [place] [phone] Petra Calle, MENTAL HEALTH PROFESSIONAL [address] [place] [address] [facility] Start: 03-08-2024 End: 03-08-2024 Patient encounter procedure [facility] Comment on above: Arrived Start: 03-01-2024 End: 03-01-2024 Patient encounter procedure 03/01/2024 8:30 AM EDT [facility] [address] [place] [address] Marta Puente MD [address] [facility] [address] [place] [address] Arrived [facility] Comment on above: Arrived Start: 02-22-2024 Influenza vaccination Influenza Vacc ine (#1) [facility] Start: 08-04-2023 End: 08-04-2023 Patient encounter procedure 08/04/2023 11:20 AM EST Office Visit [facility] [address] [place] [address] Marta Puente MD 112 [facility] [address] [place] [address] Arrived [facility] Comment on above: Arrived Start: 02-21-2023 Influenza vaccination Influenza Vacc ine (#1) [facility] Start: 02-22-2020 Influenza vaccination Flu vaccine (# 1) [facility] [place] Start: 2005 Screening for malignant neoplasm of cervix Pap Smear [facility] EKG 12 Lead EKG 12 Lead ECG STAT 05/31/2020 4:01 PM [facility] [place], [place] IGP, APT HPV,RFX 16/18,45 IGP, APT HPV,RFX 16/18,45 Lab Routine Vaginal Pap smear Screening for HPV (human papillomavirus) Ordered: 08/02/2024 [facility] Work Phone: Comment on above: Ordered: 08/02/2024 Immunizations Immunization Date Immunization Notes Care Provider Fa cili 10-28-2020 COVID-19, mRNA, LNP-S, PF, 30 mcg/0.3 mL dose; Translations: [Pfizer-BioNTech COVID-19 Vaccine] Nancy MCKNIGHT [facility] Comment on above: Reason for Medicatio n: Prophylaxis 10-07-2020 COVID-19, mRNA, LNP-S, PF, 30 mcg/0.3 mL dose; Translations: [Pfizer-BioNTech COVID-19 Vaccine] Nancy MCKNIGHT [facility] Comment on above: Reason for Medicatio n: Prophylaxis 04-15-2020 influenza, injectable, quadrivalent, contains preservative Nancy MCKNIGHT [facility] 04-15-2020 influenza virus vaccine, unspecified formulation Marta Puente MD Work Phone: [facility] 03-23-2018 influenza virus vaccine, unspecified formulation Nancy MCKNIGHT [facility] 03-23-2017 influenza, injectable, quadrivalent, contains preservative Marta Puente MD Work Phone: [facility] 03-10-2013 tetanus toxoid, reduced diphtheria toxoid, and acellular pertussis vaccine, adsorbed Nancy MCKNIGHT [facility] Comment on above: Reason for Medicatio n: Other (see comment) 10-13-2007 tetanus toxoid, reduced diphtheria toxoid, and acellular pertussis vaccine, adsorbed Filiberto Cramer [facility] 10-24-1999 hepatitis A and hepatitis B vaccine Filiberto Cramer [facility] 01-25-1998 measles, mumps and rubella virus vaccine Filiberto Cramer [facility] NEGATED: Highlighted row has not occurred!07-18-2023 influenza virus vaccine, unspecified formulation Nancy MCKNIGHT [facility] NEGATED: Highlighted row has not occurred!06-20-2023 influenza virus vaccine, unspecified formulation Filiberto Cramer [facility] Payers Date Payer Category Payer Self-pay [id number] 2023 Unknown 2022 Medicaid [id number] 2022 Medicaid [id number] 2006 Private Health Insurance [id number] 1984 Unknown [id number] 2.16.8 40.1.324634.3.579.2.647 1984 Unknown [id number] 2.16.84 0.1.392986.3.579.2.174 1984 Unknown [id number] 2.16.84 0.1.014297.3.579.2.593 1984 Unknown [id number] 2.16.84 0.1.590086.3.579.2.593 1984 Unknown [id number] 2.16.84 0.1.620215.3.579.2.593 1984 Unknown [id number] 2.16.84 0.1.729924.3.579.2.593 1984 Unknown [id number] 2.16.84 0.1.175251.3.579.2.593 1984 Unknown [id number] 2.16.84 0.1.131026.3.579.2.593 1984 Unknown [id number] 2.16.84 0.1.074604.3.579.2.593 1984 Unknown [id number] 2.16.8 40.1.876694.3.579.2. 1984 Unknown [id number] 2.16.8 40.1.562368.3.579.2 1984 Unknown [id number] 2.16.8 40.1.174543.3.579.2 1984 Unknown [id number] 2.16.8 40.1.024512.3.579.2 1984 Unknown [id number] 2.16.8 40.1.922704.3.579.2 1984 Unknown [id number] 2.16.8 40.1.276832.3.579.2 1984 Unknown [id number] 2.16.8 40.1.547836.3.579.2 1984 Unknown [id number] 2.16.8 40.1.587509.3.579.2 1984 Unknown [id number] 2.16.8 40.1.791386.3.579.2 1984 Unknown [id number] 2.16.8 40.1.662757.3.579.2 1984 Unknown [id number] 2.16.8 40.1.939630.3.579.2 1984 Unknown [id number] 2.16.8 40.1.116778.3.579.2 1984 Unknown [id number] 2.16.8 40.1.699966.3.579.2 1984 Unknown [id number] 2.16.8 40.1.368371.3.579.2.727 1984 Unknown [id number] 2.16.8 40.1.417516.3.579.2.727 1984 Unknown [id number] 2.16.8 40.1.063094.3.579.2.727 1984 Unknown [id number] 2.16.8 40.1.870301.3.579.2.727 1984 Unknown [id number] 2.16.84 0.1.456327.3.579.2.1258 1984 Unknown [id number] 2.16.84 0.1.391665.3.579.2.1258 1984 Unknown [id number] 2.16.84 0.1.014522.3.579.2.1258 1984 Unknown [id number] 2.16.84 0.1.505641.3.579.2.1258 1984 Unknown [id number] 2.16.84 0.1.758609.3.579.2.1258 1984 Unknown [id number] 2.16.84 0.1.849789.3.579.2.1258 1984 Unknown [id number] 2.16. 840.1.027233.3.579.2. 1984 Unknown [id number] 2.16 840.1.228835.3.579.2. 1984 Unknown [id number] 2.16 840.1.798320.3.579.2. 1984 Unknown [id number] 2.16. 840.1.044815.3.579.2. 1984 Unknown [id number] 2.16. 840.1.562602.3.579.2. 1959 Private Health Insurance [id number] 1.2.840.782204.1.13.239.2.7.3.062755.315 Unknown [id number] 2.16.8 40.1.181558.3.579.2.531 Social History Date Type Detail Facility Start: 05-31-2020 End: 05-06-2023 Tobacco smoking status NHIS Never smoker [employer] [facility] Start: 05-31-2020 End: 05-06-2023 Tobacco use and exposure [facility] to SARS-CoV -2 (event) [facility] sure [facility] Tobacco smoking status Never [facility] Start: 07-03-2023 End: 09-20-2024 Sex Assigned At Female [facility] Other Start: 1985 Sex Assigned At Female [facility] Start: 07-31-2023 End: 09-20-2024 Alcohol intake Ex-drinker [...] fusion (ALIF) Orthopaedic bone screw, non-bioabsorbable, non-sterile +[id number] FDA Start: 12-06-2019 Anterior lumbar interbody fusion (ALIF) Orthopaedic bone screw, non-bioabsorbable, non-sterile +[id number] FDA Start: 12-06-2019 Anterior lumbar interbody fusion (ALIF) Bone-screw internal spinal fixation system, non-sterile +[id number] FDA Start: 12-06-2019 Anterior lumbar interbody fusion (ALIF) Bone-screw internal spinal fixation system, non-sterile +[id number] FDA Start: 12-06-2019 Anterior lumbar interbody fusion (ALIF) Spinal fusion graft kit ()[id number] FDA Start: 12-06-2019 Anterior lumbar interbody fusion (ALIF) Spinal bone screw, non-bioabsorbable ()[id number] FDA Start: 12-06-2019 Anterior lumbar interbody fusion (ALIF) Metallic spinal fusion cage, non-sterile ()[id number] FDA Start: 12-06-2019 Anterior lumbar interbody fusion (ALIF) Bone-screw internal spinal fixation system, non-sterile +[id number] FDA Start: 12-06-2019 Functional Status Date Assessment Result Facility 11-12-2023 Functional Status N/A [facility] 10-07-2023 Functional Status N/A [facility] 07-24-2023 Functional Status N/A [facility] 07-18-2023 Functional Status N/A [facility] 06-24-2023 Functional Status N/A [facility] 06-20-2023 Functional Status N/A [facility] Clinical Notes 04-17-2021 to 09-20-2024 Petra [...] Lumbar radiculopathy Menopause ovarian failure 2021 Migraine 2017 Neck pain 07/30/2018 Nontoxic single thyroid [...] likely related to hyperthyroidism. She does see long lines operator for this. . TESTING AND RECORDS: We [...] this. . . . Plan continue with long lines operator for thyroid Continue with Dr. Cottrell, pain [...] clinic: 6 months documented in this encounter [facility] 08-02-2024 History of Presen t [...] Review Audit Reviewed by Helen Shaver MA (Maxillofacial Pathology) on 08/02/24 at 1134 Medication Order Taking? Sig Documenting Provider Last Dose Status baclofen (Lioresal) 10 MG tablet [id number] TAKE 1 TABLET BY MOUTH TWICE DAILY (IN THE MORNING AND BEFORE BEDTIME) Petra Calle NP Active erenumab (Aimovig) 140 MG/ML injection [id number] INJECT 1 SYRINGE SUBCUTANEOUSLY ONCE EVERY MONTH Petra Calle NP Active estradiol (Estrace) 2 MG tablet [id number] Take 1 tablet (2 mg) by mouth Daily Kraig Goodman MD Active gabapentin (Neurontin) 600 MG tablet [id number] No Take 1 tablet by mouth Daily Kraig Goodman MD Taking Active methIMAzole (Tapazole) 10 MG tablet [id number] No Take 10 mg by mouth Marta Puente MD Taking Active OXcarbazepine (Trileptal) 300 MG tablet [id number] TAKE 1/2 (ONE-HALF) TABLET BY MOUTH IN THE MORNING AND 1 TO 2 TABLETS AT BEDTIME Petra Calle NP Active Discontinued 08/02/24 113 Rimegepant Sulfate (Nurtec) 75 MG tablet dispersible [id number] Take 1 tablet by mouth Daily as needed (1 tablet at the onset of a migraine. do not repeat. no more than 2 days/week) Petra Calle NP Active tiZANidine (Zanaflex) 4 MG tablet [id number] Take 1 tablet (4 mg) by mouth at bedtime Petra Calle NP Active traMADol (Ultram) 50 MG tablet [id number] No TAKE 1 TABLET BY MOUTH THREE [...] requisition? Answer: Yes documented in this encounter [facility] 07-21-2024 Telephone encounter Note error [facility] 07-21-2024 Miscellaneous Notes error documented in this encounter [facility] 05-10-2024 Evaluation + Plan note Diagnostic Tests PendingT3 Free 05/10/24 Future Scheduled TestsLab Miscellaneous-LC 07/24/23 [facility] 03-08-2024 History of Presen t illness Narrative Images from the original note were not included. Reason for Appointment: EMG Patient: Jessica Griffiths : 1985 EMG Computer: [employer] Referring Physician: Eber Potts NP EMG: BLE party planner: Deya Mcnulty CMA Office Location: [place] Reason for EMG: c/o leg pain and pressure. Back pain. Radiates in the hips, shooting pains down the legs. Hx of back surgery. No Hx of DM, not taking blood thinners. Comments: Procedure explained to the patient who expressed understanding. documented in this encounter [facility] 03-01-2024 History of Presen t [...] W IMAGING GUIDANCE 07/14/2023 thyroid FNA HYSTERECTOMY 2017 LAVH, BSO LUMBAR FUSION 12/06/2019 L5-S1 anterior [...] further routine US documented in this encounter [facility] 10-21-2023 Evaluation + Plan note Diagnostic Tests PendingT3 Free 10/21/23 Future Scheduled TestsLab Miscellaneous-LC 07/24/23 [facility] 10-07-2023 Hospital Discharg e instructions Patient Education [...] Treatment for this condition includes: Antibiotic medicine. Bkkt-hhe-sxvvsqy medicines to treat discomfort. Drinking enough water [...] Follow these instructions at home: Medicines Take gnqd-ndv-roufqes and prescription medicines only as told by [...] provider. Document Revised: 01/19/2021 Document Reviewed: 01/19/2021 [employer] Patient Education 2022 [place]. Follow Up Care 10/07/2023 07:28:28 With:Nancy MCKNIGHT MD, FAM Address: When: only if needed [facility] 08-04-2023 History [...] per Dr Mcghee documented in this encounter [facility] 07-24-2023 Evaluation + Plan note Future Scheduled TestsLab Miscellaneous-LC 07/24/23Echo Transthoracic Complete 07/24/23 [facility] [place] 07-24-2023 Evaluation + Plan note Future Scheduled TestsLab Miscellaneous-LC 07/24/23 [facility] 07-18-2023 Evaluation + Plan note Diagnostic Tests PendingT3 Reverse, Serum 07/18/23Thyroid Perox.tpo Ab 07/18/23TgAb+Thyroglobulin,NIGEL or KELVIN 07/18/23 [facility] 07-18-2023 Hospital Discharg e instructions Patient Education [...] surgery. Follow these instructions at home: Take jhqc-uxp-xodconn and prescription medicines only as told by [...] condition. Where to find more information [place] [employer] and Digestive and Kidney Diseases: [...] provider. Document Revised: 08/02/2022 Document Reviewed: 08/02/2022 [employer] Patient Education 2022 [place]. Follow Up Care 07/18/2023 07:34:13 With:Nancy MCKNIGHT MD, FAM Address: When: only if needed [facility] [place] 06-21-2023 Evaluation + Plan note Diagnostic Tests PendingT3 Free 06/21/23 Future Scheduled TestsCBC w/ Auto Diff 06/20/23Comprehensive Metabolic Panel 06/20/23Free T4 06/20/23 [facility] 06-20-2023 Hospital Discharg e instructions Patient Education [...] few weeks. Home care treatment may include: Ljqu-grd-lhqoagy pain relievers. A warm, moist cloth placed over the ear. Severe cases may require a procedure to insert tubes in the ears (tympanostomy tubes) to drain the fluid. Follow these instructions at home: Take ayag-kyb-yzyxsng and prescription medicines only as told by [...] provider. Document Revised: 10/04/2021 Document Reviewed: 10/04/2021 [employer] Patient Education 2022 [employer] 06/20/2023 19:03:16 Thyroid Nodule Thyroid Nodule [...] in your thyroid nodule or nodules. Take zhnk-qcg-lyeemqz and prescription medicines only as told by [...] provider. Document Revised: 04/22/2022 Document Reviewed: 04/22/2022 [employer] Patient Education 2022 [place]. Follow Up Care 06/20/2023 07:23:01 With:Nancy MCKNIGHT MD, FAM Address: [address] [place] [address]- When: Unknown [facility] 06-20-2023 Evaluation + Plan note Future Scheduled TestsT4 Total 06/20/23CBC w/ Auto Diff 06/20/23Comprehensive Metabolic Panel 06/20/23T3 Free 06/20/23T3 Uptake 06/20/23Thyroid Stimulating Hormone 06/20/23Free T4 06/20/23 [facility] 10-01-2022 Note CONSULTATION [...] our patients to inform us about any udwc-art-ginuatr medications or herbal remedies/nutritional supplements/alternative remedies. 2. [...] options with their primary care provider. [facility] 06-11-2022 Note CONSULTATION CONSULTATION DATE: 06/11/2022 CHIEF [...] and concurs. CC: Nancy Mcknight M.D. [facility] 03-05-2022 Note PAIN MANAGEMENT CONS ULTATION CONSULTATION [...] along this region. CC: Dr. Mcknight [facility] 12-28-2021 Evaluation note Encounter Date Diagnosis Assessment [...] follow her up on an as-needed basis [facility] 06-13-2022 Evaluation + Plan note Diagnostic Tests Pending * Insulin Level Total 12/03/21 * T3 Free 12/03/21 * FSH Level 12/03/21 Future Scheduled Tests Laboratory* COVID-19 ([facility] [facility]13/21 [facility] [facility]2022 NoteCONSULTATION CONSULTATION DATE: 11/08/2021 This is a [...] does plan on seeing Dr. Damon in [place] for. Activities that aggravate her neck are [...] of care and would like to proceed. [facility] Signed and Approved by: SIAURA KELLY . 11/12/2021 15:05:00[facility]01-21-2022 Evaluation + Plan note Future Scheduled Tests Laboratory* [place] [place]13/21 [facility]10-26-2021 Evaluation note* Encounter Date Diagnosis Assessment Notes Treatment Notes Treatment Clinical Notes Mar, Spondylolisthesis at L5-S1 level (ICD-10 - M43.17) I answered a number of questions for the patient. I think a transforaminal injection may be beneficial. I also believe that she could potentially benefit from a dorsal column stimulator. She is seeing a another neurologist at [facility] and I am interested in what [...] region with neurogenic claudication (ICD-10 - M48.062) [facility] Other evaluation + Plan note Future Appointments Appointment Date:06/27/2023 07:30:00 AM Scheduled Provider: Location:.[facility] Appointment Type:US Thyroid/Neck/Chest (FT) Appointment Date:06/27/2023 08:00:00 AM Scheduled Provider: Location:.[facility] Appointment Type:CV EKG (FT) Appointment Date:07/29/2023 12:40:00 PM Scheduled Provider:Nancy MCKNIGHT MD Location:[facility] Appointment Type: Open Future Scheduled Tests Laboratory* UA With Cult Reflex 06/24/23 * CBC w/ Auto Diff 06/20/23 * Comprehensive Metabolic Panel 06/20/23 * Lipid Panel 06/24/23 * Free T4 06/20/23 Radiology* US Thyroid 06/27/23 [facility] Evaluation + Plan note Future Appointments Appointment Date:07/29/2023 12:40:00 PM Scheduled Provider:Nancy MCKNIGHT MD Location:[facility] Appointment Type: Open Future Scheduled Tests Laboratory* UA With Cult Reflex 06/24/23 * CBC w/ Auto Diff 06/20/23 * Comprehensive Metabolic Panel 06/20/23 * Lipid Panel 06/24/23 * Free T4 06/20/23 Radiology* US FNA w/ Guidance, first lesion 06/27/23 * NM Thyroid Imaging w/ Uptk Multiple 06/27/23 [facility] Future Appointments Appointment Date:09/11/2023 08:00:00 AM Scheduled Provider: [facility] Echo () Diagnostic Tests Pending * T3 Free 09/10/23 * Thyrotropin Receptor Antibody, Serum 09/10/23 Future Scheduled Tests Laboratory* Lab Miscellaneous-LC 2/1/24 Radiology* Echo Transthoracic Complete 09/11/23 [facility] noteNo InformationNort cafegive Other evaluation noteNo assessment information available [facility] Work Phone: Evaluation note* Diagnosis Mass of [...] breast implants replaced 2016 Surgical History LAVH/BSO 3-22-18 Surgical History Micro discectomy L5-S1 2017 Surgical History Hysterectomy; total 08/2017 Surgical History Micro discectomy L5-S1 10/2017 Surgical History ALIF-Doctor Alejandrina Hospitalization History see surgical hx [facility] [employer] Other Hospital course Narrative No data available for this section [facility] No data available for this section [facility] No data available for this section [facility] Summary Purpose Family History No Family History Records Found Relationship Condition Age at Onset Recorded Date/T rody Not Specified Healthy female adult Unknown father Osteoarthritis Unknown Degeneration of intervertebral disc Unkno wn Advance Directives No Advanced Directives Records FoundDocuments on File Type Date Recorded Patient It Infrastructure Architect Expl anation ACP-Advance Directive ACP-Power of Phosphoric Acid Operator Advance 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 * Chest Pain: Musculoskeletal (Iranian) documented in this encounter Assessments Diagnosis Chest wall pain Painful respiration Reason for Referral Reason Evaluate and Treat C onsider for Dorsal Column Stimulator Diagnosis 1 Spondylolisthesis at L5-S1 level (M43.17) Referral Organization [facility] urosurgery Referring Provider First Name Ric Referring Provider Last Name Alejandrina Referring Provider Specialty Neurologica l Surgery Referred Organization Unknown Facility Referred Provider Mansoor Summers Referred Provider Specialty Pain Medicin e Referral Priority Routine Additional Source Comments INFORMATION SOURCE (unrecogn ized section and content) DATE CREATED AUTHOR 01/14/2020 [facility] [place] DATE CREATED AUTHOR AUTHOR'S ORGANIZ ATION 06/01/2020 [facility] DATE CREATED AUTHOR AUTHOR'S ORGANIZ ATION 11/06/2022 [facility] DATE CREATED AUTHOR AUTHOR'S ORGANIZ ATION 08/01/2023 [facility] DATE CREATED AUTHOR AUTHOR'S ORGANIZ ATION 05/12/2024 [facility] DATE CREATED AUTHOR AUTHOR'S ORGANIZ ATION 05/17/2024 [facility] DATE CREATED AUTHOR AUTHOR'S ORGANIZ ATION 09/20/2024 [facility] EPIC DATE CREATED AUTHOR AUTHOR'S ORGANIZ ATION 09/26/2024 [facility] Reason for Visit (unrecogniz ed section and [...] July 14, 2023 End: July 14, 2023 Manager Business Relationship Specialty Start Date End Date Nancy Mcknight MD [address] [place] [address] PCP - General 05/07/23 Manager Business Relationship Specialty Start Date End Date Nancy Mcknight MD [address] [place] [address] PCP - General 05/07/23 Manager Business Relationship Specialty Start Date End Date Nancy Mcknight MD [address] [place] [address] PCP - General 05/07/23 Manager Business Relationship Specialty Start Date End Date Nancy Mcknight MD [address] [place] [address] PCP - General 05/07/23 Manager Business Relationship Specialty Start Date End Date Nancy Mcknight MD [address] [place] [address] PCP - General 05/07/23 Manager Business Relationship Specialty Start Date End Date Nancy Mcknight MD [address] [place] [address] PCP - General 05/07/23 Manager Business Relationship Specialty Start Date End Date Nancy Mcknight MD [address] [place] [address] PCP - General 05/07/23 Manager Business Relationship Specialty Start Date End Date Nancy Mcknight MD [address] [place] [address] PCP - General 05/07/23 Manager Business Relationship Specialty Start Date End Date Nancy Mcknight MD [address] [place], [place] [address] [id number] PCP - General 05/07/23 Manager Business Relationship Specialty Start Date End Date Nancy Mcknight MD [address] [place] [address] PCP - General 05/07/23 Petra Calle NP [address] Nurse Practitioner Neurology 09/20/24 Manager Business Relationship Specialty Start Date End Date Nancy Mcknight MD [address] [place] [address] PCP - General 05/07/23 Petra Calle NP [address] Nurse Practitioner Neurology 09/20/24 RalfEdwin DO [address] [place] [address] Referring Physician Neurology 09/20/24 Goals (unrecognized section [...] BE BASED ON THE PRIMARY CLINICAL RECORDS. [employer] [facility]. provides no warranty or guarantee of the accuracy or completeness of information in this document.
--- NOTE | 2024-12-20 14:42 | P.CN_ITS ---
Consult Note: HPI Data of Consult Patient: known to practice within the last 3 years Consult date: 12/20/24 Requesting Physician: Suzie Alegria MD Primary Care Provider: Non-Staff Physician, Consult Narrative Reason for consult: neck, right arm pain Narrative: 39yof who presents for assessment. longstanding neck, right arm pain history. continues to have tingling into right arm. continues in a provider directed home exercise program. uses tramadol, baclofen, gabapentin. denies adverse med side effects. cc:: CC: Suzie Alegria MD Review of Systems ROS Status of ROS 10 or more systems reviewed and unremark able except as noted in history and below [facility] Medical History Migraines ?G43.909 - Migraine, unspecified, not intractable, without status migrainosus (ICD-10) Chronic pharyngitis ?J31.2 - Chronic pharyngitis (ICD-10) Endometriosis determined by laparoscopy ?N80.9 - Endometriosis, unspecified (ICD-10) Hyperthyroidism ?E05.90 - Thyrotoxicosis, unspecified without thyrotoxic crisis or storm (ICD-10) Neck pain ?M54.2 - Cervicalgia (ICD-10) Low back pain ?M54.50 - Low back pain, unspecified (ICD-10) Numbness and tingling ?R20.0 - Anesthesia of skin (ICD-10) ?R20.2 - Paresthesia of skin (ICD-10) Surgical History S/P fine needle aspiration ?Z98.890 - Other specified postprocedural states (ICD-10) History of lumbar fusion ?Z98.1 - Arthrodesis status (ICD-10) H/O breast implant ?Z98.82 - Breast implant status (ICD-10) Hx of breast implants, bilateral ?Z98.82 - Breast implant status (ICD-10) Status post lumbar surgery ?Z98.890 - Other specified postprocedural states (ICD-10) H/O: hysterectomy ?Z90.710 - Acquired absence of both cervix and uterus (ICD-10) S/P T&A (status post tonsillectomy and adenoidectomy) ?Z90.89 - Acquired absence of other organs (ICD-10) Hx of laparoscopy ?Z98.890 - Other specified postprocedural states (ICD-10) H/O breast augmentation ?Z98.82 - Breast implant status (ICD-10) Meds Home Medications and Allergies Home Medications ?Medication ?Instructions ?Recorded ?Confirmed ?Type baclofen 10 mg tablet 10 mg PO BID 12/04/22 History tizanidine 4 mg tablet 4 mg PO .HS 12/04/22 5 History estradiol 2 mg tablet 2 mg PO DAILY 07/11/2309/20 History oxcarbazepine 150 mg tablet 150 mg PO DAILY 07/11/23 0 09/20/24 History rimegepant 75 mg disintegrating 75 mg PO QDAY PRN migr verito headache 01/14/24 09/20/24 History tablet (Nurtec ODT) gabapentin 300 mg capsule 300 mg PO BID #60 caps 02/0309/20/24 Rx tramadol 50 mg tablet 50 mg PO TID PRN pain #90 ta bs 06/08/24 09/20/24 Rx tramadol 50 mg tablet 50 mg PO TID PRN pain #90 ta bs 09/01/24 09/20/24 Rx tramadol 50 mg tablet 50 mg PO TID PRN pain #90 ta bs 10/21/24 Rx tramadol 50 mg tablet 50 mg PO TID PRN pain #90 ta bs 12/10/24 Rx Allergies Allergy/AdvReac Type Severity Reaction Status Date / Time adhesive Allergy Rash Verified 09/20/24 10:26 latex Allergy Rash Verified 09/20/24 10:26 Exam Narrative Exam Narrative: Psych-alert and oriented x 3.? Attentive and appropriate, constitutionally normal, displays normal mood and affect per situation.? There are no obvious deficits in memory, reasoning, or intellect.? Skin-no obvious rashes, bruising, or erythema noted to the patient's area of pain. Extremities-upper extremities are warm with minimal edema and palpable pulses. Cervical- tenderness to palpation noted in the cervical spine and paraspinal musculature.? Pain is elicited with extension, and lateral rotation of the cervical spine.? Range of motion is slightly diminished due to pain. Coordination remains intact.? Gait remains non-antalgic. Assessment and Plan Assessment and Plan (1) Cervical stenosis of spinal canal: Plan 39yof who presents for assessment. failed conservative measures, as noted. given symptoms and exam, will continue medications as before, which keep symptoms at bay. patient will continue home exercise program. follow up in 3 months or sooner, if needed.
== END 2024-12-20 13:21 | disposition home or self-care (01) ==
PROVIDERS: Visit Provider Anesthesiology
DX: M48.02 Spinal stenosis, cervical region (principal)
CPT/HCPCS: G0463

== ENCOUNTER 2025-04-11 14:37 | Outpatient (OUT) | payer OTHER, SELFPAY ==
--- OUTSIDE RECORDS SUMMARY | 2025-04-11 14:43 | XMS_ITS | CCD ---
Author Organization [facility] Care Team Providers Care 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 Name Role Phone UNKNOWN, PROVIDER Admitting Unavailable UNKNOWN, PROVIDER Attending Unavailable UNKNOWN, PHYSICIAN Referring Unavailable UNKNOWN, PHYSICIAN Primary Care Unavailable Nancy Mcknight Primary Care Provider KATHY GHOSH Attending Unavailable NANCY MCKNIGHT Primary Care Unavailable Nancy MCKNIGHT Primary Care Physician [phone] Ric Tinoco Unavailable JOSEFA ., DR HERB Melgar Attending Unavailable RIVERO ., DR HERB Melgar Admitting Unavailable RIVERO ., DR HERB Melgar Consulting Unavailable MISC, DR MURRIETA Primary Care Unavailable LAKSHMIPATHY ., NARENDRANATH Consulting Fide vailable MISC, DR MURRIETA Primary Care Unavailable LAKSHMIPATHY ., NARENDRANATH Admitting Fide vailable LAKSHMIPATHY ., NARAMAYAATH Attending Fide vailable HALKER .LOYD Consulting Unavailable KELLY ., ISAURA Consulting Unavailable RIVERO ., DR HERB Melgar Attending Unavailable MISC, DR MURRIETA Primary Care Unavailable RIVERO ., DR HERB Melgar Admitting Unavailable LAKSHMIPATHY ., NARSIERRA Consulting Fide vailable MISC, DR MURRIETA Primary Care Unavailable LAKSHMIPATHY ., NARENDRANATH Admitting Fide vailable LAKSHMIPATHY ., NARENDRANATH Attending Fide vailable LAKSHMIPATHY ., NARENDGINOATH Consulting Fide vailable RIVERO ., DR HERB [...] Unavailable MD Ruben Mcknight Primary Care Provider [phone] MD Marta Puente Jr Attending Provider UnaMarta Killian Jr Attending Unavailable Marta Puente Jr H Admitting Unavailable Ruben Mcknight Primary Care Unavailable Nancy Mcknight MD Primary Care Provider Nancy MCKNIGHT Primary Care Physician [phone] Gudimella, Matt Attending Unavailable Gudimella, Matt Attending Unavailable Guannamella, Matt Attending Unavailable Nancy MCKNIGHT Attending Unavailable [...] Unava ilable Roldanmis, Marta H Referring Unavailable Latonias, Marta H Admitting Unavailable Roldanmis, Marta H Attending Unavailable Gudimella, Matt Admitting [...] CALLE Attending Unavailable PETRA CALLE Attending Unavailable TIMMIS, MARTA H Attending Unavailable EDWIN ARAMBULA Attending Unavailable EBER POTTS Referring Unavailable PETRA CALLE Attending Unavailable Airam REES, Andmarilyn Greer Attending Unavailable Airam REES, Andrius Zoey Attending Unavailable Airam REES, Andrius Vytautcapri Attending Unavailable Airam REES, Andrius Bebetoytautcapri Attending Unavailable Airam REES, Andrius Vytautcapri Attending Unavailable Airam REES, Andrius Vytautcapri Attending Unavailable Juan Luis REES, Ruben Quiroz Primary Care Provider Petra Calle APRN Attending Provider Allergies Allergy Classification Reported Allergen(s) Allergy Type Date of Onset Reaction(s) Facility (1 source) Adhesive agent; Translations: [Unknown] Propensity to adverse reactions (disorder) 9 [facility] Repository (19 sources) Adhesive Tape; Translations: [Tape] Drug allergy Eruption of skin (disorder) [facility] (20 sources) Latex; Translations: [Latex] Drug allergy 5 Rash [employer] Other (3 sources) adhesive bandages Propensity to adverse reactions rash [facility] [employer] Other (2 sources) Adhesive agent Drug allergy (disorder) 6 rash [facility] Repository (1 source) Adhesive agent Drug allergy (disorder) 2 [facility] Repository (2 sources) Adhesive Tape Drug allergy (disorder) 0 [facility] Repository (18 sources) Wound Dressing Adhesive Drug Allergy 5 Rash [facility] Healthcare Medications Current Medications Medication Drug [...] (20 sources) gamma-Aminobutyr ic Acid-ergic Agonist Start: 03-21-2025 take 1 tablet by mouth twice daily Baclofen 10 mg tablet Active 10 MG PO Twice daily March 21, 2025 12:00am Complies with drug therapy Start: 09-20-2024 take 1 tablet by jaden th twice daily at bedtime baclofen (Lioresal) 10 MG tablet Indications: Neck pain TAKE 1 TABLET BY MOUTH TWICE DAILY (IN THE MORNING AND BEFORE BEDTIME) 60 tablet 5 09/20/2024 Active Start: 09-20-2024 take 1 tablet by jaden th twice daily at bedtime baclofen (Lioresal) 10 [...] course, # 28 cap(s), Refills(s) 0, Pharmacy: [facility], 168, cm, 07/11/20 8:27:00 EST, Height/Length Dosing, 64.1, kg, 07/11/20 8:27:00 EST, Weight Dosing Start Date: 07/11/20 Status: Ordered cetirizine hydrochloride 10 mg oral tablet (4 sources) Histamine-1 Receptor Antagonist Start: 11-23-2020 take 1 tablet by mouth once daily cetirizine 10 mg Tab 10 mg = 1 tab(s), Oral, Daily, # 90 tab(s), Refills(s) 1, Pharmacy: [facility], 168, cm, 07/11/20 8:27:00 EST, Height/Length Dosing, 64.1, kg, 07/11/20 8:27:00 EST, Weight Dosing Start Date: 11/23/20 Status: Ordered 1 ml erenumab-aooe 140 mg/ml auto-injector (20 sources) Start: 11-30-2019 End: 03-21-2025 erenumab (Aimovig) 140 MG/ML injection Indications: Migraine without aura and without status migrainosus, not intractable (CMS/HCC) INJECT 1 SYRINGE SUBCUTANEOUSLY ONCE EVERY MONTH 1.12 mL 5 04/06/2024 Active Start: 02-01-2019 inject 140 mg by [...] take 1 tablet by mouth once daily Estradiol 2 mg tablet Active 2 MG PO Daily March 21, 2025 12:00am Complies with drug therapy Start: 05-07-2023 End: 05-06-2024 take 1 tablet by mouth in the morning estradiol (Estrace) 2 MG tablet Indications: Menopausal symptoms Take 1 tablet (2 mg) by mouth in the morning. 30 tablet 11 05/07/2023 05/06/2024 Active Start: 06-19-2018 End: 03-21-2025 take 1 tablet by mouth once daily at bedtime Estradiol 1 mg Tablet Discontinued 1 MG PO Daily at bedtime November 30, 2019 12:00am March 21, 2025 8:38am fluticasone propionate 0.05 mg/actuat metered dose nasal spray (3 sources) Corticosteroid Start: 06-20-2023 End: 06-27-2023 take 2 spray(s) nasal route once daily Flonase 0.05 mg/inh [place] 2 spray(s), Nasal, Daily for 7 day(s), 16 gm, Refill(s) 0, each nostril, [facility], 168, cm, 06/20/23 18:45:00 EST, Height/Length Dosing, 58.4, kg, 06/20/23 18:45:00 EST, Weight Dosing Start Date: 06/20/23 Stop Date: 06/27/23 Status: Ordered gabapentin 600 mg oral tablet (20 sources) Anti-epileptic Agent Start: 03-21-2025 take 1 tablet by mouth once daily Gabapentin 600 mg tablet Active 600 MG PO Daily March 21, 2025 12:00am Complies with drug therapy Start: 10-07-2023 take 1 capsule by mo [facility] once daily gabapentin 100 mg Cap 100 mg = 1 cap(s), Oral, Daily, Refills(s) 0 Start Date: 10/07/23 Status: Ordered Start: 11-08-2021 gabapentin 600 mg Tab Refills(s) 0 Start Date: 11/08/21 Status: Ordered Start: 09-04-2017 End: 03-21-2025 take 1 capsule by mouth three times daily Gabapentin 300 mg Capsule Discontinued 300 MG PO Three times daily September 04, 2017 12:00am March 21, 2025 8:38am take 1 tablet by jaden once daily gabapentin (Neurontin) 600 MG tablet Take 1 tablet by mouth Daily Active Gabapentin 600 m g TAKE 2 TABLETS THREE TIMES A DAY Active take 4 capsules by m outh three times daily gabapentin (NEURONTIN) 300 MG capsule Take 1,200 mg by mouth 3 times daily. 0 Active lamoTRIgine 25 mg oral tablet (7 sources) Mood Stabilizer, Anti-epileptic Agent Start: 11-30-2019 End: 03-01-2024 take 1 tablet by mouth once daily lamoTRIgine (LAMICTAL) 25 MG tablet Take 25 mg by mouth daily 0 11/30/2019 Active Start: 11-30-2019 End: 03-21-2025 take 1 tablet by mouth twice daily Lamotrigine (Lamictal) 25 mg Tablet Discontinued 25 MG PO Twice daily November 30, 2019 12:00am March 21, 2025 8:38am loratadine 10 mg oral tablet (4 sources) Start: 02-23-2020 take 1 tablet by mouth once daily loratadine 10 mg Tab 10 mg = 1 tab(s), Oral, Daily, # 90 tab(s), Refills(s) 1, Pharmacy: [facility], 168, cm, 02/23/20 10:40:00 EDT, Height/Length Dosing, 65, kg, 02/23/20 10:40:00 EDT, Weight Dosing Start Date: 02/23/20 Status: Ordered Start: 11-30-2019 End: 03-21-2025 take 1 capsule by mouth once daily Loratadine 10 mg Capsule Discontinued 10 MG PO Daily November 30, 2019 12:00am March 21, 2025 8:38am methIMAzole 10 mg oral tablet (17 sources) [...] Nausea/Vomiting, # 10 tab(s), Refills(s) 0, Pharmacy: [facility], 168, cm, 07/10/20 13:24:00 EST, Height/Length Dosing, 62.1, kg, 07/10/20 13:24:00 EST, Weight Dosing Start Date: 07/10/20 Status: Ordered OXcarbazepine 300 mg oral tablet (20 sources) Anti-epileptic Agent Start: 03-21-2025 take 0.5 tablet by mouth once daily in the morning, then take 1-2 tablets by mouth once daily at bedtime Oxcarbazepine (Trileptal) 300 mg tablet Active 0 PO .COMPLEX March 21, 2025 12:00am 1/2 tablet qam and 1-2 tablets qhs orally; Complies with drug therapy Start: 09-20-2024 take 0.5 tablet by m [...] symptoms, # 30 tab(s), Refills(s) 0, Pharmacy: [facility], 168, cm, 10/07/23 10:32:00 EDT, Height/Length Dosing, 61, kg, 10/07/23 10:32:00 EDT, Weight Dosing Start Date: 10/07/23 Status: Ordered Start: 05-26-2020 take 1 tablet by jaden th twice daily as needed oxybutynin 5 mg Tab 5 mg = 1 tab(s), Oral, BID, PRN for urinary discomfort, # 60 tab(s), Refills(s) 2, Pharmacy: [facility], 168, cm, 05/26/20 16:32:00 [...] breakfast, # 30 tab(s), Refills(s) 5, Pharmacy: [facility], 168, cm, 07/11/20 8:27:00 EST, Height/Length Dosing, 64.1, kg, 07/11/20 8:27:00 EST, Weight Dosing Start Date: 02/06/21 Status: Ordered End: 03-01-2024 take 1 tablet by mouth once daily pantoprazole (ProtoNix) 40 MG packet Delayed release. Take 1 tablet by mouth once daily 30 minutes before breakfast. 03/01/2024 Discontinued (Therapy completed) predniSONE 20 mg oral tablet (7 sources) Start: 07-31-2023 End: 03-01-2024 take 1 tablet by mouth in the morning predniSONE (Deltasone) 20 MG tablet Take 20 mg by mouth in the morning. X 14 days. 07/31/2023 03/01/2024 Discontinued (Therapy completed) Start: 12-08-2019 End: 03-21-2025 Prednisone 10 mg tablets,dos e pack Discontinued 1 dose pk PO per package directions December 08, 2019 12:00am March 21, 2025 8:38am take 4 tabs for 3 days then take 3 tabs for 3 days then take 2 tabs for 3 days then take 1 tab for 3 days Start: 12-08-2019 Prednisone Act love 1 dose [...] Once, # 1 tab(s), Refills(s) 0, Pharmacy: [facility], 168, cm, 07/24/23 13:48:00 EST, Height/Length Dosing, 61, kg, 07/24/23 13:48:00 EST, Weight Dosing Start Date: 07/24/23 Status: Ordered Protonix 40 mg Tab-EC (3 sources) Start: 02-06-2021 take 1 tablet by mouth once daily 30 minutes before breakfast Protonix 40 mg Tab-EC 40 mg = 1 tab(s), Oral, Daily, Take 30 minutes before breakfast, # 30 tab(s), Refills(s) 5, Pharmacy: [facility], 168, cm, 07/11/20 8:27:00 EST, Height/Length Dosing, 64.1, kg, 07/11/20 8:27:00 EST, Weight Dosing Start Date: 02/06/21 Status: Ordered rimegepant 75 mg disintegrating oral tablet (20 sources) Start: 03-21-2025 take 1 tablet by mouth every other week Rimegepant (Nurtec Odt) 75 mg tablet,disintegra ting Active 75 MG PO .COMPLEX March 21, 2025 12:00am 75 mg orally at the onset of a migraine. do not repeat. no more than 2 days/week; Complies with drug therapy Start: 04-06-2024 End: 04-06-2024 take 1 tablet [...] (20 sources) Central alpha-2 Adrenergic Agonist Start: 03-21-2025 take 1 tablet by mouth once daily at bedtime Tizanidine 4 mg tablet Active 4 MG PO Daily at bedtime March 21, 2025 12:00am Complies with drug therapy Start: 09-20-2024 take 1 tablet by jaden [...] oral tablet (20 sources) Opioid Agonist Start: 03-21-2025 take 1 tablet by mouth twice daily as needed Tramadol 50 mg tablet Active 50 MG PO Twice daily as needed March 21, 2025 12:00am Complies with drug therapy Start: 03-26-2023 take 1 tablet by jaden th three times daily as needed traMADol (Ultram) 50 MG tablet TAKE 1 TABLET BY MOUTH THREE TIMES DAILY NEEDED. MUST LAST 30 DAYS. 03/26/2023 Active Start: 11-30-2019 End: 12-08-2019 take 1 tablet by mouth three times daily as needed for pain Tramadol 50 mg tablet Discontinued 50 MG PO Three times daily as needed for Pain November 30, 2019 12:00am December 08, 2019 2:35pm Start: 09-04-2017 End: 09-12-2017 take 1 tablet by mouth once daily in the morning Tramadol 50 mg Tablet Discontinued 50 MG PO Every morning September 04, 2017 12:00am September 12, 2017 8:12am valACYclovir 1000 mg oral tablet (15 sources) [...] BID, # 60 tab(s), Refills(s) 2, Pharmacy: [facility], 168, cm, 11/08/21 9:50:00 EDT, Height/Length Dosing, 65.4, kg, 11/08/21 9:50:00 EDT, Weight Dosing Start Date: 01/18/22 Status: Ordered Start: 11-23-2020 End: 08-02-2024 take 1 tablet by mouth twice daily valacyclovir 1 g Tab 1 gram = 1 tab(s), Oral, BID, # 60 tab(s), Refills(s) 2, Pharmacy: [facility], 168, cm, 07/11/20 8:27:00 EST, Height/Length Dosing, 64.1, kg, 07/11/20 8:27:00 EST, Weight Dosing Start Date: 11/23/20 Status: Ordered Start: 11-23-2020 take 1 tablet by jaden twice daily valacyclovir 1 g Tab 1 gram = 1 tab(s), Oral, BID, # 60 tab(s), Refills(s) 2, Pharmacy: [facility], 168, cm, 07/11/20 8:27:00 EST, Height/Length Dosing, 64.1, kg, 07/11/20 8:27:00 EST, Weight Dosing Start Date: 11/23/20 Status: Ordered Completed/Discontinued Medications Medication Drug Class(es) Dates Sig (Normalized) Sig (Original) acetaminophen 325 mg / HYDROcodone bitartrate 5 mg oral tablet (4 sources) Opioid Agonist Start: 09-12-2017 End: 11-30-2019 take 1 tablet by mouth every four to six hours as needed for pain Hydrocodone-Acetami nophen ([place]) 5-325 mg tablet Discontinued 1 TAB PO EVERY 4-6 HOURS as needed for pain 30 September 12, 2017 November 30, 2019 10:37am Start: 09-04-2017 End: 09-12-2017 take 1 tablet by mouth once daily at bedtime Hydrocodone-Acetaminophen ([place]) 5-325 mg Tablet Discontinued 1 TAB PO Daily at bedtime September 04, 2017 12:00am September 12, 2017 8:11am cephalexin 500 mg oral capsule (2 sources) Cephalosporin Antibacterial Start: 12-08-2019 End: 03-21-2025 take 1 capsule by mouth every eight hours Cephalexin (Keflex) 500 mg capsule Discontinued 500 MG PO Q8H 15 December 08, 2019 12:00am March 21, 2025 8:38am cyclobenzaprine hydrochloride 10 mg oral tablet (6 sources) Muscle Relaxant Start: 09-04-2017 End: 03-21-2025 take 1 tablet by mouth three times daily as needed for muscle spasms Cyclobenzaprine 10 mg tablet Discontinued 10 MG PO Three times daily as needed for back spasms 50 December 08, 2019 12:00am March 21, 2025 8:38am docusate sodium 100 mg oral capsule (2 sources) Start: 09-12-2017 End: 11-30-2019 take 1 capsule by mouth twice daily as needed for constipation Docusate Sodium (Colace) 100 mg capsule Discontinued 100 MG PO Twice daily as needed for constipation 60 September 12, 2017 8:12am November 30, 2019 10:37am Norethindrone-E.Est radiol-Iron (2 sources) Estrogen Start: 09-04-2017 End: 09-12-2017 Norethindrone-E.Est radiol-Iron (07/12 ()) 1 mg-20 mcg (21)/75 mg (7) tablet Discontinued 1 TAB PO Daily September 04, 2017 12:00am September 12, 2017 8:11am Start: 09-04-2017 End: 09-12-2017 Norethindrone-E.Estradiol-Ir on (07/12 ()) 1 mg-20 mcg (21)/75 mg (7) tablet Discontinued 1 TAB PO Daily September 03, 2017 11:00pm September 12, 2017 7:11am ibuprofen 800 mg oral tablet (6 sources) Nonsteroidal Anti-inflammatory Drug Start: 11-30-2019 End: 11-30-2019 Ibuprofen 800 mg tablet Discontinued November 30, 2019 12:00am November 30, 2019 11:39am Start: 09-12-2017 End: 11-30-2019 take 1 tablet by mouth every six hours as needed for pain Ibuprofen 600 mg tablet Discontinued 600 MG PO Q6H as needed for pain September 12, 2017 12:00am November 30, 2019 10:38am Start: 09-04-2017 End: 11-30-2019 take 1 tablet by mouth twice daily Ibuprofen 800 mg Tablet Discontinued 800 MG PO Twice daily September 04, 2017 12:00am November 30, 2019 10:38am Multivitamin (Multiple Vitamins) Tablet (2 sources) Start: 09-04-2017 End: 11-30-2019 take 1 tablet by mouth once daily Multivitamin (Multiple Vitamins) Tablet Discontinued 1 TAB PO Daily September 04, 2017 12:00am November 30, 2019 10:38am Uses a chewable form Start: 09-04-2017 End: 11-30-2019 take 1 tablet by mouth once daily Multivitamin (Multiple Vitamins) Tablet Discontinued 1 TAB PO Daily September 03, 2017 11:00pm November 30, 2019 9:38am Uses a chewable form oxyCODONE hydrochloride 5 mg oral capsule (2 sources) Opioid Agonist Start: 12-08-2019 End: 03-21-2025 take 5-10 mg by mouth every six hours as needed for pain Oxycodone 5 mg capsule Discontinued 5 - 10 MG PO Q6H as needed for pain 60 8 December 08, 2019 March 21, 2025 8:38am Problems Active Problems Problem Classification Problem Date [...] [Spondylolisthesis, lumbosacral region] Episodic Other acquired deformities (5 sources) Lumbar spondylolisthesis; Translations: [Spondylolisthesis, lumbar region] 06-04-2023 Episodic Comment on above: Problem List clean-u p per request of Phys. EHR Cmte Other connective tissue disease (19 sources) Muscle pain; Translations: [Myalgia, unspecified site] Onset: 4 04-06-2024 Episodic Other diseases of bladder and urethra [...] Resolved: 12-28-2021 Episodic Other connective tissue disease (15 sources) [...] [Mass/Vol] 2.3 pg/mL Invalid Interpretation Code 2.0-4.4 [facility] Comment on above: Result Comment: Perf ormed at: [facility] [address] [id number] PhD Mahnaz Conklin Performed By: #### 2 [id number] #### [facility] [address] [place] [id number] CHEMISTRYOrdered By: SYSTEM SYSTEM on 05-10-2024 Free T4 [Mass/Vol] 0.72 ng/dL Normal 0.58 - 1.64 ng/dL Remisol Chem TSH Qn 2.58 m[IU]/L Normal 0.34 - 5.60 mcIU/mL Remisol Chem Free T4on 05-10-2024 Free T4 [Mass/Vol] 0.72 ng/dL Normal 0.58-1.64 [facility] Comment on above: Performed By: #### 2 [id number] #### [facility] [address] [place] [address] TSHon 05-10-2024 TSH Qn 2.58 m[IU]/L Normal 0.34-5.60 [facility] Comment on above: Performed By: #### 2 [id number] #### [facility] [address] [place] [address] EMG 2 Extremitieson 03-08-20 EMG/ NCS BLE Mild right S1/S2 radiculopathy versus tibial motor neuropathy that is less likely Critical access hospital NVC 9-10 Nerveson 03-08-2024 EMG/ NCS BLE Mild right S1/S2 radiculopathy versus tibial motor neuropathy that is less likely Critical access hospital US Thyroidon 01-16-2024 US Thyroid Exam Date/Time: [...] DO Transcribed by: YAMINI Technologist: KELSI Merrill [facility] Consenton 11-12-2023 Consent [id number] Normal [facility] Consent [id number]#1.00TIFF Desirae Price [facility] Medicine Office/Clini c Noteon 11-12-2023 Family [...] with voice recognition artificial intelligence software, specifically [employer], [employer] and or [employer]. Substitutions may have occurred due to the inherent limitations of voice recognition and artificial intelligence software. Documentation services were performed after patient or guardian consented to allow [employer] to record this visit. DEX pharmacovigilance specialist Perlita Dominguez and provider reviewed before [...] per year, 06/24/2023 Employment/School Employed, Work/School description: [employer] 02/01/2019 Home/Environment Lives with Children, Spouse., 02/01/2019 Substance Abuse - Denies Substance Abuse, 12/11/2012 Household substance abuse concerns: No., 06/24/2023 Tobacco - Denies Tobacco Use, 12/11/2012 Never (less than 100 in lifetime) Tobacco Use:. Never Smokeless Tobacco Use:. Household tobacco concerns: No., 11/12/2023 Family History Depression: Mother. Hepatitis C: Sister. Immunizations Vaccine Date Status Comments influenza viru (more content not included)... Normal [facility] Comment on above: Result Comment: Elec tronically Signed By: Matt Bass MD\.br\Date and Time Signed: 11/12/23 14:07 EDT\.br\Electronically Co-Signed By: Tyrone Garcia\.br\Date and Time Co-Signed: 11/12/23 13:40 EDT T3 Freeon 10-22-2023 Free T3 [Mass/Vol] 2.9 pg/mL Invalid Interpretation Code 2.0-4.4 [facility] Comment on above: Result Comment: Perf ormed at: [facility] [address] [id number] PhD Mahnaz Conklin Performed By: #### 2 [id number] ####[facility] [address] [place] [address] CHEMISTRYOrdered By: SYSTEM SYSTEM on 10-21-2023 Free T4 [Mass/Vol] 0.65 ng/dL Normal 0.58 - 1.64 ng/dL Remisol Chem TSH Qn 4.41 m[IU]/L Normal 0.34 - 5.60 mcIU/mL Remisol Chem Consent for Treatmenton 09-23 Consent for Treatment [id number]#1.00TIFF Normal [facility] Free T4on 10-21-2023 Free T4 [Mass/Vol] 0.65 ng/dL Normal 0.58-1.64 [facility] Comment on above: Performed By: #### 2 [id number] ####[facility] [address] [place] [address] Physician Orderon 10-21-2023 Physician Order [id number]#1.00TIFF Normal [facility] TSHon 10-21-2023 TSH Qn 4.41 m[IU]/L Normal 0.34-5.60 [facility] Comment on above: Performed By: #### 2 [id number] ####[facility] [address] [place] [address] Ambulatory Visit Summaryon 0 10-07-2023 Ambulatory Visit Summary EJSSICA GRIFFITHS :1985 Visit Date:10/07/2023 Ambulatory Visit Instructions Your Diagnosis Detrusor instability of bladder Thyroiditis, subacute Your Care Team Attending Physician - JUAN LUIS REES, Nancy Primary Care Physician - Nancy MCKNIGHT MD [...] urinary discomfort for bladder symptoms Pickup at [facility] Unchanged baclofen (baclofen 10 mg Tab) See [...] physician if questions or concerns Pharmacy Information [facility]: [id number] [phone] Allergies Latex Tape (Rash) Problems Ongoing - [...] have a (more content not included)... Normal [facility] Family Medicine Office/Clini c Noteon [...] two weeks, she has not utilized any sxlv-gwl-egvrqfi or old antibiotics, nor has she utilized [...] week. She is seeing Dr. Mcghee in [place] for her thyroid. She has been trying [...] Urnls Dip Stick Auto w/o Microscopy POC 99778 2. Thyroiditis, subacute (E06.1: Subacute thyroiditis) Continue following with Dr. Mcghee in [place] for management of the methimazole. 3. Lumbar [...] symptoms, # 30 tab(s), Refills(s) 0, Pharmacy: [facility], 168, cm, 10/07/23 10:32:00 EDT, Height/Length Dosing, 61, kg, 10/07/23 10:32:00 EDT, Weight Dosing Portions of this record may have been created with voice recognition artificial intelligence software, specifically [employer], [employer] and or [employer]. Substitutions may have occurred due to the inherent limitations of voice recognition and artificial intelligence software. Follow-up With When Contact Information Nancy MCKNIGHT MD, [facility] Only if needed Additional Instructions: Patient [...] Anterior lumba (more content not included)... Normal [facility] Comment on above: Result Comment: [...] this condition includes: ? Antibiotic medicine. ? Mtqt-qki-agphqsa medicines to treat discomfort. ? Drinking enough [...] these instructions at home: Medicines ? Take zoyh-irq-paycchp and prescription medicines only as told by [...] Document Revie (more content not included)... Normal [facility] T3 Freeon 09-13-2023 Free T3 [Mass/Vol] 1.5 pg/mL Low 2.0-4.4 [facility] Comment on above: Result Comment: Perf ormed at: [facility] [id number] [place], [place] [id number] PhD Mahnaz Conklin Performed By: #### 2 [id number] ####[facility] [address] [place] [address] Thyrotropin Receptor Antibod y, Serumon 09-13-2023 TSH receptor Ab Qn (S) <1.10 Invalid Interpretation Code 0.00-1.75 [facility] Comment on above: Result Comment: Perf ormed at: [facility] [address] [address] [id number] MD Enrico Dean Performed By: #### 2 587492, [id number], 0633385, 0839733, 4420974 ####[facility] [address] [place] [address] CHEMISTRYOrdered By: SYSTEM SYSTEM on 09-10-2023 Albumin [...] for Treatmenton 08-22 Consent for Treatment [id number]#1.00TIFF Normal [facility] Free T4on 09-10-2023 Free T4 [Mass/Vol] ng/dL Low 0.58-1.64 [facility] Comment on above: Performed By: #### 2 479651, [id number], 1759930, 0376084, 8278082 ####[facility] [address] [place] [address] Hep Func Panelon 09-10-2023 Albumin [Mass/Vol] 4.2 g/dL Normal 3.3-5.0 [facility] Comment on above: Performed By: #### 2 168740, 1073665558, 4606091, 3693369, 8767711 ####[facility] [address] [place] [address] Albumin/Globulin (S) [Mass conc ratio] 1.4 Normal 1.1-2.2 [facility] Comment on above: Performed By: #### 2 185591, [id number], 1136901, 9078819, 8998044 ####[facility] [address] [place] [address] ALP [Catalytic activity/Vol] 66 Int._Unit/L Normal 21-98 [facility] Comment on above: Performed By: #### 2 671643, 3539185871, 3138470, 5591139, 8394583 ####[facility] [address] [place] [address] ALT No additional P-5'-P [Catalytic activity/Vol] 14 Int._Unit/L Normal 6-46 [facility] Comment on above: Performed By: #### 2 010399, 7167712519, 6325623, 6641132, 1213900 ####[facility] [address] [place] [address] AST [Catalytic activity/Vol] 22 Int._Unit/L Normal 5-43 [facility] Comment on above: Performed By: #### 2 970169, 6717249279, 1480025, 8498273, 4907905 ####[facility] [address] [place] [address] Bilirubin [Mass/Vol] 0.5 mg/dL Normal 0.0-1.1 [facility] Comment on above: Performed By: #### 2 037824, 2829478166, 6801085, 6010827, 8416484 ####[facility] [address] [place] [address] Bilirubin.direct [Mass/Vol] 0.1 mg/dL Normal 0.0-0.4 [facility] Comment on above: Performed By: #### 2 958679, 2638454717, 3461258, 4633499, 5862904 ####[facility] [address] [place] [address] Bilirubin.indirect [Mass or moles/Vol] 0.4 mg/dL Normal 0.1-0.9 [facility] Comment on above: Performed By: #### 2 265823, 1049625378, 1975110, 0960661, 0486108 ####[address] [place] [address] Globulin (S) [Mass/Vol] 3.0 g/dL Normal 1.4-4.0 [facility] Comment on above: Performed By: #### 2 723142, 7959980727, 4771255, 0956010, 2437820 ####[address] [place] [address] Protein [Mass/Vol] 7.2 g/dL Normal 6.0-7.8 [facility] Comment on above: Performed By: #### 2 995394, 9145746234, 6667493, 8746234, 3494166 ####[address] [place] [address] Physician Orderon 09-10-2023 Physician Order [id number]#1.00TIFF Normal [facility] TSHon 09-10-2023 TSH Qn 68.80 m[IU]/L High 0.34-5.60 [facility] Comment on above: Performed By: #### 2 089456, 1434451281, 5735808, 4608852, 1228187 ####[facility] [address] [place] [address] Consultation Noteon 08-12-19 Consultation Note [id number]#1.00TIFF Normal [facility] Insurance Correspondenceon 0 08-05-2023 Insurance Correspondence [id number]#1.00TIFF Normal [facility] Consultation Noteon 08-04-19 Consultation Note [id number]#1.00TIFF Normal [facility] .Thyroglobulin by RIAon 07-24 Thyroglobulin [Mass/Vol] 159 ng/mL High [facility] Comment on above: Result Comment: Conf irmed by dilution. This test was developed and its performance characteristics determined by [employer]. It has not been cleared or approved [...] quantitation limit is 2.0 ng/mL. Performed at: [facility] [address] [place] [address] [id number] MD Yadiel Cornell Performed By: #### 7 48659530, 7325730, 14081156, 6503051, 446689565, 16909129 ####[facility] [address] [place] [address] T3 Reverseon 08-02-2023 T3.reverse [Mass/Vol] 31.2 ng/dL High 9.2-24.1 [facility] Comment on above: Result Comment: This test was developed and its performance characteristics determined by [employer]. It has not been cleared or approved by the Food and Drug Administration. Performed at: [address] [id number] MD Enrico Dean Performed By: #### 7 74506629, 5566794, 99477196, 6716310, 893019169, 88000275 ####[address] [place] [address] TgAb+Thyroglobulinon 024 Thyroglobulin Ab Qn 2.7 International_Unit /mL High 0.0-0.9 [facility] Comment on above: Result Comment: Thyr oglobulin Antibody measured by Nakul Dyer Methodology Performed at: [address] [id number] [id number] PhD Mahnaz Conklin Performed By: #### 7 44821421, 6681160, 10162352, 7933505, 440995588, 82305685 ####[address] [address] Thyroid Perox.tpo Abon 08-02 TPO Ab Qn [IU]/mL Invalid Interpretation Code 0-34 [facility] Comment on above: Result Comment: Perf ormed at: [address] [id number] PhD Mahnaz Conklin Performed By: #### 7 33976203, 5051387, 53432088, 3077194, 599313644, 68665452 ####[address] [place] [address] Family Medicine Office/Clini c Noteon 07-29-2023 Family [...] and imagi (more content not included)... 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 SW will remain available. Normal [facility] Ambulatory Visit Summaryon 0 07-24-2023 [...] hormone level, Print Label By Order Location, [id number]\.br\ Echo Transthoracic Complete, 07/24/23, Routine, Order for future visit, Transport Mode: Ambulatory, Reason: Other (please specify), Reason: murmur, Heart murmur, pp_set_radiology_ subspecialty, [facility]\.br\ Medications\.br\ What How Much When Instructions\.br\ New propranolol (propranolol 10 mg Tab) 1 Tablets By Mouth Once Pickup at [facility]\.br\ Unchanged baclofen (baclofen 10 [...] if questions or concerns \.br\ Pharmacy Information\.br\ [facility]: [address] [phone]\.br\ Allergies\.br\ Latex\.br\ Tape (Rash)\.br\ Problems\.br\ Ongoing - [...] for choosing us for your care.\.br\ \.br\ [facility] Ambulatory Visit Summaryon 0 07-18-2023 [...] You smoke (more content not included)... Normal [facility] CHEMISTRYOrdered By: SYSTEM SYSTEM on 07-18-2023 Free T4 [Mass/Vol] 2.22 ng/dL High 0.58 - 1.64 ng/dL Remisol Chem TSH Qn 0.01 m[IU]/L Low 0.34 - 5.60 mcIU/mL Remisol Chem Clipboard Summaryon 07-18-19 24 Clipboard Summary {80-ok-g9-2d-15-1c -48-6u-o5-9a-b9-6d -cb-25-c2-ac}XML Normal [facility] Consent for Treatmenton 06-24 Consent for Treatment [id number]#1.00TIFF Normal [facility] Family Medicine Office/Clini c Noteon [...] and had a biopsy on Friday at [place], carried out by the radiology department interventional [...] sclera. Oropharynx pink and moist. Adequate [place] dentition. Anterior neck, there is a fullness [...] the pathology report on her phone from [facility] which indicates benign cellularity although admittedly may [...] Dysphagia, unspecified) (more content not included)... Normal [facility] Comment on above: Result Comment: Elec tronically Signed By: JUAN LUIS REES, Nancy\.br\Date and Time Signed: 07/18/23 19:02 EST Free T4on 07-18-2023 Free T4 [Mass/Vol] 2.22 ng/dL High 0.58-1.64 [facility] Comment on above: Performed By: #### 7 20078634, 6035475, 10680243, 7616812, 123801169, 73004419 #### [facility] [address] [place] [address] Patient Educationon 07-18-19 Patient Education Endocrinology Hyperthyroidism [...] Follow these instructions at home: ? Take ocsc-fht-cazvdia and prescription medicines only as told by [...] Where to find more information ? National [place] of Diabetes and Digestive and Kidney Diseases: [...] as u (more content not included)... Normal [facility] TSHon 07-18-2023 TSH Qn 0.01 m[IU]/L Low 0.34-5.60 [facility] Comment on above: Performed By: #### 7 [id number], 3731882, 36381730, 2687423, 636712417, 95764448 #### [facility] [address] [place] [address] Mata 07-14-2023 L Specimen: [id number] Received: 07/15/23-1303 Status: SOUT Req Num: [id number] Spec Type: Cytology Subm Dr: MARTA PUENTE MD Tissues: A FNA SLIDES NOPATH (LT THYROID NOD) Procedures: Cyto Int and Re, PAPSTN/5 Age/ Patient Sex Location Account Attending Physician RoccoJessica Jonathon 37/F [place] [id number] MARTA PUENTE MD SPEC NUM: [id number] RECD: 07/15/23 STATUS: DENA REEDPio NUM: [id number] KANCHAN: 07/14/23- SUBM DR: MARTA PUENTE MD ENTERED: 07/15/23 [facility] DR: Neno Lemons SPEC TYPE: Cytology DEPT: [place] ENTERED BY: [id number] RECV BY: [id number] ORDERED: Cyto Int and Re, PAPSTN/5 ORDERED: Cyto Int and Re, PAPSTN/5 Pathological Diagnosis Left thyroid mid lobe nodule, FNA cytology: - Adequate but slightly limited for assessment - The [place] system is category 2: Benign - A [...] -- Specimen: [id number]- Received: 07/15/23 Status: DENA Bear Num: [id number] Spec Type: Cytology Subm Dr: MARTA PUENTE MD Tissues: A FNA SLIDES NOPATH (LT THYROID NOD) Procedures: Cyto Int and Re, PAPSTN/5 -- Patient: Jessica Griffiths [id number] (Continued) -- Specimen: [id number] Received: 07/15/23 (Continued) Signed (signatu re on file) Alfonso Correa MD 07/16/231122 -- Specimen: [id number] Received: 07/15/23 Status: DENA Sifuentes Num: [id number] Spec Type: Cytology Subm Dr: MARTA PUENTE MD Tissues: A FNA SLIDES NOPATH (LT THYROID NOD) Procedures: Cyto Int and Re, PAPSTN/5 -- Patient: Jessica Griffiths [id number] (Continued) -- Specimen: [id number] Received: 07/15/23 (Continued) CPT Codes 06598 -- -- Specimen: [id number]- Received: 07/15/23 Status: DENA Sifuentes Num: [id number] Spec Type: Cytology Subm Dr: MARTA PUENTE MD Tissues: A FNA SLIDES NOPATH (LT THYROID NOD) Procedures: Cyto Int and Re, PAPSTN/5 -- Patient: Jessica Griffiths [id number] (Continued) -- Signed (signatu re on file) Alfonso Correa MD 07/16/23 1123 [facility] [place] Thyroid Imaging w/ Uptk Angelito [...] 203.5 Imaging Post Administration (hrs): 24 Normal [facility] CHEMISTRYOrdered By: SYSTEM SYSTEM on [...] for Treatmenton 06-23 Consent for Treatment [id number]#1.00TIFF Normal [facility] Lipid Panelon 07-08-2023 Cholesterol [Mass/Vol] 145 mg/dL Normal 120-200 [facility] Comment on above: Performed By: #### 2 176216 ####[facility] [address] [address] Cholesterol in HDL [Mass/Vol] 62 mg/dL Invalid Interpretation Code [facility] Comment on above: Result Comment: '>= 60 LOW RISK' '<= 40 HIGH RISK' Performed By: #### 2 510192 ####[facility] [address] [place] [address] Cholesterol in LDL [Mass/Vol] 76 mg/dL Normal <=129 [facility] Comment on above: Performed By: #### 2 968424 ####[facility] [address] [place] [address] Cholesterol in VLDL [Mass/Vol] 10 mg/dL Normal 7-40 [facility] Comment on above: Performed By: #### 2 682842 ####[facility] [address] [place] [address] Triglyceride [Mass/Vol] 52 mg/dL Normal <=149 [facility] Comment on above: Performed By: #### 2 104941 ####[facility] [address] [place] [address] UA With Cult Reflexon 2023 Bacteria LM Ql (Urine sed) 1+ /HPF Abnormal Trace [facility] Comment on above: Performed By: #### 1 9010346 ####[facility] [address] [place] [address] Bilirubin Ql (U) Negative Normal Negative [facility] Comment on above: Performed By: #### 1 7513498 ####[address] [address] Clarity (U) CLEAR Normal Clear [facility] Comment on above: Performed By: #### 1 0605833 ####[address] [address] Color (U) YELLOW Normal Yellow [facility] Comment on above: Performed By: #### 1 8741574 ####[address] [address] Epithelial cells.squamous LM.HPF (Urine sed) [#/Area] /[HPF] Normal 0-2 [facility] Comment on above: Performed By: #### 1 8738415 ####[address] [address] Glucose Test strip (U) [Mass/Vol] Negative Normal Negative [facility] Comment on above: Performed By: #### 1 6435073 ####[address] [address] Hemoglobin Ql (U) Negative Normal Negative [facility] Comment on above: Performed By: #### 1 8485222 ####[address] [address] Ketones (U) [Mass/Vol] TRACE Abnormal Negative [facility] Comment on above: Performed By: #### 1 8525541 ####[address] [address] [place].plasma/Lithi um.RBC (Bld) [Mass ratio] 0-3 Normal 0-3 [facility] Comment on above: Performed By: #### 1 1315628 ####[address] [address] Mucus Ql (Urine sed) 2+ Normal [facility] Comment on above: Performed By: #### 1 5375405 ####[facility] [address] [place] [address] Nitrite Ql (U) Negative Normal Negative [facility] Comment on above: Performed By: #### 1 0668926 ####[address] [address] pH (U) 6.5 [pH] Invalid Interpretation Code 5.0-9.0 [facility] Comment on above: Performed By: #### 1 5198906 ####[address] [address] Protein (U) [Mass/Vol] Negative Normal Negative [facility] Comment on above: Performed By: #### 1 4889011 ####[address] [address] Specific gravity (U) [Rel density] 1.015 Invalid Interpretation Code 1.005-1.030 [facility] Comment on above: Performed By: #### 1 0604541 ####[address] [address] Type of Urine collection method Clean Catch Normal [facility] Comment on above: Performed By: #### 1 2977737 ####[address] [address] Urobilinogen Qn (U) 0.2 {Dylan'U}/dL Normal 0.0-1.0 [facility] Comment on above: Performed By: #### 1 4500088 ####[address] [address] WBC Auto Ql (U) Negative Normal Negative [facility] [place] [facility] Comment on above: Performed By: #### 1 5770223 ####[address] [address] WBC LM.HPF (Urine sed) [#/Area] 0-5 Normal 0-5 [facility] Comment on above: Performed By: #### 1 8472525 ####[facility] [address] [place] [address] URINALYSISOrdered By: Jennifer morris on 07-08-2023 Bacteria [...] Interpretation Code Negative [facility] UA Auto SS [place].plasma/Lithi um.RBC (Bld) [Mass ratio] 0-3 /HPF Normal [...] [facility] UA Auto SS Urobilinogen Qn (U) 0.7579487 {Dylan'U}/dL Normal 0.0 - 1.0 EU/dL [facility] UA Auto SS WBC Auto Ql (U) Negative (1/16/24 7:42 AM) Normal Negative [facility] UA Auto SS WBC LM.HPF (Urine sed) [#/Area] 0-5 /HPF Normal 0-5/HPF [facility] UA Auto SS Insurance Correspondenceon 0 07-01-2023 Insurance Correspondence [id number]#1.00TIFF Normal [facility] Physician Referralon 024 Physician Referral [id number]#1.00TIFF Normal [facility] Consent for Treatmenton Consent for Treatment [id number]#1.00TIFF Normal [facility] US Thyroidon 06-27-2023 US Thyroid [...] MD Transcribed by: YAMINI Technologist: FAISAL [facility] [place]/Clini c Noteon 06-24-2023 [facility] Office/Clinic Note Chief Complaint Discuss thyroid HPI [...] with voice recognition artificial intelligence software, specifically [employer] and or [employer]. Substitutions may have occurred due to the inherent limitations of voice recognition and artificial intelligence software. Documentation services were performed after patient or guardian consented to allow [employer] to record this visit. D (more content not included)... Normal [facility] Comment on above: Result Comment: Elec tronically Signed By: Matt Bass MD\.br\Date and Time Signed: 06/24/23 18:25 EST\.br\Electronically Co-Signed By: Jaja Alex\.br\Date and Time Co-Signed: 06/24/23 18:04 EST T3 Freeon 06-22-2023 Free T3 [Mass/Vol] 4.2 pg/mL Invalid Interpretation Code 2.0-4.4 [facility] Comment on above: Result Comment: Perf ormed at: [facility] [address] [id number] PhD Mahnaz Conklin Performed By: #### 2 029099, 7892889, 6560349, 05026029 ####[facility] [address] [place] [address] Auto Diffon 06-21-2023 Basophils/100 WBC (Bld) 0.3 % Normal 0.0-2.0 [facility] Comment on above: Order Comment: Order Added by Discern Expert. Performed By: #### 1 4380326, 7654570, 2837555, 5595561, 0452494 #### [facility] [address] [place] [address] Basophils/Leukocytes Auto (Bld) [Pure # fraction] 0.0 E9/L Normal 0.0-0.2 [facility] Comment on above: Order Comment: Order Added by Discern Expert. Performed By: #### 1 3935834, 7254242, 9830848, 5670260, 9824040 #### [facility] [address] [place] [address] Eosinophils/100 WBC (Bld) 0.6 % Normal 0.0-8.0 [facility] Comment on above: Order Comment: Order Added by Discern Expert. Performed By: #### 1 1021127, 5854379, 7999370, 8593414, 3328595 #### [facility] [address] [place] [address] Eosinophils/Leukocyt es Auto (Bld) [Pure # fraction] 0.0 E9/L Normal 0.0-0.5 [facility] Comment on above: Order Comment: Order Added by Discern Expert. Performed By: #### 1 9379635, 8270253, 7086036, 2994562, 0595234 #### [facility] [address] [place] [address] Lymphocytes/100 WBC (Bld) 20.6 % Normal 14.0-50.0 [facility] Comment on above: Order Comment: Order Added by Discern Expert. Performed By: #### 1 1625106, 9154772, 7363385, 8019230, 3704556 #### [facility] [address] [place] [address] Lymphocytes/Leukocyt es Auto (Bld) [Pure # fraction] 1.7 E9/L Normal 1.0-4.0 [facility] Comment on above: Order Comment: Order Added by Discern Expert. Performed By: #### 1 1487079, 6878821, 0889766, 7797171, 5471271 #### [facility] [address] [place] [address] Monocytes/100 WBC (Bld) 6.6 % Normal 4.0-14.0 [facility] Comment on above: Order Comment: Order Added by Discern Expert. Performed By: #### 1 6933909, 5633436, 3326238, 6730932, 4849993 #### [facility] [address] [place] [address] Monocytes/Leukocytes Auto (Bld) [Pure # fraction] 0.5 E9/L Normal 0.2-1.0 [facility] Comment on above: Order Comment: Order Added by Discern Expert. Performed By: #### 1 8862684, 0475481, 8808176, 1467033, 1318397 #### [facility] [address] [place] [address] Neutrophils/100 WBC (Bld) 71.9 % Normal 36.0-75.0 [facility] Comment on above: Order Comment: Order Added by Discern Expert. Performed By: #### 1 5249941, 5843184, 1322766, 1498489, 0905601 #### [facility] [address] [place] [address] Neutrophils/Leukocyt es Auto (Bld) [Pure # fraction] 5.8 E9/L Normal 2.0-7.5 [facility] Comment on above: Order Comment: Order Added by Discern Expert. Performed By: #### 1 4907912, 7833327, 1686603, 4588316, 2282908 #### [facility] [address] [place] [address] CBC w/ Auto Diffon 3 Erythrocyte distribution width (RBC) [Ratio] 12.6 % Normal 10.9-14.2 [facility] Comment on above: Performed By: #### 1 7462581, 7818404, 2287635, 5627949, 1384013 #### [facility] [address] [place] [address] Hematocrit (Bld) [Volume fraction] 37.8 % Normal 34.0-46.0 [facility] Comment on above: Performed By: #### 1 5160435, 6806855, 1783714, 6299230, 8771626 #### [facility] [address] [place] [address] Hemoglobin (Bld) [Mass/Vol] 12.7 g/dL Normal 12.0-16.0 [facility] Comment on above: Performed By: #### 1 5307674, 4518250, 2380232, 0076249, 2820158 #### [facility] [address] [place] [address] MCH (RBC) [Entitic mass] 32.2 pg Normal 27.0-34.0 [facility] Comment on above: Performed By: #### 1 4941061, 7973849, 1173910, 0224963, 1732848 #### [facility] [address] [place] [address] MCHC (RBC) [Mass/Vol] 33.8 g/dL Normal 31.4-36.0 [facility] Comment on above: Performed By: #### 1 0041616, 1456067, 6622588, 0272073, 2056548 #### [facility] [address] [place] [address] MCV (RBC) [Entitic vol] 95.5 fL Normal 80.0-100.0 [facility] Comment on above: Performed By: #### 1 5489465, 6194338, 4727511, 7703163, 4709601 #### [facility] [address] [place] [address] Platelet mean volume (Bld) [Entitic vol] 8.5 fL Normal 6.4-10.8 [facility] Comment on above: Performed By: #### 1 8457174, 0245056, 1247082, 2470872, 4309586 #### [facility] [address] [place] [address] Platelets (Bld) [#/Vol] 303.0 E9/L Normal 150.0-500.0 [facility] Comment on above: Performed By: #### 1 8292894, 2472281, 0930373, 1670058, 3197977 #### [facility] [address] [place] [address] RBC (Bld) [#/Vol] 4.0 E12/L Low 4.3-5.9 [facility] Comment on above: Performed By: #### 1 6567754, 9525038, 8038567, 6708024, 2380927 #### [facility] [address] [place] [address] WBC corrected for nucl RBC Auto (Bld) [#/Vol] 8.1 E9/L Normal 4.0-11.0 [facility] Comment on above: Performed By: #### 1 4178057, 1329310, 4354734, 5819126, 7007760 #### [facility] [address] [place] [address] CHEMISTRYOrdered By: SYSTEM SYSTEM on 06-21-2023 Albumin [...] 06-21-2023 Albumin [Mass/Vol] 3.8 g/dL Normal 3.3-5.0 [facility] Comment on above: Performed By: #### 1 2030611, 4645923, 2201904, 2323362, 4967522 #### [facility] [address] [place] [address] Albumin/Globulin [Mass ratio] 1.3 {ratio} Normal 1.1-2.2 [facility] Comment on above: Performed By: #### 1 5953353, 1819032, 1242555, 1792088, 0581323 #### [facility] [address] [place] [address] Alk Phos 83 Int._Unit/L Normal 21-98 [facility] Comment on above: Performed By: #### 1 2199588, 9687884, 8018477, 1848911, 9934087 #### [facility] [address] [place] [address] ALT 10 Int._Unit/L Normal 6-46 [facility] Comment on above: Performed By: #### 1 3469911, 8830034, 5324852, 2785452, 8985315 #### [facility] [address] [place] [address] Anion gap [Moles/Vol] 10 mmol/L Normal 6-16 [facility] Comment on above: Performed By: #### 1 7273173, 5140098, 5403250, 2865725, 8580623 #### [facility] [address] [place] [address] AST 15 Int._Unit/L Normal 5-43 [facility] Comment on above: Performed By: #### 1 6043025, 1538925, 6167234, 9616425, 4916777 #### [facility] [facility] [address] [place] [address] Bili Total 0.5 mg/dL Normal 0.0-1.1 [facility] Comment on above: Performed By: #### 1 [id number], [id number], [id number], 5352816, [id number] #### [facility] [address] [place] [address] BUN/Creat Ratio 22 No Units High 10-20 [facility] Comment on above: Performed By: #### 1 [id number], [id number], 5338671, 4277800, [id number] #### [facility] [address] [place] [address] Calcium [Mass/Vol] 8.7 mg/dL Low 8.9-11.1 [facility] Comment on above: Performed By: #### 1 [id number], 7878889, 2083815, 7150516, 4891669 #### [facility] [address] [place] [address] Chloride [Moles/Vol] 103 mmol/L Normal 101-111 [facility] Comment on above: Performed By: #### 1 [id number], 1000907, 7684720, 1477089, 5279494 #### [facility] [address] [place] [address] CO2 [Moles/Vol] 29 mmol/L Normal 21-31 [facility] [place] [facility] Comment on above: Performed By: #### 1 [id number], 9669586, 7236833, 6215069, 6929097 #### [facility] [address] [place] [address] Creatinine [Mass/Vol] 0.6 mg/dL Normal 0.5-1.3 [facility] Comment on above: Performed By: #### 1 [id number], 1045872, 5241176, 8848709, 2560751 #### [facility] [address] [place] [address] Globulin (S) [Mass/Vol] 3.0 g/dL Normal 1.4-4.0 [facility] Comment on above: Performed By: #### 1 [id number], 4935778, 2921576, 0707754, 5550683 #### [facility] [address] [place] [address] Glucose [Mass/Vol] 84 mg/dL Normal 55-199 [facility] Comment on above: Performed By: #### 1 [id number], 3950387, 2460044, 3253000, 5859863 #### [facility] [address] [place] [address] Potassium [Moles/Vol] 3.9 mmol/L Normal 3.5-5.3 [facility] Comment on above: Performed By: #### 1 [id number], 5525912, 6090073, 0685892, 8674873 #### [facility] [address] [place] [address] Protein [Mass/Vol] 6.8 g/dL Normal 6.0-7.8 [facility] Comment on above: Performed By: #### 1 [id number], 9476985, 3665974, 6865176, 7336470 #### [facility] [address] [place] [address] Sodium [Moles/Vol] 138 mmol/L Normal 135-145 [facility] Comment on above: Performed By: #### 1 [id number], 1890207, 9606763, 4984028, 7114513 #### [facility] [address] [place] [address] Urea nitrogen [Mass/Vol] 13 mg/dL Normal 5-21 [facility] Comment on above: Performed By: #### 1 [id number], 3581189, 9443816, 7805083, 8052748 #### [facility] [address] [place] [address] Consent for Treatmenton 05-25 Consent for Treatment [id number]#1.00TIFF Normal [facility] Free T4on 06-21-2023 Free T4 [Mass/Vol] 1.37 ng/dL Normal 0.58-1.64 [facility] Comment on above: Performed By: #### 1 1063635, 2278600, 7441278, 7797909, 5964563 #### [facility] [address] [place] [address] HEMATOLOGYOrdered By: SYSTEM SYSTEM on 06-21-2023 Basophils/100 [...] [facility]SS Physician Orderon 06-21-2023 Physician Order [id number]#1.00TIFF Normal [facility] T3 Uptakeon 06-21-2023 T3 Uptake 46.6 % Normal 32.0-48.4 [facility] Comment on above: Performed By: #### 2 041181, 3081744, 8669024, 11986155 ####[facility] [address] [place] [address] T4 Totalon 06-21-2023 T4 18.8 microgram/dL High 4.6-9.1 [facility] Comment on above: Performed By: #### 2 075871, 2802905, 9818111, [id number] ####[facility] [address] [place] [address] TSHon 06-21-2023 TSH Qn 0.07 m[IU]/L Low 0.34-5.60 [facility] Comment on above: Performed By: #### 2 [id number], 3777201, 5590330, [id number] ####[facility] [address] [place] [address] eGFRon 06-21-2023 GFR/1.73 sq M.predicted among non-blacks MDRD (S/P/Bld) [Vol rate/Area] mL/min/{1.73_m2} Normal >=59 [facility] Comment on above: Order Comment: Order added by Discern Expert. Performed By: #### 1 [id number], 0411602, 4290787, 3025304, 0160525 #### [facility] [address] [place] [address] Family Medicine Office/Clini c Noteon 06-20-2023 Family [...] with voice recognition software. Occasional wrong-word or ?xizfk-h-hxta? 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 But again is seeing OUTDOOR RECREATION SPECIALIST in regards to these fluctuations denies any [...] with prim (more content not included)... Normal [facility] Comment on above: Result Comment: [...] weeks. Home care treatment may include: ? Hfhx-mfz-yhqtfte pain relievers. ? A warm, moist cloth placed over the ear. Severe cases may require a procedure to insert tubes in the ears (tympanostomy tubes) to drain the fluid. Follow these instructions at home: ? Take akah-xxj-svrgqbl and prescription medicines only as told by [...] provider. Document Revised: 10/04/2021 Document Reviewed: 10/04/2021 [employer] Patient Education ? 2022 [employer]. Endocrinology Thyroid Nodule A thyroid nodule is [...] hyperthy (more content not included)... Normal Price [facility] MRI Spine Cervical w/o Contr elvira 06-10-2023 [...] YAMINI Technologist: CAPRI Technical Comments None Normal [facility] Consent for Treatmenton 05-23 Consent for Treatment [id number]#1.00TIFF Normal [facility] RAD - MRI Screening Formon 1 08-10-2022 RAD - MRI Screening Form [id number]#1.00TIFF Normal [facility] Physician Orderon 06-03-2023 Physician Order [id number]#1.00TIFF Normal [facility] CHEMISTRYOrdered By: SYSTEM SYSTEM on 12-03-2021 Free T4 [Mass/Vol] 0.66 ng/dL Normal 0.58 - 1.64 ng/dL [facility] Remisol Glucose post fast [Mass/Vol] 90 mg/dL Normal 55 - 99 mg/dL [facility] Remisol TSH Qn 2.54 m[IU]/L Normal 0.34 - 5.60 mcIU/mL [facility] Remisol Reference Laboratory Testing Ordered By: [employer] DomainUser on 07-13-2021 SARS-CoV-2 (COVID-19) RNA KEITH+probe Ql (Resp) Not detected Invalid Interpretation Code Not Detected [facility] Comment on above: Result Comment: This nucleic acid amplification test was developed and its performance characteristics determined by [employer]. Nucleic acid amplification tests include RT-PCR and [...] detected) result in this assay. Performed at: [address] [id number] PhD Mahnaz Conklin Vital Signs Date Time Vital Sign Value Performing Clinician Facility 03-21-2025 08:25-0400 Body height 167.64 cm Ruben Mcknight MD Work Phone: [facility] 03-21-2025 08:25-0400 Body mass index (BMI) [Ratio] 21.6 kg/m2 Ruben Mcknight MD Work Phone: [phone] [place] [address] 03-21-2025 08:25-040 Body weight 60.78 kg Ruben Mcknight MD Work Phone: [facility] 03-21-2025 08:25-0400 Diastolic blood pressure 81 mm[Hg] Ruben Mcknight MD Work Phone: [phone] [place] [address] 03-21-2025 08:25-0400 Heart rate 61 /min Ruben Mcknight MD Work Phone: [facility] 03-21-2025 08:25-0400 Systolic blood pressure 114 mm[Hg] Ruben Mcknight MD Work Phone: [facility] 09-20-2024 08:29-0400 Body height 167.6 cm Petra Calle [employer] Work Phone: [facility] 09-20-2024 08:29-0400 Body mass index (BMI) [Ratio] 21.63 kg/m2 Petra Rosasr [employer] Work Phone: [facility] 09-20-2024 08:29-0400 Body weight 60.78 kg Petra Jennifermor [employer] Work Phone: [facility] 09-20-2024 08:29-0400 Diastolic blood pressure 78 mm[Hg] Petra Jennifermor [employer] Work Phone: [facility] 09-20-2024 08:29-0400 Heart rate 65 /min Petra Alva [employer] Work Phone: [facility] 09-20-2024 08:29-0400 SaO2% (BldA) [Mass fraction] 96 % Petra Gillmor [employer] Work Phone: [facility] 09-20-2024 08:29-0400 Systolic blood pressure 122 mm[Hg] Petra Jennifermor [employer] Work Phone: [facility] 08-02-2024 11:32-0500 Body mass index (BMI) [Ratio] 21.47 kg/m2 Kraig Goodman MD Work Phone: [facility] 08-02-2024 11:32-0500 Body weight 60.33 kg Kraig Goodman MD Work Phone: [facility] 08-02-2024 11:32-0500 Diastolic blood pressure 68 mm[Hg] Kraig Goodman MD Work Phone: [facility] 08-02-2024 11:32-0500 Systolic blood pressure 102 mm[Hg] Kraig Goodman MD Work Phone: [facility] 04-06-2024 08:21-0400 Body height 167.6 cm Petra Jennifermor [employer] Work Phone: [facility] 04-06-2024 08:21-0400 Body mass index (BMI) [Ratio] 21.63 kg/m2 Petra Jennifermor [employer] Work Phone: [facility] 04-06-2024 08:21-0400 Body weight 60.78 kg Petra Gillmor [employer] Work Phone: [facility] 04-06-2024 08:21-0400 Diastolic blood pressure 76 mm[Hg] Petra Gillmor [employer] Work Phone: [facility] 04-06-2024 08:21-0400 Heart rate 76 /min Petra Jennifermor [employer] Work Phone: [facility] 04-06-2024 08:21-0400 SaO2% (BldA) [Mass fraction] 98 % Petra Jennifermor [employer] Work Phone: [facility] 04-06-2024 08:21-0400 Systolic blood pressure 118 mm[Hg] Petra Calle NP Work Phone: [facility] 03-01-2024 08:30-0400 Body height 167.6 cm Marta Puente MD Work Phone: [facility] 03-01-2024 08:30-0400 Body mass index (BMI) [Ratio] 21.79 kg/m2 Marta Puente MD Work Phone: [facility] 03-01-2024 08:30-0400 Body weight 61.24 kg Marta Puente MD Work Phone: [facility] 03-01-2024 08:30-0400 Diastolic blood pressure 69 mm[Hg] Marta Puente MD Work Phone: [facility] 03-01-2024 08:30-0400 Systolic blood pressure 100 mm[Hg] Marta Puente MD Work Phone: [facility] 11-12-2023 12:45-0400 Blood Pressure Location Matt Gudimella [facility] 11-12-2023 12:45-0400 Diastolic blood pressure 76 mm[Hg] Matt Gudimella [facility] 11-12-2023 12:45-0400 Heart rate 72 /min Matt Gudimella [facility] 11-12-2023 12:45-0400 SaO2% (BldA) [Mass fraction] 99 % Matt Gudimella [facility] 11-12-2023 12:45-0400 Systolic blood pressure 116 mm[Hg] Matt Gudimella [facility] 10-07-2023 10:22-0400 Blood Pressure Location Nancy MCKNIGHT [facility] 10-07-2023 10:22-0400 Body temperature 97.88 [degF] Nancy MCKNIGHT [facility] 10-07-2023 10:22-0400 Diastolic blood pressure 76 mm[Hg] Umanger BROWN [facility] 10-07-2023 10:22-0400 Heart rate 66 /min Nancy MCKNIGHT [facility] 10-07-2023 10:22-0400 Respiratory rate 16 /min Nancy MCKNIGHT [facility] 10-07-2023 10:22-0400 SaO2% (BldA) [Mass fraction] 100 % Nancy MCKNIGHT [facility] 10-07-2023 10:22-0400 Systolic blood pressure 116 mm[Hg] Nancy MCKNIGHT [facility] 08-04-2023 11:27-0500 Body height 167.6 cm Marta Puente MD Work Phone: [facility] 08-04-2023 11:27-0500 Body mass index (BMI) [Ratio] 21.14 kg/m2 Marta Puente MD Work Phone: [facility] 08-04-2023 11:27-0500 Body weight 59.42 kg Marta Puente MD Work Phone: [facility] 08-04-2023 11:27-0500 Diastolic blood pressure 81 mm[Hg] Marta Puente MD Work Phone: [facility] 08-04-2023 11:27-0500 Systolic blood pressure 111 mm[Hg] Marta Puente MD Work Phone: [facility] 07-24-2023 13:41-0500 Blood Pressure Location Matt Gudimella [facility] 07-24-2023 13:41-0500 Diastolic blood pressure 70 mm[Hg] Matt Gudimella [facility] 07-24-2023 13:41-0500 Heart rate 86 /min Matt Gudimella [facility] 07-24-2023 13:41-0500 SaO2% (BldA) [Mass fraction] 98 % Matt Gudimella [facility] 07-24-2023 13:41-0500 Systolic blood pressure 106 mm[Hg] Matt Gudimella [facility] 07-18-2023 16:16-0500 Blood Pressure Location Christopher BROWN [facility] 07-18-2023 16:16-0500 Diastolic blood pressure 60 mm[Hg] Christopher BROWN [facility] 07-18-2023 16:16-0500 Heart rate 92 /min Christopher BROWN [facility] 07-18-2023 16:16-0500 Respiratory rate 16 /min Christopher BROWN [facility] 07-18-2023 16:16-0500 SaO2% (BldA) [Mass fraction] 98 % Christopher BROWN [facility] 07-18-2023 16:16-0500 Systolic blood pressure 90 mm[Hg] Christopher BROWN [facility] 06-24-2023 13:49-0500 Blood Pressure Location Matt Gudimella [facility] 06-24-2023 13:49-0500 Diastolic blood pressure 72 mm[Hg] Matt Gudimella [facility] 06-24-2023 13:49-0500 Heart rate 89 /min Matt Gudimella [facility] 06-24-2023 13:49-0500 SaO2% (BldA) [Mass fraction] 97 % Matt Gudimella [facility] 06-24-2023 13:49-0500 Systolic blood pressure 98 mm[Hg] Matt Gudimella [facility] 06-20-2023 18:43-0500 Blood Pressure Location Filiberto Manuelpsey [facility] 06-20-2023 18:43-0500 Body temperature 98.06 [degF] Filiberto Cramer [facility] 06-20-2023 18:43-0500 Diastolic blood pressure 76 mm[Hg] Filiberto Manuelpsey [facility] 06-20-2023 18:43-0500 Heart rate 96 /min Filiberto Manuelpsey [facility] 06-20-2023 18:43-0500 SaO2% (BldA) [Mass fraction] 98 % Filiberto Manuelpsey [facility] 06-20-2023 18:43-0500 Systolic blood pressure 122 mm[Hg] Filiberto Cramer [facility] 12-28-2021 11:20-0400 Body height 167.64 cm Ric Tinoco Other [employer] Other 12-28-2021 11:20-0400 Body mass index (BMI) [Ratio] 21.14 kg/m2 Ric Tinoco Other [employer] Other 12-28-2021 11:20-0400 Body weight 59.42 kg Ric Tinoco Other [employer] Other 04-17-2021 15:40-0400 Body height 167.64 cm Ric Tinoco Other [employer] Other 04-17-2021 15:40-0400 Body mass index (BMI) [Ratio] 21.14 kg/m2 Ric Tinoco Other [employer] Other 04-17-2021 15:40-0400 Body weight 59.42 kg Ric Tinoco Other [employer] Other 05-31-2020 15:50-0500 Body weight 63.96 [facility] [place] [facility] 15:50-0500 BP Diastolic 79 mm[Hg] [facility] , [place] 05-31-2020 15:50-0500 BP Systolic 107 mm[Hg] [facility] [place] 05-31-2020 15:50-0500 Pulse (Heart Rate) 67 /min [facility], [place] 05-31-2020 15:50-0500 Pulse Oximetry 100 % [facility] [place] 05-31-2020 15:50-0500 Respiratory Rate 20 /min [facility] [place] Encounters Encounter Date Encounter Type Care Provider Facility Start: 03-21-2025 End: 03-21-2025 ambulatory Ruben Mcknight MD Work Phone: [facility] Work Phone: Start: 03-21-2025 End: 03-21-2025 Patient encounter procedure Petra Eaton [employer] [facility] [place] Work Phone: Start: 12-20-2024 End: 12-20-2024 ambulatory Suzie Alegria MD Facility: [facility] Start: 09-20-2024 End: 09-20-2024 Bamboo flowsheet Petra Calle [employer] Work Phone: [facility] Start: 09-20-2024 End: 09-20-2024 Bamboo flowsheet Petra Calle [employer] Work Phone: [facility] Start: 09-20-2024 End: 09-20-2024 ambulatory PETRA CALLE Not Available Start: 09-20-2024 End: 09-20-2024 Office outpatient visit 15 minutes Petra Calle [employer] [facility] Comment on above: Migraine without aur a and without status migrainosus, not intractable (CMS/HCC) (Primary Dx); Neck pain; Paresthesias Start: 09-20-2024 End: 09-20-2024 ambulatory [facility] Start: 08-23-2024 End: 08-23-2024 ambulatory Suzie [facility]legria MD [facility] Start: 08-02-2024 End: 08-02-2024 Bamboo flowsheet Kraig Goodman MD Work Phone: [facility] Start: 08-02-2024 End: 08-02-2024 Bamboo flowsheet Kraig Goodman MD Work Phone: [facility] Start: 08-02-2024 End: 08-02-2024 Office outpatient visit 25 minutes Kraig Goodman MD Work Phone: [facility] Comment on above: Menopausal symptoms; Vaginal [...] Start: 05-10-2024 End: 05-10-2024 ambulatory SUHAS MCGHEE Facility[facility] Start: 05-10-2024 End: 05-10-2024 Patient encounter procedure [facility] Charley [facility] [place] [facility] Start: 04-06-2024 End: 04-06-2024 ambulatory PETRA CALLE Not Available Start: 04-06-2024 End: 04-06-2024 Office outpatient visit 15 minutes Petra Calle NP Work Phone: [facility] Comment on above: Cervical radiculopat hy (Primary Dx); Lumbosacral radiculopathy; Paresthesias; Migraine without aura and without status migrainosus, not intractable (CMS/HCC); Myalgia Start: 04-05-2024 End: 04-05-2024 ambulatory Suzie Alegria MD Facility: [facility] Start: 03-29-2024 End: 03-29-2024 ambulatory Suzie Alegria MD Facility: [facility] Start: 03-08-2024 End: 03-08-2024 Bamboo flowsheet Edwin Arambula DO Work Phone: [facility] Start: 03-08-2024 End: 03-08-2024 Bamboo flowsheet Edwin Arambula DO Work Phone: [facility] Start: 03-08-2024 End: 03-08-2024 Patient encounter procedure Edwin Arambula DO Work Phone: [facility] Comment on above: Lumbosacral radiculo shira (Primary Dx); Low back pain at multiple sites; Paresthesia; Sacral radiculopathy Start: 03-08-2024 End: 03-08-2024 ambulatory EDWIN ARAMBULA Not Available Start: 03-01-2024 End: 03-01-2024 Bamboo flowsheet Marta Puente MD Work Phone: [facility] Start: 03-01-2024 End: 03-01-2024 Bamboo flowsheet Marta Puente MD Work Phone: [facility] Start: 03-01-2024 End: 03-01-2024 Office outpatient visit 15 minutes Marta Puente MD Work Phone: [facility] Comment on above: Mass of thyroid nadir on (Primary Dx) Start: 03-01-2024 End: 03-01-2024 ambulatory MARTA PUENTE Not Available Start: 01-13-2024 End: 01-13-2024 ambulatory Marta Puente Facility:[facility] Start: 01-13-2024 End: 01-13-2024 Patient encounter procedure Marta Puente [facility] Start: 11-12-2023 End: 11-12-2023 ambulatory Mattdinesh Bass Facility:[facility] Start: 11-12-2023 End: 11-12-2023 Patient encounter procedure Matt Bass [facility] Start: 10-21-2023 End: 10-21-2023 Patient encounter procedure SUHAS MCGHEE [facility] Start: 10-21-2023 End: 10-21-2023 ambulatory SUHAS MCGHEE Facility:[facility] Start: 10-07-2023 End: 10-07-2023 [facility] Start: 10-07-2023 End: 10-07-2023 Patient encounter procedure Rosendoeduardo MCKNIGHT [facility] Start: 09-10-2023 End: 09-10-2023 ambulatory SUHAS MCGHEE Facility:[facility] Start: 09-10-2023 End: 09-10-2023 Patient encounter procedure SUHAS MCGHEE [facility] Start: 08-04-2023 Bamboo flowsheet Marta rubio MD Work Phone: [facility] Start: 08-04-2023 Bamboo flowsheet Marta rubio MD Work Phone: [facility] Start: 08-04-2023 End: 08-04-2023 Office outpatient visit 15 minutes Marta Puente MD Work Phone: [facility] Comment on above: Mass of thyroid nadir on (Primary Dx); Hyperthyroidism (CMS/HCC) Start: 07-29-2023 ambulatory Rosendoeduardo MCKNIGHT Facil ity: [facility] Start: 07-24-2023 End: 07-24-2023 ambulatory Matt Gudimella Facility:[facility] Start: 07-24-2023 End: 07-24-2023 Patient encounter procedure Matt Gudimella [facility] Start: 07-18-2023 End: 07-18-2023 [facility] Facility:[facility] Start: 07-18-2023 End: 07-18-2023 Patient encounter procedure Rosendoeduardo MCKNIGHT [facility] Start: 07-18-2023 End: 07-18-2023 [facility] Start: 07-18-2023 End: 07-18-2023 Patient encounter procedure Matt Gudimella [facility] Start: 07-14-2023 End: 07-14-2023 ambulatory MD Ruben Mcknight Work Phone: [facility] Work Phone: Start: 07-14-2023 End: 07-14-2023 Departed Referred MD Ruben Mcknight Work Phone: [facility] Start: 07-08-2023 End: 10-07-2023 ambulatory Matt Gudimella Facility:[facility] Start: 07-08-2023 End: 10-07-2023 Recurring Matt Gudimella [facility] Start: 06-27-2023 ambulatory Matt Gudimella Facilit y:[facility] Start: 06-27-2023 End: 06-27-2023 ambulatory Matt Gudimella Facility:[facility] Start: 06-27-2023 End: 06-27-2023 Patient encounter procedure Matt Gudimella [facility] Start: 06-24-2023 End: 06-24-2023 ambulatory Matt Gudimella Facility:[facility] Start: 06-24-2023 End: 06-24-2023 Patient encounter procedure Matt Gudimella [facility] Start: 06-21-2023 End: 06-21-2023 ambulatory Filiberto Cramer Facility:[facility] Start: 06-21-2023 End: 06-21-2023 Patient encounter procedure Filiberto Cramer [facility] Start: 06-20-2023 End: 06-20-2023 ambulatory Filiberto Cramer Facility: [facility] Start: 06-20-2023 End: 06-20-2023 Patient encounter procedure Filiberto EatonJanie Henryey [facility] Start: 06-09-2023 End: 06-09-2023 ambulatory Narendranath Lakshmipathy Facility:[facility] Start: 06-09-2023 End: 06-09-2023 Patient encounter procedure Narendranath Lakshmipathy [facility] Start: 04-28-2023 End: 04-28-2023 Patient encounter procedure EBER POTTS [facility] Start: 11-05-2022 End: 11-06-2022 ambulatory NARENDRANATH LAKSHMIPATHY . Facility: Start: 10-22-2022 End: 10-22-[address] DOCTOR ALEJANDRE Facility:[facility] Start: 10-01-2022 End: 10-02-2022 ambulatory ISAURA KELLY . Facility:[facility] Start: 08-27-2022 End: 08-27-2022 ambulatory Ric Tinoco Other [facility] [employer] Other Start: 08-27-2022 Telephone encounter Ric Tinoco [facility] Start: 06-11-2022 End: 06-12-[address] HERB RIVERO . Facility:[facility] Start: 05-28-2022 End: 05-28-[address] HERB RIVERO . Facility:[facility] Start: 03-05-2022 End: 03-06-[address] HERB RIVERO . Facility:[facility] Start: 12-28-2021 End: 12-28-2021 ambulatory Ric Tinoco Other [employer] Other Start: 12-28-2021 Office outpatient vi sit 15 minutes Ric Tinoco [facility] Start: 12-03-2021 End: 12-03-2021 Patient encounter procedure Kraig J Xavier [facility] Start: 11-08-2021 End: 11-09-[address] HERB RIVERO . Facility: Start: 07-13-2021 End: 10-11-2021 Patient encounter procedure Nancy MCKNIGHT [facility] Start: 04-17-2021 Office outpatient vi sit 15 minutes Ric Tinoco [facility] Start: 05-31-2020 End: 05-31-2020 Emergency department patient visit [place] [facility] Start: 05-31-2020 End: 05-31-2020 Emergency department patient visit [facility] Angelito [facility] Work Phone: [facility] ED Comment on above: Chest wall pain (Brunilda michelet Dx) Start: 12-30-2018 End: 01-07-2019 Patient encounter procedure PROVIDER UNKNOWN Facility:[facility] Procedures Date Procedure Procedure Detail Performing Clinician Start: 03-08-2024 End: 03-08-2024 Needle emg ea extremty w/paraspinl area complete Edwin Arambula DO Work Phone: Start: 07-14-2023 Fine biopsy needle, device (physical object) Nancy MCKNIGHT Comment on above: thyroid nodule Start: 06-18-2021 Mammography Petra cardoza [employer] Work Phone: Start: 06-12-2020 Local anesthetic sac ral epidural block Nancy MCKNIGHT Comment on above: @ [facility] per pain mgmt Start: 05-31-2020 Ecg routine ecg w/le ast 12 lds w/i&r KATHY GHOSH Start: 05-31-2020 Ecg routine ecg w/le ast 12 lds w/i&r Kathy Angelito Césarkassandra Work Phone: Start: 12-06-2019 Interbody fusion of lumbar spine by anterior approach Nancy MCKNIGHT Comment on above: [facility] Start: 06-19-2018 Removal of sebaceous cyst Nancy MCKNIGHT Comment on above: Right inner thigh Start: 06-23-2006 Augmentation mammoplasty Nancy MCKNIGHT H/O: hysterectomy S/P laparoscop ic hysterectomy MD Ruben Mcknight Work Phone: Comment on above: Problem List clean-u p per request of Phys. EHR Cmte laparoscopy 4 Nancy [facility] Comment on above: 2014 Dr. Redd- endo metriosis laparoscopy 5 Nancy [facility] Comment on above: 2014 Dr. Chantel narvaez metriosis lumbar microdisectomy 5 Rex MCKNIGHT Comment on above: 10/2017 Dr. Barnes @ [facility] lumbar microdisectomy 6 Rex MCKNIGHT Comment on above: 10/2017 Dr. Barnes @ [facility] TVH 6 Nancy [facility]IN [facility] Comment on above: per Dr. Glez 8 wisdom teeth extracted Ruben MCKNIGHT Plan of Treatment Date Care Activity Detail Author Start: 05-31-2026 Screening for malignant neoplasm of cervix [facility] Start: 07-15-2025 End: 09-30-2025 DBT Breast - bilateral screening Bilateral screening mammogram with tomosynthesis Imaging Routine Other screening mammogram Expected: 07/15/2025, Expires: 09/30/2025 [facility] Comment on above: Expected: 07/15/2025 , Expires: 09/30/2025 Start: 03-21-2025 End: 03-21-2025 Patient encounter procedure 03/21/2025 8:20 AM EDT Office Visit [facility] [address] [place] [id number] Petra Calle NP [address] [place] [address] [facility] Start: 09-20-2024 End: 09-20-2024 Patient encounter procedure [facility] Start: 2024 Screening for malignant neoplasm of breast Mammogram [facility] Start: 08-02-2024 End: 08-02-2024 Patient encounter procedure [facility] Comment on above: Arrived Start: 04-28-2024 End: 04-28-2024 Patient encounter procedure 04/28/2024 9:40 AM EST Office Visit [facility] [address] [place] [address] Suhas Mcghee MD [address] [place] [address] [facility] Start: 04-06-2024 End: 04-06-2024 Patient encounter procedure 04/06/2024 8:20 AM EDT Office Visit [facility] [address] [place] [address] Petra Calle NP [address] [place], [place] [facility] Start: 03-08-2024 End: 03-08-2024 Patient encounter procedure [facility] Comment on above: Arrived Start: 03-01-2024 End: 03-01-2024 Patient encounter procedure 03/01/2024 8:30 AM EDT Office Visit [facility] [address] [place] [address] Marta Puente MD [address] [facility] [address] [place] [address] Arrived [facility] [place] Comment on above: Arrived Start: 02-22-2024 Influenza vaccination Influenza Vacc ine (#1) [facility] Start: 08-04-2023 End: 08-04-2023 Patient encounter procedure 08/04/2023 11:20 AM EST Office Visit [facility] [address] [place] [address] Marta Puente MD [address] [place] [address] [address] [place] [address] Arrived [facility] Comment on above: Arrived Start: 02-21-2023 Influenza vaccination Influenza Vacc ine (#1) [facility] Start: 02-22-2020 Influenza vaccination Flu vaccine (# 1) [place], [place] Start: 2005 Screening for malignant neoplasm of cervix Pap Smear [facility] EKG 12 Lead EKG 12 Lead ECG STAT 05/31/2020 4:01 PM EST [place], [place] IGP, APT HPV,RFX 16/18,45 IGP, APT HPV,RFX 16/18,45 Lab Routine Vaginal Pap smear Screening for HPV (human papillomavirus) Ordered: 08/02/2024 [facility] Work Phone: Comment on above: Ordered: 08/02/2024 Immunizations Immunization Date Immunization Notes Care Provider Fa cili 10-28-2020 COVID-19, mRNA, LNP-S, PF, 30 mcg/0.3 mL dose; Translations: [Pfizer-BioNTech COVID-19 Vaccine] [facility] [employer] [facility] Comment on above: Reason for Medicatio n: Prophylaxis 10-07-2020 COVID-19, mRNA, LNP-S, PF, 30 mcg/0.3 mL dose; Translations: [Pfizer-BioNTech COVID-19 Vaccine] [facility] [employer] [facility] Comment on above: Reason for Medicatio n: Prophylaxis 04-15-2020 influenza, injectable, quadrivalent, contains preservative THEVAeduardo [employer] [facility] 04-15-2020 influenza virus vaccine, unspecified formulation Marta Puente MD Work Phone: [facility] 03-23-2018 influenza virus vaccine, unspecified formulation [facility] [employer] [facility] 03-23-2017 influenza, injectable, quadrivalent, contains preservative Marta Puente MD Work Phone: [facility] 03-10-2013 tetanus toxoid, reduced diphtheria toxoid, and acellular pertussis vaccine, adsorbed Rosendoeduardo MCKNIGHT [facility] Comment on above: Reason for Medicatio n: Other (see comment) 10-13-2007 tetanus toxoid, reduced diphtheria toxoid, and acellular pertussis vaccine, adsorbed Filiberto Cramer [facility] 10-24-1999 hepatitis A and hepatitis B vaccine Filibertocezar ManuelShoaib [facility] 01-25-1998 measles, mumps and rubella virus vaccine Filiberto Cramer [facility] NEGATED: Highlighted row has not occurred!07-18-2023 influenza virus vaccine, unspecified formulation Nancy MCKNIGHT [facility] NEGATED: Highlighted row has not occurred!06-20-2023 influenza virus vaccine, unspecified formulation Filibertocezar Cramer [facility] Payers Date Payer Category Payer Self-pay [id number] 2023 Unknown 2022 Medicaid [id number] 2022 Medicaid [id number] 2006 Private Health Insurance [id number] 1984 Unknown [id number] 2.16.8 40.1.524989.3.579.2.647 1984 Unknown [id number] 2.16.84 0.1.362899.3.579.2.174 1984 Unknown [id number] 2.16.84 0.1.062001.3.579.2.593 1984 Unknown [id number] 2.16.84 0.1.341509.3.579.2.593 1984 Unknown [id number] 2.16.84 0.1.610795.3.579.2.593 1984 Unknown [id number] 2.16.84 0.1.828256.3.579.2.593 1984 Unknown [id number] 2.16.84 0.1.884057.3.579.2.593 1984 Unknown [id number] 2.16.84 0.1.161785.3.579.2.593 1984 Unknown [id number] 2.16.84 0.1.526612.3.579.2.593 1984 Unknown [id number] 2.16.8 40.1.300534.3.579.272 1984 Unknown [id number] 2.16.8 40.1.524100.3.579.272 1984 Unknown [id number] 2.16.8 40.1.836214.3.579.272 1984 Unknown [id number] 2.16.8 40.1.645532.3.579.2727 1984 Unknown [id number] 2.16.8 40.1.127075.3.579.272 1984 Unknown [id number] 2.16.8 40.1.222649.3.579.272 1984 Unknown [id number] 2.16.8 40.1.067277.3.579.272 1984 Unknown [id number] 2.16.8 40.1.029616.3.579.272 1984 Unknown [id number] 2.16.8 40.1.778188.3.579.2.727 1984 Unknown [id number] 2.16.8 40.1.678941.3.579.2.727 1984 Unknown [id number] 2.16.8 40.1.515769.3.579.2.727 1984 Unknown [id number] 2.16.8 40.1.414063.3.579.2.727 1984 Unknown [id number] 2.16.8 40.1.335707.3.579.2.727 1984 Unknown [id number] 2.16.8 40.1.157488.3.579.2.727 1984 Unknown [id number] 2.16.8 40.1.032724.3.579.2.727 1984 Unknown [id number] 2.16.8 40.1.970719.3.579.2.727 1984 Unknown [id number] 2.16.8 40.1.529372.3.579.2.727 1984 Unknown [id number] 2.16.84 0.1.865322.3.579.2.9 1984 Unknown [id number] 2.16.84 0.1.057169.3.579.2.9 1984 Unknown [id number] 2.16.84 0.1.261082.3.579.2.9 1984 Unknown [id number] 2.16.84 0.1.175886.3.579.2.9 1984 Unknown [id number] 2.16.84 0.1.870434.3.579.2.9 1984 Unknown [id number] 2.16.84 0.1.209593.3.579.2.9 1984 Unknown [id number] 2.16. 840.1.430117.3.579.2.196 1984 Unknown [id number] 2.16. 840.1.710132.3.579.2.196 1984 Unknown [id number] 2.16. 840.1.516222.3.579.2.196 1984 Unknown [id number] 2.16. 840.1.948763.3.579.2.196 1984 Unknown [id number] 2.16. 840.1.513849.3.579.2.196 1984 Unknown [id number] 2.16. 840.1.321069.3.579.2.196 1959 Private Health Insurance [id number] 1.2.840.359795.1.13.239.2.7.3.973022.315 Unknown [id number] 2.16.8 40.1.454578.3.579.2.531 Social History Date Type Detail Facility Start: 12-06-2019 End: 05-31-2020 Tobacco smoking status NHIS Never smoker [facility] Start: 05-31-2020 End: 05-06-2023 Tobacco use and exposure Never used [employer] Sex Assigned At Not on file [employer] [place] Exposure to SARS-CoV -2 (event) Not sure [facility] Tobacco smoking status Never [facility] Start: 07-03-2023 End: 09-20-2024 Sex Assigned At Female [employer] Other Start: 1985 Sex Assigned At Female [facility] Start: 07-31-2023 End: 09-20-2024 Alcohol [...] 05-06-2023 Sexual orientation Heterosexual (finding) [facility] Sex Female (finding) [facility] Medical Equipment Procedure Code Equipment Code Equipment Origin al Text Equipment Identifier Dates Anterior lumbar interbody fusion (ALIF) STRATOFUSE DBM [id number] FDA Start: 12-06-2019 Anterior lumbar interbody fusion (ALIF) Orthopaedic bone screw, non-bioabsorbable, non-sterile [id number] FDA Start: 12-06-2019 Anterior lumbar interbody fusion (ALIF) Orthopaedic bone screw, non-bioabsorbable, non-sterile [id number] FDA Start: 12-06-2019 Anterior lumbar interbody fusion (ALIF) Bone-screw internal spinal fixation system, non-sterile +[id number] FDA Start: 12-06-2019 Anterior lumbar interbody fusion (ALIF) Bone-screw internal spinal fixation system, non-sterile +[id number] FDA Start: 12-06-2019 Anterior lumbar interbody fusion (ALIF) Spinal fusion graft kit ()[id number]( [id number]) [id number] FDA Start: 12-06-2019 Anterior lumbar interbody fusion (ALIF) Spinal bone screw, non-bioabsorbable ()[id number] FDA Start: 12-06-2019 Anterior lumbar interbody fusion (ALIF) Metallic spinal fusion cage, non-sterile ()[id number] FDA Start: 12-06-2019 Anterior lumbar interbody fusion (ALIF) Bone-screw internal spinal fixation system, non-sterile +[id number] FDA Start: 12-06-2019 Anterior lumbar interbody fusion (ALIF) STRATOFUSE DBM [id number] FDA Start: 12-06-2019 Functional Status Date Assessment Result Facility 11-12-2023 Functional Status N/A [facility] 10-07-2023 Functional Status N/A [facility] 07-24-2023 Functional Status N/A [facility] 07-18-2023 Functional Status N/A [facility] 06-24-2023 Functional Status N/A [facility] 06-20-2023 Functional Status N/A [facility] Clinical Notes 04-17-2021 to 09-20-2024 Petra Calle [...] Laterality Date ABDOMINAL SURGERY ADENOIDECTOMY BREAST SURGERY 2007 Breast augmentation BREAST [...] likely related to hyperthyroidism. She does see jet engine mechanic for this. . TESTING AND RECORDS: We [...] this. . . . Plan continue with jet engine mechanic for thyroid Continue with Dr. Cottrell, pain [...] clinic: 6 months documented in this encounter [facility] 08-02-2024 History of Presen t illness Narrative [...] Review Audit Reviewed by Helen Shaver MA (Biology Teacher) on 08/02/24 at 1134 Medication Order Taking? Sig Documenting Provider Last Dose Status baclofen (Lioresal) 10 MG tablet [id number] TAKE 1 TABLET BY MOUTH TWICE DAILY (IN THE MORNING AND BEFORE BEDTIME) Petra Calle NP Active erenumab (Aimovig) 140 MG/ML injection [id number] INJECT 1 SYRINGE SUBCUTANEOUSLY ONCE EVERY MONTH Petra Calle NP Active estradiol (Estrace) 2 MG tablet [id number] Take 1 tablet (2 mg) by mouth Daily Kraig Goodman MD Active gabapentin (Neurontin) 600 MG tablet [id number] No Take 1 tablet by mouth Daily Kraig Goodman MD Taking Active methIMAzole (Tapazole) 10 MG tablet [id number] No Take 10 mg by mouth Marta Puente MD Taking Active OXcarbazepine (Trileptal) 300 MG tablet [id number] TAKE 1/2 (ONE-HALF) TABLET BY MOUTH IN THE MORNING AND 1 TO 2 TABLETS AT BEDTIME Petra Calle NP Active Discontinued 08/02/24 1134 Rimegepant Sulfate (Nurtec) 75 MG tablet dispersible [id number] Take 1 tablet by mouth Daily as needed (1 tablet at the onset of a migraine. do not repeat. no more than 2 days/week) Petra Calle NP Active tiZANidine (Zanaflex) 4 MG tablet [id number] Take 1 tablet (4 mg) by mouth at bedtime Petra Calle NP Active traMADol (Ultram) 50 MG tablet [id number] No TAKE 1 TABLET BY MOUTH THREE [...] patient ? Answer: No IGP, APT HPV,RFX , Order Specific Question: Print requisition? Answer: Yes documented in this encounter [facility] 07-21-2024 Telephone encounter Note error [facility] 07-21-2024 Miscellaneous Notes error documented in this encounter [facility] 05-10-2024 Evaluation + Plan note Diagnostic Tests PendingT3 Free 05/10/24 Future Scheduled TestsLab Miscellaneous-LC 07/24/23 [facility] 03-08-2024 History of Presen t illness Narrative Images from the original note were not included. 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 Back pain. Radiates in the hips, shooting pains down the legs. Hx of back surgery. No Hx of DM, not taking blood thinners. Comments: Procedure explained to the patient who expressed understanding. documented in this encounter [facility] 03-01-2024 History of Presen t [...] Noted Mass of thyroid region 07/04/2023 Hyperthyroidism ([facility]/HCC) 07/04/2023 Chronic pharyngitis 07/04/2023 Diplopia 12/01/2018 Occipital neuralgia 07/30/2018 Migraine ([facility]) 2017 Tingling of right upper extremity 12/01/2018 Weakness of right arm 10/08/2023 Cervical radiculopathy 04/14/2019 Degenerative disc disease, cervical 07/16/2018 Neck pain 07/30/2018 Migraine without aura and without status migrainosus, not intractable ([facility]) 04/26/2021 Tension type headache 04/26/2021 Lumbar radiculopathy [...] further routine US documented in this encounter [facility] 10-21-2023 Evaluation + Plan note Diagnostic Tests PendingT3 Free 10/21/23 Future Scheduled TestsLab Miscellaneous-LC 07/24/23 [facility] 10-07-2023 Hospital Discharg e instructions Patient [...] Treatment for this condition includes: Antibiotic medicine. Sfgl-hfl-oescofk medicines to treat discomfort. Drinking enough water [...] Follow these instructions at home: Medicines Take tibn-ghg-sgcltqn and prescription medicines only as told by [...] provider. Document Revised: 01/19/2021 Document Reviewed: 01/19/2021 [employer] Patient Education 2022 [employer]. Follow Up Care 10/07/2023 07:28:28 With:Nancy MCKNIGHT MD, FAM Address: When: only if needed [facility] [place] 08-04-2023 History of Presen t illness Narrative [...] per Dr Mcghee documented in this encounter [facility] 07-24-2023 Evaluation + Plan note Future Scheduled TestsLab Miscellaneous-LC 07/24/23Echo Transthoracic Complete 07/24/23 [facility] [place] 07-24-2023 Evaluation + Plan note Future Scheduled TestsLab Miscellaneous-LC 07/24/23 [facility] 07-18-2023 Evaluation + Plan note Diagnostic Tests PendingT3 Reverse, Serum 07/18/23Thyroid Perox.tpo Ab 07/18/23TgAb+Thyroglobulin,NIGEL or KELVIN 07/18/23 [facility] 07-18-2023 Hospital Discharg e instructions Patient [...] surgery. Follow these instructions at home: Take fiog-mme-ofrlgvh and prescription medicines only as told by [...] condition. Where to find more information National [place] of Diabetes and Digestive and Kidney Diseases: [...] Document Reviewed: 08/02/2022 Elsevier Patient Education 2022 [employer]ic. Follow Up Care 07/18/2023 07:34:13 With:Nancy MCKNIGHT MD, FAM Address: When: only if needed [facility] [place] 06-21-2023 Evaluation + Plan note Diagnostic Tests PendingT3 Free 06/21/23 Future Scheduled TestsCBC w/ Auto Diff 06/20/23Comprehensive Metabolic Panel 06/20/23Free T4 06/20/23 [facility] 06-20-2023 Hospital Discharg e instructions Patient [...] few weeks. Home care treatment may include: Eyix-neu-zfkxtzw pain relievers. A warm, moist cloth placed over the ear. Severe cases may require a procedure to insert tubes in the ears (tympanostomy tubes) to drain the fluid. Follow these instructions at home: Take xixb-jnj-dwxcgyq and prescription medicines only as told by [...] provider. Document Revised: 10/04/2021 Document Reviewed: 10/04/2021 [employer] Patient Education 2022 [employer]. 06/20/2023 19:03:16 Thyroid Nodule Thyroid Nodule A [...] in your thyroid nodule or nodules. Take vplt-rzs-esqbeqd and prescription medicines only as told by [...] provider. Document Revised: 04/22/2022 Document Reviewed: 04/22/2022 [employer] Patient Education 2022 [employer]. Follow Up Care 06/20/2023 07:23:01 With:Nancy MCKNIGHT MD, FAM Address: [address] [place], [place] [id number]- When: Unknown [facility] 06-20-2023 Evaluation + Plan note Future Scheduled TestsT4 Total 06/20/23CBC w/ Auto Diff 06/20/23Comprehensive Metabolic Panel 06/20/23T3 Free 06/20/23T3 Uptake 06/20/23Thyroid Stimulating Hormone 06/20/23Free T4 06/20/23 [facility] 10-01-2022 Note CONSULTATION CONSULTATION [...] our patients to inform us about any uukt-awx-mmhkvvi medications or herbal remedies/nutritional supplements/alternative remedies. 2. [...] with their primary care provider. [facility] 06-11-2022 Note CONSULTATION CONSULTATION DATE: 06/11/2022 CHIEF [...] and concurs. CC: Nancy Mcknight M.D. [facility] 03-05-2022 Note PAIN MANAGEMENT CONS ULTATION CONSULTATION [...] along this region. CC: Dr. Mcknight [facility] 12-28-2021 Evaluation note Encounter Date Diagnosis Assessment [...] follow her up on an as-needed basis [employer] Other 06-13-2022 Evaluation + Plan note Diagnostic Tests Pending * Insulin Level Total 12/03/21 * T3 Free 12/03/21 * FSH Level 12/03/21 Future Scheduled Tests Laboratory* COVID-19 ([facility]) 07/13/21 [facility]05-19-2022 NoteCONSULTATION CONSULTATION DATE: 11/08/2021 This is [...] plan on seeing Dr. Damon in [facility]. Activities that aggravate her neck [...] care and would like to proceed. [facility] Signed and Approved by: ISAURA KELLY . 11/12/2021 15:05:00[id number] Evaluation + Plan note Future Scheduled Tests Laboratory* COVID-19 ([facility]) 07/13/21 [facility]10-26-2021 Evaluation note* Encounter Date Diagnosis Assessment Notes Treatment Notes Treatment Clinical Notes Mar, Spondylolisthesis at L5-S1 level (ICD-10 - M43.17) I answered a number of questions for the patient. I think a transforaminal injection may be beneficial. I also believe that she could potentially benefit from a dorsal column stimulator. She is seeing a another neurologist at [facility] and I am interested in [...] region with neurogenic claudication (ICD-10 - M48.062) [employer] Other evaluation + Plan note Future Appointments Appointment Date:06/27/2023 07:30:00 AM Scheduled Provider: Location:.[facility] Appointment Type:US Thyroid/Neck/Chest (FT) Appointment Date:06/27/2023 08:00:00 AM Scheduled [facility]: [facility] Type:CV EKG () Appointment Date:07/29/2023 12:40:00 PM Scheduled Provider:Nancy MCKNIGHT MD Location:[facility] HELEN Fontenot Appointment Type: Open Future Scheduled Tests Laboratory* UA With Cult Reflex 06/24/23 * CBC w/ Auto Diff 06/20/23 * Comprehensive Metabolic Panel 06/20/23 * Lipid Panel 06/24/23 * Free T4 06/20/23 Radiology* US Thyroid 06/27/23 [facility] [place] Evaluation + Plan note Future Appointments Appointment Date:07/29/2023 12:40:00 PM Scheduled Provider:Nancy MCKNIGHT MD Location:[facility] Appointment Type:FM Open Future Scheduled Tests Laboratory* UA With Cult Reflex 06/24/23 * CBC w/ Auto Diff 06/20/23 * Comprehensive Metabolic Panel 06/20/23 * Lipid Panel 06/24/23 * Free T4 06/20/23 Radiology* US FNA w/ Guidance, first lesion 06/27/23 * NM Thyroid Imaging w/ Uptk Multiple 06/27/23 [facility] Future Appointments Appointment Date:09/11/2023 08:00:00 AM Scheduled Provider: [facility] Type:CV Echo () Diagnostic Tests Pending * T3 Free 09/10/23 * Thyrotropin Receptor Antibody, Serum 09/10/23 Future Scheduled Tests Laboratory* Lab Miscellaneous-LC 07/24/23 Radiology* Echo Transthoracic Complete 09/11/23 [facility] note[facility] InformationNort [employer] Other evaluation noteNo assessment information available [facility] Work Phone: Evaluation note* Diagnosis [...] thyroid region- Primary documented in this encounter [facility] HealthcareEvaluation note* Diagnosis Menopausal symptoms Symptomatic menopausal or female climacteric states Vaginal Pap smear Special screening for malignant neoplasms, vagina Screening for HPV (human papillomavirus) Special screening examination for human papillomavirus (HPV) Other screening mammogram documented in this encounter [facility] Healthcare[facility] note* Diagnosis Migraine without aura and without status migrainosus, not intractable (CMS/HCC)- Primary Neck pain Cervicalgia Paresthesias Disturbance of skin sensation documented in this encounter [facility] HealthcareEvaluation note* Diagnosis Onset Date Resolution Status Admit Date Cervical radiculopathy acute Se ptember 2024 8:13am Lumbosacral radiculopathy acute March 21, 2025 8:13am Migraine without aura and without status migrainosus, not intractable acute March 21, 2025 8:13am Myalgia acute February 8:13am Neck pain acute February 8:13am Paresthesias acute March 212024 8:13am [facility] Work Phone: History general Narrative - Reported* [...] ALIF-Doctor Alejandrina Hospitalization History see surgical hx [facility] [employer] Other Hospital course Narrative No data available for this section [facility] No data available for this section [facility] No data available for this section [facility] HospitalReason for referral (narrative)No reason for referral information availableAdena [facility] Work Phone: Summary Purpose Family History Relationship Condition Age at Onset Recorded Date/T rody Not Specified Healthy female adult Unknown father Osteoarthritis Unknown Degeneration of intervertebral disc Unkno wn Relationship Condition Age at Onset Recorded Date/T rody mother Healthy female adult Unknown father Osteoarthritis Unknown Degeneration of intervertebral disc Unkno wn grandparent Unknown Malignant neoplasm of colon Unknown Malignant neoplasm Unknown grandparent Malignant neoplasm Unknown Advance Directives Documents on File Type Date Recorded Patient Nursing Home Admissions Director Expl anation ACP-Advance Directive ACP-Power of Professional Volleyball Player Advance Directive Response Recorded Date/ Time Advance Directives No September 02, 018 11:39am Advance Directive Response Recorded Date/ Time Advance Directives No September 02, 018 12:39pm Discharge Instructions * Instructions* Kathy Ghosh MD - 05/31/2020 Ibuprofen or Aleve as directed * Attachments The following attachments cannot be sent through Care Everywhere. * Chest Pain: Musculoskeletal (Singaporean) documented in this encounter Assessments Diagnosis Chest [...] Specialty Pain Medicin e Referral Priority Routine Chief Complaint and Reason for Visit Chief Complaint Admit Date 6 month follow up March 21, 2025 8:13am Reason for Visit Admit Date Cervical radiculopathy March 21, 025 8:13am Lumbosacral radiculopathy February 8:13am Migraine without aura and wi thout status migrainosus, not intractable March 21, 2025 8:13am Myalgia March 21, 2025 8:13am Neck pain March 21, 2025 8:13am Paresthesias March 21, 2025 8:13am Additional Source Comments INFORMATION SOURCE (unrecogn ized section and content) DATE CREATED AUTHOR 01/14/2020 [facility] DATE CREATED AUTHOR AUTHOR'S ORGANIZ ATION 06/01/2020 Kelli Fontenot Chuy rosales DATE CREATED AUTHOR AUTHOR'S ORGANIZ ATION 11/06/2022 [facility] DATE CREATED AUTHOR AUTHOR'S ORGANIZ ATION 08/01/2023 [facility] DATE CREATED AUTHOR AUTHOR'S ORGANIZ ATION 05/12/2024 [facility] DATE CREATED AUTHOR AUTHOR'S ORGANIZ ATION 05/17/2024 [facility] DATE CREATED AUTHOR AUTHOR'S ORGANIZ ATION 09/20/2024 [facility] DATE CREATED AUTHOR AUTHOR'S ORGANIZ ATION 12/31/2024 [facility] Reason for Visit (unrecogniz ed [...] July 14, 2023 End: July 14, 2023 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 Start Date End Date Nancy Mcknight MD [address] [place] [address] PCP - General 05/07/23 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 Start Date End Date Nancy Mcknight MD [address] [place] [address] PCP - General 05/07/23 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 Start Date End Date Nancy Mcknight MD [address] [place] [address] PCP - General 05/07/23 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 Start Date End Date Nancy Mcknight MD [address] [place] [address] PCP - General 05/07/23 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 Start Date End Date Nancy Mcknight MD [address] [place] [address] PCP - General 05/07/23 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 Start Date End Date Nancy Mcknight MD [address] [place] [phone] PCP - General 05/07/23 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 Start Date End Date Nancy Mcknight MD [address] [place] [address] PCP - General 05/07/23 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 Start Date End Date Nancy Mcknight MD [address] [place] [phone] PCP - General 05/07/23 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 Start Date End Date Nancy Mcknight MD [address] [place] [phone] PCP - General 05/07/23 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 Start Date End Date Nancy Mcknight MD [address] [place] [phone] PCP - General 05/07/23 Petra Calle NP [address] Nurse Practitioner Neurology 09/20/24 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 Start Date End Date Nancy Mcknight MD [address] [place] [address] PCP - General 05/07/23 Petra Calle NP [address] [place] Nurse Practitioner Neurology 09/20/24 Edwin Arambula DO [address] [place] [address] Referring Physician Neurology 09/20/24 Team Status: Inactive Member Role Status Dates Ruben Mcknight MD Primary Care Provider Active Start: March 21, 2025 End: March 21, 2025 Petra Calle APRN Attending Provider Active Start: March 21, 2025 End: March 21, 2025 Goals (unrecognized section and content) Goals may [...] BE BASED ON THE PRIMARY CLINICAL RECORDS. [employer] provides no warranty or guarantee of the accuracy or completeness of information in this document.
--- NOTE | 2025-04-11 15:02 | PM.CN ---
Consult Note: HPI Data of Consult Patient: known to practice within the last 3 years Consult date: 04/11/25 Requesting Physician: Suzie Alegria MD Primary Care Provider: Non-Staff Physician, Consult Narrative Reason for consult: neck, right arm pain Narrative: 39yof who presents for assessment. notes worsening pain in neck and right arm, worsening headaches. previous mri with multilevel degenerative changes and stenosis. has not had any recently updated advanced imaging due to loss of insurance for a period of time, but now back on insurance. continues in a series of provider directed home exercises >6 weeks, without significant benefit. uses gabapentin, tizanidine, tramadol. cc:: CC: Suzie Alegria MD Review of Systems ROS Status of ROS 10 or more systems reviewed and unremarkable except as noted in history and below [facility] Medical History Migraines ?G43.909 - Migraine, unspecified, not intractable, without status migrainosus (ICD-10) Chronic pharyngitis ?J31.2 - Chronic pharyngitis (ICD-10) Endometriosis determined by laparoscopy ?N80.9 - Endometriosis, unspecified (ICD-10) Hyperthyroidism ?E05.90 - Thyrotoxicosis, unspecified without thyrotoxic crisis or storm (ICD-10) Neck pain ?M54.2 - Cervicalgia (ICD-10) Low back pain ?M54.50 - Low back pain, unspecified (ICD-10) Numbness and tingling ?R20.0 - Anesthesia of skin (ICD-10) ?R20.2 - Paresthesia of skin (ICD-10) Surgical History S/P fine needle aspiration ?Z98.890 - Other specified postprocedural states (ICD-10) History of lumbar fusion ?Z98.1 - Arthrodesis status (ICD-10) H/O breast implant ?Z98.82 - Breast implant status (ICD-10) Hx of breast implants, bilateral ?Z98.82 - Breast implant status (ICD-10) Status post lumbar surgery ?Z98.890 - Other specified postprocedural states (ICD-10) H/O: hysterectomy ?Z90.710 - Acquired absence of both cervix and uterus (ICD-10) S/P T&A (status post tonsillectomy and adenoidectomy) ?Z90.89 - Acquired absence of other organs (ICD-10) Hx of laparoscopy ?Z98.890 - Other specified postprocedural states (ICD-10) H/O breast augmentation ?Z98.82 - Breast implant status (ICD-10) Meds Home Medications and Allergies Home Medications ?Medication ?Instructions ?Recorded ?Confirmed ?Type baclofen 10 mg tablet 10 mg PO BID 12/04/22 09/20/24 History tizanidine 4 mg tablet 4 mg PO .HS 12/04/22 09/20/24 History estradiol 2 mg tablet 2 mg PO DAILY 07/11/23 09/20/24 History oxcarbazepine 150 mg tablet 150 mg PO DAILY 07/11/23 09/20/24 History rimegepant 75 mg disintegrating 75 mg PO QDAY PRN migraine headache 01/14/24 09/20/24 History tablet (Nurtec ODT) gabapentin 300 mg capsule 300 mg PO BID #60 caps 02/04/24 09/20/24 Rx tramadol 50 mg tablet 50 mg PO TID PRN pain #90 tabs 06/08/24 09/20/24 Rx tramadol 50 mg tablet 50 mg PO TID PRN pain #90 tabs 09/01/24 09/20/24 Rx tramadol 50 mg tablet 50 mg PO TID PRN pain #90 tabs 10/21/24 Rx tramadol 50 mg tablet 50 mg PO TID PRN pain #90 tabs 12/10/24 Rx tramadol 50 mg tablet 50 mg PO BID PRN pain #60 tabs 03/02/25 Rx Allergies Allergy/AdvReac Type Severity Reaction Status Date / Time adhesive Allergy Rash Verified 09/20/24 10:26 latex Allergy Rash Verified 09/20/24 10:26 Exam Narrative Exam Narrative: Psych-alert and oriented x 3.? Attentive and appropriate, constitutionally normal, displays normal mood and affect per situation.? There are no obvious deficits in memory, reasoning, or intellect.? Skin-no obvious rashes, bruising, or erythema noted to the patient's area of pain.? Extremities-upper extremities are warm with minimal edema and palpable pulses. Cervical- tenderness to palpation noted in the cervical spine and paraspinal musculature.? Pain is elicited with flexion, extension, and lateral rotation of the cervical spine.? Range of motion is diminished due to pain. Facet loading maneuvers are positive.? Strength-unremarkable and within normal limits with the exception to the left triceps. Sensory-no notable sensory deficits in the bilateral upper extremities to touch or pinprick with the exception to decreased sensation to the right C5, 6, 7 dermatomal distribution.? Coordination remains intact.? Gait remains non-antalgic. Assessment and Plan Assessment and Plan (1) Cervical stenosis of spinal canal: (2) Cervical spondylosis: (3) Cervical radiculopathy: Plan 39yof who presents for assessment. failed conservative measures, as noted. imaging reviewed, as noted. given worsening symptoms, will update cervical mri without contrast for further information. she is in agreement. meds reviewed, no changes. follow up after imaging.
== END 2025-04-11 14:38 | disposition home or self-care (01) ==
PROVIDERS: Visit Provider Anesthesiology
DX: M48.02 Spinal stenosis, cervical region (principal); M47.812 Spondylosis without myelopathy or radiculopathy, cervical region; M54.12 Radiculopathy, cervical region
CPT/HCPCS: G0463

== ENCOUNTER 2025-05-11 07:55 | Outpatient (OUT) | payer OTHER, SELFPAY ==
--- OUTSIDE RECORDS SUMMARY | 2025-05-11 08:00 | XMS_ITS | CCD ---
Author Organization [facility] Care Team Providers Care Hvac Sales Engineer Name Role Phone UNKNOWN, PROVIDER Admitting Unavailable UNKNOWN, PROVIDER Attending Unavailable UNKNOWN, PHYSICIAN Referring Unavailable UNKNOWN, PHYSICIAN Primary Care Unavailable Nancy Mcknight Primary Care Provider KATHY GHOSH Attending Unavailable NANCY MCKNIGHT Primary Care Unavailable Nancy MCKNIGHT Primary Care Physician [phone] Ric Tinoco Unavailable JOSEFA ., DR HERB [...] Kathy Lincolns Marta Abreu H Attending Unavailable Marta Puente Jr H [...] F Admitting Unavailable Petra Calle NP Unavailable [phone] Edwin Arambula DO Unavailable KRAIG GOODMAN Attending Unavailable PETRA CALLE Attending Unavailable PETRA CALLE Attending Unavailable MARTA PUENTE Attending Unavailable RALF EDWIN Attending Unavailable EBER POTTS Referring Unavailable PETRA CALLE Attending Unavailable Giedraitis , Andrius Vytautcapri Attending Unavailable Giedraitis , Andrius Vytautas Attending Unavailable Giedraitis , Andrius Vytautas Attending Unavailable Giedraitis , Andrius Vytautas Attending Unavailable Girubinraparisa REES, Andrius Vytautas Attending Unavailable Giedraparisa REES, Andrius Vytautas Attending Unavailable Juan Luis REES, Ruben Quiroz Primary Care Provider [phone] Al[facility] SENIOR HEALTH CONSULTANTPetra M Attending Provider Nancy Mcknight MD Primary Care Provider [phone] Alva LITIGATION ASSOCIATE, Petra Unavailable Ralf DO, Edwin Unavailable Giedraitis, Andrius V. Admitting Unavailab le Giedraitis, Andrius V. Attending Unavailab le Giedraitis, Andrius V. Referring Unavailab le Allergies Allergy ClassificationReported Allergen(s)Allergy TypeDate of OnsetReaction(s) Facility (1 source)Adhesive agent; Translations: [Unknown]Propensity to adverse reactions (disorder)79-51-9439Pqy [facility] Repository (20 sources)Adhesive Tape; Translations: [Tape]Drug allergyEruption of skin (disorder)[facility] (20 sources)Latex; Translations: [Latex]Drug czbolpc27-24-3699HksnWeqtfKevstel Group Other (3 sources)adhesive bandagesPropensity to adverse reactionsCampbellton-Graceville [facility] Other (2 sources)Adhesive agentDrug allergy (disorder)21-97-4364eskiRmjOur [facility] of [facility] (1 source)Adhesive agentDrug allergy (disorder)20-74-0843NucyvdjpfUpper [facility] Rep[facility] (2 sources)Adhesive TapeDrug allergy (disorder)75-98-3942YhueMftzllzdfFirelands Regional [facility] Repository (20 sources)Wound Dressing AdhesiveDrug Vlsovod40-95-5991EjneOQRU Healthcare Medications Current Medications MedicationDrug Class(es)DatesSig (Normalized)Sig (Original)Aimovig 140 MG/ML (2 sources)Aimovig 140 MG/ML as directed Subcutaneous ActiveAimovig SureClick 70 mg/mL subcutaneous solution (1 source)Start: 66-06-6535qkrqui 140 mg by subcutaneous injection every month Aimovig SureClick 70 mg/mL subcutaneous solution 140 mg, SubCutaneous, qMonth, Refills(s) 0 Start Date: 02/01/19 Status: Orderedbaclofen 10 mg oral tablet (20 sources)gamma-Aminobutyric Acid-ergic AgonistStart: 65-05-9333ddep 1 tablet by mouth twice dailyBaclofen 10 mg tablet Active 10 MG PO Twice daily March 21, 2025 12:00am Complies with drug therapyStart: 40-53-0240goms 1 tablet by mouth twice daily at bedtimebaclofen (Lioresal) 10 MG tablet Indications: Neck pain TAKE 1 TABLET BY MOUTH TWICE DAILY (IN THE MORNING AND BEFORE BEDTIME) 60 tablet 5 09/20/2024 ActiveStart: 56-80-1374ebvs 1 tablet by mouth twice daily at bedtimebaclofen (Lioresal) 10 MG tablet Indications: Neck pain TAKE 1 TABLET BY MOUTH TWICE DAILY (IN THE MORNING AND BEFORE BEDTIME) 60 tablet 5 09/20/2024 ActiveStart: 07-13-2024 End: 03-91-3695rrdr 1 tablet by mouth twice daily at bedtimebaclofen (Lioresal) 10 MG tablet Indications: Neck pain TAKE 1 TABLET BY MOUTH TWICE DAILY (IN THE M ORNING AND BEFORE BEDTIME) 60 tablet 07/13/2024 09/20/2024 Discontinued (Reorder)Start: 02-02-2024 End: 80-70-5528iaed 0.5-1 tablets by mouth twice daily as needed for muscle spasmsbaclofen (Lioresal) 10 MG tablet Indications: Neck pain TAKE 1/2 TO 1 (ONE-HALF TO ONE) TABLET BY MOUTH TWICE DAILY NEEDED FOR MUSCLE SPASM 60 tablet 2 02/02/2024 05/02/2024 ActiveStart: 87-29-0762lvhd 0.5-1 tablets by mouth twice dailybaclofen (Lioresal) 10 MG tablet TAKE 1/2 TO 1 (ONE-HALF TO ONE) TABLET BY MOUTH TWICE DAILY 0 03/23/2023 ActiveStart: 85-75-7103eqpg 0.5-1 tablets by mouth once dailybaclofen 10 mg Tab See Instructions, take 1/2 - 1 tab po during the day, Refills(s) 0 Start Date: 10/18/21 Status: Ordered bifidobacterium infantis 4 mg oral capsule (4 sources)Start: 64-35-1981qlxq 1 capsule by mouth once dailyAlign 4 mg oral capsule 4 mg = 1 cap(s), Oral, Daily, Take after completing the Antibiotics course,# 28 cap(s), Refills(s) 0, Pharmacy: [id number], 168, cm, 07/11/20 8:27:00 EST, Height/Length Dosing, 64.1, kg, 07/11/20 8:27:00 EST, Weight Dosing Start Date: 07/11/20 Status: Orderedcetirizine hydrochloride 10 mg oral tablet (4 sources)Histamine-1 Receptor AntagonistStart: 75-38-8455dnvm 1 tablet by mouth once dailycetirizine 10 mg Tab 10 mg = 1 tab(s), Oral, Daily, # 90 tab(s), Refills(s) 1, Pharmacy: [id number], 168, cm, 07/11/20 8:27:00 EST, Height/Length Dosing, 64.1, kg, 07/11/20 8:27:00 EST, Weight Dosing Start Date: 11/23/20 Status: Ordered1 ml erenumab-aooe 140 mg/ml auto-injector (20 sources)Start: 11-30-2019 End: 91-08-8159vgdsjsei (Aimovig) 140 MG/ML injection Indications: Migraine without aura and without status migrainosus, not intractable (CMS/HCC) INJECT 1 SYRINGE SUBCUTANEOUSLY ONCE EVERY MONTH 1.12 mL 5 04/06/2024 ActiveStart: 74-84-5621bxixbf 140 mg by subcutaneous injection every monthAimovig SureClick 70 mg/mL subcutaneous solution 140 mg, SubCutaneous, qMonth, Refills(s) 0 Start Date: 02/01/19 Status: OrderedErenumab-aooe (AIMOVIG) 140 MG/ML SOAJ (1 source)Erenumab-aooe (AIMOVIG) 140 MG/ML SOAJ every 30 days 0 Activeestradiol 2 mg oral tablet (20 sources)EstrogenStart: 06-21-2024 End: 81-35-6844bxba 1 tablet by mouth once dailyEstradiol 2 mg tablet Active 2 MG PO Daily March 21, 2025 12:00am Complies with drug therapyStart: 05-07-2023 End: 82-27-0401ncgq 1 tablet by mouth in the morningestradiol (Estrace) 2 MG tablet Indications: Menopausal symptoms Take 1 tablet (2 mg) by mouth in the morning. 30 tablet 11 05/07/2023 05/06/2024 ActiveStart: 06-19-2018 End: 81-63-0574imnt 1 tablet by mouth once daily at bedtimeEstradiol 1 mg Tablet Discontinued 1 MG PO Daily at bedtime November 30, 2019 12:00am March 21, 025 8:38amfluticasone propionate 0.05 mg/actuat metered dose nasal spray (3 sources)CorticosteroidStart: 06-20-2023 End: 58-02-6055oyjh 2 spray(s) nasal route once dailyFlonase 0.05 mg/inh [place] 2 spray(s), Nasal, Daily for 7 day(s), 16 gm, Refill(s) 0, each nostril, [id number], 168, cm, 06/20/23 18:45:00 EST, Height/Length Dosing, 58.4, kg, 06/20/23 18:45:00 EST, Weight Dosing Start Date: 06/20/23 Stop Date: 06/27/23 Status: Orderedgabapentin 600 mg oral tablet (20 sources)Anti-epileptic AgentStart: 84-53-0092ktmf 1 tablet by mouth once dailyGabapentin 600 mg tablet Active 600 MG PO Daily March 21, 2025 12:00am Complies with drug therapyStart: 83-96-3746sizu 1 capsule by mouth once dailygabapentin 100 mg Cap 100 mg = 1 cap(s), Oral, Daily, Refills(s) 0 Start Date: 10/07/23 Status: OrderedStart: 17-07-8250lcvpqetgvt 600 mg Tab Refills(s) 0 Start Date: 11/08/21 Status: OrderedStart: 09-04-2017 End: 70-55-4637aikh 1 capsule by mouth three times dailyGabapentin 300 mg Capsule Discontinued 300 MG PO Three times daily September 04, 2017 12:00am March 21, 2025 8:38amGabapentin 600 mg TAKE 2 TABLETS THREE TIMES A DAY Activetake 4 capsules by mouth three times dailygabapentin (NEURONTIN) 300 MG capsule Take 1,200 mg by mouth 3 times daily. 0 ActivelamoTRIgine 25 mg oral tablet (7 sources)Mood Stabilizer, Anti-epileptic AgentStart: 11-30-2019 End: 39-32-9367dwgg 1 tablet by mouth once dailylamoTRIgine (LAMICTAL) 25 MG tablet Take 25 mg by mouth daily 0 11/30/2019 ActiveStart: 11-30-2019 End: 58-04-2357gkli 1 tablet by mouth twice dailyLamotrigine (Lamictal) 25 mg Tablet Discontinued 25 MG PO Twice daily November 30, 2019 12:00am March 21, 2025 8:38amloratadine 10 mg oral tablet (4 sources)Start: 17-17-8113pfeh 1 tablet by mouth once dailyloratadine 10 mg Tab 10 mg = 1 tab(s), Oral, Daily, # 90 tab(s), Refills(s) 1, Pharmacy: [facility], 168, cm, 02/23/20 10:40:00 EDT, Height/Length Dosing, 65, kg, 02/23/20 10:40:00EDT, Weight Dosing Start Date: 02/23/20 Status: Ordered Start: 11-30-2019 End: 71-94-7025matn 1 capsule by mouth once dailyLoratadine 10 mg Capsule Discontinued 10 MG PO Daily November 30, 2019 12:00am March 21, 2025 8:38am methIMAzole 10 mg oral tablet (18 sources)Thyroid Hormone Synthesis InhibitorStart: 84-31-0916xgipHIFqutg (Tapazole) 10 MG tablet Take 10 mg by mouth 08/01/2023 Activeomeprazole 20 mg delayed release oral capsule (3 sources)Proton Pump Inhibitortake 1 capsule by mouth every twenty-four hours Omeprazole 20 MG 1 capsule Orally Once a day Activeondansetron 4 mg oral tablet (1 source)Serotonin-3 Receptor AntagonistStart: 74-88-4123kwnb 1 tablet by mouth every six hours as needed for nauseaondansetron 4 mg Tab 4 mg = 1 tab(s), Oral, q6hr, PRN Nausea/Vomiting, # 10 tab(s), Refills(s) 0, Pharmacy: [id number], 168, cm, 07/10/20 13:24:00 EST, Height/Length Dosing, 62.1, kg, 07/10/20 13:24:00 EST, Weight Dosing Start Date: 07/10/20 Status: Ordered OXcarbazepine 300 mg oral tablet (20 sources)Anti-epileptic AgentStart: 98-64-4382jyzo 0.5 tablet by mouth once daily in the morning, then take 1-2 tablets by mouth once daily at bedtime Oxcarbazepine (Trileptal) 300 mg tablet Active 0 PO .COMPLEX March 21, 2025 12:00am 1/2 tablet qam and 1-2 tablets qhs orally; Complies with drug therapyStart: 37-62-9148jeky 0.5 tablet by mouth in the morning, then take 1-2 tablets by mouth at bedtimeOXcarbazepine (Trileptal) 300 MG tablet Indications: Paresthesias TAKE 1/2 (ONE-HALF) TABLET BY MOUTH IN THE MORNING AND 1 TO 2 TABLETS AT BEDTIME 75 tablet 5 09/20/2024 ActiveStart: 64-19-1567ogme 0.5 tablet by mouth in the morning, then take 1-2 tablets by mouth at bedtimeOXcarbazepine (Trileptal) 300 MG tablet Indications: Paresthesias TAKE 1/2 (ONE-HALF) TABLET BY MOUTH IN THE MORNING AND 1 TO 2 TABLETS AT BEDTIME 75 tablet 5 09/20/2024 ActiveStart: 07-05-2024 End: 15-94-1027gvlp 0.5 tablet by mouth in the morning, then take 1-2 tablets by mouth at bedtimeOXcarbazepine (Trileptal) 300 MG tablet Indications: Paresthesias TAKE 1/2 (ONE-HALF) TABLET BY MOUTH IN THE MORNING AND 1 TO 2 TABLETS AT BEDTIME 75 tablet 07/05/2024 09/20/2024 Discontinued (Reorder)Start: 44-83-4109blwn 0.5 tablet by mouth in the morning, then take 1-2 tablets by mouth at bedtimeOXcarbazepine (Trileptal) 300 MG tablet Indications: Paresthesias TAKE 1/2 (ONE-HALF) TABLET BY MOUTH IN THE MORNING AND 1 TO 2 TABLETS AT BEDTIME 75 tablet 05/17/2024 ActiveStart: 66-35-1141qshe 0.5 tablet by mouth in the morning, then take 1-2 tablets by mouth at bedtimeOXcarbazepine (Trileptal) 300 MG tablet TAKE 1/2 (ONE-HALF) TABLET BY MOUTH IN THE MORNING AND 1 TO2 TABLETS AT BEDTIME 03/10/2023 ActiveStart: 27-57-4822dhvw 1-2 tablets by mouth once daily at bedtimeTrileptal 300 mg Tab See Instructions, take 1-2 tabs po qhs, Refills(s) 0 Start Date: 11/24/20 Status: OrderedStart: 69-47-1547cqfa 2 tablets by mouth every twelve hoursTrileptal 300 MG 2 tablet Orally Twice a day for 14 day(s) Feb, Activetake 300 mg by mouth twice dailyOXcarbazepine (TRILEPTAL PO) Take 300 mg by mouth 2 times daily 0 Activeoxybutynin chloride 5 mg oral tablet (20 sources)Cholinergic Muscarinic AntagonistStart: 75-49-6629idax 1 tablet by mouth three times daily as neededoxybutynin 5 mg Tab 5 mg = 1 tab(s), Oral, TID, PRN for urinary discomfort, for bladder symptoms, #30 tab(s), Refills(s) 0, Pharmacy: [id number], 168, cm, 10/07/23 10:32:00 EDT, Height/Length Dosing, 61, kg, 10/07/23 10:32:00 EDT, Weight Dosing Start Date: 10/07/23 Status: OrderedStart: 23-37-2240gkta 1 tablet by mouth twice daily as neededoxybutynin 5 mg Tab 5 mg = 1 tab(s), Oral, BID, PRN for urinary discomfort, # 60 tab(s), Refills(s)2, Pharmacy: [id number], 168, cm, 05/26/20 16:32:00 EST, Height/Length Dosing, 64, kg, 05/26/20 16:32:00 EST, Weight Dosing Start Date: 05/26/20 Status: Ordered End: 51-41-2987uqpr 1 tablet by mouth every twenty-four hours in the morning oxybutynin XL (Ditropan-XL) 5 MG 24 hr tablet Take 5 mg by mouth in the morning. 08/02/2024 Discontinued (Ineffective)take 1 tablet by mouth once daily oxybutynin (DITROPAN-XL) 5 MG extended release tablet Take 5 mg by mouth daily 0 Activepantoprazole 40 mg delayed release oral tablet (4 sources)Proton Pump InhibitorStart: 71-65-0179ttiq 1 tablet by mouth once daily 30 minutes before breakfastProtonix 40 mg Tab-EC 40 mg = 1 tab(s), Oral, Daily, Take 30 minutes before breakfast, # 30 tab(s),Refills(s) 5, Pharmacy: [id number], 168, cm, 07/11/20 8:27:00 EST, Height/Length Dosing,64.1, kg, 07/11/20 8:27:00 EST, Weight Dosing Start Date: 02/06/21 Status: Ordered End: 41-56-3681vkop 1 tablet by mouth once dailypantoprazole (ProtoNix) 40 MG packet Delayed release. Take 1 tablet by mouth once daily 30 minutes before breakfast. 03/01/2024 Discontinued (Therapy completed)predniSONE 20 mg oral tablet (7 sources)Start: 07-31-2023 End: 72-41-7686mcmp 1 tablet by mouth in the morningpredniSONE (Deltasone) 20 MG tablet Take 20 mg by mouth in the morning. X 14 days. 07/31/2023 03/01/2024 Discontinued (Therapy completed)Start: 12-08-2019 End: 39-31-1230Wwdaieocns 10 mg tablets,dose pack Discontinued 1 dose pk PO per package directions December 08, 2019 12:00am March 21, 2025 8:38am take 4 tabs for 3 days then take 3 tabs for 3 days then take2 tabs for 3 days then take 1 tab for 3 daysStart: 65-45-1504Jpfmprvxmr Active 1 dose pk PO per package directions December 07, 2019 11:00pm take 4 tabs for 3 days then take 3 tabs for 3 days then take 2 tabs for 3 days then take 1 tab for 3 dayspregabalin 150 mg oral capsule (4 sources)Start: 11-24-2020 End: 25-16-0937wyhg 1 capsule by mouth three times dailyLyrica 150 mg Cap 150 mg = 1 cap(s), Oral, TID, # 60 cap(s), Refills(s) 0 Start Date: 11/24/20 Status: Orderedpropranolol hydrochloride 10 mg oral tablet (2 sources)beta-Adrenergic BlockerStart: 95-67-7900lksv 1 tablet by mouth once propranolol 10 mg Tab 10 mg = 1 tab(s), Oral, Once, # 1 tab(s), Refills(s) 0, Pharmacy: [id number], 168, cm, 07/24/23 13:48:00 EST, Height/Length Dosing, 61, kg, 07/24/23 13:48:00 EST, Weight Dosing Start Date: 07/24/23 Status: OrderedProtonix 40 mg Tab-EC (3 sources)Start: 88-37-0334ybwd 1 tablet by mouth once daily 30 minutes before breakfastProtonix 40 mg Tab-EC 40 mg = 1 tab(s), Oral, Daily, Take 30 minutes before breakfast, # 30 tab(s),Refills(s) 5, Pharmacy: [id number], 168, cm, 07/11/20 8:27:00 EST, Height/Length Dosing,64.1, kg, 07/11/20 8:27:00 EST, Weight Dosing Start Date: 02/06/21 Status: Orderedrimegepant 75 mg disintegrating oral tablet (20 sources)Start: 59-37-8818iutb 1 tablet by mouth every other weekRimegepant (Nurtec Odt) 75 mg tablet,disintegrating Active 75 MG PO .COMPLEX March 21, 2025 12:00am 75 mg orally at the onset of a migraine. do not repeat. no more than 2 days/week; Complies with drug therapyStart: 04-06-2024 End: 36-66-9183sazh 1 tablet by mouth once daily as needed, then take 1 tablet by mouth every other week as neededRimegepant Sulfate (Nurtec) 75 MG tablet dispersible Indications: Migraine without aura and withoutstatus migrainosus, not intractable (CMS/HCC) Take 1 tablet by mouth Daily as needed (1 tablet at th e onset of a migraine. do not repeat. no more than 2 days/week) 8 tablet 5 04/06/2024 ActiveStart: 69-25-7815ipux 1 tablet by mouth every week as needed Nurtec ODT 75 mg oral tablet, disintegrating TAKE ONE TABLET BY MOUTH NEEDED FOR MIGRAINE. MAX OF TWO DAYS PER WEEK. Start Date: 10/07/23 Status: Ordered Start: 69-19-4877ygqd 1 tablet under the tongue every other dayNurtec ODT 75 mg oral tablet, disintegrating 75 mg = 1 tab(s), SubLingual, Every other day, Refills(s) 0 Start Date: 01/25/21 Status: Orderedtake 1 tablet by mouth every twenty-four hours as neededNurtec 75 MG tablet dispersible Take 1 tablet by mouth Daily as needed (Migraine) Max 2 days a weekActiverizatriptan 10 mg oral tablet (3 sources)Serotonin-1b and Serotonin-1d Receptor Agonist End: 07-58-5785trcuflehscq (Maxalt) 10 MG tablet Take 1 tablet by mouth 1 (one) time if needed (Onset of migraine)And may repeat with 1 po after 2 hours prn, max 2 per day, 2 days per wk 03/01/2024 Discontinued (Therapy completed) SUMAtriptan 100 mg oral tablet (4 sources)Serotonin-1b and Serotonin-1d Receptor AgonistStart: 11-24-2020 Imitrex 100 mg Tab See Instructions, 1 tab(s) at onset of migraine, may repeat in 2hrs, no more than 2 times a day and 2 times a wk prn migraine, Refills(s) 0 Start Date: 11/24/20 Status: OrderedtiZANidine 4 mg oral tablet (20 sources)Central alpha-2 Adrenergic AgonistStart: 10-99-5441axtg 1 tablet by mouth once daily at bedtimeTizanidine 4 mg tablet Active 4 MG PO Daily at bedtime March 21, 2025 12:00am Complies with drug therapyStart: 09-20-2024 take 1 tablet by mouth at bedtimetiZANidine (Zanaflex) 4 MG tablet Indications: Neck pain Take 1 tablet (4 mg) by mouth at bedtime 30 tablet 5 09/20/2024 Active Start: 10-45-9341vgyc 1 tablet by mouth at bedtimetiZANidine (Zanaflex) 4 MG tablet Indications: Neck pain Take 1 tablet (4 mg) by mouth at bedtime 30 tablet 5 09/20/2024 ActiveStart: 06-14-2024 End: 80-47-0265awok 1 tablet by mouth at bedtimetiZANidine (Zanaflex) 4 MG tablet Indications: Neck pain Take 1 tablet (4 mg) by mouth at bedtime 30 tablet 2 06/14/2024 09/20/2024 Discontinued (Reorder)Start: 15-65-0969tvju 1 tablet by mouth at bedtimetiZANidine (Zanaflex) 4 MG tablet Indications: Neck pain Take 1 tablet (4 mg) by mouth at bedtime 30 tablet 2 03/02/2024 ActiveStart: 86-15-3266urkh 1 tablet by mouth once daily at bedtimetiZANidine (Zanaflex) 4 MG tablet Indications: Neck pain TAKE 1/2 TO 1 (ONE-HALF TO ONE) TABLET BY MOUTH ONCE DAILY AT BEDTIME 30 tablet 2 11/18/2023 ActiveStart: 73-72-7168pktu 1 tablet by mouth once daily at bedtimetiZANidine (Zanaflex) 4 MG tablet TAKE 1/2 TO 1 (ONE-HALF TO ONE) TABLET BY MOUTH ONCE DAILY AT BEDTIME 0 03/24/2023 Active Start: 98-63-5974gddr 0.5-1 tablets by mouth once daily at bedtimeZanaflex 4 mg oral capsule See Instructions, take 1/2 - 1 tab po qhs, Refills(s) 0 Start Date: 10/18/21 Status: OrderedtraMADol hydrochloride 50 mg oral tablet (20 sources)Opioid AgonistStart: 45-99-7996kpiq 1 tablet by mouth twice daily as neededTramadol 50 mg tablet Active 50 MG PO Twice daily as needed March 21, 2025 12:00am Complies with drug therapyStart: 29-83-9357yzde 1 tablet by mouth three times daily as neededtraMADol (Ultram) 50 MG tablet TAKE 1 TABLET BY MOUTH THREE TIMES DAILY NEEDED. MUST LAST 30 DAYS. 03/26/2023 ActiveStart: 11-30-2019 End: 34-06-2680dnfv 1 tablet by mouth three times daily as needed for pain Tramadol 50 mg tablet Discontinued 50 MG PO Three times daily as needed for Pain November 30, 2019 12:00am December 08, 2019 2:35pmStart: 09-04-2017 End: 83-30-7405jsco 1 tablet by mouth once daily in the morningTramadol 50 mg Tablet Discontinued 50 MG PO Every morning September 04, 2017 12:00am September 12, 20178:12amvalACYclovir 1000 mg oral tablet (15 sources)Herpesvirus Nucleoside Analog DNA Polymerase Inhibitor, Herpes Simplex Virus Nucleoside Analog DNA Polymerase Inhibitor, Herpes Zoster Virus Nucleoside Analog DNA Polymerase InhibitorStart: 12-02-2022 End: 46-80-5438pfwNQRxmikpg (Valtrex) 1 g tablet Take 1,000 mg by mouth in the morning and 1,000 mg before bedtime. 12/02/2022 03/01/2024 Discontinued (Therapy completed)Start: 69-68-8923kodt 1 tablet by mouth twice dailyvalacyclovir 1 g Tab 1 gram = 1 tab(s), Oral, BID, # 60 tab(s), Refills(s) 2, Pharmacy: [id number], 168, cm, 11/08/21 9:50:00 EDT, Height/Length Dosing, 65.4, kg, 11/08/21 9:50:00 EDT, Weight Dosing Start Date: 01/18/22 Status: OrderedStart: 11-23-2020 End: 97-91-3827wnej 1 tablet by mouth twice dailyvalacyclovir 1 g Tab 1 gram = 1 tab(s), Oral, BID, # 60 tab(s), Refills(s) 2, Pharmacy: [facility], 168, cm, 07/11/20 8:27:00 EST, Height/Length Dosing, 64.1, kg, 07/11/20 8:27:00 EST, Weight Dosing Start Date: 11/23/20 Status: OrderedStart: 49-25-9143kims 1 tablet by mouth twice dailyvalacyclovir 1 g Tab 1 gram = 1 tab(s), Oral, BID, # 60 tab(s), Refills(s) 2, Pharmacy: [facility], 168, cm, 07/11/20 8:27:00 EST, Height/Length Dosing, 64.1, kg, 07/11/20 8:27:00 EST, Weight Dosing Start Date: 11/23/20 Status: Ordered Completed/Discontinued Medications MedicationDrug Class(es)DatesSig (Normalized)Sig (Original)acetaminophen 325 mg / HYDROcodone bitartrate 5 mg oral tablet (4 sources)Opioid AgonistStart: 09-12-2017 End: 03-47-5231ylct 1 tablet by mouth every four to six hours as needed for pain Hydrocodone-Acetaminophen ([place]) 5-325 mg tablet Discontinued 1 TAB PO EVERY 4- 6 HOURS as needed for pain September 12, 2017 November 30, 2019 10:37amStart: 09-04-2017 End: 20-08-0165wxcp 1 tablet by mouth once daily at bedtimeHydrocodone- Acetaminophen ([place]) 5-325 mg Tablet Discontinued 1 TAB PO Daily at bedtime September 04, 2017 12:00am September 12, 2017 8:11amcephalexin 500 mg oral capsule (2 sources)Cephalosporin AntibacterialStart: 12-08-2019 End: 49-39-1545kihg 1 capsule by mouth every eight hoursCephalexin (Keflex) 500 mg capsule Discontinued 500 MG PO Q8H 15 December 08, 2019 12:00am March 21, 2025 8:38amcyclobenzaprine hydrochloride 10 mg oral tablet (6 sources)Muscle RelaxantStart: 09-04-2017 End: 96-61-3578qqap 1 tablet by mouth three times daily as needed for muscle spasmsCyclobenzaprine 10 mg tablet Discontinued 10 MG PO Three times daily as needed for back spasms 50 December 08, 2019 12:00am March 21, 2025 8:38am docusate sodium 100 mg oral capsule (2 sources)Start: 09-12-2017 End: 91-97-8254fepj 1 capsule by mouth twice daily as needed for constipation Docusate Sodium (Colace) 100 mg capsule Discontinued 100 MG PO Twice daily as needed for constipation 60 September 12, 2017 8:12am November 30, 2019 10:37am Norethindrone-E.Estradiol-Iron (2 sources)EstrogenStart: 09-04-2017 End: 35-25-7183Pshsrdnbcctlq-E.Estradiol-Iron (Novemberl Fe 07/12 ()) 1 mg-20 mcg (21)/75 mg (7) tablet Discontinued 1 TAB PO Daily September 04, 2017 12:00am September 12, 2017 8:11amStart: 09-04-2017 End: 98-31-5383Deoykcciwmvfs-E.Estradiol-Iron (Novemberl Fe 07/12 ()) 1 mg-20 mcg (21)/75 mg (7) tablet Discontinued 1 TAB PO Daily September 03, 2017 11:00pm September 12, 2017 7:11amibuprofen 800 mg oral tablet (6 sources)Nonsteroidal Anti-inflammatory DrugStart: 11-30-2019 End: 43-47-6881Joxtqxjpv 800 mg tablet Discontinued November 30, 2019 12:00am November 30, 2019 11:39amStart: 09-12-2017 End: 11-25-0407xiqo 1 tablet by mouth every six hours as needed for pain Ibuprofen 600 mg tablet Discontinued 600 MG PO Q6H as needed for pain 30 September 12, 2017 12:00am November 30, 2019 10:38amStart: 09-04-2017 End: 74-47-6321klkf 1 tablet by mouth twice dailyIbuprofen 800 mg Tablet Discontinued 800 MG PO Twice daily September 04, 2017 12:00am November 30, 2019 1 0:38amMultivitamin (Multiple Vitamins) Tablet (2 sources)Start: 09-04-2017 End: 02-62-1913kgdm 1 tablet by mouth once dailyMultivitamin (Multiple Vitamins) Tablet Discontinued 1 TAB PO Daily September 04, 2017 12:00am November 30, 2019 10:38am Uses a chewable formStart: 09-04-2017 End: 58-29-2021otey 1 tablet by mouth once dailyMultivitamin (Multiple Vitamins) Tablet Discontinued 1 TAB PO Daily September 03, 2017 11:00pm November 30, 2019 9:38am Uses a chewable formoxyCODONE hydrochloride 5 mg oral capsule (2 sources)Opioid AgonistStart: 12-08-2019 End: 08-31-6415cgsn 5-10 mg by mouth every six hours as needed for painOxycodone 5 mg capsule Discontinued 5 - 10 MG PO Q6H as needed for pain 60 8 December 08, 2019 March 21, 2025 8:38am Problems Active Problems Problem ClassificationProblemDateDocumented DateEpisodic/ChronicCardiac dysrhythmias (9 sources)Palpitations; Translations: [Palpitations]Onset: 43-40-2595Cnwdilbe Esophageal disorders (20 sources)Gastroesophageal reflux disease; Translations: [Gastroesophageal reflux disease without esophagitis]Onset: 377284-17-8803WocwnjnYdzojdcq; including migraine (20 sources)Migraine; Translations: [Migraine variants]Onset: 06-23-2016 84-42-3379UpoenafDlxbb valve disorders (9 sources)Heart murmur; Translations: [Cardiac murmur, unspecified]Onset: 69-61-6159RnxeaozqWqxhdkfooi infection (18 sources)Bacterial overgrowth bisyjgzf81-83-5710HrfmsitvLgvamowquk disorders (3 sources)Menopausal symptom; Translations: [Menopausal and female climacteric states]59-92-3828WoxyevtVtbmejwfeirtv mental health disorders (18 sources)Chronic ibbcqlxi85-30-6757BevvtojHqrcux and vomiting (2 sources)Oxjdmb11-18-3902PzrvgotcYdrhsgsudsjg breast conditions (3 sources)Fibrocystic disease of breast; Translations: [Diffuse cystic mastopathy of right breast]ChronicNonspecific chest pain (19 sources)Chest wall pain; Translations: [Atypical chest pain]07-06-2019 EpisodicOther acquired deformities (3 sources)Spondylolisthesis L5/S1 level; Translations: [Spondylolisthesis, lumbosacral region]EpisodicOther acquired deformities (5 sources)Lumbar spondylolisthesis; Translations: [Spondylolisthesis, lumbar region]81-50-4530DgmosasuVuvruxw on above:Problem List clean-up per request of Phys. EHR CmteOther diseases of bladder and urethra (19 sources)Detrusor overactivity; Translations: [Overactive bladder]Onset: 689716-35-6075SbnseicZgkql female genital disorders (3 sources)Dyspareunia due to non-psychogenic cause in the female; Translations: [Other specified dyspareunia]ChronicOther gastrointestinal disorders (2 sources)Abdominal -39-8367DbxrjulmNhotv gastrointestinal disorders (20 sources)Alteration in bowel fwkwtqfnisk55-11-1569IixicczvZowac gastrointestinal disorders (18 sources)Chronic constipation with fpkttvio12-15-1285KrdtaixaMbojh gastrointestinal disorders (2 sources)Przewnhi54-76-0459BqyrrdfyErdni gastrointestinal disorders (18 sources)Fecal soiling co-occurrent and due to fecal mdawghfposag36-74-2721 EpisodicOther gastrointestinal disorders (2 sources)Incontinence of -13-6951LvenhquyEsugr gastrointestinal disorders (1 source)Dysphagia; Translations: [Dysphagia, unspecified]Onset: 07-18-2023 EpisodicOther gastrointestinal disorders (10 sources)Swallowing -23-5560UrcxlwfrMmecm nervous system disorders (20 sources)Chronic pain; Translations: [Other chronic pain]55-67-7810Yemglrv Other nervous system disorders (4 sources)Other specified mononeuropathies of right lower limb; Translations: [OTH SPEC MONONEUROPATH RT LOW LIMB]Onset: 67-78-2580BuwsuzkBlbaa nervous system disorders (5 sources)Other chronic pain; Translations: [OTHER CHRONIC PAIN]Onset: 85-23-1264WremhofDcvxp nervous system disorders (18 sources)Sensory disorder of smell and/or -49-0845DgwduhrtBxxqk nervous system disorders (20 sources)Paresthesia; Translations: [Paresthesia of skin]48-79-9415Ffxsysxv Other nutritional; endocrine; and metabolic disorders (18 sources)Intolerance to ffqectg64-10-4900CxkvvpgFbame screening for suspected conditions (not mental disorders or infectious disease) (20 sources)Thyroid function tests abnormal; Translations: [Abnormal results of thyroid function studies]Onset: 05-94-4035XdxqtgddIumwz skin disorders (7 sources)Foot sjgogg23-91-8312UbzacrduMpqfr skin disorders (4 sources)Eruption; Translations: [Rash and other nonspecific skin eruption] Onset: 44-05-7156HxggaaygRfzfx upper respiratory disease (13 sources)Allergic rhinitis; Translations: [Allergic rhinitis, unspecified] Onset: 75-32-9923XcmqdwpZwubv upper respiratory disease (20 sources)Chronic pharyngitis; Translations: [Chronic pharyngitis]Onset: 243266-99-4293VqsquobFdglm upper respiratory infections (20 sources)Acute frontal dvtkbmjoy38-76-1908VnxgfbntIsymmz media and related conditions (1 source)Acute secretory otitis media; Translations: [Other acute nonsuppurative otitis media, left ear]Onset: 68-96-9850WgbwrdxcRwtnmnnm of female genital organs (3 sources)Uterine prolapse; Translations: [Uterovaginal prolapse, unspecified] ChronicResidual codes; unclassified (3 sources)History of elective breast augmentation; Translations: [Breast implant status]ChronicResidual codes; unclassified (18 sources)Quctu11-82-6748QuptdhnnIecjotue codes; unclassified (3 sources)History of hysterectomy for benign disease; Translations: [Acquired absence of both cervix and uterus]EpisodicResidual codes; unclassified (3 sources)Family history of breast cancer; Translations: [Family history of malignant neoplasm of breast]EpisodicResidual codes; unclassified (3 sources)Family history of malignant neoplasm of gastrointestinal tract; Translations: [Family history of malignant neoplasm of digestive organs]Episodic Residual codes; unclassified (3 sources)History of lumbar discectomy; Translations: [Other specified postprocedural states]EpisodicResidual codes; unclassified (1 source)Other specified postprocedural states; Translations: [OTH SPECIFIED POSTPROCEDURAL STATES]Onset: 77-95-8953LimgkhzqJzasybxs codes; unclassified (5 sources)Patient encounter status; Translations: [Other specified health status]Onset: 35-88-4615DildbszoBortlmkr codes; unclassified (3 sources)Body mass index 20-24 - normal; Translations: [Body mass index (BMI) 21.0-21.9, adult]Onset: 33-82-0849VlwfjbtsMyjhsdqbmqk; intervertebral disc disorders; other back problems (20 sources)Displacement of lumbar intervertebral disc without myelopathy; Translations: [Degeneration of lumbosacral intervertebral disc]Onset: 07-16-2018 73-88-3269XvhenyhLeumopqkasx; intervertebral disc disorders; other back problems (20 sources)Lumbar disc prolapse with radiculopathy; Translations: [Spinal stenosis of lumbar region]Onset: 07-30-2018 Resolved: 872632-35-5487NmtgzazwBskwwrj disorders (20 sources)Thyrotoxicosis, unspecified without thyrotoxic crisis or storm; Translations: [Hyperthyroidism]Onset: 89-69-1048VidglyjKppvfpsfzmln (14 sources)Body mass index 20-24 - -86-5866Fjmtlbjyqgru (4 sources)LOW BACK PAIN, UNSPECIFIED; Translations: [LOW BACK PAIN, UNSPECIFIED]Onset: 21-70-6491Ktadgvtrjgdc (6 sources)Patient encounter kuivfp75-20-5070Brcttaq tract infections (18 sources)Urinary tract infectious nbdgujf39-70-4959KgzlsojzBfhwc infection (18 sources)Herpes -54-0179Sedkgjox Past or Other Problems Problem ClassificationProblemDateDocumented DateEpisodic/ChronicBlindness and vision defects (18 sources)Diplopia; Translations: [Diplopia]Onset: EpisodicMalaise and fatigue (18 sources)Asthenia; Translations: [Weakness]Onset: EpisodicOther acquired deformities (2 sources)Spondylolisthesis, lumbosacral region; Translations: [Spondylolisthesis at L5-S1 level M43.17]Onset: 04-17-2021 Resolved: 26-99-8254LdcztocvVrihm connective tissue disease (20 sources)Muscle pain; Translations: [Myalgia, unspecified site]Onset: 881352-33-2672BctvabgeSaess connective tissue disease (18 sources)Other symptoms and signs involving the musculoskeletal system; Translations: [Other musculoskeletalsymptoms referable to limbs]Onset: 228818-46-1784CuhposadIunkx nervous system disorders (18 sources)Paresthesia of right upper limb; Translations: [Paresthesia of skin] Onset: 571952-07-6638DwibkmutXiozx skin disorders (20 sources)Mass of neck; Translations: [Localized swelling, mass and lump, neck]Onset: 270896-53-7854WnceibisDgpxmpudhzke fracture (1 source)Pathological fracture, other site, initial encounter for fracture; Translations: [PATH FX OTH SITE INITIAL ENCOUNTER]Onset: 33-20-0034Ygrymafj Unclassified (1 source)Exposure to 2019 novel coronavirus; Translations: [Contact with and (suspected) exposure to COVID19]Unclassified (18 sources)None (qualifier value)81-21-6053Angolsbnvtbj (20 sources)PregnancyOnset: 09-23-2004 Resolved: 602690-59-0285Kxkwlqk on above:piUnclassified (1 source)LOW BACK PAIN, UNSPECIFIED; Translations: [LOW BACK PAIN, UNSPECIFIED] Onset: 06-11-2022 Results Test NameValueInterpretationReference RangeFacilityT3 Freeon 73-57-0762Puth T3 [Mass/Vol]2.3 pg/mLInvalid Interpretation Code2.0-4.4FSelect Medical Specialty Hospital - [facility] Comment on above:Result Comment: Performed at: [facility] [address] [id number] PhD Mahnaz ConklinPerformed By: #### [id number] #### [facility] [address] [place], [place] [address]KDLHOESKDFetdeze By: SYSTEM SYSTEM on 66-08-6230Hnlf T4 [Mass/Vol]0.72 ng/dLNormal0.58 - 1.64 ng/dLRemisol ChemTSH Qn2.58 m[IU]/LNormal 0.34 - 5.60 mcIU/mLRemisol ChemFree T4on 48-38-5511Uuke T4 [Mass/Vol]0.72 ng/dL Normal0.58-1.64[facility] HospitalComment on above:Performed By: #### [id number] #### [facility] [address] [place], [place] [address]CHSjy 21-39-1867QFW Qn2.58 m[IU]/LNormal0.34-5.60[facility] HospitalComment on above:Performed By: #### [id number] #### [facility] [address] [place], [place] [address]BFF 2 Extremitieson 33-60-8046XLQ/ NCS BLE Mild right S1/S2 radiculopathy versus tibial motor neuropathy that is less likelyCommunity HealthNVC 9-10 Nerveson 25-71-8336CAV/ NCS BLE Mild right S1/S2 radiculopathy versus tibial motor neuropathy that is less likelyCommunity HealthUS THYROIDon 01-16-2024 Exam Date/Time: 01/13/2024 17:22 EDT Reason for [...] Landen Christian DO Transcribed by: YAMINI Technologist: Kimberlyn, Radiologist, - 01/16/2024 Exam Date/Time: 01/13/2024 17:22 EDT Reason for [...] Christian DO Transcribed by: YAMINI Technologist: KELSI Deng THYROIDOrdered By: Radiologist Radiology on 22-83-7912[employer] Work Phone: US Thyroidon 09-42-8631LD ThyroidExam Date/Time: 01/13/2024 17:22 EDT Reason for Exam: [...] Landen Christian DO Transcribed by: YAMINI Technologist: Karyn Gorge [facility] CenterUS THYROID on 95-83-1739Bkuuhpydq Study observation (narrative)JEANRamón Deng BIOPSY THYROIDon 51-30-2323Rzn [place] [address] Ultrasound Report Signed with Addenda Patient: JESSICA GRIFFITHS MR#: [id number] : 1985 Acct:[id number] Age/Sex: 37 / F ADM Date: 07/14/23 Loc: US Attending Dr: Marta Puente M.D. Ordering Physician: Marta Puente M.D. Date of Service: 07/14/23 Procedure(s): US biopsy thyroid Accession Number(s): [id number] cc: Physician,Non-Staff Diamond; Marta Puente M.D. ADDENDUM The [address] [address] Patient Name: JESSICA GRIFFITHS MRN: [id number] date: 1985 Sex: F Assigned Patient Location: US Current Patient Location: US Accession/Order Number: [id number] Exam Date: 07/14/2023 13:00 Report Date: 07/20/2023 07:09 At the request of: MARTA PUENTE Procedure: US biopsy thyroid Begin Addendum #1 COLLECTED DATE/TIME: 07/14/2023 Final Diagnosis Report for [facility] [place] Pathological Diagnosis: LEFT THYROID MID LOBE NODULE, FNA CYTOLOGY: -The ThinPrep smear showing a few tiny to small groups of follicular cells with uniform benign cytomorphology, compatible with sampling of the benign thyroid nodule, otherwise are also slightly limited for overall assessment due to the lack of adequate architectural arrangement for morphological assessment of these small obtained groups. 07/17/[address] Puente. 07/18/2023 verified with Elvie that report was present in office. [facility] will send for molecular testing. Original Report EXAMINATION: US biopsy thyroid HISTORY: Left thyroid nodule COMPARISON: No relevant comparison available. TECHNIQUE: After obtaining informed consent, an ultrasound-guided biopsy was performed in the usual sterile manner. FINDINGS: IMAGING: Ultrasound BIOPSY NEEDLE: 25-gauge, 2 and SPECIMEN TYPE, #, LOCATION: 4 fine-needle aspirates, 3. 8 cm left thyroid nodule MEDICATION: 3 cc 1% buffered lidocaine without epinephrine COMPLICATIONS: None. LABORATORY: Samples sent for pathology and genetic analysis OTHER: Negative. Addendum Dictated By: Giovanna Funes M.D. Addendum Signed By: 12/19/23 1057 Addendum Cosigned By: DD/ TD/TT: / ADDENDUM US/US biopsy thyroid IMPRESSION: Uneventful ultrasound guided biopsy. The patient was instructed to obtain follow up care and biopsy results from the referring physician. Electronically authenticated by: GIOVANNA FUNES Date: 07/20/2023 07:09 Addendum Dictated By: Giovanna Funes M.D. Addendum Signed By: 12/19/23 1057 Addendum Cosigned By: DD/ TD/TT: / The [address] [address] Patient Name: JESSICA GRIFFITHS MRN: [id number] date: 1985 Sex: F Assigned Patient Location: US Current Patient Location: US Accession/Order Number: [id number] Exam Date: 07/14/2023 13:00 Report Date: 07/14/2023 13:34 At the request of: MARTA PUENTE Procedure: US biopsy thyroid EXAMINATION: US biopsy thyroid HISTORY: Left thyroid nodule COMPARISON: No relevant comparison available. TECHNIQUE: After obtain (more content not included)...TBHRadiology, Radiologist, MD - 12/19/2023 [place] [address] Ultrasound Report Signed with Addenda Patient: JESSICA GRIFFITHS MR#: [id number] : 1985 Acct:[id number] Age/Sex: 37 / F ADM Date: 07/14/23 Loc: US Attending Dr: Marta Puente M.D. Ordering Physician: Marta Puente M.D. Date of Service: 07/14/23 Procedure(s): US biopsy thyroid Accession Number(s): [id number] cc: Physician,Non-Staff Diamond; Marta Puente M.D. ADDENDUM The [address] [address] Patient Name: JESSICA GRIFFITHS MRN: [id number] date: 1985 Sex: F Assigned Patient Location: US Current Patient Location: US Accession/Order Number: [id number] Exam Date: 07/14/2023 13:00 Report Date: 07/20/2023 07:09 At the request of: MARTA PUENTE Procedure: US biopsy thyroid Begin Addendum #1 COLLECTED DATE/TIME: 07/14/2023 Final Diagnosis Report for [facility] [place] Pathological Diagnosis: LEFT THYROID MID LOBE NODULE, FNA CYTOLOGY: -The ThinPrep smear showing a few tiny to small groups of follicular cells with uniform benign cytomorphology, compatible with sampling of the benign thyroid nodule, otherwise are also slightly limited for overall assessment due to the lack of adequate architectural arrangement for morphological assessment of these small obtained groups. 07/17/[address] Puente. 07/18/2023 verified with Elvie that report was present in office. [facility] will send for molecular testing. Original Report EXAMINATION: US biopsy thyroid HISTORY: Left thyroid nodule COMPARISON: No relevant comparison available. TECHNIQUE: After obtaining informed consent, an ultrasound-guided biopsy was performed in the usual sterile manner. FINDINGS: IMAGING: Ultrasound BIOPSY NEEDLE: 25-gauge, 2 and SPECIMEN TYPE, #, LOCATION: 4 fine-needle aspirates, 3. 8 cm left thyroid nodule MEDICATION: 3 cc 1% buffered lidocaine without epinephrine COMPLICATIONS: None. LABORATORY: Samples sent for pathology and genetic analysis OTHER: Negative. Addendum Dictated By: Giovanna Funes M.D. Addendum Signed By: Diamond> 12/19/231056 Addendum Cosigned By: DD/ TD/TT: / ADDENDUM US/US biopsy thyroid IMPRESSION: Uneventful ultrasound guided biopsy. The patient was instructed to obtain follow up care and biopsy results from the referring physician. Electronically authenticated by: GIOVANNA FUNES Date: 07/20/2023 07:09 Addendum Dictated By: Giovanna Funes M.D. Addendum Signed By: Diamond> 12/19/237 Addendum Cosigned By: DD/ TD/TT: / [address] [address] Patient Name: JESSICA GRIFFITHS MRN: [id number] date: 1985 Sex: F Assigned Patient Location: US Current Patient Location: US Accession/Order Number: [id number] Exam Date: 07/14/2023 13:00 Report Date: 07/14/2023 13:34 At the request of: MARTA PUENTE Procedure: US biopsy thyroid EXAMINATION: US biopsy thyroid HISTORY: Left thyroid nodule COMPARISON: No relevant comparison available. TECHNIQUE: After obtaining informed consent, an ultrasound-guided biopsy was performed in the usual sterile manner. FINDINGS: IMAGING: Ultrasound BIOPSY NEEDLE: 25-gauge, 2 and SPECIMEN TYPE, #, LOCATION: 4 fine-needle aspirates, 3.8 cm left thyroid nodule MEDICATION: 3 cc 1% buffered lidocaine without epinephrine COMPLICATIONS: None. LABORATORY: Samples sent for pathology and genetic analysis OTHER: Negative. US/US biopsy thyroid IMPRESSION: Uneventful ultrasound guided biopsy. The patient was instructed to obtain follow up care and biopsy results from the referring physician. Electronically authenticated by: GIOVANNA FUNES Date: 07/14/2023 13:34 Dictated By: Giovanna Funes M.D. Signed By: 07/14/231336 DD/ 33 TD/TT: Sort Operations Supervisor: GILBERT Fleep BIOPSY THYROIDOrdered By: Radiologist Radiology on 12-19-2023 [place] Work Phone: consenton 90-06-4972Rsnchcw [id number]#1.00TIFSumma Health Barberton [id number]#1.00[facility] Medicine Office/Clinic Noteon 41-77-4389Tumwnv Medicine Office/Clinic NoteChief Complaint rash HPI Staff Patient here today [...] with voice recognition artificial intelligence software, specifically [employer] ([place]), [employer]encil and or Tamago. Substitutions may have occurred due to the inherent limitations of voice recognition and artificial intelligence software. Documentation services were performed after patient or guardian consented to allow [employer] to record this visit. DEX loss prevention specialist Perlita Dominguez and provider reviewed before [...] year, 06/24/2023 Employment/School Employed, Work/School description: [employer] 02/01/2019 Home/Environment Lives with Children, Spouse., 02/01/2019 Substance Abuse - Denies Substance Abuse, 12/11/2012 Household substance abuse concerns: No., 06/24/2023 Tobacco - Denies Tobacco Use, 12/11/2012 Never (less than 100 in lifetime) Tobacco Use:. Never Smokeless Tobacco Use:. Household tobacco concerns: No., 11/12/2023 Family History Depression: Mother. Hepatitis C: Sister. Immunizations Vaccine Date Status Comments influenza viru (more content not included)...[facility] Comment on above:Result Comment: Electronically Signed By: Matt Bass MD\.br\Date and Time Signed: 11/12/23 14:07 EDT\.br\Electronically Co-Signed By: Tyrone Garcia\.br\Date and Time Co-Signed: 11/12/23 13:40 EDTT3 Freeon 32-16-6240Pwft T3 [Mass/Vol]2.9 pg/mLInvalid Interpretation Code2.0-4.4FSelect Medical Specialty Hospital - CincinnatiComment on above:Result Comment: Performed at: [facility] [id number] PhD Mahnaz ConklinPerformed By: #### [id number], [id number], [id number] ####[facility] [address] [place] [address] CHEMISTRYOrdered By: SYSTEM SYSTEM on 08-11-6956Gurv T4 [Mass/Vol]0.65 ng/dL Normal0.58 - 1.64 ng/dLRemisol ChemTSH Qn4.41 m[IU]/LNormal0.34 - 5.60 mcIU/mL Remisol ChemConsent for Treatmenton 72-79-5572Kshgatb for Treatment [id number]#1.00TIFFNormalTrumbull Memorial HospitalFree T4on 55-38-7560Ecpo T4 [Mass/Vol]0.65 ng/dLNormal0.58-1.64[facility] HospitalComment on above:Performed By: #### [id number], [id number], [id number] ####[facility] [address] [place], [place] [address]Evfjtcvyd Orderon 54-03-7709Mdpxamzrk Order [id number]#1.00TIFFNormalTrumbull Memorial HospitalTSHon 20-42-0309KKQ Qn4.41 m[IU]/LNormal0.34-5.60[facility] HospitalComment on above:Performed By: #### [id number], [id number], [id number] ####[facility] [address] [place], [place] [address]Lmpujlcjcd Visit Summaryon 46-77-9220Vxuktvxnwy Visit Summary JESSICA GRIFFITHS :1985 Visit Date:10/07/2023 [...] Appointments Follow Up with JUAN LUIS REES, Nancy, [facility] When: Only if needed Where: Medications What How Much When Instructions New oxybutynin (oxybutynin 5 mg Tab) 1 Tablets By Mouth 3 times a day as needed for for urinary discomfort for bladder symptoms Pickup at [facility] Unchanged baclofen (baclofen 10 mg Tab) See [...] 1/ 2 - 1 tab po qhs Contactprescribing physician if questions or concerns Unchanged tramadol (traMADOL 50 mg Tab) 1 Tablets By Mouth 3 times a day Contact prescribing physician if questions or concerns Pharmacy Information [facility]: [phone] [phone] Allergies Latex Tape (Rash) Problems Ongoing - [...] part of the urinary tract. The urinary tractincludes the kidneys, ureters, bladder, and urethra. These organs make, store, and get rid of urinein the body. An upper UTI affects the [...] ? You have a (more content not included)...[facility]At[facility] Office/Clinic Noteon 89-24-3510Qshnnt Medicine Office/Clinic NoteChief Complaint pt presents today c/o urinary urgency, [...] such as fever or chills. Over the pasttwo weeks, she has not utilized any gclx-jey-kykcxdk or old antibiotics, nor has she utilized [...] week. She is seeing Dr. Mcghee in [place] for her thyroid. She hasbeen trying to get disability for her back [...] Urnls Dip Stick Auto w/o Microscopy POC 70431 2. Thyroiditis, subacute (E06.1: Subacute thyroiditis) Continue following with Dr. Mcghee in [place] for management of the methimazole. 3. Lumbar [...] symptoms, # 30 tab(s), Refills(s) 0, Pharmacy: [facility], 168, cm, 10/07/23 10:32:00 EDT, Height/Length Dosing, 61, kg, 10/07/23 10:32:00 EDT, Weight Dosing Portions of this record may have been created with voice recognition artificial intelligence software, specifically [employer] ([place]), [employer] and or Tamago. Substitutions may have occurred due to the [...] ALIF - Anterior lumba (more content not included)...[facility] Comment on above:Result Comment: Electronically Signed By: JUAN LUIS REES, Nancy\.br\Date and Time Signed: 10/07/23 10:56 EDTPatient Educationon 35-31-2934Qxvlddy EducationObstetrics and Gynecology Urinary Tract Infection, Adult A urinary tract infection (UTI) is an infection of any part of the urinary tract. The urinary tractincludes the kidneys, ureters, bladder, and urethra. These organs make, store, and get rid of urinein the body. An upper UTI affects the [...] this condition includes: ? Antibiotic medicine. ? Ttmr-tmk-bwfptaz medicines to treat discomfort. ? Drinking enough water to stay hydrated. If you have frequent infections or have other conditions such as a kidney stone, you may need to see a health care provider who specializes in the urinary tract (urologist). In rare cases, urinary tract infections can cause sepsis. Sepsis is a life- threatening condition that occurs when the body responds to an infection. Sepsis is treated in the hospital with IV antibiotics, fluids, and other medicines. Follow these instructions at home: Medicines ? Take zkmg-dei-fxvxsyo and prescription medicines only as told by [...] Revised: 01/19/2021 Document Revie (more content not included)...Normal [facility] HospitalT3 Freeon 29-40-3270Xpnl T3 [Mass/Vol]1.5 pg/mLLow 2.0-4.4FSelect Medical Specialty Hospital - CincinnatiComment on above:Result Comment: Performed at: [employer] [id number] PhD Mahnaz ConklinPerformed By: #### [id number], [id number], [id number], [id number], [id number] ####[facility] [address] [place], [place] [address]Moywzkxfpop Receptor Antibody, Serumon 15-38-5009GAA receptor Ab Qn (S)<1.10Invalid Interpretation Code0.00-1.75[facility] HospitalComment on above:Result Comment: Performed at: [facility] [id number] MD Enrico Garciaformed By: #### [id number], [id number], [id number], [id number], [id number] ####[facility] [address] [place], [place] [address]TQNKMEYCYTzkyfxg By: SYSTEM SYSTEM on 43-68-5862Patteqy [Mass/Vol]4.2 g/dLNormal3.3 - 5.0 gm/dLRemisol ChemAlbumin/Globulin [Mass ratio] 1.4 {ratio}Normal1.1 - 2.2Remisol ChemALP [Catalytic activity/Vol]66 [iU]/d Pmvija43 - 98 Int._Unit/LRemisol ChemALT No additional P-5'-P [Catalytic activity/Vol]14 [iU]/dNormal6 - 46 Int._Unit/LRemisol ChemAST [Catalytic activity/Vol]22 [iU]/dNormal5 - 43 Int._Unit/LRemisol ChemBilirubin [Mass/Vol] 0.5 mg/dLNormal0.0 - 1.1 mg/dLRemisol ChemBilirubin.direct [Mass/Vol]0.1 mg/dL Normal0.0 - 0.4 mg/dLRemisol ChemBilirubin.indirect [Mass or moles/Vol]0.4 mg/dL Normal0.1 - 0.9 mg/dLRemisol ChemFree T4 [Mass/Vol]ng/dLLow0.58 - 1.64 ng/dL Remisol ChemGlobulin (S) [Mass/Vol]3.0 g/dLNormal1.4 - 4.0 gm/dLRemisol Chem Protein [Mass/Vol]7.2 g/dLNormal6.0 - 7.8 gm/dLRemisol ChemTSH Qn68.80 m[IU]/L High0.34 - 5.60 mcIU/mLRemisol ChemConsent for Treatmenton 18-41-0967Fdvguoa for [id number]#1.00TIFFNormMemorial Health System Marietta Memorial HospitalFree T4on 10-37-5540Kpha T4 [Mass/Vol]ng/dLLow0.58-1.64[facility] HospitalComment on above:Performed By: #### 9118875, [id number], 5960417, 1908873, 4016950 ####[address] [address]Npm Func Panelon 18-46-2042Sidirln [Mass/Vol]4.2 g/dLNormal 3.3-5.0[facility] HospitalComment on above:Performed By: #### 6728695, [id number], 8798412, 9142796, 7887003 ####[facility] [place] [address] [place] [address]Ocjzbqu/Globulin (S) [Mass conc ratio] 1.3Mmntor3.1-2.2FSelect Medical Specialty Hospital - CincinnatiComment on above:Performed By: #### 0569870, [id number], 8238339, 1538580, 3924520 ####[address] [address]EIH [Catalytic activity/Vol]66 Int._Unit/PWuldbv69-61RatknuTrumbull Memorial HospitalComment on above:Performed By: #### 3560549, [id number], 3401661, 2529066, 3311101 ####[address] [address]UHS No additional P-5'-P [Catalytic activity/Vol]14 Int._Unit/LNormal6-46[facility] Comment on above:Performed By: #### 7430915, 8745995625, 9894574, 4121973, 5590290 ####[address] [address]JBQ [Catalytic activity/Vol]22 Int._Unit/LNormal5-43[facility] HospitalComment on above:Performed By: #### 0683306, [id number], 3058975, 1285237, 4445605 ####[address] [address]Bbcrgsser [Mass/Vol]0.5 mg/dLNormal0.0-1.1FSelect Medical Specialty Hospital - Cincinnati Comment on above:Performed By: #### 5482063, 6649063895, 5880300, 7748547, 3989182 ####[facility] [address] [place], [place] [address]Agrqkkvze.direct [Mass/Vol]0.1 mg/dLNormal0.0-0.4FSelect Medical Specialty Hospital - CincinnatiComment on above:Performed By: #### 2374505, 3514643939, 5752370, 9243155, 0113493 ####Price [address] [address]Pejmsqfqz.indirect [Mass or moles/Vol]0.4 mg/dLNormal0.1-0.9[facility] HospitalComment on above:Performed By: #### 1521724, 0863236740, 1263270, 0558509, 0797531 ####Price [address] [address]Ptnzusdt (S) [Mass/Vol]3.0 g/dLNormal1.4-4.0[facility] HospitalComment on above:Performed By: #### 5912296, 9975608260, 8055216, 6808858, 2413213 ####Price [address] [address]Wppgxup [Mass/Vol]7.2 g/dLNormal6.0-7.8[facility] HospitalComment on above:Performed By: #### 5657600, 8667830232, 1469571, 1758767, 4849155 ####Albert [address] [address]Yvlzijabg Orderon 77-59-6730Uqyqwzkbr Order [id number]#1.00TIFFNormalTrumbull Memorial HospitalTSHon 74-78-7500DJD Qn68.80 m[IU]/LHigh0.34-5.60[facility] HospitalComment on above:Performed By: #### 2945071, 1592572903, 3847238, 9089308, 9837248 ####Albert [address] [place] [address]Jagoeuczpoel Noteon 87-45-4104Hdrvsciovdxa Note [id number]#1.00[facility] Valley Medical CenterInsurance Correspondenceon 51-95-4237Feodkzlwz Correspondence [id number]#1.00TIFSumma Health Barberton CampusConsultation Noteon 44-55-2414Skyozlpvxcuo Note [id number]#1.00TIFSumma Health Barberton Campus.Thyroglobulin by RIAon 55-84-6265Jffateiekrlut [Mass/Vol]159 ng/mLHigh [facility] HospitalComment on above:Result Comment: Confirmed by dilution. This test was developed and its performance characteristics determined by [employer]. It has not been cleared or approved [...] quantitation limit is 2.0 ng/mL. Performed at: [employer] [address] [place] [address] [id number] MD Yadiel CornellPerformed By: #### [id number], 2434988, 26458448, 5842072, 637584851, 12573673 ####[facility] [address] [place], [place] [address]D3 Reverseon 24-01-7182N7.reverse [Mass/Vol]31.2 ng/dLHigh9.2-24.1Fisher [facility] Samaritan HospitalComment on above:Result Comment: This test was developed and its performance characteristics determined by [employer]. It has not been cleared or approved by the Food and Drug Administration. Performed at: [address] [id number] Garciaformed By: #### [id number], 8095643, 30163189, 8384584, 300234420, 06778661 ####[facility] [address] [place], [place] [address]YzSr+Thyroglobulinon 95-04-9411Whonpnmjbpxrw Ab Qn 2.7 International_Unit/mLHigh0.0-0.9[facility] HospitalComment on above: Result Comment: Thyroglobulin Antibody measured by Nakul Gaopeng Methodology Performed at: [facility] [id number] [place], [place] [id number] PhD Mahnaz Gannformed By: #### [id number], 1367416, 74446705, 1323112, 532890307, 01640487 ####[facility] [address] [place], [place] [address]Xjtyfgi Perox.tpo Abon 05-42-9731BPE Ab Qn[IU]/mL Invalid Interpretation Code0-34FishR Adams Cowley Shock Trauma CenterComment on above: Result Comment: Performed at: [facility] [address] [place] [address] [id number] PhD Mahnaz Gannformed By: #### [id number], 0234901, 25743813, 2823849, 153562568, 98694656 ####[facility] [address] [place] [address] Medicine Office/Clinic Noteon 07-29-2023 Family Medicine Office/Clinic NoteChief Complaint irregular heart rate HPI Staff Patient [...] Regular rate and rhythm, no murmurs, rubs orgallops. Radial pulse 2+ bilaterally. Posterior tibial pulse 2+ bilaterally. Dorsalis pedis pulse 2+ bilaterally. Skin: Warm, not moist, no dry scaling. No rashes or lesions. No petechiae or purpura. No edema. Shehas no moistness of her skin at this time. Musculoskeletal: No cyanosis or clubbing. No gross deformities. Normal range of motion. Patient hasno tremors at this moment Lymphatics: Palpation of [...] as well and imagi (more content not included)...[facility] HospitalComment on above:Result Comment: Electronically Signed By: Matt Bass MD\.br\Date and Time Signed: 07/29/23 18:15 EST\.br\Electronically Co-Signed By: Jaja Alex\Date and Time Co-Signed: 07/24/2417:17 ESTInterdisciplinary Note - Social Workeron 14-30-5637Mafsepofqkokockpx Note - Social WorkerMignon STANFORD made a tc to patient today to discuss her positive depression screen. She states that her an xiety and depression are directly related to the issues she has going on with her thyroid at this time. She denies any need for resources related to these feelings. Patient will be seeing a specialist for her thyroid later this week and is hoping to get answers. ABDOULAYE encouraged her to contact the office should needs arise. ABDOULAYE will remain available.[facility] Ambulatory Visit Summaryon 52-82-7074Hvvjwxpzir Visit Summary JESSICA GRIFFITHS :1985 Visit Date:07/24/2023 [...] 07/24/23, Order for future visit, Lab Collect, PalpitationsNormalAbnormal thyroid stimulating hormone level, Print Label By Order Location, 675508\.br\ Echo Transthoracic Complete, 07/24/23, Routine, Order for future visit, Transport Mode: Ambulatory, Reason: Other (please specify), Reason: murmur, Heart murmur, pp_set_radiology_subspecialty, [facility], [facility] [place]\.br\ Medications\.br\ What How Much When Instructions\.br\ New propranolol (propra nolol 10 mg Tab) 1 Tablets By Mouth Once Pickup at [facility]\.br\ Unchanged baclofen (baclofen 10 [...] if questions or concerns \.br\ Pharmacy Information\.br\ [facility]: [address] [phone]\.br\ Allergies\.br\Latex\.br\ Tape (Rash)\.br\ Problems\.br\ Ongoing - Any problem that you are currently receiving treatment for.\.br\ Abnormal thyroid stimulating hormone level\.br\ Acid reflux\.br\ Allergic rhinitis\.br\ Chronic constipation with overflow\.br\ Chronic insomnia\.br\ Detrusor instability of bladder\.br\ Fecal soiling due to fecal incontinence\.br\ GERD without esophagitis\.br\ Heart murmur\.br\ HSV infection\.br\ Hyperthyroidism\.br\ Intestinal bacterial overgrowth\.br\ Lactose intolerance\.br\ Lumbar disc herniation with radiculopathy\.br\ Migraine headache\.br\ Nodule of left lobe of thyroidgland\.br\ Odynophagia\.br\ Palpitations\.br\ Prolapsed lumbosacral intervertebral disc\.br\ Screening for endocrine, nutritional, metabolic and immunity disorder\.br\ Thyroiditis, subacute\.br\ Variants of migraine\.br\ Historical - Any problem that you are no longer receiving treatment for.\.br\ A cute frontal sinusitis\.br\ Change in bowel habits\.br\ Chest pain, atypical\.br\ Chills\.br\ Disturbance of smell and taste\.br\ None\.br\ \.br\ \.br\ Sinusitis, acute frontal\.br\Urinary tract infection\.br\ Patient Survey\.br\ You may receive a survey via text or e-mail askingabout your office visit. Please share your experience with us by completing your survey. We appreciate your feedback and thank you for choosing us for your care.\.br\ \.br\[facility] HospitalAmbulatory Visit Summaryon 24-67-8229Bliyjnejlf Visit Summary JESSICA GRIFFITHS :1985 Visit Date:07/18/2023 [...] 1/ 2 - 1 tab po qhs Contactprescribing physician if questions or concerns Unchanged tramadol [...] conditions. ? You smoke (more content not included)...[facility] CHEMISTRYOrdered By: SYSTEM SYSTEM on 39-37-7730Dewb T4 [Mass/Vol]2.22 ng/dLHigh 0.58 - 1.64 ng/dLRemisol ChemTSH Qn0.01 m[IU]/LLow0.34 - 5.60 mcIU/mLRemisol ChemClipboard Summaryon 70-22-2575Sbcdvythd Summary {91-py-e5-5u-73-0g-56-2p-d7-5u-x6-3y-cb-25-c2-ac}XMLNormalTrumbull Memorial HospitalConsent for Treatmenton 27-94-1541Plgybqi for Treatment [id number]#1.00TIFFNormalThe [facility] Medicine Office/Clinic Noteon 12-96-8035Xricpj Medicine Office/Clinic NoteChief Complaint pt presents today c/o neck swelling, pressure in throat and ears after needle bx of thyroid nodule 07/14/[address] puente orders, no rfs History of Present Illness The patient is here with concerns of hyperthyroidism. Extensive documentation in the chart has beenreviewed as well as discussion with patient regarding recent consultations. She has seen Dr. Puente of ENT and had a biopsy on Friday at [facility], carried out by the radiologydepartment interventional specialist. She reviewed documented pathology report [...] She has trouble swallowing but no outright choking..Her right side is more tender than the left. She started getting issues on the left side when she first started with the earache in 04/2023. She takes tramadol 3 times a day for her back from pain man agement.. She has not taken any anti-inflammatories daily. She was put on amoxicillin 875/125 [address]Dr. Puente for an infection in the back [...] Nonicteric sclera. Oropharynx pink and moist. Adequate [place] dentition. Anterior neck, there is a fullness [...] an eye out for it. She is justnow finishing oral antibiotic for sinusitis that she is not taking consistently today but it is Augmentin and therefore I think it would be adequate coverage for potential bacterial infection of the thyroid although not likely. There certainly could be inflammatory change because of the hypothyroidactivity or because of the fine- needle aspirate. She is instructed to begin ibuprofen 800 mg 3 times daily with meals warm compresses or cool and seek emergent care for any acute worsening. 2. Nodule of left lobe of thyroid gland (E04.1: Nontoxic single thyroid nodule) We did review the pathology report on her phone from [facility] which indicates benign cellularity although admittedly may be an adequate specimen. She should keep follow-up with Dr. Ray Gonzales as planned for further discussion and management 3. Hyperthyroidism (E05.90: Thyrotoxicosis, unspecified without thyrotoxic crisis or storm) Problems #1 and 2. Awaiting thyroid antibodies to determine management. She does have an appointment scheduled to see Dr. Mcghee cardiology early July. He will determine if methimazole or radiation are necessary. 4. Odynophagia (R13.10: Dysphagia, unspecified) (more content not included)... NormalTrumbull Memorial HospitalComment on above:Result Comment: Electronically Signed By: JUAN LUIS REES, Nancy\.br\Date and Time Signed: 07/18/23 19:02 EST Free T4on 89-91-1760Goak T4 [Mass/Vol]2.22 ng/dLHigh0.58-1.64[facility] HospitalComment on above:Performed By: #### [id number], 2231919, 59242585, 1729421, 799425725, 70226562 #### [facility] [address] [place], [place] [address]Gyjnlap Educationon 77-09-2311Jswzfbe EducationEndocrinology Hyperthyroidism Hyperthyroidism refers to a thyroid gland [...] Follow these instructions at home: ? Take wdbf-vse-zfdtooh and prescription medicines only as told by your health care provider. ? Do not use any products that contain nicotine or tobacco. These products include cigarettes, chewing tobacco, and vaping devices, such as e-cigarettes. If you need help quitting, ask your health care provider. ? Follow any instructions from your health care provider about diet. You may be instructed to limitfoods that contain iodine. ? Keep all follow-up visits. You will need to have blood tests regularly so that your health care provider can monitor your condition. Where to find more information ? National [place] of Diabetes and Digestive and Kidney Diseases: [...] and produces too much of a hormone calledthyroxine. ? The most common cause is Graves' disease, a disorder in which your immune system attacks the thyroid gland. ? Hyperthyroidism can cause various symptoms, such as u (more content not included)...NormalTrumbull Memorial HospitalTSHon 00-38-8065JHH Qn0.01 m[IU]/L Low0.34-5.60[facility] HospitalComment on above:Performed By: #### 704607939, 5024194, 35067885, 4431991, 433172228, 51833607 #### [facility] [address] [place] [address]Raz 14-79-5761QUrlxyypz: BC24 Received: 07/15/23-1303 Status: SOUT Req Num: [id number] Spec Type: Cytology Subm Dr: MARTA PUENTE MD Tissues: A FNA SLIDES NOPATH (LT THYROID NOD) Procedures: Cyto Int and Re, PAPSTN/5 Age/ Patient Sex Location Account Attending Physician Jessica Griffiths 37/F [facility] [id number] MARTA PUENTE MD SPEC NUM: [id number] RECD: 07/15/23 STATUS: DENA HURTADO NUM: [id number] KANCHAN: 07/14/23- SUBM DR: MARTA PUENTE MD ENTERED: 07/15/23 [facility] DR: Richie,Neno SPEC TYPE: Cytology DEPT: [facility] ENTERED BY: [id number] RECV BY: [id number] ORDERED: Cyto Int and Re, PAPSTN/5 ORDERED: Cyto Int and Re, PAPSTN/5 Pathological Diagnosis Left thyroid mid lobe nodule, FNA cytology: - Adequate but slightly limited for assessment - The Lyman system is category 2: Benign - A [...] received are 4 smeared slides for microscopic examination.(CC/nh) Specimen: [id number] Received: 07/15/23 Status: DENA Hurtado Num: [id number] Spec Type: Cytology Subm Dr: MARTA PUENTE MD Tissues: A FNA SLIDES NOPATH (LT THYROID NOD) Procedures: Cyto Int and Re, PAPSTN/5 Patient: Jessica Griffiths [id number] (Continued) Specimen: [id number] Received: 07/15/23 (Continued) Signed (signature on file) Alfonso Correa MD 07/16/231122 Specimen: BC24-5 Received: 07/15/23 Status: DENA Hurtado Num: [id number] Spec Type: Cytology Subm Dr: MARTA PUENTE MD Tissues: A FNA SLIDES NOPATH (LT THYROID NOD) Procedures: Cyto Int and Re PAPSTN/5 Patient: Jessica Griffiths [id number] (Continued) Specimen: [id number]- Received: 07/15/23 (Continued) CPT Codes 27605 Specimen: BC24 Received: 07/15/23 Status: DENA Hurtado Num: [id number] Spec Type: Cytology Subm Dr: MARTA PUENTE MD Tissues: A FNA SLIDES NOPATH (LT THYROID NOD) Procedures: Cyto Int and Re PAPN/5 Patient: Jessica Griffiths [id number] (Continued) Signed (signature on file) Alfonso Correa MD 07/16/[address] [place], [place] [address]No Panel Informationon 07-14-2023 Radiology Study observation (narrative)[facility] HealthcareUS BIOPSY THYROIDon 72-19-3158[place]bz[place] [address] Ultrasound Report Signed Patient: JESSICA GRIFFITHS MR#: [id number] : 1985 Acct:[id number] Age/Sex: 37 / F ADM Date: 07/14/23 Loc: US Attending Dr: Marta Puente M.D. Ordering Physician: Marta Puente M.D. Date of Service: 07/14/23 Procedure(s): US biopsy thyroid Accession Number(s): [id number] cc: Physician,Non-Staff Dimaond; Marta Puente M.D. [place] [id number] Patient Name: JESSICA GRIFFITHS MRN: [id number] date: 1985 Sex: F Assigned Patient Location: US Current Patient Location: US Accession/Order Number: [id number] Exam Date: 07/14/2023 13:00 Report Date: 07/14/2023 13:34 At the request of: MARTA PUENTE Procedure: US biopsy thyroid EXAMINATION: US biopsy thyroid HISTORY: Left thyroid nodule COMPARISON: No relevant comparison available. TECHNIQUE: After obtaining informed consent, an ultrasound-guided biopsy was performed in the usual sterile manner. FINDINGS: IMAGING: Ultrasound BIOPSY NEEDLE: 25-gauge, 2 and SPECIMEN TYPE, #, LOCATION: 4 fine-needle aspirates, 3.8 cm left thyroid nodule MEDICATION: 3 cc 1% buffered lidocaine without epinephrine COMPLICATIONS: None. LABORATORY: Samples sent for pathology and genetic analysis OTHER: Negative. US/US biopsy thyroid IMPRESSION: Uneventful ultrasound guided biopsy. The patient was instructed to obtain follow up care and biopsy results from the referring physician. Electronically authenticated by: GIOVANNA FUNES Date: 07/14/2023 13:34 Dictated By: Giovanna Funes M.D. Signed By: 07/14/237 DD/ 33 TD/TT: Sort Operations Supervisor:JUAN DANIELHRadiology, Radiologist, - 07/14/2023 [place] [address] Ultrasound Report Signed Patient: JESSICA GRIFFITHS MR#: [id number] : 1985 Acct:[id number] Age/Sex: 37 / F ADM Date: 07/14/23 Loc: US Attending Dr: Marta Puente M.D. Ordering Physician: Marta Puente M.D. Date of Service: 07/14/23 Procedure(s): US biopsy thyroid Accession Number(s): [id number] cc: Physician,Non-Staff Diamond; Marta Puente M.D. [facility] [place] [id number] Patient Name: JESSICA GRIFFITHS MRN: [id number] date: 1985 Sex: F Assigned Patient Location: US Current Patient Location: US Accession/Order Number: [id number] Exam Date: 07/14/2023 13:00 Report Date: 07/14/2023 13:34 At the request of: MARTA PUENTE Procedure: US biopsy thyroid EXAMINATION: US biopsy thyroid HISTORY: Left thyroid nodule COMPARISON: No relevant comparison available. TECHNIQUE: After obtaining informed consent, an ultrasound-guided biopsy was performed in the usual sterile manner. FINDINGS: IMAGING: Ultrasound BIOPSY NEEDLE: 25-gauge, 2 and SPECIMEN TYPE, #, LOCATION: 4 fine-needle aspirates, 3.8 cm left thyroid nodule MEDICATION: 3 cc 1% buffered lidocaine without epinephrine COMPLICATIONS: None. LABORATORY: Samples sent for pathology and genetic analysis OTHER: Negative. US/US biopsy thyroid IMPRESSION: Uneventful ultrasound guided biopsy. The patient was instructed to obtain follow up care and biopsy results from the referring physician. Electronically authenticated by: GIOVANNA FUNES Date: 07/14/2023 13:34 Dictated By: Giovanna Funes M.D. Signed By: 07/14/237 DD/ 133 TD/TT: Sort Operations Supervisor: GILBERT Deng BIOPSY THYROIDOrdered By: Radiologist Radiology on 07-14-2023 GILBERT [employer] Work Phone: nm Thyroid Imaging w/ Uptk Multipleon 14-02-9871YA Thyroid Imaging w/ Uptk MultipleExam Date/Time: 07/09/2023 09:00 EST Reason for Exam: [...] Hour Uptake (Normal 10 - 30%): 0.8 Radiopharmaceutical Administration Dose (microcuries I-123 Diagnostic Capsule): 203.5 Imaging Post Administration (hrs): 24NoUniversity Hospitals Samaritan Medical CenterCHEMISTRY Ordered By: SYSTEM SYSTEM on 17-60-7862Wftojczwaqs [Mass/Vol]145 mg/bSCjcypk496 - 200 mg/dLRemisol ChemCholesterol in HDL [Mass/Vol]62 mg/dLInvalid Interpretation CodeRemisol ChemComment on above:Result Comment: '>= 60 LOW RISK' '<= 40 HIGH RISK'Cholesterol in LDL [Mass/Vol]76 mg/dLNormal<=129mg/dLRemisol ChemCholesterol in VLDL [Mass/Vol]10 mg/dLNormal7 - 40 mg/dLRemisol Chem Triglyceride [Mass/Vol]52 mg/dLNormal<=149mg/dLRemisol ChemConsent for Treatment on 69-64-9540Lnyjsiz for Treatment [id number]#1.00TIFFNormalTrumbull Memorial HospitalLipid Panelon 39-28-4695Xbdnbaawbdf [Mass/Vol]145 mg/iTSviycy702-929FrnksrTrumbull Memorial HospitalComment on above:Performed By: #### [id number] ####[facility] [address]vqfrxwmgv[address] AveNorcity hospitalk, [place] [address]Blgwutqtora in HDL [Mass/Vol]62 mg/dLInvalid Interpretation CodeTrumbull Memorial Hospital Comment on above:Result Comment: '>= 60 LOW RISK' '<= 40 HIGH RISK'Performed By: #### [id number] ####[facility] Olnmiaincn[address] Pass[address] AveNorcity hospitalk, [place] [address]Ohkbxdlfpgd in LDL [Mass/Vol]76 mg/dL Normal<=129[facility] Memorial HospitalComment on above:Performed By: #### 8305644 ####[facility] Soxypboztu[address]Norcity hospitalk, [place] [address]Zqrqzxekiss in VLDL [Mass/Vol]10 mg/dLNormal7-40[facility] Comment on above:Performed By: #### 8088845 ####[facility] Nfuyqacseh[address] Pass[address] AveNorwalk, [place] [address]Qqpsrxopfycl [Mass/Vol]52 mg/dLNormal <=149[facility] Memorial HospitalComment on above:Performed By: #### 3763399 ####[facility] Oaehxolkfb[address] Pass[address] AveNorwalk, [place] [address]YU With Cult Reflexon 45-47-6469Eyjuisqe LM Ql (Urine sed)1+ /HPFAbnormalTrace [facility] HospitalComment on above:Performed By: #### [id number] ####[address] [address] Bilirubin Ql (U)NegativeNormalNegativeTrumbull Memorial HospitalComment on above:Performed By: #### [id number] ####[address] [address]Phfoynm (U)CLEARNormalClearAtrium Health Carolinas Rehabilitation Charlotteer [facility] Samaritan HospitalComment on above:Performed By: #### [id number] ####[address] [address]Oignq (U)YELLOWNormalYellow [facility] HospitalComment on above:Performed By: #### [id number] ####[address] [address] Epithelial cells.squamous LM.HPF (Urine sed) [#/Area]/[HPF]Normal0-2Fisher [facility] Samaritan HospitalComment on above:Performed By: #### 03493270 ####[address] [address]Vssqgag Test strip (U) [Mass/Vol]NegativeNormalNegativeTrumbull Memorial HospitalComment on above: Performed By: #### [id number] ####[address] [address]Xbyqhxukvl Ql (U)NegativeNormalNegativeTrumbull Memorial HospitalComment on above:Performed By: #### 07382097 ####[address] [address]Myrrygh (U) [Mass/Vol] TRACEAbnormalNegativeTrumbull Memorial HospitalComment on above:Performed By: #### [id number] ####[address] [address]Adgalex.plasma/[place].RBC (Bld) [Mass ratio]2-3Qbtgwf5-6Oowhio [facility]aritan HospitalComment on above:Performed By: #### [id number] ####[address] [address]Myram Ql (Urine sed)2+ NormalTrumbull Memorial HospitalComment on above:Performed By: #### [id number] ####[address] [address] Nitrite Ql (U)NegativeNormalNegativeTrumbull Memorial HospitalComment on above: Performed By: #### [id number] ####[address] [address]qJ (U)6.5 [pH]Invalid Interpretation Code5.0-9.0 [facility] HospitalComment on above:Performed By: #### 87728531 ####[address] [address] Protein (U) [Mass/Vol]NegativeNormalNegativeTrumbull Memorial HospitalComment on above:Performed By: #### [id number] ####[address] [address]Qbxugobd gravity (U) [Rel density] 1.015Invalid Interpretation Code1.005-1.030[facility] Memorial HospitalComment on above:Performed By: #### [id number] ####[address] [address]Ywxq of Urine collection methodClean CatchNormal [facility] Memorial HospitalComment on above:Performed By: #### [id number] ####[address] [address] [address] Urobilinogen Qn (U)0.2 {Dylan'U}/dLNormal0.0-1.0[facility] Comment on above:Performed By: #### [id number] ####[address] [address]IJJ Auto Ql (U)NegativeNormalNegative [facility] HospitalComment on above:Performed By: #### [id number] ####[address] [address]SAO LM.HPF (Urine sed) [#/Area]8-9Pygimf3-5Cudulp [facility]aritan HospitalComment on above:Performed By: #### [id number] ####Price [facility] [address] [place], [place] [address]KWPMMJULMOQylrixi By: Jennifer Messer on 07-08-2023 Bacteria LM Ql (Urine sed)1+ /HPFInvalid Interpretation CodeTrace/HPFINTEGRIS [facility] [place] UA Auto SSBilirubin Ql (U)Negative (07/08/23 7:42 AM)NormalNegativeINTEGRIS [facility] [place] UA Auto SSClarity (U)Clear (07/08/23 7:42 AM)NormalClearFINTEGRIS [facility] [place] UA Auto SSColor (U)Yellow (07/08/23 7:42 AM)NormalYellowINTEGRIS MIAMI HOSPITAL [facility] [place] UA Auto SSEpithelial cells.squamous LM.HPF (Urine sed) [#/Area]/[HPF]Normal0-2/HPFINTEGRIS MIAMI [facility]OSP[facility] [place] UA Auto SSGlucose Test strip (U) [Mass/Vol]Negative (07/08/23 7:42 AM)NormalNegativeINTEGRIS [facility]I [facility]OSP[facility] [place] UA Auto SSHemoglobin Ql (U)Negative (07/08/23 7:42 AM)NormalNegativeINTEGRIS [facility] [place] UA Auto SSKetones (U) [Mass/Vol]Trace *ABN* (07/08/23 7:42 AM)Invalid Interpretation CodeNegativeINTEGRIS MIAMI [facility]OS[facility] [place] UA Auto SS [place].plasma/[place].RBC (Bld) [Mass ratio]0-3 /HPFNormal0-3/HPFINTEGRIS [facility] [place] UA Auto SSMucus Ql (Urine sed)2+ (07/08/23 7:42 AM)NormalINTEGRIS [facility]I [facility]OSP[facility] [place] UA Auto SSNitrite Ql (U)Negative (07/08/23 7:42 AM)NormalNegativeINTEGRIS [facility] [place] UA Auto SSpH (U)6.5 *NA* (07/08/23 7:42 AM)Invalid Interpretation Code5.0 - 9.0[facility] U[facility] Auto SSProtein (U) [Mass/Vol]Negative (07/08/23 7:42 AM)NormalNegativeINTEGRIS [facility] [place] UA Auto SSSpecific gravity (U) [Rel density] 1.015 *NA* (07/08/23 7:42 AM)Invalid Interpretation Code1.005 - 1.030[facility] [place] U[facility] Auto SSUA Spec DescClean Catch (07/08/23 7:42 AM)NormalINTEGRIS MIAMI HOSPITAL – [place] UA Auto SSUrobilinogen Qn (U)0.8267576 {Dylan'U}/dLNormal0.0 - 1.0 EU/dLINTEGRIS [facility]AMI [facility]OSP[facility] [place] UA Auto SSWBC Auto Ql (U)Negative (07/08/23 7:42 AM)NormalNegativeFEDERAL [facility] Auto SSWBC LM.HPF (Urine sed) [#/Area]0-5 /HPFNormal0-5/HPFINTEGRIS [facility] [place] UA Auto SSInsurance Correspondenceon 42-66-4369Owovxqzrs [id number]#1.00TIFSumma Health Barberton CampusPhysician Referralon 12-02-0622Xwdklfyzj Referral [id number]#1.00[facility] CenterConsent for Treatmenton 54-50-3055Vjueitm for Treatment [id number]#1.00TIFSumma Health Barberton CampusUS Thyroidon 28-21-0710CR ThyroidExam Date/Time: 06/27/2023 07:55 EST Reason for Exam: Thyrotoxicosis, unspecified without thyrotoxic crisis or storm;Hyperthyroidism Report IMPRESSION: 6 X 3 X 4 [...] Cassius Ernst MD Transcribed by: YAMINI Technologist: HINicky [facility]aritan HospitalFabeth [facility] Medicine Office/Clinic Noteon 01-31-0855Nhuefl Medicine Office/Clinic NoteChief Complaint Discuss thyroid HPI Staff Patient here [...] with voice recognition artificial intelligence software, specifically [employer] ([place]), [employer]encil and or Tamago. Substitutions may have occurred due to the inherent limitations of voice recognition and artificial intelligence software. Documentation services were performed after patient or guardian consented to allow [employer] to record this visit. D (more content not included)...[facility] HospitalComment on above:Result Comment: Electronically Signed By: Matt Bass MD\.br\Date and Time Signed: 06/24/23 18:25 EST\.br\Electronically Co-Signed By: Jaja Alex\.br\Date and Time Co-Signed: 06/24/2417:04 ESTT3 Freeon 34-69-8176Dkav T3 [Mass/Vol]4.2 pg/mLInvalid Interpretation Code2.0-4.4Fisher [facility] HospitalComment on above:Result Comment: Performed at: [facility] [address] [id number] PhD Mahnaz ConklinPerformed By: #### [id number], 5686354, 2800316, 53570644 ####Albert [facility] [address] [place], [place] [address]Cxcb Diffon 97-42-5105Vyqurjtzw/100 WBC (Bld)0.3 %Normal0.0-2.0[facility] HospitalComment on above:Order Comment: Order Added by Discern Expert. Performed By: #### [id number], 9868360, 5041647, 0485751, 8849692 #### [facility] [address] [place] [address]Masqccmpz/Leukocytes Auto (Bld) [Pure # fraction]0.0 E9/LNormal 0.0-0.2Fisher [facility] HospitalComment on above:Order Comment: Order Added by Discern Expert.Performed By: #### [id number], 8594896, 6147197, 6763422, 9975254 #### [facility] [address] [place] [address]Wtqeiyqyajm/100 WBC (Bld)0.6 %Normal0.0-8.0[facility] HospitalComment on above:Order Comment: Order Added by Discern Expert.Performed By: #### 58630606, 0058189, 0974367, 2343752, 2299987 #### [facility] [address] [place] [address]Dtmqfbgswxj/Leukocytes Auto (Bld) [Pure # fraction]0.0 E9/L Normal0.0-0.5FSelect Medical Specialty Hospital - CincinnatiComment on above:Order Comment: Order Added by Discern Expert.Performed By: #### [id number], 6331278, 4437948, 6938812, 8440309 #### [facility] [address] [place] [address]Dstieiuiuck/100 WBC (Bld)20.6 %Ttqfhb07.0-50.0[facility] HospitalComment on above:Order Comment: Order Added by Discern Expert. Performed By: #### 03605585, 6900560, 7376204, 0043099, 4996630 #### [facility] [address] [place] [address]Wmaqzslzqrd/Leukocytes Auto (Bld) [Pure # fraction]1.7 E9/L Normal1.0-4.0[facility] HospitalComment on above:Order Comment: Order Added by Discern Expert.Performed By: #### [id number], 3619394, 9407666, 3936809, 2342277 #### [facility] [address] [place] [address]Rbzoiifvi/100 WBC (Bld)6.6 %Normal4.0-14.0[facility] HospitalComment on above:Order Comment: Order Added by Discern Expert.Performed By: #### 78435127, 2395355, 5881357, 6092227, 4492365 #### [facility] [address] [place] [address]Ykqfeiadd/Leukocytes Auto (Bld) [Pure # fraction]0.5 E9/LNormal 0.2-1.0[facility] HospitalComment on above:Order Comment: Order Added by Discern Expert.Performed By: #### 63478870, 2023858, 4748820, 1778534, 1237700 #### [facility] [address] [place] [address]Bshpyikmztc/100 WBC (Bld)71.9 %Pdnatd32.0-75.0[facility] HospitalComment on above:Order Comment: Order Added by Discern Expert. Performed By: #### 45246431, 8257033, 5064062, 3092766, 7355603 #### [facility] [address] [place] [address]Xsxdgagpmkq/Leukocytes Auto (Bld) [Pure # fraction]5.8 E9/L Normal2.0-7.5FSelect Medical Specialty Hospital - CincinnatiComment on above:Order Comment: Order Added by Discern Expert.Performed By: #### [id number], 0274831, 7306608, 1855795, 8345839 #### [facility] [address] [place] [address]GBQ w/ Auto Diffon 55-96-5680Jlrnwnqzhbv distribution width (RBC) [Ratio]12.6 %Lyvsyh86.9-14.2FSelect Medical Specialty Hospital - CincinnatiComment on above: Performed By: #### 60383153, 7630389, 9186847, 7871346, 6222886 #### [facility] [address] [place], [place] [address]Hematocrit (Bld) [Volume fraction]37.8 %Ezgtnm41.0-46.0[facility] HospitalComment on above:Performed By: #### 79477921, 7670649, 6536015, 9766174, 7454789 #### [facility] [address] [place], [place] [address]Hemoglobin (Bld) [Mass/Vol]12.7 g/sFFynjch24.0-16.0[facility] HospitalComment on above:Performed By: #### 51676436, 1885559, 6775848, 2279739, 7901159 #### [facility] [address] [place], [place] [address]MCH (RBC) [Entitic mass]32.2 zmGnrenb29.0-34.0[facility] HospitalComment on above:Performed By: #### [id number], 9582198, 1564751, 4702095, 2391252 #### [facility] [address] [place], [place] [address]MCHC (RBC) [Mass/Vol]33.8 g/pEMpnjtl14.4-36.0[facility] HospitalComment on above:Performed By: #### 31158661, 4025242, 1012202, 6228611, 9260067 #### [facility] [address] [place] [address]QPK (RBC) [Entitic vol]95.5 lKEbaqjc99.0-100.0[facility] HospitalComment on above:Performed By: #### 63637642, 5198127, 4492442, 8481785, 9036755 #### [facility] [address] [place], [place] [address]Platelet mean volume (Bld) [Entitic vol]8.5 fLNormal6.4-10.8 [facility] HospitalComment on above:Performed By: #### 91377646, 9156086, 2726575, 4919065, 7555501 #### [facility] [address] [place], [place] [address]Xwzpwjvma (Bld) [#/Vol]303.0 E9/ODusxvd468.0-500.0[facility] HospitalComment on above:Performed By: #### 86153557, 0506950, 8584650, 8447009, 5998699 #### [facility] [address] [place], [place] [address]HHC (Bld) [#/Vol]4.0 E12/LLow4.3-5.9[facility] Comment on above:Performed By: #### 63623317, 6695916, 5206352, 6460144, 6809048 #### [facility] [address] [place], [place] [address]AJU corrected for nucl RBC Auto (Bld) [#/Vol]8.1 E9/LNormal 4.0-11.0[facility] HospitalComment on above:Performed By: #### 28625004, 9957169, 4335008, 4021448, 9644117 #### [facility] [address] [place], [place] [address]PENQHRGKQNbsvryk By: SYSTEM SYSTEM on 66-60-7160Rkaugov [Mass/Vol]3.8 g/dLNormal3.3 - 5.0 gm/dLRemisol ChemAlbumin/Globulin [Mass ratio] 1.3 {ratio}Normal1.1 - 2.2Remisol ChemAlk Phos83 [iU]/gJcejbi60 - 98 Int._Unit/L Remisol NppuGAT25 [iU]/dNormal6 - 46 Int._Unit/LRemisol ChemAnion gap [Moles/Vol]10 mmol/LNormal6 - 16 mEq/LRemisol VrmfTWX91 [iU]/dNormal5 - 43 Int._Unit/LRemisol ChemBili Total0.5 mg/dLNormal0.0 - 1.1 mg/dLRemisol Chem Calcium [Mass/Vol]8.7 mg/dLLow8.9 - 11.1 mg/dLRemisol ChemChloride [Moles/Vol] 103 mmol/MXeczje983 - 111 mmol/LRemisol ChemCO2 [Moles/Vol]29 mmol/SSyzwlf75 - 31 mmol/LRemisol ChemCreatinine [Mass/Vol]0.6 mg/dLNormal0.5 - 1.3 mg/dLRemisol ChemeGFRmL/min/1.73 f2Fraryz>=59mL/min/1.73 w7Uolacwb ChemFree T4 [Mass/Vol]1.37 ng/dLNormal0.58 - 1.64 ng/dLRemisol ChemGlobulin (S) [Mass/Vol]3.0 g/dLNormal 1.4 - 4.0 gm/dLRemisol ChemGlucose [Mass/Vol]84 mg/cZTvuxib14 - 199 mg/dLRemisol ChemPotassium [Moles/Vol]3.9 mmol/LNormal3.5 - 5.3 mmol/LRemisol ChemProtein [Mass/Vol]6.8 g/dLNormal6.0 - 7.8 gm/dLRemisol ChemSodium [Moles/Vol]138 mmol/L Wmogke634 - 145 mmol/LRemisol ChemT3 Vyneji73.6 %Mnznqp57.0 - 48.4 %Remisol Chem T4 [Mass/Vol]18.8 ug/dLHigh4.6 - 9.1 mcg/dLRemisol ChemTSH Qn0.07 m[IU]/LLow0.34 - 5.60 mcIU/mLRemisol ChemUrea nitrogen [Mass/Vol]13 mg/dLNormal5 - 21 mg/dL Remisol ChemUrea nitrogen/Creatinine [Mass ratio]22 mg/ozBlnk10 - 20Remisol Chem CMPon 51-80-2553Oxvzdio [Mass/Vol]3.8 g/dLNormal3.3-5.0[facility] HospitalComment on above:Performed By: #### 86445944, 1452090, 2473563, 2852618, 8516146 #### [facility] [address] [place] [address]Oizgzqi/Globulin [Mass ratio]1.3 {ratio}Normal1.1-2.2FSelect Medical Specialty Hospital - CincinnatiComment on above:Performed By: #### 31349246, 9814372, 8112346, 6786379, 2646529 #### [facility] [address] [place] [address]God Phos83 Int._Unit/ZLlcjll27-54OdreopTrumbull Memorial Hospital Comment on above:Performed By: #### 24586581, 9853329, 4822421, 4691291, 4571031 #### [facility] [address] [place] [address] 69[address]IIF73 Int._Unit/LNormal6-46[facility] HospitalComment on above:Performed By: #### 71097498, 2994615, 0958396, 2453552, 4177952 #### [facility] [address] [place] [address]Vdmmh gap [Moles/Vol]10 mmol/LNormal6-16[facility] HospitalComment on above:Performed By: #### 70201916, 1558624, 0431811, 3658554, 9070739 #### [facility] [address] [place] [address]IVB87 Int._Unit/LNormal5-43[facility] HospitalComment on above:Performed By: #### 73900213, 3677415, 7590755, 8585040, 0985983 #### [facility] [address] [place] [address]Wsrg Total0.5 mg/dLNormal0.0-1.1FSelect Medical Specialty Hospital - Cincinnati Comment on above:Performed By: #### 06833320, 6306570, 3327551, 6398545, 2409601 #### [facility] [address] [place] [address]BMR/Creat Ratio22 No AfyhmJwiq12-46KtrlccTrumbull Memorial Hospital Comment on above:Performed By: #### 72768105, 6148889, 1435803, 4310538, 4374950 #### [facility] [address] [place], [place] [address]Cmazuda [Mass/Vol]8.7 mg/dLLow8.9-11.1FSelect Medical Specialty Hospital - CincinnatiComment on above:Performed By: #### 48021713, 9975280, 8441293, 8635292, 6456893 #### [facility] [address] [place], [place] [address]Prseuxid [Moles/Vol]103 mmol/ZFvmbcj548-944VykowjTrumbull Memorial HospitalComment on above:Performed By: #### 94572605, 8977503, 0884972, 2113055, 8290470 #### [facility] [address] [place], [place] [address]CG5 [Moles/Vol]29 mmol/UOxjwcn51-66OetofvTrumbull Memorial Hospital Comment on above:Performed By: #### 36875997, 2903461, 1887750, 9707270, 5851850 #### [facility] [address] [place], [place] [address]Ququrgptea [Mass/Vol]0.6 mg/dLNormal0.5-1.3FSelect Medical Specialty Hospital - CincinnatiComment on above:Performed By: #### 18882719, 3085796, 4199881, 0123538, 8606817 #### [facility] [address] [place], [place] [address]Idiupwal (S) [Mass/Vol]3.0 g/dLNormal1.4-4.0[facility] HospitalComment on above:Performed By: #### 45615744, 0270471, 5162409, 5355620, 0045647 #### [facility] [address] [place], [place] [address]Ebtxlbx [Mass/Vol]84 mg/yARgisgc53-462AjgekgTrumbull Memorial HospitalComment on above:Performed By: #### 21060856, 7160050, 1830454, 5911886, 6734696 #### [facility] [address] [place], [place] [address]Fegvbzzjn [Moles/Vol]3.9 mmol/LNormal3.5-5.3FSelect Medical Specialty Hospital - CincinnatiComment on above:Performed By: #### 31153825, 8050985, 3811504, 2476471, 0315287 #### [facility] [address] [place], [place] [address]Rdwunim [Mass/Vol]6.8 g/dLNormal6.0-7.8[facility] HospitalComment on above:Performed By: #### 53845009, 5057580, 7741136, 2675002, 2627567 #### [facility] [address] [place] [address]Qhplaz [Moles/Vol]138 mmol/ZWwrawt333-979YddclqTrumbull Memorial HospitalComment on above:Performed By: #### 46396942, 7200005, 5563007, 7040183, 1543327 #### [facility] [address] [place] [address]Proc nitrogen [Mass/Vol]13 mg/dLNormal5-21[facility] HospitalComment on above:Performed By: #### 08374016, 2930110, 2314847, 2764658, 6079281 #### [facility] [address] [place] [address]Almoshy for Treatmenton 81-63-3687Cdlhjin for Treatment [id number]#1.00TIFFNormalTrumbull Memorial HospitalFree T4on 42-99-6522Sanm T4 [Mass/Vol]1.37 ng/dLNormal0.58-1.64[facility] HospitalComment on above:Performed By: #### 77749059, 2379603, 1712174, 3910697, 6769387 #### [facility] [address] [place], [place] [address]YATEEDTFWROlkykwm By: SYSTEM SYSTEM on 03-83-6979Igsquliwm/100 WBC (Bld)0.3 %Normal0.0 - 2.0 %[facility] HemeAutoSSBasophils/Leukocytes Auto (Bld) [Pure # fraction]0.0 E9/LNormal0.0 - 0.2 E9/LFTMC HemeAutoSSEosinophils/100 WBC (Bld)0.6 %Normal0.0 - 8.0 %[facility] HemeAutoSSEosinophils/Leukocytes Auto (Bld) [Pure # fraction]0.0 E9/LNormal0.0 - 0.5 E9/LFTMC HemeAutoSSLymphocytes/100 WBC (Bld)20.6 %Osfozi75.0 - 50.0 %[facility] HemeAutoSSLymphocytes/Leukocytes Auto (Bld) [Pure # fraction]1.7 E9/LNormal1.0 - 4.0 E9/LFTMC HemeAutoSSMonocytes/100 WBC (Bld)6.6 %Normal4.0 - 14.0 %[facility] HemeAutoSSMonocytes/Leukocytes Auto (Bld) [Pure # fraction]0.5 E9/LNormal0.2 - 1.0 E9/LFTMC HemeAutoSSNeutrophils/100 WBC (Bld) 71.9 %Fhafdb80.0 - 75.0 %[facility] HemeAutoSSNeutrophils/Leukocytes Auto (Bld) [Pure # fraction]5.8 E9/LNormal2.0 - 7.5 E9/LFTMC HemeAutoSSHEMATOLOGYOrdered By: Petra Rowan on 50-17-4446Pbaagldxffw distribution width (RBC) [Ratio]12.6 % Vsxveo85.9 - 14.2 %[facility] HemeAutoSSHematocrit (Bld) [Volume fraction]37.8 %Normal 34.0 - 46.0 %[facility] HemeAutoSSHemoglobin (Bld) [Mass/Vol]12.7 g/mALbpylw98.0 - 16.0 gm/dLFTMC HemeAutoSSMCH (RBC) [Entitic mass]32.2 ggBfjehw81.0 - 34.0 pgFTMC HemeAutoSSMCHC (RBC) [Mass/Vol]33.8 g/uNXmvpxo88.4 - 36.0 gm/dLINTEGRIS MIAMI [facility]OSPITAL [facility] HemeAutoSS MCV (RBC) [Entitic vol]95.5 eAQkjbxl13.0 - 100.0 fLINTEGRIS MIAMI HOSPITAL – [place] HemeAutoSSPlatelet mean volume (Bld) [Entitic vol]8.5 fLNormal6.4 - 10.8 fLINTEGRIS MIAMI HOSPITAL – [place] HemeAutoSSPlatelets (Bld) [#/Vol]303.0 E9/YFiqcgd485.0 - 500.0 E9/[facility] HemeAutoSSRBC (Bld) [#/Vol] 4.0 E12/LLow4.3 - 5.9 E12/[facility] HemeAutoSSWBC corrected for nucl RBC Auto (Bld) [#/Vol]8.1 E9/LNormal4.0 - 11.0 /[facility] HemeAutoSSPhysician Orderon 06-21-2023 Physician [id number]#1.00TIFFNormalTrumbull Memorial HospitalT3 Uptakeon 70-49-9930I2 Ckoacz54.6 %Ztciri92.0-48.4FSelect Medical Specialty Hospital - CincinnatiComment on above:Performed By: #### 2590077, 8934661, 5445465, 92945670 ####[facility] [address] [place], [place] [address]Y0 Totalon 18-50-7876Z376.8 microgram/dLHigh4.6-9.1FSelect Medical Specialty Hospital - CincinnatiComment on above:Performed By: #### 5545240, 8198874, 8878117, 32440489 ####[facility] [address] [place], [place] [address]YTYgs 56-08-9032TDT Qn0.07 m[IU]/LLow0.34-5.60[facility] HospitalComment on above:Performed By: #### 0686291, 4835046, 7357333, 22413863 ####[facility] [address] [place], [place] [address]bGGDxt 76-75-9214DPV/1.73 sq M.predicted among non-blacks MDRD (S/P/Bld) [Vol rate/Area]mL/min/{1.73_m2}Normal>=59Fisher [facility] Samaritan HospitalComment on above:Order Comment: Order added by Discern Expert.Performed By: #### 11935638, 4449935, 3949628, 4704356, 8968873 #### [facility] [address] [place], [place] [address]Gunegp Medicine Office/Clinic Noteon 79-89-4070Jsmzxl Medicine Office/Clinic NoteChief Complaint left ear pain, swollen cheeks, facial pain, sore throat, lump in throat HPI Staff Jessica is a 37 year old female here for left ear pain that radiates into jaw and lump in throat,sore throat, cheeks are swollen, dizzy symptoms for a few weeks, getting worse was seen at the dentist for a tooth infection and they did not find anything History of Present Illness I have reviewed and verified the staff HPI to be accurate for this encounter. Portions of this record have been created with voice recognition software. Occasional wrong-word or?fgmbf-g-qwkz? substitutions may have occurred due to the inherent limitations of voice recognitionsoftware. 37 yo female presents today with cc of left-sided ear pain. Patient states she has had intermittentleft-sided ear pain which will radiate into the [...] infection. States that everything checked out okay there.She states she has not follow-up with primary care provider in regards to the symptoms in the last month as she states has been very difficult to get into see her primary care provider. Patient does know she has been working with her BATCH OPERATOR in regards to blood test and lab work related to fluctuations in hormones in regards to seeing if she is premenopausal or postmenopausal. States she has not had any recent lab work otherwise. She denies any sore throat or throat pain but states the lump of the left anterior throat states the left-sided ear pain and discomfort which she states has been moreconstant especially more irritating in the last 4 days. She denies any drainage from the left ear denies any runny stuffy nose cough or cold-like symptoms or recent illness. She denies any abdominal pain nausea vomiting or diarrhea. She did note an episode of dizziness in which she was wondering ifis related to her ear discomfort and she [...] lost some weight. But again is seeing BATCH OPERATOR in regards to these fluctuations denies [...] cervical lymphadenopathy. Trachea is midline. Concern for thyroidnodule of the left anterior neck with palpation [...] follow closely with prim (more content not included)...[facility] HospitalComment on above:Result Comment: Electronically Signed By: Shoaib BRADSHAW, Filiberto Pulliam\.br\Date and Time Signed: 06/20/2321:08 ESTPatient Educationon 06-20-2023 Patient EducationENT Otitis Media With Effusion, Adult Otitis media with effusion (OME) is inflammation and fluid (effusion) in the middle ear without having an ear infection. The middle ear is the space behind the eardrum. The middle ear is connected tothe back of the throat by a narrow [...] signs and symptoms of the condition. Your providerwill also do a physical exam to check [...] weeks. Home care treatment may include: ? Wgyx-spi-obzvsch pain relievers. ? A warm, moist cloth placed over the ear. Severe cases may require a procedure to insert tubes in the ears (tympanostomy tubes) to drain the fluid. Follow these instructions at home: ? Take fwbf-dzb-dkdormh and prescription medicines only as told by [...] provider. Document Revised: 10/04/2021 Document Reviewed: 10/04/2021 [employer] Patient Education ? 2022 [employer]. Endocrinology Thyroid Nodule A thyroid nodule is an isolated growth of thyroid cells that forms a lump in the thyroid gland. Thethyroid gland is a butterfly-shaped gland found in the lower front of the neck. It sends chemical messengers (hormones) through the blood to all parts of the body. These hormones are important in regulating body temperature and helping the body use energy. Thyroid nodules are common. Most are not cancerous (are benign). You may have one nodule or severalnodules. There are different types of thyroid nodules. They include nodules that: ? Grow and fill with fluid (thyroid cysts). ? Produce too much thyroid hormone (hot nodules or hyperthy (more content not included)...[facility] HospitalMRI Spine Cervical w/o Contraston 86-64-8197AYL Spine Cervical w/o ContrastExam Date/Time: 06/09/2023 08:41 EST Reason for Exam: [...] Tatum MD, V. Transcribed by: YAMINI Technologist: CARPI Technical Comments NoneNormMemorial Health System Marietta Memorial HospitalConsent for Treatmenton 04-92-7214Lubvpiu for [id number]#1.00TIFSumma Health Barberton CampusRAD - MRI Screening Formon 97-22-8071MVZ - MRI Screening Form [id number]#1.00TIFSumma Health Barberton CampusPhysician Orderon 37-29-8727Viwxyjoqg Order [id number]#1.00TIFSumma Health Barberton CampusCHEMISTRYOrdered By: SYSTEM SYSTEM on 06-13-6171Ghbx T4 [Mass/Vol]0.66 ng/dLNormal0.58 - 1.64 ng/dLINTEGRIS MIAMI [facility]OSP[facility] [place] RemisolGlucose post fast [Mass/Vol]90 mg/dL Zbkaeh98 - 99 mg/dLINTEGRIS MIAMI HOSPITAL – [place] RemisolTSH Qn2.54 m[IU]/LNormal0.34 - 5.60 mcIU/mLINTEGRIS [facility]AMI HOSPITAL – [place] RemisolReference Laboratory TestingOrdered By: Generated DomainUser on 63-70-8372GYJV-CoV-2 (COVID-19) RNA KEITH+probe Ql (Resp)Not detectedInvalid Interpretation CodeNot DetectedINTEGRIS MIAMI HOSPITAL – [place]AM[facility] SendOutsSSComment on above:Result Comment: This nucleic acid amplification test was developed and its performance characteristics determined by [employer]. Nucleic acid amplification tests include RT-PCR and [...] detected) result in this assay. Performed at: [address] [id number] PhD Mahnaz Conklin Vital Signs Date TimeVital SignValuePerforming JurhxtefeBxxkwrwa59-45-5562 08:25-0400Body ztiidm234.64 Boris Mcknight MD Work Phone: [facility]09-29-2025 08:25-0400 Body mass index (BMI) [Ratio]21.6 kg/i1IdoooRuben Mcknight MD Work Phone: 1([phone] [place], [place] [address]1009-29-2025 08:25-0400 Body ckzupj28.78 kgRuben Mcknight MD Work Phone: [phone])225-[address] [place], [place] 7880209-29-2025 08:25-0400 Diastolic blood adypivfz55 mm[Hg]Ruben Mcknight MD Work Phone: 1(591)168-[address] [place], [place] 7880209-29-2025 08:25-0400 Heart rate61 /minRuben Mcknight MD Work Phone: 1(900)515-[address] [place], [place] 7880209-29-2025 08:25-0400 Systolic blood mhfksadf221 mm[Hg]Ruben Mcknight MD Work Phone: [phone])[address]03-31-2025 08:29-0400 Body .6 cmAngsachin Alva LITIGATION ASSOCIATE Work Phone: noThe [facility] LouisKkjfbqswzp32-63-1798 08:29-0400Body mass index (BMI) [Ratio]21.63 kg/q1EshkvpPetra Calle LITIGATION ASSOCIATE Work Phone: [facility] HospitalZigbbhisxn26-53-9555 08:29-0400Body gltkco93.78 kgXiomarakeysha Rosasr LITIGATION ASSOCIATE Work Phone: noThe [facility] LouisUwxcrrzamb43-17-1044 08:29-0400Diastolic blood dhtehehy90 mm[Hg]Petra Calle LITIGATION ASSOCIATE Work Phone: noThe [facility] LouisPrdzpcmiwx50-58-4612 08:29-0400Heart rate65 /min Petra Calle LITIGATION ASSOCIATE Work Phone: [facility] HospitalKjokmcknwt20-51-8598 08:29-9229SfT7% (BldA) [Mass fraction]96 %Petra Calle LITIGATION ASSOCIATE Work Phone: noThe [facility]. LouisGltuyfayms40-31-5668 08:29-0400Systolic blood hgjwaipv604 mm[Hg]Petra Calle LITIGATION ASSOCIATE Work Phone: noThe [facility] LouisUkondifylj32-70-6105 11:32-0500Body mass index (BMI) [Ratio]21.47 kg/g0OdyqxKraig Goodman MD Work Phone: noThe [facility] LouisMujdvfsdgr69-37-9737 11:32-0500Body orisgo12.33 kgKraig Goodman MD Work Phone: NOThe [facility] LouisQipsckmwvh54-71-6648 11:32-0500Diastolic blood wuntxrdv82 mm[Hg]Kraig Goodman MD Work Phone: NOThe [facility] LouisYozfmrlecp22-65-3780 11:32-0500Systolic blood toimazvg073 mm[Hg]Kraig Goodman MD Work Phone: [facility] HospitalRnrebhyjdh76-02-2509 08:21-0400Body uavyxx869.6 cmAfortino Calle LITIGATION ASSOCIATE Work Phone: NOThe [facility]. LouisHoczmeoicy93-67-7211 08:21-0400Body mass index (BMI) [Ratio]21.63 kg/y4WaxdhhPetra Calle LITIGATION ASSOCIATE Work Phone: NOThe [facility]. LouisFykbcjtlsc78-13-1066 08:21-0400Body umpkzs73.78 kgPetra Calle LITIGATION ASSOCIATE Work Phone: [facility] HospitalJwcctyzqal00-36-2408 08:21-0400Diastolic blood mm[Hg]Petra Calle LITIGATION ASSOCIATE Work Phone: [facility] HospitalNulfhfvcvb04-73-7398 08:21-0400Heart rate76 /min Petra Calle LITIGATION ASSOCIATE Work Phone: NOThe [facility]. LouisZtktvspuue99-25-8817 08:21-0013PgJ2% (BldA) [Mass fraction]98 %Petra Calle LITIGATION ASSOCIATE Work Phone: [facility] HospitalOqdmsqgjst68-33-3192 08:21-0400Systolic blood hovhojtm755 mm[Hg]Petra Calle LITIGATION ASSOCIATE Work Phone: NOThe [facility]. LouisWefmnuonjc45-34-9772 08:30-0400Body .6 cmMarta Puente MD Work Phone: NOThe [facility]. LouisYnzbrjwnko64-69-4638 08:30-0400Body mass index (BMI) [Ratio]21.79 kg/z3PscvpeMarta Puente MD Work Phone: [facility] HospitalBwbjisszcy81-45-6676 08:30-0400Body xwmpin71.24 kgMarta Puente MD Work Phone: [facility] HospitalJuewjnnhpj63-32-4411 08:30-0400Diastolic blood ezkyhapo87 mm[Hg]Marta Puente MD Work Phone: [facility] HospitalDthylfdfst78-26-2255 08:30-0400Systolic blood mm[Hg]Marta Puente MD Work Phone: [facility] HospitalIwduzmkzip60-50-7157 12:45-0400Blood Pressure LocationPreet Gudimella [phone]-Ydaxy[address] [place] [address] 11-12-2023 12:45-0400Diastolic blood xootkjmr47 mm[Hg]Matt Gudimella 041-9061Prcnje-Thqdn[address] [place] [address] 11-12-2023 12:45-0400Heart rate72 /minPreet Gudimella 460-7464Vzszxp-Zvagz[address] [place] [address] 11-12-2023 12:45-8582TrL2% (BldA) [Mass fraction]99 %Matt Gudimella 943-5148Kwlkur-PsfeqSt. Rita'S Hospital 11-12-2023 12:45-0400Systolic blood qzkpqeyp736 mm[Hg]Matt Gudimella 313-0574Loiovk-XcnqoSt. Rita'S Hospital 10-07-2023 10:22-0400Blood Pressure LocationChbraulio MCKNIGHT 844-8951Oqdwfe-MddsgUniversity Hospitals [facility] 10-07-2023 10:22-0400Body ffyticogtrh35.88 [degF]Nancy MCKNIGHT 464-4368Jxdcxr-MjqsfUniversity Hospitals [facility] 10-07-2023 10:22-0400Diastolic blood evgovmgy18 mm[Hg]Nancy MCKNIGHT 766-4175Hdtsyp-Cojkf[address] [place] [address] 10-07-2023 10:Heart rate66 /minChristopher JUAN LUIS 202-8844Gzsrla-SnvwjUniversity Hospitals [facility] 10-07-2023 10:Respiratory rate16 /minChristopher JUAN LUIS 695-4868Ceqcmq-RvclgUniversity Hospitals [facility] 10-07-2023 10:3352ZfC9% (BldA) [Mass fraction]100 %Rosendodeandrasanjeev MCKNIGHT 855-9469Jjivmu-TvaobUniversity Hospitals [facility]point [facility] 10-07-2023 10:040Systolic blood qqodksyl730 mm[Hg]Nancy MCKNIGHT 668-1969Iajgwy-AgtdcUniversity Hospitals [facility]point [facility] 08-04-2023 11:27-0500Body .6 cmMarta Puente MD Work Phone: [facility] HospitalFqrabwnijz12-84-9857 11:27-0500Body mass index (BMI) [Ratio]21.14 kg/b4TcpgopMarta Puente MD Work Phone: [facility] HospitalKvyocxoncu03-44-7606 11:27-0500Body dxiedl68.42 kgMarta Puente MD Work Phone: 1([phone] 574-552390 [address] StreetJxothdzocm58-35-6123 11:27-0500Diastolic blood lxmpwcer70 mm[Hg]Marta Puente MD Work Phone: [facility] HospitalQluoslsavz27-19-3185 11:27-0500Systolic blood svoegxwi836 mm[Hg]Marta Puente MD Work Phone: [facility] HospitalUogubayzkj91-58-4286 13:41-0500Blood Pressure LocationPredinesh Bass 742-1920Zmniyg-MouaxSt. Rita'S Hospital 07-24-2023 13:41-0500Diastolic blood yvybbpxi86 mm[Hg]Matt Kali 788-6051Yfixrm-PmkzmSt. Rita'S Hospital 07-24-2023 13:41-0500Heart rate86 /minPreet Gudimella 253-7768Zqwhkr-EojbrSt. Rita'S Hospital 07-24-2023 13:41-3570FyQ1% (BldA) [Mass fraction]98 %Matt Gudimella 414-3671Knyrew-QijwkSt. Rita'S Hospital 07-24-2023 13:41-0500Systolic blood ntokdbyt080 mm[Hg]Matt Gudimella 080-2471Ueufhi-TnodaSt. Rita'S Hospital 07-18-2023 16:16-0500Blood Pressure LocationChristopher BROWN 748-7410Dufmiw-Czhkd[address] [place] [address] 07-18-2023 16:16-0500Diastolic blood wyvbxxjt96 mm[Hg]Christdeandraer BROWN 093-6946Srmbyd-Aeufr[address] [place] [address] 07-18-2023 16:16-0500Heart rate92 /minChristopher BROWN 505-8852Riqpjj-Wumnb[address] [place] [address] 07-18-2023 16:16-0500Respiratory rate16 /minChristopher BROWN 073-0784Luzlwg-BapbyUniversity Hospitals Tripoint [facility] 07-18-2023 16:16-0847XpU3% (BldA) [Mass fraction]98 %Christopher BROWN 166-1725Sfcenj-Rwekd[address] [place] [address] 07-18-2023 16:16-0500Systolic blood puxdpojl14 mm[Hg]Christopher BROWN 054-0424Pbwfwp-Ooxmg[address] [place] [address] 06-24-2023 13:49-0500Blood Pressure LocationPreet Gudimella 405-0933Moouvo-FoadiSt. Rita'S Hospital 06-24-2023 13:49-0500Diastolic blood dcanugot28 mm[Hg]Matt Gudimella 826-9436Vicrwu-AwbbeSt. Rita'S Hospital 06-24-2023 13:49-0500Heart rate89 /minPreet Guannamella 702-5139Fxetbt-SzleuSt. Rita'S Hospital 06-24-2023 13:49-8308XwZ1% (BldA) [Mass fraction]97 %Matt Gudimella 262-5887Qxjavf-FidudSt. Rita'S Hospital 06-24-2023 13:49-0500Systolic blood xothmjmh61 mm[Hg]Matt Bethmella 033-6667Eyvquu-DiaqnSt. Rita'S Hospital 06-20-2023 18:43-0500Blood Pressure LocationJamie Shoaib 566-5993Xzqdqs-VpivxMercy Health Convenient Iiae95-97-0715 18:43-0500Body txahzpnymux62.06 [degF]Filiberto Shoaib 378-6798Zoncln-TyfthMercy Health Convenient Ovnc48-08-8584 18:43-0500Diastolic blood lcddqgek41 mm[Hg]Filiberto Cramer 131-4747Cvrkea-AyvgyMercy Health Convenient Zkgx22-08-4906 18:43-0500Heart rate96 /minJamie Shoaib 249-6043Rymgyq-ZjelzMercy Health Convenient Cema38-90-7451 18:43-6046SjQ5% (BldA) [Mass fraction]98 %Filiberto Cramer 661-0779Kgofya-VtcelMercy Health Convenient Hrzp56-75-8448 18:43-0500Systolic blood fywzcvbb525 mm[Hg]Filiberto Manuelpsey 096-4856Timstr-EjzycMercy Health Convenient Xbcd02-68-9527 11:20-0400Body gsaqck646.64 cmDajames [employer]oco Other [employer] Other 07-08-2022 11:20-0400Body mass index (BMI) [Ratio] 21.14 kg/m2Dajames [employer] Other [employer] Other 07-08-2022 11:20-0400Body bmaafc20.42 kgDale [employer]oco Other [employer] Other 10-26-2021 15:40-0400Body koncps279.64 cmDale Tinoco Other [employer] Other 10-26-2021 15:40-0400Body mass index (BMI) [Ratio] 21.14 kg/m2Dale Tinoco Other [employer] Other 10-26-2021 15:40-0400Body keeqbm40.42 kgDale Tinoco Other [employer] Other 12-09-2020 15:50-0500Body .96 kgLaMercer County Community HospitalVicino [place], IP31-35-0394 15:50-0500BP Tiqgntmwa48 mm[Hg][facility] HospitalDilithium Networks [facility], HI26-35-7538 15:50-0500BP Hldrirtw891 mm[Hg][facility] HospitalDilithium Networks [facility], IG57-12-3359 15:50-0500Pulse (Heart Rate)67 /minSuburban Community Hospital & [facility], PC93-68-5721 15:50-0500Pulse Qxqeqvwr867 %[facility] HospitalDilithium Networks [facility] HospitalVicino [place], ND36-90-8831 15:50-0500Respiratory Rate20 /minSuburban Community [facility] & [facility], [place] Encounters Encounter DateEncounter TypeCare ProviderFacilityStart: 05-02-2025 End: 00-47-6286tzcozscuhfVjrqzmo V. GiedraitisFacility:FTMCStart: 03-21-2025 End: 46-19-6194gnkkvjfrklTshjh R Brown MD Work Phone: [facility] Work Phone: Start: 03-21-2025 End: 94-64-3649Uowqbdb encounter procedurePetra Eaton [facility] Neurology [facility] Work Phone: Start: 12-20-2024 End: 02-54-1624tpdmdrnmkuMilvdna Vytautas Giedraitis MDFacility:PM [facility] Start: 09-20-2024 End: 92-16-7069Qquyye Ari Calle LITIGATION ASSOCIATE Work Phone: aNA BELLEVUEStart: 09-20-2024 End: 59-18-5344Uwqqwu Ari Calle LITIGATION ASSOCIATE Work Phone: aNA BELLEVUEStart: 09-20-2024 End: 76-57-0564nefjumshqgSXBRRC GILLMORNot AvailableStart: 09-20-2024 End: 16-09-5372Dzsupx outpatient visit 15 minutesPetra Calle LITIGATION ASSOCIATE Work Phone: ana BELLEVUEComment on above:Migraine without aura and without status migrainosus, not intractable (CMS/HCC) (Primary Dx); Neck pain; ParesthesiasStart: 09-20-2024 End: 82-92-2376spqdsrfkdoYvolejl Vytautas Giedraitis MDFacility:PM [facility] Start: 08-23-2024 End: 99-41-7725abkavxqhgmJpepjtq Vytautas Giedraitis MDFacility:PM Richie Start: 08-02-2024 End: 20-33-3469Tcqbbp Irma Goodman MD Work Phone: noms SWS OBStart: 08-02-2024 End: 59-37-9129Hzwxha Irma Goodman MD Work Phone: noms SWS OBStart: 08-02-2024 End: 39-71-8332Hoyaiz outpatient visit 25 minutesKraig Goodman MD Work Phone: noms SWS OBComment on above:Menopausal symptoms; Vaginal Pap smear; Screening for HPV (human papillomavirus); Other screening mammogramStart: 08-02-2024 End: 38-96-5301crtjqbenukKYZXYTommy Suarez AvailableStart: 08-02-2024 End: 37-55-9451bncylfisanPusnxlg Vytautas Giedraitis MDFacility:[facility] Start: 07-21-2024 End: 18-38-8131Dnrtsnrpj encounterKraig Goodman MD Work Phone: noms SWS OBStart: 05-22-2024 End: 62-41-2303JhktswJaafa J Printy MD Work Phone: noms NB OBComment on above:Menopausal symptomsStart: 05-10-2024 End: 52-69-8807tpklxxwdnxGITGX F SABBAGHFacility:FTMCStart: 05-10-2024 End: 19-82-9666Iytdfgc encounter procedureSUHAS MCGHEE [facility] Start: 04-06-2024 End: 89-08-9858zezgameyguQUHTND GILLMORNot AvailableStart: 04-06-2024 End: 03-53-3558Izfuqq outpatient visit 15 minutesAngekeysha Calle NP Work Phone: noms NE NEUROComment on above:Cervical radiculopathy (Primary Dx); Lumbosacral radiculopathy; Paresthesias; Migraine without aura and without status migrainosus, not intractable (CMS/HCC); MyalgiaStart: 04-05-2024 End: 88-60-0241rcnsfepvbxUflqnrp Vytautas Giedraitis MDFacility:PM Richie Start: 03-29-2024 End: 15-59-1663snpdxotypoJkkhjbo Vytautas Giedraitis MDFacility:[facility] Start: 03-08-2024 End: 56-19-0699Ombplb flowsheetNicole Ralf DO Work Phone: noms NE NEUROStart: 03-08-2024 End: 95-80-2794Fusrrk flowsheetNicole Ralf DO Work Phone: noms NE NEUROStart: 03-08-2024 End: 08-98-4524Qyxcxzm encounter procedureNicole Ralf DO Work Phone: noms NE NEUROComment on above:Lumbosacral radiculopathy (Primary Dx); Low back pain at multiple sites; Paresthesia; Sacral radiculopathyStart: 03-08-2024 End: 01-79-1317nszcltcplbJOXCFL DANNERNot AvailableStart: 03-01-2024 End: 80-20-1120Xinpok flowsheetMarta Puente MD Work Phone: noms ENT NORWALKStart: 03-01-2024 End: 25-62-4876Iumnqw Sandra Puente MD Work Phone: noms ENT NORWALKStart: 03-01-2024 End: 17-61-2836Zeuomv outpatient visit 15 minutesMarta Puente MD Work Phone: noms ENT NORWALKComment on above:Mass of thyroid region (Primary Dx)Start: 03-01-2024 End: 71-49-5068emianmvwmzOBOBZW Michele CHIUMISNot AvailableStart: 01-13-2024 End: 57-21-0038ajjerdmoixXqgjrn H TimmisFacility:FTMCStart: 01-13-2024 End: 76-60-7712Cjsyjgw encounter procedureMarta Puente [facility] Start: 01-13-2024 End: 05-03-4819Zzutcoevh Result EncounterMarta Puente MD Work Phone: noms External Department UnsolicitedStart: 01-13-2024 End: 00-27-2885Pyznhlwem Result EncounterMarta Puente MD Work Phone: noms External Department UnsolicitedStart: 11-12-2023 End: 55-24-9200zbbkujdvfiVvoje GudimellaFacility: Start: 11-12-2023 End: 56-65-8972Llxvwcv encounter procedurePreet Gudimella 310-6205Qxoghc-HrevdSt. Rita'S Hospital Start: 10-21-2023 End: 00-87-3225Ijkrmsd encounter procedureSUHAS Charley SUMI [facility] Start: 10-21-2023 End: 17-43-3394hbwngxyowwVHLSH Charley STEVEMAEGANFacility:FTMCStart: 10-07-2023 End: 40-77-9558bhgwuahokmDgdyycayxdo BROWNFacility: tart: 10-07-2023 End: 35-06-4565Rlfzfqf encounter procedureChristopher JUAN LUIS [phone]-XjbrrUniversity Hospitals Tripoint [facility] Start: 09-10-2023 End: 93-56-7963coapvznvuoNERCK Charley STEVEMAEGANFacility:FTMCStart: 09-10-2023 End: 55-62-3805Utkzkei encounter procedureSUHAS Charley SUMI [facility] Start: 20-99-8414Qohmco flowsheetMarta Puente MD Work Phone: NOPC ENT NORWALKStart: 15-36-7765Kuyfja flowsheet Marta Puente MD Work Phone: NOFF ENT NORWALKStart: 08-04-2023 End: 76-99-2002Yxngjo outpatient visit 15 minutesHidenis Puente MD Work Phone: NOBE ENT NORWALKComment on above:Mass of thyroid region (Primary Dx); Hyperthyroidism (CMS/HCC)Start: 25-90-7374zwenmpjrfpCjvfunpakgf BROWNFacility: ardStart: 07-24-2023 End: 69-51-7520halzlyzdzqEqnbi GudimellaFacility: Start: 07-24-2023 End: 25-79-1042Itjmbnw encounter procedurePreet Gudimella [phone]-QdnkjSt. Rita'S Hospital Start: 07-18-2023 End: 75-77-8889tjbffwnvorTpypfqkqoom BROWNFacility: ardStart: 07-18-2023 End: 84-48-1395Sppewfo encounter procedureChristopher MCKNIGHT 004-0144Uerwrq-WnxzfUniversity Hospitals Tripoint Medical Center Start: 07-18-2023 End: 41-79-3537gytpettgbfVviyv GudimellaFacility:MCStart: 07-18-2023 End: 10-69-2858Ztgsjhg encounter procedurePreet Gudimella [facility] Start: 07-14-2023 End: 47-49-8738Fmxepykpo Result EncounterHidenis Puente MD Work Phone: noms External Department UnsolicitedStart: 07-14-2023 End: 17-20-7271Qrypeaibl Result EncounterHidenis Puente MD Work Phone: noms External Department UnsolicitedStart: 07-14-2023 End: 47-84-8798feekrdtaegWD Ruben Mcknight Work Phone: [facility] Work Phone: Start: 07-14-2023 End: 40-39-7116Wefibndn ReferredMD Ruben Mcknight Work Phone: [facility]-LAB Path Spec Richie HospStart: 07-08-2023 End: 77-45-3078ntqifdpaytNzmjs GudimellaFacility:FTMCStart: 07-08-2023 End: 52-22-5905PdsoifroiRlcqx Gudimella [facility] Start: 31-34-5671yvhbicqkraIttgo GudimellaFacility:[facility] HospitalStart: 06-27-2023 End: 66-04-9468kdbvqjzfivGpasm GudimellaFacility:FTMCStart: 06-27-2023 End: 73-22-0690Qipclxq encounter procedurePreet Gudimella [facility] Start: 06-24-2023 End: 24-76-8503nmvmcrautfTtevl GudimellaFacility:[facility] HospitalStart: 06-24-2023 End: 63-63-4704Kvynyll encounter procedurePreet Gudimella [phone]-DwwccSt. Rita'S Hospital Start: 06-21-2023 End: 78-39-3715ygffdfeeosAdvfz M. DempseyFacility:FTMCStart: 06-21-2023 End: 04-12-1618Fhwnijq encounter procedureFiliberto Cramer [facility] Start: 06-20-2023 End: 79-20-2912piwiykkbuvWhxny M. DempseyFacility:CC CharlakStart: 06-20-2023 End: 83-57-4323Alevcuv encounter procedureFiliberto Cramer [phone]-NsniiEast [facility] Start: 06-09-2023 End: 99-93-0891lvpceqdbrnBpvxqygfpemm LakshmipathyFacility:FTMCStart: 06-09-2023 End: 31-32-1907Xerzmqf encounter procedureNarendranath Lakshmipathy [facility] Start: 04-28-2023 End: 47-48-1627Agbpppr encounter Daquan POTTS [facility] Start: 11-05-2022 End: 49-31-1236orheswnolhJHUQBOSOYOXI LAKSHMIPATHY .Facility:G0Uycie: 10-22-2022 End: 77-04-6041uyibsftnnsGP DOCTOR MISCFacility:A7Webep: 10-01-2022 End: 13-40-4861xvzhwuseimQVMX SOLIS .Facility:X2Yxsnr: 08-27-2022 End: 76-47-9263ejgruskjbeQbjb [employer] Other [place] [employer] Other start: 21-28-3577Ymlolcjav encounterDaLivingston [facility] NeurosurgeryStart: 06-11-2022 End: 36-38-5180dsksbzjybkRU HERB S RIVERO .Facility:R2Aaghn: 05-28-2022 End: 34-84-9279mchnazefxiWT HERB S RIVERO .Facility:D0Oyabn: 03-05-2022 End: 93-83-6710zgkolbptidJL HERB S RIVERO .Facility:L9Gabqa: 12-28-2021 End: 28-40-1753ntyivwsxxbMmhm [employer] Other [employer] Other start: 34-15-8138Hsnjoh outpatient visit 15 minutes [facility] NeurosurgeryStart: 12-03-2021 End: 81-52-2644Qrtpcrl encounter procedureKraig Goodman [facility] Start: 11-08-2021 End: 06-16-6341sfjptztuezIF HERB S RIVERO .Facility:K3Dpsad: 07-13-2021 End: 51-85-8563Bwnmauo encounter procedureChrisyonatan MCKNIGHT [facility] Start: 48-88-6867Pymiji outpatient visit 15 minutesDale AlejandrinaMaury Regional Medical [facility], [place] NeurosurgeryStart: 05-31-2020 End: 57-28-3383Fsrimbifa department patient visitLARRTrent GHOSHProvidence Hospitaltart: 05-31-2020 End: 78-18-8489Wplcqebrq department patient visitLasophia Ghosh Work Phone: [facility] EDComment on above:Chest wall pain (Primary Dx)Start: 12-30-2018 End: 78-03-0671Sjnhbgg encounter procedurePROVIDER UNKNOWNFacility:[facility] Procedures DateProcedureProcedure DetailPerforming ClinicianStart: 03-08-2024 End: 55-77-6018Ypftis emg ea extremty w/paraspinl area completeNicole Ralf DO Work Phone: Start: 33-22-6612FH THYROIDHilary Michele Puente MD Work Phone: Start: 58-81-7886GP BIOPSY THYROIDMarta Puente MD Work Phone: Start: 33-77-3394Kkhg biopsy needle, device (physical object)Nancy MCKNIGHT comment on above:thyroid noduleStart: 06-18-2021 MammographyAngela Jennifermomikey LEON Work Phone: Start: 36-16-3838Haqkq anesthetic sacral epidural blockChrisyonatan MCKNIGHT comment on above:@ [facility] per pain mgmtStart: 93-67-3435Ice routine ecg w/least 12 lds w/i&rLARRY TINCHERStart: 11-33-7273Vgr routine ecg w/least 12 lds w/i&rLarry Angelito Ghosh Work Phone: Start: 27-61-2401Rhetzrubr fusion of lumbar spine by anterior approachChbenignowaldoher MCKNIGHT comment on above:FRMCStart: 20-28-8795Xonewls of sebaceous cystChristopher MCKNIGHT comment on above:Right inner thighStart: 06-23-2006 Augmentation mammoplastyChbraulio MCKNIGHT H/O: hysterectomyS/P laparoscopic hysterectomyMD Ruben Juan Luis Work Phone: comment on above:Problem List clean-up per request of Phys. EHR Cmtelaparoscopy 4Chrmarylueduardo MCKNIGHT comment on above:2014 Dr. Redd- endometriosis laparoscopy 5Ctodd MCKNIGHT comment on above:2014 Dr. Golden endometriosislumbar microdisectomy 5Cpreetsanjeev JUAN LUIS comment on above:10/2017 [facility] 6Chrtodd MCKNIGHT comment on above:10/2017 Dr. Barnes @ [facility] 6 Christophsanjeev MCKNIGHT comment on above:per Dr. Glez 08/2017wisdom teeth extractedChbraulio MCKNIGHT Plan of Treatment DateCare ActivityDetailAuthorStart: 62-16-2406Ddgwmevnx for malignant neoplasm of cervixNOMS HealthcareStart: 07-15-2025 End: 79-79-2795TWK Breast - bilateral screeningBilateral screening mammogram with tomosynthesis Imaging Routine Other screening mammogram Expected: 07/15/2025, Expires: 09/30/2025NOMS HealthcareComment on above:Expected: 07/15/2025, Expires: 09/30/2025Start: 03-21-2025 End: 45-36-0518Atdzifr encounter hbrjdeaqv64/29/2025 8:20 AM EDT Office Visit LISBETH LEMONS [address] [place] [id number] Petra Calle, LITIGATION ASSOCIATE [address] [place], [place] LISBETH BELLEVUEStart: 09-20-2024 End: 70-60-6345Wmmoufb encounter procedureNOMS NE NEUROStart: 2024 Screening for malignant neoplasm of breastMammogramNOMS HealthcareStart: 08-02-2024 End: 96-97-2236Kcenreq encounter procedureNOMS SWS OBComment on above:Arrived Start: 04-28-2024 End: 18-87-3773Yswpxei encounter emcccmozg51/06/2024 9:40 AM EST Office Visit [facility] [address] [place] [phone] Suhas Mcghee MD [address] [place] [address] [facility] ENDOCRINOLOGYStart: 04-06-2024 End: 52-39-4773Wftqcot encounter qyoktzvwq25/15/2024 8:20 AM EDT Office Visit [facility] [address] [place] [address] Petra Calle, LITIGATION ASSOCIATE [address] [place], [place] [facility] NE NEUROStart: 03-08-2024 End: 14-13-3909Tbdmtyg encounter procedureNOMS NE NEUROComment on above:Arrived Start: 03-01-2024 End: 42-50-7767Cgwhunp encounter qyngrcsjp26/09/2024 8:30 AM EDT Office Visit [facility] [place] [address] [place] [address] Marta Puente MD [address] [facility] [address] [place] [address] ArrivedNOMS ENT NORWALKComment on above:ArrivedStart: 70-14-3958Kmwgfvlom vaccinationInfluenza Vaccine (#1)[facility]OM HealthcareStart: 08-04-2023 End: 89-13-9162Hnnbieg encounter hldgbynzc80/12/2024 11:20 AM EST [facility] [address] [facility] [address] [place] [address] Marta Puente MD [address] [facility] [address] [place] [address] ArrivedNOMOHANSIC STATE HOSPITALomment on above:ArrivedStart: 64-60-1453Bsqbiwzsl vaccinationInfluenza Vaccine (#1)NOM HealthcareStart: 05-04-6320Rotocjeks vaccinationFlu vaccine (#1)[facility], [place]Start: 93-34-3476Nlwaifltk for malignant neoplasm of cervixPap SmearST. MARK'S H[facility]ITAL HealthcareEKG 12 LeadEKG 12 Lead ECG STAT 05/31/2020 4:01 PM [facility], [place]IGP, APT HPV,RFX 16/18,45IGP, APT HPV,RFX 16/18,45 Lab Routine Vaginal Pap smear Screening for HPV (human papillomavirus) Ordered: 08/02/2024[facility] Work Phone: comment on above:Ordered: 08/02/2024 Immunizations Immunization DateImmunizationNotesCare XugvjigyJdllenuy50-53-9145GRHMB-34, mRNA, LNP-S, PF, 30 mcg/0.3 mL dose; Translations: [Pfizer-BioNTech COVID-19 Vaccine] Nancy MCKNIGHT [facility] HospitalComment on above:Reason for Medication: Lwgliuuabgo14-54-6240QVUUN-19, mRNA, LNP-S, PF, 30 mcg/0.3 mL dose; Translations: [Pfizer-BioNTech COVID-19 Vaccine]Nancy MCKNIGHT [facility]oples HospitalComment on above:Reason for Medication: Fkzyrtciccv22-03-4669nzrnqqjsz, injectable, quadrivalent, contains preservativeChristopher JUAN LUIS [facility]10-24-2020influenza virus vaccine, unspecified formulationMarta Puente MD Work Phone: [facility] HospitalNlvxyursxd23-38-3987gfuhvwtoh virus vaccine, unspecified formulationChristopher JUAN LUIS [address] [place], [place] [address]10-01-2017influenza, injectable, quadrivalent, contains preservativeMarta Puente MD Work Phone: [facility] HospitalBcawbcgziv24-40-4923nlumgmv toxoid, reduced diphtheria toxoid, and acellular pertussis vaccine, adsorbedChristopher JUAN LUIS [facility]Comment on above:Reason for Medication: Other (see comment)92-30-3047cmpjgsf toxoid, reduced diphtheria toxoid, and acellular pertussis vaccine, adsorbedJamie Shoaib [phone]-JypksMercy Health [facility] Yyyb05-94-5107 hepatitis A and hepatitis B vaccineJamie Shoaib [phone]-IdoueMercy Health Convenient Ieoo11-85-3603 measles, mumps and rubella virus vaccineJamie Shoaib [phone]-SdnasMercy Health Convenient CareNEGATED: Highlighted row has not occurred!03-89-8680fxaqwytwg virus vaccine, unspecified formulationChristopher [facility] [phone]-CiundMercy Health [facility] NEGATED: Highlighted row has not occurred!43-45-9657pcpyngnsi virus vaccine, unspecified formulationJamie Shoaib [phone]-FgvkmMercy Health Convenient Care Payers DatePayer CategoryPayerPolicy [id number]-[id number] 2024Unknown2023Medicaid [id number] [id number] 2006 Private Health [id number] 2.840.1.077791.3.57[id number] 2.840.1.737867.3.579.2.62256-65-3922Vtiosft3831160 2.840.1.122015.3.579.2.50575-51-3819Fodpscu7313833 2.840.1.351315.3.579.2.64696-65-9626Wdqeati0071699 2.840.1.551829.3.579.2.80764-54-1573Xrbcdth6737540 2.840.1.377933.3.579.2.22396-05-0283Gkemxsm6897325 2.840.1.927371.3.579.2.12874-36-8051Ifutpbu0121384 2.840.1.935406.3.579.2.49221-43-5349Hplginb6714578 2.840.1.964370.3.579.2.93202-98-8346Txtsxvh54101931 2.840.1.006856.3.579.2.20466-35-2526Grkcaxo26102368 2.840.1.199433.3.579.2.31027-30-8647Ycfhoqh71165354 2.840.1.613048.3.579.2.29432-40-7488Rxpbchg61713999 2.840.1.095759.3.579.2.70035-65-3487Myulcrp50758546 2.840.1.714590.3.579.2.81155-17-4194Xpyomnx76555166 2.840.1.088244.3.579.2.56035-52-4650Zcrorka21448078 2.840.1.284716.3.579.2.04654-33-3163Siejdcr58191453 2.840.1.139750.3.579.2.91903-45-1565Rglgplt07438861 2.840.1.339693.3.579.2.49806-70-9221Fbwodqe36686610 2..1.817090.3.579.2.28792-31-4330Wskzucg47660842 2..1.600243.3.579.2.89535-52-1180Lezbreq46834533 2..1.957701.3.579.2.38725-74-0284Zujbbne85615461 2..1.753540.3.579.2.55248-38-5859Sldnebk49823683 2..1.638258.3.579.2.14889-19-5771Lmjwcap89429717 2..1.021423.3.579.2.30544-13-8016Hrepmdv21140910 2..1.866330.3.579.2.02557-93-3102Eyljrtx62242806 2..1.290243.3.579.2.63800-10-0838Wcmqkmi2521262 2.840.1.546504.3.579.2.357084-01-5024Ikoeyly7215561 2.840.1.971138.3.579.2.157904-73-3410Aduzptb5593738 2.16.840.1.124741.3.579.2.065299-88-3205Wpgxoac4874714 2.16.840.1.049790.3.579.2.282698-63-7767Lhntbrz1230342 2.16.840.1.116070.3.579.2.095066-55-4224Lrzdoax1198911 2.16.840.1.181142.3.579.2.421457-65-7028Lagocbc222862221 2.16.840.1.963999.3.579.2.94922-81-1579Ckuoeqm899295432 2.16.840.1.008961.3.579.2.30783-74-5076Edtsbvz404935730 2.16.840.1.040042.3.579.2.65526-65-8013Gwxjfhk457602843 2.16.840.1.317790.3.579.2.34369-57-3645Wkwvhfm967709752 2.16.840.1.549793.3.579.2.29106-61-8088Ldauoqz558357662 2.16.840.1.625748.3.579.2.96967-44-6630Qbmevch33574541 2.16.840.1.182493.3.579.2.33208-68-2885Dxcluwh Health Bkbaouhyk896693522 1.2.840.838894.1.13.239.2.7.3.512194.628Sxazfmz26236373 2.16840.1.779704.3.579.2.531 Social History DateTypeDetailFacilityStart: 05-31-2020 End: 24-03-2165Bxwatef smoking status NHISNeWVUMedicine [facility]: 05-31-2020 End: 06-14-5808Amvezmw use and exposureNever usedGalion Community Hospital [employer]- [place], [place]YSex Assigned At BirthNot on fileSelect Medical TriHealth Rehabilitation Hospital, KYExposure to SARS-CoV-2 (event) Not sureSelect Medical TriHealth Rehabilitation Hospital, KYStart: 24-62-4972Ljbqvyj smoking statusNeverUniversity Hospitals Geneva Medical Centertart: 07-03-2023 End: 08-50-4943Mtf Assigned At [facility] [employer] Other start: 56-99-6564Zbq Assigned At [facility] Clin[facility]art: 07-04-2023 End: 49-23-5701Vonougp intakeEx-drinker (finding)[facility] HealthcareStart: 07-03-2023 End: 80-65-2504Dicqxep of Social functionNOMS HealthcareHow often to you have a drink containing alcohol?2-3 time sa weekNOMS HealthcareHow many standard drinks containing alcohol do you have on a typical day?1 or 2NOMS HealthcareHow often do you have 6 or more drinks on 1 occasion?NeverNOWI HealthcareStart: 07-03-2023 Alcohol Commentcaffeine intake: 1-2 cups per day coffeeNOWI HealthcareStart: 02-12-7042Cihcrr identityIdentifies as female gender (finding)[facility] Healthcare Start: 13-74-3525Wtfmyh orientationHeterosexual (finding)NOM HealthcareSex Female (finding)[facility] Medical Equipment Procedure CodeEquipment CodeEquipment Original TextEquipment IdentifierDates Anterior lumbar interbody fusion (ALIF)STRATOFUSE DBM 5CCFDAStart: 12-06-2019 Anterior lumbar interbody fusion (ALIF)Orthopaedic bone screw, non- bioabsorbable, non-sterile+[id number] FDAStart: 63-15-9424Rfqlcmdi lumbar interbody fusion (ALIF)Orthopaedic bone screw, non-bioabsorbable, non-sterile +[id number] FDAStart: 13-78-5110Gdkerzcv lumbar interbody fusion (ALIF)Bone- screw internal spinal fixation system, non-sterile+[id number] FDAStart: 90-54-4586Lhtxxfls lumbar interbody fusion (ALIF)Bone-screw internal spinal fixation system, non-sterile+[id number] FDAStart: 40-32-4494Vgjzfpmn lumbar interbody fusion (ALIF)Spinal fusion graft kit ()[id number] FDAStart: 61-08-5835Obiqwfey lumbar interbody fusion (ALIF)Spinal bone screw, non-bioabsorbable()[id number] FDAStart: 69-58-0009Nrpuliun lumbar interbody fusion (ALIF)Metallic spinal fusion cage, non-sterile()[id number] FDAStart: 49-69-3342Znlcftja lumbar interbody fusion (ALIF)Bone-screw internal spinal fixation system, non-sterile +[id number] FDAStart: 80-65-8871Rxbyntkm lumbar interbody fusion (ALIF) STRATOFUSE DBM 5CCFDAStart: 12-06-2019 Functional Status KmvtHgnwqiitahEblyfyEiuaoycp79-72-4498Qlewavhcby StatusN/[facility]04-16-2024Functional StatusN/[facility]02-01-2024Functional StatusN/[facility]01-26-2024Functional StatusN/[facility]01-02-2024Functional StatusN/[facility]12-29-2023Functional StatusN/[facility] Clinical Notes 04-17-2021 to 09-20-2024 Note Date & DnugXzqtCjuqoqur97-79-1011 History of Present illness Narrative* Petra Calle, CAROLYN - 09/20/2024 8:20 AM EDT Images from the original note were not [...] aimovig due to insurance not covering it. [facility] does still helpto abort the migraines. She does need refills [...] TABLET BY MOUTH IN THE MORNING AND 1TO 2 TABLETS AT BEDTIME 39 year old [...] down to a 1 and then she didnot qualify. Unfortunately, the pain relief did not [...] from her neck and we will leave ourmeds as they are and let her continue [...] likely related to hyperthyroidism. She does see rod finisher for this. . TESTING AND RECORDS: We sent her to Dr. Claudia Gama who agreed that hardware should not be removed in lumbar area. Dr. Gama thought it would cause more harm than good to remove it. She has history of lumbar discectomyand fusion at L4/5. EMG BLE 07/02/2020 with evidence of bilateral S1 radiculopathy and greater on right. This would be level below fusion. Updated lumbar MRI 10/09/2020 with evidence of L5/S1 left laminectomy. There is post surgical changes. There is no significant change from prior CT scan. There isnoted mildly displaced fracture to right S1 superior articular process. Dr. Tinoco suggested a dorsal column stimualtor but she did not want to proceed with this. . . . Plan continue with rod finisher for thyroid Continue with Dr. Cottrell, pain mgt for back and neck Make sure she is doing regular exercises good posture and keeping her neck up May need a repeat MRI of the cervical spine pending her course Wear right foot splint as needed Continue Baclofen 10mg 1/2-1 twice a day prn and Zanaflex 4mg 1/2-1 po q hs (october trial 1 1/2 prn atbedtime) On hold- aimovig 140 mg subcutaneous every [...] were answered and they agreed with the treatmentplan. The patient is to call with any worsening of the condition or new symptoms. Return to clinic: 6 months documented in this encounterPike County Memorial HospitalSyfhkuyzyk24-19-9086 History of Present illness Narrative* Kraig Goodman MD - 08/02/2024 11:30 AM EST Images from the original note were not [...] Review Audit Reviewed by Helen Shaver MA ([employer]) on 08/02/24 at 1134 Medication Order Taking? Sig Documenting Provider Last Dose Status baclofen (Lioresal) 10 MG tablet [id number] TAKE 1 TABLET BY MOUTH TWICE DAILY (IN THE MORNING AND BEFORE BEDTIME) Petra Calle NP Active erenumab (Aimovig) 140 MG/ML injection [id number] INJECT 1 SYRINGE SUBCUTANEOUSLY ONCE EVERY MONTH Petra Calle NP Active estradiol (Estrace) 2 MG tablet [id number] Take 1 tablet (2 mg) by mouth Daily Kraig Goodman MD Active gabapentin (Neurontin) 600 MG tablet [id number] No Take 1 tablet by mouth Daily Kraig Goodman MD Taking Active methIMAzole (Tapazole) 10 MG tablet [id number] No Take 10 mg by mouth Marta Puente MD Taking Active OXcarbazepine (Trileptal) 300 MG tablet [id number] TAKE 1/2 (ONE-HALF) TABLET BY MOUTH IN THE MORNINGAND 1 TO 2 TABLETS AT BEDTIME Petra Calle NP Active Discontinued 08/02/24 113 Rimegepant Sulfate (Nurtec) 75 MG tablet dispersible [id number] Take 1 tablet by mouth Daily as needed (1 tablet at the onset of a migraine. do not repeat. no more than 2 days/week) Petra Calle NP Active tiZANidine (Zanaflex) 4 MG tablet [id number] Take 1 tablet (4 mg) by mouth at bedtime Petra Calle NP Active traMADol (Ultram) 50 MG tablet [id number] No TAKE 1 TABLET BY MOUTH THREE TIMES DAILY NEEDED. MUSTLAST 30 DAYS. Kraig Goodman MD Taking Active [...] Print requisition? Answer: Yes documented in this encounterNOThe Rehabilitation Institute of St. LouisYduswzywaf74-03-8056 Telephone encounter Note* Telephone Encounter - Shayy Phillips - 07/21/2024 1:33 PM EST error [facility] HospitalSovsmskdjd42-10-7012 Miscellaneous Notes* Telephone Encounter - Shayy Phillips - 07/21/2024 1:33 PM EST error documented in this [facility]11-18-2024 Evaluation + Plan note Diagnostic Tests Pending * T3 Free 05/10/24 Future Scheduled Tests Laboratory* Lab Miscellaneous-LC 07/24/23 [facility] [id number] History of Present illness Narrative* Deya Mcnulty MA - 03/08/2024 10:00 AM EDT Images from the original note were not included. Reason for Appointment: EMG Patient: Jessica Griffiths : 1985 EMG Computer: [employer] Referring Physician: Eber Potts NP EMG: BLE chlorinator operator: Deya Mcnulty CMA Office Location: [place] Reason for EMG: c/o leg pain and pressure. Back pain. Radiates in the hips, shooting pains down thelegs. Hx of back surgery. No Hx of DM, not taking blood thinners. Comments: Procedure explained to the patient who expressed understanding. documented in this encounterPike County Memorial HospitalDjgmglvpgw68-34-6533 History of Present illness Narrative* Marta Puente MD - 03/01/2024 8:30 AM EDT Subjective Patient ID: Jessica Griffiths is a [...] BY MOUTH IN THE MORNING AND 1 TO2 TABLETS AT BEDTIME oxybutynin XL (Ditropan-XL) 5 [...] by mouth in the morning and 1,000 mgbefore bedtime. No current facility-administered medications on file [...] for further routine US documented in this encounterPike County Memorial HospitalJpucbgncxq21-31-2989 Evaluation + Plan note Diagnostic Tests Pending * T3 Free 10/21/23 Future Scheduled Tests Laboratory* Lab Miscellaneous-LC 07/24/23 [facility]04-16-[facility] Hospital Discharge instructions Patient Education 10/07/2023 08:01:29 Urinary Tract Infection, Adult Urinary Tract Infection, Adult A urinary tract infection (UTI) is an infection of any part of the urinary tract. The urinary tractincludes the kidneys, ureters, bladder, and urethra. These organs make, store, and get rid of urinein the body. An upper UTI affects the [...] Treatment for this condition includes: Antibiotic medicine. Xpwj-pou-ukalojm medicines to treat discomfort. Drinking enough water to stay hydrated. If you have frequent infections or have other conditions such as a kidney stone, you may need to see a health care provider who specializes in the urinary tract (urologist). In rare cases, urinary tract infections can cause sepsis. Sepsis is a life- threatening condition that occurs when the body responds to an infection. Sepsis is treated in the hospital with IV antibiotics, fluids, and other medicines. Follow these instructions at home: Medicines Take fbof-gcg-tzdadyu and prescription medicines only as told by your health care provider. If you were prescribed an antibiotic medicine, take it as told by your health care provider. Do notstop using the antibiotic even if you start [...] told by your health care provider. Do notstop using the antibiotic even if you start to feel better. Keep all follow-up visits. This is important. This information is not intended to replace advice given to you by your health care provider. Make sure you discuss any questions you have with your health care provider. Document Revised: 01/19/2021 Document Reviewed: 01/19/2021 [employer] Patient Education 2022 [employer]Box. Follow Up Care 10/07/2023 07:28:28 With:Nancy MCKNIGHT MD, FAM Address: When: only if needed [facility] 02-12-2024 History of Present illness Narrative* Marta Puente MD - 08/04/2023 11:20 AM EST Subjective Patient ID: Jessica Griffiths is a [...] BY MOUTH IN THE MORNING AND 1 TO2 TABLETS AT BEDTIME oxybutynin XL (Ditropan-XL) 5 [...] Management per Dr Mcghee documented in this encounterPike County Memorial HospitalVuxbmnlnxl32-87-9292 Evaluation + Plan note Future Scheduled Tests Laboratory* Lab Miscellaneous-LC 07/24/23 Radiology* Echo Transthoracic Complete 07/24/23 [facility] 02-01-2024 Evaluation + Plan note Future Scheduled Tests Laboratory* Lab Miscellaneous-LC 07/24/23 [facility]01-26-[facility] Evaluation + Plan note Diagnostic Tests Pending * T3 Reverse, Serum 07/18/23 * Thyroid Perox.tpo Ab 07/18/23 * TgAb+Thyroglobulin,NIGEL or KELVIN 07/18/23 [facility]01-26-[facility] Hospital Discharge instructions Patient Education 07/18/2023 08:07:09 [...] vein, and images show how much iodine ispresent in the thyroid. Radioactive iodine uptake test [...] surgery. Follow these instructions at home: Take ulvj-kdn-zggvlrt and prescription medicines only as told by your health care provider. Do not use any products that contain nicotine or tobacco. These products include cigarettes, chewing tobacco, and vaping devices, such as e-cigarettes. If you need help quitting, ask your health careprovider. Follow any instructions from your health care provider about diet. You may be instructed to limit foods that contain iodine. Keep all follow-up visits. You will need to have blood tests regularly so that your health care provider can monitor your condition. Where to find more information [employer] [place] of Diabetes and Digestive and Kidney Diseases: [...] symptoms, such as unexplained weight loss, nervousness, inabilityto tolerate heat, or changes in your heartbeat. Treatment may include medicine to reduce the amount of thyroid hormone your body makes, radioiodinetherapy, surgery, or medicines to manage symptoms. This information is not intended to replace advice given to you by your health care provider. Make sure you discuss any questions you have with your health care provider. Document Revised: 08/02/2022 Document Reviewed: 08/02/2022 [employer] Patient Education 2022 [employer]Box. Follow Up Care 07/18/2023 07:34:13 With:Nancy MCKNIGHT MD, FAM Address: When: only if needed [facility] 12-30-2023 Evaluation + Plan note Diagnostic Tests Pending * T3 Free 06/21/23 Future Scheduled Tests Laboratory* CBC w/ Auto Diff 06/20/23 * Comprehensive Metabolic Panel 06/20/23 * Free T4 06/20/23 [facility]12-29-20[facility] Hospital Discharge instructions Patient Education 06/20/2023 21:07:29 Otitis Media With Effusion, Adult Otitis Media With Effusion, Adult Otitis media with effusion (OME) is inflammation and fluid (effusion) in the middle ear without having an ear infection. The middle ear is the space behind the eardrum. The middle ear is connected tothe back of the throat by a narrow [...] signs and symptoms of the condition. Your providerwill also do a physical exam to check [...] few weeks. Home care treatment may include: Zhoa-ekt-fhvawms pain relievers. A warm, moist cloth placed over the ear. Severe cases may require a procedure to insert tubes in the ears (tympanostomy tubes) to drain the fluid. Follow these instructions at home: Take cvqz-ioz-xzijuqu and prescription medicines only as told by [...] and recurrent acute ear infections (acute otitis media),which may require treatment. This information is not intended to replace advice given to you by your health care provider. Make sure you discuss any questions you have with your health care provider. Document Revised: 10/04/2021 Document Reviewed: 10/04/2021 [employer] Patient Education 2022 gBox. 06/20/2023 19:03:16 Thyroid Nodule Thyroid Nodule A thyroid nodule is an isolated growth of thyroid cells that forms a lump in the thyroid gland. Thethyroid gland is a butterfly-shaped gland found in the lower front of the neck. It sends chemical messengers (hormones) through the blood to all parts of the body. These hormones are important in regulating body temperature and helping the body use energy. Thyroid nodules are common. Most are not cancerous (are benign). You may have one nodule or severalnodules. There are different types of thyroid nodules. [...] or nodules. If a nodule is benign, treatmentmay not be necessary. Your health care provider may monitor the nodule to see if it goes away without treatment. If a nodule continues to grow, is cancerous, or does not go away, treatment may be needed. Treatment may include: Having a cystic nodule drained with a needle. Ablation therapy. In this treatment, alcohol is injected into the area of the nodule to destroy thecells. Ablation with heat may also be used. [...] in your thyroid nodule or nodules. Take vllw-lzh-pssvjjv and prescription medicines only as told by [...] provider. Document Revised: 04/22/2022 Document Reviewed: 04/22/2022 [employer] Patient Education 2022 gBox. Follow Up Care 06/20/2023 07:23:01 With:Nancy MCKNIGHT MD [facility] Address: [address] [place], [place] [id number]- When: Unknown [facility] 12-29-2023 Evaluation + Plan note Future Scheduled Tests Laboratory* T4 Total 06/20/23 * CBC w/ Auto Diff 06/20/23 * Comprehensive Metabolic Panel 06/20/23 * T3 Free 06/20/23 * T3 Uptake 06/20/23 * Thyroid Stimulating Hormone 06/20/23 * Free T4 06/20/23 [facility] 04-11-2023 NoteCONSULTATION CONSULTATION DATE: 10/01/2022 TO: Ruben Mcknight M.D. [...] our patients to inform us about any qixx-wbt-hcsdbrc medications or herbal remedies/nutritional supplements/alternative remedies. 2. [...] and treatment options with their primary care provider.[facility] HospitalTlkpxeup19-73-3215 Note CONSULTATION CONSULTATION DATE: 06/11/2022 CHIEF COMPLAINT: [...] patient understands and concurs. CC: Nancy Mcknight M.D.[facility] HospitalCvbkpsrk26-18-2539 NotePAIN MANAGEMENT CONSULTATION CONSULTATION DATE: 03/05/2022 HISTORY OF PRESENT ILLNESS: [...] a rhizotomy along this region. CC: Dr. Madsen [facility] HospitalEnbyzbvv73-17-3464 Evaluation note* Encounter Date Diagnosis Assessment Notes Treatment Notes Treatment Clinical Notes Dec, Spinal stenosis of l umbar region with neurogenic claudication (ICD- 10 - M48.062) Dec,pondylolisthesis at L5-S1 level (ICD-10 - M43.17)This is a patient who initially presented with chronic low back and leg pain for several years withno benefit with microdiscectomy and had moderate degenerative disc disease and some narrowing and retrolisthesis at L5-S1. She underwent an anterior lumbar interbody fusion. Placement of the right S3wmcic resulted in a possible injury to the [...] pain. Showed the patient on a cell phonehow to look up information on this subject. I have given her a referral to Dr. Summers.for further discussion of this I will follow her up on an as-needed basis [employer] Other 06-13-2022 Evaluation + Plan note Diagnostic Tests Pending * Insulin Level Total 12/03/21 * T3 Free 12/03/21 * FSH Level 12/03/21 Future Scheduled Tests Laboratory* COVID-19 ([facility] 07/13/21 [facility]05-19-2022 NoteCONSULTATION CONSULTATION DATE: 11/08/2021 This is [...] does plan on seeing Dr. Damon in [facility]. Activities that aggravate her neck are [...] of care and would like to proceed. [facility] Signed and Approved by: ISAURA KELLY . 11/12/2021 15:05:00[facility]01-21-2022 Evaluation + Plan note Future Scheduled Tests Laboratory* COVID-19 ([facility]) 07/13/21 [facility]10-26-2021 Evaluation note* Encounter Date Diagnosis Assessment [...] will discuss it again in 3 months. Mar,pinal stenosis of lumbar region with neurogenic claudication (ICD- 10 - M48.062) [employer] Other evaluation + Plan note Future Appointments Appointment Date:06/27/2023 07:30:00 AM Scheduled Provider: Location:.[facility] Appointment Type:US Thyroid/Neck/Chest () Appointment Date:06/27/2023 08:00:00 AM Scheduled Provider: [facility] Appointment Type:CV EKG () Appointment Date:07/29/2023 12:40:00 PM Scheduled Provider:Nancy MCKNIGHT MD Location:[facility] Appointment Type: Open Future Scheduled Tests Laboratory* UA With Cult Reflex 06/24/23 * CBC w/ Auto Diff 06/20/23 * Comprehensive Metabolic Panel 06/20/23 * Lipid Panel 06/24/23 * Free T4 06/20/23 Radiology* US Thyroid 06/27/23 [facility] Evaluation + Plan note Future Appointments Appointment Date:07/29/2023 12:40:00 PM Scheduled Provider:Nancy MCKNIGHT MD Location:[facility] Appointment Type: Open Future Scheduled Tests Laboratory* UA With Cult Reflex 06/24/23 * CBC w/ Auto Diff 06/20/23 * Comprehensive Metabolic Panel 06/20/23 * Lipid Panel 06/24/23 * Free T4 06/20/23 Radiology* US FNA w/ Guidance, first lesion 06/27/23 * NM Thyroid Imaging w/ Uptk Multiple [facility]23 [facility] Future Appointments Appointment Date:09/11/2023 08:00:00 AM Scheduled Provider: Location[facility] Appointment Type:CV Echo (FT) Diagnostic Tests Pending * T3 Free 09/10/23 * Thyrotropin Receptor Antibody, Serum 09/10/23 Future Scheduled Tests Laboratory* Lab Miscellaneous-LC 07/24/23 Radiology* Echo Transthoracic Complete 09/11/23 [facility] Other evaluation noteNo assessment information available Van [...] skin sensation documented in this encounter [facility] HealthcareEvaluation note* Diagnosis Onset Date Resolution Status Admit Date Cervical radiculopathy acuteSeptember 2024 8:13amLumbosacral radiculopathyacuteSeptember 2024 8:13amMigraine without aura and without status migrainosus, not intractable acuteSeptember 2024 8:13amMyalgiaacuteSeptember 2024 8:13amNeck pain acuteSeptember 2024 8:13amParesthesiasacuteSeptember 2024 8:13am [facility] Work Phone: History general Narrative - Reported* Type Description Date Medical History Breast augmentation Surgical HistoryLaproscopic SAMAN removal of Endometriosis Dr. McmillanCobipzi3995Ytnxfbfi HistoryLaproscopic removal of ruruhskhyvvhw6837Mftfmfxv HistoryCortisone injection and nerve ablations in fowm0482Xwjrtqkb Historysteroid injection/nerve ablation (back)2016Surgical Historybreast augmentationSurgical Historybreast implants [id number] HistoryLAVH/GGF7-89-87Tvckfjly HistoryMicro discectomy [id number] HistoryHysterectomy; total3Surgical History Micro discectomy L5-S15/2018Surgical HistoryALIF-Doctor BraunHospitalization Historysee surgical [facility] Whats[facility]exx Other Hospital course Narrative No data available for this section [facility] No data available for this section [facility] HospitalProgress note No data available for this section [facility] HospitalReason for referral (narrative)No reason for referral information availableTrinity Health System Work Phone: Summary Purpose Family History No Family History Records Found Relationship Condition Age at Onset Recorded Date/T rody Not Specified Healthy female adult Unknown fatherOsteoarthritisUnknownDegeneration of intervertebral discUnknown Relationship Condition Age at Onset Recorded Date/T rody mother Healthy female adult Unknown fatherOsteoarthritisUnknownDegeneration of intervertebral discUnknowngrandparent DeceasedUnknownMalignant neoplasm of colonUnknownMalignant neoplasmUnknown grandparentMalignant neoplasmUnknown Advance Directives No Advanced Directives Records FoundDocuments on File TypeDate RecordedPatient RepresentativeExplanationACP-Advance DirectiveACP-Power of [place] Advance Directive Response Recorded Date/ Time Advance Directives No September 02, 2 018 11:39am Advance Directive Response Recorded Date/ Time Advance Directives No September 02, 018 12:39pm Discharge Instructions * Instructions* Kathy Ghosh MD - 05/31/2020 Ibuprofen or Aleve as directed * Attachments The following attachments cannot be sent through Care Everywhere. * Chest Pain: Musculoskeletal (Puerto Rican) documented in this encounter Assessments Diagnosis Chest wall pain Painful respiration Reason for Referral Reason Evaluate and Treat C onsider for Dorsal Column Stimulator Diagnosis 1 Spondylolisthesis at L5-S1 level (M43.17) Referral Organization [facility] urosurgery Referring Provider First Name Ric Referring Provider Last Name Alejandrina Referring Provider Specialty Neurologica l Surgery Referred Organization Unknown Facility Referred Provider Mansoor Summers Referred Provider Specialty Pain Medicin e Referral Priority Routine Chief Complaint and Reason for Visit Chief Complaint Admit Date 6 month follow up March 21, 2025 8:13am Reason for Visit Admit Date Cervical radiculopathy March 21, 2 025 8:13am Lumbosacral radiculopathy February 8:13am Migraine without aura and wi thout status migrainosus, not intractable March 21, 2025 8:13am Myalgia March 21, 2025 8:13am Neck pain March 21, 2025 8:13am Paresthesias March 21, 2025 8:13am Additional Source Comments INFORMATION SOURCE (unrecogn ized section and content) DATE CREATED AUTHOR 01/14/2020 [facility] DATE CREATED AUTHOR AUTHOR'S ORGANIZ ATION 06/01/2020 [facility] DATE CREATED AUTHOR AUTHOR'S ORGANIZ ATION 11/06/2022 [facility] DATE CREATED AUTHOR AUTHOR'S ORGANIZ ATION 08/01/2023 [facility] DATE CREATED AUTHOR AUTHOR'S ORGANIZ ATION 05/12/2024 [facility] DATE CREATED AUTHOR AUTHOR'S ORGANIZ ATION 09/20/2024 [facility] DATE CREATED AUTHOR AUTHOR'S ORGANIZ ATION 12/31/2024 [facility] DATE CREATED AUTHOR AUTHOR'S ORGANIZ ATION 05/04/2025 [facility] Reason for Visit (unrecogniz ed section and content) ReasonCommentsChest Painintermittent chest pain under left breast started last night, few episodes today, lasting approx 30seconds, reports feeling more tired todayReasonCommentsThyroid NoduleFollow up biopsy 07/14/23ReasonCommentsMigraine Cervical RadiculopathyReasonCommentsMed RefillReasonCommentsThyroid NoduleFollow up ultrasoundReasonCommentsMigraineNeck Pain Care Team (unrecognized sect ion and content) Team Status: Active Member Role Status Dates Ruben Mcknight MD Primary Care Provider Active Team Status: Inactive Member Role Status Dates Ruben Mcknight MD Primary Care Provider Active Start: July 14, 2023 End: July 14, 2023Hidenis Puente Jr, MDAttending ProviderActiveStart: July 14, 2023 End: July 14, 2023Team MemberRelationshipSpecialtyStart DateEnd Date Nancy Mcknight MD [address] [place] [address] PCP - Xgbmimh78/15/23Team MemberRelationshipSpecialtyStart DateEnd Date Nancy Mcknight MD [address] [place] [address] PCP - Qariuwt71/15/23Team MemberRelationshipSpecialtyStart DateEnd Date Nancy Mcknight MD [address] [place] [address] PCP - Ltpshar36/15/23Team MemberRelationshipSpecialtyStart DateEnd Date Nancy Mcknight MD [address] [place] [address] PCP - Zfniqgi94/15/23Team MemberRelationshipSpecialtyStart DateEnd Date Nancy Mcknight MD [address] [address] PCP - Eovigkf02/15/23Team MemberRelationshipSpecialtyStart DateEnd Date Nancy Mcknight MD [address] [address] PCP - Obctetj43/15/23Team MemberRelationshipSpecialtyStart DateEnd Date Nancy Mcknight MD [facility] [address] [phone] PCP - Zxegwpn55/15/23Team MemberRelationshipSpecialtyStart DateEnd Date Nancy Mcknight MD [address] [place], [place] [address] [place] [address] PCP - Xdemnnr92/15/23Team MemberRelationshipSpecialtyStart DateEnd Date Nancy Mcknight MD [facility] [place] [address] PCP - Baycxco27/15/23Team MemberRelationshipSpecialtyStart DateEnd Date Nancy Mcknight MD [address] [place] [address] PCP - Yjjghre99/15/23 Petra Calle NP [address] [place] Nurse PractitionerNeurology09/20/24Team MemberRelationshipSpecialtyStart DateEnd Date Nancy Mcknight MD [address] [place] [address] [place] [phone] PCP - Bmgjxyl56/15/23 Petra Calle NP [address] [place] Nurse PractitionerNeurology09/20/24 Edwin Arambula DO [address] [place], [place] [id number] Referring PhysicianNeurology09/20/24 Team Status: Inactive Member Role Status Dates Ruben Mcknight MD Primary Care Provider Active Start: March 21, 2025 End: March 21ngsachin Calle APRNAtunique ProviderActiveStart: March 21, 2025 End: March 21, 2025Team MemberRelationshipSpecialtyStart DateEnd Date Nancy Mcknight MD PCP - Mlkrbep77/15/23 Petra Calle NP Nurse PractitionerNeurology09/20/24 Edwin Arambula DO [address] [place], [place] [id number] Referring PhysicianNeurology09/20/24Team MemberRelationshipSpecialtyStart DateEnd Date Nancy Mcknight MD PCP - Vpoenkh58/15/23 Petra Calle NP Nurse PractitionerNeurology09/20/24 Edwin Arambula DO [address] [place] [address] Referring PhysicianNeurology09/20/24 Goals (unrecognized section and content) Goals may [...] BE BASED ON THE PRIMARY CLINICAL RECORDS. [facility]. provides no warranty or guarantee of the accuracy or completeness of information in this document.
--- OUTSIDE RECORDS SUMMARY | 2025-05-11 08:01 | XMS_ITS | Clinical Summary ---
Author Organization [facility] Address [address] [place] [id number] Care Team Providers Care Peer Financial Counselor Name Role Phone Los Barrientos MD Primary Care Provi melinda Allergies Active AllergyReactionsCriticalityNoted DateCommentsAdhesive Tape (Rosins)Rash 09/07/2014 Rash from bandaids and tape. KxwikGhmx73/18/2015 Latex gloves. Medications MedicationSigDispense QuantityRefillsLast FilledStart DateEnd DateStatus Norethindrone Acet-Ethinyl Est (,) 1-20 mg-mcg per tablet Take 1 tablet by mouth once daily.Active ibuprofen (MOTRIN) 800 mg tablet Take 800 mg by mouth every 8 hours as needed. 07/17/2017Active traMADol (ULTRAM) 50 mg tablet TAKE 1 TABLET BY MOUTH THREE TIMES A DAY NEEDED MUST LAST 30 DAYS0 07/11/2017Active multivitamin with folic acid (THERA, ONE DAILY) 400 mcg Take 1 tablet by mouth once daily.Active cyclobenzaprine (FLEXERIL) 10 mg tablet Take 10 mg by mouth as needed.Active gabapentin (NEURONTIN) 300 mg capsule Take 300 mg by mouth as needed.Active acetaminophen 325 mg-caffeine 40 mg-butalbital 50 mg (FIORICET) per tablet afjhkmbbze-cukrslqpnutyd-xuvoufgu 50 mg-325 mg-40 mg tabletActive AIMOVIG AUTOINJECTOR 70 mg/mL AutoInjector INJECT 70MG BY SUBCUTANEOUS ROUTE ONCE A MONTH IN THE ABDOMEN, THIGH, OR OUTER AREA OF UPPER TAA153208/26/2018Active estradiol (ESTRACE) 1 mg tablet estradiol 1 mg tabletActive omeprazole (PRILOSEC) 20 mg capsule Take 1 capsule by mouth once daily.09/14/2018Active ondansetron (ZOFRAN) 4 mg tablet As dkocsg5107/06/2018Active valACYclovir (VALTREX) 1 gram tab Take 1 g by mouth once daily.10/03/2018Active Active Problems ProblemNoted DateDiagnosed DateBack pain07/25/2017Seasonal jkmgwlpot42/02/2018 Zetkuejmxsqlk53/02/2018 Family History Medical HistoryRelationCommentsLipidsFatherCancerMaternal GrandfathercolonBreast CancerMaternal GrandmotherRelationStatusCommentsFatherMaternal Grandfather Maternal Grandmother Social History Tobacco UseTypesPacks/DayYears UsedDateSmoking Tobacco: NeverSmokeless Tobacco: NeverAlcohol UseStandard Drinks/WeekCommentsYes0 (1 standard drink = 0.6 oz pure alcohol)sociallyArea Deprivation IndexAnswerDate RecordedNational Score (1-100), lower number is lower riskNot on file05/31/2020State Score (1-10), lower number is lower riskNot on file05/31/2020Data from: https://www.neighborhoodatlas.medicine.[facility].edu/. Last address used for calculationNot on file05/31/2020CommentsNoSex and Gender Information ValueDate RecordedSex Assigned at BirthNot on fileLegal NejUmwwlr22/02/2012 10:25 AM ESTGender IdentityNot on fileSexual OrientationNot on fileOccupation IndustryJob Start DateJob End DatereceptionistNot on fileNot on fileNot on file Last Filed Vital Signs Vital SignReadingTime TakenCommentsBlood Dqdmduvw898/77007/25/2017 12:58 PM EST Mpqwk405207/25/2017 12:58 PM QSEAzxynfgxjah72.7 ??C (98.1 ??F)09/19/2014 7:00 PM EDTRespiratory Eypc160607/25/2017 12:58 PM ESTOxygen Enxsteltxm78%09/19/2014 7:00 PM EDTInhaled Oxygen Concentration--Szqixl71.7 kg (147 lb)07/25/2017 12:58 PM LQMJfjpha404.6 cm (5' 6 )07/25/2017 12:58 PM ESTself report ht/wtBody Mass Index 23.7307/25/2017 12:58 PM EST Plan of Treatment Health MaintenanceDue DateLast DoneCommentsAnxiety Jbwwgmjkx74/16/2003Depression Drlyqisje22/16/2003HIV Fvaesexfv69/16/2003Hepatitis C Pnrqzimmq73/16/2003 DTaP,Tdap,Td Vaccine (1 - Tdap)2003Hepatitis B Vaccine (1 of 3 - 19+ 3- dose series)2003HPV Vaccine (1 - 3-dose SCDM series)2011Cervical Cancer Tchrawtfj04Mammogram Teedwqktn27/16/2025Covid-19 Vaccine (1 - 2024- season)2025Influenza Vaccine (#1)2025 Insurance Care Teams Team MemberRelationshipSpecialtyStart DateEnd Los Barrientos MD PCP - GeneralFamily Zsgmybbi84/16/14
--- NOTE | 2025-05-11 08:25 | PM.CN ---
Consult Note: HPI Data of Consult Patient: known to practice within the last 3 years Consult date: 05/11/25 Requesting Physician: Randi Potts NP Primary Care Provider: Non-Staff Physician, Consult Narrative Reason for consult: neck, right arm pain Narrative: 39yof who presents for assessment. notes worsening pain in neck and right arm, worsening headaches. continues in a series of provider directed home exercises >6 weeks, without significant benefit. uses gabapentin, tizanidine, tramadol. failed to benefit from prior right C6,7 TFESI. since last visit underwent cervical mri with results below. notes pain 4-5/10 pressure today increasing to 9/10 intermittently. notes increased pain with driving, lying, lifting, in the AM, doing hair, weather changes, and sleep. cc:: CC: Randi Potts NP Review of Systems ROS Status of ROS 10 or more systems reviewed and unremarkable except as noted in history and below [facility] Medical History Migraines ?G43.909 - Migraine, unspecified, not intractable, without status migrainosus (ICD-10) Chronic pharyngitis ?J31.2 - Chronic pharyngitis (ICD-10) Endometriosis determined by laparoscopy ?N80.9 - Endometriosis, unspecified (ICD-10) Hyperthyroidism ?E05.90 - Thyrotoxicosis, unspecified without thyrotoxic crisis or storm (ICD-10) Neck pain ?M54.2 - Cervicalgia (ICD-10) Low back pain ?M54.50 - Low back pain, unspecified (ICD-10) Numbness and tingling ?R20.0 - Anesthesia of skin (ICD-10) ?R20.2 - Paresthesia of skin (ICD-10) Surgical History S/P fine needle aspiration ?Z98.890 - Other specified postprocedural states (ICD-10) History of lumbar fusion ?Z98.1 - Arthrodesis status (ICD-10) H/O breast implant ?Z98.82 - Breast implant status (ICD-10) Hx of breast implants, bilateral ?Z98.82 - Breast implant status (ICD-10) Status post lumbar surgery ?Z98.890 - Other specified postprocedural states (ICD-10) H/O: hysterectomy ?Z90.710 - Acquired absence of both cervix and uterus (ICD-10) S/P T&A (status post tonsillectomy and adenoidectomy) ?Z90.89 - Acquired absence of other organs (ICD-10) Hx of laparoscopy ?Z98.890 - Other specified postprocedural states (ICD-10) H/O breast augmentation ?Z98.82 - Breast implant status (ICD-10) Meds Home Medications and Allergies Home Medications ?Medication ?Instructions ?Recorded ?Confirmed ?Type baclofen 10 mg tablet 10 mg PO BID 12/04/22 09/20/24 History tizanidine 4 mg tablet 4 mg PO .HS 12/04/22 09/20/24 History estradiol 2 mg tablet 2 mg PO DAILY 07/11/23 09/20/24 History oxcarbazepine 150 mg tablet 150 mg PO DAILY 07/11/23 09/20/24 History rimegepant 75 mg disintegrating 75 mg PO QDAY PRN migraine headache 01/14/24 09/20/24 History tablet (Nurtec ODT) gabapentin 300 mg capsule 300 mg PO BID #60 caps 02/04/24 09/20/24 Rx tramadol 50 mg tablet 50 mg PO TID PRN pain #90 tabs 06/08/24 09/20/24 Rx tramadol 50 mg tablet 50 mg PO TID PRN pain #90 tabs 09/01/24 09/20/24 Rx tramadol 50 mg tablet 50 mg PO TID PRN pain #90 tabs 10/21/24 Rx tramadol 50 mg tablet 50 mg PO TID PRN pain #90 tabs 12/10/24 Rx tramadol 50 mg tablet 50 mg PO BID PRN pain #60 tabs 03/02/25 Rx Allergies Allergy/AdvReac Type Severity Reaction Status Date / Time adhesive Allergy Rash Verified 09/20/24 10:26 latex Allergy Rash Verified 09/20/24 10:26 Exam Narrative Exam Narrative: Psych-alert and oriented x 3.? Attentive and appropriate, constitutionally normal, displays normal mood and affect per situation.? There are no obvious deficits in memory, reasoning, or intellect.? Skin-no obvious rashes, bruising, or erythema noted to the patient's area of pain.? Extremities-upper extremities are warm with minimal edema and palpable pulses. Cervical- tenderness to palpation noted in the cervical spine and paraspinal musculature.? Pain is elicited with flexion, extension, and lateral rotation of the cervical spine.? Range of motion is diminished due to pain. Facet loading maneuvers are positive.? Strength-unremarkable and within normal limits with the exception to the left triceps. Sensory-no notable sensory deficits in the bilateral upper extremities to touch or pinprick with the exception to decreased sensation to the right C5, 6, 7 dermatomal distribution.? Coordination remains intact.? Gait remains non-antalgic. Assessment and Plan Assessment and Plan (1) Cervical stenosis of spinal canal: Assessment and Plan: 05/02/25 cervical MRI with mild disc bulge at c6-7 causing mild bilateral foraminal narrowing. notable facet changes. otherwise unremarkable (2) Cervical spondylosis: (3) Cervical radiculopathy: Plan The patient has had over 3 months of moderate to severe neck and RUE pain with functional impairment and inadequate response to conservative care including NSAIDS (unless there are contraindication such as concurrent blood thinners), multiple oral or topical pain medications, and home exercise program/physical therapy.? Patient has completed >6 weeks of guided home exercise program and/or formal physical therapy program without relief of their symptoms.? I have reviewed the imaging of the cervical spine and no red flags were identified.? cervical MRI reviewed with patient. recommend she consider scs trial for chronic pain. when patient is ready she can call our office and we will refer to Dr Cha for evaluation and consideration of his team proceeding with scs trial/implant maintain medications, baclofen 10mg bid prn pain/spasms, tizanidine 4mg hs prn, gabapentin 300mg bid, tramadol 50mg tid prn moderate to severe pain f/u 3 months, sooner if needed
== END 2025-05-11 07:56 | disposition home or self-care (01) ==
LOC: PM 07:56
PROVIDERS: Visit Provider Nurse Practitioner
DX: M48.02 Spinal stenosis, cervical region (principal); M47.22 Other spondylosis with radiculopathy, cervical region
CPT/HCPCS: G0463